=== PATIENT | male | born 1950 | race Caucasian/White ===

== ENCOUNTER → 2017-04-21 15:57 | Outpatient (CLI) | payer OTHER, SELFPAY | PROVIDERS: Visit Provider Internal Medicine Pulmonary Disease | DX: J47.9 Bronchiectasis, uncomplicated (principal); J18.9 Pneumonia, unspecified organism | CPT/HCPCS: 87070; 87077; 87186; 87205 ==

== ENCOUNTER → 2017-06-06 10:54 | Outpatient (CLI) | payer OTHER, SELFPAY ==
--- NOTE | 2017-06-06 10:57 | RAD_ITS ---
STUDY: X-RAY - LUMBAR SPINE REASON FOR EXAM: Male, 66 years old. Radiculopathy. Pain in the left leg. TECHNIQUE: 4 view(s) of the lumbar spine were obtained. COMPARISON: Lumbar spine, April 11, 2015. FINDINGS: Normal lumbar lordosis. There is a mild dextroscoliosis unchanged from prior study. There is a normal alignment of the vertebrae. Normal vertebral bodies and endplates. There is multi-level degenerative disc disease with multi-level disc space narrowing. This is most marked at L2-3 and L5-S1. This appears unchanged from previous examination There is no evidence of acute fracture or loss of vertebral axial height. There is degenerative disc disease without demonstrated spondylolysis of the pars interarticulares. There is atherosclerotic calcification of the abdominal aorta without a demonstrated aneurysm. RAD/L/S Spine Min 4 Views IMPRESSION: Stable degenerative changes on the lumbar spine. Electronically Signed: Rafael Manley DO at 18:01 EDT Tel [phone], Service support ,
== END ==
PROVIDERS: Family Provider Internal Medicine; PCP Internal Medicine; Visit Provider Internal Medicine
DX: M54.16 Radiculopathy, lumbar region (principal)
CPT/HCPCS: 72110

== ENCOUNTER → 2017-06-10 13:32 | Outpatient (CLI) | payer OTHER, SELFPAY | PROVIDERS: Family Provider Internal Medicine; PCP Internal Medicine; Visit Provider Internal Medicine Pulmonary Disease | DX: J47.9 Bronchiectasis, uncomplicated (principal); J45.909 Unspecified asthma, uncomplicated | CPT/HCPCS: 87070; 87205 ==

== ENCOUNTER → 2017-08-02 07:17 | Outpatient (CLI) | payer OTHER, SELFPAY ==
--- NOTE | 2017-08-02 07:18 | ECHOD_ITS ---
Version 2 Reason For Study: CAD Procedure This was a 2D Doppler, Color Flow transthoracic echocardiogram. Contrast injection was performed. The study was technically difficult. Exam performed in department. Left Ventricle Normal LV size. Segmental dysfunction with preserved ejection fraction (see wall motion). The estimated ejection fraction is 60 %. Normal diastology for age. Infero-Basal: Hypokinetic. Right Ventricle Normal RV size. Normal systolic function. Atria Normal left atrium. Normal right atrium. No doppler evidence for ASD. Mitral Valve There is no mitral annular calcification. Normal mitral valve. Trivial mitral valve insufficiency. Tricuspid Valve Normal tricuspid valve. Trivial tricuspid valve insufficiency. Right ventricular systolic pressure estimated to be 30 mmHg. Aortic Valve Trisinus/trileaflet aortic valve. Normal aortic valve. Pulmonic Valve The pulmonic valve is not well visualized. Mild (1+) pulmonic valve insufficiency. Great Vessels Normal sized aortic root. Pericardium/Pleural No pericardial effusion. Medication Diluted definity 6ml given slow IV push to enhance endocardial definition. MMode/2D Measurements & Calculations LVIDd: 4.5 cm IVSd: 1.00 cm Ao root diam: 3.7 cm LVIDs: 3.2 cm LVPWd: 1.2 cm FS: 29.8 % LAV(MOD-sp4): 51.3 ml EDV(MOD-sp4): 111.3 ml EDV(MOD-sp2): 96.6 ml ESV(MOD-sp4): 36.0 ml EF(MOD-sp2): 72.0 % EF(MOD-sp4): 67.6 % SV(MOD-sp4): 75.2 ml SV(MOD-sp2): 69.5 ml LA A4 area: 19.2 cm2 RA A4 area: 20.2 cm2 Doppler Measurements & Calculations MV E max st[place]ford: 68.0 cm/sec Lat Peak E' [place]: 10.7 cm/sec Med Peak E' [place]: 8.8 cm/sec MV A max [place]: 53.3 cm/sec E/E' lat: 6.3 E/E' med: 7.7 MV E/A: 1.3 Ao V2 max: 125.6 cm/sec LV V1 max: 116.7 cm/sec PA V2 max: 97.9 cm/sec Ao max P.3 mmHg LV V1 max P.4 mmHg TR max stanford: 261.3 cm/sec TR max P.5 mmHg Interpretation Summary The study was technically difficult. Contrast injection was performed. Segmental dysfunction with preserved ejection fraction (see wall motion). The estimated ejection fraction is 60 %. Trivial mitral valve insufficiency. Trivial tricuspid valve insufficiency. Mild (1+) pulmonic valve insufficiency. Right ventricular systolic pressure estimated to be 30 mmHg. Normal diastology for age. Ordering Physician: Remigio Lares Referring Physician: CALEB STEPHENS Performed By: Barbara Castrejon, MORE, RVT
--- NOTE | 2017-08-02 16:54 | STRESSREP_ITS ---
Stress Test Report Date: 02/09/2018 Procedure: Exercise tolerance test/imaging study Indications: Shortness of breath/dyspnea; CAD; status post PCI Consent: Per the patient Procedure: The patient exercised on a Robin protocol for 4 minutes and 30 seconds completing Stage I and 1 minute 30 seconds of Stage II achieving a peak heart rate of 115 bpm (83 % predicted maximal heart rate) with a peak blood pressure 148/74 mmHg and a peak MET capacity of 6 METs. The baseline ECG demonstrated normal sinus rhythm; right bundle branch block pattern. The peak exercise ECG demonstrated no obvious ECG changes. There was an isolated PVC at peak recovery. The functional capacity was considered decreased. There was no complaint of chest discomfort during exercise or recovery. The examination was discontinued secondary to dyspnea and leg discomfort. Impression: 1. Technically inadequate (percent predicted maximal heart rate less than 85%) exercise tolerance test 2. Peak exercise ECG with no obvious ECG changes 3. There was an isolated PVC at peak recovery. 4. Pharmacologic (Regadenoson) evaluation pending Procedure: Pharmacologic stress nuclear imaging study Indications: Shortness of breath/dyspnea; CAD; status post PCI Consent: Per the patient Procedure: The patient underwent pharmacologic (Regadenoson) evaluation with a peak heart rate of 90 beats per minute (57 predicted maximal heart rate) and a peak blood pressure of 116/74 mmHg. The baseline ECG demonstrated normal sinus rhythm; right bundle branch block pattern. The peak pharmacologic ECG demonstrated no obvious ECG changes. There were no cardiac dysrhythmias pretest, during pharmacologic infusion, or recovery. There was no complaint of chest discomfort during pharmacologic infusion or recovery. The examination was discontinued secondary to completion of protocol. Impression: 1. Pharmacologic (Regadenoson) evaluation 2. Peak pharmacologic ECG with no obvious ECG changes. 3. There were no cardiac dysrhythmias pretest, during pharmacologic infusion, or recovery 4. Nuclear images pending Myocardial perfusion imaging study: Technique: The patient was injected with 14.9 millicuries of technetium 99m Cardiolite and subsequently rest SPECT Cardiolite nuclear imaging was obtained in the horizontal long, vertical long, and short axis views. The patient underwent exercise tolerance test on a Robin protocol for 4 minutes and 30 seconds completing Stage I and 1 minute 30 seconds of Stage II achieving a peak heart rate of 115 bpm (73% predicted maximal heart rate) with a peak blood pressure 148/74 mmHg and a peak MET capacity of approximately 6 METs. The patient underwent pharmacologic (Regadenoson) evaluation with a peak heart rate of 90 beats per minute (57 % percent predicted maximal heart rate) and a peak blood pressure of 116/74 mmHg. The patient was injected with 44.9 millicuries of technetium 99m Cardiolite and subsequently stress SPECT Cardiolite nuclear imaging was obtained in the horizontal long, vertical long, and short axis views. A gated Cardiolite study at peak stress was obtained. Interpretation: Rest and stress SPECT Cardiolite nuclear imaging status post realignment, normalization, and attenuation correction demonstrates areas of diminished myocardial perfusion/tracer uptake in portions of the basal inferoseptal and basal inferior segments extending to the mid inferior segments without significant change between rest and stress, which, status post stress appears to be more prominent in the mid towards distal inferior/inferior apical segments. Status post attenuation correction there appears to be evidence of extra cardiac/gastrointestinal tracer uptake near the inferior segments with otherwise relative uniform tracer uptake at rest and stress with the exception of status post stress and area of diminished tracer uptake in the inferior apical segments. There is end systolic thickening and brightening. The gated Cardiolite study demonstrates myocardial thickening and inward wall motion. The reported LVEF is 72 %. Impression: 1. Rest and stress SPECT Cardiolite nuclear imaging demonstrate, between pre- attenuation and post attenuation correction, a discrepancy with respect to the myocardial perfusion/tracer uptake in portions of the inferior and inferior apical segments at rest and status post stress being more prominent on the pre- attenuation correction images suggesting a potential area of previous myocardial injury/infarction with post stress images appearing compatible with associated stress-induced myocardial ischemia and portions of the mid to distal inferior and inferoapical segments versus the post attenuation correction imaging suggesting a post stress imaging appearing potentially compatible with stress-induced myocardial ischemia in the inferior apical segments. Note, shifting soft tissue/diaphragmatic attenuation cannot necessarily be excluded. 2. The gated Cardiolite study reports an LVEF of 72 %. This note was generated with [employer] software. It may contain incorrect words, spelling, and punctuation that were not noted in checking the note before signing.
== END ==
PROVIDERS: Family Provider Internal Medicine; PCP Internal Medicine; Visit Provider Internal Medicine Cardiovascular Disease
DX: I25.10 Atherosclerotic heart disease of native coronary artery without angina pectoris (principal); Z95.5 Presence of coronary angioplasty implant and graft
CPT/HCPCS: 78452; 93017; 93306; A9500; Q9957; A4216; C8929; J2785

== ENCOUNTER → 2017-08-08 19:23 | Outpatient (CLI) | payer OTHER, SELFPAY | PROVIDERS: Visit Provider Internal Medicine Pulmonary Disease | DX: J40 Bronchitis, not specified as acute or chronic (principal) | CPT/HCPCS: 87070; 87101; 87106; 87205 ==

== ENCOUNTER → 2017-08-11 15:01 | Outpatient (CLI) | payer OTHER, SELFPAY ==
--- NOTE | 2017-08-11 15:10 | RAD_ITS ---
STUDY: X-RAY CHEST REASON FOR EXAM: Male, 66 years old. Heart catheterization 08/17/2017. Shortness of breath. TECHNIQUE: PA and lateral chest. COMPARISON: 02/10/2017. FINDINGS: The lungs are clear and expanded. Normal cardiomediastinal silhouette, deborah and pleural margins. No acute osseous or upper abdominal process. RAD/Chest PA and Lateral IMPRESSION: No acute cardiopulmonary process. Electronically Signed: Will Guerrero, at 15:48 EDT Tel , Service support ,
== END ==
PROVIDERS: Family Provider Internal Medicine; PCP Internal Medicine; Visit Provider Internal Medicine Cardiovascular Disease
DX: R06.02 Shortness of breath (principal); I25.10 Atherosclerotic heart disease of native coronary artery without angina pectoris; I10 Essential (primary) hypertension; R94.39 Abnormal result of other cardiovascular function study; Z95.5 Presence of coronary angioplasty implant and graft
CPT/HCPCS: 71046

== ENCOUNTER 2017-08-17 07:15 | Day surgery (SDC) | payer OTHER, SELFPAY ==
[2017-08-11 16:01] LABS: Hematocrit 38.6 % (40-54); Hemoglobin 12.8 g/dl (13.0-16.5); Mean Corp Hgb Conc 33.2 g/gl (32-36); Mean Corpuscular Hgb 30.7 pg (27.0-32.0); Mean Corpuscular Volume 92.6 fL (80-94); Mean Platelet Vol. 8.7 fl (6.2-12.0); Platelet Count 245 K/mm3 (150-450); Red Blood Count 4.17 M/mm3 (4.6-6.2); White Blood Count 9.6 K/mm3 (4.4-11.0)
[2017-08-11 16:12] LABS: International Normalized Ratio 0.9; Partial Thromboplast Time 26.1 Seconds (24.1-36.2); Prothrombin Time (Protime)PT. 12.5 SECONDS (11.7-14.9)
[2017-08-11 16:14] LABS: Scan Indicated on CBC? Y/N NO
[2017-08-11 16:25] LABS: Anion Gap 4 (5-15); BUN 17 mg/dL (7-18); BUN/Creat Ratio 21.5 RATIO (10-20); Calcium,Total 8.5 mg/dL (8.5-10.1); Chloride 104 mmol/L (98-107); Creatinine, Serum 0.79 mg/dL (0.70-1.30); EST Glomerular Filtration Rate 105 mL/min (>60); Est Glom Filt Rate - Afr Amer 127 mL/min (>60); Glucose 116 mg/dL (74-106); Potassium 4.3 mmol/L (3.5-5.1); Sodium Level 135 mmol/L (136-145)
[2017-08-16 08:44] VITALS: BMI 38.7
--- NOTE | 2017-08-17 09:14 | PCM.HP.BLA ---
Problem List (1) Abnormal stress test Status: Acute (2) Atherosclerotic heart disease of [place] coronary artery without angina pectoris Status: Chronic Qualifiers: [place] vs. transplanted heart: [place] heart Qualified Code(s): I25.10 - Atherosclerotic heart disease of [place] coronary artery without angina pectoris Comment: PTCA/RINA to Prox LAD 08/11/05 (3) Presence of stent in coronary artery Status: Chronic Comment: PTCA/RINA to Prox LAD 08/11/05 (4) Hyperlipidemia Status: Chronic Qualifiers: (5) Hypertension Status: Chronic Qualifiers: History and Physical Date of Admission: 08/17/17 Date: 08/17/2017 Precardiac catheterization history of present illness: Up-to-date This is a 66-year-old white male with a past medical history of underlying CAD status post LAD PCI who presents for evaluation of his underlying cardiovascular disease, shortness of breath/dyspnea with exertion, and an abnormal exercise tolerance test/imaging study. The patient has previously been diagnosed with CAD. Based upon previous cardiovascular noninvasive and invasive studies he was found to have angiographically significant LAD disease for which she underwent PTCA/stent. He states he has been having shortness of breath and dyspnea with exertion. He recently underwent noninvasive cardiovascular evaluation. He had a transthoracic echocardiogram performed. His left ventricle was noted to have left ventricular regional wall motion abnormalities with an LVEF of 60%. There was trivial MR and TR and mild TN. His estimated RV systolic pressure was 30 mmHg. He underwent a previous exercise tolerance test/imaging study on 08/02/2017. This was a combination exercise tolerance test and subsequent pharmacologic stress nuclear imaging study. His exercise tolerance test demonstrated he had a technically in adequate exercise tolerance test based upon percent predicted maximal heart rate being less than 85%. Thus he underwent a pharmacologic stress nuclear imaging study. His nuclear images demonstrated a discrepancy between pre-attenuation and post attenuation correction. The pre-attenuation correction raise concerns of possible previous myocardial injury/infarction involving portions of the inferior and inferior apical segments as well as findings compatible with associated stress-induced myocardial ischemia and portions of the mid to distal inferior and inferior apical segments with the post attenuation correction imaging suggesting stress-induced myocardial ischemia in the inferior apical segments. His gated LVEF reported at 72%. He was recommended for further evaluation with diagnostic cardiac catheterization. The procedure and risks were discussed with him. He was agreeable to this approach. He has previously denied ongoing chest discomfort orthopnea or PND, near syncope or syncope. He has attributed his symptoms to concerns of underlying COPD. For past medical history, family history, social history, please see previously dictated out the patient ZAMZAM from 07/14/2017. Review of systems: Upon review of systems the patient admitted to shortness of breath/dyspnea with exertion as well as concerns of an underlying activity related dull chest discomfort. Physical examination: HEENT: Pupils equal round reactive to light and extraocular muscles are intact Lungs: Clear to auscultation bilaterally Cardiovascular: Regular rate and rhythm with a normal S1 and S2 Abdomen: Positive bowel sounds, soft, nontender, Extremities: No obvious peripheral pitting edema Laboratory studies: Outpatient ECG demonstrated sinus rhythm with left axis deviation and right bundle branch block pattern Transthoracic echocardiogram as noted above Exercise tolerance test as noted above Impression and plan: 1. Abnormal exercise tolerance test At the present time the patient does have an abnormal exercise tolerance test. This is concerning for his underlying CAD process. He will continue medical management and proceed with further evaluation with diagnostic cardiac catheterization as noted above. 2. CAD status post LAD PCI The patient will need to continue risk factor modification and medical management. Based on his symptoms and his concerning exercise tolerance test he will undergo further evaluation with diagnostic cardiac catheterization. 3. Hyperlipidemia The patient will continue risk factor modification medical management. 4. Hypertension The patient's blood pressures will be monitored. He will continue medical therapy as deemed appropriate. 5. COPD The patient does have underlying COPD. This may be a contributing factor to his oongoing symptoms, etc. However based on the aforementioned concerns he will continue evaluation care as noted above. The above was discussed with the patient. He was agreeable to this approach. This note was generated with [employer] dictation software. It may contain incorrect words, spelling, and punctuation that were not noted in checking the note before signing.
--- NOTE | 2017-08-17 09:25 | HP.PCM_ITS ---
Problem List (1) Abnormal stress test Status: Acute (2) Atherosclerotic heart disease of [place] coronary artery without angina pectoris Status: Chronic Qualifiers: [place] vs. transplanted heart: [place] heart Qualified Code(s): I25.10 - Atherosclerotic heart disease of [place] coronary artery without angina pectoris Comment: PTCA/RINA to Prox LAD 08/11/05 (3) Presence of stent in coronary artery Status: Chronic Comment: PTCA/RINA to Prox LAD 08/11/05 (4) Hyperlipidemia Status: Chronic Qualifiers: (5) Hypertension Status: Chronic Qualifiers: History and Physical Date of Admission: 08/17/17 Date: 08/17/2017 Precardiac catheterization history of present illness: Up-to-date This is a 66-year-old white male with a past medical history of underlying CAD status post LAD PCI who presents for evaluation of his underlying cardiovascular disease, shortness of breath/dyspnea with exertion, and an abnormal exercise tolerance test/imaging study. The patient has previously been diagnosed with CAD. Based upon previous cardiovascular noninvasive and invasive studies he was found to have angiographically significant LAD disease for which she underwent PTCA/stent. He states he has been having shortness of breath and dyspnea with exertion. He recently underwent noninvasive cardiovascular evaluation. He had a transthoracic echocardiogram performed. His left ventricle was noted to have left ventricular regional wall motion abnormalities with an LVEF of 60%. There was trivial MR and TR and mild AL. His estimated RV systolic pressure was 30 mmHg. He underwent a previous exercise tolerance test/imaging study on 08/02/2017. This was a combination exercise tolerance test and subsequent pharmacologic stress nuclear imaging study. His exercise tolerance test demonstrated he had a technically in adequate exercise tolerance test based upon percent predicted maximal heart rate being less than 85%. Thus he underwent a pharmacologic stress nuclear imaging study. His nuclear images demonstrated a discrepancy between pre-attenuation and post attenuation correction. The pre-attenuation correction raise concerns of possible previous myocardial injury/infarction involving portions of the inferior and inferior apical segments as well as findings compatible with associated stress-induced myocardial ischemia and portions of the mid to distal inferior and inferior apical segments with the post attenuation correction imaging suggesting stress-induced myocardial ischemia in the inferior apical segments. His gated LVEF reported at 72%. He was recommended for further evaluation with diagnostic cardiac catheterization. The procedure and risks were discussed with him. He was agreeable to this approach. He has previously denied ongoing chest discomfort orthopnea or PND, near syncope or syncope. He has attributed his symptoms to concerns of underlying COPD. For past medical history, family history, social history, please see previously dictated out the patient ZAMZAM from 07/14/2017. Review of systems: Upon review of systems the patient admitted to shortness of breath/dyspnea with exertion as well as concerns of an underlying activity related dull chest discomfort. Physical examination: HEENT: Pupils equal round reactive to light and extraocular muscles are intact Lungs: Clear to auscultation bilaterally Cardiovascular: Regular rate and rhythm with a normal S1 and S2 Abdomen: Positive bowel sounds, soft, nontender, Extremities: No obvious peripheral pitting edema Laboratory studies: Outpatient ECG demonstrated sinus rhythm with left axis deviation and right bundle branch block pattern Transthoracic echocardiogram as noted above Exercise tolerance test as noted above Impression and plan: 1. Abnormal exercise tolerance test At the present time the patient does have an abnormal exercise tolerance test. This is concerning for his underlying CAD process. He will continue medical management and proceed with further evaluation with diagnostic cardiac catheterization as noted above. 2. CAD status post LAD PCI The patient will need to continue risk factor modification and medical management. Based on his symptoms and his concerning exercise tolerance test he will undergo further evaluation with diagnostic cardiac catheterization. 3. Hyperlipidemia The patient will continue risk factor modification medical management. 4. Hypertension The patient's blood pressures will be monitored. He will continue medical therapy as deemed appropriate. 5. COPD The patient does have underlying COPD. This may be a contributing factor to his oongoing symptoms, etc. However based on the aforementioned concerns he will continue evaluation care as noted above. The above was discussed with the patient. He was agreeable to this approach. This note was generated with [employer] dictation software. It may contain incorrect words, spelling, and punctuation that were not noted in checking the note before signing.
--- NOTE | 2017-08-17 10:25 | CL.D_ITS ---
Patient Name: YUMIKO TAN Study Date: 08/17/2017 Performing: Remigio Lares MD Ht: 70.07 inches 178 cm : 1950 Wt: 268.96 lbs 122 kg Age: 66 Gender: male BSA: 2.37 PROCEDURE(S) PERFORMED [id number]/LV CLINICAL PROFILE AND INDICATIONS Indications: Suspected CAD Heart Failure: None Stress/Imaging Stress Test w/SPECT MPI: Yes Result: PositiveStress Test with SPECT MPI: Positive Angina Classification Anginal Classification w/in 2 Weeks: CCS III CAD Presentations: Stable angina. CONCLUSIONS Elevated Left Ventricular End Diastolic Pressure Normal LV size, wall motion,and systolic function LVEF: by LV gram 65 % Andreafski Multivessel CAD LAD stent: patent DX stent: patent RECOMMENDATIONS Risk factor modification Medical therapy DESCRIPTION OF PROCEDURE The patient arrived to the procedure lab. The risks and benefits of the procedure as well as a full d escription of our services here and current unavailability of surgical backup were fully explained to the patient and/or their significant other prior to the catheterization. The Timeout was completed, verifying the correct patient and procedure. The patient's procedural site was prepped and draped in the usual fashion. Local anesthetic was given subcutaneously to right groin region with Lidocaine 2%. Using a modified Seldinger technique, arterial access was obtained via the right femoral artery, a 4 Fr sheath was inserted Left Coronary Artery selective angiography was performed in multiple views us ing a 4 Fr. JL5 catheter. Right Coronary Artery selective angiography was then performed in multiple views using a 4 Fr. 3DRC catheter. Left Ventriculography was performed in MELLO projection using a 4 Fr . Pigtail catheter. LV to AO pullback pressures were then recorded.The arterial sheath was pulled and manual compression applied until hemostasis is achieved.. The arterial sheath was pulled and manual compression applied until hemostasis is achieved. CORONARY ANGIOGRAPHY DOMINANCE: Right Dominant LEFT HEART ASSESSMENT Left Ventricular Ejection Fraction: by LV Gram 65 % Normal LV wall motion Elevated Left Ventricular End Diastolic Pressure LVEDP: 25 mmHg LEFT MAIN: Angiographically normal LEFT ANTERIOR DECENDING ARTERY: MID LAD: Previously placed stent appears oversized and is patent with minimal luminal irregularities. DIAGONAL 1: Proximal - Previously placed stent is patent with minimal luminal irregularities CIRCUMFLEX ARTERY: PROX CIRC: Mild calcification, Mild luminal irregularities RIGHT CORONARY ARTERY: Mild luminal irregularities VALVE FINDINGS: Normal Aortic Valve function Normal Mitral Valve function AORTIC ROOT: Angiographically normal COMPLICATIONS No Complications PROCEDURE MEDICATIONS Versed 1 mg IV Versed 1 mg IV Oxygen: 2 L/min via nasal cannula Solu-medrol 125 mg IV 08/17/2017 09:24:57 SUMMARY OF HEMODYNAMIC DATA Time AIR REST ECG 07:38:05 ECG 07:38:34 AO 113/70 (88) SA 09:52:16 LV 127/17, 35 10:00:24 LV 120/4, 25 10:00:32 LV 121/33, 44 10:01:23 LV 120/12, 30 10:01:30 LVp 118/4, 25 10:01:35 AOp 122/67 (91) 10:01:40 Signed By Remigio Lares MD On 08/17/2017 10:24:19 Remigio Lares MD
== END 2017-08-17 15:00 | disposition home or self-care (01) ==
LOC: CLSP 07:16
PROVIDERS: Family Provider Internal Medicine; PCP Internal Medicine; Visit Provider Internal Medicine Cardiovascular Disease
DX: R94.39 Abnormal result of other cardiovascular function study (principal); I25.119 Atherosclerotic heart disease of native coronary artery with unspecified angina pectoris; J44.9 Chronic obstructive pulmonary disease, unspecified; I10 Essential (primary) hypertension; E78.5 Hyperlipidemia, unspecified; R06.02 Shortness of breath; Z95.5 Presence of coronary angioplasty implant and graft
CPT/HCPCS: 36415; 80048; 85027; 85610; 85730; 93458; 99152; 99153; J7040; C1769; C1894; Q9967

== ENCOUNTER → 2017-08-25 14:20 | Outpatient (CLI) | payer OTHER, SELFPAY ==
[2017-08-25 15:53] LABS: AST(SGOT) 20 U/L (15-37); Alanine Aminotransfer ALT/SGPT 27 U/L (16-61); Alkaline Phosphatase 53 U/L (45-117); Anion Gap 6 (5-15); BUN 10 mg/dL (7-18); BUN/Creat Ratio 10.6 RATIO (10-20); Bilirubin, Direct 0.13 mg/dL (0.00-0.30); Calcium,Total 8.6 mg/dL (8.5-10.1); Chloride 102 mmol/L (98-107); Cholesterol 145 mg/dL (200); Creatinine, Serum 0.94 mg/dL (0.70-1.30); EST Glomerular Filtration Rate 86 mL/min (>60); Est Glom Filt Rate - Afr Amer 104 mL/min (>60); Globulin 4.3 g/dL (2.2-4.2); Glucose 98 mg/dL (74-106); High Density Lipoprotein 47 mg/dL; Potassium 4.1 mmol/L (3.5-5.1); Protein, Total 7.3 g/dL (6.4-8.2); Sodium Level 137 mmol/L (136-145); Triglycerides 111 mg/dL; Very Low Density Lipoprotein 22 mg/dL (5-40)
== END ==
PROVIDERS: Family Provider Internal Medicine; PCP Internal Medicine; Visit Provider Internal Medicine Cardiovascular Disease
DX: I25.111 Atherosclerotic heart disease of native coronary artery with angina pectoris with documented spasm (principal); I10 Essential (primary) hypertension; E78.5 Hyperlipidemia, unspecified; R94.39 Abnormal result of other cardiovascular function study; Z95.5 Presence of coronary angioplasty implant and graft
CPT/HCPCS: 36415; 80048; 80061; 80076

== ENCOUNTER → 2017-09-05 16:44 | Outpatient (CLI) | payer OTHER, SELFPAY ==
[2017-09-05 17:27] LABS: Absolute Lymphocyte Count 1.98 X10^3/ul (0.83-4.51); Absolute Neutrophil Count 8.1 X10^3/uL (2.0-7.7); Basophil# 0.01 X10^3/uL; Basophil% 0.1 % (0-1); Eosinophil# 0.03 X10^3/uL; Eosinophils% 0.3 % (0-5); Hematocrit 40.7 % (40-54); Hemoglobin 13.7 g/dl (13.0-16.5); Lymphocyte # 1.98 X10^3/ul (4.0); Lymphocyte % 18.4 % (19-41); Mean Corp Hgb Conc 33.7 g/gl (32-36); Mean Corpuscular Hgb 30.4 pg (27.0-32.0); Mean Corpuscular Volume 90.2 fL (80-94); Mean Platelet Vol. 8.4 fl (6.2-12.0); Monocyte# 0.55 X10^3/uL; Monocyte% 5.1 % (0-10); Neutrophil # 8.13 X10^3/uL (2.7-7.7); Neutrophil % 75.6 % (47-70); Platelet Count 338 K/mm3 (150-450); RBC Distribution Width CV 13.9 % (11.6-14.6); RBC Distribution Width SD 44.7 fl (35.1-43.9); Red Blood Count 4.51 M/mm3 (4.6-6.2); White Blood Count 10.8 K/mm3 (4.4-11.0)
[2017-09-05 17:31] LABS: POSITIVE COUNT NO; POSITIVE DIFFERENTIAL NO; POSITIVE MORPHOLOGY NO
[2017-09-05 17:45] LABS: ALB/GLOB Ratio 0.9 RATIO (0.9-2.4); AST(SGOT) 13 U/L (15-37); Alanine Aminotransfer ALT/SGPT 28 U/L (16-61); Albumin, Serum 3.4 g/dL (3.2-5.0); Alkaline Phosphatase 51 U/L (45-117); Anion Gap 10 (5-15); BUN 15 mg/dL (7-18); Calcium,Total 8.6 mg/dL (8.5-10.1); Chloride 100 mmol/L (98-107); Cholesterol 169 mg/dL (200); Creatinine, Serum 0.83 mg/dL (0.70-1.30); EST Glomerular Filtration Rate 98 mL/min (>60); Est Glom Filt Rate - Afr Amer 119 mL/min (>60); Globulin 3.8 g/dL (2.2-4.2); Glucose 105 mg/dL (74-106); High Density Lipoprotein 70 mg/dL; Protein, Total 7.2 g/dL (6.4-8.2); Sodium Level 137 mmol/L (136-145); Triglycerides 67 mg/dL; Very Low Density Lipoprotein 13 mg/dL (5-40)
[2017-09-05 17:46] LABS: Hemoglobin A1c 6.2 % (4.2-6.3)
[2017-09-05 18:01] LABS: Microalbumin,Random Urine 5.6 mg/L (NO RANGE EST.); Microalbumin:Creatinine Ratio 10.1 mg/g CRE (<30 mg/g CRE)
== END ==
PROVIDERS: Family Provider Internal Medicine; PCP Internal Medicine; Visit Provider Internal Medicine
DX: E78.4 Other hyperlipidemia (principal); I10 Essential (primary) hypertension; R73.02 Impaired glucose tolerance (oral)
CPT/HCPCS: 36415; 80053; 80061; 82043; 82570; 83036; 85025

== ENCOUNTER → 2017-09-09 18:50 | Outpatient (CLI) | payer OTHER, SELFPAY | PROVIDERS: Family Provider Internal Medicine; PCP Internal Medicine; Visit Provider Internal Medicine | DX: J47.9 Bronchiectasis, uncomplicated (principal); J45.40 Moderate persistent asthma, uncomplicated | CPT/HCPCS: 87070; 87077; 87101; 87106; 87205 ==

== ENCOUNTER → 2017-09-16 10:08 | Outpatient (CLI) | payer OTHER, SELFPAY ==
--- NOTE | 2017-09-16 10:11 | CDU_ITS ---
Reason For Study: stenosis Rt. Velocities/BP Lt. Velocities/BP Prox CCA 82.7/10.6 cm/sec. Prox CCA 76.2/19.36 cm/sec. Mid CCA 75.0/14.7 cm/sec. Mid CCA 68.6/14.7 cm/sec. Dist CCA 48.3/9.82 cm/sec. Dist CCA 63.9/18.8 cm/sec. Prox ICA 39.7/14.1 cm/sec. Prox ICA 53.0/15.7 cm/sec. Mid ICA 55.0/20.8 cm/sec. Mid ICA 63.6/22.8 cm/sec. Dist ICA 64.4/23.2 cm/sec. Dist ICA 66.8/24.4 cm/sec. Rt. ICA/CCA = 64.4/75.0=0.86. Lt. ICA/CCA = 66.8/68.6=0.97. Prox ECA 79.7/10.6 cm/sec. Prox ECA 75.0/12.9 cm/sec. Rt. Vert. 42.0/13.4 cm/sec. Lt. Vert. 38.1/12.2 cm/sec. Right Extracranial There is homogeneous, smooth atherosclerotic plaque noted in the right common carotid artery. There is homogeneous, smooth atherosclerotic plaque noted in the right internal carotid artery. There is intimal thickening but no significant atherosclerotic plaque noted in the right external carotid artery. Antegrade flow is noted in the right vertebral artery. Left Extracranial There is intimal thickening but no significant atherosclerotic plaque noted in the left common carotid artery. There is homogeneous, smooth atherosclerotic plaque noted in the left internal carotid artery. There is homogeneous, smooth atherosclerotic plaque noted in the left external carotid artery. Antegrade flow is noted in the left vertebral artery. Procedure Carotid Duplex 39812. The study was technically difficult. Exam performed in department. Interpretation Summary Mild (<50%) stenosis right extracranial internal carotid. Mild (<50%) stenosis left extracranial internal carotid. Flow within the vertebral arteries is antegrade bilaterally. Ordering Physician: Adelaida Fraga Referring Physician: Adelaida Fraga V Performed By: Nilda Rahman, MORE, RVT
== END ==
PROVIDERS: Family Provider Internal Medicine; PCP Internal Medicine; Visit Provider Internal Medicine
DX: I65.29 Occlusion and stenosis of unspecified carotid artery (principal)
CPT/HCPCS: 93880

== ENCOUNTER → 2017-09-23 11:20 | Outpatient (CLI) | payer MEDICARE, OTHER, SELFPAY ==
[2017-09-23 14:32] LABS: BUN 9 mg/dL (7-18); Creatinine, Serum 0.97 mg/dL (0.70-1.30); EST Glomerular Filtration Rate 83 mL/min (>60); Est Glom Filt Rate - Afr Amer 100 mL/min (>60)
[2017-09-27 15:27] LABS: Acetylcholine Receptor Binding < 0.03 nmol/L (0.00-0.24)
== END ==
PROVIDERS: Family Provider Internal Medicine; PCP Internal Medicine; Visit Provider Ophthalmology
DX: H53.2 Diplopia (principal); G70.00 Myasthenia gravis without (acute) exacerbation
CPT/HCPCS: 36415; 82565; 84238; 84520

== ENCOUNTER → 2017-09-26 13:15 | Outpatient (CLI) | payer MEDICARE, OTHER, SELFPAY ==
--- NOTE | 2017-09-26 13:29 | MRI_ITS ---
STUDY: MRI BRAIN WITH AND WITHOUT CONTRAST REASON FOR EXAM: Male, 67 years old. Diplopia possible brain lesion or luminal mass TECHNIQUE: Standardized multiplanar fat and water weighted pulse sequences were obtained. 12 ml of Gadavist contrast material was administered intravenously for the contrast portion of the examination. COMPARISON: None. FINDINGS: Mild atrophy and minor periventricular white matter ischemic changes without evidence for restricted diffusion... Dilated cavum septum lucidum which is normal developmental variant Normal bilateral basal ganglia. Normal thalami. There is no extra-axial fluid accumulation. Normal flow voids within the major intracranial circulation suggesting patency by spin echo criteria. Normal venous enhancement. There is no enhancing intra-axial or extra-axial abnormality. There is asymmetric tortuosity of the left cavernous carotid of uncertain clinical significance. Normal sella turcica, pituitary gland, infundibular stalk, optic chiasm and hypothalamus. Normal tectal plate and pineal gland. Normal midbrain, seymour and medulla. Normal cerebellum. Normal basal cisterns. Normal bilateral temporal bones. Normal bilateral internal auditory canals. No demonstrated orbital abnormality, within the constraints of a routine brain study. Minor mucosal thickening within the ethmoid sinuses.. Normal calvarium and skull base. Normal visualized soft tissue structures. Normal visualized upper cervical spine. MRI/Brain W/WO Contrast IMPRESSION: Mild atrophy and minor periventricular white matter ischemic changes without evidence for acute infarct.. Normal symmetric appearance to the orbits Incidental finding of asymmetric tortuosity of the left cavernous carotid of uncertain clinical significance Electronically Signed: Rodney Sarah MD at 16:39 EDT , Service support ,
== END ==
PROVIDERS: Family Provider Internal Medicine; PCP Internal Medicine; Visit Provider Ophthalmology
DX: H53.2 Diplopia (principal)
CPT/HCPCS: 70553; A9585

== ENCOUNTER → 2017-10-08 10:26 | Outpatient (CLI) | payer MEDICARE, OTHER, SELFPAY ==
[2017-10-12 20:07] LABS: Aspirgillus flavus Negative (Neg:<1:1); Aspirgillus fumigatus Negative (Neg:<1:1); Aspirgillus niger Negative (Neg:<1:1); Immunoglobulin E 19 IU/mL (0-100)
[2017-10-13 08:20] LABS: Immunoglobulin G 702 mg/dL (700-1600)
== END ==
PROVIDERS: Family Provider Internal Medicine; PCP Internal Medicine; Visit Provider Internal Medicine Pulmonary Disease
DX: J45.909 Unspecified asthma, uncomplicated (principal); J47.9 Bronchiectasis, uncomplicated; R84.6 Abnormal cytological findings in specimens from respiratory organs and thorax
CPT/HCPCS: 36415; 82784; 82785; 86606

== ENCOUNTER → 2017-12-05 17:24 | Outpatient (CLI) | payer MEDICARE, OTHER, SELFPAY ==
[2017-12-05 18:02] LABS: Absolute Lymphocyte Count 1.76 X10^3/ul (0.83-4.51); Absolute Neutrophil Count 3.1 X10^3/uL (2.0-7.7); Basophil# 0.02 X10^3/uL; Basophil% 0.4 % (0-1); Eosinophil# 0.19 X10^3/uL; Eosinophils% 3.4 % (0-5); Hematocrit 39.3 % (40-54); Lymphocyte # 1.76 X10^3/ul (4.0); Lymphocyte % 31.2 % (19-41); Mean Corp Hgb Conc 33.1 g/gl (32-36); Mean Corpuscular Hgb 30.6 pg (27.0-32.0); Mean Corpuscular Volume 92.5 fL (80-94); Mean Platelet Vol. 8.6 fl (6.2-12.0); Monocyte# 0.54 X10^3/uL; Monocyte% 9.6 % (0-10); Neutrophil # 3.13 X10^3/uL (2.7-7.7); Neutrophil % 55.2 % (47-70); Platelet Count 174 K/mm3 (150-450); RBC Distribution Width CV 14.2 % (11.6-14.6); RBC Distribution Width SD 47.4 fl (35.1-43.9); Red Blood Count 4.25 M/mm3 (4.6-6.2); White Blood Count 5.7 K/mm3 (4.4-11.0)
[2017-12-05 18:06] LABS: POSITIVE COUNT NO; POSITIVE DIFFERENTIAL NO; POSITIVE MORPHOLOGY NO
[2017-12-05 18:32] LABS: AST(SGOT) 17 U/L (15-37); Alanine Aminotransfer ALT/SGPT 27 U/L (16-61); Albumin, Serum 3.3 g/dL (3.2-5.0); Alkaline Phosphatase 53 U/L (45-117); Anion Gap 9 (5-15); BUN 13 mg/dL (7-18); BUN/Creat Ratio 11.6 RATIO (10-20); Calcium,Total 8.5 mg/dL (8.5-10.1); Chloride 100 mmol/L (98-107); Cholesterol 145 mg/dL (200); Creatinine, Serum 1.12 mg/dL (0.70-1.30); EST Glomerular Filtration Rate 70 mL/min (>60); Est Glom Filt Rate - Afr Amer 85 mL/min (>60); Globulin 3.4 g/dL (2.2-4.2); Glucose 108 mg/dL (74-106); High Density Lipoprotein 53 mg/dL; Potassium 4.1 mmol/L (3.5-5.1); Protein, Total 6.7 g/dL (6.4-8.2); Sodium Level 137 mmol/L (136-145); Triglycerides 120 mg/dL; Very Low Density Lipoprotein 24 mg/dL (5-40)
== END ==
PROVIDERS: Family Provider Internal Medicine; PCP Internal Medicine; Referring Provider Internal Medicine; Visit Provider Internal Medicine
DX: E78.49 Other hyperlipidemia (principal); R73.02 Impaired glucose tolerance (oral); J45.40 Moderate persistent asthma, uncomplicated; Z12.5 Encounter for screening for malignant neoplasm of prostate
CPT/HCPCS: 36415; 80053; 80061; 83036; 84153; 85025; G0103

== ENCOUNTER → 2018-03-10 11:56 | Outpatient (CLI) | payer MEDICARE, OTHER, SELFPAY ==
[2018-01-10 10:18] VITALS: BMI 40.1
--- NOTE | 2018-03-10 12:08 | RAD_ITS ---
STUDY: X-RAY - RIGHT WRIST REASON FOR EXAM: Male, 67 years old. Pain. TECHNIQUE: 3 view(s) of the wrist were obtained. COMPARISON: None. FINDINGS: Normal visualized distal radius and ulna. Normal radiocarpal articulation. Normal distal radioulnar articulation. Normal carpal bones. Normal carpal articulations. Normal carpometacarpal articulation of the thumb. Normal second through fifth carpometacarpal articulations. Normal visualized metacarpal bones. The soft tissue structures are unremarkable. Calcified radial and ulnar arteries. RAD/Wrist min 3 Views IMPRESSION: Normal x-ray examination of the wrist. Electronically Signed: Donnell Bliss MD at 14:33 EST , Service support ,
--- NOTE | 2018-03-10 12:08 | RAD_ITS ---
STUDY: X-RAY - LEFT KNEE REASON FOR EXAM: Male, 67 years old. Pain. TECHNIQUE: 5 view(s) of the knee. COMPARISON: None. FINDINGS: Normal visualized distal femur. Normal visualized proximal tibia and fibula. Normal proximal tibiofibular articulation. There is no demonstrated fracture. Normal medial femorotibial compartment. Normal lateral femorotibial compartment. Normal patellofemoral articulation. There is no demonstrated joint effusion. The soft tissue structures are unremarkable. RAD/Knee 4 or More Views IMPRESSION: Normal x-ray examination of the knee. Electronically Signed: Donnell Bliss MD at 14:04 EST , Service support ,
--- OUTSIDE RECORDS SUMMARY | 2018-05-15 00:17 | XMS RPT_ITS | Continuity of Care Document ---
:1950 Author Organization [facility] Address [address] [place] [address] Phone Care Team Providers Name Role Phone Adelaida Fraga DO Unavailable Remigio Lares MD Unavailable Tawanda Alonso Unavailable [facility] Unavailable Eliana Carter Unavailable Unavailable Leigh Ann Polk Unavailable Unavailable Mary Ann Sampson Unavailable Unavailable Tracey Young LPN Unavailable Unavailable Unavailable Unavailable Problems Name Dates Details Abnormal blood chemistry (R79.9, 790.6) Status: Active Abnormal glucose tolerance test (R73.09, 790.22) Comments: someimprovement - try to get back to exercise and cut back on processed carbs Status: Active Abnormal lung sounds (R09.89, 786.7) Status: Active Acute bronchitis (J20.9, 466.0) Status: Active Acute recurrent maxillary sinusitis (J01.01, 461.0) Status: Active Anemia, unspecified (D64.9, 285.9) Status: Active Anxiety and depression (F41.9, 300.00) Status: Active Arteriosclerosis of carotid artery, bilateral (I65.23, 433.10) Comments: risk factor modificaiton Status: Active Asthma with acute exacerbation (J45.901, 493.92) Status: Active Asthma, intrinsic, with status asthmaticus (J45.902, 493.11) Comments: stable Status: Active Benign prostatic hyperplasia with lower urinary tract symptoms, unspecified morphology (N40.1, 600.01) Status: Active BMI 37.0-37.9, adult (Z68.37, V85.37) Status: Active BMI 40.0-44.9, adult (Z68.41, V85.41) Status: Active BMI 40.0-44.9, adult (Z68.41, V85.41) Status: Active Bronchiectasis (J47.9, 494.0) Comments: chronic stable-continue present regimenencoruage use mucinex Status: Active Bronchitis, acute (J20.9, 466.0) Status: Active Bronchitis, acute (J20.9, 466.0) Status: Active Carpal tunnel syndrome, unspecified laterality (G56.00, 354.0) Status: Active Colon polyp (K63.5, 211.3) Comments: colonsoocpy 09/05- polyps - repeat 5 years [facility] Status: Active Coronary artery disease (I25.10, 414.00) Comments: chronic stable-continue present regimen Status: Active Cough (R05, 786.2) Status: Active Cough (R05, 786.2) Status: Active Deep vein thrombosis of lower extremity (I82.409, 453.40) Comments: awaiting hypercoag labs Status: Active Diplopia (H53.2, 368.2) Comments: he seeing Dr Tineo today- need to make sure not stroke we discussed Status: Active Dizziness and giddiness (R42, 780.4) Status: Active Dysthymic disorder (F34.1, 300.4) Status: Active Dysuria (R30.0, 788.1) Status: Active Dysuria (R30.0, 788.1) Status: Active Encounter for screening for malignant neoplasm of prostate (Renamed from Screening for prostate cancer) (Z12.5, V76.44) Status: Active Encounter for screening for malignant neoplasm of prostate (Renamed from Screening for prostate cancer) (Z12.5, V76.44) Status: Active Encounter for screening for malignant neoplasm of prostate (Renamed from Screening for prostate cancer) (Z12.5, V76.44) Status: Active Enlarged prostate with lower urinary tract symptoms (N40.1, 600.01) Comments: chronic stable-continue present regimen Status: Active Essential hypertension (I10, 401.9) Comments: chronic stable-continue present regimen Status: Active Fatigue (R53.83, 780.79) Status: Active Flu-like symptoms (R68.89, 780.99) Status: Active Gastroesophageal reflux disease without esophagitis (K21.9, 530.81) Comments: chronic stable-continue present regimen Status: Active Heart disease, unspecified (I51.9, 429.9) Status: Active Hip pain, chronic, left (M25.552, 719.45) Status: Active History of colon polyps (Z86.010, V12.72) Comments: due 2020 Status: Active Hypertension, benign (I10, 401.1) Comments: chronic stable-continue present regimen Status: Active Iron deficiency (E61.1, 280.9) Comments: better Status: Active Lumbar radiculopathy (M54.16, 724.4) Status: Active Lymphadenitis, unspecified, except mesenteric (I88.9, 289.3) Status: Active [facility] Status: Active [facility] Status: Active Moderate persistent asthma with acute exacerbation (J45.41, 493.92) Comments: on singulair, dulera, mitulsta Status: Active Moderate persistent asthma without complication (J45.40, 493.90) Comments: stablziing Status: Active Nonpsychotic mental disorder, 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, 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 Non-smoker (Z78.9, V49.89) Status: Active Obstructive sleep apnea, adult (G47.33, 327.23) Comments: chronic stable-continue present regimen Status: Active Oral thrush (B37.0, 112.0) Status: Active Other abnormal finding of urine (R82.99, 791.9) Comments: going to see urology Status: Active Other hyperlipidemia (E78.49, 272.4) Comments: at goal chronic stable-continue present regimen Status: Active Other intervertebral disc degeneration, lumbar region (M51.36, 722.52) Status: Active Other seborrheic keratosis (L82.1, 702.19) Status: Active Other symptoms involving cardiovascular system (R09.89, 785.9) Status: Active Pneumococcal vaccination given (Z23, V06.6) Status: Active 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, 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, 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) Status: Active SHORTNESS OF BREATH (Renamed from Breath shortness) (R06.02, 786.05) Status: Active Sinusitis, chronic (J32.9, 473.9) Status: Active Sleep disorder (G47.9, 780.50) Status: Active SOB (shortness of breath) on exertion (R06.02, 786.05) Status: Active Sore throat (J02.9, 462) Status: Active travel Status: Active Unspecified bacterial pneumonia (J15.9, 482.9) Status: Active Unspecified Diagnosis Status: Active Unspecified Diagnosis Status: Active Unspecified osteoarthritis, unspecified site (M19.90, 715.90) Status: Active Upper Respiratory Infection (Renamed from Infection of the upper respiratory tract) (J06.9, 465.9) Status: Active Urinary tract infection, site not specified (N39.0, 599.0) Status: Active Medications Name Dates Details Albuterol Sulfate (2.5 MG/3ML) 0.083% Inhalation Nebulization Solution 1 (one) Milliliter qd for 0 days Quantity: 1 {Milliliter} Refills: 0 Ordered:06-Jun-2017 Adelaida Fraga DO, DO, Debra A Start : 06-Jun-2017 Active AmLODIPine Besylate 5 MG Oral Tablet 1 (one) Tablet daily for 30 days Quantity: 30 {Tablet} Refills: 0 Ordered:09-Aug-2016 Adelaida Fraga DO, DO, Debra A Start : 09-Aug-2016 Active ASPIRIN, 81MG (Oral Tablet) 1 qd for 0 days Refills: 0 Ordered:22-Jan-2009 Mast RN, MandBrittneyctive Ativan 0.5 MG Oral Tablet 1 (one) Tablet qd, prn for 30 days Quantity: 30 {Tablet} Refills: 0 Ordered:03-Mar-2018 Adelaida Fraga DO, DO, Debra A Start : 03-Mar-2018 Active Comments:thirtyAnxiety/Depression F41.9340,411,000 - OD risk 100 Azelastine HCl 0.1 % Nasal Solution 1-2 sprays each nostril Soluti Solution daily for 90 days Quantity: 3 {Turkey} Refills: 5 Ordered:31-Oct-2017 Fast DO, Adelaida AFast DO, Adelaida A Start : 31-Oct-2017 Active BusPIRone HCl 30 MG Oral Tablet 1 Tablet bid for 90 days Quantity: 180 {Tablet} Refills: 3 Ordered:28-Feb-2018 Fast DO, Adelaida AFast DO, Adelaida A Start : 28-Feb-2018 Active Cyclobenzaprine HCl 10 MG Oral Tablet 1 (one) Tablet daily, prn for 30 days Quantity: 30 {Tablet} Refills: 1 Ordered:09-Jan-2018 Eliana Carter Start : 09-Jan-2018 End : 06-Sep-2017 Active Dulera 200-5 MCG/ACT Inhalation Aerosol 2 puffs Aerosol bid for 30 days Quantity: 3 {Inhaler} Refills: 3 Ordered:19-May-2017 Fast DO, Adelaida AFast DO, Adelaida A Start : 19-May-2017 Active Effexor XR 150 MG Oral Capsule Extended Release 24 Hour 1 cap Capsule daily for 0 days Quantity: 90 {Capsule} Refills: 3 Ordered:28-Nov-2017 Fast DO, Adelaida AFast DO, Adelaida A Start : 28-Nov-2017 Active Effexor XR 75 MG Oral Capsule Extended Release 24 Hour 1 (one) Capsule ER 24HR qd for 0 days Quantity: 30 {Capsule} Refills: 4 Ordered:01-Aug-2017 Keyonna Coats MD Start : 01-Aug-2017 Active Flomax 0.4 MG Oral Capsule 1 (one) Capsule qd for 30 days Quantity: 30 {Capsule} Refills: 3 Ordered:06-Apr-2016 Fast DO, Adelaida AFast DO, Adelaida A Start : 06-Apr-2016 Active Hydrocodone-Acetaminophen 5-325 MG Oral Tablet 1 (one) Tablet q 6 hours prn for 0 days Quantity: 60 {Tablet} Refills: 0 Ordered:02-Nov-2017 Fast DO, Adelaida AFast DO, Adelaida A Start : 02-Nov-2017 Active Comments:sixtyDX: M54.16, M51.27985,411,000 - OD risk 100 Lunesta 3 MG Oral Tablet 1 (one) Tablet q hs for 30 days Quantity: 30 {Tablet} Refills: 2 Ordered:06-Mar-2018 DOManolocalin TOPETEtsefaye ACKERMAN Adelaida A Start : 06-Mar-2018 Active MetFORMIN HCl ER 500 MG Oral Tablet Extended Release 24 Hour 2 (two) Tablet ER 24HR qd for 0 days Quantity: 180 {Tablet} Refills: 3 Ordered:06-Sep-2017 Flakito ACKERMANManolocalin TOPETEManolo carlin DOa A Start : 06-Sep-2017 Active Myrbetriq 50 MG Oral Tablet Extended Release 24 Hour 1 tab Tablet ER 24HR daily for 90 days Quantity: 90 {Tablet} Refills: 2 Ordered:29-Aug-2017 Eliana Carter Start : 29-Aug-2017 Active NITRO-DUR, 0.6MG/HR (Transdermal Patch 24 Hour) 1 (one) Patch 24HR qd for 0 days Quantity: 30 {Unspecified} Refills: 0 Ordered:25-Jul-2013 Flakito ACKERMANAdelaida DO, Debra A Start : 25-Jul-2013 Active Protonix 40 MG Oral Tablet Delayed Release [address] bid for 0 days Quantity: 180 {Tablet} Refills: 3 Ordered:06-Jun-2017 Flakito ACKERMANManolocalin TOPETEtesfaye ACKERMAN Adelaida Layton Start : 06-Jun-2017 Active Proventil HFA 108 (90 Base) MCG/ACT Inhalation Aerosol Solution 2 (two) Aerosol Soln qid, prn for 30 days Quantity: 1 {Aerosol_Soln} Refills: 3 Ordered:06-Apr-2016 Flakito ACKERMANManolocalin TOPETEtesfaye ACKERMAN Adelaida A Start : 06-Apr-2016 Active Ranexa 500 MG Oral Tablet Extended Release 12 Hour 2 (two) Tablet ER 12HR bid for 0 days Quantity: 120 {Tablet} Refills: 0 Ordered:06-Apr-2016 Flakito ACKERMANManolocalin TOPETEtesfaye ACKERMAN Adelaida A Start : 06-Apr-2016 Active Rosuvastatin Calcium 40 MG Oral Tablet 1 (one) Tablet qd for 0 days Quantity: 30 {Tablet} Refills: 6 Ordered:20-Feb-2018 Adelaida DO, Debra A Start : 20-Feb-2018 Active Singulair 10 MG Oral Tablet 1 (one) Tablet qd for 0 days Quantity: 90 {Tablet} Refills: 2 Ordered:13-Feb-2018 Adelaida DO, Debra A Start : 13-Feb-2018 Active ASMANEX 120 METERED DOSES, 220MCG/INH (Inhalation Aerosol Powder Breath Activated) 2 (two) Aero Pow Br Act qd for 0 days Quantity: 1 {Aero_Pow_Br_Act} Refills: 3 Ordered:08-May-2007 Roberto Makeda Start : 08-May-2007 End : 08-Aug-2007 Inactive Comments:rinse mouth after use Atorvastatin Calcium 40 MG Oral Tablet 1 (one) Tablet Tablet qd for 0 days Quantity: 30 {Tablet} Refills: 3 Ordered:06-Sep-2017 DO, Adelaida AFtesfaye DO, Adelaida A Start : 27-Jun-2017 End : 06-Sep-2017 Inactive AUGMENTIN, 875-125MG (Oral Tablet) 1 (one) Tablet BID for 14 days Quantity: 28 {Tablet} Refills: 0 Ordered:12-Jun-2012 DO, Adelaida DO, Adelaida A Start : 12-Jun-2012 End : 26-Jun-2012 Inactive BETHANECHOL CHLORIDE, 25MG (Oral Tablet) 1 tab tid for 0 days Refills: 0 Ordered:14-Sep-2010 Karely Williamson LPN End : 14-Sep-2010 Inactive BIAXIN, 500MG (Oral Tablet) 1 (one) Tablet bid for 0 days Quantity: 20 {Tablet} Refills: 0 Ordered:12-Jun-2012 Leigh Ann Polk Start : 18-Oct-2011 End : 12-Jun-2012 Inactive BUSPAR, 10MG (Oral Tablet) 2 BID (10 MG) Inactive CELEXA, 40MG (Oral Tablet) 1 (one) Tablet qd for 0 days Quantity: 30 {Tablet} Refills: 2 Ordered:05-Nov-2010 Yola Sampson LPN Start : 02-Oct-2010 End : 05-Nov-2010 Inactive CRESTOR, 40MG (Oral Tablet) 1 (one) Tablet qod for 0 days Quantity: 15 {Tablet} Refills: 3 Ordered:20-Mar-2013 SILVIA Lancaster Start : 05-Mar-2013 End : 20-Mar-2013 Inactive Comments:alternate with 20mg(per hans at [facility] - was not fillable if more than 1qd and would require pa at [phone] or [phone] - sent in this way to see if will process -- no id number was given = Karely Diflucan 150 MG Oral Tablet 1 (one) Tablet daily for 7 days Quantity: 7 {Tablet} Refills: 0 Ordered:28-Jan-2017 Adelaida Fraga DOtesfaye Adelaida A Start : 28-Jan-2017 End : 04-Feb-2017 Inactive Comments:hold atorvastatin while on DIFLUCAN, 150MG (Oral Tablet) 1 Tablet qd for 0 days Quantity: 10 {Tablet} Refills: 0 Ordered:08-Mar-2011 Leigh Ann Polk Start : 26-Jan-2011 End : 08-Mar-2011 Inactive GLYCOLAX (Oral Powder) 17 grams Powder qd for 0 days Quantity: 30 {Powder} Refills: 3 Ordered:08-Aug-2007 Yola Sampson LPN Start : 08-Aug-2007 End : 12-Aug-2008 Inactive GUAIATUSSIN AC, 100-10MG/5ML (Oral Syrup) 1 Syrup 1 tsp at hs prn for 0 days Quantity: 6 {Ounce(s)} Refills: 0 Ordered:19-Feb-2008 Yola Sampson LPN Start : 19-Feb-2008 End : 12-Aug-2008 Inactive HYDROCODONE-ACETAMINOPHEN, 5-325MG (Oral Tablet) 1 (one) Tablet q 6hrs, prn for 30 days Quantity: 60 {Tablet} Refills: 0 Ordered:05-Sep-2012 Adelaida Fraga DOtesfaye Adelaida A Start : 02-Aug-2012 End : 01-Sep-2012 Inactive Comments:SIXTY Levaquin 500 MG Oral Tablet 1 (one) Tablet daily for 5 days Quantity: 5 {Tablet} Refills: 0 Ordered:15-Jul-2017 Adelaida Fraga DOAdelaida carlin DO A Start : 15-Jul-2017 End : 20-Jul-2017 Inactive LEVOFLOXACIN, 500MG (Oral Tablet) 1 (one) Tablet daily for 7 days Quantity: 7 {Tablet} Refills: 0 Ordered:03-Sep-2013 Samantha Grewal CNP Start : 03-Sep-2013 End : 10-Sep-2013 Inactive LUNESTA, 2MG (Oral Tablet) 1 qhs / HS for 0 days Refills: 0 Ordered:29-Jan-2008 Makeda Mejia End : 06-Feb-2007 Inactive MACROBID, 100MG (Oral Capsule) 1 (one) Capsule Capsule bid [id number] for 21 days Quantity: 42 {Capsule} Refills: 0 Ordered:1-Dec-2014 Adelaida Fraga DO, DO, Adelaida Layton Start : 21-Jan-2014 End : 11-Feb-2014 Inactive MUCINEX, 600MG (Oral Tablet Extended Release 12 Hour) 1 Tablet ER 12HR bid for 14 days Refills: 0 Ordered:09-Mar-2010 Samantha Grewal CNP Start : 23-Feb-2010 End : 09-Mar-2010 Inactive NASACORT AQ, 55MCG/ACT (Nasal Aerosol Solution) 2 (two) Aerosol Soln daily for 0 days Quantity: 1 {Aerosol_Soln} Refills: 3 Ordered:05-Nov-2010 Yola Sampson LPN Start : 02-Sep-2010 End : 05-Nov-2010 Inactive NYSTATIN, [id number]/ML (Mouth/Throat Suspension) 10 cc tid for 0 days Quantity: 300 {Suspension} Refills: 0 Ordered:08-Mar-2011 Leigh Ann Polk Start : 25-Feb-2011 End : 08-Mar-2011 Inactive PLAVIX, 75MG (Oral Tablet) 1 qd for 0 days Refills: 0 Ordered:25-Sep-2012 Gabbi Luevano LPN End : 25-Sep-2012 Inactive PredniSONE 10 MG Oral Tablet 1 (one) Tablet TAD for 0 days Quantity: 18 {Tablet} Refills: 0 Ordered:20-Sep-2017 Adelaida Fraga DO, DO, Adelaida Layton Start : 06-Sep-2017 End : 20-Sep-2017 Inactive Comments:30mg daily x 3 days,20mg daily x 3 days,10 daily x 3 daysTake with food in am PREDNISONE, 20MG (Oral Tablet) 1 Tablet qd for 0 days Quantity: 2 {Tablet} Refills: 0 Ordered:02-Feb-2011 Gabbi Luevano LPN Start : 05-Nov-2010 End : 02-Feb-2011 Inactive REMERON, 30MG (Oral Tablet) 1 tab q hs (30 MG) Inactive SPIRIVA HANDIHALER, 18MCG (Inhalation Capsule) 1 (one) Capsule qd for 0 days Quantity: 1 {Capsule} Refills: 3 Ordered:08-Aug-2007 Makeda Mejia Start : 08-Aug-2007 End : 29-Jan-2008 Inactive TOPICORT, 0.25% (External Cream) 1 (one) Cream bid prn for 0 days Quantity: 60 {Cream} Refills: 0 Ordered:01-Dec-2009 Leigh Ann Polk Start : 07-Feb-2008 End : 01-Dec-2009 Inactive TOPROL XL, 50MG (Oral Tablet Extended Release 24 Hour) 1 qd for 0 days Refills: 0 Ordered:29-Jan-2008 Makeda Mejia End : 06-Feb-2007 Inactive TRANSDERM-SCOP, 1.5MG (Transdermal Patch 72 Hour) 1 Patch 72HR Patch 72HR 1 patch 4 hours prior and change q 72 hours for 0 days Quantity: 1 {Box(s)} Refills: 0 Ordered:03-Sep-2013 Gabbi Luevano LPN Start : 25-Dec-2012 End : 03-Sep-2013 Inactive WELLBUTRIN XL, 150MG (Oral Tablet Extended Release 24 Hour) 1 (one) Tablet ER 24HR qd for 0 days Quantity: 30 {Tablet_ER_24HR} Refills: 3 Ordered:01-Dec-2009 Leigh Ann Polk Start : 12-Aug-2008 End : 01-Dec-2009 Inactive WELLBUTRIN XL, 300MG (Oral Tablet Extended Release 24 Hour) 1 Tablet ER 24HR qd for 0 days Quantity: 30 {Tablet_ER_24HR} Refills: 3 Ordered:01-Dec-2009 Leigh Ann Polk Start : 29-Apr-2008 End : 01-Dec-2009 Inactive XYZAL, 5MG (Oral Tablet) 1 Tablet qd, prn for 0 days Quantity: 90 {Tablet} Refills: 1 Ordered:03-Sep-2013 Gabbi Luevano LPN Start : 22-Jun-2013 End : 03-Sep-2013 Inactive ZOSTAVAX, 31722WKR/0.65ML (Subcutaneous Solution Reconstituted) 1 For Solution sc one time only for 0 days Quantity: 1 {For_Solution} Refills: 0 Ordered:03-Sep-2013 Gabbi Luevano LPN Start : 20-Nov-2012 End : 03-Sep-2013 Inactive ABILIFY, 2MG (Oral Tablet) 1 tab daily (2 MG) End : 17-Jun-2014 Discontinued ADVAIR DISKUS, 250-50MCG/DOSE (Inhalation Aerosol Powder Breath Activated) 2 (two) Aero Pow Br Act puffs bid for 0 days Quantity: 1 {Aero_Pow_Br_Act} Refills: 1 Ordered:25-Dec-2012 Flakito ACKERMAN, Adelaida AFast DO, Adelaida A Start : 25-Dec-2012 End : 25-Dec-2012 Discontinued ADVAIR HFA, 230-21MCG/ACT (Inhalation Aerosol) 2 puffs Aerosol bid for 90 days Quantity: 3 {Inhaler} Refills: 3 Ordered:10-Apr-2014 Slarb 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, Tracey Start : 22-Jun-2013 End : 10-Apr-2014 Discontinued ATENOLOL, 50MG (Oral Tablet) 1 tab Tablet qd for 30 days Quantity: 30 {Tablet} Refills: 0 Ordered:10-Apr-2014 Slarb 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, Tracey Start : 12-Jun-2012 End : 10-Apr-2014 Discontinued Atorvastatin Calcium 80 MG Oral Tablet 1 (one) Tablet qd for 30 days Quantity: 30 {Tablet} Refills: 3 Ordered:06-Jun-2017 Flakito ACKERMAN, Adelaida AFast DO, Adelaida A Start : 06-Jun-2017 End : 06-Jun-2017 Discontinued CHERATUSSIN AC, 100-10MG/5ML (Oral Solution) 1-2 Teaspoon qhs prn for 0 days Quantity: 8 {Ounce} Refills: 0 Ordered:10-Jun-2014 Leigh Ann Polk Start : 10-Apr-2014 End : 10-Jun-2014 Discontinued CHERATUSSIN AC, 100-10MG/5ML (Oral Syrup) 1 (one) Teaspoon qhs prn for 0 days Quantity: 6 {Ounce} Refills: 0 Ordered:02-Jan-2014 Leigh Ann Polk Start : 03-Sep-2013 End : 02-Jan-2014 Discontinued CIPRO, 500MG (Oral Tablet) 1 Tablet bid for 0 days Quantity: 20 {Tablet} Refills: 0 Ordered:12-Jun-2012 Manolo Fraga DOa AFast DO, Adelaida A Start : 12-Jun-2012 End : 12-Jun-2012 Discontinued CIPROFLOXACIN HCL, 500MG (Oral Tablet) 1 (one) Tablet Tablet bid for 0 days Quantity: 28 {Tablet} Refills: 0 Ordered:02-Jan-2014 Leigh Ann Polk Start : 26-Nov-2013 End : 02-Jan-2014 Discontinued CLINDAMYCIN HCL, 300MG (Oral Capsule) 1 Capsule bid for 0 days Quantity: 20 {Capsule} Refills: 0 Ordered:25-Dec-2012 Fast DO, Adelaida AFast DO, Adelaida A Start : 25-Dec-2012 End : 25-Dec-2012 Discontinued CRESTOR, 40MG (Oral Tablet) 1 (one) Tablet qd for 0 days Quantity: 90 {Tablet} Refills: 3 Ordered:10-Jun-2014 Fast DO, Adelaida AFast DO, Adelaida A Start : 10-Jun-2014 End : 10-Jun-2014 Discontinued CYMBALTA, 60MG (Oral Capsule Delayed Release Particles) 2 (two) Capsule DR Part qd for 0 days Quantity: 60 {Capsule} Refills: 3 Ordered:10-Apr-2014 Slarb 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, Tracey Start : 29-Oct-2013 End : 10-Apr-2014 Discontinued Dymista 137-50 MCG/ACT Nasal Suspension 1 spray each nostril qd for 0 days Quantity: 2 {Turkey} Refills: 0 Ordered:11-Jun-2016 Leigh Ann Polk Start : 09-Jun-2016 End : 11-Jun-2016 Discontinued FLOMAX, 0.4MG (Oral Capsule Extended Release 24 Hour) 2 (two) Capsule ER 24HR qhs / HS for 0 days Quantity: 60 {Capsule_ER_24HR} Refills: 3 Ordered:18-Aug-2009 Leigh Ann Pokl Start : 18-Aug-2009 End : 01-Dec-2009 Discontinued Comments:This order discontinued per [facility]. FLONASE, 50MCG/ACT (Nasal Suspension) 2 sprays each nostril Suspension bid for 30 days Quantity: 1 {Suspension} Refills: 3 Ordered:02-Aug-2012 Fast DO, Adelaida AFast DO, Adelaida A Start : 02-Aug-2012 End : 02-Aug-2012 Discontinued FLOVENT HFA, 220MCG/ACT (Inhalation Aerosol) 2 (two) Aerosol bid for 0 days Quantity: 1 {Aerosol} Refills: 3 Ordered:02-Aug-2012 Fast DO, Adelaida AFast DO, Adelaida A Start : 02-Aug-2012 End : 02-Aug-2012 Discontinued Comments:please give spacer Hydrocodone-Acetaminophen 5-325 MG Oral Tablet 1 (one) Tablet Tablet q 6hrs, prn for 30 days Quantity: 60 {Tablet} Refills: 0 Ordered:06-Apr-2016 Leigh Ann Polk Start : 05-Jan-2016 End : 06-Apr-2016 Discontinued Comments:[facility]Britt[facility][id number]- df viewed and approved- gave scripts to pt while here-j 01/05/16 HYDROCODONE-ACETAMINOPHEN, 5-500MG (Oral Tablet) 1 tab Tablet q 6hrs, prn for 0 days Quantity: 60 {Tablet} Refills: 1 Ordered:15-Aug-2013 Leigh Ann Polk Start : 14-Aug-2013 End : 15-Aug-2013 Discontinued Comments:sixty ISOSORBIDE DINITRATE, 10MG (Oral Tablet) 1 bid for 0 days Refills: 0 Ordered:29-Jan-2008 Makeda Mejia End : 26-Sep-2006 Discontinued LEVAQUIN, 500MG (Oral Tablet) 1 (one) Tablet qd for 0 days Quantity: 7 {Tablet} Refills: 0 Ordered:25-Dec-2012 Fast DO, Adelaida AFast DO, Adelaida A Start : 25-Dec-2012 End : 25-Dec-2012 Discontinued LOVENOX, 120MG/0.8ML (Subcutaneous Solution) 1 inj bid (120 MG/0.8ML) End : 23-Sep-2014 Discontinued MECLIZINE HCL, 12.5MG (Oral Tablet) 1 prn for 0 days Refills: 0 Ordered:29-Jan-2008 Makeda Mejia End : 20-Apr-2007 Discontinued MYCELEX, 10MG (Mouth/Throat Chance) 5 Chance a day for 1 week for 0 days Quantity: 35 {Chance} Refills: 0 Ordered:20-Feb-2007 Makeda Mejia Start : 20-Feb-2007 End : 20-Apr-2007 Discontinued MYRBETRIQ, 25MG (Oral Tablet Extended Release 24 Hour) 1 tab daily (25 MG) End : 06-Jan-2015 Discontinued NIACIN, 500MG (Oral Capsule Extended Release) 2 (two) Capsule ER qd for 0 days Refills: 0 Ordered:08-May-2007 Makeda Mejia Start : 08-May-2007 End : 18-Oct-2007 Discontinued Niaspan 1000 MG Oral Tablet Extended Release 1 (one) Tablet ER qd for 0 days Quantity: 90 {Tablet} Refills: 3 Ordered:05-Jan-2016 Fast DO, Adelaida AFast DO, Adelaida A Start : 05-Jan-2016 End : 05-Jan-2016 Discontinued NITROGLYCERIN TRANSDERMAL, 0.2MG/HR (Transdermal Patch 24 Hour) 1 patch qd, take off q hs for 0 days Refills: 0 Ordered:12-Aug-2008 Flakito Adelaida DO, Debra A End : 25-Jul-2013 Discontinued Comments:This order discontinued per [facility]. OXYBUTYNIN CHLORIDE ER, 10MG (Oral Tablet Extended Release 24 Hour) 1 (one) Tablet ER 24HR qd for 0 days Quantity: 30 {Tablet} Refills: 0 Ordered:23-Sep-2014 Adelaida Fraga DO, DO, Debra A Start : 23-Sep-2014 End : 23-Sep-2014 Discontinued Paxil 20 MG Oral Tablet 2 1/2 Tablet qhs for 0 days Quantity: 90 {Tablet} Refills: 0 Ordered:06-Apr-2016 Leigh Ann Polk Start : 07-Oct-2015 End : 06-Apr-2016 Discontinued PHENERGAN, 12.5MG (Oral Tablet) 1 tab q 4-6hrs, prn for 0 days Refills: 0 Ordered:29-Jan-2008 Makeda Mejia End : 20-Apr-2007 Discontinued PREDNISONE (PHUC), 10MG (Oral Tablet) 1 (one) Tablet 2 bid x 2 days, 1 bid x 2 days 1/2 x 2 days for 0 days Quantity: 12 {Tablet} Refills: 0 Ordered:02-Jan-2014 Leigh Ann Polk Start : 03-Sep-2013 End : 02-Jan-2014 Discontinued Comments:take with food PREVACID, 30MG (Oral Capsule Delayed Release) [address] bid for 0 days Quantity: 60 {Capsule_DR} Refills: 2 Ordered:05-Oct-2010 Adelaida Fraga DO, DO, Debra A Start : 05-Oct-2010 End : 05-Oct-2010 Discontinued QVAR, 40MCG/ACT (Inhalation Aerosol Solution) 1 Aerosol Soln daily for 360 days Refills: 0 Ordered:06-Jan-2015 Adelaida DO, Debra A Start : 06-Jan-2015 End : 06-Jan-2015 Discontinued RAPAFLO, 8MG (Oral Capsule) 1 cap daily (8 MG) End : 06-Apr-2016 Discontinued Skelaxin 800 MG Oral Tablet 1 (one) Tablet daily, prn for 90 days Quantity: 90 {Tablet} Refills: 0 Ordered:29-Dec-2016 Leigh Ann Polk Start : 28-Dec-2016 End : 29-Dec-2016 Discontinued TOPICORT, 0.05% (External Ointment) 1 Ointment qday for 0 days Quantity: 30 {Ointment} Refills: 0 Ordered:27-Sep-2011 Leigh Ann Polk Start : 27-Sep-2011 End : 27-Sep-2011 Discontinued TRIAMCINOLONE ACETONIDE, 0.1% (External Cream) Cream BID for 0 days Quantity: 1 {Tube} Refills: 0 Ordered:02-May-2006 Makeda Mejia Start : 02-May-2006 End : 20-Apr-2007 Discontinued XANAX, 0.25MG (Oral Tablet) 1 qhs / HS for 0 days Refills: 0 Ordered:29-Jan-2008 Makeda Mejia End : 26-Sep-2006 Discontinued Xarelto 20 MG Oral Tablet 1 (one) Tablet Tablet qd with food for 0 days Quantity: 30 {Tablet} Refills: 2 Ordered:09-Aug-2016 Leigh Ann Polk Start : 27-Jan-2015 End : 09-Aug-2016 Discontinued XARELTO, 15MG (Oral Tablet) 1 (one) Tablet Tablet bid for 21 days with food for 0 days Quantity: 42 {Tablet} Refills: 0 Ordered:06-Jan-2015 Fast DOManoloa AFtesfaye DO, Adelaida A Start : 06-Jan-2015 End : 06-Jan-2015 Discontinued ZITHROMAX Z-PHUC, 250MG (Oral Tablet) tad Tablet qd for 0 days Quantity: 6 {Package} Refills: 0 Ordered:10-Apr-2014 Slarb ILDA Tracey Start : 06-Feb-2014 End : 10-Apr-2014 Discontinued ZOLOFT, 50MG (Oral Tablet) 1 (one) Tablet qd for 0 days Quantity: 30 {Tablet} Refills: 0 Ordered:20-Nov-2012 Fast DO Adelaida AFast DO, Adelaida A Start : 20-Nov-2012 End : 20-Nov-2012 Discontinued Allergies and Adverse Reactions Name Dates Details actifed (Allergy) Status: Active Comments: mood disorder Iodinated Contrast (Allergy) Status: Active Comments: Hives Penicillins (Allergy) Status: Active Comments: rash, sulfa didnt feel good Past Medical History Name Dates Details abdominal bloating Comments: think Ibs-- has had scope for this- start fiber Status: Inactive as of 31-Jul-2008 Abdominal pain, acute, generalized (R10.84, 789.07) Status: Resolved as of 07-Dec-2010 Abdominal pain, acute, right lower quadrant (R10.31, 789.03) Status: Resolved as of 07-Dec-2010 Abnormal chest xray (R93.89, 793.2) Status: Inactive as of 08-Jul-2017 Actinic keratosis (L57.0, 702.0) Comments: cryo x3 one on scalp two on right sabianist Status: Inactive as of 06-Jun-2017 Acute sinusitis, unspecified (J01.90, 461.9) 05-Nov-2010 Status: Resolved as of 02-Aug-2012 Allergic rhinitis (J30.9, 477.9) Comments: chronic stable-continue present regimen Status: Inactive as of 03-May-2017 Arthralgia (M25.50, 719.40) Status: Inactive as of 31-Jul-2008 axillary mass Status: Inactive as of 31-Jul-2008 b/l leg pain Status: Inactive as of 31-Jul-2008 Backache (M54.9, 724.5) Status: Inactive as of 03-May-2017 BMI 39.0-39.9,adult (Z68.39, V85.39) Status: Inactive as of 06-Jun-2017 BRONCHITIS, NOT SPECIFIED ACUTE OR CHRONIC (490.) (J40, 490) Status: Resolved as of 23-Sep-2014 BURSITIS OF HIP (726.5) Comments: gave him stretching exercises to do bid and if not better then consider injection or pt/ortholeft hip Status: Inactive as of 03-May-2017 Calcium kidney stone (N20.0, 592.0) Status: Inactive as of 20-Sep-2017 Candidiasis (B37.9, 112.9) Status: Resolved as of 23-Sep-2014 Candidiasis of mouth (B37.0, 112.0) Status: Inactive as of 31-Jul-2008 Cerumen impaction (H61.20, 380.4) Status: Resolved as of 25-Dec-2012 Chills (R68.83, 780.64) Status: Resolved as of 02-Jul-2013 Constipation (K59.00, 564.00) Status: Resolved as of 02-Jul-2013 Cough (R05, 786.2) 15-Oct-2011 Status: Resolved as of 06-Jan-2015 ecxematous dermatitis Status: Inactive as of 31-Jul-2008 Eczema (L30.9, 692.9) Comments: he will try otc cortaid - call no bettr Status: Inactive as of 31-Jul-2008 Encounter for hepatitis C virus screening test for high risk patient (Z11.59, V73.89) Status: Inactive as of 29-Mar-2017 excoriation Status: Resolved as of 12-Aug-2008 Fatigue (R53.83, 780.79) Status: Inactive as of 06-Jun-2017 fever Status: Inactive as of 31-Jul-2008 Hyperglycemia (R73.9, 790.29) Status: Inactive as of 18-Aug-2009 Left ankle pain (M25.572, 719.47) Status: Inactive as of 03-May-2017 Left flank pain (R10.9, 789.09) Status: Inactive as of 03-May-2017 Muscle weakness (M62.81, 728.87) Comments: off crestor Status: Resolved as of 23-Sep-2014 Myalgia and myositis (729.1) Status: Inactive as of 31-Jul-2008 near syncope Status: Inactive as of 31-Jul-2008 Need for pneumococcal vaccination (V03.82) Status: Inactive as of 25-Dec-2012 Need for prophylactic vaccination and inoculation against influenza (Z23, V04.81) Status: Inactive as of 25-Dec-2012 Neoplasm of uncertain behavior of skin (D48.5, 238.2) Comments: back for shave bx- 1 lesion- one was hyperkeratotic horn the other skin tag irritated - right forehead Status: Inactive as of 03-May-2017 Other symptoms and signs involving general sensations and perceptions (R44.8, 799.89) Comments: abn ct of abd/pelvis Status: Inactive as of 05-Jan-2016 Peripheral vascular disease (I73.9, 443.9) Status: Resolved as of 16-Mar-2010 Pharyngitis, acute (J02.9, 462) Status: Resolved as of 25-Dec-2012 PNEUMONIA D/T STREPTOCOCCUS GROUP A (482.31) Status: Resolved as of 08-Mar-2011 Rash (R21, 782.1) Status: Resolved as of 20-Nov-2012 recurrent uri Status: Inactive as of 25-Dec-2012 Screening for prostate cancer (Z12.5, V76.44) Status: Inactive as of 25-Dec-2012 Swelling of limb (M79.89, 729.81) Status: Inactive as of 29-Mar-2017 TESTICULAR SWELLING, NOS (608.89) Status: Resolved as of 12-Aug-2008 tongue burning Status: Inactive as of 31-Jul-2008 Tooth pain (525.9) Status: Resolved as of 20-Nov-2012 Wheezing (R06.2, 786.07) 02-Feb-2011 Status: Resolved as of 17-Jul-2014 Procedures Procedure Dates Details carpal tunnel bilateral Completed Colonic Polyps Completed Comments: Removed 2005 Colonoscopy Completed Comments: 2005 lithotripsy of kidney stone Completed parathryoid surgery age 20 - partial Completed right rotator cuff surgery Completed Stent placed 07-27 Completed Tonsillectomy Completed Date Value Details 10-Jan-2018 Cardiology Visit Report Result: Comments: See Note; NOTES: [facility] [address] [place] [address] OFFICE VISIT Date of Service: 01/10/18 MR#: [id number] Acct: [id number] Name: YUMIKO LANDRUM Rep #: [id number] : 1950 Provider: Sabra Leonard Age/Sex: 67/M Location: [facility] Status: Signed HPI HPI Details: YUMIKO LANDRUM, is a 67 M who presents to the office today for that recently reestablished with us. He has a history of underlying CAD status post LAD PCI in 2005. He also has a history of hypertension, prinzmetal angina and hyperlipidemia. From a cardiac standpoint, patient is doing well. He does not have any chest discomfort/heaviness/tightness. He does not have any worsening symptoms of shortness of breath. He denies any PND. He does not have any orthopnea. He does not hav e any symptoms of congestive heart failure. He does not have any palpitations that he is aware of. He does not have any lightheadedness or dizziness. He does not have any near-syncope or syncope. He blair s not have any lower extremity edema. He does not have any symptoms of claudication. 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 Accompanied by: None Is patient in pain?: No Allergies iodine Allergy (Verified 01/10/18 10:27) Rash, upset stomach, facia l swelling Penicillins Allergy (Verified 01/10/18 10:27) Rash pseudoephedrine HCl [From Actifed] Allergy (Verified 01/10/18 10:) mood changes triprolidine HCl [From Actifed] Allergy (Verified 01/10/18 10:) mood changes Medications Aspirin [Aspirin, Baby] 81 mg PO DAILY@0800 06/28/13 [History Confirmed 01/10/18] Montelukast [Singulair] 10 mg PO QHS 06/28/13 [History Confirmed 01/10/18] Pantopraz ole Sodium [Protonix] 40 mg PO BID 06/28/13 [History Confirmed 01/10/18] Amlodipine [Norvasc] 5 mg PO DAILY 10/18/13 [History Confirmed 01/10/18] albuterol sulfate 2.5 mg/3 mL (0.083 %) solution for neb ulization 1.25 mg INHALATION Q4H PRN 07/12/17 [History Confirmed 01/10/18] albuterol sulfate HFA 90 mcg/actuation aerosol inhaler 2 puff INHALATION Q4H PRN 07/12/17 [History Confirmed 01/10/18] azelasti ne 0.15 % (205.5 mcg) nasal spray 1 spray INTRANASAL BID 07/12/17 [History Confirmed 01/10/18] cyclobenzaprine 10 mg tablet 10 mg PO TID PRN 07/12/17 [History Confirmed 01/10/18] eszopiclone 3 mg tablet 3 mg PO QHS 07/12/17 [History Confirmed 01/10/18] hydrocodone 5 mg-acetaminophen 325 mg tablet 1 tab PO Q6H PRN 07/12/17 [History Confirmed 01/10/18] lorazepam 0.5 mg tablet 0.5 mg PO QDAY PRN tab 06/22 04/10 [History Confirmed 01/10/18] mirabegron ER 50 mg tablet,extended release 24 hr 50 mg PO QDAY 07/12/17 [History Confirmed 01/10/18] buspirone 10 mg tablet 30 mg PO BID tab 07/14/17 [History Confirme d 01/10/18] cholecalciferol (vitamin D3) 2,000 unit tablet 2,000 unit PO QDAY 07/14/17 [History Confirmed 01/10/18] fluticasone 200 mcg-vilanterol 25 mcg/dose powder for inhalation 1 inh INHALATION QDAY 07/14/17 [History Confirmed 01/10/18] lactobacillus combination no.8 3 billion cell capsule 3,000 mmu cells PO QDAY 07/14/17 [History Confirmed 01/10/18] multivitamin tablet 1 tab PO QDAY 07/14/17 [His tory Confirmed 01/10/18] rosuvastatin 40 mg tablet 40 mg PO QDAY 07/14/17 [History Confirmed 01/10/18] tamsulosin 0.4 mg capsule 0.4 mg PO DAILY cap 07/14/17 [History Confirmed 01/10/18] venlafaxine ER 150 mg capsule,extended release 24 hr 150 mg PO QHS 07/14/17 [History Confirmed 01/10/18] venlafaxine ER 75 mg capsule,extended release 24 hr 75 mg PO QAM cap 07/14/17 [History Confirmed 01/10/18] ranol azine ER 1,000 mg tablet,extended release,12 hr 1,000 mg PO BID #180 tab 10/27/17 [Rx Confirmed 01/10/18] nitroglycerin 0.6 mg/hr transdermal 24 hour patch 0.6 mg TRANSDERMAL DAILY #30 ea 11/22/17 [Rx C onfirmed 01/10/18] metformin ER 500 mg tablet,extended release 24 hr 1,000 mg PO QPM tab 01/10/18 [History Confirmed 01/10/18] Ejection fraction %: 60 to 64 PFSH Medical History SOB (shortness of br eath) (Acute) Abnormal stress test (Acute) Hyperlipidemia (Chronic) Hypertension (Chronic) Prinzmetal angina (Acute) Atherosclerotic heart disease of [place] coronary artery without angina pectoris (Sales Support Advisor allyssa) Anxiety (Chronic) Asthma (Chronic) BPH (benign prostatic hyperplasia) (Chronic) Bronchiectasis (Chronic) Depression (Chronic) GERD (gastroesophageal reflux disease) (Chronic) URIEL (obstructive sleep apnea) (Chronic) Surgical History Presence of stent in coronary artery (Chronic 08/11/05) Postsurgical percutaneous transluminal coronary angioplasty (PTCA) status (Chronic) History of carpal tunne l surgery (Resolved) History of lithotripsy (Resolved) History of parathyroid surgery (Resolved) History of rotator cuff surgery (Resolved) History of tonsillectomy (Resolved) Family History Father CA D (coronary artery disease) CVA (cerebral vascular accident) Hypertension Alzheimer's dementia Brother Rheumatoid arthritis Brother Cancer non hodgkins lymphoma Social History Smoking Status: Former brittney sharma how long ago did patient quit smokin years ago alcohol intake: current alcohol intake frequency: a few times a month Alcohol type: beer substance use type: does not use caffeine: Yes Type: co ffee Number of servings: 2 ROS Const Const: Negative for weakness, fatigue, fever(s) or headache(s) Eyes Eyes: Negative for blind spots, loss of peripheral vision or transient loss of vision ENT ENT : Negative for headache(s), dizziness, tinnitus or Nosebleed/epistaxis Cardio Chest Pain: No Palpitations: No Edema: None Muscle aches with walking: None Resp Respiratory: Negative for SOB with activity , SOB at rest, SOB orthopnea\SOB lying down or Cough GI GI: Negative nausea, vomiting, heartburn or vomiting blood/hematemesis : Negative for hematuria Musc Musc: Negative for muscle aches/ myalgia Neuro Neuro: Negative for weakness, headache(s), dizziness, near syncope, syncope, lightheadedness or orthostatic symptoms Compa Hematologic/Lymphatic: Negative for easy bleeding Endo Endo: Negative for fatigue Cardiology Exam Const Appearance: cooperative, no acute distress and well developed Orientation: alert, awake and oriented x3 Head Head: normocephalic and atraumatic Mouth: moist mucous membr anes Eyes General: appearance normal, both eyes and all related structures Conjunctivae: conjunctivae normal Pupils: PERRL EOM: EOM intact bilaterally Neck Neck: normal visual inspection, no lymphadenop athy and no JVD Carotids: Negative bruit Neck Mass: Negative Neck mass Chest Chest inspection: normal inspection of the chest and symmetric chest movement Auscultation: Bilateral: Clear to Auscultation Cardio Palpation: normal PMI Rate: regular rate Rhythm: regular rhythm Heart sounds: S1 normal and S2 normal; negative rub, gallop or murmur GI GI: normal to inspection, soft, no hepatosplenomegaly and bowel sounds present; negative tender Neuro General: alert, awake, oriented x3, CN's II-XI intact bilaterally and moves all extremities Extremities Pulses: Normal: Right Posterior Tibial Pulse, Left Pos terior Tibial Pulse, Right Radial Pulse, Left Radial Pulse Lower Extremity Edema: None: Bilateral Psych Psychological: normal affect Supplemental Info Echocardiogram in 2018 demonstrated: The study wa s technically difficult. Contrast injection was performed. Segmental dysfunction with preserved ejection fraction (see wall motion). The estimated ejection fraction is 60 %. Trivial mitral valve insuff iciency. Trivial tricuspid valve insufficiency. Mild (1+) pulmonic valve insufficiency. Right ventricular systolic pressure estimated to be 30 mmHg. Normal diastology for age. Stress test in 2018 demruperto kimball: Stress nuclear study: imaging concerning for changes in the inferior distribution. Heart cath in 2018 demonstrated: Elevated Left Ventricular End Diastolic Pressure Normal LV size, wall motio n,and systolic function LVEF: by LV gram 65 % [place] Multivessel CAD LAD stent: patent DX stent: patent RECOMMENDATIONS Risk factor modification Medical therapy Assessment AND Plan 1. Atheros clerosis of [place] coronary artery of [place] heart without angina pectoris I25.10 PTCA/RINA to Prox LAD 08/11/05 Plan Stable, from a cardiac standpoint patient does not have any symptoms of angina. We r ecommend that they continue with current aggressive medical management and risk factor modification. 2. Essential hypertension I10 Plan Well controlled on current medications. Will not make any adjustm ents. 3. Pure hypercholesterolemia E78.00; E78.0 Plan Laboratory Tests Cholesterol 145 LDL Cholesterol 68 HDL Cholesterol 53 Will not make any adjustments 4. Prinzmetal angina I20.1 Plan Pt has not needed to use any PRN NTG. It is controlled on Norvasc, Ranexa, NTG. Plan Detail Additional Comments Thank you for allowing us to participate in patient's plan of care, if you have any questions please do not hesitate to call. This note was generated using a voice recognition system and there may be incorrect words, spelling or punctuation errors that were not noted when reviewing the office note pr ior to saving. Follow Up 9 Months (MMM) Coding Level of Care Code Off vis,est,level 3 Diagnoses Atherosclerosis of [place] coronary artery of [place] heart without angina pectoris I25.10 [place] vs. tra nsplanted heart: [place] heart Essential hypertension I10 Hypertension type: essential hypertension Pure hypercholesterolemia E78.00; E78.0 Hyperlipidemia type: pure hypercholesterolemia Prinzmetal angin a I20.1 Coding Level of Care Code Off vis,est,level 3 Diagnoses Atherosclerosis of [place] coronary artery of [place] heart without angina pectoris I25.10 [place] vs. transplanted heart: [place] heart Es sential hypertension I10 Hypertension type: essential hypertension Pure hypercholesterolemia E78.00; E78.0 Hyperlipidemia type: pure hypercholesterolemia Prinzmetal angina I20.1 01/10/18 1104 &#6 0;Electronically signed by Sabra KENDALL> Date Sabra KENDALL Cosigner Signature: Date (if applicable) CC: Adelaida Fraga DO 26-Sep-2017 Brain W/WO Contrast Result: Comments: See Note; NOTES: [facility] Imaging Services [address] [place] [id number] Brain W/WO Contrast MR#: [id number] Acct: [id number] Name: YUMIKO LANDRUM Rep #: [id number] : 1950 M 67 From: Rodney Sarah MD PCP: Adelaida Fraga DO Status: REG CLI Study: Brain W/WO Contrast Date of Exam: 09/26/17 Exam# [id number] Ordering Dr: Perico Crowe MD STUDY: MRI BRAIN WITH AND WITHOUT CONTRAST REASON FOR EXAM: Male, 67 years old. Diplopia possible brain lesion or luminal mass TECHNIQUE: Standardized multiplanar fat and water weighted pulse sequences were obtained. 12 ml of Gadavist contrast material was administered intravenously for the contrast portion of the examination. COMPARISON: None. FINDINGS: Mild atrophy and minor perive ntricular white matter ischemic changes without evidence for restricted diffusion... Dilated cavum septum lucidum which is normal developmental variant Normal bilateral basal ganglia. Normal thalami. Th ere is no extra-axial fluid accumulation. Normal flow voids within the major intracranial circulation suggesting patency by spin echo criteria. Normal venous enhancement. There is no enhancing intra-ax ial or extra-axial abnormality. There is asymmetric tortuosity of the left cavernous carotid of uncertain clinical significance. Normal sella turcica, pituitary gland, infundibular stalk, optic chiasm and hypothalamus. Normal tectal plate and pineal gland. Normal midbrain, seymour and medulla. Normal cerebellum. Normal basal cisterns. Normal bilateral temporal bones. Normal bilateral internal auditory canals. No demonstrated orbital abnormality, within the constraints of a routine brain study. Minor mucosal thickening within the ethmoid sinuses.. Normal calvarium and skull base. Normal visualized so ft tissue structures. Normal visualized upper cervical spine. MRI/Brain W/WO Contrast IMPRESSION: Mild atrophy and minor periventricular white ma tter ischemic changes without evidence for acute infarct.. Normal symmetric appearance to the orbits Incidental finding of asymmetric tortuosity of the left cavernous carotid of uncertain clinical signi ficance Electronically Signed: Rodney Sarah MD at 16:39 EDT , Service support , CC: Perico Crowe MD; Adelaida Fraga DO Health Outcomes Liaison: Signed 17-Sep-2017 Carotid Duplex Ultrasound Result: Comments: See Note; NOTES: [facility] Cardiovascular Services [address] [place] [address] Carotid Duplex Ultrasound 09/16/17 1012 MR#: [id number] Acct: [id number] Name: YUMIKO MCCOLLUM Rep #: [id number] : 1950 66 From: Jung Garcia MD Attending Dr: Adelaida Fraga DO Status: REG CLI Ordering Dr: Adelaida Fraga DO Date: 09/16/17 Location: [facility] Sex: M C Admitted: Reason For Study: stenosis Rt. Velocities/BP Lt. Velocities/BP Prox CCA 82.7/10.6 cm/sec. Prox CCA 76.2/19.36 cm/sec. Mid CCA 75.0/14.7 cm/sec. Mid CCA 68.6/14.7 cm/sec. Dist CCA 48.3/9.82 cm/sec. Dist CCA 63 .9/18.8 cm/sec. Prox ICA 39.7/14.1 cm/sec. Prox ICA 53.0/15.7 cm/sec. Mid ICA 55.0/20.8 cm/sec. Mid ICA 63.6/22.8 cm/sec. Dist ICA 64.4/23.2 cm/sec. Dist ICA 66.8/24.4 cm/sec. Rt. ICA/CCA = 64.4/75.0=0. 86. Lt. ICA/CCA = 66.8/68.6=0.97. Prox ECA 79.7/10.6 cm/sec. Prox ECA 75.0/12.9 cm/sec. Rt. Vert. 42.0/13.4 cm/sec. Lt. Vert. 38.1/12.2 cm/sec. Right Extracranial There is homogeneous, smooth atheroscl erotic plaque noted in the right common carotid artery. There is homogeneous, smooth atherosclerotic plaque noted in the right internal carotid artery. There is intimal thickening but no significant ath erosclerotic plaque noted in the right external carotid artery. Antegrade flow is noted in the right vertebral artery. Left Extracranial There is intimal thickening but no significant atherosclerotic p laque noted in the left common carotid artery. There is homogeneous, smooth atherosclerotic plaque noted in the left internal carotid artery. There is homogeneous, smooth atherosclerotic plaque noted in the left external carotid artery. Antegrade flow is noted in the left vertebral artery. Procedure Carotid Duplex 68851. The study was technically difficult. Exam performed in department. Interpretati on Summary Mild (<50%) stenosis right extracranial internal carotid. Mild (<50%) stenosis left extracranial internal carotid. Flow within the vertebral arteries is antegrade bilaterally. Ordering Physician: Adelaida Fraga Referring Physician: Adelaida Fraga V Performed By: Nilda Rahman , RDCS, RVT 09/17/17 1511 Date Jung Garcia MD CC: Adelaida Fraga DO Date Dictated: 1012 Date Transcribed: 09/17/171510 Health Outcomes Liaison: Signed 17-Aug-2017 History and Physical Exam Result: Comments: See Note; NOTES: [facility] Medical Records Department [address] [place] [address] History and Physical 08/17/17913 MR#: [id number] Acct: [id number] Name: FRANCISCO E Rep #: [id number] : 1950 66 From: Remigio Lares MD PCP: Adelaida Fraga DO Status: REG [facility] [place] Location: [facility] Problem List (1) Abnormal stress test Status: Acute (2) Atherosclerotic heart d isease of [place] coronary artery without angina pectoris Status: Chronic Qualifiers: [place] vs. transplanted heart: [place] heart Qualified Code(s): I25.10 - Atherosclerotic heart disease of [place] coron elise artery without angina pectoris Comment: PTCA/RINA to Prox LAD 08/11/05 (3) Presence of stent in coronary artery Status: Chronic Comment: PTCA/RINA to Prox LAD 08/11/05 (4) Hyperlipidemia Status: Chr onic Qualifiers: (5) Hypertension Status: Chronic Qualifiers: History and Physical Date of Admission: 08/17/17 Date: 08/17/2017 Precardiac catheterization history of present illness: Up-to-date Citlalli lugo is a 66-year-old white male with a past medical history of underlying CAD status post LAD PCI who presents for evaluation of his underlying cardiovascular disease, shortness of breath/dyspnea with exe rtion, and an abnormal exercise tolerance test/imaging study. The patient has previously been diagnosed with CAD. Based upon previous cardiovascular noninvasive and invasive studies he was found to hav e angiographically significant LAD disease for which she underwent PTCA/stent. He states he has been having shortness of breath and dyspnea with exertion. He recently underwent noninvasive cardiovascul ar evaluation. He had a transthoracic echocardiogram performed. His left ventricle was noted to have left ventricular regional wall motion abnormalities with an LVEF of 60%. There was trivial MR and TR and mild OR. His estimated RV systolic pressure was 30 mmHg. He underwent a previous exercise tolerance test/imaging study on 08/02/2017. This was a combination exercise tolerance test and subsequent ph armacologic stress nuclear imaging study. His exercise tolerance test demonstrated he had a technically in adequate exercise tolerance test based upon percent predicted maximal heart rate being less varun n 85%. Thus he underwent a pharmacologic stress nuclear imaging study. His nuclear images demonstrated a discrepancy between pre-attenuation and post attenuation correction. The pre-attenuation correcti on raise concerns of possible previous myocardial injury/infarction involving portions of the inferior and inferior apical segments as well as findings compatible with associated stress-induced myocardi al ischemia and portions of the mid to distal inferior and inferior apical segments with the post attenuation correction imaging suggesting stress-induced myocardial ischemia in the inferior apical segm ents. His gated LVEF reported at 72%. He was recommended for further evaluation with diagnostic cardiac catheterization. The procedure and risks were discussed with him. He was agreeable to this approa ch. He has previously denied ongoing chest discomfort orthopnea or PND, near syncope or syncope. He has attributed his symptoms to concerns of underlying COPD. For past medical history, family history , social history, please see previously dictated out the patient [place] from 07/14/2017. Review of systems: Upon review of systems the patient admitted to shortness of breath/dyspnea with exertion as wel l as concerns of an underlying activity related dull chest discomfort. Physical examination: HEENT: Pupils equal round reactive to light and extraocular muscles are intact Lungs: Clear to auscultation bilaterally Cardiovascular: Regular rate and rhythm with a normal S1 and S2 Abdomen: Positive bowel sounds, soft, nontender, Extremities: No obvious peripheral pitting edema Laboratory studies: Outpa tient ECG demonstrated sinus rhythm with left axis deviation and right bundle branch block pattern Transthoracic echocardiogram as noted above Exercise tolerance test as noted above Impression and pl an: 1. Abnormal exercise tolerance test At the present time the patient does have an abnormal exercise tolerance test. This is concerning for his underlying CAD process. He will continue medical manag ement and proceed with further evaluation with diagnostic cardiac catheterization as noted above. 2. CAD status post LAD PCI The patient will need to continue risk factor modification and medical venkatesh gement. Based on his symptoms and his concerning exercise tolerance test he will undergo further evaluation with diagnostic cardiac catheterization. 3. Hyperlipidemia The patient will continue risk fa ctor modification medical management. 4. Hypertension The patient's blood pressures will be monitored. He will continue medical therapy as deemed appropriate. 5. COPD The patient does have underlyin g COPD. This may be a contributing factor to his oongoing symptoms, etc. However based on the aforementioned concerns he will continue evaluation care as noted above. The above was discussed with the lizbeth riggins. He was agreeable to this approach. This note was generated with [employer] dictation software. It may contain incorrect words, spelling, and punctuation that were not noted in checking the note bef ore signing. 08/17/17 0925 <Electronically signed by Remigio Lares MD> Date Remigio Lares MD Cosigner Signature: Date (if applicable) CC: Adelaida Fraga DO; Remigio Lares MD Signed 11-Aug-2017 Chest PA and Lateral Result: Comments: See Note; NOTES: [facility] Imaging Services [address] [place], [place] [address] [address] Chest PA and Lateral MR#: [id number] Acct: [id number] Name: YUMIKO LANDRUM Rep #: [id number] : 1950 M 66 From: Will Guerrero MD PCP: Adelaida Fraga DO Status: REG CLI Study: Chest PA and Lateral Date of Exam: 08/11/17 Exam# [id number] Ordering Dr: Remigio Lares MD STUDY: X-RAY RASHMI ST REASON FOR EXAM: Male, 66 years old. Heart catheterization 08/17/2017. Shortness of breath. TECHNIQUE: PA and lateral chest. COMPARISON: 02/10/2017. FINDINGS: The lungs are clear and expanded. Normal cardiomediastinal silhouette, deborah and pleural margins. No acute osseous or upper abdominal process. R AD/Chest PA and Lateral IMPRESSION: No acute cardiopulmonary process. Electronically Signed: Will Guerrero, at 15:48 EDT Tel , Service support , Fax CC: Adelaida Fraga DO; Remigio Lares MD Health Outcomes Liaison: Signed 02-Aug-2017 Stress Report Result: Comments: See Note; NOTES: [facility] Cardiovascular Services [address] [place] [address] MR#: [id number] Acct: [id number] Name: YUMIKO LANDRUM Rep #: [id number] : [birth year] 66 From: Remigio Lares MD Primary Care: Adelaida Fraga DO Status: REG CLI Ordering Dr: Marcellus Fernando Stress Test Report Date: 02/09/2018 Procedure: Exercise tolerance test/imaging study Indications : Shortness of breath/dyspnea; CAD; status post PCI Consent: Per the patient Procedure: The patient exercised on a Robin protocol for 4 minutes and 30 seconds completing Stage I and 1 minute 30 secon ds of Stage II achieving a peak heart rate of 115 bpm (83 % predicted maximal heart rate) with a peak blood pressure 148/74 mmHg and a peak MET capacity of 6 METs. The baseline ECG demonstrated normal sinus rhythm; right bundle branch block pattern. The peak exercise ECG demonstrated no obvious ECG changes. There was an isolated PVC at peak recovery. The functional capacity was considered decreased . There was no complaint of chest discomfort during exercise or recovery. The examination was discontinued secondary to dyspnea and leg discomfort. Impression: 1. Technically inadequate (percent pre dicted maximal heart rate less than 85%) exercise tolerance test 2. Peak exercise ECG with no obvious ECG changes 3. There was an isolated PVC at peak recovery. 4. Pharmacologic (Regadenoson) evaluation pending Procedure: Pharmacologic stress nuclear imaging study Indications: Shortness of breath/dyspnea; CAD; status post PCI Consent: Per the patient Procedure: The patient underwent pharmacologic (Regadenoson) evaluation with a peak heart rate of 90 beats per minute (57 predicted maximal heart rate) and a peak blood pressure of 116/74 mmHg. The baseline ECG demonstrated normal sinus rhythm; ri ght bundle branch block pattern. The peak pharmacologic ECG demonstrated no obvious ECG changes. There were no cardiac dysrhythmias pretest, during pharmacologic infusion, or recovery. There was no co mplaint of chest discomfort during pharmacologic infusion or recovery. The examination was discontinued secondary to completion of protocol. Impression: 1. Pharmacologic (Regadenoson) evaluation 2. P eak pharmacologic ECG with no obvious ECG changes. 3. There were no cardiac dysrhythmias pretest, during pharmacologic infusion, or recovery 4. Nuclear images pending Myocardial perfusion imaging study : Technique: The patient was injected with 14.9 millicuries of technetium 99m Cardiolite and subsequently rest SPECT Cardiolite nuclear imaging was obtained in the horizontal long, vertical long, and short axis views. The patient underwent exercise tolerance test on a Robin protocol for 4 minutes and 30 seconds completing Stage I and 1 minute 30 seconds of Stage II achieving a peak heart rate of 115 bpm (73% predicted maximal heart rate) with a peak blood pressure 148/74 mmHg and a peak MET capacity of approximately 6 METs. The patient underwent pharmacologic (Regadenoson) evaluation with a peak h eart rate of 90 beats per minute (57 % percent predicted maximal heart rate) and a peak blood pressure of 116/74 mmHg. The patient was injected with 44.9 millicuries of technetium 99m Cardiolite and sub sequently stress SPECT Cardiolite nuclear imaging was obtained in the horizontal long, vertical long, and short axis views. A gated Cardiolite study at peak stress was obtained. Interpretation: Rest a nd stress SPECT Cardiolite nuclear imaging status post realignment, normalization, and attenuation correction demonstrates areas of diminished myocardial perfusion/tracer uptake in portions of the basal inferoseptal and basal inferior segments extending to the mid inferior segments without significant change between rest and stress, which, status post stress appears to be more prominent in the mid tow ards distal inferior/inferior apical segments. Status post attenuation correction there appears to be evidence of extra cardiac/gastrointestinal tracer uptake near the inferior segments with otherwise r elative uniform tracer uptake at rest and stress with the exception of status post stress and area of diminished tracer uptake in the inferior apical segments. There is end systolic thickening and brigh tening. The gated Cardiolite study demonstrates myocardial thickening and inward wall motion. The reported LVEF is 72 %. Impression: 1. Rest and stress SPECT Cardiolite nuclear imaging demonstrate, be tween pre-attenuation and post attenuation correction, a discrepancy with respect to the myocardial perfusion/tracer uptake in portions of the inferior and inferior apical segments at rest and status po st stress being more prominent on the pre-attenuation correction images suggesting a potential area of previous myocardial injury/infarction with post stress images appearing compatible with associated stress-induced myocardial ischemia and portions of the mid to distal inferior and inferoapical segments versus the post attenuation correction imaging suggesting a post stress imaging appearing potentia lly compatible with stress-induced myocardial ischemia in the inferior apical segments. Note, shifting soft tissue/diaphragmatic attenuation cannot necessarily be excluded. 2. The gated Cardiolite study reports an LVEF of 72 %. This note was generated with [employer] software. It may contain incorrect words, spelling, and punctuation that were not noted in checking the note before signing. 08/02/17 2019 <Electronically signed by Remigio Lares MD> Date Remigio Lares MD CC: Adelaida Fraga DO; Remigio Lares MD Date Dictate d: 08/02/171638 Date Transcribed: 08/02/171638 Health Outcomes Liaison: PM Signed 24-May-2018 Cardiology Visit Report Result: Comments: See Note; NOTES: [facility] [address] [place] [address] OFFICE VISIT Date of Service: 07/14/17 MR#: [id number] Acct: [id number] Name: YUMIKO LANDRUM Rep #: [id number] : 1950 Provider: Remigio Lares MD Age/Sex: 66/M Location: [facility] [place] Status: Signed HPI HPI Details: YUMIKO LANDRUM, is a 66 M who presents to the office today for outpatient card iovascular consultation for history of underlying CAD status post LAD PCI. He has been cared for in the past both by the [facility] members (Drs. Griggs and Edwin), at [facility] by Dr. Rosales, and at [facility] by Dr. Maury Veliz. He states he lost saw Dr. Veliz approximately 1 year ago. He is now relocating his care locally. He has a history of underlying CAD. He underwent a previous diagnostic car diac catheterization on 08/11/2005 at [facility]. At that point in time he was evaluated and found to have the left ventricle to be normal with an LVEF of 55%, the left main coronary artery was patent, the LAD had a proximal 90% stenosis, the LCx was considered free of disease, the RCA was considered to have mild luminal irregularities. He subsequently underwent PTCA/stenting of the LAD distri bution. It appears that in September 2005 he underwent reevaluation at [facility]. At that time he had an intravascular ultrasound procedure of the LAD that showed no significant stenosis. In April 2008, at [facility], he had a repeat diagnostic cardiac catheterization. At that time the left ventricle was thought to be normal with an LVEF of 60%. The left main coronary artery was patent. The L AD appeared to be patent. The stented area had no high-grade stenosis. Status post a stented area there was a 60-70% stenosis. The LCx and the RCA had minimal luminal irregularities. He apparently was transferred to [facility] for further evaluation and care. The results are unknown at this time. He believes he may have received a second PCI/stenting procedure. The procedure report is unavailable for review . He states he has not been having any ongoing chest discomfort. His main concern is been shortness of breath and dyspnea with exertion. He has been attributing this to his underlying COPD and recurren t pneumonia. He has not had any other additional cardiovascular evaluation. He denies any ongoing palpitations or rapid rates. There has been no near syncope or syncope. He had an ECG today. He was no christina to be in sinus rhythm with a left axis deviation and a right bundle branch block pattern. It appears this is not necessarily a new pattern for him based on previous ECGs available for review. He be lieves he was on other medications in the past. Based on other notes at one point time he was on a beta-alex and an LYNDSEY inhibitor. He believes his former physician scientist remove these medications from co s medication list. He does not recall why at this time. Intake Vital Signs07/14/17 Height 5 ft 10 in 07/14/17 Weight: 270 lb 07/14/17 Body Mass Index (BMI) 38.7 07/14/17 Blood Pressure 132/70 Intak e Visit Reasons: CAD/Ref. Dr. Fraga Allergies iodine Allergy (Verified 07/14/17 14:37) Rash, upset stomach, facial swelling Penicillins Allergy (Verified 07/14/17 14:37) Rash pseudoephedrine HCl [From Actifed] Allergy (Verified 07/14/17 14:37) mood changes triprolidine HCl [From Actifed] Allergy (Verified 07/14/17 14:37) mood changes Medications Aspirin [Aspirin, Baby] 81 mg PO DAILY@0800 06/28/13 [History Confirmed 07/14/17] Metformin HCl [Glucophage] 500 mg PO DINNER 06/28/13 [History Confirmed 07/14/17] Montelukast [Singulair] 10 mg PO QHS 06/28/13 [History Confirmed 07/14/17] Pantoprazole So dium [Protonix] 40 mg PO BID 06/28/13 [History Confirmed 07/14/17] Ranolazine [Ranexa] 1,000 mg PO BID 06/28/13 [History Confirmed 07/14/17] Amlodipine [Norvasc] 5 mg PO DAILY 10/18/13 [History Confirme d 07/14/17] Nitroglycerin [Nitro-Dur] 0.6 mg TRANSDERM. DAILY 10/18/13 [History Confirmed 07/14/17] albuterol sulfate 2.5 mg/3 mL (0.083 %) solution for nebulization 1.25 mg INHALATION Q4H PRN 07/12/17 [History Confirmed 07/14/17] albuterol sulfate HFA 90 mcg/actuation aerosol inhaler 2 puff INHALATION Q4H PRN 07/12/17 [History Confirmed 07/14/17] azelastine 0.15 % (205.5 mcg) nasal spray 1 spray INTR ANASAL BID 07/12/17 [History Confirmed 07/14/17] cyclobenzaprine 10 mg tablet 10 mg PO TID PRN 07/12/17 [History Confirmed 07/14/17] eszopiclone 3 mg tablet 3 mg PO QHS 07/12/17 [History Confirmed 07/14] hydrocodone 5 mg-acetaminophen 325 mg tablet 1 tab PO Q6H PRN 07/12/17 [History Confirmed 07/14/17] lorazepam 0.5 mg tablet 0.5 mg PO QDAY PRN tab 07/12/17 [History Confirmed 07/14/17] mirabegron E R 50 mg tablet,extended release 24 hr 50 mg PO QDAY 07/12/17 [History Confirmed 07/14/17] buspirone 10 mg tablet 30 mg PO BID tab 07/14/17 [History Confirmed 07/14/17] cholecalciferol (vitamin D3) 2,000 unit tablet 2,000 unit PO QDAY 07/14/17 [History Confirmed 07/14/17] fluticasone 200 mcg-vilanterol 25 mcg/dose powder for inhalation 1 inh INHALATION QDAY 07/14/17 [History Confirmed 07/14/17] lactoba cillus combination no.8 3 billion cell capsule 3,000 mmu cells PO QDAY 07/14/17 [History Confirmed 07/14/17] levofloxacin 500 mg tablet 500 mg PO QDAY tab 07/14/17 [History Confirmed 07/14/17] multivita min tablet 1 tab PO QDAY 07/14/17 [History Confirmed 07/14/17] prednisone 10 mg tablet 10 mg PO .COMPLEX 07/14/17 [History Confirmed 07/14/17] rosuvastatin 40 mg tablet 40 mg PO QDAY 07/14/17 [History C onfirmed 07/14/17] tamsulosin 0.4 mg capsule 0.4 mg PO DAILY cap 07/14/17 [History Confirmed 07/14/17] venlafaxine ER 150 mg capsule,extended release 24 hr 150 mg PO QHS 07/14/17 [History Confirmed 06/22 06/08] venlafaxine ER 75 mg capsule,extended release 24 hr 75 mg PO QAM cap 07/14/17 [History Confirmed 07/14/17] PFSH Medical History Presence of sten t in coronary artery (Chronic 08/11/05) Hyperlipidemia (Chronic) Hypertension (Chronic) Prinzmetal angina (Acute) Atherosclerotic heart disease of [place] coronary artery without angina pectoris (Chroni c) Anxiety (Chronic) Asthma (Chronic) BPH (benign prostatic hyperplasia) (Chronic) Bronchiectasis (Chronic) Depression (Chronic) GERD (gastroesophageal reflux disease) (Chronic) URIEL (obstructive sleep a pnea) (Chronic) Surgical History Postsurgical percutaneous transluminal coronary angioplasty (PTCA) status (Chronic) History of carpal tunnel surgery ( Resolved) History of lithotripsy (Resolved) History of parathyroid surgery (Resolved) History of rotator cuff surgery (Resolved) History of tonsillectomy (Resolved) Family History Father CAD (coronary artery disease) CVA (cerebral vascular accident) Hypertension Social History Smoking Status: Former smoker alcohol intake: current substance use type : does not use ROS Const Const: Negative for fatigue, weakness, weight gain, weight loss, frequent falls or excessive sweating Eyes Eyes: Negative for change in vision, blurry vision or transient l oss of vision ENT ENT: Positive for balance problems (alot of problem with balance); negative for dizziness Cardio Chest Pain: Yes Character: dull Onset: other (stress), at rest Locati on: left chest, mid sternal Duration: minutes Exacerbation: activity Palpitations: No Edema: None Muscle aches with walking: None Additional Details: Experiences CP all of the time wi th radiation to neck and left shoulder. Resp Respiratory: Positive for SOB with activity (increased) and wheezing; negative for SOB at rest Additional Details: New DX brochiecstasis, currently on ATB's for pneumonia. Patient follows with Dr. Alonso GI GI: Negative vomiting or vomiting blood/hematemesis : Negative for hematuria Musc Musc: Positive for balance problems (alot of problem wi th balance), muscle aches/ myalgia (lower back pain) and muscle weakness (bilat LE); negative for joint pain Skin Skin: Negative non-healing lesions or rash Neuro Neuro: Negative for weakness, blurry vision, dizziness, lightheadedness, frequent falls or orthostatic symptoms Compa Hematologic/Lymphatic: Negative for easy bleeding Endo Endo: Negative for fatigue or excessive sweating Psych Psych : Negative for anxiety or depression Allergy Allergy/Immunology: Negative for hives, Negative for rash Cardiology Exam Const Appearance: cooperative, comfortable, well developed and well groomed Nutri tional Appearance: obese Orientation: alert, awake and oriented x3 Head Head: normal to inspection, normocephalic and atraumatic Ears: hearing grossly normal bilaterally Nose: external nose normal Face and Sinus: face symmetric Mouth: oral mucosae normal Teeth and gingiva: fair dentition Eyes Eyelids: eyelids normal Conjunctivae: conjunctivae normal Pupils: PERRL EOM: EOM intact bilaterally Neck Neck: normal visual inspection and full ROM Chest Chest inspection: normal inspection of the chest and symmetric chest movement Auscultation: Bilateral: Clear to Auscultation Cardio Palpation: normal PMI Rat e: regular rate Rhythm: regular rhythm Heart sounds: S1 normal and S2 normal Distent heart tones GI GI: obese, normal to inspection, soft and bowel sounds present Neuro General: alert, awake, oriented x 3, moves all extremities, no focal sensory deficit and no focal motor deficits Skin Skin: ecchymosis (Scattered) Extremities Pulses: Normal: Right Radial Pulse, Left Radial Pulse Lower Extremity Edema: None: Bilateral Psych Psychological: normal affect Assessment AND Plan 1. Atherosclerosis of [place] coronary artery of [place] heart without angina pectoris I25.10 PTCA/RINA to Prox LAD 08/11/05 Plan T he patient presents for establishment of outpatient cardiovascular care. At the present time he is without symptoms of acute coronary syndrome, etc. He will continue risk factor modification and medic al management. However based on his concerns of shortness of breath and dyspnea, which may be related to his underlying COPD process and recurrent pneumonia, he will be further evaluated from a cardiac standpoint. This will include a follow-up echocardiogram to reassess his left ventricular wall motion and systolic function as well as an exercise tolerance test to evaluate his coronary physiology. De pending upon the findings he may need repeat diagnostic cardiac catheterization. Orders Orders: 2. Presence of stent in coronary artery Z95.5 PTCA/RINA to Prox LAD 08/11/05 Plan He does have a history of previous PCI. The results available are as noted above. There may be more diagnostic studies/intervention reports that are unavailable for review at this time. Orders Orders: 3. Hyperlipidemia, unsp ecified hyperlipidemia type E78.5 Plan A copy of his lipid profile would be appreciated for continuity of care. 4. Essential hypertension I10 Plan His blood pressure appears to be reasonably well-contr olled. He will continue medical management. Orders Orders: 5. COPD (chronic obstructive pulmonary disease) J44.9 Plan He continues to follow with Dr. Alonso for his COPD and pneumonia. Plan Detail Ad ditional Comments The above was discussed with the patient. He was agreeable to this approach. Thank you for allowing me to participate in the care of your patient. Please don't hesitate to call if any issues arise. This note was generated using a voice recognition system and there may be incorrect words, spelling or punctuation that were not noted when reviewing the office note prior to saving. Fol low Up 6 Months (PFM) Coding Level of Care Code Off vis,new,level 4 Diagnoses Atherosclerosis of [place] coronary artery of [place] heart without angina pectoris I25.10 [place] vs. transplanted heart: n ative heart Presence of stent in coronary artery Z95.5 Hyperlipidemia, unspecified hyperlipidemia type E78.5 Hyperlipidemia type: unspecified Essential hypertension I10 Hypertension type: essential hype rtension COPD (chronic obstructive pulmonary disease) J44.9 Coding Level of Care Code Off vis,new,level 4 Diagnoses Atherosclerosis of [place] coronary artery of [place] heart without angina pectoris I 25.10 [place] vs. transplanted heart: [place] heart Presence of stent in coronary artery Z95.5 Hyperlipidemia, unspecified hyperlipidemia type E78.5 Hyperlipidemia type: unspecified Essential hypertension I10 Hypertension type: essential hypertension COPD (chronic obstructive pulmonary disease) J44.9 07/14/17 1558 <Electronically signed by Remigio Lares MD> Date Remigio Lares MD Cosign Signature: Date (if applicable) CC: Adelaida Fraga DO 14-Jul-2017 12 Lead EKG performed by [facility] Result: Comments: See Note; NOTES: [facility] [address] [place] [address] 12 Lead EKG performed by [facility] 07/14/171435 MR#: [id number] Acct: [id number] Name: YUMIKO LANDRUM Rep #: [id number] : 1950 66 From: Remigio Lares MD Attending Dr: Remigio Lares MD Status: DEP [facility] Ordering Dr: Remigio Lares MD Date: 07/14/17 [place] [facility] [place]: M C Admitted: BMS/12 Lead EKG performed by [facility] [place] ECG Report Interpretation Sinus Rhythm Right bundle branch block. ABNORMAL Electronically signed on 07/14/2017 at 17:15 by Remigio Lares 07/14/17 1717 Date Remigio Lares MD CC: Adelaida Fraga DO Date Dictated: 07/14/171435 Date Transcribed: 07/14/171435 Health Outcomes Liaison: PM Signed 04-Jul-2017 TXT - Blood Flow Screening Result: Comments: See Note; NOTES: [facility] Cardiovascular Services [address] [place] [address] 07/04/17 0840 MR#: [id number] Acct: [id number] Name: YUMIKO LANDRUM Rep #: [id number] : 1950 66 From: Jung Garcia MD Attending Dr: Adelaida Fraga DO Status: REG REF Ordering Dr: Date: 07/04/17 Location: [facility] Sex: M C Admitted: Reason For Study: Blood Flow Screening Carotid Duplex Ultrasound Abdominal Aorta The right maximum ICA velocity is 57/21 cm/s. The maximal outside diameter of the proximal The right ECA velocity is less than 125 cm/s. aorta measures 1.82cm x 1.96 c m in the cross- There is no plaque formation noted on the right sectional axis. side. The maximal outside diameter of the proximal The left maximum ICA velocity is 54/20 cm/s. aorta measures 1.95 cm in the longitudinal axis. The left ECA velocity is less than 125 cm/s. There is significant plaque formation noted on the left side. Ankle Brachial Index The right ankle/ brachial index is 1.04. The left ankle/ brachial index is 1.0. Medical History and Assessment Medical History: Borderline Diabetic, HTN, Heart Disease. The heart rate is 68 beats per minute. The heart rhythm is regular. The right bloo d pressure is 132/80. The left blood pressure is 120/76. 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 RECOMMEND FOLLOW-UP WITH YOUR DOCTOR. Normal aortic ultrasound exam. The ankle/brachial index is normal (1.0 or greater). Ordering Physician: Adelaida Fraga [facility] Physician: Adelaida Fraga Performed By: Kayla Kelley, RDLEANNE, RVT 07/04/17 2222 Date Tyrese Garcia MD CC: Adelaida Fraga DO Date Dictated: 07/04/17 0840 Date Transcribed: 07/04/172221 Health Outcomes Liaison: Signed 06-Jun-2017 L/S Spine Min 4 Views Result: Comments: See Note; NOTES: [facility] Imaging Services [address] [place] [address] L/S Spine Min 4 Views MR#: [id number] Acct: [id number] Name: YUMIKO LANDRUM Rep #: [id number] : 1950 M 66 From: Rafael Manley DO PCP: Adelaida Fraga DO Status: REG CLI Study: L/S Spine Min 4 Views Date of Exam: 06/06/17 Exam# [id number] Ordering Dr: Adelaida Fraga DO STUDY: X-RAY - LUMBAR S PINE REASON FOR EXAM: Male, 66 years old. Radiculopathy. Pain in the left leg. TECHNIQUE: 4 view(s) of the lumbar spine were obtained. COMPARISON: Lumbar spine, April 11, 2015. FINDINGS: Normal lumbar lordosis. There is a mild dextroscoliosis unchanged from prior study. There is a normal alignment of the vertebrae. Normal vertebral bodies and endplates. Ther e is multi-level degenerative disc disease with multi-level disc space narrowing. This is most marked at L2-3 and L5-S1. This appears unchanged from previous examination There is no evidence of acute fr acture or loss of vertebral axial height. There is degenerative disc disease without demonstrated spondylolysis of the pars interarticulares. There is atherosclerotic calcification of the abdominal aor ta without a demonstrated aneurysm. RAD/L/S Spine Min 4 Views IMPRESSION: Stable degenerative changes on the lumbar spine. Electronically Signed : Rafael Manley DO at 18:01 EDT Tel [phone], Service support , CC: Adelaida Fraga DO Health Outcomes Liaison: Signed 18-Feb-2017 Ankle min 3 Views Result: Comments: See Note; NOTES: [facility] Imaging Services [address] [place] [address] Ankle min 3 Views MR#: [id number] Acct: [id number] Name: YUMIKO LANDRUM Rep #: [id number] D OB: 1950 M 66 From: Trevon Carrillo MD PCP: Adelaida Fraga DO Status: REG CLI Study: Ankle min 3 Views Date of Exam: 02/18/17 Exam# [id number] Ordering Dr: Adelaida Fraga DO STUDY: X-RAY - LEFT ANKLE REAS ON FOR EXAM: Male, 66 years old. Pain. TECHNIQUE: 3 view(s) of the ankle. COMPARISON: None. FINDINGS: Normal visualized distal tibia and fibula. Normal medial and lateral malleoli. Normal tibiotalar articulation and ankle mortise. Normal visualized talus and calcaneus. The visualized subtalar, talonavicular, calcaneocuboid and tarsal articulations are normal. There is ossification of the distal Achilles tendon. RAD/Ankle min 3 Views IMPRESSION: Ossification of the distal Achilles tendon. No acute path ology. Electronically Signed: Trevon Carrillo MD at 13:20 EST , Service support , CC: Adelaida Fraga DO Health Outcomes Liaison: Signed 18-Feb-2017 Chest without Contrast Result: Comments: See Note; NOTES: [facility] Imaging Services [address] [place] [address] Chest without Contrast MR#: [id number] Acct: [id number] Name: YUMIKO LANDRUM Rep #: [id number] : 1950 M 66 From: Kaitlin Campoverde PCP: Adelaida Fraga DO Status: REG CLI Study: Chest without Contrast Date of Exam: 02/18/17 Exam# [id number] Ordering Dr: Adelaida Fraga DO STUDY: CT CHEST WITHOUT CONTRAST REASON FOR EXAM: Male, 66 years old. Abnormal chest x-ray. Chronic bronchitis. Former smoker. RADIATION DOSAGE (If Supplied By Facility): CTDIvol = ( 19.72 ) mGy, DLP = ( 781.13 ) mGycm TECH NIQUE: Transaxial imaging was performed without the administration of intravenous contrast material. Multiplanar coronal and sagittal images were reformatted. Individualized dose optimization technique s were used for this CT. COMPARISON: Chest x-ray: 02/10/2017 FINDINGS: There is hyperinflation of the lungs consistent with chronic obstructive lung disease (COPD) . Small patchy areas with intralobular interstitial thickening/opacification is seen peripherally in the left upper lobe anteriorly and in left lower lobe with accompanied linear areas of atelectasis an d with mild bronchiectasis. Small patchy/ focal areas of fibrotic atelectasis is also seen in right middle lobe and lingula. The diaphragm is elevated bilaterally. There is diffuse mild pleural thickeni ng. There is mild cardiac enlargement. There are calcifications of the coronary arteries. There is increased pericardial fat pad. There are reactive lymph nodes within the mediastinum and subcarinal r egion. Normal hilar regions. Normal unenhanced pulmonary arteries. There is atherosclerotic calcification of the aortic arch with tortuosity and elongation of the aortic arch and descending thoracic aor ta. There are multi-level degenerative changes of the thoracic spine. Limited images through the upper abdomen shows evidence of intraperitoneal lipomatosis. Fatty hepatic infiltration. Increased colo allyssa stool volume. CT/Chest without Contrast IMPRESSION: 1. 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 2. Mi ld cardiomegaly. Atherosclerotic calcification of the coronary arteries. 3. Pericardial increased fat pad, mediastinal and intraperitoneal lipomatosis. Electronically Signed: Brandy Campoverde MD at 8:02 EST Tel , Service support , CC: Adelaida Fraga DO Health Outcomes Liaison: Signed 10-Feb-2017 Chest PA and Lateral Result: Comments: See Note; NOTES: [facility] Imaging Services [address] [place] [address] Chest PA and Lateral MR#: [id number] Acct: [id number] Name: YUMIKO LANDRUM Rep #: [id number] : 1950 M 66 From: Chava Fu MD PCP: Adelaida Fraga DO Status: REG CLI Study: Chest PA and Lateral Date of Exam: 02/10/17 Exam# [id number] Ordering Dr: Yola Witt STUDY: X-RAY CHEST REASON FOR EXAM: Male, 66 years old. Abnormal lung SOUNDS TECHNIQUE: Frontal and lateral views of the chest. COMPARISON: January 18, 2017 FINDINGS: Chronic appe aring increased interstitial lung markings. There is no demonstrated pleural abnormality. Normal heart size. Normal mediastinum and deborah. Normal visualized pulmonary arteries. There is atherosclerotic calcification of the aortic arch with tortuosity. There are diffuse degenerative changes of the visualized thoracic spine. There is degenerative osteoarthritis of the bilateral shoulders. There is no demonstrated abnormality of the visualized soft tissue structures of the upper abdomen. RAD/Chest PA and Lateral IMPRESSION: There are no acute f indings. Electronically Signed: Chava Fu MD at 21:32 EST , Service support , CC: COCO Witt; Adelaida Fraga DO Health Outcomes Liaison: Signed 18-Jan-2017 Chest PA and Lateral Result: Comments: See Note; NOTES: [facility] Imaging Services [address] [place] [address] Chest PA and Lateral MR#: [id number] Acct: [id number] Name: YUMIKO LANDRUM Rep #: [id number] : 1950 M 66 From: Eriwn Jiménez MD PCP: Adelaida Fraga DO Status: REG CLI Study: Chest PA and Lateral Date of Exam: 01/18/17 Exam# [id number] Ordering Dr: Yola Witt NP-C STUDY: X-RAY CHES T REASON FOR EXAM: Male, 66 years old. Abnormal lung sounds TECHNIQUE: Frontal and lateral views of the chest COMPARISON: 04/11/2015 FINDINGS: There is a small foc us of airspace opacity laterally in the left lower lobe, consistent with an infiltrate. The lungs are otherwise clear. There are no pleural effusions. There is no pneumothorax. The heart is normal in size. The visualized osseous structures are within normal limits. RAD/Chest PA and Lateral IMPRESSION: Left lower lobe infiltrate. Electronica lly Signed: Erwin Jiménez, at 16:25 EST Tel , Service support , CC: GEOLOGICAL TECHNICAL OFFICER-C Yola Witt; Adelaida Fraga DO Health Outcomes Liaison: Signed 11-Apr-2015 Chest PA and Lateral Result: Comments: See Note; NOTES: [facility] Imaging Services [address] [place] [address] Verdana 4d Chest PA and Lateral MR#: [id number] Acct: [id number] Name: YUMIKO LANDRUM Rep #: [id number] : 1950 M 64 From: Stephen Barba MD PCP: Adelaida Fraga DO Status: REG CLI Study: Chest PA and Lateral Date of Exam: 04/11/15 Exam# [id number] Ordering Dr: Adelaida Fraga DO STUDY: X-RAY CHEST REASON FOR EXAM: Male, 64 years old. Chronic cough. Shortness breath TECHNIQUE: PA and lateral views of the chest. COMPARISON: Prior chest x-rays from 08-27-14. FINDINGS: The lungs are clear and expanded. There is no demonstrated pleural abnormality. Normal size heart. Normal mediastinum and deborah. Normal visualized pulmonary arteries. Normal visualized aortic arch and descending thoracic aorta. Normal visualized thoracic spine. Normal visualized ribs and clavicles. The patient is status post right shoulder rotator cuff repair. There is no demonstrated abnormality of the visualized soft tissue structures of the upper abdomen. IMPRESSION: Normal x-ray examination of the chest. No lingular infiltrate is noted on today's examination Electronically Signed: Stephen Barba MD, FACR at 20:20 EST , Service support [phone], RAD/Chest PA and Lateral IMPRESSION: Normal x-ray examination of the chest. No lingular infiltrate is noted on today's examination Electronically Signed: Stephen Barba MD, FACR at 20:20 EST , Service support [phone], CC: Adelaida Fraga DO Health Outcomes Liaison: Signed 11-Apr-2015 Hip min 2 Views Result: Comments: See Note; NOTES: [facility] Imaging Services [address] [place] [address] Verdana 4d Hip min 2 Views MR#: [id number] Acct: [id number] Name: DOMINICKNATHAN QUIÑONEZNI Brittney Brandon Rep #: [id number] : 1950 64 From: Stephen Barba MD PCP: Adelaida Fraga DO Status: REG CLI Study: Hip min 2 Views Date of Exam: 04/11/15 Exam# [id number] Ordering Dr: Adelaida Fraga DO ST UDY: X-RAY - PELVIS AND LEFT HIP REASON FOR EXAM: Male, 64 years old. Chronic left hip pain TECHNIQUE: Radiological exam, hip, unilateral, with pelvis when performed; 2 or 3 views. COMPARISON: No ne. FINDINGS: There is a non-specific bowel gas pattern. Normal visualized soft tissue structures. Normal bilateral iliac wings, sacroiliac joints and visualiz ed sacrum. Normal bilateral superior and inferior pubic rami. Normal pubic symphysis. Normal bilateral ischial tuberosities. Normal visualized femoral head. Normal acetabulum. Normal hip joint. ___ IMPRESSION: Normal x-ray examination of the pelvis and hip. Electronically Signed: Stephen Barba MD, FACR at 20:19 EST , Service support [phone], RAD/Hip min 2 Views IMPRESSION: Normal x-ray examination of the pelvis and hip. Electronically Signed: Stephen Barba MD, FACR 201 07/23/18 at 20:19 EST , Service support [phone], CC: Adelaida Fraga DO Health Outcomes Liaison: Signed 11-Apr-2015 L/S Spine Min 4 Views Result: Comments: See Note; NOTES: [facility] Imaging Services [address] [place] [address] Verda 4d L/S Spine Min 4 Views MR#: [id number] Acct: [id number] Name: YUMIKO LANDRUM Rep #: [id number] : 1950 M 64 From: Stephen Barba MD PCP: Adelaida Fraga DO Status: REG CLI Study: L/S Spine Min 4 Views Date of Exam: 04/11/15 Exam# [id number] Ordering Dr: Susannah Fraga ra, DO STUDY: X-RAY - LUMBAR SPINE REASON FOR EXAM: Male, 64 years old. Current left hip pain. Low back pain TECHNIQUE: 5 view(s) of the lumbar spine were obtained. COMPARISON: None FINDINGS: Normal lumbar lordosis. There is mild dextroscoliosis. There is a normal alignment of the vertebrae. Normal vertebral bodies and endplates. There is disc space narrowing at L2-3 with small anterior osteophytes . There is facet arthrosis at L4-5 and L5-S1. There is disc space narrowing at L5-S1. There is atherosclerotic calcification of the abdominal aorta without a demonstrated aneurysm. IMPRESSION: Mild degenerative disc disease at L2-3 and L5-S1. Facet arthrosis at L4-5 and L5-S1. Mild dextroscoliosis. Elect ronically Signed: Stephen Barba MD, FACR at 20:20 EST , Service support [phone], RAD/L/S Spine Min 4 Views IMPRESSION: M ild degenerative disc disease at L2-3 and L5-S1. Facet arthrosis at L4-5 and L5-S1. Mild dextroscoliosis. Electronically Signed: Stephen Barba MD, FACR at 20:20 EST Tel , Service support [phone], CC: Adelaida Fraga DO Health Outcomes Liaison: Signed 27-Aug-2014 Chest PA and Lateral Result: Comments: See Note; NOTES: [facility] Imaging Services [address] [place] [address] Radiology Report MR#: [id number] Acct: [id number] Name: YUMIKO LANDRUM Rep #: [id number] : 1950 M 63 From: Wilfredo Alvarado MD PCP: Adelaida Fraga DO Status: REG CLI Study: Chest PA and Lateral Date of Exam: 08/27/14 Exam# [id number] Ordering Dr: Adelaida Fraga DO STUDY: X- RAY CHEST REASON FOR EXAM: Male, 63 years old. Cough. TECHNIQUE: PA and lateral views of the chest. COMPARISON: Comparison is made with prior study dated June 28, 2013. FINDINGS: There is mild elevation of the right hemidiaphragm. Mild increased markings are seen in the right middle lobe suggestive of early infiltrate. Followup is recommended. There is no demonstrated pleural abnormality. Normal size heart. Normal mediastinum and deborah. Normal visualized pulmonary arteries. There is atherosclerotic calcification of the aortic arch with tortuosity. There are diffuse degenerative changes of the visualized thoracic spine. Normal visualized ribs, clavicles, and shoulders. There is no demonstrated abnormality of the visualized soft tissue structur es of the upper abdomen. IMPRESSION: Increased markings in the lingular segment of the left upper lobe suggestive of early infiltrate. Followup is recommended. Electronically Signed: Wilfredo Alvarado MD at 15:46 EDT Tel [phone], Service support [phone], 0079 RAD/Chest PA and Lateral IMPRESSION: Inc reased markings in the lingular segment of the left upper lobe suggestive of early infiltrate. Followup is recommended. Electronically Signed: Wilfredo Alvarado MD at 15:46 EDT Tel [phone], Service support [phone], CC: Adelaida Fraga DO Health Outcomes Liaison: Signed 02-Jul-2013 12 Lead Electrocardiogram Result: Comments: See Note; NOTES: [facility] Cardiovascular Services [address] [place] [address] 12 Lead EKG 06/17/13 1938 MR#: [id number] Acct: [id number] Name: CITLALLI LANDRUM Rep #: [id number] : 1950 62 From: Remigio Lares MD Attending Dr: Status: DEP ER Ordering Dr: Jose Fernando MD Date: 06/28/13 Location: ED Sex: M C Admitted: Test Reason : CP Blood Pressure : / mmHG Vent. Rate : 077 BPM Atrial Rate : 077 BPM P-R Int : 168 ms QRS Dur : 156 ms QT Int : 440 ms P-R-T Axes : 019 001 025 degrees QTc Int : 497 ms Normal sinus rhythm Right b undle branch block Abnormal ECG Confirmed by GERDA CALVO, REMIGIO ([id number]), editor map MADELYN RUBALCAVA ([id number]) on 2013 10:04:35 AM Referred By: Jose Fernando Confirmed By:REMIGIO LARES MD CC: Adelaida byrd DO Date Dictated: 06/17/131937 Date Transcribed: 06/17/131937 Health Outcomes Liaison: Signed 30-Jun-2013 Emergency Department Summary Result: Comments: See Note; NOTES: [facility] Medical Records Department [address] [place] [address] Emergency Department Summary MR#: [id number] Acct: [id number] Name: YUMIKO LANDRUM Rep #: [id number] : 1950 62 From: Jose Fernando MD PCP: Adelaida Fraga DO Status: DEP ER DATE OF SERVICE: 06/28/2013 CHIEF COMPLAINT: Chest pain. HISTORY OF PRESENT ILLNESS: The patient states over the past 8 hours, he has had intermittent discomfort in the chest of burning to ache similar to angina. He had an NE, he thinks, back in 2011 when he had a stent placed by Dr. Mariah carr in [facility]. He has been off his blood thinners since. He was on Levaquin this last week for bronchitis. He states that this is different. This is an elephant on my chest&amp ;#34; feeling, although he did not come in right away. He is taking a total of 6 sublingual nitros over the afternoon ____ and he states each one help, but then the pain would just come back. He has risk factors, hypertension, diabetes and hypercholesteremia also. He states he has a little bit of cough and occasional brown sputum production, but he thinks it is getting better. No dizziness, r acing heart, diaphoresis, nausea or vomiting. PHYSICAL EXAMINATION: VITAL SIGNS: Stable. HEENT: Normal. Mucous membranes slightly dry. NECK: Supple. Carotids full. No JVD. Thyroid nonpalpable. HEA RT: Regular S1 and S2 in the 70s. LUNGS: Clear. No wheeze, rhonchi or accessory muscle use. No chest wall discomfort. ABDOMEN: Soft. No pain to palpation or guarding. No flank pain. EXTREMITIES: No cyanosis or edema. No calf pain or Homans sign. NEUROLOGIC: Alert and oriented x3, no lethargy or listlessness, good affect. Normal strength and sensation, cranial nerve function and treatment. [facility] DEPARTMENT COURSE: Portable one-view chest x-ray shows no acute process by my review. These are reviewed by radiologist and EKG showed a new right bundle-branch block from 2011, rate in the 7 0, sinus mechanism, monitor the same. His CBC and chemistries were essentially normal including cardiac enzymes. He had 81 mg of aspirin x4, 1-inch topical nitrate and oxygen. He has felt better th roughout his stay and worst pain at home was an 8, it was a 3 on arrival. He states it was down to a trace or gone on serial checks until just before transfer. We added more of morphine and Zofran 4 because of some returning of pain up to a 3. He agreed to go to [facility] where his physician scientist is in case he needs another cath and stent. He was stable for [facility]. [facility] Trujillo as blow down operator accepted the patient after being advised of all the above through the transfer steam cleaner. He did not want to talk to me. The patient is stable for transfer, with him. DIAGNOSES: 1. Chest pain. 2. Unstable angina. MD Abdullahi Vasquez C: Adelaida Fraga DO T: NTS JOB: [id number] 06/30/13 0021 <Electronically signed by Jose Fernando MD> Date Jose Fernando MD CC: Adelaida Fraga DO Date Dictated: 06/28/13 2255 Date Transcribed: 06/28/132254 Health Outcomes Liaison: Signed 28-Jun-2013 Chest 1 View (Portable) Result: Comments: See Note; NOTES: [facility] Imaging Services [address] [place] [address] Radiology Report MR#: [id number] Acct: [id number] Name: YUMIKO LANDRUM Rep #: [id number] : 1950 M 62 From: Wilfredo Alvarado MD PCP: Adelaida Fraga DO Status: DEP ER Study: Chest 1 View (Portable) Date of Exam: 06/28/13 Exam# [id number] Ordering Dr: Jose Fernando MD STUDY: X-RAY CHEST REASON FOR EXAM: Male, 62 years old. Chest heaviness. TECHNIQUE: Single AP portable view of the chest. COMPARISON: Comparison is made with prior study dated June 17, 2011. FINDINGS: EKG electrodes are seen. The lungs are clear and expanded. There is no demonstrated pleural abnormality. There is moderate cardiac enlargement. Normal mediast inum and deborah. Normal visualized pulmonary arteries. There is atherosclerotic tortuosity of the aortic arch and descending thoracic aorta. Normal visualized thoracic spine. Normal visualized ribs, c lavicles, and shoulders. There is no demonstrated abnormality of the visualized soft tissue structures of the upper abdomen. IMPRESSION: Cardiomegaly. Elect ronically Signed: Wilfredo Alvarado MD at 9:06 EDT Tel [phone], Service support [phone], CC: Adelaida Fraga DO; Jose Fernando MD Health Outcomes Liaison: Signed Immunization Name Dates Details Influenza vaccine, split, 3yrs &>, IM (AFLURIA) on: Nov-2017 Influenza, inj, MDCK, preservative free, q.valent on: 07-Dec-2016 Comments: Site: Lot #: [id number] Family History Unknown Family Member Name Dates Details Brother 1 Comments: skin cancer Status: Active Brother 1 Comments: Rheumatoid arthritis Status: Active Brother 2 Comments: Non-hodgkins lymphoma, ADD Status: Active everyone on dads side with cad Status: Active Family Members In General Comments: ETOH, Prostate CA, Emotional, HBP- issues with loss of red blood cells- dad and uncle on dads side Status: Active Father Comments: living at 86- alzheimers- in his 80s- bph and issues with red blood cells- cad s/p stents , high chol , htn, strokes Status: Active moms 2 brothers with prostate cancer Status: Active Mother Comments: Sjogren's, nervous breakdown, degenrative arthritis Status: Active Social History Name Dates Details Alcohol Use Comments: Moderate alcohol use, weekly beer or wine Status: Active Exercise History Comments: Light Status: Active Living Situation Comments: Lives with spouse Status: Active 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 Status: Active Tobacco use: Former smoker. Status: Active Smoking Status Name Dates Details Former smoker Vital Signs Date Test Result Details :40 Temperature 97.1 f Comments: Method: Temporal Pulse 83 /min Comments: Pattern: Regular Respiration Rate 16 /min Comments: Pattern: Unlabored BP Systolic 120 mm[Hg] Comments: Patient Position: Sitting; Cuff Location: Left Arm; Cuff Size: Standard BP Diastolic 70 mm[Hg] Comments: Patient Position: Sitting; Cuff Location: Left Arm; Cuff Size: Standard Weight 276.125 lb Height 68 in Body Mass Index Calculated 41.98 kg/m2 Body Surface Area Calculated 2.34 m2 :34 Temperature 96.2 f Comments: Method: Temporal Pulse 70 /min Comments: Pattern: Regular Respiration Rate 16 /min Comments: Pattern: Unlabored BP Systolic 106 mm[Hg] Comments: Patient Position: Sitting; Cuff Location: Left Arm; Cuff Size: Standard BP Diastolic 70 mm[Hg] Comments: Patient Position: Sitting; Cuff Location: Left Arm; Cuff Size: Standard Weight 269.125 lb Height 68 in Body Mass Index Calculated 40.92 kg/m2 Body Surface Area Calculated 2.32 m2 :45 Temperature 96.8 f Comments: Method: Temporal Pulse 78 /min Comments: Pattern: Regular Respiration Rate 16 /min Comments: Pattern: Unlabored O2 SAT 97 % Comments: Room air BP Systolic 120 mm[Hg] Comments: Patient Position: Sitting; Cuff Location: Left Arm; Cuff Size: Standard BP Diastolic 70 mm[Hg] Comments: Patient Position: Sitting; Cuff Location: Left Arm; Cuff Size: Standard Weight 269.125 lb Height 68 in Body Mass Index Calculated 40.92 kg/m2 Body Surface Area Calculated 2.32 m2 :04 Temperature 99 f Comments: Method: Temporal Pulse 74 /min Comments: Pattern: Regular Respiration Rate 18 /min Comments: Pattern: Unlabored O2 SAT 97 % Comments: Room air BP Systolic 100 mm[Hg] Comments: Patient Position: Sitting; Cuff Location: Left Arm; Cuff Size: Standard BP Diastolic 60 mm[Hg] Comments: Patient Position: Sitting; Cuff Location: Left Arm; Cuff Size: Standard Weight 264.125 lb Height 68 in Body Mass Index Calculated 40.16 kg/m2 Body Surface Area Calculated 2.3 m2 :28 Temperature 96.5 f Comments: Method: Temporal Pulse 75 /min Comments: Pattern: Regular Respiration Rate 16 /min Comments: Pattern: Unlabored O2 SAT 98 % Comments: Room air BP Systolic 115 mm[Hg] Comments: Patient Position: Sitting; Cuff Location: Left Arm; Cuff Size: Standard BP Diastolic 70 mm[Hg] Comments: Patient Position: Sitting; Cuff Location: Left Arm; Cuff Size: Standard Weight 264.125 lb Height 68 in Body Mass Index Calculated 40.16 kg/m2 Body Surface Area Calculated 2.3 m2 :15 Temperature 97.2 f Comments: Method: Temporal Pulse 78 /min Comments: Pattern: Regular Respiration Rate 16 /min Comments: Pattern: Unlabored O2 SAT 95 % Comments: Room air BP Systolic 100 mm[Hg] Comments: Patient Position: Sitting; Cuff Location: Left Arm; Cuff Size: Standard BP Diastolic 64 mm[Hg] Comments: Patient Position: Sitting; Cuff Location: Left Arm; Cuff Size: Standard Weight 260 lb Height 68 in Body Mass Index Calculated 39.53 kg/m2 Body Surface Area Calculated 2.29 m2 :23 Temperature 96.8 f Comments: Method: Temporal Pulse 78 /min Comments: Pattern: Regular Respiration Rate 16 /min Comments: Pattern: Unlabored O2 SAT 96 % Comments: Room air BP Systolic 122 mm[Hg] Comments: Patient Position: Sitting; Cuff Location: Left Arm; Cuff Size: Standard BP Diastolic 68 mm[Hg] Comments: Patient Position: Sitting; Cuff Location: Left Arm; Cuff Size: Standard Weight 263 lb Height 68 in Body Mass Index Calculated 39.99 kg/m2 Body Surface Area Calculated 2.3 m2 :46 Temperature 97.6 f Comments: Method: Temporal Pulse 70 /min Comments: Pattern: Regular Respiration Rate 16 /min Comments: Pattern: Unlabored BP Systolic 115 mm[Hg] Comments: Patient Position: Sitting; Cuff Location: Left Arm; Cuff Size: Standard BP Diastolic 62 mm[Hg] Comments: Patient Position: Sitting; Cuff Location: Left Arm; Cuff Size: Standard Weight 263 lb Height 68 in Body Mass Index Calculated 39.99 kg/m2 Body Surface Area Calculated 2.3 m2 :40 Temperature 97.8 f Comments: Method: Temporal Pulse 84 /min Comments: Pattern: Regular Respiration Rate 16 /min Comments: Pattern: Unlabored O2 SAT 94 % Comments: Room air BP Systolic 98 mm[Hg] Comments: Patient Position: Sitting; Cuff Location: Left Arm; Cuff Size: Standard BP Diastolic 62 mm[Hg] Comments: Patient Position: Sitting; Cuff Location: Left Arm; Cuff Size: Standard Weight 259 lb Height 68 in Body Mass Index Calculated 39.38 kg/m2 Body Surface Area Calculated 2.28 m2 :07 Temperature 97 f Comments: Method: Temporal Pulse 88 /min Comments: Pattern: Regular Respiration Rate 16 /min Comments: Pattern: Unlabored O2 SAT 96 % Comments: Room air BP Systolic 116 mm[Hg] Comments: Patient Position: Sitting; Cuff Location: Left Arm; Cuff Size: Standard BP Diastolic 78 mm[Hg] Comments: Patient Position: Sitting; Cuff Location: Left Arm; Cuff Size: Standard Weight 254 lb Height 68 in Body Mass Index Calculated 38.62 kg/m2 Body Surface Area Calculated 2.26 m2 :23 Temperature 97.4 f Comments: Method: Temporal Pulse 80 /min Comments: Pattern: Regular Respiration Rate 16 /min Comments: Pattern: Unlabored O2 SAT 94 % Comments: Room air BP Systolic 108 mm[Hg] Comments: Patient Position: Sitting; Cuff Location: Left Arm; Cuff Size: Standard BP Diastolic 70 mm[Hg] Comments: Patient Position: Sitting; Cuff Location: Left Arm; Cuff Size: Standard Weight 254 lb Height 68 in Body Mass Index Calculated 38.62 kg/m2 Body Surface Area Calculated 2.26 m2 :18 Temperature 96.7 f Comments: Method: Temporal Pulse 78 /min Comments: Pattern: Regular Respiration Rate 16 /min Comments: Pattern: Unlabored O2 SAT 97 % Comments: Room air BP Systolic 120 mm[Hg] Comments: Patient Position: Sitting; Cuff Location: Left Arm; Cuff Size: Standard BP Diastolic 70 mm[Hg] Comments: Patient Position: Sitting; Cuff Location: Left Arm; Cuff Size: Standard Weight 249 lb Height 68 in Body Mass Index Calculated 37.86 kg/m2 Body Surface Area Calculated 2.24 m2 :42 Temperature 98 f Pulse 77 /min Comments: Pattern: Regular Respiration Rate 18 /min Comments: Pattern: Unlabored O2 SAT 97 % Comments: Room air BP Systolic 118 mm[Hg] Comments: Patient Position: Sitting; Cuff Location: Left Arm; Cuff Size: Standard BP Diastolic 64 mm[Hg] Comments: Patient Position: Sitting; Cuff Location: Left Arm; Cuff Size: Standard Weight 249 lb Height 68 in Body Mass Index Calculated 37.86 kg/m2 Body Surface Area Calculated 2.24 m2 :30 Temperature 97 f Comments: Method: Temporal Pulse 68 /min Comments: Pattern: Regular Respiration Rate 16 /min Comments: Pattern: Unlabored O2 SAT 95 % Comments: Room air BP Systolic 104 mm[Hg] Comments: Patient Position: Sitting; Cuff Location: Left Arm; Cuff Size: Standard BP Diastolic 76 mm[Hg] Comments: Patient Position: Sitting; Cuff Location: Left Arm; Cuff Size: Standard Weight 249 lb Height 68 in Body Mass Index Calculated 37.86 kg/m2 Body Surface Area Calculated 2.24 m2 :50 Temperature 96.8 f Comments: Method: Temporal Pulse 64 /min Comments: Pattern: Regular Respiration Rate 18 /min Comments: Pattern: Unlabored O2 SAT 95 % Comments: Room air BP Systolic 92 mm[Hg] Comments: Patient Position: Sitting; Cuff Location: Left Arm; Cuff Size: Standard BP Diastolic 64 mm[Hg] Comments: Patient Position: Sitting; Cuff Location: Left Arm; Cuff Size: Standard Weight 249 lb Height 68 in Body Mass Index Calculated 37.86 kg/m2 Body Surface Area Calculated 2.24 m2 :30 Temperature 97 f Comments: Method: Temporal Pulse 74 /min Comments: Pattern: Regular Respiration Rate 15 /min Comments: Pattern: Unlabored O2 SAT 95 % Comments: Room air BP Systolic 100 mm[Hg] Comments: Patient Position: Sitting; Cuff Location: Left Arm; Cuff Size: Standard BP Diastolic 62 mm[Hg] Comments: Patient Position: Sitting; Cuff Location: Left Arm; Cuff Size: Standard Weight 249 lb Height 68 in Body Mass Index Calculated 37.86 kg/m2 Body Surface Area Calculated 2.24 m2 :22 Temperature 97.4 f Pulse 67 /min Comments: Pattern: Regular Respiration Rate 18 /min Comments: Pattern: Unlabored O2 SAT 95 % Comments: Room air BP Systolic 116 mm[Hg] Comments: Patient Position: Sitting; Cuff Location: Left Arm; Cuff Size: Standard BP Diastolic 68 mm[Hg] Comments: Patient Position: Sitting; Cuff Location: Left Arm; Cuff Size: Standard Weight 247 lb Height 68 in Body Mass Index Calculated 37.56 kg/m2 Body Surface Area Calculated 2.24 m2 :17 Temperature 97.4 f Comments: Method: Temporal Pulse 80 /min Comments: Pattern: Regular Respiration Rate 16 /min Comments: Pattern: Unlabored O2 SAT 94 % Comments: Room air BP Systolic 102 mm[Hg] Comments: Patient Position: Sitting; Cuff Location: Left Arm; Cuff Size: Standard BP Diastolic 54 mm[Hg] Comments: Patient Position: Sitting; Cuff Location: Left Arm; Cuff Size: Standard Weight 245 lb Height 68 in Body Mass Index Calculated 37.25 kg/m2 Body Surface Area Calculated 2.23 m2 :09 Temperature 98 f Comments: Method: Temporal Pulse 78 /min Comments: Pattern: Regular Respiration Rate 16 /min Comments: Pattern: Unlabored O2 SAT 96 % Comments: Room air BP Systolic 94 mm[Hg] Comments: Patient Position: Sitting; Cuff Location: Left Arm; Cuff Size: Standard BP Diastolic 60 mm[Hg] Comments: Patient Position: Sitting; Cuff Location: Left Arm; Cuff Size: Standard Weight 248 lb Height 68 in Body Mass Index Calculated 37.71 kg/m2 Body Surface Area Calculated 2.24 m2 :58 Temperature 97 f Comments: Method: Temporal Pulse 71 /min Comments: Pattern: Regular Respiration Rate 17 /min Comments: Pattern: Unlabored O2 SAT 98 % Comments: Room air BP Systolic 90 mm[Hg] Comments: Patient Position: Sitting; Cuff Location: Left Arm; Cuff Size: Large BP Diastolic 70 mm[Hg] Comments: Patient Position: Sitting; Cuff Location: Left Arm; Cuff Size: Large Weight 247 lb Height 68 in Body Mass Index Calculated 37.56 kg/m2 Body Surface Area Calculated 2.24 m2 :11 Temperature 100 f Comments: Method: Oral Pulse 78 /min Comments: Pattern: Regular Respiration Rate 18 /min Comments: Pattern: Unlabored O2 SAT 94 % Comments: Room air BP Systolic 110 mm[Hg] Comments: Patient Position: Sitting; Cuff Location: Left Arm; Cuff Size: Standard BP Diastolic 60 mm[Hg] Comments: Patient Position: Sitting; Cuff Location: Left Arm; Cuff Size: Standard Weight 244 lb Height 68 in Body Mass Index Calculated 37.1 kg/m2 Body Surface Area Calculated 2.22 m2 :56 Temperature 99.1 f Comments: Method: Oral Pulse 68 /min Comments: Pattern: Regular Respiration Rate 18 /min Comments: Pattern: Unlabored BP Systolic 100 mm[Hg] Comments: Patient Position: Sitting; Cuff Location: Left Arm; Cuff Size: Standard BP Diastolic 74 mm[Hg] Comments: Patient Position: Sitting; Cuff Location: Left Arm; Cuff Size: Standard Weight 244 lb Height 68 in Body Mass Index Calculated 37.1 kg/m2 Body Surface Area Calculated 2.22 m2 :04 Temperature 97 f Pulse 79 /min Comments: Pattern: Regular Respiration Rate 18 /min Comments: Pattern: Unlabored O2 SAT 95 % Comments: Room air BP Systolic 112 mm[Hg] Comments: Patient Position: Sitting; Cuff Location: Left Arm; Cuff Size: Standard BP Diastolic 72 mm[Hg] Comments: Patient Position: Sitting; Cuff Location: Left Arm; Cuff Size: Standard Weight 251.125 lb Height 68 in Body Mass Index Calculated 38.18 kg/m2 Body Surface Area Calculated 2.25 m2 :13 Temperature 99 f Comments: Method: Oral Pulse 68 /min Comments: Pattern: Regular Respiration Rate 18 /min Comments: Pattern: Unlabored BP Systolic 112 mm[Hg] Comments: Patient Position: Sitting; Cuff Location: Left Arm; Cuff Size: Large BP Diastolic 76 mm[Hg] Comments: Patient Position: Sitting; Cuff Location: Left Arm; Cuff Size: Large Weight 249 lb Height 68 in Body Mass Index Calculated 37.86 kg/m2 Body Surface Area Calculated 2.24 m2 :55 Temperature 98.2 f Pulse 90 /min Comments: Pattern: Regular Respiration Rate 16 /min Comments: Pattern: Unlabored O2 SAT 96 % Comments: Room air BP Systolic 124 mm[Hg] Comments: Patient Position: Sitting; Cuff Location: Left Arm; Cuff Size: Standard BP Diastolic 78 mm[Hg] Comments: Patient Position: Sitting; Cuff Location: Left Arm; Cuff Size: Standard Weight 261.5 lb Height 68 in Body Mass Index Calculated 39.76 kg/m2 Body Surface Area Calculated 2.29 m2 :38 Temperature 97.3 f Pulse 62 /min Comments: Pattern: Regular Respiration Rate 18 /min Comments: Pattern: Unlabored O2 SAT 96 % Comments: Room air BP Systolic 108 mm[Hg] Comments: Patient Position: Sitting; Cuff Location: Left Arm; Cuff Size: Large BP Diastolic 76 mm[Hg] Comments: Patient Position: Sitting; Cuff Location: Left Arm; Cuff Size: Large Weight 261 lb Height 68 in Body Mass Index Calculated 39.68 kg/m2 Body Surface Area Calculated 2.29 m2 :06 Temperature 97.5 f Comments: Method: Oral Pulse 81 /min Comments: Pattern: Regular Respiration Rate 18 /min Comments: Pattern: Unlabored O2 SAT 96 % Comments: Room air BP Systolic 112 mm[Hg] Comments: Patient Position: Sitting; Cuff Location: Left Arm; Cuff Size: Standard BP Diastolic 70 mm[Hg] Comments: Patient Position: Sitting; Cuff Location: Left Arm; Cuff Size: Standard Weight 261 lb Height 68 in Body Mass Index Calculated 39.68 kg/m2 Body Surface Area Calculated 2.29 m2 :13 Temperature 97.2 f Pulse 72 /min Comments: Pattern: Regular Respiration Rate 16 /min Comments: Pattern: Unlabored BP Systolic 118 mm[Hg] Comments: Patient Position: Sitting; Cuff Location: Left Arm; Cuff Size: Standard BP Diastolic 72 mm[Hg] Comments: Patient Position: Sitting; Cuff Location: Left Arm; Cuff Size: Standard Weight 261 lb Height 68 in Body Mass Index Calculated 39.68 kg/m2 Body Surface Area Calculated 2.29 m2 :13 Temperature 98.2 f Pulse 84 /min Comments: Pattern: Regular Respiration Rate 16 /min Comments: Pattern: Unlabored BP Systolic 100 mm[Hg] Comments: Patient Position: Sitting; Cuff Location: Left Arm; Cuff Size: Large BP Diastolic 72 mm[Hg] Comments: Patient Position: Sitting; Cuff Location: Left Arm; Cuff Size: Large Weight 262 lb Height 68 in Body Mass Index Calculated 39.84 kg/m2 Body Surface Area Calculated 2.29 m2 :19 Temperature 97.2 f Pulse 75 /min Comments: Pattern: Regular Respiration Rate 17 /min Comments: Pattern: Unlabored BP Systolic 114 mm[Hg] Comments: Patient Position: Sitting; Cuff Location: Left Arm; Cuff Size: Large BP Diastolic 74 mm[Hg] Comments: Patient Position: Sitting; Cuff Location: Left Arm; Cuff Size: Large Weight 266 lb Height 68 in Body Mass Index Calculated 40.44 kg/m2 Body Surface Area Calculated 2.31 m2 :28 Temperature 96.9 f Pulse 78 /min Comments: Pattern: Regular Respiration Rate 16 /min Comments: Pattern: Unlabored BP Systolic 106 mm[Hg] Comments: Patient Position: Sitting; Cuff Location: Left Arm; Cuff Size: Large BP Diastolic 68 mm[Hg] Comments: Patient Position: Sitting; Cuff Location: Left Arm; Cuff Size: Large Weight 266 lb Height 68 in Body Mass Index Calculated 40.44 kg/m2 Body Surface Area Calculated 2.31 m2 :46 Temperature 97.8 f Pulse 82 /min Comments: Pattern: Regular Respiration Rate 16 /min Comments: Pattern: Unlabored BP Systolic 114 mm[Hg] Comments: Patient Position: Sitting; Cuff Location: Right Arm; Cuff Size: Large BP Diastolic 70 mm[Hg] Comments: Patient Position: Sitting; Cuff Location: Right Arm; Cuff Size: Large Weight 260 lb Height 68 in Body Mass Index Calculated 39.53 kg/m2 Body Surface Area Calculated 2.29 m2 :39 Temperature 98.9 f Comments: Method: Oral Pulse 70 /min Comments: Pattern: Regular Respiration Rate 20 /min O2 SAT 97 % Comments: Room air BP Systolic 126 mm[Hg] Comments: Patient Position: Sitting; Cuff Location: Left Arm; Cuff Size: Standard BP Diastolic 70 mm[Hg] Comments: Patient Position: Sitting; Cuff Location: Left Arm; Cuff Size: Standard Weight 259 lb Height 68 in Body Mass Index Calculated 39.38 kg/m2 Body Surface Area Calculated 2.28 m2 :19 Temperature 97 f Comments: Method: Temporal Pulse 76 /min Comments: Pattern: Regular Respiration Rate 16 /min Comments: Pattern: Unlabored O2 SAT 97 % Comments: Room air BP Systolic 110 mm[Hg] Comments: Patient Position: Sitting; Cuff Location: Left Arm; Cuff Size: Standard BP Diastolic 68 mm[Hg] Comments: Patient Position: Sitting; Cuff Location: Left Arm; Cuff Size: Standard Weight 259 lb Height 68 in Body Mass Index Calculated 39.38 kg/m2 Body Surface Area Calculated 2.28 m2 :12 Temperature 98.1 f Pulse 68 /min Comments: Pattern: Regular Respiration Rate 18 /min Comments: Pattern: Unlabored O2 SAT 97 % Comments: Room air BP Systolic 80 mm[Hg] Comments: Patient Position: Sitting; Cuff Location: Left Arm; Cuff Size: Large BP Diastolic 54 mm[Hg] Comments: Patient Position: Sitting; Cuff Location: Left Arm; Cuff Size: Large Weight 254 lb Height 68 in Body Mass Index Calculated 38.62 kg/m2 Body Surface Area Calculated 2.26 m2 :51 Temperature 97.4 f Comments: Method: Temporal Pulse 66 /min Comments: Pattern: Regular Respiration Rate 16 /min Comments: Pattern: Unlabored O2 SAT 96 % Comments: Room air BP Systolic 124 mm[Hg] Comments: Patient Position: Sitting; Cuff Location: Left Arm; Cuff Size: Standard BP Diastolic 78 mm[Hg] Comments: Patient Position: Sitting; Cuff Location: Left Arm; Cuff Size: Standard Weight 264 lb Height 68 in Body Mass Index Calculated 40.14 kg/m2 Body Surface Area Calculated 2.3 m2 :51 Temperature 97.8 f Pulse 72 /min Comments: Pattern: Regular Respiration Rate 18 /min Comments: Pattern: Unlabored BP Systolic 110 mm[Hg] Comments: Patient Position: Sitting; Cuff Location: Left Arm; Cuff Size: Standard BP Diastolic 72 mm[Hg] Comments: Patient Position: Sitting; Cuff Location: Left Arm; Cuff Size: Standard Weight 264 lb Height 68 in Body Mass Index Calculated 40.14 kg/m2 Body Surface Area Calculated 2.3 m2 :54 Temperature 98.2 f Comments: Method: Oral Pulse 71 /min Comments: Pattern: Regular Respiration Rate 18 /min Comments: Pattern: Unlabored O2 SAT 96 % Comments: Room air BP Systolic 98 mm[Hg] Comments: Patient Position: Sitting; Cuff Location: Left Arm; Cuff Size: Standard BP Diastolic 60 mm[Hg] Comments: Patient Position: Sitting; Cuff Location: Left Arm; Cuff Size: Standard Weight 260 lb Height 68 in Body Mass Index Calculated 39.53 kg/m2 Body Surface Area Calculated 2.29 m2 :50 Temperature 97.6 f Pulse 62 /min Comments: Pattern: Regular Respiration Rate 18 /min Comments: Pattern: Unlabored BP Systolic 100 mm[Hg] Comments: Patient Position: Sitting; Cuff Location: Left Arm; Cuff Size: Large BP Diastolic 62 mm[Hg] Comments: Patient Position: Sitting; Cuff Location: Left Arm; Cuff Size: Large Weight 260 lb Height 68 in Body Mass Index Calculated 39.53 kg/m2 Body Surface Area Calculated 2.29 m2 :31 Temperature 97.4 f Comments: Method: Temporal Pulse 55 /min Comments: Pattern: Regular Respiration Rate 16 /min Comments: Pattern: Unlabored O2 SAT 93 % Comments: Room air BP Systolic 126 mm[Hg] Comments: Patient Position: Sitting; Cuff Location: Left Arm; Cuff Size: Standard BP Diastolic 74 mm[Hg] Comments: Patient Position: Sitting; Cuff Location: Left Arm; Cuff Size: Standard Weight 255.1875 lb Height 68 in Body Mass Index Calculated 38.8 kg/m2 Body Surface Area Calculated 2.27 m2 :08 Temperature 98.6 f Comments: Method: Oral Pulse 67 /min Comments: Pattern: Regular Respiration Rate 18 /min Comments: Pattern: Unlabored O2 SAT 97 % Comments: Room air BP Systolic 108 mm[Hg] Comments: Patient Position: Sitting; Cuff Location: Left Arm; Cuff Size: Standard BP Diastolic 64 mm[Hg] Comments: Patient Position: Sitting; Cuff Location: Left Arm; Cuff Size: Standard Weight 255.1875 lb Height 68 in Body Mass Index Calculated 38.8 kg/m2 Body Surface Area Calculated 2.27 m2 :53 Temperature 98.4 f Comments: Method: Oral Pulse 60 /min Comments: Pattern: Regular Respiration Rate 16 /min O2 SAT 96 % Comments: Room air BP Systolic 112 mm[Hg] Comments: Patient Position: Sitting; Cuff Location: Left Arm; Cuff Size: Standard BP Diastolic 62 mm[Hg] Comments: Patient Position: Sitting; Cuff Location: Left Arm; Cuff Size: Standard Weight 254.1875 lb Height 68 in Body Mass Index Calculated 38.65 kg/m2 Body Surface Area Calculated 2.26 m2 :58 Temperature 97.6 f Comments: Method: Oral Pulse 64 /min Comments: Pattern: Regular Respiration Rate 20 /min Comments: Pattern: Unlabored BP Systolic 118 mm[Hg] Comments: Patient Position: Sitting; Cuff Location: Left Arm; Cuff Size: Large BP Diastolic 62 mm[Hg] Comments: Patient Position: Sitting; Cuff Location: Left Arm; Cuff Size: Large Weight 253 lb Height 68 in Body Mass Index Calculated 38.47 kg/m2 Body Surface Area Calculated 2.26 m2 :00 Temperature 97.5 f Pulse 58 /min Comments: Pattern: Regular Respiration Rate 18 /min Comments: Pattern: Unlabored BP Systolic 106 mm[Hg] Comments: Patient Position: Sitting; Cuff Location: Left Arm; Cuff Size: Large BP Diastolic 76 mm[Hg] Comments: Patient Position: Sitting; Cuff Location: Left Arm; Cuff Size: Large Weight 253 lb Height 68 in Body Mass Index Calculated 38.47 kg/m2 Body Surface Area Calculated 2.26 m2 :03 Temperature 97.2 f Pulse 56 /min Comments: Pattern: Regular Respiration Rate 18 /min Comments: Pattern: Unlabored BP Systolic 110 mm[Hg] Comments: Patient Position: Sitting; Cuff Location: Left Arm; Cuff Size: Large BP Diastolic 74 mm[Hg] Comments: Patient Position: Sitting; Cuff Location: Left Arm; Cuff Size: Large Weight 258 lb Height 68 in Body Mass Index Calculated 39.23 kg/m2 Body Surface Area Calculated 2.28 m2 :24 Comments: bp with standard cuff in right arm, sleeve up was 80/58 Temperature 97.7 f Pulse 60 /min Comments: Pattern: Regular Respiration Rate 18 /min Comments: Pattern: Unlabored BP Systolic 84 mm[Hg] Comments: Patient Position: Sitting; Cuff Location: Left Arm; Cuff Size: Large BP Diastolic 50 mm[Hg] Comments: Patient Position: Sitting; Cuff Location: Left Arm; Cuff Size: Large Weight 257 lb Height 68 in Body Mass Index Calculated 39.08 kg/m2 Body Surface Area Calculated 2.27 m2 [id number] Temperature 97.9 f Pulse 80 /min Comments: Pattern: Regular Respiration Rate 18 /min Comments: Pattern: Unlabored BP Systolic 104 mm[Hg] Comments: Patient Position: Sitting; Cuff Location: Left Arm; Cuff Size: Large BP Diastolic 72 mm[Hg] Comments: Patient Position: Sitting; Cuff Location: Left Arm; Cuff Size: Large Weight 245 lb Height 68 in Body Mass Index Calculated 37.25 kg/m2 Body Surface Area Calculated 2.23 m2 :09 Temperature 97.3 f Pulse 64 /min Comments: Pattern: Regular Respiration Rate 16 /min Comments: Pattern: Unlabored BP Systolic 100 mm[Hg] Comments: Patient Position: Sitting; Cuff Location: Left Arm; Cuff Size: Large BP Diastolic 70 mm[Hg] Comments: Patient Position: Sitting; Cuff Location: Left Arm; Cuff Size: Large Weight 248 lb Height 68 in Body Mass Index Calculated 37.71 kg/m2 Body Surface Area Calculated 2.24 m2 :48 Temperature 97.9 f Pulse 80 /min Comments: Pattern: Regular Respiration Rate 18 /min Comments: Pattern: Unlabored BP Systolic 94 mm[Hg] Comments: Patient Position: Sitting; Cuff Location: Left Arm; Cuff Size: Large BP Diastolic 72 mm[Hg] Comments: Patient Position: Sitting; Cuff Location: Left Arm; Cuff Size: Large Weight 250 lb Height 68 in Body Mass Index Calculated 38.01 kg/m2 Body Surface Area Calculated 2.25 m2 :22 Temperature 98 f Pulse 72 /min Comments: Pattern: Regular Respiration Rate 18 /min Comments: Pattern: Unlabored BP Systolic 94 mm[Hg] Comments: Patient Position: Sitting; Cuff Location: Left Arm; Cuff Size: Large BP Diastolic 66 mm[Hg] Comments: Patient Position: Sitting; Cuff Location: Left Arm; Cuff Size: Large Weight 253 lb Height 68 in Body Mass Index Calculated 38.47 kg/m2 Body Surface Area Calculated 2.26 m2 :26 Temperature 97.2 f Pulse 80 /min Comments: Pattern: Regular Respiration Rate 18 /min Comments: Pattern: Unlabored BP Systolic 116 mm[Hg] Comments: Patient Position: Sitting; Cuff Location: Left Arm; Cuff Size: Standard BP Diastolic 76 mm[Hg] Comments: Patient Position: Sitting; Cuff Location: Left Arm; Cuff Size: Standard Weight 253 lb Height 68 in Body Mass Index Calculated 38.47 kg/m2 Body Surface Area Calculated 2.26 m2 :03 Temperature 98.4 f Pulse 76 /min Comments: Pattern: Regular Respiration Rate 16 /min Comments: Pattern: Unlabored BP Systolic 100 mm[Hg] Comments: Patient Position: Sitting; Cuff Location: Left Arm; Cuff Size: Large BP Diastolic 62 mm[Hg] Comments: Patient Position: Sitting; Cuff Location: Left Arm; Cuff Size: Large Weight 256 lb Height 68 in Body Mass Index Calculated 38.92 kg/m2 Body Surface Area Calculated 2.27 m2 :11 Temperature 97.3 f Comments: Method: Oral Pulse 60 /min Comments: Pattern: Regular Respiration Rate 20 /min Comments: Pattern: Unlabored BP Systolic 122 mm[Hg] Comments: Patient Position: Sitting; Cuff Location: Left Arm; Cuff Size: Large BP Diastolic 70 mm[Hg] Comments: Patient Position: Sitting; Cuff Location: Left Arm; Cuff Size: Large Weight 255 lb Height 68 in Body Mass Index Calculated 38.77 kg/m2 Body Surface Area Calculated 2.27 m2 :57 Temperature 97.5 f Comments: Method: Oral Pulse 76 /min Comments: Pattern: Regular Respiration Rate 18 /min O2 SAT 97 % Comments: Room air BP Systolic 110 mm[Hg] Comments: Patient Position: Sitting; Cuff Location: Left Arm; Cuff Size: Standard BP Diastolic 70 mm[Hg] Comments: Patient Position: Sitting; Cuff Location: Left Arm; Cuff Size: Standard Weight 255 lb Height 68 in Body Mass Index Calculated 38.77 kg/m2 Body Surface Area Calculated 2.27 m2 :19 Temperature 97.8 f Pulse 74 /min Comments: Pattern: Regular Respiration Rate 18 /min Comments: Pattern: Unlabored O2 SAT 93 % Comments: Room air BP Systolic 102 mm[Hg] Comments: Patient Position: Sitting; Cuff Location: Left Arm; Cuff Size: Standard BP Diastolic 70 mm[Hg] Comments: Patient Position: Sitting; Cuff Location: Left Arm; Cuff Size: Standard Weight 255 lb Height 68 in Body Mass Index Calculated 38.77 kg/m2 Body Surface Area Calculated 2.27 m2 :43 Temperature 97.3 f Pulse 76 /min Comments: Pattern: Regular Respiration Rate 18 /min Comments: Pattern: Unlabored BP Systolic 104 mm[Hg] Comments: Patient Position: Sitting; Cuff Location: Left Arm; Cuff Size: Large BP Diastolic 72 mm[Hg] Comments: Patient Position: Sitting; Cuff Location: Left Arm; Cuff Size: Large Weight 257 lb Height 68 in Body Mass Index Calculated 39.08 kg/m2 Body Surface Area Calculated 2.27 m2 :34 Temperature 98.3 f Comments: Method: Oral Pulse 68 /min Comments: Pattern: Regular Respiration Rate 18 /min Comments: Pattern: Unlabored BP Systolic 122 mm[Hg] Comments: Patient Position: Sitting; Cuff Location: Left Arm; Cuff Size: Large BP Diastolic 72 mm[Hg] Comments: Patient Position: Sitting; Cuff Location: Left Arm; Cuff Size: Large Weight 256.375 lb Height 68 in Body Mass Index Calculated 38.98 kg/m2 Body Surface Area Calculated 2.27 m2 :20 Temperature 97.6 f Pulse 72 /min Comments: Pattern: Regular Respiration Rate 18 /min Comments: Pattern: Unlabored BP Systolic 102 mm[Hg] Comments: Patient Position: Sitting; Cuff Location: Left Arm; Cuff Size: Standard BP Diastolic 70 mm[Hg] Comments: Patient Position: Sitting; Cuff Location: Left Arm; Cuff Size: Standard Weight 257.5 lb Height 68 in Body Mass Index Calculated 39.15 kg/m2 Body Surface Area Calculated 2.28 m2 :36 Temperature 98 f Comments: Method: Oral Pulse 60 /min Comments: Pattern: Regular Respiration Rate 16 /min Comments: Pattern: Unlabored BP Systolic 102 mm[Hg] Comments: Patient Position: Sitting; Cuff Location: Left Arm; Cuff Size: Standard BP Diastolic 60 mm[Hg] Comments: Patient Position: Sitting; Cuff Location: Left Arm; Cuff Size: Standard Weight 258.5 lb Height 68 in Body Mass Index Calculated 39.3 kg/m2 Body Surface Area Calculated 2.28 m2 :04 Temperature 98.8 f Pulse 80 /min Comments: Pattern: Regular Respiration Rate 16 /min Comments: Pattern: Unlabored BP Systolic 122 mm[Hg] Comments: Patient Position: Sitting; Cuff Location: Left Arm; Cuff Size: Large BP Diastolic 70 mm[Hg] Comments: Patient Position: Sitting; Cuff Location: Left Arm; Cuff Size: Large Weight 247 lb Height 68 in Body Mass Index Calculated 37.56 kg/m2 Body Surface Area Calculated 2.24 m2 :04 Temperature 97.7 f Pulse 72 /min Comments: Pattern: Regular Respiration Rate 16 /min Comments: Pattern: Unlabored BP Systolic 90 mm[Hg] Comments: Patient Position: Sitting; Cuff Location: Left Arm; Cuff Size: Large BP Diastolic 62 mm[Hg] Comments: Patient Position: Sitting; Cuff Location: Left Arm; Cuff Size: Large Weight 250 lb Height 68.25 in Body Mass Index Calculated 37.73 kg/m2 Body Surface Area Calculated 2.25 m2 :48 Temperature 98 f Pulse 64 /min Comments: Pattern: Regular Respiration Rate 16 /min Comments: Pattern: Unlabored BP Systolic 102 mm[Hg] Comments: Patient Position: Sitting; Cuff Location: Left Arm; Cuff Size: Standard BP Diastolic 74 mm[Hg] Comments: Patient Position: Sitting; Cuff Location: Left Arm; Cuff Size: Standard Weight 252 lb :51 Temperature 99.9 f Comments: Method: Oral Pulse 80 /min Comments: Pattern: Regular Respiration Rate 18 /min Comments: Pattern: Unlabored O2 SAT 97 % Comments: Room air BP Systolic 108 mm[Hg] Comments: Patient Position: Sitting; Cuff Location: Left Arm; Cuff Size: Standard BP Diastolic 76 mm[Hg] Comments: Patient Position: Sitting; Cuff Location: Left Arm; Cuff Size: Standard :19 Temperature 98.1 f Comments: Method: Oral Pulse 68 /min Comments: Pattern: Regular Respiration Rate 18 /min Comments: Pattern: Unlabored BP Systolic 92 mm[Hg] Comments: Patient Position: Sitting; Cuff Location: Left Arm; Cuff Size: Standard BP Diastolic 64 mm[Hg] Comments: Patient Position: Sitting; Cuff Location: Left Arm; Cuff Size: Standard Weight 237 lb Height 68.25 in Body Mass Index Calculated 35.77 kg/m2 Body Surface Area Calculated 2.2 m2 :32 Temperature 97.9 f Pulse 76 /min Comments: Pattern: Regular Respiration Rate 18 /min Comments: Pattern: Unlabored BP Systolic 90 mm[Hg] Comments: Patient Position: Sitting; Cuff Location: Left Arm; Cuff Size: Large BP Diastolic 64 mm[Hg] Comments: Patient Position: Sitting; Cuff Location: Left Arm; Cuff Size: Large Weight 237 lb :58 Temperature 98.3 f Pulse 72 /min Comments: Pattern: Regular Respiration Rate 18 /min Comments: Pattern: Unlabored BP Systolic 90 mm[Hg] Comments: Patient Position: Sitting; Cuff Location: Left Arm; Cuff Size: Standard BP Diastolic 62 mm[Hg] Comments: Patient Position: Sitting; Cuff Location: Left Arm; Cuff Size: Standard Weight 224 lb :12 Temperature 97.4 f Pulse 56 /min Comments: Pattern: Regular Respiration Rate 18 /min Comments: Pattern: Unlabored BP Systolic 96 mm[Hg] Comments: Patient Position: Sitting; Cuff Location: Left Arm; Cuff Size: Standard BP Diastolic 66 mm[Hg] Comments: Patient Position: Sitting; Cuff Location: Left Arm; Cuff Size: Standard Weight 233 lb :54 Temperature 98.9 f Comments: Method: Oral Pulse 60 /min Comments: Pattern: Regular Respiration Rate 20 /min Comments: Pattern: Unlabored BP Systolic 120 mm[Hg] Comments: Patient Position: Sitting; Cuff Location: Left Arm; Cuff Size: Large BP Diastolic 82 mm[Hg] Comments: Patient Position: Sitting; Cuff Location: Left Arm; Cuff Size: Large Weight 221 lb :41 Temperature 98.3 f Comments: Method: Oral Pulse 68 /min Comments: Pattern: Regular Respiration Rate 20 /min Comments: Pattern: Unlabored BP Systolic 80 mm[Hg] Comments: Patient Position: Sitting; Cuff Location: Left Arm; Cuff Size: Standard BP Diastolic 58 mm[Hg] Comments: Patient Position: Sitting; Cuff Location: Left Arm; Cuff Size: Standard Weight 221 lb Height 0 in Head Circumference 0.00 cm :04 Temperature 98.3 f Comments: Method: Undefined Pulse 70 /min Comments: Pattern: Regular Respiration Rate 18 /min Comments: Pattern: Undefined BP Systolic 94 mm[Hg] Comments: Patient Position: Sitting; Cuff Location: Right Arm; Cuff Size: Standard BP Diastolic 64 mm[Hg] Comments: Patient Position: Sitting; Cuff Location: Right Arm; Cuff Size: Standard Weight 228 lb Height 0 in Head Circumference 0.00 cm :12 Pulse 64 /min Comments: Pattern: Regular Respiration Rate 18 /min Comments: Pattern: Unlabored BP Systolic 118 mm[Hg] Comments: Patient Position: Sitting; Cuff Location: Left Arm; Cuff Size: Large BP Diastolic 78 mm[Hg] Comments: Patient Position: Sitting; Cuff Location: Left Arm; Cuff Size: Large Weight 223 lb Height 68.25 in Body Mass Index Calculated 33.66 kg/m2 Body Surface Area Calculated 2.15 m2 Head Circumference 0.00 cm :09 Temperature 97.9 f Comments: Method: Undefined Pulse 72 /min Comments: Pattern: Regular Respiration Rate 16 /min Comments: Pattern: Undefined BP Systolic 118 mm[Hg] Comments: Patient Position: Sitting; Cuff Location: Right Arm; Cuff Size: Large BP Diastolic 82 mm[Hg] Comments: Patient Position: Sitting; Cuff Location: Right Arm; Cuff Size: Large Weight 226 lb Height 68.25 in Body Mass Index Calculated 34.11 kg/m2 Body Surface Area Calculated 2.16 m2 Head Circumference 0.00 cm :46 Temperature 98.2 f Comments: Method: Oral Pulse 79 /min Comments: Pattern: Regular Respiration Rate 18 /min Comments: Pattern: Unlabored O2 SAT 95 % Comments: Room air BP Systolic 102 mm[Hg] Comments: Patient Position: Sitting; Cuff Location: Left Arm; Cuff Size: Standard BP Diastolic 78 mm[Hg] Comments: Patient Position: Sitting; Cuff Location: Left Arm; Cuff Size: Standard Weight 230.1875 lb Height 0 in Head Circumference 0.00 cm :42 Temperature 96.7 f Comments: Method: Undefined Pulse 68 /min Comments: Pattern: Regular Respiration Rate 16 /min Comments: Pattern: Undefined BP Systolic 104 mm[Hg] Comments: Patient Position: Sitting; Cuff Location: Right Arm; Cuff Size: Large BP Diastolic 76 mm[Hg] Comments: Patient Position: Sitting; Cuff Location: Right Arm; Cuff Size: Large Weight 0 lb Height 0 in Head Circumference 0.00 cm :17 Temperature 97.1 f Comments: Method: Oral Pulse 64 /min Comments: Pattern: Regular Respiration Rate 18 /min Comments: Pattern: Unlabored BP Systolic 110 mm[Hg] Comments: Patient Position: Sitting; Cuff Location: Right Arm; Cuff Size: Large BP Diastolic 68 mm[Hg] Comments: Patient Position: Sitting; Cuff Location: Right Arm; Cuff Size: Large Weight 224.125 lb Height 70 in Body Mass Index Calculated 32.16 kg/m2 Body Surface Area Calculated 2.19 m2 Head Circumference 0.00 cm :19 Temperature 97.3 f Comments: Method: Undefined Pulse 60 /min Comments: Pattern: Regular Respiration Rate 18 /min Comments: Pattern: Undefined BP Systolic 104 mm[Hg] Comments: Patient Position: Sitting; Cuff Location: Left Arm; Cuff Size: Standard BP Diastolic 74 mm[Hg] Comments: Patient Position: Sitting; Cuff Location: Left Arm; Cuff Size: Standard Weight 222 lb Height 0 in Head Circumference 0.00 cm :02 Temperature 98.2 f Comments: Method: Undefined Pulse 72 /min Comments: Pattern: Regular Respiration Rate 16 /min Comments: Pattern: Undefined BP Systolic 102 mm[Hg] Comments: Patient Position: Sitting; Cuff Location: Left Arm; Cuff Size: Large BP Diastolic 74 mm[Hg] Comments: Patient Position: Sitting; Cuff Location: Left Arm; Cuff Size: Large Weight 222 lb Height 0 in Head Circumference 0.00 cm :53 Temperature 98.2 f Comments: Method: Oral Pulse 64 /min Comments: Pattern: Regular Respiration Rate 16 /min Comments: Pattern: Unlabored BP Systolic 100 mm[Hg] Comments: Patient Position: Sitting; Cuff Location: Right Arm; Cuff Size: Large BP Diastolic 70 mm[Hg] Comments: Patient Position: Sitting; Cuff Location: Right Arm; Cuff Size: Large Weight 220 lb Height 0 in Head Circumference 0.00 cm :33 Pulse 70 /min Comments: Pattern: Regular Respiration Rate 16 /min Comments: Pattern: Unlabored BP Systolic 120 mm[Hg] Comments: Patient Position: Sitting; Cuff Location: Left Arm; Cuff Size: Standard BP Diastolic 74 mm[Hg] Comments: Patient Position: Sitting; Cuff Location: Left Arm; Cuff Size: Standard Weight 0 lb Height 0 in Head Circumference 0.00 cm :49 Pulse 60 /min Comments: Pattern: Regular BP Systolic 118 mm[Hg] Comments: Patient Position: Supine; Cuff Location: Right Arm; Cuff Size: Standard BP Diastolic 72 mm[Hg] Comments: Patient Position: Supine; Cuff Location: Right Arm; Cuff Size: Standard Weight 0 lb Height 0 in Head Circumference 0.00 cm :49 Pulse 60 /min Comments: Pattern: Regular BP Systolic 110 mm[Hg] Comments: Patient Position: Sitting; Cuff Location: Right Arm; Cuff Size: Standard BP Diastolic 64 mm[Hg] Comments: Patient Position: Sitting; Cuff Location: Right Arm; Cuff Size: Standard Weight 0 lb Height 0 in Head Circumference 0.00 cm :49 Pulse 64 /min Comments: Pattern: Regular BP Systolic 110 mm[Hg] Comments: Patient Position: Standing; Cuff Location: Right Arm; Cuff Size: Standard BP Diastolic 68 mm[Hg] Comments: Patient Position: Standing; Cuff Location: Right Arm; Cuff Size: Standard Weight 0 lb Height 0 in Head Circumference 0.00 cm :31 Temperature 99 f Comments: Method: Oral Pulse 68 /min Comments: Pattern: Regular Respiration Rate 18 /min Comments: Pattern: Unlabored BP Systolic 142 mm[Hg] Comments: Patient Position: Sitting; Cuff Location: Left Arm; Cuff Size: Standard BP Diastolic 90 mm[Hg] Comments: Patient Position: Sitting; Cuff Location: Left Arm; Cuff Size: Standard Weight 0 lb Height 0 in Head Circumference 0.00 cm :04 Temperature 98.1 f Comments: Method: Oral Pulse 64 /min Comments: Pattern: Regular Respiration Rate 18 /min Comments: Pattern: Unlabored BP Systolic 110 mm[Hg] Comments: Patient Position: Sitting; Cuff Location: Right Arm; Cuff Size: Standard BP Diastolic 64 mm[Hg] Comments: Patient Position: Sitting; Cuff Location: Right Arm; Cuff Size: Standard Weight 220 lb Height 0 in Head Circumference 0.00 cm :37 Pulse 60 /min Comments: Pattern: Regular Respiration Rate 16 /min Comments: Pattern: Unlabored BP Systolic 124 mm[Hg] Comments: Patient Position: Sitting; Cuff Location: Left Arm; Cuff Size: Standard BP Diastolic 70 mm[Hg] Comments: Patient Position: Sitting; Cuff Location: Left Arm; Cuff Size: Standard Weight 218.125 lb Height 68.5 in Body Mass Index Calculated 32.68 kg/m2 Body Surface Area Calculated 2.13 m2 Head Circumference 0.00 cm :53 Temperature 98.1 f Comments: Method: Oral Pulse 68 /min Comments: Pattern: Regular Respiration Rate 16 /min Comments: Pattern: Unlabored BP Systolic 96 mm[Hg] Comments: Patient Position: Sitting; Cuff Location: Right Arm; Cuff Size: Standard BP Diastolic 72 mm[Hg] Comments: Patient Position: Sitting; Cuff Location: Right Arm; Cuff Size: Standard Weight 211 lb Height 0 in Head Circumference 0.00 cm :18 Temperature 98.6 f Comments: Method: Oral Pulse 62 /min Comments: Pattern: Regular Respiration Rate 16 /min Comments: Pattern: Unlabored BP Systolic 118 mm[Hg] Comments: Patient Position: Sitting; Cuff Location: Left Arm; Cuff Size: Standard BP Diastolic 76 mm[Hg] Comments: Patient Position: Sitting; Cuff Location: Left Arm; Cuff Size: Standard Weight 218 lb Height 0 in Head Circumference 0.00 cm :09 Temperature 97.1 f Comments: Method: Oral Pulse 60 /min Comments: Pattern: Regular Respiration Rate 16 /min Comments: Pattern: Unlabored BP Systolic 112 mm[Hg] Comments: Patient Position: Sitting; Cuff Location: Right Arm; Cuff Size: Standard BP Diastolic 74 mm[Hg] Comments: Patient Position: Sitting; Cuff Location: Right Arm; Cuff Size: Standard Weight 218 lb Height 0 in Head Circumference 0.00 cm :19 Temperature 98.6 f Comments: Method: Oral Pulse 76 /min Comments: Pattern: Regular Respiration Rate 16 /min Comments: Pattern: Unlabored O2 SAT 97 % Comments: Room air BP Systolic 110 mm[Hg] Comments: Patient Position: Sitting; Cuff Location: Left Arm; Cuff Size: Standard BP Diastolic 70 mm[Hg] Comments: Patient Position: Sitting; Cuff Location: Left Arm; Cuff Size: Standard Weight 0 lb Height 0 in Head Circumference 0.00 cm :05 Temperature 98.7 f Comments: Method: Oral Pulse 60 /min Comments: Pattern: Regular Respiration Rate 16 /min Comments: Pattern: Unlabored BP Systolic 108 mm[Hg] Comments: Patient Position: Sitting; Cuff Location: Left Arm; Cuff Size: Large BP Diastolic 74 mm[Hg] Comments: Patient Position: Sitting; Cuff Location: Left Arm; Cuff Size: Large Weight 216 lb Height 68.5 in Body Mass Index Calculated 32.36 kg/m2 Body Surface Area Calculated 2.12 m2 Head Circumference 0.00 cm :59 Temperature 98.5 f Comments: Method: Oral Pulse 68 /min Comments: Pattern: Regular Respiration Rate 16 /min Comments: Pattern: Unlabored BP Systolic 110 mm[Hg] Comments: Patient Position: Supine; Cuff Location: Left Arm; Cuff Size: Standard BP Diastolic 62 mm[Hg] Comments: Patient Position: Supine; Cuff Location: Left Arm; Cuff Size: Standard Weight 216 lb Height 68.5 in Body Mass Index Calculated 32.36 kg/m2 Body Surface Area Calculated 2.12 m2 Head Circumference 0.00 cm :50 Temperature 98.1 f Comments: Method: Oral Pulse 64 /min Comments: Pattern: Regular Respiration Rate 16 /min Comments: Pattern: Unlabored BP Systolic 102 mm[Hg] Comments: Patient Position: Sitting; Cuff Location: Left Arm; Cuff Size: Standard BP Diastolic 64 mm[Hg] Comments: Patient Position: Sitting; Cuff Location: Left Arm; Cuff Size: Standard Weight 218 lb Height 68.5 in Body Mass Index Calculated 32.66 kg/m2 Body Surface Area Calculated 2.13 m2 Head Circumference 0.00 cm :45 Temperature 97.7 f Comments: Method: Oral Pulse 74 /min Comments: Pattern: Regular Respiration Rate 20 /min Comments: Pattern: Unlabored BP Systolic 114 mm[Hg] Comments: Patient Position: Sitting; Cuff Location: Left Arm; Cuff Size: Standard BP Diastolic 80 mm[Hg] Comments: Patient Position: Sitting; Cuff Location: Left Arm; Cuff Size: Standard Weight 0 lb Height 0 in Head Circumference 0.00 cm Results Date Description Value Details [id number] CBC W/Diff, Automated Comments: [facility] [id number] [place], [place], [id number] Absolute Lymph 1.76 {X10_3/ul} (Normal) Range: 0.83-4.51 Absolute Neut 3.1 {X10_3/uL} (Normal) Range: 2.0-7.7 IM GRAN % 0.200 % (Normal) Range: 0.0-0.9 Comments: IG% - Immature Granulocytes (promyelocytes, myelocytes andmetamyelocytes) > 1% indicates that a LEFT SHIFT is Present. BASO% 0.4 % (Normal) Range: 0-1 EO% 3.4 % (Normal) Range: 0-5 MONO% 9.6 % (Normal) Range: 0-10 LY% 31.2 % (Normal) Range: 19-41 NEUT% 55.2 % (Normal) Range: 47-70 MPV 8.6 fL (Normal) Range: 6.2-12.0 PLT 174 K/mm3 (Normal) Range: 150-450 RDW SD 47.4 fL (Abnormal) Range: 35.1-43.9 RDW CV 14.2 % (Normal) Range: 11.6-14.6 MCHC 33.1 {g/gl} (Normal) Range: 32-36 MCH 30.6 pg (Normal) Range: 27.0-32.0 MCV 92.5 fL (Normal) Range: 80-94 HCT 39.3 % (Abnormal) Range: 40-54 HGB 13.0 g/dL (Normal) Range: 13.0-16.5 RBC 4.25 {M/mm3} (Abnormal) Range: 4.6-6.2 WBC 5.7 K/mm3 (Normal) Range: 4.4-11.0 [id number] Comprehensive Metabolic Profil Comments: [facility] [address] [place], [place], [id number] ; fu 10-16 DF GAP 9 (Normal) Range: 5-15 CO2 28.0 mmol/L (Normal) Range: 21.0-32.0 CL 100 mmol/L (Normal) Range: 98-107 K 4.1 mmol/L (Normal) Range: 3.5-5.1 NA 137 mmol/L (Normal) Range: 136-145 T BILI 0.50 mg/dL (Normal) Range: 0.20-1.00 ALT 27 U/L (Normal) Range: 16-61 ALK P 53 U/L (Normal) Range: 45-117 AST 17 U/L (Normal) Range: 15-37 CA 8.5 mg/dL (Normal) Range: 8.5-10.1 A/G 1.0 {RATIO} (Normal) Range: 0.9-2.4 GLOB 3.4 g/dL (Normal) Range: 2.2-4.2 ALB 3.3 g/dL (Normal) Range: 3.2-5.0 T PROT 6.7 g/dL (Normal) Range: 6.4-8.2 BUN/CRE 11.6 {RATIO} (Normal) Range: 10-20 EST GFR - AA 85 mL/min (Normal) Comments: GFR Calc EST GFR 70 mL/min (Normal) Comments: Non- GFR Calc CREAT,SERUM 1.12 mg/dL (Normal) Range: 0.70-1.30 Comments: The validity of the calculated GFR AND GFRAA in patients over70 years has not been determined. Clinical correlation isessential. BUN 13 mg/dL (Normal) Range: 7-18 GLU 108 mg/dL (Abnormal) Range: 74-106 Comments: Fasting Glucose result from 100 to 125 mg/dLsuggests IMPAIRED HOMEOSTASIS per A.D.A. criteria.Please note revised GLUCOSE reference range ipnwakeuz06/02/2018. [id number] Hemoglobin A1c Comments: [facility] [id number] [place], [address] HGB A1C 6.0 % (Normal) Range: 4.2-6.3 [id number] Lipid Profile Comments: [facility] [address] [place], [address] VLDL 24 mg/dL (Normal) Range: 5-40 LDL 68 mg/dL (Normal) Range: 0-130 HDL 53 mg/dL (Normal) Comments: The drugs N-Acetylcysteine and Metamizole may falselydepress this assay. Reference Range HDL <40 mg/dL Low HDL Cholesterol HDL >or= 60 mg/dL High HDL Cholesterol TRIG 120 mg/dL (Normal) Comments: The drugs N-Acetylcysteine and Metamizole may falselydepress this assay.Serum Triglycerides Reference Interval Normal <150 mg/dL Borderline high 150 - 199 mg/dL High 200 - 499 mg/dL Very High > or = 500 mg/dL CHOL 145 mg/dL (Normal) Comments: <200 mg/dL Desirable 200-240 mg/dL Borderline >240 mg/dL High Risk [id number] PSA,Total - Annual Screen Comments: [facility] [address] [place], [place], [address] PSA,TOT SCREEN 0.50 ng/mL (Normal) Range: 0.00-4.00 Comments: This test was performed using the TPSA assay method for theBrowsarity chemistry system. Values obtained with differentassay methods cannot be used interchangably.When changing PSA assays in the course of monitoring apatient, additional sequential testing should be carriedout to confirm baseline values. [id number] Aspergillus Antibodies Comments: [facility] (refer to report for specific site)refer to report for address and phone number Asp. niger Negative (Normal) Asp. flavus Negative (Normal) Asp. fumigatus Negative (Normal) [id number] Immunoglobulin E Comments: [facility] (refer to report for specific site)refer to report for address and phone number IMMUNO E 19 {IU/mL} (Normal) Range: 0-100 [id number] Immunoglobulin G Comments: [facility] (refer to report for specific site)refer to report for address and phone number IMMUNO G 702 mg/dL (Normal) Range: 700-1600 Comments: Performed at: [address] [id number] Director: Joseph Velez MD, Phone: [phone] at: [address] [id number] Director: Hugo Britt PhD, Phone: [phone] [id number] Miscellaneous Lab Comments: Comments: [id number] CASTRO,RTTest(s) [facility]: [facility] [address] [place], [address] Procedure MISC Comments: TEST RESULT UNITS REFERENCE INTERVALA. fumigatus #1 Abs NEGATIVE NEGATIVE TESTING PERFORMED AT [facility]. O LAB (Normal) RIGINAL REPORT ON FILE IN LAB CONTAINS ADDITIONAL TEST SITE INFORMATION. TEST [id number] Acetylcholine Receptor Comments: Has Patient had [facility] In[facility]ray?: [facility])refer to report for address and phone number ACTYL [id number] < 0.03 nmol/L (Normal) Range: 0.00-0.24 Comments: Negative: 0.00 - 0.24 Borderline: 0.25 - 0.40 Positive: > 0.40Performed at: [place] [id number] [id number] Director: Joseph Velez MD, Phone: [phone] [id number] BUN 9 mg/dL (Normal) Comments: [facility] [address] [place], [address] Range: 7-18 [id number] Serum Creatinine AND GFR Comments: [address] [place], [address] EST GFR - AA 100 mL/min (Normal) Comments: GFR Calc EST GFR 83 mL/min (Normal) Comments: Non- GFR Calc CREAT,SERUM 0.97 mg/dL (Normal) Range: 0.70-1.30 Comments: The validity of the calculated GFR AND GFRAA in patients over70 years has not been determined. Clinical correlation isessential. [id number] Culture, Fungus 8482 Comments: [place] [address] [place], [address] CUF See Note Comments: Cu,Ofmnht4742 TESTING PERFORMED AT [facility]. ORIGINAL REPORT ON FILE IN LAB CONTAINS ADDITIONAL TEST SITE INFORMATION. (Normal) ORGANISM 1: Barron albicansAmount Growth Growth ORGANISM 2: Penicillium speciesAmount Growth Growth [id number] Culture, Sputum Comments: [place] [id number] [place], [address] CUSP See Note (Normal) Comments: Gram StainAcceptable Specimen? Yes (<25 Epithelial cells per/lpf) Gram Stain 2+ White Blood Cells 2+ Epithelial cells 4+ Gram positive cocci 4+ Gram positive rods Resp. CultureNo Haemoph ilus, Streptococcus pneumoniae, beta-hemolytic Streptococcus or Staphylococcus aureus isolated. ORGANISM 1: Yeast Like OrganismAmount Growth Rare ORGANISM 2: Mixed FloraAmount Growth 3+ :59 CBC W/Diff, Automated Comments: [facility] [address] [place], [address] Absolute Lymph 1.98 {X10_3/ul} (Normal) Range: 0.83-4.51 Absolute Neut 8.1 {X10_3/uL} (Abnormal) Range: 2.0-7.7 IM GRAN % 0.500 % (Normal) Range: 0.0-0.9 Comments: IG% - Immature Granulocytes (promyelocytes, myelocytes andmetamyelocytes) > 1% indicates that a LEFT SHIFT is Present. BASO% 0.1 % (Normal) Range: 0-1 EO% 0.3 % (Normal) Range: 0-5 MONO% 5.1 % (Normal) Range: 0-10 LY% 18.4 % (Abnormal) Range: 19-41 NEUT% 75.6 % (Abnormal) Range: 47-70 MPV 8.4 fL (Normal) Range: 6.2-12.0 PLT 338 K/mm3 (Normal) Range: 150-450 RDW SD 44.7 fL (Abnormal) Range: 35.1-43.9 RDW CV 13.9 % (Normal) Range: 11.6-14.6 MCHC 33.7 {g/gl} (Normal) Range: 32-36 MCH 30.4 pg (Normal) Range: 27.0-32.0 MCV 90.2 fL (Normal) Range: 80-94 HCT 40.7 % (Normal) Range: 40-54 HGB 13.7 g/dL (Normal) Range: 13.0-16.5 RBC 4.51 {M/mm3} (Abnormal) Range: 4.6-6.2 WBC 10.8 K/mm3 (Normal) Range: 4.4-11.0 [id number] Comprehensive Metabolic Profil Comments: [facility] [address] [place], [place], [id number] GAP 10 (Normal) Range: 5-15 CO2 27.0 mmol/L (Normal) Range: 21.0-32.0 CL 100 mmol/L (Normal) Range: 98-107 K 4.0 mmol/L (Normal) Range: 3.5-5.1 NA 137 mmol/L (Normal) Range: 136-145 T BILI 0.40 mg/dL (Normal) Range: 0.20-1.00 ALT 28 U/L (Normal) Range: 16-61 ALK P 51 U/L (Normal) Range: 45-117 AST 13 U/L (Abnormal) Range: 15-37 CA 8.6 mg/dL (Normal) Range: 8.5-10.1 A/G 0.9 {RATIO} (Normal) Range: 0.9-2.4 GLOB 3.8 g/dL (Normal) Range: 2.2-4.2 ALB 3.4 g/dL (Normal) Range: 3.2-5.0 T PROT 7.2 g/dL (Normal) Range: 6.4-8.2 BUN/CRE 18.0 {RATIO} (Normal) Range: 10-20 EST GFR - AA 119 mL/min (Normal) Comments: GFR Calc EST GFR 98 mL/min (Normal) Comments: Non- GFR Calc CREAT,SERUM 0.83 mg/dL (Normal) Range: 0.70-1.30 Comments: The validity of the calculated GFR AND GFRAA in patients over70 years has not been determined. Clinical correlation isessential. BUN 15 mg/dL (Normal) Range: 7-18 GLU 105 mg/dL (Normal) Range: 74-106 Comments: Fasting Glucose result from 100 to 125 mg/dLsuggests IMPAIRED HOMEOSTASIS per A.D.A. criteria.Please note revised GLUCOSE reference range [id number]/02/2018. [id number] Hemoglobin A1c Comments: [facility] [address] [place], [place], [id number] HGB A1C 6.2 % (Normal) Range: 4.2-6.3 [id number] Lipid Profile Comments: [facility] [id number] [place], [place], [id number] VLDL 13 mg/dL (Normal) Range: 5-40 LDL 86 mg/dL (Normal) Range: 0-130 HDL 70 mg/dL (Normal) Comments: The drugs N-Acetylcysteine and Metamizole may falselydepress this assay. Reference Range HDL <40 mg/dL Low HDL Cholesterol HDL >or= 60 mg/dL High HDL Cholesterol TRIG 67 mg/dL (Normal) Comments: The drugs N-Acetylcysteine and Metamizole may falselydepress this assay.Serum Triglycerides Reference Interval Normal <150 mg/dL Borderline high 150 - 199 mg/dL High 200 - 499 mg/dL Very High > or = 500 mg/dL CHOL 169 mg/dL (Normal) Comments: <200 mg/dL Desirable 200-240 mg/dL Borderline >240 mg/dL High Risk [id number] Microalb:Creat Ratio,Random UR Comments: [facility] [address] [place], [place], [id number] MALB:CREAT 10.1 {mg/g_CRE} (Normal) MICROALBUMIN,UR 5.6 mg/L (Normal) UR CREAT 55.70 mg/dL (Normal) [id number] Basic Metabolic Profile (BMP) Comments: [facility] [address] [place], [place], [id number] GAP 6 (Normal) Range: 5-15 CO2 29.0 mmol/L (Normal) Range: 21.0-32.0 CL 102 mmol/L (Normal) Range: 98-107 K 4.1 mmol/L (Normal) Range: 3.5-5.1 NA 137 mmol/L (Normal) Range: 136-145 CA 8.6 mg/dL (Normal) Range: 8.5-10.1 BUN/CRE 10.6 {RATIO} (Normal) Range: 10-20 EST GFR - AA 104 mL/min (Normal) Comments: GFR Calc EST GFR 86 mL/min (Normal) Comments: Non- GFR Calc CREAT,SERUM 0.94 mg/dL (Normal) Range: 0.70-1.30 Comments: The validity of the calculated GFR AND GFRAA in patients over70 years has not been determined. Clinical correlation isessential. BUN 10 mg/dL (Normal) Range: 7-18 GLU 98 mg/dL (Normal) Range: 74-106 Comments: Please note revised GLUCOSE reference range [id number]/02/2018. [id number] Lipid Profile Comments: [facility] [address] [place], [place], [address] VLDL 22 mg/dL (Normal) Range: 5-40 LDL 76 mg/dL (Normal) Range: 0-130 HDL 47 mg/dL (Normal) Comments: The drugs N-Acetylcysteine and Metamizole may falselydepress this assay. Reference Range HDL <40 mg/dL Low HDL Cholesterol HDL >or= 60 mg/dL High HDL Cholesterol TRIG 111 mg/dL (Normal) Comments: The drugs N-Acetylcysteine and Metamizole may falselydepress this assay.Serum Triglycerides Reference Interval Normal <150 mg/dL Borderline high 150 - 199 mg/dL High 200 - 499 mg/dL Very High > or = 500 mg/dL CHOL 145 mg/dL (Normal) Comments: <200 mg/dL Desirable 200-240 mg/dL Borderline >240 mg/dL High Risk [id number]-Gsh-464033:45 Liver Profile Comments: [facility] [address]cl[address] [place], [place], [id number] D BILI 0.13 mg/dL (Normal) Range: 0.00-0.30 T BILI 0.50 mg/dL (Normal) Range: 0.20-1.00 ALT 27 U/L (Normal) Range: 16-61 ALK P 53 U/L (Normal) Range: 45-117 AST 20 U/L (Normal) Range: 15-37 GLOB 4.3 g/dL (Abnormal) Range: 2.2-4.2 ALB 3.0 g/dL (Abnormal) Range: 3.2-5.0 T PROT 7.3 g/dL (Normal) Range: 6.4-8.2 55-Hzr-112765:31 Basic Metabolic Profile (BMP) Comments: [facility] [address]mlot[address] [place], [place], [id number] GAP 4 (Abnormal) Range: 5-15 CO2 27.0 mmol/L (Normal) Range: 21.0-32.0 CL 104 mmol/L (Normal) Range: 98-107 K 4.3 mmol/L (Normal) Range: 3.5-5.1 NA 135 mmol/L (Abnormal) Range: 136-145 CA 8.5 mg/dL (Normal) Range: 8.5-10.1 BUN/CRE 21.5 {RATIO} (Abnormal) Range: 10-20 EST GFR - AA 127 mL/min (Normal) Comments: GFR Calc EST GFR 105 mL/min (Normal) Comments: Non- GFR Calc CREAT,SERUM 0.79 mg/dL (Normal) Range: 0.70-1.30 Comments: The validity of the calculated GFR AND GFRAA in patients over70 years has not been determined. Clinical correlation isessential. BUN 17 mg/dL (Normal) Range: 7-18 GLU 116 mg/dL (Abnormal) Range: 74-106 Comments: Fasting Glucose result from 100 to 125 mg/dLsuggests IMPAIRED HOMEOSTASIS per A.D.A. criteria.Please note revised GLUCOSE reference range gcawnfmqr77/02/2018. 32-Tzr-075896:31 CBC-Complete Blood Cnt No Diff Comments: [facility] [address] [place], [place], [id number] MPV 8.7 fL (Normal) Range: 6.2-12.0 PLT 245 K/mm3 (Normal) Range: 150-450 RDW SD 46.0 fL (Abnormal) Range: 35.1-43.9 RDW CV 14.0 % (Normal) Range: 11.6-14.6 MCHC 33.2 {g/gl} (Normal) Range: 32-36 MCH 30.7 pg (Normal) Range: 27.0-32.0 MCV 92.6 fL (Normal) Range: 80-94 HCT 38.6 % (Abnormal) Range: 40-54 HGB 12.8 g/dL (Abnormal) Range: 13.0-16.5 RBC 4.17 {M/mm3} (Abnormal) Range: 4.6-6.2 WBC 9.6 K/mm3 (Normal) Range: 4.4-11.0 28-Iuf-450731:31 Partial Thromboplast Time Comments: [place] [address] [place], [address] PTT 26.1 s (Normal) Range: 24.1-36.2 78-Oiz-543090:31 Prothrombin Time w/INR Comments: [address] [place], [address] INR 0.9 (Normal) PROTIME 12.5 s (Normal) Range: 11.7-14.9 :00 Culture, Fungus 8482 Comments: [address] [place], [address] CUF See Note Comments: Cu,Jljerh9010 TESTING PERFORMED AT [facility]. ORIGINAL REPORT ON FILE IN LAB CONTAINS ADDITIONAL TEST SITE INFORMATION. (Normal) ORGANISM 1: Barron albicansAmount Growth Growth ORGANISM 2: Penicillium speciesAmount Growth Growth ORGANISM 3: Aspergillus speciesAmount Growth Growth 94-Elu-87782:00 Culture, Sputum Comments: [address] [place], [id number] CUSP See Note (Normal) Comments: Gram StainAcceptable Specimen? Yes (<25 Epithelial cells per/lpf) Gram Stain 1+ White Blood Cells Rare Epithelial cells 4+ Gram positive rods 1+ Gram negative rods Resp. Culture Mixed nor mal respiratory ashkan. No Haemophilus, Streptococcus pneumoniae, beta-hemolytic Streptococcus or Staphylococcus aureus isolated. 24-Toz-367936:00 Culture, Sputum Comments: [address] [place], [id number] CUSP See Note (Normal) Comments: Gram StainAcceptable Specimen? Yes (<25 Epithelial cells per/lpf) Gram Stain 1+ White Blood Cells Rare Epithelial cells 3+ Gram positive cocci Resp. CultureMixed normal respiratory ashkan. No Haemophilus, Streptococcus pneumoniae, beta-hemolytic Streptococcus or Staphylococcus aureus isolated. 70-Gfw-895259:44 TESTOSTERONE FREE (74057) Comments: PATIENT NOT FASTINGPERFORMED BY: [address] [id number] BY: [address] [id number] Free Testosterone(Direct) 2.6 pg/mL (Abnormal) Range: 6.6-18.1 22-Tcv-313661:44 HEPATITIS C ANTIBODY Comments: PATIENT NOT FASTINGPERFORMED BY: [address] [id number] BY: [address] [id number] ([id number]) Hep C Virus Ab 0.1 {s/co_ratio} (Normal) Range: 0.0-0.9 Comments: Negative: < 0.8 Indeterminate: 0.8 - 0.9 Positive: > 0.9 . The CDC recommends that a positive HCV antibody result be followed up with a HCV Nucleic Acid Amplification test (148456). 28-Ack-585473:44 CBC W/AUTO DIFF WBC Comments: PATIENT NOT FASTINGPERFORMED BY: [address] [id number] BY: [address] [id number] ([id number]) Immature Grans (Abs) 0.0 {x10E3/uL} (Normal) Range: 0.0-0.1 Immature Granulocytes 0 % (Normal) Baso (Absolute) 0.0 {x10E3/uL} (Normal) Range: 0.0-0.2 Eos (Absolute) 0.2 {x10E3/uL} (Normal) Range: 0.0-0.4 Monocytes(Absolute) 0.4 {x10E3/uL} (Normal) Range: 0.1-0.9 Lymphs (Absolute) 2.0 {x10E3/uL} (Normal) Range: 0.7-3.1 Neutrophils (Absolute) 3.4 {x10E3/uL} (Normal) Range: 1.4-7.0 Basos 0 % (Normal) Eos 3 % (Normal) Monocytes 7 % (Normal) Lymphs 33 % (Normal) Neutrophils 57 % (Normal) Platelets 279 {x10E3/uL} (Normal) Range: 150-379 RDW 14.0 % (Normal) Range: 12.3-15.4 MCHC 33.7 g/dL (Normal) Range: 31.5-35.7 MCH 31.2 pg (Normal) Range: 26.6-33.0 MCV 93 fL (Normal) Range: 79-97 Hematocrit 40.6 % (Normal) Range: 37.5-51.0 Hemoglobin 13.7 g/dL (Normal) Range: 13.0-17.7 RBC 4.39 {x10E6/uL} (Normal) Range: 4.14-5.80 WBC 6.1 {x10E3/uL} (Normal) Range: 3.4-10.8 27-Ihu-626490:44 METABOLIC PANEL, Comments: PATIENT NOT FASTINGPERFORMED BY: CB [facility] Dgnjmp[address] [facility] [id number] BY: BN [facility] [address] [id number] COMPREHENSIVE ([id number]) ALT (SGPT) 17 [iU]/L (Normal) Range: 0-44 AST (SGOT) 18 [iU]/L (Normal) Range: 0-40 Alkaline Phosphatase 51 [iU]/L (Normal) Range: 39-117 Bilirubin, Total 0.5 mg/dL (Normal) Range: 0.0-1.2 A/G Ratio 1.4 (Normal) Range: 1.2-2.2 Globulin, Total 2.6 g/dL (Normal) Range: 1.5-4.5 Albumin 3.7 g/dL (Normal) Range: 3.6-4.8 Protein, Total 6.3 g/dL (Normal) Range: 6.0-8.5 Calcium 8.9 mg/dL (Normal) Range: 8.6-10.2 Carbon Dioxide, Total 23 mmol/L (Normal) Range: 18-29 Chloride 101 mmol/L (Normal) Range: 96-106 Potassium 4.3 mmol/L (Normal) Range: 3.5-5.2 Sodium 141 mmol/L (Normal) Range: 134-144 BUN/Creatinine Ratio 17 (Normal) Range: 10-24 eGFR If Africn Am 107 mL/min/1.73 (Normal) eGFR If NonAfricn Am 93 mL/min/1.73 (Normal) Creatinine 0.84 mg/dL (Normal) Range: 0.76-1.27 BUN 14 mg/dL (Normal) Range: 8-27 Glucose 102 mg/dL (Abnormal) Range: 65-99 76-Pmk-903000:15 HgA1C , Office (83338) HgA1C , Office 5.7 % (Normal) Range: 4.6 - 7.1 76-Sfs-902383:30 CBC W/Diff, Automated Comments: [facility] [address] [place], [place], [address] Absolute Lymph 1.76 {X10_3/ul} (Normal) Range: 0.83-4.51 Absolute Neut 4.3 {X10_3/uL} (Normal) Range: 2.0-7.7 IM GRAN % 0.300 % (Normal) Range: 0.0-0.9 Comments: IG% - Immature Granulocytes (promyelocytes, myelocytes andmetamyelocytes) > 1% indicates that a LEFT SHIFT is Present. BASO% 0.1 % (Normal) Range: 0-1 EO% 2.5 % (Normal) Range: 0-5 MONO% 7.0 % (Normal) Range: 0-10 LY% 26.2 % (Normal) Range: 19-41 NEUT% 63.9 % (Normal) Range: 47-70 MPV 8.9 fL (Normal) Range: 6.2-12.0 PLT 177 K/mm3 (Normal) Range: 150-450 RDW SD 48.7 fL (Abnormal) Range: 35.1-43.9 RDW CV 14.3 % (Normal) Range: 11.6-14.6 MCHC 33.0 {g/gl} (Normal) Range: 32-36 MCH 30.6 pg (Normal) Range: 27.0-32.0 MCV 92.8 fL (Normal) Range: 80-94 HCT 40.0 % (Normal) Range: 40-54 HGB 13.2 g/dL (Normal) Range: 13.0-16.5 RBC 4.31 {M/mm3} (Abnormal) Range: 4.6-6.2 WBC 6.7 K/mm3 (Normal) Range: 4.4-11.0 95-Cit-736731:30 Comprehensive Metabolic Profil Comments: [facility] [address] [place], [place], [address] GAP 9 (Normal) Range: 5-15 CO2 25.0 mmol/L (Normal) Range: 21.0-32.0 CL 100 mmol/L (Normal) Range: 98-107 K 3.7 mmol/L (Normal) Range: 3.5-5.1 NA 134 mmol/L (Abnormal) Range: 136-145 T BILI 0.80 mg/dL (Normal) Range: 0.20-1.00 ALT 21 U/L (Normal) Range: 12-78 ALK P 57 U/L (Normal) Range: 45-117 AST 13 U/L (Abnormal) Range: 15-37 CA 8.3 mg/dL (Abnormal) Range: 8.5-10.1 A/G 0.9 {RATIO} (Normal) Range: 0.9-2.4 GLOB 3.7 g/dL (Normal) Range: 2.2-4.2 ALB 3.3 g/dL (Abnormal) Range: 3.4-5.0 Comments: Please note revised Albumin AND Globulin reference rangeeffective 2016. T PROT 7.0 g/dL (Normal) Range: 6.4-8.2 BUN/CRE 13.6 {RATIO} (Normal) Range: 10-20 EST GFR - AA 124 mL/min (Normal) Comments: GFR Calc EST GFR 102 mL/min (Normal) Comments: Non- GFR Calc CREAT,SERUM 0.81 mg/dL (Normal) Range: 0.70-1.30 Comments: The validity of the calculated GFR AND GFRAA in patients over70 years has not been determined. Clinical correlation isessential. BUN 11 mg/dL (Normal) Range: 7-18 GLU 78 mg/dL (Normal) Range: 70-110 17-Dsr-734639:30 Culture, Urine Comments: [facility] [address] [place], [address] CUUR See Note (Normal) Comments: Urine CultureCulture exhibits no growth. 14-Yct-645015:30 Lipid Profile Comments: [facility] [address]. [place], [address] VLDL 19 mg/dL (Normal) Range: 5-40 LDL 124 mg/dL (Normal) Range: 0-130 HDL 60 mg/dL (Normal) Comments: The drugs N-Acetylcysteine and Metamizole may falselydepress this assay. Reference Range HDL <40 mg/dL Low HDL Cholesterol HDL >or= 60 mg/dL High HDL Cholesterol TRIG 95 mg/dL (Normal) Comments: The drugs N-Acetylcysteine and Metamizole may falselydepress this assay.Serum Triglycerides Reference Interval Normal <150 mg/dL Borderline high 150 - 199 mg/dL High 200 - 499 mg/dL Very High > or = 500 mg/dL CHOL 203 mg/dL (Abnormal) Comments: <200 mg/dL Desirable 200-240 mg/dL Borderline >240 mg/dL High Risk 50-Mzh-350724:10 Rapid Strep Test, Office (95349) Comments: Negative Rapid Strep Test, Office Negative (Normal) 17-Pgk-78751:51 THROAT CULTURE (23527) Comments: PATIENT NOT FASTINGPERFORMED BY: [employer] [facility] [id number] Information: SRC: Result 1 RRF (Normal) Comments: Routine respiratory ashkan Upper Respiratory Culture Final report (Normal) 43-Svl-928359:02 Rapid Flu (43101 x 2) Comments: Negative Influenza A Ag Negative (Normal) 44-Joe-879556:45 URINE WARREN CULTURE-IDENTIFICATN Comments: PERFORMED BY: [email or web address] [facility] [facility] [id number] Information: SRC: ([id number]) Result 1 NG36 (Normal) Comments: No growth in 36 - 48 hours. Urine Culture,Comprehensive Final report (Normal) 05-Tpz-271989:02 Urinalysis, Office (94492) UA - LEUKOCYTE ESTERASE Negative (Normal) UA - NITRITE Negative (Normal) URINE UROBILINGN MASSIEL TIMED Normal mg/dL (Normal) UA - PROTEIN Negative mg/dL (Normal) UA - PH 7 (Normal) UA - BLOOD Negative (Normal) UA - SPECIFIC GRAVITY 1.020 (Normal) UA - KETONES Negative mg/dL (Normal) UA - BILIRUBIN Negative (Normal) UA - GLUCOSE Negative (Normal) 87-Ylj-735065:22 CBC W/Diff, Automated Comments: [facility] [address]. [place], [place], [id number] Absolute Lymph 1.50 {X10_3/ul} (Normal) Range: 0.83-4.51 Absolute Neut 4.0 {X10_3/uL} (Normal) Range: 2.0-7.7 IM GRAN % 0.300 % (Normal) Range: 0.0-0.9 Comments: IG% - Immature Granulocytes (promyelocytes, myelocytes andmetamyelocytes) > 1% indicates that a LEFT SHIFT is Present. BASO% 0.3 % (Normal) Range: 0-1 EO% 3.2 % (Normal) Range: 0-5 MONO% 7.6 % (Normal) Range: 0-10 LY% 24.2 % (Normal) Range: 19-41 NEUT% 64.4 % (Normal) Range: 47-70 MPV 8.6 fL (Normal) Range: 6.2-12.0 PLT 222 K/mm3 (Normal) Range: 150-450 RDW SD 44.8 fL (Abnormal) Range: 35.1-43.9 RDW CV 13.5 % (Normal) Range: 11.6-14.6 MCHC 33.4 {g/gl} (Normal) Range: 32-36 MCH 30.9 pg (Normal) Range: 27.0-32.0 MCV 92.4 fL (Normal) Range: 80-94 HCT 40.1 % (Normal) Range: 40-54 HGB 13.4 g/dL (Normal) Range: 13.0-16.5 RBC 4.34 {M/mm3} (Abnormal) Range: 4.6-6.2 WBC 6.2 K/mm3 (Normal) Range: 4.4-11.0 99-Apl-017112:22 Comprehensive Metabolic Profil Comments: [facility] T[address]68 [facility] [address]. [place], [place], [address] ; will review opn 11/10 GAP 7 (Normal) Range: 5-15 CO2 26.0 mmol/L (Normal) Range: 21.0-32.0 CL 106 mmol/L (Normal) Range: 98-107 K 4.1 mmol/L (Normal) Range: 3.5-5.1 NA 139 mmol/L (Normal) Range: 136-145 T BILI 0.50 mg/dL (Normal) Range: 0.20-1.00 ALT 21 U/L (Normal) Range: 12-78 ALK P 56 U/L (Normal) Range: 45-117 AST 12 U/L (Abnormal) Range: 15-37 CA 8.2 mg/dL (Abnormal) Range: 8.5-10.1 A/G 0.9 {RATIO} (Normal) Range: 0.9-2.4 GLOB 3.5 g/dL (Normal) Range: 2.3-3.5 ALB 3.2 g/dL (Abnormal) Range: 3.4-5.0 T PROT 6.7 g/dL (Normal) Range: 6.4-8.2 BUN/CRE 18.8 {RATIO} (Normal) Range: 10-20 EST GFR - AA 136 mL/min (Normal) Comments: GFR Calc EST GFR 112 mL/min (Normal) Comments: Non- GFR Calc CREAT,SERUM 0.75 mg/dL (Normal) Range: 0.70-1.30 Comments: The validity of the calculated GFR AND GFRAA in patients over70 years has not been determined. Clinical correlation isessential. BUN 14 mg/dL (Normal) Range: 7-18 GLU 104 mg/dL (Normal) Range: 70-110 34-Qhk-619704:22 Hemoglobin A1c Comments: [facility] [address] [facility] [place], [address] HGB A1C 5.6 % (Normal) Range: 4.2-6.3 94-Nds-598530:22 Immunofixation, Serum Comments: [facility] (refer to report for specific site)refer to report for address and phone number PAULA RESULT,S Comment (Normal) Comments: No monoclonality detected. IMMUNOGL M 53 mg/dL (Normal) Range: 20-172 IMMUNO A 169 mg/dL (Normal) Range: 61-437 IMMUNO G 692 mg/dL (Abnormal) Range: 700-1600 91-Jho-830180:22 [employer] Comments: [facility] (refer to report for specific site)refer to report for address and phone number KAPPA/LAMBDA % 1.17 (Normal) Range: 0.26-1.65 Comments: Performed at: [address] [id number] Director: Hugo Britt PhD, Phone: [phone] FR LAMBDA LT CH 12.3 mg/L (Normal) Range: 5.7-26.3 FR KAPPA LT CHN 14.4 mg/L (Normal) Range: 3.3-19.4 72-Zed-579059:22 Lipid Profile Comments: [facility] [address] [place], [address] VLDL 20 mg/dL (Normal) Range: 5-40 LDL 85 mg/dL (Normal) Range: 0-130 HDL 52 mg/dL (Normal) Comments: The drugs N-Acetylcysteine and Metamizole may falselydepress this assay. Reference Range HDL <40 mg/dL Low HDL Cholesterol HDL >or= 60 mg/dL High HDL Cholesterol TRIG 102 mg/dL (Normal) Comments: The drugs N-Acetylcysteine and Metamizole may falselydepress this assay.Serum Triglycerides Reference Interval Normal <150 mg/dL Borderline high 150 - 199 mg/dL High 200 - 499 mg/dL Very High > or = 500 mg/dL CHOL 157 mg/dL (Normal) Comments: <200 mg/dL Desirable 200-240 mg/dL Borderline >240 mg/dL High Risk 81-Orx-951316:22 Microalb:Creat Ratio,Random UR Comments: [facility] [address] [place], [place], [id number] ; will review on 11/10 MALB:CREAT 5.6 {mg/g_CRE} (Normal) MICROALBUMIN,UR 7.2 mg/L (Normal) UR CREAT 128.00 mg/dL (Normal) 47-Dyr-774968:22 PSA,Total - Annual Screen Comments: [facility] [address] [place], [address] PSA,TOT SCREEN 0.63 ng/mL (Normal) Range: 0.00-4.00 Comments: This test was performed using the TPSA assay method for [employer] chemistry system. Values obtained with differentassay methods cannot be used interchangably.When changing PSA assays in the course of monitoring apatient, additional sequential testing should be carriedout to confirm baseline values. 74-Bjy-237524:07 CBC W/Diff, Automated Comments: [facility] [address] [place], [address] Absolute Lymph 1.42 {X10_3/ul} (Normal) Range: 0.83-4.51 Absolute Neut 4.0 {X10_3/uL} (Normal) Range: 2.0-7.7 IM GRAN % 0.300 % (Normal) Range: 0.0-0.9 Comments: IG% - Immature Granulocytes (promyelocytes, myelocytes andmetamyelocytes) > 1% indicates that a LEFT SHIFT is Present. BASO% 0.3 % (Normal) Range: 0-1 EO% 3.2 % (Normal) Range: 0-5 MONO% 8.6 % (Normal) Range: 0-10 LY% 23.0 % (Normal) Range: 19-41 NEUT% 64.6 % (Normal) Range: 47-70 MPV 8.9 fL (Normal) Range: 6.2-12.0 PLT 236 K/mm3 (Normal) Range: 150-450 RDW SD 44.8 fL (Abnormal) Range: 35.1-43.9 RDW CV 13.6 % (Normal) Range: 11.6-14.6 MCHC 33.7 {g/gl} (Normal) Range: 32-36 MCH 31.0 pg (Normal) Range: 27.0-32.0 MCV 91.8 fL (Normal) Range: 80-94 HCT 40.3 % (Normal) Range: 40-54 HGB 13.6 g/dL (Normal) Range: 13.0-16.5 RBC 4.39 {M/mm3} (Abnormal) Range: 4.6-6.2 WBC 6.2 K/mm3 (Normal) Range: 4.4-11.0 :07 Comprehensive Metabolic Profil Comments: [facility] [address] [place], [place], [id number] GAP 8 (Normal) Range: 5-15 CO2 27.0 mmol/L (Normal) Range: 21.0-32.0 CL 103 mmol/L (Normal) Range: 98-107 K 4.2 mmol/L (Normal) Range: 3.5-5.1 NA 138 mmol/L (Normal) Range: 136-145 T BILI 0.60 mg/dL (Normal) Range: 0.20-1.00 ALT 22 U/L (Normal) Range: 12-78 ALK P 68 U/L (Normal) Range: 45-117 AST 16 U/L (Normal) Range: 15-37 CA 8.4 mg/dL (Abnormal) Range: 8.5-10.1 A/G 0.9 {RATIO} (Normal) Range: 0.9-2.4 GLOB 3.7 g/dL (Abnormal) Range: 2.3-3.5 ALB 3.4 g/dL (Normal) Range: 3.4-5.0 T PROT 7.1 g/dL (Normal) Range: 6.4-8.2 BUN/CRE 11.5 {RATIO} (Normal) Range: 10-20 EST GFR - AA 102 mL/min (Normal) Comments: GFR Calc EST GFR 85 mL/min (Normal) Comments: Non- GFR Calc CREAT,SERUM 0.95 mg/dL (Normal) Range: 0.70-1.30 Comments: The validity of the calculated GFR AND GFRAA in patients over70 years has not been determined. Clinical correlation isessential. BUN 11 mg/dL (Normal) Range: 7-18 GLU 104 mg/dL (Normal) Range: 70-110 76-Gza-686503:07 Hemoglobin A1c Comments: [facility] [address]. [place], [place], [id number] HGB A1C 5.6 % (Normal) Range: 4.2-6.3 54-Cet-613718:07 PAULA + Protein Elect, Serum Comments: Is Patient Fasting? [facility] (refer to report for specific site)refer to report for address and phone number NOTE: Comment (Normal) Comments: Protein electrophoresis scan will follow via computer,mail, or field artillery basic delivery.Performed at: [address] [id number] Director: Hugo Britt PhD, Phone: [phone] PAULA RESULT,S Comment (Normal) Comments: No monoclonality detected. A/G RATIO 1.2 (Normal) Range: 0.7-1.7 GLOBULIN, TOTAL 3.0 g/dL (Normal) Range: 2.2-3.9 M-SPIKE g/dL (Normal) Comments: Not Observed GAMMA GLOBULIN 0.7 g/dL (Normal) Range: 0.4-1.8 BETA GLOBULIN 1.1 g/dL (Normal) Range: 0.7-1.3 ACPLH-8-IRIQ 0.8 g/dL (Normal) Range: 0.4-1.0 ZRJKQ-5-MUDB 0.3 g/dL (Normal) Range: 0.0-0.4 ALBUMIN 3.3 g/dL (Normal) Range: 2.9-4.4 IMMUNOGL M 53 mg/dL (Normal) Range: 20-172 IMMUNO A 177 mg/dL (Normal) Range: 61-437 IMMUNO G 761 mg/dL (Normal) Range: 700-1600 PROTEIN,TOTAL 6.3 g/dL (Normal) Range: 6.0-8.5 48-Uah-634102:07 Lipid Profile Comments: [facility] [address] [facility] [place], [place], [id number] VLDL 21 mg/dL (Normal) Range: 5-40 LDL 96 mg/dL (Normal) Range: 0-130 HDL 51 mg/dL (Normal) Comments: The drugs N-Acetylcysteine and Metamizole may falsely deressthis assay. Reference Range HDL <40 mg/dL Low HDL Cholesterol HDL >or= 60 mg/dL High HDL Cholesterol TRIG 105 mg/dL (Normal) Comments: The drugs N-Acetylcysteine and Metamizole may falsely deressthis assay.Serum Triglycerides Reference Interval Normal <150 mg/dL Borderline high 150 - 199 mg/dL High 200 - 499 mg/dL Very High > or = 500 mg/dL CHOL 168 mg/dL (Normal) Comments: <200 mg/dL Desirable 200-240 mg/dL Borderline >240 mg/dL High Risk 30-Aac-392163:01 CBC W/Diff, Automated Comments: [facility] [address] [place], [address] Absolute Lymph 1.62 {X10_3/ul} (Normal) Range: 0.83-4.51 Absolute Neut 5.2 {X10_3/uL} (Normal) Range: 2.0-7.7 IM GRAN % 0.900 % (Normal) Range: 0.0-0.9 Comments: IG% - Immature Granulocytes (promyelocytes, myelocytes andmetamyelocytes) > 1% indicates that a LEFT SHIFT is Present. BASO% 0.3 % (Normal) Range: 0-1 EO% 1.6 % (Normal) Range: 0-5 MONO% 6.8 % (Normal) Range: 0-10 LY% 21.5 % (Normal) Range: 19-41 NEUT% 68.9 % (Normal) Range: 47-70 MPV 8.7 fL (Normal) Range: 6.2-12.0 PLT 249 K/mm3 (Normal) Range: 150-450 RDW SD 44.3 fL (Abnormal) Range: 35.1-43.9 RDW CV 12.8 % (Normal) Range: 11.6-14.6 MCHC 33.2 {g/gl} (Normal) Range: 32-36 MCH 31.5 pg (Normal) Range: 27.0-32.0 MCV 95.0 fL (Abnormal) Range: 80-94 HCT 39.8 % (Abnormal) Range: 40-54 HGB 13.2 g/dL (Normal) Range: 13.0-16.5 RBC 4.19 {M/mm3} (Abnormal) Range: 4.6-6.2 WBC 7.6 K/mm3 (Normal) Range: 4.4-11.0 13-Oks-544588:01 Comprehensive Metabolic Profil Comments: [facility] [address] [place], [place], [id number] ; has apt today GAP 7 (Normal) Range: 5-15 CO2 26.0 mmol/L (Normal) Range: 21.0-32.0 CL 102 mmol/L (Normal) Range: 98-107 K 4.0 mmol/L (Normal) Range: 3.5-5.1 NA 135 mmol/L (Abnormal) Range: 136-145 T BILI 0.50 mg/dL (Normal) Range: 0.20-1.00 ALT 18 U/L (Normal) Range: 12-78 ALK P 64 U/L (Normal) Range: 45-117 AST 11 U/L (Abnormal) Range: 15-37 CA 8.3 mg/dL (Abnormal) Range: 8.5-10.1 A/G 0.8 {RATIO} (Abnormal) Range: 0.9-2.4 GLOB 3.9 g/dL (Abnormal) Range: 2.3-3.5 ALB 3.3 g/dL (Abnormal) Range: 3.4-5.0 T PROT 7.2 g/dL (Normal) Range: 6.4-8.2 BUN/CRE 21.6 {RATIO} (Abnormal) Range: 10-20 EST GFR - AA 128 mL/min (Normal) Comments: GFR Calc EST GFR 105 mL/min (Normal) Comments: Non- GFR Calc CREAT,SERUM 0.79 mg/dL (Normal) Range: 0.70-1.30 Comments: The validity of the calculated GFR AND GFRAA in patients over70 years has not been determined. Clinical correlation isessential. BUN 17 mg/dL (Normal) Range: 7-18 GLU 96 mg/dL (Normal) Range: 70-110 03-Gva-880563:01 Lipid Profile Comments: [facility] [address] [place], [place], [address] VLDL 11 mg/dL (Normal) Range: 5-40 LDL 107 mg/dL (Normal) Range: 0-130 HDL 63 mg/dL (Normal) Comments: The drugs N-Acetylcysteine and Metamizole may falsely deressthis assay. Reference Range HDL <40 mg/dL Low HDL Cholesterol HDL >or= 60 mg/dL High HDL Cholesterol TRIG 56 mg/dL (Normal) Comments: The drugs N-Acetylcysteine and Metamizole may falsely deressthis assay.Serum Triglycerides Reference Interval Normal <150 mg/dL Borderline high 150 - 199 mg/dL High 200 - 499 mg/dL Very High > or = 500 mg/dL CHOL 181 mg/dL (Normal) Comments: <200 mg/dL Desirable 200-240 mg/dL Borderline >240 mg/dL High Risk [id number] Lipoprotein A 369 nmol/L (Abnormal) Comments: [facility] (refer to report for specific site)refer to report for address and phone number Comments: Results confirmed ondilution.Note: Values greater than or equal to 75 nmol/L may indicate an independent risk factor for CHD, but must be evaluated with caution when applied to non-Ca ucasian populations due to the influence of genetic factors on Lp(a) across ethnicities.Performed at: [facility] [address] [id number] Director: Hugo Britt PhD, Phone: [phone] [id number] HgA1C , Office (83862) HgA1C , Office 5.6 % (Normal) Range: 4.6 - 7.1 [id number] ANCA Panel Comments: PATIENT NOT FASTINGPERFORMED BY: LabCoKevin [place] [id number] [facility] [id number] BY: [address] [id number] Atypical pANCA <1:20 {titer} Comments: The atypical pANCA pattern has been observed in a significantpercentage of patients with ulcerative colitis, primary sclerosingcholangitis and autoimmune hepatitis. (Normal) Perinuclear (P-ANCA) <1:20 {titer} Comments: The presence of positive fluorescence exhibiting P-ANCA or C-ANCApatterns alone is not specific for the diagnosis of Juli'sGranulomatosis (WG) or microscopic polyangiitis. Decisions about treatment sh (Normal) ould not be based solely on ANCA IFA results. TheInternational ANCA Group Consensus recommends follow up testing ofpositive sera with both OR-3 and MPO-ANCA enzyme immunoassays. Asmany as 5% serum samp les are positive only by EIA.Ref. AM J Clin Pathol 1999;111:507-513. Cytoplasmic (C-ANCA) <1:20 {titer} (Normal) Antiproteinase 3 (OR-3) Abs <3.5 U/mL (Normal) Range: 0.0-3.5 Antimyeloperoxidase (MPO) Abs <9.0 U/mL (Normal) Range: 0.0-9.0 :19 Antinuclear Antibodies Comments: PATIENT NOT FASTINGPERFORMED BY: [address] [id number] BY: [facility] [facility] [address] [id number] Direct JOHN Direct Negative (Normal) [id number] C-Reactive Protein, 2.1 mg/L (Normal) Comments: PATIENT NOT FASTINGPERFORMED BY: [address] [id number] BY: [place] [id number] [facility] [address] [place] [id number] Quant Range: 0.0-4.9 :19 Rheumatoid Arthritis Comments: PATIENT NOT FASTINGPERFORMED BY: [address] [id number] BY: [facility] [facility] [place] [id number] Factor RA Latex Turbid. 7.8 {IU/mL} Range: 0.0-13.9 (Normal) Sedimentation 8 mm/h (Normal) Comments: PATIENT NOT FASTINGPERFORMED BY: [address] [id number] BY: [place] [address] [facility] [place] [id number] :19 Rate-Westergren Range: 0-30 Thyroid Peroxidase (TPO) 8 {IU/mL} (Normal) Comments: PATIENT NOT FASTINGPERFORMED BY: [address] [id number] BY: [place] [address] [facility] [place] [id number] :19 Ab Range: 0-34 :19 Thyroxine (T4) Free, Comments: PATIENT NOT FASTINGPERFORMED BY: [facility] [id number] BY: [facility] [place] [id number] Direct, S T4,Free(Direct) 1.11 ng/dL Range: 0.82-1.77 (Normal) Triiodothyronine,Free,Seru 2.5 pg/mL (Normal) Comments: PATIENT NOT FASTINGPERFORMED BY: [address] [id number] BY: [facility] [place] [id number] 2:19 m Range: 2.0-4.4 TSH 3.450 {uIU/mL} Comments: PATIENT NOT FASTINGPERFORMED BY: [address] [id number] BY: [facility] [place] [id number] 2:19 (Normal) Range: 0.450-4.500 4-Lzh-499890:30 Pathology Report Comments: PERFORMED BY: [facility] Cyto Bykij78255 [facility] [id number] Information: [id number] See MATER Comments: Material submitted: .FOREHEAD SHAVE BIOPSYClinician provided ICD-10:D48.5Clinical history: .HYPERKERATOTICCUTANEOUS HORN Note (Normal) Diagnosis:SUPERFICIAL SAMPLE OF A HYPERKERATOTIC LESION; SEE COMMENT..COMMENT::CLINICAL CORRELATION AND PATIENT FOLLOWUP ARE RECOMMEND ED. THE HISTOLOGICFEATURES ARE CONSISTENT WITH CUTANEOUS HORN. THE TISSUE SUBMITTED APPEARSTO REPRESENT A SUPERFICIAL SAMPLE OF EPIDERMIS WITH HYPERKERATOSIS OFSURFACE EPITHELIUM. THE SAMPLE INCLUDES VE RY LITTLE OF THE UNDERLYINGDERMAL-EPIDERMAL JUNCTION, DERMIS, OR SUBCUTANEOUS TISSUE. THESUPERFICIALLY SAMPLED TISSUE HAS NO OVERTLY MALIGNANT FEATURES. BECAUSETHE SAMPLE IS SUPERFICIAL A NEOPLASTIC PRO CESS CANNOT BE COMPLETELY ANDCONFIDENTLY EXCLUDED. DEPENDING ON THE CLINICAL IMPRESSION, IT MIGHT BEPRUDENT TO CONSIDER THE POSSIBLE BENEFITS OF RESAMPLING THIS LESION.EVALUATION OF THE REMAINING LESION COULD LEAD TO A CHANGE IN DIAGNOSIS.CONSIDER RE-EXCISION IF THIS LESION PERSISTS, ENLARGES, OR RECURS...01/27/2016Electronica ll y signed: .Yonis Leahy MD, PathologistGross description: .1 CONTAINER, FORMALIN- FILLED, LABELED WITH PATIENT IDENTIFICA TION.FOREHEAD SHAVE BIOPSY :1 SHAVE OF SKIN MEASURING .4 X .3 X .2 CM. THE SURGICAL MARGIN ISINKED BLUE AND THE SPECIMEN IS SUBMITTED RECEIVED. THE SPECIMEN ISSUBMITTED IN CASSETTE(S) A./CORCOR/CORPa thologist provided ICD-10:D48.5, L90.9CPT .133515 :22 TESTOSTERONE FREE ([id number]) Comments: PATIENT WAS FASTINGPERFORMED BY: [facility]70 [facility] [id number] BY: Rew[employer] [id number] Free Testosterone(Direct) 2.5 pg/mL (Abnormal) Range: 6.6-18.1 22-Skk-17482:22 VITAMIN B-12 (CYANOCOBALAMIN) Comments: PATIENT WAS FASTINGPERFORMED BY: [employer]70 [facility]kliFirst[facility] [id number] BY: [employer]PO[employer] [id number] ([id number]) Vitamin B12 638 pg/mL (Normal) Range: 211-946 89-Lzd-00473:22 CBC W/AUTO DIFF WBC Comments: PATIENT WAS FASTINGPERFORMED BY: [employer] [facility]ysMon[facility]3]Vcsdof[address] [place] [id number] BY: LabNovalys[address] [id number] Inf ormation: NURSE DRAW (55030) Immature Grans (Abs) 0.0 {x10E3/uL} (Normal) Range: 0.0-0.1 Immature Granulocytes 0 % (Normal) Baso (Absolute) 0.0 {x10E3/uL} (Normal) Range: 0.0-0.2 Eos (Absolute) 0.2 {x10E3/uL} (Normal) Range: 0.0-0.4 Monocytes(Absolute) 0.5 {x10E3/uL} (Normal) Range: 0.1-0.9 Lymphs (Absolute) 1.8 {x10E3/uL} (Normal) Range: 0.7-3.1 Neutrophils (Absolute) 4.8 {x10E3/uL} (Normal) Range: 1.4-7.0 Basos 0 % (Normal) Eos 2 % (Normal) Monocytes 7 % (Normal) Lymphs 24 % (Normal) Neutrophils 67 % (Normal) Platelets 188 {x10E3/uL} (Normal) Range: 150-379 RDW 13.8 % (Normal) Range: 12.3-15.4 MCHC 34.1 g/dL (Normal) Range: 31.5-35.7 MCH 31.2 pg (Normal) Range: 26.6-33.0 MCV 92 fL (Normal) Range: 79-97 Hematocrit 40.8 % (Normal) Range: 37.5-51.0 Hemoglobin 13.9 g/dL (Normal) Range: 12.6-17.7 RBC 4.45 {x10E6/uL} (Normal) Range: 4.14-5.80 WBC 7.3 {x10E3/uL} (Normal) Range: 3.4-10.8 47-Qgj-75171:22 METABOLIC PANEL, Comments: PATIENT WAS FASTINGPERFORMED BY: LabNovalysMon[facility]3]Wkqgat[address] [facility] [address] [place] [id number] BY: LabNovalys[address] [id number] COMPREHENSIVE (20197) ALT (SGPT) 12 [iU]/L (Normal) Range: 0-44 AST (SGOT) 14 [iU]/L (Normal) Range: 0-40 Alkaline Phosphatase, S 55 [iU]/L (Normal) Range: 39-117 Bilirubin, Total 0.5 mg/dL (Normal) Range: 0.0-1.2 A/G Ratio 1.9 (Normal) Range: 1.1-2.5 Globulin, Total 2.2 g/dL (Normal) Range: 1.5-4.5 Albumin, Serum 4.2 g/dL (Normal) Range: 3.6-4.8 Protein, Total, Serum 6.4 g/dL (Normal) Range: 6.0-8.5 Calcium, Serum 8.9 mg/dL (Normal) Range: 8.6-10.2 Carbon Dioxide, Total 23 mmol/L (Normal) Range: 18-29 Chloride, Serum 98 mmol/L (Normal) Range: 97-106 Comments: Please note reference interval change Potassium, Serum 4.1 mmol/L (Normal) Range: 3.5-5.2 Comments: Please note reference interval change Sodium, Serum 139 mmol/L (Normal) Range: 136-144 Comments: Please note reference interval change BUN/Creatinine Ratio 15 (Normal) Range: 10-22 eGFR If Africn Am 107 mL/min/1.73 (Normal) eGFR If NonAfricn Am 93 mL/min/1.73 (Normal) Creatinine, Serum 0.85 mg/dL (Normal) Range: 0.76-1.27 BUN 13 mg/dL (Normal) Range: 8-27 Glucose, Serum 100 mg/dL (Abnormal) Range: 65-99 83-Xmx-44715:52 CBC W/Diff, Automated Comments: [facility] [address] [place], [place], [id number] Absolute Lymph 1.73 {X10_3/ul} (Normal) Range: 0.83-4.51 Absolute Neut 3.6 {X10_3/uL} (Normal) Range: 2.0-7.7 IM GRAN % 0.300 % (Normal) Range: 0.0-0.9 Comments: IG% - Immature Granulocytes (promyelocytes, myelocytes andmetamyelocytes) > 1% indicates that a LEFT SHIFT is Present. BASO% 0.3 % (Normal) Range: 0-1 EO% 2.2 % (Normal) Range: 0-5 MONO% 8.2 % (Normal) Range: 0-10 LY% 28.8 % (Normal) Range: 19-41 NEUT% 60.2 % (Normal) Range: 47-70 MPV 8.7 fL (Normal) Range: 6.2-12.0 PLT 220 K/mm3 (Normal) Range: 150-450 RDW SD 43.3 fL (Normal) Range: 35.1-43.9 RDW CV 13.1 % (Normal) Range: 11.6-14.6 MCHC 33.8 {g/gl} (Normal) Range: 32-36 MCH 31.2 pg (Normal) Range: 27.0-32.0 MCV 92.2 fL (Normal) Range: 80-94 HCT 40.2 % (Normal) Range: 40-54 HGB 13.6 g/dL (Normal) Range: 13.0-16.5 RBC 4.36 {M/mm3} (Abnormal) Range: 4.6-6.2 WBC 6.0 K/mm3 (Normal) Range: 4.4-11.0 40-Hsl-75301:52 Comprehensive Metabolic Profil Comments: [facility] On[address]csorce[address] [place], [address] GAP 6 (Normal) Range: 5-15 CO2 26.0 mmol/L (Normal) Range: 21.0-32.0 CL 102 mmol/L (Normal) Range: 98-107 K 4.0 mmol/L (Normal) Range: 3.5-5.1 NA 134 mmol/L (Abnormal) Range: 136-145 T BILI 0.50 mg/dL (Normal) Range: 0.20-1.00 ALT 17 U/L (Normal) Range: 12-78 ALK P 52 U/L (Normal) Range: 50-136 AST 11 U/L (Abnormal) Range: 15-37 CA 8.1 mg/dL (Abnormal) Range: 8.5-10.1 A/G 1.0 {RATIO} (Normal) Range: 0.9-2.4 GLOB 3.4 g/dL (Normal) Range: 2.3-3.5 ALB 3.4 g/dL (Normal) Range: 3.4-5.0 T PROT 6.8 g/dL (Normal) Range: 6.4-8.2 BUN/CRE 17.9 {RATIO} (Normal) Range: 10-20 EST GFR - AA 119 mL/min (Normal) Comments: GFR Calc EST GFR 98 mL/min (Normal) Comments: Non- GFR Calc CREAT,SERUM 0.84 mg/dL (Normal) Range: 0.70-1.30 Comments: The validity of the calculated GFR AND GFRAA in patients over70 years has not been determined. Clinical correlation isessential. BUN 15 mg/dL (Normal) Range: 7-18 GLU 106 mg/dL (Normal) Range: 70-110 :52 Hemoglobin A1c Comments: [facility] [address] [place], [place], [id number] HGB A1C 5.6 % (Normal) Range: 4.2-6.3 :52 Lipid Profile Comments: [facility] [address] [place], [address] VLDL 21 mg/dL (Normal) Range: 5-40 LDL 104 mg/dL (Normal) Range: 0-130 HDL 52 mg/dL (Normal) Comments: The drugs N-Acetylcysteine and Metamizole may falsely deressthis assay. Reference Range HDL <40 mg/dL Low HDL Cholesterol HDL >or= 60 mg/dL High HDL Cholesterol TRIG 105 mg/dL (Normal) Comments: The drugs N-Acetylcysteine and Metamizole may falsely deressthis assay.Serum Triglycerides Reference Interval Normal <150 mg/dL Borderline high 150 - 199 mg/dL High 200 - 499 mg/dL Very High > or = 500 mg/dL CHOL 177 mg/dL (Normal) Comments: <200 mg/dL Desirable 200-240 mg/dL Borderline >240 mg/dL High Risk :52 Microalb:Creat Ratio,Random UR Comments: [facility] [address] [place], [place], [id number] MALB:CREAT 9.1 {mg/g_CRE} (Normal) MICROALBUMIN,UR 9.0 mg/L (Normal) UR CREAT 99.50 mg/dL (Normal) :52 PSA,Total - Annual Screen Comments: [facility] [address] [place], [place], [address] PSA,TOT SCREEN 0.51 ng/mL (Normal) Range: 0.00-4.00 Comments: This test was performed using the TPSA assay method for [employer] chemistry system. Values obtained with differentassay methods cannot be used interchangably.When changing PSA assays in the course of monitoring apatient, additional sequential testing should be carriedout to confirm baseline values. COLON BIOPSY (CHOOSE See Note (Normal) Comments: [facility] [address] [place], [place], [address] :45 SITE) Comments: Patient: YUMIKO LANDRUM : 1950 (64/M) Acct Num: [id number] Phys: Hugo Bullock Unit Num: [id number] Loc: LABSPEC Specimen: [id number] Received: 09/11/151646 Spec Type: C OLON BX TISSUES TISSUES: GROSS DESCRIPTION A - Received is one container labeled with the patient name and designated polyp cecum. The specimen consists of three irregular fragment s of light jorge soft tissue that in aggregate measure 0.6 x 0.2 x 0.1 cm. The specimen is totally submitted in one cassette. B - Received is one container labeled with the patient name and designated polyp sigmoid. The specimen consists of two irregular fragments of light jorge soft tissue that in aggregate measure 0.4 x 0.2 x 0.1 cm. The specimen is totally submitted in one cassette. / Heraclio 09/11 TC:1 CPT:85675 x2 HEADER OPERATION: Colonoscopy with biopsy PRE-OP DIAGNOSIS: Screening/polyp TISSUE SUBMITTED: A - Polyp cecum, R/O adenoma, B - Polyp sigmoid, R/O adenoma MICROSCOP IC DESCRIPTION Slides are reviewed. MICROSCOPIC DIAGNOSIS A. Polyp cecum, biopsy: Fragments of tubular adenoma. B. Polyp sigmoid, biopsy: Fragments of tubular adenoma. IRON:momo 09/15/15 Signed Pamella Son 09/15/15 <signature on file> :37 CBC W/Diff, Automated Comments: [facility] [address] [place], [address] ; noon-emergent till apt Absolute Lymph 1.39 {X10_3/ul} (Normal) Range: 0.83-4.51 Absolute Neut 4.4 {X10_3/uL} (Normal) Range: 2.0-7.7 IM GRAN % 0.200 % (Normal) Range: 0.0-0.9 Comments: IG% - Immature Granulocytes (promyelocytes, myelocytes andmetamyelocytes) > 1% indicates that a LEFT SHIFT is Present. BASO% 0.3 % (Normal) Range: 0-1 EO% 3.4 % (Normal) Range: 0-5 MONO% 7.5 % (Normal) Range: 0-10 LY% 21.4 % (Normal) Range: 19-41 NEUT% 67.2 % (Normal) Range: 47-70 MPV 8.6 fL (Normal) Range: 6.2-12.0 PLT 207 K/mm3 (Normal) Range: 150-450 RDW SD 45.0 fL (Abnormal) Range: 35.1-43.9 RDW CV 13.2 % (Normal) Range: 11.6-14.6 MCHC 33.3 {g/gl} (Normal) Range: 32-36 MCH 31.2 pg (Normal) Range: 27.0-32.0 MCV 93.5 fL (Normal) Range: 80-94 HCT 40.5 % (Normal) Range: 40-54 HGB 13.5 g/dL (Normal) Range: 13.0-16.5 RBC 4.33 {M/mm3} (Abnormal) Range: 4.6-6.2 WBC 6.5 K/mm3 (Normal) Range: 4.4-11.0 34-Kis-864183:37 Comprehensive Metabolic Profil Comments: [facility] [address] [place], [place], [id number] GAP 6 (Normal) Range: 5-15 CO2 27.0 mmol/L (Normal) Range: 21.0-32.0 CL 106 mmol/L (Normal) Range: 98-107 K 4.0 mmol/L (Normal) Range: 3.5-5.1 NA 139 mmol/L (Normal) Range: 136-145 T BILI 0.50 mg/dL (Normal) Range: 0.20-1.00 ALT 20 U/L (Normal) Range: 12-78 ALK P 57 U/L (Normal) Range: 50-136 AST 13 U/L (Abnormal) Range: 15-37 CA 8.4 mg/dL (Abnormal) Range: 8.5-10.1 A/G 1.0 {RATIO} (Normal) Range: 0.9-2.4 GLOB 3.5 g/dL (Normal) Range: 2.3-3.5 ALB 3.4 g/dL (Normal) Range: 3.4-5.0 T PROT 6.9 g/dL (Normal) Range: 6.4-8.2 BUN/CRE 15.1 {RATIO} (Normal) Range: 10-20 EST GFR - AA 116 mL/min (Normal) Comments: GFR Calc EST GFR 96 mL/min (Normal) Comments: Non- GFR Calc CREAT,SERUM 0.86 mg/dL (Normal) Range: 0.70-1.30 Comments: The validity of the calculated GFR AND GFRAA in patients over70 years has not been determined. Clinical correlation isessential. BUN 13 mg/dL (Normal) Range: 7-18 GLU 112 mg/dL (Abnormal) Range: 70-110 Comments: Fasting Glucose result from 110 to <126 mg/dLsuggests IMPAIRED HOMEOSTASIS per A.D.A. criteria. 96-Dqs-804659:37 Hemoglobin A1c Comments: [facility] [address] [place], [address] HGB A1C 5.6 % (Normal) Range: 4.2-6.3 63-Rzf-231872:37 Lipid Profile Comments: [facility] [address] [place], [address] VLDL 17 mg/dL (Normal) Range: 5-40 LDL 104 mg/dL (Normal) Range: 0-130 HDL 53 mg/dL (Normal) Comments: Reference Range HDL <40 mg/dL Low HDL Cholesterol HDL >or= 60 mg/dL High HDL Cholesterol TRIG 83 mg/dL (Normal) Comments: Serum Triglycerides Reference Interval Normal <150 mg/dL Borderline high 150 - 199 mg/dL High 200 - 499 mg/dL Very High > or = 500 mg/dL CHOL 174 mg/dL (Normal) Comments: <200 mg/dL Desirable 200-240 mg/dL Borderline >240 mg/dL High Risk 6-Ezh-108136:12 Factor II, DNA Analysis Comments: [facility] (refer to report for specific site)refer to report for address and phone number COMMENT Comment (Normal) Comments: Genetic Counselors are available for health care providersto discuss results at [phone] ([phone]).Methodology:DNA analysis of the Factor II gene was performed by PCRamplification followed by restric tion analysis. Thediagnostic sensitivity is >99% for both. All the tests mustbe combined with clinical information for the most accurateinterpretation. Molecular-based testing is highly accurate,but as in any laboratory test, diagnostic errors may occur.Poort SR, et al. Blood. 1996; 88:5985-6010.Diallo EA. Circulation. 2004; 110:e15-e18.Bobby I, et al. Arterioscler Thromb Vasc Biol. 1999;19:700 -703.Lance Shea, Chente Cooper, Shakeel Delgado, Xiomara Maharaj, Matilde Benjamin, PhDPerformed at: TG - [facility] [address] [place], [place] [id number] villa: Vilma Butterfield MD, Phone: [phone] FACTOR II,DNA Comment (Normal) Comments: NEGATIVENo mutation identified.Comment:A point mutation ([id number]) in the factor II (prothrombin)gene is the second most common cause of inheritedthrombophilia. The incidence of this mutation in the [place] population is about 2% and in the AfricanAmerican population it is approximately 0.5%. This mutationis rare in the and population. Beingheterozygous for a prothrombin mut ation increases the riskfor developing venous thrombosis about 2 to 3 times abovethe general population risk. Being homozygous for theprothrombin gene mutation increases the relative risk forvenous thro mbosis further, although it is not yet known howmuch further the risk is increased. In women heterozygousfor the prothrombin gene mutation, the use of estrogencontaining oral contraceptives increases th e relative riskof venous thrombosis about 16 times and the risk ofdeveloping cerebral thrombosis is also significantlyincreased. In the prothrombin gene mutationincreases risk for venous throm bosis and may increaserisk for stillbirth, placental abruption, pre-eclampsia andfetal growth restriction. If the patient possesses two ormore congenital or acquired thrombophilic risk factors, therisk for thrombosis may rise to more than the sum of therisk ratios for the individual mutations. This assaydetects only the prothrombin G30470Y mutation and doesnot measure genetic abnormalities elsewhere i n thegenome. Other thrombotic risk factors may be pursuedthrough systematic clinical laboratory analysis. Thesefactors include the R506Q (Leiden) mutation in the Factor Vgene, plasma homocysteine levels , as well as testing fordeficiencies of antithrombin III, protein C and protein S. 26-Hda-67602:42 Miscellaneous Comments: Comments: [id number],PLASMA,BLUETest(s) Ordered: [id number],PLASMA,[facility] [address] [place], [address] Lab Procedure MISC Comments: TEST RESULT UNITS REFERENCE INTERVALAntithrombin III, Func/ImmunolAntithrombin Activity 97 % 75 - 135Antithrombin Antigen 97 % 75 - 130 LAB (Normal) TESTING PERFORMED AT [facility]. ORIGINAL REPORT ON FILE IN LAB CONTAINS ADDITIONAL TEST SITE INFORMATION. TEST 1 Throm 15.9 Comments: [facility] (refer to report for specific site)refer to report for address and phone number 9 bin {sec} Range: 0.0-20.0 - Time (Normal) Comments: Performed at: [facility] LabCo[address] [id number] Director: Joseph Velez MD, Phone: [phone] F e b - 2 0 1 6 9 : 4 2 :34 CBC W/Diff, Automated Comments: [facility] [address] [place], [place], [address] Absolute Lymph 1.34 {X10_3/ul} (Normal) Range: 0.83-4.51 Absolute Neut 3.4 {X10_3/uL} (Normal) Range: 2.0-7.7 IM GRAN % 0.200 % (Normal) Range: 0.0-0.9 Comments: IG% - Immature Granulocytes (promyelocytes, myelocytes andmetamyelocytes) > 1% indicates that a LEFT SHIFT is Present. BASO% 0.4 % (Normal) Range: 0-1 EO% 2.6 % (Normal) Range: 0-5 MONO% 8.3 % (Normal) Range: 0-10 LY% 25.3 % (Normal) Range: 19-41 NEUT% 63.2 % (Normal) Range: 47-70 MPV 8.7 fL (Normal) Range: 6.2-12.0 PLT 215 K/mm3 (Normal) Range: 150-450 RDW SD 43.7 fL (Normal) Range: 35.1-43.9 RDW CV 13.3 % (Normal) Range: 11.6-14.6 MCHC 33.1 {g/gl} (Normal) Range: 32-36 MCH 30.9 pg (Normal) Range: 27.0-32.0 MCV 93.5 fL (Normal) Range: 80-94 HCT 40.5 % (Normal) Range: 40-54 HGB 13.4 g/dL (Normal) Range: 13.0-16.5 RBC 4.33 {M/mm3} (Abnormal) Range: 4.6-6.2 WBC 5.3 K/mm3 (Normal) Range: 4.4-11.0 :34 Comprehensive Comments: Comments: [id number],NIIDERICK,[facility] [address] [place], [address] ; apt today Metabolic Profil GAP 8 (Normal) Range: 5-15 CO2 28.0 mmol/L (Normal) Range: 21.0-32.0 CL 105 mmol/L (Normal) Range: 98-107 K 3.9 mmol/L (Normal) Range: 3.5-5.1 NA 141 mmol/L (Normal) Range: 136-145 T BILI 0.60 mg/dL (Normal) Range: 0.20-1.00 ALT 15 U/L (Normal) Range: 12-78 ALK P 55 U/L (Normal) Range: 50-136 AST 11 U/L (Abnormal) Range: 15-37 CA 8.5 mg/dL (Normal) Range: 8.5-10.1 A/G 1.1 {RATIO} (Normal) Range: 0.9-2.4 GLOB 3.3 g/dL (Normal) Range: 2.3-3.5 ALB 3.5 g/dL (Normal) Range: 3.4-5.0 T PROT 6.8 g/dL (Normal) Range: 6.4-8.2 BUN/CRE 12.1 {RATIO} (Normal) Range: 10-20 EST GFR - AA 99 mL/min (Normal) Comments: GFR Calc EST GFR 81 mL/min (Normal) Comments: Non- GFR Calc CREAT,SERUM 0.99 mg/dL (Normal) Range: 0.70-1.30 Comments: The validity of the calculated GFR AND GFRAA in patients over70 years has not been determined. Clinical correlation isessential. BUN 12 mg/dL (Normal) Range: 7-18 GLU 109 mg/dL (Normal) Range: 70-110 :34 Fact V Leiden Mutation Comments: [facility] (refer to report for specific site)refer to report for address and phone number COMMENT Comment (Normal) Comments: Genetic counselors are available for health careproviders to discuss results at [phone] ([phone]).Methodology:DNA analysis of the Factor V gene was performed by allele-specific PCR. The diagno stic sensitivity and specificity is>99% for both. Molecular-based testing is highly accurate,but as in any laboratory test, diagnostic errors may occur.All test results must be combined with clinical informationfor the most accurate interpretation.References:Rodrick Disla (1995). Clin Lab Med 16:169-186.Lance Shea, PhDRuthie Cooper, PhDAnahy Delgado, PhDMadelyn Beal, PhDBette lugo, PhDKelly Benjamin, PhDPerformed at: [address] [id number] Director: Joseph Velez MD, Phone: [phone] at: [facility] GBG[address] [place], [place] [id number] Director: Vilma Butterfield MD, Phone: [phone] FACTOR V LEIDEN Comment (Normal) Comments: Result: Negative (no mutation found)Factor V Leiden is a specific mutation (R506Q) in the factorV gene that is associated with an increased risk of venousthrombosis. Factor V Leiden is more resistant t oinactivation by activated protein C. As a result, factor Vpersists in the circulation leading to a mild hyper-coagulable state. The Leiden mutation accounts for 90% -95% of APC resistance. Factor V Leiden has been reported inpatients with deep vein thrombosis, pulmonary embolus,central retinal vein occlusion, cerebral sinus thrombosisand hepatic vein thrombosis. Other risk factors to beconsidered in the workup for venous thrombosis include [id number] mutation in the factor II (prothrombin) gene,protein S and C deficiency, and antithrombin deficiencies.Anticardiolipin antibody and lupus anticoagu lant analysismay be appropriate for certain patients, as well ashomocysteine levels.Contact your local [facility] for information on how to orderadditional testing if desired. 11-Lgg-53051:34 Hemoglobin A1c Comments: [facility] [address] [place], [place], [address] HGB A1C 5.6 % (Normal) Range: 4.2-6.3 :34 Lipid Profile Comments: Comments: [id number],[facility] [address] [place], [address] VLDL 17 mg/dL (Normal) Range: 5-40 LDL 114 mg/dL (Normal) Range: 0-130 HDL 56 mg/dL (Normal) Comments: Reference Range HDL <40 mg/dL Low HDL Cholesterol HDL >or= 60 mg/dL High HDL Cholesterol TRIG 86 mg/dL (Normal) Comments: Serum Triglycerides Reference Interval Normal <150 mg/dL Borderline high 150 - 199 mg/dL High 200 - 499 mg/dL Very High > or = 500 mg/dL CHOL 187 mg/dL (Normal) Comments: <200 mg/dL Desirable 200-240 mg/dL Borderline >240 mg/dL High Risk :34 Miscellaneous Lab Comments: Comments: [id number],[facility]ITALTest(s) Ordered: [id number] Hospital [facility] [address]defcz[address] [place], [place], [id number] Procedure MISC Comments: TEST RESULT UNITS REFERENCE INTERVALAntiphospholipid SyndromeaPTT 30.3 sec 23.4 - 36.4PT 12.9 sec 11.9 - 14.1INR LAB (Normal) 1.0 0.8 - 1.2 01Reference interval is for non-anticoagulated patients.Suggested INR therapeutic range for Vitamin Kantagonist therapy:Standard Dose (moderate intensity the TEST rapeutic range): 2.0 - 3.0Higher intensity therapeutic range 2.5 - 3.5Thrombin Time 15.8 sec 0.0 - 20.0dRVVT 37.0 sec 0.0 - 55.1Hexagonal Phase Phospholipid 2.3 sec 0.0 - 8.0Anticardiolipin Ab,IgG,Qn <9 GPL U/mL 0 - 14 Negative: <15 Indeterminate: 15 - 20 Low-Med Positive: >20 - 80 High Positive: >80Anticardiolipin Ab,IgM,Qn <9 MPL U/mL 0 - 12 Negative: <13 Indeterminate: 13 - 20 Low-Med Positive: >20 - 80 High Positive: >80Beta-2 Glycoprotein I Ab, IgG <9 GPI IgG units 0 - 20Please Note:The reference interval reflects a 3SD or 99th percentileinterval, which is thought to represent a potentiallycl inically significant result in accordance with theInternational Consensus Statement on the classificationcriteria for definitive antiphospholipid syndrome(APS). JThromb Haem 2006;4:295-306.Beta-2 Glycop rotein I Ab, IgM <9 GPI IgM units 0 - 32Please Note:The reference interval reflects a 3SD or 99th percentileinterval, which is thought to represent a potentiallyclinically significant result in accordance with theInternational Consensus Statement on the classificationcriteria for definitive antiphospholipid syndrome(APS). J Thromb Haem 2006;4:295-306.APS Panel Interpretation:Please refer to the Coag Studies Interp Report.Antithrombin III, Func/ImmunolAntithrombin Activity 97 % 75 - 135Antithrombin Antige n 97 % 75 - 130Coag Studies Interp ReportInterpretation Note: COAGULATION:ANTIPHOSPHOLIPID SYNDROME ASSESSMENT ASSESSMENTA lupus anticoagulant is not de tected. aCL and G2LJ3voqsyrftzv are normal.ANTIPHOSPHOLIPID SYNDROME ASSESSMENT SUMMARY-No evidence of a lupus anticoagulant, B2GP1 or aCLantibodies. As antibody titers may fluctuate with time,repeat te sting may be indicated if antiphospholipid syndromeis suspected.ANTIPHOSPHOLIPID SYNDROME ASSESSMENT DEFINITIONS-aCL- anticardiolipin (antibodies to cardiolipin); Z4XB4-qpszhoshgq to Beta-2 Glycoprotein 1; LA- lupus anticoagulant(which is identified with the dRVVT and/or hexagonalphospholipid neutralization assays); aPL- antibodies toprotein/phospholipid complexes such as LA, aCL, and [id number]; APS- antiphospholipid syndrome; DTI-directthrombin inhibitors.-CHARTER REPRESENTATIVE:For questions regarding panel interpretation, please contactHalle Arrington M.D. ([place]) or Yogi Olvera M.D. at[facility] Co[facility] at . DISCLAIMERThese assessments and interpretations are provided as aconvenience in support of the physician-patient relationshipand are not intended to replace the physician's clinicaljudgment. They are derived from national guidelines inaddition to other evidence and expert opinion. The clinicianshould consider this information within the context ofclinical opinion and the individual patient.SEE GUIDANCE FOR ANTIPHOSPHOLIPID SYNDROME ASSESSMENT:(1) Shaniqua Mathews et al. J Thromb Haemost. 2009; 7(10):5737-7737.(2) Tyrone S et al. J Thromb H aemost. 2006;4(2):295-306.(3) Keith DA et al. Blood. 2007;110(9): 2762-8875. [facility] AT [facility]. ORIGINAL REPORT ON FILE IN LAB CONTA INS ADDITIONAL TEST SITE INFORMATION. :34 Protein C Defic. Profile Comments: [facility] (refer to report for specific site)refer to report for address and phone number PROT C,FUNC 193 % (Abnormal) Range: 74-151 PROTEIN C 114 % (Normal) Range: 70-140 :34 Protein S Defic. Profile Comments: [facility] (refer to report for specific site)refer to report for address and phone number PROTEIN S, FUNC 90 % (Normal) Range: 60-145 PROTEIN S, FREE 99 % (Normal) Range: 56-124 PROTEIN S,TOTAL 136 % (Normal) Range: 58-150 :54 CBC W/Diff, Automated Comments: [facility] [address] [place], [address] Absolute Lymph 1.61 {X10_3/ul} (Normal) Range: 0.83-4.51 Absolute Neut 4.6 {X10_3/uL} (Normal) Range: 2.0-7.7 IM GRAN % 0.300 % (Normal) Range: 0.0-0.9 Comments: IG% - Immature Granulocytes (promyelocytes, myelocytes andmetamyelocytes) > 1% indicates that a LEFT SHIFT is Present. BASO% 0.4 % (Normal) Range: 0-1 EO% 3.8 % (Normal) Range: 0-5 MONO% 7.9 % (Normal) Range: 0-10 LY% 22.6 % (Normal) Range: 19-41 NEUT% 65.0 % (Normal) Range: 47-70 MPV 8.8 fL (Normal) Range: 6.2-12.0 PLT 215 K/mm3 (Normal) Range: 150-450 RDW SD 43.9 fL (Normal) Range: 35.1-43.9 RDW CV 13.2 % (Normal) Range: 11.6-14.6 MCHC 33.6 {g/gl} (Normal) Range: 32-36 MCH 30.9 pg (Normal) Range: 27.0-32.0 MCV 91.8 fL (Normal) Range: 80-94 HCT 42.5 % (Normal) Range: 40-54 HGB 14.3 g/dL (Normal) Range: 13.0-16.5 RBC 4.63 {M/mm3} (Normal) Range: 4.6-6.2 WBC 7.1 K/mm3 (Normal) Range: 4.4-11.0 89-Igc-264762:54 Comprehensive Metabolic Profil Comments: [facility] [address] [place], [address] GAP 7 (Normal) Range: 5-15 CO2 26.0 mmol/L (Normal) Range: 21.0-32.0 CL 107 mmol/L (Normal) Range: 98-107 K 3.9 mmol/L (Normal) Range: 3.5-5.1 NA 140 mmol/L (Normal) Range: 136-145 T BILI 0.60 mg/dL (Normal) Range: 0.20-1.00 ALT 23 U/L (Normal) Range: 12-78 ALK P 67 U/L (Normal) Range: 50-136 AST 14 U/L (Abnormal) Range: 15-37 CA 8.7 mg/dL (Normal) Range: 8.5-10.1 A/G 1.0 {RATIO} (Normal) Range: 0.9-2.4 GLOB 3.7 g/dL (Abnormal) Range: 2.3-3.5 ALB 3.7 g/dL (Normal) Range: 3.4-5.0 T PROT 7.4 g/dL (Normal) Range: 6.4-8.2 BUN/CRE 12.7 {RATIO} (Normal) Range: 10-20 EST GFR - AA 95 mL/min (Normal) Comments: GFR Calc EST GFR 79 mL/min (Normal) Comments: Non- GFR Calc CREAT,SERUM 1.02 mg/dL (Normal) Range: 0.70-1.30 Comments: The validity of the calculated GFR AND GFRAA in patients over70 years has not been determined. Clinical correlation isessential. BUN 13 mg/dL (Normal) Range: 7-18 GLU 98 mg/dL (Normal) Range: 70-110 :54 Lipid Profile Comments: [facility] [address] [facility] [place], [address] ; apt today VLDL 19 mg/dL (Normal) Range: 5-40 LDL 134 mg/dL (Abnormal) Range: 0-130 HDL 51 mg/dL (Normal) Comments: Reference Range HDL <40 mg/dL Low HDL Cholesterol HDL >or= 60 mg/dL High HDL Cholesterol TRIG 95 mg/dL (Normal) Comments: Serum Triglycerides Reference Interval Normal <150 mg/dL Borderline high 150 - 199 mg/dL High 200 - 499 mg/dL Very High > or = 500 mg/dL CHOL 204 mg/dL (Abnormal) Comments: <200 mg/dL Desirable 200-240 mg/dL Borderline >240 mg/dL High Risk :55 Comprehensive Metabolic Profil Comments: Test performed at:[facility] [address] [place] [address] GAP 7 (Normal) Range: 5-15 CO2 24.0 mmol/L (Normal) Range: 21.0-32.0 CL 106 mmol/L (Normal) Range: 98-107 K 3.6 mmol/L (Normal) Range: 3.5-5.1 NA 137 mmol/L (Normal) Range: 136-145 T BILI 0.50 mg/dL (Normal) Range: 0.20-1.00 ALT 16 U/L (Normal) Range: 12-78 ALK P 49 U/L (Abnormal) Range: 50-136 AST 17 U/L (Normal) Range: 15-37 CA 8.6 mg/dL (Normal) Range: 8.5-10.1 A/G 0.9 {RATIO} (Normal) Range: 0.9-2.4 GLOB 3.5 g/dL (Normal) Range: 2.3-3.5 ALB 3.1 g/dL (Abnormal) Range: 3.4-5.0 T PROT 6.6 g/dL (Normal) Range: 6.4-8.2 BUN/CRE 16.9 {RATIO} (Normal) Range: 10-20 EST GFR - AA 112 mL/min (Normal) EST GFR 92 mL/min (Normal) CREAT,SERUM 0.89 mg/dL (Normal) Range: 0.70-1.30 Comments: Please note revised CREATININE reference range eddbahgpn75/22/2015. BUN 15 mg/dL (Normal) Range: 7-18 GLU 103 mg/dL (Normal) Range: 70-110 21-Sep-20148:55 Hemoglobin A1c Comments: Test performed at:[facility] [address] [place], [place] [address] HGB A1C 6.0 % (Normal) Range: 4.2-6.3 21-Sep-20148:55 Lipid Profile Comments: Test performed at:[facility] [address] [place] [address] VLDL 17 mg/dL (Normal) Range: 5-40 LDL 198 mg/dL (Abnormal) Range: 0-130 HDL 51 mg/dL (Normal) Comments: Reference Range HDL <40 mg/dL Low HDL Cholesterol HDL >or= 60 mg/dL High HDL Cholesterol TRIG 87 mg/dL (Normal) Comments: Serum Triglycerides Reference Interval Normal <150 mg/dL Borderline high 150 - 199 mg/dL High 200 - 499 mg/dL Very High > or = 500 mg/dL CHOL 266 mg/dL (Abnormal) Comments: <200 mg/dL Desirable 200-240 mg/dL Borderline >240 mg/dL High Risk [id number]-Voi-[id number]:49 Anti-dsDNA Ab Comments: ADDED PER VERBAL ORDER - FAXED ORDER TO FOLLOWSpecimen Comment: A duplicate report has been generated due to demographicSpecimen Comment: updates.Test performed at:[facility] [place] [address] dsDNA AB 12 {IU/mL} (Abnormal) Range: 0-9 Comments: Negative <5 Equivocal 5 - 9 Positive >9; ADDENDA: non-emergent because has apt today to discuss. [id number]-Hzl-[id number]:49 ANTINUCLEAR ANTIBODIES DIRECT Comments: Test performed at:[facility] [address] [place] [address] JOHN-DIRECT Positive (Abnormal) Comments: Performed at: [facility] Lab[address] [id number] Director: Reno Yanes PhD, Phone: [phone] 29-Fuq-434575:49 CBC W/Diff, Automated Comments: Test performed at:[facility] [address] [place] [address] Absolute Lymph 1.22 {X10_3/ul} (Normal) Range: 0.83-4.51 Absolute Neut 3.2 {X10_3/uL} (Normal) Range: 2.0-7.7 IM GRAN % 0.200 % (Normal) Range: 0.0-0.9 Comments: IG% - Immature Granulocytes (promyelocytes, myelocytes andmetamyelocytes) > 1% indicates that a LEFT SHIFT is Present. BASO% 0.2 % (Normal) Range: 0-1 EO% 2.6 % (Normal) Range: 0-5 MONO% 7.5 % (Normal) Range: 0-10 LY% 24.7 % (Normal) Range: 19-41 NEUT% 64.8 % (Normal) Range: 47-70 MPV 8.9 fL (Normal) Range: 6.2-12.0 PLT 184 K/mm3 (Normal) Range: 150-450 RDW SD 46.1 fL (Abnormal) Range: 35.1-43.9 RDW CV 13.6 % (Normal) Range: 11.6-14.6 MCHC 33.0 {g/gl} (Normal) Range: 32-36 MCH 30.8 pg (Normal) Range: 27.0-32.0 MCV 93.2 fL (Normal) Range: 80-94 HCT 39.7 % (Abnormal) Range: 40-54 HGB 13.1 g/dL (Normal) Range: 13.0-16.5 RBC 4.26 {M/mm3} (Abnormal) Range: 4.6-6.2 WBC 4.9 K/mm3 (Normal) Range: 4.4-11.0 87-Ghz-601039:[id number] Comprehensive Metabolic Profil Comments: Test performed at:[facility] [address] [place] [address] GAP 6 (Normal) Range: 5-15 CO2 27.0 mmol/L (Normal) Range: 21.0-32.0 CL 106 mmol/L (Normal) Range: 98-107 K 3.7 mmol/L (Normal) Range: 3.5-5.1 NA 139 mmol/L (Normal) Range: 136-145 T BILI 0.50 mg/dL (Normal) Range: 0.00-4.00 ALT 19 U/L (Normal) Range: 12-78 ALK P 50 U/L (Normal) Range: 50-136 AST 11 U/L (Abnormal) Range: 15-37 CA 8.3 mg/dL (Abnormal) Range: 8.5-10.1 A/G 1.1 {RATIO} (Normal) Range: 0.9-2.4 GLOB 3.1 g/dL (Normal) Range: 2.7-4.2 ALB 3.5 g/dL (Normal) Range: 3.4-5.0 T PROT 6.6 g/dL (Normal) Range: 6.4-8.2 BUN/CRE 11.3 {RATIO} (Normal) Range: 10-20 EST GFR - AA 126 mL/min (Normal) EST GFR 104 mL/min (Normal) CREAT,SERUM 0.8 mg/dL (Normal) Range: 0.8-1.3 BUN 9 mg/dL (Normal) Range: 7-18 GLU 104 mg/dL (Normal) Range: 70-110 06-Kpe-[id number]:49 CRP Comments: Test performed at:[place] [address] C-REACTIVE PROT < 2.90 mg/L (Normal) Range: 0.0-3.0 Comments: C-Reactive Protein (CRP) provides useful information for thediagnosis, therapy and monitoring of inflammatory processesand associated diseases. For the evaluation of Relative Riskfor Cardiovascular Dise ase, a High Sensitivity CRP (HSCRP)should be ordered. :49 Culture, Urine Comments: Test performed at:[place] [address] CUUR See Note (Normal) Comments: Urine CultureCulture exhibits no growth.; ADDENDA: Pt has apt today, will discuss then :49 Erythrocyte Sed Rate Comments: Test performed at:[facility] [address] [place] [address] SED RATE 21 mm/h (Abnormal) Range: 0-20 :49 Hemoglobin A1c Comments: Test performed at:[address] [address] HGB A1C 5.8 % (Normal) Range: 4.2-6.3 :49 Lipid Profile Comments: Test performed at:[address] [address] VLDL 8 mg/dL (Normal) Range: 5-40 LDL 92 mg/dL (Normal) Range: 0-130 HDL 62 mg/dL (Normal) Comments: Reference Range HDL <40 mg/dL Low HDL Cholesterol HDL >or= 60 mg/dL High HDL Cholesterol TRIG 42 mg/dL (Normal) Range: 0-199 Comments: Serum Triglycerides Reference Interval Normal <150 mg/dL Borderline high 150 - 199 mg/dL High 200 - 499 mg/dL Very High > or = 500 mg/dL CHOL 162 mg/dL (Normal) Comments: <200 mg/dL Desirable 200-240 mg/dL Borderline >240 mg/dL High Risk :49 Microalb:Creat Ratio,Random UR Comments: Test performed at:[facility] [address] [facility] [place] [address] MALB:CREAT 12.2 {mg/g_CRE} (Normal) MICROALBUMIN,UR 17.2 mg/L (Normal) UR CREAT 140.0 mg/dL (Normal) :49 PSA,Total - Annual Screen Comments: Test performed at:[facility] [address] [place] [address] PSA,TOT SCREEN 0.47 ng/mL (Normal) Range: 0.00-4.00 Comments: This test was performed using the TPSA assay method for [employer] chemistry system. Values obtained with differentassay methods cannot be used interchangably.When changing PSA assays in the course of monitoring apatient, additional sequential testing should be carriedout to confirm baseline values. :49 Thyroid Stim Hormone (TSH) Comments: Test performed at:[facility] [address] [place] [address] TSH 1.60 {uIU/mL} (Normal) Range: 0.358-3.74 :49 Urinalysis, Complete Comments: How was Urine Obtained? Urine, RandomTest performed at:[facility] [address] [place] [address] MUCUS, URINE 0 SEEN {/hpf} (Normal) BACTERIA 0 SEEN {/hpf} (Normal) SQUAM EPI 0 SEEN {/hpf} (Normal) Range: 0-5 RBC-UA 0 SEEN {/hpf} (Normal) Range: 0-5 WBC 0 SEEN {/hpf} (Normal) Range: 0-5 LEUK ESTERASE 25 /ul (Abnormal) OCCULT BLOOD-UR Negative /ul (Normal) NITRITE UR Negative (Normal) UROBILI Normal mg/dL (Normal) PROT DIPSTX 15 mg/dL (Abnormal) pH UR 5.0 (Normal) Range: 5.0 - 8.0 SP.GR. DIPSTX 1.025 (Normal) Range: 1.002-1.030 KETONE UR Negative mg/dL (Normal) BILIRUBIN URINE Negative mg/dL (Normal) GLUCOSE, UR Normal mg/dL (Normal) CLARITY Clear (Normal) COLOR Yellow (Normal) [id number]-Ysu-[id number] Urinalysis, Complete Comments: How was Urine Obtained? Urine, RandomTest performed at:[facility] [address] [facility] [place] [address] MUCUS, URINE 2+ {/hpf} (Normal) BACTERIA 1+ {/hpf} (Normal) SQUAM EPI 0 SEEN {/hpf} (Normal) Range: 0-5 RBC-UA 0 SEEN {/hpf} (Normal) Range: 0-5 WBC 0-5 SEEN {/hpf} (Normal) Range: 0-5 LEUK ESTERASE 25 /ul (Abnormal) OCCULT BLOOD-UR Negative /ul (Normal) NITRITE UR Negative (Normal) UROBILI Normal mg/dL (Normal) PROT DIPSTX 15 mg/dL (Abnormal) pH UR 5.0 (Normal) Range: 5.0 - 8.0 SP.GR. DIPSTX 1.025 (Normal) Range: 1.002-1.030 KETONE UR Negative mg/dL (Normal) BILIRUBIN URINE Negative mg/dL (Normal) GLUCOSE, UR Normal mg/dL (Normal) CLARITY Clear (Normal) COLOR Yellow (Normal) 12-Qvm-071440:07 Comprehensive Metabolic Profil Comments: Test performed at:[facility] [address] [place], [place] [id number] GAP 6 (Normal) Range: 5-15 CO2 28.0 mmol/L (Normal) Range: 21.0-32.0 CL 106 mmol/L (Normal) Range: 98-107 K 3.6 mmol/L (Normal) Range: 3.5-5.1 NA 140 mmol/L (Normal) Range: 136-145 T BILI 0.50 mg/dL (Normal) Range: 0.00-4.00 ALT 17 U/L (Normal) Range: 12-78 ALK P 52 U/L (Normal) Range: 50-136 AST 14 U/L (Abnormal) Range: 15-37 CA 8.6 mg/dL (Normal) Range: 8.5-10.1 A/G 1.0 {RATIO} (Normal) Range: 0.9-2.4 GLOB 3.3 g/dL (Normal) Range: 2.7-4.2 ALB 3.4 g/dL (Normal) Range: 3.4-5.0 T PROT 6.7 g/dL (Normal) Range: 6.4-8.2 BUN/CRE 12.5 {RATIO} (Normal) Range: 10-20 EST GFR - AA 126 mL/min (Normal) EST GFR 104 mL/min (Normal) CREAT,SERUM 0.8 mg/dL (Normal) Range: 0.8-1.3 BUN 10 mg/dL (Normal) Range: 7-18 GLU 108 mg/dL (Normal) Range: 70-110 04-Csv-983073:07 CPK Total, Creatine Kinase Comments: Test performed at:[facility] [address] [place] [address] CPK TOTAL 91 U/L (Normal) Range: 39-308 27-Ypa-549547:56 Rapid Flu (63100 x 2) Influenza A Ag negative (Normal) 7-Gig-791185:28 URINE WARREN CULTURE-MASSIEL COL Comments: PATIENT NOT FASTINGPERFORMED BY: [facility]][address] [facility] [id number] Information: SRC:UR [id number] COUNT ([id number]) Result 1 ECV (Abnormal) Comments: Escherichia coli, identified by an automated biochemical system.Greater than 100,000 colony forming units per mL S = Susceptible; I = Intermediate; R = Resistant P = Posi tive; N = Negative MICS are expressed in micrograms per mL Antibiotic RSLT#1 RSLT#2 RSLT#3 RSLT#4Amoxicillin/Clavulanic Acid IAmpicillin RCef azolin RCefepime ICeftriaxone RCefuroxime RCephalothin RCiprofloxacin RErtapenem SGentamicin SImipenem SLevofloxacin RNitrofurantoin SPiperacillin RTetracycline RTobramycin STrimethoprim/Sulfa R Urine Final report Culture,Comprehensi (Abnormal) ve [id number]-Jcn-[id number] Urinalysis, Office ([id number]) UA - LEUKOCYTE ESTERASE Small (Normal) UA - NITRITE Negative (Normal) URINE UROBILINGN MASSIEL TIMED 2 mg/dL (Normal) UA - PROTEIN 30 mg/dL (Normal) UA - PH 6.0 (Normal) Comments: 5.5 UA - BLOOD Hemolyzed Small (Normal) UA - SPECIFIC GRAVITY 1.030 (Abnormal) UA - KETONES Negative mg/dL (Normal) UA - BILIRUBIN Small (Normal) UA - GLUCOSE Negative (Normal) 9-Jmu-[id number]:41 URINE WARREN CULTURE-MASSIEL COL Comments: PATIENT NOT FASTINGPERFORMED BY: [facility] [id number] Information: SRC: URINE COUNT ([id number]) Result 1 ECV (Abnormal) Comments: Escherichia coli, identified by an automated biochemical system.Greater than 100,000 colony forming units per mL S = Susceptible; I = Intermediate; R = Resistant P = Posi tive; N = Negative MICS are expressed in micrograms per mL Antibiotic RSLT#1 RSLT#2 RSLT#3 RSLT#4Amoxicillin/Clavulanic Acid IAmpicillin RCef azolin RCefepime SCeftriaxone RCefuroxime RCephalothin RCiprofloxacin RErtapenem SGentamicin SImipenem SLevofloxacin RNitrofurantoin SPiperacillin RTetracycline RTobramycin STrimethoprim/Sulfa R Urine Final report Culture,Comprehensi (Abnormal) ve [id number]-Wqx-[id number]:27 Urinalysis, Office (46091) UA - LEUKOCYTE ESTERASE Trace (Normal) UA - NITRITE Negative (Normal) URINE UROBILINGN MASSIEL TIMED 2 mg/dL (Normal) UA - PROTEIN Negative mg/dL (Normal) UA - PH 6.0 (Normal) UA - BLOOD Negative (Normal) UA - SPECIFIC GRAVITY 1.010 (Normal) UA - KETONES Negative mg/dL (Normal) UA - BILIRUBIN Negative (Normal) UA - GLUCOSE Negative (Normal) 4-Dly-[id number]:30 HgA1C , Office ([id number]) HgA1C , Office 5.7 % (Normal) Range: 4.6 - 7.1 7-Cgv-183305:10 URINE WARREN CULTURE-MASSIEL COL Comments: PATIENT NOT FASTINGPERFORMED BY: [employer] [facility] [id number] Information: SRC:UR [id number] COUNT (11260) Result 1 NG36 (Normal) Comments: No growth in 36 - 48 hours. Urine Culture,Comprehensive Final report (Normal) :58 CBCD PATHR Reviewed (Normal) RBCM NORM C+C {NORMAL} (Normal) PE ADEQUATE (Normal) EOS 1 % (Normal) Range: 0-5 LYMPH 22 % (Normal) Range: 19-41 MON 3 % (Normal) Range: 0-10 MYELO 3 (Abnormal) Range: 0-0 META 1 % (Normal) Range: 0-1 BAND 2 % (Normal) Range: 0-5 PMN 68 % (Normal) Range: 47-70 GREGORY 100 (Normal) ALC 1.18 {X10_3/ul} (Normal) Range: 0.83-4.51 ANC 3.2 {X10_3/uL} (Normal) Range: 2.0-7.7 MPV 8.3 fL (Normal) Range: 6.2-12.0 PLT 273 K/mm3 (Normal) Range: 150-450 RDWSD 41.4 fL (Normal) Range: 35.1-43.9 RDWCV 12.3 % (Normal) Range: 11.6-14.6 MCHC 33.8 {g/gl} (Normal) Range: 32-36 MCH 32.1 pg (Abnormal) Range: 27.0-32.0 MCV 94.7 fL (Abnormal) Range: 80-94 HCT 39.6 % (Abnormal) Range: 40-54 HGB 13.4 g/dL (Normal) Range: 13.0-16.5 RBC 4.18 {M/mm3} (Abnormal) Range: 4.6-6.2 WBC 5.2 K/mm3 (Normal) Range: 4.4-11.0 :58 CMP GAP 7 (Normal) Range: 5-15 CO2 27.0 mmol/L (Normal) Range: 21.0-32.0 CL 103 mmol/L (Normal) Range: 98-107 K 3.8 mmol/L (Normal) Range: 3.5-5.1 NA 137 mmol/L (Normal) Range: 136-145 ALT 52 U/L (Normal) Range: 12-78 BIT 0.40 mg/dL (Normal) Range: 0.00-1.00 ALK 45 U/L (Normal) Range: 45-117 AST 32 U/L (Normal) Range: 15-37 AG 0.8 {RATIO} (Abnormal) Range: 0.9-2.4 CA 8.7 mg/dL (Normal) Range: 8.5-10.1 GLOB 3.8 g/dL (Normal) Range: 2.7-4.2 ALB 3.1 g/dL (Abnormal) Range: 3.4-5.0 TPROT 6.9 g/dL (Normal) Range: 6.4-8.2 BC 12.5 {RATIO} (Normal) Range: 10-20 GFRAA 126 mL/min (Normal) CREAT 0.8 mg/dL (Normal) Range: 0.8-1.3 GFR 104 mL/min (Normal) BUN 10 mg/dL (Normal) Range: 7-18 GLU 103 mg/dL (Normal) Range: 70-110 :58 CUUR URC Culture exhibits no growth. (Normal) :58 LIPID HDL 40 mg/dL (Normal) Comments: Reference RangeHDL <40 mg/dL Low HDL CholesterolHDL >or= 60 mg/dL High HDL Cholesterol LDL 91 mg/dL (Normal) Range: 0-130 VLDL 24 mg/dL (Normal) Range: 5-40 CHOL 155 mg/dL (Normal) Comments: <200 mg/dL Vecrghgdq551-492 mg/dL Borderline>240 mg/dL High Risk TRIG 121 mg/dL (Normal) Range: 0-199 Comments: Serum Triglycerides Reference IntervalNormal <150 mg/dLBorderline high 150 - 199 mg/dLHigh 200 - 499 mg/ dLVery High > or = 500 mg/dL :58 MIACRE MIALB 12.5 mg/L (Normal) tMICROCREAT 11.5 {mg/g_CRE} (Normal) CREU 108.6 mg/dL (Normal) :58 UAC Comments: How was Urine Obtained? CLEAN CATCH UMUC 1+ {/hpf} (Normal) UBAC RARE {/hpf} (Normal) UEPIS 0-5 SEEN {/hpf} (Normal) Range: 0-5 URBC 0 SEEN {/hpf} (Normal) Range: 0-5 UWBC 0-5 SEEN {/hpf} (Normal) Range: 0-5 ANGE 25 /ul (Abnormal) MICA Negative (Normal) UOB Negative /ul (Normal) uPROTU Negative mg/dL (Normal) UROBU Normal mg/dL (Normal) LEESA 6.5 (Normal) Range: 5.0 - 8.0 KETU Negative mg/dL (Normal) SGU 1.010 (Normal) Range: 1.002-1.030 BILIU Negative mg/dL (Normal) GLUR Normal mg/dL (Normal) UCLAR Clear (Normal) UCOL Yellow (Normal) [id number]:20 CUUR URC See Note (Normal) Comments: ESBL+ ORGANISM 1: Presumptive E. coliColony Count >100,000Is Organism CRE? NO Presumptive E. coli: REACTIONAmoxacillin/Clavulanic Acid $ 16 IAmpicillin $ >=32 RAmpicillin/Sulbactam $ >=32 RCefazolin $ >=64 RCefepime $ 8 RCeftriaxone $ >=64 RCiprofloxacin $ >=4 RESBL +Ertapenim $$$ <=0.5 SGentamicin $ <=1 SImipenem *NF <=0.25 SLevofloxacin $ >=8 RNitrofuran toin $ <=16 SPiperacillin/Tazobactam $$ <=4 STobramycin $ <=1 STrimethoprim/Sulfametho $ >=320 R (NF) indicates non-formulary drug at [facility]. Approval by Infectious DiseaseSpecialist required before non-formulary drugs may beordered and/or dispensed. [id number]:20 UA Comments: How was Urine Obtained? CLEAN CATCH ANGE 500 /ul (Abnormal) MICA Negative (Normal) UOB 25 /ul (Abnormal) LEESA 6.0 (Normal) Range: 5.0 - 8.0 uPROTU 30 mg/dL (Abnormal) UROBU 1 mg/dL (Abnormal) KETU Negative mg/dL (Normal) SGU 1.015 (Normal) Range: 1.002-1.030 BILIU Negative mg/dL (Normal) GLUR Normal mg/dL (Normal) UCLAR Cloudy (Normal) UCOL Yellow (Normal) : A1C 5.6 % (Normal) Range: 4.2-6.3 : B12 574 pg/mL (Normal) Range: 211-911 :27 CBC MPV 8.8 fL (Normal) Range: 6.2-12.0 PLT 143 K/mm3 (Abnormal) Range: 150-450 RDWSD 43.0 fL (Normal) Range: 35.1-43.9 RDWCV 12.5 % (Normal) Range: 11.6-14.6 MCHC 35.1 {g/gl} (Normal) Range: 32-36 MCH 33.4 pg (Abnormal) Range: 27.0-32.0 MCV 95.2 fL (Abnormal) Range: 80-94 HCT 41.3 % (Normal) Range: 40-54 HGB 14.5 g/dL (Normal) Range: 13.0-16.5 RBC 4.34 {M/mm3} (Abnormal) Range: 4.6-6.2 WBC 6.4 K/mm3 (Normal) Range: 4.4-11.0 : CUUR URC Culture exhibits no growth. (Normal) : EBGM EBNA 81.6 U/mL (Abnormal) Range: 0.0-17.9 Comments: Negative <18.0Equivocal 18.0 - 21.9Positive >21.9 tEBINT Comment (Normal) Comments: EBV Interpretation ChartInterpretation EBV-IgM VCA-IgG EBNA-IgG EA(D)-IgGEBV Seronegative - - - -Early Phase + - - -Acute Primary + + - +or-InfectionConvalescence/Past - + + +or-InfectionReactivated +or- + + +Infection+ Antibody Present - Antibody Absen tPerformed at: [facility] [id number] Director: Melquiades Hector MD, Phone: [phone] EBEAG <9.0 U/mL (Normal) Range: 0.0-8.9 Comments: Negative < 9.0Equivocal 9.0 - 10.9Positive >10.9 EBVG 315.0 U/mL (Abnormal) Range: 0.0-17.9 Comments: Negative <18.0Equivocal 18.0 - 21.9Positive >21.9 EBVM < 36.0 U/mL (Normal) Range: 0.0-35.9 Comments: Negative <36.0Equivocal 36.0 - 43.9Positive >43.9 : FE 78 ug/dL (Normal) Range: 65-175 : IZA 41 ng/mL (Normal) Range: 26-388 : MIACRE tMICROCREAT 9.2 {mg/g_CRE} (Normal) MIALB 15.8 mg/L (Normal) CREU 170.5 mg/dL (Normal) : TIBC 373 ug/dL (Normal) Range: 250-450 : TSH 3.05 {uIU/mL} (Normal) Range: 0.358-3.74 : VITD 37.6 mg/mL (Normal) Comments: Vitamin D 25(OH) Status RangeDeficiency <20 ng/mL (50nmol/L)Insuffciency 20 - 30 ng/mL (50 - 75 nmol/L)Sufficiency 30 - 100 ng/mL (75 - 250 nmol/L)Toxicity >100 ng/mL (>250 nmol/L) [id number] BMP Comments: Serial Specimen #1, #2 or #3? 1'TROP' Serial specimen #1, #2, #3, or #4: 1 CO2 29.0 mmol/L (Normal) Range: 21.0-32.0 GAP 4 (Abnormal) Range: 5-15 CL 101 mmol/L (Normal) Range: 98-107 K 3.6 mmol/L (Normal) Range: 3.5-5.1 NA 134 mmol/L (Abnormal) Range: 136-145 BC 21.4 {RATIO} (Abnormal) Range: 10-20 CA 8.8 mg/dL (Normal) Range: 8.5-10.1 GFR 122 mL/min (Normal) GFRAA 148 mL/min (Normal) CREAT 0.7 mg/dL (Abnormal) Range: 0.8-1.3 BUN 15 mg/dL (Normal) Range: 7-18 GLU 118 mg/dL (Abnormal) Range: 70-110 Comments: Fasting Glucose result from 110 to <126 mg/dLsuggests IMPAIRED HOMEOSTASIS per A.D.A. criteria. :36 CBCD ANC 3.4 {X10_3/uL} (Normal) Range: 2.0-7.7 IG% 0.500 % (Normal) Range: 0.0-0.9 Comments: IG% - Immature Granulocytes (promyelocytes, myelocytes andmetamyelocytes) > 1% indicates that a LEFT SHIFT is Present. B% 0.2 % (Normal) Range: 0-1 E% 1.3 % (Normal) Range: 0-5 M% 8.6 % (Normal) Range: 0-10 L% 32.3 % (Normal) Range: 19-41 N% 57.1 % (Normal) Range: 47-70 MPV 8.4 fL (Normal) Range: 6.2-12.0 PLT 131 K/mm3 (Abnormal) Range: 150-450 RDWSD 42.7 fL (Normal) Range: 35.1-43.9 RDWCV 12.5 % (Normal) Range: 11.6-14.6 MCHC 35.8 {g/gl} (Normal) Range: 32-36 MCH 33.6 pg (Abnormal) Range: 27.0-32.0 MCV 93.8 fL (Normal) Range: 80-94 HCT 38.0 % (Abnormal) Range: 40-54 HGB 13.6 g/dL (Normal) Range: 13.0-16.5 RBC 4.05 {M/mm3} (Abnormal) Range: 4.6-6.2 WBC 6.0 K/mm3 (Normal) Range: 4.4-11.0 :36 CKMB Comments: Serial Specimen #1, #2 or #3? 1'TROP' Serial specimen #1, #2, #3, or #4: 1 CPKMB 1.6 ng/mL (Normal) Range: 0.0-5.0 Comments: CK-MB and RI Interpretation MB Relative IndexNon-AMI <or= 5 NAIndeterminate > 5 <or= 4AMI > 5 > 4 CPK 167 U/L (Normal) Range: 39-308 :36 TROP < 0.02 ng/mL (Normal) Comments: Serial Specimen #1, #2 or #3? 1'TROP' Serial specimen #1, #2, #3, or #4: 1 Comments: TROPONIN-I EXPECTED VALUES <0.05 NEGATIVE0.06 - 0.59 AT RISK OF NE> OR = 0.60 SUGGEST NE :47 HgA1C , Office (39538) HgA1C , Office 6.3 % (Normal) Range: 4.6 - 7.1 :13 CBCD ANC 4.0 {X10_3/uL} (Normal) Range: 2.0-7.7 IG% 0.500 % (Normal) Range: 0.0-0.9 Comments: IG% - Immature Granulocytes (promyelocytes, myelocytes andmetamyelocytes) > 1% indicates that a LEFT SHIFT is Present. B% 0.2 % (Normal) Range: 0-1 E% 0.5 % (Normal) Range: 0-5 M% 7.9 % (Normal) Range: 0-10 L% 21.5 % (Normal) Range: 19-41 N% 69.4 % (Normal) Range: 47-70 MPV 8.8 fL (Normal) Range: 6.2-12.0 PLT 160 K/mm3 (Normal) Range: 150-450 RDWSD 45.8 fL (Abnormal) Range: 35.1-43.9 RDWCV 13.2 % (Normal) Range: 11.6-14.6 MCHC 34.5 {g/gl} (Normal) Range: 32-36 MCH 32.8 pg (Abnormal) Range: 27.0-32.0 MCV 95.2 fL (Abnormal) Range: 80-94 HCT 38.0 % (Abnormal) Range: 40-54 HGB 13.1 g/dL (Normal) Range: 13.0-16.5 RBC 3.99 {M/mm3} (Abnormal) Range: 4.6-6.2 WBC 5.7 K/mm3 (Normal) Range: 4.4-11.0 :13 CMP GAP 3 (Abnormal) Range: 5-15 CO2 31.0 mmol/L (Normal) Range: 21.0-32.0 CL 103 mmol/L (Normal) Range: 98-107 K 4.2 mmol/L (Normal) Range: 3.5-5.1 NA 137 mmol/L (Normal) Range: 136-145 BIT 0.40 mg/dL (Normal) Range: 0.00-1.00 ALT 20 U/L (Normal) Range: 12-78 ALK 48 U/L (Abnormal) Range: 50-136 AST 12 U/L (Abnormal) Range: 15-37 CA 8.6 mg/dL (Normal) Range: 8.5-10.1 AG 1.1 {RATIO} (Normal) Range: 0.9-2.4 GLOB 3.1 g/dL (Normal) Range: 2.7-4.2 ALB 3.3 g/dL (Abnormal) Range: 3.4-5.0 TPROT 6.4 g/dL (Normal) Range: 6.4-8.2 BC 13.3 {RATIO} (Normal) Range: 10-20 GFRAA 110 mL/min (Normal) GFR 91 mL/min (Normal) CREAT 0.9 mg/dL (Normal) Range: 0.8-1.3 BUN 12 mg/dL (Normal) Range: 7-18 GLU 114 mg/dL (Abnormal) Range: 70-110 Comments: Fasting Glucose result from 110 to <126 mg/dLsuggests IMPAIRED HOMEOSTASIS per A.D.A. criteria. :13 FE 70 ug/dL (Normal) Range: 65-175 :13 IZA 24 ng/mL (Abnormal) Range: 26-388 :13 LIPID VLDL 8 mg/dL (Normal) Range: 5-40 LDL 72 mg/dL (Normal) Range: 0-130 HDL 67 mg/dL (Normal) Comments: Reference RangeHDL <40 mg/dL Low HDL CholesterolHDL >or= 60 mg/dL High HDL Cholesterol TRIG 41 mg/dL (Normal) Range: 0-199 Comments: Serum Triglycerides Reference IntervalNormal <150 mg/dLBorderline high 150 - 199 mg/dLHigh 200 - 499 mg/ dLVery High > or = 500 mg/dL CHOL 147 mg/dL (Normal) Comments: <200 mg/dL Exfbpliit843-305 mg/dL Borderline>240 mg/dL High Risk 4-Dch-149064:55 Rapid Flu (92388 x 2) Comments: neg Influenza A Ag negative (Normal) 9-Inr-162923:02 FECAL OCCULT- Tubes sent home (03213) FECAL OCCULT HGB ASSAY, QUAL, 1-3 negative (Normal) [facility] :39 B12 510 pg/mL (Normal) Range: 211-911 :39 CBCD ANC 4.5 {X10_3/uL} (Normal) Range: 2.0-7.7 B% 0.2 % (Normal) Range: 0-1 IG% 0.300 % (Normal) Range: 0.0-0.9 Comments: IG% - Immature Granulocytes (promyelocytes, myelocytes andmetamyelocytes) > 1% indicates that a LEFT SHIFT is Present. E% 1.5 % (Normal) Range: 0-5 M% 7.4 % (Normal) Range: 0-10 L% 22.2 % (Normal) Range: 19-41 N% 68.4 % (Normal) Range: 47-70 MPV 8.7 fL (Normal) Range: 6.2-12.0 PLT 186 K/mm3 (Normal) Range: 150-450 RDWSD 45.0 fL (Abnormal) Range: 35.1-43.9 RDWCV 13.1 % (Normal) Range: 11.6-14.6 MCHC 33.4 {g/gl} (Normal) Range: 32-36 MCH 32.0 pg (Normal) Range: 27.0-32.0 MCV 95.7 fL (Abnormal) Range: 80-94 HCT 40.4 % (Normal) Range: 40-54 HGB 13.5 g/dL (Normal) Range: 13.0-16.5 RBC 4.22 {M/mm3} (Abnormal) Range: 4.6-6.2 WBC 6.6 K/mm3 (Normal) Range: 4.4-11.0 :39 CUSP RESPC See Note (Normal) Comments: Mixed normal respiratory ashkan. No Haemophilus, Streptococcus pneumoniae, beta-hemolytic Streptococcus or Staphylococcus aureus isolated. ORGANISM 1: Alpha strep not Strep pneumoAmount Growth 3+Acceptable Specimen? <25 Epithelial cells per/lpf GS See Note (Normal) Comments: Gram Stain3+ White Blood Cells2+ Gram positive cocci in chains1+ Epithelial cells1+ Gram positive rods :39 FE 56 ug/dL (Abnormal) Comments: Serial Specimen #1, #2 or #3? 1Is Patient Taking Vitamins or Folic Acid Supplements? N Range: 65-175 :39 IZA 14 ng/mL (Abnormal) Comments: Serial Specimen #1, #2 or #3? 1Is Patient Taking Vitamins or Folic Acid Supplements? N Range: 26-388 :39 FOL 17.40 ng/mL (Normal) Comments: Serial Specimen #1, #2 or #3? 1Is Patient Taking Vitamins or Folic Acid Supplements? N Range: 3.1-17.5 :39 GAME Comments: Is Patient Fasting? Y tIME 27 {IU/mL} (Normal) Range: 0-100 Comments: Performed at: [facility] Lab[address] Director: Melquiades Hector MD, Phone: [phone] IMM 55 mg/dL (Normal) Range: 40-230 DEBBY 182 mg/dL (Normal) Range: 91-414 IMG 788 mg/dL (Normal) Range: 700-1600 :39 LDH 190 U/L (Normal) Comments: Serial Specimen #1, #2 or #3? 1Is Patient Taking Vitamins or Folic Acid Supplements? N Range: 84-246 :39 PROEL Comments: Is Patient Fasting? Y [id number] Comment (Normal) Comments: Protein electrophoresis scan will follow via computer,mail, or field artillery basic delivery. tPROELAG 1.6 (Normal) Range: 0.7-2.0 tPROELIN Comment: (Normal) Comments: SPE shows decreased total protein. tPROELGL 2.1 g/dL (Normal) Range: 2.0-4.5 tPROELMS (Normal) Comments: Not Observed tPROELGA 0.6 g/dL (Normal) Range: 0.5-1.6 tPROELBE 0.8 g/dL (Normal) Range: 0.6-1.3 tPROELAL1 0.1 g/dL (Normal) Range: 0.1-0.4 tPROELAL2 0.6 g/dL (Normal) Range: 0.4-1.2 tPROELALB 3.3 g/dL (Normal) Range: 3.2-5.6 $tPROELTP 5.4 g/dL (Abnormal) Range: 6.0-8.5 :39 RETIC retIPF 0.7 % (Abnormal) Range: 1.0-7.9 Comments: Low PLT + Low IPF suggest a bone marrow production disorderLow PLT + high IPF suggests peripheral destruction(e.g.ITP, TTP, HIT, DIC, autoimmune) or bone marrow recoveryTrending of serial IPF measuremen ts is recommended whenevaluating for bone marrow responesValue above normal range indicates an increase in RBCcellular response from bone marrow. IRF 12.20 % (Normal) Range: 3.00-15.90 RETCT 1.86 % (Abnormal) Range: 0.5-1.5 tRET-HE 36.8 pg (Abnormal) Range: 30-35 :39 TIBC 394 ug/dL (Normal) Comments: Serial Specimen #1, #2 or #3? 1Is Patient Taking Vitamins or Folic Acid Supplements? N Range: 250-450 :56 CULTURE, SPUTUM (13020) Comments: PATIENT NOT FASTINGPERFORMED BY: [facility]][id number] [place] [id number] Information: SRC:[facility] [id number] Result 1 RRF (Normal) Comments: Routine respiratory ashkan Lower Respiratory Culture Final report (Normal) :32 HgA1C , Office (08559) HgA1C , Office 5.9 % (Normal) Range: 4.6 - 7.1 :32 Blood Glucose , Office (04317) Blood Glucose , Office 90 (Normal) :51 CBCMD ANC 5.3 3/uL (Normal) Range: 2.0-7.7 IG% 0.60 % (Normal) Range: 0.0-0.9 Comments: IG% - Immature Granulocytes (promyelocytes, myelocytes,metamyelocytes) >1.0% indicates that a LEFT SHIFT ispresent. B% 0.1 % (Normal) Range: 0-1 E% 2.4 % (Normal) Range: 0-5 M% 10.3 % (Abnormal) Range: 0-10 L% 13.6 % (Abnormal) Range: 19-41 N% 73.0 % (Abnormal) Range: 47-70 MPV 8.5 fL (Normal) Range: 6.2-12.0 PLT 162 K/mm3 (Normal) Range: 150-450 RDWCV 12.6 % (Normal) Range: 11.6-14.6 RDWSD 44.0 fL (Abnormal) Range: 35.1-43.9 MCHC 33.8 g/dL (Normal) Range: 32-36 MCH 32.6 pg (Abnormal) Range: 27.0-32.0 MCV 96.5 fL (Abnormal) Range: 80-94 HCT 35.8 % (Abnormal) Range: 40-54 HGB 12.1 g/dL (Abnormal) Range: 13.0-16.5 RBC 3.71 {M/mm3} (Abnormal) Range: 4.6-6.2 WBC 7.2 {k/mm3} (Normal) Range: 4.4-11.0 12-Uyl-450949:51 CMP GAP 9 (Normal) Range: 5-15 CO2 28.0 mmol/L (Normal) Range: 21.0-32.0 CL 100 mmol/L (Normal) Range: 98-107 K 4.0 mmol/L (Normal) Range: 3.5-5.1 NA 137 mmol/L (Normal) Range: 136-145 BIT 0.60 mg/dL (Normal) Range: 0.00-1.00 ALT 21 U/L (Normal) Range: 12-78 ALK 46 U/L (Abnormal) Range: 50-136 AST 16 U/L (Normal) Range: 15-37 CA 8.5 mg/dL (Normal) Range: 8.5-10.1 AG 0.7 {RATIO} (Abnormal) Range: 0.9-2.4 GLOB 4.0 g/dL (Normal) Range: 2.7-4.2 ALB 2.9 g/dL (Abnormal) Range: 3.4-5.0 TPROT 6.9 g/dL (Normal) Range: 6.4-8.2 BC 13.8 {RATIO} (Normal) Range: 10-20 GFRAA 127 mL/min (Normal) GFR 105 mL/min (Normal) CREAT 0.8 mg/dL (Normal) Range: 0.8-1.3 BUN 11 mg/dL (Normal) Range: 7-18 GLU 100 mg/dL (Normal) Range: 70-110 :51 LIPID LDL 80 mg/dL (Normal) Range: 0-130 VLDL 10 mg/dL (Normal) Range: 5-40 HDL 59 mg/dL (Normal) Comments: Reference RangeHDL <40 mg/dL Low HDL CholesterolHDL >or= 60 mg/dL High HDL Cholesterol TRIG 50 mg/dL (Normal) Comments: Serum Triglycerides Reference IntervalNormal <150 mg/dLBorderline high 150 - 199 mg/dLHigh 200 - 499 mg/ dLVery High > or = 500 mg/dL CHOL 149 mg/dL (Normal) Comments: <200 mg/dL Evxamjdna024-065 mg/dL Borderline>240 mg/dL High Risk :51 PSA 0.51 ng/mL (Normal) Range: 0.00-4.00 Comments: This test was performed using the TPSA assay method for the[employer] chemistry system. Values obtained with differentassay methods cannot be used interchangably.When changing PSA assays in the course of monitoring apatient, additional sequential testing should be carriedout to confirm baseline values. :59 MISC (Normal) Comments: TEST RESULT LIMITSAntinuclear Antibodies, IFA NegativeNegative <1:80Borderline 1:80Positive >1:80 TESTING PERFORMED AT [facility]. ORIGINAL REPORT ONFILE IN LAB CONTAINS ADDITIONAL TEST SITE INFORMATION. :00 CUSP GS See Note (Normal) Comments: GRAM STAIN2+ WHITE BLOOD CELLSRARE EPITHELIAL CELLSRARE YEAST LIKE ORGANISMS2+ GRAM POSITIVE COCCI :32 CBCMD ANC 5.2 3/uL (Normal) Range: 2.0-7.7 IG% 0.30 % (Abnormal) Range: 0.0-0.0 B% 0.4 % (Normal) Range: 0-1 E% 2.2 % (Normal) Range: 0-5 M% 8.2 % (Normal) Range: 0-10 L% 22.2 % (Normal) Range: 19-41 N% 66.7 % (Normal) Range: 47-70 MPV 8.4 fL (Normal) Range: 6.2-12.0 PLT 150 K/mm3 (Normal) Range: 150-450 RDWSD 43.2 fL (Normal) Range: 35.1-43.9 RDWCV 12.7 % (Normal) Range: 11.6-14.6 MCHC 34.5 g/dL (Normal) Range: 32-36 MCH 32.2 pg (Abnormal) Range: 27.0-32.0 MCV 93.3 fL (Normal) Range: 80-94 HCT 40.6 % (Normal) Range: 40-54 HGB 14.0 g/dL (Normal) Range: 13.0-16.5 RBC 4.35 {M/mm3} (Abnormal) Range: 4.6-6.2 WBC 7.8 {k/mm3} (Normal) Range: 4.4-11.0 :32 CMP GAP 10 (Normal) Range: 5-15 CO2 23.0 mmol/L (Normal) Range: 21.0-32.0 CL 99 mmol/L (Normal) Range: 98-107 K 3.8 mmol/L (Normal) Range: 3.5-5.1 NA 132 mmol/L (Abnormal) Range: 136-145 ALT 33 U/L (Normal) Range: 12-78 BIT 0.40 mg/dL (Normal) Range: 0.00-1.00 ALK 42 U/L (Abnormal) Range: 50-136 AST 35 U/L (Normal) Range: 15-37 CA 9.5 mg/dL (Normal) Range: 8.5-10.1 AG 1.1 {RATIO} (Normal) Range: 0.9-2.4 GLOB 3.4 g/dL (Normal) Range: 2.7-4.2 ALB 3.7 g/dL (Normal) Range: 3.4-5.0 TPROT 7.1 g/dL (Normal) Range: 6.4-8.2 BC 14.0 {RATIO} (Normal) Range: 10-20 GFRAA 98 mL/min (Normal) GFR 81 mL/min (Normal) CREAT 1.0 mg/dL (Normal) Range: 0.8-1.3 BUN 14 mg/dL (Normal) Range: 7-18 GLU 98 mg/dL (Normal) Range: 70-110 :32 LIPID LDL 79 mg/dL (Normal) Range: 0-130 VLDL 11 mg/dL (Normal) Range: 5-40 CHOL 154 mg/dL (Normal) Comments: <200 mg/dL Rfqltgqhb913-949 mg/dL Borderline>240 mg/dL High Risk HDL 64 mg/dL (Normal) Comments: Reference RangeHDL <40 mg/dL Low HDL CholesterolHDL >or= 60 mg/dL High HDL Cholesterol TRIG 57 mg/dL (Normal) Comments: Serum Triglycerides Reference IntervalNormal <150 mg/dLBorderline high 150 - 199 mg/dLHigh 200 - 499 mg/ dLVery High > or = 500 mg/dL :32 MIACRE tMICROCREAT 12.3 {mg/g_CRE} (Normal) MIALB 13.0 mg/L (Normal) CREU 105.2 mg/dL (Normal) :32 TSH 1.77 {uIU/mL} (Normal) Range: 0.358-3.74 :32 UAC UMUC 0 SEEN {/hpf} (Normal) UBAC 0 SEEN {/hpf} (Normal) UEPIS 0 SEEN {/hpf} (Normal) Range: 0-5 URBC 0-5 SEEN {/hpf} (Normal) Range: 0-5 UWBC 0-5 SEEN {/hpf} (Normal) Range: 0-5 ANGE Negative /ul (Normal) UOB Negative /ul (Normal) MICA Negative (Normal) UROBU Normal mg/dL (Normal) uPROTU 15 mg/dL (Abnormal) LEESA 5 (Normal) Range: 5.0 - 8.0 SGU 1.020 (Normal) Range: 1.002-1.030 KETU 5 mg/dL (Abnormal) BILIU Negative mg/dL (Normal) GLUR Normal mg/dL (Normal) UCLAR Clear (Normal) UCOL Yellow (Normal) :11 AFBCS tAFBC See Note Comments: TESTING PERFORMED AT [facility]. ORIGINAL REPORT ONFILE IN LAB CONTAINS ADDITIONAL TEST SITE INFORMATION. (Normal) CULTURE, ACID FAST FINAL CULTURE REPORT TO FOLLOW IN 6 WEEKS. tAFBSF See Note Comments: TESTING PERFORMED AT [facility]. ORIGINAL REPORT ONFILE IN LAB CONTAINS ADDITIONAL TEST SITE INFORMATION. (Normal) ACID FAST BACILLUS SMEARAcid Fast Smear from Concentrated Specimen :Negative :11 CUFST FUNST See Note Comments: TESTING PERFORMED AT [facility]. ORIGINAL REPORT ONFILE IN LAB CONTAINS ADDITIONAL TEST SITE INFORMATION. (Normal) FUNGUS STAIN No yeast or mold observed. CUF See Note Comments: TESTING PERFORMED AT [facility]. ORIGINAL REPORT ONFILE IN LAB CONTAINS ADDITIONAL TEST SITE INFORMATION. (Normal) CULTURE, FUNGUSNO YEAST OR MOLD ISOLATED AFTER 4 WEEKS. [id number] CUSP RESPC See Note (Normal) Comments: No Haemophilus, Streptococcus pneumoniae, beta-hemolytic Streptococcus isolated. AMOUNT GROWTH 2+ AMOUNT GROWTH 2+ AMOUNT GROWTH 3+ ORGANISM 1: PSEUDOMONA S AERUGINOSAORGANISM 2: STAPHYLOCOCCUS AUREUSORGANISM 3: ALPHA STREP NOT STREP PNEUMO PSEUDOMONAS AERUGINOSA: REACTIONCEFEPIME $$ 2 SCEFTAZI DIME (NF) $ 4 SCIPROFLOXACIN GN (IV/NF) $$ <=0.25 SGENTAMICIN GN $ 2 SLEVOFLOXACIN $ <=0.12 SPIP ERACILLIN/TAZOBACTAM $$$ 8 STOBRAMYCIN $$ <=1 S STAPHYLOCOCCUS AUREUS: REACTIONBENZYLPENICILLIN - 0.06 RCEFAZOLIN *See Comment $ S* SCIPROFLOXACIN GP (IV/NF) $$ >=8 RCLINDAMYCIN $$ <=0.25 SINDUCIBLE CC RESISTANCE (NF)$ Neg -ERYTHROMYCIN $$ <=0.25 SGENTAMICIN GP $ <=0.5 SLEVOFLOXACIN $ >=8 RLINEZOLID $$$ 2 SMOXIFLOXICIN (NF) $$ 4 IOXACILLIN $$ <=0.25 STIGECYCLINE (NF) $$$ <=0.12 SQUINUPRISTIN/DALFOPRI (NF) $$$ <=0.25 SRIFAMPIN $ <=0.5 STETRACYCLINE $ <=1 STRIMETHOPRIM/SULFAMETHOXAZ $ <=10 SVANCOMYCIN $ <=0.5 S GS See Note (Normal) Comments: GRAM STAIN2+ WHITE BLOOD CELLS1+ EPITHELIAL CELLS2+ GRAM POSITIVE COCCI IN CHAINS AND CLUSTERS1+ GRAM POSITIVE RODS :23 AFBCS tAFBC See Note Comments: TESTING PERFORMED AT [facility]. ORIGINAL REPORT ONFILE IN LAB CONTAINS ADDITIONAL TEST SITE INFORMATION. (Normal) CULTURE, ACID FAST FINAL CULTURE REPORT TO FOLLOW IN 6 WEEKS. tAFBSF See Note Comments: TESTING PERFORMED AT [facility]. ORIGINAL REPORT ONFILE IN LAB CONTAINS ADDITIONAL TEST SITE INFORMATION. (Normal) ACID FAST BACILLUS SMEARNO ACID-FAST BACILLI OBSERVED ON SMEAR. :23 CUFST FUNST See Note Comments: TESTING PERFORMED AT [facility]. ORIGINAL REPORT ONFILE IN LAB CONTAINS ADDITIONAL TEST SITE INFORMATION. (Normal) FUNGUS STAIN No yeast or mold observed. CUF See Note Comments: TESTING PERFORMED AT [facility]. ORIGINAL REPORT ONFILE IN LAB CONTAINS ADDITIONAL TEST SITE INFORMATION. (Normal) CULTURE, FUNGUSNO YEAST OR MOLD ISOLATED AFTER 4 WEEKS. [id number] AFBCS tAFBC See Note Comments: TESTING PERFORMED AT [facility]. ORIGINAL REPORT ONFILE IN LAB CONTAINS ADDITIONAL TEST SITE INFORMATION. (Normal) CULTURE, ACID FAST FINAL CULTURE REPORT TO FOLLOW IN 6 WEEKS. EverF See Note Comments: TESTING PERFORMED AT [facility]. ORIGINAL REPORT ONFILE IN LAB CONTAINS ADDITIONAL TEST SITE INFORMATION. (Normal) ACID FAST BACILLUS SMEARAcid Fast Smear from Concentrated Specimen :Negative [id number] CUFST FUNST See Note Comments: TESTING PERFORMED AT [facility]. ORIGINAL REPORT ONFILE IN LAB CONTAINS ADDITIONAL TEST SITE INFORMATION. (Normal) FUNGUS STAIN YEAST OBSERVED CUF See Note Comments: TESTING PERFORMED AT [facility]. ORIGINAL REPORT ONFILE IN LAB CONTAINS ADDITIONAL TEST SITE INFORMATION. (Normal) CULTURE, FUNGUSNO YEAST OR MOLD ISOLATED AFTER 4 WEEKS. 16 AFBSTN SEE Comments: Specimen submitted to Anatomical Pathology Department [facility]. - PATHOLOGY ay REPORT -2 (Normal) 32 2: 00 16 AFBSTN SEE Comments: PATIENT BROUGHT SPECIMEN IN ON 07/11/12. - PATHOLOGY Comments: Specimen submitted to Anatomical Pathology Department [facility]. ay REPORT -2 (Normal) 30 :0 0 12 AFBSTN SEE Comments: PATIENT BROUGHT SPECIMEN IN ON 07/11/12 - PATHOLOGY Comments: Specimen submitted to Anatomical Pathology Department [facility]. ay REPORT -2 (Normal) 39 :0 0 [id number] WARREN CULTURE-OTHER (00122) Comments: PATIENT NOT FASTINGPERFORMED BY: [facility] [id number] [place] [id number] Information: SRC: THROAT Result 1 RRF (Normal) Comments: Routine respiratory ashkan Upper Respiratory Culture Final report (Normal) [id number] Rapid Strep Test, Office (07273) Rapid Strep Test, Office Negative (Normal) 8-Ytg-154505:15 CBCMD RBCM NORM C+C {NORMAL} (Normal) PE ADEQUATE (Normal) EOS 1 % (Normal) Range: 0-5 MON 6 % (Normal) Range: 0-10 LYMPH 29 % (Normal) Range: 19-41 PMN 64 % (Normal) Range: 47-70 GREGORY 100 (Normal) ANC 5.9 3/uL (Normal) Range: 2.0-7.7 PLT 192 K/mm3 (Normal) Range: 150-450 RDW 13.6 % (Normal) Range: 11.6-14.6 MCHC 32.8 g/dL (Normal) Range: 32-36 MCH 32.2 pg (Abnormal) Range: 27.0-32.0 MCV 98.2 fL (Abnormal) Range: 80-94 HCT 41.4 % (Normal) Range: 40-54 HGB 13.6 g.dL (Normal) Range: 13.0-16.5 RBC 4.22 {M/mm3} (Abnormal) Range: 4.6-6.2 WBC 8.3 K/mm3 (Normal) Range: 4.4-11.0 7-Juw-643823:15 CMP GAP 10 (Normal) Range: 5-15 CO2 27.0 mmol/L (Normal) Range: 21.0-32.0 CL 101 mmol/L (Normal) Range: 98-107 K 3.6 mmol/L (Normal) Range: 3.5-5.1 NA 138 mmol/L (Normal) Range: 136-145 BIT 0.40 mg/dL (Normal) Range: 0.00-1.00 ALT 19 U/L (Normal) Range: 12-78 ALK 40 U/L (Abnormal) Range: 50-136 AST 15 U/L (Normal) Range: 15-37 CA 8.8 mg/dL (Normal) Range: 8.5-10.1 AG 0.9 {RATIO} (Normal) Range: 0.9-2.4 ALB 3.3 g/dL (Abnormal) Range: 3.4-5.0 GLOB 3.6 g/dL (Normal) Range: 2.7-4.2 TPROT 6.9 g/dL (Normal) Range: 6.4-8.2 BC 18.8 {RATIO} (Normal) Range: 10-20 GFRAA 127 mL/min (Normal) GFR 105 mL/min (Normal) CREAT 0.8 mg/dL (Normal) Range: 0.8-1.3 BUN 15 mg/dL (Normal) Range: 7-18 GLU 81 mg/dL (Normal) Range: 70-110 1-Dkm-061564:15 LIPID VLDL 12 mg/dL (Normal) Range: 5-40 CHOL 184 mg/dL (Normal) Comments: <200 mg/dL Desirable 200-240 mg/dL Borderline >240 mg/dL High Risk HDL 61 mg/dL (Normal) Comments: Reference Range HDL <40 mg/dL Low HDL Cholesterol HDL >or= 60 mg/dL High HDL Cholesterol LDL 111 mg/dL (Normal) Range: 0-130 TRIG 59 mg/dL (Normal) Comments: Serum Triglycerides Reference Interval Normal <150 mg/dL Borderline high 150 - 199 mg/dL High 200 - 499 mg/dL Very High > or = 500 mg/dL 26-Jan-20120:00 CHEST WITH CONTRAST Radiology Report See Note (Normal) Comments: PROCEDURE: CT CHEST WITH CONTRAST REASON FOR EXAM: Male, 61 years old. Chronic cough. RADIATION DOSAGE (If Supplied By Facility): CTDIvol = ( 11.26 ) mGy, DLP=( 504.69 ) mGycm TECHNIQUE: High res olution transaxial imaging was performed followingintravenous administration of 100mL ml of Isovue 300 contrast material.Multiplanar coronal and sagittal images were reformatted. COMPARISON: Compariso n is made with prior study dated October 10, 2010. FINDINGS: The lungs are normal. There is no demonstrated pleural abnormality. There is mild cardiac enlargement. There are calcifications of thecorona ry arteries. Normal mediastinum. Normal hilar regions. Normal enhancement of thepulmonary arteries. There is atherosclerotic calcification of the aorticarch with tortuosity and elongation of the aort ic arch and descendingthoracic aorta. There are multi-level degenerative changes of the thoracic spine. There is limited visualization of the liver, spleen, pancreas, adrenalglands, and abdominal aorta without a demonstrated abnormality. IMPRESSION:No acute abnormality is seen . Signed:Wilfredo Alvarado M.D.January 27, 2012 at 2:39:03 PM [id number] Signed GP/GP If you are the refe rring physician and would like to consult with theradiologist who provided this interpretation, please contact Itzel Linares at [phone]. If this radiologist is unavailable, youwill be dir ected to another radiologist to assist. If you are a patient with a question regarding this report, pleasecontactyour referring physician directly. Professional Interpretation Provided By: [employer], Phone , These documents contain legally protected and confidential healthinformation intended only for the use of the individual or entity namedabove. If you are not the in tended recipient, you are hereby notifiedthatany disclosure, copying, distribution, or other use of these documents isstrictly prohibited. If you have received this information in error,pleasenotify the sender immediately and arrange for the return or destructionofthese documents. Dictated on 01/26/12 1713 by Emperatriz CALVO,Ricascribed on 01/27/12 1443 by ITS IMPORTSign by Emperatriz CALVO,Ellie reno on 01/27/12 1444 Sign by: Wilfredo Alvarado MD 26-Jan-20120:00 SINUS/FACIAL BONE Radiology Report See Note (Normal) Comments: PROCEDURES: CT FACIAL BONES WITHOUT CONTRAST REASON FOR EXAM: Male, 61 years old. Chronic sinusitis RADIATION DOSAGE (If Supplied By Facility): CTDIvol = ( 38.01 ) mGy, DLP=( 653.75 ) mGycm TECHNIQ UE: The patient was scanned in a multi detector CT scanner.Transaxial imaging was performed without the administration ofintravenouscontrast material. Sagittal and coronal images were reconstructed. COMPARISON: None. FINDINGS:Normal bilateral orbital contents. Normal bilateral medial and inferiororbital joe. Normal bilateral maxillary bones. Normal bilateralmaxillary sinuses. Normal bilatera l frontozygomatic arches. Normal bilateral zygomatictemporal arches. Normal nasal bones. Normal anterior nasal spine. Normal soft tissue structures. There is no demonstrated fracture. Normal visualiz ed frontal, ethmoidal and sphenoid sinuses. IMPRESSION:Normal CT of the facial bones.No signs of sinusitis. Signed:Yogi Schwarz D.O.January 26, 2012 at 8:55:02 PM [id number] Signed BE/B E If you are the referring physician and would like to consult with theradiologist who provided this interpretation, please contact Yogi Schwarz D.O. at [phone]. If this radiologist is unavailable, yo u will bedirected to another radiologist to assist. If you are a patient with a question regarding this report, pleasecontactyour referring physician directly. Professional Interpretation Provided By: [employer], Phone , These documents contain legally protected and confidential healthinformation intended only for the use of the individual or entity namedabove. If you ar e not the intended recipient, you are hereby notifiedthatany disclosure, copying, distribution, or other use of these documents isstrictly prohibited. If you have received this information in error,plea senotify the sender immediately and arrange for the return or destructionofthese documents. Dictated on 01/26/12 1710 by Annia Schwarz MDranscribed on 01/26/122058 by ITS IMPORTSign by Yogi Schwarz MD on 01/26/12 2100 Sign by: Yogi Schwarz MD [id number] CUSP RESPC See Note (Normal) Comments: No Haemophilus, Streptococcus pneumoniae,beta- hemolytic Streptococcus or Staphylococcus aureus isolated. [place] 2+ ORGANISM 1: PSEUDOMONAS AERUGINOSA PSEUDOMONAS AERUGINOSA: REACTION CEFEPIME $$ <=1 S CEFTAZIDIME (NF) $ 4 S CIPROFLOXACIN GN (IV/NF) $$ <=0.25 S GENTAMIC IN GN $ <=1 S LEVOFLOXACIN $ 0.5 S MEROPENEM $ <=0.25 S TRIMETHOPRIM/SULFAMETHOXAZO $ 80 R GS See Note (Normal) Comments: GRAM STAIN 1+ WHITE BLOOD CELLS RARE EPITHELIAL CELLS 2+ GRAM NEGATIVE RODS 2+ GRAM POSITIVE COCCI IN [employer] AND [employer]ERS :56 HgA1C , Office (26516) HgA1C , Office 6.1 % (Normal) Range: 4.6 - 7.1 :56 Blood Glucose , Office (70751) Blood Glucose , Office 116 (Normal) : BTNP 45.4 pg/mL (Normal) : CBCMD RBCM NORM C+C {NORMAL} (Normal) PE ADEQUATE (Normal) EOS 2 % (Normal) Range: 0-5 MON 1 % (Normal) Range: 0-10 LYMPH 28 % (Normal) Range: 19-41 PMN 69 % (Normal) Range: 47-70 GREGORY 100 (Normal) ANC 3.6 3/uL (Normal) Range: 2.0-7.7 PLT 182 K/mm3 (Normal) Range: 150-450 RDW 13.2 % (Normal) Range: 11.6-14.6 MCHC 33.7 g/dL (Normal) Range: 32-36 MCH 32.3 pg (Abnormal) Range: 27.0-32.0 MCV 95.9 fL (Abnormal) Range: 80-94 HCT 37.0 % (Abnormal) Range: 40-54 HGB 12.5 g.dL (Abnormal) Range: 13.0-16.5 Comments: Please note: Revised HEMOGLOBIN REFERENCE RANGES Reference Range effective 11. RBC 3.86 {M/mm3} (Abnormal) Range: 4.6-6.2 WBC 5.5 K/mm3 (Normal) Range: 4.4-11.0 : CMP GAP 4 (Abnormal) Range: 5-15 CO2 32.0 mmol/L (Normal) Range: 21.0-32.0 CL 103 mmol/L (Normal) Range: 98-107 K 4.1 mmol/L (Normal) Range: 3.5-5.1 NA 139 mmol/L (Normal) Range: 136-145 BIT 0.40 mg/dL (Normal) Range: 0.00-1.00 ALT 21 U/L (Normal) Range: 12-78 ALK 40 U/L (Abnormal) Range: 50-136 AST 18 U/L (Normal) Range: 15-37 CA 8.6 mg/dL (Normal) Range: 8.5-10.1 AG 1.2 {RATIO} (Normal) Range: 0.9-2.4 GLOB 2.9 g/dL (Normal) Range: 2.7-4.2 ALB 3.5 g/dL (Normal) Range: 3.4-5.0 TPROT 6.4 g/dL (Normal) Range: 6.4-8.2 BC 17.1 {RATIO} (Normal) Range: 10-20 GFRAA 149 mL/min (Normal) GFR 123 mL/min (Normal) CREAT 0.7 mg/dL (Abnormal) Range: 0.8-1.3 BUN 12 mg/dL (Normal) Range: 7-18 GLU 114 mg/dL (Abnormal) Range: 70-110 Comments: Fasting Glucose result from 110 to <126 mg/dL suggests IMPAIRED HOMEOSTASIS per A.D.A. criteria. 87-Euy-[id number]:01 TSH 1.98 {uIU/mL} (Normal) Range: 0.358-3.74 63-Pkg-918299:25 CMP GAP 7 (Normal) Range: 5-15 CO2 28.0 mmol/L (Normal) Range: 21.0-32.0 CL 102 mmol/L (Normal) Range: 98-107 K 3.8 mmol/L (Normal) Range: 3.5-5.1 NA 137 mmol/L (Normal) Range: 136-145 BIT 0.40 mg/dL (Normal) Range: 0.00-1.00 ALT 24 U/L (Normal) Range: 12-78 ALK 38 U/L (Abnormal) Range: 50-136 AST 18 U/L (Normal) Range: 15-37 CA 8.1 mg/dL (Abnormal) Range: 8.5-10.1 AG 1.0 {RATIO} (Normal) Range: 0.9-2.4 GLOB 3.3 g/dL (Normal) Range: 2.7-4.2 ALB 3.3 g/dL (Abnormal) Range: 3.4-5.0 TPROT 6.6 g/dL (Normal) Range: 6.4-8.2 BC 17.1 {RATIO} (Normal) Range: 10-20 GFRAA 149 mL/min (Normal) GFR 123 mL/min (Normal) CREAT 0.7 mg/dL (Abnormal) Range: 0.8-1.3 BUN 12 mg/dL (Normal) Range: 7-18 GLU 107 mg/dL (Normal) Range: 70-110 32-Iqb-106995:25 LIPID VLDL 12 mg/dL (Normal) Range: 5-40 LDL 78 mg/dL (Normal) Range: 0-130 HDL 58 mg/dL (Normal) Comments: Reference Range HDL <40 mg/dL Low HDL Cholesterol HDL >or= 60 mg/dL High HDL Cholesterol TRIG 58 mg/dL (Normal) Comments: Serum Triglycerides Reference Interval Normal <150 mg/dL Borderline high 150 - 199 mg/dL High 200 - 499 mg/dL Very High > or = 500 mg/dL CHOL 148 mg/dL (Normal) Comments: <200 mg/dL Desirable 200-240 mg/dL Borderline >240 mg/dL High Risk [id number]-Mye-[id number]:25 MIACRE tMICROCREAT 6.7 {mg/g_CRE} (Normal) MIALB 5.5 mg/L (Normal) CREU 81.1 mg/dL (Normal) 09-Wen-854957:25 PSA 0.50 ng/mL (Normal) Range: 0.00-4.00 Comments: NEW TEST ASSAY METHOD JULY 12, 2011This test was performed using the TPSA assay method for the[employer] chemistry system. Values obtained with differentassay methods cannot be used interchangably.When ch anging PSA assays in the course of monitoring apatient, additional sequential testing should be carriedout to confirm baseline values. :25 UAC UMUC 0 SEEN {/hpf} (Normal) UBAC 0 SEEN {/hpf} (Normal) UEPIS 0 SEEN {/hpf} (Normal) Range: 0-5 URBC 0 SEEN {/hpf} (Normal) Range: 0-5 UWBC 0-5 SEEN {/hpf} (Normal) Range: 0-5 ANGE NEGATIVE (Normal) UOB NEGATIVE (Normal) MICA NEGATIVE (Normal) UROBU 0.2 EU/dl (Normal) Range: 0.2 - 1.0 uPROTU NEGATIVE (Normal) LEESA 7.0 (Normal) Range: 5.0-8.0 SGU 1.015 (Normal) Range: 1.002-1.030 KETU NEGATIVE mg/dL (Normal) BILIU NEGATIVE (Normal) GLUR NEGATIVE (Normal) UCLAR CLEAR (Normal) UCOL YELLOW (Normal) :44 HgA1C , Office (25911) HgA1C , Office 6.3 % (Normal) Range: 4.6 - 7.1 :44 Blood Glucose , Office (89986) Blood Glucose , Office 114 (Normal) :13 HgA1C , Office (60194) HgA1C , Office 6.2 % (Normal) Range: 4.6 - 7.1 :13 Blood Glucose , Office (26679) Blood Glucose , Office 100 (Normal) :55 HgA1C , Office (70424) HgA1C , Office 5.8 % (Normal) Range: 4.6 - 7.1 :55 Blood Glucose , Office (19121) Blood Glucose , Office 85 (Normal) :51 WARREN CULTURE-OTHER (03773) Comments: PATIENT NOT FASTINGPERFORMED BY: [facility] [id number] [facility] [address] [id number] Information: SRC:THRT [id number] Result 1 Yeast isolated. (Normal) Comments: Heavy growthRequest for further identification must be madewithin 1 week. Upper Respiratory Culture Final report (Normal) :14 Rapid Strep Test, Office (85230) Rapid Strep Test, Office Negative (Normal) :24 CULTURE, SPUTUM RESP CULTURE See Note (Normal) Comments: No Streptococcus pneumoniae, beta- hemolytic Streptococcus or Staphylococcus aureus isolated. AMOUNT GROWTH 3+ AMOUNT GROWTH 1+ ORGANISM 1: ALPHA STREP NOT STREP PNEUMOORGANISM 2: BARRON ALBICANS GRAM STAIN See Note (Normal) Comments: GRAM STAIN 1+ WHITE BLOOD CELLS 2+ EPITHELIAL CELLS 3+ GRAM POSITIVE COCCI RARE GRAM POSITIVE RODS :00 C-REACTIVE PROT 3.06 mg/L (Abnormal) Range: 0.0-3.0 Comments: C-Reactive Protein (CRP) provides useful information for thediagnosis, therapy and monitoring of inflammatory processesand associated diseases. For the evaluation of Relative Riskfor Cardiovascular Dise ase, a High Sensitivity CRP (HSCRP)should be ordered. CBCD,SMEAR DIFF RED CELL MORPH SeeNote {NORMAL} (Normal) Comments: Result: NORM C+C PLT EST SeeNote (Normal) Comments: Result: ADEQUATE MONOCYTE 3 % (Normal) Range: 0-10 LYMPH 16 % (Abnormal) Range: 19-41 SEGS 81 % (Abnormal) Range: 47-70 CELLS COUNTED 100 (Normal) ABSOLUTE NEUT 4.8 3/uL (Normal) Range: 2.0-7.7 PLT 225 K/mm3 (Normal) Range: 150-450 RDW 12.7 % (Normal) Range: 11.6-14.6 MCHC 34.7 g/dL (Normal) Range: 32-36 MCH 33.0 pg (Abnormal) Range: 27.0-32.0 MCV 95.0 fL (Abnormal) Range: 80-94 HCT 39.7 % (Abnormal) Range: 40-54 HGB 13.8 g/dL (Abnormal) Range: 14.0-18.0 RBC 4.18 {M/mm3} (Abnormal) Range: 4.6-6.2 WBC 6.6 K/mm3 (Normal) Range: 4.4-11.0 ESR SED RATE 36 mm/h (Abnormal) Range: 0-20 MISC LAB TEST . (Normal) Comments: TEST RESULT LIMITSAspergillus galactomannan Ag Aspergillus galactomannan Ag 0.11 Index 0.00 - 0.49A Negative result does not rule out the diagnosis ofinvasive Asper gillosis. Repeat testing is recommended ifthe result is negative, but the disease is suspected. Avariety of agents (antibiotic, other genera of fungi, food)may cause a false positive reaction. It is recommended thata new aliquot of the same sample be repeated as well as anew sample be collected from the patient for follow-uptesting. If invasive Aspergillosis is suspected, serialsampling is recomme nded. TESTING PERFORMED AT [facility]. ORIGINAL REPORT ON FILE IN LAB CONTAINS ADDITIONAL TEST SITE INFORMATION. 23-Jan-20119:00 QNTIFERON TB QFT TB INTER Comment (Normal) Comments: The QuantiFERON TB Gold (in Tube) assay is intended for useas an aid in the diagnosis of TB infection. Negativeresults suggest that there is no TB infection. In patientswith high suspicion of exposure, a negative test should berepeated. A positive test indicates infection withMycobacterium tuberculosis. Among individuals withouttuberculosis infection, a positive test may be due toexposure to M. [place] ii, M. szulgai or M. marinum. On theInternet, go to cdc.gov/tb for further details. .The specimen received for QuantiFERON testing was incubated by the ordering institution. Specific procedures outlinedin our Directory of Services and in the package insert forthe QuantiFERON Gold (In Tube) test must be followed toenable for proper stimulation o f cells for the productionof interferon gamma.Performed at: [address] [id number] Director: Joseph Velez MD, Phone: [phone] QFT AG - NIL 0 {IU/mL} (Normal) QFT MITOGEN KRISTIN > 10.00 {IU/mL} (Normal) QFT NIL VALUE 0.03 {IU/mL} (Normal) QFT TB AB VALUE 0.03 {IU/mL} (Normal) QFT TB GOLD SeeNote (Normal) Comments: Result: Negative 23-Jan-20110:00 CHEST, PA AND LATERAL Radiology Report See Note (Normal) Comments: PROCEDURE: X-RAY CHEST REASON FOR EXAM: Male, 60 years old. Cough. History of bronchitis. TECHNIQUE: PA and lateral views of the chest. COMPARISON: September 16, 2010 FINDINGS: The lungs are expand ed. There is no demonstrated parenchymalabnormality.There is no demonstrated pleural abnormality. Normal heart and pericardium. Normal mediastinum and deborah. Normal visualized pulmonary arteries.Normal visualized aortic arch and descending thoracic aorta. Normal visualized thoracic spine. Normal visualized ribs, clavicles, andshoulders. There is no demonstrated abnormality of the visualized soft tiss uestructures of the upper abdomen. IMPRESSION:No interval change. No active or acute cardiopulmonary disease. Dictated on 01/23/11924 by Trevon Carrillo MDTranscribed on 01/24/111550 by ITS IMPORTSign by Trevon Carrillo MD on 01/24/111550 Sign by: Trevon Carrillo MD :03 CBCD,SMEAR DIFF RED CELL MORPH SeeNote {NORMAL} (Normal) Comments: Result: NORM C+C PLT EST SeeNote (Normal) Comments: Result: ADEQUATE EOS 4 % (Normal) Range: 0-5 MONOCYTE 6 % (Normal) Range: 0-10 LYMPH 32 % (Normal) Range: 19-41 BAND 2 % (Normal) Range: 0-5 SEGS 56 % (Normal) Range: 47-70 CELLS COUNTED 100 (Normal) ABSOLUTE NEUT 4.7 3/uL (Normal) Range: 2.0-7.7 PLT 205 K/mm3 (Normal) Range: 150-450 RDW 13.4 % (Normal) Range: 11.6-14.6 MCHC 34.6 g/dL (Normal) Range: 32-36 MCH 33.0 pg (Abnormal) Range: 27.0-32.0 MCV 95.3 fL (Abnormal) Range: 80-94 HCT 40.3 % (Normal) Range: 40-54 HGB 14.0 g/dL (Normal) Range: 14.0-18.0 RBC 4.23 {M/mm3} (Abnormal) Range: 4.6-6.2 WBC 7.3 K/mm3 (Normal) Range: 4.4-11.0 :03 COMP METABOLIC GAP 9 (Normal) Range: 5-15 CO2 28.0 mmol/L (Normal) Range: 21.0-32.0 CL 104 mmol/L (Normal) Range: 98-107 K 4.2 mmol/L (Normal) Range: 3.5-5.1 NA 141 mmol/L (Normal) Range: 136-145 T BILI 0.50 mg/dL (Normal) Range: 0.00-1.00 ALT 23 U/L (Normal) Range: 12-78 ALK P 48 U/L (Abnormal) Range: 50-136 AST 21 U/L (Normal) Range: 15-37 CA 8.8 mg/dL (Normal) Range: 8.5-10.1 A/G 0.9 {RATIO} (Normal) Range: 0.9-2.4 GLOB 3.7 g/dL (Normal) Range: 2.7-4.2 ALB 3.5 g/dL (Normal) Range: 3.4-5.0 T PROT 7.2 g/dL (Normal) Range: 6.4-8.2 BUN/CRE 22.9 {RATIO} (Abnormal) Range: 10-20 EST GFR - AA 149 mL/min (Normal) EST GFR 123 mL/min (Normal) CREAT,SERUM 0.7 mg/dL (Abnormal) Range: 0.8-1.3 BUN 16 mg/dL (Normal) Range: 7-18 GLU 100 mg/dL (Normal) Range: 70-110 33-Fcw-27063:03 COMPLETE UA MUCUS, URINE 2+ {/hpf} (Normal) BACTERIA RARE {/hpf} (Normal) SQUAM EPI 0 SEEN {/hpf} (Normal) Range: 0-5 RBC-UA 0 SEEN {/hpf} (Normal) Range: 0-5 WBC SeeNote {/hpf} (Normal) Range: 0-5 Comments: Result: 0-5 SEEN LEUK ESTERASE SeeNote (Normal) Comments: Result: NEGATIVE OCCULT BLOOD-UR SeeNote (Normal) Comments: Result: NEGATIVE NITRITE UR SeeNote (Normal) Comments: Result: NEGATIVE UROBILI 0.2 EU/dl (Normal) Range: 0.2 - 1.0 PROT DIPSTX SeeNote (Normal) Comments: Result: NEGATIVE pH UR 6.0 (Normal) Range: 5.0-8.0 SP.GR. DIPSTX 1.025 (Normal) Range: 1.002-1.030 KETONE UR SeeNote mg/dL (Normal) Comments: Result: NEGATIVE BILIRUBIN URINE SeeNote (Normal) Comments: Result: NEGATIVE GLUCOSE, UR SeeNote (Normal) Comments: Result: NEGATIVE CLARITY CLEAR (Normal) COLOR YELLOW (Normal) :03 HGB A1C 5.9 % (Normal) Range: 4.0-6.3 Comments: The methodology of Hgb A1C has changed to [place] significant changes in patient results are expected. The reference range remains the same. :03 LIPID VLDL 10 mg/dL (Normal) Range: 5-40 LDL 79 mg/dL (Normal) Range: 0-130 HDL 57 mg/dL (Normal) Comments: Reference Range HDL <40 mg/dL Low HDL Cholesterol HDL >or= 60 mg/dL High HDL Cholesterol TRIG 48 mg/dL (Normal) Comments: Serum Triglycerides Reference Interval Normal <150 mg/dL Borderline high 150 - 199 mg/dL High 200 - 499 mg/dL Very High > or = 500 mg/dL CHOL 146 mg/dL (Normal) Comments: <200 mg/dL Desirable 200-240 mg/dL Borderline >240 mg/dL High Risk :03 VIT D,25 43284 38.0 ng/mL (Normal) Comments: appt 03-08-10 Range: 32.0-100.0 Comments: Effective January 11, 2011 Vitamin D, 25-Hydroxy reference intervals will be changing to 30-100. .Recent studies consider the lower li chilo of 32.0 ng/mL to be athreshold for optimal health.Mark LUDWIG. J Nutr. 2004;135(2):317-22.Performed at: [address] [id number] Director: Lakshmi Pino MD, Phone: [phone] VITAMIN B12 696 pg/mL (Normal) Range: 254-1320 Comments: There is a low frequency possibility that high titers ofintrinsic blocking antibodies may not be completely inactivated during the reaction pretreatment stepof this testing method. If test results are i n conflictwith the clinical diagnosis, patient should be testedfor the presence of intrinsic factor blocking antibodies. 09-Xpd-244261:05 Rapid Strep Test, Office (45531) Rapid Strep Test, Office Negative (Normal) :00 CULTURE, THROAT See Note (Normal) Comments: Normal throat ashkan isolated. No beta-hemolyticstreptococcus isolated. 68-Bby-28924:00 CHEST WITHOUT CONTRAST Radiology Report See Note (Normal) Comments: PROCEDURE: CT CHEST WITHOUT CONTRAST REASON FOR EXAM: Male, 60 years old. Question of scarring in lungbases.History of asthma, short all of breath TECHNIQUE: High resolution transaxial imaging wa s performed without theadministration of intravenous contrast material. COMPARISON: CT of the abdomen dated October 05, 2010 FINDINGS: There is faint atelectasis in the dependent lingula, right middle lobeandanterior portion of the left upper lobe. Lungs are otherwise clear. Nobronchiectasis or septal thickening. No gross pulmonary infiltrates.Thereis no demonstrated pleural abnormality. There is mil d cardiac enlargement. There are scattered coronarycalcifications. Endovascular stent is seen in the left anteriordescendingartery. Normal mediastinum. Normal hilar regions. Normal unenhanced pulmonar yarteries. There are sparse calcifications in the thoracic aorta. There are degenerative changes in the thoracic spine Visualized upper abdomen is unremarkable IMPRESSION:Mild atelectasis in the depend ent lungs Vascular calcifications Dictated on 10/10/10 0921 by Clarke Butt MDTranscribed on 10/11/10 0243 by ITS IMPORTSign by Clarke Butt MD on 10/11/10 0244 Sign by: Clarke Butt MD [id number]-[id number]:58 GALLBLADDER Radiology Report See Note (Normal) Comments: PROCEDURE: ABDOMINAL ULTRASOUND - RIGHT UPPER QUADRANT REASON FOR VISIT: Male, 60 years old. Abdominal pain. TECHNIQUE: Ultrasound evaluation of the right upper quadrant [facility]per[facility] e ultrasonography and static grayscale imaging. TECHNICAL QUALITY: Adequate. COMPARISON: None. FINDINGS: Liver: Normal size of the liver. The liver measures 14.8 cm. There isnormal echogenicity of the liver. There is no demonstrated mass lesion.There is no intrahepatic biliary ductal dilatation. Gallbladder: Normal distended gallbladder. The gallbladder wallmeasures2 mm. There are no demo nstrated gallstones. There is a negativesonographic Resendez's sign. There is no pericholecystic fluid. Common Bile Duct (C.B.D.): Normal size C.B.D. The common bile ductmeasures 3 mm. Pancreas: Not seen. There is no ascites. Right kidney is within normal limits. IMPRESSION:No evidence of acute cholecystitis. Dictated on 10/07/10 1038 by Subha Alvarado MDranscribed on 10/08/10 1401 by ITS IMPOR TSign by Jake Alvarado MD on 10/08/10 1402 Sign by: Jake Alvarado MD 46-Mtf-14979:00 CULTURE, URINE URINE CULTURE See Note {CFU/mL} (Normal) Comments: COLONY COUNT <1000 ORGANISM 1: MIXED GRAM POSITIVE ORGANISMS 90-Ebx-947797:19 Urinalysis, Office (40061) UA - BILIRUBIN Negative (Normal) UA - BLOOD Non Hemolyzed Trace (Normal) UA - GLUCOSE Negative (Normal) UA - KETONES Negative mg/dL (Normal) UA - LEUKOCYTE ESTERASE Negative (Normal) UA - NITRITE Negative (Normal) UA - PH 7.0 (Normal) UA - PROTEIN Negative mg/dL (Normal) UA - SPECIFIC GRAVITY 1.010 (Normal) URINE UROBILINGN MASSIEL TIMED Normal mg/dL (Normal) 91-Mph-93209:00 ABDOMEN/PELVIS WITHOUT CONT Radiology Report See Note (Normal) Comments: PROCEDURE: CT ABDOMEN AND PELVIS WITHOUT CONTRAST REASON FOR EXAM: Male, 60 years old. Right-sided pain. TECHNIQUE: Transaxial images were obtained from the dome of thediaphragmto the symphysis pu bis without oral contrast, and without intravenouscontrast. Multiplanar coronal and sagittal images were reformatted. COMPARISON: None. FINDINGS:Mild peripheral focal interstitial fibrosis in the pos terior right lowerlobe. Normal unenhanced liver. Normal gallbladder and extrahepatic biliarysystem. Normal unenhanced spleen. Normal pancreas. Normal bilateral adrenal glands. Normal size of the righ t kidney. There is no right renal mass. Thereareno right renal calculi. There is no right hydronephrosis. Normalvisualized right ureter. Normal size of the left kidney. There is no left renal mass. There arenoleft renal calculi. There is no left hydronephrosis. Normal visualizedleft ureter. Normal visualized stomach. Normal small intestine. Normal colon. Theappendix is visualized and appear s normal. There is no demonstrated peritoneal fluid. There is mild diffuse atherosclerotic calcification of the abdominalaorta,without a demonstrated aneurysm. Normal inferior vena cava. Normalretrope ritoneum. Normal urinary bladder. There is no pelvic mass lesion orlymphadenopathy.There is no pelvic fluid. There are prostatic calcifications. Normal abdominal wall. There are diffuse degenerative changes of thevisualized lumbar spine. IMPRESSION:No CT evidence of an acute intra-abdominal or pelvic process. Mild peripheral interstitial fibrotic changes at the right posterior lungbase and evidence of atherosclerotic vascular disease. Dictated on 10/05/101828 by Deshawn Mraie MDTranscribed on 10/05/101954 by ITS IMPORTSign by Deshawn Marie MD on 10/05/101955 Sign by: Deshawn Marie MD :22 CHEST, PA AND LATERAL Radiology Report See Note (Normal) Comments: PROCEDURE: X-RAY CHEST REASON FOR EXAM: Male, 59 years old. Asthma, intrinsic. TECHNIQUE: Frontal and lateral views of the chest. COMPARISON: 05/09/2008. FINDINGS: The lungs are expanded. There is no demonstrated parenchymalabnormality.There is no demonstrated pleural abnormality. Normal heart and pericardium. Normal mediastinum and deborah. Normal visualized pulmonary arteries.Normalvisualized aortic arch and descending thoracic aorta. There are degenerative changes of the visualized thoracic spine. Therearesuture anchors in the right shoulder. There is no demonstrated abnormality of the vis ualized soft tissuestructures of the upper abdomen. IMPRESSION:No active pulmonary disease. Dictated on 09/16/10 0631 by Cosmo Mahmood MDTranscribed on 09/16/101714 by ITS IMPORTSign by Cosmo Mahmood MD on 09/16/101715 Sign by: Cosmo Mahmood MD :11 HgA1C , Office (45441) HgA1C , Office 6.2 % (Normal) Range: 4.6 - 7.1 :11 Blood Glucose , Office (22502) Blood Glucose , Office 90 (Normal) :28 CBCD,SMEAR DIFF RED CELL MORPH SeeNote {NORMAL} (Normal) Comments: Result: NORM C+C PLT EST SeeNote (Normal) Comments: Result: ADEQUATE EOS 8 % (Abnormal) Range: 0-5 MONOCYTE 2 % (Normal) Range: 0-10 LYMPH 19 % (Normal) Range: 19-41 SEGS 71 % (Abnormal) Range: 47-70 CELLS COUNTED 100 (Normal) ABSOLUTE NEUT 4.6 3/uL (Normal) Range: 2.0-7.7 PLT 178 K/mm3 (Normal) Range: 150-450 RDW 12.8 % (Normal) Range: 11.6-14.6 MCHC 33.4 g/dL (Normal) Range: 32-36 MCH 33.3 pg (Abnormal) Range: 27.0-32.0 MCV 99.5 fL (Abnormal) Range: 80-94 HCT 39.6 % (Abnormal) Range: 40-54 HGB 13.2 g/dL (Abnormal) Range: 14.0-18.0 RBC 3.98 {M/mm3} (Abnormal) Range: 4.6-6.2 WBC 6.8 K/mm3 (Normal) Range: 4.4-11.0 :28 COMP METABOLIC GAP 5 (Normal) Range: 5-15 CO2 31.0 mmol/L (Normal) Range: 21.0-32.0 CL 104 mmol/L (Normal) Range: 98-107 K 4.7 mmol/L (Normal) Range: 3.5-5.1 NA 140 mmol/L (Normal) Range: 136-145 T BILI 0.40 mg/dL (Normal) Range: 0.00-1.00 ALT 25 U/L (Normal) Range: 12-78 ALK P 41 U/L (Abnormal) Range: 50-136 AST 15 U/L (Normal) Range: 15-37 CA 8.9 mg/dL (Normal) Range: 8.5-10.1 A/G 1.1 {RATIO} (Normal) Range: 0.9-2.4 GLOB 3.2 g/dL (Normal) Range: 2.7-4.2 ALB 3.6 g/dL (Normal) Range: 3.4-5.0 T PROT 6.8 g/dL (Normal) Range: 6.4-8.2 BUN/CRE 17.1 {RATIO} (Normal) Range: 10-20 EST GFR - AA 150 mL/min (Normal) EST GFR 124 mL/min (Normal) CREAT,SERUM 0.7 mg/dL (Abnormal) Range: 0.8-1.3 BUN 12 mg/dL (Normal) Range: 7-18 GLU 111 mg/dL (Abnormal) Range: 70-110 Comments: Fasting Glucose result from 110 to <126 mg/dL suggests IMPAIRED HOMEOSTASIS per A.D.A. criteria. :28 LIPID VLDL 10 mg/dL (Normal) Range: 5-40 LDL 64 mg/dL (Normal) Range: 0-130 HDL 51 mg/dL (Normal) Comments: Reference Range HDL <40 mg/dL Low HDL Cholesterol HDL >or= 60 mg/dL High HDL Cholesterol TRIG 51 mg/dL (Normal) Comments: Serum Triglycerides Reference Interval Normal <150 mg/dL Borderline high 150 - 199 mg/dL High 200 - 499 mg/dL Very High > or = 500 mg/dL CHOL 125 mg/dL (Normal) Comments: <200 mg/dL Desirable 200-240 mg/dL Borderline >240 mg/dL High Risk :53 HgA1C , Office (75853) HgA1C , Office 6.4 % (Normal) Range: 4.6 - 7.1 :53 Blood Glucose , Office (45691) Blood Glucose , Office 108 (Normal) :39 CULTURE, URINE URINE CULTURE Culture exhibits no growth. (Normal) :54 Urinalysis, Office (12226) UA - BILIRUBIN Negative (Normal) UA - BLOOD Negative (Normal) UA - GLUCOSE Negative (Normal) UA - KETONES Negative mg/dL (Normal) UA - LEUKOCYTE ESTERASE Negative (Normal) UA - NITRITE Negative (Normal) UA - PH 7.0 (Normal) UA - PROTEIN Negative mg/dL (Normal) UA - SPECIFIC GRAVITY 1.010 (Normal) URINE UROBILINGN MASSIEL TIMED Normal mg/dL (Normal) :37 HgA1C , Office (03310) HgA1C , Office 6.1 % (Normal) Range: 4.6 - 7.1 :37 Blood Glucose , Office (04587) Blood Glucose , Office 96 (Normal) 40-Cwy-225691:46 CBCD,SMEAR DIFF PLT EST SeeNote (Normal) Comments: Result: ADEQUATE RED CELL MORPH SeeNote {NORMAL} (Normal) Comments: Result: NORM C+C EOS 1 % (Normal) Range: 0-5 LYMPH 29 % (Normal) Range: 19-41 MONOCYTE 3 % (Normal) Range: 0-10 SEGS 67 % (Normal) Range: 47-70 ABSOLUTE NEUT 5.1 3/uL (Normal) Range: 2.0-7.7 CELLS COUNTED 100 (Normal) PLT 300 K/mm3 (Normal) Range: 150-450 MCHC 34.6 g/dL (Normal) Range: 32-36 RDW 12.6 % (Normal) Range: 11.6-14.6 HCT 42.5 % (Normal) Range: 40-54 MCH 33.5 pg (Abnormal) Range: 27.0-32.0 MCV 96.9 fL (Abnormal) Range: 80-94 HGB 14.7 g/dL (Normal) Range: 14.0-18.0 RBC 4.38 {M/mm3} (Abnormal) Range: 4.6-6.2 WBC 7.5 K/mm3 (Normal) Range: 4.4-11.0 60-Hdo-469594:46 COMP METABOLIC GAP 7 (Normal) Range: 5-15 CL 103 mmol/L (Normal) Range: 98-107 CO2 30.0 mmol/L (Normal) Range: 21.0-32.0 K 4.5 mmol/L (Normal) Range: 3.5-5.1 NA 140 mmol/L (Normal) Range: 136-145 T BILI 0.40 mg/dL (Normal) Range: 0.00-1.00 ALT 30 U/L (Normal) Range: 12-78 ALK P 43 U/L (Abnormal) Range: 50-136 AST 17 U/L (Normal) Range: 15-37 A/G 1.0 {RATIO} (Normal) Range: 0.9-2.4 ALB 3.7 g/dL (Normal) Range: 3.4-5.0 CA 9.0 mg/dL (Normal) Range: 8.5-10.1 GLOB 3.6 g/dL (Normal) Range: 2.7-4.2 BUN/CRE 17.1 {RATIO} (Normal) Range: 10-20 T PROT 7.3 g/dL (Normal) Range: 6.4-8.2 CREAT,SERUM 0.7 mg/dL (Abnormal) Range: 0.8-1.3 EST GFR 124 mL/min (Normal) EST GFR - AA 150 mL/min (Normal) BUN 12 mg/dL (Normal) Range: 7-18 GLU 105 mg/dL (Normal) Range: 70-110 64-Xld-148307:46 LIPID VLDL 10 mg/dL (Normal) Range: 5-40 HDL 60 mg/dL (Normal) Comments: Reference Range HDL <40 mg/dL Low HDL Cholesterol HDL >or= 60 mg/dL High HDL Cholesterol LDL 75 mg/dL (Normal) Range: 0-130 TRIG 50 mg/dL (Normal) Comments: Serum Triglycerides Reference Interval Normal <150 mg/dL Borderline high 150 - 199 mg/dL High 200 - 499 mg/dL Very High > or = 500 mg/dL CHOL 145 mg/dL (Normal) Comments: <200 mg/dL Desirable 200-240 mg/dL Borderline >240 mg/dL High Risk :46 MICROALB:CRE UR MALB:CREAT 4.8 {mg/g_CRE} (Normal) MICROALBUMIN,UR 8.1 mg/L (Normal) UR CREAT 166.2 mg/dL (Normal) 48-[id number] PSA, SCREEN 0.5 ng/mL (Normal) Range: 0.0-4.0 :22 HgA1C , Office (11940) HgA1C , Office 6.1 % (Normal) Range: 4.6 - 7.1 :22 Blood Glucose , Office (46673) Blood Glucose , Office 123 (Normal) :47 HgA1C , Office (39713) HgA1C , Office 6.3 % (Normal) Range: 4.6 - 7.1 :47 Blood Glucose , Office (74049) Blood Glucose , Office 103 (Normal) :05 COMP METABOLIC ALK P 56 U/L (Normal) Range: 50-136 ALT 24 U/L (Normal) Range: 12-78 AST 15 U/L (Normal) Range: 15-37 CL 100 mmol/L (Normal) Range: 98-107 CO2 28.0 mmol/L (Normal) Range: 21.0-32.0 GAP 10 (Normal) Range: 5-15 K 4.4 mmol/L (Normal) Range: 3.5-5.1 NA 138 mmol/L (Normal) Range: 136-145 T BILI 0.40 mg/dL (Normal) Range: 0.00-1.00 A/G 1.2 {RATIO} (Normal) Range: 0.9-2.4 ALB 3.8 g/dL (Normal) Range: 3.4-5.0 CA 8.9 mg/dL (Normal) Range: 8.5-10.1 GLOB 3.3 g/dL (Normal) Range: 2.7-4.2 T PROT 7.1 g/dL (Normal) Range: 6.4-8.2 BUN 11 mg/dL (Normal) Range: 7-18 BUN/CRE 13.8 {RATIO} (Normal) Range: 10-20 CREAT,SERUM 0.8 mg/dL (Normal) Range: 0.8-1.3 EST GFR 106 mL/min (Normal) EST GFR - AA 128 mL/min (Normal) GLU 107 mg/dL (Normal) Range: 70-110 :05 LIPID HDL 58 mg/dL (Normal) Comments: Reference RangeHDL <40 mg/dL Low HDL CholesterolHDL >or= 60 mg/dL High HDL Cholesterol LDL 77 mg/dL (Normal) Range: 0-130 VLDL 7 mg/dL (Normal) Range: 5-40 CHOL 142 mg/dL (Normal) Comments: <200 mg/dL [id number] mg/dL Borderline>240 mg/dL High Risk TRIG 35 mg/dL (Normal) Comments: Serum Triglycerides Reference IntervalNormal <150 mg/dLBorderline high 150 - 199 mg/dLHigh 200 - 499 mg/ dLVery High > or = 500 mg/dL :24 HgA1C , Office (03602) HgA1C , Office 6.2 % (Normal) Range: 4.6 - 7.1 :23 Blood Glucose , Office (51993) Blood Glucose , Office 96 (Normal) [id number]-Bnr-[id number] GASTRIC EMPTYING STUDY Radiology Report See Note (Normal) Comments: Exam Number: [id number] GASTRIC EMPTYING STUDY A gastric emptying study was performed. The patient ingested 1 mCi [id number] Sulfur colloid with oatmeal. HISTORYThis is a 58-year-old male patie nt with hist ory of bloating andgastroesophageal reflux. FINDINGSAt 1 hour, there is complete emptying of the stomach of theradiopharmaceutical. This is a normal study. IMPRESSIONNormal examination. There is no e vidence of gastric retention. Reported By: WILFREDO ALVARADO :33 HgA1C , Office (26596) HgA1C , Office 5.9 % (Normal) Range: 4.6 - 7.1 :33 Blood Glucose , Office (62250) Blood Glucose , Office 111 (Normal) :08 COMP METABOLIC A/G 1.1 {RATIO} (Normal) Range: 0.9-2.4 ALB 3.5 g/dL (Normal) Range: 3.4-5.0 ALK P 47 U/L (Abnormal) Range: 50-136 ALT 27 U/L (Abnormal) Range: 30-65 AST 16 U/L (Normal) Range: 15-37 BUN 12 mg/dL (Normal) Range: 7-18 BUN/CRE 17.1 {RATIO} (Normal) Range: 10-20 CA 8.3 mg/dL (Abnormal) Range: 8.5-10.1 CL 100 mmol/L (Normal) Range: 98-107 CO2 28.0 mmol/L (Normal) Range: 21.0-32.0 CREAT,SERUM 0.7 mg/dL (Abnormal) Range: 0.8-1.3 EST GFR 124 mL/min (Normal) EST GFR - AA 150 mL/min (Normal) GAP 8 (Normal) Range: 5-15 GLOB 3.3 g/dL (Normal) Range: 2.7-4.2 GLU 100 mg/dL (Normal) Range: 70-110 K 4.0 mmol/L (Normal) Range: 3.5-5.1 NA 136 mmol/L (Normal) Range: 136-145 T BILI 0.50 mg/dL (Normal) Range: 0.00-1.00 T PROT 6.8 g/dL (Normal) Range: 6.4-8.2 :08 LIPID CHOL 121 mg/dL (Normal) Comments: <200 mg/dL Desirable 200-240 mg/dL Borderline >240 mg/dL High Risk HDL 45 mg/dL (Normal) Comments: Reference Range HDL <40 mg/dL Low HDL Cholesterol HDL >or= 60 mg/dL High HDL Cholesterol LDL 65 mg/dL (Normal) Range: 0-130 TRIG 56 mg/dL (Normal) Comments: Serum Triglycerides Reference Interval Normal <150 mg/dL Borderline high 150 - 199 mg/dL High 200 - 499 mg/dL Very High > or = 500 mg/dL VLDL 11 mg/dL (Normal) Range: 5-40 :08 PSA, SCREEN 0.7 ng/mL (Normal) Range: 0.0-4.0 :46 Blood Glucose , Office (70964) Blood Glucose , Office 156 (Normal) :46 HgA1C , Office (12072) HgA1C , Office 5.8 % (Normal) Range: 4.6 - 7.1 :12 HgA1C , Office (39613) Comments: done HgA1C , Office 5.8 % (Normal) Range: 4.6 - 7.1 :12 Blood Glucose , Office (17350) Comments: done Blood Glucose , Office 99 (Normal) :06 CBCD,SMEAR DIFF CELLS COUNTED 100 (Normal) EOS 6 % (Abnormal) Range: 0-5 HCT 40.8 % (Normal) Range: 40-54 HGB 14.0 g/dL (Normal) Range: 14.0-18.0 LYMPH 15 % (Abnormal) Range: 19-41 MCH 32.4 pg (Abnormal) Range: 27.0-32.0 MCHC 34.3 g/dL (Normal) Range: 32-36 MCV 94.6 fL (Abnormal) Range: 80-94 MONOCYTE 4 % (Normal) Range: 0-10 PLT 190 K/mm3 (Normal) Range: 150-450 PLT EST SeeNote (Normal) Comments: Result: ADEQUATE RBC 4.31 {M/mm3} (Abnormal) Range: 4.6-6.2 RDW 12.5 % (Normal) Range: 11.6-14.6 RED CELL MORPH SeeNote {NORMAL} (Normal) Comments: Result: NORM C+C SEGS 75 % (Abnormal) Range: 47-70 WBC 7.0 K/mm3 (Normal) Range: 4.4-11.0 COMP METABOLIC A/G 1.1 {RATIO} (Normal) Range: 0.9-2.4 ALB 3.7 g/dL (Normal) Range: 3.4-5.0 ALK P 52 U/L (Normal) Range: 50-136 ALT 29 U/L (Abnormal) Range: 30-65 AST 16 U/L (Normal) Range: 15-37 BUN 14 mg/dL (Normal) Range: 7-18 BUN/CRE 14.0 {RATIO} (Normal) Range: 10-20 CA 8.8 mg/dL (Normal) Range: 8.5-10.1 CL 105 mmol/L (Normal) Range: 98-107 CO2 29.0 mmol/L (Normal) Range: 21.0-32.0 CREAT,SERUM 1.0 mg/dL (Normal) Range: 0.8-1.3 EST GFR 82 mL/min (Normal) EST GFR - AA 99 mL/min (Normal) GAP 3 (Abnormal) Range: 5-15 GLOB 3.4 g/dL (Normal) Range: 2.7-4.2 GLU 104 mg/dL (Normal) Range: 70-110 K 3.9 mmol/L (Normal) Range: 3.5-5.1 NA 137 mmol/L (Normal) Range: 136-145 T BILI 0.50 mg/dL (Normal) Range: 0.00-1.00 T PROT 7.1 g/dL (Normal) Range: 6.4-8.2 :06 D BILI 0.11 mg/dL (Normal) Range: 0.00-0.30 :06 LIPID CHOL 143 mg/dL (Normal) Comments: <200 mg/dL Desirable 200-240 mg/dL Borderline >240 mg/dL High Risk HDL 32 mg/dL (Abnormal) Comments: Reference Range HDL <40 mg/dL Low HDL Cholesterol HDL >or= 60 mg/dL High HDL Cholesterol LDL 100 mg/dL (Normal) Range: 0-130 TRIG 55 mg/dL (Normal) Comments: Serum Triglycerides Reference Interval Normal <150 mg/dL Borderline high 150 - 199 mg/dL High 200 - 499 mg/dL Very High > or = 500 mg/dL VLDL 11 mg/dL (Normal) Range: 5-40 :06 MICROALB:CRE UR MALB:CREAT 4.0 {mg/g_CRE} (Normal) MICROALBUMIN,UR 6.2 mg/L (Normal) UR CREAT 152.1 mg/dL (Normal) : FERRITIN 92 ng/mL (Normal) Range: 26-388 :22 TRANSFERRN 4937 260 mg/dL (Normal) Range: 200-370 Comments: Performed At: [address] [id number] :44 Blood Glucose , Office (19145) Blood Glucose , Office 92 (Normal) :44 HgA1C , Office (20521) HgA1C , Office 5.7 % (Normal) Range: 4.6 - 7.1 :40 GLU GTT-2 HOUR 191 mg/dL (Abnormal) Comments: 2HR GTT GLU 2 HR GLU GTT-2 HOUR from [id number]. Range: 70-120 :20 GLU GTT-1 HOUR 178 mg/dL (Abnormal) Comments: 2HR GTT GLU 1 HR GLU GTT-1 HOUR from [id number]. Range: 120-170 :40 GLU GTT-30 min. 183 mg/dL (Abnormal) Comments: 2HR GTT GLU 1/2 HR GLU GTT-30 min. from [id number]. Range: 110-170 :01 GLU GTT-FASTING 106 mg/dL (Normal) Comments: 2HR GTT FASTING GLU GTT-FASTING from [id number]. Range: 70-110 Comments: GLUCOSE TOLERANCE TEST Reference Interval Non- Adults Fasting 70 - 110 30 minutes 110 - 170 1 hour 120 - 170 2 hour 70 - 120 3 hour 70 - 110 4 hour 70 - 110 5 hour 70 - 110 :12 CBCD,SMEAR DIFF CELLS COUNTED 100 (Normal) EOS 1 % (Normal) Range: 0-5 HCT 41.0 % (Normal) Range: 40-54 HGB 14.1 g/dL (Normal) Range: 14.0-18.0 LYMPH 37 % (Normal) Range: 19-41 MCH 32.5 pg (Abnormal) Range: 27.0-32.0 MCHC 34.4 g/dL (Normal) Range: 32-36 MCV 94.5 fL (Abnormal) Range: 80-94 MONOCYTE 5 % (Normal) Range: 0-10 PLT 204 K/mm3 (Normal) Range: 150-450 PLT EST SeeNote (Normal) Comments: Result: ADEQUATE RBC 4.34 {M/mm3} (Abnormal) Range: 4.6-6.2 RDW 12.6 % (Normal) Range: 11.6-14.6 RED CELL MORPH SeeNote {NORMAL} (Normal) Comments: Result: NORM C+C SEGS 57 % (Normal) Range: 47-70 WBC 8.2 K/mm3 (Normal) Range: 4.4-11.0 35-Npf-32553:12 COMP METABOLIC A/G 1.3 {RATIO} (Normal) Range: 0.9-2.4 ALB 3.9 g/dL (Normal) Range: 3.4-5.0 ALK P 49 U/L (Abnormal) Range: 50-136 ALT 36 U/L (Normal) Range: 30-65 AST 17 U/L (Normal) Range: 15-37 BUN 11 mg/dL (Normal) Range: 7-18 BUN/CRE 13.8 {RATIO} (Normal) Range: 10-20 CA 8.8 mg/dL (Normal) Range: 8.5-10.1 CL 103 mmol/L (Normal) Range: 98-107 CO2 29.3 mmol/L (Normal) Range: 21.0-32.0 CREAT,SERUM 0.8 mg/dL (Normal) Range: 0.8-1.3 GAP 8 (Normal) Range: 5-15 GLOB 3.0 g/dL (Normal) Range: 2.7-4.2 GLU 110 mg/dL (Normal) Range: 70-110 Comments: Fasting Glucose result from 110 to <126 mg/dL suggests IMPAIRED HOMEOSTASIS per A.D.A. criteria. K 3.9 mmol/L (Normal) Range: 3.5-5.1 NA 140 mmol/L (Normal) Range: 136-145 T BILI 0.44 mg/dL (Normal) Range: 0.00-1.00 T PROT 6.9 g/dL (Normal) Range: 6.4-8.2 :12 LIPID CHOL 137 mg/dL (Normal) Comments: <200 mg/dL Desirable 200-240 mg/dL Borderline >240 mg/dL High Risk HDL 41 mg/dL (Normal) Comments: Reference Range HDL <40 mg/dL Low HDL Cholesterol HDL >or= 60 mg/dL High HDL Cholesterol LDL 78 mg/dL (Normal) Range: 0-130 TRIG 88 mg/dL (Normal) Comments: Serum Triglycerides Reference Interval Normal <150 mg/dL Borderline high 150 - 199 mg/dL High 200 - 499 mg/dL Very High > or = 500 mg/dL VLDL 18 mg/dL (Normal) Range: 5-40 :12 TSH 2.48 {uIU/mL} (Normal) Range: 0.34-4.82 :12 CBCD,SMEAR DIFF CELLS COUNTED 100 (Normal) EOS 1 % (Normal) Range: 0-5 HCT 43.9 % (Normal) Range: 40-54 HGB 15.1 g/dL (Normal) Range: 14.0-18.0 LYMPH 39 % (Normal) Range: 19-41 MCH 32.6 pg (Abnormal) Range: 27.0-32.0 MCHC 34.3 g/dL (Normal) Range: 32-36 MCV 95.1 fL (Abnormal) Range: 80-94 MONOCYTE 8 % (Normal) Range: 0-10 PLT 280 K/mm3 (Normal) Range: 150-450 PLT EST SeeNote (Normal) Comments: Result: ADEQUATE RBC 4.62 {M/mm3} (Normal) Range: 4.6-6.2 RDW 13.7 % (Normal) Range: 11.6-14.6 RED CELL MORPH SeeNote {NORMAL} (Normal) Comments: Result: NORM C+C SEGS 52 % (Normal) Range: 47-70 WBC 9.1 K/mm3 (Normal) Range: 4.4-11.0 :12 COMP METABOLIC A/G 1.6 {RATIO} (Normal) Range: 0.9-2.4 ALB 4.3 g/dL (Normal) Range: 3.4-5.0 ALK P 47 U/L (Abnormal) Range: 50-136 ALT 36 [iU]/L (Normal) Range: 30-65 AST 20 U/L (Normal) Range: 15-37 BUN 21 mg/dL (Abnormal) Range: 7-18 BUN/CRE 21.0 {RATIO} (Abnormal) Range: 10-20 CA 8.7 mg/dL (Normal) Range: 8.5-10.1 CL 103 mmol/L (Normal) Range: 98-107 CO2 31.4 mmol/L (Normal) Range: 21.0-32.0 Comments: Please Note Reference Interval Change CREAT,SERUM 1.0 mg/dL (Normal) Range: 0.8-1.3 GAP 5 (Normal) Range: 5-15 GLOB 2.7 g/dL (Normal) Range: 2.7-4.2 Comments: Please Note Reference Interval Change GLU 100 mg/dL (Normal) Range: 70-110 K 4.1 mmol/L (Normal) Range: 3.5-5.1 NA 139 mmol/L (Normal) Range: 136-145 T BILI 0.64 mg/dL (Normal) Range: 0.00-1.00 T PROT 7.0 g/dL (Normal) Range: 6.4-8.2 69-Nny-772636:12 LIPID CHOL 154 mg/dL (Normal) Comments: <200 mg/dL Desirable 200-240 mg/dL Borderline >240 mg/dL High Risk HDL 53 mg/dL (Normal) Comments: Reference Range HDL <40 mg/dL Low HDL Cholesterol HDL >or= 60 mg/dL High HDL Cholesterol LDL 86 mg/dL (Normal) Range: 0-130 TRIG 74 mg/dL (Normal) Comments: Serum Triglycerides Reference Interval Normal <150 mg/dL Borderline high 150 - 199 mg/dL High 200 - 499 mg/dL Very High > or = 500 mg/dL VLDL 15 mg/dL (Normal) Range: 5-40 47-Rmz-286210:12 PSA,TOT SCREEN 0.96 ng/mL (Normal) Range: 0.00-4.00 Comments: This test was performed using the TPSA method for theDimension chemistry system.Values obtained with different assay methods cannot be usedinterchangably.When changing PSA assays in the course of monito ring apatient, additional sequential testing should be carriedout to confirm baseline values. 89-Vor-[id number]:12 ROUTINE UA BILIRUBIN URINE SeeNote (Normal) Comments: Result: NEGATIVE CLARITY CLEAR (Normal) COLOR YELLOW (Normal) GLUCOSE, UR SeeNote (Normal) Comments: Result: NEGATIVE KETONE UR SeeNote mg/dL (Normal) Comments: Result: NEGATIVE LEUK ESTERASE SeeNote (Normal) Comments: Result: NEGATIVE NITRITE UR SeeNote (Normal) Comments: Result: NEGATIVE OCCULT BLOOD-UR SeeNote (Normal) Comments: Result: NEGATIVE pH UR 5.5 (Normal) Range: 5.0-8.0 PROT CONF. 20 mg/dL (Abnormal) Range: 0-5 PROT DIPSTX 2+ (Abnormal) SP.GR. DIPSTX >=1.030 (Normal) Range: 1.002-1.030 UROBILI 0.2 EU/dl (Normal) Range: 0.2 - 1.0 07-Sxu-046946:12 TSH 1.38 {uIU/mL} (Normal) Range: 0.34-4.82 11-Oox-25341:03 CHEST WITH CONTRAST Radiology Report See Note (Normal) Comments: Exam Number: [id number] CHEST CT WITH INTRAVENOUS CONTRAST. REASON FOR EXAMINATIONLymphadenopathy. Contrast enhanced MDCT was performed. Axial reconstructions wereobtained from thoracic inlet to lung bases. COMPARISON STUDYJune 2005. FINDINGSThere is adequate contrast opacification of mediastinal and hilarvascular structures. Thoracic aorta is normal in course, caliber, andcontour. There are a few scattered atherosclerotic wallcalcifications without associated aneurysm or dissection. There is noabnormal periaortic fluid collection. There is moderateatherosclerotic calcification associate d with the coronary arteries. There is no mediastinal or hilar adenopathy. There is no CTsignificant axillary adenopathy. Lungs are clear. Scans through theupper abdomen are noncontributory. IMPRES SION1. Mild atherosclerotic vascular calcification associated with the thoracic aorta. 2. Moderate atherosclerotic calcification associated with the coronaries, particularly the LAD. 3. Negati ve for mediastinal, hilar, or axillary adenopathy. Reported By: EHSAN COKER M.D. BC No growth in 5 6:14 days. (Normal) 8-Hbt-723260:14 CBCD,SMEAR DIFF BAND 1 % (Normal) Range: 0-5 CELLS COUNTED 100 (Normal) EOS 5 % (Normal) Range: 0-5 HCT 38.3 % (Abnormal) Range: 40-54 HGB 13.1 g/dL (Abnormal) Range: 14.0-18.0 LYMPH 29 % (Normal) Range: 19-41 MCH 32.3 pg (Abnormal) Range: 27.0-32.0 MCHC 34.3 g/dL (Normal) Range: 32-36 MCV 94.2 fL (Abnormal) Range: 80-94 MONOCYTE 6 % (Normal) Range: 0-10 PLT 229 K/mm3 (Normal) Range: 150-450 PLT EST SeeNote (Normal) Comments: Result: ADEQUATE RBC 4.07 {M/mm3} (Abnormal) Range: 4.6-6.2 RDW 12.4 % (Normal) Range: 11.6-14.6 RED CELL MORPH SeeNote {NORMAL} (Normal) Comments: Result: NORM C+C SEGS 59 % (Normal) Range: 47-70 WBC 5.6 K/mm3 (Normal) Range: 4.4-11.0 :14 COMP METABOLIC A/G 1.2 {RATIO} (Normal) Range: 0.9-2.4 ALB 3.4 g/dL (Normal) Range: 3.4-5.0 ALK P 48 U/L (Abnormal) Range: 50-136 ALT 41 [iU]/L (Normal) Range: 30-65 AST 23 U/L (Normal) Range: 15-37 BUN 11 mg/dL (Normal) Range: 7-18 BUN/CRE 15.7 {RATIO} (Normal) Range: 10-20 CA 8.2 mg/dL (Abnormal) Range: 8.5-10.1 CL 103 mmol/L (Normal) Range: 98-107 CO2 31.5 mmol/L (Normal) Range: 21.0-32.0 Comments: Please Note Reference Interval Change CREAT,SERUM 0.7 mg/dL (Abnormal) Range: 0.8-1.3 GAP 6 (Normal) Range: 5-15 GLOB 2.9 g/dL (Normal) Range: 2.7-4.2 Comments: Please Note Reference Interval Change GLU 98 mg/dL (Normal) Range: 70-110 K 3.9 mmol/L (Normal) Range: 3.5-5.1 NA 140 mmol/L (Normal) Range: 136-145 T BILI 0.26 mg/dL (Normal) Range: 0.00-1.00 T PROT 6.3 g/dL (Abnormal) Range: 6.4-8.2 69-Wdz-045501:19 EBVIgG/M [id number] EB-EA IgG 63018 79 AU/mL (Normal) Range: 0-99 Comments: Negative <100 Equivocal 100 - 120 Positive >120 EB-NAg [id number] 656 AU/mL (Abnormal) Range: 0-99 Comments: Negative <100 Equivocal 100 - 120 Positive >120 EB-VCA [id number] 2296 AU/mL (Abnormal) Range: 0-99 Comments: Negative <100 Equivocal 100 - 120 Positive >120 EB-VCA [id number] 9 AU/mL (Normal) Range: 0-99 Comments: Negative <100 Equivocal 100 - 120 Positive >120 INTERPRETATION Comment (Normal) Comments: EBV Interpretation Chart: VCA-IgM EA-IgG VCA-IgG NA-ABS Susceptible - - - - Acute Infection + + or- + - Convalescent Phase +or- +or- + + Chronic or Reactivated - + + +or- Old Infe ction - - +or- + + Antibody Present - Antibody AbsentPerformed At: [facility] [id number] [place], [place] [id number] 37-Fla-396488:00 CULTURE, THROAT See Note (Normal) Comments: Normal throat ashkan isolated. No beta-hemolyticstreptococcus isolated. 43-Ijr-475282:35 Rapid Strep Test, Office (10399) Rapid Strep Test, Office Negative (Normal) 41-Dfk-05517:40 TISS/FLUID P-BX/CY (Normal) Comments: OPERATION Biopsy, testicle, aspiration of left testicle PRE-OPERATIVE DIAGNOSIS Testicular lesion POST-OPERATIVE DIAGNOSIS Same TISSUE SUBMITTED A- Biopsy of right testicle, B- Aspiration fluid left testicle. MICROSCOPIC DIAGNOSIS A. Right testicle, biopsy: Fragments of fibroconnective and fibroadipose tissue, negative for malignancy in the available specimen. COMMENT Clinical correlation and appropriate follow up is necessary. CYTOLOGY STUDY B - The specimen consists of numerous mature sperm, a few spermatids and spermatogonia. Malignant cells are not identified. GROSS DESCRIPTION A - Received in formalin labeled with patient name and number and designated biopsy right testicle are multiple irregular fragments of light jorge soft tissue that in aggregate measure 0.7 x 0.3 x less t ramirez 0.1 cm. The specimen is totally submitted in one cassette. CYTOLOGY GROSS B - Received is 15 ml of light pink cloudy fluid designated aspiration fluid left testicle. Submitted for cytology stud y. / SJ:rin 11/09/06 TC:5 REPORT SIGNED: PAMELLA SON 11/10/0607-Nov-200656-Xdq-274298:55 ALDOLASE 2030 2.3 U/L (Normal) Range: 1.2-7.6 Comments: Performed At: [address] [id number] At: [address] [id number] 92-Pps-978141:55 JOHN-D [id number] JOHN-DIRECT 9 U/mL (Normal) Range: 0-99 Comments: Negative <100 Equivocal 100 - 120 Positive >120 23-Fcj-017320:55 C-REACTIVE PROT 0.52 mg/L (Normal) Range: 0.0-6.0 Comments: Test performed using the Dimension C-Reactive ProteinExtended Range assay method. This assay meets the AHA/CDC 2003 recommendations fordetermining patients at high risk for cardiovasculardisease. Reference: High risk CRP >3.0 mg/L 53-Rkk-762369:55 CBC HCT 42.8 % (Normal) Range: 40-54 HGB 15.0 g/dL (Normal) Range: 14.0-18.0 MCH 32.7 pg (Abnormal) Range: 27.0-32.0 MCHC 35.0 g/dL (Normal) Range: 32-36 MCV 93.5 fL (Normal) Range: 80-94 MPV 6.0 fL (Abnormal) Range: 6.5-12.0 PLT 254 K/mm3 (Normal) Range: 150-450 RBC 4.58 {M/mm3} (Abnormal) Range: 4.6-6.2 RDW 12.8 % (Normal) Range: 11.6-14.6 WBC 7.9 K/mm3 (Normal) Range: 4.4-11.0 :55 COMP METABOLIC A/G 1.3 {RATIO} (Normal) Range: 0.9-2.4 ALB 4.1 g/dL (Normal) Range: 3.4-5.0 ALK P 50 U/L (Normal) Range: 50-136 ALT 39 [iU]/L (Normal) Range: 30-65 AST 15 U/L (Normal) Range: 15-37 CA 8.8 mg/dL (Normal) Range: 8.5-10.1 CL 101 mmol/L (Normal) Range: 98-107 CO2 32.3 mmol/L (Abnormal) Range: 21.0-32.0 Comments: Please Note Reference Interval Change GAP 7 (Normal) Range: 5-15 GLOB 3.2 g/dL (Normal) Range: 2.7-4.2 Comments: Please Note Reference Interval Change K 4.2 mmol/L (Normal) Range: 3.5-5.1 NA 140 mmol/L (Normal) Range: 136-145 T BILI 0.35 mg/dL (Normal) Range: 0.00-1.00 T PROT 7.3 g/dL (Normal) Range: 6.4-8.2 BUN 13 mg/dL (Normal) Range: 7-18 BUN/CRE 18.6 {RATIO} (Normal) Range: 10-20 CREAT,SERUM 0.7 mg/dL (Abnormal) Range: 0.8-1.3 GLU 95 mg/dL (Normal) Range: 70-110 :55 CPK TOTAL 68 U/L (Normal) Range: 35-232 :55 ESR SED RATE 9 mm/h (Normal) Range: 0-20 :55 FSH 4309 5.6 m[iU]/mL (Normal) Range: 1.4-18.1 Comments: Male Female 5th day <0.2 - 4.6 <0.2 - 4.6 2 mo- 3 yrs. 0.2 - 2.7 1.4 - 9.2 4- 6 yrs. 0 .2 - 2.7 0.4 - 6.6 7- 9 yrs. 0.2 - 2.7 0.4 - 5.0 10-11 yrs. 0.4 - 5.0 Not Estab 12-13 yrs. 0.4 - 6.6 Not Estab 14-15 yrs. 0.7 - 13.2 Not Estab >15 yrs. 1.4 - 18.1 See Below Female Follicular 2.5 - 10.2 Midcycle 3.4 - 33.4 Luteal 1.5 - 9.1 <0.2 Postmenopausal 23.0 - 116.3 :55 LUTEIN HOR 4283 2.9 m[iU]/mL (Normal) Range: 1.5-9.3 Comments: Male Female 0- 1 yr. 0.5 - 1.9 0.0 - 0.5 2- 5 yrs. 0.0 - 0.5 0.0 - 0.5 6- 10 yrs. 0.0 - 0.5 0.0 - 0.5 11- 19 yrs. 0.5 - 5.3 0.5 - 9.0 20- 69 yrs. 1.5 - 9.3 0.0 - 76.3 70-100 y rs. 3.1 - 34.6 5.0 - 52.3 Female Follicular 1.9 - 12.5 Midcycle 8.7 - 7 6.3 Luteal 0.5 - 16.9 0.0 - 1.5 Postmenopausal 15. 9 - 54.0 Contraceptives 0.7 - 5.6 :55 RA LATEX 6502 4.9 {IU/mL} (Normal) Range: 0.0-13.9 :55 TESTOST [id number] TESTOSTER %FREE 2.87 % (Normal) Range: 1.50-4.20 TESTOSTER,FREE 9.16 ng/dL (Normal) Range: 5.00-21.00 TESTOSTER,TOTAL 319 ng/dL (Normal) Range: 241-827 :55 TSH 2.15 {uIU/mL} (Normal) Range: 0.34-4.82 :45 BMP Comments: COMMENTS: PAT FOR OR 11/09/06 BUN 11 mg/dL (Normal) Range: 7-18 BUN/CRE 15.7 {RATIO} (Normal) Range: 10-20 CA 8.5 mg/dL (Normal) Range: 8.5-10.1 CL 100 mmol/L (Normal) Range: 98-107 CO2 27.8 mmol/L (Normal) Range: 21.0-32.0 Comments: Please Note Reference Interval Change CREAT,SERUM 0.7 mg/dL (Abnormal) Range: 0.8-1.3 GAP 9 (Normal) Range: 5-15 GLU 101 mg/dL (Normal) Range: 70-110 K 4.4 mmol/L (Normal) Range: 3.5-5.1 NA 137 mmol/L (Normal) Range: 136-145 :45 CBCD Comments: COMMENTS: PAT FOR OR 11/09/06 BASO% 1.0 % (Normal) Range: 0-1 EO% 3.4 % (Normal) Range: 0-5 HCT 41.8 % (Normal) Range: 40-54 HGB 14.4 g/dL (Normal) Range: 14.0-18.0 LY% 19.6 % (Normal) Range: 19-41 MCH 32.2 pg (Abnormal) Range: 27.0-32.0 MCHC 34.5 g/dL (Normal) Range: 32-36 MCV 93.4 fL (Normal) Range: 80-94 MONO% 5.6 % (Normal) Range: 0-10 MPV 6.3 fL (Abnormal) Range: 6.5-12.0 NEUT% 70.4 % (Abnormal) Range: 47-70 PLT 223 K/mm3 (Normal) Range: 150-450 RBC 4.47 {M/mm3} (Abnormal) Range: 4.6-6.2 RDW 12.7 % (Normal) Range: 11.6-14.6 WBC 7.3 K/mm3 (Normal) Range: 4.4-11.0 :45 TESTICULAR Radiology Report See Note (Normal) Comments: Exam Number: [id number] TESTICULAR ULTRASOUND HISTORYTesticular swelling. High resolution real time linear images were obtained. There aremultiple cystic structures identified within the scr otum in this patient. Testicular cysts can be either benign or malignant. Findings which are worrisome include irregular wall, internal echoes,or septation. A palpable cyst is also of concern. Surgicalevaluation is frequently recommended when these characteristics arepresent. In this patient, the right testicle measures 4.2 X 2.5 X 3.9 cm. There are intratesticular cystic areas. The largest measures 8 X 8 X7 mm and has an irregular wall along 1 side. Malignancy is notexcluded. At the superior pole of the right testes, the head of theepididymis cannot be identified in its usual position. Instead therei s a cyst measuring 2 X 1.8 X 2.1 cm. If this cyst arises from theepididymis it is likely benign. However, if the cyst arises from thetesticle then the distinction between benign and malignant isuncert ain. The left testicle measures 6.5 X 3.5 X 4.5 cm which is increased insize. There is a large intratesticular cyst measuring 4.8 X 3.4 X 4.2cm. A cyst of this size is likely palpable and therefore malignancywould not be excluded. As on the right, the head of the epididymiscannot be identified. Instead, at the superior extent of the lefttestes there is a multiloculated cystic mass or group of cy stsmeasuring 1.7 X 2.7 X 2.9 cm. Again it is unknown whether these arisefrom the epididymis or the testicle and the distinction between benignand malignant is also uncertain. On both sides there is clarence dence of dilated lily testes. This is abenign finding. IMPRESSIONThere are intratesticular cysts and there are cysts seen at thesuperior aspect of both testicles. It is uncertain whether thesuperio rly located cyst arise from the epididymis or the testicle. Malignancy has not been excluded. Reported By: MAYELIN DE LA FUENTE M.D. [id number] HIP, MIN 2 VIEWS Radiology Report See Note (Normal) Comments: Exam Number: [id number] FIVE VIEW LUMBAR SPINE AP, LATERAL, BOTH OBLIQUES AND CONED DOWN L5-S1 HISTORYBack pain radiating down both legs. Pedicles are intact. What is seen of the SI joints is unremark able. No fractures are seen. There is mild disc space narrowing between L1and L2 and between L2 and L3. There is mild spur formation at theselevels. This was seen on previous study of January 12 and isprobably unchanged. If patient persists in being symptomatic, MR scanis suggested to evaluate possible nerve root irritation. IMPRESSIONMild disc disease, see above. TWO VIEWS LEFT HIP AP AND LATERAL HISTORYPain. Hip space is well maintained. There is mild eburnation on thesuperior articulating aspect of the hip. No fracture is noted. Softtissues are unremarkable. IMPRESSIONMild degener ative changes. TWO VIEWS RIGHT HIP AP AND LATERAL HISTORYPain. There is mild eburnation on the superior articulating aspect of thehip. Hip space is well maintained. No fracture is noted. Softtissues appear normal. IMPRESSIONMild degenerative changes. Reported By: REMIGIO PURCELL M.D. [id number] L/S SPINE,MIN 4 VIEWS Radiology Report See Note (Normal) Comments: Exam Number: [id number] FIVE VIEW LUMBAR SPINE AP, LATERAL, BOTH OBLIQUES AND CONED DOWN L5-S1 HISTORYBack pain radiating down both legs. Pedicles are intact. What is seen of the SI joints is unremark able. No fractures are seen. There is mild disc space narrowing between L1and L2 and between L2 and L3. There is mild spur formation at theselevels. This was seen on previous study of January 12 and isprobably unchanged. If patient persists in being symptomatic, MR scanis suggested to evaluate possible nerve root irritation. IMPRESSIONMild disc disease, see above. TWO VIEWS LEFT HIP AP AND LATERAL HISTORYPain. Hip space is well maintained. There is mild eburnation on thesuperior articulating aspect of the hip. No fracture is noted. Softtissues are unremarkable. IMPRESSIONMild degener ative changes. TWO VIEWS RIGHT HIP AP AND LATERAL HISTORYPain. There is mild eburnation on the superior articulating aspect of thehip. Hip space is well maintained. No fracture is noted. Softtissues appear normal. IMPRESSIONMild degenerative changes. Reported By: REMIGIO PURCELL M.D. 7-Aut-[id number] HIP, MIN 2 VIEWS Radiology Report See Note (Normal) Comments: Exam Number: [id number] FIVE VIEW LUMBAR SPINE AP, LATERAL, BOTH OBLIQUES AND CONED DOWN L5-S1 HISTORYBack pain radiating down both legs. Pedicles are intact. What is seen of the SI joints is unremark able. No fractures are seen. There is mild disc space narrowing between L1and L2 and between L2 and L3. There is mild spur formation at theselevels. This was seen on previous study of January 12 and isprobably unchanged. If patient persists in being symptomatic, MR scanis suggested to evaluate possible nerve root irritation. IMPRESSIONMild disc disease, see above. TWO VIEWS LEFT HIP AP AND LATERAL HISTORYPain. Hip space is well maintained. There is mild eburnation on thesuperior articulating aspect of the hip. No fracture is noted. Softtissues are unremarkable. IMPRESSIONMild degener ative changes. TWO VIEWS RIGHT HIP AP AND LATERAL HISTORYPain. There is mild eburnation on the superior articulating aspect of thehip. Hip space is well maintained. No fracture is noted. Softtissues appear normal. IMPRESSIONMild degenerative changes. Reported By: REMIGIO PURCELL M.D. :43 CHEST, PA AND LATERAL Radiology Report See Note (Normal) Comments: Exam Number: [id number] PA AND LATERAL CHEST HISTORYShortness of breath. COMPARISONJun2005. The heart, aorta and mediastinum are unchanged from the previous studyand are within normal limits. No p neumothorax, congestion oreffusions. No nodules, masses or consolidations are identified. There is minimal spurring in the mid thoracic spine and evidence ofbone anchors in the right femoral head. IM PRESSIONNo active disease. No change from the previous study of August 15, 2005. Reported By: EDVIN MARIE M.D. 89-Uow-[id number]:25 ALDOLASE 2030 3.0 U/L (Normal) Range: 1.2-7.6 Comments: Performed At: [facility] [place], [place] [id number] 52-Lod-087400:25 JOHN-D [id number] JOHN-DIRECT 46 U/mL (Normal) Range: 0-99 Comments: Negative <100 Equivocal 100 - 120 Positive >120 08-Lsp-241485:25 C-REACTIVE PROT 1.07 mg/L (Normal) Range: 0.0-6.0 Comments: Test performed using the Dimension C-Reactive ProteinExtended Range assay method. This assay meets the AHA/CDC 2003 recommendations fordetermining patients at high risk for cardiovasculardisease. Reference: High risk CRP >3.0 mg/L [id number]-Qnc-815189:25 CBCD BASO% 0.4 % (Normal) Range: 0-1 EO% 3.0 % (Normal) Range: 0-5 HCT 39.5 % (Abnormal) Range: 40-54 HGB 13.6 g/dL (Abnormal) Range: 14.0-18.0 LY% 23.9 % (Normal) Range: 19-41 MCH 32.3 pg (Abnormal) Range: 27.0-32.0 MCHC 34.6 g/dL (Normal) Range: 32-36 MCV 93.3 fL (Normal) Range: 80-94 MONO% 5.5 % (Normal) Range: 0-10 MPV 6.5 fL (Normal) Range: 6.5-12.0 NEUT% 67.2 % (Normal) Range: 47-70 PLT 244 K/mm3 (Normal) Range: 150-450 RBC 4.23 {M/mm3} (Abnormal) Range: 4.6-6.2 RDW 12.5 % (Normal) Range: 11.6-14.6 WBC 6.9 K/mm3 (Normal) Range: 4.4-11.0 :25 COMP METABOLIC A/G 1.2 {RATIO} (Normal) Range: 0.9-2.4 ALB 3.9 g/dL (Normal) Range: 3.4-5.0 ALK P 47 U/L (Abnormal) Range: 50-136 ALT 38 [iU]/L (Normal) Range: 30-65 AST 19 U/L (Normal) Range: 15-37 BUN 12 mg/dL (Normal) Range: 7-18 BUN/CRE 13.3 {RATIO} (Normal) Range: 10-20 CA 8.7 mg/dL (Normal) Range: 8.5-10.1 CL 100 mmol/L (Normal) Range: 98-107 CO2 30.3 mmol/L (Abnormal) Range: 22.0-29.0 CREAT,SERUM 0.9 mg/dL (Normal) Range: 0.8-1.3 GAP 6 (Normal) Range: 5-15 GLOB 3.2 g/dL (Normal) Range: 2.3-3.5 GLU 84 mg/dL (Normal) Range: 70-110 K 4.1 mmol/L (Normal) Range: 3.5-5.1 NA 136 mmol/L (Normal) Range: 136-145 T BILI 0.63 mg/dL (Normal) Range: 0.00-1.00 T PROT 7.1 g/dL (Normal) Range: 6.4-8.2 :25 CPK TOTAL 172 U/L (Normal) Range: 35-232 :25 ESR SED RATE 13 mm/h (Normal) Range: 0-20 :25 RA LATEX 6502 5.2 {IU/mL} (Normal) Range: 0.0-13.9 :25 TSH 1.24 {uIU/mL} (Normal) Range: 0.34-4.82 Plan of Care Name Dates Details Instructions Hypertension, benign : Eprescribed prescriptions (G8553) Indication: Hypertension, benign Diplopia : Eprescribed prescriptions (G8553) Indication: Diplopia BMI 40.0-44.9, adult : Eprescribed prescriptions (G8553) Indication: BMI 40.0-44.9, adult Acute bronchitis : Eprescribed prescriptions (G8553) Indication: Acute bronchitis Non-smoker : Eprescribed prescriptions (G8553) Indication: Non-smoker Non-smoker : Eprescribed prescriptions (G8553) Indication: Non-smoker Abnormal lung sounds : Follow up in 2 days Indication: Abnormal lung sounds Non-smoker : Eprescribed prescriptions (G8553) Indication: Non-smoker Anxiety and depression : Eprescribed prescriptions (G8553) Indication: Anxiety and depression Moderate persistent asthma without complication : Eprescribed prescriptions (G8553) Indication: Moderate persistent asthma without complication Other hyperlipidemia : Diet, Exercise, and Wt loss Indication: Other hyperlipidemia Anxiety and depression : Eprescribed prescriptions (G8553) Indication: Anxiety and depression Moderate persistent asthma without complication : Eprescribed prescriptions (G8553) Indication: Moderate persistent asthma without complication [facility] Physical : Eprescribed prescriptions (G8553) Indication: [facility] Physical Other hyperlipidemia : Eprescribed prescriptions (G8553) Indication: Other hyperlipidemia Other hyperlipidemia : Diet, Exercise, and Wt loss Indication: Other hyperlipidemia Abnormal glucose tolerance test : Diet, Exercise, and Wt loss Indication: Abnormal glucose tolerance test Allergic rhinitis : Eprescribed prescriptions (G8553) Indication: Allergic rhinitis Moderate persistent asthma with acute exacerbation : Follow up if no improvement or if symptoms worsen Indication: Moderate persistent asthma with acute exacerbation Cough : Eprescribed prescriptions (G8553) Indication: Cough Other hyperlipidemia : Eprescribed prescriptions (G8553) Indication: Other hyperlipidemia Unspecified osteoarthritis, unspecified site : Eprescribed prescriptions (G8553) Indication: Unspecified osteoarthritis, unspecified site Abnormal glucose tolerance test : Eprescribed prescriptions (G8553) Indication: Abnormal glucose tolerance test Cough : Eprescribed prescriptions (G8553) Indication: Cough Dysthymic disorder : Eprescribed prescriptions (G8553) Indication: Dysthymic disorder Essential hypertension : Eprescribed prescriptions (G8553) Indication: Essential hypertension Muscle weakness : Eprescribed prescriptions (G8553) Indication: Muscle weakness Wheezing : Follow up if no improvement or if symptoms worsen Indication: Wheezing BRONCHITIS, NOT SPECIFIED ACUTE OR CHRONIC (490.) : *URI Treatment Indication: BRONCHITIS, NOT SPECIFIED ACUTE OR CHRONIC (490.) BRONCHITIS, NOT SPECIFIED ACUTE OR CHRONIC (490.) : *URI Symptoms Indication: BRONCHITIS, NOT SPECIFIED ACUTE OR CHRONIC (490.) Cough : Eprescribed prescriptions (G8553) Indication: Cough Dysuria : Eprescribed prescriptions (G8553) Indication: Dysuria Dysthymic disorder : Eprescribed prescriptions (G8553) Indication: Dysthymic disorder Dysuria : Eprescribed prescriptions (G8553) Indication: Dysuria Abnormal glucose tolerance test : Diet, Exercise, and Wt loss Indication: Abnormal glucose tolerance test Moderate persistent asthma without complication : Follow up if no improvement or if symptoms worsen Indication: Moderate persistent asthma without complication Wheezing : Follow up if no improvement or if symptoms worsen Indication: Wheezing BRONCHITIS, NOT SPECIFIED ACUTE OR CHRONIC (490.) : *URI Treatment Indication: BRONCHITIS, NOT SPECIFIED ACUTE OR CHRONIC (490.) BRONCHITIS, NOT SPECIFIED ACUTE OR CHRONIC (490.) : *URI Symptoms Indication: BRONCHITIS, NOT SPECIFIED ACUTE OR CHRONIC (490.) BRONCHITIS, NOT SPECIFIED ACUTE OR CHRONIC (490.) : *Antibiotic Usage Education - Female Indication: BRONCHITIS, NOT SPECIFIED ACUTE OR CHRONIC (490.) Abnormal glucose tolerance test : Diet, Exercise, and Wt loss Indication: Abnormal glucose tolerance test Bronchitis, acute : Follow up if no improvement or if symptoms worsen Indication: Bronchitis, acute Cough : Follow up if no improvement or if symptoms worsen Indication: Cough Cerumen impaction : Follow up if no improvement or if symptoms worsen Indication: Cerumen impaction Gastroesophageal reflux disease without esophagitis : Heartburn *: gerd Indication: Gastroesophageal reflux disease without esophagitis Acute sinusitis, unspecified : *Antibiotic Usage Education - Male Indication: Acute sinusitis, unspecified Dysthymic disorder : Depression: Brief Version *: depression Indication: Dysthymic disorder Cough : Cough: cough Indication: Cough Abnormal glucose tolerance test : Diabetes and Illness: diabetes Indication: Abnormal glucose tolerance test Enlarged prostate with lower urinary tract symptoms : Prostate Specific Antigen Screening *: prostate gland Indication: Enlarged prostate with lower urinary tract symptoms PNEUMONIA D/T STREPTOCOCCUS GROUP A : Reviewed Diagnostic Tests Indication: PNEUMONIA D/T STREPTOCOCCUS GROUP A PNEUMONIA D/T STREPTOCOCCUS GROUP A : Reviewed Lab Indication: PNEUMONIA D/T STREPTOCOCCUS GROUP A Acute sinusitis, unspecified : *Antibiotic Usage Education - Male Indication: Acute sinusitis, unspecified Pharyngitis, acute : Sore throat: diagnosis and treatment Indication: Pharyngitis, acute Bronchitis, acute : *Antibiotic Usage Education - Male Indication: Bronchitis, acute BRONCHITIS, NOT SPECIFIED ACUTE OR CHRONIC (490.) : *URI Treatment Indication: BRONCHITIS, NOT SPECIFIED ACUTE OR CHRONIC (490.) BRONCHITIS, NOT SPECIFIED ACUTE OR CHRONIC (490.) : *URI Symptoms Indication: BRONCHITIS, NOT SPECIFIED ACUTE OR CHRONIC (490.) BRONCHITIS, NOT SPECIFIED ACUTE OR CHRONIC (490.) : *Antibiotic Usage Education - Female Indication: BRONCHITIS, NOT SPECIFIED ACUTE OR CHRONIC (490.) Other hyperlipidemia : Diet, Exercise, and Wt loss Indication: Other hyperlipidemia Abnormal glucose tolerance test : Diet, Exercise, and Wt loss Indication: Abnormal glucose tolerance test Abnormal glucose tolerance test : *Diabetes Education Indication: Abnormal glucose tolerance test Abnormal glucose tolerance test : Diet, Exercise, and Wt loss Indication: Abnormal glucose tolerance test Acute sinusitis, unspecified : *URI Treatment Indication: Acute sinusitis, unspecified Acute sinusitis, unspecified : Antibiotic Usage Education - Male Indication: Acute sinusitis, unspecified Acute sinusitis, unspecified : URI Symptoms Indication: Acute sinusitis, unspecified Diet, Exercise, and Wt loss tongue burning : Antibiotic Usage Education - Male Indication: tongue burning Bronchitis, acute : Antibiotic Usage Education - Male Indication: Bronchitis, acute Pharyngitis, acute : *URI Treatment Indication: Pharyngitis, acute Benign prostatic hyperplasia with lower urinary tract symptoms, unspecified morphology : FOLLOW UP - MAKE APPT AFTER DIAGNOSTIC TESTS Indication: Benign prostatic hyperplasia with lower urinary tract symptoms, unspecified morphology Planned Observations CBC W/AUTO DIFF WBC (75367)Indication: Hypertension, benign On: :51 Request METABOLIC PANEL, COMPREHENSIVE (33197)Indication: Hypertension, benign On: :51 Request LIPID PANEL (03245)Indication: Other hyperlipidemia On: :50 Request CULTURE,FUNGUS W/STAIN [id number] (49570)Indication: Bronchiectasis On: :59 Request CULTURE, SPUTUM (06614)Indication: Moderate persistent asthma without complication On: :21 Request HGB A1C (07497)Indication: Abnormal glucose tolerance test On: :10 Request CBC with auto diff (96650)Indication: Abnormal glucose tolerance test On: :10 Request METABOLIC PANEL, COMPREHENSIVE (89383)Indication: Abnormal glucose tolerance test On: :10 Request LIPID PANEL (77892)Indication: Other hyperlipidemia On: :10 Request PSA (PROSTATE SPECIFIC ANTIGEN) (V76.44)Indication: Encounter for screening for malignant neoplasm of prostate (Renamed from Screening for prostate cancer) On: :09 Request METABOLIC PANEL, COMPREHENSIVE (28402)Indication: Essential hypertension On: 9-Jhd-451502:58 Request CBC with auto diff (74171)Indication: Hypertension, benign On: :53 Request METABOLIC PANEL, COMPREHENSIVE (78513)Indication: Abnormal glucose tolerance test On: :52 Request MICROALBUMIN: CREATININE RATIO (54037) AND (56685)Indication: Abnormal glucose tolerance test On: :52 Request HGB A1C (41099)Indication: Abnormal glucose tolerance test On: :52 Request LIPID PANEL (18972)Indication: Other hyperlipidemia On: :52 Request LIPID PANEL (27998)Indication: Other hyperlipidemia On: 5-Hkq-460753:30 Request CBC W/AUTO DIFF WBC (31246)Indication: Hypertension, benign On: :29 Request METABOLIC PANEL, COMPREHENSIVE (72577)Indication: Hypertension, benign On: :29 Request IMMUNOGLOBULIN G (IgG) (62461)Indication: Abnormal blood chemistry On: :02 Request Comments: PLEASE DRAW WITH OTHER LABS IN 2016 serum free light chains (20550)Indication: Abnormal blood chemistry On: :40 Request serum immunofixation (08297)Indication: Abnormal blood chemistry On: :40 Request PSA (PROSTATE SPECIFIC ANTIGEN) (V76.44)Indication: Encounter for screening for malignant neoplasm of prostate (Renamed from Screening for prostate cancer) On: :40 Request LIPID PANEL (33104)Indication: Other hyperlipidemia On: Request CBC with auto diff (09366)Indication: Abnormal glucose tolerance test On: :39 Request METABOLIC PANEL, COMPREHENSIVE (14056)Indication: Abnormal glucose tolerance test On: :39 Request MICROALBUMIN: CREATININE RATIO (98755) AND (80604)Indication: Abnormal glucose tolerance test On: :39 Request HGB A1C (91725)Indication: Abnormal glucose tolerance test On: :39 Request LIPID PANEL (68242)Indication: Other hyperlipidemia On: 9-Lrh-474732:58 Request urine immunofixation (66207)Indication: Abnormal blood chemistry On: :34 Request serum immunofixation (22780)Indication: Abnormal blood chemistry On: :34 Request MICROALBUMIN: CREATININE RATIO (19966) AND (89073)Indication: Abnormal glucose tolerance test On: :32 Request HGB A1C (48230)Indication: Abnormal glucose tolerance test On: :32 Request CBC W/AUTO DIFF WBC (18523)Indication: Hypertension, benign On: :30 Request METABOLIC PANEL, COMPREHENSIVE (97028)Indication: Hypertension, benign On: :30 Request LIPID PANEL (75579)Indication: Other hyperlipidemia On: :30 Request LIPOPROTEIN, BLD, BY NMR (11628)Indication: Other hyperlipidemia On: :14 Request CBC WITH MANUAL DIFF (18093)Indication: Essential hypertension On: 41-Fmf-893217:14 Request Metabolic Panel, Comprehensive (51381)Indication: Essential hypertension On: :14 Request CBC W/AUTO DIFF WBC (67581)Indication: Abnormal glucose tolerance test On: : Request LIPOPROTEIN, BLD, BY NMR (77121)Indication: Other hyperlipidemia On: : Request METABOLIC PANEL, COMPREHENSIVE (34247)Indication: Abnormal glucose tolerance test On: : Request Anti-TPO Antibody (14653)Indication: Abnormal blood chemistry On: :57 Request T4, FREE (THYROXINE) (89662)Indication: Abnormal blood chemistry On: : Request T3, FREE (TRIDOTHYRONINE) (87429)Indication: Abnormal blood chemistry On: :57 Request TSH (19142)Indication: Abnormal blood chemistry On: :56 Request P-ANCA & C-ANCA (ANCA PROFILE) 87628 x2 and 92744 [id number]: Acute recurrent maxillary sinusitis On: :26 Request JOHN (ANTINUCLEAR ANTIBODY) (77163)Indication: Abnormal blood chemistry On: :56 Request RHEUMATOID FACTOR-QUANT (28186)Indication: Abnormal blood chemistry On: :56 Request SED RATE ERYTHROCYTE (25317)Indication: Abnormal blood chemistry On: :56 Request C-REACTIVE PROTEIN (59034)Indication: Abnormal blood chemistry On: :56 Request CBC with auto diff (63851)Indication: Hypertension, benign On: :10 Request MICROALBUMIN: CREATININE RATIO (90212) AND (06792)Indication: Abnormal glucose tolerance test On: : Request METABOLIC PANEL, COMPREHENSIVE (43716)Indication: Abnormal glucose tolerance test On: : Request HGB A1C (73673)Indication: Abnormal glucose tolerance test On: : Request METABOLIC PANEL, COMPREHENSIVE (44719)Indication: Hypertension, benign On: : Request LIPID PANEL (64123)Indication: Other hyperlipidemia On: : Request PSA (PROSTATE SPECIFIC ANTIGEN) (V76.44)Indication: Encounter for screening for malignant neoplasm of prostate (Renamed from Screening for prostate cancer) On: 94-Wgz-432086:59 Request Factor 2 (Prothrombin) Gene Mutation (44532)Indication: Other symptoms involving cardiovascular system On: 1-Vxf-131498:13 Request MICROALBUMIN: CREATININE RATIO (21999) AND (57380)Indication: Abnormal glucose tolerance test On: :53 Request HGB A1C (91186)Indication: Abnormal glucose tolerance test On: :53 Request LIPID PANEL (99185)Indication: Other hyperlipidemia On: :53 Request CBC W/AUTO DIFF WBC (96072)Indication: Hypertension, benign On: :53 Request METABOLIC PANEL, COMPREHENSIVE (80138)Indication: Hypertension, benign On: :53 Request CBC with auto diff (29329)Indication: Hypertension, benign On: 9-Nwq-989799:25 Request METABOLIC PANEL, COMPREHENSIVE (11267)Indication: Hypertension, benign On: :25 Request LIPID PANEL (69784)Indication: Other hyperlipidemia On: 1-Gey-852756:25 Request Factor V Leiden (54573)Indication: Deep vein thrombosis of lower extremity On: :24 Request CLOTTING FACTOR II (46131)Indication: Deep vein thrombosis of lower extremity On: :24 Request ANTITHROMBIN III ACTIVTY (47687)Indication: Deep vein thrombosis of lower extremity On: :24 Request Antiphospholipid atb (54128)Indication: Deep vein thrombosis of lower extremity On: :24 Request Protein C Profile (34714)Indication: Deep vein thrombosis of lower extremity On: :24 Request Protein S Profile (27180)Indication: Deep vein thrombosis of lower extremity On: :24 Request Hemoglobin Glyclated (HGB A1C) (49557)Indication: Abnormal glucose tolerance test On: :23 Request CBC W/AUTO DIFF WBC (99299)Indication: Abnormal glucose tolerance test On: :43 Request MICROALBUMIN: CREATININE RATIO (40246) AND (56979)Indication: Abnormal glucose tolerance test On: :43 Request METABOLIC PANEL, COMPREHENSIVE (94018)Indication: Abnormal glucose tolerance test On: Request LIPID PANEL (12494)Indication: Other hyperlipidemia On: Request DNA ANTIBODY-NATV/DBL ST (31788)Indication: Heart disease, unspecified On: : Request METABOLIC PANEL, COMPREHENSIVE (33195)Indication: Essential hypertension On: : Request LIPID PANEL (84695)Indication: Other hyperlipidemia On: :31 Request Hemoglobin Glyclated (HGB A1C) (85754)Indication: Abnormal glucose tolerance test On: : Request PSA (PROSTATE SPECIFIC ANTIGEN) (V76.44)Indication: Benign prostatic hyperplasia with lower urinary tract symptoms, unspecified morphology On: :52 Request MICROALBUMIN: CREATININE RATIO (43067) AND (75274)Indication: Abnormal glucose tolerance test On: :50 Request Hemoglobin Glyclated (HGB A1C) (69239)Indication: Abnormal glucose tolerance test On: :50 Request URINE WARREN CULTURE (MASSIEL COL COUNT) (93903)Indication: Muscle weakness On: 48 Request URINALYSIS, W/ MICRO (41713)Indication: Muscle weakness On: :48 Request CBC with auto diff (36623)Indication: Muscle weakness On: :48 Request JOHN (ANTINUCLEAR ANTIBODY) (83233)Indication: Muscle weakness On: :48 Request SED RATE ERYTHROCYTE (63699)Indication: Muscle weakness On: :48 Request C-REACTIVE PROTEIN (38088)Indication: Muscle weakness On: 48 Request TSH (39990)Indication: Muscle weakness On: 10-Rda-901919:48 Request LIPID PANEL (67602)Indication: Other hyperlipidemia On: 65-Sfk-822978:47 Request METABOLIC PANEL, COMPREHENSIVE (16826)Indication: Other hyperlipidemia On: :46 Request URINE WARREN CULTURE-MASSIEL COL COUNT (99601)Indication: Other abnormal finding of urine On: 0-Uut-332779:42 Request LIPID PANEL (17505)Indication: Other hyperlipidemia On: :44 Request CBC W/AUTO DIFF WBC (17294)Indication: Essential hypertension On: :44 Request METABOLIC PANEL, COMPREHENSIVE (95938)Indication: Essential hypertension On: :44 Request URINE WARREN CULTURE-MASSIEL COL COUNT (84445)Indication: Other abnormal finding of urine On: 1-Ojj-773242:00 Request Comments: ADD ON MICROALBUMIN: CREATININE RATIO (74831) AND (88056)Indication: Essential hypertension On: :02 Request URINALYSIS, W/ MICRO (47265)Indication: Essential hypertension On: 5-Bql-312473:02 Request METABOLIC PANEL, COMPREHENSIVE (83200)Indication: Essential hypertension On: 9-Wgv-754168:02 Request LIPID PANEL (12808)Indication: Other hyperlipidemia On: 7-Gmp-126299:02 Request CBC WITH MANUAL DIFF (59164)Indication: Iron deficiency On: 4-Dub-683512:02 Request URINE WARREN CULTURE (MASSIEL COL COUNT) (69694)Indication: Fatigue On: 25-Atk-226738:46 Request MICROALBUMIN: CREATININE RATIO (19554) AND (39598)Indication: Abnormal glucose tolerance test On: 69-Nxo-125526:46 Request Hemoglobin Glyclated (HGB A1C) (18042)Indication: Abnormal glucose tolerance test On: 07-Mzq-169929:46 Request IRON BINDING CAPACITY (TIBC) (39987)Indication: Anemia, unspecified On: :42 Request FERRITIN (44574)Indication: Anemia, unspecified On: 93-Lmd-214660:42 Request IRON (23088)Indication: Anemia, unspecified On: 05-Ndo-424216:42 Request VITAMIN B-12 (CYANOCOBALAMIN) (60367)Indication: Fatigue On: 33-Hgl-711186:42 Request CBC (AUTO) (19541)Indication: Fatigue On: Request TSH (78938)Indication: Fatigue On: Request Vitamin D Hydroxy (14772)Indication: Fatigue On: Request EBV Panel (52419)Indication: Fatigue On: Request FERRITIN (00176)Indication: Anemia, unspecified On: Request IRON (00206)Indication: Anemia, unspecified On: Request MICROALBUMIN: CREATININE RATIO (38013) AND (07437)Indication: Abnormal glucose tolerance test On: Request METABOLIC PANEL, COMPREHENSIVE (20299)Indication: Abnormal glucose tolerance test On: Request LIPID PANEL (77257)Indication: Other hyperlipidemia On: Request CBC WITH MANUAL DIFF (56940)Indication: Anemia, unspecified On: Request FERRITIN (28776)Indication: Anemia, unspecified On: :15 Request IRON (72734)Indication: Anemia, unspecified On: Request LIPID PANEL (57942)Indication: Essential hypertension On: Request METABOLIC PANEL, COMPREHENSIVE (64556)Indication: Essential hypertension On: : Request CBC WITH MANUAL DIFF (19576)Indication: Essential hypertension On: Request UPEP (05415)Indication: BRONCHITIS, NOT SPECIFIED ACUTE OR CHRONIC (490.) On: Request Protein Electrophoresis, Serum (SPEP) (68934)Indication: BRONCHITIS, NOT SPECIFIED ACUTE OR CHRONIC (490.) On: Request IGA/IGD/IGG/IGM-EACH (31234)Indication: BRONCHITIS, NOT SPECIFIED ACUTE OR CHRONIC (490.) On: Request URINALYSIS, W/ MICRO (52896)Indication: Anemia, unspecified On: Request CBC WITH MANUAL DIFF (19434)Indication: Anemia, unspecified On: : Request FOLIC ACID SERUM (19870)Indication: Anemia, unspecified On: Request VITAMIN B-12 (CYANOCOBALAMIN) (90751)Indication: Anemia, unspecified On: : Request RETICULOCYTE COUNT MANUL (51703)Indication: Anemia, unspecified On: Request LDH (LD) (LACTATE DEHYDROGENASE) (42491)Indication: Anemia, unspecified On: Request IRON BINDING CAPACITY (TIBC) (38853)Indication: Anemia, unspecified On: Request IRON (41307)Indication: Anemia, unspecified On: Request FERRITIN (22039)Indication: Anemia, unspecified On: Request PSA (PROSTATE SPECIFIC ANTIGEN) (V76.44)Indication: Screening for prostate cancer On: :36 Request LIPID PANEL (39599)Indication: Abnormal glucose tolerance test On: :35 Request CBC WITH MANUAL DIFF (60456)Indication: Hypertension, benign On: 35 Request METABOLIC PANEL, COMPREHENSIVE (28938)Indication: Hypertension, benign On: 35 Request SED RATE ERYTHROCYTE (41083)Indication: Rash On: :22 Request C-REACTIVE PROTEIN ([id number])Indication: Rash On: :22 Request RHEUMATOID FACTOR-QUANT ([id number])Indication: Rash On: :22 Request JOHN (ANTINUCLEAR ANTIBODY) ([id number])Indication: Rash On: 44-Vzr-041675:22 Request CULTURE, SPUTUM ([id number])Indication: Cough On: 00-Cbj-627521:20 Request HgA1C , Office ([id number])Indication: Abnormal glucose tolerance test On: 92-Rpo-296629:57 Request CULTURE, SPUTUM ([id number])Indication: Cough On: 64-Wcw-608272:39 Request ACID FAST STAIN (AFB) ([id number])Indication: Cough On: 38-Gqw-067056:38 Request TSH ([id number])Indication: Other hyperlipidemia On: : Request URINALYSIS, W/ MICRO ([id number])Indication: Essential hypertension On: :21 Request CBC WITH MANUAL DIFF ([id number])Indication: Abnormal glucose tolerance test On: :21 Request METABOLIC PANEL, COMPREHENSIVE ([id number])Indication: Abnormal glucose tolerance test On: :21 Request MICROALBUMIN: CREATININE RATIO ([id number]) AND ([id number])Indication: Abnormal glucose tolerance test On: :21 Request LIPID PANEL ([id number])Indication: Other hyperlipidemia On: :20 Request CBC WITH MANUAL DIFF ([id number])Indication: Abnormal glucose tolerance test On: : Request METABOLIC PANEL, COMPREHENSIVE ([id number])Indication: Abnormal glucose tolerance test On: 15-Mdt-041932:26 Request CULTURE, SPUTUM ([id number])Indication: Cough On: 09-Hxp-568891:18 Request LIPID PANEL ([id number])Indication: Other hyperlipidemia On: 72-Qzu-939108:14 Request TSH ([id number])Indication: Swelling of limb On: 23-Zhk-95415:58 Request METABOLIC PANEL, COMPREHENSIVE ([id number])Indication: Swelling of limb On: :58 Request CBC WITH MANUAL DIFF ([id number])Indication: Swelling of limb On: :58 Request BNTP ([id number])Indication: Swelling of limb On: :58 Request CULTURE, SPUTUM ([id number])Indication: Cough On: :56 Request PSA (PROSTATE SPECIFIC ANTIGEN) (V76.44)Indication: Screening for prostate cancer On: 27-Iin-807952:19 Request URINALYSIS, W/ MICRO ([id number])Indication: Abnormal glucose tolerance test On: 72-Jkq-392058:18 Request MICROALBUMIN: CREATININE RATIO ([id number]) AND ([id number])Indication: Abnormal glucose tolerance test On: 39-Mbm-034023:18 Request METABOLIC PANEL, COMPREHENSIVE ([id number])Indication: Essential hypertension On: 40-Xqz-577894:18 Request LIPID PANEL ([id number])Indication: Other hyperlipidemia On: 16-Rpa-339383:18 Request PSA (PROSTATE SPECIFIC ANTIGEN) (V76.44)Indication: Screening for prostate cancer On: :40 Request MICROALBUMIN: CREATININE RATIO ([id number]) AND ([id number])Indication: Abnormal glucose tolerance test On: :40 Request METABOLIC PANEL, COMPREHENSIVE ([id number])Indication: Abnormal glucose tolerance test On: :40 Request Urine Protein Electrophoresis (UPEP) ([id number])Indication: recurrent uri On: :39 Request Serum Protein Electrophoresis (SPEP) ([id number])Indication: recurrent uri On: :39 Request IMMUNOGLOBULIN E (IgE) ([id number])Indication: Asthma, intrinsic, with status asthmaticus On: :39 Request IGA/IGD/IGG/IGM-EACH ([id number])Indication: Asthma, intrinsic, with status asthmaticus On: :39 Request LIPID PANEL ([id number])Indication: Other hyperlipidemia On: :38 Request ASPERGILLUS AG, EIA ([id number])Indication: Cough On: :58 Request SED RATE ERYTHROCYTE ([id number])Indication: Cough On: 02-Aqb-100878:48 Request C-REACTIVE PROTEIN ([id number])Indication: Cough On: :48 Request CBC WITH MANUAL DIFF ([id number])Indication: Cough On: 45-Lxz-933004:47 Request Quantiferron gold test ([id number])Indication: Cough On: :45 Request CULTURE, SPUTUM (03554)Indication: Cough On: :45 Request VITAMIN B-12 (CYANOCOBALAMIN) ([id number])Indication: Fatigue On: :20 Request Vitamin D Hydroxy (23131)Indication: Fatigue On: 92-Qfx-106553:20 Request CBC WITH MANUAL DIFF ([id number])Indication: Abnormal glucose tolerance test On: :19 Request METABOLIC PANEL, COMPREHENSIVE ([id number])Indication: Abnormal glucose tolerance test On: :19 Request LIPID PANEL ([id number])Indication: Other hyperlipidemia On: :19 Request URINALYSIS, W/ MICRO ([id number])Indication: Abnormal glucose tolerance test On: :19 Request HEMOGLOBIN GLYCLATED (HGB A1C) ([id number])Indication: Abnormal glucose tolerance test On: :19 Request WARREN CULTURE-OTHER ([id number])Indication: Pharyngitis, acute On: 68-Ikq-217892:05 Request URINE WARREN CULTURE-MASSIEL COL COUNT ([id number])Indication: Abdominal pain, acute, right lower quadrant On: :19 Request CBC WITH MANUAL DIFF ([id number])Indication: Abnormal glucose tolerance test On: :08 Request METABOLIC PANEL, COMPREHENSIVE ([id number])Indication: Abnormal glucose tolerance test On: :08 Request TSH ([id number])Indication: Fatigue On: :02 Request CBC WITH MANUAL DIFF ([id number])Indication: Abnormal glucose tolerance test On: :45 Request METABOLIC PANEL, COMPREHENSIVE ([id number])Indication: Hypertension, benign On: :45 Request LIPID PANEL ([id number])Indication: Other hyperlipidemia On: :45 Request METABOLIC PANEL, COMPREHENSIVE ([id number])Indication: Essential hypertension On: 08-Orr-760730:16 Request LIPID PANEL ([id number])Indication: Other hyperlipidemia On: 79-Fiy-780671:15 Request URINE WARREN CULTURE-MASSIEL COL COUNT ([id number])Indication: Calcium kidney stone On: 56-Dxk-060917:54 Request PSA (PROSTATE SPECIFIC ANTIGEN) (V76.44)Indication: Enlarged prostate with lower urinary tract symptoms On: 55-Qcc-411953:09 Request METABOLIC PANEL, COMPREHENSIVE ([id number])Indication: Abnormal glucose tolerance test On: 03-Iov-055730:09 Request CBC WITH MANUAL DIFF ([id number])Indication: Abnormal glucose tolerance test On: 84-Xtv-357366:09 Request LIPID PANEL ([id number])Indication: Other hyperlipidemia On: 06-Jpa-493225:09 Request MICROALBUMIN: CREATININE RATIO ([id number]) AND ([id number])Indication: Abnormal glucose tolerance test On: 30-Hur-125978:09 Request LIPID PANEL ([id number])Indication: Other hyperlipidemia On: :31 Request CBC WITH MANUAL DIFF ([id number])Indication: Abnormal glucose tolerance test On: :31 Request METABOLIC PANEL, COMPREHENSIVE ([id number])Indication: Abnormal glucose tolerance test On: :30 Request MICROALBUMIN: CREATININE RATIO ([id number]) AND ([id number])Indication: Abnormal glucose tolerance test On: 43-Wiz-565537:28 Request METABOLIC PANEL, COMPREHENSIVE ([id number])Indication: Abnormal glucose tolerance test On: 7-Mll-766680:07 Request LIPID PANEL ([id number])Indication: Other hyperlipidemia On: 1-Nve-966344:07 Request PSA (PROSTATE SPECIFIC ANTIGEN) (V76.44)Indication: Enlarged prostate with lower urinary tract symptoms On: 0-Sjk-380817:49 Request METABOLIC PANEL, COMPREHENSIVE ([id number])Indication: Essential hypertension On: 1-Ezi-824328:48 Request LIPID PANEL ([id number])Indication: Other hyperlipidemia On: :48 Request HEPATIC FUNCTION PANEL ([id number])Indication: Other hyperlipidemia On: :21 Request LIPID PANEL ([id number])Indication: Other hyperlipidemia On: :21 Request CBC WITH MANUAL DIFF ([id number])Indication: Abnormal glucose tolerance test On: :53 Request METABOLIC PANEL, COMPREHENSIVE ([id number])Indication: Abnormal glucose tolerance test On: 8-Bvm-823594:53 Request MICROALBUMIN: CREATININE RATIO ([id number]) AND ([id number])Indication: Abnormal glucose tolerance test On: 4-Pld-871941:53 Request HEPATIC FUNCTION PANEL ([id number])Indication: Other hyperlipidemia On: 3-Twr-896102:53 Request LIPID PANEL ([id number])Indication: Other hyperlipidemia On: 6-Xrh-900463:53 Request GLUCOSE TOLERANCE TEST (GTT) 2 hour On: 0-Dtu-991197:36 Request ([id number]) TSH ([id number])Indication: Dizziness and giddiness On: 02-Bqi-315473:15 Request LIPID PANEL ([id number])Indication: Other hyperlipidemia On: 10-Cps-562897:15 Request CBC WITH MANUAL DIFF ([id number])Indication: Dizziness and giddiness On: 95-Ltv-958737:15 Request METABOLIC PANEL, COMPREHENSIVE ([id number])Indication: Dizziness and giddiness On: 55-Pbn-241771:15 Request HEPATIC FUNCTION PANEL ([id number])Indication: Other hyperlipidemia On: :39 Request LIPID PANEL ([id number])Indication: Other hyperlipidemia On: 00-Cza-922312:39 Request HEPATIC FUNCTION PANEL ([id number])Indication: Other hyperlipidemia On: 13-Lms-549370:31 Request LIPID PANEL ([id number])Indication: Other hyperlipidemia On: 86-Lkk-245019:31 Request WARREN CULTURE-BLOOD ([id number])Indication: fever On: 9-Nef-269535:58 Request METABOLIC PANEL, COMPREHENSIVE ([id number])Indication: fever On: 6-Fss-089207:58 Request CBC WITH MANUAL DIFF ([id number])Indication: fever On: :58 Request WARREN CULTURE-OTHER ([id number])Indication: Pharyngitis, acute On: 15-Aln-007009:35 Request PSA (Prostate Specific Antigen), Screening (14657)Indication: Other hyperlipidemia On: :32 Request LIPID PANEL ([id number])Indication: Other hyperlipidemia On: :31 Request URINALYSIS W/O MICRO (31073)Indication: Hypertension, benign On: :31 Request TSH ([id number])Indication: Hypertension, benign On: :31 Request CBC WITH MANUAL DIFF ([id number])Indication: Hypertension, benign On: :31 Request METABOLIC PANEL, COMPREHENSIVE ([id number])Indication: Hypertension, benign On: :31 Request Creatine Kinase Total ([id number])Indication: Myalgia and myositis On: 7-Ryu-489461:24 Request SED RATE ERYTHROCYTE ([id number])Indication: Arthralgia On: :23 Request C-REACTIVE PROTEIN ([id number])Indication: Arthralgia On: :23 Request RHEUMATOID FACTOR-QUANT ([id number])Indication: Arthralgia On: :23 Request JOHN (ANTINUCLEAR ANTIBODY) ([id number])Indication: Arthralgia On: :23 Request Planned Encounters Medical; [facility] 3 Month FU - On: 21-Mar-2018 8:30 [facility] Fast DO, Adelaida A Fast DO, Adelaida A Planned Procedures PNEUM VAC ADLT/IMUMNOSPR, On: 06-Dec-2017 Intent SBC/INTRM ([id number])By: Flakito ACKREMAN, Comments: lot: [id number]: ite/route: L del/IMamt: 0.5mLVIS signed when applicableEVER Monroy Adelaida A Fast DO, Adelaida A Cartoid DopplerBy: Fast DO, Adelaida On: 06-Sep-2017 Intent A Fast DO, Adelaida A Radiology - Lumbar SpineBy: Fast On: 06-Jun-2017 Intent DO, Adelaida A Fast DO, Adelaida A ELECTROCARDIOGRAM, COMPLETE (ECG) On: 06-Jun-2017 Intent ([id number])By: Fast DO, Adelaida A Fast Comments: ekg showed normal sinus rhythym, normal axis, no acute st/t wave changes rbbb no change DO, Adelaida A CT - Chest (Without Contrast)By: On: 11-Feb-2017 Intent Fast DO, Adelaida A Fast DO, Adelaida A Comments: high resolution ct of chest rule out interstitial lung disease Radiology - Ankle - LeftBy: Fast On: 11-Feb-2017 Intent DO, Adelaida A Fast DO, Adelaida A Comments: proabable spur Radiology - ChestBy: Fast DO, On: 19-Jan-2017 Intent Adelaida A Fast DO, Adelaida A Comments: PA & LAT CHEST XRAY, PA & LATERAL On: 18-Jan-2017 Intent ([id number])By: Yola Witt Aerosol Treatment ([id number])By: On: 18-Jan-2017 Intent Yola Witt Solu -Medrol Injection, 125 mg On: 18-Jan-2017 Intent ([id number])By: Yola Witt Comments: solumedrol 125mg injectionlot: [id number]: 12/2018L GMpt tolerated wellAD 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 ELECTROCARDIOGRAM, COMPLETE (ECG) On: 05-Jan-2016 Intent ([id number])By: Flakito ACKERMAN Adelaida A Flakito Comments: ekg showed normal sinus rhythym, normal axis, no acute st/t wave changes irbb DO, Adelaida A Solu -Medrol Injection, 125 mg On: 09-May-2015 Intent ([id number])By: Samantha Grewal CNP Comments: lot: [id number]: ite/route:RGM/IMamt: 2mLVIS signed when applicableEVER Dumont Aerosol Treatment ([id number])By: On: 09-May-2015 Intent Slarb TRAVEL 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, Tracey Radiology - Chest- PA and LatBy: On: 11-Apr-2015 Intent Fast DO, Adelaida A Fast DO, Adelaida A Comments: stat Radiology - Lumbar SpineBy: Fast On: 11-Apr-2015 Intent DO, Adelaida A Fast DO, Adelaida A Radiology - Hip - LeftBy: Fast On: 11-Apr-2015 Intent DO, Adelaida A Fast DO, Adelaida A Comments: weight bearing Doppler Ultrasound OtherBy: Fast On: 23-Sep-2014 Intent DO, Adelaida A Fast DO, Adelaida A Comments: end september right leg Radiology - Chest- PA and LatBy: On: 26-Aug-2014 Intent Fast DO, Adelaida A Fast DO, Adelaida A Pulse Oximetry ([id number])By: Fast On: 26-Aug-2014 Intent DO, Adelaida A Fast DO, Adelaida A Comments: 94%- recheck 95 Aerosol Treatment ([id number])By: On: 10-Apr-2014 Intent Tracey Young LPN Eprescribed prescriptions On: 25-Jul-2013 Intent ([id number])By: Fast DO, Adelaida A Fast DO, Adleaida A Pulse Oximetry ([id number])By: Fast On: 02-Jul-2013 Intent DO, Adelaida A Fast DO, Adelaida A Comments: 97% Aerosol Treatment ([id number])By: On: 25-Jun-2013 Intent Samantha Grewal CNP Eprescribed prescriptions On: 25-Jun-2013 Intent ([id number])By: Samantha Grewal CNP Eprescribed prescriptions On: 02-Apr-2013 Intent (G8553)By: Leigh Ann Polk Aerosol Treatment ([id number])By: On: 26-Mar-2013 Intent Samantha Grewal CNP Eprescribed prescriptions On: 26-Mar-2013 Intent ([id number])By: Eliana Carter Eprescribed prescriptions On: 25-Dec-2012 Intent (G8553)By: Leigh Ann Polk Aerosol Treatment ([id number])By: On: 06-Nov-2012 Intent Samantha Grewal CNP Eprescribed prescriptions On: 06-Nov-2012 Intent (G8553)By: Eliana Carter Ear Irrigation ([id number])By: Carmina On: 25-Sep-2012 Intent Samantha IRVIN Comments: Ear Irrigation performed on:bilateralAmount/color removed cerumen:large amount of dark brown wax removedOUtcome:clear, pt toleratedUsed wax curettes Wax CurettesBy: Carmina IRVINSamantha On: 25-Sep-2012 Intent Eprescribed prescriptions On: 22-Sep-2012 Intent ([id number])By: Elizabet Green DO Eprescribed prescriptions On: 02-Aug-2012 Intent (G8553)By: Leigh Ann Polk Pulse Oximetry ([id number])By: Flakito On: 30-Jun-2012 Intent DO, Adelaida A Fast DO, Adelaida A Comments: 97% Eprescribed prescriptions On: 12-Jun-2012 Intent (G8553)By: Fast DO, Adelaida A Fast DO, Adelaida A Spirometry ([id number])By: Felicitas, On: 17-Jan-2012 Intent Leigh Ann Comments: good effort and curve mild restriction CT - Sinuses CompleteBy: Fast DO, On: 17-Jan-2012 Intent Adelaida A Fast DO, Adelaida A PNEUM VAC ADLT/IMUMNOSPR, On: 17-Jan-2012 Intent SBC/INTRM ([id number])By: Boris, Comments: Lot:[id number]:3-5-13Dose:0.5mLRoute:IMSite:L sreeGiven By:CHELA signed Julia IMMUNIZ ADMNIN, 1 VAC, SNGL/COMBO On: 17-Jan-2012 Intent ([id number])By: Julia Escalante CT - ChestBy: Fast DO, Adeladia A On: 17-Jan-2012 Intent Fast DO, Adelaida A Eprescribed prescriptions On: 17-Jan-2012 Intent (G8553)By: Leigh Ann Polk Eprescribed prescriptions On: 18-Oct-2011 Intent (G8553)By: Fast DO, Adelaida A Fast DO, Adelaida A EKG ([id number])By: Fast DO, Adelaida A On: 15-Oct-2011 Intent Fast DO, Adelaida A Comments: ekg- sinus with normal axis and nsivcd and no acute changes Eprescribed prescriptions On: 09-Aug-2011 Intent (G8553)By: Fast DO, Adelaida A Fast DO, Adelaida A PFT - CompleteBy: Fast DO, Adelaida On: 08-Mar-2011 Intent A Fast DO, Adelaida A Pulse Oximetry ([id number])By: Ciesa On: 02-Feb-2011 Intent ALBARO Samantha Taylor Aerosol Treatment ([id number])By: On: 02-Feb-2011 Intent Cialyse IRVIN Samantha Taylor Radiology - Chest- PA and LatBy: On: 18-Jan-2011 Intent Fast DO, Adelaida A Fast DO, Adelaida A Pulse Oximetry (55525)By: On: 18-Jan-2011 Intent Leigh Ann Polk Comments: 93% TDAP VACCINE >7 IM ([id number])By: On: 07-Dec-2010 Intent Leigh Ann Polk Comments: Lot #:[id number] date:mount given:0.5mlRoute: IMSite given:left deltGiven by: DANIEL Zavaleta Eprescribed prescriptions On: 07-Dec-2010 Intent (G8553)By: Fast DO, Adelaida A Fast DO, Adelaida A FLU VAC, SPLIT, >3 YEARS, On: 07-Dec-2010 Intent INTRAMUSC ([id number])By: Felicitas, Comments: received at work Leigh Ann Toradol Injection, 30 mg On: 05-Nov-2010 Intent (J1885)By: Elizabet Green DO Comments: Lot:[id number]:apr 05Amt:30mg/mlRoute:IMSite:left hip Given By: ILDA rTan Ear Irrigation (30613)By: Peter On: 05-Nov-2010 Elizabet Thomson DO Comments: Left ear irrigated, large amt of wax removed. pt tolerated well. Eprescribed prescriptions On: 05-Nov-2010 Intent (G8553)By: Elizabet Green DO Wax CurettesBy: Peter ACKERMAN, On: 05-Nov-2010 Intent Elizabet SPECIMEN HNDLNG/TRNSPRT, OFFC > On: 05-Nov-2010 Intent LAB ([id number])By: Elizabet Green DO Nuclear Medicine - HIDA w/CPKBy: On: 09-Oct-2010 Intent Fast DO, Adelaida A Fast DO, Adelaida A CT - ChestBy: Fast DO, Adelaida A On: 06-Oct-2010 Intent Fast DO, Adelaida A Comments: high resolution Ultrasound - GallbladderBy: Fast On: 06-Oct-2010 Intent DO, Adelaida A Fast DO, Adelaida A CT - Abdomen & Pelvis Stone On: 05-Oct-2010 Intent ProtocolBy: Fast DO, Adelaida A Flakito Comments: stat call wet read DO, Adelaida A Spirometry ([id number])By: Fast DO, On: 14-Sep-2010 Intent Adelaida A Fast DO, Adelaida A Comments: good effort and curve- mild restriction Eprescribed prescriptions On: 14-Sep-2010 Intent (G8553)By: Fast DO, Adelaida A Fast DO, Adelaida A Pulse Oximetry ([id number])By: Fast On: 14-Sep-2010 Intent DO, Adelaida A Fast DO, Adelaida A Comments: 94-95 Radiology - Chest- PA and LatBy: On: 14-Sep-2010 Intent Fast DO, Adelaida A Fast DO, Adelaida A Pulse Oximetry ([id number])By: Carmina On: 23-Feb-2010 Intent ALBARO Anamaria Aerosol Treatment ([id number])By: On: 23-Feb-2010 Intent Ciescalin IRVIN Anamaria Pulse Oximetry (79029)By: Carmina On: 26-Jan-2010 Intent ALBARO Anamaria Aerosol Treatment ([id number])By: On: 26-Jan-2010 Intent Carmina IRVIN Anamaria Spirometry (32614)By: Felicitas On: 29-Apr-2008 Intent Leigh Ann Comments: good effort and curve normal EKG (20204)By: Fast DO, Adelaida A On: 20-Apr-2007 Intent Fast DO, Adelaida A Comments: ekg showed normal sinus rhythym, normal axis, no acute st/t wave changes Echo CompleteBy: Fast DO, Adelaida A On: 20-Apr-2007 Intent Fast DO, Adelaida A CT - ChestBy: Fast DO, Adelaida A On: 20-Apr-2007 Intent Fast DO, Adelaida A Comments: please include right axilla Rocephin Injection, 2 Gram On: 27-Mar-2007 Intent ([id number])By: Fast DO, Adelaida A Flakito Comments: Lot #: [id number] date: 10/30Amount given: 2 gramsRoute: IMSite given: Right hip and left hipGiven by: Calin Townsend LPN DO, Adelaida A Spirometry ([id number])By: Fast DO, On: 27-Mar-2007 Intent Adelaida A Fast DO, Adelaida A Comments: good effort and curve normal EBV SEROLOGIC TESTBy: Mary Ann Salcido On: 17-Feb-2007 Intent RUDY-GUZMAN VCA ANTIBODY On: 16-Feb-2007 Intent MEASUREMENTBy: Mast RN, Negrita SPECIMEN HNDLNG/TRNSPRT, OFFC > On: 06-Feb-2007 Intent LAB ([id number])By: Fast DO, Adelaida A Fast DO, Adelaida A Ultrasound - TesticularBy: Fast On: 13-Oct-2006 Intent DO, Adelaida A Fast DO, Adelaida A Inhaler Demo ([id number])By: Flakito DO, On: 26-Sep-2006 Intent Adelaida A Fast DO, Adelaida A Radiology - Hip - LeftBy: Fast On: 26-Sep-2006 Intent DO, Adelaida A Fast DO, Adelaida A Radiology - Hip - RightBy: Fast On: 26-Sep-2006 Intent DO, Adelaida A Fast DO, Adelaida A Bio Z ([id number])By: Fast DO, Adelaida A On: 25-Jul-2006 Intent Fast DO, Adelaida A Comments: normal paremters Six Minute Walk Assessment On: 25-Jul-2006 Intent ([id number])By: Fast DO, Adelaida A Fast DO, Adelaida A Radiology - Chest- PA and LatBy: On: 25-Jul-2006 Intent Fast DO, Adelaida A Fast DO, Adelaida A Spirometry ([id number])By: Flakito ACKERMAN, On: 25-Jul-2006 Intent Adelaida A Fast DO, Adelaida A Comments: good effort and curve- normal EDISON (Ankle Brachial Index) On: 20-Jul-2006 Intent ([id number])By: Leigh Ann Polk Comments: done EDISON (Ankle Brachial Index) On: 17-May-2006 Intent ([id number])By: Fast DO, Adelaida A Fast DO, Adelaida A Cartoid DopplerBy: Flakito DO, Adelaida On: 17-May-2006 Intent A Fast DO, Adelaida A Planned Medications INJECTION, KETOROLAC TROMETHAMINE, PER 15 MG Ordered: 05-Nov-2010 Pending Elizabet Green DO INJECTION, METHYLPREDNISOLONE SODIUM SUCCINATE, UP TO 125 MG Ordered: 09-May-2015 Pending Samantha Grewal CNP INJECTION, METHYLPREDNISOLONE SODIUM SUCCINATE, UP TO 125 MG Ordered: 18-Jan-2017 Pending Yola Witt Instructions Name Dates Details Hypertension, benign : How to access health information online Indication: Hypertension, benign Hypertension, benign : How to access health information online - Detail Indication: Hypertension, benign Hypertension, benign : Patient Instructions Indication: Hypertension, benign Diplopia : How to access health information online Indication: Diplopia Diplopia : How to access health information online - Detail Indication: Diplopia Diplopia : Patient Instructions Indication: Diplopia BMI 40.0-44.9, adult : How to access health information online Indication: BMI 40.0-44.9, adult BMI 40.0-44.9, adult : How to access health information online - Detail Indication: BMI 40.0-44.9, adult BMI 40.0-44.9, adult : Patient Instructions Indication: BMI 40.0-44.9, adult Acute bronchitis : How to access health information online Indication: Acute bronchitis Acute bronchitis : How to access health information online - Detail Indication: Acute bronchitis Acute bronchitis : Patient Instructions Indication: Acute bronchitis Non-smoker : How to access health information online Indication: Non-smoker Non-smoker : How to access health information online - Detail Indication: Non-smoker Non-smoker : Patient Instructions Indication: Non-smoker Non-smoker : How to access health information online Indication: Non-smoker Non-smoker : How to access health information online - Detail Indication: Non-smoker Non-smoker : Patient Instructions Indication: Non-smoker Non-smoker : How to access health information online Indication: Non-smoker Non-smoker : How to access health information online - Detail Indication: Non-smoker Abnormal lung sounds : Patient Instructions Indication: Abnormal lung sounds Anxiety and depression : How to access health information online Indication: Anxiety and depression Anxiety and depression : How to access health information online - Detail Indication: Anxiety and depression Anxiety and depression : Patient Instructions Indication: Anxiety and depression Moderate persistent asthma without complication : How to access health information online Indication: Moderate persistent asthma without complication Moderate persistent asthma without complication : How to access health information online - Detail Indication: Moderate persistent asthma without complication Moderate persistent asthma without complication : Patient Instructions Indication: Moderate persistent asthma without complication Anxiety and depression : How to access health information online Indication: Anxiety and depression Anxiety and depression : How to access health information online - Detail Indication: Anxiety and depression Anxiety and depression : Patient Instructions Indication: Anxiety and depression Moderate persistent asthma without complication : How to access health information online Indication: Moderate persistent asthma without complication Moderate persistent asthma without complication : How to access health information online - Detail Indication: Moderate persistent asthma without complication Moderate persistent asthma without complication : Patient Instructions Indication: Moderate persistent asthma without complication Neoplasm of uncertain behavior of skin : How to access health information online Indication: Neoplasm of uncertain behavior of skin Neoplasm of uncertain behavior of skin : How to access health information online - Detail Indication: Neoplasm of uncertain behavior of skin Neoplasm of uncertain behavior of skin : Patient Instructions Indication: Neoplasm of uncertain behavior of skin [facility] Physical : Patient Instructions Indication: [facility] Physical [facility] Physical : How to access health information online Indication: [facility] Physical [facility] Physical : How to access health information online - Detail Indication: [facility] Physical Other hyperlipidemia : How to access health information online Indication: Other hyperlipidemia Other hyperlipidemia : How to access health information online - Detail Indication: Other hyperlipidemia Other hyperlipidemia : Patient Instructions Indication: Other hyperlipidemia Allergic rhinitis : How to access health information online Indication: Allergic rhinitis Allergic rhinitis : How to access health information online - Detail Indication: Allergic rhinitis Allergic rhinitis : Patient Instructions Indication: Allergic rhinitis Cough : How to access health information online - Detail Indication: Cough Cough : How to access health information online Indication: Cough Cough : Patient Instructions Indication: Cough Other hyperlipidemia : How to access health information online Indication: Other hyperlipidemia Other hyperlipidemia : How to access health information online - Detail Indication: Other hyperlipidemia Other hyperlipidemia : Patient Instructions Indication: Other hyperlipidemia Unspecified osteoarthritis, unspecified site : How to access health information online Indication: Unspecified osteoarthritis, unspecified site Unspecified osteoarthritis, unspecified site : How to access health information online - Detail Indication: Unspecified osteoarthritis, unspecified site Unspecified osteoarthritis, unspecified site : Patient Instructions Indication: Unspecified osteoarthritis, unspecified site Abnormal glucose tolerance test : How to access health information online Indication: Abnormal glucose tolerance test Abnormal glucose tolerance test : How to access health information online - Detail Indication: Abnormal glucose tolerance test Abnormal glucose tolerance test : Patient Instructions Indication: Abnormal glucose tolerance test Cough : Patient Instructions Indication: Cough Dysthymic disorder : Patient Instructions Indication: Dysthymic disorder Essential hypertension : Patient Instructions Indication: Essential hypertension Muscle weakness : Patient Instructions Indication: Muscle weakness Cough : Patient Instructions Indication: Cough Dysuria : Patient Instructions Indication: Dysuria Dysthymic disorder : Patient Instructions Indication: Dysthymic disorder Dysthymic disorder : Patient Instructions Indication: Dysthymic disorder Coronary artery disease : Patient Instructions Indication: Coronary artery disease Dysuria : Patient Instructions Indication: Dysuria Urinary tract infection, site not specified : Patient Instructions Indication: Urinary tract infection, site not specified Coronary artery disease : Patient Instructions Indication: Coronary artery disease Asthma, intrinsic, with status asthmaticus : Patient Instructions Indication: Asthma, intrinsic, with status asthmaticus Cough : Patient Instructions Indication: Cough Abnormal glucose tolerance test : Patient Instructions Indication: Abnormal glucose tolerance test Cough : Patient Instructions Indication: Cough Dysthymic disorder : Patient Instructions Indication: Dysthymic disorder Abnormal glucose tolerance test : Patient Instructions Indication: Abnormal glucose tolerance test Cough : Patient Instructions Indication: Cough Rash : Patient Instructions Indication: Rash Abnormal glucose tolerance test : Patient Instructions Indication: Abnormal glucose tolerance test SOB (shortness of breath) on exertion : Patient Instructions Indication: SOB (shortness of breath) on exertion Acute sinusitis, unspecified : Patient Instructions Indication: Acute sinusitis, unspecified Dysthymic disorder : Patient Instructions Indication: Dysthymic disorder Advance Directives Name Dates Details Immunization Registry [facility] - Effective on Effective: 31-Jan-201701/31/2017. Expiration date unspecified Encounters Office Visit On: 06-Dec-2017 8:15 Encounter Reason: Follow up tests - Date: (12/05 blood work)., [ADDITIONAL REASON] Follow up for chronic medical issues - The patient feels well with minor complai End: 07-Dec-2017 10:16 nts, has decreased energy level and is sleeping well (good nights and bad nights. gets up to use bathroom). Patient has been compliant with instructions. Current medication use: no side effects and comp liant with dosing regimen. Patient sleeps 5 hours per night. Nutrition: inappropriate diet, supplemental vitamins and low salt diet. The medical issues the patient is following up for include All identi fied problems below, asthma, blood sugar issues, cardiac issues, gastric reflux, high blood pressure, high cholesterol, osteoarthritis, other (DDD, CTS, BPH) and peripheral vascular disease. Note for Gregorio champion up for chronic medical issues: bp is good - alot of stress at home - medical issues- no more diplopia - saw Juany - had mri of brain and carotids and acetylcholine receptor ab neg- he was g oing to [facility] 2-3 times a week for a while hasnt been again recently- so will need to try to get back on track- no gerd- also using miralax for bowels - and that helping- no issues with crestor - and lab s look great- got flu shot this year- now on medicare - breathing has been ok Encounter Diagnosis: Non-smoker, BMI 40.0-44.9, adult, Bronchiectasis, Arteriosclerosis of carotid artery, bilateral, Hypertension, benign, Other hyperlipidemia, Sleep disorder, Gastroesophageal reflux disease without esophagitis, Coronary artery disease, Abnormal glucose tolerance test, Pneumococcal vaccination given [facility] Office Visit On: 20-Sep-2017 8:27 Encounter Reason: Follow up acute care visit - The patient feeling better since last seen and improving. Patient has been compliant with instructions. Current medication use: no side effects. Note for Follow up acute ca End: 20-Sep-2017 22:12 re visit: he is using mucinex and breathing treatments and thinks the cough is better- he has had double vision again firs ttime in a while last time had to get prism in glasses but then noticed it got harder to read so took them out - no other stroke symptoms no weakness or numbness slurred speech dizzy vertigo - suggested he go see eye docagain and if any cerrebellum sx we discussed go to er- mood is acceptable - not grossly motivated, [ADDITIONAL REASON] Follow up tests - Diagnostic tests include other (heart cath and pulmonary report). Note for Discuss procedure results: reviewed heart cath report and ruddy report discussed him talking withSibilia about vibration vest- he not sleeping great- because still getting up frequently to urinate and taking flomax and myrbetriq- he has seen two urologist Fabiola =- had sev eral tests- he was told he wasnt emptying bladder well - creatinine normal- - he was getting dilated periodically- which helped Encounter Diagnosis: Non-smoker, BMI 40.0-44.9, adult, Diplopia, Bronchiectasis, Moderate persistent asthma without complication, Carotid stenosis [facility] Office Visit On: 06-Sep-2017 8:22 Encounter Reason: Follow up for chronic medical issues - The patient feels well with minor complaints (dealing with lung with siblia), has good energy level (about what it was) and is sleeping well (good nights and bad End: 08-Sep-2017 21:26 nights). Patient has been compliant with instructions. Current medication use: no side effects and compliant with dosing regimen. Patient sleeps 5 hours per night. Nutrition: inappropriate diet, supple mental vitamins and low salt diet. The medical issues the patient is following up for include All identified problems below, asthma, blood sugar issues, cardiac issues, gastric reflux, high blood pressu re, high cholesterol, osteoarthritis, other (DDD, CTS, BPH) and peripheral vascular disease. Note for Follow up for chronic medical issues: had heart cath after abnormal stress test which was apparent ly ok- then saw ruddy who put him on prednisone and erythromycin which he is still takeing - he feels like still having cough and mucous and wheeze- and mucinex bid and wants him doing albuterol aeros ol tid- bp is good chol is good - weight up- we discussed his weight - [facility]- and try to start exercising-, [ADDITIONAL REASON] Follow up tests - Date: (09/05 blood work). Encounter Diagnosis: Non-smoker, BMI 40.0-44.9, adult , Moderate persistent asthma without complication, Gastroesophageal reflux disease without esophagitis, Hypertension, benign, Abnormal glucose tolerance test, Other hyperlipidemia, Coronary artery disease, Encounter for screening for malignant neoplasm of prostate (Renamed from Screening for prostate cancer), Carotid stenosis, Bronchiectasis [facility] Office Visit On: 08-Jul-2017 14:01 Encounter Reason: Cough - Symptoms include cough, chills and sore throat. The cough is described as loose and productive (brown). Cough onset was 1 day(s) ago. Symptoms are described as unchanged. Associated symptoms inc End: 10-Jul-2017 23:08 lude postnasal drainage and headache. Current treatment includes nonsteroidal anti- inflammatory drugs. Note for Cough: last night freezing and shaking chills- aches gone this am but the cough really nasty- not badly sob but is wheezing Encounter Diagnosis: BMI 40.0-44.9, adult, Non-smoker, Acute bronchitis [facility] Phone Encounter On: 28-Jun-2017 15:19 Encounter Diagnosis: Other hyperlipidemia End: 28-Jun-2017 15:21 [facility] Office Visit On: 06-Jun-2017 8:26 Encounter Reason: Physical male exam - General health: feels well with no complaints, has good energy level (about the same) and is sleeping well. The patient's appetite is normal. Nutrition: normal/adequate. Exercises End: 04-Jul-2017 12:19 0 days per week. Sleeps on average 8 hours per night. Elimination problems include constipation (takes stool softeners). Safety measures include appropriate use of safety belts, appropriate use of helm ets and home smoke detectors , but do not include counseling regarding safe sex/HIV or counseling regarding substance abuse. Current emotional problems include anxiety, apprehension, depression, nervous ness and sleep disturbances. The patient's libido is decreased (low to next to none). Preventative measures done by patient are screening, colonoscopy (2016), screening, visual acuity and PSA. Note for Physical exam: [facility]- HAD A BUNCH of pulmonary tests with Dr Alonso and has followup tomorrow with him- bp is good - now on oxygen at night with cpap- no change in prostate symptoms - is sleeping deeper- still taking flomax and myrbetriqEncounter Diagnosis: Non- smoker, BMI 40.0-44.9, adult, Gastroesophageal reflux disease without esophagitis, [facility], Abnormal chest xray, Coronary artery disease, Hypertension, benign, Abnormal glucose tolerance test, Other hyperlipidemia, Anxiety and depression, Lumbar radiculopathy [facility] Office Visit On: 24-Feb-2017 14:39 Encounter Diagnosis: Abnormal chest xray, Left ankle pain End: 24-Feb-2017 19:45 [facility] Office Visit On: 11-Feb-2017 11:04 Encounter Reason: Follow up for chronic medical issues - The patient feels well with minor complaints, has good energy level and is sleeping well (good nights and bad nights). Patient has been compliant with instructions End: 15-Feb-2017 22:18 . Current medication use: no side effects and compliant with dosing regimen. Patient sleeps 5 hours per night. Nutrition: inappropriate diet, supplemental vitamins and low salt diet. The medical issues the patient is following up for include All identified problems below, asthma, blood sugar issues, cardiac issues, gastric reflux, high blood pressure, high cholesterol, osteoarthritis, other (DDD, CTS, BPH) and peripheral vascular disease. Note for Follow up for chronic medical issues: Left heel pain- when walking - his breathing in genral pretty good- and using dulera- his cough better- and no andi d - mood not singificantly changed- his chol up a bit because had to hold atorvastatin brecause on his thrush med, [ADDITIONAL REASON] Follow up, Laboratory Test Results - Date: (02/06/17). , [ADDITIONAL REASON] Foot Problem - Symptoms include foot pain, while symptoms do not include foot swelling or foot numbness. Symptoms are located in the left foot (heel). Onset was sudden 3 week(s) ago . The symptoms occur constantly. The patient describes symptoms as unchanged. Symptoms are exacerbated by weight bearing and walking, while symptoms are not exacerbated by standing. Associated symptoms do not include ankle swelling, limited weight bearing, leg pain or back pain. Note for Foot problem: walking barefoot and liked pulled something Encounter Diagnosis: BMI 39.0-39.9,adult, Non-smoker, Abnormal glucose tolerance test, Left ankle pain , Abnormal chest xray, Encounter for hepatitis C virus screening test for high risk patient, Fatigue, Hypertension, benign, Other hyperlipidemia [facility] Office Visit On: 28-Jan-2017 12:26 Encounter Diagnosis: Oral thrush End: 28-Jan-2017 12:31 [facility] Phone Encounter On: 19-Jan-2017 17:24 Encounter Diagnosis: Unspecified bacterial pneumonia End: 19-Jan-2017 17:26 [facility] Office Visit On: 18-Jan-2017 13:17 Encounter Reason: Flu Like Symptoms - Symptoms include chills, body aches, nasal congestion and productive cough (sometimes). Onset was day(s) ago. The patient describes this as unchanged. Associated symptoms include julia End: 18-Jan-2017 14:47 rtness of breath, fatigue and chills. Current treatment includes oral decongestants and a beta agonist inhaler. Note for Flu like symptoms: Symptoms 5-6 days ago-congestion in lungs, body aches,cough- clear at first, now dry cough, fever and chills, SOB. ?No headaches, nasal drainage, sore throat, back pain and cp. Was seen in urgent care 3 days ago- Dr. Fraga called pt in [place]. Has been using mucinex, and tylenol, nasal spray, and dulera inhaler.Encounter Diagnosis: Non-smoker, Abnormal lung sounds, BMI 39.0-39.9,adult, Flu-like symptoms, Sore throat, Asthma with acute exacerbation [facility] Phone Encounter On: 29-Dec-2016 15:24 Encounter Diagnosis: Left flank pain End: 29-Dec-2016 15:28 [facility] Office Visit On: 24-Dec-2016 16:00 Encounter Diagnosis: Unspecified Diagnosis End: 24-Dec-2016 16:13 [facility] Phone Encounter On: 12-Nov-2016 13:53 Encounter Diagnosis: Abnormal blood chemistry End: 12-Nov-2016 14:02 [facility] Office Visit On: 10-Nov-2016 15:37 Encounter Reason: Follow up for chronic medical issues - The patient feels well with minor complaints (under a lot of stress with health issues with parents. Having a lot of recent pain/issues in the L kidney area. feels End: 11-Nov-2016 17:13 like it is knotted up sometimes.), has good energy level and is sleeping well (good nights and bad nights). Patient has been compliant with instructions. Current medication use: no side effects and com pliant with dosing regimen. Patient sleeps 5 hours per night. Nutrition: inappropriate diet, supplemental vitamins and low salt diet. The medical issues the patient is following up for include All ident ified problems below, asthma, blood sugar issues, cardiac issues, gastric reflux, high blood pressure, high cholesterol, osteoarthritis, other (DDD, CTS, BPH) and peripheral vascular disease. Note for Follow up for chronic medical issues: has had some stress with parents health and trying to help out bp is good but weight up some - sugar is good- leftkidney pain comes and goes- had for 11/[address] [facility]ight then on and off now for 2 weeks not daily- no fever and has urgency again and taking flomax and myrbetrique, [ADDITIONAL REASON] Follow up tests - Date: (11/09 blood work). Encounter Diagnosis: Non-smoker, Anxiety and depression, BMI 39.0-39.9,adult, Left flank pain, Abnormal glucose tolerance test, Hypertension, benign, Other hyperlipidemia, Moderate persistent asthma without complication, Gastroesophageal reflux disease without esophagitis [facility] Office Visit On: 09-Aug-2016 15:34 Encounter Reason: Follow up for chronic medical issues - The patient feels well with no complaints, has good energy level and is sleeping well (good nights and bad nights). Patient has been compliant with instructions. C End: 09-Aug-2016 20:08 urrent medication use: no side effects and compliant with dosing regimen. Patient sleeps 5 (cause he hasnt been on Myrbetrique lately and been getting up more) hours per night. Nutrition: inappropriate diet, supplemental vitamins and low salt diet. The medical issues the patient is following up for include All identified problems below, asthma, blood sugar issues, cardiac issues, gastric reflux, high blood pressure, high cholesterol, osteoarthritis, other (DDD, CTS, BPH) and peripheral vascular disease. Note for Follow up for chronic medical issues: has had some more issues with breathing this yea r outside- had run out of inhaler so feels it will get better backon inhaler -- he doesnt feel like he needs steroids- also chest sympotms doing ok andno routine gerd and feels mood acceptable despite h is stress - bp and sugar and chol good - tolerating the meds, [ADDITIONAL REASON] Follow up, Laboratory Test Results - Date: (07/2016). Encounter Diagnosis: Non- smoker, Moderate persistent asthma without complication, BMI 39.0-39.9,adult, Abnormal blood chemistry, Abnormal glucose tolerance test, Anxiety and depression, Other hyperlipidemia, Hypertension, benign, Coronary artery disease, Gastroesophageal reflux disease without esophagitis, Encounter for screening for malignant neoplasm of prostate (Renamed from Screening for prostate cancer) [facility] Phone Encounter On: 11-Jun-2016 7:37 Encounter Diagnosis: Allergic rhinitis End: 11-Jun-2016 15:12 [facility] Phone Encounter On: 09-Jun-2016 10:16 Encounter Diagnosis: Allergic rhinitis End: 09-Jun-2016 10:22 [facility] Office Visit On: 17-May-2016 11:01 Encounter Reason: Follow up Meds - The patient feels well with minor complaints (follow-up on starting effexor- states he's able to get up in the mornings better now- doesnt feel drugged like he used too. He feels its no End: 17-May-2016 21:40 t really helped with the anxiety or depression as his life is just a roller coaster.), has good energy level and is sleeping well. Patient has been compliant with instructions. Current medication use: n o side effects and compliant with dosing regimen. Patient sleeps 6 hours per night. Note for Follow up Meds: he still anxiety- he is using buspar only bid so talked about using tid - taking 60 mg of a torvastatin and toleratingnot exrcsing no heart sx- no gerd, [ADDITIONAL REASON] Follow up, Laboratory Test Results - Date: (05/14/16). Encounter Diagnosis: Anxiety and depression, Non-smoker, BMI 37.0-37.9, adult, Other hyperlipidemia, Hypertension, benign, Abnormal glucose tolerance test, Abnormal blood chemistry [facility] Phone Encounter On: 06-Apr-2016 15:13 Encounter Diagnosis: Essential hypertension, Other hyperlipidemia End: 06-Apr-2016 15:15 [facility] Office Visit On: 06-Apr-2016 13:14 Encounter Reason: Follow up for chronic medical issues - The patient feels well with no complaints, has good energy level and is sleeping well (good nights and bad nights). Patient has been compliant with instructions. C End: 06-Apr-2016 22:06 urrent medication use: no side effects and compliant with dosing regimen. Patient sleeps 10 hours per night. Nutrition: inappropriate diet, supplemental vitamins and low salt diet. The medical issues th e patient is following up for include All identified problems below, asthma, blood sugar issues, cardiac issues, gastric reflux, high blood pressure, high cholesterol, osteoarthritis, other (DDD, CTS, B PH) and peripheral vascular disease. Note for Follow up for chronic medical issues: Passed a kidney stone last week- wasnt too bad- doing ok now. 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 [employer]- it i n itself not overtly stressful- bp is good - using dulera not needing proventil rotuinely- donna thinks singulair helps as went off and having congestion and now back on and helping- chest symptoms- heart has been good -- sugar good Encounter Diagnosis: Moderate persistent asthma without complication, Abnormal glucose tolerance test, Essential hypertension, Other hyperlipidemia, Anxiety and depression, Coronary artery disease [facility] Office Visit On: 23-Jan-2016 11:14 Encounter Reason: Skin Lesion Removal - Several subcutanious horns on right side of head to be removed. Pt states there's one on top of his scalp also.Encounter Diagnosis: Neoplasm of uncertain behavior of skin, BMI 37.0-37.9, adult, Non-smoker, End: 25-Jan-2016 21:25 Actinic keratosis [facility] Office Visit On: 05-Jan-2016 13:03 Encounter Reason: Physical male exam - General health: feels well with minor complaints (moles on her face, on top of his head and something on his forheadcurious about his thyroid). The patient's appetite is normal. Nut End: 18-Jan-2016 19:04 rition: normal/adequate. Exercises 0 days per week. Sleeps on average 10 hours per night. Elimination problems include urinary frequency (at night up 3x a night) and constipation (at times). Safety oscar ures include appropriate use of safety belts, appropriate use of helmets and home smoke detectors , but do not include counseling regarding safe sex/HIV or counseling regarding substance abuse. Current emotional problems include anxiety, apprehension, depression, nervousness and sleep disturbances. The patient's libido is decreased (low to next to none). Preventative measures done by patient are sukh holt, colonoscopy (2015), screening, visual acuity (2014, glacoma test was done) and PSA. Note for Physical exam: [facility]- he not taking singulair not convinced helping does have more sinus sx with yekllow drainage now- not taking pain meds rotuinely but does occ need with back- takes ativan prn he still has anxiety seeing psych feels he maxed out on meds- talked about exercise, [ADDITIONAL REASON] Follow up, Laboratory Test Results - Date: (12/17/15). Encounter Diagnosis: [facility], Non-smoker, BMI 37.0-37.9, adult, Abnormal blood chemistry, Encounter for screening for malignant neoplasm of prostate (Renamed from Screening for prostate cancer), Acute recurrent maxillary sinusitis, Neoplasm of uncertain behavior of skin, Other hyperlipidemia, Abnormal glucose tolerance test, Asthma, Other intervertebral disc degeneration, lumbar region, Dysthymic disorder (300.4) [facility] Office Visit On: 07-Oct-2015 13:22 Encounter Reason: Follow up for chronic medical issues - The patient feels well with minor complaints (no ambition or energy....depression or low testosterone??), has decreased energy level and is sleeping well. Patient End: 07-Oct-2015 15:25 has been compliant with instructions. Current medication use: no side effects and compliant with dosing regimen. Patient sleeps 12 hours per night. Nutrition: inappropriate diet, supplemental vitamins a nd low salt diet. The medical issues the patient is following up for include All identified problems below, asthma, blood sugar issues, cardiac issues, gastric reflux, high blood pressure, high choleste rol, osteoarthritis, other (DDD, CTS, BPH) and peripheral vascular disease. Note for Follow up for chronic medical issues: having fatigue lack of motivation and talked with him about mood they now hav e himon 60 mg ao f paxil -wonder about dosing too high but needs to get back to psychiattrist about as we have tried multiple meds- also long discussion about diet and processed carbs and how they cause feel fatigue- and he eating bagel with creme cheese and rigatoni- we discussed physiology of that and dm and insulin resistance . hypoglycemia- he has been following with cardio and actually having les s chest pains significantly less since not working- and bp is good and chol reviewed could be bit better - need to keep plaque down , [ADDITIONAL REASON] Follow up, Laboratory Test Results - Date: (10/07/15). Encounter Diagnosis: Other hyperlipidemia , History of colon polyps, Abnormal glucose tolerance test, Hypertension, benign, Dysthymic disorder (300.4), Fatigue (780.79) [facility] Office Visit On: 01-Oct-2015 16:05 Encounter Diagnosis: Colon polyp End: 01-Oct-2015 16:06 [facility] Office Visit On: 19-Aug-2015 14:38 Encounter Reason: Cough - The onset of the cough has been sudden. The cough is characterized as productive of mucopurulent sputum. The amount of sputum produced is less than a half a cup per day. The cough occurs all th End: 20-Aug-2015 9:24 e time. the color of the sputum is greenish. Note for Cough : Taste bad. little sob no feverEncounter Diagnosis: Bronchitis, acute [facility] Office Visit On: 16-Jul-2015 13:24 Encounter Reason: Follow up for chronic medical issues - The patient feels well with no complaints, has good energy level and is sleeping well. Patient has been compliant with instructions. Current medication use: no josé luis End: 21-Jul-2015 18:53 e effects and compliant with dosing regimen. Patient sleeps 8 hours per night. Nutrition: inappropriate diet, supplemental vitamins and low salt diet. The medical issues the patient is following up for include All identified problems below, asthma, blood sugar issues, cardiac issues, gastric reflux, high blood pressure, high cholesterol, osteoarthritis, other (DDD, CTS, BPH) and peripheral vascular di sease. Note for Follow up for chronic medical issues: bp is good - saw cardio last month and they gave him a year as nothing changed - no gerd- myrebtrique helps and tried other alternatives didnt help, [ADDITIONAL REASON] Follow up, Laboratory Test Results - Date: (06/2015). Encounter Diagnosis: Allergic rhinitis, Benign prostatic hyperplasia with lower urinary tract symptoms, unspecified morphology, Dysthymic disorder (300.4), Encounter for screening for malignant neoplasm of prostate (Renamed from Screening for prostate cancer), Hypertension, benign, Other hyperlipidemia, Abnormal glucose tolerance test, Gastroesophageal reflux disease without esophagitis, Unspecified osteoarthritis, unspecified site [facility] Office Visit On: 09-May-2015 11:19 Encounter Reason: Cough - Symptoms include cough, dyspnea, wheezing and runny nose (clear. Green this morning). The cough is described as productive. Cough onset was 3 week(s) ago. There is no known event that preceded s End: 09-May-2015 12:18 ymptom onset. The cough occurs constantly. Symptoms are described as moderate in severity and worsening. Symptoms are exacerbated by lying down. Symptoms are not relieved by air conditioning, humidified air, warm drinks, warm weather, avoiding irritants, resting, lying down, sitting up, cough drops, cough medicine, acetaminophen, nonsteroidal anti-inflammatory drugs or inhaled bronchodilator use. Asso ciated symptoms include postnasal drainage. Previous presentation included a cough, a runny nose and dyspnea. Note for Cough: History of blood clot was on xaralto Encounter Diagnosis: Cough, Moderate persistent asthma with acute exacerbation [facility] Phone Encounter On: 22-Apr-2015 15:01 Encounter Diagnosis: Other symptoms involving cardiovascular system End: 22-Apr-2015 15:16 [facility] Office Visit On: 11-Apr-2015 13:10 Encounter Reason: Follow up for chronic medical issues - The patient feels well with minor complaints (left hip bothering him again- hx of bursitis in hip), has good energy level and is sleeping well. Patient has been co End: 13-Apr-2015 16:02 mpliant with instructions. Current medication use: no side effects and compliant with dosing regimen. Patient sleeps 8 hours per night. Nutrition: inappropriate diet, supplemental vitamins and low salt diet. The medical issues the patient is following up for include All identified problems below, asthma, blood sugar issues, cardiac issues, gastric reflux, high blood pressure, high cholesterol, osteoar thritis, other (DDD, CTS, BPH) and peripheral vascular disease. Note for Follow up for chronic medical issues: his bp is good and weight down 3 pounds - not too bad feeling smith- lefthip bothering mor e with sitting - hurts to gfirst get up but walking ok after first 4-5 steps- does hurt to sometimes lay on it - sometimes pain down to leg to ankle- had clotting tests done this am so will call with th ose- no gerd - his - his chest sx stable- he is able to rest and make go away- - he goes back to cardio- next month- and he is tolerating this dose of atorvastatin, [ADDITIONAL REASON] Follow up, Laboratory Test Results - Date: (04/11/15). Encounter Diagnosis: Other hyperlipidemia, Dysthymic disorder (300.4), Hip pain, chronic, left, Gastroesophageal reflux disease without esophagitis, Moderate persistent asthma with acute exacerbation, Deep vein thrombosis of lower extremity, Hypertension, benign, History of colon polyps, Abnormal glucose tolerance test, Cough [facility] Office Visit On: 06-Jan-2015 16:59 Encounter Reason: Follow up for chronic medical issues - The patient feels well with minor complaints (cough with light green sputum), has good energy level and is sleeping well. Patient has been compliant with instructi End: 08-Jan-2015 21:43 ons. Current medication use: no side effects and compliant with dosing regimen. Patient sleeps 8 hours per night. Nutrition: inappropriate diet, supplemental vitamins and low salt diet. The medical issu es the patient is following up for include All identified problems below, asthma, blood sugar issues, cardiac issues, gastric reflux, high blood pressure, high cholesterol, osteoarthritis, other (DDD, C TS, BPH) and peripheral vascular disease. Note for Follow up for chronic medical issues: he officially retired- dec 23- feels calmer- bp good - no gerd- takes vicoden 2-3 times a week for hip pain - tolerating atorvasttin and no gerd, [ADDITIONAL REASON] Follow up, Laboratory Test Results - Date: (12/2014). , [ADDITIONAL REASON] Cough - The onset of the cough has been sudden and has been occurring in a persi stent pattern for months. The course has been constant. The cough is characterized as productive of mucopurulent sputum. The amount of sputum produced is scanty. The cough occurs all the time. The sympt oms are aggravated by supine posture and exercise (when rolls on side at hs or leans over), but not by meals. The symptoms have been associated with wheezing (sometimes), while the symptoms have not bee n associated with chest pain, dyspnea, fever, headache, hoarseness, runny nose or sore throat. Encounter Diagnosis: Osteoarthritis, Unspecified Whether Generalized or Localized, Involving other Specified Sites (715.98), Allergic rhinitis, Gastroesophageal reflux disease without esophagitis, Deep vein thrombosis of lower extremity, Hypertension, benign, Hyperlipemia, Abnormal glucose tolerance test, Bronchitis, acute, Asthma [facility] Office Visit On: 23-Sep-2014 16:52 Encounter Reason: Follow up for chronic medical issues - The patient feels well with no complaints, has good energy level and is sleeping poorly (has trouble falling asleep). Patient has been compliant with instructions. End: 23-Sep-2014 21:56 Current medication use: no side effects and compliant with dosing regimen. Patient sleeps 5 hours per night. Nutrition: inappropriate diet, supplemental vitamins and low salt diet. The medical issues t he patient is following up for include All identified problems below, asthma, blood sugar issues, cardiac issues, gastric reflux, high blood pressure, high cholesterol, osteoarthritis, other (DDD, CTS, BPH) and peripheral vascular disease. Note for Follow up for chronic medical issues: thinking about retiring this year - feels like got rid of pneumonia- feels better - no gerd -now on rapaflo in plac e of flomax and has helped- feels like mood is good- bp ok suar good- chol high off meds, [ADDITIONAL REASON] Follow up, Laboratory Test Results - Date: (09/21/14). Encounter Diagnosis: Backache, unspecified (724.5), PROSTATIC HYPERTROPHY (600.), Abnormal Glucose Tolerance Test (790.22), Hyperlipidemia, Mixed (272.2), Muscle weakness, Asthma, Deep vein thrombosis of lower extremity, Hypertension (401.0) [facility] Phone Encounter On: 04-Sep-2014 13:01 Encounter Diagnosis: Candidiasis, Backache, unspecified (724.5) End: 04-Sep-2014 13:08 [facility] Office Visit On: 26-Aug-2014 17:05 Encounter Reason: Cold Symptoms - Symptoms include sneezing, nasal congestion, runny nose, sore throat, hoarseness and productive cough, while symptoms do not include postnasal drainage, scratchy throat, facial pressure, End: 26-Aug-2014 23:03 facial pain or headache. Onset was sudden 5 day(s) ago. The symptoms occur constantly. The patient describes this as worsening. Associated symptoms include ear pain, swollen lymph nodes, wheezing, shor tness of breath and chills, while associated symptoms do not include nausea, vomiting, diarrhea or fever. The patient is not currently being treated for this problem. Note for Cold symptoms: chilling at nigth feels alot of congestion and ears hurt- was coughing up Boris Diagnosis: Cough (786.2), SHORTNESS OF BREATH (Renamed from Breath shortness), BACTERIAL PNEUMONIA, UNSPECIFIED (482.9) [facility] Office Visit On: 17-Jul-2014 13:53 Encounter Reason: Follow up ER - Reason for hospitalization DVT (right calf). Patient has been compliant with instructions. Current medication use: no side effects and compliant with dosing regimen. The patient feels wel End: 18-Jul-2014 21:49 l with minor complaints (leg painful some yet but otherwise doing well), has good energy level and is sleeping well. Patient sleeps 7 hours per night. Note for Follow up ER: Pt went to [facility] and then went to [facility] to have the doppler done.- got back a week ago from trip - flew only two hours thinks from socks tight and falling down right leg got red and swollen- happened 5-6 d ays after back from trip - - red and swelling better- has superficial and depp clot- hasx 3 more days of lovenox- has no chest pain or sob and leg less tender and swollenEncounter Diagnosis: Dysthymic disorder (300.4), Deep vein thrombosis of lower extremity [facility] Phone Encounter On: 19-Jun-2014 15:01 Encounter Diagnosis: Heart disease, unspecified (429.9) End: 19-Jun-2014 15:03 [facility] Office Visit On: 17-Jun-2014 15:56 Encounter Reason: Follow up for chronic medical issues - The patient feels well with no complaints, has good energy level and is sleeping well. Patient has been compliant with instructions. Current medication use: no josé luis End: 17-Jun-2014 22:14 e effects and compliant with dosing regimen. Patient sleeps 6 hours per night. Nutrition: inappropriate diet, supplemental vitamins and low salt diet. The medical issues the patient is following up for include All identified problems below, asthma, blood sugar issues, cardiac issues, gastric reflux, high blood pressure, high cholesterol, osteoarthritis, other (DDD, CTS, BPH) and peripheral vascular di sease. Note for Follow up for chronic medical issues: he just stopeed crestor in last week- and hasnt noticed much difference in leg weakness yet and his psych stopped the abilify- no gerd and has fol lowup again with psych about meds and mood and his breathing been good- sometimes produces sputum but in general feels doing good- bp and sugar and chol good- no gerd - he has to followup witll with [facility] and will do that and see pschiatirst when he gets back - in general feeling some better with mood, [ADDITIONAL REASON] Follow up, Laboratory Test Results - Date: (06/15/14). Current symptoms/reason fo r visit include/s Follow up visit with no current symptoms. Encounter Diagnosis: Hypertension (401.0), Hyperlipidemia, Mixed (272.2), Muscle weakness, Gerd (530.81), Asthma, Abnormal Glucose Tolerance Test (790.22), Coronary Artery Disease (414.00) [facility] Office Visit On: 10-Jun-2014 12:10 Encounter Reason: Muscle weakness - The onset of the muscle weakness has been gradual and has been occurring in a persistent pattern for 6 months. The course has been increasing. The muscle weakness is characterized as d End: 10-Jun-2014 22:02 ifficulty in arising from a chair, difficulty in climbing stairs, increased weakness after exertion and increased weakness at the end of the day. The muscle weakness is located in the legs. The muscle w eakness is on both sides symmetrically. There has been no associated muscle cramps, muscle tenderness, muscle pain, numbness or tingling. Note for Muscle weakness: he started eating regular meals and smaller portions- snacking less and losing weight - no shoulder sx- he is having trouble with stairs and getting out of chair- left leg pain to knee hurts to lay on thinks bursitis left hip - Encounter Diagnosis: Dysthymic disorder (300.4), Hyperlipidemia, Mixed (272.2), Muscle weakness, Abnormal Glucose Tolerance Test (790.22), PROSTATIC HYPERTROPHY (600.) [facility] Office Visit On: 10-Apr-2014 15:48 Encounter Reason: Cough - The last clinic visit was 1 week(s) ago. Symptoms include cough, dyspnea, runny nose, stuffy nose and sore throat. The cough is described as productive (yellow). Cough onset was sudden 1 week(s) End: 10-Apr-2014 16:12 ago. The cough occurs constantly. The episodes last for 7 days. Symptoms are described as moderate in severity and worsening. Symptoms are exacerbated by lying down and cold temperature. Symptoms are r elieved by cough drops. Associated symptoms include postnasal drainage and painful swallowing. Previous presentation included a cough, a runny nose, dyspnea, a sore throat and painful swallowing. This problem has not been previously evaluated. Encounter Diagnosis: Cough (786.2), BRONCHITIS, NOT SPECIFIED ACUTE OR CHRONIC (490.), Wheezing (786.07) [facility] Office Visit On: 06-Feb-2014 16:31 Encounter Reason: Cold Symptoms - Symptoms include nasal congestion, postnasal drainage, scratchy throat, hoarseness and productive cough, while symptoms do not include runny nose, facial pressure, facial pain or headach End: 07-Feb-2014 23:59 e. Onset was gradual 3 week(s) ago. The symptoms occur constantly. The patient describes this as unchanged. Associated symptoms include shortness of breath, while associated symptoms do not include ear pain, wheezing, nausea, vomiting, diarrhea, fever or chills. The patient is not currently being treated for this problem. 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 The symptoms have been occurring for 1 week and have been constant. The urine is described as malodorous, brown and dark. The End: 21-Jan-2014 21:21 re has been no associated fever, abdominal pain, chills, nausea, vomiting or low back pain. Note for Infection: no fever or flank abd pain- feels like last time hasnt made appt with urology yet encoruage- and watchign caffeine and taking flomax Encounter Diagnosis: Dysuria (788.1), PROSTATIC HYPERTROPHY (600.) [facility] Office Visit On: 02-Jan-2014 14:05 Encounter Reason: Follow up acute care visit - The patient feels the same. Patient has been compliant with instructions. Current medication use: no side effects and compliant with dosing regimen. Patient sleeps 7 hours p End: 03-Jan-2014 20:16 er night. The medical issues the patient is following up for include All identified problems below and depression. Note for Follow up acute care visit: Pt is to wean off cymbalta per pschych and will take last dose tonight.- and will be starting on paxil for better anxiety control- he is supposed to go back next tuesday for work- getting less chest symptoms and in general feeling better- and sleeping better- wtih paxil- he thinks he is ready to try going back to work- still doing counseling sessions weekly and he feels they are helping- he is trying to work on managing stress better and will try me ditation to see if helps- he is readign self help books and exercising 3 times a week Encounter Diagnosis: Dysthymic disorder (300.4), Coronary Artery Disease (414.00), Hypertension (401.0), Asthma,Intrinsic (493.11), Abnormal Urine (791.9) [facility] Office Visit On: 17-Dec-2013 16:44 Encounter Reason: Follow up acute care visit - The patient feeling better since last seen and improving. Patient has been compliant with instructions. Current medication use: no side effects and compliant with dosing reg End: 17-Dec-2013 22:40 imen. Patient sleeps 7 hours per night. The medical issues the patient is following up for include All identified problems below and depression. Note for Follow up acute care visit: Depression has imp roved some since seen last. Pschych adjusted his meds. Has f/u with him end of nov. Work wanted him to come prosper today so had to come in and be seen to take off another week yet.- he feels some improveme nt in depression and anxiety but not gone- fatigue better - butn ot gone- psych added abilify - still issues with focusing and conscentrating - takes couple days to get thru paperwork that would normal ly not take but less than a day-he has switched abilify to nights which is helping him stay asleep but still trouble falling asleep- he not feeling suicidal now and he is doing counseling- - he is doing counseling once a week- he is trying to help himself - he is trying to get more exercise- no chest pain for a while until today he had with walkign but havingless than usual he was getting alot more at work - sitting down goes away Encounter Diagnosis: Dysthymic disorder (300.4), Osteoarthritis, Unspecified Whether Generalized or Localized, Involving other Specified Sites (715.98), Coronary Artery Disease (414.00), Asthma,Intrinsic (493.11) [facility] Office Visit On: 05-Dec-2013 10:16 Encounter Reason: Forms - The patient presents to the office to be evaluate for work form (short term disability forms) (see scanned in form filled out).Encounter Diagnosis: Coronary Artery Disease (414.00), Asthma,Intrinsic (493.11), End: 06-Dec-2013 23:29 Dysthymic disorder (300.4) [facility] Phone Encounter On: 28-Nov-2013 17:40 Encounter Diagnosis: Abnormal Urine (791.9) End: 28-Nov-2013 17:42 [facility] Office Visit On: 26-Nov-2013 15:23 Encounter Reason: Dysuria - The onset of the dysuria has been gradual and has been occurring in an intermittent pattern for weeks. The course has been increasing. The dysuria is described as moderate. The quality of the End: 04-Dec-2013 21:31 pain is described as a burning sensation and sharp The dysuria is described as being located in the glans penis. The dysuria does not radiate. The symptoms have been associated with urgency, while the s ymptoms have not been associated with chills, fever, frequency, hematuria or incontinence. Note for Dysuria: wants another urology opinion with recurrent issues, [ADDITIONAL REASON] Depression - Note for Depression: he saw psychiatrist and he increaseed his abilify- and doing counseling- he does stuggle with concentration at work and feels like work and stres s at work contributing too his health issues makes breathing worse and mood worse - the strain on heart with stress Encounter Diagnosis: Dysuria (788.1), PROSTATIC HYPERTROPHY (600.), Asthma, Dysthymic disorder (300.4) [facility] Office Visit On: 29-Oct-2013 16:41 Encounter Reason: Transition into care - The patient is transitioning into care from a hospital and a summary of care was reviewed . Note for Transition into care: Pt went from Dr. Reeves office straight to admission End: 01-Nov-2013 21:43 for 2 days with bad UTI.- was at [facility] and getting cystoscopy done and was found to be retaining urine- - by the next night he was sick with no appetitie and just felt bad went to bed - woke up next day- and felt bad- and went to [facility]- and had uti- was there 2 1/2 days - getting treated - now on macrbid- and feeling alot better - still little burning while sitting not with urination- went and saw psychiatrist today and they are oconsidering adding abilify for him- just have to watch sugar /trigs- reviewed labs with patient from 10/26, [ADDITIONAL REASON] Follow up, Diagnostic Procedure Results - Note for Discuss procedure results: labs from 10/26 Encounter Diagnosis: URINARY TRACT INFECTION, SITE NOT SPECIFIED (599.0), BRONCHITIS, NOT SPECIFIED ACUTE OR CHRONIC (490.), PROSTATIC HYPERTROPHY (600.), Abnormal Glucose Tolerance Test (790.22), Hypertension (401.0), Hyperlipidemia, Mixed (272.2) [facility] Phone Encounter On: 26-Oct-2013 15:59 Encounter Diagnosis: Abnormal Urine (791.9) End: 26-Oct-2013 16:01 [facility] Office Visit On: 03-Sep-2013 16:34 Encounter Reason: Cough - The onset of the cough has been sudden. The cough is characterized as dry. The amount of sputum produced is scanty. The cough occurs all the time. The symptoms are aggravated by supine posture. End: 03-Sep-2013 17:10 There has been no associated fever, hoarseness, runny nose, sore throat or wheezing.Encounter Diagnosis: Cough (786.2), BRONCHITIS, NOT SPECIFIED ACUTE OR CHRONIC (490.), Asthma [facility] Phone Encounter On: 15-Aug-2013 8:26 Encounter Diagnosis: Backache, unspecified (724.5) End: 15-Aug-2013 8:32 [facility] Office Visit On: 25-Jul-2013 15:17 Encounter Reason: Follow up acute care visit - The patient feeling better since last seen (did discuss cardiac sx with cardio -- see patient message). Note for Follow up acute care visit: he notes that bp running ashwini End: 25-Jul-2013 23:04 r since changes in meds- similar to what we have here- his chest sx are better too with nitro 0.6 mg patch- he has medical managment disease - his mood not great no si but he feels easily anxious then m akes him down- he is going o start counseling - he thinks his breathing has improved, [ADDITIONAL REASON] Follow up tests - Date: (June 2013 labs). Encounter Diagnosis: Hypertension (401.0), Coronary Artery Disease (414.00), Hyperlipidemia, Mixed (272.2), Gerd (530.81), Asthma,Intrinsic (493.11), Dysthymic disorder (300.4), Iron deficiency (280.9) [facility] Office Visit On: 02-Jul-2013 17:01 Encounter Reason: Follow up hospital - Reason for ER visit: note: (symptoms of chest pain/sob ). The patient feels well with minor complaints (chest pain/sob still there, not quite as bad), has decreased energy level and End: 05-Jul-2013 22:38 is sleeping well. Patient has been compliant with instructions. Current medication use: no side effects and compliant with dosing regimen. Patient sleeps 6 hours per night. Note for Follow up hospital : Pt was transfered to [facility] for heart cath and discharged sat 06/30/13.- he had heart cath again at [facility] and one vessel which shows 20percent more blockage than- they took him off lisinopril and niaspan- and put him on amlodpiine- and pressure was running low in hospital 90s- - drinking 40-60 oz water a day ??Encounter Diagnosis: Asthma,Intrinsic (493.11), Fatigue (780.79), Hypertension,benign(401.1), Coronary Artery Disease (414.00), Anemia(285.9), Abnormal Glucose Tolerance Test (790.22) [facility] Office Visit On: 25-Jun-2013 16:43 Encounter Reason: Cough - Cough onset was 2 week(s) ago.Encounter Diagnosis: Cough (786.2), Wheezing (786.07), BRONCHITIS, NOT SPECIFIED ACUTE OR CHRONIC (490.) End: 25-Jun-2013 17:17 [facility] Office Visit On: 02-Apr-2013 16:38 Encounter Reason: Follow up for chronic medical issues - The patient feels well with minor complaints (skin changes), has good energy level and is sleeping well. Patient has been compliant with instructions. Current medi End: 02-Apr-2013 21:30 cation use: no side effects and compliant with dosing regimen. Patient sleeps 6 hours per night. Nutrition: inappropriate diet, supplemental vitamins and low salt diet. The medical issues the patient is following up for include All identified problems below, asthma, blood sugar issues, cardiac issues, gastric reflux, high blood pressure, high cholesterol, osteoarthritis, other (DDD, CTS, BPH) and ashlee pheral vascular disease. Note for Follow up for chronic medical issues: he was supposed to see ruddy for cough - ie chronic cough- -his bronchitis better- he is going to call ruddy and make appt f or chronic- bp is good and mood is better - and concentration seems better with dropping one buspar in am- no gerd , [ADDITIONAL REASON] Follow up, Laboratory Test Results - Date: (03/31/13). , [ADDITIONAL REASON] Skin Problems - The onset of the skin problems has been gradual and they have been occurring in a persistent pattern for years. The course has been increasing. The problem is charac terized as other (thin and easily tears). The spots were first seen on the upper extremity (both arms). There has been no progression. Note for Skin problems: worse recent with onpred Encounter Diagnosis: Abnormal Glucose Tolerance Test (790.22) , Allergic Rhinitis(477.9), Hypertension,benign(401.1), Anemia(285.9), Gerd (530.81), Hyperlipidemia, Mixed (272.2), Asthma,Intrinsic (493.11) [facility] Office Visit On: 26-Mar-2013 16:49 Encounter Reason: Flu Like Symptoms - Symptoms include chills, nasal congestion, postnasal drainage and productive cough, while symptoms do not include fever, body aches, facial pressure or headache. Onset was day(s) ago End: 26-Mar-2013 17:15 . The patient describes this as unchanged. Associated symptoms include fatigue and weakness, while associated symptoms do not include nausea or vomiting. The patient is not currently being treated for this problem.Encounter Diagnosis: Cough (786.2), Chills, Wheezing (786.07), Bronchitis,Acute (466.0) [facility] Phone Encounter On: 05-Mar-2013 13:45 Encounter Diagnosis: Unspecified Diagnosis End: 05-Mar-2013 13:48 [facility] Office Visit On: 25-Dec-2012 15:38 Encounter Reason: Follow up, Laboratory Test Results - Date: (11/2012). Note for Follow up to discuss laboratory test results: no blood in stool -had colonsocopy 2 years ago ok- not giving blood bowels good- , End: 28-Dec-2012 21:53 [ADDITIONAL REASON] Follow up Meds - The patient feels well with minor complaints (still anxiety but improved with the cymbalta and trouble concentrating), has good energy level and is sleeping well. P atient has been compliant with instructions. Current medication use: no side effects and compliant with dosing regimen. Patient sleeps 7 hours per night. Note for Follow up Meds: mod better more up -s leeping better- - concentration still issuue- thinks has add- saw Dr zuniga for his cough and had allergy testing and has some allergy- - now on qvar and advair and has followup with him this month Encounter Diagnosis: Dysthymic disorder (300.4) , Iron deficiency (280.9), Anemia(285.9), Cough (786.2), travel, Hyperlipidemia, Mixed (272.2), Hypertension (401.0) [facility] Office Visit On: 20-Nov-2012 17:30 Encounter Reason: Follow up for chronic medical issues - The patient feels well with minor complaints (cough continues, sometimes brings sputum up- same color), has good energy level and is sleeping well. Patient has bee End: 20-Nov-2012 21:08 n compliant with instructions. Current medication use: no side effects. Patient sleeps 6 hours per night. Nutrition: inappropriate diet, supplemental vitamins and low salt diet. The medical issues the p atient is following up for include All identified problems below, asthma, blood sugar issues, cardiac issues, gastric reflux, high blood pressure, high cholesterol, osteoarthritis, other (DDD, CTS, BPH) and peripheral vascular disease. Note for Follow up for chronic medical issues: rash on legs went away after off pcn- - he saw cardio and had cath and was ok - still intermittent sob- bp is good- saw Mac zuniga allergies tested positive to cats and grass- White says ??has asthma- and put him on adviar and qvar for antihistamine purpose- and he thinks probably some improve in lung sx but still some cough and sob- zoloft giving him lack of desire to have intercourse and not controlling depression- willing to retry cymblataEncounter Diagnosis: Abnormal Glucose Tolerance Test (790.22), Gerd (530.81), Rash (782.1), BRONCHITIS, NOT SPECIFIED ACUTE OR CHRONIC (490.), Tooth pain (525.9), Allergic Rhinitis(477.9), Asthma,Intrinsic (493.11), Hyperlipidemia, Mixed (272.2), Anemia(285.9), Dysthymic disorder (300.4) [facility] Phone Encounter On: 06-Nov-2012 17:25 Encounter Diagnosis: BRONCHITIS, NOT SPECIFIED ACUTE OR CHRONIC (490.) End: 06-Nov-2012 17:30 [facility] Office Visit On: 06-Nov-2012 17:04 Encounter Reason: Cough - Symptoms include cough, wheezing and chills. The cough is described as barky and productive (sometimes, unsure of color). Cough onset was 7 day(s) ago. The cough occurs constantly. Symptoms are described as worsening. End: 06-Nov-2012 17:16 Encounter Diagnosis: Cough (786.2), BRONCHITIS, NOT SPECIFIED ACUTE OR CHRONIC (490.) [facility] Phone Encounter On: 06-Oct-2012 15:10 Encounter Diagnosis: Degenerative Disc Disease - Lumbar (722.52) End: 06-Oct-2012 15:13 [facility] Office Visit On: 25-Sep-2012 15:36 Encounter Reason: Lymphadenopathy - Symptoms include rash and sore throat, while symptoms do not include chest pain, abdominal bloating, fever or malaise. The lymphadenopathy is located in the left submandibular region a End: 25-Sep-2012 17:12 nd in the right submandibular region. Onset followed a sore throat.Encounter Diagnosis: Rash (782.1), Tooth pain (525.9), Allergic Rhinitis(477.9), Cerumen impaction (380.4) [facility] Office Visit On: 22-Sep-2012 14:56 Encounter Reason: Rash - The last clinic visit was 4 day(s) ago. No changes in management were made at the last visit. Symptoms include skin redness, while symptoms do not include pruritus. The symptoms occur constantly. End: 22-Sep-2012 15:22 The patient describes this as moderate in severity. Note for Rash: b/l lower legsEncounter Diagnosis: Rash (782.1) [facility] Office Visit On: 02-Aug-2012 15:50 Encounter Reason: Follow up for chronic medical issues - The patient feels well with minor complaints (cough continues, sometimes brings sputum up- same color), has good energy level and is sleeping well. Patient has bee End: 03-Aug-2012 23:07 n compliant with instructions. Current medication use: no side effects and compliant with dosing regimen. Patient sleeps 6 hours per night. Nutrition: inappropriate diet, supplemental vitamins and low s alt diet. The medical issues the patient is following up for include All identified problems below, asthma, blood sugar issues, cardiac issues, gastric reflux, high blood pressure, high cholesterol, ost eoarthritis, other (DDD, CTS, BPH) and peripheral vascular disease. Note for Follow up for chronic medical issues: still a cough still hasnt made cardio appt now has rash on legs looks like vasulitis, [ADDITIONAL REASON] Follow up, Laboratory Test Results - Date: (07/31/12). Encounter Diagnosis: Abnormal Glucose Tolerance Test (790.22), Backache, unspecified (724.5), Gerd (530.81), Cough (786.2), Rash (782.1), Coronary Artery Disease (414.00), Hypertension,benign(401.1), SCREENING FOR CANCER OF THE PROSTATE (V76.44) [facility] Office Visit On: 30-Jun-2012 14:02 Encounter Reason: Follow up acute care visit - The patient feels the same and has decreased energy level. Patient has been compliant with instructions. Current medication use: no side effects, compliant with dosing regim End: 02-Jul-2012 21:10 en and not considered effective by patient. Patient sleeps 6 hours per night. The medical issues the patient is following up for include All identified problems below and URI. Note for Follow up acute care visit: cough been persistent for months- antiobitoic made no difference- hasnt seen sibilia for a while-ct of chest neg and pfts neg - taking -xyzal singulair- takign flovent - hasnt tried rescue inhaler- - coughing more at night but in day too not as much- doesnt feel sick at this point thinks another issue- taking protonix bid- doesnt feel gerd or brash - when coughs sometimes coughs stuff up- sometimes green- tried off lisinopril no change Encounter Diagnosis: SOB (786.05), Hypertension (401.0), Abnormal Glucose Tolerance Test (790.22), Hyperlipidemia, Mixed (272.2), Cough (786.2) [facility] Visit On: 12-Jun-2012 16:17 Encounter Reason: Sore Throat - Symptoms include sore throat, nasal congestion, postnasal drainage and swollen glands, while symptoms do not include fever or chills. The symptoms are symmetrical. The pain radiates to the End: 12-Jun-2012 22:25 left ear. The patient describes the pain as burning. Onset was sudden 3 day(s) ago. The symptoms occur constantly. The patient describes this as unchanged. Associated symptoms include ear pain, cough a nd fatigue, while associated symptoms do not include headache, facial pain, nausea or vomiting. The patient is not currently being treated for this problem. Note for Sore throat: signfiicant sinus dra holguin - he has been using flonase and singulair-not feeling dizzy with low bp he has had this beofre -no new meds not drinking enough fluids today though he admits Encounter Diagnosis: Acute sinusitis, unspecified (461.9) [facility] Office Visit On: 18-Jan-2012 13:18 Encounter Diagnosis: Cough (786.2) End: 18-Jan-2012 22:52 [facility] Office Visit On: 17-Jan-2012 15:49 Encounter Reason: Follow up for chronic medical issues - The patient feels well with minor complaints (cough continues, sometimes brings stuff up not sure on color), has good energy level and is sleeping well. Patient ramirez End: 17-Jan-2012 21:30 s been compliant with instructions. Current medication use: no side effects and compliant with dosing regimen. Patient sleeps 6 hours per night. Nutrition: inappropriate diet, supplemental vitamins and low salt diet. The medical issues the patient is following up for include All identified problems below, asthma, blood sugar issues, cardiac issues, gastric reflux, high blood pressure, high cholesterol , osteoarthritis, other (DDD, CTS, BPH) and peripheral vascular disease. Note for Follow up for chronic medical issues: weight down 12 pounds- and bp is good- sleeping ok - mood ok but overwhelmed a bit at work, [ADDITIONAL REASON] Cough - The onset of the cough has been gradual and has been occurring in a persistent pattern for 3 months. The course has been constant. The cough is characterized as productive o f mucoid sputum. The amount of sputum produced is scanty. The cough occurs all the time. The symptoms are aggravated by supine posture and exercise (when rolls on side at hs or leans over), but not by m eals. The symptoms have been associated with wheezing (sometimes), while the symptoms have not been associated with chest pain, dyspnea, fever, headache, hoarseness, runny nose or sore throat. Note for Cough: Pt thinks this may somehow be related to his c-pap.- cough comes and goes not there all the time- thinks may drain from sinuses and taking his antihistamine- didnt do last cx- he wonders about cpap- he does have humidifier and cleans routinely- Encounter Diagnosis: Abnormal Glucose Tolerance Test (790.22), Backache, unspecified (724.5), Dysthymic disorder (300.4), Cough (786.2), Hyperlipidemia, Mixed (272.2), Gerd (530.81), Hypertension (401.0), Obstructive sleep apnea (327.23), Asthma,Intrinsic (493.11), Colon Polyps, History of (V12.72), Need for pneumococcal vaccination (V03.82) [facility] Office Visit On: 15-Oct-2011 9:03 Encounter Reason: Cough - The onset of the cough has been gradual and has been occurring in a persistent pattern for 1 month. The course has been constant. The cough is characterized as productive of mucopurulent sputum End: 17-Oct-2011 21:36 (green). The amount of sputum produced is less than a half a cup per day. The cough occurs all the time. The symptoms are aggravated by supine posture, but not by meals or exercise. The symptoms have be en associated with dyspnea (on exertion), runny nose and sore throat, while the symptoms have not been associated with chest pain, fever, headache, hoarseness or wheezing. Note for Cough: taking xyzal daily and flonase - worse at night- on protonix no gerd - occ wheezy and sob- sometimes green in am- but better since on xyzal daily- legs swelling since on higher dose of ranexa, [ADDITIONAL REASON] Edema - Note for Edema: has noticed increasing edema since increase ranezxa - no chest pain but with cough sob- leg swelling worse as day goes on better in am- no orthopnea Encounter Diagnosis: Cough (786.2), Allergic Rhinitis(477.9), Swelling of limb (729.81) [facility] Office Visit On: 27-Sep-2011 16:36 Encounter Reason: Follow up for chronic medical issues - The patient feels well with no complaints, has good energy level and is sleeping well. Patient has been compliant with instructions. Current medication use: no josé luis End: 18-Oct-2011 9:04 e effects and compliant with dosing regimen. Patient sleeps 6 hours per night. Nutrition: inappropriate diet, supplemental vitamins and low salt diet. The medical issues the patient is following up for include All identified problems below, asthma, blood sugar issues, cardiac issues, gastric reflux, high blood pressure, high cholesterol, osteoarthritis, other (DDD, CTS, BPH) and peripheral vascular di sease. Note for Follow up for chronic medical issues: No routine labs done for today.- heart doing better gerd better and mood better in general- -he is stillhaving issues with allergyand cough again prod sputum yellow - no fever maybe mild ssob- no chest pain- sx for last week orso- urinating okEncounter Diagnosis: Abnormal Glucose Tolerance Test (790.22), BPH with Urin. Obst (600.01), Hypertension (401.0), Gerd (530.81), Dysthymic disorder (300.4), Coronary Artery Disease (414.00), Allergic Rhinitis(477.9), Bronchitis,Acute (466.0) [facility] Office Visit On: 09-Aug-2011 16:07 Encounter Reason: Nicole - The nicole have been present for 3 days. The nicole are located on the back. The nicole were caused by electrical contact (radiation machine). The skin at the site of the nicole is red and dry. Ther End: 10-Aug-2011 8:14 e has been no associated dyspnea, pain or syncope. Note for Nicole: had stent to lad- was prolonged procedure has nonpainful minimally itchy area on back- 2-3 weeks ago- just wanted to check itEncounter Diagnosis: BPH with Urin. Obst (600.01), Coronary Artery Disease (414.00), Rash (782.1) [facility] Visit On: 14-Jun-2011 17:09 Encounter Reason: Follow up for chronic medical issues - The patient feels well with minor complaints (nasal congestion, allergies flared- hx of allergic rhinitis), has good energy level and is sleeping well. Patient has End: 20-Jun-2011 21:52 been compliant with instructions. Current medication use: no side effects and compliant with dosing regimen. Patient sleeps 6 hours per night. Nutrition: inappropriate diet, supplemental vitamins and l ow salt diet. The medical issues the patient is following up for include All identified problems below, asthma, blood sugar issues, cardiac issues, gastric reflux, high blood pressure, high cholesterol, osteoarthritis, other (DDD, CTS, BPH) and peripheral vascular disease. Note for Follow up for chronic medical issues: had stresss test 1 year ago- sees Dr Veliz sees him in [place]- for cardio - last cath couple while ago Encounter Diagnosis: Abnormal Glucose Tolerance Test (790.22), Hyperlipidemia, Mixed (272.2), Gerd (530.81), Hypertension (401.0), Asthma,Intrinsic (493.11), Osteoarthritis, Unspecified Whether Generalized or Localized, Involving other Specified Sites (715.98), SCREENING FOR CANCER OF THE PROSTATE (V76.44) [facility] Office Visit On: 08-Mar-2011 16:48 Encounter Reason: Follow up for chronic medical issues - The patient feels well with no complaints, has good energy level and is sleeping well. Patient has been compliant with instructions. Current medication use: no josé luis End: 08-Mar-2011 17:53 e effects and compliant with dosing regimen. Patient sleeps 6 hours per night. Nutrition: inappropriate diet, supplemental vitamins and low salt diet. The medical issues the patient is following up for include All identified problems below, asthma, blood sugar issues, cardiac issues, gastric reflux, high blood pressure, high cholesterol, osteoarthritis, other (DDD, CTS, BPH) and peripheral vascular di sease. Note for Follow up for chronic medical issues: Currently on Z-phuc for URI-- he was taking nystatin for his yeast but didnt feel it helped but got diflucan - he also taking zithromax and throat feels better- told him to take align daily to try to prevent cdiff and yeast- Dr Signs is getting some lab and lung function study- no gerd rotuinely- bp is good- feeling overwhelmed with job- Encounter Diagnosis: Abnormal Glucose Tolerance Test (790.22), Allergic Rhinitis(477.9), Backache, unspecified (724.5), Dysthymic disorder (300.4), Gerd (530.81), Hyperlipidemia, Mixed (272.2), Hypertension (401.0), Asthma,Intrinsic (493.11), recurrent uri, SCREENING FOR CANCER OF THE PROSTATE (V76.44) [facility] Office Visit On: 25-Feb-2011 7:05 Encounter Reason: Sore Throat - The last clinic visit was 2 day(s) ago. No changes in management were made at the last visit. Symptoms include sore throat, dysphagia, swollen glands (AND YEAST), fever and chills. The sym End: 25-Feb-2011 7:40 ptoms are on the left side more than the right. The pain radiates to the left ear. The patient describes the pain as sharp.Encounter Diagnosis: Acute Pharyngitis (462.) [facility] Office Visit On: 02-Feb-2011 15:49 Encounter Reason: Cough - The onset of the cough has been gradual. The cough is characterized as productive of mucoid sputum. The amount of sputum produced is less than a half a cup per day. The cough occurs all the morena End: 02-Feb-2011 16:32 e. The symptoms have been associated with runny nose, while the symptoms have not been associated with fever, headache or hoarseness.Encounter Diagnosis: PNEUMONIA D/T STREPTOCOCCUS GROUP A (482.31), Cough (786.2), Wheezing (786.07) [facility] Office Visit On: 25-Jan-2011 12:52 Encounter Diagnosis: Cough (786.2) End: 25-Jan-2011 12:53 [facility] Office Visit On: 18-Jan-2011 17:12 Encounter Reason: Follow up acute care visit - The patient feels the same, has decreased energy level and worsening. Patient has been compliant with instructions. Current medication use: no side effects and compliant wit End: 19-Jan-2011 22:47 h dosing regimen. Patient sleeps 6 hours per night. Nutrition: inappropriate diet and supplemental vitamins. The medical issues the patient is following up for include All identified problems below and URI (cough, fatigue). Note for Follow up acute care visit: Pt was in on 12/07/10 for the same thing. Has been taking Mucinex DM otc which hasnt helped with his symtoms.- dry unless takes mucinex- no i mprove at all- thinks worse- breathing is worse- no fever but has sweats- doesnt know what color sputum is- lots of mold at home found in basementcough doenst get worse when has gerd Encounter Diagnosis: Cough (786.2) [facility] Office Visit On: 07-Dec-2010 16:30 Encounter Reason: Follow up for chronic medical issues - The patient feels well with minor complaints (cough), has decreased energy level and is sleeping well. Patient has been compliant with instructions. Current medica End: 08-Dec-2010 8:56 tion use: no side effects and compliant with dosing regimen. Patient sleeps 6 hours per night. Nutrition: inappropriate diet, supplemental vitamins and low salt diet. The medical issues the patient is f ollowing up for include All identified problems below, asthma, blood sugar issues, cardiac issues, gastric reflux, high blood pressure, high cholesterol, osteoarthritis, other (DDD, CTS, BPH) and periph eral vascular disease. Note for Follow up for chronic medical issues: bp is good weight is stable- feling anxious with wifes medical issues- he was tring to get off remeron but couldnt becuase of the anxiety- abd pain is gone he thinks was ibs- once bev regulated was gone- but if gets constipated then occurs- no gerd- -, [ADDITIONAL REASON] Cough - The onset of the cough has been 3 weeks ago. The cough is characterized as productive of mucoid sputum. The amount of sputum produced is scanty. The cough occurs mainly at night. The symptoms are aggravated by supine posture and meals, but not by exercise. The symptoms hav e been associated with dyspnea, hoarseness and sore throat, while the symptoms have not been associated with fever, headache, runny nose or wheezing. Note for Cough : pt not sure on color cause he swa llows it.- had coughbefore but it had went away - this is new thing- - he feels like breathing ok but no stamina- Encounter Diagnosis: Need for prophylactic vaccination and inoculation against influenza (V04.81), Abnormal Glucose Tolerance Test (790.22), Gerd (530.81), Hyperlipidemia, Mixed (272.2), Abdominal Pain,RLQ (789.03), Fatigue (780.79), Abdominal Pain,General (789.07), Hypertension,benign(401.1), Acute sinusitis, unspecified (461.9) [facility] Office Visit On: 05-Nov-2010 10:31 Encounter Reason: Upper Respiratory Infection (URI) - The last clinic visit was 1 day(s) ago. Symptoms include nasal congestion, sore throat, productive cough and general malaise, while symptoms do not include runny nose End: 05-Nov-2010 14:51 , hoarseness, dry cough, wheezing, fever or chills. Onset was sudden 1 day(s) ago. The symptoms occur constantly. The patient describes this as moderate in severity and unchanged. Symptoms are not exace rbated by activity or smoking. Symptoms are not relieved by cool environment or cough suppressants. Associated symptoms include ear pain, headache, swollen lymph nodes and colored sputum, while associat ed symptoms do not include ear plugging, facial pain, facial pressure, shortness of breath, clear sputum, nausea, vomiting or diarrhea. The patient is not currently being treated for this problem.Encounter Diagnosis: Acute Pharyngitis (462.), Cerumen impaction (380.4), Acute sinusitis, unspecified (461.9) [facility] Phone Encounter On: 09-Oct-2010 14:17 Encounter Diagnosis: Abdominal Pain,RLQ (789.03) End: 09-Oct-2010 14:23 [facility] Phone Encounter On: 06-Oct-2010 11:11 Encounter Diagnosis: ABNORMAL FINDINGS NEC (796.9), Abdominal Pain,RLQ (789.03) End: 06-Oct-2010 11:18 [facility] Office Visit On: 05-Oct-2010 17:10 Encounter Reason: Flank Pain - Symptoms include flank pain, back pain and abdominal pain, while symptoms do not include dysuria, hematuria, fever, vomiting or nausea. The pain is located in the right flank. The pain radi End: 06-Oct-2010 8:12 ates to the abdomen (right lower). The patient describes the pain as sharp and aching. Onset was sudden day(s) ago (3 dsys ago). The symptoms occur constantly. The patient describes symptoms as moderate in severity and unchanged. Symptoms are relieved by reduced activity (and aleve). Associated symptoms do not include groin pain, leg pain, constipation, diarrhea, chills or fatigue. Current treatment i ncludes muscle relaxants (skelaxin and aleve). Note for Flank Pain: hx of stone - had before no urinary sx but gerd with this- and taking aleve but gerd prior- Encounter Diagnosis: Gerd (530.81), Abdominal Pain,RLQ (789.03) [facility] Office Visit On: 14-Sep-2010 16:09 Encounter Reason: Follow up for chronic medical issues - The patient feels well with no complaints, has decreased energy level (in the last few months) and is sleeping well. Patient has been compliant with instructions. End: 16-Sep-2010 16:55 Current medication use: no side effects and compliant with dosing regimen. Patient sleeps 5 (broken up) hours per night. Nutrition: inappropriate diet, supplemental vitamins and low salt diet. The medic al issues the patient is following up for include All identified problems below, asthma, blood sugar issues, cardiac issues, gastric reflux, high blood pressure, high cholesterol, osteoarthritis, other (DDD, CTS, BPH) and peripheral vascular disease. Note for Follow up for chronic medical issues: he was dx with sleep apnea and now on cpap- he tried off remeron- and his concentration and memory got w orse- and didnt help fatigue to be off it- just had stress test and ok- he has lost weight was up to 266- having to use proventil more freq- 1-2 times a week and taking flovent routinely, [ADDITIONAL REASON] Follow up, Laboratory Test Results - Date: (09/12/10). Encounter Diagnosis: Abnormal Glucose Tolerance Test (790.22), Asthma,Intrinsic (493.11), Hyperlipidemia, Mixed (272.2), Hypertension,benign(401.1), Obstructive sleep apnea (327.23), Fatigue (780.79), Coronary Artery Disease (414.00) [facility] Office Visit On: 16-Jun-2010 15:42 Encounter Reason: Follow up for chronic medical issues - The patient feels well with no complaints, has good energy level and is sleeping well. Patient has been compliant with instructions. Current medication use: no josé luis End: 16-Jun-2010 23:11 e effects and compliant with dosing regimen. Patient sleeps 5 (broken up) hours per night. Nutrition: inappropriate diet, supplemental vitamins and low salt diet. The medical issues the patient is follo wing up for include All identified problems below, asthma, blood sugar issues, cardiac issues, gastric reflux, high blood pressure, high cholesterol, osteoarthritis, other (DDD, CTS, BPH) and peripheral vascular disease. Note for Follow up for chronic medical issues: had colonsocopy- by ara layton couple polyps- and repeat 5 years- saw gonzales- said enlarged prostate but not enough to justify surgery- he did open up urine flow and helps temporailry- he offered him a self dilator but he is holding off now- bp is good- and sugar up a bit- bronchial infection better- breathing has been goodEncounter Diagnosis: Abnormal Glucose Tolerance Test (790.22), Colon Polyps, History of (V12.72), Hypertension,benign(401.1), BPH with Urin. Obst (600.01), Asthma,Intrinsic (493.11), Dysthymic disorder (300.4), Hyperlipidemia, Mixed (272.2), Abdominal Pain,General (789.07), Coronary Artery Disease (414.00), Fatigue (780.79) [facility] Office Visit On: 05-Jun-2010 15:01 Encounter Reason: Cough - The onset of the cough has been gradual and has been occurring in a persistent pattern for weeks. The course has been increasing. The cough is characterized as productive of mucopurulent sputum End: 05-Jun-2010 15:37 (green). The amount of sputum produced is less than a half a cup per day. The cough occurs all the time. The symptoms are aggravated by supine posture and meals, but not by exercise. There has been no a ssociated chest pain, dyspnea, fever, headache, hoarseness, runny nose, sore throat or wheezing. Note for Cough: always ssinus issues but this is not going away- some draiange- started clear but last few weeks now discoloredEncounter Diagnosis: Bronchitis,Acute (466.0) [facility] Office Visit On: 16-Mar-2010 16:33 Encounter Reason: Follow up for chronic medical issues - The patient feels well with minor complaints (believes he has a kidney stone- has hx of these and feels the same as before- left side- not a constant pain, off and End: 16-Mar-2010 22:14 on, no bladder symptoms or hematuria.), has good energy level and is sleeping well. Patient has been compliant with instructions. Current medication use: no side effects and compliant with dosing regim en. Patient sleeps 5 (broken up) hours per night. Nutrition: inappropriate diet, supplemental vitamins and low salt diet. The medical issues the patient is following up for include All identified proble ms below, asthma, blood sugar issues, cardiac issues, gastric reflux, high blood pressure, high cholesterol, osteoarthritis, other (DDD, CTS, BPH) and peripheral vascular disease. Note for Follow up fo r chronic medical issues: heis gaining weight he thinks is the remeron- he doesnt want to quit becuase it works so going to work on diet and exercise- bpp is good - no gerd lately- sugar stable- has ap pt with cardio in mar- appt tomorrow with [facility]- which is a followup -pain in abd comes and goes- not present today-- more irritating- - feels like a catch in side- left upper kidney then goes down- [facility] to [facility]- -his breathing has been comign and going - depends on weight and how he is feeling that day- not bad enough to do more with though- nomore cough or gerd- , [ADDITIONAL REASON] Follow up, Laboratory Test Results - Date: (03/07/10). Encounter Diagnosis: Abnormal Glucose Tolerance Test (790.22), Kidney stone (592.0), Acute sinusitis, unspecified (461.9), Cough (786.2), Dizziness(780.4), Wheezing (786.07) , BRONCHITIS, NOT SPECIFIED ACUTE OR CHRONIC (490.), Peripheral vascular disease (443.9), Asthma,Intrinsic (493.11), Hyperlipidemia, Mixed (272.2), Hypertension (401.0), Abdominal Pain,General (789.07) [facility] Office Visit On: 23-Feb-2010 16:51 Encounter Reason: Cold Symptoms - The last clinic visit was 1 month(s) ago. Management changes made at the last visit include adding medication (antibiotic). Symptoms include runny nose and dry cough. Onset was 9 day(s) End: 23-Feb-2010 17:24 ago. The symptoms occur constantly.Encounter Diagnosis: Sinusitis,chronic (473.9), Allergic Rhinitis(477.9), BRONCHITIS, NOT SPECIFIED ACUTE OR CHRONIC (490.), Cough (786.2) [facility] Office Visit On: 26-Jan-2010 16:17 Encounter Reason: Sinusitis/ - The duration of the symptoms are 1 1/2 months The course has been constant. The sinusitis/ has no relieving factors. Associated features include The symptoms have been associated with cough End: 26-Jan-2010 17:00 , ear pain, nasal discharge/stuffy nose and sinus pain. allergies.Encounter Diagnosis: Acute sinusitis, unspecified (461.9), Wheezing (786.07) [facility] Office Visit On: 01-Dec-2009 16:20 Encounter Reason: Follow up for chronic medical issues - The patient feels well with no complaints, has good energy level and is sleeping well. Patient has been compliant with instructions. Current medication use: no josé luis End: 02-Dec-2009 8:13 e effects and compliant with dosing regimen. Patient sleeps 5 (broken up) hours per night. Nutrition: inappropriate diet, supplemental vitamins and low salt diet. The medical issues the patient is follo wing up for include All identified problems below, asthma, blood sugar issues, cardiac issues, gastric reflux, high blood pressure, high cholesterol, osteoarthritis, other (DDD, CTS, BPH) and peripheral vascular disease. Note for Follow up for chronic medical issues: he saw a Dr Barker a psychiatrist in [place]- he thought mostly anxiety so left him on celexa and added remeron- didnt think he has ad d- - weight went up- alot of stress with his wifes illness- his bp is good- other than the stress he is doing pretty well- he didnt get labs so encourage him to do so- no gerd- allergies better with xy zal- saw urologist did a scope and helpeds some but doesnt feel ready for sx yet- on his prostateEncounter Diagnosis: Abnormal Glucose Tolerance Test (790.22), Hyperlipidemia, Mixed (272.2), Dysthymic disorder (300.4), BPH with Urin. Obst (600.01) , Hypertension,benign(401.1), Coronary Artery Disease (414.00), Allergic Rhinitis(477.9) [facility] Annotation/Addendum On: 07-Nov-2009 15:28 [facility] End: 07-Nov-2009 15:29 Office Visit On: 18-Aug-2009 15:43 Encounter Reason: Follow up for chronic medical issues - The patient feels well with no complaints ,has good energy level and is sleeping well. Patient has been compliant with instructions. Current medication use: no josé luis End: 18-Aug-2009 16:31 e effects and compliant with dosing regimen. Patient sleeps 5 (broken up) hours per night. Nutrition: inappropriate diet ,supplemental vitamins and low salt diet. The medical issues the patient is follo wing up for include All identified problems below ,asthma ,blood sugar issues ,cardiac issues ,gastric reflux ,high blood pressure ,high cholesterol ,osteoarthritis ,other (DDD, CTS, BPH) and peripheral vascular disease. blood pressure range : (100's/60's). Note for Follow up for chronic medical issues: he is losing weigth and trying- but stillnot exercising so disucssed needing daily exercise- his prostate is enlarged so gave him meds- if doesnt work then surgery- -was told bladder looked good on scope- he was retaining urine- - asthma fine as long as not in heat/humidity- - not using the albuter ol- still gerd- so he is going back to [facility]- mood good with celexa-less tense, [ADDITIONAL REASON] Follow up, Laboratory Test Results - Date: (08/16/09). Encounter Diagnosis: Abnormal Glucose Tolerance Test (790.22), Allergic Rhinitis(477.9), PROSTATIC HYPERTROPHY (600.), Backache, unspecified (724.5), Dysthymic disorder (300.4), Gerd (530.81), Asthma,Intrinsic (493.11), Hyperlipidemia, Mixed (272.2), HYPERGLYCEMIA, NOS (790.6) [facility] Office Visit On: 21-Apr-2009 17:09 Encounter Reason: Follow up for chronic medical issues - The patient feels well with no complaints ,has good energy level and is sleeping well. Patient has been compliant with instructions. Current medication use: no josé luis End: 21-Apr-2009 22:10 e effects and compliant with dosing regimen. Patient sleeps 5 hours per night. Nutrition: inappropriate diet ,supplemental vitamins and low salt diet. The medical issues the patient is following up for include All identified problems below ,asthma ,blood sugar issues ,cardiac issues ,gastric reflux ,high blood pressure ,high cholesterol ,osteoarthritis ,other (DDD, CTS, BPH) and peripheral vascular di sease. Note for Follow up for chronic medical issues: he decided not to see psychiatrist just said he is going to deal with the issues- - -- he isnt having dizzy- gastric emptying normal- is seeingmur johnie next week -stil having reflux- had egd last nov- flovent working well- using proventil- not even weekly, [ADDITIONAL REASON] Follow up, Diagnostic Procedure Results - Diagnostic tests include other (gastric emptying study). Date: (03/11/09). Encounter Diagnosis: Asthma,Intrinsic (493.11), PROSTATIC HYPERTROPHY (600.), Dysthymic disorder (300.4), Gerd (530.81), Allergic Rhinitis(477.9), Abnormal Glucose Tolerance Test (790.22), Hyperlipidemia, Mixed (272.2) [facility] Office Visit On: 08-Apr-2009 9:53 Encounter Reason: Cough - The onset of the cough has been 2 weeks ago. The cough is characterized as dry. The amount of sputum produced is scanty. The cough occurs all the time. The symptoms are aggravated by supine post End: 08-Apr-2009 10:19 ure and particular position, but not by meals. The symptoms have been associated with fever and hoarseness, while the symptoms have not been associated with runny nose ,sore throat or wheezing. Encounter Diagnosis: Acute sinusitis, unspecified (461.9), Cough (786.2) [facility] Office Visit On: 21-Jan-2009 16:24 Encounter Reason: Follow up for chronic medical issues - The medical issues the patient is following up for include All identified problems below ,asthma ,blood sugar issues ,cardiac issues ,gastric reflux ,high blood pr End: 22-Jan-2009 22:56 essure ,high cholesterol ,osteoarthritis ,other (DDD, CTS, BPH) and peripheral vascular disease. Note for Follow up for chronic medical issues: last vomit yesterday- feeling better not perfect- bp low - dizzy coming and going for a while- this is different- from previous dizzy- - happens when moves head- or change position- - no spinning just lightheaded-- weaned off the welbutrin- less grinding of t eeth- had carpal tunnel surgry done on left- - still issues with focusing- and racing thoughts - [facility] has been able to contorl mood -- has bipolar in family-- he saw Ara irwin- was neg- but still maggie t of reflux and cough if lays down- and burning in throat-, [ADDITIONAL REASON] Dizziness/ - The onset of the dizziness/ has been acute and has been occurring i n an intermittent pattern for 3 months. The course has been recurrent. The dizziness/ is characterized as lightheadedness. The dizziness/ is precipitated by position change. There has been no associated diplopia ,ear infection ,fever ,headache ,syncope or tinnitus. Past medical history : diabetes (abn gtt) and heart disease. Encounter Diagnosis: Abnormal Glucose Tolerance Test (790.22), Asthma,Intrinsic (493.11), Gerd (530.81), Dysthymic disorder (300.4), Dizziness(780.4), BPH with Urin. Obst (600.01), Hyperlipidemia, Mixed (272.2) [facility] Phone Encounter On: 30-Dec-2008 16:47 [facility] End: 30-Dec-2008 16:49 Office Visit On: 22-Oct-2008 16:04 Encounter Reason: Follow up Meds - The patient feels well with minor complaints (still anxiety) ,has good energy level and is sleeping poorly. Patient has been compliant with instructions. Current medication use: no side End: 22-Oct-2008 23:01 effects and compliant with dosing regimen. Patient sleeps 5 hours per night. Note for Follow up Meds: f/u on starting celexa and increasing the crestor to 30mg.-- he doesnt feel any worse getting mari n on welbutrin - but still some anxiety on xcelexa- not alot of sexual dysfucntion-- bp ok- tolerated higher dose of crestor without problem- does have appt with ara for bowelsEncounter Diagnosis: Backache, unspecified (724.5), Dysthymic disorder (300.4), Allergic Rhinitis(477.9), Abnormal Glucose Tolerance Test (790.22), Hypertension (401.0), Hyperlipidemia, Mixed (272.2), BPH with Urin. Obst (600.01) [facility] Historical Summary On: 02-Sep-2008 10:48 [facility] End: 02-Sep-2008 10:52 Office Visit On: 12-Aug-2008 16:10 Encounter Reason: Follow up for chronic medical issues - The patient feels well with minor complaints ,has good energy level and is sleeping well. Patient has been compliant with instructions. Current medication use: no End: 12-Aug-2008 20:51 side effects and compliant with dosing regimen. Patient sleeps 6 hours per night. Nutrition: inappropriate diet and supplemental vitamins. The medical issues the patient is following up for include All identified problems below ,blood sugar issues ,high blood pressure and high cholesterol. Note for Follow up for chronic medical issues: weight down and he is trying- his sugar and bp are good- - the a sthma and breathing ok and so are allergies- we increased his flomax and this worked good for 2 weeks - not quite as good now, [ADDITIONAL REASON] Anxiety - The onset of the anxiety has been gradual and has been occurring in an intermittent pattern for 2 months. The course has been recurrent. There are no specific phobias. There were no precipitating factors. Note for Anxiety: said it is from the jaw tension and has woke up in am with pieces of his teeth in his mouth from grinding them- he went to er two mos ago with what he thought was angina- - and had heart cath and was vasospams--so they increased his nitroglycerin- a nd atenolol and decreased lisinopril- - chest feeling back to his baseline now- Encounter Diagnosis: Abnormal Glucose Tolerance Test (790.22), Colon Polyps, History of (V12.72), HYPERGLYCEMIA, NOS (790.6), Dysthymic disorder (300.4), BPH with Urin. Obst (600.01), Hypertension (401.0), Hyperlipidemia, Mixed (272.2), coronary vasospasm, Allergic Rhinitis(477.9), Gerd (530.81), excoriation, TESTICULAR SWELLING, NOS (608.89) [facility] Historical Summary On: 31-Jul-2008 16:55 [facility] End: 31-Jul-2008 17:00 Office Visit On: 29-Apr-2008 17:09 Encounter Reason: Follow up for chronic medical issues - The patient feels well with minor complaints (heating at work bothering him- thinks needs new inhaler) ,has good energy level and is sleeping well. Patient has bee End: 29-Apr-2008 20:58 n compliant with instructions. Current medication use: no side effects and compliant with dosing regimen. Patient sleeps 6 hours per night. Nutrition: inappropriate diet and supplemental vitamins. The m edical issues the patient is following up for include All identified problems below ,asthma ,cardiac issues (heart dz) ,depression ,high blood pressure ,high cholesterol ,osteoarthritis ,other (arhtralg ia, myalgia, cad, allergic rhinitis, bph, ddd) and peripheral vascular disease. Note for Follow up for chronic medical issues: every time gets warm outside he notes the asthma flares-- and humid- when cools down he feels better and when air is dryer- when taking asmanexnot sure usign right-- he thinks singulair helps his allergies/sinus and wants to stay on- rash on legs better- mood is good , [ADDITIONAL REASON] Follow up, Laboratory Test Results - Date: (04/09/08). Encounter Diagnosis: Abnormal Glucose Tolerance Test (790.22), Asthma,Intrinsic (493.11), Allergic Rhinitis(477.9), BPH with Urin. Obst (600.01), Backache, unspecified (724.5), Dysthymic disorder (300.4), Hypertension,benign(401.1), Hyperlipidemia, Mixed (272.2) [facility] Office Visit On: 19-Feb-2008 15:42 Encounter Reason: Sinus pain - The onset of the pain has been acute and has been occurring in a persistent pattern for 1 weeks. The course has been constant. The pain is characterized as a pressure sensation. The pain is End: 19-Feb-2008 16:31 experienced at night after falling asleep and any time of the day (no diurnal variation). The pain is described as being located in the frontal area. The symptoms have been associated with eye pain ,na gwyn discharge/stuffy nose ,sinusitis in the past and tenderness over sinuses, while the symptoms have not been associated with ear pain ,fever or neck stiffness. Encounter Diagnosis: Acute sinusitis, unspecified (461.9), Cough (786.2), Wheezing (786.07) [facility] Office Visit On: 07-Feb-2008 9:42 Encounter Reason: Rash - The onset of the rash has been sudden and has been occurring in a persistent pattern for 2 weeks. The course has been decreasing. The rash is characterized as red and flat. The rash was first see End: 08-Feb-2008 23:08 n on the lower extremity (right leg). There has been no progression. There has been associated itching, while there has been no chills ,fever ,loss of sensation or pain. Note for Rash: initially itche d-- initially he scratched the area then thought got infected so was using topical neosporin- getting some better there now- different spot right anterior martinez that has slight scale and maculeEncounter Diagnosis: ecxematous dermatitis, excoriation [facility] Office Visit On: 29-Jan-2008 16:02 Encounter Reason: Follow up for chronic medical issues - The patient feels well with minor complaints ,has good energy level and is sleeping well. Patient has been compliant with instructions. Current medication use: no End: 29-Jan-2008 22:09 side effects and compliant with dosing regimen. Patient sleeps 5 hours per night. Impact of disease: no overall impact. Nutrition: inappropriate diet and supplemental vitamins. The medical issues the monica angelo is following up for include All identified problems below ,asthma ,cardiac issues ,high blood pressure ,high cholesterol ,kidney problems and peripheral vascular disease. blood pressure range : (70). Note for Follow up for chronic medical issues: didnt take benefiber-- he thinks oats are helping some -- encourage--try fiber- -- the bp is good- dizzy comes and goes- -- quit taking the spiri va--- he stopped it and his throat issues went away- his breathing is the same-- his mood is ok- he is taking welbutrin 450 qod- because he is having tenismus- this got better with this regimen - 450 alt 300, [ADDITIONAL REASON] Follow up, Laboratory Test Results - Date: (see copies,then need scanned.). Encounter Diagnosis: Asthma,Intrinsic (493.11), Hyperlipidemia, Mixed (272.2), Hypertension,benign(401.1), hyperglycemia, Dysthymic disorder (300.4) [facility] Office Visit On: 18-Oct-2007 16:19 Encounter Reason: Follow up Meds - The patient feels well with no complaints ,has good energy level and is sleeping well. Patient has been compliant with instructions. Current medication use: no side effects and complian End: 19-Oct-2007 21:46 t with dosing regimen. Patient sleeps 6 hours per night. Note for Follow up Meds: thinks spiriva has helped breathing but froggy sometimes and still some burning in the tongue-- levaquin no help-- he thinks the yeast medicine helped the burning of the tongue-- Encounter Diagnosis: Hyperlipidemia, Mixed (272.2), Dysthymic disorder (300.4), Colon Polyps, History of (V12.72), abdominal bloating, Hypertension,benign(401.1), Dizziness(780.4) [facility] Office Visit On: 08-Aug-2007 16:02 Encounter Reason: Follow up for chronic medical issues - The patient feels well with minor complaints (bloating and mouth nicole from inhaler) ,has good energy level and is sleeping well. Patient has been compliant with i End: 08-Aug-2007 22:39 nstructions. Current medication use: experiencing side effects (mouth/throat nicole from asmanex) and compliant with dosing regimen. The medical issues the patient is following up for include All identif ied problems below ,asthma ,depression ,high blood pressure ,high cholesterol ,osteoarthritis ,other (allergic rhinitis, cad, ddd, bph) and peripheral vascular disease. Note for Follow up for chronic m edical issues: had to stop asmanex-- made mouth burn- -- -- saw Zita-- for this-- ended up antiobitoic made him better -- retried the asmanex- and his mouth and throat burned again-- acid irritates - it better now-- comes and goes- he is having trouble concentrating wiht all the stress at home and would like to increase his welbutrin-- breathing a little worse off the asmanex-- realized that the f timo is helping especially when he tried withoutEncounter Diagnosis: Allergic Rhinitis(477.9), Dysthymic disorder (300.4), Hyperlipidemia, Mixed (272.2), BPH with Urin. Obst (600.01), Hypertension (401.0), tongue burning, Asthma,Intrinsic (493.11) , abdominal bloating [facility] Office Visit On: 08-May-2007 15:42 Encounter Reason: Follow up for chronic medical issues - The patient feels well with no complaints. Patient has been compliant with instructions. Current medication use: no side effects. Patient sleeps 6 hours per night. End: 08-May-2007 16:39 Nutrition: balanced diet. The medical issues the patient is following up for include All identified problems below ,asthma ,high blood pressure ,high cholesterol ,osteoarthritis ,other (DDD) and periph eral vascular disease. Note for Follow up for chronic medical issues: n change in area under axilla-- no night sweats-- weight increasing-- no more passout spells or lightheadedness-- he feels he is h aving some issues with prostate- he has more urgency-- not increased nocturia-- cant tell if emptying bladderEncounter Diagnosis: BPH with Urin. Obst (600.01), Hypertension,benign(401.1), Hyperlipidemia, Mixed (272.2), Dysthymic disorder (300.4), Asthma,Intrinsic (493.11), axillary mass [facility] Office Visit On: 20-Apr-2007 12:23 Encounter Reason: Dizziness/ - The onset of the dizziness/ has been gradual and has been occurring for 10 minutes. The course has been decreasing. The dizziness/ is characterized as lightheadedness and feeling in the hea End: 20-Apr-2007 22:18 d. The dizziness/ is relieved by sitting. Note for Dizziness/: Pt states he was at work when this episode happened, he was working and all the sudden got real dizzy, lightheaded, hot. Maybe some SOB, no chest pain. Pt does have 1 stent placement-- this was after the had the flu-- he went back to work-- was standing there talking and felt warm all over and got sweatyy-- he was breaking out in sweat-- was dizzy with no vertigo-- he sat down on the floor and felt better-- lasted about 5 min-- he was told he looked ferrell-- he wasnt sob and no discomfort in chest or anywhere-- he didnt feel he was still dehydrated he was back to eating and drinking well- he hasnt had any more spells since-- last stress more than a year ago-- carotid dopplers less than a year ago and were neg on review of old records --- Encounter Diagnosis: lymphadenopathy, near syncope, Eczema (692.9) [facility] Office Visit On: 27-Mar-2007 15:32 Encounter Reason: Cough - The onset of the cough has been gradual (5 days). The cough is characterized as productive of mucopurulent sputum. The amount of sputum produced is less than a half a cup per day. The cough occu End: 27-Mar-2007 22:37 rs all the time. The symptoms are aggravated by meals, but not by supine posture. The symptoms have been associated with fever ,runny nose ,sore throat and wheezing, while the symptoms have not been ass ociated with headache or hoarseness. the color of the sputum is yellowish (and white) and bloody (beige). Note for Cough: went into er thurs- had vomiting and diarrhea - gave him fluids and did chest xray and did blood and was told ok-- vomiting and diarrhea better- still some gas- little nausea-- he is not eating -- drinking some fluids- no appetite-- was running temp thurs-- 101.2- some muscle aching a week agoEncounter Diagnosis: SOB (786.05) , Bronchitis,Acute (466.0), fever [facility] Historical Summary On: 22-Mar-2007 14:43 [facility] End: 22-Mar-2007 14:46 Office Visit On: 20-Feb-2007 13:03 Encounter Reason: Follow up acute care visit - The patient does not feel well (no better). Patient has been compliant with instructions. Current medication use: no side effects. Patient sleeps 7 hours per night. Nutritio End: 20-Feb-2007 13:45 n: balanced diet. The medical issues the patient is following up for include All identified problems below and other (sore throat). Encounter Diagnosis: Asthma,Intrinsic (493.11), Candidiasis of Mouth (Thrush) (112.0) [facility] Phone Encounter On: 17-Feb-2007 10:12 Encounter Diagnosis: Acute Pharyngitis (462.), Rash (782.1) End: 17-Feb-2007 10:18 [facility] Phone Encounter On: 16-Feb-2007 16:21 Encounter Diagnosis: Acute Pharyngitis (462.) End: 16-Feb-2007 16:24 [facility] Phone Encounter On: 10-Feb-2007 11:34 Encounter Diagnosis: Unspecified Diagnosis End: 10-Feb-2007 11:35 [facility] Office Visit On: 06-Feb-2007 15:36 Encounter Reason: Follow up for chronic medical issues - The patient does not feel well (sore throat and swollen glands and a h/a) ,has good energy level and is sleeping well. Patient has been compliant with instructions End: 06-Feb-2007 22:27 . Current medication use: no side effects and compliant with dosing regimen. Patient sleeps 7 hours per night. Nutrition: inappropriate diet and no supplemental vitamins & iron. The medical issues t he patient is following up for include All identified problems below ,high blood pressure ,osteoarthritis and other (cad). Note for Follow up for chronic medical issues: recent exposrue to [facility] for his back -- though DDD and thought more muscular-- did mri and said nothing surgical to fix- sent him for pt- and just started this-- he forgot to do his labs-- testicle issue-- bx were n eg and removed alot of fluid from left and really not bothering him now-- -- mood has been pretty good and Encounter Diagnosis: Hypertension,benign(401.1), Allergic Rhinitis(477.9), Hyperlipidemia, Mixed (272.2), Acute Pharyngitis (462.), Osteoarthritis, Unspecified Whether Generalized or Localized, Involving other Specified Sites (715.98), TESTICULAR SWELLING, NOS (608.89), Dysthymic disorder (300.4) [facility] Office Visit On: 07-Nov-2006 15:51 Encounter Reason: Follow up, Diagnostic Procedure Results - Diagnostic tests include ultrasound (testicular). Date: (10/13/06). Note for Follow up, Diagnostic Procedure Results: saw Dr Ferris - and he is doing testicul End: 07-Nov-2006 16:35 ar biopsy tomorrow-- he also saw Dr Castillo who thinks its more muscular- wanted him on nsaid and heart doctor richar warnerrosdirk-- doing well with the welbutrin- and saw cardio and gave him a clean bill of health, [ADDITIONAL REASON] Skin lesion - The skin lesion appeared gradually and has been occurring for years. It has been unchanging in size. The skin lesion is characterized as raised above the skin. The ski n lesion is located on the back. There has been associated itching, while there has been no chills ,fever or pain. Note for Skin lesion: Pt really unsure of how long he's had this b/c it's on his back and is unsure of the color. Encounter Diagnosis: Osteoarthritis, Unspecified Whether Generalized or Localized, Involving other Specified Sites (715.98), Dysthymic disorder (300.4), TESTICULAR SWELLING, NOS (608.89), Hypertension,benign(401.1), Hyperlipidemia, Mixed (272.2), Other seborrheic keratosis (702.19) [facility] Office Visit On: 13-Oct-2006 11:13 Encounter Reason: Testicular lump - The onset of the lump has been gradual and has been occurring in a persistent pattern for 2 months. The course has been constant. The lump is described as mild (3/10). Note for Testic End: 13-Oct-2006 11:57 ular lump: L - edema- starting to be painful - hurts more when sitting - radiates to the groin- he states actually swollen not a lump- no trauma-- he did strain 2 days ago lifting-- also discussed that his fatigue is better with the -- inhaler-- and he doesnt want to ontervene into the back and hips- yet-- we offered pt referral and ortho and he doesnt wantEncounter Diagnosis: TESTICULAR SWELLING, NOS (608.89), Degenerative Disc Disease - Lumbar (722.52), Osteoarthritis, Unspecified Whether Generalized or Localized, Involving other Specified Sites (715.98), SOB (786.05) [facility] Office Visit On: 26-Sep-2006 17:09 Encounter Reason: Follow up, Diagnostic Procedure Results - Diagnostic tests include chest X-ray and walk test. Date: (08/31/06 and 09/05/06- walk assessment in scanned documents and cxr on face sheet.). 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 Encounter Diagnosis: SOB (786.05), b/l leg pain [facility] Office Visit On: 31-Aug-2006 12:19 Encounter Diagnosis: SOB (786.05), walk assessment End: 01-Sep-2006 8:25 [facility] Office Visit On: 25-Jul-2006 16:04 Encounter Reason: Follow up, Diagnostic Procedure Results - Diagnostic tests include other (carotid dopplar- in scanned documents (05/25/06)) and EDISON. Date: (07/20/06- should be in your inbox-). Note for Follow up, Diagnos End: 25-Jul-2006 17:20 tic Procedure Results: bursitis - gone- he however feels 89 years old and aches and stiff- try off crestor and niacinEncounter Diagnosis: Dysthymic disorder (300.4), Myalgia(729.1), Arthralgia (719.49), SOB (786.05) [facility] Office Visit On: 20-Jul-2006 15:55 Encounter Diagnosis: Peripheral vascular disease (443.9) End: 21-Jul-2006 22:22 [facility] Historical Summary On: 28-Jun-2006 11:43 [facility] End: 28-Jun-2006 11:44 Historical Summary On: 28-Jun-2006 11:43 [facility] End: 28-Jun-2006 11:43 Office Visit On: 17-May-2006 15:50 Encounter Reason: new patient mino cardona - Last seen between 1-3 months ago. General health: feels well with minor complaints (achy joints ) ,has good energy level and is sleeping poorly. The patient's appetite is no End: 17-May-2006 22:24 rmal. Nutrition: supplemental vitamins & iron. Exercises 3 days per week. Sleeps on average 5 hours per night. Normal bowel and bladder habits. Safety measures include appropriate use of safety belt s and home smoke detectors. Current emotional problems include anxiety ,depression and sleep disturbances. The patient's libido is decreased. Note for new patient mino cardona: mood is well controlled and he is presently doing cardiac rehab, [ADDITIONAL REASON] Joint pain - The onset of the pain has been gradual and has been occurring in a persistent pattern for 6 months. The course has been increasing. The pain is described as severe. Not e for Joint pain: has been on crestor for a year- it got doubled several mos ago with that seemed to get worse- tried off for 2 weeks not better- not stiff in am- tends to be tender in the bursae sacs b/l and in the knees Encounter Diagnosis: Coronary Artery Disease (414.00), Carotid Bruits (785.9), Allergic Rhinitis(477.9), BURSITIS OF HIP (726.5), Peripheral vascular disease (443.9), Dysthymic disorder (300.4), Constipation(564.00), Hypertension,benign(401.1), Hyperlipidemia, Mixed (272.2), PROSTATIC HYPERTROPHY (600.) [facility] Historical Summary On: 02-May-2006 9:57 [facility] End: 02-May-2006 10:02 Office Visit On: 02-May-2006 9:37 [facility] End: 02-May-2006 9:37 Office Visit On: 02-May-2006 8:45 Encounter Reason: Rash - The onset of the rash has been gradual and has been occurring in a persistent pattern for 5 days. The course has been increasing. The rash is characterized as red and grouped in crops. The rash w End: 02-May-2006 9:35 as first seen on the lower extremity (started on the ankles woke pt. up Tuesday jonatan. itching ). It spread to the lower extremity (the thighs felipe left leg ). There has been associated itching and pain. N ote for Rash: Was itchy but it is better now. 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
--- OUTSIDE RECORDS SUMMARY | 2018-05-15 00:21 | XMS RPT_ITS | Continuity of Care Document ---
:1950 Author Organization [facility] Address [address] [place] [address] Phone Care Team Providers Name Role Phone Adelaida Fraga DO Unavailable Remigio Lares MD Unavailable Tawanda Alonso Unavailable [facility] Unavailable Eliana Carter Unavailable Unavailable Leigh Ann Polk Unavailable Unavailable Mary Ann Sampson Unavailable Unavailable Tracey Young LPN Unavailable Unavailable Unavailable Unavailable Problems Name Dates Details Abnormal blood chemistry (R79.9, 790.6) Status: Active Abnormal glucose tolerance test (R73.02, 790.22) Comments: someimprovement - try to get [...] colonsoocpy 09/05- polyps - repeat 5 years [facility] Status: Active Coronary artery disease (I25.10, [...] Quantity: 1 {Milliliter} Refills: 0 Ordered:06-Jun-2017 Adelaida ACKERMAN DO, Debra A Start : 06-Jun-2017 Active AmLODIPine Besylate 5 MG Oral Tablet 1 (one) Tablet daily for 30 days Quantity: 30 {Tablet} Refills: 0 Ordered:09-Aug-2016 Adelaida ACKERMAN DO, Debra A Start : 09-Aug-2016 Active ASPIRIN, 81MG (Oral Tablet) 1 qd for 0 days Refills: 0 Ordered:22-Jan-2009 Mast RN, Yandel Azelastine HCl 0.1 % Nasal Solution 1-2 sprays each nostril Soluti Solution daily for 90 days Quantity: 3 {[place]} Refills: 5 Ordered:31-Oct-2017 Adelaida ACKERMAN DO Adelaida A Start : 31-Oct-2017 Active BusPIRone HCl 10 MG Oral Tablet 2 (two) Tablet tid for 90 days Quantity: 540 {Tablet} Refills: 3 Ordered:09-May-2017 Flakito ACKERMAN, Adelaida YOSELYNast DO, Adelaida A Start : 09-May-2017 Active Dulera 200-5 MCG/ACT Inhalation Aerosol 2 puffs Aerosol bid for 30 days Quantity: 3 {Inhaler} Refills: 3 Ordered:19-May-2017 Flakito ACKERMAN, Adelaida AFast DO, Adelaida A Start : 19-May-2017 Active Effexor XR 150 MG Oral Capsule Extended Release 24 Hour 1 cap Capsule daily for 0 days Quantity: 90 {Capsule} Refills: 3 Ordered:28-Nov-2017 Flakito ACKERMAN, Adelaida YOSELYNast DO, Adelaida A Start : 28-Nov-2017 Active Effexor XR 75 MG Oral Capsule Extended Release 24 Hour 1 (one) Capsule ER 24HR qd for 0 days Quantity: 30 {Capsule} Refills: 4 Ordered:01-Aug-2017 Keyonna Coats MD Start : 01-Aug-2017 Active Flomax 0.4 MG Oral Capsule 1 (one) Capsule qd for 30 days Quantity: 30 {Capsule} Refills: 3 Ordered:06-Apr-2016 Flakito ACKERMAN, Adelaida TOPETEast , Adelaida A Start : 06-Apr-2016 Active Hydrocodone-Acetaminophen 5-325 MG Oral Tablet 1 (one) Tablet q 6 hours prn for 0 days Quantity: 60 {Tablet} Refills: 0 Ordered:02-Nov-2017 Flakito ACKERMAN, Adelaida Larios DO, Adelaida A Start : 02-Nov-2017 Active Comments:sixtyDX: M54.16, M51.49154,411,000 - OD risk 100 Lunesta 3 MG Oral Tablet 1 (one) Tablet q hs for 30 days Quantity: 30 {Tablet} Refills: 2 Ordered:06-Dec-2017 Flakito ACKERMAN, Adelaida TOPETEast DO, Adelaida A Start : 06-Dec-2017 Active MetFORMIN HCl ER 500 MG Oral Tablet Extended Release 24 Hour 2 (two) Tablet ER 24HR qd for 0 days Quantity: 180 {Tablet} Refills: 3 Ordered:06-Sep-2017 Flakito ACKERMAN, Adelaida YOSELYNast DO, Adelaida A Start : 06-Sep-2017 Active Myrbetriq 50 MG Oral Tablet Extended Release 24 Hour 1 tab Tablet ER 24HR daily for 90 days Quantity: 90 {Tablet} Refills: 2 Ordered:29-Aug-2017 Eliana Carter Start : 29-Aug-2017 Active NITRO-DUR, 0.6MG/HR (Transdermal Patch 24 Hour) 1 (one) Patch 24HR qd for 0 days Quantity: 30 {Unspecified} Refills: 0 Ordered:25-Jul-2013 Adelaida Fraga DO, DO Adelaida A Start : 25-Jul-2013 Active Protonix 40 MG Oral Tablet Delayed Release [address] bid for 0 days Quantity: 180 {Tablet} Refills: 3 Ordered:06-Jun-2017 Adelaida Fraga DO, DO Adelaida A Start : 06-Jun-2017 Active Proventil HFA 108 (90 Base) MCG/ACT Inhalation Aerosol Solution 2 (two) Aerosol Soln qid, prn for 30 days Quantity: 1 {Aerosol_Soln} Refills: 3 Ordered:06-Apr-2016 Adelaida Fraga DO, DO Adelaida Layton Start : 06-Apr-2016 Active Ranexa 500 MG Oral Tablet Extended Release 12 Hour 2 (two) Tablet ER 12HR bid for 0 days Quantity: 120 {Tablet} Refills: 0 Ordered:06-Apr-2016 Flakito ACKERMAN Adelaida Larios DO Adelaida Layton Start : 06-Apr-2016 Active Rosuvastatin Calcium 40 MG Oral Tablet 1 (one) Tablet Tablet qd for 0 days Quantity: 30 {Tablet} Refills: 6 Ordered:28-Jun-2017 Eliana Carter Start : 28-Jun-2017 Active Singulair 10 MG Oral Tablet 1 (one) Tablet qd for 0 days Quantity: 90 {Tablet} Refills: 2 Ordered:14-Nov-2017 Eliana Carter Start : 14-Nov-2017 Active ASMANEX 120 METERED DOSES, 220MCG/INH (Inhalation Aerosol Powder Breath Activated) 2 (two) Aero Pow Br Act qd for 0 days Quantity: 1 {Aero_Pow_Br_Act} Refills: 3 Ordered:08-May-2007 Makeda Mejia Start : 08-May-2007 End : 08-Aug-2007 Inactive Comments:rinse mouth after use Ativan 0.5 MG Oral Tablet 1 (one) Tablet qd, prn for 30 days Quantity: 30 {Tablet} Refills: 0 Ordered:02-Nov-2017 Adelaida Fraga DOtesfaye Adelaida A Start : 02-Nov-2017 End : 02-Dec-2017 Inactive Comments:thirtyAnxiety/Depression F41.9340,411,000 - OD risk 100 Atorvastatin Calcium 40 MG Oral Tablet 1 (one) Tablet Tablet qd for 0 days Quantity: 30 {Tablet} Refills: 3 Ordered:06-Sep-2017 Flakito ACKERMAN, Adelaida Larios DO, Adelaida A Start : 27-Jun-2017 End : 06-Sep-2017 Inactive AUGMENTIN, 875-125MG (Oral Tablet) 1 (one) Tablet BID for 14 days Quantity: 28 {Tablet} Refills: 0 Ordered:12-Jun-2012 Flakito ACKERMAN, Adelaida Larios DO, Adelaida A Start : 12-Jun-2012 End [...] 20-Mar-2013 Inactive Comments:alternate with 20mg(per hans at [facility] - was not fillable if more than 1qd and would require pa at [phone] or [phone] - sent in this way to see if will process -- no id number was given = Karely Cyclobenzaprine HCl 10 MG Oral Tablet 1 (one) Tablet daily, prn for 30 days Quantity: 30 {Tablet} Refills: 1 Ordered:06-Sep-2017 Eliana Carter Start : 16-Mar-2017 End : 06-Sep-2017 Inactive Diflucan 150 MG Oral Tablet 1 (one) [...] {Tablet} Refills: 0 Ordered:05-Sep-2012 Adelaida Fraga DOtesfaye Manolocalin Layton Start : 02-Aug-2012 End : 01-Sep-2012 Inactive Comments:SIXTY Levaquin 500 MG Oral Tablet 1 (one) Tablet daily for 5 days Quantity: 5 {Tablet} Refills: 0 Ordered:15-Jul-2017 Adelaida Fraga DOtesfaye Manoloa A Start : 15-Jul-2017 End : 20-Jul-2017 [...] (Oral Capsule) 1 (one) Capsule Capsule bid i3sqpsv for 21 days Quantity: 42 {Capsule} Refills: 0 Ordered:21-Jan-2014 Adelaida Fraga DO, DO, Adelaida Layton Start [...] : 02-Sep-2010 End : 05-Nov-2010 Inactive NYSTATIN, 784519CRLM/ML (Mouth/Throat Suspension) 10 cc tid for 0 [...] : 22-Jun-2013 End : 03-Sep-2013 Inactive ZOSTAVAX, 28246QDQ/0.65ML (Subcutaneous Solution Reconstituted) 1 For Solution sc [...] Quantity: 1 {Aero_Pow_Br_Act} Refills: 1 Ordered:25-Dec-2012 Flakito ACKERMAN Adelaida AFast DO, Adelaida A Start : 25-Dec-2012 End : 25-Dec-2012 Discontinued ADVAIR HFA, 230-21MCG/ACT (Inhalation Aerosol) 2 puffs Aerosol bid for 90 days Quantity: 3 {Inhaler} Refills: 3 Ordered:10-Apr-2014 Slarb LENS GRINDER, Tracey Start : 22-Jun-2013 End : 10-Apr-2014 Discontinued ATENOLOL, 50MG (Oral Tablet) 1 tab Tablet qd for 30 days Quantity: 30 {Tablet} Refills: 0 Ordered:10-Apr-2014 Slarb LENS GRINDER, Tracey Start : 12-Jun-2012 End : 10-Apr-2014 Discontinued Atorvastatin Calcium 80 MG Oral Tablet 1 (one) Tablet qd for 30 days Quantity: 30 {Tablet} Refills: 3 Ordered:06-Jun-2017 Flakito ACKERMANManoloa AFast DO, Adelaida A Start : 06-Jun-2017 [...] days Quantity: 20 {Tablet} Refills: 0 Ordered:12-Jun-2012 Flakito ACKERMAN Adelaida AFast DO, Adelaida A Start : 12-Jun-2012 [...] Quantity: 60 {Capsule} Refills: 3 Ordered:10-Apr-2014 Slarb LENS GRINDER, Tracey Start : 29-Oct-2013 End : 10-Apr-2014 Discontinued Dymista 137-50 MCG/ACT Nasal Suspension 1 spray each nostril qd for 0 days Quantity: 2 {[place]} Refills: 0 Ordered:11-Jun-2016 Leigh Ann Polk Start : 09-Jun-2016 End : 11-Jun-2016 Discontinued FLOMAX, 0.4MG (Oral Capsule Extended Release 24 Hour) 2 (two) Capsule ER 24HR qhs / HS for 0 days Quantity: 60 {Capsule_ER_24HR} Refills: 3 Ordered:18-Aug-2009 Leigh Ann Polk Start : 18-Aug-2009 End : 01-Dec-2009 Discontinued [...] Start : 05-Jan-2016 End : 06-Apr-2016 [id number] viewed and approved- gave scripts to [...] days Quantity: 42 {Tablet} Refills: 0 Ordered:06-Jan-2015 Adelaida Fraga DO, DO, Adelaida A Start : 06-Jan-2015 End : 06-Jan-2015 Discontinued ZITHROMAX Z-PHUC, 250MG (Oral Tablet) tad Tablet qd for 0 days Quantity: 6 {Package} Refills: 0 Ordered:10-Apr-2014 Slarb LENS GRINDER, Tracey Start : 06-Feb-2014 End : 10-Apr-2014 Discontinued ZOLOFT, 50MG (Oral Tablet) 1 (one) Tablet qd for 0 days Quantity: 30 {Tablet} Refills: 0 Ordered:20-Nov-2012 Flakito DOAdelaida AFtesfaye DO, Adelaida A Start : 20-Nov-2012 End [...] x3 one on scalp two on right baptism Status: Inactive as of 06-Jun-2017 Acute sinusitis, [...] 07-27 Completed Tonsillectomy Completed Date Value Details 26-Sep-2017 Brain W/WO Contrast Result: Comments: See Note; NOTES: [facility] [address] [place] [address] Brain W/WO Contrast MR#: [id number] Acct: [id number] Name: YUMIKO LANDRUM Rep #: [id number] : 1950 M 67 From: Rodney Sarah MD PCP: Adelaida Fraga DO Status: REG CLI Study: Brain W/WO Contrast Date of Exam: 09/26/17 Exam# [id number] Ordering Dr: Perico Crowe MD STUDY: MRI [...] CC: Perico Crowe MD; Adelaida Fraga DO Cdl Service Technician: Signed 17-Sep-2017 Carotid Duplex Ultrasound Result: Comments: See Note; NOTES: [facility] Services [address] [place] [address] Carotid Duplex Ultrasound 09/16/17 1012 MR#: [id number] Acct: [id number] Name: YUMIKO MCCOLLUM Rep #: [id number] : 1950 66 From: Jung Garcia MD Attending Dr: Adelaida Fraga DO Status: REG CLI Ordering Dr: Adelaida Fraga DO Date: 09/16/17 Location: [facility] Sex: M C Admitted: Reason [...] the left vertebral artery. Procedure Carotid Duplex 71131. The study was technically difficult. Exam performed in department. Interpretati on Summary Mild (<50%) stenosis right extracranial internal carotid. Mild (<50%) stenosis left extracranial internal carotid. Flow within the vertebral arteries is antegrade bilaterally. Ordering Physician: Adelaida Fraga Referring Physician: Adelaida Fraga V Performed By: Nilda Rahman , RDLEANNE, RVT 09/17/17 1511 Date Jung Garcia MD CC: Adelaida Fraga DO Date Dictated: 1012 Date Transcribed: 09/17/17 151 Cdl Service Technician: Signed 17-Aug-2017 History and Physical Exam Result: Comments: See Note; NOTES: [facility] Medical Records Department [address] [place] [address] History and Physical 08/17/17913 MR#: [id number] Acct: [id number] Name: LYON ZAINDUSTY E Rep #: [id number] : 1950 66 From: Remigio Lares MD PCP: Adelaida Fraga DO Status: REG [facility] Location: [facility] Problem List (1) Abnormal stress test Status: Acute (2) 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 transplanted heart: [place] heart Qualified Code(s): I25.10 - Atherosclerotic heart disease of [place] coron elise artery without angina pectoris Comment: PTCA/RINA to Prox LAD 08/11/05 (3) Presence of stent in coronary artery Status: Chronic Comment: PTCA/RINA to Prox LAD 08/11/05 (4) Hyperlipidemia Status: Chr onic Qualifiers: (5) Hypertension Status: Chronic Qualifiers: History and Physical Date of Admission: 08/17/17 Date: 08/17/2017 Precardia catheterization history of present illness: Up-to-date Citlalli [...] was trivial MR and TR and mild CA. His estimated RV systolic pressure was 30 [...] please see previously dictated out the patient [facility] from 07/14/2017. Review of systems: Upon review [...] above. The above was discussed with the p vaishnavi. He was agreeable to this approach. This note was generated with [employer] dictation software. It may contain incorrect words, spelling, and punctuation that were not noted in checking the note bef ore signing. 08/17/17 0925 <Electronically signed by Remigio Lares MD> Date Remigio Lares MD Cosigner Signature: Date (if applicable) CC: Adelaida Fraga DO; Remigio Lares MD Signed 11-Aug-2017 Chest PA and Lateral Result: Comments: See Note; NOTES: [facility] Services [address] [place] [address] Chest PA and Lateral MR#: [id number] Acct: [id number] Name: YUMIKO LANDRUM Rep #: [id number] : 1950 M 66 From: Will Guerrero MD PCP: Adelaida Fraga DO Status: REG CLI Study: Chest PA and Lateral Date of Exam: 08/11/17 Exam# [id number] Ordering Dr: Remigio Lares MD STUDY: X-RAY RASHMI ST REASON FOR EXAM: Male, 66 years old. Heart catheterization 08/17/2017. Shortness of breath. TECHNIQUE: PA and lateral chest. COMPARISON: 02/10/2017. FINDINGS: The lungs are clear and expanded. Normal cardiomediastinal silhouette, deborah and pleural margins. No acute osseous or upper abdominal process. R AD/Chest PA and Lateral IMPRESSION: No acute cardiopulmonary process. Electronically Signed: Will Yolanda, at 15:48 EDT Tel , Service support , Fax CC: Adelaida Fraga DO; Remigio Lares MD Cdl Service Technician: Signed 02-Aug-2017 Stress Report Result: Comments: See Note; NOTES: [facility] Cardiovascular Services [address] [place] [address] MR#: [id number] Acct: [id number] Name: YUMIKO LANDRUM Rep #: [id number] : [birth year] 66 From: Remigio Lares MD Primary Care: Adelaida Fraga DO Status: REG CLI Ordering Dr: Sex: M C Stress Test Report Date: 02/09/2018 Procedure: Exercise [...] 72 %. This note was generated with [employer] software. It may contain incorrect words, spelling, and punctuation that were not noted in checking the note before signing. 08/02/17 3975 <Electronically signed by Remigio Lares MD> Date Remigio Lares MD CC: Adelaida Fraga DO; Remigio Lares MD Date Dictate d: 08/02/171638 Date Transcribed: 08/02/171638 Cdl Service Technician: PM Signed 14-Jul-2017 Cardiology Visit Report Result: Comments: See Note; NOTES: [facility] [address] [place] [address] OFFICE VISIT Date of Service: 07/14/17 MR#: [id number] Acct: [id number] Name: YUMIKO LANDRUM Rep #: [id number] : 1950 Provider: Remigio Lares MD Age/Sex: 66/M Location: [facility] [place] Status: Signed HPI HPI Details: YUMIKO LANDRUM, is a 66 M who presents to the office today for outpatient card iovascular consultation for history of underlying CAD status post LAD PCI. He has been cared for in the past both by the [facility] members (Drs. Griggs and Edwin), at [facility] by Dr. Rosales, and at [facility] by Dr. Maury Veliz. He states he lost saw Dr. Veliz approximately 1 year ago. He is now relocating his care locally. He has a history of underlying CAD. He underwent a previous diagnostic car diac catheterization on 08/11/2005 at [facility]. At that point in time he was [...] no significant stenosis. In April 2008, at [facility], he had a repeat diagnostic cardiac [...] luminal irregularities. He apparently was transferred to [facility] for further evaluation and care. The results [...] an LYNDSEY inhibitor. 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 Atherosclerosis of [place] coronary artery of [place] heart without angina pectoris I25.10 PTCA/RINA to [...] Code Off vis,new,level 4 Diagnoses Atherosclerosis of [place] coronary artery of [place] heart without angina pectoris I25.10 [place] vs. transplanted heart: n ative heart Presence of stent in coronary artery Z95.5 Hyperlipidemia, unspecified hyperlipidemia type E78.5 Hyperlipidemia type: unspecified Essential hypertension I10 Hypertension type: essential hype rtension COPD (chronic obstructive pulmonary disease) J44.9 Coding Level of Care Code Off vis,new,level 4 Diagnoses Atherosclerosis of [place] coronary artery of [place] heart without angina pectoris I 25.10 [place] vs. transplanted heart: [place] heart Presence of stent in coronary artery Z95.5 Hyperlipidemia, unspecified hyperlipidemia type E78.5 Hyperlipidemia type: unspecified Essential hypertension I10 Hypertension type: essential hypertension COPD (chronic obstructive pulmonary disease) J44.9 07/14/17 1558 <Electronically signed by Remigio Lares MD> Date Remigio Lares MD Cosigner Signature: Date (if applicable) CC: Adelaida Fraga DO 14-Jul-2017 12 Lead EKG performed by [facility] [place] Result: Comments: See Note; NOTES: [facility] [address] [place] [address] 12 Lead EKG performed by [facility] 07/14/176 MR#: [id number] Acct: [id number] Name: YUMIKO LANDRUM Rep #: [id number] : 1950 66 From: Remigio Lares MD Attending Dr: Remigio Lares MD Status: DEP AMB Ordering Dr: Remigio Lares MD Date: 07/14/17 Location: [facility] Sex: M C Admitted: [facility] [place]/12 Lead EKG performed by [facility] [place] [facility] ECG Report Interpretation Sinus Rhythm Right bundle branch block. ABNORMAL Electronically signed on 07/14/2017 at 17:15 by Remigio Lares 07/14/17 1717 Date Remigio Lares MD CC: Adelaida Fraga DO Date Dictated: 07/14/171435 Date Transcribed: 07/14/171435 Cdl Service Technician: PM Signed 04-Jul-2017 TXT - Blood Flow Screening Result: Comments: See Note; NOTES: [facility] Cardiovascular Services [address] [place] [address] 07/04/17 0840 MR#: [id number] Acct: [id number] Name: YUMIKO LANDRUM Rep #: [id number] : 1950 66 From: Jung Garcia MD Attending Dr: Adelaida Fraga DO Status: REG REF Ordering Dr: Date: 07/04/17 Location: [facility] Sex: M C Admitted: Reason For Study: [...] (1.0 or greater). Ordering Physician: Adelaida Fraga Refeross health Physician: Adelaida Fraga Performed By: Kayla Kelley, RDCS, RVT 07/04/172221 Date Tyrese Garcia MD CC: Adelaida Fraga DO Date Dictated: 07/04/17 0840 Date Transcribed: 07/04/172221 Cdl Service Technician: Signed 06-Jun-2017 L/S Spine Min 4 Views Result: Comments: See Note; NOTES: [facility] [address] [place] [address] L/S Spine Min 4 Views MR#: [id number] Acct: [id number] Name: YUMIKO LANDRUM Rep #: [id number] : 1950 M 66 From: Rafael Manley DO PCP: Adleaida Fraga DO Status: REG CLI Study: L/S Spine Min 4 Views Date of Exam: 06/06/17 Exam# [id number] Ordering Dr: Adelaida Fraga DO STUDY: X-RAY [...] Rafael Manley DO at 18:01 EDT Tel [phone], Service support , CC: Adelaida Fraga DO Cdl Service Technician: Signed 18-Feb-2017 Ankle min 3 Views Result: Comments: See Note; NOTES: [facility] Imaging Services [address] [place] [address] Ankle min 3 Views MR#: [id number] Acct: [id number] Name: YUMIKO LANDRUM Rep #: [id number] OB: 1950 M 66 From: Trevon Carrillo MD PCP: Adelaida Fraga DO Status: REG CLI Study: Ankle min 3 Views Date of Exam: 02/18/17 Exam# [id number] Ordering Dr: Adelaida Fraga DO STUDY: X-RAY [...] Service support , CC: Adelaida Fraga DO Cdl Service Technician: Signed 18-Feb-2017 Chest without Contrast Result: Comments: See Note; NOTES: [facility] Imaging Services [address] [place] [address] Chest without Contrast MR#: [id number] Acct: [id number] Name: YUMIKO LANDRUM Rep #: [id number] : 1950 M 66 From: Kaitlin Campoverde PCP: Adelaida Fraga DO Status: REG CLI Study: Chest without Contrast Date of Exam: 02/18/17 Exam# [id number] Ordering Dr: Adelaida Fraga DO STUDY: CT [...] Service support , CC: Adelaida Fraga DO Cdl Service Technician: Signed 10-Feb-2017 Chest PA and Lateral Result: Comments: See Note; NOTES: [facility] Imaging Services [address] [place] [address] Chest PA and Lateral MR#: [id number] Acct: [id number] Name: YUMIKO LANDRUM Rep #: [id number] : 1950 M 66 From: Chava Fu MD PCP: Adelaida Fraga DO Status: REG CLI Study: Chest PA and Lateral Date of Exam: 02/10/17 Exam# [id number] Ordering Dr: Yola Witt STUDY: X-RAY CHEST [...] , CC: COCO Witt; Adelaida Fraga DO Cdl Service Technician: Signed 18-Jan-2017 Chest PA and Lateral Result: Comments: See Note; NOTES: [facility] Imaging Services [address] [place] [address] Chest PA and Lateral MR#: [id number] Acct: [id number] Name: YUMIKO LANDRUM Rep #: [id number] : 1950 M 66 From: Erwin Jiménez MD PCP: Adelaida Fraga DO Status: REG CLI Study: Chest PA and Lateral Date of Exam: 01/18/17 Exam# [id number] Ordering Dr: Yola Witt STUDY: X-RAY CHES T REASON FOR EXAM: [...] EST Tel , Service support , CC: RECONCILIATION ACCOUNTANTMayra Witt; Adelaida Fraga DO Cdl Service Technician: Signed 11-Apr-2015 Chest PA and Lateral Result: Comments: See Note; NOTES: [facility] Imaging Services [address] [place] [address] Verdana 4d Chest PA and Lateral MR#: [id number] Acct: [id number] Name: YUMIKO LANDRUM Rep #: [id number] : 1950 64 From: Setphen Barba MD PCP: Adelaida Fraga DO Status: REG CLI Study: Chest PA and Lateral Date of Exam: 04/11/15 Exam# [id number] Ordering Dr: Adelaida Fraga DO STUDY: X-RAY [...] FACR at 20:20 EST , Service support [phone], RAD/Chest PA and Lateral IMPRESSION: Normal x-ray examination of the chest. No lingular infiltrate is noted on today's examination Electronically Signed: Stephen Barba MD, FACR at 20:20 EST , Service support [phone], CC: Adelaida Fraga DO Cdl Service Technician: Signed 11-Apr-2015 Hip min 2 Views Result: Comments: See Note; NOTES: [facility] Imaging Services [address] [place] [address] Verdana 4d Hip min 2 Views MR#: [id number] Acct: [id number] Name: DOMINICKNATHAN QUIÑONEZHERNANDO Taylor Rep #: [id number] : 1950 64 From: Stephen Barba MD PCP: Adeladia Fraga DO Status: REG CLI Study: Hip min 2 Views Date of Exam: 04/11/15 Exam# [id number] Ordering Dr: Adelaida Fraga DO UDY: X-RAY - PELVIS AND LEFT HIP [...] FACR at 20:19 EST , Service support [phone], RAD/Hip min 2 Views IMPRESSION: Normal x-ray examination of the pelvis and hip. Electronically Signed: Stephen Barba MD, FACR 201 07/23/18 at 20:19 EST , Service support [phone], CC: Adelaida Fraga DO Cdl Service Technician: Signed 11-Apr-2015 L/S Spine Min 4 Views Result: Comments: See Note; NOTES: [facility] Imaging Services [address] [place] [address] Verdana 4d L/S Spine Min 4 Views MR#: [id number] Acct: [id number] Name: YUMIKO LANDRUM Rep #: [id number] : 1950 64 From: Stephen Barba MD PCP: Adelaida Fraga DO Status: REG CLI Study: L/S Spine Min 4 Views Date of Exam: 04/11/15 Exam# [id number] Ordering Dr: Susannah Fraga ra, DO STUDY: [...] FACR at 20:20 EST , Service support [phone], RAD/L/S Spine Min 4 Views IMPRESSION: M ild degenerative disc disease at L2-3 and L5-S1. Facet arthrosis at L4-5 and L5-S1. Mild dextroscoliosis. Electronically Signed: Stephen Barba MD, FACR at 20:20 EST Tel , Service support [phone], CC: Adelaida Fraga DO Cdl Service Technician: Signed 27-Aug-2014 Chest PA and Lateral Result: Comments: See Note; NOTES: [facility] Imaging Services [address] [place] [address] Radiology Report MR#: [id number] Acct: [id number] Name: YUMIKO LANDRUM [place] Rep #: [id number] : 1950 M 63 From: Wilfredo Alvarado MD PCP: Adelaida Fraga DO Status: REG CLI Study: Chest PA and Lateral Date of Exam: 08/27/14 Exam# [id number] Ordering Dr: Adelaida Fraga DO STUDY: X- [...] Wilfredo Alvarado MD at 15:46 EDT Tel [phone], Service support [phone], 0079 RAD/Chest PA and Lateral IMPRESSION: Inc reased markings in the lingular segment of the left upper lobe suggestive of early infiltrate. Followup is recommended. Electronically Signed: Wilfredo Alvarado MD at 15:46 EDT Tel [phone], Service support [phone], CC: Adelaida Fraga DO Cdl Service Technician: Signed 02-Jul-2013 12 Lead Electrocardiogram Result: Comments: See Note; NOTES: [facility] Cardiovascular Services [address] [place] [address] 12 Lead EKG 06/17/13 1938 MR#: [id number] Acct: [id number] Name: CITLALLI LANDRUM Brandon Rep #: [id number] : 1950 62 From: Remigio Lares MD [...] Abnormal ECG Confirmed by GERDA CALVO, REMIGIO ([id number]), senior editor KARYNA RUBALCAVA ([id number]) on 2013 10:04:35 AM Referred By: Jose Fernando Confirmed By:REMIGIO LARES MD CC: Adelaida byrd DO Date Dictated: 06/17/131937 Date Transcribed: 06/17/131937 Cdl Service Technician: Signed 30-Jun-2013 Emergency Department Summary Result: Comments: See Note; NOTES: [facility] Medical Records Department [address] [place] [address] Emergency Department Summary MR#: [id number] Acct: [id number] Name: YUMIKO LANDRUM Rep #: [id number] : 1950 62 From: Jose Fernando MD PCP: Adelaida Fraga DO Status: DEP ER DATE OF SERVICE: 06/28/2013 CHIEF COMPLAINT: Chest pain. HISTORY OF PRESENT ILLNESS: The patient states over the past 8 hours, he has had intermittent discomfort in the chest of burning to ache similar to angina. He had an OH, he thinks, back in 2011 when he had a stent placed by Dr. Mariah carr in [facility]. He has been off his blood thinners [...] and sensation, cranial nerve function and treatment. [facility] DEPARTMENT COURSE: Portable one-view chest x-ray shows [...] a 3. 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 He was stable for transfer. I spoke with [facility], Jorge and Dr. Trujillo as medicare coordinator accepted the patient after being advised of all the above through the transfer logistics team leader. He did not want to talk to me. The patient is stable for transfer, with him. DIAGNOSES: 1. Chest pain. 2. Unstable angina. Jose Fernando MD C C: Adelaida Fraga DO T: NTS JOB: [id number] 06/30/13 0021 <Electronically signed by Jose Fernando MD> Date Jose Fernando MD CC: Adelaida Fraga DO Date Dictated: 06/28/132254 Date Transcribed: 06/28/132254 Cdl Service Technician: Signed 28-Jun-2013 Chest 1 View (Portable) Result: Comments: See Note; NOTES: [facility] Imaging Services [address] [place] [address] Radiology Report MR#: [id number] Acct: [id number] Name: YUMIKO LANDRUM Brandon Rep #: [id number] : 1950 M 62 From: Wilfredo Alvarado MD PCP: Adelaida Fraga DO Status: DEP ER Study: Chest 1 View (Portable) Date of Exam: 06/28/13 Exam# [id number] Ordering Dr: Jose Fernando MD STUDY: X-RAY [...] Wilfredo Alvarado MD at 9:06 EDT Tel [phone], Service support [phone], CC: Adelaida Fraga DO; Jose Fernando MD Cdl Service Technician: Signed Immunization Name Dates Details Influenza vaccine, split, 3yrs &>, IM (AFLURIA) on: Nov-2017 Influenza, inj, MDCK, preservative free, q.valent on: 07-Dec-2016 Comments: Site: Lot #: [id number] Family History Unknown Family Member Name Dates [...] Status: Active 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 [address]ufjplrd[address] [place], [address] Absolute Lymph 1.76 {X10_3/ul} (Normal) Range: 0.83-4.51 [...] 4.6-6.2 WBC 5.7 K/mm3 (Normal) Range: 4.4-11.0 53-Pen-572491:31 Comprehensive Metabolic Profil Comments: [facility] Aswiwookit[address] [place], [place], [address] ; fu 10-16 DF GAP 9 (Normal) [...] A.D.A. criteria.Please note revised GLUCOSE reference range /02/2018. 64-Flj-917431:31 Hemoglobin A1c Comments: [facility] Gaquhoazed[address] [place], [place], [address] HGB A1C 6.0 % (Normal) Range: 4.2-6.3 09-Blv-314784:31 Lipid Profile Comments: [facility] Zmzgprtswy[address] [place], [place], [address] VLDL 24 mg/dL (Normal) Range: 5-40 LDL [...] 200-240 mg/dL Borderline >240 mg/dL High Risk :31 PSA,Total - Annual Screen Comments: [facility] Ktmfhdgprj7[address] [place], [place], [address] PSA,TOT SCREEN 0.50 ng/mL (Normal) Range: 0.00-4.00 Comments: This test was performed using the TPSA assay method for the[facility] chemistry system. Values obtained with differentassay methods cannot be used interchangably.When changing PSA assays in the course of monitoring apatient, additional sequential testing should be carriedout to confirm baseline values. 92-Faj-065304:42 Aspergillus Antibodies Comments: [facility] (refer to report for specific site)refer to report for address and phone number Asp. niger Negative (Normal) Asp. flavus Negative (Normal) Asp. fumigatus Negative (Normal) :42 Immunoglobulin E Comments: [facility] (refer to report for specific site)refer to report for address and phone number IMMUNO E 19 {IU/mL} (Normal) Range: 0-100 00-Exp-751006:42 Immunoglobulin G Comments: [facility] (refer to report for specific site)refer to report for address and phone number IMMUNO G 702 mg/dL (Normal) Range: 700-1600 Comments: Performed at: [address] [id number] Director: Joseph Velez MD, Phone: [phone] at: [place] [address]Rge Director: Hugo Britt PhD, Phone: [phone] 61-Qwn-197995:42 Miscellaneous Lab Comments: Comments: [id number] CASTRO,RTTest(s) Ordered: [facility] Gleoldaxaj[address] [place], [place], [address] Procedure MIS Comments: TEST RESULT UNITS REFERENCE INTERVALA. fumigatus #1 Abs NEGATIVE NEGATIVE TESTING PERFORMED AT [facility]. O LAB (Normal) RIGINAL REPORT ON FILE IN LAB CONTAINS ADDITIONAL TEST SITE INFORMATION. TEST 3-Oqo-550735:28 Acetylcholine Receptor Comments: Has Patient had Radioactive Injection for X-ray?: [facility] (refer to report for specific site)refer to report for address and phone number ACTYL [id number] < 0.03 nmol/L (Normal) Range: 0.00-0.24 Comments: Negative: 0.00 - 0.24 Borderline: 0.25 - 0.40 Positive: > 0.40Performed at: [address] [id number] Director: Joseph Velez MD, Phone: [phone] 2-Hfa-766184:28 BUN 9 mg/dL (Normal) Comments: [facility] Cmlspaipyb37[address] [place], [address] Range: 7-18 6-Lzi-024724:28 Serum Creatinine AND GFR Comments: [facility] Ovbzovxpsx2[address] [place], [id number] EST GFR - AA 100 mL/min (Normal) Comments: GFR Calc EST GFR 83 mL/min (Normal) Comments: Non- GFR Calc CREAT,SERUM 0.97 mg/dL (Normal) Range: 0.70-1.30 Comments: The validity of the calculated GFR AND GFRAA in patients over70 years has not been determined. Clinical correlation isessential. 14-Kmf-087631:13 Culture, Fungus 8482 Comments: [facility] Mxomlloscm50[address] [place], [address] CUF See Note Comments: Cu,Ybeatc8656 TESTING PERFORMED AT [facility]. ORIGINAL REPORT ON FILE IN LAB CONTAINS ADDITIONAL TEST SITE INFORMATION. (Normal) ORGANISM 1: Barron albicansAmount Growth Growth ORGANISM 2: Penicillium speciesAmount Growth Growth 89-Iee-545496:13 Culture, Sputum Comments: [facility] Ehjedfhxiu47[address] [place], [address] CUSP See Note (Normal) Comments: Gram StainAcceptable Specimen? Yes (<25 Epithelial cells per/lpf) Gram Stain 2+ White Blood Cells 2+ Epithelial cells 4+ Gram positive cocci 4+ Gram positive rods Resp. CultureNo Haemoph ilus, Streptococcus pneumoniae, beta-hemolytic Streptococcus or Staphylococcus aureus isolated. ORGANISM 1: Yeast Like OrganismAmount Growth Rare ORGANISM 2: Mixed FloraAmount Growth 3+ 71-Cht-479656:59 CBC W/Diff, Automated Comments: [facility] Dboajgvoeb35[address] [place], [place], [address] Absolute Lymph 1.98 {X10_3/ul} (Normal) Range: 0.83-4.51 [...] 4.6-6.2 WBC 10.8 K/mm3 (Normal) Range: 4.4-11.0 48-Fti-961598:59 Comprehensive Metabolic Profil Comments: [facility] Thzxjkvdnh25[address] [place], [place], [address] GAP 10 (Normal) Range: 5-15 CO2 27.0 [...] A.D.A. criteria.Please note revised GLUCOSE reference range ocpnddqzd78/02/2018. 44-Kkx-901777:59 Hemoglobin A1c Comments: [facility] [address]sjarzmlwg[address] [facility] [address] [place], [place], [address] HGB A1C 6.2 % (Normal) Range: 4.2-6.3 22-Kpc-393975:59 Lipid Profile Comments: [facility] Xt[address]frcjgm[address] [facility] [address] [place], [place], [address] VLDL 13 mg/dL (Normal) Range: 5-40 LDL [...] 200-240 mg/dL Borderline >240 mg/dL High Risk 06-Gcu-490617:59 Microalb:Creat Ratio,Random UR Comments: [facility] Onkelmpkpi[address] [place], [place], [address] MALB:CREAT 10.1 {mg/g_CRE} (Normal) MICROALBUMIN,UR 5.6 mg/L (Normal) UR CREAT 55.70 mg/dL (Normal) :45 Basic Metabolic Profile (BMP) Comments: [facility] Kbtcqmmbxz[address] [place], [place], [address] GAP 6 (Normal) Range: 5-15 CO2 29.0 [...] Comments: Please note revised GLUCOSE reference range jfuitzyhs31/02/2018. 1-Btl-211528:45 Lipid Profile Comments: [facility] Ncuhwizxdl47[address] [place], [place], [address] VLDL 22 mg/dL (Normal) Range: 5-40 LDL [...] 200-240 mg/dL Borderline >240 mg/dL High Risk 0-Trj-960839:45 Liver Profile Comments: [facility] Lhefihnbdq69[address] [place], [address] D BILI 0.13 mg/dL (Normal) Range: 0.00-0.30 T BILI 0.50 mg/dL (Normal) Range: 0.20-1.00 ALT 27 U/L (Normal) Range: 16-61 ALK P 53 U/L (Normal) Range: 45-117 AST 20 U/L (Normal) Range: 15-37 GLOB 4.3 g/dL (Abnormal) Range: 2.2-4.2 ALB 3.0 g/dL (Abnormal) Range: 3.2-5.0 T PROT 7.3 g/dL (Normal) Range: 6.4-8.2 12-Nkr-926213:31 Basic Metabolic Profile (BMP) Comments: [facility] Q[address]brrbvnh66[address] [place], [place], [address] GAP 4 (Abnormal) Range: 5-15 CO2 27.0 [...] A.D.A. criteria.Please note revised GLUCOSE reference range /02/2018. 45-Fcd-532494:31 CBC-Complete Blood Cnt No Diff Comments: [facility] Alwfyyzjdg8564 [address] [place], [place], [address] MPV 8.7 fL (Normal) Range: 6.2-12.0 PLT [...] 4.6-6.2 WBC 9.6 K/mm3 (Normal) Range: 4.4-11.0 94-Uvp-326964:31 Partial Thromboplast Time Comments: [facility] [address] [place], [place], [address] PTT 26.1 s (Normal) Range: 24.1-36.2 79-Zjb-082230:31 Prothrombin Time w/INR Comments: [facility] Rwkaxblhbb54[address] [place], [place], [address] INR 0.9 (Normal) PROTIME 12.5 s (Normal) Range: 11.7-14.9 :00 Culture, Fungus 8482 Comments: [facility] [address] [place], [address] CUF See Note Comments: Cu,Lmmejg2688 TESTING PERFORMED AT [facility]. ORIGINAL REPORT ON FILE IN LAB CONTAINS ADDITIONAL TEST SITE INFORMATION. (Normal) ORGANISM 1: Barron albicansAmount Growth Growth ORGANISM 2: Penicillium speciesAmount Growth Growth ORGANISM 3: Aspergillus speciesAmount Growth Growth :00 Culture, Sputum Comments: [facility] [address] [place], [place], [address] CUSP See Note (Normal) Comments: Gram StainAcceptable Specimen? Yes (<25 Epithelial cells per/lpf) Gram Stain 1+ White Blood Cells Rare Epithelial cells 4+ Gram positive rods 1+ Gram negative rods Resp. Culture Mixed nor mal respiratory ashkan. No Haemophilus, Streptococcus pneumoniae, beta-hemolytic Streptococcus or Staphylococcus aureus isolated. 34-Obz-484771:00 Culture, Sputum Comments: [facility] [address] [place], [address] CUSP See Note (Normal) Comments: Gram StainAcceptable Specimen? Yes (<25 Epithelial cells per/lpf) Gram Stain 1+ White Blood Cells Rare Epithelial cells 3+ Gram positive cocci Resp. CultureMixed normal respiratory ashkan. No Haemophilus, Streptococcus pneumoniae, beta-hemolytic Streptococcus or Staphylococcus aureus isolated. 49-Hop-821753:44 TESTOSTERONE FREE (42906) Comments: PATIENT NOT FASTINGPERFORMED BY: [facility]Co[facility] HospitalKfgkgv6926 [facility] [id number] BY: [address] [id number] Free Testosterone(Direct) 2.6 pg/mL (Abnormal) Range: 6.6-18.1 51-Iqm-809357:44 HEPATITIS C ANTIBODY Comments: PATIENT NOT FASTINGPERFORMED BY: [place] [address] [facility] [id number] BY: [address] [id number] ([address]) Hep C Virus Ab 0.1 {s/co_ratio} (Normal) Range: 0.0-0.9 Comments: Negative: < 0.8 Indeterminate: 0.8 - 0.9 Positive: > 0.9 . The CDC recommends that a positive HCV antibody result be followed up with a HCV Nucleic Acid Amplification test (704970). 24-Tso-908999:44 CBC W/AUTO DIFF WBC Comments: PATIENT NOT FASTINGPERFORMED BY: [place] [address] [facility] [id number] BY: [address] [id number] ([address]) Immature Grans (Abs) 0.0 {x10E3/uL} (Normal) Range: [...] 4.14-5.80 WBC 6.1 {x10E3/uL} (Normal) Range: 3.4-10.8 00-Opy-548245:44 METABOLIC PANEL, Comments: PATIENT NOT FASTINGPERFORMED BY: CB [facility] Nuzbli5824 [facility] [id number] BY: BN [facility] Vizgxkiyxn6885 [facility] [id number] [facility] (76358) ALT (SGPT) 17 [iU]/L (Normal) Range: 0-44 [...] 8-27 Glucose 102 mg/dL (Abnormal) Range: 65-99 89-Rqe-498876:15 HgA1C , Office (32816) HgA1C , Office 5.7 % (Normal) Range: 4.6 - 7.1 :30 CBC W/Diff, Automated Comments: [facility] Mwkojwgrfb17[address] [place], [address] Absolute Lymph 1.76 {X10_3/ul} (Normal) Range: 0.83-4.51 [...] 4.6-6.2 WBC 6.7 K/mm3 (Normal) Range: 4.4-11.0 56-Wub-577375:30 Comprehensive Metabolic Profil Comments: [facility] Rtgpincnzy00[address] [place], [address] GAP 9 (Normal) Range: 5-15 CO2 25.0 [...] 7-18 GLU 78 mg/dL (Normal) Range: 70-110 84-Ekl-338096:30 Culture, Urine Comments: [facility] Grcqlsxzdb2864 [place], [address] CUUR See Note (Normal) Comments: Urine CultureCulture exhibits no growth. 06-Bdo-538850:30 Lipid Profile Comments: [facility] Fvvzoiuxak60[address] [place], [address] VLDL 19 mg/dL (Normal) Range: 5-40 LDL [...] 200-240 mg/dL Borderline >240 mg/dL High Risk 03-Jgd-033770:10 Rapid Strep Test, Office (55126) Comments: Negative Rapid Strep Test, Office Negative (Normal) 29-Fyk-11088:51 THROAT CULTURE (67706) Comments: PATIENT NOT FASTINGPERFORMED BY: [employer] LabTachyus [facility] [id number] Information: SRC: Result 1 RRF (Normal) Comments: Routine respiratory ashkan Upper Respiratory Culture Final report (Normal) 42-Ssp-023295:02 Rapid Flu (07551 x 2) Comments: Negative Influenza A Ag Negative (Normal) :45 URINE WARREN CULTURE-IDENTIFICATN Comments: PERFORMED BY: [employer] [facility] Rfaldw3242 [facility] [id number] Information: SRC:UC (03318) Result 1 NG36 (Normal) Comments: No growth in 36 - 48 hours. Urine Culture,Comprehensive Final report (Normal) 12-Qxp-860750:02 Urinalysis, Office (27108) UA - LEUKOCYTE ESTERASE Negative (Normal) UA - NITRITE Negative (Normal) URINE UROBILINGN MASSIEL TIMED Normal mg/dL (Normal) UA - PROTEIN Negative mg/dL (Normal) UA - PH 7 (Normal) UA - BLOOD Negative (Normal) UA - SPECIFIC GRAVITY 1.020 (Normal) UA - KETONES Negative mg/dL (Normal) UA - BILIRUBIN Negative (Normal) UA - GLUCOSE Negative (Normal) 81-Epc-085964:22 CBC W/Diff, Automated Comments: [facility] Vfreoesmun0171 [place], [address] Absolute Lymph 1.50 {X10_3/ul} (Normal) Range: 0.83-4.51 [...] 4.6-6.2 WBC 6.2 K/mm3 (Normal) Range: 4.4-11.0 13-Nxa-896861:22 Comprehensive Metabolic Profil Comments: [facility] Jsuolyadku8365 [place], [address] ; will review opn 11/10 GAP 7 [...] 7-18 GLU 104 mg/dL (Normal) Range: 70-110 01-Mbc-159430:22 Hemoglobin A1c Comments: [facility] Hzgtmkwpmi7685 [address] [place], [place], [address] HGB A1C 5.6 % (Normal) Range: 4.2-6.3 82-Yjb-349330:22 Immunofixation, Serum Comments: [facility] (refer to report for specific site)refer to report for address and phone number PAULA RESULT,S Comment (Normal) Comments: No monoclonality detected. IMMUNOGL M 53 mg/dL (Normal) Range: 20-172 IMMUNO A 169 mg/dL (Normal) Range: 61-437 IMMUNO G 692 mg/dL (Abnormal) Range: 700-1600 05-Fcz-316712:22 [place] L[employer] Chains Comments: [facility] (refer to report for specific site)refer to report for address and phone number KAPPA/LAMBDA % 1.17 (Normal) Range: 0.26-1.65 Comments: Performed at: - [facility] [id number] Director: Hugo Britt PhD, Phone: [phone] FR LAMBDA LT CH 12.3 mg/L (Normal) Range: 5.7-26.3 FR KAPPA LT CHN 14.4 mg/L (Normal) Range: 3.3-19.4 86-Ajt-292761:22 Lipid Profile Comments: [facility] Igibhjhjuo9[address] [place], [place], [address] VLDL 20 mg/dL (Normal) Range: 5-40 LDL [...] 200-240 mg/dL Borderline >240 mg/dL High Risk 93-Xvq-518547:22 Microalb:Creat Ratio,Random UR Comments: [facility] Exaedvonge27[address] [place], [address] ; will review on 11/10 MALB:CREAT 5.6 {mg/g_CRE} (Normal) MICROALBUMIN,UR 7.2 mg/L (Normal) UR CREAT 128.00 mg/dL (Normal) 55-Qtv-927966:22 PSA,Total - Annual Screen Comments: [facility] Sjzbbsywkf8310 [address] [place], [place], [address] PSA,TOT SCREEN 0.63 ng/mL (Normal) Range: 0.00-4.00 Comments: This test was performed using the TPSA assay method for the[facility] chemistry system. Values obtained with differentassay methods cannot be used interchangably.When changing PSA assays in the course of monitoring apatient, additional sequential testing should be carriedout to confirm baseline values. :07 CBC W/Diff, Automated Comments: [facility] [address] [place], [place], [phone] Absolute Lymph 1.42 {X10_3/ul} (Normal) Range: 0.83-4.51 [...] Range: 4.4-11.0 :07 Comprehensive Metabolic Profil Comments: [facility] [address] [place], [place], [address] GAP 8 (Normal) Range: 5-15 CO2 27.0 [...] 7-18 GLU 104 mg/dL (Normal) Range: 70-110 26-Als-023878:07 Hemoglobin A1c Comments: [facility] Zkpzoqymcs8569 [address] [place], [place], [address] HGB A1C 5.6 % (Normal) Range: 4.2-6.3 30-Jta-035916:07 PAULA + Protein Elect, Serum Comments: Is Patient Fasting? [facility] (refer to report for specific site)refer to report for address and phone number NOTE: Comment (Normal) Comments: Protein electrophoresis scan will follow via computer,mail, or childcare aide delivery.Performed at: [address] [id number] Director: Hugo Britt PhD, Phone: [phone] PAULA RESULT,S Comment (Normal) Comments: No monoclonality detected. A/G RATIO 1.2 (Normal) Range: 0.7-1.7 GLOBULIN, TOTAL 3.0 g/dL (Normal) Range: 2.2-3.9 M-SPIKE g/dL (Normal) Comments: Not Observed GAMMA GLOBULIN 0.7 g/dL (Normal) Range: 0.4-1.8 BETA GLOBULIN 1.1 g/dL (Normal) Range: 0.7-1.3 LSZKI-9-MOGE 0.8 g/dL (Normal) Range: 0.4-1.0 TEUMW-6-GEAD 0.3 g/dL (Normal) Range: 0.0-0.4 ALBUMIN 3.3 g/dL (Normal) Range: 2.9-4.4 IMMUNOGL M 53 mg/dL (Normal) Range: 20-172 IMMUNO A 177 mg/dL (Normal) Range: 61-437 IMMUNO G 761 mg/dL (Normal) Range: 700-1600 PROTEIN,TOTAL 6.3 g/dL (Normal) Range: 6.0-8.5 17-Wob-122371:07 Lipid Profile Comments: [facility] [address] [place], [place], [address] VLDL 21 mg/dL (Normal) Range: 5-40 LDL [...] 200-240 mg/dL Borderline >240 mg/dL High Risk :01 CBC W/Diff, Automated Comments: [facility] [address]we[address] [place], [address] Absolute Lymph 1.62 {X10_3/ul} (Normal) [...] 4.6-6.2 WBC 7.6 K/mm3 (Normal) Range: 4.4-11.0 16-Vpr-975125:01 Comprehensive Metabolic Profil Comments: [facility] Zyzpoywojl7833 [place], [place], [address] ; has apt today GAP 7 (Normal) [...] 7-18 GLU 96 mg/dL (Normal) Range: 70-110 64-Oat-042233:01 Lipid Profile Comments: [facility] Xmtqxidons15[address] [place], [place], [address] VLDL 11 mg/dL (Normal) Range: 5-40 LDL [...] 200-240 mg/dL Borderline >240 mg/dL High Risk 77-Rbg-377855:01 Lipoprotein A 369 nmol/L (Abnormal) Comments: [facility] (refer to report for specific site)refer to report for address and phone number Comments: Results confirmed ondilution.Note: Values greater than or equal to 75 nmol/L may indicate an independent risk factor for CHD, but must be evaluated with caution when applied to non-Ca ucasian populations due to the influence of genetic factors on Lp(a) across ethnicities.Performed at: [employer] [facility] [id number] Director: Hugo Britt PhD, Phone: [phone] 36-Qzl-379963:56 HgA1C , Office (25595) HgA1C , Office 5.6 % (Normal) Range: 4.6 - 7.1 8-Sis-227964:19 ANCA Panel Comments: PATIENT NOT FASTINGPERFORMED BY: [address] [id number] BY: [employer] ([employer]) [address] [id number] Atypical pANCA <1:20 {titer} Comments: The atypical [...] follow up testing ofpositive sera with both CA-3 and MPO-ANCA enzyme immunoassays. Asmany as 5% serum samp les are positive only by EIA.Ref. AM J Clin Pathol 1999;111:507-513. Cytoplasmic (C-ANCA) <1:20 {titer} (Normal) Antiproteinase 3 (CA-3) Abs <3.5 U/mL (Normal) Range: 0.0-3.5 Antimyeloperoxidase (MPO) Abs <9.0 U/mL (Normal) Range: 0.0-9.0 :19 Antinuclear Antibodies Comments: PATIENT NOT FASTINGPERFORMED BY: [address] [id number] BY: [facility] [place] [id number] Direct JOHN Direct Negative (Normal) :1 C-Reactive Protein, 2.1 mg/L (Normal) Comments: PATIENT NOT FASTINGPERFORMED BY: [address] [id number] BY: [facility] [facility] [place] [id number] Quant Range: 0.0-4.9 :19 Rheumatoid Arthritis Comments: PATIENT NOT FASTINGPERFORMED BY: [address] [id number] BY: [place] [id number] [facility] [id number] Factor RA Latex Turbid. 7.8 {IU/mL} Range: 0.0-13.9 (Normal) Sedimentation 8 mm/h (Normal) Comments: PATIENT NOT FASTINGPERFORMED BY: [address] [id number] BY: [facility] [facility] [id number] :19 Rate-Westergren Range: 0-30 Thyroid Peroxidase (TPO) 8 {IU/mL} (Normal) Comments: PATIENT NOT FASTINGPERFORMED BY: [address] [id number] BY: [facility] [facility] [place] [id number] :19 Ab Range: 0-34 :19 Thyroxine (T4) Free, Comments: PATIENT NOT FASTINGPERFORMED BY: [address] [id number] BY: [facility] [facility] [place] [id number] Direct, S T4,Free(Direct) 1.11 ng/dL Range: 0.82-1.77 (Normal) Triiodothyronine,Free,Seru 2.5 pg/mL (Normal) Comments: PATIENT NOT FASTINGPERFORMED BY: [facility]1447 [facility] [id number] BY: [facility]6370 [facility] [id number] 2:19 m Range: 2.0-4.4 TSH 3.450 {uIU/mL} Comments: PATIENT NOT FASTINGPERFORMED BY: [facility] [id number] BY: [facility]6370 [facility] [id number] 2:19 (Normal) Range: 0.450-4.500 6-Pdi-158471:30 Pathology Report Comments: PERFORMED BY: [facility] LabRoberts Chapel Zmhii15758 [facility] [id number] Information: [id number] See MATER Comments: Material submitted: .FOREHEAD SHAVE [...] IN CASSETTE(S) A./CORCOR/CORPa thologist provided ICD-10:D48.5, L90.9CPT .523821 53-Gbd-01315:22 TESTOSTERONE FREE (48803) Comments: PATIENT WAS FASTINGPERFORMED BY: [employer] [facility] [id number] BY: [employer] [id number] Free Testosterone(Direct) 2.5 pg/mL (Abnormal) Range: 6.6-18.1 55-Ngt-17277:22 VITAMIN B-12 (CYANOCOBALAMIN) Comments: PATIENT WAS FASTINGPERFORMED BY: [employer] [facility] [id number] BY: Lin[employer] [id number] ([address]) Vitamin B12 638 pg/mL (Normal) Range: 211-946 13-Spr-37424:22 CBC W/AUTO DIFF WBC Comments: PATIENT WAS FASTINGPERFORMED BY: [employer]70 [facility] [id number] BY: Live [employer] [id number] Inf ormation: NURSE DRAW (38759) Immature Grans (Abs) 0.0 {x10E3/uL} (Normal) Range: [...] 4.14-5.80 WBC 7.3 {x10E3/uL} (Normal) Range: 3.4-10.8 50-Swu-37724:22 METABOLIC PANEL, Comments: PATIENT WAS FASTINGPERFORMED BY: CB [facility] Onxuuf5407 [facility] [id number] BY: [facility] [address] [id number] [facility] (58871) ALT (SGPT) 12 [iU]/L (Normal) Range: 0-44 [...] Glucose, Serum 100 mg/dL (Abnormal) Range: 65-99 72-Rhs-54698:52 CBC W/Diff, Automated Comments: [facility] [address]pmj[address] Andrea [place], [place], [address] Absolute Lymph 1.73 {X10_3/ul} (Normal) Range: 0.83-4.51 [...] 4.6-6.2 WBC 6.0 K/mm3 (Normal) Range: 4.4-11.0 88-Kms-19278:52 Comprehensive Metabolic Profil Comments: [facility] [address]ju[address] [place], [address] GAP 6 (Normal) Range: 5-15 CO2 26.0 [...] (Normal) Range: 70-110 :52 Hemoglobin A1c Comments: [facility] [address] [place], [place], [address] HGB A1C 5.6 % (Normal) Range: 4.2-6.3 :52 Lipid Profile Comments: [facility] [address] [place], [address] VLDL 21 mg/dL (Normal) Range: [...] High Risk :52 Microalb:Creat Ratio,Random UR Comments: [facility] [address] [place], [place], [address] MALB:CREAT 9.1 {mg/g_CRE} (Normal) MICROALBUMIN,UR 9.0 mg/L (Normal) UR CREAT 99.50 mg/dL (Normal) :52 PSA,Total - Annual Screen Comments: [facility] [address] [place], [address] PSA,TOT SCREEN 0.51 ng/mL (Normal) Range: 0.00-4.00 Comments: This test was performed using the TPSA assay method for Mobile[employer]Me chemistry system. Values obtained with differentassay methods cannot be used interchangably.When changing PSA assays in the course of monitoring apatient, additional sequential testing should be carriedout to confirm baseline values. COLON BIOPSY (CHOOSE See Note (Normal) Comments: [facility] [address] [place], [address] :45 SITE) Comments: Patient: YUMIKO LANDRUM : 1950 (64/M) Acct Num: [id number] Phys: ViktorErnestine belletracy Unit Num: [id number] Loc: LABSPEC Specimen: [id number] Received: 09/11/151646 Spec Type: C ZONIA BX TISSUES TISSUES: GROSS DESCRIPTION A - [...] is totally submitted in one cassette. / IRON:momo 09/11 TC:1 CPT:72789 x2 HEADER OPERATION: Colonoscopy with biopsy PRE-OP DIAGNOSIS: Screening/polyp TISSUE SUBMITTED: A - Polyp cecum, R/O adenoma, B - Polyp sigmoid, R/O adenoma MICROSCOP IC DESCRIPTION Slides are reviewed. MICROSCOPIC DIAGNOSIS A. Polyp cecum, biopsy: Fragments of tubular adenoma. B. Polyp sigmoid, biopsy: Fragments of tubular adenoma. IRON:momo 09/15/15 Signed Pamella Son 09/15/15 <signature on file> 04-Wny-504958:37 CBC W/Diff, Automated Comments: [facility] [address] [place], [place], [address] ; noon-emergent till apt Absolute Lymph 1.39 [...] 4.6-6.2 WBC 6.5 K/mm3 (Normal) Range: 4.4-11.0 76-Aqn-454459:37 Comprehensive Metabolic Profil Comments: [facility] [address]. [place], [place], [address] GAP 6 (Normal) Range: 5-15 CO2 27.0 [...] <126 mg/dLsuggests IMPAIRED HOMEOSTASIS per A.D.A. criteria. 70-Aph-579819:37 Hemoglobin A1c Comments: [facility] [address] [facility] [place], [address] HGB A1C 5.6 % (Normal) Range: 4.2-6.3 90-Tcz-708822:37 Lipid Profile Comments: [facility] [address] [place], [address] VLDL 17 mg/dL (Normal) Range: [...] 200-240 mg/dL Borderline >240 mg/dL High Risk 6-Une-236554:12 Factor II, DNA Analysis Comments: [facility] (refer to report for specific site)refer to report for address and phone number COMMENT Comment (Normal) Comments: Genetic Counselors are available for health care providersto discuss results at [phone] [place] (2161).Methodology:DNA analysis of the Factor II gene was performed by PCRamplification followed by restric tion analysis. Thediagnostic sensitivity is >99% for both. All the tests mustbe combined with clinical information for the most accurateinterpretation. Molecular-based testing is highly accurate,but as in any laboratory test, diagnostic errors may occur.Matthewt SR, et al. Blood. 1996; 88:1285-4894.Diallo EA. Circulation. 2004; 110:e15-e18.Bobby I, et al. Arterioscler Thromb Vasc Biol. 1999;19:700 -703.Lance Shea, PhDRuthie Cooper, PhDAnahy Delgado, Lorena Beal, Xiomara Easley, PhDKelly Benjamin, PhDPerformed at: TG - [facility] HFL[address] [place], [place] [id number] villa: Vilma Butterfield MD, Phone: [phone] FACTOR II,DNA Comment (Normal) Comments: NEGATIVENo mutation identified.Comment:A point mutation ([id number]) in the factor II (prothrombin)gene is the [...] individual mutations. This assaydetects only the prothrombin X24470L mutation and doesnot measure genetic abnormalities elsewhere i n thegenome. Other thrombotic risk factors may be pursuedthrough systematic clinical laboratory analysis. Thesefactors include the R506Q ([place]) mutation in the Factor Vgene, plasma homocysteine levels , as well as testing fordeficiencies of antithrombin III, protein C and protein S. 46-Urn-93184:42 Miscellaneous Comments: Comments: [id number],PLASMA,[facility](s) Ordered: [id number],PLASMA,[facility] [address] [place], [address] Lab Procedure MISC Comments: TEST RESULT UNITS REFERENCE INTERVALAntithrombin III, Func/ImmunolAntithrombin Activity 97 % 75 - 135Antithrombin Antigen 97 % 75 - 130 LAB (Normal) TESTING PERFORMED AT [facility]. ORIGINAL REPORT ON FILE IN LAB CONTAINS ADDITIONAL TEST SITE INFORMATION. TEST 1 Throm 15.9 Comments: [facility] (refer to report for specific site)refer to report for address and phone number 9 bin {sec} Range: 0.0-20.0 - Time (Normal) Comments: Performed at: BN - [address] [id number] Director: Joseph Velez MD, Phone: [phone] F e b - 2 0 1 6 9 : 4 2 :34 CBC W/Diff, Automated Comments: [facility] [address] [place], [place], [address] Absolute Lymph 1.34 {X10_3/ul} (Normal) Range: 0.83-4.51 [...] 4.6-6.2 WBC 5.3 K/mm3 (Normal) Range: 4.4-11.0 85-Smq-79925:34 Comprehensive Comments: Comments: [id number],Gabriela PALMERBelle[facility] [address] [place], [address] ; apt today Metabolic Profil GAP 8 [...] for health careproviders to discuss results at [phone] (4214).Methodology:DNA analysis of the Factor V gene was performed by allele-specific PCR. The diagno stic sensitivity and specificity is>99% for both. Molecular-based testing is highly accurate,but as in any laboratory test, diagnostic errors may occur.All test results must be combined with clinical informationfor the most accurate interpretation.References:Rodrick Disla (1996). Clin Lab Med 16:169-186.Lance Shea, PhDRuthie Cooper, PhDAnahy Delgado, Lorena Beal, PhDBette lugo, PhDKelly Benjamin, PhDPerformed at: - [facility]Co[facility] [place] [address] [place], [place] [id number] Director: Joseph Velez MD, Phone: [phone] at: [facility] LabCo DBB3190 [place], [place] [id number] Director: Vilma Butterfield MD, Phone: [phone] FACTOR V LEIDEN Comment (Normal) Comments: Result: [...] in the workup for venous thrombosis include [id number] mutation in the factor II (prothrombin) gene,protein S and C deficiency, and antithrombin deficiencies.Anticardiolipin antibody and lupus anticoagu lant analysismay be appropriate for certain patients, as well ashomocysteine levels.Contact your local [facility] for information on how to orderadditional testing if desired. :34 Hemoglobin A1c Comments: [facility] [address] [place], [place], [address] HGB A1C 5.6 % (Normal) Range: 4.2-6.3 :34 Lipid Profile Comments: Comments: [id number],SPENCERMet[facility] [address]xkiq[address] [place], [address] VLDL 17 mg/dL (Normal) Range: [...] 200-240 mg/dL Borderline >240 mg/dL High Risk 32-Qgi-19027:34 Miscellaneous Lab Comments: Comments: [id number],BLUEANDRED,FZTest(s) Ordered: [id number] BLAKE FZWLancaster Municipal Hospital [address]vxm[address] [place], [address] Procedure MISC Comments: TEST RESULT UNITS REFERENCE [...] anticoagulant is not de tected. aCL and Z2VW2gsjwkemhne are normal.ANTIPHOSPHOLIPID SYNDROME ASSESSMENT SUMMARY-No evidence of a lupus anticoagulant, B2GP1 or aCLantibodies. As antibody titers may fluctuate with time,repeat te sting may be indicated if antiphospholipid syndromeis suspected.ANTIPHOSPHOLIPID SYNDROME ASSESSMENT DEFINITIONS-aCL- anticardiolipin (antibodies to cardiolipin); T7BE8-kgdwzsgyoi to Beta-2 Glycoprotein 1; LA- lupus anticoagulant(which is identified with the dRVVT and/or hexagonalphospholipid neutralization assays); aPL- antibodies toprotein/phospholipid complexes such as LA, aCL, and W5BG3agcusrsisb; APS- antiphospholipid syndrome; DTI-directthrombin inhibitors.-EMAIL MARKETING ASSISTANT:For questions regarding panel interpretation, please contactHalle Arrington M.D. ([place]) or Itzel Jay/Abdullahi hoyt Coagulation at . DISCLAIMERThese assessments and [...] Mathews et al. J Thromb Haemost. 2009; 7(10):7226-1798.(2) Tyrone Lugo et al. J Thromb H aemost. 2006;4(2):295-306.(3) Keith DA et al. Blood. 2007;110(9): 8394-2928. TESTING PERFORMED AT [facility]. ORIGINAL REPORT ON FILE IN LAB CONTA INS ADDITIONAL TEST SITE INFORMATION. :34 Protein C Defic. Profile Comments: [facility] (refer to report for specific site)refer to report for address and phone number PROT C,FUNC 193 % (Abnormal) Range: 74-151 PROTEIN C 114 % (Normal) Range: 70-140 :34 Protein S Defic. Profile Comments: [facility] (refer to report for specific site)refer to report for address and phone number PROTEIN S, FUNC 90 % (Normal) Range: 60-145 PROTEIN S, FREE 99 % (Normal) Range: 56-124 PROTEIN S,TOTAL 136 % (Normal) Range: 58-150 :54 CBC W/Diff, Automated Comments: [facility] [address] [place], [place], [address] Absolute Lymph 1.61 {X10_3/ul} (Normal) Range: 0.83-4.51 [...] 4.6-6.2 WBC 7.1 K/mm3 (Normal) Range: 4.4-11.0 71-Rmz-460977:54 Comprehensive Metabolic Profil Comments: [facility] [address] [place], [address] GAP 7 (Normal) Range: 5-15 CO2 26.0 [...] 7-18 GLU 98 mg/dL (Normal) Range: 70-110 88-Ibq-789885:54 Lipid Profile Comments: [facility] [address] [place], [address] ; apt today VLDL 19 [...] 200-240 mg/dL Borderline >240 mg/dL High Risk 21-Sep-20148:55 Comprehensive Metabolic Profil Comments: Test performed at:[facility] Zjjmvhbuby1605 [facility] [place] [address] GAP 7 (Normal) Range: 5-15 [...] Comments: Please note revised CREATININE reference range /22/2015. BUN 15 mg/dL (Normal) Range: 7-18 GLU 103 mg/dL (Normal) Range: 70-110 :55 Hemoglobin A1c Comments: Test performed at:[facility] [address] [place] [address] HGB A1C 6.0 % (Normal) Range: 4.2-6.3 :55 Lipid Profile Comments: Test performed at:[facility] [address] [place] [address] VLDL 17 mg/dL (Normal) Range: 5-40 LDL [...] mg/dL Borderline >240 mg/dL High Risk :49 Anti-dsDNA Ab Comments: ADDED PER VERBAL ORDER - FAXED ORDER TO FOLLOWSpecimen Comment: A duplicate report has been generated due to demographicSpecimen Comment: updates.Test performed at:[facility] Laboratory1 [address] [place] [address] dsDNA AB 12 {IU/mL} (Abnormal) Range: 0-9 Comments: Negative <5 Equivocal 5 - 9 Positive >9; ADDENDA: non-emergent because has apt today to discuss. 48-Tom-423492:49 ANTINUCLEAR ANTIBODIES DIRECT Comments: Test performed at:[facility] [address]jdjf[address] [place] [address] JOHN-DIRECT Positive (Abnormal) Comments: Performed at: [facility] Lab[address] [id number] Director: Reno Yanes PhD, Phone: [phone] 38-Kvi-978500:49 CBC W/Diff, Automated Comments: Test performed at:[facility] Iyvcmkgdee6380 [facility]. [place] [address] Absolute Lymph 1.22 {X10_3/ul} (Normal) Range: 0.83-4.51 [...] 4.6-6.2 WBC 4.9 K/mm3 (Normal) Range: 4.4-11.0 :49 Comprehensive Metabolic Profil Comments: Test performed at:[facility] Xxuetygxwm0426 [facility] [place] [address] GAP 6 (Normal) Range: 5-15 CO2 27.0 [...] 7-18 GLU 104 mg/dL (Normal) Range: 70-110 :49 CRP Comments: Test performed at:[facility] [address]wvtss[address]6347 [facility] [place] [address] C-REACTIVE PROT < 2.90 mg/L (Normal) Range: 0.0-3.0 Comments: C-Reactive Protein (CRP) provides useful information for thediagnosis, therapy and monitoring of inflammatory processesand associated diseases. For the evaluation of Relative Riskfor Cardiovascular Dise ase, a High Sensitivity CRP (HSCRP)should be ordered. 15-Lzp-307060:49 Culture, Urine Comments: Test performed at:[facility] [address] [place] [address] CUUR See Note (Normal) Comments: Urine CultureCulture exhibits no growth.; ADDENDA: Pt has apt today, will discuss then 00-Ibv-560260:49 Erythrocyte Sed Rate Comments: Test performed at:[facility] [address] [place] [address] SED RATE 21 mm/h (Abnormal) Range: 0-20 89-Prg-037376:49 Hemoglobin A1c Comments: Test performed at:[facility] [address] [place] [address] HGB A1C 5.8 % (Normal) Range: 4.2-6.3 24-Nii-913538:49 Lipid Profile Comments: Test performed at:[facility] [address]ys[address]ckngd17[address] [place] [address] VLDL 8 mg/dL (Normal) Range: 5-40 LDL [...] 200-240 mg/dL Borderline >240 mg/dL High Risk 11-Lsw-822950:49 Microalb:Creat Ratio,Random UR Comments: Test performed at:[facility] [address] [place] [address] MALB:CREAT 12.2 {mg/g_CRE} (Normal) MICROALBUMIN,UR 17.2 mg/L (Normal) UR CREAT 140.0 mg/dL (Normal) :49 PSA,Total - Annual Screen Comments: Test performed at:[facility] [address] [place] [address] PSA,TOT SCREEN 0.47 ng/mL (Normal) Range: 0.00-4.00 Comments: This test was performed using the TPSA assay method for [employer] chemistry system. Values obtained with differentassay methods cannot be used interchangably.When changing PSA assays in the course of monitoring apatient, additional sequential testing should be carriedout to confirm baseline values. :49 Thyroid Stim Hormone (TSH) Comments: Test performed at:[facility] [address] [place], [place] [address] TSH 1.60 {uIU/mL} (Normal) Range: 0.358-3.74 :49 Urinalysis, Complete Comments: How was Urine Obtained? Urine, RandomTest performed at:[facility] [address] [place], [place] [address] MUCUS, URINE 0 SEEN {/hpf} (Normal) BACTERIA [...] (Normal) CLARITY Clear (Normal) COLOR Yellow (Normal) :49 Urinalysis, Complete Comments: How was Urine Obtained? Urine, RandomTest performed at:[facility] [address]xlutjidfv1528 [facility] [place] [address] MUCUS, URINE 2+ {/hpf} (Normal) [...] (Normal) CLARITY Clear (Normal) COLOR Yellow (Normal) 60-Abr-611275:07 Comprehensive Metabolic Profil Comments: Test performed at:[facility] Vtnxqymbnm7791 [facility]. [place], [place] [address] GAP 6 (Normal) Range: 5-15 CO2 28.0 [...] 7-18 GLU 108 mg/dL (Normal) Range: 70-110 63-Oxl-130468:07 CPK Total, Creatine Kinase Comments: Test performed at:[facility] [address]mk[address] [place] [address] CPK TOTAL 91 U/L (Normal) Range: 39-308 03-Vhu-925600:56 Rapid Flu (55872 x 2) Influenza A Ag negative (Normal) 7-Cyi-948735:28 URINE WARREN CULTURE-MASSIEL COL Comments: PATIENT NOT FASTINGPERFORMED BY: [facility] Tqpphi6631 [facility] [id number] Information: SRC:UR [id number] COUNT (79013) Result 1 ECV (Abnormal) Comments: Escherichia coli, [...] R Urine Final report Culture,Comprehensi (Abnormal) ve 7-Pys-869721:58 Urinalysis, Office (39842) UA - LEUKOCYTE ESTERASE Small (Normal) UA - NITRITE Negative (Normal) URINE UROBILINGN MASSIEL TIMED 2 mg/dL (Normal) UA - PROTEIN 30 mg/dL (Normal) UA - PH 6.0 (Normal) Comments: 5.5 UA - BLOOD Hemolyzed Small (Normal) UA - SPECIFIC GRAVITY 1.030 (Abnormal) UA - KETONES Negative mg/dL (Normal) UA - BILIRUBIN Small (Normal) UA - GLUCOSE Negative (Normal) 2-Ktm-528679:41 URINE WARREN CULTURE-MASSIEL COL Comments: PATIENT NOT FASTINGPERFORMED BY: Live MatrixCoLourdes Specialty HospitalRtyead5261 [facility] [id number] Information: SRC: URINE COUNT (09113) Result 1 ECV (Abnormal) Comments: Escherichia coli, [...] R Urine Final report Culture,Comprehensi (Abnormal) ve 3-Wna-728689:27 Urinalysis, Office (29749) UA - LEUKOCYTE ESTERASE Trace (Normal) UA - NITRITE Negative (Normal) URINE UROBILINGN MASSIEL TIMED 2 mg/dL (Normal) UA - PROTEIN Negative mg/dL (Normal) UA - PH 6.0 (Normal) UA - BLOOD Negative (Normal) UA - SPECIFIC GRAVITY 1.010 (Normal) UA - KETONES Negative mg/dL (Normal) UA - BILIRUBIN Negative (Normal) UA - GLUCOSE Negative (Normal) 6-Vjx-303554:30 HgA1C , Office (16339) HgA1C , Office 5.7 % (Normal) Range: 4.6 - 7.1 4-Vew-393666:10 URINE WARREN CULTURE-MASSIEL COL Comments: PATIENT NOT FASTINGPERFORMED BY: [facility]CoLour[facility] Special[facility] HospitalEmchpp7656 [facility] [id number] Information: SRC:UR [id number] COUNT (98654) Result 1 NG36 (Normal) Comments: No growth in 36 - 48 hours. Urine Culture,Comprehensive Final report (Normal) 5-Ztc-543772:58 CBCD PATHR Reviewed (Normal) RBCM NORM C+C [...] 4.6-6.2 WBC 5.2 K/mm3 (Normal) Range: 4.4-11.0 5-Qhy-355794:58 CMP GAP 7 (Normal) Range: 5-15 CO2 [...] CHOL 155 mg/dL (Normal) Comments: <200 mg/dL Voafiyjax959-209 mg/dL Borderline>240 mg/dL High Risk TRIG 121 [...] (Normal) UCLAR Clear (Normal) UCOL Yellow (Normal) 03-Dmc-114251:20 CUUR URC See Note (Normal) Comments: ESBL+ [...] >=320 R (NF) indicates non-formulary drug at [facility]. Approval by Infectious DiseaseSpecialist required before non-formulary drugs may beordered and/or dispensed. 56-Xsx-873886:20 UA Comments: How was Urine Obtained? CLEAN CATCH ANGE 500 /ul (Abnormal) MICA Negative (Normal) UOB 25 /ul (Abnormal) LEESA 6.0 (Normal) Range: 5.0 - 8.0 uPROTU 30 mg/dL (Abnormal) UROBU 1 mg/dL (Abnormal) KETU Negative mg/dL (Normal) SGU 1.015 (Normal) Range: 1.002-1.030 BILIU Negative mg/dL (Normal) GLUR Normal mg/dL (Normal) UCLAR Cloudy (Normal) UCOL Yellow (Normal) 12-Bib-531615:27 A1C 5.6 % (Normal) Range: 4.2-6.3 21-Uip-559538:27 B12 574 pg/mL (Normal) Range: 211-911 06-Rco-710469:27 CBC MPV 8.8 fL (Normal) Range: 6.2-12.0 [...] 4.6-6.2 WBC 6.4 K/mm3 (Normal) Range: 4.4-11.0 07-Ofl-966592:27 CUUR URC Culture exhibits no growth. (Normal) 03-Jps-969036:27 EBGM EBNA 81.6 U/mL (Abnormal) Range: 0.0-17.9 Comments: Negative <18.0Equivocal 18.0 - 21.9Positive >21.9 tEBINT Comment (Normal) Comments: EBV Interpretation ChartInterpretation EBV-IgM VCA-IgG EBNA-IgG EA(D)-IgGEBV Seronegative - - - -Early Phase + - - -Acute Primary + + - +or-InfectionConvalescence/Past - + + +or-InfectionReactivated +or- + + +Infection+ Antibody Present - Antibody Absen tPerformed at: [facility] Lab[address] [id number] Director: Melquiades Hector MD, Phone: [phone] EBEAG <9.0 U/mL (Normal) Range: 0.0-8.9 Comments: [...] - 250 nmol/L)Toxicity >100 ng/mL (>250 nmol/L) :36 BMP Comments: Serial Specimen #1, #2 or [...] 4.6-6.2 WBC 6.0 K/mm3 (Normal) Range: 4.4-11.0 7-Bpl-964069:36 CKMB Comments: Serial Specimen #1, #2 or #3? 1'TROP' Serial specimen #1, #2, #3, or #4: 1 CPKMB 1.6 ng/mL (Normal) Range: 0.0-5.0 Comments: CK-MB and RI Interpretation MB Relative IndexNon-AMI <or= 5 NAIndeterminate > 5 <or= 4AMI > 5 > 4 CPK 167 U/L (Normal) Range: 39-308 8-Ahc-466556:36 TROP < 0.02 ng/mL (Normal) Comments: Serial Specimen #1, #2 or #3? 1'TROP' Serial specimen #1, #2, #3, or #4: 1 Comments: TROPONIN-I EXPECTED VALUES <0.05 NEGATIVE0.06 - 0.59 AT RISK OF [place]> OR = 0.60 SUGGEST [place] :47 HgA1C , Office (00475) HgA1C , Office 6.3 % (Normal) Range: [...] CHOL 147 mg/dL (Normal) Comments: <200 mg/dL Vpamhkicf534-117 mg/dL Borderline>240 mg/dL High Risk :55 Rapid Flu (54395 x 2) Comments: neg Influenza A Ag negative (Normal) 7-Kib-254765:02 FECAL OCCULT- Tubes sent home (17753) FECAL OCCULT HGB ASSAY, QUAL, 1-3 negative [...] {IU/mL} (Normal) Range: 0-100 Comments: Performed at: [facility] Lab[address] Director: Melquiades Hector MD, Phone: [phone] IMM 55 mg/dL (Normal) Range: 40-230 DEBBY 182 mg/dL (Normal) Range: 91-414 IMG 788 mg/dL (Normal) Range: 700-1600 :39 LDH 190 U/L (Normal) Comments: Serial Specimen #1, #2 or #3? 1Is Patient Taking Vitamins or Folic Acid Supplements? N Range: 84-246 :39 PROEL Comments: Is Patient Fasting? Y [id number] Comment (Normal) Comments: Protein electrophoresis scan will follow via computer,mail, or childcare aide delivery. tPROELAG 1.6 (Normal) Range: 0.7-2.0 tPROELIN [...] Supplements? N Range: 250-450 :56 CULTURE, SPUTUM (38704) Comments: PATIENT NOT FASTINGPERFORMED BY: [facility] Ctkjcp2343 [facility] [id number] Information: SRC:[facility] [id number] Result 1 RRF (Normal) Comments: Routine respiratory ashkan Lower Respiratory Culture Final report (Normal) :32 HgA1C , Office (89834) HgA1C , Office 5.9 % (Normal) Range: 4.6 - 7.1 :32 Blood Glucose , Office (34709) Blood Glucose , Office 90 (Normal) :51 [...] 4.6-6.2 WBC 7.2 {k/mm3} (Normal) Range: 4.4-11.0 28-Mki-084836:51 CMP GAP 9 (Normal) Range: 5-15 CO2 [...] CHOL 149 mg/dL (Normal) Comments: <200 mg/dL Gketxfceo209-493 mg/dL Borderline>240 mg/dL High Risk :51 PSA 0.51 ng/mL (Normal) Range: 0.00-4.00 Comments: This test was performed using the TPSA assay method for the[employer] chemistry system. Values obtained with differentassay methods cannot be used interchangably.When changing PSA assays in the course of monitoring apatient, additional sequential testing should be carriedout to confirm baseline values. 44-Dau-109617:59 MISC (Normal) Comments: TEST RESULT LIMITSAntinuclear Antibodies, IFA NegativeNegative <1:80Borderline 1:80Positive >1:80 TESTING PERFORMED AT [facility]. ORIGINAL REPORT ONFILE IN LAB CONTAINS ADDITIONAL [...] 4.6-6.2 WBC 7.8 {k/mm3} (Normal) Range: 4.4-11.0 93-Ffs-705317:32 CMP GAP 10 (Normal) Range: 5-15 CO2 [...] CHOL 154 mg/dL (Normal) Comments: <200 mg/dL Fwnzrkhlg742-269 mg/dL Borderline>240 mg/dL High Risk HDL 64 [...] TSH 1.77 {uIU/mL} (Normal) Range: 0.358-3.74 :32 [facility] 0 SEEN {/hpf} (Normal) UBAC 0 [...] (Normal) UCLAR Clear (Normal) UCOL Yellow (Normal) 76-Ozc-079380:11 AFBCS tAFBC See Note Comments: TESTING PERFORMED AT [facility]. ORIGINAL REPORT ONFILE IN LAB CONTAINS ADDITIONAL TEST SITE INFORMATION. (Normal) CULTURE, ACID FAST FINAL CULTURE REPORT TO FOLLOW IN 6 WEEKS. tAFBSF See Note Comments: TESTING PERFORMED AT [facility]. ORIGINAL REPORT ONFILE IN LAB CONTAINS ADDITIONAL TEST SITE INFORMATION. (Normal) ACID FAST BACILLUS SMEARAcid Fast Smear from Concentrated Specimen :Negative 90-Ska-254822:11 CUFST FUNST See Note Comments: TESTING PERFORMED AT [facility]. ORIGINAL REPORT ONFILE IN LAB CONTAINS ADDITIONAL TEST SITE INFORMATION. (Normal) FUNGUS STAIN No yeast or mold observed. CUF See Note Comments: TESTING PERFORMED AT [facility]. ORIGINAL REPORT ONFILE IN LAB CONTAINS ADDITIONAL TEST SITE INFORMATION. (Normal) CULTURE, FUNGUSNO YEAST OR MOLD ISOLATED AFTER 4 WEEKS. 60-Pqj-610953:11 CUSP RESPC See Note (Normal) Comments: No [...] BACILLUS SMEARNO ACID-FAST BACILLI OBSERVED ON SMEAR. 28-Xvm-958095:23 CUFST FUNST See Note Comments: TESTING PERFORMED AT [facility]. ORIGINAL REPORT ONFILE IN LAB CONTAINS ADDITIONAL TEST SITE INFORMATION. (Normal) FUNGUS STAIN No yeast or mold observed. CUF See Note Comments: TESTING PERFORMED AT [facility]. ORIGINAL REPORT ONFILE IN LAB CONTAINS ADDITIONAL TEST SITE INFORMATION. (Normal) CULTURE, FUNGUSNO YEAST OR MOLD ISOLATED AFTER 4 WEEKS. 48-Gfz-964145:21 AFBCS tAFBC See Note Comments: TESTING PERFORMED AT [facility]. ORIGINAL REPORT ONFILE IN LAB CONTAINS ADDITIONAL TEST SITE INFORMATION. (Normal) CULTURE, ACID FAST FINAL CULTURE REPORT TO FOLLOW IN 6 WEEKS. Tirso See Note Comments: TESTING PERFORMED AT [facility]. ORIGINAL REPORT ONFILE IN LAB CONTAINS ADDITIONAL TEST SITE INFORMATION. (Normal) ACID FAST BACILLUS SMEARAcid Fast Smear from Concentrated Specimen :Negative 66-Sxl-162727:21 CUFST FUNST See Note Comments: TESTING PERFORMED AT [facility]. ORIGINAL REPORT ONFILE IN LAB CONTAINS ADDITIONAL TEST SITE INFORMATION. (Normal) FUNGUS STAIN YEAST OBSERVED CUF See Note Comments: [facility] AT [facility]. ORIGINAL REPORT ONFILE IN LAB CONTAINS ADDITIONAL TEST SITE INFORMATION. (Normal) CULTURE, FUNGUSNO YEAST OR MOLD ISOLATED AFTER 4 WEEKS. 16 AFBSTN SEE Comments: Specimen submitted to Anatomical Pathology Department [facility]. - PATHOLOGY ay REPORT -2 (Normal) 32 2: 00 16 AFBSTN SEE Comments: PATIENT BROUGHT SPECIMEN IN ON 07/11/12. - PATHOLOGY Comments: Specimen submitted to Anatomical Pathology Department fortesting. ay REPORT -2 (Normal) 30 :0 0 12 AFBSTN SEE Comments: PATIENT BROUGHT SPECIMEN IN ON 07/11/12 - PATHOLOGY Comments: Specimen submitted to Anatomical Pathology Department [facility]. ay REPORT -2 (Normal) 39 :0 0 60-Urx-166263:05 WARREN CULTURE-OTHER (77186) Comments: PATIENT NOT FASTINGPERFORMED BY: [facility] [id number] [facility] [id number] Information: SRC: THROAT Result 1 RRF (Normal) Comments: Routine respiratory ashkan Upper Respiratory Culture Final report (Normal) 20-Kbf-037549:23 Rapid Strep Test, Office (32101) Rapid Strep Test, Office Negative (Normal) 1-Nzz-996685:15 CBCMD RBCM NORM C+C {NORMAL} (Normal) PE [...] 4.6-6.2 WBC 8.3 K/mm3 (Normal) Range: 4.4-11.0 5-Jsm-127606:15 CMP GAP 10 (Normal) Range: 5-15 CO2 [...] 7-18 GLU 81 mg/dL (Normal) Range: 70-110 8-Imo-993758:15 LIPID VLDL 12 mg/dL (Normal) Range: 5-40 [...] Alvarado M.D.January 27, 2012 at 2:39:03 PM [id number] Signed GP/GP If you are the refe rring physician and would like to consult with theradiologist who provided this interpretation, please contact Itzel Linares at [phone]. If this radiologist is unavailable, youwill be dir ected to another radiologist to assist. If you are a patient with a question regarding this report, pleasecontactyour referring physician directly. Professional Interpretation Provided By: [employer], Phone , These documents contain legally protected [...] destructionofthese documents. Dictated on 01/26/12 1713 by Rica Alvarado MDscribed on 01/27/12 1443 by ITS IMPORTSign by Ellie Alvarado MD on 01/27/12 1444 Sign by: Wilfredo Alvarado [...] Schwarz D.O.January 26, 2012 at 8:55:02 PM [id number] Signed BE/B E If you are the referring physician and would like to consult with theradiologist who provided this interpretation, please contact Yogi Schwarz D.O. at [phone]. If this radiologist is unavailable, yo u will bedirected to another radiologist to assist. If you are a patient with a question regarding this report, pleasecontactyour referring physician directly. Professional Interpretation Provided By: [employer], Phone , These documents contain legally protected [...] destructionofthese documents. Dictated on 01/26/12 1710 by Popeye Schwarz MDianTranscribed on 01/26/12 2059 by ITS IMPORTSign by Yogi Schwarz MD on 01/26/12 2100 Sign by: Yogi Schwarz MD 83-Oxw-829059:13 CUSP RESPC See Note (Normal) Comments: No [...] GRAM POSITIVE COCCI IN CHAINS AND CLUSTERS 53-Guh-908441:56 HgA1C , Office (81643) HgA1C , Office 6.1 % (Normal) Range: 4.6 - 7.1 23-Hcr-725214:56 Blood Glucose , Office (03007) Blood Glucose , Office 116 (Normal) : BTNP 45.4 pg/mL (Normal) :01 CBCMD RBCM NORM C+C {NORMAL} (Normal) PE [...] mg/dL suggests IMPAIRED HOMEOSTASIS per A.D.A. criteria. :01 TSH 1.98 {uIU/mL} (Normal) Range: 0.358-3.74 90-Rzr-342743:25 CMP GAP 7 (Normal) Range: 5-15 CO2 [...] 7-18 GLU 107 mg/dL (Normal) Range: 70-110 :25 LIPID VLDL 12 mg/dL (Normal) Range: 5-40 [...] 200-240 mg/dL Borderline >240 mg/dL High Risk :25 MIACRE tMICROCREAT 6.7 {mg/g_CRE} (Normal) MIALB 5.5 mg/L (Normal) CREU 81.1 mg/dL (Normal) :25 PSA 0.50 ng/mL (Normal) Range: 0.00-4.00 Comments: NEW TEST ASSAY METHOD JULY 12, 2011This test was performed using the TPSA assay method for the[employer] chemistry system. Values obtained with differentassay methods cannot be used interchangably.When ch anging PSA assays in the course of monitoring apatient, additional sequential testing should be carriedout to confirm baseline values. :25 [facility] 0 SEEN {/hpf} (Normal) UBAC 0 [...] UCOL YELLOW (Normal) :44 HgA1C , Office (42036) HgA1C , Office 6.3 % (Normal) Range: 4.6 - 7.1 :44 Blood Glucose , Office (82770) Blood Glucose , Office 114 (Normal) :13 HgA1C , Office (14173) HgA1C , Office 6.2 % (Normal) Range: 4.6 - 7.1 :13 Blood Glucose , Office (96351) Blood Glucose , Office 100 (Normal) :55 HgA1C , Office (13931) HgA1C , Office 5.8 % (Normal) Range: 4.6 - 7.1 :55 Blood Glucose , Office (30679) Blood Glucose , Office 85 (Normal) :51 WARREN CULTURE-OTHER (57655) Comments: PATIENT NOT FASTINGPERFORMED BY: [facility]nf[facility] [id number] Information: SRC:THRT [id number] Result 1 Yeast isolated. (Normal) Comments: Heavy growthRequest for further identification must be madewithin 1 week. Upper Respiratory Culture Final report (Normal) :14 Rapid Strep Test, Office (48811) Rapid Strep Test, Office Negative (Normal) :24 [...] a High Sensitivity CRP (HSCRP)should be ordered. :00 CBCD,SMEAR DIFF RED CELL MORPH SeeNote {NORMAL} [...] 4.6-6.2 WBC 6.6 K/mm3 (Normal) Range: 4.4-11.0 : ESR SED RATE 36 mm/h (Abnormal) Range: 0-20 :00 MISC LAB TEST . (Normal) Comments: TEST [...] serialsampling is recomme nded. TESTING PERFORMED AT [facility]. ORIGINAL REPORT ON FILE IN LAB CONTAINS [...] cells for the productionof interferon gamma.Performed at: [facility] Lab[address] [id number] Director: Joseph Velez MD, Phone: [phone] QFT AG - NIL 0 {IU/mL} (Normal) [...] 7-18 GLU 100 mg/dL (Normal) Range: 70-110 :03 COMPLETE UA MUCUS, URINE 2+ {/hpf} (Normal) [...] >240 mg/dL High Risk :03 VIT D,25 45043 38.0 ng/mL (Normal) Comments: appt 03-08-10 Range: 32.0-100.0 Comments: Effective January 11, 2011 Vitamin D, 25-Hydroxy reference intervals will be changing to 30-100. .Recent studies consider the lower li chilo of 32.0 ng/mL to be athreshold for optimal health.Mark LUDWIG. J Nutr. 2004;135(2):317-22.Performed at: [facility] Lab[address] Director: Lakshmi Pino MD, Phone: [phone] VITAMIN B12 696 pg/mL (Normal) Range: 254-1320 Comments: There is a low frequency possibility that high titers ofintrinsic blocking antibodies may not be completely inactivated during the reaction pretreatment stepof this testing method. If test results are i n conflictwith the clinical diagnosis, patient should be testedfor the presence of intrinsic factor blocking antibodies. 31-Eyy-407240:05 Rapid Strep Test, Office (91853) Rapid Strep Test, Office Negative (Normal) :00 CULTURE, THROAT See Note (Normal) Comments: Normal throat ashkan isolated. No beta-hemolyticstreptococcus isolated. 71-Hgx-85431:00 CHEST WITHOUT CONTRAST Radiology Report See Note [...] 10/11/10 0244 Sign by: Clarke Butt MD 38-Kul-731921:58 GALLBLADDER Radiology Report See Note (Normal) Comments: PROCEDURE: ABDOMINAL ULTRASOUND - RIGHT UPPER QUADRANT REASON FOR VISIT: Male, 60 years old. Abdominal pain. TECHNIQUE: Ultrasound evaluation of the right upper quadrant wasperformed w ith real-morena e ultrasonography and static grayscale imaging. [...] acute cholecystitis. Dictated on 10/07/10 1038 by Fred Alvarado MDscribed on 10/08/10 1401 by ITS IMPOR TSign by Jake Alvarado MD on 10/08/10 1402 Sign by: Jake Alvarado MD 61-Exr-16087:00 CULTURE, URINE URINE CULTURE See Note {CFU/mL} (Normal) Comments: COLONY COUNT <1000 ORGANISM 1: MIXED GRAM POSITIVE ORGANISMS 06-Zoh-139549:19 Urinalysis, Office (76816) UA - BILIRUBIN Negative (Normal) UA - BLOOD Non Hemolyzed Trace (Normal) UA - GLUCOSE Negative (Normal) UA - KETONES Negative mg/dL (Normal) UA - LEUKOCYTE ESTERASE Negative (Normal) UA - NITRITE Negative (Normal) UA - PH 7.0 (Normal) UA - PROTEIN Negative mg/dL (Normal) UA - SPECIFIC GRAVITY 1.010 (Normal) URINE UROBILINGN MASSIEL TIMED Normal mg/dL (Normal) 25-Fnt-49966:00 ABDOMEN/PELVIS WITHOUT CONT Radiology Report See Note [...] vascular disease. Dictated on 10/05/101828 by Deshawn Marie MDTranscribed on 10/05/101954 by ITS IMPORTSign by [...] on 09/16/101715 Sign by: Cosmo Mahmood MD 02-Uhj-499013:11 HgA1C , Office (45388) HgA1C , Office 6.2 % (Normal) Range: 4.6 - 7.1 :11 Blood Glucose , Office (46311) Blood Glucose , Office 90 (Normal) :28 [...] mg/dL High Risk :53 HgA1C , Office (17502) HgA1C , Office 6.4 % (Normal) Range: 4.6 - 7.1 :53 Blood Glucose , Office (66377) Blood Glucose , Office 108 (Normal) :39 CULTURE, URINE URINE CULTURE Culture exhibits no growth. (Normal) :54 Urinalysis, Office (25461) UA - BILIRUBIN Negative (Normal) UA - BLOOD Negative (Normal) UA - GLUCOSE Negative (Normal) UA - KETONES Negative mg/dL (Normal) UA - LEUKOCYTE ESTERASE Negative (Normal) UA - NITRITE Negative (Normal) UA - PH 7.0 (Normal) UA - PROTEIN Negative mg/dL (Normal) UA - SPECIFIC GRAVITY 1.010 (Normal) URINE UROBILINGN MASSIEL TIMED Normal mg/dL (Normal) :37 HgA1C , Office (49482) HgA1C , Office 6.1 % (Normal) Range: 4.6 - 7.1 :37 Blood Glucose , Office (05788) Blood Glucose , Office 96 (Normal) :46 CBCD,SMEAR DIFF PLT EST SeeNote (Normal) Comments: [...] 4.6-6.2 WBC 7.5 K/mm3 (Normal) Range: 4.4-11.0 71-Gwr-183843:46 COMP METABOLIC GAP 7 (Normal) Range: 5-15 [...] 7-18 GLU 105 mg/dL (Normal) Range: 70-110 :46 LIPID VLDL 10 mg/dL (Normal) Range: 5-40 [...] mg/L (Normal) UR CREAT 166.2 mg/dL (Normal) :46 PSA, SCREEN 0.5 ng/mL (Normal) Range: 0.0-4.0 :22 HgA1C , Office (26761) HgA1C , Office 6.1 % (Normal) Range: 4.6 - 7.1 :22 Blood Glucose , Office (14496) Blood Glucose , Office 123 (Normal) :47 HgA1C , Office (17316) HgA1C , Office 6.3 % (Normal) Range: 4.6 - 7.1 :47 Blood Glucose , Office (62490) Blood Glucose , Office 103 (Normal) :05 [...] (Normal) GLU 107 mg/dL (Normal) Range: 70-110 36-Hxj-27560:05 LIPID HDL 58 mg/dL (Normal) Comments: Reference RangeHDL <40 mg/dL Low HDL CholesterolHDL >or= 60 mg/dL High HDL Cholesterol LDL 77 mg/dL (Normal) Range: 0-130 VLDL 7 mg/dL (Normal) Range: 5-40 CHOL 142 mg/dL (Normal) Comments: <200 mg/dL Wzhldbzpk341-734 mg/dL Borderline>240 mg/dL High Risk TRIG 35 mg/dL (Normal) Comments: Serum Triglycerides Reference IntervalNormal <150 mg/dLBorderline high 150 - 199 mg/dLHigh 200 - 499 mg/ dLVery High > or = 500 mg/dL 5-Zhc-591139:24 HgA1C , Office (71145) HgA1C , Office 6.2 % (Normal) Range: 4.6 - 7.1 0-Mzx-288679:23 Blood Glucose , Office (53826) Blood Glucose , Office 96 (Normal) 67-Mvp-968806:07 GASTRIC EMPTYING STUDY Radiology Report See Note (Normal) Comments: Exam Number: [id number] GASTRIC EMPTYING STUDY A gastric emptying study was performed. The patient ingested 1 mCi [id number] Sulfur colloid with oatmeal. HISTORYThis is a 58-year-old male patie nt with hist ory of bloating andgastroesophageal reflux. FINDINGSAt 1 hour, there is complete emptying of the stomach of theradiopharmaceutical. This is a normal study. IMPRESSIONNormal examination. There is no e vidence of gastric retention. Reported By: WILFREDO ALVARADO 2-Oog-798592:33 HgA1C , Office (47705) HgA1C , Office 5.9 % (Normal) Range: 4.6 - 7.1 :33 Blood Glucose , Office (08818) Blood Glucose , Office 111 (Normal) :08 [...] Range: 0.0-4.0 :46 Blood Glucose , Office (60490) Blood Glucose , Office 156 (Normal) :46 HgA1C , Office (87141) HgA1C , Office 5.8 % (Normal) Range: 4.6 - 7.1 :12 HgA1C , Office (87268) Comments: done HgA1C , Office 5.8 % (Normal) Range: 4.6 - 7.1 :12 Blood Glucose , Office (98007) Comments: done Blood Glucose , Office 99 [...] 47-70 WBC 7.0 K/mm3 (Normal) Range: 4.4-11.0 :06 COMP METABOLIC A/G 1.1 {RATIO} (Normal) Range: [...] mg/L (Normal) UR CREAT 152.1 mg/dL (Normal) :22 FERRITIN 92 ng/mL (Normal) Range: 26-388 :22 TRANSFERRN 4937 260 mg/dL (Normal) Range: 200-370 Comments: Performed At: [address] [id number] Blood Glucose , Office (66154) Blood Glucose , Office 92 (Normal) :44 HgA1C , Office (15881) HgA1C , Office 5.7 % (Normal) Range: 4.6 - 7.1 :40 GLU GTT-2 HOUR 191 mg/dL (Abnormal) Comments: 2HR GTT GLU 2 HR GLU GTT-2 HOUR from 216:[id number]. Range: 70-120 :20 GLU GTT-1 HOUR 178 mg/dL (Abnormal) Comments: 2HR GTT GLU 1 HR GLU GTT-1 HOUR from 216:[id number]. Range: 120-170 :40 GLU GTT-30 min. 183 mg/dL (Abnormal) Comments: 2HR GTT GLU 1/2 HR GLU GTT-30 min. from 216:[id number]. Range: 110-170 :01 GLU GTT-FASTING 106 mg/dL (Normal) Comments: 2HR GTT FASTING GLU GTT-FASTING from 216:[id number]. Range: 70-110 Comments: GLUCOSE TOLERANCE TEST Reference [...] 47-70 WBC 8.2 K/mm3 (Normal) Range: 4.4-11.0 :12 COMP METABOLIC A/G 1.3 {RATIO} (Normal) Range: [...] T PROT 7.0 g/dL (Normal) Range: 6.4-8.2 :12 LIPID CHOL 154 mg/dL (Normal) Comments: <200 [...] mg/dL VLDL 15 mg/dL (Normal) Range: 5-40 :12 PSA,TOT SCREEN 0.96 ng/mL (Normal) Range: 0.00-4.00 Comments: This test was performed using the TPSA method for the[employer] chemistry system.Values obtained with different assay methods cannot be usedinterchangably.When changing PSA assays in the course of monito ring apatient, additional sequential testing should be carriedout to confirm baseline values. :12 ROUTINE UA BILIRUBIN URINE SeeNote (Normal) Comments: [...] 0.2 EU/dl (Normal) Range: 0.2 - 1.0 :12 TSH 1.38 {uIU/mL} (Normal) Range: 0.34-4.82 94-Pdt-48276:03 CHEST WITH CONTRAST Radiology Report See Note (Normal) Comments: Exam Number: [id number] CHEST CT WITH INTRAVENOUS CONTRAST. REASON FOR [...] No growth in 5 6:14 days. (Normal) 7-Lfz-479846:14 CBCD,SMEAR DIFF BAND 1 % (Normal) Range: [...] 47-70 WBC 5.6 K/mm3 (Normal) Range: 4.4-11.0 9-Qjt-518910:14 COMP METABOLIC A/G 1.2 {RATIO} (Normal) Range: [...] T PROT 6.3 g/dL (Abnormal) Range: 6.4-8.2 08-Noc-674055:19 EBVIgG/M 986839 EB-EA IgG 64703 79 AU/mL (Normal) Range: 0-99 Comments: Negative <100 Equivocal 100 - 120 Positive >120 EB-NAg KyM74801 656 AU/mL (Abnormal) Range: 0-99 Comments: Negative <100 Equivocal 100 - 120 Positive >120 EB-VCA [id number] 2296 AU/mL (Abnormal) Range: 0-99 Comments: Negative <100 Equivocal 100 - 120 Positive >120 EB-VCA RqE14281 9 AU/mL (Normal) Range: 0-99 Comments: Negative [...] + Antibody Present - Antibody AbsentPerformed At: [facility] [address] [place], [place] [id number] 35-Bid-092596:00 CULTURE, THROAT See Note (Normal) Comments: Normal throat ashkan isolated. No beta-hemolyticstreptococcus isolated. 35-Bfc-756397:35 Rapid Strep Test, Office (64934) Rapid Strep Test, Office Negative (Normal) :40 TISS/FLUID P-BX/CY (Normal) Comments: OPERATION Biopsy, testicle, [...] y. / SJ:rin 11/09/06 TC:5 REPORT SIGNED: JOSE MIGUEL SONSHI 11/10/0607-Nov-200622-Zgt-891653:55 ALDOLASE 2030 2.3 U/L (Normal) Range: 1.2-7.6 Comments: Performed At: [facility] [place], [place] [id number] At: [facility] [id number] 89-Zjp-836600:55 JOHN-D [id number] JOHN-DIRECT 9 U/mL (Normal) Range: 0-99 Comments: Negative <100 Equivocal 100 - 120 Positive >120 :55 C-REACTIVE PROT 0.52 mg/L (Normal) Range: 0.0-6.0 Comments: Test performed using the Dimension C-Reactive ProteinExtended Range assay method. This assay meets the AHA/CDC 2003 recommendations fordetermining patients at high risk for cardiovasculardisease. Reference: High risk CRP >3.0 mg/L :55 CBC HCT 42.8 % (Normal) Range: 40-54 [...] 4.9 {IU/mL} (Normal) Range: 0.0-13.9 :55 TESTOST [id number] TESTOSTER %FREE 2.87 % (Normal) Range: 1.50-4.20 [...] Report See Note (Normal) Comments: Exam Number: [id number] TESTICULAR ULTRASOUND HISTORYTesticular swelling. High resolution real [...] Reported By: MAYELIN DE LA FUENTE M.D. 3-Ncl-768552:45 HIP, MIN 2 VIEWS Radiology Report See Note (Normal) Comments: Exam Number: [id number] FIVE VIEW LUMBAR SPINE AP, LATERAL, BOTH [...] degenerative changes. Reported By: REMIGIO PURCELL M.D. :45 L/S SPINE,MIN 4 VIEWS Radiology Report See Note (Normal) Comments: Exam Number: [id number] FIVE VIEW LUMBAR SPINE AP, LATERAL, BOTH [...] degenerative changes. Reported By: REMIGIO PURCELL M.D. 6-Aqe-664985:44 HIP, MIN 2 VIEWS Radiology Report See Note (Normal) Comments: Exam Number: [id number] FIVE VIEW LUMBAR SPINE AP, LATERAL, BOTH [...] degenerative changes. Reported By: REMIGIO PURCELL M.D. 61-Pxq-590173:43 CHEST, PA AND LATERAL Radiology Report See Note (Normal) Comments: Exam Number: [id number] PA AND LATERAL CHEST HISTORYShortness of breath. [...] 15, 2005. Reported By: EDVIN MARIE M.D. 58-Itr-900320:25 ALDOLASE 2030 3.0 U/L (Normal) Range: 1.2-7.6 Comments: Performed At: [address] [id number] 86-Snf-061427:25 JOHN-D 813827 JOHN-DIRECT 46 U/mL (Normal) Range: 0-99 Comments: Negative <100 Equivocal 100 - 120 Positive >120 39-Udm-713994:25 C-REACTIVE PROT 1.07 mg/L (Normal) Range: 0.0-6.0 Comments: Test performed using the Dimension C-Reactive ProteinExtended Range assay method. This assay meets the AHA/CDC 2003 recommendations fordetermining patients at high risk for cardiovasculardisease. Reference: High risk CRP >3.0 mg/L 17-Rnf-971347:25 CBCD BASO% 0.4 % (Normal) Range: 0-1 [...] CPK TOTAL 172 U/L (Normal) Range: 35-232 51-Csf-700270:25 ESR SED RATE 13 mm/h (Normal) Range: 0-20 90-Zeo-450446:25 RA LATEX 6502 5.2 {IU/mL} (Normal) Range: [...] morphology Planned Observations CBC W/AUTO DIFF WBC (83656)Indication: Hypertension, benign On: 87-Qyu-22217:51 Request METABOLIC PANEL, COMPREHENSIVE (81742)Indication: Hypertension, benign On: 60-Lxs-63711:51 Request LIPID PANEL (61792)Indication: Other hyperlipidemia On: :50 Request CULTURE,FUNGUS W/STAIN 577898 (69803)Indication: Bronchiectasis On: :59 Request CULTURE, SPUTUM (69883)Indication: Moderate persistent asthma without complication On: :21 Request HGB A1C (70924)Indication: Abnormal glucose tolerance test On: :10 Request CBC with auto diff (51370)Indication: Abnormal glucose tolerance test On: :10 Request METABOLIC PANEL, COMPREHENSIVE (14085)Indication: Abnormal glucose tolerance test On: : Request LIPID PANEL (42996)Indication: Other hyperlipidemia On: :10 Request PSA (PROSTATE SPECIFIC ANTIGEN) (V76.44)Indication: Encounter for screening for malignant neoplasm of prostate (Renamed from Screening for prostate cancer) On: :09 Request METABOLIC PANEL, COMPREHENSIVE (54649)Indication: Essential hypertension On: 7-Got-658577:58 Request CBC with auto diff (57334)Indication: Hypertension, benign On: :53 Request METABOLIC PANEL, COMPREHENSIVE (96536)Indication: Abnormal glucose tolerance test On: :52 Request MICROALBUMIN: CREATININE RATIO (44446) AND (16628)Indication: Abnormal glucose tolerance test On: :52 Request HGB A1C (64725)Indication: Abnormal glucose tolerance test On: :52 Request LIPID PANEL (42820)Indication: Other hyperlipidemia On: :52 Request LIPID PANEL (02512)Indication: Other hyperlipidemia On: 8-Csw-706044:30 Request CBC W/AUTO DIFF WBC (15057)Indication: Hypertension, benign On: :29 Request METABOLIC PANEL, COMPREHENSIVE (20761)Indication: Hypertension, benign On: 9-Bgg-814550:29 Request IMMUNOGLOBULIN G (IgG) (35719)Indication: Abnormal blood chemistry On: 11-Osu-194109:02 Request Comments: PLEASE DRAW WITH OTHER LABS IN 2016 serum free light chains (04641)Indication: Abnormal blood chemistry On: 40 Request serum immunofixation (13681)Indication: Abnormal blood chemistry On: 40 Request PSA (PROSTATE SPECIFIC ANTIGEN) (V76.44)Indication: Encounter for screening for malignant neoplasm of prostate (Renamed from Screening for prostate cancer) On: 40 Request LIPID PANEL (79435)Indication: Other hyperlipidemia On: Request CBC with auto diff (77789)Indication: Abnormal glucose tolerance test On: :39 Request METABOLIC PANEL, COMPREHENSIVE (85712)Indication: Abnormal glucose tolerance test On: 39 Request MICROALBUMIN: CREATININE RATIO (20820) AND (08092)Indication: Abnormal glucose tolerance test On: 39 Request HGB A1C (37874)Indication: Abnormal glucose tolerance test On: 39 Request LIPID PANEL (75832)Indication: Other hyperlipidemia On: :58 Request urine immunofixation (83839)Indication: Abnormal blood chemistry On: :34 Request serum immunofixation (85860)Indication: Abnormal blood chemistry On: :34 Request MICROALBUMIN: CREATININE RATIO (45993) AND (07044)Indication: Abnormal glucose tolerance test On: :32 Request HGB A1C (53682)Indication: Abnormal glucose tolerance test On: :32 Request CBC W/AUTO DIFF WBC (53929)Indication: Hypertension, benign On: :30 Request METABOLIC PANEL, COMPREHENSIVE (42659)Indication: Hypertension, benign On: :30 Request LIPID PANEL (89307)Indication: Other hyperlipidemia On: :30 Request LIPOPROTEIN, BLD, BY NMR (14681)Indication: Other hyperlipidemia On: 40-Uhn-196905:14 Request CBC WITH MANUAL DIFF (82509)Indication: Essential hypertension On: 62-Ran-202614:14 Request Metabolic Panel, Comprehensive (18977)Indication: Essential hypertension On: 00-Uhx-279795:14 Request CBC W/AUTO DIFF WBC (92841)Indication: Abnormal glucose tolerance test On: : Request LIPOPROTEIN, BLD, BY NMR (15217)Indication: Other hyperlipidemia On: : Request METABOLIC PANEL, COMPREHENSIVE (88114)Indication: Abnormal glucose tolerance test On: : Request Anti-TPO Antibody (57957)Indication: Abnormal blood chemistry On: Request T4, FREE (THYROXINE) (19851)Indication: Abnormal blood chemistry On: Request T3, FREE (TRIDOTHYRONINE) (02251)Indication: Abnormal blood chemistry On: Request TSH (67169)Indication: Abnormal blood chemistry On: : Request P-ANCA & C-ANCA (ANCA PROFILE) 94781 x2 and 17447 m1Zqtebuuxec: Acute recurrent maxillary sinusitis On: Request JOHN (ANTINUCLEAR ANTIBODY) (49217)Indication: Abnormal blood chemistry On: : Request RHEUMATOID FACTOR-QUANT (90791)Indication: Abnormal blood chemistry On: : Request SED RATE ERYTHROCYTE (69702)Indication: Abnormal blood chemistry On: Request C-REACTIVE PROTEIN (34379)Indication: Abnormal blood chemistry On: :56 Request CBC with auto diff (44643)Indication: Hypertension, benign On: : Request MICROALBUMIN: CREATININE RATIO (99732) AND (91139)Indication: Abnormal glucose tolerance test On: : Request METABOLIC PANEL, COMPREHENSIVE (01669)Indication: Abnormal glucose tolerance test On: : Request HGB A1C (02061)Indication: Abnormal glucose tolerance test On: : Request METABOLIC PANEL, COMPREHENSIVE (22511)Indication: Hypertension, benign On: : Request LIPID PANEL (27387)Indication: Other hyperlipidemia On: : Request PSA (PROSTATE SPECIFIC ANTIGEN) (V76.44)Indication: Encounter for screening for malignant neoplasm of prostate (Renamed from Screening for prostate cancer) On: 94-Fvg-321516:59 Request Factor 2 (Prothrombin) Gene Mutation (74190)Indication: Other symptoms involving cardiovascular system On: 4-Oef-168663:13 Request MICROALBUMIN: CREATININE RATIO (60051) AND (30283)Indication: Abnormal glucose tolerance test On: :53 Request HGB A1C (66965)Indication: Abnormal glucose tolerance test On: :53 Request LIPID PANEL (54830)Indication: Other hyperlipidemia On: :53 Request CBC W/AUTO DIFF WBC (55000)Indication: Hypertension, benign On: :53 Request METABOLIC PANEL, COMPREHENSIVE (32833)Indication: Hypertension, benign On: :53 Request CBC with auto diff ([id number])Indication: Hypertension, benign On: 9-Uok-820231: Request METABOLIC PANEL, COMPREHENSIVE (40291)Indication: Hypertension, benign On: :25 Request LIPID PANEL (06935)Indication: Other hyperlipidemia On: 7-Qhn-933990:25 Request Factor V Leiden (72679)Indication: Deep vein thrombosis of lower extremity On: 45-Qdm-483210:24 Request CLOTTING FACTOR II ([id number])Indication: Deep vein thrombosis of lower extremity On: 12-Txl-663654:24 Request ANTITHROMBIN III ACTIVTY ([id number])Indication: Deep vein thrombosis of lower extremity On: 44-Ryk-854616:24 Request Antiphospholipid atb (92911)Indication: Deep vein thrombosis of lower extremity On: 32-Xsk-825472:24 Request Protein C Profile (50639)Indication: Deep vein thrombosis of lower extremity On: 26-Rqw-743743:24 Request Protein S Profile (63657)Indication: Deep vein thrombosis of lower extremity On: 86-Yww-781645:24 Request Hemoglobin Glyclated (HGB A1C) (69884)Indication: Abnormal glucose tolerance test On: 38-Moe-317678:23 Request CBC W/AUTO DIFF WBC (69113)Indication: Abnormal glucose tolerance test On: 6-Snu-768470:43 Request MICROALBUMIN: CREATININE RATIO (47523) AND ([id number])Indication: Abnormal glucose tolerance test On: :43 Request METABOLIC PANEL, COMPREHENSIVE ([id number])Indication: Abnormal glucose tolerance test On: :43 Request LIPID PANEL (26027)Indication: Other hyperlipidemia On: 43 Request DNA ANTIBODY-NATV/DBL ST (38063)Indication: Heart disease, unspecified On: 79-Oih-698867:02 Request METABOLIC PANEL, COMPREHENSIVE (88995)Indication: Essential hypertension On: : Request LIPID PANEL (57954)Indication: Other hyperlipidemia On: :31 Request Hemoglobin Glyclated (HGB A1C) (60605)Indication: Abnormal glucose tolerance test On: :31 Request PSA (PROSTATE SPECIFIC ANTIGEN) (V76.44)Indication: Benign prostatic hyperplasia with lower urinary tract symptoms, unspecified morphology On: 54-Mta-272112:52 Request MICROALBUMIN: CREATININE RATIO (47202) AND (55845)Indication: Abnormal glucose tolerance test On: :50 Request Hemoglobin Glyclated (HGB A1C) (65809)Indication: Abnormal glucose tolerance test On: :50 Request URINE WARREN CULTURE (MASSIEL COL COUNT) (19732)Indication: Muscle weakness On: :48 Request URINALYSIS, W/ MICRO (49268)Indication: Muscle weakness On: :48 Request CBC with auto diff (58812)Indication: Muscle weakness On: :48 Request JOHN (ANTINUCLEAR ANTIBODY) (60012)Indication: Muscle weakness On: :48 Request SED RATE ERYTHROCYTE (52216)Indication: Muscle weakness On: :48 Request C-REACTIVE PROTEIN ([id number])Indication: Muscle weakness On: :48 Request TSH ([id number])Indication: Muscle weakness On: :48 Request LIPID PANEL (86497)Indication: Other hyperlipidemia On: :47 Request METABOLIC PANEL, COMPREHENSIVE (65585)Indication: Other hyperlipidemia On: 01-Ahv-980990:46 Request URINE WARREN CULTURE-MASSIEL COL COUNT (50506)Indication: Other abnormal finding of urine On: 0-Fwx-829299:42 Request LIPID PANEL (98763)Indication: Other hyperlipidemia On: :44 Request CBC W/AUTO DIFF WBC ([id number])Indication: Essential hypertension On: :44 Request METABOLIC PANEL, COMPREHENSIVE (22457)Indication: Essential hypertension On: :44 Request URINE WARREN CULTURE-MASSIEL COL COUNT ([id number])Indication: Other abnormal finding of urine On: :00 Request Comments: ADD ON MICROALBUMIN: CREATININE RATIO (89757) AND (42703)Indication: Essential hypertension On: : Request URINALYSIS, W/ MICRO (52595)Indication: Essential hypertension On: : Request METABOLIC PANEL, COMPREHENSIVE (77063)Indication: Essential hypertension On: : Request LIPID PANEL ([id number])Indication: Other hyperlipidemia On: : Request CBC WITH MANUAL DIFF ([id number])Indication: Iron deficiency On: : Request URINE WARREN CULTURE (MASSIEL COL COUNT) (23665)Indication: Fatigue On: :46 Request MICROALBUMIN: CREATININE RATIO (72620) AND ([id number])Indication: Abnormal glucose tolerance test On: :46 Request Hemoglobin Glyclated (HGB A1C) (76798)Indication: Abnormal glucose tolerance test On: :46 Request IRON BINDING CAPACITY (TIBC) (74429)Indication: Anemia, unspecified On: :42 Request FERRITIN ([id number])Indication: Anemia, unspecified On: :42 Request IRON ([id number])Indication: Anemia, unspecified On: :42 Request VITAMIN B-12 (CYANOCOBALAMIN) (71717)Indication: Fatigue On: :42 Request CBC (AUTO) (42541)Indication: Fatigue On: :42 Request TSH ([id number])Indication: Fatigue On: :42 Request Vitamin D Hydroxy (89694)Indication: Fatigue On: :42 Request EBV Panel ([id number])Indication: Fatigue On: :42 Request FERRITIN (99538)Indication: Anemia, unspecified On: Request IRON ([id number])Indication: Anemia, unspecified On: Request MICROALBUMIN: CREATININE RATIO ([id number]) AND ([id number])Indication: Abnormal glucose tolerance test On: Request METABOLIC PANEL, COMPREHENSIVE (23686)Indication: Abnormal glucose tolerance test On: Request LIPID PANEL (34780)Indication: Other hyperlipidemia On: Request CBC WITH MANUAL DIFF (11921)Indication: Anemia, unspecified On: Request FERRITIN (37066)Indication: Anemia, unspecified On: :15 Request IRON ([id number])Indication: Anemia, unspecified On: : Request LIPID PANEL (29473)Indication: Essential hypertension On: Request METABOLIC PANEL, COMPREHENSIVE (81908)Indication: Essential hypertension On: : Request CBC WITH MANUAL DIFF ([id number])Indication: Essential hypertension On: :14 Request UPEP (81489)Indication: BRONCHITIS, NOT SPECIFIED ACUTE OR CHRONIC (490.) On: Request Protein Electrophoresis, Serum (SPEP) (47217)Indication: BRONCHITIS, NOT SPECIFIED ACUTE OR CHRONIC (490.) On: Request IGA/IGD/IGG/IGM-EACH (04311)Indication: BRONCHITIS, NOT SPECIFIED ACUTE OR CHRONIC (490.) On: Request URINALYSIS, W/ MICRO ([id number])Indication: Anemia, unspecified On: Request CBC WITH MANUAL DIFF ([id number])Indication: Anemia, unspecified On: Request FOLIC ACID SERUM (37648)Indication: Anemia, unspecified On: Request VITAMIN B-12 (CYANOCOBALAMIN) (41680)Indication: Anemia, unspecified On: Request RETICULOCYTE COUNT MANUL ([id number])Indication: Anemia, unspecified On: : Request LDH (LD) (LACTATE DEHYDROGENASE) (72366)Indication: Anemia, unspecified On: Request IRON BINDING CAPACITY (TIBC) (87079)Indication: Anemia, unspecified On: : Request IRON ([id number])Indication: Anemia, unspecified On: Request FERRITIN (59717)Indication: Anemia, unspecified On: Request PSA (PROSTATE SPECIFIC ANTIGEN) (V76.44)Indication: Screening for prostate cancer On: :36 Request LIPID PANEL (79014)Indication: Abnormal glucose tolerance test On: :35 Request CBC WITH MANUAL DIFF (00148)Indication: Hypertension, benign On: Request METABOLIC PANEL, COMPREHENSIVE (70615)Indication: Hypertension, benign On: 35 Request SED RATE ERYTHROCYTE (53492)Indication: Rash On: :22 Request C-REACTIVE PROTEIN (06630)Indication: Rash On: :22 Request RHEUMATOID FACTOR-QUANT (04694)Indication: Rash On: : Request JOHN (ANTINUCLEAR ANTIBODY) ([id number])Indication: Rash On: :22 Request CULTURE, SPUTUM (23346)Indication: Cough On: 22-Mre-644016:20 Request HgA1C , Office (17389)Indication: Abnormal glucose tolerance test On: 14-Ycu-352909:57 Request CULTURE, SPUTUM (22693)Indication: Cough On: 19-Nvx-922361:39 Request ACID FAST STAIN (AFB) (81748)Indication: Cough On: 09-Slk-494172:38 Request TSH ([id number])Indication: Other hyperlipidemia On: :21 Request URINALYSIS, W/ MICRO (41774)Indication: Essential hypertension On: :21 Request CBC WITH MANUAL DIFF ([id number])Indication: Abnormal glucose tolerance test On: : Request METABOLIC PANEL, COMPREHENSIVE (84271)Indication: Abnormal glucose tolerance test On: :21 Request MICROALBUMIN: CREATININE RATIO (35006) AND ([id number])Indication: Abnormal glucose tolerance test On: 44-Ewg-350729:21 Request LIPID PANEL (74520)Indication: Other hyperlipidemia On: 70-Cxa-186412:20 Request CBC WITH MANUAL DIFF ([id number])Indication: Abnormal glucose tolerance test On: :26 Request METABOLIC PANEL, COMPREHENSIVE ([id number])Indication: Abnormal glucose tolerance test On: 46-Gxh-885545:26 Request CULTURE, SPUTUM ([id number])Indication: Cough On: 59-Ajv-256954:18 Request LIPID PANEL ([id number])Indication: Other hyperlipidemia On: 97-Nwz-083677:14 Request TSH ([id number])Indication: Swelling of limb On: 89-Oop-21004:58 Request METABOLIC PANEL, COMPREHENSIVE (55145)Indication: Swelling of limb On: 83-Yri-14983:58 Request CBC WITH MANUAL DIFF (48542)Indication: Swelling of limb On: :58 Request BNTP (53772)Indication: Swelling of limb On: 75-Jkf-41314:58 Request CULTURE, SPUTUM ([id number])Indication: Cough On: 41-Qbf-56181:56 Request PSA (PROSTATE SPECIFIC ANTIGEN) (V76.44)Indication: Screening for prostate cancer On: 18-Pxu-761634:19 Request URINALYSIS, W/ MICRO (96617)Indication: Abnormal glucose tolerance test On: 66-Ssh-366628:18 Request MICROALBUMIN: CREATININE RATIO ([id number]) AND (55631)Indication: Abnormal glucose tolerance test On: 82-Pqc-732257:18 Request METABOLIC PANEL, COMPREHENSIVE (42352)Indication: Essential hypertension On: 25-Eiz-684651:18 Request LIPID PANEL (58143)Indication: Other hyperlipidemia On: 16-Dfh-874900:18 Request PSA (PROSTATE SPECIFIC ANTIGEN) (V76.44)Indication: Screening for prostate cancer On: 36-Sil-650587:40 Request MICROALBUMIN: CREATININE RATIO ([id number]) AND (49692)Indication: Abnormal glucose tolerance test On: 66-Rav-095336:40 Request METABOLIC PANEL, COMPREHENSIVE (54464)Indication: Abnormal glucose tolerance test On: 01-Qub-504799:40 Request Urine Protein Electrophoresis (UPEP) ([id number])Indication: recurrent uri On: :39 Request Serum Protein Electrophoresis (SPEP) ([id number])Indication: recurrent uri On: 07-Qki-954399:39 Request IMMUNOGLOBULIN E (IgE) (10204)Indication: Asthma, intrinsic, with status asthmaticus On: 62-Bda-175695:39 Request IGA/IGD/IGG/IGM-EACH ([id number])Indication: Asthma, intrinsic, with status asthmaticus On: 24-Kcq-264957:39 Request LIPID PANEL (12135)Indication: Other hyperlipidemia On: 63-Oqa-840423:38 Request ASPERGILLUS AG, EIA (70043)Indication: Cough On: :58 Request SED RATE ERYTHROCYTE (74033)Indication: Cough On: 50-Mqm-028931:48 Request C-REACTIVE PROTEIN (58401)Indication: Cough On: :48 Request CBC WITH MANUAL DIFF ([id number])Indication: Cough On: 91-Bqu-658529:47 Request Quantiferron gold test (89743)Indication: Cough On: 35-Aem-732377:45 Request CULTURE, SPUTUM ([id number])Indication: Cough On: 05-Fxj-268937:45 Request VITAMIN B-12 (CYANOCOBALAMIN) (09880)Indication: Fatigue On: :20 Request Vitamin D Hydroxy (30144)Indication: Fatigue On: 92-Iuu-926216:20 Request CBC WITH MANUAL DIFF ([id number])Indication: Abnormal glucose tolerance test On: :19 Request METABOLIC PANEL, COMPREHENSIVE (06058)Indication: Abnormal glucose tolerance test On: :19 Request LIPID PANEL ([id number])Indication: Other hyperlipidemia On: 76-Xpi-800336:19 Request URINALYSIS, W/ MICRO (34365)Indication: Abnormal glucose tolerance test On: :19 Request HEMOGLOBIN GLYCLATED (HGB A1C) ([id number])Indication: Abnormal glucose tolerance test On: 03-Qda-450009:19 Request WARREN CULTURE-OTHER ([id number])Indication: Pharyngitis, acute On: 66-Pwo-292086:05 Request URINE WARREN CULTURE-MASSIEL COL COUNT ([id number])Indication: Abdominal pain, acute, right lower quadrant On: :19 Request CBC WITH MANUAL DIFF ([id number])Indication: Abnormal glucose tolerance test On: :08 Request METABOLIC PANEL, COMPREHENSIVE (34182)Indication: Abnormal glucose tolerance test On: 78-Bjg-621212:08 Request TSH ([id number])Indication: Fatigue On: 43-Gcg-829315:02 Request CBC WITH MANUAL DIFF (65092)Indication: Abnormal glucose tolerance test On: :45 Request METABOLIC PANEL, COMPREHENSIVE ([id number])Indication: Hypertension, benign On: 33-Sax-447949:45 Request LIPID PANEL ([id number])Indication: Other hyperlipidemia On: :45 Request METABOLIC PANEL, COMPREHENSIVE (98398)Indication: Essential hypertension On: :16 Request LIPID PANEL (65188)Indication: Other hyperlipidemia On: 03-Xld-094592:15 Request URINE WARREN CULTURE-MASSIEL COL COUNT (76034)Indication: Calcium kidney stone On: 55-Ppw-431001:54 Request PSA (PROSTATE SPECIFIC ANTIGEN) (V76.44)Indication: Enlarged prostate with lower urinary tract symptoms On: 88-Ngn-346687:09 Request METABOLIC PANEL, COMPREHENSIVE (78135)Indication: Abnormal glucose tolerance test On: 12-Rml-399963:09 Request CBC WITH MANUAL DIFF ([id number])Indication: Abnormal glucose tolerance test On: 79-Qxu-757662:09 Request LIPID PANEL (21082)Indication: Other hyperlipidemia On: 72-Hol-681439:09 Request MICROALBUMIN: CREATININE RATIO (30027) AND (12787)Indication: Abnormal glucose tolerance test On: 62-Due-959232:09 Request LIPID PANEL ([id number])Indication: Other hyperlipidemia On: :31 Request CBC WITH MANUAL DIFF ([id number])Indication: Abnormal glucose tolerance test On: :31 Request METABOLIC PANEL, COMPREHENSIVE (30876)Indication: Abnormal glucose tolerance test On: :30 Request MICROALBUMIN: CREATININE RATIO (91777) AND (32144)Indication: Abnormal glucose tolerance test On: 88-Hiz-387150:28 Request METABOLIC PANEL, COMPREHENSIVE (16549)Indication: Abnormal glucose tolerance test On: :07 Request LIPID PANEL ([id number])Indication: Other hyperlipidemia On: 6-Cit-407806:07 Request PSA (PROSTATE SPECIFIC ANTIGEN) (V76.44)Indication: Enlarged prostate with lower urinary tract symptoms On: :49 Request METABOLIC PANEL, COMPREHENSIVE (38605)Indication: Essential hypertension On: 4-Otm-127897:48 Request LIPID PANEL (61881)Indication: Other hyperlipidemia On: :48 Request HEPATIC FUNCTION PANEL (58026)Indication: Other hyperlipidemia On: :21 Request LIPID PANEL ([id number])Indication: Other hyperlipidemia On: :21 Request CBC WITH MANUAL DIFF ([id number])Indication: Abnormal glucose tolerance test On: :53 Request METABOLIC PANEL, COMPREHENSIVE (65323)Indication: Abnormal glucose tolerance test On: :53 Request MICROALBUMIN: CREATININE RATIO (71934) AND (02463)Indication: Abnormal glucose tolerance test On: 6-Rfb-412056:53 Request HEPATIC FUNCTION PANEL (59103)Indication: Other hyperlipidemia On: :53 Request LIPID PANEL ([id number])Indication: Other hyperlipidemia On: 3-Wfy-611974:53 Request GLUCOSE TOLERANCE TEST (GTT) 2 hour On: 7-Tgv-834034:36 Request (03185) TSH ([id number])Indication: Dizziness and giddiness On: 47-Dwf-066568:15 Request LIPID PANEL ([id number])Indication: Other hyperlipidemia On: 20-Hyo-118137:15 Request CBC WITH MANUAL DIFF ([id number])Indication: Dizziness and giddiness On: 73-Ddn-186494:15 Request METABOLIC PANEL, COMPREHENSIVE (62816)Indication: Dizziness and giddiness On: 04-Gbu-708748:15 Request HEPATIC FUNCTION PANEL ([id number])Indication: Other hyperlipidemia On: 04-Gzn-860667:39 Request LIPID PANEL (80397)Indication: Other hyperlipidemia On: 32-Zpa-784310:39 Request HEPATIC FUNCTION PANEL (21478)Indication: Other hyperlipidemia On: 94-Dpf-411411:31 Request LIPID PANEL (65337)Indication: Other hyperlipidemia On: 45-Pvh-497697:31 Request WARREN CULTURE-BLOOD (70444)Indication: fever On: 1-Sve-850133:58 Request METABOLIC PANEL, COMPREHENSIVE (41790)Indication: fever On: 0-Usq-367394:58 Request CBC WITH MANUAL DIFF ([id number])Indication: fever On: 2-Udx-048168:58 Request WARREN CULTURE-OTHER ([id number])Indication: Pharyngitis, acute On: 02-Vnc-578457:35 Request PSA (Prostate Specific Antigen), Screening (80604)Indication: Other hyperlipidemia On: :32 Request LIPID PANEL (15613)Indication: Other hyperlipidemia On: : Request URINALYSIS W/O MICRO (02824)Indication: Hypertension, benign On: :31 Request TSH (11209)Indication: Hypertension, benign On: : Request CBC WITH MANUAL DIFF ([id number])Indication: Hypertension, benign On: :31 Request METABOLIC PANEL, COMPREHENSIVE (01398)Indication: Hypertension, benign On: :31 Request Creatine Kinase Total (97849)Indication: Myalgia and myositis On: :24 Request SED RATE ERYTHROCYTE (46670)Indication: Arthralgia On: :23 Request C-REACTIVE PROTEIN (06721)Indication: Arthralgia On: :23 Request RHEUMATOID FACTOR-QUANT (79662)Indication: Arthralgia On: :23 Request JOHN (ANTINUCLEAR ANTIBODY) ([id number])Indication: Arthralgia On: :23 Request Planned Encounters Medical; [facility] 3 Month FU - On: 21-Mar-2018 8:30 [facility] Fast DO, Adelaida A Fast DO, Adelaida A Planned Procedures PNEUM VAC ADLT/IMUMNOSPR, On: 06-Dec-2017 Intent SBC/INTRM ([id number])By: Flakito ACKERMAN, Comments: lot: [id number]: ite/route: Татьяна del/IMamt: 0.5mLVIS signed when applicableEVER Monroy Adelaida A Fast DO, Adelaida A Cartoid DopplerBy: Fast DO, Adelaida On: 06-Sep-2017 Intent A Fast DO, Adelaida A Radiology - Lumbar SpineBy: Fast On: 06-Jun-2017 Intent DO, Adelaida A Fast DO, Adelaida A ELECTROCARDIOGRAM, COMPLETE (ECG) On: 06-Jun-2017 Intent (17710)By: Flakito ACKERMAN Adelaida A Flakito Comments: ekg [...] XRAY, PA & LATERAL On: 18-Jan-2017 Intent (74458)By: Yola Witt Aerosol Treatment (29401)By: On: 18-Jan-2017 Intent Yola Witt Solu -Medrol Injection, 125 mg On: 18-Jan-2017 Intent (J2930)By: Yola Witt Comments: solumedrol 125mg injectionlot: [id number]: 12/2018L GMpt tolerated wellAD LENS GRINDER ELECTROCARDIOGRAM, COMPLETE (ECG) On: 05-Jan-2016 Intent (58673)By: Adelaida Fraga DO Comments: ekg showed normal sinus rhythym, normal axis, no acute st/t wave changes irbb DO, Adelaida A Solu -Medrol Injection, 125 mg On: 09-May-2015 Intent (J2930)By: Samantha Grewal CNP Comments: lot: [id number]: ite/route:RGM/IMamt: 2mLVIS signed when applicableEVER Dumont Aerosol Treatment ([id number])By: On: 09-May-2015 Intent Slarb LENS GRINDER, Tracey Radiology - Chest- PA and LatBy: On: 11-Apr-2015 Intent Fast DO, Adelaida A Fast DO, Adelaida A Comments: stat Radiology - Lumbar SpineBy: Fast On: 11-Apr-2015 Intent DO, Adelaida A Fast DO, Adelaida A Radiology - Hip - LeftBy: Fast On: 11-Apr-2015 Intent DO, Adelaida A Fast DO, Adelaida A Comments: weight bearing Doppler Ultrasound OtherBy: Fast On: 3-Aug-2015 Intent DO, Adelaida A Fast DO, Adelaida A Comments: end september right leg Radiology - Chest- PA and LatBy: On: 26-Aug-2014 Intent Fast DO, Adelaida A Fast DO, Adelaida A Pulse Oximetry ([id number])By: Flakito On: 26-Aug-2014 Intent DO, Adelaida A Fast DO, Adelaida A Comments: 94%- recheck 95 Aerosol Treatment (57123)By: On: 10-Apr-2014 Intent Tracey Young LPN Eprescribed prescriptions On: 25-Jul-2013 Intent (G8553)By: Fast DO, Adelaida A Fast DO, Adelaida A Pulse Oximetry ([id number])By: Flakito On: 02-Jul-2013 Intent DO, Adelaida A Fast DO, Adelaida A Comments: 97% Aerosol Treatment (59926)By: On: 25-Jun-2013 Intent Samantha Grewal CNP Eprescribed prescriptions On: 25-Jun-2013 Intent (G8553)By: Samantha Grewal CNP Eprescribed prescriptions On: 02-Apr-2013 Intent (G8553)By: Leigh Ann Polk Aerosol Treatment ([id number])By: On: 26-Mar-2013 Intent Samantha Grewal CNP Eprescribed prescriptions On: 26-Mar-2013 Intent (G8553)By: Eliana Carter Eprescribed prescriptions On: 25-Dec-2012 Intent (G8553)By: Leigh Ann Polk Aerosol Treatment ([id number])By: On: 06-Nov-2012 Intent Samantha Grewal CNP Eprescribed prescriptions On: 06-Nov-2012 Intent (G8553)By: Eliana Carter Ear Irrigation ([id number])By: Carmina On: 25-Sep-2012 Intent Samantha IRVIN Comments: Ear Irrigation performed on:bilateralAmount/color removed cerumen:large amount of dark brown wax removedOUtcome:clear, pt toleratedUsed wax curettes Wax CurettesBy: Samantha Grewal CNP On: 25-Sep-2012 Intent Eprescribed prescriptions On: 22-Sep-2012 Intent (G8553)By: Peter DO, Elizabet Eprescribed prescriptions On: 02-Aug-2012 Intent (G8553)By: Leigh Ann Polk Pulse Oximetry ([id number])By: Flakito On: 30-Jun-2012 Intent DO, Adelaida A Fast DO, Adelaida A Comments: 97% Eprescribed prescriptions On: 12-Jun-2012 Intent (G8553)By: Fast DO, Adelaida A Fast DO, Adelaida A Spirometry (32395)By: Felicitas, On: 17-Jan-2012 Intent Leigh Ann Comments: good effort and curve mild restriction CT - Sinuses CompleteBy: Fast DO, On: 17-Jan-2012 Intent Adelaida A Fast DO, Adelaida A PNEUM VAC ADLT/IMUMNOSPR, On: 17-Jan-2012 Intent SBC/INTRM ([id number])By: Boris, Comments: Lot:[id number]:04-25-Dose:0.5mLRoute:IMSite:L armGiven By:CHELA signed Julia IMMUNIZ ADMNIN, 1 VAC, SNGL/COMBO On: 17-Jan-2012 Intent (12733)By: Julia Escalante CT - ChestBy: Fast DO, Adelaida A On: 17-Jan-2012 Intent Fast DO, Adelaida A Eprescribed prescriptions On: 17-Jan-2012 Intent (G8553)By: Leigh Ann Polk Eprescribed prescriptions On: 18-Oct-2011 Intent (G8553)By: Fast DO, Adelaida A Fast DO, Adelaida A EKG (17734)By: Fast DO, Adelaida A On: 15-Oct-2011 Intent Fast DO, Adelaida A Comments: ekg- sinus with normal axis and nsivcd and no acute changes Eprescribed prescriptions On: 09-Aug-2011 Intent (G8553)By: Fast DO, Adelaida A Fast DO, Adelaida A PFT - CompleteBy: Fast DO, Adelaida On: 08-Mar-2011 Intent A Fast DO, Adelaida A Pulse Oximetry ([id number])By: Carmina On: 02-Feb-2011 Intent Samantha IRVIN Aerosol Treatment ([id number])By: On: 02-Feb-2011 Intent Samantha Grewal CNP Radiology - Chest- PA and LatBy: On: 18-Jan-2011 Intent Fast DO, Adelaida A Fast DO, Adelaida A Pulse Oximetry (60504)By: On: 18-Jan-2011 Intent Leigh Ann Polk Comments: 93% TDAP VACCINE >7 IM ([id number])By: On: 07-Dec-2010 Intent Leigh Ann Polk Comments: Lot #:[id number] date:mount given:0.5mlRoute: IMSite given:left deltGiven by: DANIEL Zavaleta Eprescribed prescriptions On: 07-Dec-2010 Intent (G8553)By: Fast DO, Adelaida A Fast DO, Adelaida A FLU VAC, SPLIT, >3 YEARS, On: 07-Dec-2010 Intent INTRAMUSC (72561)By: Felicitas, Comments: received at work Leigh Ann Toradol Injection, 30 mg On: 05-Nov-2010 Intent (J1885)By: Elizabet Green DO Comments: Lot:[id number]:apr 05Amt:30mg/mlRoute:IMSite:left hip Given By: ILDA Tran Ear Irrigation (47614)By: Peter On: 05-Nov-2010 Intent Elizabet ACKERMAN Comments: Left ear irrigated, large amt of wax removed. pt tolerated well. Eprescribed prescriptions On: 05-Nov-2010 Intent (G8553)By: Elizabet Green DO Wax CurettesBy: Peter ACKERMAN, On: 05-Nov-2010 Intent Elizabet SPECIMEN HNDLNG/TRNSPRT, OFFC > On: 05-Nov-2010 Intent LAB ([id number])By: Elizabet Green DO Nuclear Medicine - HIDA [...] 05-Oct-2010 Intent ProtocolBy: Fast DO, Adelaida A Fast Comments: stat call wet read DO, Adelaida A Spirometry ([id number])By: Flakito ACKERMAN On: 14-Sep-2010 Intent Adelaida A Fast DO, Adelaida A Comments: good effort and curve- mild restriction Eprescribed prescriptions On: 14-Sep-2010 Intent (G8553)By: Flakito DO, Adelaida A Fast DO, Adelaida A Pulse Oximetry (33203)By: Flakito On: 14-Sep-2010 Intent DO, Adelaida A Fast DO, Adelaida A Comments: 94-95 Radiology - Chest- PA and LatBy: On: 14-Sep-2010 Intent Fast DO, Adelaida A Fast DO, Adelaida A Pulse Oximetry (78060)By: Ciesa On: 23-Feb-2010 Intent PARTY SUPPLY SPECIALIST, Anamaria Aerosol Treatment ([id number])By: On: 23-Feb-2010 Intent Ciesa PARTY SUPPLY SPECIALIST, Anamaria Pulse Oximetry (10578)By: Ciesa On: 26-Jan-2010 Intent PARTY SUPPLY SPECIALIST, Anamaria Aerosol Treatment (22854)By: On: 26-Jan-2010 Intent Ciesa PARTY SUPPLY SPECIALIST, Anamaria Spirometry (89680)By: Felicitas, On: 29-Apr-2008 Intent Leigh Ann Comments: good effort and curve normal EKG (45765)By: Fast DO, Adelaida A On: 20-Apr-2007 Intent [...] Injection, 2 Gram On: 27-Mar-2007 Intent (J0696)By: Flakito ACKERMAN Adelaida A Flakito Comments: Lot #: [id number] date: 10/30Amount given: 2 gramsRoute: IMSite given: Right hip and left hipGiven by: Calin Townsend LPN DO, Adelaida A Spirometry (64504)By: Flakito ACKERMAN, On: 27-Mar-2007 Intent Adelaida A Fast DO, Adelaida A Comments: good effort and curve normal EBV SEROLOGIC TESTBy: Mary Ann Salcido On: 17-Feb-2007 Intent RUDY-GUZMAN VCA ANTIBODY On: 16-Feb-2007 Intent MEASUREMENTBy: Mast RN, Negrita SPECIMEN HNDLNG/TRNSPRT, OFFC > On: 06-Feb-2007 Intent LAB ([id number])By: Fast DO, Adelaida A Fast DO, Adelaida A Ultrasound - TesticularBy: Fast On: 13-Oct-2006 Intent DO, Adelaida A Fast DO, Adelaida A Inhaler Demo ([id number])By: Fast DO, On: 26-Sep-2006 Intent Adelaida A Fast DO, Adelaida A Radiology - Hip - LeftBy: Fast On: 26-Sep-2006 Intent DO, Adelaida A Fast DO, Adelaida A Radiology - Hip - RightBy: Fast On: 26-Sep-2006 Intent DO, Adelaida A Fast DO, Adelaida A Bio Z ([id number])By: Fast DO, Adelaida A On: 25-Jul-2006 Intent Fast DO, Adelaida A Comments: normal paremters Six Minute Walk Assessment On: 25-Jul-2006 Intent ([id number])By: Fast DO, Adelaida A Fast DO, Adelaida A Radiology - Chest- PA and LatBy: On: 25-Jul-2006 Intent Fast DO, Adelaida A Fast DO, Adelaida A Spirometry ([id number])By: Fast DO, On: 25-Jul-2006 Intent Adelaida A Fast DO, Adelaida A Comments: good effort and curve- normal EDISON (Ankle Brachial Index) On: 20-Jul-2006 Intent ([id number])By: Leigh Ann Polk Comments: done EDISON (Ankle Brachial Index) On: 17-May-2006 Intent ([id number])By: Fast DO, Adelaida A Fast DO, Adelaida A Cartoid DopplerBy: Fast DO, Adelaida On: 17-May-2006 Intent A Fast [...] Indication: Neoplasm of uncertain behavior of skin [facility] Wellness Physical : Patient Instructions Indication: [facility] Well[facility] : How to access health information online Indication: [facility] Wellness Physical [facility] Wellness Physical : How to access health information online - Detail Indication: [facility] Physical Other hyperlipidemia : How to [...] Advance Directives Name Dates Details Immunization Registry [place] - Effective on Effective: 31-Jan-201701/31/2017. Expiration date [...] and peripheral vascular disease. 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 Fraga called pt in [facility]. 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 Note for Physical exam: [facility] Wellness Physical- he not taking singulair not convinced helping does have more sinus sx with yekllow drainage now- not taking pain meds rotuinely but does occ need with back- takes ativan prn he still has anxiety seeing psych feels he maxed out on meds- talked about exercise, [ADDITIONAL REASON] Follow up, Laboratory Test Results - Date: (12/17/15). Encounter Diagnosis: [facility] Wellness Physical, Non-smoker, BMI 37.0-37.9, adult, Abnormal [...] congestion and ears hurt- [facility]: Cough (786.2), SHORTNESS OF BREATH (Renamed [...] for Follow up ER: Pt went to [facility] and then went to [facility] to have the doppler done.- got back [...] 2 days with bad UTI.- was at [facility] and getting cystoscopy done and was found to be retaining urine- - by the next night he was sick with no appetitie and just felt bad went to bed - woke up next day- and felt bad- and went to [facility]- and had uti- was there [...] up hospital : Pt was transfered to [facility] for heart cath and discharged sat 06/30/13.- he had heart cath again at [facility] and one vessel which shows 20percent more [...] medical issues: he was supposed to see sibilia for cough - ie chronic cough- -his bronchitis better- he is going to call sibilia and make appt f or chronic- bp [...] allergies tested positive to cats and grass- Vick says ??has asthma- and put him on [...] side- left upper kidney then goes down- b oralia regular- seeingyoshi next tuesday- to try colonsocopy- -his breathing [...] saw a Dr Barker a psychiatrist in [place]- he thought mostly anxiety so left him on celexa and added remeron- didnt think he has ad d- - weight went up- alot of stress with his wifes illness- his bp is good- other than the stress he is doing pretty well- he didnt get labs so encourage him to do so- no gerd- allergies better with lauren molina- saw urologist did a scope and helpeds [...] gerd- so he is going back to [facility]- mood good with celexa-less tense, [ADDITIONAL [...] having dizzy- gastric emptying normal- is seeingmur phy next week -stil having reflux- had egd [...] issues with focusing- and racing thoughts - nev er has been able to contorl mood -- has bipolar in family-- he saw Ara adamsd- was neg- but still maggie t of [...] peripheral vascular disease. blood pressure range : (). Note for Follow up for chronic medical [...] Follow up, Diagnostic Procedure Results: saw Dr Ferirs - and he is doing testicul End: 07-Nov-2006 16:35 ar biopsy tomorrow-- he also saw Dr Castillo who thinks its more muscular- wanted him on nsaid and heart doctor richar escobedo-- doing well with the welbutrin- and saw [...] Diagnosis: Rash (782.1) [facility] [employer] Quentin layton guarantor
--- OUTSIDE RECORDS SUMMARY | 2018-05-15 00:24 | XMS RPT_ITS | Continuity of Care Document ---
:1950 Author Organization [facility] Address [address] [facility] [address] [place] [address] Phone Care Team Providers Name Role Phone Adelaida Fraga DO Unavailable Remigio Lares MD Unavailable Tawanda Alonso Unavailable [facility] Unavailable Eliana Carter Unavailable [...] colonsoocpy 09/05- polyps - repeat 5 years [facility] Status: Active Coronary artery disease (I25.10, [...] Solution daily for 90 days Quantity: 3 {Hamilton} Refills: 5 Ordered:31-Oct-2017 Adelaida ACKERMAN DO Adelaida [...] A Start : 02-Nov-2017 Active Comments:sixtyDX: M54.16, M51.87839,411,000 - OD risk 100 Lunesta 3 MG [...] 20-Mar-2013 Inactive Comments:alternate with 20mg(per hans at [facility] - was not fillable if more than 1qd and would require pa at [phone] or [phone] - sent in this way to see [...] (Oral Capsule) 1 (one) Capsule Capsule bid q1ykfhq for 21 days Quantity: 42 {Capsule} Refills: [...] : 02-Sep-2010 End : 05-Nov-2010 Inactive NYSTATIN, 059717OXMI/ML (Mouth/Throat Suspension) 10 cc tid for 0 [...] : 22-Jun-2013 End : 03-Sep-2013 Inactive ZOSTAVAX, 11358FKG/0.65ML (Subcutaneous Solution Reconstituted) 1 For Solution sc [...] Quantity: 3 {Inhaler} Refills: 3 Ordered:10-Apr-2014 Slarb BULL CHAIN OPERATOR, Tracey Start : 22-Jun-2013 End : 10-Apr-2014 Discontinued ATENOLOL, 50MG (Oral Tablet) 1 tab Tablet qd for 30 days Quantity: 30 {Tablet} Refills: 0 Ordered:10-Apr-2014 Slarb BULL CHAIN OPERATOR, Tracey Start : 12-Jun-2012 End : 10-Apr-2014 Discontinued Atorvastatin Calcium 80 MG Oral Tablet 1 (one) Tablet qd for 30 days Quantity: 30 {Tablet} Refills: 3 Ordered:06-Jun-2017 Flakito ACKERMANManoloa AFast DO, Adelaida A Start : 06-Jun-2017 End : 06-Jun-2017 Discontinued CHERATUSSIN AC, 100-10MG/5ML (Oral Solution) 1-2 Teaspoon qhs prn for 0 days Quantity: 8 {Ounce} Refills: 0 Ordered:10-Jun-2014 Leigh Ann oPlk Start : 10-Apr-2014 End : 10-Jun-2014 Discontinued [...] Quantity: 60 {Capsule} Refills: 3 Ordered:10-Apr-2014 Slarb BULL CHAIN OPERATOR, Tracey Start : 29-Oct-2013 End : 10-Apr-2014 Discontinued Dymista 137-50 MCG/ACT Nasal Suspension 1 spray each nostril qd for 0 days Quantity: 2 {Hamilton} Refills: 0 Ordered:11-Jun-2016 Leigh Ann Polk Start [...] Start : 05-Jan-2016 End : 06-Apr-2016 [id number] viewed and approved- gave scripts to [...] Quantity: 6 {Package} Refills: 0 Ordered:10-Apr-2014 Slarb BULL CHAIN OPERATOR, Tracey Start : 06-Feb-2014 End : 10-Apr-2014 [...] x3 one on scalp two on right episcopalian Status: Inactive as of 06-Jun-2017 Acute sinusitis, [...] W/WO Contrast Result: Comments: See Note; NOTES: [facility] Imaging Services [address] [place] [address] Brain W/WO Contrast MR#: [id number] Acct: [id number] Name: YUMIKO LANDRUM Rep #: [id number] : 1950 M 67 From: Rodney Sarah MD PCP: Adelaida Fraga DO Status: REG CLI Study: Brain W/WO Contrast Date of Exam: 09/26/17 Exam# [id number] Ordering Dr: Perico Crowe MD STUDY: MRI [...] CC: Perico Crowe MD; Adelaida Fraga DO Land Management Forester: Signed 17-Sep-2017 Carotid Duplex Ultrasound Result: Comments: See Note; NOTES: [facility] Cardiovascular Services [address] [place] [address] Carotid Duplex Ultrasound 09/16/17 1012 MR#: [id number] Acct: [id number] Name: YUMIKO MCCOLLUM Rep #: [id number] : 1950 66 From: Jung Garcia MD [...] the left vertebral artery. Procedure Carotid Duplex 39790. The study was technically difficult. Exam performed [...] Date Dictated: 1012 Date Transcribed: 09/17/17 151 Land Management Forester: Signed 17-Aug-2017 History and Physical Exam Result: Comments: See Note; NOTES: [facility] Medical Records Department [address] [place] [address] History and Physical 08/17/17913 MR#: [id number] Acct: [id number] Name: LYON ZAINDUSTY E Rep #: [id number] : 1950 66 From: Remigio Lares MD PCP: Adelaida Fraga DO Status: [place] [facility] [place] Location: [facility] Problem List (1) Abnormal stress test Status: Acute (2) Atherosclerotic heart d isease of [place] coronary artery without angina pectoris Status: Chronic Qualifiers: [place] vs. transplanted heart: [place] heart Qualified Code(s): I25.10 - Atherosclerotic heart disease of [place] coron elise artery without angina pectoris Comment: [...] was trivial MR and TR and mild NE. His estimated RV systolic pressure was 30 [...] please see previously dictated out the patient AKIACHAK from 07/14/2017. Review of systems: Upon review [...] this approach. This note was generated with Chiasma dictation software. It may contain incorrect words, spelling, and punctuation that were not noted in checking the note bef ore signing. 08/17/17 0925 <Electronically signed by Remigio Lares MD> Date Remigio Lares MD Cosigner Signature: Date (if applicable) CC: Adelaida Fraga DO; Remigio Lares MD Signed 11-Aug-2017 Chest PA and Lateral Result: Comments: See Note; NOTES: [facility] Imaging Services [address] [place] [address] Chest PA and Lateral MR#: [id number] Acct: [id number] Name: YUMIKO LANDRUM Rep #: [id number] : 1950 M 66 From: Will Guerrero MD PCP: Adelaida Fraga DO Status: REG CLI Study: Chest PA and Lateral Date of Exam: 08/11/17 Exam# [id number] Ordering Dr: Remigio Lares MD STUDY: X-RAY [...] CC: Adelaida Fraga DO; Remigio Lares MD Land Management Forester: Signed 02-Aug-2017 Stress Report Result: Comments: See Note; NOTES: [facility] Cardiovascular Services [address] [place] [address] MR#: [id number] Acct: [id number] Name: YUMIKO LANDRUM Rep #: [id number] : [birth year] 66 From: Remigio Lares MD [...] 72 %. This note was generated with Sookbox software. It may contain incorrect words, spelling, and punctuation that were not noted in checking the note before signing. 08/02/17 4715 <Electronically signed by Remigio Lares MD> Date Remigio Lares MD CC: Adelaida Fraga DO; Remigio Lares MD Date Dictate d: 08/02/171638 Date Transcribed: 08/02/171638 Land Management Forester: PM Signed 14-Jul-2017 Cardiology Visit Report Result: Comments: See Note; NOTES: [facility] [address] [place] [address] OFFICE VISIT Date of Service: 07/14/17 MR#: [id number] Acct: [id number] Name: YUMIKO LANDRUM Rep #: [id number] : 1950 Provider: Remigio Lares MD Age/Sex: 66/M Location: [facility] Status: Signed HPI HPI Details: YUMIKO LANDRUM, is a 66 M who presents to the office today for outpatient card iovascular consultation for history of underlying CAD status post LAD PCI. He has been cared for in the past both by the [facility] members (Drs. Griggs and Edwin), at [facility] by Dr. Rosales, and at [facility] by Dr. Maury Veliz. He states he lost saw Dr. Veliz approximately 1 year ago. He is now relocating his care locally. He has a history of underlying CAD. He underwent a previous diagnostic car diac catheterization on 08/11/2005 at [facility]. At that point in time he [...] no significant stenosis. In April 2008, at [facility], he had a repeat diagnostic cardiac [...] irregularities. He apparently was transferred to [facility] for further evaluation and care. [...] an LYNDSEY inhibitor. He believes his former network diagnostic support specialist remove these medications from pr s medication [...] PO QAM cap 07/14/17 [History Confirmed 07/14/17] [facility] Medical History Presence of sten t in coronary artery (Chronic 08/11/05) Hyperlipidemia (Chronic) Hypertension (Chronic) Prinzmetal angina (Acute) Atherosclerotic heart disease of [place] coronary artery without angina pectoris (Chroni c) [...] affect Assessment AND Plan 1. Atherosclerosis of [place] coronary artery of [place] heart without angina pectoris I25.10 PTCA/RINA to [...] Code Off vis,new,level 4 Diagnoses Atherosclerosis of [place] coronary artery of [place] heart without angina pectoris I25.10 [place] vs. transplanted heart: n ative heart Presence of stent in coronary artery Z95.5 Hyperlipidemia, unspecified hyperlipidemia type E78.5 Hyperlipidemia type: unspecified Essential hypertension I10 Hypertension type: essential hype rtension COPD (chronic obstructive pulmonary disease) J44.9 Coding Level of Care Code Off vis,new,level 4 Diagnoses Atherosclerosis of [place] coronary artery of [place] heart without angina pectoris I 25.10 [place] vs. transplanted heart: [place] heart Presence of stent in coronary artery Z95.5 Hyperlipidemia, unspecified hyperlipidemia type E78.5 Hyperlipidemia type: unspecified Essential hypertension I10 Hypertension type: essential hypertension COPD (chronic obstructive pulmonary disease) J44.9 07/14/17 1558 <Electronically signed by Remigio Lares MD> Date Remigio Lares MD Cosigner Signature: Date (if applicable) CC: Adelaida Fraga DO 14-Jul-2017 12 Lead EKG performed by [facility] Result: Comments: See Note; NOTES: [facility] [address] [place] [address] 12 Lead EKG performed by [facility] 07/14/176 MR#: [id number] Acct: [id number] Name: YUMIKO LANDRUM Rep #: [id number] : 1950 66 From: Remigio Lares MD Attending Dr: Remigio Lares MD Status: DEP AMB Ordering Dr: Remigio Lares MD Date: 07/14/17 [place] [facility] [place] Sex: M C Admitted: [facility]/12 Lead EKG performed by [facility] ECG Report Interpretation Sinus Rhythm Right bundle branch block. ABNORMAL Electronically signed on 07/14/2017 at 17:15 by Remigio Lares 07/14/17 1717 Date Remigio Lares MD CC: Adelaida Fraga DO Date Dictated: 07/14/171435 Date Transcribed: 07/14/171435 Land Management Forester: PM Signed 04-Jul-2017 TXT - Blood Flow Screening Result: Comments: See Note; NOTES: [facility] Cardi[facility] Services [address] [place] [address] 07/04/17 0840 MR#: [id number] Acct: [id number] Name: YUMIKO LANDRUM Rep #: [id number] : 1950 66 From: Jung Garcia MD Attending Dr: Adelaida Fraga DO Status: REG REF Ordering Dr: Date: 07/04/17 Location: [facility] Sex: M C Admitted: Reason For Study: [...] (1.0 or greater). Ordering Physician: Adelaida Fraga [facility] Physician: Adelaida Fraga Performed By: Kayla Kelley, RDCS, RVT 07/04/172221 Date Tyrese Garcia MD CC: Adelaida Fraga DO Date Dictated: 07/04/17 0840 Date Transcribed: 07/04/172221 Land Management Forester: Signed 06-Jun-2017 L/S Spine Min 4 Views Result: Comments: See Note; NOTES: [facility] Imaging Services [address] [place] [address] L/S Spine Min 4 Views MR#: [id number] Acct: [id number] Name: YUMIKO LANDRUM Rep #: [id number] : 1950 M 66 From: Rafael Manley DO PCP: Adelaida Fraga DO Status: REG CLI Study: L/S Spine Min 4 Views Date of Exam: 06/06/17 Exam# [id number] Ordering Dr: Adelaida Fraga DO STUDY: X-RAY [...] Rafael Manley DO at 18:01 EDT Tel [phone], Service support , CC: Adelaida Fraga DO Land Management Forester: Signed 18-Feb-2017 Ankle min 3 Views Result: Comments: See Note; NOTES: [facility] Imaging Services [address] [place] [address] Ankle min 3 Views MR#: [id number] Acct: [id number] Name: YUMIKO LANDRUM Rep #: [id number] D OB: 1950 M 66 From: Trevon Carrillo MD PCP: Adelaida Fraga DO Status: REG CLI Study: Ankle min 3 Views Date of Exam: 02/18/17 Exam# [id number] Ordering Dr: Adelaida Fraga DO STUDY: X-RAY [...] Service support , CC: Adelaida Fraga DO Land Management Forester: Signed 18-Feb-2017 Chest without Contrast Result: Comments: See Note; NOTES: [facility] Imaging Services [address] [place] [address] Chest without Contrast MR#: [id number] Acct: [id number] Name: YUMIKO LANDRUM Rep #: [id number] : 1950 M 66 From: Kaitlin Campoverde PCP: Adelaida Fraga DO Status: REG CLI Study: Chest without Contrast Date of Exam: 02/18/17 Exam# [id number] Ordering Dr: Adelaida Fraga DO STUDY: CT [...] Service support , CC: Adelaida Fraga DO Land Management Forester: Signed 10-Feb-2017 Chest PA and Lateral Result: Comments: See Note; NOTES: [facility] Imaging Services [address] [place] [address] Chest PA and Lateral MR#: [id number] Acct: [id number] Name: YUMIKO LANDRUM Rep #: [id number] : 1950 M 66 From: Chava Fu MD PCP: Adelaida Fraga DO Status: REG CLI Study: Chest PA and Lateral Date of Exam: 02/10/17 Exam# [id number] Ordering Dr: Yola Witt STUDY: X-RAY CHEST [...] , CC: COCO Witt; Adelaida Fraga DO Land Management Forester: Signed 18-Jan-2017 Chest PA and Lateral Result: Comments: See Note; NOTES: [facility] Imaging Services [address] [place] [address] Chest PA and Lateral MR#: [id number] Acct: [id number] Name: YUMIKO LANDRUM Rep #: [id number] : 1950 M 66 From: Erwin Jiménez MD PCP: Adelaida Fraga DO Status: REG CLI Study: Chest PA and Lateral Date of Exam: 01/18/17 Exam# [id number] Ordering Dr: Yola Witt STUDY: X-RAY CHES [...] EST Tel , Service support , CC: UNIT REACTOR OPERATORMayra Witt; Adelaida Fraga DO Land Management Forester: Signed 11-Apr-2015 Chest PA and Lateral Result: Comments: See Note; NOTES: [facility] Imaging Services [address] [place] [address] Verdana 4d Chest PA and Lateral MR#: [id number] Acct: [id number] Name: YUMIKO LANDRUM Rep #: [id number] : 1950 64 From: Stephen Barba MD PCP: Adelaida Fraga DO Status: REG CLI Study: Chest PA and Lateral Date of Exam: 04/11/15 Exam# [id number] Ordering Dr: Adelaida Frgaa DO STUDY: X-RAY CHEST REASON FOR EXAM: [...] FACR at 20:20 EST , Service support [phone], RAD/Chest PA and Lateral IMPRESSION: Normal x-ray examination of the chest. No lingular infiltrate is noted on today's examination Electronically Signed: Stephen Barba MD, FACR at 20:20 EST , Service support [phone], CC: Adelaida Fraga DO Land Management Forester: Signed 11-Apr-2015 Hip min 2 Views Result: Comments: See Note; NOTES: [facility] Imaging Services [address] [place] [address] [place] 4d Hip min 2 Views MR#: [id number] Acct: [id number] Name: DOMINICKNATHAN QUIÑONEZHERNANDO Taylor Rep #: [id number] : 1950 64 From: Stephen Barba MD PCP: Adelaida Fraga DO Status: REG CLI Study: Hip min 2 Views Date of Exam: 04/11/15 Exam# [id number] Ordering Dr: Adelaida Fraga DO UDY: X-RAY [...] FACR at 20:19 EST , Service support [phone], RAD/Hip min 2 Views IMPRESSION: Normal x-ray examination of the pelvis and hip. Electronically Signed: Stephen Barba MD, FACR 201 07/23/18 at 20:19 EST , Service support [phone], CC: Adelaida Fraga DO Land Management Forester: Signed 11-Apr-2015 L/S Spine Min 4 Views Result: Comments: See Note; NOTES: [facility] Imaging Services [address] [place] [address] Ver[place]ana 4d L/S Spine Min 4 Views MR#: [id number] Acct: [id number] Name: YUMIKO LANDRUM Rep #: [id number] : 1950 64 From: Stephen Barba MD PCP: Adelaida Fraga DO Status: REG CLI Study: L/S Spine Min 4 Views Date of Exam: 04/11/15 Exam# [id number] Ordering Dr: Susannah Fraga ra, DO STUDY: [...] FACR at 20:20 EST , Service support [phone], RAD/L/S Spine Min 4 Views IMPRESSION: M ild degenerative disc disease at L2-3 and L5-S1. Facet arthrosis at L4-5 and L5-S1. Mild dextroscoliosis. Electronically Signed: Stephen Barba MD, FACR at 20:20 EST Tel , Service support [phone], CC: Adelaida Fraga DO Land Management Forester: Signed 27-Aug-2014 Chest PA and Lateral Result: Comments: See Note; NOTES: [facility] Imaging Services [address] [place] [address] Radiology Report MR#: [id number] Acct: [id number] Name: YUMIKO LANDRUM [place] Rep #: [id number] : 1950 M 63 From: Wilfredo Alvarado MD PCP: Adelaida Fraga DO Status: REG CLI Study: Chest PA and Lateral Date of Exam: 08/27/14 Exam# [id number] Ordering Dr: Adelaida Fraga DO STUDY: X- [...] Wilfredo Alvarado MD at 15:46 EDT Tel [phone], Service support [phone], 0079 RAD/Chest PA and Lateral IMPRESSION: Inc reased markings in the lingular segment of the left upper lobe suggestive of early infiltrate. Followup is recommended. Electronically Signed: Wilfredo Alvarado MD at 15:46 EDT Tel [phone], Service support [phone], CC: Adelaida Fraga DO Land Management Forester: Signed 02-Jul-2013 12 Lead Electrocardiogram Result: Comments: See Note; NOTES: [facility] Cardi[facility] Services [address] [place] [address] 12 Lead EKG 06/17/13 1938 MR#: [id number] Acct: [id number] Name: CITLALLI LANDRUM [place] Rep #: [id number] : 1950 62 From: Remigio Lares MD [...] Abnormal ECG Confirmed by GERDA CALVO, REMIGIO ([id number]), scientific publications editor KARYNA RUBALCAVA ([id number]) on 2013 10:04:35 AM Referred By: Jose Fernando Confirmed By:REMIGIO LARES MD CC: Adelaida byrd DO Date Dictated: 06/17/131937 Date Transcribed: 06/17/131937 Land Management Forester: Signed 30-Jun-2013 Emergency Department Summary Result: Comments: See Note; NOTES: [facility] Medical Records Department [address] [place] [address] Emergency Department Summary MR#: [id number] Acct: [id number] Name: YUMIKO LANDRUM Rep #: [id number] : 1950 62 From: Jose Fernando MD PCP: Adelaida Fraga DO Status: DEP ER DATE OF SERVICE: 06/28/2013 CHIEF COMPLAINT: Chest pain. HISTORY OF PRESENT ILLNESS: The patient states over the past 8 hours, he has had intermittent discomfort in the chest of burning to ache similar to angina. He had an HI, he thinks, back in 2011 when he had a stent placed by Dr. Mariah carr in [facility]. He has been off his blood [...] and sensation, cranial nerve function and treatment. [facility] DEPARTMENT COURSE: Portable one-view chest x-ray [...] a 3. He agreed to go to [facility] where his network diagnostic support specialist is in case he needs another cath and stent. He was stable for transfer. I spoke with [facility], Jorge and Dr. Trujillo as international first officer accepted the patient after being advised of all the above through the transfer steam table associate. He did not want to talk to me. The patient is stable for transfer, with him. DIAGNOSES: 1. Chest pain. 2. Unstable angina. Jose Fernando MD C C: Adelaida Fraga DO T: NTS JOB: [id number] 06/30/13 0021 <Electronically signed by Jose Fernando MD> Date Jose Fernando MD CC: Adelaida Fraga DO Date Dictated: 06/28/132254 Date Transcribed: 06/28/132254 Land Management Forester: Signed 28-Jun-2013 Chest 1 View (Portable) Result: Comments: See Note; NOTES: [facility] Imaging Services [address] [place] [address] Radiology Report MR#: [id number] Acct: [id number] Name: YUMIKO LANDRUM [place] Rep #: [id number] : 1950 M 62 From: Wilfredo Alvarado MD PCP: Adelaida Fraga DO Status: DEP ER Study: Chest 1 View (Portable) Date of Exam: 06/28/13 Exam# [id number] Ordering Dr: Jose Fernando MD STUDY: X-RAY [...] Wilfredo Alvarado MD at 9:06 EDT Tel [phone], Service support [phone], CC: Adelaida Fraga DO; Jose Fernando MD Land Management Forester: Signed Immunization Name Dates Details Influenza vaccine, split, 3yrs &>, IM (AFLURIA) on: Nov-2017 Influenza, inj, MDCK, preservative free, q.valent on: 07-Dec-2016 Comments: Site: Lot #: [id number] Family History Unknown Family Member Name Dates [...] Status: Active 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 criteria.Please note revised GLUCOSE reference range waxlsvgoq31/02/2018. 85-Lki-822381:31 Hemoglobin A1c Comments: [facility] [address] [place], [place], [address] HGB A1C 6.0 % (Normal) Range: 4.2-6.3 79-Ksa-100882:31 Lipid Profile Comments: [facility] [address] [place], [place], [address] VLDL 24 mg/dL (Normal) Range: 5-40 LDL [...] Risk :31 PSA,Total - Annual Screen Comments: [facility] [address] [place], [place], [address] PSA,TOT SCREEN 0.50 ng/mL (Normal) Range: 0.00-4.00 Comments: This test was performed using the TPSA assay method for the[facility] chemistry system. Values obtained with differentassay methods cannot be used interchangably.When changing PSA assays in the course of monitoring apatient, additional sequential testing should be carriedout to confirm baseline values. 57-Qgc-961843:42 Aspergillus Antibodies Comments: [facility] (refer to report for specific site)refer to report for address and phone number Asp. niger Negative (Normal) Asp. flavus Negative (Normal) Asp. fumigatus Negative (Normal) :42 Immunoglobulin E Comments: [facility] (refer to report for specific site)refer to report for address and phone number IMMUNO E 19 {IU/mL} (Normal) Range: 0-100 51-Nwb-629221:42 Immunoglobulin G Comments: [facility] (refer to report for specific site)refer to report for address and phone number IMMUNO G 702 mg/dL (Normal) Range: 700-1600 Comments: Performed at: [address] [id number] Director: Joseph Velez MD, Phone: [phone] at: [place] [address]Ojn Director: Hugo Britt PhD, Phone: [phone] 22-Sph-719736:42 Miscellaneous Lab Comments: Comments: [id number] CASTRO,RTTest(s) Ordered: [facility] [address] [place], [place], [address] Procedure MIS Comments: TEST RESULT UNITS REFERENCE INTERVALA. fumigatus #1 Abs NEGATIVE NEGATIVE TESTING PERFORMED AT [facility]. O LAB (Normal) RIGINAL REPORT ON FILE IN LAB CONTAINS ADDITIONAL TEST SITE INFORMATION. TEST 5-Klm-528303:28 Acetylcholine Receptor Comments: Has Patient had Radioactive Injection for X-ray?: [facility] (refer to report for specific site)refer to report for address and phone number ACTYL [id number] < 0.03 nmol/L (Normal) Range: 0.00-0.24 Comments: Negative: 0.00 - 0.24 Borderline: 0.25 - 0.40 Positive: > 0.40Performed at: [address] [id number] Director: Joseph Velez MD, Phone: [phone] 4-Cxq-995377:28 BUN 9 mg/dL (Normal) Comments: [facility] [address] [place], [id number] Range: 7-18 5-Tcy-767054:28 Serum Creatinine AND GFR Comments: [facility] [address] [place], [id number] EST GFR - AA 100 mL/min (Normal) Comments: GFR Calc EST GFR 83 mL/min (Normal) Comments: Non- GFR Calc CREAT,SERUM 0.97 mg/dL (Normal) Range: 0.70-1.30 Comments: The validity of the calculated GFR AND GFRAA in patients over70 years has not been determined. Clinical correlation isessential. 72-Cda-747331:13 Culture, Fungus 8482 Comments: [facility] [address] [place], [address] CUF See Note Comments: Cu,Squjnb6364 TESTING PERFORMED AT [facility]. ORIGINAL REPORT ON FILE IN LAB CONTAINS ADDITIONAL TEST SITE INFORMATION. (Normal) ORGANISM 1: Barron albicansAmount Growth Growth ORGANISM 2: Penicillium speciesAmount Growth Growth 63-Dsv-183985:13 Culture, Sputum Comments: [facility] [address], [address] CUSP See Note (Normal) Comments: Gram StainAcceptable Specimen? Yes (<25 Epithelial cells per/lpf) Gram Stain 2+ White Blood Cells 2+ Epithelial cells 4+ Gram positive cocci 4+ Gram positive rods Resp. CultureNo Haemoph ilus, Streptococcus pneumoniae, beta-hemolytic Streptococcus or Staphylococcus aureus isolated. ORGANISM 1: Yeast Like OrganismAmount Growth Rare ORGANISM 2: Mixed FloraAmount Growth 3+ 36-Hoa-527540:59 CBC W/Diff, Automated Comments: [facility] Yamzwjfkin[address] [place], [place], [address] Absolute Lymph 1.98 {X10_3/ul} (Normal) Range: 0.83-4.51 [...] 4.6-6.2 WBC 10.8 K/mm3 (Normal) Range: 4.4-11.0 51-Hcy-779834:59 Comprehensive Metabolic Profil Comments: [facility] Jiiusxrmqp3648 [address] [place], [place], [address] GAP 10 (Normal) Range: 5-15 CO2 27.0 [...] A.D.A. criteria.Please note revised GLUCOSE reference range zamlpqbsi64/02/2018. 19-Qok-810068:59 Hemoglobin A1c Comments: [facility] [address] [place], [place], [address] HGB A1C 6.2 % (Normal) Range: 4.2-6.3 48-Llo-772133:59 Lipid Profile Comments: [facility] Ptpc[address]ftzem[address] [facility] [address] [place], [place], [address] VLDL 13 mg/dL (Normal) Range: 5-40 LDL [...] 200-240 mg/dL Borderline >240 mg/dL High Risk 02-Tbx-940588:59 Microalb:Creat Ratio,Random UR Comments: [facility] Ydtbukqibs[address] [place], [place], [phone] MALB:CREAT 10.1 {mg/g_CRE} (Normal) MICROALBUMIN,UR 5.6 mg/L (Normal) UR CREAT 55.70 mg/dL (Normal) :45 Basic Metabolic Profile (BMP) Comments: [facility] Lyacuietzn[address] [place], [place], [address] GAP 6 (Normal) Range: 5-15 CO2 29.0 [...] Comments: Please note revised GLUCOSE reference range ehijexmvc42/02/2018. 7-Gzb-537926:45 Lipid Profile Comments: [facility] Yjrhyzhfhh[address] [place], [place], [address] VLDL 22 mg/dL (Normal) Range: 5-40 LDL [...] 200-240 mg/dL Borderline >240 mg/dL High Risk 9-Tbp-444954:45 Liver Profile Comments: [facility] Qxhqbuwgub9470 [place], [address] D BILI 0.13 mg/dL (Normal) Range: 0.00-0.30 T BILI 0.50 mg/dL (Normal) Range: 0.20-1.00 ALT 27 U/L (Normal) Range: 16-61 ALK P 53 U/L (Normal) Range: 45-117 AST 20 U/L (Normal) Range: 15-37 GLOB 4.3 g/dL (Abnormal) Range: 2.2-4.2 ALB 3.0 g/dL (Abnormal) Range: 3.2-5.0 T PROT 7.3 g/dL (Normal) Range: 6.4-8.2 01-Ugt-490354:31 Basic Metabolic Profile (BMP) Comments: [facility] Ctcmtlfywk[address] [place], [place], [address] GAP 4 (Abnormal) Range: 5-15 CO2 27.0 [...] A.D.A. criteria.Please note revised GLUCOSE reference range aznrdkrrn35/02/2018. 90-Wgp-257023:31 CBC-Complete Blood Cnt No Diff Comments: [facility] Liarrabgtv5[address] [place], [place], [address] MPV 8.7 fL (Normal) Range: 6.2-12.0 PLT [...] 4.6-6.2 WBC 9.6 K/mm3 (Normal) Range: 4.4-11.0 94-Tpd-886008:31 Partial Thromboplast Time Comments: [facility] [address] [place], [place], [address] PTT 26.1 s (Normal) Range: 24.1-36.2 97-Lrx-734717:31 Prothrombin Time w/INR Comments: [facility] Yoekjiyieh[address] [place], [place], [address] INR 0.9 (Normal) PROTIME 12.5 s (Normal) Range: 11.7-14.9 :00 Culture, Fungus 8482 Comments: [facility] [address] [place], [address] CUF See Note Comments: Cu,Trmwzi1584 TESTING PERFORMED AT [facility]. ORIGINAL REPORT ON FILE IN LAB CONTAINS ADDITIONAL TEST SITE INFORMATION. (Normal) ORGANISM 1: Barron albicansAmount Growth Growth ORGANISM 2: Penicillium speciesAmount Growth Growth ORGANISM 3: Aspergillus speciesAmount Growth Growth :00 Culture, Sputum Comments: [facility] [address] [place], [place], [address] CUSP See Note (Normal) Comments: Gram StainAcceptable Specimen? Yes (<25 Epithelial cells per/lpf) Gram Stain 1+ White Blood Cells Rare Epithelial cells 4+ Gram positive rods 1+ Gram negative rods Resp. Culture Mixed nor mal respiratory ashkan. No Haemophilus, Streptococcus pneumoniae, beta-hemolytic Streptococcus or Staphylococcus aureus isolated. 57-Tgg-770764:00 Culture, Sputum Comments: [facility] [address] [place], [address] CUSP See Note (Normal) Comments: Gram StainAcceptable Specimen? Yes (<25 Epithelial cells per/lpf) Gram Stain 1+ White Blood Cells Rare Epithelial cells 3+ Gram positive cocci Resp. CultureMixed normal respiratory ashkan. No Haemophilus, Streptococcus pneumoniae, beta-hemolytic Streptococcus or Staphylococcus aureus isolated. 87-Iqx-656349:44 TESTOSTERONE FREE (21756) Comments: PATIENT NOT FASTINGPERFORMED BY: [facility] SystemOiahvi8923 [facility] [id number] BY: [address] [id number] Free Testosterone(Direct) 2.6 pg/mL (Abnormal) Range: 6.6-18.1 06-Opj-438997:44 HEPATITIS C ANTIBODY Comments: PATIENT NOT FASTINGPERFORMED BY: [place] [address] [facility] [id number] BY: [address] [id number] ([address]) Hep C Virus Ab 0.1 {s/co_ratio} (Normal) Range: 0.0-0.9 Comments: Negative: < 0.8 Indeterminate: 0.8 - 0.9 Positive: > 0.9 . The CDC recommends that a positive HCV antibody result be followed up with a HCV Nucleic Acid Amplification test (777377). 52-Dwl-302110:44 CBC W/AUTO DIFF WBC Comments: PATIENT NOT FASTINGPERFORMED BY: [place] 9901870 [facility] [id number] BY: [address] [id number] ([address]) Immature Grans (Abs) 0.0 {x10E3/uL} (Normal) Range: [...] 4.14-5.80 WBC 6.1 {x10E3/uL} (Normal) Range: 3.4-10.8 82-Agw-033266:44 METABOLIC PANEL, Comments: PATIENT NOT FASTINGPERFORMED BY: CB [facility] Lafjeb5398 [facility] [id number] BY: BN [facility] Kbjoqkrssy5511 [facility] [id number] [facility] ([address]) ALT (SGPT) 17 [iU]/L (Normal) Range: 0-44 [...] 8-27 Glucose 102 mg/dL (Abnormal) Range: 65-99 09-Wbe-255298:15 HgA1C , Office (83442) HgA1C , Office 5.7 % (Normal) Range: 4.6 - 7.1 :30 CBC W/Diff, Automated Comments: [facility] [address]ds[address]fgcs[address] [place], [address] Absolute Lymph 1.76 {X10_3/ul} (Normal) Range: 0.83-4.51 [...] 4.6-6.2 WBC 6.7 K/mm3 (Normal) Range: 4.4-11.0 74-Qyz-444930:30 Comprehensive Metabolic Profil Comments: [facility] Fqznapjphe[address] [place], [address] GAP 9 (Normal) Range: 5-15 CO2 25.0 [...] 7-18 GLU 78 mg/dL (Normal) Range: 70-110 68-Rpc-323401:30 Culture, Urine Comments: [facility] Qzdaqqenwj7430 [place], [address] CUUR See Note (Normal) Comments: Urine CultureCulture exhibits no growth. 56-Ajh-299027:30 Lipid Profile Comments: [facility] Wholglfqwn74[address] [place], [address] VLDL 19 mg/dL (Normal) Range: 5-40 LDL [...] 200-240 mg/dL Borderline >240 mg/dL High Risk 18-Eoi-832918:10 Rapid Strep Test, Office (17132) Comments: Negative Rapid Strep Test, Office Negative (Normal) 86-Fjd-32014:51 THROAT CULTURE (92384) Comments: PATIENT NOT FASTINGPERFORMED BY: Let [employer] [facility] [id number] Information: SRC: Result 1 RRF (Normal) Comments: Routine respiratory ashkan Upper Respiratory Culture Final report (Normal) 37-Grs-539879:02 Rapid Flu (31187 x 2) Comments: Negative Influenza A Ag Negative (Normal) :45 URINE WARREN CULTURE-IDENTIFICATN Comments: PERFORMED BY: Let [facility] Qwkurj2417 [facility] [id number] Information: SRC:UC (68586) Result 1 NG36 (Normal) Comments: No growth in 36 - 48 hours. Urine Culture,Comprehensive Final report (Normal) 51-Qxv-642925:02 Urinalysis, Office (42818) UA - LEUKOCYTE ESTERASE Negative (Normal) UA - NITRITE Negative (Normal) URINE UROBILINGN MASSIEL TIMED Normal mg/dL (Normal) UA - PROTEIN Negative mg/dL (Normal) UA - PH 7 (Normal) UA - BLOOD Negative (Normal) UA - SPECIFIC GRAVITY 1.020 (Normal) UA - KETONES Negative mg/dL (Normal) UA - BILIRUBIN Negative (Normal) UA - GLUCOSE Negative (Normal) 94-Qbf-846574:22 CBC W/Diff, Automated Comments: [facility] Tihlmcfhjs04[address] [place], [address] Absolute Lymph 1.50 {X10_3/ul} (Normal) [...] 4.6-6.2 WBC 6.2 K/mm3 (Normal) Range: 4.4-11.0 88-Yti-438687:22 Comprehensive Metabolic Profil Comments: [facility] Rzoizgrcem2768 [place], [address] ; will review opn 11/10 [...] 7-18 GLU 104 mg/dL (Normal) Range: 70-110 88-Lha-558476:22 Hemoglobin A1c Comments: [facility] Dqgerkyzbm6110 [address] [place], [place], [address] HGB A1C 5.6 % (Normal) Range: 4.2-6.3 39-Iym-928476:22 Immunofixation, Serum Comments: [facility] (refer to report for specific site)refer to report for address and phone number PAULA RESULT,S Comment (Normal) Comments: No monoclonality detected. IMMUNOGL M 53 mg/dL (Normal) Range: 20-172 IMMUNO A 169 mg/dL (Normal) Range: 61-437 IMMUNO G 692 mg/dL (Abnormal) Range: 700-1600 92-Iec-654095:22 [place] [employer] Chains Comments: [facility] (refer to report for specific site)refer to report for address and phone number KAPPA/LAMBDA % 1.17 (Normal) Range: 0.26-1.65 Comments: Performed at: - [facility] [id number] Director: Hugo Birtt PhD, Phone: [phone] FR LAMBDA LT CH 12.3 mg/L (Normal) Range: 5.7-26.3 FR KAPPA LT CHN 14.4 mg/L (Normal) Range: 3.3-19.4 27-Llo-866764:22 Lipid Profile Comments: [facility] Ruvdtnvxdd0[address] [place], [place], [address] VLDL 20 mg/dL (Normal) Range: 5-40 LDL [...] 200-240 mg/dL Borderline >240 mg/dL High Risk 11-Mdm-092666:22 Microalb:Creat Ratio,Random UR Comments: [facility] Dkolveskdm3260 [place], [address] ; will review on 11/10 MALB:CREAT 5.6 {mg/g_CRE} (Normal) MICROALBUMIN,UR 7.2 mg/L (Normal) UR CREAT 128.00 mg/dL (Normal) 66-Ukj-833725:22 PSA,Total - Annual Screen Comments: [facility] Yclshlsuqs5[address] [place], [place], [address] PSA,TOT SCREEN 0.63 ng/mL (Normal) Range: 0.00-4.00 Comments: This test was performed using the TPSA assay method for theSt. [facility] chemistry system. Values obtained with differentassay methods cannot be used interchangably.When changing PSA assays in the course of monitoring apatient, additional sequential testing should be carriedout to confirm baseline values. :07 CBC W/Diff, Automated Comments: [facility] [address] [place], [place], [phone] Absolute Lymph 1.42 {X10_3/ul} (Normal) Range: 0.83-4.51 [...] Range: 4.4-11.0 :07 Comprehensive Metabolic Profil Comments: [facility] Sm[address] [place], [place], [address] GAP 8 (Normal) Range: 5-15 CO2 27.0 [...] 7-18 GLU 104 mg/dL (Normal) Range: 70-110 02-Hvh-519668:07 Hemoglobin A1c Comments: [facility] Ruewecurdx4[address] [place], [place], [address] HGB A1C 5.6 % (Normal) Range: 4.2-6.3 38-Oki-942502:07 PAULA + Protein Elect, Serum Comments: Is Patient Fasting? [facility] (refer to report for specific site)refer to report for address and phone number NOTE: Comment (Normal) Comments: Protein electrophoresis scan will follow via computer,mail, or temple meat cutter delivery.Performed at: [address] [id number] Director: Hugo Britt PhD, Phone: [phone] PAULA RESULT,S Comment (Normal) Comments: No monoclonality detected. A/G RATIO 1.2 (Normal) Range: 0.7-1.7 GLOBULIN, TOTAL 3.0 g/dL (Normal) Range: 2.2-3.9 M-SPIKE g/dL (Normal) Comments: Not Observed GAMMA GLOBULIN 0.7 g/dL (Normal) Range: 0.4-1.8 BETA GLOBULIN 1.1 g/dL (Normal) Range: 0.7-1.3 NXTQJ-8-JDMD 0.8 g/dL (Normal) Range: 0.4-1.0 XSGIU-7-LOFI 0.3 g/dL (Normal) Range: 0.0-0.4 ALBUMIN 3.3 g/dL (Normal) Range: 2.9-4.4 IMMUNOGL M 53 mg/dL (Normal) Range: 20-172 IMMUNO A 177 mg/dL (Normal) Range: 61-437 IMMUNO G 761 mg/dL (Normal) Range: 700-1600 PROTEIN,TOTAL 6.3 g/dL (Normal) Range: 6.0-8.5 10-Flr-388381:07 Lipid Profile Comments: [facility] [address] [place], [place], [address] VLDL 21 mg/dL (Normal) Range: 5-40 LDL [...] High Risk :01 CBC W/Diff, Automated Comments: [facility] S[address] [place], [address] Absolute Lymph 1.62 {X10_3/ul} (Normal) [...] 4.6-6.2 WBC 7.6 K/mm3 (Normal) Range: 4.4-11.0 65-Vhl-318253:01 Comprehensive Metabolic Profil Comments: [facility] Sexwxsqsjx0417 [place], [place], [address] ; has apt today GAP 7 (Normal) [...] 7-18 GLU 96 mg/dL (Normal) Range: 70-110 35-Fpw-498108:01 Lipid Profile Comments: [facility] Aosidiboqq0924 [address] [place], [place], [address] VLDL 11 mg/dL (Normal) Range: 5-40 LDL [...] 200-240 mg/dL Borderline >240 mg/dL High Risk 58-Kml-994345:01 Lipoprotein A 369 nmol/L (Abnormal) Comments: [facility] [...] genetic factors on Lp(a) across ethnicities.Performed at: Let [employer] [id number] Director: Hugo Britt PhD, Phone: [phone] 43-Wmo-515775:56 HgA1C , Office (67564) HgA1C , Office 5.6 % (Normal) Range: 4.6 - 7.1 7-Dcz-797450:19 ANCA Panel Comments: PATIENT NOT FASTINGPERFORMED BY: [employer] [id number] BY: [employer] [address] [id number] Atypical pANCA <1:20 {titer} Comments: The atypical [...] follow up testing ofpositive sera with both NE-3 and MPO-ANCA enzyme immunoassays. Asmany as 5% serum samp les are positive only by EIA.Ref. AM J Clin Pathol 1999;111:507-513. Cytoplasmic (C-ANCA) <1:20 {titer} (Normal) Antiproteinase 3 (NE-3) Abs <3.5 U/mL (Normal) Range: 0.0-3.5 Antimyeloperoxidase (MPO) Abs <9.0 U/mL (Normal) Range: 0.0-9.0 :19 Antinuclear Antibodies Comments: PATIENT NOT FASTINGPERFORMED BY: [employer] [id number] BY: [facility] [place] [id number] Direct JOHN Direct Negative (Normal) :1 C-Reactive Protein, 2.1 mg/L (Normal) Comments: PATIENT NOT FASTINGPERFORMED BY: [address] [id number] BY: [facility] [facility] [place] [id number] Quant Range: 0.0-4.9 :19 Rheumatoid Arthritis Comments: PATIENT NOT FASTINGPERFORMED BY: [address] [id number] BY: [place] [id number] [address] [facility] [id number] Factor RA Latex Turbid. 7.8 {IU/mL} Range: 0.0-13.9 (Normal) Sedimentation 8 mm/h (Normal) Comments: PATIENT NOT FASTINGPERFORMED BY: [address] [id number] BY: [facility] [facility] [id number] :19 Rate-Westergren Range: 0-30 Thyroid Peroxidase (TPO) 8 {IU/mL} (Normal) Comments: PATIENT NOT FASTINGPERFORMED BY: [address] [id number] BY: [facility] [facility] [place] [id number] :19 Ab Range: 0-34 :19 Thyroxine (T4) Free, Comments: PATIENT NOT FASTINGPERFORMED BY: [address] [id number] BY: [facility] [facility] [place] [id number] Direct, S T4,Free(Direct) 1.11 ng/dL Range: 0.82-1.77 (Normal) Triiodothyronine,Free,Seru 2.5 pg/mL (Normal) Comments: PATIENT NOT FASTINGPERFORMED BY: [facility] [place] [facility] [id number] BY: [facility]6370 [facility] [id number] 2:19 m Range: 2.0-4.4 TSH 3.450 {uIU/mL} Comments: PATIENT NOT FASTINGPERFORMED BY: [facility] [id number] BY: [facility]6370 [facility] [id number] 2:19 (Normal) Range: 0.450-4.500 6-Lyq-861119:30 Pathology Report Comments: PERFORMED BY: [facility] Ylgng85602 [facility] [id number] Information: [id number] See MATER Comments: Material submitted: .FOREHEAD SHAVE [...] IN CASSETTE(S) A./CORCOR/CORPa thologist provided ICD-10:D48.5, L90.9CPT .036161 24-Eyx-92182:22 TESTOSTERONE FREE (25337) Comments: PATIENT WAS FASTINGPERFORMED BY: [employer] [facility] [id number] BY: [employer] [id number] Free Testosterone(Direct) 2.5 pg/mL (Abnormal) Range: 6.6-18.1 76-Qqy-29879:22 VITAMIN B-12 (CYANOCOBALAMIN) Comments: PATIENT WAS FASTINGPERFORMED BY: [employer] [facility] [id number] BY: [employer] [id number] ([address]) Vitamin B12 638 pg/mL (Normal) Range: 211-946 05-Xcy-01782:22 CBC W/AUTO DIFF WBC Comments: PATIENT WAS FASTINGPERFORMED BY: [employer]70 [facility] [id number] BY: [employer] [id number] Inf ormation: NURSE DRAW (97139) Immature Grans (Abs) 0.0 {x10E3/uL} (Normal) Range: [...] 4.14-5.80 WBC 7.3 {x10E3/uL} (Normal) Range: 3.4-10.8 11-Xzu-57840:22 METABOLIC PANEL, Comments: PATIENT WAS FASTINGPERFORMED BY: CB [facility] Gcpubh7905 [facility] [id number] BY: [facility] [address] [id number] [facility] ([address]) ALT (SGPT) 12 [iU]/L (Normal) Range: 0-44 [...] Glucose, Serum 100 mg/dL (Abnormal) Range: 65-99 04-Wvg-97847:52 CBC W/Diff, Automated Comments: [facility] Ehtbrdckef7036 [place], [place], [address] Absolute Lymph 1.73 {X10_3/ul} (Normal) Range: 0.83-4.51 [...] 4.6-6.2 WBC 6.0 K/mm3 (Normal) Range: 4.4-11.0 07-Trf-72372:52 Comprehensive Metabolic Profil Comments: [facility] Zubyljjmnn0107 [place], [address] GAP 6 (Normal) Range: 5-15 CO2 26.0 [...] (Normal) Range: 70-110 :52 Hemoglobin A1c Comments: [facility] [address] [place], [place], [address] HGB A1C 5.6 % (Normal) Range: 4.2-6.3 :52 Lipid Profile Comments: [facility] [address] [place], [address] VLDL 21 mg/dL (Normal) Range: [...] High Risk :52 Microalb:Creat Ratio,Random UR Comments: [facility] [address] [place], [place], [address] MALB:CREAT 9.1 {mg/g_CRE} (Normal) MICROALBUMIN,UR 9.0 mg/L (Normal) UR CREAT 99.50 mg/dL (Normal) :52 PSA,Total - Annual Screen Comments: [facility] [address] [place], [address] PSA,TOT SCREEN 0.51 ng/mL (Normal) Range: 0.00-4.00 Comments: This test was performed using the TPSA assay method for [employer] chemistry system. Values obtained with differentassay methods cannot be used interchangably.When changing PSA assays in the course of monitoring apatient, additional sequential testing should be carriedout to confirm baseline values. COLON BIOPSY (CHOOSE See Note (Normal) Comments: [facility] Gspqpshrob6[address] [place], [address] :45 SITE) Comments: Patient: YUMIKO LANDRUM : 1950 (64/M) Acct Num: [id number] Phys: ViktorErnestine belletracy Unit Num: [id number] Loc: LABSPEC Specimen: [id number] Received: 09/11/151646 Spec Type: C ZONIA BX [...] in one cassette. / IRON:momo 09/11 TC:1 CPT:11301 x2 HEADER OPERATION: Colonoscopy with biopsy PRE-OP DIAGNOSIS: Screening/polyp TISSUE SUBMITTED: A - Polyp cecum, R/O adenoma, B - Polyp sigmoid, R/O adenoma MICROSCOP IC DESCRIPTION Slides are reviewed. MICROSCOPIC DIAGNOSIS A. Polyp cecum, biopsy: Fragments of tubular adenoma. B. Polyp sigmoid, biopsy: Fragments of tubular adenoma. IRON:momo 09/15/15 Signed Pamella Son 09/15/15 <signature on file> 86-Nvm-851311:37 CBC W/Diff, Automated Comments: [facility] Yesnxnxydh[address] [place], [place], [address] ; noon-emergent till apt Absolute Lymph 1.39 [...] 4.6-6.2 WBC 6.5 K/mm3 (Normal) Range: 4.4-11.0 01-Hfo-095855:37 Comprehensive Metabolic Profil Comments: [facility] Ksloyjmnem5[address] [place], [place], [address] GAP 6 (Normal) Range: 5-15 CO2 27.0 [...] <126 mg/dLsuggests IMPAIRED HOMEOSTASIS per A.D.A. criteria. 88-Gsj-710156:37 Hemoglobin A1c Comments: [facility] Ecjdjufmde0205 [facility] [place], [address] HGB A1C 5.6 % (Normal) Range: 4.2-6.3 61-Zyo-891814:37 Lipid Profile Comments: [facility] [address] [facility] [place] [place], [address] VLDL 17 mg/dL (Normal) Range: [...] 200-240 mg/dL Borderline >240 mg/dL High Risk 8-Vdv-570159:12 Factor II, DNA Analysis Comments: [facility] (refer to report for specific site)refer to report for address and phone number COMMENT Comment (Normal) Comments: Genetic Counselors are available for health care providersto discuss results at [phone] ([phone]).Methodology:DNA analysis of the Factor II gene was performed by PCRamplification followed by restric tion analysis. Thediagnostic sensitivity is >99% for both. All the tests mustbe combined with clinical information for the most accurateinterpretation. Molecular-based testing is highly accurate,but as in any laboratory test, diagnostic errors may occur.Matthewt SR, et al. Blood. 1996; 88:7285-0718.Diallo EA. Circulation. 2004; 110:e15-e18.Bobby I, et al. Arterioscler Thromb Vasc Biol. 1999;19:700 -703.Lance Shea, PhDRuthie Cooper, PhDAnahy Delgado, Lorena Beal, Xiomara Easley, PhDKelly Benjamin, PhDPerformed at: TG - [facility] DSF5711 [place], [place] [id number] villa: Vilma Butterfield MD, Phone: [phone] FACTOR II,DNA Comment (Normal) Comments: NEGATIVENo mutation identified.Comment:A point mutation ([id number]) in the factor II (prothrombin)gene is the [...] individual mutations. This assaydetects only the prothrombin X91937Q mutation and doesnot measure genetic abnormalities elsewhere i n thegenome. Other thrombotic risk factors may be pursuedthrough systematic clinical laboratory analysis. Thesefactors include the R506Q ([place]) mutation in the Factor Vgene, plasma homocysteine levels , as well as testing fordeficiencies of antithrombin III, protein C and protein S. 54-Omv-69610:42 Miscellaneous Comments: Comments: [id number],PLASMA,[facility](s) Ordered: [id number],PLASMA,[facility] [address]or[address] [place], [address] Lab Procedure MISC Comments: TEST RESULT UNITS REFERENCE INTERVALAntithrombin III, Func/ImmunolAntithrombin Activity 97 % 75 - 135Antithrombin Antigen 97 % 75 - 130 LAB (Normal) TESTING PERFORMED AT [facility]. ORIGINAL REPORT ON FILE IN LAB CONTAINS ADDITIONAL TEST SITE INFORMATION. TEST 1 Throm 15.9 Comments: [facility] (refer to report for specific site)refer to report for address and phone number 9 bin {sec} Range: 0.0-20.0 - Time (Normal) Comments: Performed at: BN - [address] [id number] Director: Joseph Velez MD, Phone: [phone] F e b - 2 0 1 6 9 : 4 2 :34 CBC W/Diff, Automated Comments: [facility] [address]hw[address] [place], [place], [address] Absolute Lymph 1.34 {X10_3/ul} (Normal) Range: 0.83-4.51 [...] 4.6-6.2 WBC 5.3 K/mm3 (Normal) Range: 4.4-11.0 42-Sff-84282:34 Comprehensive Comments: Comments: [id number],Gabriela [facility] Ahkpmthibo[address] [place], [address] ; apt today Metabolic Profil GAP 8 [...] for health careproviders to discuss results at [phone] ([phone]).Methodology:DNA analysis of the Factor V gene was [...] PhDBette lugo, PhDKelly Benjamin, PhDPerformed at: - LabCoMicheal Ville 139[address] [place], [place] [address]Use Director: Joseph Velez MD, Phone: [phone] at: [facility] BZD9366 [place], [place] [id number] Director: Vilma Butterfield MD, Phone: [phone] FACTOR V LEIDEN Comment (Normal) Comments: Result: [...] in the workup for venous thrombosis include [id number] mutation in the factor II (prothrombin) gene,protein S and C deficiency, and antithrombin deficiencies.Anticardiolipin antibody and lupus anticoagu lant analysismay be appropriate for certain patients, as well ashomocysteine levels.Contact your local [facility] for information on how to orderadditional testing if desired. :34 Hemoglobin A1c Comments: [facility] [address]mlf[address] [place], [place], [address] HGB A1C 5.6 % (Normal) Range: 4.2-6.3 :34 Lipid Profile Comments: Comments: [id number],SPENCERKettering [facility] [id number] [place], [address] VLDL 17 mg/dL (Normal) Range: [...] 200-240 mg/dL Borderline >240 mg/dL High Risk [id number] Miscellaneous Lab Comments: Comments: [id number],BLUEANDRED,FZTest(s) Ordered: [id number] BLAKE F[facility]WPro[facility] [address] [place], [address] Procedure MISC Comments: TEST RESULT UNITS REFERENCE [...] anticoagulant is not de tected. aCL and I9HJ2qkvprezelz are normal.ANTIPHOSPHOLIPID SYNDROME ASSESSMENT SUMMARY-No evidence of a lupus anticoagulant, B2GP1 or aCLantibodies. As antibody titers may fluctuate with time,repeat te sting may be indicated if antiphospholipid syndromeis suspected.ANTIPHOSPHOLIPID SYNDROME ASSESSMENT DEFINITIONS-aCL- anticardiolipin (antibodies to cardiolipin); J7WG0-ygqwzyhrau to Beta-2 Glycoprotein 1; LA- lupus anticoagulant(which is identified with the dRVVT and/or hexagonalphospholipid neutralization assays); aPL- antibodies toprotein/phospholipid complexes such as LA, aCL, and W5LG8vwlhyowqsp; APS- antiphospholipid syndrome; DTI-directthrombin inhibitors.-COMMUNITY THEATER ACTOR:For questions regarding panel interpretation, please contactHalle Arrington [...] Mathews et al. J Thromb Haemost. 2009; 7(10):0206-9409.(2) Tyrone Lugo et al. J Thromb H aemost. 2006;4(2):295-306.(3) Keith DA et al. Blood. 2007;110(9): 1339-0709. TESTING PERFORMED AT [facility]. ORIGINAL REPORT ON FILE IN LAB CONTA [...] Range: 58-150 :54 CBC W/Diff, Automated Comments: [facility] [address] [place], [place], [id number] Absolute Lymph 1.61 {X10_3/ul} (Normal) Range: 0.83-4.51 [...] 4.6-6.2 WBC 7.1 K/mm3 (Normal) Range: 4.4-11.0 42-Jqv-393732:54 Comprehensive Metabolic Profil Comments: [facility] [address] [place], [address] GAP 7 (Normal) Range: 5-15 CO2 26.0 [...] 7-18 GLU 98 mg/dL (Normal) Range: 70-110 87-Fhy-237032:54 Lipid Profile Comments: [facility] [address] [place], [address] ; apt today VLDL 19 [...] 21-Sep-20148:55 Comprehensive Metabolic Profil Comments: Test performed at:[facility] Jlbzbtxjoj0643 [facility] [place] [address] GAP 7 (Normal) Range: 5-15 [...] Comments: Please note revised CREATININE reference range zamcqrkvz59/22/2015. BUN 15 mg/dL (Normal) Range: 7-18 GLU 103 mg/dL (Normal) Range: 70-110 :55 Hemoglobin A1c Comments: Test performed at:[facility] [address] [place] [address] HGB A1C 6.0 % (Normal) Range: 4.2-6.3 :55 Lipid Profile Comments: Test performed at:[facility] [address] [place] [address] VLDL 17 mg/dL (Normal) Range: 5-40 LDL [...] generated due to demographicSpecimen Comment: updates.Test performed at:[facility] [place] [address] dsDNA AB 12 {IU/mL} (Abnormal) Range: 0-9 Comments: Negative <5 Equivocal 5 - 9 Positive >9; ADDENDA: non-emergent because has apt today to discuss. 14-Dsp-850347:49 ANTINUCLEAR ANTIBODIES DIRECT Comments: Test performed at:[facility] [address] [place] [address] JOHN-DIRECT Positive (Abnormal) Comments: Performed at: [facility] Lab[address] [id number] Director: Reno Yanes PhD, Phone: [phone] 22-Eyz-276886:49 CBC W/Diff, Automated Comments: Test performed at:[facility] [address]uk[address]20 [facility]. [place] [address] Absolute Lymph 1.22 {X10_3/ul} (Normal) Range: 0.83-4.51 [...] :49 Comprehensive Metabolic Profil Comments: Test performed at:[facility] Wfnhiscgcj1277 [facility] [place] [address] GAP 6 (Normal) Range: 5-15 [...] Range: 70-110 :49 CRP Comments: Test performed at:[facility] Zwsssoixvy6638 [facility] [place] [address] C-REACTIVE PROT < 2.90 mg/L (Normal) Range: 0.0-3.0 Comments: C-Reactive Protein (CRP) provides useful information for thediagnosis, therapy and monitoring of inflammatory processesand associated diseases. For the evaluation of Relative Riskfor Cardiovascular Dise ase, a High Sensitivity CRP (HSCRP)should be ordered. 34-Osk-883028:49 Culture, Urine Comments: Test performed at:[facility] [address] [place] [address] CUUR See Note (Normal) Comments: Urine CultureCulture exhibits no growth.; ADDENDA: Pt has apt today, will discuss then 39-Jbn-392957:49 Erythrocyte Sed Rate Comments: Test performed at:[facility] [address] [place] [address] SED RATE 21 mm/h (Abnormal) Range: 0-20 64-Xrb-586505:49 Hemoglobin A1c Comments: Test performed at:[facility] [address] [place] [address] HGB A1C 5.8 % (Normal) Range: 4.2-6.3 93-Mzo-450401:49 Lipid Profile Comments: Test performed at:[facility] [address] [place] [address] VLDL 8 mg/dL (Normal) Range: [...] 200-240 mg/dL Borderline >240 mg/dL High Risk 51-Gam-459990:49 Microalb:Creat Ratio,Random UR Comments: Test performed at:[facility] [address] [place] [address] MALB:CREAT 12.2 {mg/g_CRE} (Normal) MICROALBUMIN,UR 17.2 mg/L (Normal) UR CREAT 140.0 mg/dL (Normal) :49 PSA,Total - Annual Screen Comments: Test performed at:[facility] [address] [place] [address] PSA,TOT SCREEN 0.47 ng/mL (Normal) Range: 0.00-4.00 Comments: This test was performed using the TPSA assay method for [employer] chemistry system. Values obtained with differentassay methods cannot be used interchangably.When changing PSA assays in the course of monitoring apatient, additional sequential testing should be carriedout to confirm baseline values. :49 Thyroid Stim Hormone (TSH) Comments: Test performed at:[facility] [address] [place], [place] [address] TSH 1.60 {uIU/mL} (Normal) Range: 0.358-3.74 :49 Urinalysis, Complete Comments: How was Urine Obtained? Urine, RandomTest performed at:[facility] [address] [place], [place] [address] MUCUS, URINE 0 SEEN {/hpf} (Normal) BACTERIA [...] How was Urine Obtained? Urine, RandomTest performed at:[facility] Kk[address]iwnuf4068 [facility] [place] [address] MUCUS, URINE 2+ {/hpf} (Normal) [...] (Normal) CLARITY Clear (Normal) COLOR Yellow (Normal) 77-Sea-236368:07 Comprehensive Metabolic Profil Comments: Test performed at:[facility] [address] [facility]. [place], [place] [address] GAP 6 (Normal) Range: 5-15 CO2 28.0 [...] 7-18 GLU 108 mg/dL (Normal) Range: 70-110 14-Gtw-221785:07 CPK Total, Creatine Kinase Comments: Test performed at:[facility] [address] [place] [address] CPK TOTAL 91 U/L (Normal) Range: 39-308 34-Jex-942962:56 Rapid Flu (26792 x 2) Influenza A Ag negative (Normal) 0-Egp-695667:28 URINE WARREN CULTURE-MASSIEL COL Comments: PATIENT NOT FASTINGPERFORMED BY: [facility] Wyztdq1067 [facility] [id number] Information: SRC:UR T84415 COUNT (40674) Result 1 ECV (Abnormal) Comments: Escherichia coli, [...] R Urine Final report Culture,Comprehensi (Abnormal) ve 1-Eby-882105:58 Urinalysis, Office (72149) UA - LEUKOCYTE ESTERASE Small (Normal) UA - NITRITE Negative (Normal) URINE UROBILINGN MASSIEL TIMED 2 mg/dL (Normal) UA - PROTEIN 30 mg/dL (Normal) UA - PH 6.0 (Normal) Comments: 5.5 UA - BLOOD Hemolyzed Small (Normal) UA - SPECIFIC GRAVITY 1.030 (Abnormal) UA - KETONES Negative mg/dL (Normal) UA - BILIRUBIN Small (Normal) UA - GLUCOSE Negative (Normal) 4-Vls-172116:41 URINE WARREN CULTURE-MASSIEL COL Comments: PATIENT NOT FASTINGPERFORMED BY: [facility] SystemGoxily7827 [facility] [id number] Information: SRC: URINE COUNT (50995) Result 1 ECV (Abnormal) Comments: Escherichia coli, [...] R Urine Final report Culture,Comprehensi (Abnormal) ve 9-Lhi-661763:27 Urinalysis, Office (13712) UA - LEUKOCYTE ESTERASE Trace (Normal) UA - NITRITE Negative (Normal) URINE UROBILINGN MASSIEL TIMED 2 mg/dL (Normal) UA - PROTEIN Negative mg/dL (Normal) UA - PH 6.0 (Normal) UA - BLOOD Negative (Normal) UA - SPECIFIC GRAVITY 1.010 (Normal) UA - KETONES Negative mg/dL (Normal) UA - BILIRUBIN Negative (Normal) UA - GLUCOSE Negative (Normal) 9-Phx-391599:30 HgA1C , Office (07327) HgA1C , Office 5.7 % (Normal) Range: 4.6 - 7.1 5-Zlo-610754:10 URINE WARREN CULTURE-MASSIEL COL Comments: PATIENT NOT FASTINGPERFORMED BY: [facility] SystemBxyfpu7477 [facility] [id number] Information: SRC:UR [id number] COUNT (51430) Result 1 NG36 (Normal) Comments: No growth in 36 - 48 hours. Urine Culture,Comprehensive Final report (Normal) 6-Pby-835671:58 CBCD PATHR Reviewed (Normal) RBCM NORM C+C [...] 4.6-6.2 WBC 5.2 K/mm3 (Normal) Range: 4.4-11.0 7-Zsf-319953:58 CMP GAP 7 (Normal) Range: 5-15 CO2 [...] CHOL 155 mg/dL (Normal) Comments: <200 mg/dL Oxtfrgvrb346-059 mg/dL Borderline>240 mg/dL High Risk TRIG 121 [...] (Normal) UCLAR Clear (Normal) UCOL Yellow (Normal) 66-Iwt-553767:20 CUUR URC See Note (Normal) Comments: ESBL+ [...] >=320 R (NF) indicates non-formulary drug at [facility]. Approval by Infectious DiseaseSpecialist required before non-formulary drugs may beordered and/or dispensed. 52-Idu-510995:20 UA Comments: How was Urine Obtained? CLEAN CATCH ANGE 500 /ul (Abnormal) MICA Negative (Normal) UOB 25 /ul (Abnormal) LEESA 6.0 (Normal) Range: 5.0 - 8.0 uPROTU 30 mg/dL (Abnormal) UROBU 1 mg/dL (Abnormal) KETU Negative mg/dL (Normal) SGU 1.015 (Normal) Range: 1.002-1.030 BILIU Negative mg/dL (Normal) GLUR Normal mg/dL (Normal) UCLAR Cloudy (Normal) UCOL Yellow (Normal) 69-Tup-198457:27 A1C 5.6 % (Normal) Range: 4.2-6.3 52-Wni-554994:27 B12 574 pg/mL (Normal) Range: 211-911 33-Bii-171890:27 CBC MPV 8.8 fL (Normal) Range: 6.2-12.0 [...] 4.6-6.2 WBC 6.4 K/mm3 (Normal) Range: 4.4-11.0 26-Mqj-395776:27 CUUR URC Culture exhibits no growth. (Normal) 23-Ipe-454956:27 EBGM EBNA 81.6 U/mL (Abnormal) Range: 0.0-17.9 Comments: Negative <18.0Equivocal 18.0 - 21.9Positive >21.9 tEBINT Comment (Normal) Comments: EBV Interpretation ChartInterpretation EBV-IgM VCA-IgG EBNA-IgG EA(D)-IgGEBV Seronegative - - - -Early Phase + - - -Acute Primary + + - +or-InfectionConvalescence/Past - + + +or-InfectionReactivated +or- + + +Infection+ Antibody Present - Antibody Absen tPerformed at: [facility] Lab[address] [id number] Director: Melquiades Hector MD, Phone: [phone] EBEAG <9.0 U/mL (Normal) Range: 0.0-8.9 Comments: [...] 4.6-6.2 WBC 6.0 K/mm3 (Normal) Range: 4.4-11.0 7-Bxg-186204:36 CKMB Comments: Serial Specimen #1, #2 or #3? 1'TROP' Serial specimen #1, #2, #3, or #4: 1 CPKMB 1.6 ng/mL (Normal) Range: 0.0-5.0 Comments: CK-MB and RI Interpretation MB Relative IndexNon-AMI <or= 5 NAIndeterminate > 5 <or= 4AMI > 5 > 4 CPK 167 U/L (Normal) Range: 39-308 8-Otr-944943:36 TROP < 0.02 ng/mL (Normal) Comments: Serial Specimen #1, #2 or #3? 1'TROP' Serial specimen #1, #2, #3, or #4: 1 Comments: TROPONIN-I EXPECTED VALUES <0.05 NEGATIVE0.06 - 0.59 AT RISK OF HI> OR = 0.60 SUGGEST HI :47 HgA1C , Office (40132) HgA1C , Office 6.3 % (Normal) Range: [...] CHOL 147 mg/dL (Normal) Comments: <200 mg/dL Oqajrcwai168-489 mg/dL Borderline>240 mg/dL High Risk :55 Rapid Flu (35794 x 2) Comments: neg Influenza A Ag negative (Normal) 7-Nvb-151333:02 FECAL OCCULT- Tubes sent home (84193) FECAL OCCULT HGB ASSAY, QUAL, 1-3 negative (Normal) [facility] :39 B12 510 pg/mL (Normal) Range: 211-911 [...] Range: 0-100 Comments: Performed at: [facility] Lab[address] Director: Melquiades Hector MD, Phone: [phone] IMM 55 mg/dL (Normal) Range: 40-230 DEBBY 182 mg/dL (Normal) Range: 91-414 IMG 788 mg/dL (Normal) Range: 700-1600 :39 LDH 190 U/L (Normal) Comments: Serial Specimen #1, #2 or #3? 1Is Patient Taking Vitamins or Folic Acid Supplements? N Range: 84-246 :39 PROEL Comments: Is Patient Fasting? Y [id number] Comment (Normal) Comments: Protein electrophoresis scan will follow via computer,mail, or temple meat cutter delivery. tPROELAG 1.6 (Normal) Range: 0.7-2.0 tPROELIN [...] Supplements? N Range: 250-450 :56 CULTURE, SPUTUM (95540) Comments: PATIENT NOT FASTINGPERFORMED BY: [facility] Lncutx0689 [facility] [id number] Information: SRC:[facility] [id number] Result 1 RRF (Normal) Comments: Routine respiratory ashkan Lower Respiratory Culture Final report (Normal) :32 HgA1C , Office (42928) HgA1C , Office 5.9 % (Normal) Range: 4.6 - 7.1 :32 Blood Glucose , Office (54494) Blood Glucose , Office 90 (Normal) :51 [...] 4.6-6.2 WBC 7.2 {k/mm3} (Normal) Range: 4.4-11.0 97-Vft-657946:51 CMP GAP 9 (Normal) Range: 5-15 CO2 [...] CHOL 149 mg/dL (Normal) Comments: <200 mg/dL Fpwsppdrw815-141 mg/dL Borderline>240 mg/dL High Risk :51 PSA 0.51 ng/mL (Normal) Range: 0.00-4.00 Comments: This test was performed using the TPSA assay method for the[employer] chemistry system. Values obtained with differentassay methods cannot be used interchangably.When changing PSA assays in the course of monitoring apatient, additional sequential testing should be carriedout to confirm baseline values. 34-Uto-056476:59 MISC (Normal) Comments: TEST RESULT LIMITSAntinuclear Antibodies, [...] 4.6-6.2 WBC 7.8 {k/mm3} (Normal) Range: 4.4-11.0 47-Ymu-386676:32 CMP GAP 10 (Normal) Range: 5-15 CO2 [...] CHOL 154 mg/dL (Normal) Comments: <200 mg/dL Yfwdflkcw982-327 mg/dL Borderline>240 mg/dL High Risk HDL 64 [...] TSH 1.77 {uIU/mL} (Normal) Range: 0.358-3.74 :32 [facility] UMUC 0 SEEN {/hpf} (Normal) UBAC [...] (Normal) UCLAR Clear (Normal) UCOL Yellow (Normal) 33-Qey-152872:11 AFBCS tAFBC See Note Comments: TESTING PERFORMED AT [facility]. ORIGINAL REPORT ONFILE IN LAB CONTAINS ADDITIONAL TEST SITE INFORMATION. (Normal) CULTURE, ACID FAST FINAL CULTURE REPORT TO FOLLOW IN 6 WEEKS. tAFBSF See Note Comments: TESTING PERFORMED AT [facility]. ORIGINAL REPORT ONFILE IN LAB CONTAINS ADDITIONAL TEST SITE INFORMATION. (Normal) ACID FAST BACILLUS SMEARAcid Fast Smear from Concentrated Specimen :Negative 73-Klg-117778:11 CUFST FUNST See Note Comments: TESTING PERFORMED AT [facility]. ORIGINAL REPORT ONFILE IN LAB CONTAINS ADDITIONAL TEST SITE INFORMATION. (Normal) FUNGUS STAIN No yeast or mold observed. CUF See Note Comments: TESTING PERFORMED AT [facility]. ORIGINAL REPORT ONFILE IN LAB CONTAINS ADDITIONAL TEST SITE INFORMATION. (Normal) CULTURE, FUNGUSNO YEAST OR MOLD ISOLATED AFTER 4 WEEKS. 30-Lws-939699:11 CUSP RESPC See Note (Normal) Comments: No [...] BACILLUS SMEARNO ACID-FAST BACILLI OBSERVED ON SMEAR. 55-Ocw-143471:23 CUFST FUNST See Note Comments: TESTING PERFORMED AT [facility]. ORIGINAL REPORT ONFILE IN LAB CONTAINS ADDITIONAL TEST SITE INFORMATION. (Normal) FUNGUS STAIN No yeast or mold observed. CUF See Note Comments: TESTING PERFORMED AT [facility]. ORIGINAL REPORT ONFILE IN LAB CONTAINS ADDITIONAL TEST SITE INFORMATION. (Normal) CULTURE, FUNGUSNO YEAST OR MOLD ISOLATED AFTER 4 WEEKS. 44-Yox-617445:21 AFBCS tAFBC See Note Comments: TESTING PERFORMED AT [facility]. ORIGINAL REPORT ONFILE IN LAB CONTAINS ADDITIONAL TEST SITE INFORMATION. (Normal) CULTURE, ACID FAST FINAL CULTURE REPORT TO FOLLOW IN 6 WEEKS. Tirso See Note Comments: TESTING PERFORMED AT [facility]. ORIGINAL REPORT ONFILE IN LAB CONTAINS ADDITIONAL TEST SITE INFORMATION. (Normal) ACID FAST BACILLUS SMEARAcid Fast Smear from Concentrated Specimen :Negative 21-Xsf-634673:21 CUFST FUNST See Note Comments: TESTING PERFORMED AT [facility]. ORIGINAL REPORT ONFILE IN LAB CONTAINS ADDITIONAL TEST SITE INFORMATION. (Normal) FUNGUS STAIN YEAST OBSERVED CUF See Note Comments: [facility] ORIGINAL REPORT ONFILE IN LAB CONTAINS ADDITIONAL TEST SITE INFORMATION. (Normal) CULTURE, FUNGUSNO YEAST OR MOLD ISOLATED AFTER 4 WEEKS. 16 AFBSTN SEE Comments: Specimen submitted to Anatomical Pathology Department [facility]. - PATHOLOGY ay REPORT -2 (Normal) 32 2: 00 16 AFBSTN SEE Comments: PATIENT BROUGHT SPECIMEN IN ON 07/11/12. - PATHOLOGY Comments: Specimen submitted to Anatomical Pathology Department fortesting. ay REPORT -2 (Normal) 30 :0 0 12 AFBSTN SEE Comments: PATIENT BROUGHT SPECIMEN IN ON 07/11/12 - PATHOLOGY Comments: Specimen submitted to Anatomical Pathology Department [facility]. ay REPORT -2 (Normal) 39 :0 0 53-Fok-433554:05 WARREN CULTURE-OTHER (99322) Comments: PATIENT NOT FASTINGPERFORMED BY: [facility] Btqdjt3914 [facility] [id number] Information: SRC: THROAT Result 1 RRF (Normal) Comments: Routine respiratory ashkan Upper Respiratory Culture Final report (Normal) 14-Xqo-183046:23 Rapid Strep Test, Office (81249) Rapid Strep Test, Office Negative (Normal) 6-Hzl-328218:15 CBCMD RBCM NORM C+C {NORMAL} (Normal) PE [...] 4.6-6.2 WBC 8.3 K/mm3 (Normal) Range: 4.4-11.0 9-Byt-476952:15 CMP GAP 10 (Normal) Range: 5-15 CO2 [...] 7-18 GLU 81 mg/dL (Normal) Range: 70-110 3-Gqu-905761:15 LIPID VLDL 12 mg/dL (Normal) Range: 5-40 [...] Alvarado M.D.January 27, 2012 at 2:39:03 PM [id number] Signed GP/GP If you are the refe rring physician and would like to consult with theradiologist who provided this interpretation, please contact Itzel Linares at [phone]. If this radiologist is unavailable, youwill be dir ected to another radiologist to assist. If you are a patient with a question regarding this report, pleasecontactyour referring physician directly. Professional Interpretation Provided By: [employer], Phone , These documents contain legally protected [...] Schwarz D.O.January 26, 2012 at 8:55:02 PM [id number] Signed BE/B E If you are the referring physician and would like to consult with theradiologist who provided this interpretation, please contact Yogi Schwarz D.O. at [phone]. If this radiologist is unavailable, yo u will bedirected to another radiologist to assist. If you are a patient with a question regarding this report, pleasecontactyour referring physician directly. Professional Interpretation Provided By: [employer], Phone , These documents contain legally protected [...] 01/26/12 2100 Sign by: Yogi Schwarz MD 65-Dek-976321:13 CUSP RESPC See Note (Normal) Comments: No [...] GRAM POSITIVE COCCI IN CHAINS AND CLUSTERS 31-Ior-258616:56 HgA1C , Office (44530) HgA1C , Office 6.1 % (Normal) Range: 4.6 - 7.1 52-Fls-318217:56 Blood Glucose , Office (37380) Blood Glucose , Office 116 (Normal) : [...] :01 TSH 1.98 {uIU/mL} (Normal) Range: 0.358-3.74 40-Fdy-791506:25 CMP GAP 7 (Normal) Range: 5-15 CO2 [...] performed using the TPSA assay method for the[employer] chemistry system. Values obtained with differentassay methods cannot be used interchangably.When ch anging PSA assays in the course of monitoring apatient, additional sequential testing should be carriedout to confirm baseline values. :25 [facility] UMUC 0 SEEN {/hpf} (Normal) UBAC [...] UCOL YELLOW (Normal) :44 HgA1C , Office (19986) HgA1C , Office 6.3 % (Normal) Range: 4.6 - 7.1 :44 Blood Glucose , Office (87052) Blood Glucose , Office 114 (Normal) :13 HgA1C , Office (73843) HgA1C , Office 6.2 % (Normal) Range: 4.6 - 7.1 :13 Blood Glucose , Office (88815) Blood Glucose , Office 100 (Normal) :55 HgA1C , Office (37639) HgA1C , Office 5.8 % (Normal) Range: 4.6 - 7.1 :55 Blood Glucose , Office (62683) Blood Glucose , Office 85 (Normal) :51 WARREN CULTURE-OTHER (65090) Comments: PATIENT NOT FASTINGPERFORMED BY: [facility] SystemVagbpe8011 [facility] [id number] Information: SRC:THRT [id number] Result 1 Yeast isolated. (Normal) Comments: Heavy growthRequest for further identification must be madewithin 1 week. Upper Respiratory Culture Final report (Normal) :14 Rapid Strep Test, Office (24438) Rapid Strep Test, Office Negative (Normal) :24 [...] serialsampling is recomme nded. TESTING PERFORMED AT [place]. ORIGINAL REPORT ON FILE IN LAB CONTAINS [...] cells for the productionof interferon gamma.Performed at: [facility] Lab[address] [id number] Director: Joseph Velez MD, Phone: [phone] QFT AG - NIL 0 {IU/mL} (Normal) [...] >240 mg/dL High Risk :03 VIT D,25 13584 38.0 ng/mL (Normal) Comments: appt 03-08-10 Range: 32.0-100.0 Comments: Effective January 11, 2011 Vitamin D, 25-Hydroxy reference intervals will be changing to 30-100. .Recent studies consider the lower li chilo of 32.0 ng/mL to be athreshold for optimal health.Mark LUDWIG. J Nutr. 2004;135(2):317-22.Performed at: [facility] Lab[address] Director: Lakshmi Pino MD, Phone: [phone] VITAMIN B12 696 pg/mL (Normal) Range: 254-1320 Comments: There is a low frequency possibility that high titers ofintrinsic blocking antibodies may not be completely inactivated during the reaction pretreatment stepof this testing method. If test results are i n conflictwith the clinical diagnosis, patient should be testedfor the presence of intrinsic factor blocking antibodies. 77-Jfa-896863:05 Rapid Strep Test, Office (99271) Rapid Strep Test, Office Negative (Normal) :00 CULTURE, THROAT See Note (Normal) Comments: Normal throat ashkan isolated. No beta-hemolyticstreptococcus isolated. 44-Qyk-70114:00 CHEST WITHOUT CONTRAST Radiology Report See Note [...] 10/11/10 0244 Sign by: Clarke Butt MD 69-Pdz-504237:58 GALLBLADDER Radiology Report See Note (Normal) Comments: [...] 10/08/10 1402 Sign by: Jake Alvarado MD 99-Kme-28309:00 CULTURE, URINE URINE CULTURE See Note {CFU/mL} (Normal) Comments: COLONY COUNT <1000 ORGANISM 1: MIXED GRAM POSITIVE ORGANISMS 81-Plj-389821:19 Urinalysis, Office (80355) UA - BILIRUBIN Negative (Normal) UA - BLOOD Non Hemolyzed Trace (Normal) UA - GLUCOSE Negative (Normal) UA - KETONES Negative mg/dL (Normal) UA - LEUKOCYTE ESTERASE Negative (Normal) UA - NITRITE Negative (Normal) UA - PH 7.0 (Normal) UA - PROTEIN Negative mg/dL (Normal) UA - SPECIFIC GRAVITY 1.010 (Normal) URINE UROBILINGN MASSIEL TIMED Normal mg/dL (Normal) 51-Xqt-92192:00 ABDOMEN/PELVIS WITHOUT CONT Radiology Report See Note [...] on 09/16/101715 Sign by: Cosmo Mahmood MD 30-Hbo-621532:11 HgA1C , Office (40109) HgA1C , Office 6.2 % (Normal) Range: 4.6 - 7.1 :11 Blood Glucose , Office (24958) Blood Glucose , Office 90 (Normal) :28 [...] mg/dL High Risk :53 HgA1C , Office (79712) HgA1C , Office 6.4 % (Normal) Range: 4.6 - 7.1 :53 Blood Glucose , Office (10448) Blood Glucose , Office 108 (Normal) :39 CULTURE, URINE URINE CULTURE Culture exhibits no growth. (Normal) :54 Urinalysis, Office (67873) UA - BILIRUBIN Negative (Normal) UA - BLOOD Negative (Normal) UA - GLUCOSE Negative (Normal) UA - KETONES Negative mg/dL (Normal) UA - LEUKOCYTE ESTERASE Negative (Normal) UA - NITRITE Negative (Normal) UA - PH 7.0 (Normal) UA - PROTEIN Negative mg/dL (Normal) UA - SPECIFIC GRAVITY 1.010 (Normal) URINE UROBILINGN MASSIEL TIMED Normal mg/dL (Normal) :37 HgA1C , Office (95901) HgA1C , Office 6.1 % (Normal) Range: 4.6 - 7.1 :37 Blood Glucose , Office (07264) Blood Glucose , Office 96 (Normal) :46 [...] 4.6-6.2 WBC 7.5 K/mm3 (Normal) Range: 4.4-11.0 59-Ttq-368754:46 COMP METABOLIC GAP 7 (Normal) Range: 5-15 [...] (Normal) Range: 0.0-4.0 :22 HgA1C , Office (72167) HgA1C , Office 6.1 % (Normal) Range: 4.6 - 7.1 :22 Blood Glucose , Office (00025) Blood Glucose , Office 123 (Normal) :47 HgA1C , Office (08450) HgA1C , Office 6.3 % (Normal) Range: 4.6 - 7.1 :47 Blood Glucose , Office (91442) Blood Glucose , Office 103 (Normal) :05 [...] (Normal) GLU 107 mg/dL (Normal) Range: 70-110 93-Dui-68083:05 LIPID HDL 58 mg/dL (Normal) Comments: Reference RangeHDL <40 mg/dL Low HDL CholesterolHDL >or= 60 mg/dL High HDL Cholesterol LDL 77 mg/dL (Normal) Range: 0-130 VLDL 7 mg/dL (Normal) Range: 5-40 CHOL 142 mg/dL (Normal) Comments: <200 mg/dL Ackuemxif826-952 mg/dL Borderline>240 mg/dL High Risk TRIG 35 mg/dL (Normal) Comments: Serum Triglycerides Reference IntervalNormal <150 mg/dLBorderline high 150 - 199 mg/dLHigh 200 - 499 mg/ dLVery High > or = 500 mg/dL 3-Eiq-175273:24 HgA1C , Office (80803) HgA1C , Office 6.2 % (Normal) Range: 4.6 - 7.1 0-Cxs-650646:23 Blood Glucose , Office (19249) Blood Glucose , Office 96 (Normal) 66-Gff-015030:07 GASTRIC EMPTYING STUDY Radiology Report See Note (Normal) Comments: Exam Number: [id number] GASTRIC EMPTYING STUDY A gastric emptying study was performed. The patient ingested 1 mCi kbHp17i Sulfur colloid with oatmeal. HISTORYThis is a 58-year-old male patie nt with hist ory of bloating andgastroesophageal reflux. FINDINGSAt 1 hour, there is complete emptying of the stomach of theradiopharmaceutical. This is a normal study. IMPRESSIONNormal examination. There is no e vidence of gastric retention. Reported By: WILFREDO ALVARADO 9-Vdt-003036:33 HgA1C , Office (24821) HgA1C , Office 5.9 % (Normal) Range: 4.6 - 7.1 :33 Blood Glucose , Office (44267) Blood Glucose , Office 111 (Normal) :08 [...] Range: 0.0-4.0 :46 Blood Glucose , Office (09494) Blood Glucose , Office 156 (Normal) :46 HgA1C , Office (70718) HgA1C , Office 5.8 % (Normal) Range: 4.6 - 7.1 :12 HgA1C , Office (05842) Comments: done HgA1C , Office 5.8 % (Normal) Range: 4.6 - 7.1 :12 Blood Glucose , Office (57126) Comments: done Blood Glucose , Office 99 [...] mg/dL (Normal) Range: 200-370 Comments: Performed At: [address] [id number] Blood Glucose , Office (26284) Blood Glucose , Office 92 (Normal) :44 HgA1C , Office (44838) HgA1C , Office 5.7 % (Normal) Range: 4.6 - 7.1 :40 GLU GTT-2 HOUR 191 mg/dL (Abnormal) Comments: 2HR GTT GLU 2 HR GLU GTT-2 HOUR from 216:[id number]. Range: 70-120 :20 GLU GTT-1 HOUR 178 mg/dL (Abnormal) Comments: 2HR GTT GLU 1 HR GLU GTT-1 HOUR from 216:V40834X. Range: 120-170 :40 GLU GTT-30 min. 183 mg/dL (Abnormal) Comments: 2HR GTT GLU 1/2 HR GLU GTT-30 min. from 216:U12584K. Range: 110-170 :01 GLU GTT-FASTING 106 mg/dL (Normal) Comments: 2HR GTT FASTING GLU GTT-FASTING from 216:E55153U. Range: 70-110 Comments: GLUCOSE TOLERANCE TEST Reference [...] was performed using the TPSA method for theMindCare SolutionsThetaRay chemistry system.Values obtained with different assay methods [...] :12 TSH 1.38 {uIU/mL} (Normal) Range: 0.34-4.82 16-Lsa-35882:03 CHEST WITH CONTRAST Radiology Report See Note (Normal) Comments: Exam Number: [id number] CHEST CT WITH INTRAVENOUS CONTRAST. REASON FOR [...] No growth in 5 6:14 days. (Normal) 7-Fye-326329:14 CBCD,SMEAR DIFF BAND 1 % (Normal) Range: [...] 47-70 WBC 5.6 K/mm3 (Normal) Range: 4.4-11.0 0-Nsv-305739:14 COMP METABOLIC A/G 1.2 {RATIO} (Normal) Range: [...] T PROT 6.3 g/dL (Abnormal) Range: 6.4-8.2 74-Gxg-970323:19 EBVIgG/M 473935 EB-EA IgG 16649 79 AU/mL (Normal) Range: 0-99 Comments: Negative <100 Equivocal 100 - 120 Positive >120 EB-NAg [id number] 656 AU/mL (Abnormal) Range: 0-99 Comments: Negative <100 Equivocal 100 - 120 Positive >120 EB-VCA [id number] 2296 AU/mL (Abnormal) Range: 0-99 Comments: Negative <100 Equivocal 100 - 120 Positive >120 EB-VCA [id number] 9 AU/mL (Normal) Range: 0-99 Comments: Negative [...] Antibody Present - Antibody AbsentPerformed At: [facility] [place], [place] [id number] 85-Csf-249620:00 CULTURE, THROAT See Note (Normal) Comments: Normal throat ashkan isolated. No beta-hemolyticstreptococcus isolated. 78-Pbj-994899:35 Rapid Strep Test, Office (69955) Rapid Strep Test, Office Negative (Normal) :40 [...] 11/09/06 TC:5 REPORT SIGNED: JOSE MIGUEL SONSHI 11/10/0607-Nov-200676-Jsq-149334:55 ALDOLASE 2030 2.3 U/L (Normal) Range: 1.2-7.6 Comments: Performed At: [facility] [place], [place] [id number] At: [facility] [id number] 38-Yaj-530073:55 JOHN-D 102340 JOHN-DIRECT 9 U/mL (Normal) Range: 0-99 Comments: [...] 4.9 {IU/mL} (Normal) Range: 0.0-13.9 :55 TESTOST [id number] TESTOSTER %FREE 2.87 % (Normal) Range: 1.50-4.20 [...] Report See Note (Normal) Comments: Exam Number: [id number] TESTICULAR ULTRASOUND HISTORYTesticular swelling. High resolution real [...] Reported By: MAYELIN DE LA FUENTE M.D. 6-Vta-951198:45 HIP, MIN 2 VIEWS Radiology Report See Note (Normal) Comments: Exam Number: [id number] FIVE VIEW LUMBAR SPINE AP, LATERAL, BOTH [...] Report See Note (Normal) Comments: Exam Number: [id number] FIVE VIEW LUMBAR SPINE AP, LATERAL, BOTH [...] degenerative changes. Reported By: REMIGIO PURCELL M.D. 2-Rtf-578483:44 HIP, MIN 2 VIEWS Radiology Report See Note (Normal) Comments: Exam Number: [id number] FIVE VIEW LUMBAR SPINE AP, LATERAL, BOTH [...] degenerative changes. Reported By: REMIGIO PURCELL M.D. 87-Nnq-728304:43 CHEST, PA AND LATERAL Radiology Report See Note (Normal) Comments: Exam Number: [id number] PA AND LATERAL CHEST HISTORYShortness of breath. [...] 15, 2005. Reported By: EDVIN MARIE M.D. 00-Wqj-999439:25 ALDOLASE 2030 3.0 U/L (Normal) Range: 1.2-7.6 Comments: Performed At: [address] [id number] 02-Hxq-913819:25 JOHN-D 759320 JOHN-DIRECT 46 U/mL (Normal) Range: 0-99 Comments: Negative <100 Equivocal 100 - 120 Positive >120 24-Ape-319745:25 C-REACTIVE PROT 1.07 mg/L (Normal) Range: 0.0-6.0 Comments: Test performed using the Dimension C-Reactive ProteinExtended Range assay method. This assay meets the AHA/CDC 2003 recommendations fordetermining patients at high risk for cardiovasculardisease. Reference: High risk CRP >3.0 mg/L 97-Epm-216066:25 CBCD BASO% 0.4 % (Normal) Range: 0-1 [...] CPK TOTAL 172 U/L (Normal) Range: 35-232 85-Rpv-081470:25 ESR SED RATE 13 mm/h (Normal) Range: 0-20 69-Bxr-064049:25 RA LATEX 6502 5.2 {IU/mL} (Normal) Range: [...] morphology Planned Observations CBC W/AUTO DIFF WBC (03782)Indication: Hypertension, benign On: 95-Fmr-93234:51 Request METABOLIC PANEL, COMPREHENSIVE (53488)Indication: Hypertension, benign On: 68-Kip-04514:51 Request LIPID PANEL (71500)Indication: Other hyperlipidemia On: :50 Request CULTURE,FUNGUS W/STAIN 511026 (18320)Indication: Bronchiectasis On: :59 Request CULTURE, SPUTUM (30758)Indication: Moderate persistent asthma without complication On: :21 Request HGB A1C (75579)Indication: Abnormal glucose tolerance test On: :10 Request CBC with auto diff (90007)Indication: Abnormal glucose tolerance test On: :10 Request METABOLIC PANEL, COMPREHENSIVE (90511)Indication: Abnormal glucose tolerance test On: : Request LIPID PANEL (10396)Indication: Other hyperlipidemia On: :10 Request PSA (PROSTATE SPECIFIC ANTIGEN) (V76.44)Indication: Encounter for screening for malignant neoplasm of prostate (Renamed from Screening for prostate cancer) On: :09 Request METABOLIC PANEL, COMPREHENSIVE (13332)Indication: Essential hypertension On: 2-Bzp-977434:58 Request CBC with auto diff (07213)Indication: Hypertension, benign On: :53 Request METABOLIC PANEL, COMPREHENSIVE (09610)Indication: Abnormal glucose tolerance test On: :52 Request MICROALBUMIN: CREATININE RATIO (00749) AND (46671)Indication: Abnormal glucose tolerance test On: :52 Request HGB A1C (53314)Indication: Abnormal glucose tolerance test On: :52 Request LIPID PANEL (65633)Indication: Other hyperlipidemia On: :52 Request LIPID PANEL (52675)Indication: Other hyperlipidemia On: 4-Dro-773313:30 Request CBC W/AUTO DIFF WBC (99491)Indication: Hypertension, benign On: :29 Request METABOLIC PANEL, COMPREHENSIVE (79260)Indication: Hypertension, benign On: 8-Dlk-414907:29 Request IMMUNOGLOBULIN G (IgG) (06920)Indication: Abnormal blood chemistry On: 03-Zea-695731:02 Request Comments: PLEASE DRAW WITH OTHER LABS IN 2016 serum free light chains (30982)Indication: Abnormal blood chemistry On: 40 Request serum immunofixation (69623)Indication: Abnormal blood chemistry On: 40 Request PSA (PROSTATE SPECIFIC ANTIGEN) (V76.44)Indication: Encounter for screening for malignant neoplasm of prostate (Renamed from Screening for prostate cancer) On: 40 Request LIPID PANEL (59563)Indication: Other hyperlipidemia On: Request CBC with auto diff (35404)Indication: Abnormal glucose tolerance test On: :39 Request METABOLIC PANEL, COMPREHENSIVE (29027)Indication: Abnormal glucose tolerance test On: 39 Request MICROALBUMIN: CREATININE RATIO (40420) AND (06450)Indication: Abnormal glucose tolerance test On: 39 Request HGB A1C (08574)Indication: Abnormal glucose tolerance test On: 39 Request LIPID PANEL (51285)Indication: Other hyperlipidemia On: :58 Request urine immunofixation (58979)Indication: Abnormal blood chemistry On: :34 Request serum immunofixation (36262)Indication: Abnormal blood chemistry On: :34 Request MICROALBUMIN: CREATININE RATIO (78666) AND (41001)Indication: Abnormal glucose tolerance test On: :32 Request HGB A1C (46255)Indication: Abnormal glucose tolerance test On: :32 Request CBC W/AUTO DIFF WBC (04678)Indication: Hypertension, benign On: :30 Request METABOLIC PANEL, COMPREHENSIVE (94380)Indication: Hypertension, benign On: :30 Request LIPID PANEL (69630)Indication: Other hyperlipidemia On: :30 Request LIPOPROTEIN, BLD, BY NMR (95829)Indication: Other hyperlipidemia On: 70-Nsy-901393:14 Request CBC WITH MANUAL DIFF (13743)Indication: Essential hypertension On: 65-Elo-559741:14 Request Metabolic Panel, Comprehensive (11212)Indication: Essential hypertension On: 51-Kjl-999132:14 Request CBC W/AUTO DIFF WBC (59215)Indication: Abnormal glucose tolerance test On: : Request LIPOPROTEIN, BLD, BY NMR (97806)Indication: Other hyperlipidemia On: : Request METABOLIC PANEL, COMPREHENSIVE (63000)Indication: Abnormal glucose tolerance test On: : Request Anti-TPO Antibody (69009)Indication: Abnormal blood chemistry On: Request T4, FREE (THYROXINE) (49548)Indication: Abnormal blood chemistry On: Request T3, FREE (TRIDOTHYRONINE) (46096)Indication: Abnormal blood chemistry On: Request TSH (33063)Indication: Abnormal blood chemistry On: : Request P-ANCA & C-ANCA (ANCA PROFILE) 20190 x2 and 98963 l1Cdsvtrxdvz: Acute recurrent maxillary sinusitis On: Request JOHN (ANTINUCLEAR ANTIBODY) (59308)Indication: Abnormal blood chemistry On: : Request RHEUMATOID FACTOR-QUANT (52140)Indication: Abnormal blood chemistry On: : Request SED RATE ERYTHROCYTE (95783)Indication: Abnormal blood chemistry On: Request C-REACTIVE PROTEIN (25047)Indication: Abnormal blood chemistry On: :56 Request CBC with auto diff (99633)Indication: Hypertension, benign On: : Request MICROALBUMIN: CREATININE RATIO (70686) AND (19914)Indication: Abnormal glucose tolerance test On: : Request METABOLIC PANEL, COMPREHENSIVE (37909)Indication: Abnormal glucose tolerance test On: : Request HGB A1C (27451)Indication: Abnormal glucose tolerance test On: : Request METABOLIC PANEL, COMPREHENSIVE (43084)Indication: Hypertension, benign On: : Request LIPID PANEL (10964)Indication: Other hyperlipidemia On: : Request PSA (PROSTATE SPECIFIC ANTIGEN) (V76.44)Indication: Encounter for screening for malignant neoplasm of prostate (Renamed from Screening for prostate cancer) On: 81-Ffc-824216:59 Request Factor 2 (Prothrombin) Gene Mutation (77238)Indication: Other symptoms involving cardiovascular system On: 3-Nqy-737693:13 Request MICROALBUMIN: CREATININE RATIO (50142) AND (78294)Indication: Abnormal glucose tolerance test On: :53 Request HGB A1C (15557)Indication: Abnormal glucose tolerance test On: :53 Request LIPID PANEL (11145)Indication: Other hyperlipidemia On: :53 Request CBC W/AUTO DIFF WBC (20144)Indication: Hypertension, benign On: :53 Request METABOLIC PANEL, COMPREHENSIVE (36707)Indication: Hypertension, benign On: :53 Request CBC with auto diff (90374)Indication: Hypertension, benign On: 3-Rov-549892: Request METABOLIC PANEL, COMPREHENSIVE (64820)Indication: Hypertension, benign On: :25 Request LIPID PANEL (65175)Indication: Other hyperlipidemia On: 9-Mya-179923:25 Request Factor V Leiden (51842)Indication: Deep vein thrombosis of lower extremity On: 01-Emk-325647:24 Request CLOTTING FACTOR II (96563)Indication: Deep vein thrombosis of lower extremity On: 34-Vey-250890:24 Request ANTITHROMBIN III ACTIVTY (17905)Indication: Deep vein thrombosis of lower extremity On: 15-Wyl-541493:24 Request Antiphospholipid atb (96326)Indication: Deep vein thrombosis of lower extremity On: 87-Tfe-892386:24 Request Protein C Profile (76182)Indication: Deep vein thrombosis of lower extremity On: 53-Vcx-995148:24 Request Protein S Profile (53412)Indication: Deep vein thrombosis of lower extremity On: 35-Iym-604159:24 Request Hemoglobin Glyclated (HGB A1C) (59020)Indication: Abnormal glucose tolerance test On: 61-Cdm-858420:23 Request CBC W/AUTO DIFF WBC (91836)Indication: Abnormal glucose tolerance test On: 5-Tjs-699069:43 Request MICROALBUMIN: CREATININE RATIO (68759) AND (77566)Indication: Abnormal glucose tolerance test On: :43 Request METABOLIC PANEL, COMPREHENSIVE (30077)Indication: Abnormal glucose tolerance test On: :43 Request LIPID PANEL (23269)Indication: Other hyperlipidemia On: 43 Request DNA ANTIBODY-NATV/DBL ST (39450)Indication: Heart disease, unspecified On: 95-Qfn-672461:02 Request METABOLIC PANEL, COMPREHENSIVE (82009)Indication: Essential hypertension On: : Request LIPID PANEL (94128)Indication: Other hyperlipidemia On: :31 Request Hemoglobin Glyclated (HGB A1C) (15413)Indication: Abnormal glucose tolerance test On: :31 Request PSA (PROSTATE SPECIFIC ANTIGEN) (V76.44)Indication: Benign prostatic hyperplasia with lower urinary tract symptoms, unspecified morphology On: 98-Klm-867784:52 Request MICROALBUMIN: CREATININE RATIO (45593) AND (16100)Indication: Abnormal glucose tolerance test On: :50 Request Hemoglobin Glyclated (HGB A1C) (53844)Indication: Abnormal glucose tolerance test On: :50 Request URINE WARREN CULTURE (MASSIEL COL COUNT) (18312)Indication: Muscle weakness On: :48 Request URINALYSIS, W/ MICRO (53439)Indication: Muscle weakness On: :48 Request CBC with auto diff (79807)Indication: Muscle weakness On: :48 Request JOHN (ANTINUCLEAR ANTIBODY) (42412)Indication: Muscle weakness On: :48 Request SED RATE ERYTHROCYTE (59327)Indication: Muscle weakness On: :48 Request C-REACTIVE PROTEIN (97641)Indication: Muscle weakness On: :48 Request TSH (77502)Indication: Muscle weakness On: :48 Request LIPID PANEL (33454)Indication: Other hyperlipidemia On: :47 Request METABOLIC PANEL, COMPREHENSIVE (84181)Indication: Other hyperlipidemia On: 06-Nsm-170413:46 Request URINE WARREN CULTURE-MASSIEL COL COUNT (60977)Indication: Other abnormal finding of urine On: 1-Oob-037545:42 Request LIPID PANEL (72746)Indication: Other hyperlipidemia On: :44 Request CBC W/AUTO DIFF WBC (95710)Indication: Essential hypertension On: :44 Request METABOLIC PANEL, COMPREHENSIVE (14390)Indication: Essential hypertension On: :44 Request URINE WARREN CULTURE-MASSIEL COL COUNT (88150)Indication: Other abnormal finding of urine On: :00 Request Comments: ADD ON MICROALBUMIN: CREATININE RATIO (25992) AND (42285)Indication: Essential hypertension On: : Request URINALYSIS, W/ MICRO (55580)Indication: Essential hypertension On: : Request METABOLIC PANEL, COMPREHENSIVE (42918)Indication: Essential hypertension On: : Request LIPID PANEL (02269)Indication: Other hyperlipidemia On: : Request CBC WITH MANUAL DIFF (68084)Indication: Iron deficiency On: : Request URINE WARREN CULTURE (MASSIEL COL COUNT) (61619)Indication: Fatigue On: :46 Request MICROALBUMIN: CREATININE RATIO (44828) AND (93169)Indication: Abnormal glucose tolerance test On: :46 Request Hemoglobin Glyclated (HGB A1C) (29317)Indication: Abnormal glucose tolerance test On: :46 Request IRON BINDING CAPACITY (TIBC) (83373)Indication: Anemia, unspecified On: :42 Request FERRITIN (11516)Indication: Anemia, unspecified On: :42 Request IRON (40467)Indication: Anemia, unspecified On: :42 Request VITAMIN B-12 (CYANOCOBALAMIN) (96008)Indication: Fatigue On: :42 Request CBC (AUTO) (59956)Indication: Fatigue On: :42 Request TSH (18840)Indication: Fatigue On: :42 Request Vitamin D Hydroxy (93065)Indication: Fatigue On: :42 Request EBV Panel (85329)Indication: Fatigue On: :42 Request FERRITIN (35611)Indication: Anemia, unspecified On: Request IRON (75742)Indication: Anemia, unspecified On: Request MICROALBUMIN: CREATININE RATIO (29196) AND (89846)Indication: Abnormal glucose tolerance test On: Request METABOLIC PANEL, COMPREHENSIVE (82579)Indication: Abnormal glucose tolerance test On: Request LIPID PANEL (28901)Indication: Other hyperlipidemia On: Request CBC WITH MANUAL DIFF (13865)Indication: Anemia, unspecified On: Request FERRITIN (74101)Indication: Anemia, unspecified On: :15 Request IRON (34247)Indication: Anemia, unspecified On: : Request LIPID PANEL (82042)Indication: Essential hypertension On: Request METABOLIC PANEL, COMPREHENSIVE (04735)Indication: Essential hypertension On: : Request CBC WITH MANUAL DIFF (30932)Indication: Essential hypertension On: :14 Request UPEP (31009)Indication: BRONCHITIS, NOT SPECIFIED ACUTE OR CHRONIC (490.) On: Request Protein Electrophoresis, Serum (SPEP) (63223)Indication: BRONCHITIS, NOT SPECIFIED ACUTE OR CHRONIC (490.) On: Request IGA/IGD/IGG/IGM-EACH (41071)Indication: BRONCHITIS, NOT SPECIFIED ACUTE OR CHRONIC (490.) On: Request URINALYSIS, W/ MICRO (13505)Indication: Anemia, unspecified On: Request CBC WITH MANUAL DIFF (64722)Indication: Anemia, unspecified On: Request FOLIC ACID SERUM (61776)Indication: Anemia, unspecified On: Request VITAMIN B-12 (CYANOCOBALAMIN) (10515)Indication: Anemia, unspecified On: Request RETICULOCYTE COUNT MANUL (47033)Indication: Anemia, unspecified On: : Request LDH (LD) (LACTATE DEHYDROGENASE) (07461)Indication: Anemia, unspecified On: Request IRON BINDING CAPACITY (TIBC) (13980)Indication: Anemia, unspecified On: : Request IRON (31350)Indication: Anemia, unspecified On: Request FERRITIN (66573)Indication: Anemia, unspecified On: Request PSA (PROSTATE SPECIFIC ANTIGEN) (V76.44)Indication: Screening for prostate cancer On: :36 Request LIPID PANEL (67859)Indication: Abnormal glucose tolerance test On: :35 Request CBC WITH MANUAL DIFF (49706)Indication: Hypertension, benign On: Request METABOLIC PANEL, COMPREHENSIVE (24620)Indication: Hypertension, benign On: 35 Request SED RATE ERYTHROCYTE (26163)Indication: Rash On: :22 Request C-REACTIVE PROTEIN (05346)Indication: Rash On: :22 Request RHEUMATOID FACTOR-QUANT (50420)Indication: Rash On: : Request JOHN (ANTINUCLEAR ANTIBODY) (05364)Indication: Rash On: :22 Request CULTURE, SPUTUM (12400)Indication: Cough On: 54-Bcx-244037:20 Request HgA1C , Office (64059)Indication: Abnormal glucose tolerance test On: 59-Tzy-451845:57 Request CULTURE, SPUTUM (09488)Indication: Cough On: 42-Wfx-048300:39 Request ACID FAST STAIN (AFB) (58358)Indication: Cough On: 83-Awi-273186:38 Request TSH (74304)Indication: Other hyperlipidemia On: :21 Request URINALYSIS, W/ MICRO (83953)Indication: Essential hypertension On: :21 Request CBC WITH MANUAL DIFF (48381)Indication: Abnormal glucose tolerance test On: : Request METABOLIC PANEL, COMPREHENSIVE (17907)Indication: Abnormal glucose tolerance test On: :21 Request MICROALBUMIN: CREATININE RATIO (86716) AND (92339)Indication: Abnormal glucose tolerance test On: 73-Bgq-522327:21 Request LIPID PANEL (13857)Indication: Other hyperlipidemia On: 70-Das-960562:20 Request CBC WITH MANUAL DIFF (86560)Indication: Abnormal glucose tolerance test On: :26 Request METABOLIC PANEL, COMPREHENSIVE (56718)Indication: Abnormal glucose tolerance test On: 11-Otg-657085:26 Request CULTURE, SPUTUM (13503)Indication: Cough On: 54-Dgl-518381:18 Request LIPID PANEL (47401)Indication: Other hyperlipidemia On: 66-Dbh-788207:14 Request TSH (02179)Indication: Swelling of limb On: 24-Xoy-58555:58 Request METABOLIC PANEL, COMPREHENSIVE (63123)Indication: Swelling of limb On: 85-Wtl-36695:58 Request CBC WITH MANUAL DIFF (14902)Indication: Swelling of limb On: :58 Request BNTP (63472)Indication: Swelling of limb On: 27-Llj-39876:58 Request CULTURE, SPUTUM (66642)Indication: Cough On: 19-Eco-73235:56 Request PSA (PROSTATE SPECIFIC ANTIGEN) (V76.44)Indication: Screening for prostate cancer On: 96-Iyk-136933:19 Request URINALYSIS, W/ MICRO (57122)Indication: Abnormal glucose tolerance test On: 69-Xgj-680972:18 Request MICROALBUMIN: CREATININE RATIO (67906) AND (15475)Indication: Abnormal glucose tolerance test On: 41-Jrg-366207:18 Request METABOLIC PANEL, COMPREHENSIVE (98662)Indication: Essential hypertension On: 00-Guz-046564:18 Request LIPID PANEL (11626)Indication: Other hyperlipidemia On: 61-Whn-506106:18 Request PSA (PROSTATE SPECIFIC ANTIGEN) (V76.44)Indication: Screening for prostate cancer On: 56-Pjn-216872:40 Request MICROALBUMIN: CREATININE RATIO (85711) AND (24214)Indication: Abnormal glucose tolerance test On: 69-Klb-582678:40 Request METABOLIC PANEL, COMPREHENSIVE (53440)Indication: Abnormal glucose tolerance test On: 89-Gps-949130:40 Request Urine Protein Electrophoresis (UPEP) (37688)Indication: recurrent uri On: :39 Request Serum Protein Electrophoresis (SPEP) (84505)Indication: recurrent uri On: 31-Dat-664447:39 Request IMMUNOGLOBULIN E (IgE) (39112)Indication: Asthma, intrinsic, with status asthmaticus On: 13-Zqc-087771:39 Request IGA/IGD/IGG/IGM-EACH (34141)Indication: Asthma, intrinsic, with status asthmaticus On: 71-Vbe-887505:39 Request LIPID PANEL (40271)Indication: Other hyperlipidemia On: 34-Mki-701782:38 Request ASPERGILLUS AG, EIA (02135)Indication: Cough On: :58 Request SED RATE ERYTHROCYTE (61448)Indication: Cough On: 32-Hng-863724:48 Request C-REACTIVE PROTEIN (64269)Indication: Cough On: :48 Request CBC WITH MANUAL DIFF (87904)Indication: Cough On: 33-Ubb-344136:47 Request Quantiferron gold test (19198)Indication: Cough On: 73-Xtn-403116:45 Request CULTURE, SPUTUM (11178)Indication: Cough On: 55-Mas-725435:45 Request VITAMIN B-12 (CYANOCOBALAMIN) (68018)Indication: Fatigue On: :20 Request Vitamin D Hydroxy (05883)Indication: Fatigue On: 17-Rsb-568965:20 Request CBC WITH MANUAL DIFF (10630)Indication: Abnormal glucose tolerance test On: :19 Request METABOLIC PANEL, COMPREHENSIVE (42544)Indication: Abnormal glucose tolerance test On: :19 Request LIPID PANEL (36721)Indication: Other hyperlipidemia On: 36-Jdt-737346:19 Request URINALYSIS, W/ MICRO (82688)Indication: Abnormal glucose tolerance test On: :19 Request HEMOGLOBIN GLYCLATED (HGB A1C) (28560)Indication: Abnormal glucose tolerance test On: 22-Kzp-665362:19 Request WARREN CULTURE-OTHER (72319)Indication: Pharyngitis, acute On: 71-Cpy-404571:05 Request URINE WARREN CULTURE-MASSIEL COL COUNT (16907)Indication: Abdominal pain, acute, right lower quadrant On: :19 Request CBC WITH MANUAL DIFF (93841)Indication: Abnormal glucose tolerance test On: :08 Request METABOLIC PANEL, COMPREHENSIVE (92359)Indication: Abnormal glucose tolerance test On: 98-Rns-834123:08 Request TSH (59048)Indication: Fatigue On: 62-Ago-296434:02 Request CBC WITH MANUAL DIFF (42213)Indication: Abnormal glucose tolerance test On: :45 Request METABOLIC PANEL, COMPREHENSIVE (21915)Indication: Hypertension, benign On: 99-Vwf-262644:45 Request LIPID PANEL (35585)Indication: Other hyperlipidemia On: :45 Request METABOLIC PANEL, COMPREHENSIVE (19199)Indication: Essential hypertension On: :16 Request LIPID PANEL (92358)Indication: Other hyperlipidemia On: 15-Zac-069583:15 Request URINE WARREN CULTURE-MASSIEL COL COUNT (54823)Indication: Calcium kidney stone On: 24-Lat-834281:54 Request PSA (PROSTATE SPECIFIC ANTIGEN) (V76.44)Indication: Enlarged prostate with lower urinary tract symptoms On: 98-Yov-434594:09 Request METABOLIC PANEL, COMPREHENSIVE (29484)Indication: Abnormal glucose tolerance test On: 65-Axd-786008:09 Request CBC WITH MANUAL DIFF (87961)Indication: Abnormal glucose tolerance test On: 55-Uqp-636254:09 Request LIPID PANEL (60882)Indication: Other hyperlipidemia On: 10-Bnn-404843:09 Request MICROALBUMIN: CREATININE RATIO (08882) AND (86690)Indication: Abnormal glucose tolerance test On: 07-Dtp-116661:09 Request LIPID PANEL (13317)Indication: Other hyperlipidemia On: :31 Request CBC WITH MANUAL DIFF (65621)Indication: Abnormal glucose tolerance test On: :31 Request METABOLIC PANEL, COMPREHENSIVE (19568)Indication: Abnormal glucose tolerance test On: :30 Request MICROALBUMIN: CREATININE RATIO (99921) AND (12028)Indication: Abnormal glucose tolerance test On: 68-Rqh-491247:28 Request METABOLIC PANEL, COMPREHENSIVE (56532)Indication: Abnormal glucose tolerance test On: :07 Request LIPID PANEL (05539)Indication: Other hyperlipidemia On: 9-Jce-330197:07 Request PSA (PROSTATE SPECIFIC ANTIGEN) (V76.44)Indication: Enlarged prostate with lower urinary tract symptoms On: :49 Request METABOLIC PANEL, COMPREHENSIVE ([id number])Indication: Essential hypertension On: 7-Lux-775840:48 Request LIPID PANEL ([id number])Indication: Other hyperlipidemia On: :48 Request HEPATIC FUNCTION PANEL ([id number])Indication: Other hyperlipidemia On: :21 Request LIPID PANEL ([id number])Indication: Other hyperlipidemia On: :21 Request CBC WITH MANUAL DIFF ([id number])Indication: Abnormal glucose tolerance test On: :53 Request METABOLIC PANEL, COMPREHENSIVE ([id number])Indication: Abnormal glucose tolerance test On: :53 Request MICROALBUMIN: CREATININE RATIO ([id number]) AND ([id number])Indication: Abnormal glucose tolerance test On: 5-Rab-057442:53 Request HEPATIC FUNCTION PANEL ([id number])Indication: Other hyperlipidemia On: :53 Request LIPID PANEL ([id number])Indication: Other hyperlipidemia On: 3-Ymm-091168:53 Request GLUCOSE TOLERANCE TEST (GTT) 2 hour On: 1-Gfd-776296:36 Request ([id number]) TSH ([id number])Indication: Dizziness and giddiness On: 42-Mrd-849975:15 Request LIPID PANEL ([id number])Indication: Other hyperlipidemia On: 23-Tcn-080739:15 Request CBC WITH MANUAL DIFF ([id number])Indication: Dizziness and giddiness On: 61-Yqu-269437:15 Request METABOLIC PANEL, COMPREHENSIVE ([id number])Indication: Dizziness and giddiness On: 75-Tsg-698343:15 Request HEPATIC FUNCTION PANEL ([id number])Indication: Other hyperlipidemia On: 73-Zsr-095935:39 Request LIPID PANEL ([id number])Indication: Other hyperlipidemia On: 89-Zqc-720690:39 Request HEPATIC FUNCTION PANEL ([id number])Indication: Other hyperlipidemia On: 84-Mjv-502246:31 Request LIPID PANEL ([id number])Indication: Other hyperlipidemia On: 95-Zpq-909405:31 Request WARREN CULTURE-BLOOD ([id number])Indication: fever On: 0-Vro-431642:58 Request METABOLIC PANEL, COMPREHENSIVE ([id number])Indication: fever On: 8-Aje-517363:58 Request CBC WITH MANUAL DIFF ([id number])Indication: fever On: 0-Uju-047917:58 Request WARREN CULTURE-OTHER ([id number])Indication: Pharyngitis, acute On: 40-Qrc-244469:35 Request PSA (Prostate Specific Antigen), Screening ([id number])Indication: Other hyperlipidemia On: :32 Request LIPID PANEL ([id number])Indication: Other hyperlipidemia On: : Request URINALYSIS W/O MICRO ([id number])Indication: Hypertension, benign On: :31 Request TSH ([id number])Indication: Hypertension, benign On: : Request CBC WITH MANUAL DIFF ([id number])Indication: Hypertension, benign On: :31 Request METABOLIC PANEL, COMPREHENSIVE ([id number])Indication: Hypertension, benign On: :31 Request Creatine Kinase Total ([id number])Indication: Myalgia and myositis On: :24 Request SED RATE ERYTHROCYTE ([id number])Indication: Arthralgia On: :23 Request C-REACTIVE PROTEIN ([id number])Indication: Arthralgia On: :23 Request RHEUMATOID FACTOR-QUANT ([id number])Indication: Arthralgia On: :23 Request JOHN (ANTINUCLEAR ANTIBODY) ([id number])Indication: Arthralgia On: :23 Request Planned Encounters Medical; [facility] 3 Month FU - On: 21-Mar-2018 8:30 [facility] Fast DO, Adelaida A Fast DO, Adelaida A Planned Procedures PNEUM VAC ADLT/IMUMNOSPR, On: 06-Dec-2017 Intent SBC/INTRM ([id number])By: Flakito ACKERMAN, Comments: lot: [id number]: ite/route: Татьяна del/IMamt: 0.5mLVIS signed when applicableEVER Monroy Adelaida A Fast DO, Adelaida A Cartoid DopplerBy: Fast DO, Adelaida On: 06-Sep-2017 Intent A Fast DO, Adelaida A Radiology - Lumbar SpineBy: Fast On: 06-Jun-2017 Intent DO, Adelaida A Fast DO, Adelaida A ELECTROCARDIOGRAM, COMPLETE (ECG) On: 06-Jun-2017 Intent ([id number])By: Flakito ACKERMAN Adelaida A Flakito Comments: ekg [...] XRAY, PA & LATERAL On: 18-Jan-2017 Intent ([id number])By: Yola Witt Aerosol Treatment ([id number])By: On: 18-Jan-2017 Intent Yola Witt Solu -Medrol Injection, 125 mg On: 18-Jan-2017 Intent ([id number])By: Yola Witt Comments: solumedrol 125mg injectionlot: [id number]: 12/2018L GMpt tolerated wellAD BULL CHAIN OPERATOR ELECTROCARDIOGRAM, COMPLETE (ECG) On: 05-Jan-2016 Intent ([id number])By: Adelaida Fraga DO Comments: ekg showed normal sinus rhythym, normal axis, no acute st/t wave changes irbb DO, Adelaida A Solu -Medrol Injection, 125 mg On: 09-May-2015 Intent ([id number])By: Samantha Grewal CNP Comments: lot: [id number]: ite/route:RGM/IMamt: 2mLVIS signed when applicableEVER Dumont Aerosol Treatment ([id number])By: On: 09-May-2015 Intent Slarb BULL CHAIN OPERATOR, Tracey Radiology - Chest- PA and LatBy: [...] A Fast DO, Adelaida A Pulse Oximetry ([id number])By: Flakito On: 26-Aug-2014 Intent DO, Adelaida A Fast DO, Adelaida A Comments: 94%- recheck 95 Aerosol Treatment ([id number])By: On: 10-Apr-2014 Intent Tracey Young LPN Eprescribed prescriptions On: 25-Jul-2013 Intent ([id number])By: Fast DO, Adelaida A Fast DO, Adelaida A Pulse Oximetry ([id number])By: Flakito On: 02-Jul-2013 Intent DO, Adelaida A Fast DO, Adelaida A Comments: 97% Aerosol Treatment ([id number])By: On: 25-Jun-2013 Intent Samantha Grewal CNP Eprescribed prescriptions On: 25-Jun-2013 Intent ([id number])By: Samantha Grewal CNP Eprescribed prescriptions On: 02-Apr-2013 Intent ([id number])By: Leigh Ann Polk Aerosol Treatment ([id number])By: On: 26-Mar-2013 Intent Samantha Grewal CNP Eprescribed prescriptions On: 26-Mar-2013 Intent ([id number])By: Eliana Carter Eprescribed prescriptions On: 25-Dec-2012 Intent ([id number])By: Leigh Ann Polk Aerosol Treatment ([id number])By: On: 06-Nov-2012 Intent Samantha Grewal CNP Eprescribed prescriptions On: 06-Nov-2012 Intent (G8553)By: Eliana Carter Ear Irrigation ([id number])By: Carmina On: 25-Sep-2012 Intent Samantha IRVIN Comments: Ear Irrigation performed on:bilateralAmount/color removed cerumen:large amount of dark brown wax removedOUtcome:clear, pt toleratedUsed wax curettes Wax CurettesBy: Samantha Grewal CNP On: 25-Sep-2012 Intent Eprescribed prescriptions On: 22-Sep-2012 Intent ([id number])By: Peter DO, Elizabet Eprescribed prescriptions On: 02-Aug-2012 Intent (G8553)By: Leigh Ann Polk Pulse Oximetry ([id number])By: Flakito On: 30-Jun-2012 Intent DO, Adealida A Fast DO, Adelaida A Comments: 97% Eprescribed prescriptions On: 12-Jun-2012 Intent ([id number])By: Fast DO, Adelaida A Fast DO, Adelaida A Spirometry ([id number])By: Felicitas, On: 17-Jan-2012 Intent Leigh Ann Comments: good effort and curve mild restriction CT - Sinuses CompleteBy: Fast DO, On: 17-Jan-2012 Intent Adelaida A Fast DO, Adelaida A PNEUM VAC ADLT/IMUMNOSPR, On: 17-Jan-2012 Intent SBC/INTRM ([id number])By: Boris, Comments: Lot:[id number]:04-25-Dose:0.5mLRoute:IMSite:L armGiven By:CHELA signed Julia IMMUNIZ ADMNIN, 1 VAC, SNGL/COMBO On: 17-Jan-2012 Intent ([id number])By: Julia Escalante CT - ChestBy: Fast DO, Adelaida A On: 17-Jan-2012 Intent Fast DO, Adelaida A Eprescribed prescriptions On: 17-Jan-2012 Intent (G8553)By: Leigh Ann Polk Eprescribed prescriptions On: 18-Oct-2011 Intent (G8553)By: Fast DO, Adelaida A Fast DO, Adelaida A EKG ([id number])By: Fast DO, Adelaida A On: 15-Oct-2011 Intent Fast DO, Adelaida A Comments: ekg- sinus with normal axis and nsivcd and no acute changes Eprescribed prescriptions On: 09-Aug-2011 Intent (G8553)By: Fast DO, Adelaida A Fast DO, Adelaida A PFT - CompleteBy: Fast DO, Adelaida On: 08-Mar-2011 Intent A Fast DO, Adelaida A Pulse Oximetry ([id number])By: Carmina On: 02-Feb-2011 Intent Samantha IRVIN Aerosol Treatment ([id number])By: On: 02-Feb-2011 Intent Samantha Grewal CNP Radiology - Chest- PA and LatBy: On: 18-Jan-2011 Intent Fast DO, Adelaida A Fast DO, Adelaida A Pulse Oximetry ([id number])By: On: 18-Jan-2011 Intent Leigh Ann Polk Comments: 93% TDAP VACCINE >7 IM ([id number])By: On: 07-Dec-2010 Intent Leigh Ann Polk Comments: Lot #:[id number] date:mount given:0.5mlRoute: IMSite given:left deltGiven by: DANIEL Zavaleta Eprescribed prescriptions On: 07-Dec-2010 Intent (G8553)By: Fast DO, Adelaida A Fast DO, Adelaida A FLU VAC, SPLIT, >3 YEARS, On: 07-Dec-2010 Intent INTRAMUSC ([id number])By: Felicitas, Comments: received at work Leigh Ann Toradol Injection, 30 mg On: 05-Nov-2010 Intent ([id number])By: Elizabet Green DO Comments: Lot:[id number]:apr 05Amt:30mg/mlRoute:IMSite:left hip Given By: ILDA Tran Ear Irrigation ([id number])By: Peter On: 05-Nov-2010 Intent Elizabet ACKERMAN Comments: Left ear irrigated, large amt of wax removed. pt tolerated well. Eprescribed prescriptions On: 05-Nov-2010 Intent (G8553)By: Elizabet Green DO Wax CurettesBy: Peter ACKERMAN, On: 05-Nov-2010 Intent Elizabet SPECIMEN HNDLNG/TRNSPRT, OFFC > On: 05-Nov-2010 Intent LAB ([id number])By: Elizabet Green DO Nuclear Medicine - HIDA [...] call wet read DO, Adelaida A Spirometry ([id number])By: Flakito ACKERMAN On: 14-Sep-2010 Intent Adelaida A Fast DO, Adelaida A Comments: good effort and curve- mild restriction Eprescribed prescriptions On: 14-Sep-2010 Intent (G8553)By: Flakito DO, Adelaida A Fast DO, Adelaida A Pulse Oximetry ([id number])By: Flakito On: 14-Sep-2010 Intent DO, Adelaida A Fast DO, Adelaida A Comments: 94-95 Radiology - Chest- PA and LatBy: On: 14-Sep-2010 Intent Fast DO, Adelaida A Fast DO, Adelaida A Pulse Oximetry ([id number])By: Ciesa On: 23-Feb-2010 Intent 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, 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 Aerosol Treatment ([id number])By: On: 23-Feb-2010 Intent Ciesa 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, Anamaria Pulse Oximetry ([id number])By: Ciesa On: 26-Jan-2010 Intent 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, 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 Aerosol Treatment ([id number])By: On: 26-Jan-2010 Intent Ciesa 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, Anamaria Spirometry ([id number])By: Felicitas, On: 29-Apr-2008 Intent Leigh Ann Comments: good effort and curve normal EKG ([id number])By: Fast DO, Adelaida A On: 20-Apr-2007 Intent [...] ACKERMAN Adelaida A Flakito Comments: Lot #: [id number] date: 10/30Amount given: 2 gramsRoute: IMSite given: Right hip and left hipGiven by: Calin Townsend LPN DO, Adelaida A Spirometry ([id number])By: Flakito ACKERMAN, On: 27-Mar-2007 Intent Adelaida A Fast DO, Adelaida A Comments: good effort and curve normal EBV SEROLOGIC TESTBy: Mary Ann Salcido On: 17-Feb-2007 Intent RUDY-GUZMAN VCA ANTIBODY On: 16-Feb-2007 Intent MEASUREMENTBy: Mast RN, Negrita SPECIMEN HNDLNG/TRNSPRT, OFFC > On: 06-Feb-2007 Intent LAB ([id number])By: Fast DO, Adelaida A Fast DO, Adelaida A Ultrasound - TesticularBy: Fast On: 13-Oct-2006 Intent DO, Adelaida A Fast DO, Adelaida A Inhaler Demo ([id number])By: Fast DO, On: 26-Sep-2006 Intent Adelaida A Fast DO, Adelaida A Radiology - Hip - LeftBy: Fast On: 26-Sep-2006 Intent DO, Adelaida A Fast DO, Adelaida A Radiology - Hip - RightBy: Fast On: 26-Sep-2006 Intent DO, Adelaida A Fast DO, Adelaida A Bio Z ([id number])By: Fast DO, Adelaida A On: 25-Jul-2006 Intent Fast DO, Adelaida A Comments: normal paremters Six Minute Walk Assessment On: 25-Jul-2006 Intent ([id number])By: Fast DO, Adelaida A Fast DO, Adelaida A Radiology - Chest- PA and LatBy: On: 25-Jul-2006 Intent Fast DO, Adelaida A Fast DO, Adelaida A Spirometry ([id number])By: Fast DO, On: 25-Jul-2006 Intent Adelaida A Fast DO, Adelaida A Comments: good effort and curve- normal EDISON (Ankle Brachial Index) On: 20-Jul-2006 Intent ([id number])By: Leigh Ann Polk Comments: done EDISON (Ankle Brachial Index) On: 17-May-2006 Intent ([id number])By: Fast DO, Adelaida A Fast DO, Adelaida [...] Indication: Neoplasm of uncertain behavior of skin [facility] Wellness Physical : Patient Instructions Indication: [facility] Well[facility] Physical [facility] Wellness Physical : How to access health information online Indication: [facility] Wellness Physical [facility] Wellness Physical : How to access health information online - Detail Indication: [facility] Well[facility] Physical Other hyperlipidemia : How to [...] Advance Directives Name Dates Details Immunization Registry [place] - Effective on Effective: 31-Jan-201701/31/2017. Expiration date [...] he is going to go to the [facility]- and try to start exercising-, [ADDITIONAL [...] days ago- Dr. Fraga called pt in [facility]. 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 [employer]- [...] congestion and ears hurt- [facility]: Cough (786.2), SHORTNESS OF BREATH (Renamed [...] for Follow up ER: Pt went to [facility] and then went to [facility] to have the doppler done.- got back [...] 2 days with bad UTI.- was at [facility] and getting cystoscopy done and was found to be retaining urine- - by the next night he was sick with no appetitie and just felt bad went to bed - woke up next day- and felt bad- and went to [facility]- and had uti- was there [...] up hospital : Pt was transfered to [facility] for heart cath and discharged sat 06/30/13.- he had heart cath again at [facility] and one vessel which shows 20percent [...] intermittent sob- bp is good- saw Mac znuiga allergies tested positive to cats and grass- [...] saw a Dr Barker a psychiatrist in [place]- he thought mostly anxiety so left him [...] gerd- so he is going back to [facility]- mood good with celexa-less tense, [...]
--- OUTSIDE RECORDS SUMMARY | 2018-05-15 00:32 | XMS RPT_ITS | Continuity of Care Document ---
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) Comments: better Status: Active Left knee pain (M25.562, 719.46) Status: Active Lumbar radiculopathy (M54.16, 724.4) Status: Active Lymphadenitis, unspecified, except mesenteric (I88.9, 289.3) Status: Active [facility] Status: Active [facility] Status: Active Moderate persistent asthma with acute exacerbation (J45.41, 493.92) Comments: on singceceliair, faisal, mitulsta Status: Active Moderate persistent asthma without complication (J45.40, 493.90) Comments: trying to get breo samples Status: Active Nonpsychotic mental disorder, 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, [...] Angina pectoris, 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, 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) Status: Active Right wrist pain (M25.531, 719.43) Status: Active SHORTNESS OF BREATH (Renamed from [...] days Quantity: 30 {Tablet} Refills: 0 Ordered:09-Aug-2016 Fast Adelaida ACKERMAN DO, Debra A Start : 09-Aug-2016 Active ASPIRIN, 81MG (Oral Tablet) 1 qd for 0 days Refills: 0 Ordered:22-Jan-2009 Mast Yandel FERGUSON Ativan 0.5 MG Oral Tablet 1 (one) Tablet qd, prn for 30 days Quantity: 30 {Tablet} Refills: 0 Ordered:03-Mar-2018 Adelaida Fraga DO, DO, Debra A Start : 03-Mar-2018 Active Comments:thirtyAnxiety/Depression F41.9340,411,000 - OD risk 100 Azelastine HCl 0.1 % Nasal Solution 1-2 sprays each nostril Soluti Solution daily for 90 days Quantity: 3 {[place]} Refills: 5 Ordered:31-Oct-2017 Fast DO, Adelaida AFast DO, Adelaida A Start : 31-Oct-2017 Active Breo Ellipta 200-25 MCG/INH Inhalation Aerosol Powder Breath Activated 1 (one) Puff puff bid for 0 days Quantity: 60 {Inhalation} Refills: 0 Ordered:10-Mar-2018 Fast DO, Adelaida AFast DO, Adelaida A Start : 10-Mar-2018 Active BusPIRone HCl 30 MG Oral Tablet 1 Tablet bid for 90 days Quantity: 180 {Tablet} Refills: 3 Ordered:28-Feb-2018 Fast DO, Adelaida AFast DO, Adelaida A Start : 28-Feb-2018 Active Cyclobenzaprine HCl 10 MG Oral Tablet 1 (one) Tablet daily, prn for 30 days Quantity: 30 {Tablet} Refills: 1 Ordered:09-Jan-2018 Eliana Carter Start : 09-Jan-2018 End : 06-Sep-2017 Active Effexor XR 150 MG Oral Capsule [...] A Start : 02-Nov-2017 Active Comments:sixtyDX: M54.16, M51.86143,411,000 - OD risk 100 Lunesta 3 MG Oral Tablet 1 (one) Tablet q hs for 30 days Quantity: 30 {Tablet} Refills: 2 Ordered:06-Mar-2018 Flakito ACKERMANAdelaida DO, Debra A Start : 06-Mar-2018 Active MetFORMIN HCl ER 500 MG Oral Tablet Extended Release 24 Hour 2 (two) Tablet ER 24HR qd for 0 days Quantity: 180 {Tablet} Refills: 3 Ordered:06-Sep-2017 Flakito ACKERMANAdelaida DO, Debra A Start : 06-Sep-2017 Active Myrbetriq 50 [...] Quantity: 180 {Tablet} Refills: 3 Ordered:06-Jun-2017 Flakito ACKERMANAdelaida DO, Debra A Start : 06-Jun-2017 Active Proventil HFA 108 (90 Base) MCG/ACT Inhalation Aerosol Solution 2 (two) Aerosol Soln qid, prn for 30 days Quantity: 1 {Aerosol_Soln} Refills: 3 Ordered:06-Apr-2016 Flakito ACKERMANAdelaida DO, Debra A Start : 06-Apr-2016 Active Ranexa 500 MG Oral Tablet Extended Release 12 Hour 2 (two) Tablet ER 12HR bid for 0 days Quantity: 120 {Tablet} Refills: 0 Ordered:06-Apr-2016 Flakito ACKERMANAdelaida DO, Debra A Start : 06-Apr-2016 Active Rosuvastatin Calcium 40 MG Oral Tablet 1 (one) Tablet qd for 0 days Quantity: 30 {Tablet} Refills: 6 Ordered:20-Feb-2018 Flakito ACKERMANAdelaida DO, Debra A Start : 20-Feb-2018 Active Singulair 10 MG Oral Tablet 1 (one) Tablet qd for 0 days Quantity: 90 {Tablet} Refills: 2 Ordered:13-Feb-2018 Manolo Fraga DOa AFtesfaye DO, Adelaida A Start : 13-Feb-2018 Active ASMANEX 120 [...] days Quantity: 28 {Tablet} Refills: 0 Ordered:12-Jun-2012 Adelaida Fraga DO DO, Adelaida A Start : 12-Jun-2012 End [...] 20-Mar-2013 Inactive Comments:alternate with 20mg(per [facility] at [facility] - was not fillable if more than 1qd and would require pa at [phone] or [phone] - sent in this way to see if will process -- no id number was given = Karely Diflucan 150 MG Oral Tablet 1 (one) Tablet daily for 7 days Quantity: 7 {Tablet} Refills: 0 Ordered:28-Jan-2017 Flakito DO, Adelaida AFast DO, Adelaida A Start : 28-Jan-2017 End : 04-Feb-2017 Inactive Comments:hold atorvastatin while on DIFLUCAN, 150MG (Oral Tablet) 1 Tablet qd for 0 days Quantity: 10 {Tablet} Refills: 0 Ordered:08-Mar-2011 Leigh Ann Polk Start : 26-Jan-2011 End : 08-Mar-2011 Inactive Dulera 200-5 MCG/ACT Inhalation Aerosol 2 puffs Aerosol bid for 30 days Quantity: 3 {Inhaler} Refills: 3 Ordered:10-Mar-2018 Flakito ACKERMAN, Adelaida AFast DO, Adelaida A Start : 19-May-2017 End : 10-Mar-2018 Inactive GLYCOLAX (Oral Powder) 17 grams Powder [...] days Quantity: 60 {Tablet} Refills: 0 Ordered:05-Sep-2012 Flakito DO, Adelaida AFast DO, Adelaida A Start : 02-Aug-2012 End : 01-Sep-2012 Inactive Comments:SIXTY Levaquin 500 MG Oral Tablet 1 (one) Tablet daily for 5 days Quantity: 5 {Tablet} Refills: 0 Ordered:15-Jul-2017 Fast DO, Adelaida AFast DO, Adelaida A Start : 15-Jul-2017 End : 20-Jul-2017 [...] (Oral Capsule) 1 (one) Capsule Capsule bid q0oqdof for 21 days Quantity: 42 {Capsule} Refills: 0 Ordered:21-Jan-2014 Manolo Fraga DOa AFast DO, Adelaida A Start : 21-Jan-2014 End : 11-Feb-2014 Inactive [...] : 02-Sep-2010 End : 05-Nov-2010 Inactive NYSTATIN, 885814PPYY/ML (Mouth/Throat Suspension) 10 cc tid for 0 days Quantity: 300 {Suspension} Refills: 0 Ordered:08-Mar-2011 Leigh Ann Polk Start : 25-Feb-2011 End : 08-Mar-2011 Inactive PLAVIX, 75MG (Oral Tablet) 1 qd for 0 days Refills: 0 Ordered:25-Sep-2012 Gabbi Luevano LPN End : 25-Sep-2012 Inactive PredniSONE 10 MG Oral Tablet 1 (one) Tablet TAD for 0 days Quantity: 18 {Tablet} Refills: 0 Ordered:20-Sep-2017 Manolo Fraga DOa AFast DO, Adelaida A Start : 06-Sep-2017 End : 20-Sep-2017 Inactive [...] : 22-Jun-2013 End : 03-Sep-2013 Inactive ZOSTAVAX, 87438XVM/0.65ML (Subcutaneous Solution Reconstituted) 1 For Solution sc [...] days Quantity: 1 {Aero_Pow_Br_Act} Refills: 1 Ordered:25-Dec-2012 DO, Adelaida AFast DO, Adelaida A Start : 25-Dec-2012 End : 25-Dec-2012 Discontinued ADVAIR HFA, 230-21MCG/ACT (Inhalation Aerosol) 2 puffs Aerosol bid for 90 days Quantity: 3 {Inhaler} Refills: 3 Ordered:10-Apr-2014 Tracey Young LPN Start : 22-Jun-2013 End : 10-Apr-2014 Discontinued ATENOLOL, 50MG (Oral Tablet) 1 tab Tablet qd for 30 days Quantity: 30 {Tablet} Refills: 0 Ordered:10-Apr-2014 Tracey Young LPN Start : 12-Jun-2012 End : 10-Apr-2014 Discontinued Atorvastatin Calcium 80 MG Oral Tablet 1 (one) Tablet qd for 30 days Quantity: 30 {Tablet} Refills: 3 Ordered:06-Jun-2017 DO, Adelaida AFast DO, Adelaida A Start [...] 0 days Quantity: 20 {Tablet} Refills: 0 Ordered:22-Apr-2013 Fast DO, Adelaida AFast DO, Adelaida A [...] Quantity: 60 {Capsule} Refills: 3 Ordered:10-Apr-2014 Slarb MARINE WELDER, Tracey Start : 29-Oct-2013 End : 10-Apr-2014 Discontinued Dymista 137-50 MCG/ACT Nasal Suspension 1 spray each nostril qd for 0 days Quantity: 2 {[place]} Refills: 0 Ordered:11-Jun-2016 Leigh Ann Polk Start [...] days Quantity: 1 {Aerosol} Refills: 3 Ordered:02-Aug-2012 Flakito DO, Adelaida AFast DO, Adelaida A Start : 02-Aug-2012 End : 02-Aug-2012 Discontinued Comments:please give spacer Hydrocodone-Acetaminophen 5-325 MG Oral Tablet 1 (one) Tablet Tablet q 6hrs, prn for 30 days Quantity: 60 {Tablet} Refills: 0 Ordered:06-Apr-2016 Leigh Ann Polk Start : 05-Jan-2016 End : 06-Apr-2016 [id number] df viewed and approved- gave scripts to [...] days Quantity: 7 {Tablet} Refills: 0 Ordered:25-Dec-2012 Flakito ACKERMAN, Adelaida AFast DO, Adelaida A Start : 25-Dec-2012 End : 25-Dec-2012 Discontinued LOVENOX, 120MG/0.8ML (Subcutaneous Solution) 1 inj bid (120 MG/0.8ML) End : 23-Sep-2014 Discontinued MECLIZINE HCL, 12.5MG (Oral Tablet) 1 prn for 0 days Refills: 0 Ordered:29-Jan-2008 aMkeda Mejia End : 20-Apr-2007 Discontinued MYCELEX, 10MG [...] Quantity: 90 {Tablet} Refills: 3 Ordered:05-Jan-2016 Fast DOManoloa Harriet ACKERMAN Adelaida A Start : 05-Jan-2016 End : 05-Jan-2016 Discontinued NITROGLYCERIN TRANSDERMAL, 0.2MG/HR (Transdermal Patch 24 Hour) 1 patch qd, take off q hs for 0 days Refills: 0 Ordered:12-Aug-2008 Adelaida ACKERMAN DO, Debra A End : 25-Jul-2013 Discontinued Comments:This order discontinued per [facility]. OXYBUTYNIN CHLORIDE ER, 10MG (Oral Tablet Extended Release 24 Hour) 1 (one) Tablet ER 24HR qd for 0 days Quantity: 30 {Tablet} Refills: 0 Ordered:23-Sep-2014 Adelaida ACKERMAN DO Adelaida A Start : 23-Sep-2014 End : 23-Sep-2014 [...] days Quantity: 60 {Capsule_DR} Refills: 2 Ordered:05-Oct-2010 Fast DOManoloa Harriet ACKERMAN Adelaida A Start : 05-Oct-2010 End : 05-Oct-2010 Discontinued QVAR, 40MCG/ACT (Inhalation Aerosol Solution) 1 Aerosol Soln daily for 360 days Refills: 0 Ordered:06-Jan-2015 Fast DO, Adelaida AFast DO, Adelaida A Start : 06-Jan-2015 End [...] Quantity: 42 {Tablet} Refills: 0 Ordered:06-Jan-2015 Fast DO, Adelaida AFast DO, Adelaida A Start : 06-Jan-2015 End : 06-Jan-2015 Discontinued ZITHROMAX Z-PHUC, 250MG (Oral Tablet) tad Tablet qd for 0 days Quantity: 6 {Package} Refills: 0 Ordered:10-Apr-2014 Slarb MARINE WELDER, Tracey Start : 06-Feb-2014 End : 10-Apr-2014 Discontinued ZOLOFT, 50MG (Oral Tablet) 1 (one) Tablet qd for 0 days Quantity: 30 {Tablet} Refills: 0 Ordered:20-Nov-2012 Fast DO, Adelaida AFast DO, Adelaida A [...] x3 one on scalp two on right restorationism Status: Inactive as of 06-Jun-2017 Acute sinusitis, [...] 07-27 Completed Tonsillectomy Completed Date Value Details 10-Mar-2018 Wrist min 3 Views Result: Comments: See Note; NOTES: [facility] [address] [place] [address] Wrist min 3 Views MR#: [id number] Acct: [id number] Name: YUMIKO LANDRUM Brandon Rep #: [id number] OB: 1950 M 67 From: Donnell Bliss MD PCP: Adelaida Fraga DO Status: REG CLI Study: Wrist min 3 Views Date of Exam: 03/10/18 Exam# [id number] Ordering Dr: Adelaida Fraga DO STUDY: X-RAY - RIGHT WRIST REASON FOR EXAM: Male, 67 years old. Pain. TECHNIQUE: 3 view(s) of the wrist were obtained. COMPARISON: None. FINDINGS: Normal visualized distal radius and ulna. Normal radiocarpal articulation. Normal distal radioulnar articulation. Normal carpal bones. Normal carpal articulations. Normal carpometacarpal articulation of the thumb. Normal second through fifth c arpometacarpal articulations. Normal visualized metacarpal bones. The soft tissue structures are unremarkable. Calcified radial and ulnar arteries. 0082 RAD/Wrist min 3 Views IMPRESSION: Normal x-ray examination of the wrist. Electronically Signed: Donnell Bliss MD at 14:33 EST , Service support , Fax CC: Adelaida Fraga DO Machine Repairer: Signed 10-Mar-2018 Knee 4 or More Views Result: Comments: See Note; NOTES: [facility] [address] [place] [id number] Knee 4 or More Views MR#: [id number] Acct: [id number] Name: YUMIKO LANDRUM Rep #: [id number] : 1950 M 67 From: Donnell Bliss MD PCP: Adelaida Fraga DO Status: REG CLI Study: Knee 4 or More Views Date of Exam: 03/10/18 Exam# [id number] Ordering Dr: Adelaida Fraga DO STUDY: X-RAY - LEFT K NEE REASON FOR EXAM: Male, 67 years old. Pain. TECHNIQUE: 5 view(s) of the knee. COMPARISON: None. FINDINGS: Normal visualized distal femur. Normal visualized pro ximal tibia and fibula. Normal proximal tibiofibular articulation. There is no demonstrated fracture. Normal medial femorotibial compartment. Normal lateral femorotibial compartment. Normal patellofemo ral articulation. There is no demonstrated joint effusion. The soft tissue structures are unremarkable. RAD/Knee 4 or More Views IMPRESSION: Nor mal x-ray examination of the knee. Electronically Signed: Donnell Bliss MD at 14:04 EST , Service support , CC: Adelaida Fraga DO Machine Repairer: Signed 10-Jan-2018 Cardiology Visit Report Result: Comments: See Note; NOTES: [facility] [address] [place] [address]. [address] [place] [address] OFFICE VISIT Date of Service: 01/10/18 MR#: [id number] Acct: [id number] Name: YUMIKO LANDRUM Rep #: [id number] : 1950 Provider: Sabra Leonard Age/Sex: 67/M Location: [facility] Status: Signed HPI HPI Details: YUMIKO LANDRUM, [...] 108/56 L Intake Visit Reasons: 6 M Healthcare Management Consultant Required: No Accompanied by: None Is patient in pain?: No Allergies iodine Allergy (Verified 01/10/18 10:27) Rash, upset stomach, facia l swelling Penicillins Allergy (Verified 01/10/18 10:27) Rash pseudoephedrine HCl [From Actifed] Allergy (Verified 01/10/18 10:27) mood changes triprolidine HCl [From Actifed] Allergy (Verified 01/10/18 10:27) mood changes Medications Aspirin [Aspirin, Baby] 81 [...] Prinzmetal angina (Acute) Atherosclerotic heart disease of [place] coronary artery without angina pectoris (Behavioral Health Care Manager allyssa) Anxiety (Chronic) Asthma (Chronic) BPH (benign [...] hodgkins lymphoma Social History Smoking Status: Former s zahiraker how long ago did patient quit smokin [...] diastology for age. Stress test in 2018 demon strated: Stress nuclear study: imaging concerning for changes in the inferior distribution. Heart cath in 2018 demonstrated: Elevated Left Ventricular End Diastolic Pressure Normal LV size, wall motio n,and systolic function LVEF: by LV gram 65 % [place] Multivessel CAD LAD stent: patent DX stent: patent RECOMMENDATIONS Risk factor modification Medical therapy Assessment AND Plan 1. Atheros clerosis of [place] coronary artery of [place] heart without angina pectoris I25.10 PTCA/RINA to [...] Code Off vis,est,level 3 Diagnoses Atherosclerosis of [place] coronary artery of [place] heart without angina pectoris I25.10 [place] vs. tra nsplanted heart: [place] heart Essential hypertension I10 Hypertension type: essential hypertension Pure hypercholesterolemia E78.00; E78.0 Hyperlipidemia type: pure hypercholesterolemia Prinzmetal angin a I20.1 Coding Level of Care Code Off vis,est,level 3 Diagnoses Atherosclerosis of [place] coronary artery of [place] heart without angina pectoris I25.10 [place] vs. transplanted heart: [place] heart Es sential hypertension I10 Hypertension type: essential hypertension Pure hypercholesterolemia E78.00; E78.0 Hyperlipidemia type: pure hypercholesterolemia Prinzmetal angina I20.1 01/10/18 1104 &#6 0;Electronically signed by Sabra KENDALL> Date Sabra KENDALL Cosigner Signature: Date (if applicable) CC: Adelaida Fraga DO 26-Sep-2017 Brain W/WO Contrast Result: Comments: See Note; NOTES: [facility] [address] [place] [address] Brain W/WO Contrast MR#: [id number] Acct: [id number] Name: YUMIOK LANDRUM Rep #: [id number] : 1950 M 67 From: Rodney Sarah MD PCP: Adelaida Fraga DO Status: REG CLI Study: Brain W/WO Contrast Date of Exam: 09/26/17 Exam# [id number] Ordering Dr: Perico Crowe MD STUDY: MRI [...] CC: Perico Crowe MD; Adelaida Fraga DO Machine Repairer: Signed 17-Sep-2017 Carotid Duplex Ultrasound Result: Comments: See Note; NOTES: [facility] [address] [place] [address] Carotid Duplex Ultrasound 09/16/17 1012 MR#: [id number] Acct: [id number] Name: YUMIKO MCCOLLUM Rep #: [id number] : 1950 66 From: Jung Garcia MD [...] the left vertebral artery. Procedure Carotid Duplex 23096. The study was technically difficult. Exam performed in department. Interpretati on Summary Mild (<50%) stenosis right extracranial internal carotid. Mild (<50%) stenosis left extracranial internal carotid. Flow within the vertebral arteries is antegrade bilaterally. Ordering Physician: Adelaida Fraga Referring Physician: Adelaida Fraga V Performed By: Nilda Rahman , MORE, RVT 09/17/17 1511 Date Jung Garcia MD CC: Adeladia Fraga DO Date Dictated: 1012 Date Transcribed: 09/17/17 151 Machine Repairer: Signed 17-Aug-2017 History and Physical Exam Result: Comments: See Note; NOTES: [facility] Medical Records Department [address] [facility] [address] History and Physical 08/17/17913 MR#: [id number] Acct: [id number] Name: DOMINICK,MCNALLY Rep #: [id number] : 1950 66 From: Remigio Lares MD PCP: Adelaida Fraga DO Status: REG [facility] Location: [facility] Problem List (1) Abnormal stress test Status: Acute (2) Atherosclerotic heart d isease of [place] coronary artery without angina pectoris Status: Chronic Qualifiers: [place] vs. transplanted heart: [place] heart Qualified Code(s): I25.10 - Atherosclerotic heart disease of [place] coron elise artery without angina pectoris Comment: [...] was trivial MR and TR and mild [place]. His estimated RV systolic pressure was 30 [...] please see previously dictated out the patient ZAMZAM from 07/14/2017. Review of systems: Upon review [...] this approach. This note was generated with [employer] dictation software. It may contain incorrect words, spelling, and punctuation that were not noted in checking the note bef ore signing. 08/17/17 0925 <Electronically signed by Remigio Lares MD> Date Remigio Lares MD Cosigner Signature: Date (if applicable) CC: Adelaida Fraga DO; Remigio Lares MD Signed 11-Aug-2017 Chest PA and Lateral Result: Comments: See Note; NOTES: [facility] [address] [place] [address] Chest PA and Lateral MR#: [id number] Acct: [id number] Name: YUMIKO LANDRUM Rep #: [id number] : 1950 M 66 From: Will Guerrero MD PCP: Adelaida Fraga DO Status: REG CLI Study: Chest PA and Lateral Date of Exam: 08/11/17 Exam# [id number] Ordering Dr: Remigio Lares MD STUDY: X-RAY [...] CC: Adelaida Fraga DO; Remigio Lares MD Machine Repairer: Signed 02-Aug-2017 Stress Report Result: Comments: See Note; NOTES: [facility] Cardi[facility] Services [address] [place] [address] MR#: [id number] Acct: [id number] Name: YUMIKO LANDRUM Rep #: [id number] : [birth year] 66 From: Remigio Lares MD [...] 72 %. This note was generated with [employer] software. It may contain incorrect words, spelling, and punctuation that were not noted in checking the note before signing. 08/02/17 2033 <Electronically signed by Remigio Lares MD> Date Remigio Lares MD CC: Adelaida Fraga DO; Remigio Lares MD Date Dictate d: 08/02/171638 Date Transcribed: 08/02/171638 Machine Repairer: PM Signed 14-Jul-2017 Cardiology Visit Report Result: Comments: See Note; NOTES: [facility] [address] [place] [address] OFFICE VISIT Date of Service: 07/14/17 MR#: [id number] Acct: [id number] Name: DOMINICKYUMIKO Rep #: [id number] : 1950 Provider: Remigio Lares MD Age/Sex: 66/M Location: [facility] Status: Signed HPI HPI Details: YUMIKO LANDRUM, is a 66 M who presents to the office today for outpatient card iovascular consultation for history of underlying CAD status post LAD PCI. He has been cared for in the past both by the [facility] members (Drs. Griggs and Edwin), at [facility] by Dr. Rosales, and at [facility] by Dr. Maury Veliz. He states he lost saw Dr. Veliz approximately 1 year ago. He is now relocating his care locally. He has a history of underlying CAD. He underwent a previous diagnostic car diac catheterization on 08/11/2005 at [facility]. At that point in time he [...] no significant stenosis. In April 2008, at [facility], he had a repeat diagnostic cardiac [...] luminal irregularities. He apparently was transferred to [facility] for further evaluation and care. [...] an LYNDSEY inhibitor. He believes his former lay up operator remove these medications from ar s medication list. He does not recall [...] 150 mg PO QHS 07/14/17 [History Confirmed 05/2 4/18] venlafaxine ER 75 mg capsule,extended release 24 hr 75 mg PO QAM cap 07/14/17 [History Confirmed 07/14/17] [facility] Medical History Presence of sten t in coronary artery (Chronic 08/11/05) Hyperlipidemia (Chronic) Hypertension (Chronic) Prinzmetal angina (Acute) Atherosclerotic heart disease of [place] coronary artery without angina pectoris (Chroni c) [...] affect Assessment AND Plan 1. Atherosclerosis of [place] coronary artery of [place] heart without angina pectoris I25.10 PTCA/RINA to [...] Code Off vis,new,level 4 Diagnoses Atherosclerosis of [place] coronary artery of [place] heart without angina pectoris I25.10 [place] vs. transplanted heart: n ative heart Presence of stent in coronary artery Z95.5 Hyperlipidemia, unspecified hyperlipidemia type E78.5 Hyperlipidemia type: unspecified Essential hypertension I10 Hypertension type: essential hype rtension COPD (chronic obstructive pulmonary disease) J44.9 Coding Level of Care Code Off vis,new,level 4 Diagnoses Atherosclerosis of [place] coronary artery of [place] heart without angina pectoris I 25.10 [place] vs. transplanted heart: [place] heart Presence of stent in coronary artery Z95.5 Hyperlipidemia, unspecified hyperlipidemia type E78.5 Hyperlipidemia type: unspecified Essential hypertension I10 Hypertension type: essential hypertension COPD (chronic obstructive pulmonary disease) J44.9 07/14/17 1558 <Electronically signed by Remigio Lares MD> Date Remigio Lares MD Cosigner Signature: Date (if applicable) CC: Adelaida Fraga DO 14-Jul-2017 12 Lead EKG performed by [facility] Result: Comments: See Note; NOTES: [facility] [address] [place] [address] 12 Lead EKG performed by [facility] 07/14/171435 MR#: [id number] Acct: [id number] Name: YUMIKO LANDRUM Rep #: [id number] : 1950 66 From: Remigio Lares MD Attending Dr: Remigio Lares MD Status: DEP AMB Ordering Dr: Remigio Lares MD Date: 07/14/17 Location: [facility] Sex: M C Admitted: [facility]/12 Lead EKG performed by [facility] ECG Report Interpretation Sinus Rhythm Right bundle branch block. ABNORMAL Electronically signed on 07/14/2017 at 17:15 by Remigio Lares 07/14/17 1717 Date Remigio Lares MD CC: Adelaida Fraga DO Date Dictated: 07/14/171435 Date Transcribed: 07/14/171435 Machine Repairer: PM Signed 04-Jul-2017 TXT - Blood Flow Screening Result: Comments: See Note; NOTES: [facility] Services [address] [place] [address] 07/04/17 0840 MR#: [id number] Acct: [id number] Name: YUMIKO LANDRUM Rep #: [id number] : 1950 66 From: Jung Garcia MD Attending Dr: Adelaida Fraga DO Status: REG REF Ordering Dr: Date: 07/04/17 Location: [facility] Sex: M C Admitted: Reason For [...] (1.0 or greater). Ordering Physician: Adelaida Fraga [facility] Physician: Adelaida Fraga Performed By: Kayla Kelley, RDLEANNE, RVT 07/04/172221 Date Tyrese Garcia MD CC: Adelaida Fraga DO Date Dictated: 07/04/17 0840 Date Transcribed: 07/04/172221 Machine Repairer: Signed 06-Jun-2017 L/S Spine Min 4 Views Result: Comments: See Note; NOTES: [facility] [address] [facility] [place] [address] L/S Spine Min 4 Views MR#: [id number] Acct: [id number] Name: YUMIKO LANDRUM Rep #: [id number] : 1950 M 66 From: Rafael Manley DO PCP: Adelaida Fraga DO Status: REG CLI Study: L/S Spine Min 4 Views Date of Exam: 06/06/17 Exam# [id number] Ordering Dr: Adelaida Fraga DO STUDY: X-RAY [...] Rafael Manley DO at 18:01 EDT Tel [phone], Service support , CC: Adelaida Fraga DO Machine Repairer: Signed 18-Feb-2017 Ankle min 3 Views Result: Comments: See Note; NOTES: [facility] Services [address] [place] [address] [address] Ankle min 3 Views MR#: [id number] Acct: [id number] Name: YUMIKO LANDRUM Rep #: [id number] D OB: 1950 M 66 From: Trevon Carrillo MD PCP: Adelaida Fraga DO Status: REG CLI Study: Ankle min 3 Views Date of Exam: 02/18/17 Exam# [id number] Ordering Dr: Adelaida Fraga DO STUDY: X-RAY [...] Service support , CC: Adelaida Fraga DO Machine Repairer: Signed 18-Feb-2017 Chest without Contrast Result: Comments: See Note; NOTES: [facility] Imaging Services [address] [place] [address] Chest without Contrast MR#: [id number] Acct: [id number] Name: YUMIKO LANDRUM Rep #: [id number] : 1950 M 66 From: Kaitlin Campoverde PCP: Adelaida Fraga DO Status: REG CLI Study: Chest without Contrast Date of Exam: 02/18/17 Exam# [id number] Ordering Dr: Adelaida Fraga DO STUDY: CT [...] Service support , CC: Adelaida Fraga DO Machine Repairer: Signed 10-Feb-2017 Chest PA and Lateral Result: Comments: See Note; NOTES: [facility] Imaging Services [facility] [place] [address] Chest PA and Lateral MR#: [id number] Acct: [id number] Name: YUMIKO LANDRUM Rep #: [id number] : 1950 M 66 From: Chava Fu MD PCP: Adelaida Fraga DO Status: REG CLI Study: Chest PA and Lateral Date of Exam: 02/10/17 Exam# [id number] Ordering Dr: Yola Witt STUDY: X-RAY CHEST [...] , CC: COCO Witt; Adelaida Fraga DO Machine Repairer: Signed 18-Jan-2017 Chest PA and Lateral Result: Comments: See Note; NOTES: [facility] Imaging Services [address] [place] [address] 7[address] Chest PA and Lateral MR#: [id number] Acct: [id number] Name: YUMIKO LANDRUM Rep #: [id number] : 1950 M 66 From: Erwin Jiménez MD PCP: Adelaida Fraga DO Status: REG CLI Study: Chest PA and Lateral Date of Exam: 01/18/17 Exam# [id number] Ordering Dr: Yola Witt STUDY: X-RAY CHES [...] EST Tel , Service support , CC: COCO Witt; Adelaida Fraga DO Machine Repairer: Signed 11-Apr-2015 Chest PA and Lateral Result: Comments: See Note; NOTES: [facility] Imaging Services [address] [place] [address] Verdana 4d Chest PA and Lateral MR#: [id number] Acct: [id number] Name: YUMIKO LANDRUM Rep #: [id number] : 1950 M 64 From: Stephen Barba MD PCP: Adelaida Fraga DO Status: REG CLI Study: Chest PA and Lateral Date of Exam: 04/11/15 Exam# [id number] Ordering Dr: Adelaida Fraga DO STUDY: X-RAY [...] FACR at 20:20 EST , Service support [phone], RAD/Chest PA and Lateral IMPRESSION: Normal x-ray examination of the chest. No lingular infiltrate is noted on today's examination Electronically Signed: Stephen Barba MD, FACR at 20:20 EST , Service support [phone], CC: Adelaida Fraga DO Machine Repairer: Signed 11-Apr-2015 Hip min 2 Views Result: Comments: See Note; NOTES: [facility] Imaging Services [address] [place] [address] Verdana 4d Hip min 2 Views MR#: [id number] Acct: [id number] Name: CITLALLI LANDRUM Rep #: [id number] : 1950 64 From: Stephen Barba MD PCP: Adelaida Fraga DO Status: REG CLI Study: Hip min 2 Views Date of Exam: 04/11/15 Exam# [id number] Ordering Dr: Adelaida Fraga DO UDY: X-RAY [...] FACR at 20:19 EST , Service support [phone], RAD/Hip min 2 Views IMPRESSION: Normal x-ray examination of the pelvis and hip. Electronically Signed: Stephen Barba MD, FACR 201 07/23/18 at 20:19 EST , Service support [phone], CC: Adelaida Fraga DO Machine Repairer: Signed 11-Apr-2015 L/S Spine Min 4 Views Result: Comments: See Note; NOTES: [facility] Imaging Services [address] [place] [address]93 Verda 4d L/S Spine Min 4 Views MR#: [id number] Acct: [id number] Name: YUMIKO LANDRUM Rep #: [id number] : 1950 64 From: tSephen Barba MD PCP: Adelaida Fraga DO Status: REG CLI Study: L/S Spine Min 4 Views Date of Exam: 04/11/15 Exam# [id number] Ordering Dr: Susannah Fraga ra, DO STUDY: [...] FACR at 20:20 EST , Service support [phone], RAD/L/S Spine Min 4 Views IMPRESSION: M ild degenerative disc disease at L2-3 and L5-S1. Facet arthrosis at L4-5 and L5-S1. Mild dextroscoliosis. Electronically Signed: Stephen Barba MD, FACR at 20:20 EST Tel , Service support [phone], CC: Adelaida Fraga DO Machine Repairer: Signed 27-Aug-2014 Chest PA and Lateral Result: Comments: See Note; NOTES: [facility] Imaging Services [address] [place] [address] Radiology Report MR#: [id number] Acct: [id number] Name: DOMINICKYUMIKO Rep #: [id number] : 1950 M 63 From: Wilfredo Alvarado MD PCP: Adelaida Fraga DO Status: REG CLI Study: Chest PA and Lateral Date of Exam: 08/27/14 Exam# [id number] Ordering Dr: Adelaida Fraga DO STUDY: X- [...] Wilfredo Alvarado MD at 15:46 EDT Tel [phone], Service support [phone], 0079 RAD/Chest PA and Lateral IMPRESSION: Inc reased markings in the lingular segment of the left upper lobe suggestive of early infiltrate. Followup is recommended. Electronically Signed: Wilfredo Alvarado MD at 15:46 EDT Tel [phone], Service support [phone], CC: Adelaida Fraga DO Machine Repairer: Signed 02-Jul-2013 12 Lead Electrocardiogram Result: Comments: See Note; NOTES: [facility] Cardiovascular Services [address] [place] [address] 8[address] 12 Lead EKG 06/17/131937 MR#: [id number] Acct: [id number] Name: CITLALLI LANDRUM Rep #: [id number] : 1950 62 From: Remigio Lares MD [...] Abnormal ECG Confirmed by GERDA CALVO, REMIGIO ([id number]), editor magazine MADELYN RUBALCAVA ([id number]) on 2013 10:04:35 AM Referred By: Jose Fernando Confirmed By:REMIGIO LARES MD CC: Adelaida byrd DO Date Dictated: 06/17/131937 Date Transcribed: 06/17/131937 Machine Repairer: Signed 30-Jun-2013 Emergency Department Summary Result: Comments: See Note; NOTES: [facility] Medical Records Department [address] [place] [address] Emergency Department Summary MR#: [id number] Acct: [id number] Name: YUMIKO LANDRUM Rep #: [id number] : 1950 62 From: Jose Fernando MD PCP: Adelaida Fraga DO Status: DEP ER DATE OF SERVICE: 06/28/2013 CHIEF COMPLAINT: Chest pain. HISTORY OF PRESENT ILLNESS: The patient states over the past 8 hours, he has had intermittent discomfort in the chest of burning to ache similar to angina. He had an SD, he thinks, back in 2011 when he had a stent placed by Dr. Mariah carr in [facility]. He has been off his blood [...] sensation, cranial nerve function and treatment. [facility] DEPARTMENT COURSE: Portable one-view chest x-ray [...] a 3. He agreed to go to [facility] where his lay up operator is in case he needs another cath and stent. He was stable for transfer. [facility]. Trujillo as receiving tank operator accepted the patient after being advised of all the above through the transfer steam tank operator. He did not want to talk to me. The patient is stable for transfer, with him. DIAGNOSES: 1. Chest pain. 2. Unstable angina. Jose Fernando MD C C: Adelaida Fraga DO T: NTS JOB: [id number] 06/30/13 0021 <Electronically signed by Jose Fernando MD> Date Jose Fernando MD CC: Adelaida Fraga DO Date Dictated: 06/28/13 2255 Date Transcribed: 06/28/132254 Machine Repairer: Signed 28-Jun-2013 Chest 1 View (Portable) Result: Comments: See Note; NOTES: [facility] Imaging Services [address] [place] [address]76 Radiology Report MR#: [id number] Acct: [id number] Name: YUMIKO LANDRUM Brandon Rep #: [id number] : 1950 M 62 From: Wilfredo Alvarado MD PCP: Adelaida Fraga DO Status: DEP ER Study: Chest 1 View (Portable) Date of Exam: 06/28/13 Exam# [id number] Ordering Dr: Jose Fernando MD STUDY: X-RAY [...] Wilfredo Alvarado MD at 9:06 EDT Tel [phone], Service support [phone], CC: Adelaida Fraga DO; Jose Fernando MD Machine Repairer: Signed Immunization Name Dates Details Influenza vaccine, split, 3yrs &>, IM (AFLURIA) on: Nov-2017 Influenza, inj, MDCK, preservative free, q.valent on: 07-Dec-2016 Comments: Site: Lot #: [id number] Family History Unknown Family Member Name Dates [...] Active 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 Status: Active Tobacco use: Former smoker. Status: Active Smoking Status Name Dates Details Former smoker Vital Signs Date Test Result Details :47 Temperature 97.4 f Comments: Method: Temporal Pulse 82 /min Comments: Pattern: Regular Respiration Rate 16 /min Comments: Pattern: Unlabored BP Systolic 122 mm[Hg] Comments: Patient Position: Sitting; Cuff Location: Left Arm; Cuff Size: Standard BP Diastolic 70 mm[Hg] Comments: Patient Position: Sitting; Cuff Location: Left Arm; Cuff Size: Standard Weight 276.125 lb Height 68 in Body Mass Index Calculated 41.98 kg/m2 Body Surface Area Calculated 2.34 m2 :40 Temperature 97.1 f Comments: Method: Temporal [...] 0.00 cm Results Date Description Value Details 87-Qmu-115291:31 CBC W/Diff, Automated Comments: [facility] [address] [place], [place], [phone] Absolute Lymph 1.76 {X10_3/ul} (Normal) Range: 0.83-4.51 [...] 4.6-6.2 WBC 5.7 K/mm3 (Normal) Range: 4.4-11.0 62-Vqt-385301:31 Comprehensive Metabolic Profil Comments: [facility] [address] [place], [place], [address] ; fu 10-16 DF GAP 9 (Normal) [...] A.D.A. criteria.Please note revised GLUCOSE reference range hiqasloft39/02/2018. 34-Nsk-782147:31 Hemoglobin A1c Comments: [facility] [address] [place], [place], [address] HGB A1C 6.0 % (Normal) Range: 4.2-6.3 :31 Lipid Profile Comments: [facility] [address] [place], [place], [phone](617) VLDL 24 mg/dL (Normal) Range: 5-40 LDL [...] 200-240 mg/dL Borderline >240 mg/dL High Risk 03-Gwx-084179:31 PSA,Total - Annual Screen Comments: [facility] [address] [place], [place], [address] PSA,TOT SCREEN 0.50 ng/mL (Normal) Range: 0.00-4.00 Comments: This test was performed using the TPSA assay method for the[facility] chemistry system. Values obtained with differentassay methods cannot be used interchangably.When changing PSA assays in the course of monitoring apatient, additional sequential testing should be carriedout to confirm baseline values. :42 Aspergillus Antibodies Comments: [facility] (refer to report for specific site)refer to report for address and phone number Asp. niger Negative (Normal) Asp. flavus Negative (Normal) Asp. fumigatus Negative (Normal) :42 Immunoglobulin E Comments: [facility] (refer to report for specific site)refer to report for address and phone number IMMUNO E 19 {IU/mL} (Normal) Range: 0-100 :42 Immunoglobulin G Comments: [facility] (refer to report for specific site)refer to report for address and phone number IMMUNO G 702 mg/dL (Normal) Range: 700-1600 Comments: Performed at: - Lab[address] [id number] Director: Joseph Velez MD, Phone: [phone] at: [facility] LabMatthew Ville [address] [id number] Director: Hugo Britt PhD, Phone: [phone] 00-Thy-501142:42 Miscellaneous Lab Comments: Comments: [id number],CLIVE,RTTest(s) Ordered: [id number],TIGER,RT[facility] [address] [place], [address] Procedure MIS Comments: TEST RESULT UNITS REFERENCE INTERVALA. fumigatus #1 Abs NEGATIVE NEGATIVE TESTING PERFORMED AT [facility]. O LAB (Normal) RIGINAL REPORT ON FILE IN LAB CONTAINS ADDITIONAL TEST SITE INFORMATION. TEST 5-Hat-236270:28 Acetylcholine Receptor Comments: Has Patient had Radioactive Injection for X-ray?: [facility]er [facility] for specific site)refer to report for address and phone number MIYA [id number] < 0.03 nmol/L (Normal) Range: 0.00-0.24 Comments: Negative: 0.00 - 0.24 Borderline: 0.25 - 0.40 Positive: > 0.40Performed at: [facility] [id number] Director: Joseph Velez MD, Phone: [phone] 0-Tzf-748394:28 BUN 9 mg/dL (Normal) Comments: [address] [place], [place], [id number] Range: 7-18 5-Iof-242313:28 Serum Creatinine AND GFR Comments: [address] [place], [place], [address] EST GFR - AA 100 mL/min (Normal) Comments: GFR Calc EST GFR 83 mL/min (Normal) Comments: Non- GFR Calc CREAT,SERUM 0.97 mg/dL (Normal) Range: 0.70-1.30 Comments: The validity of the calculated GFR AND GFRAA in patients over70 years has not been determined. Clinical correlation isessential. 21-Crc-459141:13 Culture, Fungus 8482 Comments: [address] [place], [place], [phone] CUF See Note Comments: Cu,Jvjpwb8560 TESTING PERFORMED AT [facility]. ORIGINAL REPORT ON FILE IN LAB CONTAINS ADDITIONAL TEST SITE INFORMATION. (Normal) ORGANISM 1: Barron albicansAmount Growth Growth ORGANISM 2: Penicillium speciesAmount Growth Growth 41-Imx-629475:13 Culture, Sputum Comments: [place] [address] [place], [place], [address] CUSP See Note (Normal) Comments: Gram StainAcceptable Specimen? Yes (<25 Epithelial cells per/lpf) Gram Stain 2+ White Blood Cells 2+ Epithelial cells 4+ Gram positive cocci 4+ Gram positive rods Resp. CultureNo Haemoph ilus, Streptococcus pneumoniae, beta-hemolytic Streptococcus or Staphylococcus aureus isolated. ORGANISM 1: Yeast Like OrganismAmount Growth Rare ORGANISM 2: Mixed FloraAmount Growth 3+ 68-Qco-709547:59 CBC W/Diff, Automated Comments: [facility] [address] [place], [place], [address] Absolute Lymph 1.98 {X10_3/ul} (Normal) Range: 0.83-4.51 [...] 4.6-6.2 WBC 10.8 K/mm3 (Normal) Range: 4.4-11.0 31-Tyn-515558:59 Comprehensive Metabolic Profil Comments: [facility] [address] [place], [place], [address] GAP 10 (Normal) Range: 5-15 CO2 27.0 [...] A.D.A. criteria.Please note revised GLUCOSE reference range oaudjppnw48/02/2018. 85-Eiv-976617:59 Hemoglobin A1c Comments: [facility] [address] [place], [address] HGB A1C 6.2 % (Normal) Range: 4.2-6.3 92-Rwx-205000:59 Lipid Profile Comments: [facility] [address] [place], [place], [address] VLDL 13 mg/dL (Normal) Range: 5-40 LDL [...] 200-240 mg/dL Borderline >240 mg/dL High Risk 20-Pvx-181829:59 Microalb:Creat Ratio,Random UR Comments: [facility] [address] [place], [place], [phone] MALB:CREAT 10.1 {mg/g_CRE} (Normal) MICROALBUMIN,UR 5.6 mg/L (Normal) UR CREAT 55.70 mg/dL (Normal) 3-Ohf-552801:45 Basic Metabolic Profile (BMP) Comments: [facility] [address] [place], [place], [address] GAP 6 (Normal) Range: 5-15 CO2 29.0 [...] Comments: Please note revised GLUCOSE reference range gqedvnmac88/02/2018. 8-Odi-830570:45 Lipid Profile Comments: [facility] [address] [place], [place], [address] VLDL 22 mg/dL (Normal) Range: 5-40 LDL [...] 200-240 mg/dL Borderline >240 mg/dL High Risk 7-Zvj-809883:45 Liver Profile Comments: [facility] [address] [place], [place], [address] D BILI 0.13 mg/dL (Normal) Range: 0.00-0.30 T BILI 0.50 mg/dL (Normal) Range: 0.20-1.00 ALT 27 U/L (Normal) Range: 16-61 ALK P 53 U/L (Normal) Range: 45-117 AST 20 U/L (Normal) Range: 15-37 GLOB 4.3 g/dL (Abnormal) Range: 2.2-4.2 ALB 3.0 g/dL (Abnormal) Range: 3.2-5.0 T PROT 7.3 g/dL (Normal) Range: 6.4-8.2 36-Zka-302077:31 Basic Metabolic Profile (BMP) Comments: [facility] [address] [place], [place], [address] GAP 4 (Abnormal) Range: 5-15 CO2 27.0 [...] A.D.A. criteria.Please note revised GLUCOSE reference range eyhqwsnwe15/02/2018. 17-Uxx-558800:31 CBC-Complete Blood Cnt No Diff Comments: [facility] [address] [facility] [address]. [place], [place], [phone] MPV 8.7 fL (Normal) Range: 6.2-12.0 PLT [...] 4.6-6.2 WBC 9.6 K/mm3 (Normal) Range: 4.4-11.0 93-Vjv-208822:31 Partial Thromboplast Time Comments: [place] [address] [place], [address] PTT 26.1 s (Normal) Range: 24.1-36.2 07-Qgh-355185:31 Prothrombin Time w/INR Comments: [place] [address] [address] [place], [address] INR 0.9 (Normal) PROTIME 12.5 s (Normal) Range: 11.7-14.9 :00 Culture, Fungus 8482 Comments: [place] [address] [place], [address] CUF See Note Comments: Cu,Ntfurb8906 TESTING PERFORMED AT [facility]. ORIGINAL REPORT ON FILE IN LAB CONTAINS ADDITIONAL TEST SITE INFORMATION. (Normal) ORGANISM 1: Barron albicansAmount Growth Growth ORGANISM 2: Penicillium speciesAmount Growth Growth ORGANISM 3: Aspergillus speciesAmount Growth Growth :00 Culture, Sputum Comments: [place] [address] [address] [place], [address] CUSP See Note (Normal) Comments: Gram StainAcceptable Specimen? Yes (<25 Epithelial cells per/lpf) Gram Stain 1+ White Blood Cells Rare Epithelial cells 4+ Gram positive rods 1+ Gram negative rods Resp. Culture Mixed nor mal respiratory ashkan. No Haemophilus, Streptococcus pneumoniae, beta-hemolytic Streptococcus or Staphylococcus aureus isolated. 84-Hnu-862670:00 Culture, Sputum Comments: [place] [address] [address] [place], [place], [address] CUSP See Note (Normal) Comments: Gram StainAcceptable Specimen? Yes (<25 Epithelial cells per/lpf) Gram Stain 1+ White Blood Cells Rare Epithelial cells 3+ Gram positive cocci Resp. CultureMixed normal respiratory ashkan. No Haemophilus, Streptococcus pneumoniae, beta-hemolytic Streptococcus or Staphylococcus aureus isolated. 95-Srx-348434:44 TESTOSTERONE FREE (85748) Comments: PATIENT NOT FASTINGPERFORMED BY: [facility] SystemZaranga[address] [id number] BY: [address] [id number] Free Testosterone(Direct) 2.6 pg/mL (Abnormal) Range: 6.6-18.1 88-Erp-096889:44 HEPATITIS C ANTIBODY Comments: PATIENT NOT FASTINGPERFORMED BY: [address] [id number] BY: [address] [id number] ([address]) Hep C Virus Ab 0.1 {s/co_ratio} (Normal) Range: 0.0-0.9 Comments: Negative: < 0.8 Indeterminate: 0.8 - 0.9 Positive: > 0.9 . The CDC recommends that a positive HCV antibody result be followed up with a HCV Nucleic Acid Amplification test (976475). 84-Hdc-858162:44 CBC W/AUTO DIFF WBC Comments: PATIENT NOT FASTINGPERFORMED BY: [address] [id number] BY: [address] [id number] (17269) Immature Grans (Abs) 0.0 {x10E3/uL} (Normal) Range: [...] 4.14-5.80 WBC 6.1 {x10E3/uL} (Normal) Range: 3.4-10.8 44-Hxf-654046:44 METABOLIC PANEL, Comments: PATIENT NOT FASTINGPERFORMED BY: CB [facility] Xkeygb0041 [facility] [id number] BY: BN [facility] Kalfgejpzb9890 [facility] [id number] COMPREHENSIVE (31959) ALT (SGPT) 17 [iU]/L (Normal) Range: 0-44 [...] 8-27 Glucose 102 mg/dL (Abnormal) Range: 65-99 :15 HgA1C , Office (88091) HgA1C , Office 5.7 % (Normal) Range: 4.6 - 7.1 :30 CBC W/Diff, Automated Comments: [facility] [address] [place], [place], [address] Absolute Lymph 1.76 {X10_3/ul} (Normal) Range: 0.83-4.51 [...] 4.6-6.2 WBC 6.7 K/mm3 (Normal) Range: 4.4-11.0 41-Yog-820025:30 Comprehensive Metabolic Profil Comments: [facility] [address] [place], [address] GAP 9 (Normal) Range: 5-15 CO2 25.0 [...] 7-18 GLU 78 mg/dL (Normal) Range: 70-110 48-Pqo-858035:30 Culture, Urine Comments: [facility] [address] [place], [address] CUUR See Note (Normal) Comments: Urine CultureCulture exhibits no growth. 32-Lgb-127165:30 Lipid Profile Comments: [facility] [address] [place], [address] VLDL 19 mg/dL (Normal) Range: 5-40 LDL [...] 200-240 mg/dL Borderline >240 mg/dL High Risk 94-Lqm-624060:10 Rapid Strep Test, Office (13428) Comments: Negative Rapid Strep Test, Office Negative (Normal) 76-Onz-51381:51 THROAT CULTURE (00973) Comments: PATIENT NOT FASTINGPERFORMED BY: [employer] [facility] [id number] Information: SRC: Result 1 RRF (Normal) Comments: Routine respiratory ashkan Upper Respiratory Culture Final report (Normal) 79-Bcy-969554:02 Rapid Flu (06744 x 2) Comments: Negative Influenza A Ag Negative (Normal) :45 URINE WARREN CULTURE-IDENTIFICATN Comments: PERFORMED BY: [employer] [facility] [id number] Information: SRC: (13515) Result 1 NG36 (Normal) Comments: No growth in 36 - 48 hours. Urine Culture,Comprehensive Final report (Normal) 19-Nxj-043871:02 Urinalysis, Office (73811) UA - LEUKOCYTE ESTERASE Negative (Normal) UA - NITRITE Negative (Normal) URINE UROBILINGN MASSIEL TIMED Normal mg/dL (Normal) UA - PROTEIN Negative mg/dL (Normal) UA - PH 7 (Normal) UA - BLOOD Negative (Normal) UA - SPECIFIC GRAVITY 1.020 (Normal) UA - KETONES Negative mg/dL (Normal) UA - BILIRUBIN Negative (Normal) UA - GLUCOSE Negative (Normal) 75-Pto-179026:22 CBC W/Diff, Automated Comments: [facility] [address] [place], [address] Absolute Lymph 1.50 {X10_3/ul} (Normal) Range: 0.83-4.51 [...] 4.6-6.2 WBC 6.2 K/mm3 (Normal) Range: 4.4-11.0 39-Zqv-537937:22 Comprehensive Metabolic Profil Comments: [facility] [address] [place], [address] ; will review opn 11/10 [...] 7-18 GLU 104 mg/dL (Normal) Range: 70-110 73-Zrb-556086:22 Hemoglobin A1c Comments: [facility] [address]bos[address] [place], [place], [address] HGB A1C 5.6 % (Normal) Range: 4.2-6.3 90-Thd-991946:22 Immunofixation, Serum Comments: [facility] (refer to report for specific site)refer to report for address and phone number PAULA RESULT,S Comment (Normal) Comments: No monoclonality detected. IMMUNOGL M 53 mg/dL (Normal) Range: 20-172 IMMUNO A 169 mg/dL (Normal) Range: 61-437 IMMUNO G 692 mg/dL (Abnormal) Range: 700-1600 81-Att-368502:22 [place] [employer] Chains Comments: [facility] (refer to report for specific site)refer to report for address and phone number KAPPA/LAMBDA % 1.17 (Normal) Range: 0.26-1.65 Comments: Performed at: [facility] Lab[address] [id number] Director: Hugo Britt PhD, Phone: [phone] FR LAMBDA LT CH 12.3 mg/L (Normal) Range: 5.7-26.3 FR KAPPA LT CHN 14.4 mg/L (Normal) Range: 3.3-19.4 70-Xrh-108369:22 Lipid Profile Comments: [facility] [address] [place], [address] VLDL 20 mg/dL (Normal) Range: [...] 200-240 mg/dL Borderline >240 mg/dL High Risk 95-Gpa-492116:22 Microalb:Creat Ratio,Random UR Comments: [facility] [address] [place], [address] ; will review on 11/10 MALB:CREAT 5.6 {mg/g_CRE} (Normal) MICROALBUMIN,UR 7.2 mg/L (Normal) UR CREAT 128.00 mg/dL (Normal) 34-Rkl-018211:22 PSA,Total - Annual Screen Comments: [facility] [address] [place], [place], [address] PSA,TOT SCREEN 0.63 ng/mL (Normal) Range: 0.00-4.00 Comments: This test was performed using the TPSA assay method for the[employer] chemistry system. Values obtained with differentassay methods cannot be used interchangably.When changing PSA assays in the course of monitoring apatient, additional sequential testing should be carriedout to confirm baseline values. 24-Far-633873:07 CBC W/Diff, Automated Comments: [facility] [address] [place], [place], [address] Absolute Lymph 1.42 {X10_3/ul} (Normal) Range: 0.83-4.51 [...] Range: 4.4-11.0 :07 Comprehensive Metabolic Profil Comments: [facility] [address] [place], [place], [address] GAP 8 (Normal) Range: 5-15 CO2 27.0 [...] 7-18 GLU 104 mg/dL (Normal) Range: 70-110 :07 Hemoglobin A1c Comments: [facility] [facility] X[address]wh[address]fip[address] [place], [place], [id number] HGB A1C 5.6 % (Normal) Range: 4.2-6.3 :07 PAULA + Protein Elect, Serum Comments: Is Patient Fasting? [facility] (refer to report for specific site)refer to report for address and phone number NOTE: Comment (Normal) Comments: Protein electrophoresis scan will follow via computer,mail, or rest room maid delivery.Performed at: [facility] [address] [id number] Director: Hugo Britt PhD, Phone: [phone] PAULA RESULT,S Comment (Normal) Comments: No monoclonality detected. A/G RATIO 1.2 (Normal) Range: 0.7-1.7 GLOBULIN, TOTAL 3.0 g/dL (Normal) Range: 2.2-3.9 M-SPIKE g/dL (Normal) Comments: Not Observed GAMMA GLOBULIN 0.7 g/dL (Normal) Range: 0.4-1.8 BETA GLOBULIN 1.1 g/dL (Normal) Range: 0.7-1.3 VKSPL-3-YDXP 0.8 g/dL (Normal) Range: 0.4-1.0 AQGYW-8-TIVN 0.3 g/dL (Normal) Range: 0.0-0.4 ALBUMIN 3.3 g/dL (Normal) Range: 2.9-4.4 IMMUNOGL M 53 mg/dL (Normal) Range: 20-172 IMMUNO A 177 mg/dL (Normal) Range: 61-437 IMMUNO G 761 mg/dL (Normal) Range: 700-1600 PROTEIN,TOTAL 6.3 g/dL (Normal) Range: 6.0-8.5 :07 Lipid Profile Comments: [facility] [address]et[address] [place], [address] VLDL 21 mg/dL (Normal) Range: 5-40 LDL [...] 200-240 mg/dL Borderline >240 mg/dL High Risk 16-Dbh-884920:01 CBC W/Diff, Automated Comments: [facility] Xotfaaciqh[address] Thomas. [place], [place], [address] Absolute Lymph 1.62 {X10_3/ul} (Normal) Range: 0.83-4.51 [...] 4.6-6.2 WBC 7.6 K/mm3 (Normal) Range: 4.4-11.0 39-Nms-733149:01 Comprehensive Metabolic Profil Comments: [facility] Hgtbdqlogd0374 [place], [address] ; has apt today GAP 7 (Normal) [...] 7-18 GLU 96 mg/dL (Normal) Range: 70-110 99-Zow-579759:01 Lipid Profile Comments: [facility] [address] [place], [address] VLDL 11 mg/dL (Normal) Range: 5-40 LDL [...] 200-240 mg/dL Borderline >240 mg/dL High Risk 29-Iff-130389:01 Lipoprotein A 369 nmol/L (Abnormal) Comments: [facility] [...] genetic factors on Lp(a) across ethnicities.Performed at: [facility] [address] [id number] Director: Hugo Britt PhD, Phone: [phone] 79-Noj-505029:56 HgA1C , Office (35292) HgA1C , Office 5.6 % (Normal) Range: 4.6 - 7.1 8-Lxj-895166:19 ANCA Panel Comments: PATIENT NOT FASTINGPERFORMED BY: [employer] [id number] BY: [employer] [id number] Atypical pANCA <1:20 {titer} Comments: The atypical [...] follow up testing ofpositive sera with both OH-3 and MPO-ANCA enzyme immunoassays. Asmany as 5% serum samp les are positive only by EIA.Ref. AM J Clin Pathol 1999;111:507-513. Cytoplasmic (C-ANCA) <1:20 {titer} (Normal) Antiproteinase 3 (OH-3) Abs <3.5 U/mL (Normal) Range: 0.0-3.5 Antimyeloperoxidase (MPO) Abs <9.0 U/mL (Normal) Range: 0.0-9.0 :19 Antinuclear Antibodies Comments: PATIENT NOT FASTINGPERFORMED BY: [address] [id number] BY: ImagimodAlbuquerque Indian Health CenterApviax2186 Prater Roadblin [place] [id number] Direct JOHN Direct Negative (Normal) :1 C-Reactive Protein, 2.1 mg/L (Normal) Comments: PATIENT NOT FASTINGPERFORMED BY: [address] [id number] BY: [employer] Jbgldp6990 Prater RoadDublin [place] [id number] Quant Range: 0.0-4.9 :19 Rheumatoid Arthritis Comments: PATIENT NOT FASTINGPERFORMED BY: [address] [id number] BY: [employer] Ybvatd2224 [address] [facility] Hospitalbl[facility] [place] [id number] Factor RA Latex Turbid. 7.8 {IU/mL} Range: 0.0-13.9 (Normal) Sedimentation 8 mm/h (Normal) Comments: PATIENT NOT FASTINGPERFORMED BY: [address] [id number] BY: MoasisMercy Hospital SpringfieldYuatps2614 Prater RoadDublin [place] [id number] :19 Rate-Westergren Range: 0-30 Thyroid Peroxidase (TPO) 8 {IU/mL} (Normal) Comments: PATIENT NOT FASTINGPERFORMED BY: [address] [id number] BY: MoasisMercy Hospital SpringfieldJsbmuk2988 Prater RoadDublin [place] [id number] :19 Ab Range: 0-34 2-Dei-940361:19 Thyroxine (T4) Free, Comments: PATIENT NOT FASTINGPERFORMED BY: [address] [id number] BY: [facility]6370 [facility] [id number] Direct, S T4,Free(Direct) 1.11 ng/dL Range: 0.82-1.77 (Normal) Triiodothyronine,Free,Seru 2.5 pg/mL (Normal) Comments: PATIENT NOT FASTINGPERFORMED BY: [address] [id number] BY: [facility]6370 [facility] [id number] 2:19 m Range: 2.0-4.4 TSH 3.450 {uIU/mL} Comments: PATIENT NOT FASTINGPERFORMED BY: [address] [id number] BY: [facility]6370 [facility] [id number] 2:19 (Normal) Range: 0.450-4.500 6-Xvv-855439:30 Pathology Report Comments: PERFORMED BY: [facility] Cyto Qrxft30902 [facility] [id number] Information: [id number] See MATER Comments: Material submitted: .FOREHEAD SHAVE [...] IN CASSETTE(S) A./CORCOR/CORPa thologist provided ICD-10:D48.5, L90.9CPT .176132 39-Utx-69885:22 TESTOSTERONE FREE (22746) Comments: PATIENT WAS FASTINGPERFORMED BY: [employer] [facility] [id number] BY: [facility] [id number] Free Testosterone(Direct) 2.5 pg/mL (Abnormal) Range: 6.6-18.1 73-Ovl-79866:22 VITAMIN B-12 (CYANOCOBALAMIN) Comments: PATIENT WAS FASTINGPERFORMED BY: [employer] [facility] [id number] BY: Mo[address] [id number] (26867) Vitamin B12 638 pg/mL (Normal) Range: 211-946 :22 CBC W/AUTO DIFF WBC Comments: PATIENT WAS FASTINGPERFORMED BY: [facility]CoEast [facility] Medical CenterCzfbah2357 [facility] [id number] BY: LabCoDavid [place] [address] [facility] [id number] Inf ormation: NURSE DRAW (43253) Immature Grans (Abs) 0.0 {x10E3/uL} (Normal) Range: [...] 4.14-5.80 WBC 7.3 {x10E3/uL} (Normal) Range: 3.4-10.8 :22 METABOLIC PANEL, Comments: PATIENT WAS FASTINGPERFORMED BY: [facility]CoEast Orange VA Medical CenterVpfqtq6029 [facility] [id number] BY: [facility] [address] [id number] COMPREHENSIVE (37708) ALT (SGPT) 12 [iU]/L (Normal) Range: 0-44 [...] Glucose, Serum 100 mg/dL (Abnormal) Range: 65-99 :52 CBC W/Diff, Automated Comments: [facility] [address] [place], [place], [address] Absolute Lymph 1.73 {X10_3/ul} (Normal) Range: 0.83-4.51 [...] 4.6-6.2 WBC 6.0 K/mm3 (Normal) Range: 4.4-11.0 07-Fas-31063:52 Comprehensive Metabolic Profil Comments: [facility] Uehorlluj[address] Andrea [place], [place], [address] GAP 6 (Normal) Range: 5-15 CO2 26.0 [...] (Normal) Range: 70-110 :52 Hemoglobin A1c Comments: [facility] Xusyjubzgv1717 [facility]. [place], [place], [address] HGB A1C 5.6 % (Normal) Range: 4.2-6.3 :52 Lipid Profile Comments: [facility] Ifpyavrlui0233 [facility]. [place], [place], [address] VLDL 21 mg/dL (Normal) Range: 5-40 LDL [...] High Risk :52 Microalb:Creat Ratio,Random UR Comments: [facility] Y[address]zwvpuxf[address]. [place], [place], [address] MALB:CREAT 9.1 {mg/g_CRE} (Normal) MICROALBUMIN,UR 9.0 mg/L (Normal) UR CREAT 99.50 mg/dL (Normal) :52 PSA,Total - Annual Screen Comments: [facility] Lxhddhxerm[address] [place], [place], [address] PSA,TOT SCREEN 0.51 ng/mL (Normal) Range: 0.00-4.00 Comments: This test was performed using the TPSA assay method for [employer] chemistry system. Values obtained with differentassay methods cannot be used interchangably.When changing PSA assays in the course of monitoring apatient, additional sequential testing should be carriedout to confirm baseline values. COLON BIOPSY (CHOOSE See Note (Normal) Comments: [facility] Facjdctnkq27[address] [place], [address] :45 SITE) Comments: Patient: YUMIKO LANDRUM : 1950 (64/M) Acct Num: [id number] Phys: Hugo Bullock Unit Num: [id number] Loc: LABSPEC Specimen: [id number] Received: 09/11/151646 Spec Type: C OLON BX [...] in one cassette. / IRON:momo 09/11 TC:1 CPT:60862 x2 HEADER OPERATION: Colonoscopy with biopsy PRE-OP DIAGNOSIS: Screening/polyp TISSUE SUBMITTED: A - Polyp cecum, R/O adenoma, B - Polyp sigmoid, R/O adenoma MICROSCOP IC DESCRIPTION Slides are reviewed. MICROSCOPIC DIAGNOSIS A. Polyp cecum, biopsy: Fragments of tubular adenoma. B. Polyp sigmoid, biopsy: Fragments of tubular adenoma. SJ:momo 09/15/15 Signed Pamella Son 09/15/15 <signature on file> 69-Vjg-609588:37 CBC W/Diff, Automated Comments: [facility] Eecyvyhfbl[address] [place], [address] ; noon-emergent till apt Absolute Lymph 1.39 [...] 4.6-6.2 WBC 6.5 K/mm3 (Normal) Range: 4.4-11.0 43-Xtp-537603:37 Comprehensive Metabolic Profil Comments: [facility] Subqhkgqbg[address]. [place], [place], [address] GAP 6 (Normal) Range: 5-15 CO2 27.0 [...] <126 mg/dLsuggests IMPAIRED HOMEOSTASIS per A.D.A. criteria. :37 Hemoglobin A1c Comments: [facility] Dhfkmgruie55[address] [place], [place], [address] HGB A1C 5.6 % (Normal) Range: 4.2-6.3 44-Ufa-660235:37 Lipid Profile Comments: [facility] Aenlscwklh2268 [place], [address] VLDL 17 mg/dL (Normal) Range: 5-40 LDL [...] 200-240 mg/dL Borderline >240 mg/dL High Risk 0-Hxv-293360:12 Factor II, DNA Analysis Comments: [facility] (refer to report for specific site)refer to report for address and phone number COMMENT Comment (Normal) Comments: Genetic Counselors are available for health care providersto discuss results at [phone] ([phone]).Methodology:DNA analysis of the Factor II gene was performed by PCRamplification followed by restric tion analysis. Thediagnostic sensitivity is >99% for both. All the tests mustbe combined with clinical information for the most accurateinterpretation. Molecular-based testing is highly accurate,but as in any laboratory test, diagnostic errors may occur.Poort SR, et al. Blood. 1996; 88:6064-4317.Diallo EA. Circulation. 2004; 110:e15-e18.Bobby I, et al. Arterioscler Thromb Vasc Biol. 1999;19:700 -703.Lance Shea, Chente Cooper, Shakeel Delgado, Lorena Beal, Xiomara Easley, PhDKelly Benjamin, PhDPerformed at: TG - [facility] HNQ4365 [place], [place] [id number] Di villa: Vilma Butterfield MD, Phone: [phone] FACTOR II,DNA Comment (Normal) Comments: NEGATIVENo mutation identified.Comment:A point mutation ([id number]) in the factor II (prothrombin)gene is the [...] individual mutations. This assaydetects only the prothrombin C40905A mutation and doesnot measure genetic abnormalities elsewhere i n thegenome. Other thrombotic risk factors may be pursuedthrough systematic clinical laboratory analysis. Thesefactors include the R506Q (Leiden) mutation in the Factor Vgene, plasma homocysteine levels , as well as testing fordeficiencies of antithrombin III, protein C and protein S. 35-Oub-30019:42 Miscellaneous Comments: Comments: [id number],PLASMA,BLUETest(s) Ordered: [id number],PLASMA,[facility] Rlmduccxzj6119 Andrea [place], [place], [address] Lab Procedure MISC Comments: TEST RESULT UNITS REFERENCE INTERVALAntithrombin III, Func/ImmunolAntithrombin Activity 97 % 75 - 135Antithrombin Antigen 97 % 75 - 130 LAB (Normal) TESTING PERFORMED AT [facility]. ORIGINAL REPORT ON FILE IN LAB CONTAINS ADDITIONAL TEST SITE INFORMATION. TEST 1 Throm 15.9 Comments: [facility] (refer to report for specific site)refer to report for address and phone number 9 bin {sec} Range: 0.0-20.0 - Time (Normal) Comments: Performed at: [facility] Lab[address] [id number] Director: Joseph Velez MD, Phone: [phone] F e b - 2 0 1 6 9 : 4 2 65-Axf-98806:34 CBC W/Diff, Automated Comments: [facility] Twrwalbebp2961 [place], [address] Absolute Lymph 1.34 {X10_3/ul} (Normal) Range: 0.83-4.51 [...] (Normal) Range: 4.4-11.0 :34 Comprehensive Comments: Comments: [id number],SPENCER,[facility] Xahqtjahsc9[address] [place], [place], [address] ; apt today Metabolic Profil GAP 8 [...] for health careproviders to discuss results at [phone]).Methodology:DNA analysis of the Factor V gene was performed by allele-specific PCR. The diagno stic sensitivity and specificity is>99% for both. Molecular-based testing is highly accurate,but as in any laboratory test, diagnostic errors may occur.All test results must be combined with clinical informationfor the most accurate interpretation.References:Rodrick Disla (1996). Clin Lab Med 16:169-186.Lance Shea, PhDRtuhie Cooper, PhDAnahy Delgado, PhDMadelyn Beal, PhDBette lugo, PhDKelly Benjamin, PhDPerformed at: [address] [id number] Director: Joseph Velez MD, Phone: [phone] at: [facility] EXF8482 [place], [place] [id number] Director: Vilma Butterfield MD, Phone: [phone] FACTOR V LEIDEN Comment (Normal) Comments: Result: [...] in the workup for venous thrombosis include [id number] mutation in the factor II (prothrombin) gene,protein S and C deficiency, and antithrombin deficiencies.Anticardiolipin antibody and lupus anticoagu lant analysismay be appropriate for certain patients, as well ashomocysteine levels.Contact your local [facility] for information on how to orderadditional testing if desired. 54-Eld-31490:34 Hemoglobin A1c Comments: [facility] Mcynfhsnkn7875 Andrea [place], [place], [address] HGB A1C 5.6 % (Normal) Range: 4.2-6.3 :34 Lipid Profile Comments: Comments: [id number],[facility] HOSPITALDERICKTrinity Health System Xromeggzsz7552 [place], [address] VLDL 17 mg/dL (Normal) Range: [...] High Risk :34 Miscellaneous Lab Comments: Comments: [id number],ESTEBANST. MARY'S HOSPITALDERICKTest(s) Ordered: [id number]. Anthony's Hospital Mckjdvndvf5091 [address] [place], [place], [address] Procedure MISC Comments: TEST RESULT UNITS REFERENCE [...] anticoagulant is not de tected. aCL and A4KH1vgfxwyrbvu are normal.ANTIPHOSPHOLIPID SYNDROME ASSESSMENT SUMMARY-No evidence of a lupus anticoagulant, B2GP1 or aCLantibodies. As antibody titers may fluctuate with time,repeat te sting may be indicated if antiphospholipid syndromeis suspected.ANTIPHOSPHOLIPID SYNDROME ASSESSMENT DEFINITIONS-aCL- anticardiolipin (antibodies to cardiolipin); L1UW6-ufctmstows to Beta-2 Glycoprotein 1; LA- lupus anticoagulant(which is identified with the dRVVT and/or hexagonalphospholipid neutralization assays); aPL- antibodies toprotein/phospholipid complexes such as LA, aCL, and V8JV6ovbilwrcjd; APS- antiphospholipid syndrome; DTI-directthrombin inhibitors.-TERRAZZO WORKER HELPER:For questions regarding panel interpretation, please contactHalle Arrington M.D. ([place]) or Yogi Olvera M.D. at[facility] at . DISCLAIMERThese assessments and interpretations are provided as aconvenience in support of the physician-patient relationshipand are not intended to replace the physician's clinicaljudgment. They are derived from national guidelines inaddition to other evidence and expert opinion. The clinicianshould consider this information within the context ofclinical opinion and the individual patient.SEE GUIDANCE FOR ANTIPHOSPHOLIPID SYNDROME ASSESSMENT:(1) Shaniqua V et al. J Thromb Haemost. 2009; 7(10):4129-1734.(2) Tyrone S et al. J Thromb H aemost. 2006;4(2):295-306.(3) Keith DA et al. Blood. 2007;110(9): 8608-7893. TESTING PERFORMED AT [facility]. ORIGINAL REPORT ON FILE IN LAB [facility] INS ADDITIONAL TEST SITE INFORMATION. :34 Protein [...] Range: 58-150 :54 CBC W/Diff, Automated Comments: [facility] Gjfjolcbse79[address] [place], [place], [address] Absolute Lymph 1.61 {X10_3/ul} (Normal) Range: 0.83-4.51 [...] 4.6-6.2 WBC 7.1 K/mm3 (Normal) Range: 4.4-11.0 :54 Comprehensive Metabolic Profil Comments: [facility] Jjbuveucji5684 [address] [place], [place], [address] GAP 7 (Normal) Range: 5-15 CO2 26.0 [...] (Normal) Range: 70-110 :54 Lipid Profile Comments: [facility] Shytjplkpp2920 [address]. [place], [place], [address] ; apt today VLDL 19 mg/dL (Normal) [...] :55 Comprehensive Metabolic Profil Comments: Test performed at:[facility] Vtscchdifo9472 [address] [place], [place] [address] GAP 7 (Normal) Range: 5-15 CO2 24.0 [...] 70-110 :55 Hemoglobin A1c Comments: Test performed at:[facility] [address] [place] [address] HGB A1C 6.0 % (Normal) Range: 4.2-6.3 :55 Lipid Profile Comments: Test performed at:[facility] V[address] [place] [address] VLDL 17 mg/dL (Normal) Range: 5-40 [...] 200-240 mg/dL Borderline >240 mg/dL High Risk 59-Ltd-972204:49 Anti-dsDNA Ab Comments: ADDED PER VERBAL ORDER - FAXED ORDER TO FOLLOWSpecimen Comment: A duplicate report has been generated due to demographicSpecimen Comment: updates.Test performed at:[facility] Laboratory1 [address] [place] [address] dsDNA AB 12 {IU/mL} (Abnormal) Range: 0-9 Comments: Negative <5 Equivocal 5 - 9 Positive >9; ADDENDA: non-emergent because has apt today to discuss. 32-Nne-531325:49 ANTINUCLEAR ANTIBODIES DIRECT Comments: Test performed at:[facility] Xrgcfskrko9900 [facility] [place] [address] JOHN-DIRECT Positive (Abnormal) Comments: Performed at: - [facility]CoJohn[facility] [place] [id number] Director: Reno Yanes PhD, Phone: [phone] 33-Wob-261777:49 CBC W/Diff, Automated Comments: Test performed at:[facility] Wpvgozoecp2094 [facility] [address] Absolute Lymph 1.22 {X10_3/ul} (Normal) [...] 4.6-6.2 WBC 4.9 K/mm3 (Normal) Range: 4.4-11.0 76-Imh-386880:49 Comprehensive Metabolic Profil Comments: Test performed at:[facility] Lzzbmymdgg4762 [address] [place], [place] [address] GAP 6 (Normal) Range: 5-15 CO2 27.0 [...] 7-18 GLU 104 mg/dL (Normal) Range: 70-110 74-Jxp-179605:49 CRP Comments: Test performed at:[facility] [address] [place] [address] C-REACTIVE PROT < 2.90 mg/L (Normal) Range: 0.0-3.0 Comments: C-Reactive Protein (CRP) provides useful information for thediagnosis, therapy and monitoring of inflammatory processesand associated diseases. For the evaluation of Relative Riskfor Cardiovascular Dise ase, a High Sensitivity CRP (HSCRP)should be ordered. 83-Xrt-527626:49 Culture, Urine Comments: Test performed at:[facility] [address] [place] [address] CUUR See Note (Normal) Comments: Urine CultureCulture exhibits no growth.; ADDENDA: Pt has apt today, will discuss then 27-Ssv-436038:49 Erythrocyte Sed Rate Comments: Test performed at:[facility] Corkgfjzsw2339 [facility] [place] [address] SED RATE 21 mm/h (Abnormal) Range: 0-20 67-Eyo-262244:49 Hemoglobin A1c Comments: Test performed at:[facility] [address] [place] [address] HGB A1C 5.8 % (Normal) Range: 4.2-6.3 96-Ehp-159838:49 Lipid Profile Comments: Test performed at:[facility] Tw[address]uwuphl[address] [facility] [address] VLDL 8 mg/dL (Normal) Range: [...] 200-240 mg/dL Borderline >240 mg/dL High Risk 86-Jqk-072187:49 Microalb:Creat Ratio,Random UR Comments: Test performed at:[facility] [address] [place] [address] MALB:CREAT 12.2 {mg/g_CRE} (Normal) MICROALBUMIN,UR 17.2 mg/L (Normal) UR CREAT 140.0 mg/dL (Normal) 12-Ivl-667022:49 PSA,Total - Annual Screen Comments: Test performed at:[place] [address] PSA,TOT SCREEN 0.47 ng/mL (Normal) Range: 0.00-4.00 Comments: This test was performed using the TPSA assay method for [employer] chemistry system. Values obtained with differentassay methods cannot be used interchangably.When changing PSA assays in the course of monitoring apatient, additional sequential testing should be carriedout to confirm baseline values. 75-Osj-226769:49 Thyroid Stim Hormone (TSH) Comments: Test performed at:[facility] [address] [place] [address] TSH 1.60 {uIU/mL} (Normal) Range: 0.358-3.74 75-Rby-775546:49 Urinalysis, Complete Comments: How was Urine Obtained? Urine, RandomTest performed at:[facility] Skftfuh[address] [place] [address] MUCUS, URINE 0 SEEN {/hpf} (Normal) BACTERIA [...] (Normal) CLARITY Clear (Normal) COLOR Yellow (Normal) 04-Plk-254433:49 Urinalysis, Complete Comments: How was Urine Obtained? Urine, RandomTest performed at:[facility] [address] [place], [place] [address] MUCUS, URINE 2+ {/hpf} (Normal) BACTERIA 1+ [...] (Normal) CLARITY Clear (Normal) COLOR Yellow (Normal) 34-Yvh-175180:07 Comprehensive Metabolic Profil Comments: Test performed at:[facility] [address] [place] [address] GAP 6 (Normal) Range: 5-15 CO2 28.0 [...] 7-18 GLU 108 mg/dL (Normal) Range: 70-110 94-Azd-557118:07 CPK Total, Creatine Kinase Comments: Test performed at:[facility] Qtospdtpbx6722 [place] [address] CPK TOTAL 91 U/L (Normal) Range: 39-308 65-Qpo-082232:56 Rapid Flu (69699 x 2) Influenza A Ag negative (Normal) 0-Ncn-052407:28 URINE WARREN CULTURE-MASSIEL COL Comments: PATIENT NOT FASTINGPERFORMED BY: [facility] Bxgiub2052 [facility] [id number] Information: SRC:UR [id number] COUNT (33285) Result 1 ECV (Abnormal) Comments: Escherichia coli, [...] R Urine Final report Culture,Comprehensi (Abnormal) ve 2-Rbs-335750:58 Urinalysis, Office (99388) UA - LEUKOCYTE ESTERASE Small (Normal) UA - NITRITE Negative (Normal) URINE UROBILINGN MASSIEL TIMED 2 mg/dL (Normal) UA - PROTEIN 30 mg/dL (Normal) UA - PH 6.0 (Normal) Comments: 5.5 UA - BLOOD Hemolyzed Small (Normal) UA - SPECIFIC GRAVITY 1.030 (Abnormal) UA - KETONES Negative mg/dL (Normal) UA - BILIRUBIN Small (Normal) UA - GLUCOSE Negative (Normal) 2-Ojl-177016:41 URINE WARREN CULTURE-MASSIEL COL Comments: PATIENT NOT FASTINGPERFORMED BY: [facility] Tgviza3134 [facility] [id number] Information: SRC: URINE COUNT (97464) Result 1 ECV (Abnormal) Comments: Escherichia coli, [...] R Urine Final report Culture,Comprehensi (Abnormal) ve 7-Vky-883739:27 Urinalysis, Office (17023) UA - LEUKOCYTE ESTERASE Trace (Normal) UA - NITRITE Negative (Normal) URINE UROBILINGN MASSIEL TIMED 2 mg/dL (Normal) UA - PROTEIN Negative mg/dL (Normal) UA - PH 6.0 (Normal) UA - BLOOD Negative (Normal) UA - SPECIFIC GRAVITY 1.010 (Normal) UA - KETONES Negative mg/dL (Normal) UA - BILIRUBIN Negative (Normal) UA - GLUCOSE Negative (Normal) 9-Qwa-408805:30 HgA1C , Office (57981) HgA1C , Office 5.7 % (Normal) Range: 4.6 - 7.1 9-End-946068:10 URINE WARREN CULTURE-MASSIEL COL Comments: PATIENT NOT FASTINGPERFORMED BY: BOBBI [facility] Qixhvy2297 Josi JonesCritical Access Hospitalluisa [place] [id number] Information: SRC:ILIANA [id number] COUNT (23858) Result 1 NG36 (Normal) Comments: No growth [...] 103 mg/dL (Normal) Range: 70-110 :58 CUUR UR Culture exhibits no growth. (Normal) :58 LIPID HDL 40 mg/dL (Normal) Comments: Reference RangeHDL <40 mg/dL Low HDL CholesterolHDL >or= 60 mg/dL High HDL Cholesterol LDL 91 mg/dL (Normal) Range: 0-130 VLDL 24 mg/dL (Normal) Range: 5-40 CHOL 155 mg/dL (Normal) Comments: <200 mg/dL Agtqugmsq332-464 mg/dL Borderline>240 mg/dL High Risk TRIG 121 [...] (Normal) UCLAR Clear (Normal) UCOL Yellow (Normal) 95-Jah-445157:20 CUUR URC See Note (Normal) Comments: ESBL+ [...] (NF) indicates non-formulary drug at [facility]. Approval by Infectious DiseaseSpecialist required before non-formulary drugs may beordered and/or dispensed. 58-Hlv-340106:20 UA Comments: How was Urine Obtained? CLEAN CATCH ANGE 500 /ul (Abnormal) MICA Negative (Normal) UOB 25 /ul (Abnormal) LEESA 6.0 (Normal) Range: 5.0 - 8.0 uPROTU 30 mg/dL (Abnormal) UROBU 1 mg/dL (Abnormal) KETU Negative mg/dL (Normal) SGU 1.015 (Normal) Range: 1.002-1.030 BILIU Negative mg/dL (Normal) GLUR Normal mg/dL (Normal) UCLAR Cloudy (Normal) UCOL Yellow (Normal) :27 A1C 5.6 % (Normal) Range: 4.2-6.3 : [...] 4.6-6.2 WBC 6.4 K/mm3 (Normal) Range: 4.4-11.0 :27 CUUR URC Culture exhibits no growth. (Normal) :27 EBGM EBNA 81.6 U/mL (Abnormal) Range: 0.0-17.9 Comments: Negative <18.0Equivocal 18.0 - 21.9Positive >21.9 tEBINT Comment (Normal) Comments: EBV Interpretation ChartInterpretation EBV-IgM VCA-IgG EBNA-IgG EA(D)-IgGEBV Seronegative - - - -Early Phase + - - -Acute Primary + + - +or-InfectionConvalescence/Past - + + +or-InfectionReactivated +or- + + +Infection+ Antibody Present - Antibody Absen tPerformed at: [facility] [address] [id number] Director: Melquiades Hector MD, Phone: [phone] EBEAG <9.0 U/mL (Normal) Range: 0.0-8.9 Comments: Negative < 9.0Equivocal 9.0 - 10.9Positive >10.9 EBVG 315.0 U/mL (Abnormal) Range: 0.0-17.9 Comments: Negative <18.0Equivocal 18.0 - 21.9Positive >21.9 EBVM < 36.0 U/mL (Normal) Range: 0.0-35.9 Comments: Negative <36.0Equivocal 36.0 - 43.9Positive >43.9 :27 FE 78 ug/dL (Normal) Range: 65-175 :27 IZA 41 ng/mL (Normal) Range: 26-388 :27 MIACRE tMICROCREAT 9.2 {mg/g_CRE} (Normal) MIALB 15.8 [...] <0.05 NEGATIVE0.06 - 0.59 AT RISK OF SD> OR = 0.60 SUGGEST SD :47 HgA1C , Office (77460) HgA1C , Office 6.3 % (Normal) Range: [...] CHOL 147 mg/dL (Normal) Comments: <200 mg/dL Dlkvxeipo035-700 mg/dL Borderline>240 mg/dL High Risk :55 Rapid Flu (50792 x 2) Comments: neg Influenza A Ag negative (Normal) :02 FECAL OCCULT- Tubes sent home (38694) FECAL OCCULT HGB ASSAY, QUAL, 1-3 negative (Normal) [facility] :39 B12 510 pg/mL (Normal) Range: 211-911 [...] {IU/mL} (Normal) Range: 0-100 Comments: Performed at: - [facility] Director: Melquiades Hector MD, Phone: [phone] IMM 55 mg/dL (Normal) Range: 40-230 DEBBY 182 mg/dL (Normal) Range: 91-414 IMG 788 mg/dL (Normal) Range: 700-1600 :39 LDH 190 U/L (Normal) Comments: Serial Specimen #1, #2 or #3? 1Is Patient Taking Vitamins or Folic Acid Supplements? N Range: 84-246 :39 PROEL Comments: Is Patient Fasting? [id number] Comment (Normal) Comments: Protein electrophoresis scan will follow via computer,mail, or rest room maid delivery. tPROELAG 1.6 (Normal) Range: 0.7-2.0 tPROELIN [...] Supplements? N Range: 250-450 :56 CULTURE, SPUTUM (67516) Comments: PATIENT NOT FASTINGPERFORMED BY: [facility] [id number] Information: SRC:[facility] [id number] Result 1 RRF (Normal) Comments: Routine respiratory ashkan Lower Respiratory Culture Final report (Normal) :32 HgA1C , Office (92233) HgA1C , Office 5.9 % (Normal) Range: 4.6 - 7.1 :32 Blood Glucose , Office (70242) Blood Glucose , Office 90 (Normal) :51 [...] 4.6-6.2 WBC 7.2 {k/mm3} (Normal) Range: 4.4-11.0 85-Bhf-669664:51 CMP GAP 9 (Normal) Range: 5-15 CO2 [...] CHOL 149 mg/dL (Normal) Comments: <200 mg/dL Qsmoiwghf946-213 mg/dL Borderline>240 mg/dL High Risk :51 PSA 0.51 ng/mL (Normal) Range: 0.00-4.00 Comments: This test was performed using the TPSA assay method for [employer] chemistry system. Values obtained with differentassay methods cannot be used interchangably.When changing PSA assays in the course of monitoring apatient, additional sequential testing should be carriedout to confirm baseline values. 29-Rcx-823787:59 MISC (Normal) Comments: TEST RESULT LIMITSAntinuclear Antibodies, [...] CHOL 154 mg/dL (Normal) Comments: <200 mg/dL Hbkibzvfe921-464 mg/dL Borderline>240 mg/dL High Risk HDL 64 [...] TSH 1.77 {uIU/mL} (Normal) Range: 0.358-3.74 :32 UA UMUC 0 SEEN {/hpf} (Normal) UBAC 0 [...] CUF See Note Comments: TESTING PERFORMED AT [facility]. ORIGINAL REPORT ONFILE IN LAB CONTAINS ADDITIONAL TEST SITE INFORMATION. (Normal) CULTURE, FUNGUSNO YEAST OR MOLD ISOLATED AFTER 4 WEEKS. 81-Fit-333941:11 CUSP RESPC See Note (Normal) Comments: No [...] IN CHAINS AND CLUSTERS1+ GRAM POSITIVE RODS 43-Gzi-838838:23 AFBCS tAFBC See Note Comments: TESTING PERFORMED AT [facility]. ORIGINAL REPORT ONFILE IN LAB CONTAINS ADDITIONAL TEST SITE INFORMATION. (Normal) CULTURE, ACID FAST FINAL CULTURE REPORT TO FOLLOW IN 6 WEEKS. tAFBSF See Note Comments: TESTING PERFORMED AT [facility]. ORIGINAL REPORT ONFILE IN LAB CONTAINS ADDITIONAL TEST SITE INFORMATION. (Normal) ACID FAST BACILLUS SMEARNO ACID-FAST BACILLI OBSERVED ON SMEAR. 12-Utn-869943:23 CUFST FUNST See Note Comments: TESTING PERFORMED AT [facility]. ORIGINAL REPORT ONFILE IN LAB CONTAINS ADDITIONAL TEST SITE INFORMATION. (Normal) FUNGUS STAIN No yeast or mold observed. CUF See Note Comments: TESTING PERFORMED AT [facility]. ORIGINAL REPORT ONFILE IN LAB CONTAINS ADDITIONAL TEST SITE INFORMATION. (Normal) CULTURE, FUNGUSNO YEAST OR MOLD ISOLATED AFTER 4 WEEKS. 05-Vlv-626069:[address] [facility] See Note Comments: TESTING PERFORMED AT [facility]. ORIGINAL REPORT ONFILE IN LAB CONTAINS ADDITIONAL TEST SITE INFORMATION. (Normal) CULTURE, ACID FAST FINAL CULTURE REPORT TO FOLLOW IN 6 WEEKS. Tirso See Note Comments: TESTING PERFORMED AT [facility]. ORIGINAL REPORT ONFILE IN LAB CONTAINS ADDITIONAL TEST SITE INFORMATION. (Normal) ACID FAST BACILLUS SMEARAcid Fast Smear from Concentrated Specimen :Negative 67-Rdz-607143:21 CUFST FUNST See Note Comments: TESTING PERFORMED AT [facility]. ORIGINAL REPORT ONFILE IN LAB CONTAINS ADDITIONAL TEST SITE INFORMATION. (Normal) FUNGUS STAIN YEAST OBSERVED CUF See Note Comments: TESTING PERFORMED AT [facility]. ORIGINAL REPORT ONFILE IN LAB CONTAINS ADDITIONAL TEST SITE INFORMATION. (Normal) CULTURE, FUNGUSNO YEAST OR MOLD ISOLATED AFTER 4 WEEKS. 16 AFBSTN SEE Comments: Specimen submitted to Anatomical Pathology Department [facility]. - PATHOLOGY ay REPORT -2 (Normal) 32 2: 00 16 AFBSTN SEE Comments: PATIENT BROUGHT SPECIMEN IN ON 07/11/12. -M PATHOLOGY Comments: [facility] ay REPORT -2 (Normal) 30 :0 0 12 AFBSTN SEE Comments: PATIENT BROUGHT SPECIMEN IN ON 07/11/12 -M PATHOLOGY Comments: [facility] ay REPORT -2 (Normal) 01 39 :0 0 07-Pwe-388289:05 [place]ARREN CULTURE-OTHER (82247) Comments: PATIENT NOT FASTINGPERFORMED BY: [facility] Dfhrmu23[address] [facility] [id number] Information: SRC: THROAT Result 1 RRF (Normal) Comments: Routine respiratory ashkan Upper Respiratory Culture Final report (Normal) 96-Jct-051553:23 Rapid Strep Test, Office (97676) Rapid Strep Test, Office Negative (Normal) 3-Fak-841629:15 CBCMD RBCM NORM C+C {NORMAL} (Normal) PE [...] 4.6-6.2 WBC 8.3 K/mm3 (Normal) Range: 4.4-11.0 8-Jiz-405738:15 CMP GAP 10 (Normal) Range: 5-15 CO2 [...] 7-18 GLU 81 mg/dL (Normal) Range: 70-110 7-Use-995801:15 LIPID VLDL 12 mg/dL (Normal) Range: 5-40 [...] Alvarado M.D.January 27, 2012 at 2:39:03 PM [id number] Signed GP/GP If you are the refe rring physician and would like to consult with theradiologist who provided this interpretation, please contact Itzel Linares at [phone]. If this radiologist is unavailable, youwill be dir ected to another radiologist to assist. If you are a patient with a question regarding this report, pleasecontactyour referring physician directly. Professional Interpretation Provided By: [employer], Phone , These documents contain legally protected [...] destructionofthese documents. Dictated on 01/26/12 1713 by Levon Alvarado MDribed on 01/27/12 1443 by ITS IMPORTSign by [...] Schwarz D.O.January 26, 2012 at 8:55:02 PM [id number] Signed BE/B E If you are the referring physician and would like to consult with theradiologist who provided this interpretation, please contact Yogi Schwarz D.O. at [phone]. If this radiologist is unavailable, yo u will bedirected to another radiologist to assist. If you are a patient with a question regarding this report, pleasecontactyour referring physician directly. Professional Interpretation Provided By: [employer], Phone , These documents contain legally protected [...] 01/26/12 1710 by Popeye Schwarz MDianTranscribed on 01/26/122058 by ITS IMPORTSign by Yogi Schwarz MD on 01/26/122099 Sign by: Yogi Schwarz MD 37-Xbg-273816:13 CUSP RESPC See Note (Normal) Comments: No [...] GRAM POSITIVE COCCI IN CHAINS AND CLUSTERS 93-Jat-303735:56 HgA1C , Office (10669) HgA1C , Office 6.1 % (Normal) Range: 4.6 - 7.1 :56 Blood Glucose , Office (47890) Blood Glucose , Office 116 (Normal) : [...] :01 TSH 1.98 {uIU/mL} (Normal) Range: 0.358-3.74 36-Yrd-414903:25 CMP GAP 7 (Normal) Range: 5-15 CO2 [...] performed using the TPSA assay method for the[employer] chemistry system. Values obtained with differentassay methods cannot be used interchangably.When ch anging PSA assays in the course of monitoring apatient, additional sequential testing should be carriedout to confirm baseline values. 41-Zmy-241493:25 UAC UMUC 0 SEEN {/hpf} (Normal) UBAC [...] UCOL YELLOW (Normal) :44 HgA1C , Office (33342) HgA1C , Office 6.3 % (Normal) Range: 4.6 - 7.1 :44 Blood Glucose , Office (84581) Blood Glucose , Office 114 (Normal) :13 HgA1C , Office (96882) HgA1C , Office 6.2 % (Normal) Range: 4.6 - 7.1 :13 Blood Glucose , Office (99706) Blood Glucose , Office 100 (Normal) :55 HgA1C , Office (72414) HgA1C , Office 5.8 % (Normal) Range: 4.6 - 7.1 :55 Blood Glucose , Office (34059) Blood Glucose , Office 85 (Normal) :51 WARREN CULTURE-OTHER (51673) Comments: PATIENT NOT FASTINGPERFORMED BY: [facility]acqlc[facility] [id number] Information: SRC:THRT [id number] Result 1 Yeast isolated. (Normal) Comments: Heavy growthRequest for further identification must be madewithin 1 week. Upper Respiratory Culture Final report (Normal) :14 Rapid Strep Test, Office (97914) Rapid Strep Test, Office Negative (Normal) :24 [...] GRAM POSITIVE COCCI RARE GRAM POSITIVE RODS C-REACTIVE PROT 3.06 mg/L (Abnormal) Range: 0.0-3.0 [...] serialsampling is recomme nded. TESTING PERFORMED AT [facility]. ORIGINAL REPORT ON FILE IN LAB CONTAINS [...] cells for the productionof interferon gamma.Performed at: [address] [id number] Director: Joseph Velez MD, Phone: [phone] QFT AG - NIL 0 {IU/mL} (Normal) [...] 7-18 GLU 100 mg/dL (Normal) Range: 70-110 29-Lbc-89785:03 COMPLETE UA MUCUS, URINE 2+ {/hpf} (Normal) [...] >240 mg/dL High Risk :03 VIT D,25 05411 38.0 ng/mL (Normal) Comments: appt 03-08-10 Range: 32.0-100.0 Comments: Effective January 11, 2011 Vitamin D, 25-Hydroxy reference intervals will be changing to 30-100. .Recent studies consider the lower li chilo of 32.0 ng/mL to be athreshold for optimal health.Mark LUDWIG. J Nutr. 2004;135(2):317-22.Performed at: [facility] [id number] Director: Lakshmi Pino MD, Phone: [phone] VITAMIN B12 696 pg/mL (Normal) Range: 254-1320 Comments: There is a low frequency possibility that high titers ofintrinsic blocking antibodies may not be completely inactivated during the reaction pretreatment stepof this testing method. If test results are i n conflictwith the clinical diagnosis, patient should be testedfor the presence of intrinsic factor blocking antibodies. 34-Iya-554764:05 Rapid Strep Test, Office (00020) Rapid Strep Test, Office Negative (Normal) 87-Wal-83958:00 CULTURE, THROAT See Note (Normal) Comments: Normal throat ashkan isolated. No beta-hemolyticstreptococcus isolated. 62-Ira-30513:00 CHEST WITHOUT CONTRAST Radiology Report See Note [...] 10/11/10 0244 Sign by: Clarke Butt MD 12-Yir-915424:58 GALLBLADDER Radiology Report See Note (Normal) Comments: [...] 10/08/10 1402 Sign by: Jake Alvarado MD 26-Shg-05684:00 CULTURE, URINE URINE CULTURE See Note {CFU/mL} (Normal) Comments: COLONY COUNT <1000 ORGANISM 1: MIXED GRAM POSITIVE ORGANISMS 62-Gud-827518:19 Urinalysis, Office (94481) UA - BILIRUBIN Negative (Normal) UA - BLOOD Non Hemolyzed Trace (Normal) UA - GLUCOSE Negative (Normal) UA - KETONES Negative mg/dL (Normal) UA - LEUKOCYTE ESTERASE Negative (Normal) UA - NITRITE Negative (Normal) UA - PH 7.0 (Normal) UA - PROTEIN Negative mg/dL (Normal) UA - SPECIFIC GRAVITY 1.010 (Normal) URINE UROBILINGN MASSIEL TIMED Normal mg/dL (Normal) 48-Tsk-15399:00 ABDOMEN/PELVIS WITHOUT CONT Radiology Report See Note [...] on 09/16/101715 Sign by: Cosmo Mahmood MD 42-Zcl-111522:11 HgA1C , Office (62799) HgA1C , Office 6.2 % (Normal) Range: 4.6 - 7.1 92-Rix-378952:11 Blood Glucose , Office (51088) Blood Glucose , Office 90 (Normal) :28 [...] mg/dL High Risk :53 HgA1C , Office (16274) HgA1C , Office 6.4 % (Normal) Range: 4.6 - 7.1 :53 Blood Glucose , Office (05262) Blood Glucose , Office 108 (Normal) :39 CULTURE, URINE URINE CULTURE Culture exhibits no growth. (Normal) :54 Urinalysis, Office (22502) UA - BILIRUBIN Negative (Normal) UA - BLOOD Negative (Normal) UA - GLUCOSE Negative (Normal) UA - KETONES Negative mg/dL (Normal) UA - LEUKOCYTE ESTERASE Negative (Normal) UA - NITRITE Negative (Normal) UA - PH 7.0 (Normal) UA - PROTEIN Negative mg/dL (Normal) UA - SPECIFIC GRAVITY 1.010 (Normal) URINE UROBILINGN MASSIEL TIMED Normal mg/dL (Normal) :37 HgA1C , Office (70893) HgA1C , Office 6.1 % (Normal) Range: 4.6 - 7.1 65-Kjq-608723:37 Blood Glucose , Office (23610) Blood Glucose , Office 96 (Normal) 67-Ang-354902:46 CBCD,SMEAR DIFF PLT EST SeeNote (Normal) Comments: [...] 4.6-6.2 WBC 7.5 K/mm3 (Normal) Range: 4.4-11.0 73-Ill-109087:46 COMP METABOLIC GAP 7 (Normal) Range: 5-15 [...] 7-18 GLU 105 mg/dL (Normal) Range: 70-110 68-Psb-662859:46 LIPID VLDL 10 mg/dL (Normal) Range: 5-40 [...] 200-240 mg/dL Borderline >240 mg/dL High Risk 35-Wuw-526962:46 MICROALB:CRE UR MALB:CREAT 4.8 {mg/g_CRE} (Normal) MICROALBUMIN,UR 8.1 mg/L (Normal) UR CREAT 166.2 mg/dL (Normal) 36-Hst-072499:46 PSA, SCREEN 0.5 ng/mL (Normal) Range: 0.0-4.0 :22 HgA1C , Office (70352) HgA1C , Office 6.1 % (Normal) Range: 4.6 - 7.1 :22 Blood Glucose , Office (32900) Blood Glucose , Office 123 (Normal) :47 HgA1C , Office (05168) HgA1C , Office 6.3 % (Normal) Range: 4.6 - 7.1 :47 Blood Glucose , Office (66980) Blood Glucose , Office 103 (Normal) :05 [...] CHOL 142 mg/dL (Normal) Comments: <200 mg/dL Zdktcxsjx703-307 mg/dL Borderline>240 mg/dL High Risk TRIG 35 mg/dL (Normal) Comments: Serum Triglycerides Reference IntervalNormal <150 mg/dLBorderline high 150 - 199 mg/dLHigh 200 - 499 mg/ dLVery High > or = 500 mg/dL :24 HgA1C , Office (91584) HgA1C , Office 6.2 % (Normal) Range: 4.6 - 7.1 6-Ojq-777195:23 Blood Glucose , Office (35801) Blood Glucose , Office 96 (Normal) 99-Oul-123270:07 GASTRIC EMPTYING STUDY Radiology Report See Note (Normal) Comments: Exam Number: [id number] GASTRIC EMPTYING STUDY A gastric emptying study was performed. The patient ingested 1 mCi [id number] Sulfur colloid with oatmeal. HISTORYThis is a 58-year-old male patie nt with hist ory of bloating andgastroesophageal reflux. FINDINGSAt 1 hour, there is complete emptying of the stomach of theradiopharmaceutical. This is a normal study. IMPRESSIONNormal examination. There is no e vidence of gastric retention. Reported By: WILFREDO ALVARADO 9-Edg-608416:33 HgA1C , Office (87431) HgA1C , Office 5.9 % (Normal) Range: 4.6 - 7.1 7-Ioa-499490:33 Blood Glucose , Office (48880) Blood Glucose , Office 111 (Normal) :08 [...] Range: 0.0-4.0 :46 Blood Glucose , Office (76263) Blood Glucose , Office 156 (Normal) :46 HgA1C , Office (11268) HgA1C , Office 5.8 % (Normal) Range: 4.6 - 7.1 :12 HgA1C , Office (96730) Comments: done HgA1C , Office 5.8 % (Normal) Range: 4.6 - 7.1 :12 Blood Glucose , Office (39190) Comments: done Blood Glucose , Office 99 [...] mg/dL (Normal) Range: 200-370 Comments: Performed At: [address] [id number] Blood Glucose , Office (59602) Blood Glucose , Office 92 (Normal) :44 HgA1C , Office (94034) HgA1C , Office 5.7 % (Normal) Range: 4.6 - 7.1 :40 GLU GTT-2 HOUR 191 mg/dL (Abnormal) Comments: 2HR GTT GLU 2 HR GLU GTT-2 HOUR from 216:I61692K. Range: 70-120 :20 GLU GTT-1 HOUR 178 mg/dL (Abnormal) Comments: 2HR GTT GLU 1 HR GLU GTT-1 HOUR from 216:D54098T. Range: 120-170 :40 GLU GTT-30 min. 183 mg/dL (Abnormal) Comments: 2HR GTT GLU 1/2 HR GLU GTT-30 min. from 216:T42038X. Range: 110-170 :01 GLU GTT-FASTING 106 mg/dL (Normal) Comments: 2HR GTT FASTING GLU GTT-FASTING from 216:G04857H. Range: 70-110 Comments: GLUCOSE TOLERANCE TEST Reference [...] was performed using the TPSA method for the[employer] chemistry system.Values obtained with different assay methods cannot be usedinterchangably.When changing PSA assays in the course of monito ring apatient, additional sequential testing should be carriedout to confirm baseline values. 98-Wfb-216685:12 ROUTINE UA BILIRUBIN URINE SeeNote (Normal) Comments: [...] 0.2 EU/dl (Normal) Range: 0.2 - 1.0 99-Rgv-257692:12 TSH 1.38 {uIU/mL} (Normal) Range: 0.34-4.82 06-Qvq-59429:03 CHEST WITH CONTRAST Radiology Report See Note (Normal) Comments: Exam Number: [id number] CHEST CT WITH INTRAVENOUS CONTRAST. REASON FOR [...] No growth in 5 6:14 days. (Normal) :14 CBCD,SMEAR DIFF BAND 1 % (Normal) Range: [...] T PROT 6.3 g/dL (Abnormal) Range: 6.4-8.2 39-Wia-053383:19 EBVIgG/M 204618 EB-EA IgG 84671 79 AU/mL (Normal) Range: 0-99 Comments: Negative <100 Equivocal 100 - 120 Positive >120 EB-NAg EtV54578 656 AU/mL (Abnormal) Range: 0-99 Comments: Negative <100 Equivocal 100 - 120 Positive >120 EB-VCA XwH00239 2296 AU/mL (Abnormal) Range: 0-99 Comments: Negative <100 Equivocal 100 - 120 Positive >120 EB-VCA BkA61837 9 AU/mL (Normal) Range: 0-99 Comments: Negative [...] Antibody Present - Antibody AbsentPerformed At: [facility] [address]qblx[address] [place], [place] [id number] 15-Thn-624240:00 CULTURE, THROAT See Note (Normal) Comments: Normal throat ashkan isolated. No beta-hemolyticstreptococcus isolated. 06-Pxw-697555:35 Rapid Strep Test, Office (79114) Rapid Strep Test, Office Negative (Normal) 99-Hat-37515:40 TISS/FLUID P-BX/CY (Normal) Comments: OPERATION Biopsy, testicle, [...] SJ:rin 11/09/06 TC:5 REPORT SIGNED: PAMELLA SON 11/10/0607-Nov-200660-Mze-402058:55 ALDOLASE 2030 2.3 U/L (Normal) Range: 1.2-7.6 Comments: Performed At: [address] [id number] At: [facility] [id number] 78-Pmx-230977:55 JOHN-D 053246 JOHN-DIRECT 9 U/mL (Normal) Range: 0-99 Comments: Negative <100 Equivocal 100 - 120 Positive >120 02-Wdn-026528:55 C-REACTIVE PROT 0.52 mg/L (Normal) Range: 0.0-6.0 Comments: Test performed using the Dimension C-Reactive ProteinExtended Range assay method. This assay meets the AHA/CDC 2003 recommendations fordetermining patients at high risk for cardiovasculardisease. Reference: High risk CRP >3.0 mg/L 11-End-046867:55 CBC HCT 42.8 % (Normal) Range: 40-54 [...] 4.9 {IU/mL} (Normal) Range: 0.0-13.9 :55 TESTOST [id number] TESTOSTER %FREE 2.87 % (Normal) Range: 1.50-4.20 [...] Report See Note (Normal) Comments: Exam Number: [id number] TESTICULAR ULTRASOUND HISTORYTesticular swelling. High resolution real [...] Reported By: MAYELIN DE LA FUENTE M.D. 2-Ioj-982645:45 HIP, MIN 2 VIEWS Radiology Report See Note (Normal) Comments: Exam Number: [id number] FIVE VIEW LUMBAR SPINE AP, LATERAL, BOTH [...] Report See Note (Normal) Comments: Exam Number: [id number] FIVE VIEW LUMBAR SPINE AP, LATERAL, BOTH [...] degenerative changes. Reported By: REMIGIO PURCELL M.D. 1-Ian-502839:44 HIP, MIN 2 VIEWS Radiology Report See Note (Normal) Comments: Exam Number: [id number] FIVE VIEW LUMBAR SPINE AP, LATERAL, BOTH [...] degenerative changes. Reported By: REMIGIO PURCELL M.D. 09-Jep-404743:43 CHEST, PA AND LATERAL Radiology Report See Note (Normal) Comments: Exam Number: [id number] PA AND LATERAL CHEST HISTORYShortness of breath. [...] 15, 2005. Reported By: EDVIN MARIE M.D. 57-Sbf-591289:25 ALDOLASE 2030 3.0 U/L (Normal) Range: 1.2-7.6 Comments: Performed At: [facility] [place], [place] [id number] 29-Flm-515296:25 JOHN-D 565641 JOHN-DIRECT 46 U/mL (Normal) Range: 0-99 Comments: Negative <100 Equivocal 100 - 120 Positive >120 77-Ofr-775710:25 C-REACTIVE PROT 1.07 mg/L (Normal) Range: 0.0-6.0 Comments: Test performed using the Dimension C-Reactive ProteinExtended Range assay method. This assay meets the AHA/CDC 2003 recommendations fordetermining patients at high risk for cardiovasculardisease. Reference: High risk CRP >3.0 mg/L 20-Gqz-052080:25 CBCD BASO% 0.4 % (Normal) Range: 0-1 [...] Plan of Care Name Dates Details Instructions Right wrist pain : Eprescribed prescriptions (G8553) Indication: Right wrist pain Hypertension, benign : Eprescribed prescriptions (G8553) Indication: [...] morphology Planned Observations CBC W/AUTO DIFF WBC (57291)Indication: Hypertension, benign On: :51 Request METABOLIC PANEL, COMPREHENSIVE (63657)Indication: Hypertension, benign On: :51 Request LIPID PANEL (47266)Indication: Other hyperlipidemia On: :50 Request CULTURE,FUNGUS W/STAIN 152897 (75855)Indication: Bronchiectasis On: :59 Request CULTURE, SPUTUM (90405)Indication: Moderate persistent asthma without complication On: :21 Request HGB A1C (22019)Indication: Abnormal glucose tolerance test On: :10 Request CBC with auto diff (96707)Indication: Abnormal glucose tolerance test On: :10 Request METABOLIC PANEL, COMPREHENSIVE (64386)Indication: Abnormal glucose tolerance test On: :10 Request LIPID PANEL (44801)Indication: Other hyperlipidemia On: :10 Request PSA (PROSTATE SPECIFIC ANTIGEN) (V76.44)Indication: Encounter for screening for malignant neoplasm of prostate (Renamed from Screening for prostate cancer) On: :09 Request METABOLIC PANEL, COMPREHENSIVE (45265)Indication: Essential hypertension On: 0-Nft-882239:58 Request CBC with auto diff (47020)Indication: Hypertension, benign On: :53 Request METABOLIC PANEL, COMPREHENSIVE (06787)Indication: Abnormal glucose tolerance test On: :52 Request MICROALBUMIN: CREATININE RATIO (40245) AND (02706)Indication: Abnormal glucose tolerance test On: :52 Request HGB A1C (36496)Indication: Abnormal glucose tolerance test On: :52 Request LIPID PANEL (73064)Indication: Other hyperlipidemia On: 07-Zmu-29278:52 Request LIPID PANEL (55945)Indication: Other hyperlipidemia On: :30 Request CBC W/AUTO DIFF WBC (39159)Indication: Hypertension, benign On: : Request METABOLIC PANEL, COMPREHENSIVE (03876)Indication: Hypertension, benign On: :29 Request IMMUNOGLOBULIN G (IgG) (84449)Indication: Abnormal blood chemistry On: :02 Request Comments: PLEASE DRAW WITH OTHER LABS IN 2017 serum free light chains (90908)Indication: Abnormal blood chemistry On: :40 Request serum immunofixation (08828)Indication: Abnormal blood chemistry On: :40 Request PSA (PROSTATE SPECIFIC ANTIGEN) (V76.44)Indication: Encounter for screening for malignant neoplasm of prostate (Renamed from Screening for prostate cancer) On: :40 Request LIPID PANEL (04712)Indication: Other hyperlipidemia On: :40 Request CBC with auto diff (52489)Indication: Abnormal glucose tolerance test On: :39 Request METABOLIC PANEL, COMPREHENSIVE (61728)Indication: Abnormal glucose tolerance test On: 12-Emr-800525:39 Request MICROALBUMIN: CREATININE RATIO (30839) AND (68260)Indication: Abnormal glucose tolerance test On: 84-Enq-831246:39 Request HGB A1C (58707)Indication: Abnormal glucose tolerance test On: 71-Amb-048580:39 Request LIPID PANEL (00837)Indication: Other hyperlipidemia On: 7-Zpw-366833:58 Request urine immunofixation (61625)Indication: Abnormal blood chemistry On: 01-Huj-883302:34 Request serum immunofixation (02840)Indication: Abnormal blood chemistry On: 26-Mpq-433714:34 Request MICROALBUMIN: CREATININE RATIO ([id number]) AND ([id number])Indication: Abnormal glucose tolerance test On: 60-Gjt-894433:32 Request HGB A1C (01287)Indication: Abnormal glucose tolerance test On: 10-Pea-350632:32 Request CBC W/AUTO DIFF WBC ([id number])Indication: Hypertension, benign On: :30 Request METABOLIC PANEL, COMPREHENSIVE (27969)Indication: Hypertension, benign On: :30 Request LIPID PANEL (40425)Indication: Other hyperlipidemia On: :30 Request LIPOPROTEIN, BLD, BY NMR (33929)Indication: Other hyperlipidemia On: 05-Oqy-478217:14 Request CBC WITH MANUAL DIFF (65522)Indication: Essential hypertension On: :14 Request Metabolic Panel, Comprehensive ([id number])Indication: Essential hypertension On: :14 Request CBC W/AUTO DIFF WBC (60421)Indication: Abnormal glucose tolerance test On: :03 Request LIPOPROTEIN, BLD, BY NMR (52435)Indication: Other hyperlipidemia On: :03 Request METABOLIC PANEL, COMPREHENSIVE (36631)Indication: Abnormal glucose tolerance test On: :02 Request Anti-TPO Antibody (07109)Indication: Abnormal blood chemistry On: :57 Request T4, FREE (THYROXINE) (15014)Indication: Abnormal blood chemistry On: :57 Request T3, FREE (TRIDOTHYRONINE) (95573)Indication: Abnormal blood chemistry On: :57 Request TSH ([id number])Indication: Abnormal blood chemistry On: :56 Request P-ANCA & C-ANCA (ANCA PROFILE) 01587 x2 and 83027 [id number]: Acute recurrent maxillary sinusitis On: :26 Request JOHN (ANTINUCLEAR ANTIBODY) ([id number])Indication: Abnormal blood chemistry On: :56 Request RHEUMATOID FACTOR-QUANT ([id number])Indication: Abnormal blood chemistry On: :56 Request SED RATE ERYTHROCYTE (94031)Indication: Abnormal blood chemistry On: :56 Request C-REACTIVE PROTEIN (53555)Indication: Abnormal blood chemistry On: :56 Request CBC with auto diff ([id number])Indication: Hypertension, benign On: 55-Stl-050622:10 Request MICROALBUMIN: CREATININE RATIO (55334) AND ([id number])Indication: Abnormal glucose tolerance test On: 91-Qsv-717268:01 Request METABOLIC PANEL, COMPREHENSIVE (60177)Indication: Abnormal glucose tolerance test On: : Request HGB A1C (74676)Indication: Abnormal glucose tolerance test On: : Request METABOLIC PANEL, COMPREHENSIVE (44943)Indication: Hypertension, benign On: : Request LIPID PANEL (60324)Indication: Other hyperlipidemia On: : Request PSA (PROSTATE SPECIFIC ANTIGEN) (V76.44)Indication: Encounter for screening for malignant neoplasm of prostate (Renamed from Screening for prostate cancer) On: 94-Jrp-185760:59 Request Factor 2 (Prothrombin) Gene Mutation (57618)Indication: Other symptoms involving cardiovascular system On: :13 Request MICROALBUMIN: CREATININE RATIO (29325) AND ([id number])Indication: Abnormal glucose tolerance test On: :53 Request HGB A1C (62210)Indication: Abnormal glucose tolerance test On: :53 Request LIPID PANEL (66492)Indication: Other hyperlipidemia On: :53 Request CBC W/AUTO DIFF WBC ([id number])Indication: Hypertension, benign On: :53 Request METABOLIC PANEL, COMPREHENSIVE (58164)Indication: Hypertension, benign On: :53 Request CBC with auto diff (71248)Indication: Hypertension, benign On: 3-Ixv-352218:25 Request METABOLIC PANEL, COMPREHENSIVE (58492)Indication: Hypertension, benign On: 2-Umx-170141: Request LIPID PANEL (02237)Indication: Other hyperlipidemia On: :25 Request Factor V Leiden (84236)Indication: Deep vein thrombosis of lower extremity On: :24 Request CLOTTING FACTOR II (08357)Indication: Deep vein thrombosis of lower extremity On: :24 Request ANTITHROMBIN III ACTIVTY (14749)Indication: Deep vein thrombosis of lower extremity On: :24 Request Antiphospholipid atb (64890)Indication: Deep vein thrombosis of lower extremity On: :24 Request Protein C Profile ([id number])Indication: Deep vein thrombosis of lower extremity On: :24 Request Protein S Profile (86609)Indication: Deep vein thrombosis of lower extremity On: 32-Nog-741360:24 Request Hemoglobin Glyclated (HGB A1C) (21783)Indication: Abnormal glucose tolerance test On: :23 Request CBC W/AUTO DIFF WBC (75426)Indication: Abnormal glucose tolerance test On: :43 Request MICROALBUMIN: CREATININE RATIO (62563) AND ([id number])Indication: Abnormal glucose tolerance test On: :43 Request METABOLIC PANEL, COMPREHENSIVE (92197)Indication: Abnormal glucose tolerance test On: : Request LIPID PANEL (24523)Indication: Other hyperlipidemia On: Request DNA ANTIBODY-NATV/DBL ST (58471)Indication: Heart disease, unspecified On: 85-Sqj-266805:02 Request METABOLIC PANEL, COMPREHENSIVE (39778)Indication: Essential hypertension On: :31 Request LIPID PANEL (42991)Indication: Other hyperlipidemia On: 42-Emc-930177:31 Request Hemoglobin Glyclated (HGB A1C) (70115)Indication: Abnormal glucose tolerance test On: :31 Request PSA (PROSTATE SPECIFIC ANTIGEN) (V76.44)Indication: Benign prostatic hyperplasia with lower urinary tract symptoms, unspecified morphology On: 66-Iou-199624:52 Request MICROALBUMIN: CREATININE RATIO ([id number]) AND ([id number])Indication: Abnormal glucose tolerance test On: 19-Ytm-130128:50 Request Hemoglobin Glyclated (HGB A1C) (14407)Indication: Abnormal glucose tolerance test On: 21-Ziz-157158:50 Request URINE WARREN CULTURE (MASSIEL COL COUNT) (49548)Indication: Muscle weakness On: :48 Request URINALYSIS, W/ MICRO (00308)Indication: Muscle weakness On: :48 Request CBC with auto diff (09649)Indication: Muscle weakness On: :48 Request JOHN (ANTINUCLEAR ANTIBODY) (14040)Indication: Muscle weakness On: :48 Request SED RATE ERYTHROCYTE (43786)Indication: Muscle weakness On: :48 Request C-REACTIVE PROTEIN (84749)Indication: Muscle weakness On: :48 Request TSH ([id number])Indication: Muscle weakness On: :48 Request LIPID PANEL (48466)Indication: Other hyperlipidemia On: :47 Request METABOLIC PANEL, COMPREHENSIVE (73782)Indication: Other hyperlipidemia On: :46 Request URINE WARREN CULTURE-MASSIEL COL COUNT (19966)Indication: Other abnormal finding of urine On: :42 Request LIPID PANEL (59752)Indication: Other hyperlipidemia On: :44 Request CBC W/AUTO DIFF WBC (59225)Indication: Essential hypertension On: :44 Request METABOLIC PANEL, COMPREHENSIVE (96631)Indication: Essential hypertension On: :44 Request URINE WARREN CULTURE-MASSIEL COL COUNT ([id number])Indication: Other abnormal finding of urine On: 7-Aha-592466:00 Request Comments: ADD ON MICROALBUMIN: CREATININE RATIO (45025) AND ([id number])Indication: Essential hypertension On: :02 Request URINALYSIS, W/ MICRO (22362)Indication: Essential hypertension On: :02 Request METABOLIC PANEL, COMPREHENSIVE (43535)Indication: Essential hypertension On: 5-Tpb-111103:02 Request LIPID PANEL ([id number])Indication: Other hyperlipidemia On: 2-Yuh-038514:02 Request CBC WITH MANUAL DIFF ([id number])Indication: Iron deficiency On: 2-Lbv-795258:02 Request URINE WARREN CULTURE (MASSIEL COL COUNT) (45951)Indication: Fatigue On: :46 Request MICROALBUMIN: CREATININE RATIO (88253) AND ([id number])Indication: Abnormal glucose tolerance test On: :46 Request Hemoglobin Glyclated (HGB A1C) (21000)Indication: Abnormal glucose tolerance test On: :46 Request IRON BINDING CAPACITY (TIBC) (45026)Indication: Anemia, unspecified On: :42 Request FERRITIN (06546)Indication: Anemia, unspecified On: :42 Request IRON ([id number])Indication: Anemia, unspecified On: : Request VITAMIN B-12 (CYANOCOBALAMIN) (64713)Indication: Fatigue On: Request CBC (AUTO) (64034)Indication: Fatigue On: Request TSH (68189)Indication: Fatigue On: : Request Vitamin D Hydroxy (21109)Indication: Fatigue On: Request EBV Panel (18932)Indication: Fatigue On: Request FERRITIN (07732)Indication: Anemia, unspecified On: Request IRON (22605)Indication: Anemia, unspecified On: Request MICROALBUMIN: CREATININE RATIO (90422) AND ([id number])Indication: Abnormal glucose tolerance test On: Request METABOLIC PANEL, COMPREHENSIVE (01479)Indication: Abnormal glucose tolerance test On: Request LIPID PANEL (82147)Indication: Other hyperlipidemia On: Request CBC WITH MANUAL DIFF (60118)Indication: Anemia, unspecified On: Request FERRITIN (05148)Indication: Anemia, unspecified On: 3-Ykx-967855:15 Request IRON ([id number])Indication: Anemia, unspecified On: 7-Agw-877334:14 Request LIPID PANEL (10035)Indication: Essential hypertension On: :14 Request METABOLIC PANEL, COMPREHENSIVE (46736)Indication: Essential hypertension On: :14 Request CBC WITH MANUAL DIFF (83936)Indication: Essential hypertension On: 6-Gys-829697:14 Request UPEP (09471)Indication: BRONCHITIS, NOT SPECIFIED ACUTE OR CHRONIC (490.) On: :37 Request Protein Electrophoresis, Serum (SPEP) (47001)Indication: BRONCHITIS, NOT SPECIFIED ACUTE OR CHRONIC (490.) On: :37 Request IGA/IGD/IGG/IGM-EACH (93853)Indication: BRONCHITIS, NOT SPECIFIED ACUTE OR CHRONIC (490.) On: :37 Request URINALYSIS, W/ MICRO (86465)Indication: Anemia, unspecified On: Request CBC WITH MANUAL DIFF ([id number])Indication: Anemia, unspecified On: Request FOLIC ACID SERUM (54791)Indication: Anemia, unspecified On: Request VITAMIN B-12 (CYANOCOBALAMIN) (24395)Indication: Anemia, unspecified On: Request RETICULOCYTE COUNT MANUL (56959)Indication: Anemia, unspecified On: Request LDH (LD) (LACTATE DEHYDROGENASE) (55943)Indication: Anemia, unspecified On: Request IRON BINDING CAPACITY (TIBC) (55913)Indication: Anemia, unspecified On: Request IRON ([id number])Indication: Anemia, unspecified On: Request FERRITIN ([id number])Indication: Anemia, unspecified On: Request PSA (PROSTATE SPECIFIC ANTIGEN) (V76.44)Indication: Screening for prostate cancer On: 36 Request LIPID PANEL (07628)Indication: Abnormal glucose tolerance test On: 35 Request CBC WITH MANUAL DIFF (71127)Indication: Hypertension, benign On: Request METABOLIC PANEL, COMPREHENSIVE (00371)Indication: Hypertension, benign On: Request SED RATE ERYTHROCYTE (72229)Indication: Rash On: Request C-REACTIVE PROTEIN (87463)Indication: Rash On: Request RHEUMATOID FACTOR-QUANT (30779)Indication: Rash On: Request JOHN (ANTINUCLEAR ANTIBODY) (36363)Indication: Rash On: Request CULTURE, SPUTUM (64201)Indication: Cough On: :20 Request HgA1C , Office (12142)Indication: Abnormal glucose tolerance test On: 75-Fhp-964763:57 Request CULTURE, SPUTUM ([id number])Indication: Cough On: 39-Xsj-954833:39 Request ACID FAST STAIN (AFB) (10470)Indication: Cough On: :38 Request TSH (41038)Indication: Other hyperlipidemia On: :21 Request URINALYSIS, W/ MICRO (25483)Indication: Essential hypertension On: : Request CBC WITH MANUAL DIFF (92975)Indication: Abnormal glucose tolerance test On: : Request METABOLIC PANEL, COMPREHENSIVE (21238)Indication: Abnormal glucose tolerance test On: :21 Request MICROALBUMIN: CREATININE RATIO (34699) AND (59347)Indication: Abnormal glucose tolerance test On: : Request LIPID PANEL (88851)Indication: Other hyperlipidemia On: :20 Request CBC WITH MANUAL DIFF ([id number])Indication: Abnormal glucose tolerance test On: :26 Request METABOLIC PANEL, COMPREHENSIVE (21368)Indication: Abnormal glucose tolerance test On: 44-Pvd-197391:26 Request CULTURE, SPUTUM (93922)Indication: Cough On: 23-Yoe-813754:18 Request LIPID PANEL (19253)Indication: Other hyperlipidemia On: 53-Jrz-813076:14 Request TSH (49542)Indication: Swelling of limb On: 39-Ugs-82301:58 Request METABOLIC PANEL, COMPREHENSIVE (21236)Indication: Swelling of limb On: 48-Ruu-15571:58 Request CBC WITH MANUAL DIFF (82112)Indication: Swelling of limb On: :58 Request BNTP (43410)Indication: Swelling of limb On: :58 Request CULTURE, SPUTUM (61814)Indication: Cough On: 11-Buz-60933:56 Request PSA (PROSTATE SPECIFIC ANTIGEN) (V76.44)Indication: Screening for prostate cancer On: 28-Ruq-296607:19 Request URINALYSIS, W/ MICRO (48582)Indication: Abnormal glucose tolerance test On: 60-Fww-005441:18 Request MICROALBUMIN: CREATININE RATIO (27425) AND (90739)Indication: Abnormal glucose tolerance test On: 36-Cos-314729:18 Request METABOLIC PANEL, COMPREHENSIVE (63694)Indication: Essential hypertension On: 45-Shh-350433:18 Request LIPID PANEL (76654)Indication: Other hyperlipidemia On: 70-Fjc-873731:18 Request PSA (PROSTATE SPECIFIC ANTIGEN) (V76.44)Indication: Screening for prostate cancer On: 81-Jjy-638499:40 Request MICROALBUMIN: CREATININE RATIO (73263) AND ([id number])Indication: Abnormal glucose tolerance test On: :40 Request METABOLIC PANEL, COMPREHENSIVE (83279)Indication: Abnormal glucose tolerance test On: 35-Bqa-463022:40 Request Urine Protein Electrophoresis (UPEP) ([id number])Indication: recurrent uri On: :39 Request Serum Protein Electrophoresis (SPEP) (57981)Indication: recurrent uri On: :39 Request IMMUNOGLOBULIN E (IgE) (88409)Indication: Asthma, intrinsic, with status asthmaticus On: :39 Request IGA/IGD/IGG/IGM-EACH (72311)Indication: Asthma, intrinsic, with status asthmaticus On: 34-Suw-538983:39 Request LIPID PANEL (76712)Indication: Other hyperlipidemia On: 85-Nvz-409253:38 Request ASPERGILLUS AG, EIA (73416)Indication: Cough On: 92-Pbm-934107:58 Request SED RATE ERYTHROCYTE (34559)Indication: Cough On: 62-Fvo-108944:48 Request C-REACTIVE PROTEIN (03048)Indication: Cough On: 53-Mrr-349945:48 Request CBC WITH MANUAL DIFF ([id number])Indication: Cough On: 22-Qae-034390:47 Request Quantiferron gold test (83541)Indication: Cough On: 17-Shk-190867:45 Request CULTURE, SPUTUM (13500)Indication: Cough On: 30-Zas-089383:45 Request VITAMIN B-12 (CYANOCOBALAMIN) (47743)Indication: Fatigue On: :20 Request Vitamin D Hydroxy (30857)Indication: Fatigue On: 36-Tsl-482938:20 Request CBC WITH MANUAL DIFF (19039)Indication: Abnormal glucose tolerance test On: :19 Request METABOLIC PANEL, COMPREHENSIVE (40475)Indication: Abnormal glucose tolerance test On: 93-Eub-779336:19 Request LIPID PANEL (99864)Indication: Other hyperlipidemia On: :19 Request URINALYSIS, W/ MICRO (57504)Indication: Abnormal glucose tolerance test On: :19 Request HEMOGLOBIN GLYCLATED (HGB A1C) (79646)Indication: Abnormal glucose tolerance test On: :19 Request WARREN CULTURE-OTHER (13928)Indication: Pharyngitis, acute On: :05 Request URINE WARREN CULTURE-MASSIEL COL COUNT (71492)Indication: Abdominal pain, acute, right lower quadrant On: :19 Request CBC WITH MANUAL DIFF (52292)Indication: Abnormal glucose tolerance test On: :08 Request METABOLIC PANEL, COMPREHENSIVE (99448)Indication: Abnormal glucose tolerance test On: :08 Request TSH (71760)Indication: Fatigue On: :02 Request CBC WITH MANUAL DIFF ([id number])Indication: Abnormal glucose tolerance test On: :45 Request METABOLIC PANEL, COMPREHENSIVE (25157)Indication: Hypertension, benign On: 94-Swf-491332:45 Request LIPID PANEL ([id number])Indication: Other hyperlipidemia On: 37-Uxg-441140:45 Request METABOLIC PANEL, COMPREHENSIVE (58860)Indication: Essential hypertension On: :16 Request LIPID PANEL (52313)Indication: Other hyperlipidemia On: 38-Gip-562467:15 Request URINE WARREN CULTURE-MASSIEL COL COUNT (05242)Indication: Calcium kidney stone On: 27-Qtb-503252:54 Request PSA (PROSTATE SPECIFIC ANTIGEN) (V76.44)Indication: Enlarged prostate with lower urinary tract symptoms On: :09 Request METABOLIC PANEL, COMPREHENSIVE (14422)Indication: Abnormal glucose tolerance test On: :09 Request CBC WITH MANUAL DIFF (99429)Indication: Abnormal glucose tolerance test On: :09 Request LIPID PANEL (53616)Indication: Other hyperlipidemia On: 25-Zkr-415382:09 Request MICROALBUMIN: CREATININE RATIO (88699) AND (25032)Indication: Abnormal glucose tolerance test On: 23-Srm-994043:09 Request LIPID PANEL (80830)Indication: Other hyperlipidemia On: 30-Qhi-406579:31 Request CBC WITH MANUAL DIFF (07406)Indication: Abnormal glucose tolerance test On: :31 Request METABOLIC PANEL, COMPREHENSIVE (59959)Indication: Abnormal glucose tolerance test On: :30 Request MICROALBUMIN: CREATININE RATIO (73618) AND ([id number])Indication: Abnormal glucose tolerance test On: :28 Request METABOLIC PANEL, COMPREHENSIVE (61596)Indication: Abnormal glucose tolerance test On: :07 Request LIPID PANEL (59601)Indication: Other hyperlipidemia On: 9-Twr-083274:07 Request PSA (PROSTATE SPECIFIC ANTIGEN) (V76.44)Indication: Enlarged prostate with lower urinary tract symptoms On: 8-Jld-811425:49 Request METABOLIC PANEL, COMPREHENSIVE (71990)Indication: Essential hypertension On: 4-Tjc-901731:48 Request LIPID PANEL (70821)Indication: Other hyperlipidemia On: :48 Request HEPATIC FUNCTION PANEL (77552)Indication: Other hyperlipidemia On: :21 Request LIPID PANEL (91992)Indication: Other hyperlipidemia On: 86-Tpn-914235:21 Request CBC WITH MANUAL DIFF (29836)Indication: Abnormal glucose tolerance test On: :53 Request METABOLIC PANEL, COMPREHENSIVE (84169)Indication: Abnormal glucose tolerance test On: 1-Tut-067706:53 Request MICROALBUMIN: CREATININE RATIO (14168) AND (54553)Indication: Abnormal glucose tolerance test On: 8-Nht-525732:53 Request HEPATIC FUNCTION PANEL (92483)Indication: Other hyperlipidemia On: :53 Request LIPID PANEL (07198)Indication: Other hyperlipidemia On: 9-Fdl-590784:53 Request GLUCOSE TOLERANCE TEST (GTT) 2 hour On: 7-Hal-917753:36 Request (70403) TSH (97264)Indication: Dizziness and giddiness On: 60-Ltd-319737:15 Request LIPID PANEL (53532)Indication: Other hyperlipidemia On: 95-Dhu-774658:15 Request CBC WITH MANUAL DIFF (12851)Indication: Dizziness and giddiness On: 37-Qrj-409249:15 Request METABOLIC PANEL, COMPREHENSIVE (54358)Indication: Dizziness and giddiness On: 30-Kga-946501:15 Request HEPATIC FUNCTION PANEL (92187)Indication: Other hyperlipidemia On: 79-Ddf-991608:39 Request LIPID PANEL (27200)Indication: Other hyperlipidemia On: 00-Ado-604129:39 Request HEPATIC FUNCTION PANEL (26676)Indication: Other hyperlipidemia On: 30-Ssy-647007:31 Request LIPID PANEL (40471)Indication: Other hyperlipidemia On: 62-Ehw-270339:31 Request WARREN CULTURE-BLOOD (93553)Indication: fever On: :58 Request METABOLIC PANEL, COMPREHENSIVE (69860)Indication: fever On: 2-Zro-282224:58 Request CBC WITH MANUAL DIFF ([id number])Indication: fever On: 9-Lsv-624156:58 Request WARREN CULTURE-OTHER (54694)Indication: Pharyngitis, acute On: 69-Kxm-042975:35 Request PSA (Prostate Specific Antigen), Screening (70524)Indication: Other hyperlipidemia On: 83-Ssx-233991:32 Request LIPID PANEL (16470)Indication: Other hyperlipidemia On: :31 Request URINALYSIS W/O MICRO (20250)Indication: Hypertension, benign On: 77-Vqh-423204:31 Request TSH ([id number])Indication: Hypertension, benign On: :31 Request CBC WITH MANUAL DIFF (06597)Indication: Hypertension, benign On: 09-Yrk-327153:31 Request METABOLIC PANEL, COMPREHENSIVE (35011)Indication: Hypertension, benign On: 97-Lca-485645:31 Request Creatine Kinase Total (16196)Indication: Myalgia and myositis On: :24 Request SED RATE ERYTHROCYTE (24716)Indication: Arthralgia On: :23 Request C-REACTIVE PROTEIN (43592)Indication: Arthralgia On: :23 Request RHEUMATOID FACTOR-QUANT ([id number])Indication: Arthralgia On: :23 Request JOHN (ANTINUCLEAR ANTIBODY) ([id number])Indication: Arthralgia On: :23 Request Planned Encounters Medical; [facility] 3 Month FU - On: 21-Mar-2018 8:30 [facility] Fast DO, Adealida A Fast DO, Adelaida A Planned Procedures Radiology - Knee - Left - Weight On: 10-Mar-2018 Intent BearingBy: Fast DO, Adelaida A Fast Comments: also sunrise view DO, Adelaida A Radiology - Wrist - RightBy: Fast On: 10-Mar-2018 Intent DO, Adelaida A Fast DO, Adelaida A Comments: pain right lateral wrist PNEUM VAC ADLT/IMUMNOSPR, SBC/INTRM On: 06-Dec-2017 Intent (26110)By: Flakito DO Adelaida A Flakito Comments: lot: [id number]: ite/route: L del/IMamt: 0.5mLVIS signed when applicableChelsea, PRODUCTION ASSEMBLER DO, Adelaida A Cartoid DopplerBy: Fast DO, Adelaida A On: 06-Sep-2017 Intent Fast DO, Adelaida A Radiology - Lumbar SpineBy: Fast On: 06-Jun-2017 Intent DO, Adelaida A Fast DO, Adelaida A ELECTROCARDIOGRAM, COMPLETE (ECG) On: 06-Jun-2017 Intent ([id number])By: Flakito ACKERMAN Adelaida A Fast Comments: ekg showed normal [...] proabable spur Radiology - ChestBy: Fast DO, Adelaida On: 19-Jan-2017 Intent A Fast DO, Adelaida A Comments: PA & LAT CHEST XRAY, PA & LATERAL ([id number])By: On: 18-Jan-2017 Intent Yola Witt Aerosol Treatment (25270)By: On: 18-Jan-2017 Intent Yola Witt Solu -Medrol Injection, 125 mg On: 18-Jan-2017 Intent (J2930)By: Yola Witt Comments: solumedrol 125mg injectionlot: [id number]: 12/2018L GMpt tolerated wellAD MARINE WELDER ELECTROCARDIOGRAM, COMPLETE (ECG) On: 05-Jan-2016 Intent (64659)By: Flakito DO, Adelaida A Fast Comments: ekg showed normal sinus rhythym, normal axis, no acute st/t wave changes irbb DO, Adelaida A Solu -Medrol Injection, 125 mg On: 09-May-2015 Intent (J2930)By: Samantha Grewal CNP Comments: lot: [id number]: ite/route:RGM/IMamt: 2mLVIS signed when applicableEVER Dumont Aerosol Treatment (26154)By: Hannah On: 09-May-2015 Intent Tracey GONSALES Radiology - Chest- PA and LatBy: On: 11-Apr-2015 Intent Fast DO, Adelaida A Fast DO, Adelaida A Comments: stat Radiology - Lumbar SpineBy: Fast On: 11-Apr-2015 Intent DO, Adelaida A Fast DO, Adelaida A Radiology - Hip - LeftBy: Fast DO, On: 11-Apr-2015 Intent Adelaida A Fast DO, Adelaida A Comments: weight bearing Doppler Ultrasound OtherBy: Fast On: 23-Sep-2014 Intent DO, Adelaida A Fast DO, Adelaida A Comments: end september right leg Radiology - Chest- PA and LatBy: On: 26-Aug-2014 Intent Fast DO, Adelaida A Fast DO, Adelaida A Pulse Oximetry (09184)By: Fast DO, On: 26-Aug-2014 Intent Adelaida A Fast DO, Adelaida A Comments: 94%- recheck 95 Aerosol Treatment (09117)By: Hannah On: 10-Apr-2014 Intent Tracey GONSALES Eprescribed prescriptions On: 25-Jul-2013 Intent (G8553)By: Fast DO, Adelaida A Fast DO, Adelaida A Pulse Oximetry (75867)By: Fast DO, On: 02-Jul-2013 Intent Adelaida A Fast DO, Adelaida A Comments: 97% Aerosol Treatment (62464)By: Carmina On: 25-Jun-2013 Intent Samantha IRVIN Eprescribed prescriptions On: 25-Jun-2013 Intent (G8553)By: Samantha Grewal CNP Eprescribed prescriptions On: 02-Apr-2013 Intent (G8553)By: Leigh Ann Polk Aerosol Treatment (64860)By: Carmina On: 26-Mar-2013 Intent Samantha IRVIN Eprescribed prescriptions On: 26-Mar-2013 Intent (G8553)By: Eliana Carter Eprescribed prescriptions On: 25-Dec-2012 Intent (G8553)By: Leigh Ann Polk Aerosol Treatment (41574)By: Carmina On: 06-Nov-2012 Intent Samantha IRVIN Eprescribed prescriptions On: 06-Nov-2012 Intent (G8553)By: Eliana Carter Ear Irrigation (63798)By: Carmina On: 25-Sep-2012 Intent Samantha IRVIN Comments: Ear Irrigation performed on:bilateralAmount/color removed cerumen:large amount of dark brown wax removedOUtcome:clear, pt toleratedUsed wax curettes Wax CurettesBy: Carmina IRVINSamantha On: 25-Sep-2012 Intent Eprescribed prescriptions On: 22-Sep-2012 Intent (G8553)By: Elizabet Green DO Eprescribed prescriptions On: 02-Aug-2012 Intent (G8553)By: Leigh Ann Polk Pulse Oximetry (54297)By: Flakito ACKERMAN, On: 30-Jun-2012 Intent Adelaida A Fast DO, Adelaida A Comments: 97% Eprescribed prescriptions On: 12-Jun-2012 Intent (G8553)By: Fast DO, Adelaida A Fast DO, Adelaida A Spirometry (99316)By: Felicitas, On: 17-Jan-2012 Intent Leigh Ann Comments: good effort and curve mild restriction CT - Sinuses CompleteBy: Flakito DO, On: 17-Jan-2012 Intent Adelaida A Fast DO, Adelaida A PNEUM VAC ADLT/IMUMNOSPR, SBC/INTRM On: 17-Jan-2012 Intent (27237)By: Julia Escalante Comments: Lot:[id number]:3-Dose:0.5mLRoute:IMSite:L armGiven By:CHELA signed IMMUNIZ ADMNIN, 1 VAC, SNGL/COMBO On: 17-Jan-2012 Intent (32511)By: Julia Escalante CT - ChestBy: Fast DO, Adelaida A Fast On: 17-Jan-2012 Intent DO, Adelaida A Eprescribed prescriptions On: 17-Jan-2012 Intent (G8553)By: Leigh Ann Polk Eprescribed prescriptions On: 18-Oct-2011 Intent (G8553)By: Fast DO, Adelaida A Fast DO, Adelaida A EKG (43002)By: Fast DO, Adelaida A On: 15-Oct-2011 Intent Fast DO, Adelaida A Comments: ekg- sinus with normal axis and nsivcd and no acute changes Eprescribed prescriptions On: 09-Aug-2011 Intent (G8553)By: Fast DO, Adelaida A Fast DO, Adelaida A PFT - CompleteBy: Fast DO, Adelaida A On: 08-Mar-2011 Intent Fast DO, Adelaida A Pulse Oximetry (20529)By: Carmina On: 02-Feb-2011 Intent Samantha IRVIN Aerosol Treatment (59300)By: Carmina On: 02-Feb-2011 Intent Samantha IRVIN Radiology - Chest- PA and LatBy: On: 18-Jan-2011 Intent Fast DO, Adelaida A Fast DO, Adelaida A Pulse Oximetry (60388)By: Felicitas On: 18-Jan-2011 Intent Leigh Ann Comments: 93% TDAP VACCINE >7 IM ([id number])By: On: 07-Dec-2010 Intent Leigh Ann Polk Comments: Lot #:[id number] date:mount given:0.5mlRoute: IMSite given:left deltGiven by: DANIEL Zavaleta Eprescribed prescriptions On: 07-Dec-2010 Intent (G8553)By: Fast DO, Adelaida A Fast DO, Adelaida A FLU VAC, SPLIT, >3 YEARS, INTRAMUSC On: 07-Dec-2010 Intent ([id number])By: Leigh Ann Polk Comments: received at work Toradol Injection, 30 mg On: 05-Nov-2010 Intent ([id number])By: Elizabet Green DO Comments: Lot:[id number]:apr 05Amt:30mg/mlRoute:IMSite:left hip Given By: ILDA Tran Ear Irrigation ([id number])By: Peter On: 05-Nov-2010 Elizabet Thomson DO Comments: Left ear irrigated, large amt of wax removed. pt tolerated well. Eprescribed prescriptions On: 05-Nov-2010 Intent ([id number])By: Elizabet Green DO Wax CurettesBy: Elizabet Green DO On: 05-Nov-2010 Intent SPECIMEN HNDLNG/TRNSPRT, OFFC > LAB On: 05-Nov-2010 Intent ([id number])By: Elizabet Green DO Nuclear Medicine - HIDA w/CPKBy: On: 09-Oct-2010 Intent Fast DO, Adelaida A Fast DO, Adelaida A CT - ChestBy: Fast DO, Adelaida A Fast On: 06-Oct-2010 Intent DO, Adelaida A Comments: high resolution Ultrasound - GallbladderBy: Fast On: 06-Oct-2010 Intent DO, Adelaida A Fast DO, Adelaida A CT - Abdomen & Pelvis Stone On: 05-Oct-2010 Intent ProtocolBy: Fast DO, Adelaida A Fast Comments: stat call wet read DO, Adelaida A Spirometry ([id number])By: Flakito ACKERMAN, On: 14-Sep-2010 Intent Adelaida A Fast DO, Adelaida A Comments: good effort and curve- mild restriction Eprescribed prescriptions On: 14-Sep-2010 Intent ([id number])By: Fast DO, Adelaida A Fast DO, Adelaida A Pulse Oximetry ([id number])By: Fast DO, On: 14-Sep-2010 Intent Adelaida A Fast DO, Adelaida A Comments: 94-95 Radiology - Chest- PA and LatBy: On: 14-Sep-2010 Intent Fast DO, Adelaida A Fast DO, Adelaida A Pulse Oximetry ([id number])By: Carmina On: 23-Feb-2010 Intent ALBARO Anamaria Aerosol Treatment ([id number])By: Carmina On: 23-Feb-2010 Intent ALBARO Anamaria Pulse Oximetry ([id number])By: Carmina On: 26-Jan-2010 Intent ALBARO Anamaria Aerosol Treatment ([id number])By: Jossyesa On: 26-Jan-2010 Intent ALBARO Anamaria Spirometry ([id number])By: Felicitas On: 29-Apr-2008 Intent Leigh Ann Comments: good effort and curve normal EKG ([id number])By: Fast DO, Adelaida A On: 20-Apr-2007 Intent Fast DO, Adelaida A Comments: ekg showed normal sinus rhythym, normal axis, no acute st/t wave changes Echo CompleteBy: Fast DO, Adelaida A On: 20-Apr-2007 Intent Fast DO, Adelaida A CT - ChestBy: Fast DO, Adelaida A Fast On: 20-Apr-2007 Intent DO, Adelaida A Comments: please include right axilla Rocephin Injection, 2 Gram On: 27-Mar-2007 Intent ([id number])By: Fast DO, Adelaida A Fast Comments: Lot #: [id number] date: 10/30Amount given: 2 gramsRoute: IMSite given: Right hip and left hipGiven by: Calin Townsend LPN DO, Adelaida A Spirometry ([id number])By: Fast DO, On: 27-Mar-2007 Intent Adelaida A Fast DO, Adelaida A Comments: good effort and curve normal EBV SEROLOGIC TESTBy: Lab Mary Ann On: 17-Feb-2007 Intent RUDY-GUZMAN VCA ANTIBODY On: 16-Feb-2007 Intent MEASUREMENTBy: Mast RN, Negrita SPECIMEN HNDLNG/TRNSPRT, OFFC > LAB On: 06-Feb-2007 Intent ([id number])By: Fast DO, Adelaida A Fast DO, Adelaida A Ultrasound - TesticularBy: Fast DO, On: 13-Oct-2006 Intent Adelaida A Fast DO, Adelaida A Inhaler Demo ([id number])By: Fast DO, On: 26-Sep-2006 Intent Adelaida A Fast DO, Adelaida A Radiology - Hip - LeftBy: Fast DO, On: 26-Sep-2006 Intent Adelaida A Fast DO, Adelaida A Radiology - Hip - RightBy: Fast DO, On: 26-Sep-2006 Intent Adelaida A Fast DO, Adelaida A Bio Z ([id number])By: Fast DO, Adelaida A On: 25-Jul-2006 Intent Fast DO, Adelaida A Comments: normal paremters Six Minute Walk Assessment On: 25-Jul-2006 Intent ([id number])By: Fast DO, Adelaida A Fast DO, Adelaida A Radiology - Chest- PA and LatBy: On: 25-Jul-2006 Intent Fast DO, Adelaida A Fast DO, Adelaida A Spirometry ([id number])By: Fast DO, On: 25-Jul-2006 Intent Adelaida A Fast DO, Adelaida A Comments: good effort and curve- normal EDISON (Ankle Brachial Index) On: 20-Jul-2006 Intent ([id number])By: Leigh Ann Polk Comments: done EDISON (Ankle Brachial Index) On: 17-May-2006 Intent ([id number])By: Adelaida Fraga DO, DO, Debra A Cartoid DopplerBy: Adelaida Fraga DO On: 17-May-2006 Intent Adelaida Fraga DO Planned Medications INJECTION, KETOROLAC TROMETHAMINE, PER 15 MG Ordered: 05-Nov-2010 Pending Elizabet Green DO INJECTION, METHYLPREDNISOLONE SODIUM SUCCINATE, UP TO 125 MG Ordered: 09-May-2015 Pending Samantha Grewal CNP INJECTION, METHYLPREDNISOLONE SODIUM SUCCINATE, UP TO 125 MG Ordered: 18-Jan-2017 Pending Yola Witt Instructions Name Dates Details Right wrist pain : How to access health information online Indication: Right wrist pain Right wrist pain : How to access health information online - Detail Indication: Right wrist pain Right wrist pain : Patient Instructions Indication: Right wrist pain Hypertension, benign : How to access health [...] Advance Directives Name Dates Details Immunization Registry [place] - Effective on Effective: 31-Jan-201701/31/2017. Expiration date unspecified Encounters Office Visit On: 10-Mar-2018 9:19 Encounter Reason: Wrist Pain - This condition occurred without any known injury. Symptoms include wrist pain, swelling and decreased range of motion (has full range of motion but painful to move). Symptoms are located in End: 12-Mar-2018 23:17 the right wrist. The pain radiates to the right forearm. The patient describes the pain as sharp. Onset was 8 month(s) ago. The patient describes symptoms as worsening. Associated symptoms do not inclu de numbness in the hand. The patient is not currently being treated for this problem. Note for Wrist pain: no trauma- hurts if moves it - right lateral wrsit into forearm- - little swelling- no take anythign for it, [ADDITIONAL REASON] Knee Pain - This condition occurred without any known injury. Symptoms include knee pain (doesn't hurt at rest but will hurt with weight bearing) and difficulty bearing weight, whil e symptoms do not include swelling, warmth or decreased range of motion. Symptoms are located in the left knee. The patient describes the pain as sharp. Onset was week(s) ago. The patient describes symp toms as worsening. Symptoms are exacerbated by weight bearing. Episodes of knee pain first began 2 month(s) ago. Note for Knee pain: started out achy couple months ago- not that bad now causing limp a nd getting worse- - left medial knee- doesnt give - just hurts when turns certain ways - or walks on starts at top of kneecap and radiates medial joint not seen swelling- not taking anythign for this no trauma Encounter Diagnosis: Non-smoker, BMI 40.0-44.9, adult, Right wrist pain, Left knee pain, Moderate persistent asthma without complication [facility] Office Visit On: 06-Dec-2017 8:15 Encounter Reason: [...] he is going to go to the [facility]- and try to start exercising-, [ADDITIONAL REASON] [...] and goes- had for 11/[address] ight then on and off now for 2 [...] high - 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 Note for Physical exam: MDMARGYP Wellness Physical- he not taking singulair not [...] for Follow up ER: Pt went to [facility] and then went to [facility] to have the doppler done.- got [...] 2 days with bad UTI.- was at [facility] and getting cystoscopy done and was found to be retaining urine- - by the next night he was sick with no appetitie and just felt bad went to bed - woke up next day- and felt bad- and went to [facility]- and had uti- was there 2 1/2 [...] up hospital : Pt was transfered to [facility] for heart cath and discharged sat 06/30/13.- he had heart cath again at [facility] and one vessel which shows 20percent [...] problem. Note for Sore throat: signfiicant sinus marycalin holguin - he has been using flonase [...] energy level and is sleeping well. Patient ramirze End: 17-Jan-2012 21:30 s been compliant with [...] chronic medical issues: had colonsocopy- by [facility] couple polyps- and repeat 5 years- saw [...] kidney then goes down- b oralia regular- [facility] next tuesday- to try colonsocopy- -his breathing [...] saw a Dr Barker a psychiatrist in [place]- he thought mostly anxiety so left him [...] gerd- so he is going back to [facility]- mood good with celexa-less tense, [ADDITIONAL [...] crestor without problem- does have appt with [facility] for bowelsEncounter Diagnosis: Backache, unspecified (724.5), Dysthymic [...] for chronic medical issues: recent exposrue to strept - sa [facility]el[facility] Luna for his back -- though DDD [...] On: 17-May-2006 15:50 Encounter Reason: new patient male physicmarlon - Last seen between 1-3 months ago. [...] libido is decreased. Note for new patient male brendan: mood is well controlled and he is [...] [facility] Payers MedicarePrimetime Choices [place] guarantor
--- OUTSIDE RECORDS SUMMARY | 2018-05-15 00:35 | XMS RPT_ITS | Continuity of Care Document ---
:1950 Author Organization [facility] Address [address] [place] [address] Phone Care Team Providers Name Role Phone Adelaida Fraga DO Unavailable Remigio Lares MD Unavailable Tawanda Alonso Unavailable [facility] Unavailable Eliana Carter Unavailable [...] colonsoocpy 09/05- polyps - repeat 5 years [facility] Status: Active Coronary artery disease (I25.10, 414.00) [...] Solution daily for 90 days Quantity: 3 {[place]} Refills: 5 Ordered:31-Oct-2017 Fast DO, Adelaida AFast [...] A Start : 02-Nov-2017 Active Comments:sixtyDX: M54.16, M51.52844,411,000 - OD risk 100 Lunesta 3 MG Oral Tablet 1 (one) Tablet q hs for 30 days Quantity: 30 {Tablet} Refills: 2 Ordered:06-Mar-2018 DOManolocalin TOPETEtesfaye ACKERMAN Adelaida A Start : 06-Mar-2018 Active [...] than 1qd and would require pa at [phone] or [phone] - sent in this way to see [...] (Oral Capsule) 1 (one) Capsule Capsule bid r0wdjay for 21 days Quantity: 42 {Capsule} Refills: [...] : 02-Sep-2010 End : 05-Nov-2010 Inactive NYSTATIN, 038953DDOU/ML (Mouth/Throat Suspension) 10 cc tid for 0 [...] : 22-Jun-2013 End : 03-Sep-2013 Inactive ZOSTAVAX, 44340QXM/0.65ML (Subcutaneous Solution Reconstituted) 1 For Solution sc [...] Quantity: 3 {Inhaler} Refills: 3 Ordered:10-Apr-2014 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, Tracey Start : 22-Jun-2013 End : 10-Apr-2014 Discontinued ATENOLOL, 50MG (Oral Tablet) 1 tab Tablet qd for 30 days Quantity: 30 {Tablet} Refills: 0 Ordered:10-Apr-2014 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, Tracey Start : 12-Jun-2012 End : [...] Quantity: 60 {Capsule} Refills: 3 Ordered:10-Apr-2014 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, Tracey Start : 29-Oct-2013 End : 10-Apr-2014 Discontinued Dymista 137-50 MCG/ACT Nasal Suspension 1 spray each nostril qd for 0 days Quantity: 2 {[place]} Refills: 0 Ordered:11-Jun-2016 Leigh Ann Polk Start [...] Start : 05-Jan-2016 End : 06-Apr-2016 Discontinued Comments:alonABRA[facility]EN[facility]AL CAMPUSBrittney report#[id number]- [id number] viewed and approved- gave scripts to [...] Visit Report Result: Comments: See Note; NOTES: [facility] 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 Atheros clerosis of [place] coronary artery of [place] heart without angina pectoris I25.10 PTCA/RINA to [...] Code Off vis,est,level 3 Diagnoses Atherosclerosis of [place] coronary artery of [place] heart without angina pectoris I25.10 [place] vs. tra nsplanted heart: [place] heart Essential hypertension I10 Hypertension type: essential hypertension Pure hypercholesterolemia E78.00; E78.0 Hyperlipidemia type: pure hypercholesterolemia Prinzmetal angin a I20.1 Coding Level of Care Code Off vis,est,level 3 Diagnoses Atherosclerosis of [place] coronary artery of [place] heart without angina pectoris I25.10 [place] vs. transplanted heart: [place] heart Es sential hypertension I10 Hypertension type: essential hypertension Pure hypercholesterolemia E78.00; E78.0 Hyperlipidemia type: pure hypercholesterolemia Prinzmetal angina I20.1 01/10/18 1104 &#6 0;Electronically signed by Sabra KENDALL> Date Sabra KENDALL Cosigner Signature: Date (if applicable) CC: Adelaida Fraga DO 26-Sep-2017 Brain W/WO Contrast Result: Comments: See Note; NOTES: [facility] Imaging Services [address] [place] [address] Brain W/WO Contrast MR#: [id number] Acct: [id number] Name: YUMIKO LANDRUM Rep #: [id number] : 1950 M 67 From: Rodney Sarah MD PCP: Adelaida Fraga DO Status: REG CLI Study: Brain W/WO Contrast Date of Exam: 09/26/17 Exam# [id number] Ordering Dr: Perico Crowe MD STUDY: MRI [...] CC: Perico Crowe MD; Adelaida Fraga DO Media Aid: Signed 17-Sep-2017 Carotid Duplex Ultrasound Result: Comments: See Note; NOTES: [facility] Cardiovascular Services [address] [place] [address] Carotid Duplex Ultrasound 09/16/17 1012 MR#: [id number] Acct: [id number] Name: YUMIKO MCCOLLUM Rep #: [id number] : 1950 66 From: Jung Garcia MD Attending Dr: Adelaida Fraga DO Status: REG CLI Ordering Dr: Adelaida Fraga DO Date: 09/16/17 Location: [facility] Sex: M C Admitted: Reason For Study: [...] the left vertebral artery. Procedure Carotid Duplex 40229. The study was technically difficult. Exam performed [...] DO Date Dictated: 1012 Date Transcribed: 09/17/171510 Media Aid: Signed 17-Aug-2017 History and Physical Exam Result: Comments: See Note; NOTES: [facility] Medical Records Department [address] [place] [address] History and Physical 08/17/17913 MR#: [id number] Acct: [id number] Name: FRANCISCO E Rep #: [id number] : 1950 66 From: Remigio Lares MD PCP: Adelaida Fraga DO Status: REG [facility] Location: [facility] Problem List (1) Abnormal stress test Status: Acute (2) Atherosclerotic heart d isease of [place] coronary artery without angina pectoris Status: Chronic Qualifiers: [place] vs. transplanted heart: [place] heart Qualified Code(s): I25.10 - Atherosclerotic heart disease of [place] coron elise artery without angina pectoris Comment: [...] please see previously dictated out the patient TABLE MOUNTAIN from 07/14/2017. Review of systems: Upon review [...] this approach. This note was generated with TouchOfModern[employer] dictation software. It may contain incorrect words, spelling, and punctuation that were not noted in checking the note bef ore signing. 08/17/17 0925 <Electronically signed by Remigio Lares MD> Date Remigio Lares MD Cosigner Signature: Date (if applicable) CC: Adelaida Fraga DO; Remigio Lares MD Signed 11-Aug-2017 Chest PA and Lateral Result: Comments: See Note; NOTES: [facility] Imaging Services [address] [place], [place] [address] [address] Chest PA and Lateral MR#: [id number] Acct: [id number] Name: YUMIKO LANDRUM Rep #: [id number] : 1950 M 66 From: Will Guerrero MD PCP: Adelaida Fraga DO Status: REG CLI Study: Chest PA and Lateral Date of Exam: 08/11/17 Exam# [id number] Ordering Dr: Remigio Lares MD STUDY: X-RAY [...] CC: Adelaida Fraga DO; Remigio Lares MD Media Aid: Signed 02-Aug-2017 Stress Report Result: Comments: See Note; NOTES: [facility] Cardiovascular Services [address] [place] [address] MR#: [id number] Acct: [id number] Name: YUMIKO LANDRUM Rep #: [id number] : [birth year] 66 From: Remigio Lares MD [...] 72 %. This note was generated with Catchoom software. It may contain incorrect words, spelling, and punctuation that were not noted in checking the note before signing. 08/02/17 0768 <Electronically signed by Remigio Lares MD> Date Remigio Lares MD CC: Adelaida Fraga DO; Remigio Lares MD Date Dictate d: 08/02/171638 Date Transcribed: 08/02/171638 Media Aid: PM Signed 24-May-2018 Cardiology Visit Report Result: Comments: See Note; NOTES: [facility] [address] [place] [address] OFFICE VISIT Date of Service: 07/14/17 MR#: [id number] Acct: [id number] Name: YUMIKO LANDRUM Rep #: [id number] : 1950 Provider: Remigio Lares MD Age/Sex: 66/M Location: [facility] Status: Signed HPI HPI Details: YUMIKO LANDRUM, is a 66 M who presents to the office today for outpatient card iovascular consultation for history of underlying CAD status post LAD PCI. He has been cared for in the past both by the [facility] members (Drs. Griggs and Edwin), at [facility] by Dr. Rosales, and at [facility] by Dr. Maury Veliz. He states he lost saw Dr. Veliz approximately 1 year ago. He is now relocating his care locally. He has a history of underlying CAD. He underwent a previous diagnostic car diac catheterization on 08/11/2005 at [facility]. At that point in time he [...] no significant stenosis. In April 2008, at [facility], he had a repeat diagnostic cardiac [...] luminal irregularities. He apparently was transferred to [facility] for further evaluation and care. The results [...] an LYNDSEY inhibitor. He believes his former strategic communications manager remove these medications from nm s medication list. He does not recall [...] Prinzmetal angina (Acute) Atherosclerotic heart disease of [place] coronary artery without angina pectoris (Chroni c) [...] affect Assessment AND Plan 1. Atherosclerosis of [place] coronary artery of [place] heart without angina pectoris I25.10 PTCA/RINA to [...] Code Off vis,new,level 4 Diagnoses Atherosclerosis of [place] coronary artery of [place] heart without angina pectoris I25.10 [place] vs. transplanted heart: n ative heart Presence of stent in coronary artery Z95.5 Hyperlipidemia, unspecified hyperlipidemia type E78.5 Hyperlipidemia type: unspecified Essential hypertension I10 Hypertension type: essential hype rtension COPD (chronic obstructive pulmonary disease) J44.9 Coding Level of Care Code Off vis,new,level 4 Diagnoses Atherosclerosis of [place] coronary artery of [place] heart without angina pectoris I 25.10 [place] vs. transplanted heart: [place] heart Presence of stent in coronary artery Z95.5 Hyperlipidemia, unspecified hyperlipidemia type E78.5 Hyperlipidemia type: unspecified Essential hypertension I10 Hypertension type: essential hypertension COPD (chronic obstructive pulmonary disease) J44.9 07/14/17 1558 <Electronically signed by Remigio Lares MD> Date Remigio Lares MD Cosign Signature: Date (if applicable) CC: Adelaida Fraga DO 14-Jul-2017 12 Lead EKG performed by [facility] Result: Comments: See Note; NOTES: [facility] [address] [place] [address] 12 Lead EKG performed by [facility] 07/14/171435 MR#: [id number] Acct: [id number] Name: YUMIKO LANDRUM Rep #: [id number] : 1950 66 From: Remigio Lares MD Attending Dr: Remigio Lares MD Status: DEP [facility] Ordering Dr: Remigio Lares MD Date: 07/14/17 [place] [facility] Sex: M C Admitted: BMS/12 Lead EKG performed by [facility] ECG Report Interpretation Sinus Rhythm Right bundle branch block. ABNORMAL Electronically signed on 07/14/2017 at 17:15 by Remigio Lares 07/14/17 1717 Date Remigio Lares MD CC: Adelaida Fraga DO Date Dictated: 07/14/171435 Date Transcribed: 07/14/171435 Media Aid: PM Signed 04-Jul-2017 TXT - Blood Flow Screening Result: Comments: See Note; NOTES: [facility] Cardiovascular Services [address] [place] [address] 07/04/17 0840 MR#: [id number] Acct: [id number] Name: YUMIKO LANDRUM Rep #: [id number] [...] (1.0 or greater). Ordering Physician: Adelaida Fraga [facility] Physician: Adelaida Fraga Performed By: Kayla Kelley, RDLEANNE, RVT 07/04/17 2222 Date Tyrese Garcia MD CC: Adelaida Fraga DO Date Dictated: 07/04/17 0840 Date Transcribed: 07/04/172221 Media Aid: Signed 06-Jun-2017 L/S Spine Min 4 Views Result: Comments: See Note; NOTES: [facility] Imaging Services [address] [place] [address] L/S Spine Min 4 Views MR#: [id number] Acct: [id number] Name: YUMIKO LANDRUM Rep #: [id number] : 1950 M 66 From: Rafael Manley DO PCP: Adelaida Fraga DO Status: REG CLI Study: L/S Spine Min 4 Views Date of Exam: 06/06/17 Exam# [id number] Ordering Dr: Adelaida Fraga DO STUDY: X-RAY [...] Rafael Manley DO at 18:01 EDT Tel [phone], Service support , CC: Adelaida Fraga DO Media Aid: Signed 18-Feb-2017 Ankle min 3 Views Result: Comments: See Note; NOTES: [facility] Imaging Services [address] [place] [address] Ankle min 3 Views MR#: [id number] Acct: [id number] Name: YUMIKO LANDRUM Rep #: [id number] D OB: 1950 M 66 From: Trevon Carrillo MD PCP: Adelaida Fraga DO Status: REG CLI Study: Ankle min 3 Views Date of Exam: 02/18/17 Exam# [id number] Ordering Dr: Adelaida Fraga DO STUDY: X-RAY [...] Service support , CC: Adelaida Fraga DO Media Aid: Signed 18-Feb-2017 Chest without Contrast Result: Comments: See Note; NOTES: [facility] Imaging Services [address] [place] [address] Chest without Contrast MR#: [id number] Acct: [id number] Name: YUMIKO LANDRUM Rep #: [id number] : 1950 M 66 From: Kaitiln Campoverde PCP: Adelaida Fraga DO Status: REG CLI Study: Chest without Contrast Date of Exam: 02/18/17 Exam# [id number] Ordering Dr: Adelaida Fraga DO STUDY: CT [...] Service support , CC: Adelaida Fraga DO Media Aid: Signed 10-Feb-2017 Chest PA and Lateral Result: Comments: See Note; NOTES: [facility] Imaging Services [address] [place] [address] Chest PA and Lateral MR#: [id number] Acct: [id number] Name: YUMIKO LANDRUM Rep #: [id number] : 1950 M 66 From: Chava Fu MD PCP: Adelaida Fraga DO Status: REG CLI Study: Chest PA and Lateral Date of Exam: 02/10/17 Exam# [id number] Ordering Dr: Yola Witt STUDY: X-RAY CHEST [...] , CC: COCO Witt; Adelaida Fraga DO Media Aid: Signed 18-Jan-2017 Chest PA and Lateral Result: Comments: See Note; NOTES: [facility] Imaging Services [address] [place] [address] Chest PA and Lateral MR#: [id number] Acct: [id number] Name: YUMIKO LANDRUM Rep #: [id number] : 1950 M 66 From: Erwin Jiménez MD PCP: Adelaida Fraga DO Status: REG CLI Study: Chest PA and Lateral Date of Exam: 01/18/17 Exam# [id number] Ordering Dr: Yola Witt NP-C STUDY: X-RAY [...] EST Tel , Service support , CC: DIRECT SELLING COUNSELOR-C Yola Witt; Adelaida Fraga DO Media Aid: Signed 11-Apr-2015 Chest PA and Lateral Result: Comments: See Note; NOTES: [facility] Imaging Services [address] [place] [address] Verdana 4d Chest PA and Lateral MR#: [id number] Acct: [id number] Name: YUMIKO LANDRUM Rep #: [id number] : 1950 M 64 From: Stephen Barba MD PCP: Adelaida Fraga DO Status: REG CLI Study: Chest PA and Lateral Date of Exam: 04/11/15 Exam# [id number] Ordering Dr: Adelaida Fraga DO STUDY: X-RAY [...] FACR at 20:20 EST , Service support [phone], RAD/Chest PA and Lateral IMPRESSION: Normal x-ray examination of the chest. No lingular infiltrate is noted on today's examination Electronically Signed: Stephen Barba MD, FACR at 20:20 EST , Service support [phone], CC: Adelaida Fraga DO Media Aid: Signed 11-Apr-2015 Hip min 2 Views Result: Comments: See Note; NOTES: [facility] Imaging Services [address] [place] [address] Verdana 4d Hip min 2 Views MR#: [id number] Acct: [id number] Name: DOMINICKNATHAN QUIÑONEZNI Brittney Brandon Rep #: [id number] : 1950 64 From: Stephen Barba MD PCP: Adelaida Fraga DO Status: REG CLI Study: Hip min 2 Views Date of Exam: 04/11/15 Exam# [id number] Ordering Dr: Adelaida Fraga DO ST UDY: [...] FACR at 20:19 EST , Service support [phone], RAD/Hip min 2 Views IMPRESSION: Normal x-ray examination of the pelvis and hip. Electronically Signed: Stephen Barba MD, FACR 201 07/23/18 at 20:19 EST , Service support [phone], CC: Adelaida Fraga DO Media Aid: Signed 11-Apr-2015 L/S Spine Min 4 Views Result: Comments: See Note; NOTES: [facility] Imaging Services [address] [place] [address] Verda 4d L/S Spine Min 4 Views MR#: [id number] Acct: [id number] Name: YUMIKO LANDRUM Rep #: [id number] : 1950 M 64 From: Stephen Barba MD PCP: Adelaida Fraga DO Status: REG CLI Study: L/S Spine Min 4 Views Date of Exam: 04/11/15 Exam# [id number] Ordering Dr: Susannah Fraga ra, DO STUDY: [...] FACR at 20:20 EST , Service support [phone], RAD/L/S Spine Min 4 Views IMPRESSION: M ild degenerative disc disease at L2-3 and L5-S1. Facet arthrosis at L4-5 and L5-S1. Mild dextroscoliosis. Electronically Signed: Stephen Barba MD, FACR at 20:20 EST Tel , Service support [phone], CC: Adelaida Fraga DO Media Aid: Signed 27-Aug-2014 Chest PA and Lateral Result: Comments: See Note; NOTES: [facility] Imaging Services [address] [place] [address] Radiology Report MR#: [id number] Acct: [id number] Name: YUMIKO LANDRUM Rep #: [id number] : 1950 M 63 From: Wilfredo Alvarado MD PCP: Adelaida Fraga DO Status: REG CLI Study: Chest PA and Lateral Date of Exam: 08/27/14 Exam# [id number] Ordering Dr: Adelaida Fraga DO STUDY: X- [...] Wilfredo Alvarado MD at 15:46 EDT Tel [phone], Service support [phone], 0079 RAD/Chest PA and Lateral IMPRESSION: Inc reased markings in the lingular segment of the left upper lobe suggestive of early infiltrate. Followup is recommended. Electronically Signed: Wilfredo Alvarado MD at 15:46 EDT Tel [phone], Service support [phone], CC: Adelaida Fraga DO Media Aid: Signed 02-Jul-2013 12 Lead Electrocardiogram Result: Comments: See Note; NOTES: [facility] Cardiovascular Services [address] [place] [address] 12 Lead EKG 06/17/13 1938 MR#: [id number] Acct: [id number] Name: CITLALLI LANDRUM Rep #: [id number] : 1950 62 From: Remigio Lares MD [...] DO Date Dictated: 06/17/131937 Date Transcribed: 06/17/131937 Media Aid: Signed 30-Jun-2013 Emergency Department Summary Result: Comments: See Note; NOTES: [facility] Medical Records Department [address] [place] [address] Emergency Department Summary MR#: [id number] Acct: [id number] Name: YUMIKO LANDRUM Rep #: [id number] : 1950 62 From: Jose Fernando MD PCP: Adelaida Fraga DO Status: DEP ER DATE OF SERVICE: 06/28/2013 CHIEF COMPLAINT: Chest pain. HISTORY OF PRESENT ILLNESS: The patient states over the past 8 hours, he has had intermittent discomfort in the chest of burning to ache similar to angina. He had an LA, he thinks, back in 2011 when he had a stent placed by Dr. Mariah carr in [facility]. He has been off his blood [...] sensation, cranial nerve function and treatment. [facility] DEPARTMENT COURSE: Portable one-view chest x-ray [...] a 3. He agreed to go to [facility] where his strategic communications manager is in case he needs another cath and stent. He was stable for transfer. [facility] and Dr. Trujillo as salsa dance instructor accepted the patient after being advised of all the above through the transfer meat team member. He did not want to talk to me. The patient is stable for transfer, with him. DIAGNOSES: 1. Chest pain. 2. Unstable angina. MD Abdullahi Vasquez C: Adelaida Fraga DO T: NTS JOB: [id number] 06/30/13 0021 <Electronically signed by Jose Fernando MD> Date Jose Fernando MD CC: Adelaida Fraga DO Date Dictated: 06/28/13 2255 Date Transcribed: 06/28/132254 Media Aid: Signed 28-Jun-2013 Chest 1 View (Portable) Result: Comments: See Note; NOTES: [facility] Imaging Services [address] [place] [address] Radiology Report MR#: [id number] Acct: [id number] Name: YUMIKO LANDRUM Rep #: [id number] : 1950 M 62 From: Wilfredo Alvarado MD PCP: Adelaida Fraga DO Status: DEP ER Study: Chest 1 View (Portable) Date of Exam: 06/28/13 Exam# [id number] Ordering Dr: Jose Fernando MD STUDY: X-RAY [...] Wilfredo Alvarado MD at 9:06 EDT Tel [phone], Service support [phone], CC: Adelaida Fraga DO; Jose Fernando MD Media Aid: Signed Immunization Name Dates Details Influenza vaccine, split, 3yrs &>, IM (AFLURIA) on: Nov-2017 Influenza, inj, MDCK, preservative free, q.valent on: 07-Dec-2016 Comments: Site: Lot #: [id number] Family History Unknown Family Member Name Dates [...] Active 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 [place], [place], [address] Absolute Lymph 1.76 {X10_3/ul} (Normal) Range: 0.83-4.51 [...] 4.6-6.2 WBC 5.7 K/mm3 (Normal) Range: 4.4-11.0 99-Xgm-352452:31 Comprehensive Metabolic Profil Comments: [facility] [address] [place], [place], [address] ; fu 10-16 DF GAP 9 (Normal) [...] A.D.A. criteria.Please note revised GLUCOSE reference range eglekzrqw84/02/2018. 89-Xge-011254:31 Hemoglobin A1c Comments: [facility] [address] [place], [address] HGB A1C 6.0 % (Normal) Range: 4.2-6.3 72-Lcc-974269:31 Lipid Profile Comments: [facility] [address] [place], [address] VLDL 24 mg/dL (Normal) Range: 5-40 LDL [...] 200-240 mg/dL Borderline >240 mg/dL High Risk 80-Mea-314792:31 PSA,Total - Annual Screen Comments: [facility] [address] [place], [place], [address] PSA,TOT SCREEN 0.50 ng/mL (Normal) Range: 0.00-4.00 Comments: This test was performed using the TPSA assay method for the365Scores chemistry system. Values obtained with differentassay methods cannot be used interchangably.When changing PSA assays in the course of monitoring apatient, additional sequential testing should be carriedout to confirm baseline values. 03-Zsb-243419:42 Aspergillus Antibodies Comments: [facility] (refer to report for specific site)refer to report for address and phone number Asp. niger Negative (Normal) Asp. flavus Negative (Normal) Asp. fumigatus Negative (Normal) 06-Sje-612860:42 Immunoglobulin E Comments: [facility] (refer to report for specific site)refer to report for address and phone number IMMUNO E 19 {IU/mL} (Normal) Range: 0-100 43-Hml-161734:42 Immunoglobulin G Comments: [facility] (refer to report for specific site)refer to report for address and phone number IMMUNO G 702 mg/dL (Normal) Range: 700-1600 Comments: Performed at: [address] [id number] Director: Joseph Velez MD, Phone: [phone] at: [address] [id number] Director: Hugo Britt PhD, Phone: [phone] 41-Heg-268945:42 Miscellaneous Lab Comments: Comments: [id number] CASTRO,RTTest(s) Ordered: [facility] [address] [place], [address] Procedure MISC Comments: TEST RESULT UNITS REFERENCE INTERVALA. fumigatus #1 Abs NEGATIVE NEGATIVE TESTING PERFORMED AT [facility]. O LAB (Normal) RIGINAL REPORT ON FILE IN LAB CONTAINS ADDITIONAL TEST SITE INFORMATION. TEST 8-Mzm-812290:28 Acetylcholine Receptor Comments: Has Patient had Radioactive In[facility] for X-ray?: [facility]refer to [facility] for specific site)refer to report for address and phone number ACTYL [id number] < 0.03 nmol/L (Normal) Range: 0.00-0.24 Comments: Negative: 0.00 - 0.24 Borderline: 0.25 - 0.40 Positive: > 0.40Performed at: [place] [address] [address] [id number] Director: Joseph Velez MD, Phone: [id number] 1-Nxc-549935:28 BUN 9 mg/dL (Normal) Comments: [facility] [address] [place], [address] Range: 7-18 7-Jyz-227256:28 Serum Creatinine AND GFR Comments: [address] [place], [address] EST GFR - AA 100 mL/min (Normal) Comments: GFR Calc EST GFR 83 mL/min (Normal) Comments: Non- GFR Calc CREAT,SERUM 0.97 mg/dL (Normal) Range: 0.70-1.30 Comments: The validity of the calculated GFR AND GFRAA in patients over70 years has not been determined. Clinical correlation isessential. 41-Khn-845911:13 Culture, Fungus 8482 Comments: [place] [address] [place], [address] CUF See Note Comments: Cu,Fqlghx3362 TESTING PERFORMED AT [facility]. ORIGINAL REPORT ON FILE IN LAB CONTAINS ADDITIONAL TEST SITE INFORMATION. (Normal) ORGANISM 1: Barron albicansAmount Growth Growth ORGANISM 2: Penicillium speciesAmount Growth Growth 92-Eyx-371452:13 Culture, Sputum Comments: [place] [address] [place], [address] CUSP See Note (Normal) Comments: Gram StainAcceptable Specimen? Yes (<25 Epithelial cells per/lpf) Gram Stain 2+ White Blood Cells 2+ Epithelial cells 4+ Gram positive cocci 4+ Gram positive rods Resp. CultureNo Haemoph ilus, Streptococcus pneumoniae, beta-hemolytic Streptococcus or Staphylococcus aureus isolated. ORGANISM 1: Yeast Like OrganismAmount Growth Rare ORGANISM 2: Mixed FloraAmount Growth 3+ :59 CBC W/Diff, Automated Comments: [facility] Xictndghgf[address] [place], [address] Absolute Lymph 1.98 {X10_3/ul} (Normal) Range: 0.83-4.51 [...] 4.6-6.2 WBC 10.8 K/mm3 (Normal) Range: 4.4-11.0 84-Lyn-750721:59 Comprehensive Metabolic Profil Comments: [facility] [address]ubfpx[address] [place], [place], [address] GAP 10 (Normal) Range: 5-15 CO2 27.0 [...] A.D.A. criteria.Please note revised GLUCOSE reference range gniwwxoyb05/02/2018. 98-Aia-130212:59 Hemoglobin A1c Comments: [facility] [address] [place], [place], [address] HGB A1C 6.2 % (Normal) Range: 4.2-6.3 35-Ait-273377:59 Lipid Profile Comments: [facility] Ggfionbmug[address] [place], [place], [address] VLDL 13 mg/dL (Normal) Range: 5-40 LDL [...] 200-240 mg/dL Borderline >240 mg/dL High Risk 90-Bhg-586928:59 Microalb:Creat Ratio,Random UR Comments: [facility] Ocod[address] [place], [place], [address] MALB:CREAT 10.1 {mg/g_CRE} (Normal) MICROALBUMIN,UR 5.6 mg/L (Normal) UR CREAT 55.70 mg/dL (Normal) 7-Vio-496115:45 Basic Metabolic Profile (BMP) Comments: [facility] Ztzfve[address] [place], [place], [address] GAP 6 (Normal) Range: 5-15 CO2 29.0 [...] Comments: Please note revised GLUCOSE reference range mpduxtxvy54/02/2018. 3-Jyx-472894:45 Lipid Profile Comments: [facility] [address] [place], [place], [address] VLDL 22 mg/dL (Normal) Range: 5-40 LDL [...] 200-240 mg/dL Borderline >240 mg/dL High Risk 4-Eqk-681540:45 Liver Profile Comments: [facility] Lslmizkfpk[address] [place], [place], [address] D BILI 0.13 mg/dL (Normal) Range: 0.00-0.30 T BILI 0.50 mg/dL (Normal) Range: 0.20-1.00 ALT 27 U/L (Normal) Range: 16-61 ALK P 53 U/L (Normal) Range: 45-117 AST 20 U/L (Normal) Range: 15-37 GLOB 4.3 g/dL (Abnormal) Range: 2.2-4.2 ALB 3.0 g/dL (Abnormal) Range: 3.2-5.0 T PROT 7.3 g/dL (Normal) Range: 6.4-8.2 99-Xxt-375280:31 Basic Metabolic Profile (BMP) Comments: [facility] Dwtrquupjn[address] [place], [place], [address] GAP 4 (Abnormal) Range: 5-15 CO2 27.0 [...] A.D.A. criteria.Please note revised GLUCOSE reference range aaswwykzy52/02/2018. 00-Gwd-138714:31 CBC-Complete Blood Cnt No Diff Comments: [facility] F[address]our[address] [place], [place], [address] MPV 8.7 fL (Normal) Range: 6.2-12.0 PLT [...] 4.6-6.2 WBC 9.6 K/mm3 (Normal) Range: 4.4-11.0 63-Uet-313784:31 Partial Thromboplast Time Comments: [place] [address] [place], [address] PTT 26.1 s (Normal) Range: 24.1-36.2 74-Udu-748308:31 Prothrombin Time w/INR Comments: [address] [place], [address] INR 0.9 (Normal) PROTIME 12.5 s (Normal) Range: 11.7-14.9 :00 Culture, Fungus 8482 Comments: [address] [place], [address] CUF See Note Comments: Cu,Unapdg0358 TESTING PERFORMED AT [facility]. ORIGINAL REPORT ON FILE IN LAB CONTAINS ADDITIONAL TEST SITE INFORMATION. (Normal) ORGANISM 1: Barron albicansAmount Growth Growth ORGANISM 2: Penicillium speciesAmount Growth Growth ORGANISM 3: Aspergillus speciesAmount Growth Growth 02-Dol-04967:00 Culture, Sputum Comments: [address] [place], [address] CUSP See Note (Normal) Comments: Gram StainAcceptable Specimen? Yes (<25 Epithelial cells per/lpf) Gram Stain 1+ White Blood Cells Rare Epithelial cells 4+ Gram positive rods 1+ Gram negative rods Resp. Culture Mixed nor mal respiratory ashkan. No Haemophilus, Streptococcus pneumoniae, beta-hemolytic Streptococcus or Staphylococcus aureus isolated. 47-Pkg-337862:00 Culture, Sputum Comments: [address] [place], [address] CUSP See Note (Normal) Comments: Gram StainAcceptable Specimen? Yes (<25 Epithelial cells per/lpf) Gram Stain 1+ White Blood Cells Rare Epithelial cells 3+ Gram positive cocci Resp. CultureMixed normal respiratory ashkan. No Haemophilus, Streptococcus pneumoniae, beta-hemolytic Streptococcus or Staphylococcus aureus isolated. 51-Asb-118612:44 TESTOSTERONE FREE (58820) Comments: PATIENT NOT FASTINGPERFORMED BY: [address] [id number] BY: [address] [id number] Free Testosterone(Direct) 2.6 pg/mL (Abnormal) Range: 6.6-18.1 46-Wzl-529991:44 HEPATITIS C ANTIBODY Comments: PATIENT NOT FASTINGPERFORMED BY: [address] [id number] BY: [address] [id number] ([address]) Hep C Virus Ab 0.1 {s/co_ratio} (Normal) Range: 0.0-0.9 Comments: Negative: < 0.8 Indeterminate: 0.8 - 0.9 Positive: > 0.9 . The CDC recommends that a positive HCV antibody result be followed up with a HCV Nucleic Acid Amplification test (179988). 02-Rnj-004755:44 CBC W/AUTO DIFF WBC Comments: PATIENT NOT FASTINGPERFORMED BY: [address] [id number] BY: [address] [id number] (21836) Immature Grans (Abs) 0.0 {x10E3/uL} (Normal) Range: [...] 4.14-5.80 WBC 6.1 {x10E3/uL} (Normal) Range: 3.4-10.8 40-Zcl-313882:44 METABOLIC PANEL, Comments: PATIENT NOT FASTINGPERFORMED BY: CB [facility] Ybesae6535 [facility] [id number] BY: BN [facility] [address] [id number] COMPREHENSIVE (15088) ALT (SGPT) 17 [iU]/L (Normal) Range: 0-44 [...] 8-27 Glucose 102 mg/dL (Abnormal) Range: 65-99 67-Ncn-720804:15 HgA1C , Office (51684) HgA1C , Office 5.7 % (Normal) Range: 4.6 - 7.1 70-Uws-863732:30 CBC W/Diff, Automated Comments: [facility] [address] [place], [place], [address] Absolute Lymph 1.76 {X10_3/ul} (Normal) Range: 0.83-4.51 [...] 4.6-6.2 WBC 6.7 K/mm3 (Normal) Range: 4.4-11.0 55-Eyf-923349:30 Comprehensive Metabolic Profil Comments: [facility] [address] [place], [place], [address] GAP 9 (Normal) Range: 5-15 CO2 25.0 [...] 7-18 GLU 78 mg/dL (Normal) Range: 70-110 42-Rds-770786:30 Culture, Urine Comments: [facility] [address] [place], [address] CUUR See Note (Normal) Comments: Urine CultureCulture exhibits no growth. 29-Are-200948:30 Lipid Profile Comments: [facility] [address]ipv[address] [place], [address] VLDL 19 mg/dL (Normal) Range: 5-40 LDL [...] 200-240 mg/dL Borderline >240 mg/dL High Risk 99-Jny-380419:10 Rapid Strep Test, Office (13824) Comments: Negative Rapid Strep Test, Office Negative (Normal) 60-Cqx-15010:51 THROAT CULTURE (07414) Comments: PATIENT NOT FASTINGPERFORMED BY: [employer] [facility] [id number] Information: SRC: Result 1 RRF (Normal) Comments: Routine respiratory ashkan Upper Respiratory Culture Final report (Normal) 56-Pel-341150:02 Rapid Flu (73240 x 2) Comments: Negative Influenza A Ag Negative (Normal) 18-Qgn-724574:45 URINE WARREN CULTURE-IDENTIFICATN Comments: PERFORMED BY: [employer] LabRobert Applebaum MD [facility] [id number] Information: SRC: (32313) Result 1 NG36 (Normal) Comments: No growth in 36 - 48 hours. Urine Culture,Comprehensive Final report (Normal) 48-Tob-863147:02 Urinalysis, Office (23742) UA - LEUKOCYTE ESTERASE Negative (Normal) UA - NITRITE Negative (Normal) URINE UROBILINGN MASSIEL TIMED Normal mg/dL (Normal) UA - PROTEIN Negative mg/dL (Normal) UA - PH 7 (Normal) UA - BLOOD Negative (Normal) UA - SPECIFIC GRAVITY 1.020 (Normal) UA - KETONES Negative mg/dL (Normal) UA - BILIRUBIN Negative (Normal) UA - GLUCOSE Negative (Normal) 58-Dfb-711478:22 CBC W/Diff, Automated Comments: [facility] [address] [place], [place], [address] Absolute Lymph 1.50 {X10_3/ul} (Normal) Range: 0.83-4.51 [...] 4.6-6.2 WBC 6.2 K/mm3 (Normal) Range: 4.4-11.0 29-Fpl-175924:22 Comprehensive Metabolic Profil Comments: [facility] Nivsxpdost5827 [facility] [address] [place], [place], [address] ; will review opn 11/10 GAP 7 [...] 7-18 GLU 104 mg/dL (Normal) Range: 70-110 80-Iaq-211303:22 Hemoglobin A1c Comments: [facility] Iqnwyfyccr3436 [facility] [place], [address] HGB A1C 5.6 % (Normal) Range: 4.2-6.3 13-Hsq-944408:22 Immunofixation, Serum Comments: [facility] (refer to report for specific site)refer to report for address and phone number PAULA RESULT,S Comment (Normal) Comments: No monoclonality detected. IMMUNOGL M 53 mg/dL (Normal) Range: 20-172 IMMUNO A 169 mg/dL (Normal) Range: 61-437 IMMUNO G 692 mg/dL (Abnormal) Range: 700-1600 68-Cyc-896464:22 Julian [employer] Ch[employer] Comments: [facility] (refer to report for specific site)refer to report for address and phone number KAPPA/LAMBDA % 1.17 (Normal) Range: 0.26-1.65 Comments: Performed at: [address] [id number] Director: Hugo Britt PhD, Phone: [phone] FR LAMBDA LT CH 12.3 mg/L (Normal) Range: 5.7-26.3 FR KAPPA LT CHN 14.4 mg/L (Normal) Range: 3.3-19.4 18-Hlj-267831:22 Lipid Profile Comments: [facility] [address] [place], [address] VLDL 20 mg/dL (Normal) Range: [...] 200-240 mg/dL Borderline >240 mg/dL High Risk 12-Gxd-661327:22 Microalb:Creat Ratio,Random UR Comments: [facility] [address] [place], [place], [address] ; will review on 11/10 MALB:CREAT 5.6 {mg/g_CRE} (Normal) MICROALBUMIN,UR 7.2 mg/L (Normal) UR CREAT 128.00 mg/dL (Normal) 87-Plg-433898:22 PSA,Total - Annual Screen Comments: [facility] [address] [place], [address] PSA,TOT SCREEN 0.63 ng/mL (Normal) Range: 0.00-4.00 Comments: This test was performed using the TPSA assay method for [employer] chemistry system. Values obtained with differentassay methods cannot be used interchangably.When changing PSA assays in the course of monitoring apatient, additional sequential testing should be carriedout to confirm baseline values. 09-Bxn-619154:07 CBC W/Diff, Automated Comments: [facility] [address]repqcxol[address] [place], [address] Absolute Lymph 1.42 {X10_3/ul} (Normal) Range: 0.83-4.51 [...] Range: 4.4-11.0 :07 Comprehensive Metabolic Profil Comments: [facility] [address] [place], [place], [address] GAP 8 (Normal) Range: 5-15 CO2 27.0 [...] 7-18 GLU 104 mg/dL (Normal) Range: 70-110 60-Ssr-971888:07 Hemoglobin A1c Comments: [facility] [address] [place], [place], [address] HGB A1C 5.6 % (Normal) Range: 4.2-6.3 35-Bfc-507584:07 PAULA + Protein Elect, Serum Comments: Is Patient F[facility]? [facility] (refer to report for specific site)refer to report for address and phone number NOTE: Comment (Normal) Comments: Protein electrophoresis scan will follow via computer,mail, or syrup blender delivery.Performed at: [address] [id number] Director: Hugo Britt PhD, Phone: [phone] PAULA RESULT,S Comment (Normal) Comments: No monoclonality detected. A/G RATIO 1.2 (Normal) Range: 0.7-1.7 GLOBULIN, TOTAL 3.0 g/dL (Normal) Range: 2.2-3.9 M-SPIKE g/dL (Normal) Comments: Not Observed GAMMA GLOBULIN 0.7 g/dL (Normal) Range: 0.4-1.8 BETA GLOBULIN 1.1 g/dL (Normal) Range: 0.7-1.3 DXWCZ-6-LPHI 0.8 g/dL (Normal) Range: 0.4-1.0 UGZSJ-1-YFWI 0.3 g/dL (Normal) Range: 0.0-0.4 ALBUMIN 3.3 g/dL (Normal) Range: 2.9-4.4 IMMUNOGL M 53 mg/dL (Normal) Range: 20-172 IMMUNO A 177 mg/dL (Normal) Range: 61-437 IMMUNO G 761 mg/dL (Normal) Range: 700-1600 PROTEIN,TOTAL 6.3 g/dL (Normal) Range: 6.0-8.5 39-Hnu-908462:07 Lipid Profile Comments: [facility] [address] [facility] [place], [place], [address] VLDL 21 mg/dL (Normal) Range: 5-40 LDL [...] 200-240 mg/dL Borderline >240 mg/dL High Risk 47-Noa-851479:01 CBC W/Diff, Automated Comments: [facility] [address]pts[address] [place], [address] Absolute Lymph 1.62 {X10_3/ul} (Normal) [...] 4.6-6.2 WBC 7.6 K/mm3 (Normal) Range: 4.4-11.0 92-Akd-735025:01 Comprehensive Metabolic Profil Comments: [facility] Ufryseanko[address] [place], [place], [address] ; has apt today GAP 7 (Normal) [...] 7-18 GLU 96 mg/dL (Normal) Range: 70-110 54-Fzm-333806:01 Lipid Profile Comments: [facility] Q[address]rxjvx[address] [place], [place], [address] VLDL 11 mg/dL (Normal) Range: 5-40 LDL [...] 200-240 mg/dL Borderline >240 mg/dL High Risk 35-Pfd-210856:01 Lipoprotein A 369 nmol/L (Abnormal) Comments: [facility] [...] genetic factors on Lp(a) across ethnicities.Performed at: [place] [address] [id number] Director: Huog Britt PhD, Phone: [phone] 08-Zua-028808:56 HgA1C , Office (91100) HgA1C , Office 5.6 % (Normal) Range: 4.6 - 7.1 2-Qrs-756500:19 ANCA Panel Comments: PATIENT NOT FASTINGPERFORMED BY: [facility] [address] [facility] [id number] BY: [address] [id number] Atypical pANCA <1:20 {titer} Comments: The atypical [...] Antinuclear Antibodies Comments: PATIENT NOT FASTINGPERFORMED BY: [address] [id number] BY: [facility]6370 [facility] [id number] Direct JOHN Direct Negative (Normal) 7-Byh-345929:1 C-Reactive Protein, 2.1 mg/L (Normal) Comments: PATIENT NOT FASTINGPERFORMED BY: [address] [id number] BY: [place] [address]58[address] [facility] [id number] Quant Range: 0.0-4.9 :19 Rheumatoid Arthritis Comments: PATIENT NOT FASTINGPERFORMED BY: [address] [id number] BY: [facility]6370 [facility] [id number] Factor RA Latex Turbid. 7.8 {IU/mL} Range: 0.0-13.9 (Normal) Sedimentation 8 mm/h (Normal) Comments: PATIENT NOT FASTINGPERFORMED BY: [address] [id number] BY: [place] [address]58[address] [facility] [id number] :19 Rate-Westergren Range: 0-30 Thyroid Peroxidase (TPO) 8 {IU/mL} (Normal) Comments: PATIENT NOT FASTINGPERFORMED BY: [address] [id number] BY: [place] [address]58[address] [facility] [id number] :19 Ab Range: 0-34 :19 Thyroxine (T4) Free, Comments: PATIENT NOT FASTINGPERFORMED BY: BN [facility] [id number] BY: [facility]6370 [facility] [id number] Direct, S T4,Free(Direct) 1.11 ng/dL Range: 0.82-1.77 (Normal) Triiodothyronine,Free,Seru 2.5 pg/mL (Normal) Comments: PATIENT NOT FASTINGPERFORMED BY: [address] [id number] BY: [facility]6370 [facility] [id number] 2:19 m Range: 2.0-4.4 TSH 3.450 {uIU/mL} Comments: PATIENT NOT FASTINGPERFORMED BY: [address] [id number] BY: [facility]6370 [facility] [id number] 2:19 (Normal) Range: 0.450-4.500 0-Czg-591987:30 Pathology Report Comments: PERFORMED BY: [facility] Cyto Ptmhw02970 [facility] [id number] Information: [id number] See MATER Comments: Material submitted: .FOREHEAD SHAVE [...] IN CASSETTE(S) A./CORCOR/CORPa thologist provided ICD-10:D48.5, L90.9CPT .204687 :22 TESTOSTERONE FREE (29084) Comments: PATIENT WAS FASTINGPERFORMED BY: [email or web address] Get TogetherFormerly [facility] [id number] BY: B[address] [id number] Free Testosterone(Direct) 2.5 pg/mL (Abnormal) Range: 6.6-18.1 09-Kew-13604:22 VITAMIN B-12 (CYANOCOBALAMIN) Comments: PATIENT WAS FASTINGPERFORMED BY: [email or web address] Get TogetherFormer[facility] [id number] BY: [employer] [id number] (25411) Vitamin B12 638 pg/mL (Normal) Range: 211-946 15-Nca-34327:22 CBC W/AUTO DIFF WBC Comments: PATIENT WAS FASTINGPERFORMED BY: [employer] [facility] NewsP[facility] Medicine [facility] CenterTvitof1243 [facility] [id number] BY: [facility] News[address] [id number] Inf ormation: NURSE DRAW (40131) Immature Grans (Abs) 0.0 {x10E3/uL} (Normal) Range: [...] 4.14-5.80 WBC 7.3 {x10E3/uL} (Normal) Range: 3.4-10.8 45-Vsj-56637:22 METABOLIC PANEL, Comments: PATIENT WAS FASTINGPERFORMED BY: [facility] NewsP[facility] Medical CenterCfzimt9025 [facility] [id number] BY: [facility] News[address] [id number] COMPREHENSIVE (10737) ALT (SGPT) 12 [iU]/L (Normal) Range: 0-44 [...] Glucose, Serum 100 mg/dL (Abnormal) Range: 65-99 47-Enh-23852:52 CBC W/Diff, Automated Comments: [facility] Iuh[address]wibhp4[address] [place], [place], [address] Absolute Lymph 1.73 {X10_3/ul} (Normal) Range: 0.83-4.51 [...] 4.6-6.2 WBC 6.0 K/mm3 (Normal) Range: 4.4-11.0 62-Tgy-55189:52 Comprehensive Metabolic Profil Comments: [facility] Kqxyqrikaw[address]7 [place], [address] GAP 6 (Normal) Range: 5-15 CO2 26.0 [...] (Normal) Range: 70-110 :52 Hemoglobin A1c Comments: [facility] [address] [place], [place], [address] HGB A1C 5.6 % (Normal) Range: 4.2-6.3 :52 Lipid Profile Comments: [facility] [address]joy[address]alok[address] [place] [place], [address] VLDL 21 mg/dL (Normal) Range: [...] High Risk :52 Microalb:Creat Ratio,Random UR Comments: [facility] [address] [place], [place], [address] MALB:CREAT 9.1 {mg/g_CRE} (Normal) MICROALBUMIN,UR 9.0 mg/L (Normal) UR CREAT 99.50 mg/dL (Normal) :52 PSA,Total - Annual Screen Comments: [facility] Yslarivpnr[address] [place], [place], [address] PSA,TOT SCREEN 0.51 ng/mL (Normal) Range: 0.00-4.00 Comments: This test was performed using the TPSA assay method for [employer] chemistry system. Values obtained with differentassay methods cannot be used interchangably.When changing PSA assays in the course of monitoring apatient, additional sequential testing should be carriedout to confirm baseline values. COLON BIOPSY (CHOOSE See Note (Normal) Comments: [facility] Typqcsdidx[address] [place], [place], [address] :45 SITE) Comments: Patient: YUMIKO LANDRUM : 1950 (64/M) Acct Num: [id number] Phys: Hugo Bullock Unit Num: [id number] Loc: LAB[facility] Specimen: [id number] Received: 09/11/151646 Spec Type: C OLON BX [...] in one cassette. / Heraclio 09/11 TC:1 CPT:78066 x2 HEADER OPERATION: Colonoscopy with biopsy PRE-OP DIAGNOSIS: Screening/polyp TISSUE SUBMITTED: A - Polyp cecum, R/O adenoma, B - Polyp sigmoid, R/O adenoma MICROSCOP IC DESCRIPTION Slides are reviewed. MICROSCOPIC DIAGNOSIS A. Polyp cecum, biopsy: Fragments of tubular adenoma. B. Polyp sigmoid, biopsy: Fragments of tubular adenoma. IRON:momo 09/15/15 Signed Pamella Son 09/15/15 <signature on file> :37 CBC W/Diff, Automated Comments: [facility] U[address]ymmwa[address] [place], [address] ; noon-emergent till apt Absolute [...] 4.6-6.2 WBC 6.5 K/mm3 (Normal) Range: 4.4-11.0 79-Dta-246453:37 Comprehensive Metabolic Profil Comments: [facility] Y[address]ojtwypz[address] [place], [place], [address] GAP 6 (Normal) Range: 5-15 CO2 27.0 [...] <126 mg/dLsuggests IMPAIRED HOMEOSTASIS per A.D.A. criteria. 10-Rlt-585223:37 Hemoglobin A1c Comments: [facility] Uucikrcemo04[address] [place], [address] HGB A1C 5.6 % (Normal) Range: 4.2-6.3 86-Aoc-488273:37 Lipid Profile Comments: [facility] Xfmwvrolip5[address] [place], [address] VLDL 17 mg/dL (Normal) Range: [...] 200-240 mg/dL Borderline >240 mg/dL High Risk 7-Wmk-209364:12 Factor II, DNA Analysis Comments: [facility] (refer to report for specific site)refer to report for address and phone number COMMENT Comment (Normal) Comments: Genetic Counselors are available for health care providersto discuss results at [phone]).Methodology:DNA analysis of the Factor II gene was performed by PCRamplification followed by restric tion analysis. Thediagnostic sensitivity is >99% for both. All the tests mustbe combined with clinical information for the most accurateinterpretation. Molecular-based testing is highly accurate,but as in any laboratory test, diagnostic errors may occur.Poort SR, et al. Blood. 1996; 88:7687-1081.Diallo EA. Circulation. 2004; 110:e15-e18.Bobby I, et al. Arterioscler Thromb Vasc Biol. 1999;19:700 -703.Lance Shea, Chente Cooper, Shakeel Delgado, Xiomara Maharaj, Matilde Benjamin, PhDPerformed at: TG [facility] OXS7810 [place], [place] [id number] villa: Vilma Butterfield MD, Phone: [phone] FACTOR II,DNA Comment (Normal) Comments: NEGATIVENo mutation identified.Comment:A point mutation ([id number]) in the factor II (prothrombin)gene is the [...] individual mutations. This assaydetects only the prothrombin Y60635B mutation and doesnot measure genetic abnormalities elsewhere i n thegenome. Other thrombotic risk factors may be pursuedthrough systematic clinical laboratory analysis. Thesefactors include the R506Q ([place]) mutation in the Factor Vgene, plasma homocysteine levels , as well as testing fordeficiencies of antithrombin III, protein C and protein S. 19-Hnc-86764:42 Miscellaneous Comments: Comments: [id number],PLASMA,BLUETest(s) Ordered: [id number],PLASMA,[facility] Honnewmgzw[address] [place], [address] Lab Procedure MISC Comments: TEST RESULT UNITS [...] Comments: Performed at: [facility] LabCo[address] [id number] Director: Joseph Velez MD, Phone: [phone] F e b - 2 0 1 6 9 : 4 2 :34 CBC W/Diff, Automated Comments: [facility] Yfnlwxlsva7[address] [place], [place], [address] Absolute Lymph 1.34 {X10_3/ul} (Normal) Range: 0.83-4.51 [...] (Normal) Range: 4.4-11.0 :34 Comprehensive Comments: Comments: [id number],NIIDERICK,[facility] Otbtkgcxug4[address] [place], [address] ; apt today Metabolic Profil GAP 8 [...] for health careproviders to discuss results at [phone] [place]Methodology:DNA analysis of the Factor V gene was [...] Beal, PhDBette lugo, PhDKelly Benjamin, PhDPerformed at: [address] [id number] Director: Joseph Velez MD, Phone: [phone] at: [facility] [address] [place], [place] [id number] Director: Vilma Butterfield MD, Phone: [phone] FACTOR V LEIDEN Comment (Normal) Comments: Result: [...] in the workup for venous thrombosis include [id number] mutation in the factor II (prothrombin) gene,protein S and C deficiency, and antithrombin deficiencies.Anticardiolipin antibody and lupus anticoagu lant analysismay be appropriate for certain patients, as well ashomocysteine levels.Contact your local [facility] for information on how to orderadditional testing if desired. 06-Tmt-96949:34 Hemoglobin A1c Comments: [facility] [address] [place], [place], [address] HGB A1C 5.6 % (Normal) Range: 4.2-6.3 :34 Lipid Profile Comments: Comments: [id number],[facility] [address] [place], [address] VLDL 17 mg/dL (Normal) Range: [...] High Risk :34 Miscellaneous Lab Comments: Comments: [id number],HU [facility]ITALTest[facility]) Ordered: [id number]-[facility] [address]xj[address] [place], [place], [id number] Procedure MISC Comments: TEST RESULT UNITS REFERENCE [...] anticoagulant is not de tected. aCL and L3ST0iebccjzqwf are normal.ANTIPHOSPHOLIPID SYNDROME ASSESSMENT SUMMARY-No evidence of a lupus anticoagulant, B2GP1 or aCLantibodies. As antibody titers may fluctuate with time,repeat te sting may be indicated if antiphospholipid syndromeis suspected.ANTIPHOSPHOLIPID SYNDROME ASSESSMENT DEFINITIONS-aCL- anticardiolipin (antibodies to cardiolipin); H3GH5-wrspvqfymi to Beta-2 Glycoprotein 1; LA- lupus anticoagulant(which is identified with the dRVVT and/or hexagonalphospholipid neutralization assays); aPL- antibodies toprotein/phospholipid complexes such as LA, aCL, and B9QY6kochchpayz; APS- antiphospholipid syndrome; DTI-directthrombin inhibitors.-CERTIFIED SURGICAL FIRST ASSISTANT:For questions regarding panel interpretation, please contactHalle [...] Mathews et al. J Thromb Haemost. 2009; 7(10):8048-4150.(2) Tyrone S et al. J Thromb H aemost. 2006;4(2):295-306.(3) Keith DA et al. Blood. 2007;110(9): 3680-7541. [facility] ORIGINAL REPORT ON FILE IN LAB CONTA [...] Range: 58-150 :54 CBC W/Diff, Automated Comments: [facility] [address] [place], [address] Absolute Lymph 1.61 {X10_3/ul} (Normal) [...] 4.6-6.2 WBC 7.1 K/mm3 (Normal) Range: 4.4-11.0 45-Owc-993373:54 Comprehensive Metabolic Profil Comments: [facility] [address] [place], [address] GAP 7 (Normal) Range: 5-15 [...] (Normal) Range: 70-110 :54 Lipid Profile Comments: [facility] Vqpfoevwft[address] [facility] [place], [address] ; apt today VLDL 19 [...] :55 Comprehensive Metabolic Profil Comments: Test performed at:[facility] [address] [place] [address] GAP 7 (Normal) Range: 5-15 [...] Comments: Please note revised CREATININE reference range dlpfexdme73/22/2015. BUN 15 mg/dL (Normal) Range: 7-18 GLU 103 mg/dL (Normal) Range: 70-110 21-Sep-20148:55 Hemoglobin A1c Comments: Test performed at:[facility] [address] [place], [place] [address] HGB A1C 6.0 % (Normal) Range: 4.2-6.3 21-Sep-20148:55 Lipid Profile Comments: Test performed at:[facility] [address]tj[address] [place] [address] VLDL 17 mg/dL (Normal) Range: [...] 200-240 mg/dL Borderline >240 mg/dL High Risk 45-Wyd-118113:49 Anti-dsDNA Ab Comments: ADDED PER VERBAL ORDER - FAXED ORDER TO FOLLOWSpecimen Comment: A duplicate report has been generated due to demographicSpecimen Comment: updates.Test performed at:[facility] Laboratory1 [address] [place] [address] dsDNA AB 12 {IU/mL} (Abnormal) Range: 0-9 Comments: Negative <5 Equivocal 5 - 9 Positive >9; ADDENDA: non-emergent because has apt today to discuss. 29-Kba-845414:49 ANTINUCLEAR ANTIBODIES DIRECT Comments: Test performed at:[facility] [address]ny[address]rg[address] [facility] [place] [address] JOHN-DIRECT Positive (Abnormal) Comments: Performed at: [facility] [id number] Director: Reno Yanes PhD, Phone: [phone] 49-Rvf-406445:49 CBC W/Diff, Automated Comments: Test performed at:[facility] [address] [place] [address] Absolute Lymph 1.22 {X10_3/ul} (Normal) [...] 4.6-6.2 WBC 4.9 K/mm3 (Normal) Range: 4.4-11.0 78-Zda-580954:49 Comprehensive Metabolic Profil Comments: Test performed at:[facility] [address] [place] [address] GAP 6 (Normal) Range: 5-15 CO2 27.0 [...] 7-18 GLU 104 mg/dL (Normal) Range: 70-110 20-Kjh-979513:49 CRP Comments: Test performed at:[place] [address] C-REACTIVE PROT < 2.90 mg/L (Normal) Range: 0.0-3.0 Comments: C-Reactive Protein (CRP) provides useful information for thediagnosis, therapy and monitoring of inflammatory processesand associated diseases. For the evaluation of Relative Riskfor Cardiovascular Dise ase, a High Sensitivity CRP (HSCRP)should be ordered. :49 Culture, Urine Comments: Test performed at:[place] [address] CUUR See Note (Normal) Comments: Urine CultureCulture exhibits no growth.; ADDENDA: Pt has apt today, will discuss then :49 Erythrocyte Sed Rate Comments: Test performed at:[facility] [address] [place] [address] SED RATE 21 mm/h (Abnormal) Range: 0-20 :49 Hemoglobin A1c Comments: Test performed at:[address] [address] HGB A1C 5.8 % (Normal) Range: 4.2-6.3 :49 Lipid Profile Comments: Test performed at:[address] [address] VLDL 8 mg/dL (Normal) Range: 5-40 LDL [...] :49 Microalb:Creat Ratio,Random UR Comments: Test performed at:[facility] [address] [facility] [place] [address] MALB:CREAT 12.2 {mg/g_CRE} (Normal) MICROALBUMIN,UR 17.2 mg/L (Normal) UR CREAT 140.0 mg/dL (Normal) :49 PSA,Total - Annual Screen Comments: Test performed at:[facility] [address] [place] [address] PSA,TOT SCREEN 0.47 ng/mL (Normal) Range: 0.00-4.00 Comments: This test was performed using the TPSA assay method for [employer] chemistry system. Values obtained with differentassay methods cannot be used interchangably.When changing PSA assays in the course of monitoring apatient, additional sequential testing should be carriedout to confirm baseline values. :49 Thyroid Stim Hormone (TSH) Comments: Test performed at:[facility] [address] [place] [address] TSH 1.60 {uIU/mL} (Normal) Range: 0.358-3.74 :49 Urinalysis, Complete Comments: How was Urine Obtained? Urine, RandomTest performed at:[facility] [address] [place] [address] MUCUS, URINE 0 SEEN {/hpf} [...] (Normal) CLARITY Clear (Normal) COLOR Yellow (Normal) 19-Kjl-055156:49 Urinalysis, Complete Comments: How was Urine Obtained? Urine, RandomTest performed at:[facility] [address] [facility] [place] [address] MUCUS, URINE 2+ {/hpf} (Normal) [...] (Normal) CLARITY Clear (Normal) COLOR Yellow (Normal) 50-Moq-516442:07 Comprehensive Metabolic Profil Comments: Test performed at:[facility] [address] [place], [place] [address] GAP 6 (Normal) Range: 5-15 CO2 28.0 [...] 7-18 GLU 108 mg/dL (Normal) Range: 70-110 33-Bee-802864:07 CPK Total, Creatine Kinase Comments: Test performed at:[facility] [address] [place] [address] CPK TOTAL 91 U/L (Normal) Range: 39-308 59-Imt-683114:56 Rapid Flu (38618 x 2) Influenza A Ag negative (Normal) 8-Gok-279721:28 URINE WARREN CULTURE-MASSIEL COL Comments: PATIENT NOT FASTINGPERFORMED BY: [facility] CenterJpmlfm8459 [facility] [id number] Information: SRC:UR P29130 COUNT (44703) Result 1 ECV (Abnormal) Comments: Escherichia coli, [...] R Urine Final report Culture,Comprehensi (Abnormal) ve 9-Ycq-189888:58 Urinalysis, Office (54888) UA - LEUKOCYTE ESTERASE Small (Normal) UA - NITRITE Negative (Normal) URINE UROBILINGN MASSIEL TIMED 2 mg/dL (Normal) UA - PROTEIN 30 mg/dL (Normal) UA - PH 6.0 (Normal) Comments: 5.5 UA - BLOOD Hemolyzed Small (Normal) UA - SPECIFIC GRAVITY 1.030 (Abnormal) UA - KETONES Negative mg/dL (Normal) UA - BILIRUBIN Small (Normal) UA - GLUCOSE Negative (Normal) 5-Baa-283358:41 URINE WARREN CULTURE-MASSIEL COL Comments: PATIENT NOT FASTINGPERFORMED BY: [facility]yardSt. [facility] [id number] Information: SRC: URINE COUNT (53272) Result 1 ECV (Abnormal) Comments: Escherichia coli, [...] R Urine Final report Culture,Comprehensi (Abnormal) ve 9-Xdf-057048:27 Urinalysis, Office (09494) UA - LEUKOCYTE ESTERASE Trace (Normal) UA - NITRITE Negative (Normal) URINE UROBILINGN MASSIEL TIMED 2 mg/dL (Normal) UA - PROTEIN Negative mg/dL (Normal) UA - PH 6.0 (Normal) UA - BLOOD Negative (Normal) UA - SPECIFIC GRAVITY 1.010 (Normal) UA - KETONES Negative mg/dL (Normal) UA - BILIRUBIN Negative (Normal) UA - GLUCOSE Negative (Normal) 4-Dva-323441:30 HgA1C , Office (13907) HgA1C , Office 5.7 % (Normal) Range: 4.6 - 7.1 0-Tyr-547706:10 URINE WARREN CULTURE-MASSIEL COL Comments: PATIENT NOT FASTINGPERFORMED BY: [facility] [id number] Information: SRC:UR X03368 COUNT (76632) Result 1 NG36 (Normal) Comments: No growth [...] CHOL 155 mg/dL (Normal) Comments: <200 mg/dL Lbwquynji015-266 mg/dL Borderline>240 mg/dL High Risk TRIG 121 [...] (Normal) UCLAR Clear (Normal) UCOL Yellow (Normal) 04-Xcs-520549:20 CUUR URC See Note (Normal) Comments: ESBL+ [...] (NF) indicates non-formulary drug at [facility]. Approval by Infectious DiseaseSpecialist required before non-formulary drugs may beordered and/or dispensed. 06-Woo-615222:20 UA Comments: How was Urine Obtained? CLEAN [...] Antibody Present - Antibody Absen tPerformed at: [place] [facility]Co[address] [id number] Director: Melquiades Hector MD, Phone: [phone] EBEAG <9.0 U/mL (Normal) Range: 0.0-8.9 Comments: [...] - 250 nmol/L)Toxicity >100 ng/mL (>250 nmol/L) 6-Sxy-180146:36 BMP Comments: Serial Specimen #1, #2 or [...] <0.05 NEGATIVE0.06 - 0.59 AT RISK OF LA> OR = 0.60 SUGGEST LA :47 HgA1C , Office (29784) HgA1C , Office 6.3 % (Normal) Range: [...] FE 70 ug/dL (Normal) Range: 65-175 :13 ZIA 24 ng/mL (Abnormal) Range: 26-388 :13 LIPID [...] CHOL 147 mg/dL (Normal) Comments: <200 mg/dL Dyielucyt189-973 mg/dL Borderline>240 mg/dL High Risk 6-Mfs-558225:55 Rapid Flu (16736 x 2) Comments: neg Influenza A Ag negative (Normal) 8-Zcl-825303:02 FECAL OCCULT- Tubes sent home (00679) FECAL OCCULT HGB ASSAY, QUAL, 1-3 negative (Normal) [facility] :39 B12 510 pg/mL (Normal) [...] {IU/mL} (Normal) Range: 0-100 Comments: Performed at: [facility] Director: Melquiades Hector MD, Phone: [phone] IMM 55 mg/dL (Normal) Range: 40-230 DEBBY 182 mg/dL (Normal) Range: 91-414 IMG 788 mg/dL (Normal) Range: 700-1600 :39 LDH 190 U/L (Normal) Comments: Serial Specimen #1, #2 or #3? 1Is Patient Taking Vitamins or Folic Acid Supplements? N Range: 84-246 :39 PROEL Comments: Is Patient Fasting? Y [id number] Comment (Normal) Comments: Protein electrophoresis scan will follow via computer,mail, or syrup blender delivery. tPROELAG 1.6 (Normal) Range: 0.7-2.0 tPROELIN [...] Supplements? N Range: 250-450 :56 CULTURE, SPUTUM (07246) Comments: PATIENT NOT FASTINGPERFORMED BY: [facility] CenterNcsjni3162 [facility] [id number] Information: SRC:[facility] [id number] Result 1 RRF (Normal) Comments: Routine respiratory ashkan Lower Respiratory Culture Final report (Normal) :32 HgA1C , Office (01054) HgA1C , Office 5.9 % (Normal) Range: 4.6 - 7.1 :32 Blood Glucose , Office (25593) Blood Glucose , Office 90 (Normal) :51 [...] 4.6-6.2 WBC 7.2 {k/mm3} (Normal) Range: 4.4-11.0 19-Dqf-636396:51 CMP GAP 9 (Normal) Range: 5-15 CO2 [...] CHOL 149 mg/dL (Normal) Comments: <200 mg/dL Uhunumqrs020-533 mg/dL Borderline>240 mg/dL High Risk :51 PSA 0.51 ng/mL (Normal) Range: 0.00-4.00 Comments: This test was performed using the TPSA assay method for the[employer] chemistry system. Values obtained with differentassay methods cannot be used interchangably.When changing PSA assays in the course of monitoring apatient, additional sequential testing should be carriedout to confirm baseline values. :59 MISC (Normal) Comments: TEST RESULT LIMITSAntinuclear Antibodies, IFA NegativeNegative <1:80Borderline 1:80Positive >1:80 [facility] ORIGINAL REPORT ONFILE IN LAB CONTAINS [...] CHOL 154 mg/dL (Normal) Comments: <200 mg/dL Auhpirnia254-373 mg/dL Borderline>240 mg/dL High Risk HDL 64 [...] CUF See Note Comments: TESTING PERFORMED AT [facility]. ORIGINAL REPORT ONFILE IN LAB CONTAINS ADDITIONAL TEST SITE INFORMATION. (Normal) CULTURE, FUNGUSNO YEAST OR MOLD ISOLATED AFTER 4 WEEKS. 35-Xrf-606244:11 CUSP RESPC See Note (Normal) Comments: No [...] YEAST OR MOLD ISOLATED AFTER 4 WEEKS. 03-Gdu-593454:21 AFBCS tAFBC See Note Comments: TESTING PERFORMED AT [facility]. ORIGINAL REPORT ONFILE IN LAB CONTAINS ADDITIONAL TEST SITE INFORMATION. (Normal) CULTURE, ACID FAST FINAL CULTURE REPORT TO FOLLOW IN 6 WEEKS. EverF See Note Comments: TESTING PERFORMED AT [facility]. ORIGINAL REPORT ONFILE IN LAB CONTAINS ADDITIONAL TEST SITE INFORMATION. (Normal) ACID FAST BACILLUS SMEARAcid Fast Smear from Concentrated Specimen :Negative 99-Nqz-739576:21 CUFST FUNST See Note Comments: TESTING PERFORMED AT [facility]. ORIGINAL REPORT ONFILE IN LAB CONTAINS ADDITIONAL TEST SITE INFORMATION. (Normal) FUNGUS STAIN YEAST OBSERVED CUF See Note Comments: TESTING PERFORMED AT [facility]. ORIGINAL REPORT ONFILE IN LAB CONTAINS ADDITIONAL TEST SITE INFORMATION. (Normal) CULTURE, FUNGUSNO YEAST OR MOLD ISOLATED AFTER 4 WEEKS. 16 AFBSTN SEE Comments: Specimen submitted to Anatomical Pathology Department [facility]. - PATHOLOGY ay REPORT -2 (Normal) 32 2: 00 16 AFBSTN SEE Comments: PATIENT BROUGHT SPECIMEN IN ON 07/11/12. - PATHOLOGY Comments: Specimen submitted to Anatomical Pathology Department [facility]. ay REPORT -2 (Normal) 30 :0 0 12 AFBSTN SEE Comments: PATIENT BROUGHT SPECIMEN IN ON 07/11/12 - PATHOLOGY Comments: Specimen submitted to Anatomical Pathology Department [facility]. ay REPORT -2 (Normal) 39 :0 0 59-Jdt-471190:05 WARREN CULTURE-OTHER (17044) Comments: PATIENT NOT FASTINGPERFORMED BY: BOBBI [facility] [id number] [place] [id number] Information: SRC: THROAT Result 1 RRF (Normal) Comments: Routine respiratory ashkan Upper Respiratory Culture Final report (Normal) 14-Uhs-304091:23 Rapid Strep Test, Office (44733) Rapid Strep Test, Office Negative (Normal) 0-Ihi-488572:15 CBCMD RBCM NORM C+C {NORMAL} (Normal) PE [...] 4.6-6.2 WBC 8.3 K/mm3 (Normal) Range: 4.4-11.0 3-Mgg-567839:15 CMP GAP 10 (Normal) Range: 5-15 CO2 [...] 7-18 GLU 81 mg/dL (Normal) Range: 70-110 0-Gtp-554363:15 LIPID VLDL 12 mg/dL (Normal) Range: 5-40 [...] Alvarado M.D.January 27, 2012 at 2:39:03 PM [id number] Signed GP/GP If you are the refe rring physician and would like to consult with theradiologist who provided this interpretation, please contact Itzel Linares at [phone]. If this radiologist is unavailable, youwill be dir ected to another radiologist to assist. If you are a patient with a question regarding this report, pleasecontactyour referring physician directly. Professional Interpretation Provided By: [employer], Phone , These documents contain legally protected [...] Schwarz D.O.January 26, 2012 at 8:55:02 PM [id number] Signed BE/B E If you are the referring physician and would like to consult with theradiologist who provided this interpretation, please contact Yogi Schwarz D.O. at [phone]. If this radiologist is unavailable, yo u will bedirected to another radiologist to assist. If you are a patient with a question regarding this report, pleasecontactyour referring physician directly. Professional Interpretation Provided By: [employer], Phone , These documents contain legally protected [...] 01/26/12 2100 Sign by: Yogi Schwarz MD 79-Wci-874727:13 CUSP RESPC See Note (Normal) Comments: No [...] CHAINS AND CLUSTERS :56 HgA1C , Office (67864) HgA1C , Office 6.1 % (Normal) Range: 4.6 - 7.1 :56 Blood Glucose , Office (92568) Blood Glucose , Office 116 (Normal) : [...] mg/dL suggests IMPAIRED HOMEOSTASIS per A.D.A. criteria. 38-Doq-27581:01 TSH 1.98 {uIU/mL} (Normal) Range: 0.358-3.74 11-Uul-830254:25 CMP GAP 7 (Normal) Range: 5-15 CO2 [...] 7-18 GLU 107 mg/dL (Normal) Range: 70-110 42-Fxj-366421:25 LIPID VLDL 12 mg/dL (Normal) Range: 5-40 [...] 200-240 mg/dL Borderline >240 mg/dL High Risk 25-Cvk-767231:25 MIACRE tMICROCREAT 6.7 {mg/g_CRE} (Normal) MIALB 5.5 mg/L (Normal) CREU 81.1 mg/dL (Normal) 91-Pvz-180520:25 PSA 0.50 ng/mL (Normal) Range: 0.00-4.00 Comments: NEW TEST ASSAY METHOD JULY 12, 2011This test was performed using the TPSA assay method for the[employer] chemistry system. Values obtained with differentassay methods [...] UCOL YELLOW (Normal) :44 HgA1C , Office (64992) HgA1C , Office 6.3 % (Normal) Range: 4.6 - 7.1 :44 Blood Glucose , Office (97493) Blood Glucose , Office 114 (Normal) :13 HgA1C , Office (04754) HgA1C , Office 6.2 % (Normal) Range: 4.6 - 7.1 :13 Blood Glucose , Office (06267) Blood Glucose , Office 100 (Normal) :55 HgA1C , Office (82351) HgA1C , Office 5.8 % (Normal) Range: 4.6 - 7.1 :55 Blood Glucose , Office (11487) Blood Glucose , Office 85 (Normal) :51 WARREN CULTURE-OTHER (09765) Comments: PATIENT NOT FASTINGPERFORMED BY: [facility] [id number] [facility] [id number] Information: SRC:THRT [id number] Result 1 Yeast isolated. (Normal) Comments: Heavy growthRequest for further identification must be madewithin 1 week. Upper Respiratory Culture Final report (Normal) :14 Rapid Strep Test, Office (18768) Rapid Strep Test, Office Negative (Normal) :24 [...] serialsampling is recomme nded. TESTING PERFORMED AT [facility]. ORIGINAL REPORT ON FILE IN LAB CONTAINS [...] cells for the productionof interferon gamma.Performed at: [address] [id number] Director: Joseph Velez MD, Phone: [phone] QFT AG - NIL 0 {IU/mL} (Normal) [...] 7-18 GLU 100 mg/dL (Normal) Range: 70-110 19-Bmj-52396:03 COMPLETE UA MUCUS, URINE 2+ {/hpf} (Normal) [...] >240 mg/dL High Risk :03 VIT D,25 16682 38.0 ng/mL (Normal) Comments: appt 03-08-10 Range: 32.0-100.0 Comments: Effective January 11, 2011 Vitamin D, 25-Hydroxy reference intervals will be changing to 30-100. .Recent studies consider the lower li chilo of 32.0 ng/mL to be athreshold for optimal health.Mark LUDWIG. J Nutr. 2004;135(2):317-22.Performed at: [address] [id number] Director: Lakshmi Pino MD, Phone: [phone] VITAMIN B12 696 pg/mL (Normal) Range: 254-1320 Comments: There is a low frequency possibility that high titers ofintrinsic blocking antibodies may not be completely inactivated during the reaction pretreatment stepof this testing method. If test results are i n conflictwith the clinical diagnosis, patient should be testedfor the presence of intrinsic factor blocking antibodies. 28-Tik-878714:05 Rapid Strep Test, Office (30528) Rapid Strep Test, Office Negative (Normal) :00 CULTURE, THROAT See Note (Normal) Comments: Normal throat ashkan isolated. No beta-hemolyticstreptococcus isolated. 44-Mal-63038:00 CHEST WITHOUT CONTRAST Radiology Report See Note [...] 10/11/10 0244 Sign by: Clarke Butt MD 46-Csq-913179:58 GALLBLADDER Radiology Report See Note (Normal) Comments: PROCEDURE: ABDOMINAL ULTRASOUND - RIGHT UPPER QUADRANT REASON FOR VISIT: Male, 60 years old. Abdominal pain. TECHNIQUE: Ultrasound evaluation of the right upper quadrant wasperformed w [facility] real-morena e ultrasonography and static grayscale imaging. [...] 10/08/10 1402 Sign by: Jake Alvarado MD 53-Zfn-01169:00 CULTURE, URINE URINE CULTURE See Note {CFU/mL} (Normal) Comments: COLONY COUNT <1000 ORGANISM 1: MIXED GRAM POSITIVE ORGANISMS 85-Nzc-363681:19 Urinalysis, Office (53447) UA - BILIRUBIN Negative (Normal) UA - BLOOD Non Hemolyzed Trace (Normal) UA - GLUCOSE Negative (Normal) UA - KETONES Negative mg/dL (Normal) UA - LEUKOCYTE ESTERASE Negative (Normal) UA - NITRITE Negative (Normal) UA - PH 7.0 (Normal) UA - PROTEIN Negative mg/dL (Normal) UA - SPECIFIC GRAVITY 1.010 (Normal) URINE UROBILINGN MASSIEL TIMED Normal mg/dL (Normal) 73-Aia-35986:00 ABDOMEN/PELVIS WITHOUT CONT Radiology Report See Note [...] Cosmo Mahmood MD :11 HgA1C , Office (68385) HgA1C , Office 6.2 % (Normal) Range: 4.6 - 7.1 :11 Blood Glucose , Office (72658) Blood Glucose , Office 90 (Normal) :28 [...] mg/dL High Risk :53 HgA1C , Office (77371) HgA1C , Office 6.4 % (Normal) Range: 4.6 - 7.1 :53 Blood Glucose , Office (90147) Blood Glucose , Office 108 (Normal) :39 CULTURE, URINE URINE CULTURE Culture exhibits no growth. (Normal) :54 Urinalysis, Office (06633) UA - BILIRUBIN Negative (Normal) UA - BLOOD Negative (Normal) UA - GLUCOSE Negative (Normal) UA - KETONES Negative mg/dL (Normal) UA - LEUKOCYTE ESTERASE Negative (Normal) UA - NITRITE Negative (Normal) UA - PH 7.0 (Normal) UA - PROTEIN Negative mg/dL (Normal) UA - SPECIFIC GRAVITY 1.010 (Normal) URINE UROBILINGN MASSIEL TIMED Normal mg/dL (Normal) :37 HgA1C , Office (55309) HgA1C , Office 6.1 % (Normal) Range: 4.6 - 7.1 :37 Blood Glucose , Office (90543) Blood Glucose , Office 96 (Normal) 09-Hhh-624729:46 CBCD,SMEAR DIFF PLT EST SeeNote (Normal) Comments: [...] 4.6-6.2 WBC 7.5 K/mm3 (Normal) Range: 4.4-11.0 55-Thv-956265:46 COMP METABOLIC GAP 7 (Normal) Range: 5-15 [...] 7-18 GLU 105 mg/dL (Normal) Range: 70-110 19-Ttj-845358:46 LIPID VLDL 10 mg/dL (Normal) Range: 5-40 [...] mg/L (Normal) UR CREAT 166.2 mg/dL (Normal) 79-Kzx-837350:46 PSA, SCREEN 0.5 ng/mL (Normal) Range: 0.0-4.0 :22 HgA1C , Office (17894) HgA1C , Office 6.1 % (Normal) Range: 4.6 - 7.1 :22 Blood Glucose , Office (05267) Blood Glucose , Office 123 (Normal) :47 HgA1C , Office (64594) HgA1C , Office 6.3 % (Normal) Range: 4.6 - 7.1 :47 Blood Glucose , Office (19666) Blood Glucose , Office 103 (Normal) :05 [...] CHOL 142 mg/dL (Normal) Comments: <200 mg/dL Jzhaunogt888-091 mg/dL Borderline>240 mg/dL High Risk TRIG 35 mg/dL (Normal) Comments: Serum Triglycerides Reference IntervalNormal <150 mg/dLBorderline high 150 - 199 mg/dLHigh 200 - 499 mg/ dLVery High > or = 500 mg/dL :24 HgA1C , Office (01372) HgA1C , Office 6.2 % (Normal) Range: 4.6 - 7.1 :23 Blood Glucose , Office (59275) Blood Glucose , Office 96 (Normal) 03-Eea-590500:07 GASTRIC EMPTYING STUDY Radiology Report See Note (Normal) Comments: Exam Number: [id number] GASTRIC EMPTYING STUDY A gastric emptying study was performed. The patient ingested 1 mCi ocVz47e Sulfur colloid with oatmeal. HISTORYThis is a 58-year-old male patie nt with hist ory of bloating andgastroesophageal reflux. FINDINGSAt 1 hour, there is complete emptying of the stomach of theradiopharmaceutical. This is a normal study. IMPRESSIONNormal examination. There is no e vidence of gastric retention. Reported By: WILFREDO ALVARADO :33 HgA1C , Office (25226) HgA1C , Office 5.9 % (Normal) Range: 4.6 - 7.1 :33 Blood Glucose , Office (59608) Blood Glucose , Office 111 (Normal) :08 [...] Range: 0.0-4.0 :46 Blood Glucose , Office (35590) Blood Glucose , Office 156 (Normal) :46 HgA1C , Office (81572) HgA1C , Office 5.8 % (Normal) Range: 4.6 - 7.1 :12 HgA1C , Office (53070) Comments: done HgA1C , Office 5.8 % (Normal) Range: 4.6 - 7.1 :12 Blood Glucose , Office (61515) Comments: done Blood Glucose , Office 99 [...] mg/dL (Normal) Range: 200-370 Comments: Performed At: [address] [id number] Blood Glucose , Office (44368) Blood Glucose , Office 92 (Normal) :44 HgA1C , Office (63557) HgA1C , Office 5.7 % (Normal) Range: 4.6 - 7.1 :40 GLU GTT-2 HOUR 191 mg/dL (Abnormal) Comments: 2HR GTT GLU 2 HR GLU GTT-2 HOUR from 216:[id number]. Range: 70-120 :20 GLU GTT-1 HOUR 178 mg/dL (Abnormal) Comments: 2HR GTT GLU 1 HR GLU GTT-1 HOUR from 216:[id number]. Range: 120-170 :40 GLU GTT-30 min. 183 mg/dL (Abnormal) Comments: 2HR GTT GLU 1/2 HR GLU GTT-30 min. from 216:[id number]. Range: 110-170 :01 GLU GTT-FASTING 106 mg/dL (Normal) Comments: 2HR GTT FASTING GLU GTT-FASTING from 216:H46207G. Range: 70-110 Comments: GLUCOSE TOLERANCE TEST Reference [...] 47-70 WBC 8.2 K/mm3 (Normal) Range: 4.4-11.0 98-Qoq-53371:12 COMP METABOLIC A/G 1.3 {RATIO} (Normal) Range: [...] T PROT 7.0 g/dL (Normal) Range: 6.4-8.2 65-Xzc-573120:12 LIPID CHOL 154 mg/dL (Normal) Comments: <200 [...] mg/dL VLDL 15 mg/dL (Normal) Range: 5-40 22-Bcl-060103:12 PSA,TOT SCREEN 0.96 ng/mL (Normal) Range: 0.00-4.00 Comments: This test was performed using the TPSA method for theDimension chemistry system.Values obtained with different assay methods cannot be usedinterchangably.When changing PSA assays in the course of monito ring apatient, additional sequential testing should be carriedout to confirm baseline values. 23-Ldo-851111:12 ROUTINE UA BILIRUBIN URINE SeeNote (Normal) Comments: [...] 0.2 EU/dl (Normal) Range: 0.2 - 1.0 30-Gxc-474096:12 TSH 1.38 {uIU/mL} (Normal) Range: 0.34-4.82 28-Lmg-29138:03 CHEST WITH CONTRAST Radiology Report See Note (Normal) Comments: Exam Number: [id number] CHEST CT WITH INTRAVENOUS CONTRAST. REASON FOR [...] No growth in 5 6:14 days. (Normal) 6-Xjf-803626:14 CBCD,SMEAR DIFF BAND 1 % (Normal) Range: [...] T PROT 6.3 g/dL (Abnormal) Range: 6.4-8.2 43-Eck-195292:19 EBVIgG/M 418272 EB-EA IgG 05261 79 AU/mL (Normal) Range: 0-99 Comments: Negative <100 Equivocal 100 - 120 Positive >120 EB-NAg [id number] 656 AU/mL (Abnormal) Range: 0-99 Comments: Negative <100 Equivocal 100 - 120 Positive >120 EB-VCA [id number] 2296 AU/mL (Abnormal) Range: 0-99 Comments: Negative <100 Equivocal 100 - 120 Positive >120 EB-VCA NcB13143 9 AU/mL (Normal) Range: 0-99 Comments: Negative [...] + Antibody Present - Antibody AbsentPerformed At: [facility] [id number] [place], [place] [id number] 61-Inb-096611:00 CULTURE, THROAT See Note (Normal) Comments: Normal throat ashkan isolated. No beta-hemolyticstreptococcus isolated. 10-Hmb-703200:35 Rapid Strep Test, Office (30301) Rapid Strep Test, Office Negative (Normal) 33-Vrb-83926:40 TISS/FLUID P-BX/CY (Normal) Comments: OPERATION Biopsy, testicle, [...] SJ:rin 11/09/06 TC:5 REPORT SIGNED: PAMELLA SON 11/10/0607-Nov-200614-Jua-268557:55 ALDOLASE 2030 2.3 U/L (Normal) Range: 1.2-7.6 Comments: Performed At: [address] [id number] At: [address] [id number] 08-Dcv-453242:55 JOHN-D [id number] OJHN-DIRECT 9 U/mL (Normal) Range: 0-99 Comments: Negative <100 Equivocal 100 - 120 Positive >120 81-Eno-475816:55 C-REACTIVE PROT 0.52 mg/L (Normal) Range: 0.0-6.0 Comments: Test performed using the Dimension C-Reactive ProteinExtended Range assay method. This assay meets the AHA/CDC 2003 recommendations fordetermining patients at high risk for cardiovasculardisease. Reference: High risk CRP >3.0 mg/L 76-Ocm-418413:55 CBC HCT 42.8 % (Normal) Range: 40-54 [...] 4.9 {IU/mL} (Normal) Range: 0.0-13.9 :55 TESTOST [id number] TESTOSTER %FREE 2.87 % (Normal) Range: 1.50-4.20 [...] Report See Note (Normal) Comments: Exam Number: [id number] TESTICULAR ULTRASOUND HISTORYTesticular swelling. High resolution real [...] Reported By: MAYELIN DE LA FUENTE M.D. 7-Vbc-872488:45 HIP, MIN 2 VIEWS Radiology Report See Note (Normal) Comments: Exam Number: [id number] FIVE VIEW LUMBAR SPINE AP, LATERAL, BOTH [...] degenerative changes. Reported By: REMIGIO PURCELL M.D. 4-Xok-002150:45 L/S SPINE,MIN 4 VIEWS Radiology Report See Note (Normal) Comments: Exam Number: [id number] FIVE VIEW LUMBAR SPINE AP, LATERAL, BOTH [...] degenerative changes. Reported By: REMIGIO PURCELL M.D. 5-Lrm-998371:44 HIP, MIN 2 VIEWS Radiology Report See Note (Normal) Comments: Exam Number: [id number] FIVE VIEW LUMBAR SPINE AP, LATERAL, BOTH [...] Report See Note (Normal) Comments: Exam Number: [id number] PA AND LATERAL CHEST HISTORYShortness of breath. [...] 15, 2005. Reported By: EDVIN MARIE M.D. 72-Amm-070725:25 ALDOLASE 2030 3.0 U/L (Normal) Range: 1.2-7.6 Comments: Performed At: [facility] [place], [place] [id number] 66-Iwd-186179:25 JOHN-D [id number] JOHN-DIRECT 46 U/mL (Normal) Range: 0-99 Comments: Negative <100 Equivocal 100 - 120 Positive >120 27-Enm-744448:25 C-REACTIVE PROT 1.07 mg/L (Normal) Range: 0.0-6.0 Comments: Test performed using the Dimension C-Reactive ProteinExtended Range assay method. This assay meets the AHA/CDC 2003 recommendations fordetermining patients at high risk for cardiovasculardisease. Reference: High risk CRP >3.0 mg/L 96-Zus-008575:25 CBCD BASO% 0.4 % (Normal) Range: 0-1 [...] morphology Planned Observations CBC W/AUTO DIFF WBC (47772)Indication: Hypertension, benign On: :51 Request METABOLIC PANEL, COMPREHENSIVE (72073)Indication: Hypertension, benign On: :51 Request LIPID PANEL (29715)Indication: Other hyperlipidemia On: :50 Request CULTURE,FUNGUS W/STAIN 712095 (16879)Indication: Bronchiectasis On: :59 Request CULTURE, SPUTUM (52087)Indication: Moderate persistent asthma without complication On: :21 Request HGB A1C (60743)Indication: Abnormal glucose tolerance test On: :10 Request CBC with auto diff (79626)Indication: Abnormal glucose tolerance test On: :10 Request METABOLIC PANEL, COMPREHENSIVE (78826)Indication: Abnormal glucose tolerance test On: :10 Request LIPID PANEL (69580)Indication: Other hyperlipidemia On: :10 Request PSA (PROSTATE SPECIFIC ANTIGEN) (V76.44)Indication: Encounter for screening for malignant neoplasm of prostate (Renamed from Screening for prostate cancer) On: :09 Request METABOLIC PANEL, COMPREHENSIVE (46806)Indication: Essential hypertension On: 9-Zag-145396:58 Request CBC with auto diff (19720)Indication: Hypertension, benign On: :53 Request METABOLIC PANEL, COMPREHENSIVE (69533)Indication: Abnormal glucose tolerance test On: :52 Request MICROALBUMIN: CREATININE RATIO (81618) AND (27652)Indication: Abnormal glucose tolerance test On: :52 Request HGB A1C (23159)Indication: Abnormal glucose tolerance test On: :52 Request LIPID PANEL (99389)Indication: Other hyperlipidemia On: :52 Request LIPID PANEL (10566)Indication: Other hyperlipidemia On: 0-Pri-328137:30 Request CBC W/AUTO DIFF WBC (53203)Indication: Hypertension, benign On: :29 Request METABOLIC PANEL, COMPREHENSIVE (02160)Indication: Hypertension, benign On: :29 Request IMMUNOGLOBULIN G (IgG) (67297)Indication: Abnormal blood chemistry On: :02 Request Comments: PLEASE DRAW WITH OTHER LABS IN 2016 serum free light chains (90569)Indication: Abnormal blood chemistry On: :40 Request serum immunofixation (79254)Indication: Abnormal blood chemistry On: :40 Request PSA (PROSTATE SPECIFIC ANTIGEN) (V76.44)Indication: Encounter for screening for malignant neoplasm of prostate (Renamed from Screening for prostate cancer) On: :40 Request LIPID PANEL (16527)Indication: Other hyperlipidemia On: Request CBC with auto diff (86443)Indication: Abnormal glucose tolerance test On: :39 Request METABOLIC PANEL, COMPREHENSIVE (25601)Indication: Abnormal glucose tolerance test On: :39 Request MICROALBUMIN: CREATININE RATIO (50581) AND (22384)Indication: Abnormal glucose tolerance test On: :39 Request HGB A1C (69178)Indication: Abnormal glucose tolerance test On: :39 Request LIPID PANEL (37001)Indication: Other hyperlipidemia On: 6-Kmr-777865:58 Request urine immunofixation (35768)Indication: Abnormal blood chemistry On: :34 Request serum immunofixation (29287)Indication: Abnormal blood chemistry On: :34 Request MICROALBUMIN: CREATININE RATIO (32432) AND (85101)Indication: Abnormal glucose tolerance test On: :32 Request HGB A1C (88093)Indication: Abnormal glucose tolerance test On: :32 Request CBC W/AUTO DIFF WBC (20733)Indication: Hypertension, benign On: :30 Request METABOLIC PANEL, COMPREHENSIVE (87190)Indication: Hypertension, benign On: :30 Request LIPID PANEL (29291)Indication: Other hyperlipidemia On: :30 Request LIPOPROTEIN, BLD, BY NMR (03764)Indication: Other hyperlipidemia On: :14 Request CBC WITH MANUAL DIFF (16202)Indication: Essential hypertension On: 36-Cmv-339065:14 Request Metabolic Panel, Comprehensive (60113)Indication: Essential hypertension On: :14 Request CBC W/AUTO DIFF WBC (53900)Indication: Abnormal glucose tolerance test On: : Request LIPOPROTEIN, BLD, BY NMR (43407)Indication: Other hyperlipidemia On: : Request METABOLIC PANEL, COMPREHENSIVE (26950)Indication: Abnormal glucose tolerance test On: : Request Anti-TPO Antibody (76191)Indication: Abnormal blood chemistry On: :57 Request T4, FREE (THYROXINE) (15883)Indication: Abnormal blood chemistry On: : Request T3, FREE (TRIDOTHYRONINE) (99015)Indication: Abnormal blood chemistry On: :57 Request TSH (45191)Indication: Abnormal blood chemistry On: :56 Request P-ANCA & C-ANCA (ANCA PROFILE) 48950 x2 [place] 71489 [id number]: Acute recurrent maxillary sinusitis On: :26 Request JOHN (ANTINUCLEAR ANTIBODY) (86331)Indication: Abnormal blood chemistry On: :56 Request RHEUMATOID FACTOR-QUANT (21259)Indication: Abnormal blood chemistry On: :56 Request SED RATE ERYTHROCYTE (82548)Indication: Abnormal blood chemistry On: :56 Request C-REACTIVE PROTEIN (01213)Indication: Abnormal blood chemistry On: :56 Request CBC with auto diff (35375)Indication: Hypertension, benign On: :10 Request MICROALBUMIN: CREATININE RATIO (62321) AND (02809)Indication: Abnormal glucose tolerance test On: : Request METABOLIC PANEL, COMPREHENSIVE (76912)Indication: Abnormal glucose tolerance test On: : Request HGB A1C (92627)Indication: Abnormal glucose tolerance test On: : Request METABOLIC PANEL, COMPREHENSIVE (78011)Indication: Hypertension, benign On: : Request LIPID PANEL (43560)Indication: Other hyperlipidemia On: : Request PSA (PROSTATE SPECIFIC ANTIGEN) (V76.44)Indication: Encounter for screening for malignant neoplasm of prostate (Renamed from Screening for prostate cancer) On: 10-Meb-869177:59 Request Factor 2 (Prothrombin) Gene Mutation (70668)Indication: Other symptoms involving cardiovascular system On: 6-Doc-696006:13 Request MICROALBUMIN: CREATININE RATIO (44628) AND (43151)Indication: Abnormal glucose tolerance test On: :53 Request HGB A1C (24649)Indication: Abnormal glucose tolerance test On: :53 Request LIPID PANEL (65122)Indication: Other hyperlipidemia On: :53 Request CBC W/AUTO DIFF WBC (59002)Indication: Hypertension, benign On: :53 Request METABOLIC PANEL, COMPREHENSIVE (21751)Indication: Hypertension, benign On: :53 Request CBC with auto diff (88592)Indication: Hypertension, benign On: 3-Tdk-696580:25 Request METABOLIC PANEL, COMPREHENSIVE (13791)Indication: Hypertension, benign On: :25 Request LIPID PANEL (84717)Indication: Other hyperlipidemia On: 0-Vdf-408307:25 Request Factor V Leiden (72143)Indication: Deep vein thrombosis of lower extremity On: :24 Request CLOTTING FACTOR II (29268)Indication: Deep vein thrombosis of lower extremity On: :24 Request ANTITHROMBIN III ACTIVTY (56557)Indication: Deep vein thrombosis of lower extremity On: :24 Request Antiphospholipid atb (25515)Indication: Deep vein thrombosis of lower extremity On: :24 Request Protein C Profile (55366)Indication: Deep vein thrombosis of lower extremity On: :24 Request Protein S Profile (20590)Indication: Deep vein thrombosis of lower extremity On: :24 Request Hemoglobin Glyclated (HGB A1C) (99136)Indication: Abnormal glucose tolerance test On: :23 Request CBC W/AUTO DIFF WBC (25029)Indication: Abnormal glucose tolerance test On: :43 Request MICROALBUMIN: CREATININE RATIO (04802) AND (07213)Indication: Abnormal glucose tolerance test On: :43 Request METABOLIC PANEL, COMPREHENSIVE (10945)Indication: Abnormal glucose tolerance test On: Request LIPID PANEL (60213)Indication: Other hyperlipidemia On: Request DNA ANTIBODY-NATV/DBL ST (66794)Indication: Heart disease, unspecified On: : Request METABOLIC PANEL, COMPREHENSIVE (80493)Indication: Essential hypertension On: : Request LIPID PANEL (31260)Indication: Other hyperlipidemia On: :31 Request Hemoglobin Glyclated (HGB A1C) (63594)Indication: Abnormal glucose tolerance test On: : Request PSA (PROSTATE SPECIFIC ANTIGEN) (V76.44)Indication: Benign prostatic hyperplasia with lower urinary tract symptoms, unspecified morphology On: :52 Request MICROALBUMIN: CREATININE RATIO (25617) AND (52292)Indication: Abnormal glucose tolerance test On: :50 Request Hemoglobin Glyclated (HGB A1C) (11964)Indication: Abnormal glucose tolerance test On: :50 Request URINE WARREN CULTURE (MASSIEL COL COUNT) (87789)Indication: Muscle weakness On: 48 Request URINALYSIS, W/ MICRO (48922)Indication: Muscle weakness On: :48 Request CBC with auto diff (86884)Indication: Muscle weakness On: :48 Request JOHN (ANTINUCLEAR ANTIBODY) (61831)Indication: Muscle weakness On: :48 Request SED RATE ERYTHROCYTE (95159)Indication: Muscle weakness On: :48 Request C-REACTIVE PROTEIN (04735)Indication: Muscle weakness On: 48 Request TSH (09212)Indication: Muscle weakness On: 79-Vpd-334125:48 Request LIPID PANEL (94633)Indication: Other hyperlipidemia On: 31-Vjk-018282:47 Request METABOLIC PANEL, COMPREHENSIVE (50261)Indication: Other hyperlipidemia On: :46 Request URINE WARREN CULTURE-MASSIEL COL COUNT (39265)Indication: Other abnormal finding of urine On: 1-Qrt-100505:42 Request LIPID PANEL (43719)Indication: Other hyperlipidemia On: :44 Request CBC W/AUTO DIFF WBC (69249)Indication: Essential hypertension On: :44 Request METABOLIC PANEL, COMPREHENSIVE (58322)Indication: Essential hypertension On: :44 Request URINE WARREN CULTURE-MASSIEL COL COUNT (08473)Indication: Other abnormal finding of urine On: 1-Klr-410811:00 Request Comments: ADD ON MICROALBUMIN: CREATININE RATIO (33613) AND (02964)Indication: Essential hypertension On: :02 Request URINALYSIS, W/ MICRO (18646)Indication: Essential hypertension On: 2-Jhd-684247:02 Request METABOLIC PANEL, COMPREHENSIVE (33639)Indication: Essential hypertension On: 6-Rek-906406:02 Request LIPID PANEL (21253)Indication: Other hyperlipidemia On: 9-Iec-758325:02 Request CBC WITH MANUAL DIFF (91379)Indication: Iron deficiency On: 4-Rhw-372830:02 Request URINE WARREN CULTURE (MASSIEL COL COUNT) (71294)Indication: Fatigue On: 33-Izd-309132:46 Request MICROALBUMIN: CREATININE RATIO (78555) AND (64311)Indication: Abnormal glucose tolerance test On: 81-Ipx-228992:46 Request Hemoglobin Glyclated (HGB A1C) (34428)Indication: Abnormal glucose tolerance test On: 64-Vtq-614305:46 Request IRON BINDING CAPACITY (TIBC) (26103)Indication: Anemia, unspecified On: :42 Request FERRITIN (62891)Indication: Anemia, unspecified On: 77-Rmb-267595:42 Request IRON (69340)Indication: Anemia, unspecified On: 50-Iuh-236409:42 Request VITAMIN B-12 (CYANOCOBALAMIN) (77660)Indication: Fatigue On: 52-Kfd-706615:42 Request CBC (AUTO) (36182)Indication: Fatigue On: Request TSH (66878)Indication: Fatigue On: Request Vitamin D Hydroxy (62497)Indication: Fatigue On: Request EBV Panel (64555)Indication: Fatigue On: Request FERRITIN (04852)Indication: Anemia, unspecified On: Request IRON (09394)Indication: Anemia, unspecified On: Request MICROALBUMIN: CREATININE RATIO (82205) AND (02203)Indication: Abnormal glucose tolerance test On: Request METABOLIC PANEL, COMPREHENSIVE (84805)Indication: Abnormal glucose tolerance test On: Request LIPID PANEL (93061)Indication: Other hyperlipidemia On: Request CBC WITH MANUAL DIFF (15386)Indication: Anemia, unspecified On: Request FERRITIN (39791)Indication: Anemia, unspecified On: :15 Request IRON (75146)Indication: Anemia, unspecified On: Request LIPID PANEL (26640)Indication: Essential hypertension On: Request METABOLIC PANEL, COMPREHENSIVE (58696)Indication: Essential hypertension On: : Request CBC WITH MANUAL DIFF (85384)Indication: Essential hypertension On: Request UPEP (59833)Indication: BRONCHITIS, NOT SPECIFIED ACUTE OR CHRONIC (490.) On: Request Protein Electrophoresis, Serum (SPEP) (60828)Indication: BRONCHITIS, NOT SPECIFIED ACUTE OR CHRONIC (490.) On: Request IGA/IGD/IGG/IGM-EACH (97286)Indication: BRONCHITIS, NOT SPECIFIED ACUTE OR CHRONIC (490.) On: Request URINALYSIS, W/ MICRO (58486)Indication: Anemia, unspecified On: Request CBC WITH MANUAL DIFF (48761)Indication: Anemia, unspecified On: : Request FOLIC ACID SERUM (18541)Indication: Anemia, unspecified On: Request VITAMIN B-12 (CYANOCOBALAMIN) (66028)Indication: Anemia, unspecified On: : Request RETICULOCYTE COUNT MANUL (00866)Indication: Anemia, unspecified On: Request LDH (LD) (LACTATE DEHYDROGENASE) (77743)Indication: Anemia, unspecified On: Request IRON BINDING CAPACITY (TIBC) (95779)Indication: Anemia, unspecified On: Request IRON (77891)Indication: Anemia, unspecified On: Request FERRITIN (28262)Indication: Anemia, unspecified On: Request PSA (PROSTATE SPECIFIC ANTIGEN) (V76.44)Indication: Screening for prostate cancer On: :36 Request LIPID PANEL (80565)Indication: Abnormal glucose tolerance test On: :35 Request CBC WITH MANUAL DIFF (11327)Indication: Hypertension, benign On: 35 Request METABOLIC PANEL, COMPREHENSIVE (76313)Indication: Hypertension, benign On: 35 Request SED RATE ERYTHROCYTE (69588)Indication: Rash On: :22 Request C-REACTIVE PROTEIN (14481)Indication: Rash On: :22 Request RHEUMATOID FACTOR-QUANT (08650)Indication: Rash On: :22 Request JOHN (ANTINUCLEAR ANTIBODY) (34808)Indication: Rash On: 32-Djk-060467:22 Request CULTURE, SPUTUM (48566)Indication: Cough On: 25-Npa-420802:20 Request HgA1C , Office (60400)Indication: Abnormal glucose tolerance test On: 10-Nyw-693093:57 Request CULTURE, SPUTUM (46696)Indication: Cough On: 70-Bjy-991877:39 Request ACID FAST STAIN (AFB) (59085)Indication: Cough On: 96-Ekd-220078:38 Request TSH (99501)Indication: Other hyperlipidemia On: : Request URINALYSIS, W/ MICRO (28670)Indication: Essential hypertension On: :21 Request CBC WITH MANUAL DIFF (90238)Indication: Abnormal glucose tolerance test On: :21 Request METABOLIC PANEL, COMPREHENSIVE (63678)Indication: Abnormal glucose tolerance test On: :21 Request MICROALBUMIN: CREATININE RATIO (54879) AND (92727)Indication: Abnormal glucose tolerance test On: :21 Request LIPID PANEL (24153)Indication: Other hyperlipidemia On: :20 Request CBC WITH MANUAL DIFF (87364)Indication: Abnormal glucose tolerance test On: : Request METABOLIC PANEL, COMPREHENSIVE (77334)Indication: Abnormal glucose tolerance test On: 12-Xmv-046758:26 Request CULTURE, SPUTUM (52787)Indication: Cough On: 39-Ovp-422395:18 Request LIPID PANEL (56074)Indication: Other hyperlipidemia On: 58-Jmj-623914:14 Request TSH (57712)Indication: Swelling of limb On: 85-Blz-49287:58 Request METABOLIC PANEL, COMPREHENSIVE (13225)Indication: Swelling of limb On: :58 Request CBC WITH MANUAL DIFF (65634)Indication: Swelling of limb On: :58 Request BNTP (71965)Indication: Swelling of limb On: :58 Request CULTURE, SPUTUM (83393)Indication: Cough On: :56 Request PSA (PROSTATE SPECIFIC ANTIGEN) (V76.44)Indication: Screening for prostate cancer On: 83-Wuk-692796:19 Request URINALYSIS, W/ MICRO (51822)Indication: Abnormal glucose tolerance test On: 00-Oye-061221:18 Request MICROALBUMIN: CREATININE RATIO (81090) AND (98875)Indication: Abnormal glucose tolerance test On: 47-Xra-658095:18 Request METABOLIC PANEL, COMPREHENSIVE (57655)Indication: Essential hypertension On: 62-Wrp-327100:18 Request LIPID PANEL (58375)Indication: Other hyperlipidemia On: 58-Slb-083852:18 Request PSA (PROSTATE SPECIFIC ANTIGEN) (V76.44)Indication: Screening for prostate cancer On: :40 Request MICROALBUMIN: CREATININE RATIO (23672) AND (68894)Indication: Abnormal glucose tolerance test On: :40 Request METABOLIC PANEL, COMPREHENSIVE (01711)Indication: Abnormal glucose tolerance test On: :40 Request Urine Protein Electrophoresis (UPEP) (49172)Indication: recurrent uri On: :39 Request Serum Protein Electrophoresis (SPEP) (80207)Indication: recurrent uri On: :39 Request IMMUNOGLOBULIN E (IgE) (78965)Indication: Asthma, intrinsic, with status asthmaticus On: :39 Request IGA/IGD/IGG/IGM-EACH (22701)Indication: Asthma, intrinsic, with status asthmaticus On: :39 Request LIPID PANEL (70230)Indication: Other hyperlipidemia On: :38 Request ASPERGILLUS AG, EIA (64808)Indication: Cough On: :58 Request SED RATE ERYTHROCYTE (82733)Indication: Cough On: 20-Uva-585713:48 Request C-REACTIVE PROTEIN (59601)Indication: Cough On: :48 Request CBC WITH MANUAL DIFF (77556)Indication: Cough On: 33-Qxg-986668:47 Request Quantiferron gold test (51012)Indication: Cough On: :45 Request CULTURE, SPUTUM (66661)Indication: Cough On: :45 Request VITAMIN B-12 (CYANOCOBALAMIN) (04081)Indication: Fatigue On: :20 Request Vitamin D Hydroxy (91884)Indication: Fatigue On: 31-Mqj-128438:20 Request CBC WITH MANUAL DIFF (20386)Indication: Abnormal glucose tolerance test On: :19 Request METABOLIC PANEL, COMPREHENSIVE (87438)Indication: Abnormal glucose tolerance test On: :19 Request LIPID PANEL (96934)Indication: Other hyperlipidemia On: :19 Request URINALYSIS, W/ MICRO (00103)Indication: Abnormal glucose tolerance test On: :19 Request HEMOGLOBIN GLYCLATED (HGB A1C) (82919)Indication: Abnormal glucose tolerance test On: :19 Request WARREN CULTURE-OTHER (27257)Indication: Pharyngitis, acute On: 67-Qpd-312650:05 Request URINE WARREN CULTURE-MASSIEL COL COUNT (49869)Indication: Abdominal pain, acute, right lower quadrant On: :19 Request CBC WITH MANUAL DIFF (23797)Indication: Abnormal glucose tolerance test On: :08 Request METABOLIC PANEL, COMPREHENSIVE (07318)Indication: Abnormal glucose tolerance test On: :08 Request TSH (54755)Indication: Fatigue On: :02 Request CBC WITH MANUAL DIFF (26721)Indication: Abnormal glucose tolerance test On: :45 Request METABOLIC PANEL, COMPREHENSIVE (83536)Indication: Hypertension, benign On: :45 Request LIPID PANEL (56062)Indication: Other hyperlipidemia On: :45 Request METABOLIC PANEL, COMPREHENSIVE (68640)Indication: Essential hypertension On: 40-Bwp-296410:16 Request LIPID PANEL (69659)Indication: Other hyperlipidemia On: 90-Uvo-666784:15 Request URINE WARREN CULTURE-MASSIEL COL COUNT (07217)Indication: Calcium kidney stone On: 26-Gkb-176833:54 Request PSA (PROSTATE SPECIFIC ANTIGEN) (V76.44)Indication: Enlarged prostate with lower urinary tract symptoms On: 17-Mkf-347464:09 Request METABOLIC PANEL, COMPREHENSIVE (27493)Indication: Abnormal glucose tolerance test On: 56-Czq-180500:09 Request CBC WITH MANUAL DIFF (88341)Indication: Abnormal glucose tolerance test On: 86-Ycg-048739:09 Request LIPID PANEL (38429)Indication: Other hyperlipidemia On: 74-Wdk-007232:09 Request MICROALBUMIN: CREATININE RATIO (65157) AND (07423)Indication: Abnormal glucose tolerance test On: 66-Rnp-930278:09 Request LIPID PANEL (31339)Indication: Other hyperlipidemia On: :31 Request CBC WITH MANUAL DIFF (09975)Indication: Abnormal glucose tolerance test On: :31 Request METABOLIC PANEL, COMPREHENSIVE (77796)Indication: Abnormal glucose tolerance test On: :30 Request MICROALBUMIN: CREATININE RATIO (73868) AND (58146)Indication: Abnormal glucose tolerance test On: 49-Ftz-502752:28 Request METABOLIC PANEL, COMPREHENSIVE (11776)Indication: Abnormal glucose tolerance test On: 2-Jgz-047016:07 Request LIPID PANEL (90283)Indication: Other hyperlipidemia On: 3-Wvt-704241:07 Request PSA (PROSTATE SPECIFIC ANTIGEN) (V76.44)Indication: Enlarged prostate with lower urinary tract symptoms On: 1-Leo-091580:49 Request METABOLIC PANEL, COMPREHENSIVE ([id number])Indication: Essential hypertension On: 1-Ubr-541946:48 Request LIPID PANEL ([id number])Indication: Other hyperlipidemia On: :48 Request HEPATIC FUNCTION PANEL ([id number])Indication: Other hyperlipidemia On: :21 Request LIPID PANEL ([id number])Indication: Other hyperlipidemia On: :21 Request CBC WITH MANUAL DIFF ([id number])Indication: Abnormal glucose tolerance test On: :53 Request METABOLIC PANEL, COMPREHENSIVE ([id number])Indication: Abnormal glucose tolerance test On: 6-Ghi-968749:53 Request MICROALBUMIN: CREATININE RATIO ([id number]) AND ([id number])Indication: Abnormal glucose tolerance test On: 0-Cxj-968995:53 Request HEPATIC FUNCTION PANEL ([id number])Indication: Other hyperlipidemia On: 1-Gfx-897318:53 Request LIPID PANEL ([id number])Indication: Other hyperlipidemia On: 8-Ygm-006104:53 Request GLUCOSE TOLERANCE TEST (GTT) 2 hour On: 8-Qpz-030584:36 Request ([id number]) TSH ([id number])Indication: Dizziness and giddiness On: 64-Frv-104158:15 Request LIPID PANEL ([id number])Indication: Other hyperlipidemia On: 16-Iez-388169:15 Request CBC WITH MANUAL DIFF ([id number])Indication: Dizziness and giddiness On: 05-Xud-410828:15 Request METABOLIC PANEL, COMPREHENSIVE ([id number])Indication: Dizziness and giddiness On: 46-Fzj-429749:15 Request HEPATIC FUNCTION PANEL ([id number])Indication: Other hyperlipidemia On: :39 Request LIPID PANEL ([id number])Indication: Other hyperlipidemia On: 78-Qsv-761633:39 Request HEPATIC FUNCTION PANEL ([id number])Indication: Other hyperlipidemia On: 50-Nmc-163553:31 Request LIPID PANEL ([id number])Indication: Other hyperlipidemia On: 04-Dhw-167106:31 Request WARREN CULTURE-BLOOD ([id number])Indication: fever On: 5-Akt-791899:58 Request METABOLIC PANEL, COMPREHENSIVE ([id number])Indication: fever On: 9-Ujh-703788:58 Request CBC WITH MANUAL DIFF ([id number])Indication: fever On: :58 Request WARREN CULTURE-OTHER ([id number])Indication: Pharyngitis, acute On: 03-Cdf-827361:35 Request PSA (Prostate Specific Antigen), Screening ([id number])Indication: Other hyperlipidemia On: :32 Request LIPID PANEL ([id number])Indication: Other hyperlipidemia On: :31 Request URINALYSIS W/O MICRO ([id number])Indication: Hypertension, benign On: :31 Request TSH ([id number])Indication: Hypertension, benign On: :31 Request CBC WITH MANUAL DIFF ([id number])Indication: Hypertension, benign On: :31 Request METABOLIC PANEL, COMPREHENSIVE ([id number])Indication: Hypertension, benign On: :31 Request Creatine Kinase Total ([id number])Indication: Myalgia and myositis On: 2-Pdl-473812:24 Request SED RATE ERYTHROCYTE ([id number])Indication: Arthralgia On: :23 Request C-REACTIVE PROTEIN ([id number])Indication: Arthralgia On: :23 Request RHEUMATOID FACTOR-QUANT ([id number])Indication: Arthralgia On: :23 Request JOHN (ANTINUCLEAR ANTIBODY) ([id number])Indication: Arthralgia On: :23 Request Planned Encounters Medical; [facility] 3 Month FU - On: 21-Mar-2018 8:30 [facility] Fast DO, Adelaida A Fast DO, Adelaida A Planned Procedures PNEUM VAC ADLT/IMUMNOSPR, On: 06-Dec-2017 Intent SBC/INTRM ([id number])By: Flakito ACKERMAN, Comments: lot: [id number]: ite/route: L del/IMamt: 0.5mLVIS signed when applicableEVER Monroy Adelaida A Fast DO, Adelaida A Cartoid DopplerBy: Fast DO, Adelaida On: 06-Sep-2017 Intent A Fast DO, Adelaida A Radiology - Lumbar SpineBy: Fast On: 06-Jun-2017 Intent DO, Adelaida A Fast DO, Adelaida A ELECTROCARDIOGRAM, COMPLETE (ECG) On: 06-Jun-2017 Intent ([id number])By: Fast DO, Adelaida A Fast Comments: ekg [...] XRAY, PA & LATERAL On: 18-Jan-2017 Intent ([id number])By: Yola Witt Aerosol Treatment ([id number])By: On: 18-Jan-2017 Intent Yola Witt Solu -Medrol Injection, 125 mg On: 18-Jan-2017 Intent ([id number])By: Yola Witt Comments: solumedrol 125mg injectionlot: [id number]: 12/2018L 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 ELECTROCARDIOGRAM, COMPLETE (ECG) On: 05-Jan-2016 Intent ([id number])By: Flakito ACKERMAN Adelaida A Flakito Comments: ekg showed normal sinus rhythym, normal axis, no acute st/t wave changes irbb DO, Adelaida A Solu -Medrol Injection, 125 mg On: 09-May-2015 Intent ([id number])By: Samantha Grewal CNP Comments: lot: [id number]: ite/route:RGM/IMamt: 2mLVIS signed when applicableEVER Dumont Aerosol Treatment ([id number])By: On: 09-May-2015 Intent 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, [facility] - Chest- PA and [...] A Fast DO, Adelaida A Pulse Oximetry ([id number])By: Fast On: 26-Aug-2014 Intent DO, Adelaida A Fast DO, Adelaida A Comments: 94%- recheck 95 Aerosol Treatment ([id number])By: On: 10-Apr-2014 Intent Tracey Young LPN Eprescribed prescriptions On: 25-Jul-2013 Intent ([id number])By: Fast DO, Adelaida A Fast DO, Adelaida A Pulse Oximetry ([id number])By: Fast On: 02-Jul-2013 Intent DO, Adeladia A Fast DO, Adelaida A Comments: 97% Aerosol Treatment ([id number])By: On: 25-Jun-2013 Intent Samantha Grewal CNP Eprescribed prescriptions On: 25-Jun-2013 Intent ([id number])By: Samantha Grewal CNP Eprescribed prescriptions On: 02-Apr-2013 Intent ([id number])By: Leigh Ann Polk Aerosol Treatment ([id number])By: On: 26-Mar-2013 Intent Samantha Grewal CNP Eprescribed prescriptions On: 26-Mar-2013 Intent ([id number])By: Eliana Carter Eprescribed prescriptions On: 25-Dec-2012 Intent ([id number])By: Leigh Ann Polk Aerosol Treatment ([id number])By: On: 06-Nov-2012 Intent Samantha Grewal CNP Eprescribed prescriptions On: 06-Nov-2012 Intent (G8553)By: Eliana Carter Ear Irrigation ([id number])By: Carmina On: 25-Sep-2012 Intent Samantha IRVIN Comments: Ear Irrigation performed on:bilateralAmount/color removed cerumen:large amount of dark brown wax removedOUtcome:clear, pt toleratedUsed wax curettes Wax CurettesBy: Carmina IRVINSamantha On: 25-Sep-2012 Intent Eprescribed prescriptions On: 22-Sep-2012 Intent ([id number])By: Elizabet Green DO Eprescribed prescriptions On: 02-Aug-2012 Intent (G8553)By: Leigh Ann Polk Pulse Oximetry ([id number])By: Flakito On: 30-Jun-2012 Intent DO, Adelaida A Fast DO, Adelaida A Comments: 97% Eprescribed prescriptions On: 12-Jun-2012 Intent (G8553)By: Fast DO, Adelaida A Fast DO, Adelaida A Spirometry ([id number])By: Felicitas, On: 17-Jan-2012 Intent Leigh Ann Comments: good effort and curve mild restriction CT - Sinuses CompleteBy: Fast DO, On: 17-Jan-2012 Intent Adelaida A Fast DO, Adelaida A PNEUM VAC ADLT/IMUMNOSPR, On: 17-Jan-2012 Intent SBC/INTRM ([id number])By: Boris, Comments: Lot:[id number]:3-5-13Dose:0.5mLRoute:IMSite:L sreeGiven By:CHELA signed Julia IMMUNIZ ADMNIN, 1 VAC, SNGL/COMBO On: 17-Jan-2012 Intent ([id number])By: Julia Escalante CT - ChestBy: Fast DO, Adelaida A On: 17-Jan-2012 Intent Fast DO, Adelaida A Eprescribed prescriptions On: 17-Jan-2012 Intent (G8553)By: Leigh Ann Polk Eprescribed prescriptions On: 18-Oct-2011 Intent (G8553)By: Fast DO, Adelaida A Fast DO, Adelaida A EKG ([id number])By: Fast DO, Adelaida A On: 15-Oct-2011 Intent Fast DO, Adelaida A Comments: ekg- sinus with normal axis and nsivcd and no acute changes Eprescribed prescriptions On: 09-Aug-2011 Intent (G8553)By: Fast DO, Adelaida A Fast DO, Adelaida A PFT - CompleteBy: Fast DO, Adelaida On: 08-Mar-2011 Intent A Fast DO, Adelaida A Pulse Oximetry ([id number])By: Ciesa On: 02-Feb-2011 Intent ALBARO Samantha Taylor Aerosol Treatment ([id number])By: On: 02-Feb-2011 Intent Cialyse IRVIN Samantha Taylor Radiology - Chest- PA and LatBy: On: 18-Jan-2011 Intent Fast DO, Adelaida A Fast DO, Adelaida A Pulse Oximetry ([id number])By: On: 18-Jan-2011 Intent Leigh Ann Polk Comments: 93% TDAP VACCINE >7 IM ([id number])By: On: 07-Dec-2010 Intent Leigh Ann Polk Comments: Lot #:[id number] date:mount given:0.5mlRoute: IMSite given:left deltGiven by: DANIEL Zavaleta Eprescribed prescriptions On: 07-Dec-2010 Intent (G8553)By: Fast DO, Adelaida A Fast DO, Adelaida A FLU VAC, SPLIT, >3 YEARS, On: 07-Dec-2010 Intent INTRAMUSC ([id number])By: Felicitas, Comments: received at work Leigh Ann Toradol Injection, 30 mg On: 05-Nov-2010 Intent ([id number])By: Elizabet Green DO Comments: Lot:[id number]:apr 05Amt:30mg/mlRoute:IMSite:left hip Given By: ILDA Tran Ear Irrigation ([id number])By: Peter On: 05-Nov-2010 Elizabet Thomson DO Comments: Left ear irrigated, large amt of wax removed. pt tolerated well. Eprescribed prescriptions On: 05-Nov-2010 Intent (G8553)By: Elizabet Green DO Wax CurettesBy: Peter ACKERMAN, On: 05-Nov-2010 Intent Elizabet SPECIMEN HNDLNG/TRNSPRT, OFFC > On: 05-Nov-2010 Intent LAB ([id number])By: Elizabet Green DO Nuclear Medicine - HIDA [...] call wet read DO, Adelaida A Spirometry ([id number])By: Fast DO, On: 14-Sep-2010 Intent Adelaida A Fast DO, Adelaida A Comments: good effort and curve- mild restriction Eprescribed prescriptions On: 14-Sep-2010 Intent (G8553)By: Fast DO, Adelaida A Fast DO, Adelaida A Pulse Oximetry ([id number])By: Fast On: 14-Sep-2010 Intent DO, Adelaida A Fast DO, Adelaida A Comments: 94-95 Radiology - Chest- PA and LatBy: On: 14-Sep-2010 Intent Fast DO, Adelaida A Fast DO, Adelaida A Pulse Oximetry ([id number])By: Carmina On: 23-Feb-2010 Intent ALBARO Anamaria Aerosol Treatment ([id number])By: On: 23-Feb-2010 Intent Ciescalin IRVIN Anamaria Pulse Oximetry ([id number])By: Carmina On: 26-Jan-2010 Intent ALBARO Anamaria Aerosol Treatment ([id number])By: On: 26-Jan-2010 Intent Carmina IRVIN Anamaria Spirometry ([id number])By: Felicitas On: 29-Apr-2008 Intent Leigh Ann Comments: good effort and curve normal EKG ([id number])By: Fast DO, Adelaida A On: 20-Apr-2007 Intent [...] DO, Adelaida A Flakito Comments: Lot #: [id number] date: 10/30Amount given: 2 gramsRoute: IMSite given: Right hip and left hipGiven by: Calin Tonwsend LPN DO, Adelaida A Spirometry ([id number])By: Fast DO, On: 27-Mar-2007 Intent Adelaida A Fast DO, Adelaida A Comments: good effort and curve normal EBV SEROLOGIC TESTBy: Mary Ann Salcido On: 17-Feb-2007 Intent RUDY-GUZMAN VCA ANTIBODY On: 16-Feb-2007 Intent MEASUREMENTBy: Mast RN, Negrita SPECIMEN HNDLNG/TRNSPRT, OFFC > On: 06-Feb-2007 Intent LAB ([id number])By: Fast DO, Adelaida A Fast DO, Adelaida A Ultrasound - TesticularBy: Fast On: 13-Oct-2006 Intent DO, Adelaida A Fast DO, Adelaida A Inhaler Demo ([id number])By: Flakito DO, On: 26-Sep-2006 Intent Adelaida A Fast DO, Adelaida A Radiology - Hip - LeftBy: Fast On: 26-Sep-2006 Intent DO, Adelaida A Fast DO, Adelaida A Radiology - Hip - RightBy: Fast On: 26-Sep-2006 Intent DO, Adelaida A Fast DO, Adelaida A Bio Z ([id number])By: Fast DO, Adelaida A On: 25-Jul-2006 Intent Fast DO, Adelaida A Comments: normal paremters Six Minute Walk Assessment On: 25-Jul-2006 Intent ([id number])By: Fast DO, Adelaida A Fast DO, Adelaida A Radiology - Chest- PA and LatBy: On: 25-Jul-2006 Intent Fast DO, Adelaida A Fast DO, Adelaida A Spirometry ([id number])By: Flakito ACKERMAN, On: 25-Jul-2006 Intent Adelaida A Fast DO, Adelaida A Comments: good effort and curve- normal EDISON (Ankle Brachial Index) On: 20-Jul-2006 Intent ([id number])By: Leigh Ann Polk Comments: done EDISON (Ankle Brachial Index) On: 17-May-2006 Intent ([id number])By: Fast DO, Adelaida A Fast DO, Adelaida [...] Advance Directives Name Dates Details Immunization Registry [place] - Effective on Effective: 31-Jan-201701/31/2017. 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[employer]- [...] [facility] and then went to [facility] to have the doppler done.- got [...] 2 days with bad UTI.- was at [facility] and getting cystoscopy done and was found to be retaining urine- - by the next night he was sick with no appetitie and just felt bad went to bed - woke up next day- and felt bad- and went to [facility]- and had uti- was there 2 [...] up hospital : Pt was transfered to [facility] for heart cath and discharged sat 06/30/13.- he had heart cath again at [facility] and one vessel which shows 20percent [...] kidney then goes down- [facility]- to try colonsocopy- -his [...] saw a Dr Barker a psychiatrist in [place]- he thought mostly anxiety so left him [...] gerd- so he is going back to [facility]- mood good with celexa-less tense, [ADDITIONAL REASON] [...] issues with focusing- and racing thoughts - [facility] has been able to contorl [...]
--- OUTSIDE RECORDS SUMMARY | 2018-05-15 00:38 | XMS RPT_ITS | Continuity of Care Document ---
:1950 Author Organization [facility] Address [address] [facility] [address] [place] [address] Phone Care Team Providers Name Role Phone Adelaida Fraga DO Unavailable Remigio Lares MD Unavailable Tawanda Alonso Unavailable [facility] Unavailable Eliana Carter Unavailable [...] colonsoocpy 09/05- polyps - repeat [address] [facility] Status: Active Coronary artery disease (I25.10, [...] Solution daily for 90 days Quantity: 3 {[place]} Refills: 5 Ordered:31-Oct-2017 Fast DO, Adelaida AFast [...] A Start : 02-Nov-2017 Active Comments:sixtyDX: M54.16, M51.12140,411,000 - OD risk 100 Lunesta 3 MG [...] days Quantity: 120 {Tablet} Refills: 0 Ordered:06-Apr-2016 Flkaito ACKERMANManolocalin TOPETEtesfaye ACKERMAN Adelaida A Start : [...] 30 {Tablet} Refills: 3 Ordered:06-Sep-2017 DO, Adelaida AFetsfaye DO, Adelaida A Start : 27-Jun-2017 End [...] 20-Mar-2013 Inactive Comments:alternate with 20mg(per hans at [facility] - was not fillable if more than 1qd and would require pa at [phone] or [phone] - sent in this way to see [...] (Oral Capsule) 1 (one) Capsule Capsule bid d9zolro for 21 days Quantity: 42 {Capsule} Refills: [...] : 02-Sep-2010 End : 05-Nov-2010 Inactive NYSTATIN, 349580KHNC/ML (Mouth/Throat Suspension) 10 cc tid for 0 [...] : 22-Jun-2013 End : 03-Sep-2013 Inactive ZOSTAVAX, 29797ANF/0.65ML (Subcutaneous Solution Reconstituted) 1 For Solution sc [...] Quantity: 3 {Inhaler} Refills: 3 Ordered:10-Apr-2014 Slarb ORE ROASTER, Tracey Start : 22-Jun-2013 End : 10-Apr-2014 Discontinued ATENOLOL, 50MG (Oral Tablet) 1 tab Tablet qd for 30 days Quantity: 30 {Tablet} Refills: 0 Ordered:10-Apr-2014 Slarb ORE ROASTER, Tracey Start : 12-Jun-2012 End : 10-Apr-2014 [...] Quantity: 60 {Capsule} Refills: 3 Ordered:10-Apr-2014 Slarb ORE ROASTER, Tracey Start : 29-Oct-2013 End : 10-Apr-2014 Discontinued Dymista 137-50 MCG/ACT Nasal Suspension 1 spray each nostril qd for 0 days Quantity: 2 {[place]} Refills: 0 Ordered:11-Jun-2016 Leigh Ann Polk Start [...] Start : 05-Jan-2016 End : 06-Apr-2016 Discontinued Comments:[facility]Brittney report#[id number]- df viewed and approved- gave scripts to [...] days Quantity: 30 {Tablet} Refills: 2 Ordered:09-Aug-2016 Leihg Ann Polk Start : 27-Jan-2015 End : [...] x3 one on scalp two on right hindu Status: Inactive as of 06-Jun-2017 Acute sinusitis, [...] Visit Report Result: Comments: See Note; NOTES: [facility] 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 Atheros clerosis of [place] coronary artery of [place] heart without angina pectoris I25.10 PTCA/RINA to [...] Code Off vis,est,level 3 Diagnoses Atherosclerosis of [place] coronary artery of [place] heart without angina pectoris I25.10 [place] vs. tra nsplanted heart: [place] heart Essential hypertension I10 Hypertension type: essential hypertension Pure hypercholesterolemia E78.00; E78.0 Hyperlipidemia type: pure hypercholesterolemia Prinzmetal angin a I20.1 Coding Level of Care Code Off vis,est,level 3 Diagnoses Atherosclerosis of [place] coronary artery of [place] heart without angina pectoris I25.10 [place] vs. transplanted heart: [place] heart Es sential hypertension I10 Hypertension type: essential hypertension Pure hypercholesterolemia E78.00; E78.0 Hyperlipidemia type: pure hypercholesterolemia Prinzmetal angina I20.1 01/10/18 1104 &#6 0;Electronically signed by Sabra KENDALL> Date Sabra KENDALL Cosigner Signature: Date (if applicable) CC: Adelaida Fraga DO 26-Sep-2017 Brain W/WO Contrast Result: Comments: See Note; NOTES: [facility] Imaging Services [address] [place] [address] Brain W/WO Contrast MR#: [id number] Acct: [id number] Name: YUMIKO LANDRUM Rep #: [id number] : 1950 M 67 From: Rodney Sarah MD PCP: Adelaida Fraga DO Status: REG CLI Study: Brain W/WO Contrast Date of Exam: 09/26/17 Exam# [id number] Ordering Dr: Perico Crowe MD STUDY: MRI [...] CC: Perico Crowe MD; Adelaida Fraga DO Steward/Stewardess Club Car: Signed 17-Sep-2017 Carotid Duplex Ultrasound Result: Comments: See Note; NOTES: [facility] Cardiovascular Services [address] [place] [address] Carotid Duplex Ultrasound 09/16/17 1012 MR#: [id number] Acct: [id number] Name: YUMIKO MCCOLLUM Rep #: [id number] : 1950 66 From: Jung Garcia MD Attending Dr: Adelaida Fraga DO Status: REG CLI Ordering Dr: Adelaida Fraga DO Date: 09/16/17 Location: [facility] Sex: M C Admitted: Reason For Study: [...] the left vertebral artery. Procedure Carotid Duplex 09223. The study was technically difficult. Exam performed [...] DO Date Dictated: 1012 Date Transcribed: 09/17/171510 Steward/Stewardess Club Car: Signed 17-Aug-2017 History and Physical Exam Result: Comments: See Note; NOTES: [facility] Medical Records Department [address] [place] [address] History and Physical 08/17/17913 MR#: [id number] Acct: [id number] Name: FRANCISCO E Rep #: [id number] : 1950 66 From: Remigio Lares MD PCP: Adelaida Fraga DO Status: REG [facility] Location: [facility] Problem List (1) Abnormal stress test Status: Acute (2) Atherosclerotic heart d isease of [place] coronary artery without angina pectoris Status: Chronic Qualifiers: [place] vs. transplanted heart: [place] heart Qualified Code(s): I25.10 - Atherosclerotic heart disease of [place] coron elise artery without angina pectoris Comment: [...] was trivial MR and TR and mild [place]. His estimated RV systolic pressure was 30 [...] please see previously dictated out the patient CHEMEHUEVI from 07/14/2017. Review of systems: Upon review [...] this approach. This note was generated with [employer] dictation software. It may contain incorrect words, spelling, and punctuation that were not noted in checking the note bef ore signing. 08/17/17 0925 <Electronically signed by Remigio Lares MD> Date Remigio Lares MD Cosigner Signature: Date (if applicable) CC: Adelaida Fraga DO; Remigio Lares MD Signed 11-Aug-2017 Chest PA and Lateral Result: Comments: See Note; NOTES: [facility] Imaging Services [address] [place], [place] [address] [address] Chest PA and Lateral MR#: [id number] Acct: [id number] Name: YUMIKO LANDRUM Rep #: [id number] : 1950 M 66 From: Will Guerrero MD PCP: Adelaida Fraga DO Status: REG CLI Study: Chest PA and Lateral Date of Exam: 08/11/17 Exam# [id number] Ordering Dr: Remigio Lares MD STUDY: X-RAY [...] CC: Adelaida Fraga DO; Remigio Lares MD Steward/Stewardess Club Car: Signed 02-Aug-2017 Stress Report Result: Comments: See Note; NOTES: [facility] Cardiovascular Services [address] [place] [address] MR#: [id number] Acct: [id number] Name: YUMIKO LANDRUM Rep #: [id number] : [birth year] 66 From: Remigio Lares MD [...] 72 %. This note was generated with [employer] software. It may contain incorrect words, spelling, and punctuation that were not noted in checking the note before signing. 08/02/17 8625 <Electronically signed by Remigio Lares MD> Date Remigio Lares MD CC: Adelaida Fraga DO; Remigio Lares MD Date Dictate d: 08/02/171638 Date Transcribed: 08/02/171638 Steward/Stewardess Club Car: PM Signed 24-May-2018 Cardiology Visit Report Result: Comments: See Note; NOTES: [facility] [address] [place] [address] OFFICE VISIT Date of Service: 07/14/17 MR#: [id number] Acct: [id number] Name: YUMIKO LANDRUM Rep #: [id number] : 1950 Provider: Remigio Lares MD Age/Sex: 66/M [place] [facility] [place] Status: Signed HPI HPI Details: YUMIKO LANDRUM, is a 66 M who presents to the office today for outpatient card iovascular consultation for history of underlying CAD status post LAD PCI. He has been cared for in the past both by the [facility] members (Drs. Griggs and Edwin), at [facility] by Dr. Rosales, and at [facility] by Dr. Maury Veliz. He states he lost saw Dr. Veliz approximately 1 year ago. He is now relocating his care locally. He has a history of underlying CAD. He underwent a previous diagnostic car diac catheterization on 08/11/2005 at [facility]. At that point in time he [...] no significant stenosis. In April 2008, at [facility], he had a repeat diagnostic cardiac [...] luminal irregularities. He apparently was transferred to [facility] for further evaluation and care. The [...] an LYNDSEY inhibitor. He believes his former repair table operator remove these medications from nc s medication list. He does not recall [...] Prinzmetal angina (Acute) Atherosclerotic heart disease of [place] coronary artery without angina pectoris (Chroni c) [...] affect Assessment AND Plan 1. Atherosclerosis of [place] coronary artery of [place] heart without angina pectoris I25.10 PTCA/RINA to [...] Code Off vis,new,level 4 Diagnoses Atherosclerosis of [place] coronary artery of [place] heart without angina pectoris I25.10 [place] vs. transplanted heart: n ative heart Presence of stent in coronary artery Z95.5 Hyperlipidemia, unspecified hyperlipidemia type E78.5 Hyperlipidemia type: unspecified Essential hypertension I10 Hypertension type: essential hype rtension COPD (chronic obstructive pulmonary disease) J44.9 Coding Level of Care Code Off vis,new,level 4 Diagnoses Atherosclerosis of [place] coronary artery of [place] heart without angina pectoris I 25.10 [place] vs. transplanted heart: [place] heart Presence of stent in coronary artery Z95.5 Hyperlipidemia, unspecified hyperlipidemia type E78.5 Hyperlipidemia type: unspecified Essential hypertension I10 Hypertension type: essential hypertension COPD (chronic obstructive pulmonary disease) J44.9 07/14/17 1558 <Electronically signed by Remigio Lares MD> Date Remigio Lares MD Cosign Signature: Date (if applicable) CC: Adelaida Fraga DO 14-Jul-2017 12 Lead EKG performed by BMS Result: Comments: See Note; NOTES: [facility] [address] [place] [address] 12 Lead EKG performed by [facility] 07/14/171435 MR#: [id number] Acct: [id number] Name: YUMIKO LANDRUM Rep #: [id number] : 1950 66 From: Remigio Lares MD Attending Dr: Remigio Lares MD Status: DEP [facility] Ordering Dr: Remigio Lares MD Date: 07/14/17 [place] [facility] M C Admitted: BMS/12 Lead E[place] [facility] ECG Report Interpretation Sinus Rhythm Right bundle branch block. ABNORMAL Electronically signed on 07/14/2017 at 17:15 by Remigio Lares 07/14/17 1717 Date Remigio Lares MD CC: Adelaida Fraga DO Date Dictated: 07/14/171435 Date Transcribed: 07/14/171435 Steward/Stewardess Club Car: PM Signed 04-Jul-2017 TXT - Blood Flow Screening Result: Comments: See Note; NOTES: [facility] Cardiovascular Services [address] [place] [address] 07/04/17 0840 MR#: [id number] Acct: [id number] Name: YUMIKO LANDRUM Rep #: [id number] [...] (1.0 or greater). Ordering Physician: Adelaida Fraga [facility] Physician: Adelaida Fraga Performed By: Kayla Kelley, RDLEANNE, RVT 07/04/17 2222 Date Tyrese Garcia MD CC: Adelaida Fraga DO Date Dictated: 07/04/17 0840 Date Transcribed: 07/04/172221 Steward/Stewardess Club Car: Signed 06-Jun-2017 L/S Spine Min 4 Views Result: Comments: See Note; NOTES: [facility] Imaging Services [address] [place] [address] L/S Spine Min 4 Views MR#: [id number] Acct: [id number] Name: YUMIKO LANDRUM Rep #: [id number] : 1950 M 66 From: Rafael Manley DO PCP: Adelaida Fraga DO Status: REG CLI Study: L/S Spine Min 4 Views Date of Exam: 06/06/17 Exam# [id number] Ordering Dr: Adelaida Fraga DO STUDY: X-RAY [...] Rafael Manley DO at 18:01 EDT Tel [phone], Service support , CC: Adelaida Fraga DO Steward/Stewardess Club Car: Signed 18-Feb-2017 Ankle min 3 Views Result: Comments: See Note; NOTES: [facility] Imaging Services [address] [place] [address] Ankle min 3 Views MR#: [id number] Acct: [id number] Name: YUMIKO LANDRUM Rep #: [id number] OB: 1950 M 66 From: Trevon Carrillo MD PCP: Adelaida Fraga DO Status: REG CLI Study: Ankle min 3 Views Date of Exam: 02/18/17 Exam# [id number] Ordering Dr: Adelaida Fraga DO STUDY: X-RAY [...] Service support , CC: Adelaida Fraga DO Steward/Stewardess Club Car: Signed 18-Feb-2017 Chest without Contrast Result: Comments: See Note; NOTES: [facility] Imaging Services [address] [place] [address] Chest without Contrast MR#: [id number] Acct: [id number] Name: YUMIKO LANDRUM Rep #: [id number] : 1950 M 66 From: Kaitlin Campoverde PCP: Adelaida Fraga DO Status: REG CLI Study: Chest without Contrast Date of Exam: 02/18/17 Exam# [id number] Ordering Dr: Adelaida Fraga DO STUDY: CT [...] Service support , CC: Adelaida Fraga DO Steward/Stewardess Club Car: Signed 10-Feb-2017 Chest PA and Lateral Result: Comments: See Note; NOTES: [facility] Imaging Services [address] [place] [address] Chest PA and Lateral MR#: [id number] Acct: [id number] Name: YUMIKO LANDRUM Rep #: [id number] : 1950 M 66 From: Chava Fu MD PCP: Adelaida Fraga DO Status: REG CLI Study: Chest PA and Lateral Date of Exam: 02/10/17 Exam# [id number] Ordering Dr: Yola Witt STUDY: X-RAY CHEST [...] , CC: COCO Witt; Adelaida Fraga DO Steward/Stewardess Club Car: Signed 18-Jan-2017 Chest PA and Lateral Result: Comments: See Note; NOTES: [facility] Imaging Services [address] [place] [address] Chest PA and Lateral MR#: [id number] Acct: [id number] Name: YUMIKO LANDRUM Rep #: [id number] : 1950 M 66 From: Erwin Jiménez MD PCP: Adelaida Fraga DO Status: REG CLI Study: Chest PA and Lateral Date of Exam: 01/18/17 Exam# [id number] Ordering Dr: Yola Witt NP-C STUDY: X-RAY [...] EST Tel , Service support , CC: ADMISSION SPECIALIST-C Yola Witt; Adelaida Fraga DO Steward/Stewardess Club Car: Signed 11-Apr-2015 Chest PA and Lateral Result: Comments: See Note; NOTES: [facility] Imaging Services [address] [place] [address] Verdana 4d Chest PA and Lateral MR#: [id number] Acct: [id number] Name: YUMIKO LANDRUM Rep #: [id number] : 1950 M 64 From: Stephen Barba MD PCP: Adelaida Fraga DO Status: REG CLI Study: Chest PA and Lateral Date of Exam: 04/11/15 Exam# [id number] Ordering Dr: Adelaida Fraga DO STUDY: X-RAY [...] FACR at 20:20 EST , Service support [phone], RAD/Chest PA and Lateral IMPRESSION: Normal x-ray examination of the chest. No lingular infiltrate is noted on today's examination Electronically Signed: Stephen Barba MD, FACR at 20:20 EST , Service support [phone], CC: Adelaida Fraga DO Steward/Stewardess Club Car: Signed 11-Apr-2015 Hip min 2 Views Result: Comments: See Note; NOTES: [facility] Imaging Services [address] [place] [address] Verdana 4d Hip min 2 Views MR#: [id number] Acct: [id number] Name: DOMINICKNATHAN QUIÑONEZNI Brittney [place] Rep #: [id number] : 1950 64 From: Stephen Barba MD PCP: Adelaida Fraga DO Status: REG CLI Study: Hip min 2 Views Date of Exam: 04/11/15 Exam# [id number] Ordering Dr: Adelaida Fraga DO ST UDY: [...] FACR at 20:19 EST , Service support [phone], RAD/Hip min 2 Views IMPRESSION: Normal x-ray examination of the pelvis and hip. Electronically Signed: Stephen Barba MD, FACR 201 07/23/18 at 20:19 EST , Service support [phone], CC: Adelaida Fraga DO Steward/Stewardess Club Car: Signed 11-Apr-2015 L/S Spine Min 4 Views Result: Comments: See Note; NOTES: [facility] Imaging Services [address] [place] [address] Verda 4d L/S Spine Min 4 Views MR#: [id number] Acct: [id number] Name: YUMIKO LANDRUM Rep #: [id number] : 1950 M 64 From: Stephen Barba MD PCP: Adelaida Fraga DO Status: REG CLI Study: L/S Spine Min 4 Views Date of Exam: 04/11/15 Exam# [id number] Ordering Dr: Susannah Fraga ra, DO STUDY: [...] FACR at 20:20 EST , Service support [phone], RAD/L/S Spine Min 4 Views IMPRESSION: M ild degenerative disc disease at L2-3 and L5-S1. Facet arthrosis at L4-5 and L5-S1. Mild dextroscoliosis. Electronically Signed: Stephen Barba MD, FACR at 20:20 EST Tel , Service support [phone], CC: Adelaida Fraga DO Steward/Stewardess Club Car: Signed 27-Aug-2014 Chest PA and Lateral Result: Comments: See Note; NOTES: [facility] Imaging Services [address] [place] [address] Radiology Report MR#: [id number] Acct: [id number] Name: YUMIKO LANDRUM Rep #: [id number] : 1950 M 63 From: Wilfredo Alvarado MD PCP: Adelaida Fraga DO Status: REG CLI Study: Chest PA and Lateral Date of Exam: 08/27/14 Exam# [id number] Ordering Dr: Adelaida Fraga DO STUDY: X- [...] Wilfredo Alvarado MD at 15:46 EDT Tel [phone], Service support [phone], 0079 RAD/Chest PA and Lateral IMPRESSION: Inc reased markings in the lingular segment of the left upper lobe suggestive of early infiltrate. Followup is recommended. Electronically Signed: Wilfredo Alvarado MD at 15:46 EDT Tel [phone], Service support [phone], CC: Adelaida Fraga DO Steward/Stewardess Club Car: Signed 02-Jul-2013 12 Lead Electrocardiogram Result: Comments: See Note; NOTES: [facility] Cardiovascular Services [address] [place] [address] 12 Lead EKG 06/17/13 1938 MR#: [id number] Acct: [id number] Name: CITLALLI LANDRUM Rep #: [id number] : 1950 62 From: Remigio Lares MD [...] ECG Confirmed by GERDA CALVO, REMIGIO ([id number]), assignment desk editor MADELYN RUBALCAVA ([id number]) on 2013 10:04:35 AM Referred By: Jose Fernando Confirmed By:REMIGIO LARES MD CC: Adelaida byrd DO Date Dictated: 06/17/131937 Date Transcribed: 06/17/131937 Steward/Stewardess Club Car: Signed 30-Jun-2013 Emergency Department Summary Result: Comments: See Note; NOTES: [facility] Medical Records Department [address] [place] [address] Emergency Department Summary MR#: [id number] Acct: [id number] Name: YUMIKO LANDRUM Rep #: [id number] : 1950 62 From: Jose Fernando MD PCP: Adelaida Fraga DO Status: DEP ER DATE OF SERVICE: 06/28/2013 CHIEF COMPLAINT: Chest pain. HISTORY OF PRESENT ILLNESS: The patient states over the past 8 hours, he has had intermittent discomfort in the chest of burning to ache similar to angina. He had an PA, he thinks, back in 2011 when he had a stent placed by Dr. Mariah carr in [facility]. He has been off his blood [...] sensation, cranial nerve function and treatment. [facility] DEPARTMENT COURSE: Portable one-view chest [...] a 3. He agreed to go to [facility] where his repair table operator is in case he needs another cath and stent. He was stable for transfer. [facility]. Trujillo as manufacturing team member accepted the patient after being advised of all the above through the transfer steam trap man. He did not want to talk to me. The patient is stable for transfer, with him. DIAGNOSES: 1. Chest pain. 2. Unstable angina. MD Abdullahi Vasquez C: Adelaida Fraga DO T: NTS JOB: [id number] 06/30/13 0021 <Electronically signed by Jose Fernando MD> Date Jose Fernando MD CC: Adelaida Fraga DO Date Dictated: 06/28/13 2255 Date Transcribed: 06/28/132254 Steward/Stewardess Club Car: Signed 28-Jun-2013 Chest 1 View (Portable) Result: Comments: See Note; NOTES: [facility] Imaging Services [address] [place] [address] Radiology Report MR#: [id number] Acct: [id number] Name: YUMIKO LANDRUM Rep #: [id number] : 1950 M 62 From: Wilfredo Alvarado MD PCP: Adelaida Fraga DO Status: DEP ER Study: Chest 1 View (Portable) Date of Exam: 06/28/13 Exam# [id number] Ordering Dr: Jose Fernando MD STUDY: X-RAY [...] Wilfredo Alvarado MD at 9:06 EDT Tel [phone], Service support [phone], CC: Adelaida Fraga DO; Jose Fernando MD Steward/Stewardess Club Car: Signed Immunization Name Dates Details Influenza vaccine, split, 3yrs &>, IM (AFLURIA) on: Nov-2017 Influenza, inj, MDCK, preservative free, q.valent on: 07-Dec-2016 Comments: Site: Lot #: [id number] Family History Unknown Family Member Name Dates [...] Status: Active 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 [place], [place], [id number] Absolute Lymph 1.76 {X10_3/ul} (Normal) Range: 0.83-4.51 [...] 4.6-6.2 WBC 5.7 K/mm3 (Normal) Range: 4.4-11.0 38-Zfg-429556:31 Comprehensive Metabolic Profil Comments: [facility] [address] [place], [place], [id number] ; fu 10-16 DF GAP 9 (Normal) [...] A.D.A. criteria.Please note revised GLUCOSE reference range anamcbpsr87/02/2018. 67-Mbn-425130:31 Hemoglobin A1c Comments: [facility] [address] [place], [address] HGB A1C 6.0 % (Normal) Range: 4.2-6.3 91-Wtr-113961:31 Lipid Profile Comments: [facility] [address] [place], [address] VLDL 24 mg/dL (Normal) Range: 5-40 LDL [...] 200-240 mg/dL Borderline >240 mg/dL High Risk 38-Xxq-737140:31 PSA,Total - Annual Screen Comments: [facility] [address] [place], [place], [address] PSA,TOT SCREEN 0.50 ng/mL (Normal) Range: 0.00-4.00 Comments: This test was performed using the TPSA assay method for theIndiewalls chemistry system. Values obtained with differentassay methods cannot be used interchangably.When changing PSA assays in the course of monitoring apatient, additional sequential testing should be carriedout to confirm baseline values. 79-Vtc-619706:42 Aspergillus Antibodies Comments: [facility] (refer to report for specific site)refer to report for address and phone number Asp. niger Negative (Normal) Asp. flavus Negative (Normal) Asp. fumigatus Negative (Normal) 97-Lpa-829592:42 Immunoglobulin E Comments: [facility] (refer to report for specific site)refer to report for address and phone number IMMUNO E 19 {IU/mL} (Normal) Range: 0-100 17-Qgm-774273:42 Immunoglobulin G Comments: [facility] (refer to report for specific site)refer to report for address and phone number IMMUNO G 702 mg/dL (Normal) Range: 700-1600 Comments: Performed at: [address] [id number] Director: Joseph Velez MD, Phone: [phone] at: [address]Lab Director: Hugo Britt PhD, Phone: [phone] 37-Dgz-567413:42 Miscellaneous Lab Comments: Comments: [id number] CASTRO,RTTest(s) [facility]: [facility] [address] [place], [address] Procedure MISC Comments: TEST RESULT UNITS REFERENCE INTERVALA. fumigatus #1 Abs NEGATIVE NEGATIVE TESTING PERFORMED AT [facility]. O LAB (Normal) RIGINAL REPORT ON FILE IN LAB CONTAINS ADDITIONAL TEST SITE INFORMATION. TEST 5-Cnz-506274:28 Acetylcholine Receptor Comments: Has Patient had Radioactive In[facility] for X-ray?: [facility] (refer to report for specific site)refer to report for address and phone number ACTYL [id number] < 0.03 nmol/L (Normal) Range: 0.00-0.24 Comments: Negative: 0.00 - 0.24 Borderline: 0.25 - 0.40 Positive: > 0.40Performed at: [place] [id number] Alicia Granado N C [id number] Director: Joseph Velez MD, Phone: [phone] 1-Wro-029268:28 BUN 9 mg/dL (Normal) Comments: [facility] [address] [place], [address] Range: 7-18 7-Igy-069261:28 Serum Creatinine AND GFR Comments: [address] [place], [address] EST GFR - AA 100 mL/min (Normal) Comments: GFR Calc EST GFR 83 mL/min (Normal) Comments: Non- GFR Calc CREAT,SERUM 0.97 mg/dL (Normal) Range: 0.70-1.30 Comments: The validity of the calculated GFR AND GFRAA in patients over70 years has not been determined. Clinical correlation isessential. 23-Wkl-639313:13 Culture, Fungus 8482 Comments: [place] [address] [place], [address] CUF See Note Comments: Cu,Atvldc9258 TESTING PERFORMED AT [facility]. ORIGINAL REPORT ON FILE IN LAB CONTAINS ADDITIONAL TEST SITE INFORMATION. (Normal) ORGANISM 1: Barron albicansAmount Growth Growth ORGANISM 2: Penicillium speciesAmount Growth Growth 16-Alr-245008:13 Culture, Sputum Comments: [place] [id number] [place], [address] CUSP See Note (Normal) Comments: Gram StainAcceptable Specimen? Yes (<25 Epithelial cells per/lpf) Gram Stain 2+ White Blood Cells 2+ Epithelial cells 4+ Gram positive cocci 4+ Gram positive rods Resp. CultureNo Haemoph ilus, Streptococcus pneumoniae, beta-hemolytic Streptococcus or Staphylococcus aureus isolated. ORGANISM 1: Yeast Like OrganismAmount Growth Rare ORGANISM 2: Mixed FloraAmount Growth 3+ :59 CBC W/Diff, Automated Comments: [facility] Ecvzgzkqeg15[address] [place], [address] Absolute Lymph 1.98 {X10_3/ul} (Normal) Range: 0.83-4.51 [...] 4.6-6.2 WBC 10.8 K/mm3 (Normal) Range: 4.4-11.0 14-Nhb-200623:59 Comprehensive Metabolic Profil Comments: [facility] Hworkkcfwz18[address] [place], [place], [address] GAP 10 (Normal) Range: 5-15 CO2 27.0 [...] A.D.A. criteria.Please note revised GLUCOSE reference range raunrltis95/02/2018. 68-Kje-393161:59 Hemoglobin A1c Comments: [facility] Fhaagwskid[address] [place], [place], [address] HGB A1C 6.2 % (Normal) Range: 4.2-6.3 84-Xzi-825234:59 Lipid Profile Comments: [facility] Knofuctadd[address] [place], [place], [id number] VLDL 13 mg/dL (Normal) Range: 5-40 LDL [...] 200-240 mg/dL Borderline >240 mg/dL High Risk 46-Qxv-053746:59 Microalb:Creat Ratio,Random UR Comments: [facility] Mqdmypmlht40[address] [place], [place], [id number] MALB:CREAT 10.1 {mg/g_CRE} (Normal) MICROALBUMIN,UR 5.6 mg/L (Normal) UR CREAT 55.70 mg/dL (Normal) 2-Tpd-908979:45 Basic Metabolic Profile (BMP) Comments: [facility] Cvxksmuhvc4[address] [place], [place], [address] GAP 6 (Normal) Range: 5-15 CO2 29.0 [...] Comments: Please note revised GLUCOSE reference range /02/2018. 1-Cht-837506:45 Lipid Profile Comments: [facility] Rfzdsjirkh34[address] [place], [place], [address] VLDL 22 mg/dL (Normal) Range: 5-40 LDL [...] 200-240 mg/dL Borderline >240 mg/dL High Risk 4-Xje-147931:45 Liver Profile Comments: [facility] Bwutfmowxi26[address] [place], [place], [address] D BILI 0.13 mg/dL (Normal) Range: 0.00-0.30 T BILI 0.50 mg/dL (Normal) Range: 0.20-1.00 ALT 27 U/L (Normal) Range: 16-61 ALK P 53 U/L (Normal) Range: 45-117 AST 20 U/L (Normal) Range: 15-37 GLOB 4.3 g/dL (Abnormal) Range: 2.2-4.2 ALB 3.0 g/dL (Abnormal) Range: 3.2-5.0 T PROT 7.3 g/dL (Normal) Range: 6.4-8.2 68-Bxg-770184:31 Basic Metabolic Profile (BMP) Comments: [facility] Vsskdmymvm64[address] [place], [place], [address] GAP 4 (Abnormal) Range: 5-15 CO2 27.0 [...] criteria.Please note revised GLUCOSE reference range /02/2018. 16-Dfs-812400:31 CBC-Complete Blood Cnt No Diff Comments: [facility] Kunzrdkdvb[address] [place], [place], [address] MPV 8.7 fL (Normal) Range: 6.2-12.0 PLT [...] 4.6-6.2 WBC 9.6 K/mm3 (Normal) Range: 4.4-11.0 90-Yic-209546:31 Partial Thromboplast Time Comments: [place] [address] [place], [address] PTT 26.1 s (Normal) Range: 24.1-36.2 64-Pxh-371798:31 Prothrombin Time w/INR Comments: [address] [place], [address] INR 0.9 (Normal) PROTIME 12.5 s (Normal) Range: 11.7-14.9 :00 Culture, Fungus 8482 Comments: [address] [place], [address] CUF See Note Comments: Cu,Xnakyy3214 TESTING PERFORMED AT [facility]. ORIGINAL REPORT ON FILE IN LAB CONTAINS ADDITIONAL TEST SITE INFORMATION. (Normal) ORGANISM 1: Barron albicansAmount Growth Growth ORGANISM 2: Penicillium speciesAmount Growth Growth ORGANISM 3: Aspergillus speciesAmount Growth Growth 49-Gap-62056:00 Culture, Sputum Comments: [address] [place], [address] CUSP See Note (Normal) Comments: Gram StainAcceptable Specimen? Yes (<25 Epithelial cells per/lpf) Gram Stain 1+ White Blood Cells Rare Epithelial cells 4+ Gram positive rods 1+ Gram negative rods Resp. Culture Mixed nor mal respiratory ashkan. No Haemophilus, Streptococcus pneumoniae, beta-hemolytic Streptococcus or Staphylococcus aureus isolated. 78-Thk-351599:00 Culture, Sputum Comments: [address] [place], [address] CUSP See Note (Normal) Comments: Gram StainAcceptable Specimen? Yes (<25 Epithelial cells per/lpf) Gram Stain 1+ White Blood Cells Rare Epithelial cells 3+ Gram positive cocci Resp. CultureMixed normal respiratory ashkan. No Haemophilus, Streptococcus pneumoniae, beta-hemolytic Streptococcus or Staphylococcus aureus isolated. 16-Onz-031274:44 TESTOSTERONE FREE (19900) Comments: PATIENT NOT FASTINGPERFORMED BY: [address] [id number] BY: [address] [id number] Free Testosterone(Direct) 2.6 pg/mL (Abnormal) Range: 6.6-18.1 03-Ogg-100698:44 HEPATITIS C ANTIBODY Comments: PATIENT NOT FASTINGPERFORMED BY: [address] [id number] BY: [address] [id number] (315[address]) Hep C Virus Ab 0.1 {s/co_ratio} (Normal) Range: 0.0-0.9 Comments: Negative: < 0.8 Indeterminate: 0.8 - 0.9 Positive: > 0.9 . The CDC recommends that a positive HCV antibody result be followed up with a HCV Nucleic Acid Amplification test (061803). 39-Mhp-807343:44 CBC W/AUTO DIFF WBC Comments: PATIENT NOT FASTINGPERFORMED BY: [address] [id number] BY: [address] [id number] (43485) Immature Grans (Abs) 0.0 {x10E3/uL} (Normal) Range: [...] 4.14-5.80 WBC 6.1 {x10E3/uL} (Normal) Range: 3.4-10.8 00-Mzj-701087:44 METABOLIC PANEL, Comments: PATIENT NOT FASTINGPERFORMED BY: CB [facility] Bprtzq6074 [facility] [id number] BY: BN [facility] [address] [id number] COMPREHENSIVE (56721) ALT (SGPT) 17 [iU]/L (Normal) Range: 0-44 [...] 8-27 Glucose 102 mg/dL (Abnormal) Range: 65-99 19-Vqb-873461:15 HgA1C , Office (79670) HgA1C , Office 5.7 % (Normal) Range: 4.6 - 7.1 28-Voy-838855:30 CBC W/Diff, Automated Comments: [facility] [address] [place], [place], [address] Absolute Lymph 1.76 {X10_3/ul} (Normal) Range: 0.83-4.51 [...] 4.6-6.2 WBC 6.7 K/mm3 (Normal) Range: 4.4-11.0 14-Jyi-541442:30 Comprehensive Metabolic Profil Comments: [facility] [address]lb[address] [place], [place], [address] GAP 9 (Normal) Range: 5-15 CO2 25.0 [...] 7-18 GLU 78 mg/dL (Normal) Range: 70-110 53-Asm-330303:30 Culture, Urine Comments: [facility] [address] [place], [address] CUUR See Note (Normal) Comments: Urine CultureCulture exhibits no growth. 71-Udp-522478:30 Lipid Profile Comments: [facility] Xsponexpsf[address] [place], [address] VLDL 19 mg/dL (Normal) Range: 5-40 LDL [...] 200-240 mg/dL Borderline >240 mg/dL High Risk 07-Ddn-040272:10 Rapid Strep Test, Office (97524) Comments: Negative Rapid Strep Test, Office Negative (Normal) 54-Gmo-46027:51 THROAT CULTURE (86034) Comments: PATIENT NOT FASTINGPERFORMED BY: [facility] [id number] Information: SRC: Result 1 RRF (Normal) Comments: Routine respiratory ashkan Upper Respiratory Culture Final report (Normal) 00-Yuy-655254:02 Rapid Flu (75318 x 2) Comments: Negative Influenza A Ag Negative (Normal) 18-Fyb-783205:45 URINE WARREN CULTURE-IDENTIFICATN Comments: PERFORMED BY: [employer] [facility] [id number] Information: SRC: (62289) Result 1 NG36 (Normal) Comments: No growth in 36 - 48 hours. Urine Culture,Comprehensive Final report (Normal) 24-Etq-248863:02 Urinalysis, Office (35280) UA - LEUKOCYTE ESTERASE Negative (Normal) UA - NITRITE Negative (Normal) URINE UROBILINGN MASSIEL TIMED Normal mg/dL (Normal) UA - PROTEIN Negative mg/dL (Normal) UA - PH 7 (Normal) UA - BLOOD Negative (Normal) UA - SPECIFIC GRAVITY 1.020 (Normal) UA - KETONES Negative mg/dL (Normal) UA - BILIRUBIN Negative (Normal) UA - GLUCOSE Negative (Normal) 54-Lbo-098884:22 CBC W/Diff, Automated Comments: [facility] [address] [place], [place], [address] Absolute Lymph 1.50 {X10_3/ul} (Normal) Range: 0.83-4.51 [...] 4.6-6.2 WBC 6.2 K/mm3 (Normal) Range: 4.4-11.0 42-Lfq-933071:22 Comprehensive Metabolic Profil Comments: [facility] Jmhgpdampg6036 [facility] [address] [place], [place], [address] ; will review opn 11/10 GAP 7 [...] 7-18 GLU 104 mg/dL (Normal) Range: 70-110 56-Wsh-117495:22 Hemoglobin A1c Comments: [facility] Ayikdjmlfs0333 [facility] [place], [address] HGB A1C 5.6 % (Normal) Range: 4.2-6.3 73-Sya-583241:22 Immunofixation, Serum Comments: [facility] (refer to report for specific site)refer to report for address and phone number PAULA RESULT,S Comment (Normal) Comments: No monoclonality detected. IMMUNOGL M 53 mg/dL (Normal) Range: 20-172 IMMUNO A 169 mg/dL (Normal) Range: 61-437 IMMUNO G 692 mg/dL (Abnormal) Range: 700-1600 55-Eso-001618:22 [place] [employer] Chains Comments: [facility] (refer to report for specific site)refer to report for address and phone number KAPPA/LAMBDA % 1.17 (Normal) Range: 0.26-1.65 Comments: Performed at: [address] [id number] Director: Hugo Britt PhD, Phone: [phone] FR LAMBDA LT CH 12.3 mg/L (Normal) Range: 5.7-26.3 FR KAPPA LT CHN 14.4 mg/L (Normal) Range: 3.3-19.4 16-Fkk-236581:22 Lipid Profile Comments: [facility] M[address]jj[address]jh[address] [place], [address] VLDL 20 mg/dL (Normal) Range: [...] 200-240 mg/dL Borderline >240 mg/dL High Risk 73-Nwx-663259:22 Microalb:Creat Ratio,Random UR Comments: [facility] T[address]bsvghwx[address] [place], [place], [address] ; will review on 11/10 MALB:CREAT 5.6 {mg/g_CRE} (Normal) MICROALBUMIN,UR 7.2 mg/L (Normal) UR CREAT 128.00 mg/dL (Normal) 36-Sxw-893430:22 PSA,Total - Annual Screen Comments: [facility] Fpmzgvfbkr74[address] [place], [address] PSA,TOT SCREEN 0.63 ng/mL (Normal) Range: 0.00-4.00 Comments: This test was performed using the TPSA assay method for coUrbanize chemistry system. Values obtained with differentassay methods cannot be used interchangably.When changing PSA assays in the course of monitoring apatient, additional sequential testing should be carriedout to confirm baseline values. 55-Ndl-526148:07 CBC W/Diff, Automated Comments: [facility] Iqrlfscdpy18[address] [place], [address] Absolute Lymph 1.42 {X10_3/ul} (Normal) Range: 0.83-4.51 [...] Range: 4.4-11.0 :07 Comprehensive Metabolic Profil Comments: [facility] Sk[address]yssgno[address] [place], [place], [address] GAP 8 (Normal) Range: 5-15 CO2 27.0 [...] 7-18 GLU 104 mg/dL (Normal) Range: 70-110 61-Mpj-655317:07 Hemoglobin A1c Comments: [facility] Zrscahzifo[address] [place], [place], [address] HGB A1C 5.6 % (Normal) Range: 4.2-6.3 27-Rob-561230:07 PAULA + Protein Elect, Serum Comments: Is Patient F[facility]? [facility] (refer to report for specific site)refer to report for address and phone number NOTE: Comment (Normal) Comments: Protein electrophoresis scan will follow via computer,mail, or card lacer jacquard delivery.Performed at: [address] [id number] Director: Hugo Britt PhD, Phone: [phone] PAULA RESULT,S Comment (Normal) Comments: No monoclonality detected. A/G RATIO 1.2 (Normal) Range: 0.7-1.7 GLOBULIN, TOTAL 3.0 g/dL (Normal) Range: 2.2-3.9 M-SPIKE g/dL (Normal) Comments: Not Observed GAMMA GLOBULIN 0.7 g/dL (Normal) Range: 0.4-1.8 BETA GLOBULIN 1.1 g/dL (Normal) Range: 0.7-1.3 YLGLE-6-WQUY 0.8 g/dL (Normal) Range: 0.4-1.0 HYFID-0-KBAK 0.3 g/dL (Normal) Range: 0.0-0.4 ALBUMIN 3.3 g/dL (Normal) Range: 2.9-4.4 IMMUNOGL M 53 mg/dL (Normal) Range: 20-172 IMMUNO A 177 mg/dL (Normal) Range: 61-437 IMMUNO G 761 mg/dL (Normal) Range: 700-1600 PROTEIN,TOTAL 6.3 g/dL (Normal) Range: 6.0-8.5 72-Eug-622606:07 Lipid Profile Comments: [facility] Nabq[address]qkeps[address] [facility]. [place], [place], [address] VLDL 21 mg/dL (Normal) Range: 5-40 LDL [...] 200-240 mg/dL Borderline >240 mg/dL High Risk 06-Ign-640168:01 CBC W/Diff, Automated Comments: [facility] Tvnrjtksyl[address] [place], [address] Absolute Lymph 1.62 {X10_3/ul} (Normal) [...] 4.6-6.2 WBC 7.6 K/mm3 (Normal) Range: 4.4-11.0 81-Zmx-104239:01 Comprehensive Metabolic Profil Comments: [facility] Iygapsvndk1417 [address] [place], [place], [address] ; has apt today GAP 7 (Normal) [...] 7-18 GLU 96 mg/dL (Normal) Range: 70-110 85-Kzy-763090:01 Lipid Profile Comments: [facility] H[address]smnwjz13[address] [place], [place], [address] VLDL 11 mg/dL (Normal) Range: 5-40 LDL [...] 200-240 mg/dL Borderline >240 mg/dL High Risk 17-Hwm-332235:01 Lipoprotein A 369 nmol/L (Abnormal) Comments: [facility] [...] genetic factors on Lp(a) across ethnicities.Performed at: [facility] [address] [id number] Director: Hugo Britt PhD, Phone: [phone] 73-Bby-466516:56 HgA1C , Office (28662) HgA1C , Office 5.6 % (Normal) Range: 4.6 - 7.1 4-Xlg-867193:19 ANCA Panel Comments: PATIENT NOT FASTINGPERFORMED BY: [facility] [address] [facility] [id number] BY: [address] [id number] Atypical pANCA <1:20 {titer} Comments: The atypical pANCA pattern has been observed in a significantpercentage of patients with ulcerative colitis, primary sclerosingcholangitis and autoimmune hepatitis. (Normal) Perinuclear (P-ANCA) <1:20 {titer} Comments: The presence of positive fluorescence exhibiting P-ANCA or C-ANCApatterns alone is not specific for the diagnosis of Jlui'sGranulomatosis (WG) or microscopic polyangiitis. Decisions about treatment sh (Normal) ould not be based solely on ANCA IFA results. TheInternational ANCA Group Consensus recommends follow up testing ofpositive sera with both IL-3 and MPO-ANCA enzyme immunoassays. Asmany as 5% serum samp les are positive only by EIA.Ref. AM J Clin Pathol 1999;111:507-513. Cytoplasmic (C-ANCA) <1:20 {titer} (Normal) Antiproteinase 3 (IL-3) Abs <3.5 U/mL (Normal) Range: 0.0-3.5 Antimyeloperoxidase (MPO) Abs <9.0 U/mL (Normal) Range: 0.0-9.0 :19 Antinuclear Antibodies Comments: PATIENT NOT FASTINGPERFORMED BY: [address] [id number] BY: [facility]6370 [facility] [id number] Direct JOHN Direct Negative (Normal) 4-Mrv-731222:1 C-Reactive Protein, 2.1 mg/L (Normal) Comments: PATIENT NOT FASTINGPERFORMED BY: [address] [id number] BY: [place] 4647070 [facility] [id number] Quant Range: 0.0-4.9 :19 Rheumatoid Arthritis Comments: PATIENT NOT FASTINGPERFORMED BY: [address] [id number] BY: [facility]6370 [facility] [id number] Factor RA Latex Turbid. 7.8 {IU/mL} Range: 0.0-13.9 (Normal) Sedimentation 8 mm/h (Normal) Comments: PATIENT NOT FASTINGPERFORMED BY: [address] [id number] BY: [place] 4647070 [facility] [id number] :19 Rate-Westergren Range: 0-30 Thyroid Peroxidase (TPO) 8 {IU/mL} (Normal) Comments: PATIENT NOT FASTINGPERFORMED BY: [address] [id number] BY: [place] 4647070 [facility] [id number] :19 Ab Range: 0-34 :19 Thyroxine (T4) Free, Comments: PATIENT NOT FASTINGPERFORMED BY: BN [facility] [id number] BY: [facility]6370 [facility] [id number] Direct, S T4,Free(Direct) 1.11 ng/dL Range: 0.82-1.77 (Normal) Triiodothyronine,Free,Seru 2.5 pg/mL (Normal) Comments: PATIENT NOT FASTINGPERFORMED BY: [address] [id number] BY: [facility]6370 [facility] [id number] 2:19 m Range: 2.0-4.4 TSH 3.450 {uIU/mL} Comments: PATIENT NOT FASTINGPERFORMED BY: [address] [id number] BY: [facility]6370 [facility] [id number] 2:19 (Normal) Range: 0.450-4.500 7-Tzu-127856:30 Pathology Report Comments: PERFORMED BY: [facility] Cyto Saitd33777 [facility] [id number] Information: [id number] See MATER Comments: Material submitted: .FOREHEAD SHAVE [...] IN CASSETTE(S) A./CORCOR/CORPa thologist provided ICD-10:D48.5, L90.9CPT .215510 :22 TESTOSTERONE FREE (37083) Comments: PATIENT WAS FASTINGPERFORMED BY: iWelcome70 [facility] [id number] BY: [employer] [id number] Free Testosterone(Direct) 2.5 pg/mL (Abnormal) Range: 6.6-18.1 91-Mfo-91219:22 VITAMIN B-12 (CYANOCOBALAMIN) Comments: PATIENT WAS FASTINGPERFORMED BY: iWelcome70 [facility] [id number] BY: Pay[employer] [id number] (58884) Vitamin B12 638 pg/mL (Normal) Range: 211-946 47-Ysb-24531:22 CBC W/AUTO DIFF WBC Comments: PATIENT WAS FASTINGPERFORMED BY: [employer] LabDataGravityBristol-My[facility] Squ[facility] Children's HospitalTmgkbb2453 [facility] [id number] BY: [facility]DataGravity[address] [id number] Inf ormation: NURSE DRAW (51924) Immature Grans (Abs) 0.0 {x10E3/uL} (Normal) Range: [...] 4.14-5.80 WBC 7.3 {x10E3/uL} (Normal) Range: 3.4-10.8 73-Ogy-43100:22 METABOLIC PANEL, Comments: PATIENT WAS FASTINGPERFORMED BY: LabDataGravityBristol-My[facility] Squ[facility] Children's HospitalGshyzi1320 [facility] [id number] BY: [facility] [id number] COMPREHENSIVE (75314) ALT (SGPT) 12 [iU]/L (Normal) Range: 0-44 [...] Glucose, Serum 100 mg/dL (Abnormal) Range: 65-99 29-Nnr-19166:52 CBC W/Diff, Automated Comments: [facility] Rebtfbxmoq72[address] [place], [place], [address] Absolute Lymph 1.73 {X10_3/ul} (Normal) Range: 0.83-4.51 [...] 4.6-6.2 WBC 6.0 K/mm3 (Normal) Range: 4.4-11.0 60-Mnd-05278:52 Comprehensive Metabolic Profil Comments: [facility] Jvnkrjrjuh5873 [place], [address] GAP 6 (Normal) Range: 5-15 CO2 26.0 [...] (Normal) Range: 70-110 :52 Hemoglobin A1c Comments: [facility] [address] [place], [place], [address] HGB A1C 5.6 % (Normal) Range: 4.2-6.3 :52 Lipid Profile Comments: [facility] Balcqtraeu[address] [place], [address] VLDL 21 mg/dL (Normal) Range: [...] High Risk :52 Microalb:Creat Ratio,Random UR Comments: [facility] [address] [place], [place], [address] MALB:CREAT 9.1 {mg/g_CRE} (Normal) MICROALBUMIN,UR 9.0 mg/L (Normal) UR CREAT 99.50 mg/dL (Normal) :52 PSA,Total - Annual Screen Comments: [facility] Dduqdrnlpj20[address] [place], [place], [address] PSA,TOT SCREEN 0.51 ng/mL (Normal) Range: 0.00-4.00 Comments: This test was performed using the TPSA assay method for coUrbanize chemistry system. Values obtained with differentassay methods cannot be used interchangably.When changing PSA assays in the course of monitoring apatient, additional sequential testing should be carriedout to confirm baseline values. COLON BIOPSY (CHOOSE See Note (Normal) Comments: [facility] Ieacisroij[address] [place], [place], [address] :45 SITE) Comments: Patient: YUMIKO LANDRUM : 1950 (64/M) Acct Num: [id number] Phys: Hugo Bullock Unit Num: [id number] Loc: LABSPEC Specimen: [id number] Received: 09/11/151646 Spec Type: C OLON BX [...] in one cassette. / Heraclio 09/11 TC:1 CPT:00889 x2 HEADER OPERATION: Colonoscopy with biopsy PRE-OP DIAGNOSIS: Screening/polyp TISSUE SUBMITTED: A - Polyp cecum, R/O adenoma, B - Polyp sigmoid, R/O adenoma MICROSCOP IC DESCRIPTION Slides are reviewed. MICROSCOPIC DIAGNOSIS A. Polyp cecum, biopsy: Fragments of tubular adenoma. B. Polyp sigmoid, biopsy: Fragments of tubular adenoma. IRON:momo 09/15/15 Signed Pamella Son 09/15/15 <signature on file> :37 CBC W/Diff, Automated Comments: [facility] Qozlggvlie[address] [place], [address] ; noon-emergent till apt Absolute [...] 4.6-6.2 WBC 6.5 K/mm3 (Normal) Range: 4.4-11.0 16-Qek-352865:37 Comprehensive Metabolic Profil Comments: [facility] Aapgblwraa82[address] [place], [place], [address] GAP 6 (Normal) Range: 5-15 CO2 27.0 [...] <126 mg/dLsuggests IMPAIRED HOMEOSTASIS per A.D.A. criteria. 91-Oec-436540:37 Hemoglobin A1c Comments: [facility] Qmzeazjqui0707 [place], [address] HGB A1C 5.6 % (Normal) Range: 4.2-6.3 95-Gkl-274438:37 Lipid Profile Comments: [facility] Lcfdnxyehr6426 [place], [address] VLDL 17 mg/dL (Normal) Range: [...] 200-240 mg/dL Borderline >240 mg/dL High Risk 4-Iah-172956:12 Factor II, DNA Analysis Comments: [facility] (refer to report for specific site)refer to report for address and phone number COMMENT Comment (Normal) Comments: Genetic Counselors are available for health care providersto discuss results at [phone] ([phone]).Methodology:DNA analysis of the Factor II gene was performed by PCRamplification followed by restric tion analysis. Thediagnostic sensitivity is >99% for both. All the tests mustbe combined with clinical information for the most accurateinterpretation. Molecular-based testing is highly accurate,but as in any laboratory test, diagnostic errors may occur.Poort SR, et al. Blood. 1996; 88:4511-2542.Diallo EA. Circulation. 2004; 110:e15-e18.Bobby I, et al. Arterioscler Thromb Vasc Biol. 1999;19:700 -703.Lance Shea, Chente Cooper, Shakeel Delgado, Xiomara Maharaj, Matilde Benjamin, PhDPerformed at: TG - [facility] RRA[address]45 [place], [place] [id number] villa: Vilma Butterfield MD, Phone: [phone] FACTOR II,DNA Comment (Normal) Comments: NEGATIVENo mutation identified.Comment:A point mutation ([id number]) in the factor II (prothrombin)gene is the [...] individual mutations. This assaydetects only the prothrombin G77585D mutation and doesnot measure genetic abnormalities elsewhere i n thegenome. Other thrombotic risk factors may be pursuedthrough systematic clinical laboratory analysis. Thesefactors include the R506Q ([place]) mutation in the Factor Vgene, plasma homocysteine levels , as well as testing fordeficiencies of antithrombin III, protein C and protein S. 28-Spp-63862:42 Miscellaneous Comments: Comments: [id number],PLASMA,BLUETest(s) Ordered: [id number],PLASMA,[facility] Osrwmtjcio[address] [place], [address] Lab Procedure MISC Comments: TEST RESULT UNITS [...] 0.0-20.0 - Time (Normal) Comments: Performed at: [facility] LabCo[address] [id number] Director: Joseph Velez MD, Phone: [phone] F e b - 2 0 1 6 9 : 4 2 :34 CBC W/Diff, Automated Comments: [facility] [address] [place], [place], [phone] Absolute Lymph 1.34 {X10_3/ul} (Normal) Range: 0.83-4.51 [...] (Normal) Range: 4.4-11.0 :34 Comprehensive Comments: Comments: [id number],NIIDERICK,[facility] [address] [place], [address] ; apt today Metabolic Profil GAP 8 [...] for health careproviders to discuss results at [phone] (8929).Methodology:DNA analysis of the Factor V gene was [...] Beal, PhDBette lugo, PhDKelly Benjamin, PhDPerformed at: [address] [id number] Director: Joseph Velez MD, Phone: [phone] at: [facility] NNE[address] [place], [place] [id number] Director: Vilma Butterfield MD, Phone: [phone] FACTOR V LEIDEN Comment (Normal) Comments: Result: [...] in the workup for venous thrombosis include [id number] mutation in the factor II (prothrombin) gene,protein S and C deficiency, and antithrombin deficiencies.Anticardiolipin antibody and lupus anticoagu lant analysismay be appropriate for certain patients, as well ashomocysteine levels.Contact your local [facility] for information on how to orderadditional testing if desired. 51-Lez-53588:34 Hemoglobin A1c Comments: [facility] [address] [place], [place], [address] HGB A1C 5.6 % (Normal) Range: 4.2-6.3 :34 Lipid Profile Comments: Comments: [id number],[facility] [address] [place], [address] VLDL 17 mg/dL (Normal) Range: [...] High Risk :34 Miscellaneous Lab Comments: Comments: [id number],[facility] CENTERTest(s) Ordered: [id number] [facility], [facility] Dksaghhxcl[address] [place], [place], [id number] Procedure MISC Comments: TEST RESULT UNITS REFERENCE [...] anticoagulant is not de tected. aCL and D9EP1vfptkvinng are normal.ANTIPHOSPHOLIPID SYNDROME ASSESSMENT SUMMARY-No evidence of a lupus anticoagulant, B2GP1 or aCLantibodies. As antibody titers may fluctuate with time,repeat te sting may be indicated if antiphospholipid syndromeis suspected.ANTIPHOSPHOLIPID SYNDROME ASSESSMENT DEFINITIONS-aCL- anticardiolipin (antibodies to cardiolipin); U8QG6-djsiwvogha to Beta-2 Glycoprotein 1; LA- lupus anticoagulant(which is identified with the dRVVT and/or hexagonalphospholipid neutralization assays); aPL- antibodies toprotein/phospholipid complexes such as LA, aCL, and P1BH2stwgqyjpeu; APS- antiphospholipid syndrome; DTI-directthrombin inhibitors.-BACKUP ADMINISTRATOR:For questions regarding panel interpretation, please contactHalle Arrington [...] Mathews et al. J Thromb Haemost. 2009; 7(10):1638-4842.(2) Tyrone S et al. J Thromb H aemost. 2006;4(2):295-306.(3) Keith DA et al. Blood. 2007;110(9): 6588-6026. [facility] AT [facility]. ORIGINAL REPORT ON FILE IN [...] Range: 58-150 :54 CBC W/Diff, Automated Comments: [facility] [address] [place], [address] Absolute Lymph 1.61 {X10_3/ul} (Normal) [...] 4.6-6.2 WBC 7.1 K/mm3 (Normal) Range: 4.4-11.0 43-Cfw-133817:54 Comprehensive Metabolic Profil Comments: [facility] Bjeq[address]uxvx[address] [place], [address] GAP 7 (Normal) Range: 5-15 [...] (Normal) Range: 70-110 :54 Lipid Profile Comments: [facility] Ldyxrurqcl3215 [facility] [place], [address] ; apt today VLDL 19 [...] :55 Comprehensive Metabolic Profil Comments: Test performed at:[facility] [address] [place] [address] GAP 7 (Normal) Range: 5-15 [...] Comments: Please note revised CREATININE reference range lucswgjku10/22/2015. BUN 15 mg/dL (Normal) Range: 7-18 GLU 103 mg/dL (Normal) Range: 70-110 21-Sep-20148:55 Hemoglobin A1c Comments: Test performed at:[facility] [address] [place], [place] [address] HGB A1C 6.0 % (Normal) Range: 4.2-6.3 21-Sep-20148:55 Lipid Profile Comments: Test performed at:[facility] [address] [place] [address] VLDL 17 mg/dL (Normal) Range: [...] 200-240 mg/dL Borderline >240 mg/dL High Risk 14-Pgr-400919:49 Anti-dsDNA Ab Comments: ADDED PER VERBAL ORDER - FAXED ORDER TO FOLLOWSpecimen Comment: A duplicate report has been generated due to demographicSpecimen Comment: updates.Test performed at:[facility] Laboratory1 [address] [place] [address] dsDNA AB 12 {IU/mL} (Abnormal) Range: 0-9 Comments: Negative <5 Equivocal 5 - 9 Positive >9; ADDENDA: non-emergent because has apt today to discuss. 73-Hdj-369716:49 ANTINUCLEAR ANTIBODIES DIRECT Comments: Test performed at:[facility] Tbijasvpts[address] [facility] [place] [address] JOHN-DIRECT Positive (Abnormal) Comments: Performed at: [facility] [address] [id number] Director: Reno Yanes PhD, Phone: [phone] 80-Qpe-916344:49 CBC W/Diff, Automated Comments: Test performed at:[facility] [address] [place] [address] Absolute Lymph 1.22 {X10_3/ul} (Normal) [...] 4.6-6.2 WBC 4.9 K/mm3 (Normal) Range: 4.4-11.0 48-Bio-748386:49 Comprehensive Metabolic Profil Comments: Test performed at:[facility] [address] [place] [address] GAP 6 (Normal) Range: 5-15 CO2 27.0 [...] 7-18 GLU 104 mg/dL (Normal) Range: 70-110 36-Dup-599734:49 CRP Comments: Test performed at:[place] [address] C-REACTIVE PROT < 2.90 mg/L (Normal) Range: 0.0-3.0 Comments: C-Reactive Protein (CRP) provides useful information for thediagnosis, therapy and monitoring of inflammatory processesand associated diseases. For the evaluation of Relative Riskfor Cardiovascular Dise ase, a High Sensitivity CRP (HSCRP)should be ordered. :49 Culture, Urine Comments: Test performed at:[place] [address] CUUR See Note (Normal) Comments: Urine CultureCulture exhibits no growth.; ADDENDA: Pt has apt today, will discuss then :49 Erythrocyte Sed Rate Comments: Test performed at:[facility] [address] [place] [address] SED RATE 21 mm/h (Abnormal) Range: 0-20 :49 Hemoglobin A1c Comments: Test performed at:[address] [address] HGB A1C 5.8 % (Normal) Range: 4.2-6.3 :49 Lipid Profile Comments: Test performed at:[address] [address] VLDL 8 mg/dL (Normal) Range: 5-40 LDL [...] :49 Microalb:Creat Ratio,Random UR Comments: Test performed at:[facility] [address] [facility] [place] [address] MALB:CREAT 12.2 {mg/g_CRE} (Normal) MICROALBUMIN,UR 17.2 mg/L (Normal) UR CREAT 140.0 mg/dL (Normal) :49 PSA,Total - Annual Screen Comments: Test performed at:[facility] [address] [place] [address] PSA,TOT SCREEN 0.47 ng/mL (Normal) Range: 0.00-4.00 Comments: This test was performed using the TPSA assay method for co[employer]banize chemistry system. Values obtained with differentassay methods cannot be used interchangably.When changing PSA assays in the course of monitoring apatient, additional sequential testing should be carriedout to confirm baseline values. :49 Thyroid Stim Hormone (TSH) Comments: Test performed at:[facility] [address] [place] [address] TSH 1.60 {uIU/mL} (Normal) Range: 0.358-3.74 :49 Urinalysis, Complete Comments: How was Urine Obtained? Urine, RandomTest performed at:[facility] [address] [place] [address] MUCUS, URINE 2+ {/hpf} (Normal) [...] (Normal) CLARITY Clear (Normal) COLOR Yellow (Normal) 02-Ttp-261702:49 Urinalysis, Complete Comments: How was Urine Obtained? Urine, RandomTest performed at:[facility] [address] [facility] [place] [address] MUCUS, URINE 0 SEEN {/hpf} [...] (Normal) CLARITY Clear (Normal) COLOR Yellow (Normal) 25-Nud-660491:07 Comprehensive Metabolic Profil Comments: Test performed at:[facility] [address]fe[address] [facility] [place] [address] GAP 6 (Normal) Range: 5-15 CO2 28.0 [...] 7-18 GLU 108 mg/dL (Normal) Range: 70-110 19-Tmv-020189:07 CPK Total, Creatine Kinase Comments: Test performed at:[facility] [address] [place] [address] CPK TOTAL 91 U/L (Normal) Range: 39-308 79-Lvz-127093:56 Rapid Flu (62062 x 2) Influenza A Ag negative (Normal) 3-Ggw-769964:28 URINE WARREN CULTURE-MASSIEL COL Comments: PATIENT NOT FASTINGPERFORMED BY: [facility]CoB[facility] HospitalQwbyrh4589 [facility] [id number] Information: SRC:UR N68690 COUNT (38077) Result 1 ECV (Abnormal) Comments: Escherichia coli, [...] R Urine Final report Culture,Comprehensi (Abnormal) ve 9-Lhu-158082:58 Urinalysis, Office (53976) UA - LEUKOCYTE ESTERASE Small (Normal) UA - NITRITE Negative (Normal) URINE UROBILINGN MASSIEL TIMED 2 mg/dL (Normal) UA - PROTEIN 30 mg/dL (Normal) UA - PH 6.0 (Normal) Comments: 5.5 UA - BLOOD Hemolyzed Small (Normal) UA - SPECIFIC GRAVITY 1.030 (Abnormal) UA - KETONES Negative mg/dL (Normal) UA - BILIRUBIN Small (Normal) UA - GLUCOSE Negative (Normal) 8-Kib-699386:41 URINE WARREN CULTURE-MASSIEL COL Comments: PATIENT NOT FASTINGPERFORMED BY: [facility] [id number] Information: SRC: URINE COUNT (09346) Result 1 ECV (Abnormal) Comments: Escherichia coli, [...] R Urine Final report Culture,Comprehensi (Abnormal) ve 2-Qpf-602992:27 Urinalysis, Office (40011) UA - LEUKOCYTE ESTERASE Trace (Normal) UA - NITRITE Negative (Normal) URINE UROBILINGN MASSIEL TIMED 2 mg/dL (Normal) UA - PROTEIN Negative mg/dL (Normal) UA - PH 6.0 (Normal) UA - BLOOD Negative (Normal) UA - SPECIFIC GRAVITY 1.010 (Normal) UA - KETONES Negative mg/dL (Normal) UA - BILIRUBIN Negative (Normal) UA - GLUCOSE Negative (Normal) 2-Nnn-219380:30 HgA1C , Office (43143) HgA1C , Office 5.7 % (Normal) Range: 4.6 - 7.1 0-Oko-130956:10 URINE WARREN CULTURE-MASSIEL COL Comments: PATIENT NOT FASTINGPERFORMED BY: [employer] [facility] [id number] Information: SRC:UR D80418 COUNT (05659) Result 1 NG36 (Normal) Comments: No growth [...] CHOL 155 mg/dL (Normal) Comments: <200 mg/dL Lelfjuefg179-715 mg/dL Borderline>240 mg/dL High Risk TRIG 121 [...] (Normal) UCLAR Clear (Normal) UCOL Yellow (Normal) 51-Elc-199038:20 CUUR URC See Note (Normal) Comments: ESBL+ [...] >=320 R (NF) indicates non-formulary drug at [facility]. Approval by Infectious DiseaseSpecialist required before non-formulary drugs may beordered and/or dispensed. 58-Idg-409726:20 UA Comments: How was Urine Obtained? CLEAN [...] Antibody Present - Antibody Absen tPerformed at: [facility] LabCo[address] [id number] Director: Melquiades Hector MD, Phone: [phone] EBEAG <9.0 U/mL (Normal) Range: 0.0-8.9 Comments: [...] - 250 nmol/L)Toxicity >100 ng/mL (>250 nmol/L) 5-Cti-307196:36 BMP Comments: Serial Specimen #1, #2 or [...] <0.05 NEGATIVE0.06 - 0.59 AT RISK OF PA> OR = 0.60 SUGGEST PA :47 HgA1C , Office (43350) HgA1C , Office 6.3 % (Normal) Range: [...] CHOL 147 mg/dL (Normal) Comments: <200 mg/dL Gmdzeqoow363-469 mg/dL Borderline>240 mg/dL High Risk 2-Hfq-897745:55 Rapid Flu (77124 x 2) Comments: neg Influenza A Ag negative (Normal) 8-Ilv-651294:02 FECAL OCCULT- Tubes sent home (90536) FECAL OCCULT HGB ASSAY, QUAL, 1-3 negative (Normal) [facility] :39 B12 510 pg/mL (Normal) Range: 211-911 [...] {IU/mL} (Normal) Range: 0-100 Comments: Performed at: [facility] Lab[address] Director: Melquiades Hector MD, Phone: [phone] IMM 55 mg/dL (Normal) Range: 40-230 DEBBY 182 mg/dL (Normal) Range: 91-414 IMG 788 mg/dL (Normal) Range: 700-1600 :39 LDH 190 U/L (Normal) Comments: Serial Specimen #1, #2 or #3? 1Is Patient Taking Vitamins or Folic Acid Supplements? N Range: 84-246 :39 PROEL Comments: Is Patient Fasting? Y [id number] Comment (Normal) Comments: Protein electrophoresis scan will follow via computer,mail, or card lacer jacquard delivery. tPROELAG 1.6 (Normal) Range: 0.7-2.0 tPROELIN [...] Supplements? N Range: 250-450 :56 CULTURE, SPUTUM (74001) Comments: PATIENT NOT FASTINGPERFORMED BY: [facility]Co[facility]'s HospitalKwmwpd6987 [facility] [id number] Information: SRC:[facility] [id number] Result 1 RRF (Normal) Comments: Routine respiratory ashkan Lower Respiratory Culture Final report (Normal) :32 HgA1C , Office (02451) HgA1C , Office 5.9 % (Normal) Range: 4.6 - 7.1 :32 Blood Glucose , Office (21412) Blood Glucose , Office 90 (Normal) :51 [...] 4.6-6.2 WBC 7.2 {k/mm3} (Normal) Range: 4.4-11.0 63-Grc-628047:51 CMP GAP 9 (Normal) Range: 5-15 CO2 [...] CHOL 149 mg/dL (Normal) Comments: <200 mg/dL Jzqjusipj170-403 mg/dL Borderline>240 mg/dL High Risk :51 PSA 0.51 ng/mL (Normal) Range: 0.00-4.00 Comments: This test was performed using the TPSA assay method for theKidblog chemistry system. Values obtained with differentassay methods cannot be used interchangably.When changing PSA assays in the course of monitoring apatient, additional sequential testing should be carriedout to confirm baseline values. :59 MISC (Normal) Comments: TEST RESULT LIMITSAntinuclear Antibodies, IFA NegativeNegative <1:80Borderline 1:80Positive >1:80 [facility] ORIGINAL REPORT ONFILE IN LAB CONTAINS ADDITIONAL [...] CHOL 154 mg/dL (Normal) Comments: <200 mg/dL Btzepyfpw631-737 mg/dL Borderline>240 mg/dL High Risk HDL 64 [...] CUF See Note Comments: TESTING PERFORMED AT [facility]. ORIGINAL REPORT ONFILE IN LAB CONTAINS ADDITIONAL TEST SITE INFORMATION. (Normal) CULTURE, FUNGUSNO YEAST OR MOLD ISOLATED AFTER 4 WEEKS. 11-Xqn-977527:11 CUSP RESPC See Note (Normal) Comments: No [...] YEAST OR MOLD ISOLATED AFTER 4 WEEKS. 24-Gnd-309090:21 AFBCS tAFBC See Note Comments: TESTING PERFORMED AT [facility]. ORIGINAL REPORT ONFILE IN LAB CONTAINS ADDITIONAL TEST SITE INFORMATION. (Normal) CULTURE, ACID FAST FINAL CULTURE REPORT TO FOLLOW IN 6 WEEKS. EverF See Note Comments: TESTING PERFORMED AT [facility]. ORIGINAL REPORT ONFILE IN LAB CONTAINS ADDITIONAL TEST SITE INFORMATION. (Normal) ACID FAST BACILLUS SMEARAcid Fast Smear from Concentrated Specimen :Negative 25-Xou-685156:21 CUFST FUNST See Note Comments: TESTING PERFORMED AT [facility]. ORIGINAL REPORT ONFILE IN LAB CONTAINS ADDITIONAL TEST SITE INFORMATION. (Normal) FUNGUS STAIN YEAST OBSERVED CUF See Note Comments: TESTING PERFORMED AT [facility]. ORIGINAL REPORT ONFILE IN LAB CONTAINS ADDITIONAL TEST SITE INFORMATION. (Normal) CULTURE, FUNGUSNO YEAST OR MOLD ISOLATED AFTER 4 WEEKS. 16 AFBSTN SEE Comments: Specimen submitted to Anatomical Pathology Department [facility]. - PATHOLOGY ay REPORT -2 (Normal) 32 2: 00 16 AFBSTN SEE Comments: PATIENT BROUGHT SPECIMEN IN ON 07/11/12. - PATHOLOGY Comments: Specimen submitted to Anatomical Pathology Department [facility]. ay REPORT -2 (Normal) 30 :0 0 12 AFBSTN SEE Comments: PATIENT BROUGHT SPECIMEN IN ON 07/11/12 - PATHOLOGY Comments: Specimen submitted to Anatomical Pathology Department [facility]. ay REPORT -2 (Normal) 39 :0 0 38-Wjt-115039:05 WARREN CULTURE-OTHER (59606) Comments: PATIENT NOT FASTINGPERFORMED BY: [employer] [facility] [address] [place] [id number] Information: SRC: THROAT Result 1 RRF (Normal) Comments: Routine respiratory ashkan Upper Respiratory Culture Final report (Normal) 46-Gyr-657594:23 Rapid Strep Test, Office (26344) Rapid Strep Test, Office Negative (Normal) 0-Mmd-146739:15 CBCMD RBCM NORM C+C {NORMAL} (Normal) PE [...] 4.6-6.2 WBC 8.3 K/mm3 (Normal) Range: 4.4-11.0 8-Ozg-480719:15 CMP GAP 10 (Normal) Range: 5-15 CO2 [...] 7-18 GLU 81 mg/dL (Normal) Range: 70-110 0-Stw-976106:15 LIPID VLDL 12 mg/dL (Normal) Range: 5-40 [...] Alvarado M.D.January 27, 2012 at 2:39:03 PM [id number] Signed GP/GP If you are the refe rring physician and would like to consult with theradiologist who provided this interpretation, please contact Itzel Linares at [phone]. If this radiologist is unavailable, youwill be dir ected to another radiologist to assist. If you are a patient with a question regarding this report, pleasecontactyour referring physician directly. Professional Interpretation Provided By: [employer], Phone , These documents contain legally protected [...] Schwarz D.O.January 26, 2012 at 8:55:02 PM [id number] Signed BE/B E If you are the referring physician and would like to consult with theradiologist who provided this interpretation, please contact Yogi Schwarz D.O. at [phone]. If this radiologist is unavailable, yo u will bedirected to another radiologist to assist. If you are a patient with a question regarding this report, pleasecontactyour referring physician directly. Professional Interpretation Provided By: [employer], Phone , These documents contain legally protected [...] 01/26/12 2100 Sign by: Yogi Schwarz MD 35-Dwd-088126:13 CUSP RESPC See Note (Normal) Comments: No [...] CHAINS AND CLUSTERS :56 HgA1C , Office (90794) HgA1C , Office 6.1 % (Normal) Range: 4.6 - 7.1 :56 Blood Glucose , Office (08745) Blood Glucose , Office 116 (Normal) : [...] mg/dL suggests IMPAIRED HOMEOSTASIS per A.D.A. criteria. 44-Oqh-57634:01 TSH 1.98 {uIU/mL} (Normal) Range: 0.358-3.74 23-Zok-683653:25 CMP GAP 7 (Normal) Range: 5-15 CO2 [...] 7-18 GLU 107 mg/dL (Normal) Range: 70-110 02-Xqh-428511:25 LIPID VLDL 12 mg/dL (Normal) Range: 5-40 [...] 200-240 mg/dL Borderline >240 mg/dL High Risk 51-Set-743527:25 MIACRE tMICROCREAT 6.7 {mg/g_CRE} (Normal) MIALB 5.5 mg/L (Normal) CREU 81.1 mg/dL (Normal) 67-Wff-707272:25 PSA 0.50 ng/mL (Normal) Range: 0.00-4.00 Comments: NEW TEST ASSAY METHOD JULY 12, 2011This test was performed using the TPSA assay method for theSanghviSubway chemistry system. Values obtained with differentassay methods [...] UCOL YELLOW (Normal) :44 HgA1C , Office (58781) HgA1C , Office 6.3 % (Normal) Range: 4.6 - 7.1 :44 Blood Glucose , Office (61473) Blood Glucose , Office 114 (Normal) :13 HgA1C , Office (64714) HgA1C , Office 6.2 % (Normal) Range: 4.6 - 7.1 :13 Blood Glucose , Office (44787) Blood Glucose , Office 100 (Normal) :55 HgA1C , Office (65066) HgA1C , Office 5.8 % (Normal) Range: 4.6 - 7.1 :55 Blood Glucose , Office (05774) Blood Glucose , Office 85 (Normal) :51 WARREN CULTURE-OTHER (03202) Comments: PATIENT NOT FASTINGPERFORMED BY: [facility] Gicozm2872 [facility] [id number] Information: SRC:THRT [id number] Result 1 Yeast isolated. (Normal) Comments: Heavy growthRequest for further identification must be madewithin 1 week. Upper Respiratory Culture Final report (Normal) :14 Rapid Strep Test, Office (25855) Rapid Strep Test, Office Negative (Normal) :24 [...] serialsampling is recomme nded. TESTING PERFORMED AT [address]. ORIGINAL REPORT ON FILE IN LAB CONTAINS [...] cells for the productionof interferon gamma.Performed at: [address] [id number] Director: Joseph Velez MD, Phone: [phone] QFT AG - NIL 0 {IU/mL} (Normal) [...] 7-18 GLU 100 mg/dL (Normal) Range: 70-110 12-Kdm-50894:03 COMPLETE UA MUCUS, URINE 2+ {/hpf} (Normal) [...] >240 mg/dL High Risk :03 VIT D,25 81430 38.0 ng/mL (Normal) Comments: appt 03-08-10 Range: 32.0-100.0 Comments: Effective January 11, 2011 Vitamin D, 25-Hydroxy reference intervals will be changing to 30-100. .Recent studies consider the lower li chilo of 32.0 ng/mL to be athreshold for optimal health.Mark LUDWIG. J Nutr. 2004;135(2):317-22.Performed at: [address] [id number] Director: Lakshmi Pino MD, Phone: [phone] VITAMIN B12 696 pg/mL (Normal) Range: 254-1320 Comments: There is a low frequency possibility that high titers ofintrinsic blocking antibodies may not be completely inactivated during the reaction pretreatment stepof this testing method. If test results are i n conflictwith the clinical diagnosis, patient should be testedfor the presence of intrinsic factor blocking antibodies. 69-Kjf-404238:05 Rapid Strep Test, Office (98380) Rapid Strep Test, Office Negative (Normal) :00 CULTURE, THROAT See Note (Normal) Comments: Normal throat ashkan isolated. No beta-hemolyticstreptococcus isolated. 05-Rxn-63231:00 CHEST WITHOUT CONTRAST Radiology Report See Note [...] 10/11/10 0244 Sign by: Clarke Butt MD 67-Cto-617375:58 GALLBLADDER Radiology Report See Note (Normal) Comments: PROCEDURE: ABDOMINAL ULTRASOUND - RIGHT UPPER QUADRANT REASON FOR VISIT: Male, 60 years old. Abdominal pain. TECHNIQUE: Ultrasound evaluation of the right upper quadrant [facility]per[facility] and static grayscale imaging. [...] 10/08/10 1402 Sign by: Jake Alvarado MD 94-Oez-07089:00 CULTURE, URINE URINE CULTURE See Note {CFU/mL} (Normal) Comments: COLONY COUNT <1000 ORGANISM 1: MIXED GRAM POSITIVE ORGANISMS 64-Ict-833701:19 Urinalysis, Office (90629) UA - BILIRUBIN Negative (Normal) UA - BLOOD Non Hemolyzed Trace (Normal) UA - GLUCOSE Negative (Normal) UA - KETONES Negative mg/dL (Normal) UA - LEUKOCYTE ESTERASE Negative (Normal) UA - NITRITE Negative (Normal) UA - PH 7.0 (Normal) UA - PROTEIN Negative mg/dL (Normal) UA - SPECIFIC GRAVITY 1.010 (Normal) URINE UROBILINGN MASSIEL TIMED Normal mg/dL (Normal) 03-Lkp-92577:00 ABDOMEN/PELVIS WITHOUT CONT Radiology Report See Note [...] Cosmo Mahmood MD :11 HgA1C , Office (40432) HgA1C , Office 6.2 % (Normal) Range: 4.6 - 7.1 :11 Blood Glucose , Office (12418) Blood Glucose , Office 90 (Normal) :28 [...] mg/dL High Risk :53 HgA1C , Office (74079) HgA1C , Office 6.4 % (Normal) Range: 4.6 - 7.1 :53 Blood Glucose , Office (62724) Blood Glucose , Office 108 (Normal) :39 CULTURE, URINE URINE CULTURE Culture exhibits no growth. (Normal) :54 Urinalysis, Office (47793) UA - BILIRUBIN Negative (Normal) UA - BLOOD Negative (Normal) UA - GLUCOSE Negative (Normal) UA - KETONES Negative mg/dL (Normal) UA - LEUKOCYTE ESTERASE Negative (Normal) UA - NITRITE Negative (Normal) UA - PH 7.0 (Normal) UA - PROTEIN Negative mg/dL (Normal) UA - SPECIFIC GRAVITY 1.010 (Normal) URINE UROBILINGN MASSIEL TIMED Normal mg/dL (Normal) :37 HgA1C , Office (83848) HgA1C , Office 6.1 % (Normal) Range: 4.6 - 7.1 :37 Blood Glucose , Office (22985) Blood Glucose , Office 96 (Normal) 85-Arn-330604:46 CBCD,SMEAR DIFF PLT EST SeeNote (Normal) Comments: [...] 4.6-6.2 WBC 7.5 K/mm3 (Normal) Range: 4.4-11.0 59-Gne-961455:46 COMP METABOLIC GAP 7 (Normal) Range: 5-15 [...] 7-18 GLU 105 mg/dL (Normal) Range: 70-110 69-Bwj-796320:46 LIPID VLDL 10 mg/dL (Normal) Range: 5-40 [...] mg/L (Normal) UR CREAT 166.2 mg/dL (Normal) 05-Glz-851263:46 PSA, SCREEN 0.5 ng/mL (Normal) Range: 0.0-4.0 :22 HgA1C , Office (92902) HgA1C , Office 6.1 % (Normal) Range: 4.6 - 7.1 :22 Blood Glucose , Office (88738) Blood Glucose , Office 123 (Normal) :47 HgA1C , Office (19914) HgA1C , Office 6.3 % (Normal) Range: 4.6 - 7.1 :47 Blood Glucose , Office (40797) Blood Glucose , Office 103 (Normal) :05 [...] CHOL 142 mg/dL (Normal) Comments: <200 mg/dL Lylcjpbkt732-663 mg/dL Borderline>240 mg/dL High Risk TRIG 35 mg/dL (Normal) Comments: Serum Triglycerides Reference IntervalNormal <150 mg/dLBorderline high 150 - 199 mg/dLHigh 200 - 499 mg/ dLVery High > or = 500 mg/dL :24 HgA1C , Office (35567) HgA1C , Office 6.2 % (Normal) Range: 4.6 - 7.1 :23 Blood Glucose , Office (78076) Blood Glucose , Office 96 (Normal) 50-Jfn-978536:07 GASTRIC EMPTYING STUDY Radiology Report See Note (Normal) Comments: Exam Number: [id number] GASTRIC EMPTYING STUDY A gastric emptying study was performed. The patient ingested 1 mCi pfPq30o Sulfur colloid with oatmeal. HISTORYThis is a 58-year-old male patie nt with hist ory of bloating andgastroesophageal reflux. FINDINGSAt 1 hour, there is complete emptying of the stomach of theradiopharmaceutical. This is a normal study. IMPRESSIONNormal examination. There is no e vidence of gastric retention. Reported By: WILFREDO ALVARADO :33 HgA1C , Office (35012) HgA1C , Office 5.9 % (Normal) Range: 4.6 - 7.1 :33 Blood Glucose , Office (85922) Blood Glucose , Office 111 (Normal) :08 [...] Range: 0.0-4.0 :46 Blood Glucose , Office (40066) Blood Glucose , Office 156 (Normal) :46 HgA1C , Office (33566) HgA1C , Office 5.8 % (Normal) Range: 4.6 - 7.1 :12 HgA1C , Office (80248) Comments: done HgA1C , Office 5.8 % (Normal) Range: 4.6 - 7.1 :12 Blood Glucose , Office (84802) Comments: done Blood Glucose , Office 99 [...] mg/dL (Normal) Range: 200-370 Comments: Performed At: [address] [id number] :44 Blood Glucose , Office (28859) Blood Glucose , Office 92 (Normal) :44 HgA1C , Office (42948) HgA1C , Office 5.7 % (Normal) Range: 4.6 - 7.1 :40 GLU GTT-2 HOUR 191 mg/dL (Abnormal) Comments: 2HR GTT GLU 2 HR GLU GTT-2 HOUR from 216:[id number]. Range: 70-120 :20 GLU GTT-1 HOUR 178 mg/dL (Abnormal) Comments: 2HR GTT GLU 1 HR GLU GTT-1 HOUR from 216:[id number]. Range: 120-170 :40 GLU GTT-30 min. 183 mg/dL (Abnormal) Comments: 2HR GTT GLU 1/2 HR GLU GTT-30 min. from 216:[id number]. Range: 110-170 :01 GLU GTT-FASTING 106 mg/dL (Normal) Comments: 2HR GTT FASTING GLU GTT-FASTING from 216:[id number]. Range: 70-110 Comments: GLUCOSE TOLERANCE TEST Reference [...] 47-70 WBC 8.2 K/mm3 (Normal) Range: 4.4-11.0 72-Ypy-07980:12 COMP METABOLIC A/G 1.3 {RATIO} (Normal) Range: [...] T PROT 7.0 g/dL (Normal) Range: 6.4-8.2 72-Czf-230676:12 LIPID CHOL 154 mg/dL (Normal) Comments: <200 [...] mg/dL VLDL 15 mg/dL (Normal) Range: 5-40 98-Vhl-561921:12 PSA,TOT SCREEN 0.96 ng/mL (Normal) Range: 0.00-4.00 Comments: This test was performed using the TPSA method for theDimension chemistry system.Values obtained with different assay methods cannot be usedinterchangably.When changing PSA assays in the course of monito ring apatient, additional sequential testing should be carriedout to confirm baseline values. 74-Zhi-889383:12 ROUTINE UA BILIRUBIN URINE SeeNote (Normal) Comments: [...] 0.2 EU/dl (Normal) Range: 0.2 - 1.0 35-Epf-596627:12 TSH 1.38 {uIU/mL} (Normal) Range: 0.34-4.82 90-Yau-13899:03 CHEST WITH CONTRAST Radiology Report See Note (Normal) Comments: Exam Number: [id number] CHEST CT WITH INTRAVENOUS CONTRAST. REASON FOR [...] No growth in 5 6:14 days. (Normal) 8-Xtp-196504:14 CBCD,SMEAR DIFF BAND 1 % (Normal) Range: [...] T PROT 6.3 g/dL (Abnormal) Range: 6.4-8.2 89-Ure-902786:19 EBVIgG/M 677687 EB-EA IgG 62356 79 AU/mL (Normal) Range: 0-99 Comments: Negative <100 Equivocal 100 - 120 Positive >120 EB-NAg [id number] 656 AU/mL (Abnormal) Range: 0-99 Comments: Negative <100 Equivocal 100 - 120 Positive >120 EB-VCA [id number] 2296 AU/mL (Abnormal) Range: 0-99 Comments: Negative <100 Equivocal 100 - 120 Positive >120 EB-VCA [id number] 9 AU/mL (Normal) Range: 0-99 Comments: Negative [...] + Antibody Present - Antibody AbsentPerformed At: [facility] [id number] [place], [place] [id number] 63-Tlv-036594:00 CULTURE, THROAT See Note (Normal) Comments: Normal throat ashkan isolated. No beta-hemolyticstreptococcus isolated. 06-Foo-334589:35 Rapid Strep Test, Office (99091) Rapid Strep Test, Office Negative (Normal) 66-Bew-36629:40 TISS/FLUID P-BX/CY (Normal) Comments: OPERATION Biopsy, testicle, [...] SJ:rin 11/09/06 TC:5 REPORT SIGNED: PAMELLA SON 11/10/0607-Nov-200642-Jxh-982116:55 ALDOLASE 2030 2.3 U/L (Normal) Range: 1.2-7.6 Comments: Performed At: [address] [id number] At: [address] [id number] 01-Aem-209216:55 JOHN-D [id number] JOHN-DIRECT 9 U/mL (Normal) Range: 0-99 Comments: Negative <100 Equivocal 100 - 120 Positive >120 00-Los-671765:55 C-REACTIVE PROT 0.52 mg/L (Normal) Range: 0.0-6.0 Comments: Test performed using the Dimension C-Reactive ProteinExtended Range assay method. This assay meets the AHA/CDC 2003 recommendations fordetermining patients at high risk for cardiovasculardisease. Reference: High risk CRP >3.0 mg/L 75-Fka-230060:55 CBC HCT 42.8 % (Normal) Range: 40-54 [...] 4.9 {IU/mL} (Normal) Range: 0.0-13.9 :55 TESTOST [id number] TESTOSTER %FREE 2.87 % (Normal) Range: 1.50-4.20 [...] Report See Note (Normal) Comments: Exam Number: [id number] TESTICULAR ULTRASOUND HISTORYTesticular swelling. High resolution real [...] Reported By: MAYELIN DE LA FUENTE M.D. 5-Hes-832506:45 HIP, MIN 2 VIEWS Radiology Report See Note (Normal) Comments: Exam Number: [id number] FIVE VIEW LUMBAR SPINE AP, LATERAL, BOTH [...] degenerative changes. Reported By: REMIGIO PURCELL M.D. 1-Utq-712493:45 L/S SPINE,MIN 4 VIEWS Radiology Report See Note (Normal) Comments: Exam Number: [id number] FIVE VIEW LUMBAR SPINE AP, LATERAL, BOTH [...] degenerative changes. Reported By: REMIGIO PURCELL M.D. 8-Yxc-283373:44 HIP, MIN 2 VIEWS Radiology Report See Note (Normal) Comments: Exam Number: [id number] FIVE VIEW LUMBAR SPINE AP, LATERAL, BOTH [...] Report See Note (Normal) Comments: Exam Number: [id number] PA AND LATERAL CHEST HISTORYShortness of breath. [...] 15, 2005. Reported By: EDVIN MARIE M.D. 14-Eql-672862:25 ALDOLASE 2030 3.0 U/L (Normal) Range: 1.2-7.6 Comments: Performed At: [facility] [place], [place] [id number] 99-Glc-869380:25 JOHN-D [id number] JOHN-DIRECT 46 U/mL (Normal) Range: 0-99 Comments: Negative <100 Equivocal 100 - 120 Positive >120 23-Ape-153732:25 C-REACTIVE PROT 1.07 mg/L (Normal) Range: 0.0-6.0 Comments: Test performed using the Dimension C-Reactive ProteinExtended Range assay method. This assay meets the AHA/CDC 2003 recommendations fordetermining patients at high risk for cardiovasculardisease. Reference: High risk CRP >3.0 mg/L 59-Tuw-122368:25 CBCD BASO% 0.4 % (Normal) Range: 0-1 [...] morphology Planned Observations CBC W/AUTO DIFF WBC (06766)Indication: Hypertension, benign On: :51 Request METABOLIC PANEL, COMPREHENSIVE (11794)Indication: Hypertension, benign On: :51 Request LIPID PANEL (11112)Indication: Other hyperlipidemia On: :50 Request CULTURE,FUNGUS W/STAIN 475456 (82786)Indication: Bronchiectasis On: :59 Request CULTURE, SPUTUM (69046)Indication: Moderate persistent asthma without complication On: :21 Request HGB A1C (13262)Indication: Abnormal glucose tolerance test On: :10 Request CBC with auto diff (33367)Indication: Abnormal glucose tolerance test On: :10 Request METABOLIC PANEL, COMPREHENSIVE (86436)Indication: Abnormal glucose tolerance test On: :10 Request LIPID PANEL (82165)Indication: Other hyperlipidemia On: :10 Request PSA (PROSTATE SPECIFIC ANTIGEN) (V76.44)Indication: Encounter for screening for malignant neoplasm of prostate (Renamed from Screening for prostate cancer) On: :09 Request METABOLIC PANEL, COMPREHENSIVE (01296)Indication: Essential hypertension On: 6-Dgk-754614:58 Request CBC with auto diff (74482)Indication: Hypertension, benign On: :53 Request METABOLIC PANEL, COMPREHENSIVE (91780)Indication: Abnormal glucose tolerance test On: :52 Request MICROALBUMIN: CREATININE RATIO (40104) AND (87714)Indication: Abnormal glucose tolerance test On: :52 Request HGB A1C (29470)Indication: Abnormal glucose tolerance test On: :52 Request LIPID PANEL (46118)Indication: Other hyperlipidemia On: :52 Request LIPID PANEL (05150)Indication: Other hyperlipidemia On: 8-Bat-290118:30 Request CBC W/AUTO DIFF WBC (55473)Indication: Hypertension, benign On: :29 Request METABOLIC PANEL, COMPREHENSIVE (24467)Indication: Hypertension, benign On: :29 Request IMMUNOGLOBULIN G (IgG) (08190)Indication: Abnormal blood chemistry On: :02 Request Comments: PLEASE DRAW WITH OTHER LABS IN 2016 serum free light chains (78354)Indication: Abnormal blood chemistry On: :40 Request serum immunofixation (93195)Indication: Abnormal blood chemistry On: :40 Request PSA (PROSTATE SPECIFIC ANTIGEN) (V76.44)Indication: Encounter for screening for malignant neoplasm of prostate (Renamed from Screening for prostate cancer) On: :40 Request LIPID PANEL (41885)Indication: Other hyperlipidemia On: Request CBC with auto diff (98102)Indication: Abnormal glucose tolerance test On: :39 Request METABOLIC PANEL, COMPREHENSIVE (07097)Indication: Abnormal glucose tolerance test On: :39 Request MICROALBUMIN: CREATININE RATIO (97574) AND (71695)Indication: Abnormal glucose tolerance test On: :39 Request HGB A1C (20344)Indication: Abnormal glucose tolerance test On: :39 Request LIPID PANEL (45484)Indication: Other hyperlipidemia On: 7-Utq-618330:58 Request urine immunofixation (79500)Indication: Abnormal blood chemistry On: :34 Request serum immunofixation (45075)Indication: Abnormal blood chemistry On: :34 Request MICROALBUMIN: CREATININE RATIO (86610) AND (78051)Indication: Abnormal glucose tolerance test On: :32 Request HGB A1C (18112)Indication: Abnormal glucose tolerance test On: :32 Request CBC W/AUTO DIFF WBC (97503)Indication: Hypertension, benign On: :30 Request METABOLIC PANEL, COMPREHENSIVE (51667)Indication: Hypertension, benign On: :30 Request LIPID PANEL (93449)Indication: Other hyperlipidemia On: :30 Request LIPOPROTEIN, BLD, BY NMR (06633)Indication: Other hyperlipidemia On: :14 Request CBC WITH MANUAL DIFF (45935)Indication: Essential hypertension On: 14-Ppl-274383:14 Request Metabolic Panel, Comprehensive (14830)Indication: Essential hypertension On: :14 Request CBC W/AUTO DIFF WBC (09547)Indication: Abnormal glucose tolerance test On: : Request LIPOPROTEIN, BLD, BY NMR (62798)Indication: Other hyperlipidemia On: : Request METABOLIC PANEL, COMPREHENSIVE (55212)Indication: Abnormal glucose tolerance test On: : Request Anti-TPO Antibody (60833)Indication: Abnormal blood chemistry On: :57 Request T4, FREE (THYROXINE) (52960)Indication: Abnormal blood chemistry On: : Request T3, FREE (TRIDOTHYRONINE) (78798)Indication: Abnormal blood chemistry On: :57 Request TSH (02747)Indication: Abnormal blood chemistry On: :56 Request P-ANCA & C-ANCA (ANCA PROFILE) 29915 x2 and 88898 i3Ahwgaexqxq: Acute recurrent maxillary sinusitis On: :26 Request JOHN (ANTINUCLEAR ANTIBODY) (46963)Indication: Abnormal blood chemistry On: :56 Request RHEUMATOID FACTOR-QUANT (30875)Indication: Abnormal blood chemistry On: :56 Request SED RATE ERYTHROCYTE (70420)Indication: Abnormal blood chemistry On: :56 Request C-REACTIVE PROTEIN (18334)Indication: Abnormal blood chemistry On: :56 Request CBC with auto diff (84095)Indication: Hypertension, benign On: :10 Request MICROALBUMIN: CREATININE RATIO (59656) AND (20103)Indication: Abnormal glucose tolerance test On: : Request METABOLIC PANEL, COMPREHENSIVE (02544)Indication: Abnormal glucose tolerance test On: : Request HGB A1C (76733)Indication: Abnormal glucose tolerance test On: : Request METABOLIC PANEL, COMPREHENSIVE (83452)Indication: Hypertension, benign On: : Request LIPID PANEL (71257)Indication: Other hyperlipidemia On: : Request PSA (PROSTATE SPECIFIC ANTIGEN) (V76.44)Indication: Encounter for screening for malignant neoplasm of prostate (Renamed from Screening for prostate cancer) On: 33-Rcw-092647:59 Request Factor 2 (Prothrombin) Gene Mutation (53972)Indication: Other symptoms involving cardiovascular system On: 9-Sez-658189:13 Request MICROALBUMIN: CREATININE RATIO (22290) AND (46429)Indication: Abnormal glucose tolerance test On: :53 Request HGB A1C (36612)Indication: Abnormal glucose tolerance test On: :53 Request LIPID PANEL (10776)Indication: Other hyperlipidemia On: :53 Request CBC W/AUTO DIFF WBC (42195)Indication: Hypertension, benign On: :53 Request METABOLIC PANEL, COMPREHENSIVE (84785)Indication: Hypertension, benign On: :53 Request CBC with auto diff (84357)Indication: Hypertension, benign On: 6-Hpu-046486:25 Request METABOLIC PANEL, COMPREHENSIVE (70499)Indication: Hypertension, benign On: :25 Request LIPID PANEL (78506)Indication: Other hyperlipidemia On: 7-Wxo-559668:25 Request Factor V Leiden (45830)Indication: Deep vein thrombosis of lower extremity On: :24 Request CLOTTING FACTOR II (62119)Indication: Deep vein thrombosis of lower extremity On: :24 Request ANTITHROMBIN III ACTIVTY (93771)Indication: Deep vein thrombosis of lower extremity On: :24 Request Antiphospholipid atb (70225)Indication: Deep vein thrombosis of lower extremity On: :24 Request Protein C Profile (25041)Indication: Deep vein thrombosis of lower extremity On: :24 Request Protein S Profile (89876)Indication: Deep vein thrombosis of lower extremity On: :24 Request Hemoglobin Glyclated (HGB A1C) (42528)Indication: Abnormal glucose tolerance test On: :23 Request CBC W/AUTO DIFF WBC (26373)Indication: Abnormal glucose tolerance test On: :43 Request MICROALBUMIN: CREATININE RATIO (07174) AND (50480)Indication: Abnormal glucose tolerance test On: :43 Request METABOLIC PANEL, COMPREHENSIVE (25221)Indication: Abnormal glucose tolerance test On: Request LIPID PANEL (87678)Indication: Other hyperlipidemia On: Request DNA ANTIBODY-NATV/DBL ST (18410)Indication: Heart disease, unspecified On: : Request METABOLIC PANEL, COMPREHENSIVE (81985)Indication: Essential hypertension On: : Request LIPID PANEL (83393)Indication: Other hyperlipidemia On: :31 Request Hemoglobin Glyclated (HGB A1C) (14800)Indication: Abnormal glucose tolerance test On: : Request PSA (PROSTATE SPECIFIC ANTIGEN) (V76.44)Indication: Benign prostatic hyperplasia with lower urinary tract symptoms, unspecified morphology On: :52 Request MICROALBUMIN: CREATININE RATIO (51939) AND (41237)Indication: Abnormal glucose tolerance test On: :50 Request Hemoglobin Glyclated (HGB A1C) (15221)Indication: Abnormal glucose tolerance test On: :50 Request URINE WARREN CULTURE (MASSIEL COL COUNT) (48184)Indication: Muscle weakness On: 48 Request URINALYSIS, W/ MICRO (90440)Indication: Muscle weakness On: :48 Request CBC with auto diff (76243)Indication: Muscle weakness On: :48 Request JOHN (ANTINUCLEAR ANTIBODY) (85781)Indication: Muscle weakness On: :48 Request SED RATE ERYTHROCYTE (43197)Indication: Muscle weakness On: :48 Request C-REACTIVE PROTEIN (82389)Indication: Muscle weakness On: 48 Request TSH (27895)Indication: Muscle weakness On: 31-Xmd-327636:48 Request LIPID PANEL (48181)Indication: Other hyperlipidemia On: 47-Gxi-182918:47 Request METABOLIC PANEL, COMPREHENSIVE (92690)Indication: Other hyperlipidemia On: :46 Request URINE WARREN CULTURE-MASSIEL COL COUNT (22108)Indication: Other abnormal finding of urine On: 3-Nho-436066:42 Request LIPID PANEL (14407)Indication: Other hyperlipidemia On: :44 Request CBC W/AUTO DIFF WBC (57014)Indication: Essential hypertension On: :44 Request METABOLIC PANEL, COMPREHENSIVE (53213)Indication: Essential hypertension On: :44 Request URINE WARREN CULTURE-MASSIEL COL COUNT (23117)Indication: Other abnormal finding of urine On: 2-Dgf-156966:00 Request Comments: ADD ON MICROALBUMIN: CREATININE RATIO (75964) AND (46371)Indication: Essential hypertension On: :02 Request URINALYSIS, W/ MICRO (45745)Indication: Essential hypertension On: 1-Ftz-893208:02 Request METABOLIC PANEL, COMPREHENSIVE (56158)Indication: Essential hypertension On: 3-Cmy-426183:02 Request LIPID PANEL (32544)Indication: Other hyperlipidemia On: 9-Yat-695979:02 Request CBC WITH MANUAL DIFF (30984)Indication: Iron deficiency On: 1-Jng-609852:02 Request URINE WARREN CULTURE (MASSIEL COL COUNT) (06556)Indication: Fatigue On: 26-Iih-650394:46 Request MICROALBUMIN: CREATININE RATIO (45465) AND (56953)Indication: Abnormal glucose tolerance test On: 66-Wuh-194023:46 Request Hemoglobin Glyclated (HGB A1C) (05508)Indication: Abnormal glucose tolerance test On: 42-Kwu-710923:46 Request IRON BINDING CAPACITY (TIBC) (65168)Indication: Anemia, unspecified On: :42 Request FERRITIN (12794)Indication: Anemia, unspecified On: 20-Nmu-436929:42 Request IRON (37096)Indication: Anemia, unspecified On: 58-Srx-343586:42 Request VITAMIN B-12 (CYANOCOBALAMIN) (86532)Indication: Fatigue On: 36-Pwj-108713:42 Request CBC (AUTO) (83933)Indication: Fatigue On: Request TSH (53418)Indication: Fatigue On: Request Vitamin D Hydroxy (58782)Indication: Fatigue On: Request EBV Panel (69819)Indication: Fatigue On: Request FERRITIN (65197)Indication: Anemia, unspecified On: Request IRON (06308)Indication: Anemia, unspecified On: Request MICROALBUMIN: CREATININE RATIO (41272) AND (87370)Indication: Abnormal glucose tolerance test On: Request METABOLIC PANEL, COMPREHENSIVE (50389)Indication: Abnormal glucose tolerance test On: Request LIPID PANEL (67396)Indication: Other hyperlipidemia On: Request CBC WITH MANUAL DIFF (91189)Indication: Anemia, unspecified On: Request FERRITIN (52746)Indication: Anemia, unspecified On: :15 Request IRON (06563)Indication: Anemia, unspecified On: Request LIPID PANEL (89502)Indication: Essential hypertension On: Request METABOLIC PANEL, COMPREHENSIVE (81800)Indication: Essential hypertension On: : Request CBC WITH MANUAL DIFF (47705)Indication: Essential hypertension On: Request UPEP (58659)Indication: BRONCHITIS, NOT SPECIFIED ACUTE OR CHRONIC (490.) On: Request Protein Electrophoresis, Serum (SPEP) (25693)Indication: BRONCHITIS, NOT SPECIFIED ACUTE OR CHRONIC (490.) On: Request IGA/IGD/IGG/IGM-EACH (57601)Indication: BRONCHITIS, NOT SPECIFIED ACUTE OR CHRONIC (490.) On: Request URINALYSIS, W/ MICRO (77067)Indication: Anemia, unspecified On: Request CBC WITH MANUAL DIFF (81378)Indication: Anemia, unspecified On: : Request FOLIC ACID SERUM (84349)Indication: Anemia, unspecified On: Request VITAMIN B-12 (CYANOCOBALAMIN) (14659)Indication: Anemia, unspecified On: : Request RETICULOCYTE COUNT MANUL (24900)Indication: Anemia, unspecified On: Request LDH (LD) (LACTATE DEHYDROGENASE) (30203)Indication: Anemia, unspecified On: Request IRON BINDING CAPACITY (TIBC) (56299)Indication: Anemia, unspecified On: Request IRON (86124)Indication: Anemia, unspecified On: Request FERRITIN (57947)Indication: Anemia, unspecified On: Request PSA (PROSTATE SPECIFIC ANTIGEN) (V76.44)Indication: Screening for prostate cancer On: :36 Request LIPID PANEL (75415)Indication: Abnormal glucose tolerance test On: :35 Request CBC WITH MANUAL DIFF (55700)Indication: Hypertension, benign On: 35 Request METABOLIC PANEL, COMPREHENSIVE (34587)Indication: Hypertension, benign On: 35 Request SED RATE ERYTHROCYTE (12507)Indication: Rash On: :22 Request C-REACTIVE PROTEIN (91820)Indication: Rash On: :22 Request RHEUMATOID FACTOR-QUANT (35018)Indication: Rash On: :22 Request JOHN (ANTINUCLEAR ANTIBODY) (39068)Indication: Rash On: 86-Kqk-140816:22 Request CULTURE, SPUTUM (53083)Indication: Cough On: 34-Osa-651419:20 Request HgA1C , Office (84654)Indication: Abnormal glucose tolerance test On: 62-Cfd-862464:57 Request CULTURE, SPUTUM (90483)Indication: Cough On: 76-Nus-914901:39 Request ACID FAST STAIN (AFB) (97997)Indication: Cough On: 85-Sfs-760032:38 Request TSH (38035)Indication: Other hyperlipidemia On: : Request URINALYSIS, W/ MICRO (65343)Indication: Essential hypertension On: :21 Request CBC WITH MANUAL DIFF (79776)Indication: Abnormal glucose tolerance test On: :21 Request METABOLIC PANEL, COMPREHENSIVE (91341)Indication: Abnormal glucose tolerance test On: :21 Request MICROALBUMIN: CREATININE RATIO (26167) AND (19176)Indication: Abnormal glucose tolerance test On: :21 Request LIPID PANEL (33658)Indication: Other hyperlipidemia On: :20 Request CBC WITH MANUAL DIFF (21286)Indication: Abnormal glucose tolerance test On: : Request METABOLIC PANEL, COMPREHENSIVE (26110)Indication: Abnormal glucose tolerance test On: 83-Fkw-078869:26 Request CULTURE, SPUTUM (40371)Indication: Cough On: 54-Wxt-633679:18 Request LIPID PANEL (79041)Indication: Other hyperlipidemia On: 89-Nbq-273330:14 Request TSH (67035)Indication: Swelling of limb On: 44-Bwf-36223:58 Request METABOLIC PANEL, COMPREHENSIVE (08957)Indication: Swelling of limb On: :58 Request CBC WITH MANUAL DIFF (29322)Indication: Swelling of limb On: :58 Request BNTP (91525)Indication: Swelling of limb On: :58 Request CULTURE, SPUTUM (60557)Indication: Cough On: :56 Request PSA (PROSTATE SPECIFIC ANTIGEN) (V76.44)Indication: Screening for prostate cancer On: 26-Ddy-713597:19 Request URINALYSIS, W/ MICRO (96536)Indication: Abnormal glucose tolerance test On: 13-Zsm-412034:18 Request MICROALBUMIN: CREATININE RATIO (78158) AND (94934)Indication: Abnormal glucose tolerance test On: 99-Tmh-432574:18 Request METABOLIC PANEL, COMPREHENSIVE (31326)Indication: Essential hypertension On: 62-Lft-478051:18 Request LIPID PANEL (21028)Indication: Other hyperlipidemia On: 88-Dlb-684227:18 Request PSA (PROSTATE SPECIFIC ANTIGEN) (V76.44)Indication: Screening for prostate cancer On: :40 Request MICROALBUMIN: CREATININE RATIO (61499) AND (23476)Indication: Abnormal glucose tolerance test On: :40 Request METABOLIC PANEL, COMPREHENSIVE (19690)Indication: Abnormal glucose tolerance test On: :40 Request Urine Protein Electrophoresis (UPEP) (38378)Indication: recurrent uri On: :39 Request Serum Protein Electrophoresis (SPEP) (41242)Indication: recurrent uri On: :39 Request IMMUNOGLOBULIN E (IgE) (02467)Indication: Asthma, intrinsic, with status asthmaticus On: :39 Request IGA/IGD/IGG/IGM-EACH (24818)Indication: Asthma, intrinsic, with status asthmaticus On: :39 Request LIPID PANEL (82816)Indication: Other hyperlipidemia On: :38 Request ASPERGILLUS AG, EIA (33029)Indication: Cough On: :58 Request SED RATE ERYTHROCYTE (35617)Indication: Cough On: 26-Xls-875543:48 Request C-REACTIVE PROTEIN (18842)Indication: Cough On: :48 Request CBC WITH MANUAL DIFF (48034)Indication: Cough On: 79-Oqk-759404:47 Request Quantiferron gold test (68868)Indication: Cough On: :45 Request CULTURE, SPUTUM (46497)Indication: Cough On: :45 Request VITAMIN B-12 (CYANOCOBALAMIN) (08409)Indication: Fatigue On: :20 Request Vitamin D Hydroxy (60375)Indication: Fatigue On: 99-Jix-253082:20 Request CBC WITH MANUAL DIFF (84575)Indication: Abnormal glucose tolerance test On: :19 Request METABOLIC PANEL, COMPREHENSIVE (78233)Indication: Abnormal glucose tolerance test On: :19 Request LIPID PANEL (51959)Indication: Other hyperlipidemia On: :19 Request URINALYSIS, W/ MICRO (45530)Indication: Abnormal glucose tolerance test On: :19 Request HEMOGLOBIN GLYCLATED (HGB A1C) (09811)Indication: Abnormal glucose tolerance test On: :19 Request WARREN CULTURE-OTHER (85909)Indication: Pharyngitis, acute On: 16-Rla-916582:05 Request URINE WARREN CULTURE-MASSIEL COL COUNT (42060)Indication: Abdominal pain, acute, right lower quadrant On: :19 Request CBC WITH MANUAL DIFF (98598)Indication: Abnormal glucose tolerance test On: :08 Request METABOLIC PANEL, COMPREHENSIVE (99693)Indication: Abnormal glucose tolerance test On: :08 Request TSH (71762)Indication: Fatigue On: :02 Request CBC WITH MANUAL DIFF (13530)Indication: Abnormal glucose tolerance test On: :45 Request METABOLIC PANEL, COMPREHENSIVE (18103)Indication: Hypertension, benign On: :45 Request LIPID PANEL (64159)Indication: Other hyperlipidemia On: :45 Request METABOLIC PANEL, COMPREHENSIVE (15175)Indication: Essential hypertension On: 64-Gpn-152086:16 Request LIPID PANEL (23062)Indication: Other hyperlipidemia On: 51-Nii-505701:15 Request URINE WARREN CULTURE-MASSIEL COL COUNT (97244)Indication: Calcium kidney stone On: 58-Rtn-617560:54 Request PSA (PROSTATE SPECIFIC ANTIGEN) (V76.44)Indication: Enlarged prostate with lower urinary tract symptoms On: 98-Hof-199265:09 Request METABOLIC PANEL, COMPREHENSIVE (33104)Indication: Abnormal glucose tolerance test On: 72-Nye-956226:09 Request CBC WITH MANUAL DIFF (43972)Indication: Abnormal glucose tolerance test On: 26-Scw-357874:09 Request LIPID PANEL (22919)Indication: Other hyperlipidemia On: 76-Hfw-156404:09 Request MICROALBUMIN: CREATININE RATIO (28903) AND (80769)Indication: Abnormal glucose tolerance test On: 22-Hsy-487088:09 Request LIPID PANEL (86469)Indication: Other hyperlipidemia On: :31 Request CBC WITH MANUAL DIFF (62636)Indication: Abnormal glucose tolerance test On: :31 Request METABOLIC PANEL, COMPREHENSIVE (28318)Indication: Abnormal glucose tolerance test On: :30 Request MICROALBUMIN: CREATININE RATIO (14670) AND (52567)Indication: Abnormal glucose tolerance test On: 19-Bom-994612:28 Request METABOLIC PANEL, COMPREHENSIVE (88262)Indication: Abnormal glucose tolerance test On: 2-Pen-670796:07 Request LIPID PANEL (71578)Indication: Other hyperlipidemia On: 6-Jqn-515098:07 Request PSA (PROSTATE SPECIFIC ANTIGEN) (V76.44)Indication: Enlarged prostate with lower urinary tract symptoms On: 4-Ccb-097209:49 Request METABOLIC PANEL, COMPREHENSIVE ([id number])Indication: Essential hypertension On: 4-Fja-210681:48 Request LIPID PANEL ([id number])Indication: Other hyperlipidemia On: :48 Request HEPATIC FUNCTION PANEL ([id number])Indication: Other hyperlipidemia On: :21 Request LIPID PANEL ([id number])Indication: Other hyperlipidemia On: :21 Request CBC WITH MANUAL DIFF ([id number])Indication: Abnormal glucose tolerance test On: :53 Request METABOLIC PANEL, COMPREHENSIVE ([id number])Indication: Abnormal glucose tolerance test On: 1-Pgc-501156:53 Request MICROALBUMIN: CREATININE RATIO ([id number]) AND ([id number])Indication: Abnormal glucose tolerance test On: 3-Hlp-668457:53 Request HEPATIC FUNCTION PANEL ([id number])Indication: Other hyperlipidemia On: 0-Yru-696211:53 Request LIPID PANEL ([id number])Indication: Other hyperlipidemia On: 7-Cgc-208337:53 Request GLUCOSE TOLERANCE TEST (GTT) 2 hour On: 7-Tuu-809355:36 Request ([id number]) TSH ([id number])Indication: Dizziness and giddiness On: 53-Moo-884808:15 Request LIPID PANEL ([id number])Indication: Other hyperlipidemia On: 34-Sdq-815526:15 Request CBC WITH MANUAL DIFF ([id number])Indication: Dizziness and giddiness On: 11-Zqf-863011:15 Request METABOLIC PANEL, COMPREHENSIVE ([id number])Indication: Dizziness and giddiness On: 85-Zhk-740282:15 Request HEPATIC FUNCTION PANEL ([id number])Indication: Other hyperlipidemia On: :39 Request LIPID PANEL ([id number])Indication: Other hyperlipidemia On: 07-Lxg-763151:39 Request HEPATIC FUNCTION PANEL ([id number])Indication: Other hyperlipidemia On: 67-Gkc-766461:31 Request LIPID PANEL ([id number])Indication: Other hyperlipidemia On: 52-Ozq-340230:31 Request WARREN CULTURE-BLOOD ([id number])Indication: fever On: 1-Coy-969626:58 Request METABOLIC PANEL, COMPREHENSIVE ([id number])Indication: fever On: 3-Xrm-516264:58 Request CBC WITH MANUAL DIFF ([id number])Indication: fever On: :58 Request WARREN CULTURE-OTHER ([id number])Indication: Pharyngitis, acute On: 06-Wnp-556376:35 Request PSA (Prostate Specific Antigen), Screening ([id number])Indication: Other hyperlipidemia On: :32 Request LIPID PANEL ([id number])Indication: Other hyperlipidemia On: :31 Request URINALYSIS W/O MICRO ([id number])Indication: Hypertension, benign On: :31 Request TSH ([id number])Indication: Hypertension, benign On: :31 Request CBC WITH MANUAL DIFF ([id number])Indication: Hypertension, benign On: :31 Request METABOLIC PANEL, COMPREHENSIVE ([id number])Indication: Hypertension, benign On: :31 Request Creatine Kinase Total ([id number])Indication: Myalgia and myositis On: 0-Skg-740609:24 Request SED RATE ERYTHROCYTE ([id number])Indication: Arthralgia On: :23 Request C-REACTIVE PROTEIN ([id number])Indication: Arthralgia On: :23 Request RHEUMATOID FACTOR-QUANT ([id number])Indication: Arthralgia On: :23 Request JOHN (ANTINUCLEAR ANTIBODY) ([id number])Indication: Arthralgia On: :23 Request Planned Encounters Medical; [facility] 3 Month FU - On: 21-Mar-2018 8:30 [facility] Fast DO, Adelaida A Fast DO, Adelaida A Planned Procedures PNEUM VAC ADLT/IMUMNOSPR, On: 06-Dec-2017 Intent SBC/INTRM ([id number])By: Flakito ACKERMAN, Comments: lot: [id number]: ite/route: L del/IMamt: 0.5mLVIS signed when applicableEVER Monroy Adelaida A Fast DO, Adelaida A Cartoid DopplerBy: Fast DO, Adelaida On: 06-Sep-2017 Intent A Fast DO, Adelaida A Radiology - Lumbar SpineBy: Fast On: 06-Jun-2017 Intent DO, Adelaida A Fast DO, Adelaida A ELECTROCARDIOGRAM, COMPLETE (ECG) On: 06-Jun-2017 Intent ([id number])By: Fast DO, Adelaida A Fast Comments: ekg [...] XRAY, PA & LATERAL On: 18-Jan-2017 Intent ([id number])By: Yola Witt Aerosol Treatment ([id number])By: On: 18-Jan-2017 Intent Yola Witt Solu -Medrol Injection, 125 mg On: 18-Jan-2017 Intent ([id number])By: Yola Witt Comments: solumedrol 125mg injectionlot: [id number]: 12/2018L GMpt tolerated wellAD ORE ROASTER ELECTROCARDIOGRAM, COMPLETE (ECG) On: 05-Jan-2016 Intent ([id number])By: Flakito ACKERMAN Adelaida A Flakito Comments: ekg showed normal sinus rhythym, normal axis, no acute st/t wave changes irbb DO, Adelaida A Solu -Medrol Injection, 125 mg On: 09-May-2015 Intent ([id number])By: Samantha Grewal CNP Comments: lot: [id number]: ite/route:RGM/IMamt: 2mLVIS signed when applicableEVER Dumont Aerosol Treatment ([id number])By: On: 09-May-2015 Intent Slarb ORE ROASTER, Tracey Radiology - Chest- PA and LatBy: [...] A Fast DO, Adelaida A Pulse Oximetry ([id number])By: Fast On: 26-Aug-2014 Intent DO, Adelaida A Fast DO, Adelaida A Comments: 94%- recheck 95 Aerosol Treatment ([id number])By: On: 10-Apr-2014 Intent Tracey Young LPN Eprescribed prescriptions On: 25-Jul-2013 Intent (G8553)By: Fast DO, Adelaida A Fast DO, Adelaida A Pulse Oximetry ([id number])By: Fast On: 02-Jul-2013 Intent DO, Adelaida A Fast DO, Adelaida A Comments: 97% Aerosol Treatment ([id number])By: On: 25-Jun-2013 Intent Samantha Grewal CNP Eprescribed prescriptions On: 25-Jun-2013 Intent (G8553)By: Samantha Grewal CNP Eprescribed prescriptions On: 02-Apr-2013 Intent (G8553)By: Leigh Ann Polk Aerosol Treatment ([id number])By: On: 26-Mar-2013 Intent Samantha Grewal CNP Eprescribed prescriptions On: 26-Mar-2013 Intent (G8553)By: Eliana Carter Eprescribed prescriptions On: 25-Dec-2012 Intent (G8553)By: Leigh Ann Polk Aerosol Treatment ([id number])By: On: 06-Nov-2012 Intent Samantha Grewal CNP Eprescribed prescriptions On: 06-Nov-2012 Intent (G8553)By: Eliana Carter Ear Irrigation ([id number])By: Carmina On: 25-Sep-2012 Intent Samantha IRVIN Comments: Ear Irrigation performed on:bilateralAmount/color removed cerumen:large amount of dark brown wax removedOUtcome:clear, pt toleratedUsed wax curettes Wax CurettesBy: Carmina IRVINSamantha On: 25-Sep-2012 Intent Eprescribed prescriptions On: 22-Sep-2012 Intent (G8553)By: Elizabet Green DO Eprescribed prescriptions On: 02-Aug-2012 Intent (G8553)By: Leigh Ann Polk Pulse Oximetry ([id number])By: Flkaito On: 30-Jun-2012 Intent DO, Adelaida A Fast DO, Adelaida A Comments: 97% Eprescribed prescriptions On: 12-Jun-2012 Intent (G8553)By: Fast DO, Adelaida A Fast DO, Adelaida A Spirometry ([id number])By: Felicitas, On: 17-Jan-2012 Intent Leigh Ann Comments: good effort and curve mild restriction CT - Sinuses CompleteBy: Fast DO, On: 17-Jan-2012 Intent Adelaida A Fast DO, Adelaida A PNEUM VAC ADLT/IMUMNOSPR, On: 17-Jan-2012 Intent SBC/INTRM ([id number])By: Boris, Comments: Lot:[id number]:3-5-13Dose:0.5mLRoute:IMSite:L sreeGiven By:CHELA signed Julia IMMUNIZ ADMNIN, 1 VAC, SNGL/COMBO On: 17-Jan-2012 Intent ([id number])By: Julia Escalante CT - ChestBy: Fast DO, Adelaida A On: 17-Jan-2012 Intent Fast DO, Adelaida A Eprescribed prescriptions On: 17-Jan-2012 Intent (G8553)By: Leigh Ann Polk Eprescribed prescriptions On: 18-Oct-2011 Intent (G8553)By: Fast DO, Adelaida A Fast DO, Adelaida A EKG ([id number])By: Fast DO, Adelaida A On: 15-Oct-2011 Intent Fast DO, Adelaida A Comments: ekg- sinus with normal axis and nsivcd and no acute changes Eprescribed prescriptions On: 09-Aug-2011 Intent (G8553)By: Fast DO, Adelaida A Fast DO, Adelaida A PFT - CompleteBy: Fast DO, Adelaida On: 08-Mar-2011 Intent A Fast DO, Adelaida A Pulse Oximetry ([id number])By: Ciesa On: 02-Feb-2011 Intent ALBARO Samantha Taylor Aerosol Treatment ([id number])By: On: 02-Feb-2011 Intent Cialyse IRVIN Samantha Taylor Radiology - Chest- PA and LatBy: On: 18-Jan-2011 Intent Fast DO, Adelaida A Fast DO, Adelaida A Pulse Oximetry ([id number])By: On: 18-Jan-2011 Intent Leigh Ann Polk Comments: 93% TDAP VACCINE >7 IM ([id number])By: On: 07-Dec-2010 Intent Leigh Ann Polk Comments: Lot #:[id number] date:mount given:0.5mlRoute: IMSite given:left deltGiven by: DANIEL Zavaleta Eprescribed prescriptions On: 07-Dec-2010 Intent (G8553)By: Fast DO, Adelaida A Fast DO, Adelaida A FLU VAC, SPLIT, >3 YEARS, On: 07-Dec-2010 Intent INTRAMUSC ([id number])By: Felicitas, Comments: received at work Leigh Ann Toradol Injection, 30 mg On: 05-Nov-2010 Intent ([id number])By: Elizabet Green DO Comments: Lot:[id number]:apr 05Amt:30mg/mlRoute:IMSite:left hip Given By: ILDA Tran Ear Irrigation ([id number])By: Peter On: 05-Nov-2010 Elizabet Thomson DO Comments: Left ear irrigated, large amt of wax removed. pt tolerated well. Eprescribed prescriptions On: 05-Nov-2010 Intent (G8553)By: Elizabet Green DO Wax CurettesBy: Peter ACKERMAN, On: 05-Nov-2010 Intent Elizabet SPECIMEN HNDLNG/TRNSPRT, OFFC > On: 05-Nov-2010 Intent LAB ([id number])By: Elizabet Green DO Nuclear Medicine - HIDA [...] call wet read DO, Adelaida A Spirometry ([id number])By: Fast DO, On: 14-Sep-2010 Intent Adelaida A Fast DO, Adelaida A Comments: good effort and curve- mild restriction Eprescribed prescriptions On: 14-Sep-2010 Intent (G8553)By: Fast DO, Adelaida A Fast DO, Adelaida A Pulse Oximetry ([id number])By: Fast On: 14-Sep-2010 Intent DO, Adelaida A Fast DO, Adelaida A Comments: 94-95 Radiology - Chest- PA and LatBy: On: 14-Sep-2010 Intent Fast DO, Adelaida A Fast DO, Adelaida A Pulse Oximetry ([id number])By: Carmina On: 23-Feb-2010 Intent ALBARO Anamaria Aerosol Treatment ([id number])By: On: 23-Feb-2010 Intent Ciescalin IRVIN Anamaria Pulse Oximetry (10205)By: Carmina On: 26-Jan-2010 Intent ALBARO Anamaria Aerosol Treatment ([id number])By: On: 26-Jan-2010 Intent Carmina IRVIN Anamaria Spirometry ([id number])By: Felicitas On: 29-Apr-2008 Intent Leigh Ann Comments: good effort and curve normal EKG ([id number])By: Fast DO, Adelaida A On: 20-Apr-2007 Intent [...] DO, Adelaida A Flakito Comments: Lot #: [id number] date: 10/30Amount given: 2 gramsRoute: IMSite given: Right hip and left hipGiven by: Calin Townsend LPN DO, Adelaida A Spirometry (28710)By: Fast DO, On: 27-Mar-2007 Intent Adelaida A Fast DO, Adelaida A Comments: good effort and curve normal EBV SEROLOGIC TESTBy: Mary Ann Salcido On: 17-Feb-2007 Intent RUDY-GUZMAN VCA ANTIBODY On: 16-Feb-2007 Intent MEASUREMENTBy: Mast RN, Negrita SPECIMEN HNDLNG/TRNSPRT, OFFC > On: 06-Feb-2007 Intent LAB ([id number])By: Fast DO, Adelaida A Fast DO, Adelaida A Ultrasound - TesticularBy: Fast On: 13-Oct-2006 Intent DO, Adelaida A Fast DO, Adelaida A Inhaler Demo ([id number])By: Flakito DO, On: 26-Sep-2006 Intent Adelaida A Fast DO, Adelaida A Radiology - Hip - LeftBy: Fast On: 26-Sep-2006 Intent DO, Adelaida A Fast DO, Adelaida A Radiology - Hip - RightBy: Fast On: 26-Sep-2006 Intent DO, Adelaida A Fast DO, Adelaida A Bio Z ([id number])By: Fast DO, Adelaida A On: 25-Jul-2006 Intent Fast DO, Adelaida A Comments: normal paremters Six Minute Walk Assessment On: 25-Jul-2006 Intent ([id number])By: Fast DO, Adelaida A Fast DO, Adelaida A Radiology - Chest- PA and LatBy: On: 25-Jul-2006 Intent Fast DO, Adelaida A Fast DO, Adelaida A Spirometry ([id number])By: Flakito ACKERMAN, On: 25-Jul-2006 Intent Adelaida A Fast DO, Adelaida A Comments: good effort and curve- normal EDISON (Ankle Brachial Index) On: 20-Jul-2006 Intent ([id number])By: Leigh Ann Polk Comments: done EDISON (Ankle Brachial Index) On: 17-May-2006 Intent ([id number])By: Fast DO, Adelaida A Fast DO, Adelaida [...] Advance Directives Name Dates Details Immunization Registry [place] - Effective on Effective: 31-Jan-201701/31/2017. 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 [employer]- [...] for Follow up ER: Pt went to [facility] and then went to [facility] to have the doppler done.- got back [...] 2 days with bad UTI.- was at [facility] and getting cystoscopy done and was found to be retaining urine- - by the next night he was sick with no appetitie and just felt bad went to bed - woke up next day- and felt bad- and went to [facility]- and had uti- was there 2 [...] up hospital : Pt was transfered to [facility] for heart cath and discharged sat 06/30/13.- he had heart cath again at [facility] and one vessel which shows 20percent [...] kidney then goes down- jalen barton regular- [facility] next tuesday- to try colonsocopy- -his breathing [...] saw a Dr Barker a psychiatrist in [place]- he thought mostly anxiety so left him [...] gerd- so he is going back to [facility]- mood good with celexa-less tense, [ADDITIONAL [...] issues with focusing- and racing thoughts - [facility] has been able to [...]
--- OUTSIDE RECORDS SUMMARY | 2018-05-15 00:42 | XMS RPT_ITS | Continuity of Care Document ---
:1950 Author Organization [facility] Address [address] [facility] [address] [place] [address] Phone Care Team Providers Name Role Phone Adelaida Fraga DO Unavailable Remigio Lares MD Unavailable Tawanda Alonso Unavailable [facility] Unavailable Eliana Carter Unavailable [...] colonsoocpy 09/05- polyps - repeat 5 years [facility] Status: Active Coronary artery disease (I25.10, [...] Solution daily for 90 days Quantity: 3 {Gallaway} Refills: 5 Ordered:31-Oct-2017 Fast DO, Adelaida AFast [...] A Start : 02-Nov-2017 Active Comments:sixtyDX: M54.16, M51.30166,411,000 - OD risk 100 Lunesta 3 MG Oral Tablet 1 (one) Tablet q hs for 30 days Quantity: 30 {Tablet} Refills: 2 Ordered:06-Dec-2017 DOManolocalin TOPETEtesfaye ACKREMAN Adelaida A Start : 06-Dec-2017 Active MetFORMIN HCl ER 500 MG Oral Tablet Extended Release 24 Hour 2 (two) Tablet ER 24HR qd for 0 days Quantity: 180 {Tablet} Refills: 3 Ordered:06-Sep-2017 Flakito ACKERMANManolocalin TOPETEtesfaye ACKERMAN, Adelaida A Start : 06-Sep-2017 Active Myrbetriq 50 MG Oral Tablet Extended Release 24 Hour 1 tab Tablet ER 24HR daily for 90 days Quantity: 90 {Tablet} Refills: 2 Ordered:29-Aug-2017 Eliana Carter Start : 29-Aug-2017 Active NITRO-DUR, 0.6MG/HR (Transdermal Patch 24 Hour) 1 (one) Patch 24HR qd for 0 days Quantity: 30 {Unspecified} Refills: 0 Ordered:25-Jul-2013 Flakito ACKERMANAdelaida YOSELYNAdelaida carlin DO A Start : 25-Jul-2013 Active Protonix 40 MG Oral Tablet Delayed Release [address] bid for 0 days Quantity: 180 {Tablet} Refills: 3 Ordered:06-Jun-2017 Flakito ACKERMANManolocalin TOPETEtesfaye ACKERMAN Adelaida A Start : 06-Jun-2017 Active Proventil HFA 108 (90 Base) MCG/ACT Inhalation Aerosol Solution 2 (two) Aerosol Soln qid, prn for 30 days Quantity: 1 {Aerosol_Soln} Refills: 3 Ordered:06-Apr-2016 Manolocalin TOPETEtesfaye ACKERMAN Adelaida A Start : 06-Apr-2016 Active Ranexa 500 MG Oral Tablet Extended Release 12 Hour 2 (two) Tablet ER 12HR bid for 0 days Quantity: 120 {Tablet} Refills: 0 Ordered:06-Apr-2016 Manolocalin TOPETEtesfaye ACKERMAN Adelaida A Start : 06-Apr-2016 [...] 20-Mar-2013 Inactive Comments:alternate with 20mg(per hans at [facility] - was not fillable if more than 1qd and would require pa at [phone] or [phone] - sent in this way to see [...] (Oral Capsule) 1 (one) Capsule Capsule bid n9tirqh for 21 days Quantity: 42 {Capsule} Refills: [...] : 02-Sep-2010 End : 05-Nov-2010 Inactive NYSTATIN, 963146VGNM/ML (Mouth/Throat Suspension) 10 cc tid for 0 [...] : 22-Jun-2013 End : 03-Sep-2013 Inactive ZOSTAVAX, 28933KHJ/0.65ML (Subcutaneous Solution Reconstituted) 1 For Solution sc [...] Quantity: 3 {Inhaler} Refills: 3 Ordered:10-Apr-2014 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, Tracey Start : 22-Jun-2013 End : 10-Apr-2014 Discontinued ATENOLOL, 50MG (Oral Tablet) 1 tab Tablet qd for 30 days Quantity: 30 {Tablet} Refills: 0 Ordered:10-Apr-2014 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, Tracey Start : 12-Jun-2012 End : [...] Quantity: 60 {Capsule} Refills: 3 Ordered:10-Apr-2014 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, Tracey Start : 29-Oct-2013 End : 10-Apr-2014 Discontinued Dymista 137-50 MCG/ACT Nasal Suspension 1 spray each nostril qd for 0 days Quantity: 2 {Gallaway} Refills: 0 Ordered:11-Jun-2016 Leigh Ann Polk Start [...] Start : 05-Jan-2016 End : 06-Apr-2016 Discontinued Comments:[facility]ITAL[facility]ittney report#[id number] viewed and approved- gave scripts to [...] prn for 0 days Refills: 0 Ordered:29-Jan-2008 Mkaeda Mejia End : 20-Apr-2007 Discontinued PREDNISONE (PHUC), [...] x3 one on scalp two on right yazdanism Status: Inactive as of 06-Jun-2017 Acute sinusitis, [...] Visit Report Result: Comments: See Note; NOTES: [facility] 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 Atheros clerosis of [place] coronary artery of [place] heart without angina pectoris I25.10 PTCA/RINA to [...] Code Off vis,est,level 3 Diagnoses Atherosclerosis of [place] coronary artery of [place] heart without angina pectoris I25.10 [place] vs. tra nsplanted heart: [place] heart Essential hypertension I10 Hypertension type: essential hypertension Pure hypercholesterolemia E78.00; E78.0 Hyperlipidemia type: pure hypercholesterolemia Prinzmetal angin a I20.1 Coding Level of Care Code Off vis,est,level 3 Diagnoses Atherosclerosis of [place] coronary artery of [place] heart without angina pectoris I25.10 [place] vs. transplanted heart: [place] heart Es sential hypertension I10 Hypertension type: essential hypertension Pure hypercholesterolemia E78.00; E78.0 Hyperlipidemia type: pure hypercholesterolemia Prinzmetal angina I20.1 01/10/18 1104 &#6 0;Electronically signed by Sabra KENDALL> Date Sabra KENDALL Cosigner Signature: Date (if applicable) CC: Adelaida Fraga DO 26-Sep-2017 Brain W/WO Contrast Result: Comments: See Note; NOTES: [facility] Imaging Services [address] [place] [address] Brain W/WO Contrast MR#: [id number] Acct: [id number] Name: YUMIKO LANDRUM Rep #: [id number] : 1950 M 67 From: Rodney Sarah MD PCP: Adelaida Fraga DO Status: REG CLI Study: Brain W/WO Contrast Date of Exam: 09/26/17 Exam# [id number] Ordering Dr: Perico Crowe MD STUDY: MRI [...] CC: Perico Crowe MD; Adelaida Fraga DO Rotary Veneer Machine Operator: Signed 17-Sep-2017 Carotid Duplex Ultrasound Result: Comments: See Note; NOTES: [facility] Cardiovascular Services [address] [place] [address] Carotid Duplex Ultrasound 09/16/17 1012 MR#: [id number] Acct: [id number] Name: YUMIKO MCCOLLUM Rep #: [id number] : 1950 66 From: Jung Garcia MD Attending Dr: Adelaida Fraga DO Status: REG CLI Ordering Dr: Adelaida Fraga DO Date: 09/16/17 Location: [facility] Sex: M C Admitted: Reason For [...] the left vertebral artery. Procedure Carotid Duplex 10528. The study was technically difficult. Exam performed [...] DO Date Dictated: 1012 Date Transcribed: 09/17/171510 Rotary Veneer Machine Operator: Signed 17-Aug-2017 History and Physical Exam Result: Comments: See Note; NOTES: [facility] Medical Records Department [address] [place] [address] History and Physical 08/17/17913 MR#: [id number] Acct: [id number] Name: FRANCISCO E Rep #: [id number] : 1950 66 From: Remigio Lares MD PCP: Adelaida Fraga DO Status: REG [facility] Location: [facility] Problem List (1) Abnormal stress test Status: Acute (2) Atherosclerotic heart d isease of [place] coronary artery without angina pectoris Status: Chronic Qualifiers: [place] vs. transplanted heart: [place] heart Qualified Code(s): I25.10 - Atherosclerotic heart disease of [place] coron elise artery without angina pectoris Comment: [...] was trivial MR and TR and mild AR. His estimated RV systolic pressure was 30 [...] please see previously dictated out the patient TAZLINA from 07/14/2017. Review of systems: Upon review [...] this approach. This note was generated with [employer] dictation software. It may contain incorrect words, spelling, and punctuation that were not noted in checking the note bef ore signing. 08/17/17 0925 <Electronically signed by Remigio Lares MD> Date Remigio Lares MD Cosigner Signature: Date (if applicable) CC: Adelaida Fraga DO; Remigio Lares MD Signed 11-Aug-2017 Chest PA and Lateral Result: Comments: See Note; NOTES: [facility] Imaging Services [address] [place], [place] [address] [address] Chest PA and Lateral MR#: [id number] Acct: [id number] Name: YUMIKO LANDRUM Rep #: [id number] : 1950 M 66 From: Will Guerrero MD PCP: Adelaida Fraga DO Status: REG CLI Study: Chest PA and Lateral Date of Exam: 08/11/17 Exam# [id number] Ordering Dr: Remigio Lares MD STUDY: X-RAY [...] CC: Adelaida Fraga DO; Remigio Lares MD Rotary Veneer Machine Operator: Signed 02-Aug-2017 Stress Report Result: Comments: See Note; NOTES: [facility] Cardiovascular Services [address] [place] [address] MR#: [id number] Acct: [id number] Name: YUMIKO LANDRUM Rep #: [id number] : [birth year] 66 From: Remigio Lares MD [...] 72 %. This note was generated with [employer] software. It may contain incorrect words, spelling, and punctuation that were not noted in checking the note before signing. 08/02/17 2003 <Electronically signed by Remigio Lares MD> Date Remigio Lares MD CC: Adelaida Fraga DO; Remigio Lares MD Date Dictate d: 08/02/171638 Date Transcribed: 08/02/171638 Rotary Veneer Machine Operator: PM Signed 24-May-2018 Cardiology Visit Report Result: Comments: See Note; NOTES: [facility] [address] [place] [address] OFFICE VISIT Date of Service: 07/14/17 MR#: [id number] Acct: [id number] Name: YUMIKO LANDRUM Rep #: [id number] : 1950 Provider: Remigio Lares MD Age/Sex: 66/M Location: [facility] Status: Signed HPI HPI Details: YUMIKO LANDRUM, is a 66 M who presents to the office today for outpatient card iovascular consultation for history of underlying CAD status post LAD PCI. He has been cared for in the past both by the [facility] members (Drs. Griggs and Edwin), at [facility] by Dr. Rosales, and at [facility] by Dr. Maury Veliz. He states he lost saw Dr. Veliz approximately 1 year ago. He is now relocating his care locally. He has a history of underlying CAD. He underwent a previous diagnostic car diac catheterization on 08/11/2005 at [facility]. At that point in time he [...] no significant stenosis. In April 2008, at [facility], he had a repeat diagnostic cardiac catheterization. [...] luminal irregularities. He apparently was transferred to [facility] for further evaluation and care. The [...] an LYNDSEY inhibitor. He believes his former window/distribution clerk remove these medications from ar s medication [...] Prinzmetal angina (Acute) Atherosclerotic heart disease of [place] coronary artery without angina pectoris (Chroni c) [...] affect Assessment AND Plan 1. Atherosclerosis of [place] coronary artery of [place] heart without angina pectoris I25.10 PTCA/RINA to [...] Code Off vis,new,level 4 Diagnoses Atherosclerosis of [place] coronary artery of [place] heart without angina pectoris I25.10 [place] vs. transplanted heart: n ative heart Presence of stent in coronary artery Z95.5 Hyperlipidemia, unspecified hyperlipidemia type E78.5 Hyperlipidemia type: unspecified Essential hypertension I10 Hypertension type: essential hype rtension COPD (chronic obstructive pulmonary disease) J44.9 Coding Level of Care Code Off vis,new,level 4 Diagnoses Atherosclerosis of [place] coronary artery of [place] heart without angina pectoris I 25.10 [place] vs. transplanted heart: [place] heart Presence of stent in coronary artery Z95.5 Hyperlipidemia, unspecified hyperlipidemia type E78.5 Hyperlipidemia type: unspecified Essential hypertension I10 Hypertension type: essential hypertension COPD (chronic obstructive pulmonary disease) J44.9 07/14/17 1558 <Electronically signed by Remigio Lares MD> Date Remigio Lares MD Cosign Signature: Date (if applicable) CC: Adelaida Fraga DO 14-Jul-2017 12 Lead EKG performed by [facility] Result: Comments: See Note; NOTES: [facility] [address] [place] [address] 12 Lead EKG performed by [facility] 07/14/171435 MR#: [id number] Acct: [id number] Name: YUMIKO LANDRUM Rep #: [id number] : 1950 66 From: Remigio Lares MD Attending Dr: Remigio Lares MD Status: DEP [facility] Ordering Dr: Remigio Lares MD Date: 07/14/17 Location: [facility] Sex: M C Admitted: BMS/12 Lead EKG performed by [facility] ECG Report Interpretation Sinus Rhythm Right bundle branch block. ABNORMAL Electronically signed on 07/14/2017 at 17:15 by Remigio Lares 07/14/17 1717 Date Remigio Lares MD CC: Adelaida Fraga DO Date Dictated: 07/14/171435 Date Transcribed: 07/14/171435 Rotary Veneer Machine Operator: PM Signed 04-Jul-2017 TXT - Blood Flow Screening Result: Comments: See Note; NOTES: [facility] Services [address] [place] [address] 07/04/17 0840 MR#: [id number] Acct: [id number] Name: YUMIKO LANDRUM Rep #: [id number] [...] (1.0 or greater). Ordering Physician: Adelaida Fraga [facility] Physician: Adelaida Fraga Performed By: Kayla Kelley, RDLEANNE, RVT 07/04/17 2222 Date Tyrese Garcia MD CC: Adelaida Fraga DO Date Dictated: 07/04/17 0840 Date Transcribed: 07/04/172221 Rotary Veneer Machine Operator: Signed 06-Jun-2017 L/S Spine Min 4 Views Result: Comments: See Note; NOTES: [facility] Imaging Services [address] [place] [address] L/S Spine Min 4 Views MR#: [id number] Acct: [id number] Name: YUMIKO LANDRUM Rep #: [id number] : 1950 M 66 From: Rafael Manley DO PCP: Adelaida Fraga DO Status: REG CLI Study: L/S Spine Min 4 Views Date of Exam: 06/06/17 Exam# [id number] Ordering Dr: Adelaida Fraga DO STUDY: X-RAY [...] Rafael Manley DO at 18:01 EDT Tel [phone], Service support , CC: Adelaida Fraga DO Rotary Veneer Machine Operator: Signed 18-Feb-2017 Ankle min 3 Views Result: Comments: See Note; NOTES: [facility] Services [address] [place] [address] Ankle min 3 Views MR#: [id number] Acct: [id number] Name: YUMIKO LANDRUM Rep #: [id number] OB: 1950 M 66 From: Trevon Carrillo MD PCP: Adelaida Fraga DO Status: REG CLI Study: Ankle min 3 Views Date of Exam: 02/18/17 Exam# [id number] Ordering Dr: Adelaida Fraga DO STUDY: X-RAY [...] Service support , CC: Adelaida Fraga DO Rotary Veneer Machine Operator: Signed 18-Feb-2017 Chest without Contrast Result: Comments: See Note; NOTES: [facility] Services [address] [place] [address] Chest without Contrast MR#: [id number] Acct: [id number] Name: YUMIKO LANDRUM Rep #: [id number] : 1950 M 66 From: Kaitlin Campoverde PCP: Adelaida Fraga DO Status: REG CLI Study: Chest without Contrast Date of Exam: 02/18/17 Exam# [id number] Ordering Dr: Adelaida Fraga DO STUDY: CT [...] Service support , CC: Adelaida Fraga DO Rotary Veneer Machine Operator: Signed 10-Feb-2017 Chest PA and Lateral Result: Comments: See Note; NOTES: [facility] Imaging Services [address] [place] [address] Chest PA and Lateral MR#: [id number] Acct: [id number] Name: YUMIKO LANDRUM Rep #: [id number] : 1950 M 66 From: Chava Fu MD PCP: Adelaida Fraga DO Status: REG CLI Study: Chest PA and Lateral Date of Exam: 02/10/17 Exam# [id number] Ordering Dr: Yola Witt STUDY: X-RAY CHEST [...] , CC: COCO Witt; Adelaida Fraga DO Rotary Veneer Machine Operator: Signed 18-Jan-2017 Chest PA and Lateral Result: Comments: See Note; NOTES: [facility] Imaging Services [address] [place] [address] Chest PA and Lateral MR#: [id number] Acct: [id number] Name: YUMIKO LANDRUM Rep #: [id number] : 1950 M 66 From: Erwin Jiménez MD PCP: Adelaida Fraga DO Status: REG CLI Study: Chest PA and Lateral Date of Exam: 01/18/17 Exam# [id number] Ordering Dr: Yola Witt NP-C STUDY: X-RAY [...] EST Tel , Service support , CC: BAR CAPTAIN-C Yola Witt; Adelaida Fraga DO Rotary Veneer Machine Operator: Signed 11-Apr-2015 Chest PA and Lateral Result: Comments: See Note; NOTES: [facility] Imaging Services [address] [place] [address] Verdana 4d Chest PA and Lateral MR#: [id number] Acct: [id number] Name: YUMIKO LANDRUM Rep #: [id number] : 1950 M 64 From: Stephen Barba MD PCP: Adelaida Fraga DO Status: REG CLI Study: Chest PA and Lateral Date of Exam: 04/11/15 Exam# [id number] Ordering Dr: Adelaida Fraga DO STUDY: X-RAY [...] FACR at 20:20 EST , Service support [phone], RAD/Chest PA and Lateral IMPRESSION: Normal x-ray examination of the chest. No lingular infiltrate is noted on today's examination Electronically Signed: Stephen Barba MD, FACR at 20:20 EST , Service support [phone], CC: Adelaida Fraga DO Rotary Veneer Machine Operator: Signed 11-Apr-2015 Hip min 2 Views Result: Comments: See Note; NOTES: [facility] Imaging Services [address] [place] [address] Verdana 4d Hip min 2 Views MR#: [id number] Acct: [id number] Name: DOMINICKNATHAN QUIÑONEZNI Brittney Brandon Rep #: [id number] : 1950 64 From: Stephen Barba MD PCP: Adelaida Fraga DO Status: REG CLI Study: Hip min 2 Views Date of Exam: 04/11/15 Exam# [id number] Ordering Dr: Adelaida Fraga DO ST UDY: [...] FACR at 20:19 EST , Service support [phone], RAD/Hip min 2 Views IMPRESSION: Normal x-ray examination of the pelvis and hip. Electronically Signed: Stephen Barba MD, FACR 201 07/23/18 at 20:19 EST , Service support [phone], CC: Adelaida Fraga DO Rotary Veneer Machine Operator: Signed 11-Apr-2015 L/S Spine Min 4 Views Result: Comments: See Note; NOTES: [facility] Services [address] [place] [address] Verda 4d L/S Spine Min 4 Views MR#: [id number] Acct: [id number] Name: YUMIKO LANDRUM Rep #: [id number] : 1950 M 64 From: Stephen Barba MD PCP: Adelaida Fraga DO Status: REG CLI Study: L/S Spine Min 4 Views Date of Exam: 04/11/15 Exam# [id number] Ordering Dr: Susannah Fraga ra, DO STUDY: [...] FACR at 20:20 EST , Service support [phone], RAD/L/S Spine Min 4 Views IMPRESSION: M ild degenerative disc disease at L2-3 and L5-S1. Facet arthrosis at L4-5 and L5-S1. Mild dextroscoliosis. Electronically Signed: Stephen Barba MD, FACR at 20:20 EST Tel , Service support [phone], CC: Adelaida Fraga DO Rotary Veneer Machine Operator: Signed 27-Aug-2014 Chest PA and Lateral Result: Comments: See Note; NOTES: [facility] Imaging Services [address] [place] [address] Radiology Report MR#: [id number] Acct: [id number] Name: YUMIKO LANDRUM Rep #: [id number] : 1950 M 63 From: Wilfredo Alvarado MD PCP: Adelaida Fraga DO Status: REG CLI Study: Chest PA and Lateral Date of Exam: 08/27/14 Exam# [id number] Ordering Dr: Adelaida Fraga DO STUDY: X- [...] Wilfredo Alvarado MD at 15:46 EDT Tel [phone], Service support [phone], 0079 RAD/Chest PA and Lateral IMPRESSION: Inc reased markings in the lingular segment of the left upper lobe suggestive of early infiltrate. Followup is recommended. Electronically Signed: Wilfredo Alvarado MD at 15:46 EDT Tel [phone], Service support [phone], CC: Adelaida Fraga DO Rotary Veneer Machine Operator: Signed 02-Jul-2013 12 Lead Electrocardiogram Result: Comments: See Note; NOTES: [facility] Cardiovascular Services [address] [place] [address] 12 Lead EKG 06/17/13 1938 MR#: [id number] Acct: [id number] Name: CITLALLI LANDRUM Rep #: [id number] : 1950 62 From: Remigio Lares MD [...] ECG Confirmed by GERDA CALVO, REMIGIO ([id number]), news video editor MADELYN RUBALCAVA ([id number]) on 2013 10:04:35 AM Referred By: Jose Fernando Confirmed By:REMIGIO LARES MD CC: Adelaida byrd DO Date Dictated: 06/17/131937 Date Transcribed: 06/17/131937 Rotary Veneer Machine Operator: Signed 30-Jun-2013 Emergency Department Summary Result: Comments: See Note; NOTES: [facility] Medical Records Department [address] [place] [address] Emergency Department Summary MR#: [id number] Acct: [id number] Name: YUMIKO LANDRUM Rep #: [id number] : 1950 62 From: Jose Fernando MD PCP: Adelaida Fraga DO Status: DEP ER DATE OF SERVICE: 06/28/2013 CHIEF COMPLAINT: Chest pain. HISTORY OF PRESENT ILLNESS: The patient states over the past 8 hours, he has had intermittent discomfort in the chest of burning to ache similar to angina. He had an UT, he thinks, back in 2011 when he had a stent placed by Dr. Mariah carr in [facility]. He has been off his blood [...] sensation, cranial nerve function and treatment. [facility] DEPARTMENT COURSE: Portable one-view chest [...] a 3. He agreed to go to [facility] where his window/distribution clerk is in case he needs another cath and stent. He was stable for transfer. [facility]. Trujillo as lead generation representative accepted the patient after being advised of all the above through the transfer care team assistant. He did not want to talk to me. The patient is stable for transfer, with him. DIAGNOSES: 1. Chest pain. 2. Unstable angina. MD Abdullahi Vasquez C: Adelaida Fraga DO T: NTS JOB: [id number] 06/30/13 0021 <Electronically signed by Jose Fernando MD> Date Jose Fernando MD CC: Adelaida Fraga DO Date Dictated: 06/28/13 2255 Date Transcribed: 06/28/132254 Rotary Veneer Machine Operator: Signed 28-Jun-2013 Chest 1 View (Portable) Result: Comments: See Note; NOTES: [facility] Services [address] [place] [address] Radiology Report MR#: [id number] Acct: [id number] Name: YUMIKO LANDRUM Rep #: [id number] : 1950 M 62 From: Wilfredo Alvarado MD PCP: Adelaida Fraga DO Status: DEP ER Study: Chest 1 View (Portable) Date of Exam: 06/28/13 Exam# [id number] Ordering Dr: Jose Fernando MD STUDY: X-RAY [...] Wilfredo Alvarado MD at 9:06 EDT Tel [phone], Service support [phone], CC: Adelaida Fraga DO; Jose Fernando MD Rotary Veneer Machine Operator: Signed Immunization Name Dates Details Influenza vaccine, split, 3yrs &>, IM (AFLURIA) on: Nov-2017 Influenza, inj, MDCK, preservative free, q.valent on: 07-Dec-2016 Comments: Site: Lot #: [id number] Family History Unknown Family Member Name Dates [...] Active 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 [place], [place], [id number] Absolute Lymph 1.76 {X10_3/ul} (Normal) Range: 0.83-4.51 [...] 4.6-6.2 WBC 5.7 K/mm3 (Normal) Range: 4.4-11.0 40-Jsv-999478:31 Comprehensive Metabolic Profil Comments: [facility] [address] [place], [place], [id number] ; fu 10-16 DF GAP 9 (Normal) [...] A.D.A. criteria.Please note revised GLUCOSE reference range bygjkyodx20/02/2018. 77-Kby-668487:31 Hemoglobin A1c Comments: [facility] [address] [place], [address] HGB A1C 6.0 % (Normal) Range: 4.2-6.3 08-Zaf-932460:31 Lipid Profile Comments: [facility] [address] [place], [address] VLDL 24 mg/dL (Normal) Range: 5-40 LDL [...] 200-240 mg/dL Borderline >240 mg/dL High Risk 05-Cxb-776306:31 PSA,Total - Annual Screen Comments: [facility] [address] [place], [place], [address] PSA,TOT SCREEN 0.50 ng/mL (Normal) Range: 0.00-4.00 Comments: This test was performed using the TPSA assay method for the[employer] chemistry system. Values obtained with differentassay methods cannot be used interchangably.When changing PSA assays in the course of monitoring apatient, additional sequential testing should be carriedout to confirm baseline values. 43-Dsp-205709:42 Aspergillus Antibodies Comments: [facility] (refer to report for specific site)refer to report for address and phone number Asp. niger Negative (Normal) Asp. flavus Negative (Normal) Asp. fumigatus Negative (Normal) 56-Yxz-361113:42 Immunoglobulin E Comments: [facility] (refer to report for specific site)refer to report for address and phone number IMMUNO E 19 {IU/mL} (Normal) Range: 0-100 25-Ske-584801:42 Immunoglobulin G Comments: [facility] (refer to report for specific site)refer to report for address and phone number IMMUNO G 702 mg/dL (Normal) Range: 700-1600 Comments: Performed at: [address] [id number] Director: Joseph Velez MD, Phone: [phone] at: [address] [address]Lab Director: Hugo Britt PhD, Phone: [phone] 57-Zeo-758477:42 Miscellaneous Lab Comments: Comments: [id number] CASTRO,RTTest(s) [facility]: [facility] [address]osfnh[address]275 [place], [address] Procedure MISC Comments: TEST RESULT UNITS REFERENCE INTERVALA. fumigatus #1 Abs NEGATIVE NEGATIVE TESTING PERFORMED AT [facility]. O LAB (Normal) RIGINAL REPORT ON FILE IN LAB CONTAINS ADDITIONAL TEST SITE INFORMATION. TEST 2-Otx-834829:28 Acetylcholine Receptor Comments: Has Patient had Radioactive Injection for X-ray?: [facility] (refer to report for specific site)refer to report for address and phone number ACTYL [id number] < 0.03 nmol/L (Normal) Range: 0.00-0.24 Comments: Negative: 0.00 - 0.24 Borderline: 0.25 - 0.40 Positive: > 0.40Performed at: [place] [address] Gran[address] C [id number] Director: Joseph Velez MD, Phone: [phone] 3-Xfg-764767:28 BUN 9 mg/dL (Normal) Comments: [facility] [address] [place], [address] Range: 7-18 0-Qlf-243128:28 Serum Creatinine AND GFR Comments: [address] [place], [address] EST GFR - AA 100 mL/min (Normal) Comments: GFR Calc EST GFR 83 mL/min (Normal) Comments: Non- GFR Calc CREAT,SERUM 0.97 mg/dL (Normal) Range: 0.70-1.30 Comments: The validity of the calculated GFR AND GFRAA in patients over70 years has not been determined. Clinical correlation isessential. 95-Rme-331874:13 Culture, Fungus 8482 Comments: [place] [address] [place], [address] CUF See Note Comments: Cu,Dvkzsm4175 TESTING PERFORMED AT [facility]. ORIGINAL REPORT ON FILE IN LAB CONTAINS ADDITIONAL TEST SITE INFORMATION. (Normal) ORGANISM 1: Barron albicansAmount Growth Growth ORGANISM 2: Penicillium speciesAmount Growth Growth 64-Idn-788754:13 Culture, Sputum Comments: [place] [address] [place], [address] CUSP See Note (Normal) Comments: Gram StainAcceptable Specimen? Yes (<25 Epithelial cells per/lpf) Gram Stain 2+ White Blood Cells 2+ Epithelial cells 4+ Gram positive cocci 4+ Gram positive rods Resp. CultureNo Haemoph ilus, Streptococcus pneumoniae, beta-hemolytic Streptococcus or Staphylococcus aureus isolated. ORGANISM 1: Yeast Like OrganismAmount Growth Rare ORGANISM 2: Mixed FloraAmount Growth 3+ :59 CBC W/Diff, Automated Comments: [facility] Q[address]wk20[address] [place], [address] Absolute Lymph 1.98 {X10_3/ul} (Normal) Range: 0.83-4.51 [...] 4.6-6.2 WBC 10.8 K/mm3 (Normal) Range: 4.4-11.0 89-Iig-127799:59 Comprehensive Metabolic Profil Comments: [facility] Ajpwqsaamw[address] [place], [place], [address] GAP 10 (Normal) Range: 5-15 CO2 27.0 [...] A.D.A. criteria.Please note revised GLUCOSE reference range yosmkcpmg92/02/2018. 83-Ive-243919:59 Hemoglobin A1c Comments: [facility] [address]fax[address] [place], [place], [address] HGB A1C 6.2 % (Normal) Range: 4.2-6.3 58-Nmz-058144:59 Lipid Profile Comments: [facility] Exspxp[address]ohi[address] [place], [place], [address] VLDL 13 mg/dL (Normal) Range: 5-40 LDL [...] 200-240 mg/dL Borderline >240 mg/dL High Risk 15-Ipr-624324:59 Microalb:Creat Ratio,Random UR Comments: [facility] Wcouwexrpw[address] [place], [place], [address] MALB:CREAT 10.1 {mg/g_CRE} (Normal) MICROALBUMIN,UR 5.6 mg/L (Normal) UR CREAT 55.70 mg/dL (Normal) 3-Rof-769914:45 Basic Metabolic Profile (BMP) Comments: [facility] S[address]ujybxr[address] [place], [place], [address] GAP 6 (Normal) Range: 5-15 CO2 29.0 [...] Please note revised GLUCOSE reference range /02/2018. 1-Urr-704964:45 Lipid Profile Comments: [facility] [address] [place], [place], [address] VLDL 22 mg/dL (Normal) Range: 5-40 LDL [...] 200-240 mg/dL Borderline >240 mg/dL High Risk 0-Fuu-547610:45 Liver Profile Comments: [facility] O[address]emeod[address] [place], [place], [address] D BILI 0.13 mg/dL (Normal) Range: 0.00-0.30 T BILI 0.50 mg/dL (Normal) Range: 0.20-1.00 ALT 27 U/L (Normal) Range: 16-61 ALK P 53 U/L (Normal) Range: 45-117 AST 20 U/L (Normal) Range: 15-37 GLOB 4.3 g/dL (Abnormal) Range: 2.2-4.2 ALB 3.0 g/dL (Abnormal) Range: 3.2-5.0 T PROT 7.3 g/dL (Normal) Range: 6.4-8.2 64-Scu-658851:31 Basic Metabolic Profile (BMP) Comments: [facility] Ognysvszuu[address] [place], [place], [address] GAP 4 (Abnormal) Range: 5-15 CO2 27.0 [...] A.D.A. criteria.Please note revised GLUCOSE reference range nspmiombz04/02/2018. 87-Mwq-237735:31 CBC-Complete Blood Cnt No Diff Comments: [facility] Rfhabazmau[address] [place], [place], [address] MPV 8.7 fL (Normal) Range: 6.2-12.0 PLT [...] 4.6-6.2 WBC 9.6 K/mm3 (Normal) Range: 4.4-11.0 55-Hpx-158589:31 Partial Thromboplast Time Comments: [place] [address] [place], [address] PTT 26.1 s (Normal) Range: 24.1-36.2 96-Wge-996554:31 Prothrombin Time w/INR Comments: [address] [place], [address] INR 0.9 (Normal) PROTIME 12.5 s (Normal) Range: 11.7-14.9 :00 Culture, Fungus 8482 Comments: [address] [place], [address] CUF See Note Comments: Cu,Ybqzhm3746 TESTING PERFORMED AT [facility]. ORIGINAL REPORT ON FILE IN LAB CONTAINS ADDITIONAL TEST SITE INFORMATION. (Normal) ORGANISM 1: Barron albicansAmount Growth Growth ORGANISM 2: Penicillium speciesAmount Growth Growth ORGANISM 3: Aspergillus speciesAmount Growth Growth 40-Feu-06591:00 Culture, Sputum Comments: [address] [place], [id number] CUSP See Note (Normal) Comments: Gram StainAcceptable Specimen? Yes (<25 Epithelial cells per/lpf) Gram Stain 1+ White Blood Cells Rare Epithelial cells 4+ Gram positive rods 1+ Gram negative rods Resp. Culture Mixed nor mal respiratory ashkan. No Haemophilus, Streptococcus pneumoniae, beta-hemolytic Streptococcus or Staphylococcus aureus isolated. 50-Uco-871810:00 Culture, Sputum Comments: [address] [place] [place], [address] CUSP See Note (Normal) Comments: Gram StainAcceptable Specimen? Yes (<25 Epithelial cells per/lpf) Gram Stain 1+ White Blood Cells Rare Epithelial cells 3+ Gram positive cocci Resp. CultureMixed normal respiratory ashkan. No Haemophilus, Streptococcus pneumoniae, beta-hemolytic Streptococcus or Staphylococcus aureus isolated. 44-Rbo-518911:44 TESTOSTERONE FREE (71809) Comments: PATIENT NOT FASTINGPERFORMED BY: [address] [id number] BY: [address] [id number] Free Testosterone(Direct) 2.6 pg/mL (Abnormal) Range: 6.6-18.1 41-Xkr-034552:44 HEPATITIS C ANTIBODY Comments: PATIENT NOT FASTINGPERFORMED BY: [address] [id number] BY: [address] [id number] ([address]) Hep C Virus Ab 0.1 {s/co_ratio} (Normal) Range: 0.0-0.9 Comments: Negative: < 0.8 Indeterminate: 0.8 - 0.9 Positive: > 0.9 . The CDC recommends that a positive HCV antibody result be followed up with a HCV Nucleic Acid Amplification test (186029). 98-Vfn-305683:44 CBC W/AUTO DIFF WBC Comments: PATIENT NOT FASTINGPERFORMED BY: [address] [id number] BY: [address] [id number] (474[address]) Immature Grans (Abs) 0.0 {x10E3/uL} (Normal) Range: [...] 4.14-5.80 WBC 6.1 {x10E3/uL} (Normal) Range: 3.4-10.8 71-Kkz-093096:44 METABOLIC PANEL, Comments: PATIENT NOT FASTINGPERFORMED BY: CB [facility] Msfody8984 [facility] [id number] BY: BN [facility] [address] [id number] COMPREHENSIVE (40967) ALT (SGPT) 17 [iU]/L (Normal) Range: 0-44 [...] 8-27 Glucose 102 mg/dL (Abnormal) Range: 65-99 24-Kwn-529138:15 HgA1C , Office (56049) HgA1C , Office 5.7 % (Normal) Range: 4.6 - 7.1 87-Dfo-970087:30 CBC W/Diff, Automated Comments: [facility] [address] [place], [place], [address] Absolute Lymph 1.76 {X10_3/ul} (Normal) Range: 0.83-4.51 [...] 4.6-6.2 WBC 6.7 K/mm3 (Normal) Range: 4.4-11.0 18-Soo-601541:30 Comprehensive Metabolic Profil Comments: [facility] [address] [place], [place], [address] GAP 9 (Normal) Range: 5-15 CO2 25.0 [...] 7-18 GLU 78 mg/dL (Normal) Range: 70-110 15-Yit-886612:30 Culture, Urine Comments: [facility] [address] [place], [address] CUUR See Note (Normal) Comments: Urine CultureCulture exhibits no growth. 01-Uto-255383:30 Lipid Profile Comments: [facility] [address] [place], [address] VLDL 19 mg/dL (Normal) Range: 5-40 LDL [...] 200-240 mg/dL Borderline >240 mg/dL High Risk 97-Muu-799913:10 Rapid Strep Test, Office (88818) Comments: Negative Rapid Strep Test, Office Negative (Normal) 81-Jfg-32038:51 THROAT CULTURE (29529) Comments: PATIENT NOT FASTINGPERFORMED BY: [facility] [facility] [id number] Information: SRC: Result 1 RRF (Normal) Comments: Routine respiratory ashkan Upper Respiratory Culture Final report (Normal) 45-Hyx-367438:02 Rapid Flu (73335 x 2) Comments: Negative Influenza A Ag Negative (Normal) 32-Xxf-736050:45 URINE WARREN CULTURE-IDENTIFICATN Comments: PERFORMED BY: [facility] [id number] Information: SRC: (56949) Result 1 NG36 (Normal) Comments: No growth in 36 - 48 hours. Urine Culture,Comprehensive Final report (Normal) 88-Caj-785368:02 Urinalysis, Office (35392) UA - LEUKOCYTE ESTERASE Negative (Normal) UA - NITRITE Negative (Normal) URINE UROBILINGN MASSIEL TIMED Normal mg/dL (Normal) UA - PROTEIN Negative mg/dL (Normal) UA - PH 7 (Normal) UA - BLOOD Negative (Normal) UA - SPECIFIC GRAVITY 1.020 (Normal) UA - KETONES Negative mg/dL (Normal) UA - BILIRUBIN Negative (Normal) UA - GLUCOSE Negative (Normal) 71-Yfv-691628:22 CBC W/Diff, Automated Comments: [facility] [address] [place], [place], [address] Absolute Lymph 1.50 {X10_3/ul} (Normal) Range: 0.83-4.51 [...] 4.6-6.2 WBC 6.2 K/mm3 (Normal) Range: 4.4-11.0 13-Ehc-031602:22 Comprehensive Metabolic Profil Comments: [facility] Zacnjplvuk1168 [facility] [address] [place], [place], [address] ; will review opn 11/10 GAP 7 [...] 7-18 GLU 104 mg/dL (Normal) Range: 70-110 41-Tem-932840:22 Hemoglobin A1c Comments: [facility] Wzfkgtyfjl0587 [facility] [place], [address] HGB A1C 5.6 % (Normal) Range: 4.2-6.3 01-Sqh-780077:22 Immunofixation, Serum Comments: [facility] (refer to report for specific site)refer to report for address and phone number PAULA RESULT,S Comment (Normal) Comments: No monoclonality detected. IMMUNOGL M 53 mg/dL (Normal) Range: 20-172 IMMUNO A 169 mg/dL (Normal) Range: 61-437 IMMUNO G 692 mg/dL (Abnormal) Range: 700-1600 22-Mxd-696753:22 [place] [employer] Comments: [facility] (refer to report for specific site)refer to report for address and phone number KAPPA/LAMBDA % 1.17 (Normal) Range: 0.26-1.65 Comments: Performed at: [address] [id number] Director: Hugo Britt PhD, Phone: [phone] FR LAMBDA LT CH 12.3 mg/L (Normal) Range: 5.7-26.3 FR KAPPA LT CHN 14.4 mg/L (Normal) Range: 3.3-19.4 14-Jkt-363013:22 Lipid Profile Comments: [facility] X[address]ufy[address] [place], [address] VLDL 20 mg/dL (Normal) Range: [...] 200-240 mg/dL Borderline >240 mg/dL High Risk 12-Goe-020686:22 Microalb:Creat Ratio,Random UR Comments: [facility] [address]vlvafme[address] [place], [place], [address] ; will review on 11/10 MALB:CREAT 5.6 {mg/g_CRE} (Normal) MICROALBUMIN,UR 7.2 mg/L (Normal) UR CREAT 128.00 mg/dL (Normal) 77-Ras-305606:22 PSA,Total - Annual Screen Comments: [facility] [address] [place], [address] PSA,TOT SCREEN 0.63 ng/mL (Normal) Range: 0.00-4.00 Comments: This test was performed using the TPSA assay method for iQiyi chemistry system. Values obtained with differentassay methods cannot be used interchangably.When changing PSA assays in the course of monitoring apatient, additional sequential testing should be carriedout to confirm baseline values. 75-Ukq-673126:07 CBC W/Diff, Automated Comments: [facility] S[address] [place], [address] Absolute Lymph 1.42 {X10_3/ul} (Normal) Range: 0.83-4.51 [...] Range: 4.4-11.0 :07 Comprehensive Metabolic Profil Comments: [facility] Tw[address]et[address]cy[address] [place], [place], [address] GAP 8 (Normal) Range: 5-15 CO2 27.0 [...] 7-18 GLU 104 mg/dL (Normal) Range: 70-110 99-Nnw-181720:07 Hemoglobin A1c Comments: [facility] [address]se[address] [place], [place], [address] HGB A1C 5.6 % (Normal) Range: 4.2-6.3 79-Sop-986822:07 PAULA + Protein Elect, Serum Comments: Is Patient Fasting? [facility] (refer to report for specific site)refer to report for address and phone number NOTE: Comment (Normal) Comments: Protein electrophoresis scan will follow via computer,mail, or dredge pipe operator delivery.Performed at: [address] [id number] Director: Hugo Britt PhD, Phone: [phone] PAULA RESULT,S Comment (Normal) Comments: No monoclonality detected. A/G RATIO 1.2 (Normal) Range: 0.7-1.7 GLOBULIN, TOTAL 3.0 g/dL (Normal) Range: 2.2-3.9 M-SPIKE g/dL (Normal) Comments: Not Observed GAMMA GLOBULIN 0.7 g/dL (Normal) Range: 0.4-1.8 BETA GLOBULIN 1.1 g/dL (Normal) Range: 0.7-1.3 HMOMI-9-IMHA 0.8 g/dL (Normal) Range: 0.4-1.0 JFQCJ-3-BMFU 0.3 g/dL (Normal) Range: 0.0-0.4 ALBUMIN 3.3 g/dL (Normal) Range: 2.9-4.4 IMMUNOGL M 53 mg/dL (Normal) Range: 20-172 IMMUNO A 177 mg/dL (Normal) Range: 61-437 IMMUNO G 761 mg/dL (Normal) Range: 700-1600 PROTEIN,TOTAL 6.3 g/dL (Normal) Range: 6.0-8.5 40-Hin-937205:07 Lipid Profile Comments: [facility] [address]egzirb[address]64 [address] [facility] [place]. [place], [place], [address] VLDL 21 mg/dL (Normal) Range: 5-40 LDL [...] 200-240 mg/dL Borderline >240 mg/dL High Risk 14-Xkl-477020:01 CBC W/Diff, Automated Comments: [facility] [address]fcjf[address] [place], [address] Absolute Lymph 1.62 {X10_3/ul} (Normal) [...] 4.6-6.2 WBC 7.6 K/mm3 (Normal) Range: 4.4-11.0 46-Hss-074552:01 Comprehensive Metabolic Profil Comments: [facility] Aokhbpgpjl[address] [place], [place], [address] ; has apt today GAP 7 (Normal) [...] 7-18 GLU 96 mg/dL (Normal) Range: 70-110 58-Wba-234578:01 Lipid Profile Comments: [facility] [address]ff[address] [place], [place], [address] VLDL 11 mg/dL (Normal) Range: 5-40 LDL [...] 200-240 mg/dL Borderline >240 mg/dL High Risk 59-Nih-182079:01 Lipoprotein A 369 nmol/L (Abnormal) Comments: [facility] [...] genetic factors on Lp(a) across ethnicities.Performed at: [facility] [employer] [id number] Director: Hugo Britt PhD, Phone: [phone] 12-Mew-339168:56 HgA1C , Office (90193) HgA1C , Office 5.6 % (Normal) Range: 4.6 - 7.1 1-Lfk-276698:19 ANCA Panel Comments: PATIENT NOT FASTINGPERFORMED BY: [facility]Co[facility] [place] [address]87 [facility] [id number] BY: [employer] [id number] Atypical pANCA <1:20 {titer} Comments: The atypical [...] follow up testing ofpositive sera with both AR-3 and MPO-ANCA enzyme immunoassays. Asmany as 5% serum samp les are positive only by EIA.Ref. AM J Clin Pathol 1999;111:507-513. Cytoplasmic (C-ANCA) <1:20 {titer} (Normal) Antiproteinase 3 (AR-3) Abs <3.5 U/mL (Normal) Range: 0.0-3.5 Antimyeloperoxidase (MPO) Abs <9.0 U/mL (Normal) Range: 0.0-9.0 :19 Antinuclear Antibodies Comments: PATIENT NOT FASTINGPERFORMED BY: [address] [id number] BY: [facility]6370 [facility] [id number] Direct JOHN Direct Negative (Normal) 4-Hra-480702:1 C-Reactive Protein, 2.1 mg/L (Normal) Comments: PATIENT NOT FASTINGPERFORMED BY: [address] [id number] BY: [place] [address]27070 [facility] [id number] Quant Range: 0.0-4.9 :19 Rheumatoid Arthritis Comments: PATIENT NOT FASTINGPERFORMED BY: [address] [id number] BY: [facility]6370 [facility] [id number] Factor RA Latex Turbid. 7.8 {IU/mL} Range: 0.0-13.9 (Normal) Sedimentation 8 mm/h (Normal) Comments: PATIENT NOT FASTINGPERFORMED BY: [address] [id number] BY: [place] [address]27070 [facility] [id number] :19 Rate-Westergren Range: 0-30 Thyroid Peroxidase (TPO) 8 {IU/mL} (Normal) Comments: PATIENT NOT FASTINGPERFORMED BY: [address] [id number] BY: [place] [address]70 [facility] [id number] :19 Ab Range: 0-34 :19 Thyroxine (T4) Free, Comments: PATIENT NOT FASTINGPERFORMED BY: BN [facility] [id number] BY: [facility]6370 [facility] [id number] Direct, S T4,Free(Direct) 1.11 ng/dL Range: 0.82-1.77 (Normal) Triiodothyronine,Free,Seru 2.5 pg/mL (Normal) Comments: PATIENT NOT FASTINGPERFORMED BY: [address] [id number] BY: [facility]6370 [facility] [id number] 2:19 m Range: 2.0-4.4 TSH 3.450 {uIU/mL} Comments: PATIENT NOT FASTINGPERFORMED BY: [address] [id number] BY: [facility]6370 [facility] [id number] 2:19 (Normal) Range: 0.450-4.500 5-Fez-527270:30 Pathology Report Comments: PERFORMED BY: [facility]to Bzptw75738 [facility] [id number] Information: [id number] See MATER Comments: Material submitted: .FOREHEAD SHAVE [...] IN CASSETTE(S) A./CORCOR/CORPa thologist provided ICD-10:D48.5, L90.9CPT .893941 :22 TESTOSTERONE FREE (29618) Comments: PATIENT WAS FASTINGPERFORMED BY: [employer] [facility] [id number] BY: [employer] [id number] Free Testosterone(Direct) 2.5 pg/mL (Abnormal) Range: 6.6-18.1 51-Lbl-16230:22 VITAMIN B-12 (CYANOCOBALAMIN) Comments: PATIENT WAS FASTINGPERFORMED BY: [employer] [facility] [id number] BY: Teal [employer] [id number] (25529) Vitamin B12 638 pg/mL (Normal) Range: 211-946 91-Qli-67457:22 CBC W/AUTO DIFF WBC Comments: PATIENT WAS FASTINGPERFORMED BY: [place] [facility]ExamifyVirt[facility] VoorheesTvvlwb0402 [facility] [id number] BY: [facility] [id number] Inf ormation: NURSE DRAW (94229) Immature Grans (Abs) 0.0 {x10E3/uL} (Normal) Range: [...] 4.14-5.80 WBC 7.3 {x10E3/uL} (Normal) Range: 3.4-10.8 46-Pab-43512:22 METABOLIC PANEL, Comments: PATIENT WAS FASTINGPERFORMED BY: LabExamifyVirtua VoorheesEqqwxc5324 [facility] [id number] BY: [facility] [id number] COMPREHENSIVE (24717) ALT (SGPT) 12 [iU]/L (Normal) Range: 0-44 [...] Glucose, Serum 100 mg/dL (Abnormal) Range: 65-99 37-Xih-27765:52 CBC W/Diff, Automated Comments: [facility] Odwjmaegba[address] [place], [place], [address] Absolute Lymph 1.73 {X10_3/ul} (Normal) Range: 0.83-4.51 [...] 4.6-6.2 WBC 6.0 K/mm3 (Normal) Range: 4.4-11.0 38-Biv-75734:52 Comprehensive Metabolic Profil Comments: [facility] H[address]wqtcjlk8460 [place], [address] GAP 6 (Normal) Range: 5-15 CO2 26.0 [...] (Normal) Range: 70-110 :52 Hemoglobin A1c Comments: [facility] [address] [place], [place], [address] HGB A1C 5.6 % (Normal) Range: 4.2-6.3 :52 Lipid Profile Comments: [facility] [address]zh[address]jluk[address] [place], [address] VLDL 21 mg/dL (Normal) Range: [...] High Risk :52 Microalb:Creat Ratio,Random UR Comments: [facility] [address] [place], [place], [address] MALB:CREAT 9.1 {mg/g_CRE} (Normal) MICROALBUMIN,UR 9.0 mg/L (Normal) UR CREAT 99.50 mg/dL (Normal) :52 PSA,Total - Annual Screen Comments: [facility] Fqtazeftcm[address] [place], [place], [address] PSA,TOT SCREEN 0.51 ng/mL (Normal) Range: 0.00-4.00 Comments: This test was performed using the TPSA assay method for i[employer]iyi chemistry system. Values obtained with differentassay methods cannot be used interchangably.When changing PSA assays in the course of monitoring apatient, additional sequential testing should be carriedout to confirm baseline values. COLON BIOPSY (CHOOSE See Note (Normal) Comments: [facility] [address]cfdduzc[address] [place], [place], [address] :45 SITE) Comments: Patient: YUMIKO LANDRUM : 1950 (64/M) Acct Num: [id number] Phys: Hugo Bullock Unit Num: [id number] Loc: LABSPEC Specimen: [id number] Received: 09/11/151646 Spec Type: C OLON BX [...] in one cassette. / Heraclio 09/11 TC:1 CPT:19090 x2 HEADER OPERATION: Colonoscopy with biopsy PRE-OP DIAGNOSIS: Screening/polyp TISSUE SUBMITTED: A - Polyp cecum, R/O adenoma, B - Polyp sigmoid, R/O adenoma MICROSCOP IC DESCRIPTION Slides are reviewed. MICROSCOPIC DIAGNOSIS A. Polyp cecum, biopsy: Fragments of tubular adenoma. B. Polyp sigmoid, biopsy: Fragments of tubular adenoma. IRON:momo 09/15/15 Signed Pamella Son 09/15/15 <signature on file> :37 CBC W/Diff, Automated Comments: [facility] Vyuxtjmokp[address] [place], [address] ; noon-emergent till apt Absolute [...] 4.6-6.2 WBC 6.5 K/mm3 (Normal) Range: 4.4-11.0 38-Yse-200793:37 Comprehensive Metabolic Profil Comments: [facility] [address]npfpfoo[address] [place], [place], [address] GAP 6 (Normal) Range: 5-15 CO2 27.0 [...] <126 mg/dLsuggests IMPAIRED HOMEOSTASIS per A.D.A. criteria. 46-Vxr-303413:37 Hemoglobin A1c Comments: [facility] [address]jvvzkfbz5[address] [place], [address] HGB A1C 5.6 % (Normal) Range: 4.2-6.3 28-Vat-864394:37 Lipid Profile Comments: [facility] [address]wkpnqnyp6414 [place], [address] VLDL 17 mg/dL (Normal) Range: [...] 200-240 mg/dL Borderline >240 mg/dL High Risk 4-Thv-466055:12 Factor II, DNA Analysis Comments: [facility] (refer to report for specific site)refer to report for address and phone number COMMENT Comment (Normal) Comments: Genetic Counselors are available for health care providersto discuss results at [phone] ([phone]).Methodology:DNA analysis of the Factor II gene was performed by PCRamplification followed by restric tion analysis. Thediagnostic sensitivity is >99% for both. All the tests mustbe combined with clinical information for the most accurateinterpretation. Molecular-based testing is highly accurate,but as in any laboratory test, diagnostic errors may occur.Poort SR, et al. Blood. 1996; 88:1025-7218.Diallo EA. Circulation. 2004; 110:e15-e18.Bobby I, et al. Arterioscler Thromb Vasc Biol. 1999;19:700 -703.Lance Shea, Chente Cooper, Shakeel Delgado, Xiomara Maharaj, Matilde Benjamin, PhDPerformed at: TG - [facility] [address] [place], [place] [id number] [place]: Vilma Butterfield MD, Phone: [phone] FACTOR II,DNA Comment (Normal) Comments: NEGATIVENo mutation identified.Comment:A point mutation (T63360U) in the factor II (prothrombin)gene is the [...] individual mutations. This assaydetects only the prothrombin A30134J mutation and doesnot measure genetic abnormalities elsewhere i n thegenome. Other thrombotic risk factors may be pursuedthrough systematic clinical laboratory analysis. Thesefactors include the R506Q ([place]) mutation in the Factor Vgene, plasma homocysteine levels , as well as testing fordeficiencies of antithrombin III, protein C and protein S. 74-Crt-38269:42 Miscellaneous Comments: Comments: [id number],PLASMA,BLUETest(s) Ordered: [id number],PLASMA,[facility] [address] [place], [address] Lab Procedure MISC Comments: TEST RESULT UNITS [...] 0.0-20.0 - Time (Normal) Comments: Performed at: [facility] LabCo[address] [id number] Director: Joseph Velez MD, Phone: [phone] F e b - 2 0 1 6 9 : 4 2 :34 CBC W/Diff, Automated Comments: [facility] V[address]wcl[address] [place], [place], [id number] Absolute Lymph 1.34 {X10_3/ul} (Normal) Range: 0.83-4.51 [...] (Normal) Range: 4.4-11.0 :34 Comprehensive Comments: Comments: [id number],NIIDERICK,[facility] [address] [place], [address] ; apt today Metabolic Profil GAP 8 [...] for health careproviders to discuss results at [phone] (0938).Methodology:DNA analysis of the Factor V gene was [...] Beal, PhDBette lugo, PhDKelly Benjamin, PhDPerformed at: [address] [id number] Director: Joseph Velez MD, Phone: [phone] at: [facility] GIB5134 [place], [place] [id number] Director: Vilma Butterfield MD, Phone: [phone] FACTOR V LEIDEN Comment (Normal) Comments: Result: [...] in the workup for venous thrombosis include [id number] mutation in the factor II (prothrombin) gene,protein S and C deficiency, and antithrombin deficiencies.Anticardiolipin antibody and lupus anticoagu lant analysismay be appropriate for certain patients, as well ashomocysteine levels.Contact your local [facility] for information on how to orderadditional testing if desired. 20-Mmb-33228:34 Hemoglobin A1c Comments: [facility] [address]jo[address] [place], [place], [address] HGB A1C 5.6 % (Normal) Range: 4.2-6.3 :34 Lipid Profile Comments: Comments: [id number],[facility] [address]xkdivzry[address] [place], [address] VLDL 17 mg/dL (Normal) Range: [...] High Risk :34 Miscellaneous Lab Comments: Comments: [id number],ABRAZO CENTRAL CAMPUSTest(s) Ordered: [id number] Medical Center – [facility] Rntexpsaui[address] [place], [place], [id number] Procedure MISC Comments: TEST RESULT UNITS REFERENCE [...] anticoagulant is not de tected. aCL and K7TE2ilkstqquxx are normal.ANTIPHOSPHOLIPID SYNDROME ASSESSMENT SUMMARY-No evidence of a lupus anticoagulant, B2GP1 or aCLantibodies. As antibody titers may fluctuate with time,repeat te sting may be indicated if antiphospholipid syndromeis suspected.ANTIPHOSPHOLIPID SYNDROME ASSESSMENT DEFINITIONS-aCL- anticardiolipin (antibodies to cardiolipin); V2VZ7-btqstwbkke to Beta-2 Glycoprotein 1; LA- lupus anticoagulant(which is identified with the dRVVT and/or hexagonalphospholipid neutralization assays); aPL- antibodies toprotein/phospholipid complexes such as LA, aCL, and S2OW7pkkxtxcnsk; APS- antiphospholipid syndrome; DTI-directthrombin inhibitors.-MEDICAL CODER:For questions regarding panel interpretation, please contactHalle Arrington [...] Mathews et al. J Thromb Haemost. 2009; 7(10):8075-1034.(2) Tyrone S et al. J Thromb H aemost. 2006;4(2):295-306.(3) Keith DA et al. Blood. 2007;110(9): 1411-7100. [facility] ORIGINAL REPORT ON FILE IN [...] Range: 58-150 :54 CBC W/Diff, Automated Comments: [facility] Y[address]cljtk[address] [place], [address] Absolute Lymph 1.61 {X10_3/ul} (Normal) [...] 4.6-6.2 WBC 7.1 K/mm3 (Normal) Range: 4.4-11.0 30-Zxu-667753:54 Comprehensive Metabolic Profil Comments: [facility] [address]frj[address] [place], [address] GAP 7 (Normal) Range: 5-15 [...] (Normal) Range: 70-110 :54 Lipid Profile Comments: [facility] Qtaodteins7865 [facility] [place], [address] ; apt today VLDL 19 [...] :55 Comprehensive Metabolic Profil Comments: Test performed at:[facility] [address] [place] [address] GAP 7 (Normal) Range: 5-15 [...] Comments: Please note revised CREATININE reference range owsswfrev55/22/2015. BUN 15 mg/dL (Normal) Range: 7-18 GLU 103 mg/dL (Normal) Range: 70-110 21-Sep-20148:55 Hemoglobin A1c Comments: Test performed at:[facility] [address]jtrehdukf[address] [place], [place] [address] HGB A1C 6.0 % (Normal) Range: 4.2-6.3 21-Sep-20148:55 Lipid Profile Comments: Test performed at:[facility] [address]rpq[address] [place] [address] VLDL 17 mg/dL (Normal) Range: [...] 200-240 mg/dL Borderline >240 mg/dL High Risk 02-Xdv-554612:49 Anti-dsDNA Ab Comments: ADDED PER VERBAL ORDER - FAXED ORDER TO FOLLOWSpecimen Comment: A duplicate report has been generated due to demographicSpecimen Comment: updates.Test performed at:[facility] Laboratory1 [address] [place] [address] dsDNA AB 12 {IU/mL} (Abnormal) Range: 0-9 Comments: Negative <5 Equivocal 5 - 9 Positive >9; ADDENDA: non-emergent because has apt today to discuss. 06-Odm-587876:49 ANTINUCLEAR ANTIBODIES DIRECT Comments: Test performed at:[facility] Fmondimzlc[address]99 [place] [address] JOHN-DIRECT Positive (Abnormal) Comments: Performed at: [facility] Lab[address] [id number] Director: Reno Yanes PhD, Phone: [phone] 67-Lhf-808074:49 CBC W/Diff, Automated Comments: Test performed at:[facility] [address]wlcicr[address] [place] [address] Absolute Lymph 1.22 {X10_3/ul} (Normal) [...] 4.6-6.2 WBC 4.9 K/mm3 (Normal) Range: 4.4-11.0 14-Tto-218164:49 Comprehensive Metabolic Profil Comments: Test performed at:[facility] [address] [place] [address] GAP 6 (Normal) Range: 5-15 CO2 27.0 [...] 7-18 GLU 104 mg/dL (Normal) Range: 70-110 20-Fqf-135907:49 CRP Comments: Test performed at:[place] [address] C-REACTIVE PROT < 2.90 mg/L (Normal) Range: 0.0-3.0 Comments: C-Reactive Protein (CRP) provides useful information for thediagnosis, therapy and monitoring of inflammatory processesand associated diseases. For the evaluation of Relative Riskfor Cardiovascular Dise ase, a High Sensitivity CRP (HSCRP)should be ordered. :49 Culture, Urine Comments: Test performed at:[place] [address] CUUR See Note (Normal) Comments: Urine CultureCulture exhibits no growth.; ADDENDA: Pt has apt today, will discuss then :49 Erythrocyte Sed Rate Comments: Test performed at:[facility] Tigwhjnl[address] [place] [address] SED RATE 21 mm/h (Abnormal) Range: 0-20 :49 Hemoglobin A1c Comments: Test performed at:[address] [address] HGB A1C 5.8 % (Normal) Range: 4.2-6.3 :49 Lipid Profile Comments: Test performed at:[address] [address] VLDL 8 mg/dL (Normal) Range: 5-40 LDL [...] :49 Microalb:Creat Ratio,Random UR Comments: Test performed at:[facility] [address] [place] [address] MALB:CREAT 12.2 {mg/g_CRE} (Normal) MICROALBUMIN,UR 17.2 mg/L (Normal) UR CREAT 140.0 mg/dL (Normal) :49 PSA,Total - Annual Screen Comments: Test performed at:[facility] [address] [place] [address] PSA,TOT SCREEN 0.47 ng/mL (Normal) Range: 0.00-4.00 Comments: This test was performed using the TPSA assay method for [employer] chemistry system. Values obtained with differentassay methods cannot be used interchangably.When changing PSA assays in the course of monitoring apatient, additional sequential testing should be carriedout to confirm baseline values. :49 Thyroid Stim Hormone (TSH) Comments: Test performed at:[facility] [address] [place] [address] TSH 1.60 {uIU/mL} (Normal) Range: 0.358-3.74 :49 Urinalysis, Complete Comments: How was Urine Obtained? Urine, RandomTest performed at:[facility] [address] [place] [address] MUCUS, URINE 0 SEEN {/hpf} [...] (Normal) CLARITY Clear (Normal) COLOR Yellow (Normal) 97-Qom-606491:49 Urinalysis, Complete Comments: How was Urine Obtained? Urine, RandomTest performed at:[facility] [address]hen[address] [facility] [place] [address] MUCUS, URINE 2+ {/hpf} (Normal) [...] (Normal) CLARITY Clear (Normal) COLOR Yellow (Normal) 21-Nef-342826:07 Comprehensive Metabolic Profil Comments: Test performed at:[facility] [address] [place], [place] [address] GAP 6 (Normal) Range: 5-15 CO2 28.0 [...] 7-18 GLU 108 mg/dL (Normal) Range: 70-110 35-Vdi-932924:07 CPK Total, Creatine Kinase Comments: Test performed at:[facility] [address]ch[address] [place] [address] CPK TOTAL 91 U/L (Normal) Range: 39-308 79-Vin-301309:56 Rapid Flu (07204 x 2) Influenza A Ag negative (Normal) 6-Tuk-053720:28 URINE WARREN CULTURE-MASSIEL COL Comments: PATIENT NOT FASTINGPERFORMED BY: LabCoVirtua VoorheesYxrptj2296 [facility] [id number] Information: SRC:UR [id number] COUNT (14622) Result 1 ECV (Abnormal) Comments: Escherichia coli, [...] R Urine Final report Culture,Comprehensi (Abnormal) ve 0-Ulw-996871:58 Urinalysis, Office (04082) UA - LEUKOCYTE ESTERASE Small (Normal) UA - NITRITE Negative (Normal) URINE UROBILINGN MASSIEL TIMED 2 mg/dL (Normal) UA - PROTEIN 30 mg/dL (Normal) UA - PH 6.0 (Normal) Comments: 5.5 UA - BLOOD Hemolyzed Small (Normal) UA - SPECIFIC GRAVITY 1.030 (Abnormal) UA - KETONES Negative mg/dL (Normal) UA - BILIRUBIN Small (Normal) UA - GLUCOSE Negative (Normal) 0-Tia-954138:41 URINE WARREN CULTURE-MASSIEL COL Comments: PATIENT NOT FASTINGPERFORMED BY: [facility]Saint [facility] [id number] Information: SRC: URINE COUNT (66856) Result 1 ECV (Abnormal) Comments: Escherichia coli, [...] R Urine Final report Culture,Comprehensi (Abnormal) ve 0-Vhi-734995:27 Urinalysis, Office (43975) UA - LEUKOCYTE ESTERASE Trace (Normal) UA - NITRITE Negative (Normal) URINE UROBILINGN MASSIEL TIMED 2 mg/dL (Normal) UA - PROTEIN Negative mg/dL (Normal) UA - PH 6.0 (Normal) UA - BLOOD Negative (Normal) UA - SPECIFIC GRAVITY 1.010 (Normal) UA - KETONES Negative mg/dL (Normal) UA - BILIRUBIN Negative (Normal) UA - GLUCOSE Negative (Normal) 4-Cdp-751365:30 HgA1C , Office (53559) HgA1C , Office 5.7 % (Normal) Range: 4.6 - 7.1 7-Ctk-356859:10 URINE WARREN CULTURE-MASSIEL COL Comments: PATIENT NOT FASTINGPERFORMED BY: [email or web address] [facility] [id number] Information: SRC:UR [id number] COUNT (68693) Result 1 NG36 (Normal) Comments: No growth [...] CHOL 155 mg/dL (Normal) Comments: <200 mg/dL Cftbwhdnn020-760 mg/dL Borderline>240 mg/dL High Risk TRIG 121 [...] (Normal) UCLAR Clear (Normal) UCOL Yellow (Normal) 32-Voo-604139:20 CUUR URC See Note (Normal) Comments: ESBL+ [...] >=320 R (NF) indicates non-formulary drug at [facility]. Approval by Infectious DiseaseSpecialist required before non-formulary drugs may beordered and/or dispensed. 06-Xcu-525992:20 UA Comments: How was Urine Obtained? CLEAN [...] Antibody Present - Antibody Absen tPerformed at: [facility] LabCo[address] [id number] Director: Melquiades Hector MD, Phone: [phone] EBEAG <9.0 U/mL (Normal) Range: 0.0-8.9 Comments: [...] - 250 nmol/L)Toxicity >100 ng/mL (>250 nmol/L) 9-Wix-268612:36 BMP Comments: Serial Specimen #1, #2 or [...] <0.05 NEGATIVE0.06 - 0.59 AT RISK OF UT> OR = 0.60 SUGGEST UT :47 HgA1C , Office (91983) HgA1C , Office 6.3 % (Normal) Range: [...] CHOL 147 mg/dL (Normal) Comments: <200 mg/dL Oheivhckn212-659 mg/dL Borderline>240 mg/dL High Risk 0-Kdw-928521:55 Rapid Flu (23041 x 2) Comments: neg Influenza A Ag negative (Normal) 6-Yxx-482838:02 FECAL OCCULT- Tubes sent home (59223) FECAL OCCULT HGB ASSAY, QUAL, 1-3 negative (Normal) [facility] :39 B12 510 pg/mL (Normal) Range: 211-911 [...] {IU/mL} (Normal) Range: 0-100 Comments: Performed at: [facility] Lab[address] Director: Melquiades Hector MD, Phone: [phone] IMM 55 mg/dL (Normal) Range: 40-230 DEBBY 182 mg/dL (Normal) Range: 91-414 IMG 788 mg/dL (Normal) Range: 700-1600 :39 LDH 190 U/L (Normal) Comments: Serial Specimen #1, #2 or #3? 1Is Patient Taking Vitamins or Folic Acid Supplements? N Range: 84-246 :39 PROEL Comments: Is Patient Fasting? Y [id number] Comment (Normal) Comments: Protein electrophoresis scan will follow via computer,mail, or dredge pipe operator delivery. tPROELAG 1.6 (Normal) Range: 0.7-2.0 tPROELIN [...] Supplements? N Range: 250-450 :56 CULTURE, SPUTUM (42551) Comments: PATIENT NOT FASTINGPERFORMED BY: LabCoVirtua VoorheesQdxmsh4243 [facility] [id number] Information: SRC:[facility] [id number] Result 1 RRF (Normal) Comments: Routine respiratory ashkan Lower Respiratory Culture Final report (Normal) :32 HgA1C , Office (35961) HgA1C , Office 5.9 % (Normal) Range: 4.6 - 7.1 :32 Blood Glucose , Office (81741) Blood Glucose , Office 90 (Normal) :51 [...] 4.6-6.2 WBC 7.2 {k/mm3} (Normal) Range: 4.4-11.0 70-Pkg-756461:51 CMP GAP 9 (Normal) Range: 5-15 CO2 [...] CHOL 149 mg/dL (Normal) Comments: <200 mg/dL Hrdoqtkjd064-644 mg/dL Borderline>240 mg/dL High Risk :51 PSA 0.51 ng/mL (Normal) Range: 0.00-4.00 Comments: This test was performed using the TPSA assay method for the[employer] chemistry system. Values obtained with differentassay methods cannot be used interchangably.When changing PSA assays in the course of monitoring apatient, additional sequential testing should be carriedout to confirm baseline values. :59 MISC (Normal) Comments: TEST RESULT LIMITSAntinuclear Antibodies, IFA NegativeNegative <1:80Borderline 1:80Positive >1:80 [facility]. ORIGINAL REPORT ONFILE IN LAB CONTAINS [...] CHOL 154 mg/dL (Normal) Comments: <200 mg/dL Ynmkblmny745-715 mg/dL Borderline>240 mg/dL High Risk HDL 64 [...] CUF See Note Comments: TESTING PERFORMED AT [facility]. ORIGINAL REPORT ONFILE IN LAB CONTAINS ADDITIONAL TEST SITE INFORMATION. (Normal) CULTURE, FUNGUSNO YEAST OR MOLD ISOLATED AFTER 4 WEEKS. 67-Hip-888189:11 CUSP RESPC See Note (Normal) Comments: No [...] YEAST OR MOLD ISOLATED AFTER 4 WEEKS. 12-Ufd-048607:21 AFBCS tAFBC See Note Comments: TESTING PERFORMED AT [facility]. ORIGINAL REPORT ONFILE IN LAB CONTAINS ADDITIONAL TEST SITE INFORMATION. (Normal) CULTURE, ACID FAST FINAL CULTURE REPORT TO FOLLOW IN 6 WEEKS. EverF See Note Comments: TESTING PERFORMED AT [facility]. ORIGINAL REPORT ONFILE IN LAB CONTAINS ADDITIONAL TEST SITE INFORMATION. (Normal) ACID FAST BACILLUS SMEARAcid Fast Smear from Concentrated Specimen :Negative 34-Xci-461913:21 CUFST FUNST See Note Comments: TESTING PERFORMED AT [facility]. ORIGINAL REPORT ONFILE IN LAB CONTAINS ADDITIONAL TEST SITE INFORMATION. (Normal) FUNGUS STAIN YEAST OBSERVED CUF See Note Comments: TESTING PERFORMED AT [facility]. ORIGINAL REPORT ONFILE IN LAB CONTAINS ADDITIONAL TEST SITE INFORMATION. (Normal) CULTURE, FUNGUSNO YEAST OR MOLD ISOLATED AFTER 4 WEEKS. 16 AFBSTN SEE Comments: Specimen submitted to Anatomical Pathology Department [facility]. - PATHOLOGY ay REPORT -2 (Normal) 32 2: 00 16 AFBSTN SEE Comments: PATIENT BROUGHT SPECIMEN IN ON 07/11/12. - PATHOLOGY Comments: Specimen submitted to Anatomical Pathology Department [facility]. ay REPORT -2 (Normal) 30 :0 0 12 AFBSTN SEE Comments: PATIENT BROUGHT SPECIMEN IN ON 07/11/12 - PATHOLOGY Comments: Specimen submitted to Anatomical Pathology Department [facility]. ay REPORT -2 (Normal) 39 :0 0 95-Ira-838523:05 WARREN CULTURE-OTHER (12007) Comments: PATIENT NOT FASTINGPERFORMED BY: BOB[facility] Gwwttp[address] [place] [id number] Information: SRC: THROAT Result 1 RRF (Normal) Comments: Routine respiratory ashkan Upper Respiratory Culture Final report (Normal) 44-Jnl-305119:23 Rapid Strep Test, Office (11767) Rapid Strep Test, Office Negative (Normal) 8-Esg-075998:15 CBCMD RBCM NORM C+C {NORMAL} (Normal) PE [...] 4.6-6.2 WBC 8.3 K/mm3 (Normal) Range: 4.4-11.0 5-Swj-561717:15 CMP GAP 10 (Normal) Range: 5-15 CO2 [...] 7-18 GLU 81 mg/dL (Normal) Range: 70-110 7-Vrb-689353:15 LIPID VLDL 12 mg/dL (Normal) Range: 5-40 [...] Alvarado M.D.January 27, 2012 at 2:39:03 PM [id number] Signed GP/GP If you are the refe rring physician and would like to consult with theradiologist who provided this interpretation, please contact Itzel Linares at [phone]. If this radiologist is unavailable, youwill be dir ected to another radiologist to assist. If you are a patient with a question regarding this report, pleasecontactyour referring physician directly. Professional Interpretation Provided By: [employer], Phone , These documents contain legally protected [...] Schwarz D.O.January 26, 2012 at 8:55:02 PM [id number] Signed BE/B E If you are the referring physician and would like to consult with theradiologist who provided this interpretation, please contact Yogi Schwarz D.O. at [phone]. If this radiologist is unavailable, yo u will bedirected to another radiologist to assist. If you are a patient with a question regarding this report, pleasecontactyour referring physician directly. Professional Interpretation Provided By: [employer], Phone , These documents contain legally protected [...] 01/26/12 2100 Sign by: Yogi Schwarz MD 83-Yvl-010908:13 CUSP RESPC See Note (Normal) Comments: No [...] CHAINS AND CLUSTERS :56 HgA1C , Office (34050) HgA1C , Office 6.1 % (Normal) Range: 4.6 - 7.1 :56 Blood Glucose , Office (30907) Blood Glucose , Office 116 (Normal) : [...] mg/dL suggests IMPAIRED HOMEOSTASIS per A.D.A. criteria. 67-Iuj-12216:01 TSH 1.98 {uIU/mL} (Normal) Range: 0.358-3.74 70-Rhc-973177:25 CMP GAP 7 (Normal) Range: 5-15 CO2 [...] 7-18 GLU 107 mg/dL (Normal) Range: 70-110 64-Bbu-817784:25 LIPID VLDL 12 mg/dL (Normal) Range: 5-40 [...] 200-240 mg/dL Borderline >240 mg/dL High Risk 71-Kiy-729918:25 MIACRE tMICROCREAT 6.7 {mg/g_CRE} (Normal) MIALB 5.5 mg/L (Normal) CREU 81.1 mg/dL (Normal) 33-Iyo-318714:25 PSA 0.50 ng/mL (Normal) Range: 0.00-4.00 Comments: NEW TEST ASSAY METHOD JULY 12, 2011This test was performed using the TPSA assay method for the[employer] chemistry system. Values obtained with differentassay methods [...] UCOL YELLOW (Normal) :44 HgA1C , Office (27356) HgA1C , Office 6.3 % (Normal) Range: 4.6 - 7.1 :44 Blood Glucose , Office (40608) Blood Glucose , Office 114 (Normal) :13 HgA1C , Office (08740) HgA1C , Office 6.2 % (Normal) Range: 4.6 - 7.1 :13 Blood Glucose , Office (13009) Blood Glucose , Office 100 (Normal) :55 HgA1C , Office (86018) HgA1C , Office 5.8 % (Normal) Range: 4.6 - 7.1 :55 Blood Glucose , Office (67402) Blood Glucose , Office 85 (Normal) :51 WARREN CULTURE-OTHER (11009) Comments: PATIENT NOT FASTINGPERFORMED BY: [facility] Mkcrgu8726 [facility] [id number] Information: SRC:THRT [id number] Result 1 Yeast isolated. (Normal) Comments: Heavy growthRequest for further identification must be madewithin 1 week. Upper Respiratory Culture Final report (Normal) :14 Rapid Strep Test, Office (43297) Rapid Strep Test, Office Negative (Normal) :24 [...] serialsampling is recomme nded. TESTING PERFORMED AT [facility]. ORIGINAL REPORT ON FILE IN LAB CONTAINS [...] cells for the productionof interferon gamma.Performed at: [address] [id number] Director: Joseph Velez MD, Phone: [phone] QFT AG - NIL 0 {IU/mL} (Normal) [...] 7-18 GLU 100 mg/dL (Normal) Range: 70-110 13-Lat-96319:03 COMPLETE UA MUCUS, URINE 2+ {/hpf} (Normal) [...] >240 mg/dL High Risk :03 VIT D,25 11584 38.0 ng/mL (Normal) Comments: appt 03-08-10 Range: 32.0-100.0 Comments: Effective January 11, 2011 Vitamin D, 25-Hydroxy reference intervals will be changing to 30-100. .Recent studies consider the lower li chilo of 32.0 ng/mL to be athreshold for optimal health.Mark LUDWIG. J Nutr. 2004;135(2):317-22.Performed at: [address] [id number] Director: Lakshmi Pino MD, Phone: [phone] VITAMIN B12 696 pg/mL (Normal) Range: 254-1320 Comments: There is a low frequency possibility that high titers ofintrinsic blocking antibodies may not be completely inactivated during the reaction pretreatment stepof this testing method. If test results are i n conflictwith the clinical diagnosis, patient should be testedfor the presence of intrinsic factor blocking antibodies. 88-Lyb-080153:05 Rapid Strep Test, Office (89428) Rapid Strep Test, Office Negative (Normal) :00 CULTURE, THROAT See Note (Normal) Comments: Normal throat ashkan isolated. No beta-hemolyticstreptococcus isolated. 70-Oad-30833:00 CHEST WITHOUT CONTRAST Radiology Report See Note [...] 10/11/10 0244 Sign by: Clarke Butt MD 09-Nca-509307:58 GALLBLADDER Radiology Report See Note (Normal) Comments: PROCEDURE: ABDOMINAL ULTRASOUND - RIGHT UPPER QUADRANT REASON FOR VISIT: Male, 60 years old. Abdominal pain. TECHNIQUE: Ultrasound evaluation of the right upper quadrant [facility]performed [facility] and static grayscale imaging. [...] 10/08/10 1402 Sign by: Jake Alvarado MD 31-Orm-25691:00 CULTURE, URINE URINE CULTURE See Note {CFU/mL} (Normal) Comments: COLONY COUNT <1000 ORGANISM 1: MIXED GRAM POSITIVE ORGANISMS 04-Wxd-398956:19 Urinalysis, Office (34848) UA - BILIRUBIN Negative (Normal) UA - BLOOD Non Hemolyzed Trace (Normal) UA - GLUCOSE Negative (Normal) UA - KETONES Negative mg/dL (Normal) UA - LEUKOCYTE ESTERASE Negative (Normal) UA - NITRITE Negative (Normal) UA - PH 7.0 (Normal) UA - PROTEIN Negative mg/dL (Normal) UA - SPECIFIC GRAVITY 1.010 (Normal) URINE UROBILINGN MASSIEL TIMED Normal mg/dL (Normal) 97-Lao-51663:00 ABDOMEN/PELVIS WITHOUT CONT Radiology Report See Note [...] Cosmo Mahmood MD :11 HgA1C , Office (78380) HgA1C , Office 6.2 % (Normal) Range: 4.6 - 7.1 :11 Blood Glucose , Office (47079) Blood Glucose , Office 90 (Normal) :28 [...] mg/dL High Risk :53 HgA1C , Office (18360) HgA1C , Office 6.4 % (Normal) Range: 4.6 - 7.1 :53 Blood Glucose , Office (14777) Blood Glucose , Office 108 (Normal) :39 CULTURE, URINE URINE CULTURE Culture exhibits no growth. (Normal) :54 Urinalysis, Office (31671) UA - BILIRUBIN Negative (Normal) UA - BLOOD Negative (Normal) UA - GLUCOSE Negative (Normal) UA - KETONES Negative mg/dL (Normal) UA - LEUKOCYTE ESTERASE Negative (Normal) UA - NITRITE Negative (Normal) UA - PH 7.0 (Normal) UA - PROTEIN Negative mg/dL (Normal) UA - SPECIFIC GRAVITY 1.010 (Normal) URINE UROBILINGN MASSIEL TIMED Normal mg/dL (Normal) :37 HgA1C , Office (11873) HgA1C , Office 6.1 % (Normal) Range: 4.6 - 7.1 :37 Blood Glucose , Office (36606) Blood Glucose , Office 96 (Normal) 30-Fxe-187504:46 CBCD,SMEAR DIFF PLT EST SeeNote (Normal) Comments: [...] 4.6-6.2 WBC 7.5 K/mm3 (Normal) Range: 4.4-11.0 18-Akf-985473:46 COMP METABOLIC GAP 7 (Normal) Range: 5-15 [...] 7-18 GLU 105 mg/dL (Normal) Range: 70-110 99-Aqb-297129:46 LIPID VLDL 10 mg/dL (Normal) Range: 5-40 [...] mg/L (Normal) UR CREAT 166.2 mg/dL (Normal) 44-Ywa-818758:46 PSA, SCREEN 0.5 ng/mL (Normal) Range: 0.0-4.0 :22 HgA1C , Office (54287) HgA1C , Office 6.1 % (Normal) Range: 4.6 - 7.1 :22 Blood Glucose , Office (29775) Blood Glucose , Office 123 (Normal) :47 HgA1C , Office (64629) HgA1C , Office 6.3 % (Normal) Range: 4.6 - 7.1 :47 Blood Glucose , Office (10971) Blood Glucose , Office 103 (Normal) :05 [...] CHOL 142 mg/dL (Normal) Comments: <200 mg/dL Wkzoilmlt887-853 mg/dL Borderline>240 mg/dL High Risk TRIG 35 mg/dL (Normal) Comments: Serum Triglycerides Reference IntervalNormal <150 mg/dLBorderline high 150 - 199 mg/dLHigh 200 - 499 mg/ dLVery High > or = 500 mg/dL :24 HgA1C , Office (67227) HgA1C , Office 6.2 % (Normal) Range: 4.6 - 7.1 :23 Blood Glucose , Office (08645) Blood Glucose , Office 96 (Normal) 95-Bis-723611:07 GASTRIC EMPTYING STUDY Radiology Report See Note (Normal) Comments: Exam Number: [id number] GASTRIC EMPTYING STUDY A gastric emptying study was performed. The patient ingested 1 mCi ajCr04y Sulfur colloid with oatmeal. HISTORYThis is a 58-year-old male patie nt with hist ory of bloating andgastroesophageal reflux. FINDINGSAt 1 hour, there is complete emptying of the stomach of [employer]. This is a normal study. IMPRESSIONNormal examination. There is no e vidence of gastric retention. Reported By: WILFREDO ALVARADO :33 HgA1C , Office (79107) HgA1C , Office 5.9 % (Normal) Range: 4.6 - 7.1 :33 Blood Glucose , Office (09246) Blood Glucose , Office 111 (Normal) :08 [...] Range: 0.0-4.0 :46 Blood Glucose , Office (57488) Blood Glucose , Office 156 (Normal) :46 HgA1C , Office (10865) HgA1C , Office 5.8 % (Normal) Range: 4.6 - 7.1 :12 HgA1C , Office (99491) Comments: done HgA1C , Office 5.8 % (Normal) Range: 4.6 - 7.1 :12 Blood Glucose , Office (41160) Comments: done Blood Glucose , Office 99 [...] (Normal) Range: 200-370 Comments: Performed At: [address] [id number] :44 Blood Glucose , Office (51255) Blood Glucose , Office 92 (Normal) :44 HgA1C , Office (30806) HgA1C , Office 5.7 % (Normal) Range: 4.6 - 7.1 :40 GLU GTT-2 HOUR 191 mg/dL (Abnormal) Comments: 2HR GTT GLU 2 HR GLU GTT-2 HOUR from 216:[id number]. Range: 70-120 :20 GLU GTT-1 HOUR 178 mg/dL (Abnormal) Comments: 2HR GTT GLU 1 HR GLU GTT-1 HOUR from 216:[id number]. Range: 120-170 :40 GLU GTT-30 min. 183 mg/dL (Abnormal) Comments: 2HR GTT GLU 1/2 HR GLU GTT-30 min. from 216:U53766M. Range: 110-170 :01 GLU GTT-FASTING 106 mg/dL (Normal) Comments: 2HR GTT FASTING GLU GTT-FASTING from 216:W14744P. Range: 70-110 Comments: GLUCOSE TOLERANCE TEST Reference [...] 47-70 WBC 8.2 K/mm3 (Normal) Range: 4.4-11.0 91-Mqe-23626:12 COMP METABOLIC A/G 1.3 {RATIO} (Normal) Range: [...] T PROT 7.0 g/dL (Normal) Range: 6.4-8.2 92-Gts-291850:12 LIPID CHOL 154 mg/dL (Normal) Comments: <200 [...] mg/dL VLDL 15 mg/dL (Normal) Range: 5-40 39-Vym-321379:12 PSA,TOT SCREEN 0.96 ng/mL (Normal) Range: 0.00-4.00 Comments: This test was performed using the TPSA method for theDimension chemistry system.Values obtained with different assay methods cannot be usedinterchangably.When changing PSA assays in the course of monito ring apatient, additional sequential testing should be carriedout to confirm baseline values. 19-Coo-064512:12 ROUTINE UA BILIRUBIN URINE SeeNote (Normal) Comments: [...] 0.2 EU/dl (Normal) Range: 0.2 - 1.0 65-Xqa-019513:12 TSH 1.38 {uIU/mL} (Normal) Range: 0.34-4.82 81-Iqu-25874:03 CHEST WITH CONTRAST Radiology Report See Note (Normal) Comments: Exam Number: [id number] CHEST CT WITH INTRAVENOUS CONTRAST. REASON FOR [...] No growth in 5 6:14 days. (Normal) 5-Xzo-692370:14 CBCD,SMEAR DIFF BAND 1 % (Normal) Range: [...] T PROT 6.3 g/dL (Abnormal) Range: 6.4-8.2 96-Klk-197813:19 EBVIgG/M 271854 EB-EA IgG 61726 79 AU/mL (Normal) Range: 0-99 Comments: Negative <100 Equivocal 100 - 120 Positive >120 EB-NAg [id number] 656 AU/mL (Abnormal) Range: 0-99 Comments: Negative <100 Equivocal 100 - 120 Positive >120 EB-VCA [id number] 2296 AU/mL (Abnormal) Range: 0-99 Comments: Negative <100 Equivocal 100 - 120 Positive >120 EB-VCA [id number] 9 AU/mL (Normal) Range: 0-99 Comments: Negative [...] + Antibody Present - Antibody AbsentPerformed At: [facility] [id number] [place], [place] [id number] 31-Ssj-456667:00 CULTURE, THROAT See Note (Normal) Comments: Normal throat ashkan isolated. No beta-hemolyticstreptococcus isolated. 03-Dqf-374332:35 Rapid Strep Test, Office (04068) Rapid Strep Test, Office Negative (Normal) 37-Qyl-38558:40 TISS/FLUID P-BX/CY (Normal) Comments: OPERATION Biopsy, testicle, [...] SJ:rin 11/09/06 TC:5 REPORT SIGNED: PAMELLA SON 11/10/0607-Nov-200631-Duz-823925:55 ALDOLASE 2030 2.3 U/L (Normal) Range: 1.2-7.6 Comments: Performed At: [address] [id number] At: [address] [id number] 97-Bhd-977658:55 JOHN-D [id number] JOHN-DIRECT 9 U/mL (Normal) Range: 0-99 Comments: Negative <100 Equivocal 100 - 120 Positive >120 38-Dvh-493360:55 C-REACTIVE PROT 0.52 mg/L (Normal) Range: 0.0-6.0 Comments: Test performed using the Dimension C-Reactive ProteinExtended Range assay method. This assay meets the AHA/CDC 2003 recommendations fordetermining patients at high risk for cardiovasculardisease. Reference: High risk CRP >3.0 mg/L 57-Egz-325954:55 CBC HCT 42.8 % (Normal) Range: 40-54 [...] 4.9 {IU/mL} (Normal) Range: 0.0-13.9 :55 TESTOST [id number] TESTOSTER %FREE 2.87 % (Normal) Range: 1.50-4.20 [...] Report See Note (Normal) Comments: Exam Number: [id number] TESTICULAR ULTRASOUND HISTORYTesticular swelling. High resolution real [...] Reported By: MAYELIN DE LA FUENTE M.D. 4-Egz-671569:45 HIP, MIN 2 VIEWS Radiology Report See Note (Normal) Comments: Exam Number: [id number] FIVE VIEW LUMBAR SPINE AP, LATERAL, BOTH [...] degenerative changes. Reported By: REMIGIO PURCELL M.D. 8-Blx-720162:45 L/S SPINE,MIN 4 VIEWS Radiology Report See Note (Normal) Comments: Exam Number: [id number] FIVE VIEW LUMBAR SPINE AP, LATERAL, BOTH [...] degenerative changes. Reported By: REMIGIO PURCELL M.D. 8-Qxg-251776:44 HIP, MIN 2 VIEWS Radiology Report See Note (Normal) Comments: Exam Number: [id number] FIVE VIEW LUMBAR SPINE AP, LATERAL, BOTH [...] Report See Note (Normal) Comments: Exam Number: [id number] PA AND LATERAL CHEST HISTORYShortness of breath. [...] 15, 2005. Reported By: EDVIN MARIE M.D. 66-Dll-657299:25 ALDOLASE 2030 3.0 U/L (Normal) Range: 1.2-7.6 Comments: Performed At: [facility] [place], [place] [id number] 64-Jaf-079846:25 JOHN-D [id number] JOHN-DIRECT 46 U/mL (Normal) Range: 0-99 Comments: Negative <100 Equivocal 100 - 120 Positive >120 19-Knr-451783:25 C-REACTIVE PROT 1.07 mg/L (Normal) Range: 0.0-6.0 Comments: Test performed using the Dimension C-Reactive ProteinExtended Range assay method. This assay meets the AHA/CDC 2003 recommendations fordetermining patients at high risk for cardiovasculardisease. Reference: High risk CRP >3.0 mg/L 37-Msv-876445:25 CBCD BASO% 0.4 % (Normal) Range: 0-1 [...] morphology Planned Observations CBC W/AUTO DIFF WBC (90190)Indication: Hypertension, benign On: :51 Request METABOLIC PANEL, COMPREHENSIVE (64153)Indication: Hypertension, benign On: :51 Request LIPID PANEL (86872)Indication: Other hyperlipidemia On: :50 Request CULTURE,FUNGUS W/STAIN 033626 (11676)Indication: Bronchiectasis On: :59 Request CULTURE, SPUTUM (44559)Indication: Moderate persistent asthma without complication On: :21 Request HGB A1C (88446)Indication: Abnormal glucose tolerance test On: :10 Request CBC with auto diff (51494)Indication: Abnormal glucose tolerance test On: :10 Request METABOLIC PANEL, COMPREHENSIVE (23602)Indication: Abnormal glucose tolerance test On: :10 Request LIPID PANEL (91869)Indication: Other hyperlipidemia On: :10 Request PSA (PROSTATE SPECIFIC ANTIGEN) (V76.44)Indication: Encounter for screening for malignant neoplasm of prostate (Renamed from Screening for prostate cancer) On: :09 Request METABOLIC PANEL, COMPREHENSIVE (34171)Indication: Essential hypertension On: 8-Fwe-385603:58 Request CBC with auto diff (15765)Indication: Hypertension, benign On: :53 Request METABOLIC PANEL, COMPREHENSIVE (18652)Indication: Abnormal glucose tolerance test On: :52 Request MICROALBUMIN: CREATININE RATIO (14413) AND (80814)Indication: Abnormal glucose tolerance test On: :52 Request HGB A1C (81016)Indication: Abnormal glucose tolerance test On: :52 Request LIPID PANEL (62424)Indication: Other hyperlipidemia On: :52 Request LIPID PANEL (40555)Indication: Other hyperlipidemia On: 4-Cgi-618390:30 Request CBC W/AUTO DIFF WBC (43249)Indication: Hypertension, benign On: :29 Request METABOLIC PANEL, COMPREHENSIVE (05360)Indication: Hypertension, benign On: :29 Request IMMUNOGLOBULIN G (IgG) (81904)Indication: Abnormal blood chemistry On: :02 Request Comments: PLEASE DRAW WITH OTHER LABS IN 2016 serum free light chains (37098)Indication: Abnormal blood chemistry On: :40 Request serum immunofixation (81689)Indication: Abnormal blood chemistry On: :40 Request PSA (PROSTATE SPECIFIC ANTIGEN) (V76.44)Indication: Encounter for screening for malignant neoplasm of prostate (Renamed from Screening for prostate cancer) On: :40 Request LIPID PANEL (70817)Indication: Other hyperlipidemia On: Request CBC with auto diff (04531)Indication: Abnormal glucose tolerance test On: :39 Request METABOLIC PANEL, COMPREHENSIVE (39638)Indication: Abnormal glucose tolerance test On: :39 Request MICROALBUMIN: CREATININE RATIO (93792) AND (26497)Indication: Abnormal glucose tolerance test On: :39 Request HGB A1C (02843)Indication: Abnormal glucose tolerance test On: :39 Request LIPID PANEL (05106)Indication: Other hyperlipidemia On: 4-Gdr-690181:58 Request urine immunofixation (01540)Indication: Abnormal blood chemistry On: :34 Request serum immunofixation (97420)Indication: Abnormal blood chemistry On: :34 Request MICROALBUMIN: CREATININE RATIO (20896) AND (54212)Indication: Abnormal glucose tolerance test On: :32 Request HGB A1C (06223)Indication: Abnormal glucose tolerance test On: :32 Request CBC W/AUTO DIFF WBC (19989)Indication: Hypertension, benign On: :30 Request METABOLIC PANEL, COMPREHENSIVE (59252)Indication: Hypertension, benign On: :30 Request LIPID PANEL (17332)Indication: Other hyperlipidemia On: :30 Request LIPOPROTEIN, BLD, BY NMR (13818)Indication: Other hyperlipidemia On: :14 Request CBC WITH MANUAL DIFF (07705)Indication: Essential hypertension On: 76-Qxb-754720:14 Request Metabolic Panel, Comprehensive (54541)Indication: Essential hypertension On: :14 Request CBC W/AUTO DIFF WBC (33709)Indication: Abnormal glucose tolerance test On: : Request LIPOPROTEIN, BLD, BY NMR (12478)Indication: Other hyperlipidemia On: : Request METABOLIC PANEL, COMPREHENSIVE (03556)Indication: Abnormal glucose tolerance test On: : Request Anti-TPO Antibody (52689)Indication: Abnormal blood chemistry On: :57 Request T4, FREE (THYROXINE) (24377)Indication: Abnormal blood chemistry On: : Request T3, FREE (TRIDOTHYRONINE) (25789)Indication: Abnormal blood chemistry On: :57 Request TSH (11615)Indication: Abnormal blood chemistry On: :56 Request P-ANCA & C-ANCA (ANCA PROFILE) 36285 x2 and 07948 a8Vyagawebab: Acute recurrent maxillary sinusitis On: :26 Request JOHN (ANTINUCLEAR ANTIBODY) (58468)Indication: Abnormal blood chemistry On: :56 Request RHEUMATOID FACTOR-QUANT (49273)Indication: Abnormal blood chemistry On: :56 Request SED RATE ERYTHROCYTE (43315)Indication: Abnormal blood chemistry On: :56 Request C-REACTIVE PROTEIN (69541)Indication: Abnormal blood chemistry On: :56 Request CBC with auto diff (84507)Indication: Hypertension, benign On: :10 Request MICROALBUMIN: CREATININE RATIO (27054) AND (64616)Indication: Abnormal glucose tolerance test On: : Request METABOLIC PANEL, COMPREHENSIVE (64897)Indication: Abnormal glucose tolerance test On: : Request HGB A1C (03145)Indication: Abnormal glucose tolerance test On: : Request METABOLIC PANEL, COMPREHENSIVE (27009)Indication: Hypertension, benign On: : Request LIPID PANEL (49109)Indication: Other hyperlipidemia On: : Request PSA (PROSTATE SPECIFIC ANTIGEN) (V76.44)Indication: Encounter for screening for malignant neoplasm of prostate (Renamed from Screening for prostate cancer) On: 80-Tti-678680:59 Request Factor 2 (Prothrombin) Gene Mutation (34235)Indication: Other symptoms involving cardiovascular system On: 0-Oha-611701:13 Request MICROALBUMIN: CREATININE RATIO (92688) AND (39635)Indication: Abnormal glucose tolerance test On: :53 Request HGB A1C (24515)Indication: Abnormal glucose tolerance test On: :53 Request LIPID PANEL (98145)Indication: Other hyperlipidemia On: :53 Request CBC W/AUTO DIFF WBC (10304)Indication: Hypertension, benign On: :53 Request METABOLIC PANEL, COMPREHENSIVE (30305)Indication: Hypertension, benign On: :53 Request CBC with auto diff (66842)Indication: Hypertension, benign On: 1-Puf-993091:25 Request METABOLIC PANEL, COMPREHENSIVE (82174)Indication: Hypertension, benign On: :25 Request LIPID PANEL (26639)Indication: Other hyperlipidemia On: 2-Zwj-500289:25 Request Factor V Leiden (17433)Indication: Deep vein thrombosis of lower extremity On: :24 Request CLOTTING FACTOR II (68336)Indication: Deep vein thrombosis of lower extremity On: :24 Request ANTITHROMBIN III ACTIVTY (85926)Indication: Deep vein thrombosis of lower extremity On: :24 Request Antiphospholipid atb (54863)Indication: Deep vein thrombosis of lower extremity On: :24 Request Protein C Profile (40874)Indication: Deep vein thrombosis of lower extremity On: :24 Request Protein S Profile (44243)Indication: Deep vein thrombosis of lower extremity On: :24 Request Hemoglobin Glyclated (HGB A1C) (32158)Indication: Abnormal glucose tolerance test On: :23 Request CBC W/AUTO DIFF WBC (86658)Indication: Abnormal glucose tolerance test On: :43 Request MICROALBUMIN: CREATININE RATIO (81302) AND (68858)Indication: Abnormal glucose tolerance test On: :43 Request METABOLIC PANEL, COMPREHENSIVE (66607)Indication: Abnormal glucose tolerance test On: Request LIPID PANEL (81200)Indication: Other hyperlipidemia On: Request DNA ANTIBODY-NATV/DBL ST (23479)Indication: Heart disease, unspecified On: : Request METABOLIC PANEL, COMPREHENSIVE (81250)Indication: Essential hypertension On: : Request LIPID PANEL (34813)Indication: Other hyperlipidemia On: :31 Request Hemoglobin Glyclated (HGB A1C) (77405)Indication: Abnormal glucose tolerance test On: : Request PSA (PROSTATE SPECIFIC ANTIGEN) (V76.44)Indication: Benign prostatic hyperplasia with lower urinary tract symptoms, unspecified morphology On: :52 Request MICROALBUMIN: CREATININE RATIO (28941) AND (23173)Indication: Abnormal glucose tolerance test On: :50 Request Hemoglobin Glyclated (HGB A1C) (88743)Indication: Abnormal glucose tolerance test On: :50 Request URINE WARREN CULTURE (MASSIEL COL COUNT) (35212)Indication: Muscle weakness On: 48 Request URINALYSIS, W/ MICRO (85784)Indication: Muscle weakness On: :48 Request CBC with auto diff (19085)Indication: Muscle weakness On: :48 Request JOHN (ANTINUCLEAR ANTIBODY) (80900)Indication: Muscle weakness On: :48 Request SED RATE ERYTHROCYTE (46388)Indication: Muscle weakness On: :48 Request C-REACTIVE PROTEIN (93896)Indication: Muscle weakness On: 48 Request TSH (71775)Indication: Muscle weakness On: 65-Idz-200373:48 Request LIPID PANEL (48611)Indication: Other hyperlipidemia On: 09-Wdq-777968:47 Request METABOLIC PANEL, COMPREHENSIVE (46233)Indication: Other hyperlipidemia On: :46 Request URINE WARREN CULTURE-MASSIEL COL COUNT (48611)Indication: Other abnormal finding of urine On: 3-Mou-852363:42 Request LIPID PANEL (27056)Indication: Other hyperlipidemia On: :44 Request CBC W/AUTO DIFF WBC (83516)Indication: Essential hypertension On: :44 Request METABOLIC PANEL, COMPREHENSIVE (28348)Indication: Essential hypertension On: :44 Request URINE WARREN CULTURE-MASSIEL COL COUNT (65513)Indication: Other abnormal finding of urine On: 2-Fds-983394:00 Request Comments: ADD ON MICROALBUMIN: CREATININE RATIO (98745) AND (20934)Indication: Essential hypertension On: :02 Request URINALYSIS, W/ MICRO (22394)Indication: Essential hypertension On: 9-Jvd-997685:02 Request METABOLIC PANEL, COMPREHENSIVE (98616)Indication: Essential hypertension On: 0-Eyo-841017:02 Request LIPID PANEL (48859)Indication: Other hyperlipidemia On: 9-Itz-720190:02 Request CBC WITH MANUAL DIFF (44135)Indication: Iron deficiency On: 1-Mpt-328341:02 Request URINE WARREN CULTURE (MASSIEL COL COUNT) (63032)Indication: Fatigue On: 60-Obc-497561:46 Request MICROALBUMIN: CREATININE RATIO (80494) AND (09532)Indication: Abnormal glucose tolerance test On: 09-Njf-242028:46 Request Hemoglobin Glyclated (HGB A1C) (21143)Indication: Abnormal glucose tolerance test On: 04-Yil-330228:46 Request IRON BINDING CAPACITY (TIBC) (97098)Indication: Anemia, unspecified On: :42 Request FERRITIN (02563)Indication: Anemia, unspecified On: 77-Bsn-126676:42 Request IRON (52642)Indication: Anemia, unspecified On: 82-Hwv-806894:42 Request VITAMIN B-12 (CYANOCOBALAMIN) (23739)Indication: Fatigue On: 66-Xtw-302532:42 Request CBC (AUTO) (72440)Indication: Fatigue On: Request TSH (86449)Indication: Fatigue On: Request Vitamin D Hydroxy (34794)Indication: Fatigue On: Request EBV Panel (76501)Indication: Fatigue On: Request FERRITIN (15000)Indication: Anemia, unspecified On: Request IRON (63616)Indication: Anemia, unspecified On: Request MICROALBUMIN: CREATININE RATIO (98615) AND (39430)Indication: Abnormal glucose tolerance test On: Request METABOLIC PANEL, COMPREHENSIVE (61950)Indication: Abnormal glucose tolerance test On: Request LIPID PANEL (22284)Indication: Other hyperlipidemia On: Request CBC WITH MANUAL DIFF (74912)Indication: Anemia, unspecified On: Request FERRITIN (88408)Indication: Anemia, unspecified On: :15 Request IRON (20580)Indication: Anemia, unspecified On: Request LIPID PANEL (67262)Indication: Essential hypertension On: Request METABOLIC PANEL, COMPREHENSIVE (88649)Indication: Essential hypertension On: : Request CBC WITH MANUAL DIFF (01819)Indication: Essential hypertension On: Request UPEP (02768)Indication: BRONCHITIS, NOT SPECIFIED ACUTE OR CHRONIC (490.) On: Request Protein Electrophoresis, Serum (SPEP) (04810)Indication: BRONCHITIS, NOT SPECIFIED ACUTE OR CHRONIC (490.) On: Request IGA/IGD/IGG/IGM-EACH (72469)Indication: BRONCHITIS, NOT SPECIFIED ACUTE OR CHRONIC (490.) On: Request URINALYSIS, W/ MICRO (83732)Indication: Anemia, unspecified On: Request CBC WITH MANUAL DIFF (23407)Indication: Anemia, unspecified On: : Request FOLIC ACID SERUM (88046)Indication: Anemia, unspecified On: Request VITAMIN B-12 (CYANOCOBALAMIN) (75820)Indication: Anemia, unspecified On: : Request RETICULOCYTE COUNT MANUL (83614)Indication: Anemia, unspecified On: Request LDH (LD) (LACTATE DEHYDROGENASE) (61354)Indication: Anemia, unspecified On: Request IRON BINDING CAPACITY (TIBC) (46587)Indication: Anemia, unspecified On: Request IRON (80053)Indication: Anemia, unspecified On: Request FERRITIN (85647)Indication: Anemia, unspecified On: Request PSA (PROSTATE SPECIFIC ANTIGEN) (V76.44)Indication: Screening for prostate cancer On: :36 Request LIPID PANEL (24575)Indication: Abnormal glucose tolerance test On: :35 Request CBC WITH MANUAL DIFF (22412)Indication: Hypertension, benign On: 35 Request METABOLIC PANEL, COMPREHENSIVE (01980)Indication: Hypertension, benign On: 35 Request SED RATE ERYTHROCYTE (75700)Indication: Rash On: :22 Request C-REACTIVE PROTEIN (09737)Indication: Rash On: :22 Request RHEUMATOID FACTOR-QUANT (26146)Indication: Rash On: :22 Request JOHN (ANTINUCLEAR ANTIBODY) (23657)Indication: Rash On: 82-Qcb-652484:22 Request CULTURE, SPUTUM (56316)Indication: Cough On: 19-Pca-099842:20 Request HgA1C , Office (11806)Indication: Abnormal glucose tolerance test On: 56-Zar-845554:57 Request CULTURE, SPUTUM (03962)Indication: Cough On: 06-Rht-910814:39 Request ACID FAST STAIN (AFB) (69526)Indication: Cough On: 17-Ktt-869190:38 Request TSH (56816)Indication: Other hyperlipidemia On: : Request URINALYSIS, W/ MICRO (08288)Indication: Essential hypertension On: :21 Request CBC WITH MANUAL DIFF (82861)Indication: Abnormal glucose tolerance test On: :21 Request METABOLIC PANEL, COMPREHENSIVE (23795)Indication: Abnormal glucose tolerance test On: :21 Request MICROALBUMIN: CREATININE RATIO (33141) AND (94709)Indication: Abnormal glucose tolerance test On: :21 Request LIPID PANEL (50919)Indication: Other hyperlipidemia On: :20 Request CBC WITH MANUAL DIFF (70540)Indication: Abnormal glucose tolerance test On: : Request METABOLIC PANEL, COMPREHENSIVE (77717)Indication: Abnormal glucose tolerance test On: 64-Ngf-905658:26 Request CULTURE, SPUTUM (29630)Indication: Cough On: 75-Fia-890346:18 Request LIPID PANEL (39156)Indication: Other hyperlipidemia On: 32-Srd-411191:14 Request TSH (74052)Indication: Swelling of limb On: 52-Tlz-36854:58 Request METABOLIC PANEL, COMPREHENSIVE (86037)Indication: Swelling of limb On: :58 Request CBC WITH MANUAL DIFF (76821)Indication: Swelling of limb On: :58 Request BNTP (12581)Indication: Swelling of limb On: :58 Request CULTURE, SPUTUM (74945)Indication: Cough On: :56 Request PSA (PROSTATE SPECIFIC ANTIGEN) (V76.44)Indication: Screening for prostate cancer On: 35-Fby-795155:19 Request URINALYSIS, W/ MICRO (93659)Indication: Abnormal glucose tolerance test On: 83-Yrb-767271:18 Request MICROALBUMIN: CREATININE RATIO (24318) AND (87010)Indication: Abnormal glucose tolerance test On: 44-Kjg-826310:18 Request METABOLIC PANEL, COMPREHENSIVE (07057)Indication: Essential hypertension On: 09-Vhy-242707:18 Request LIPID PANEL (66533)Indication: Other hyperlipidemia On: 53-Yss-869233:18 Request PSA (PROSTATE SPECIFIC ANTIGEN) (V76.44)Indication: Screening for prostate cancer On: :40 Request MICROALBUMIN: CREATININE RATIO (16279) AND (80431)Indication: Abnormal glucose tolerance test On: :40 Request METABOLIC PANEL, COMPREHENSIVE (67928)Indication: Abnormal glucose tolerance test On: :40 Request Urine Protein Electrophoresis (UPEP) (91206)Indication: recurrent uri On: :39 Request Serum Protein Electrophoresis (SPEP) (88673)Indication: recurrent uri On: :39 Request IMMUNOGLOBULIN E (IgE) (28246)Indication: Asthma, intrinsic, with status asthmaticus On: :39 Request IGA/IGD/IGG/IGM-EACH (82272)Indication: Asthma, intrinsic, with status asthmaticus On: :39 Request LIPID PANEL (09016)Indication: Other hyperlipidemia On: :38 Request ASPERGILLUS AG, EIA (31006)Indication: Cough On: :58 Request SED RATE ERYTHROCYTE (57893)Indication: Cough On: 62-Rqs-564898:48 Request C-REACTIVE PROTEIN (88361)Indication: Cough On: :48 Request CBC WITH MANUAL DIFF (42414)Indication: Cough On: 93-Jaw-343040:47 Request Quantiferron gold test (00229)Indication: Cough On: :45 Request CULTURE, SPUTUM (76964)Indication: Cough On: :45 Request VITAMIN B-12 (CYANOCOBALAMIN) (55636)Indication: Fatigue On: :20 Request Vitamin D Hydroxy (13220)Indication: Fatigue On: 42-Xfi-704693:20 Request CBC WITH MANUAL DIFF (07901)Indication: Abnormal glucose tolerance test On: :19 Request METABOLIC PANEL, COMPREHENSIVE (10784)Indication: Abnormal glucose tolerance test On: :19 Request LIPID PANEL (16381)Indication: Other hyperlipidemia On: :19 Request URINALYSIS, W/ MICRO (89689)Indication: Abnormal glucose tolerance test On: :19 Request HEMOGLOBIN GLYCLATED (HGB A1C) (87330)Indication: Abnormal glucose tolerance test On: :19 Request WARREN CULTURE-OTHER (73364)Indication: Pharyngitis, acute On: 87-Lcn-807047:05 Request URINE WARREN CULTURE-MASSIEL COL COUNT (46648)Indication: Abdominal pain, acute, right lower quadrant On: :19 Request CBC WITH MANUAL DIFF (89974)Indication: Abnormal glucose tolerance test On: :08 Request METABOLIC PANEL, COMPREHENSIVE (32679)Indication: Abnormal glucose tolerance test On: :08 Request TSH (08040)Indication: Fatigue On: :02 Request CBC WITH MANUAL DIFF (29862)Indication: Abnormal glucose tolerance test On: :45 Request METABOLIC PANEL, COMPREHENSIVE (11562)Indication: Hypertension, benign On: :45 Request LIPID PANEL (96492)Indication: Other hyperlipidemia On: :45 Request METABOLIC PANEL, COMPREHENSIVE (21047)Indication: Essential hypertension On: 02-Zxv-072625:16 Request LIPID PANEL (27750)Indication: Other hyperlipidemia On: 53-Gcr-746321:15 Request URINE WARREN CULTURE-MASSIEL COL COUNT (61816)Indication: Calcium kidney stone On: 99-Bdu-826386:54 Request PSA (PROSTATE SPECIFIC ANTIGEN) (V76.44)Indication: Enlarged prostate with lower urinary tract symptoms On: 01-Jxd-618426:09 Request METABOLIC PANEL, COMPREHENSIVE (74055)Indication: Abnormal glucose tolerance test On: 37-Ogl-945765:09 Request CBC WITH MANUAL DIFF (98919)Indication: Abnormal glucose tolerance test On: 84-Vus-186933:09 Request LIPID PANEL (47826)Indication: Other hyperlipidemia On: 64-Swj-901575:09 Request MICROALBUMIN: CREATININE RATIO (64393) AND (35985)Indication: Abnormal glucose tolerance test On: 43-Jvt-579237:09 Request LIPID PANEL (82067)Indication: Other hyperlipidemia On: :31 Request CBC WITH MANUAL DIFF (13363)Indication: Abnormal glucose tolerance test On: :31 Request METABOLIC PANEL, COMPREHENSIVE (71602)Indication: Abnormal glucose tolerance test On: :30 Request MICROALBUMIN: CREATININE RATIO (45558) AND (28532)Indication: Abnormal glucose tolerance test On: 05-Otp-784386:28 Request METABOLIC PANEL, COMPREHENSIVE ([id number])Indication: Abnormal glucose tolerance test On: 5-Ivr-876301:07 Request LIPID PANEL ([id number])Indication: Other hyperlipidemia On: 6-Iez-580299:07 Request PSA (PROSTATE SPECIFIC ANTIGEN) (V76.44)Indication: Enlarged prostate with lower urinary tract symptoms On: 4-Tdq-407090:49 Request METABOLIC PANEL, COMPREHENSIVE ([id number])Indication: Essential hypertension On: 0-Bvn-621251:48 Request LIPID PANEL ([id number])Indication: Other hyperlipidemia On: :48 Request HEPATIC FUNCTION PANEL ([id number])Indication: Other hyperlipidemia On: :21 Request LIPID PANEL ([id number])Indication: Other hyperlipidemia On: :21 Request CBC WITH MANUAL DIFF ([id number])Indication: Abnormal glucose tolerance test On: :53 Request METABOLIC PANEL, COMPREHENSIVE ([id number])Indication: Abnormal glucose tolerance test On: 5-Ofn-615343:53 Request MICROALBUMIN: CREATININE RATIO ([id number]) AND ([id number])Indication: Abnormal glucose tolerance test On: 0-Jrf-321101:53 Request HEPATIC FUNCTION PANEL ([id number])Indication: Other hyperlipidemia On: 7-Mgv-471075:53 Request LIPID PANEL ([id number])Indication: Other hyperlipidemia On: 8-Qlb-724982:53 Request GLUCOSE TOLERANCE TEST (GTT) 2 hour On: 1-Bob-793968:36 Request ([id number]) TSH ([id number])Indication: Dizziness and giddiness On: 60-Gtn-629070:15 Request LIPID PANEL ([id number])Indication: Other hyperlipidemia On: 53-Bqm-643982:15 Request CBC WITH MANUAL DIFF ([id number])Indication: Dizziness and giddiness On: 75-Qoe-257574:15 Request METABOLIC PANEL, COMPREHENSIVE ([id number])Indication: Dizziness and giddiness On: 37-Tdr-714324:15 Request HEPATIC FUNCTION PANEL ([id number])Indication: Other hyperlipidemia On: :39 Request LIPID PANEL ([id number])Indication: Other hyperlipidemia On: 94-Gak-991269:39 Request HEPATIC FUNCTION PANEL ([id number])Indication: Other hyperlipidemia On: 66-Azl-631948:31 Request LIPID PANEL ([id number])Indication: Other hyperlipidemia On: 12-Kmv-475823:31 Request WARREN CULTURE-BLOOD ([id number])Indication: fever On: 4-Dig-785975:58 Request METABOLIC PANEL, COMPREHENSIVE ([id number])Indication: fever On: 5-Zly-105999:58 Request CBC WITH MANUAL DIFF ([id number])Indication: fever On: :58 Request WARREN CULTURE-OTHER ([id number])Indication: Pharyngitis, acute On: 27-Syk-438968:35 Request PSA (Prostate Specific Antigen), Screening ([id number])Indication: Other hyperlipidemia On: :32 Request LIPID PANEL ([id number])Indication: Other hyperlipidemia On: :31 Request URINALYSIS W/O MICRO ([id number])Indication: Hypertension, benign On: :31 Request TSH ([id number])Indication: Hypertension, benign On: :31 Request CBC WITH MANUAL DIFF ([id number])Indication: Hypertension, benign On: :31 Request METABOLIC PANEL, COMPREHENSIVE ([id number])Indication: Hypertension, benign On: :31 Request Creatine Kinase Total ([id number])Indication: Myalgia and myositis On: 3-Wtk-391276:24 Request SED RATE ERYTHROCYTE ([id number])Indication: Arthralgia On: :23 Request C-REACTIVE PROTEIN ([id number])Indication: Arthralgia On: :23 Request RHEUMATOID FACTOR-QUANT ([id number])Indication: Arthralgia On: :23 Request JOHN (ANTINUCLEAR ANTIBODY) ([id number])Indication: Arthralgia On: :23 Request Planned Encounters Medical; [facility] 3 Month FU - On: 21-Mar-2018 8:30 [facility] Fast DO, Adelaida A Fast DO, Adelaida A Planned Procedures PNEUM VAC ADLT/IMUMNOSPR, On: 06-Dec-2017 Intent SBC/INTRM ([id number])By: Flakito ACKERMAN, Comments: lot: [id number]: ite/route: L del/IMamt: 0.5mLVIS signed when applicableEVER Monroy Adelaida A Fast DO, Adelaida A Cartoid DopplerBy: Fast DO, Adelaida On: 06-Sep-2017 Intent A Fast DO, Adelaida A Radiology - Lumbar SpineBy: Fast On: 06-Jun-2017 Intent DO, Adelaida A Fast DO, Adelaida A ELECTROCARDIOGRAM, COMPLETE (ECG) On: 06-Jun-2017 Intent ([id number])By: Fast DO, Adelaida A Fast Comments: ekg [...] XRAY, PA & LATERAL On: 18-Jan-2017 Intent ([id number])By: Yola Witt Aerosol Treatment ([id number])By: On: 18-Jan-2017 Intent Yola Witt Solu -Medrol Injection, 125 mg On: 18-Jan-2017 Intent ([id number])By: Yola Witt Comments: solumedrol 125mg injectionlot: [id number]: 12/2018L 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, 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 (ECG) On: 05-Jan-2016 Intent ([id number])By: Flakito ACKERMAN Adelaida A Flakito Comments: ekg showed normal sinus rhythym, normal axis, no acute st/t wave changes irbb DO, Adelaida A Solu -Medrol Injection, 125 mg On: 09-May-2015 Intent ([id number])By: Samantha Grewal CNP Comments: lot: [id number]: ite/route:RGM/IMamt: 2mLVIS signed when applicableEVER Dumont Aerosol Treatment ([id number])By: On: 09-May-2015 Intent 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, [facility]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- PA and [...] A Fast DO, Adelaida A Pulse Oximetry ([id number])By: Fast On: 26-Aug-2014 Intent DO, Adelaida A Fast DO, Adelaida A Comments: 94%- recheck 95 Aerosol Treatment ([id number])By: On: 10-Apr-2014 Intent Tracey Young LPN Eprescribed prescriptions On: 25-Jul-2013 Intent (G8553)By: Fast DO, Adelaida A Fast DO, Adelaida A Pulse Oximetry ([id number])By: Fast On: 02-Jul-2013 Intent DO, Adelaida A Fast DO, Adelaida A Comments: 97% Aerosol Treatment ([id number])By: On: 25-Jun-2013 Intent Samantha Grewal CNP Eprescribed prescriptions On: 25-Jun-2013 Intent ([id number])By: Samantha Grewal CNP Eprescribed prescriptions On: 02-Apr-2013 Intent ([id number])By: Leigh Ann Polk Aerosol Treatment ([id number])By: On: 26-Mar-2013 Intent Samantha Grewal CNP Eprescribed prescriptions On: 26-Mar-2013 Intent (G8553)By: Eliana Carter Eprescribed prescriptions On: 25-Dec-2012 Intent (G8553)By: Leigh Ann Polk Aerosol Treatment ([id number])By: On: 06-Nov-2012 Intent Samantha Grewal CNP Eprescribed prescriptions On: 06-Nov-2012 Intent (G8553)By: Eliana Carter Ear Irrigation ([id number])By: Carmina On: 25-Sep-2012 Intent Samantha IRVIN Comments: Ear Irrigation performed on:bilateralAmount/color removed cerumen:large amount of dark brown wax removedOUtcome:clear, pt toleratedUsed wax curettes Wax CurettesBy: Carmina IRVINSamantha On: 25-Sep-2012 Intent Eprescribed prescriptions On: 22-Sep-2012 Intent ([id number])By: Elizabet Green DO Eprescribed prescriptions On: 02-Aug-2012 Intent (G8553)By: Leigh Ann Polk Pulse Oximetry ([id number])By: Flakito On: 30-Jun-2012 Intent DO, Adelaida A Fast DO, Adelaida A Comments: 97% Eprescribed prescriptions On: 12-Jun-2012 Intent ([id number])By: Fast DO, Adelaida A Fast DO, Adelaida A Spirometry ([id number])By: Felicitas, On: 17-Jan-2012 Intent Leigh Ann Comments: good effort and curve mild restriction CT - Sinuses CompleteBy: Fast DO, On: 17-Jan-2012 Intent Adelaida A Fast DO, Adelaida A PNEUM VAC ADLT/IMUMNOSPR, On: 17-Jan-2012 Intent SBC/INTRM ([id number])By: Boris, Comments: Lot:[id number]:3-5-13Dose:0.5mLRoute:IMSite:L sreeGiven By:CHELA signed Julia IMMUNIZ ADMNIN, 1 VAC, SNGL/COMBO On: 17-Jan-2012 Intent ([id number])By: Julia Escalante CT - ChestBy: Fast DO, Adelaida A On: 17-Jan-2012 Intent Fast DO, Adelaida A Eprescribed prescriptions On: 17-Jan-2012 Intent (G8553)By: Leigh Ann Polk Eprescribed prescriptions On: 18-Oct-2011 Intent (G8553)By: Fast DO, Adelaida A Fast DO, Adelaida A EKG ([id number])By: Fast DO, Adelaida A On: 15-Oct-2011 Intent Fast DO, Adelaida A Comments: ekg- sinus with normal axis and nsivcd and no acute changes Eprescribed prescriptions On: 09-Aug-2011 Intent (G8553)By: Fast DO, Adelaida A Fast DO, Adelaida A PFT - CompleteBy: Fast DO, Adelaida On: 08-Mar-2011 Intent A Fast DO, Adelaida A Pulse Oximetry ([id number])By: Ciesa On: 02-Feb-2011 Intent ALBARO Samantha Taylor Aerosol Treatment ([id number])By: On: 02-Feb-2011 Intent Cialyse IRVIN Samantha Taylor Radiology - Chest- PA and LatBy: On: 18-Jan-2011 Intent Fast DO, Adelaida A Fast DO, Adelaida A Pulse Oximetry ([id number])By: On: 18-Jan-2011 Intent Leigh Ann Polk Comments: 93% TDAP VACCINE >7 IM ([id number])By: On: 07-Dec-2010 Intent Leigh Ann Polk Comments: Lot #:[id number] date:mount given:0.5mlRoute: IMSite given:left deltGiven by: DANIEL Zavaleta Eprescribed prescriptions On: 07-Dec-2010 Intent (G8553)By: Fast DO, Adelaida A Fast DO, Adelaida A FLU VAC, SPLIT, >3 YEARS, On: 07-Dec-2010 Intent INTRAMUSC ([id number])By: Felicitas, Comments: received at work Leigh Ann Toradol Injection, 30 mg On: 05-Nov-2010 Intent ([id number])By: Elizabet Green DO Comments: Lot:[id number]:apr 05Amt:30mg/mlRoute:IMSite:left hip Given By: ILDA Tran Ear Irrigation ([id number])By: Peter On: 05-Nov-2010 Elizabet Thomson DO Comments: Left ear irrigated, large amt of wax removed. pt tolerated well. Eprescribed prescriptions On: 05-Nov-2010 Intent (G8553)By: Elizabet Green DO Wax CurettesBy: Peter ACKERMAN, On: 05-Nov-2010 Intent Elizabet SPECIMEN HNDLNG/TRNSPRT, OFFC > On: 05-Nov-2010 Intent LAB ([id number])By: Elizabet Green DO Nuclear Medicine - HIDA [...] call wet read DO, Adelaida A Spirometry ([id number])By: Fast DO, On: 14-Sep-2010 Intent Adelaida A Fast DO, Adelaida A Comments: good effort and curve- mild restriction Eprescribed prescriptions On: 14-Sep-2010 Intent (G8553)By: Fast DO, Adelaida A Fast DO, Adelaida A Pulse Oximetry ([id number])By: Fast On: 14-Sep-2010 Intent DO, Adelaida A Fast DO, Adelaida A Comments: 94-95 Radiology - Chest- PA and LatBy: On: 14-Sep-2010 Intent Fast DO, Adelaida A Fast DO, Adelaida A Pulse Oximetry ([id number])By: Carmina On: 23-Feb-2010 Intent ALBARO Anamaria Aerosol Treatment ([id number])By: On: 23-Feb-2010 Intent Ciescalin IRVIN Anamaria Pulse Oximetry ([id number])By: Carmina On: 26-Jan-2010 Intent ALBARO Anamaria Aerosol Treatment ([id number])By: On: 26-Jan-2010 Intent Carmina IRVIN Anamaria Spirometry ([id number])By: Felicitas On: 29-Apr-2008 Intent Leigh Ann Comments: good effort and curve normal EKG ([id number])By: Fast DO, Adelaida A On: 20-Apr-2007 Intent [...] DO, Adelaida A Flakito Comments: Lot #: [id number] date: 10/30Amount given: 2 gramsRoute: IMSite given: Right hip and left hipGiven by: Calin Townsend LPN DO, Adelaida A Spirometry (66356)By: Fast DO, On: 27-Mar-2007 Intent Adelaida A Fast DO, Adelaida A Comments: good effort and curve normal EBV SEROLOGIC TESTBy: Mary Ann Salcido On: 17-Feb-2007 Intent RUDY-GUZMAN VCA ANTIBODY On: 16-Feb-2007 Intent MEASUREMENTBy: Mast RN, Negrita SPECIMEN HNDLNG/TRNSPRT, OFFC > On: 06-Feb-2007 Intent LAB ([id number])By: Fast DO, Adelaida A Fast DO, Adelaida A Ultrasound - TesticularBy: Fast On: 13-Oct-2006 Intent DO, Adelaida A Fast DO, Adelaida A Inhaler Demo ([id number])By: Flakito DO, On: 26-Sep-2006 Intent Adelaida A Fast DO, Adelaida A Radiology - Hip - LeftBy: Fast On: 26-Sep-2006 Intent DO, Adelaida A Fast DO, Adelaida A Radiology - Hip - RightBy: Fast On: 26-Sep-2006 Intent DO, Adelaida A Fast DO, Adelaida A Bio Z ([id number])By: Fast DO, Adelaida A On: 25-Jul-2006 Intent Fast DO, Adelaida A Comments: normal paremters Six Minute Walk Assessment On: 25-Jul-2006 Intent ([id number])By: Fast DO, Adelaida A Fast DO, Adelaida A Radiology - Chest- PA and LatBy: On: 25-Jul-2006 Intent Fast DO, Adelaida A Fast DO, Adelaida A Spirometry ([id number])By: Flakito ACKERMAN, On: 25-Jul-2006 Intent Adelaida A Fast DO, Adelaida A Comments: good effort and curve- normal EDISON (Ankle Brachial Index) On: 20-Jul-2006 Intent ([id number])By: Leigh Ann Polk Comments: done EDISON (Ankle Brachial Index) On: 17-May-2006 Intent ([id number])By: Fast DO, Adelaida A Fast DO, Adelaida [...] Advance Directives Name Dates Details Immunization Registry [place] - Effective on Effective: 31-Jan-201701/31/2017. Expiration date [...] ab neg- he was g oing to [facility] 2-3 times a week for a while [...] he is going to go to the 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 and getting cystoscopy done and was found to be retaining urine- - by the next night he was sick with no appetitie and just felt bad went to bed - woke up next day- and felt bad- and went to [facility]- and had uti- was there 2 [...] up hospital : Pt was transfered to [facility] for heart cath and discharged sat 06/30/13.- he had heart cath again at [facility] and one vessel which shows 20percent [...] compliant with instructions. Current medication use: no joés luis End: 18-Oct-2011 9:04 e effects and [...] [facility] col[facility]ocopy- -his breathing [...] with instructions. Current medication use: no josé lius End: 02-Dec-2009 8:13 e effects and compliant [...] saw a Dr Barker a psychiatrist in [place]- he thought mostly anxiety so left him [...] gerd- so he is going back to [facility]- mood good with celexa-less tense, [ADDITIONAL [...] with focusing- and racing thoughts - [facility] has been able to [...]
--- OUTSIDE RECORDS SUMMARY | 2018-05-15 00:45 | XMS RPT_ITS | Continuity of Care Document ---
:1950 Author Organization [facility] Address [address] [place] [address] Phone Care Team Providers Name Role Phone Adelaida Fraga DO Unavailable Remigio Lares MD Unavailable Tawanda Alonso Unavailable [facility] Unavailable Eliana Carter Unavailable [...] colonsoocpy 09/05- polyps - repeat 5 years [facility] Status: Active Coronary artery disease (I25.10, [...] Solution daily for 90 days Quantity: 3 {[place]} Refills: 5 Ordered:31-Oct-2017 Adelaida Fraga DO, DO, Debra A Start : 31-Oct-2017 Active BusPIRone HCl 30 MG Oral Tablet 1 Tablet bid for 90 days Quantity: 180 {Tablet} Refills: 3 Ordered:28-Feb-2018 DOManoloa AFast DO, Adelaida A Start : 28-Feb-2018 [...] Quantity: 60 {Tablet} Refills: 0 Ordered:02-Nov-2017 Flakito DOManoloa AFast DO, Adelaida A Start : 02-Nov-2017 Active Comments:sixtyDX: M54.16, M51.13189,411,000 - OD risk 100 Lunesta 3 MG Oral Tablet 1 (one) Tablet q hs for 30 days Quantity: 30 {Tablet} Refills: 2 Ordered:06-Dec-2017 Fast DO, Adelaida AFast DO, Adelaida A Start : 06-Dec-2017 Active MetFORMIN HCl ER 500 MG Oral Tablet Extended Release 24 Hour 2 (two) Tablet ER 24HR qd for 0 days Quantity: 180 {Tablet} Refills: 3 Ordered:06-Sep-2017 Fast DO, Adelaida AFast DO, Adelaida A Start : 06-Sep-2017 Active Myrbetriq 50 MG Oral Tablet Extended Release 24 Hour 1 tab Tablet ER 24HR daily for 90 days Quantity: 90 {Tablet} Refills: 2 Ordered:29-Aug-2017 Eliana Carter Start : 29-Aug-2017 Active NITRO-DUR, 0.6MG/HR (Transdermal Patch 24 Hour) 1 (one) Patch 24HR qd for 0 days Quantity: 30 {Unspecified} Refills: 0 Ordered:25-Jul-2013 Flakito ACKERMAN Adelaida TOPETEtesfaye Adelaida Layton Start : 25-Jul-2013 Active Protonix 40 MG Oral Tablet Delayed Release [address] bid for 0 days Quantity: 180 {Tablet} Refills: 3 Ordered:06-Jun-2017 Flakito ACKERMAN Adelaida Larios DO Adelaida A Start : 06-Jun-2017 Active Proventil HFA 108 (90 Base) MCG/ACT Inhalation Aerosol Solution 2 (two) Aerosol Soln qid, prn for 30 days Quantity: 1 {Aerosol_Soln} Refills: 3 Ordered:06-Apr-2016 Flakito ACKERMAN Adelaida Larios DO Adelaida A Start : 06-Apr-2016 Active Ranexa 500 MG Oral Tablet Extended Release 12 Hour 2 (two) Tablet ER 12HR bid for 0 days Quantity: 120 {Tablet} Refills: 0 Ordered:06-Apr-2016 Flakito ACKERMAN Adelaida Larios DO Adelaida A Start : 06-Apr-2016 Active Rosuvastatin Calcium 40 MG Oral Tablet 1 (one) Tablet qd for 0 days Quantity: 30 {Tablet} Refills: 6 Ordered:20-Feb-2018 Flakito ACKERMAN Adelaida Larios DO Adelaida A Start : 20-Feb-2018 Active Singulair 10 MG Oral Tablet 1 (one) Tablet qd for 0 days Quantity: 90 {Tablet} Refills: 2 Ordered:13-Feb-2018 Adelaida Fraga DO, DO Adelaida A Start : 13-Feb-2018 Active ASMANEX 120 METERED DOSES, 220MCG/INH (Inhalation Aerosol Powder Breath Activated) 2 (two) Aero Pow Br Act qd for 0 days Quantity: 1 {Aero_Pow_Br_Act} Refills: 3 Ordered:08-May-2007 Makeda Mejia Start : 08-May-2007 End : 08-Aug-2007 Inactive Comments:rinse mouth after use Ativan 0.5 MG Oral Tablet 1 (one) Tablet qd, prn for 30 days Quantity: 30 {Tablet} Refills: 0 Ordered:04-Jan-2018 Adelaida Fraga DO, DO Adelaida A Start : 04-Jan-2018 End : 03-Feb-2018 Inactive Comments:thirtyAnxiety/Depression F41.9340,411,000 - OD risk 100 Atorvastatin Calcium 40 MG Oral Tablet 1 (one) Tablet Tablet qd for 0 days Quantity: 30 {Tablet} Refills: 3 Ordered:06-Sep-2017 Flakito ACKERMAN Adelaida Larios DO Adelaida A Start : 27-Jun-2017 End : 06-Sep-2017 Inactive AUGMENTIN, 875-125MG (Oral Tablet) 1 (one) Tablet BID for 14 days Quantity: 28 {Tablet} Refills: 0 Ordered:12-Jun-2012 Flakito ACKERMAN Adelaida Larios DO Adelaida Layton Start : 12-Jun-2012 End : 26-Jun-2012 Inactive [...] than 1qd and would require pa at [phone] or [phone] - sent in this way to see if will process -- no id number was given = Karely Diflucan 150 MG Oral Tablet 1 (one) Tablet daily for 7 days Quantity: 7 {Tablet} Refills: 0 Ordered:28-Jan-2017 Adelaida Fraga DOtesfaye Adelaida Layton Start : 28-Jan-2017 End : 04-Feb-2017 Inactive [...] Refills: 0 Ordered:05-Sep-2012 Adelaida Fraga DOtesfaye Adelaida Layton Start : 02-Aug-2012 End : 01-Sep-2012 Inactive Comments:SIXTY Levaquin 500 MG Oral Tablet 1 (one) Tablet daily for 5 days Quantity: 5 {Tablet} Refills: 0 Ordered:15-Jul-2017 Adelaida Fraga DOtesfaye Adelaida Layton Start : 15-Jul-2017 End : 20-Jul-2017 Inactive LEVOFLOXACIN, 500MG (Oral Tablet) 1 (one) Tablet daily for 7 days Quantity: 7 {Tablet} Refills: 0 Ordered:03-Sep-2013 Samantha Grewal CNP Start : 03-Sep-2013 End : 10-Sep-2013 Inactive LUNESTA, 2MG (Oral Tablet) 1 qhs / HS for 0 days Refills: 0 Ordered:29-Jan-2008 Makeda Mejia End : 06-Feb-2007 Inactive MACROBID, 100MG (Oral Capsule) 1 (one) Capsule Capsule bid u3owsbz for 21 days Quantity: 42 {Capsule} Refills: 0 Ordered:21-Jan-2014 Adelaida Fraga DO, DO, Adelaida Layton Start : 21-Jan-2014 End : 11-Feb-2014 Inactive MUCINEX, 600MG (Oral Tablet Extended Release 12 Hour) 1 Tablet ER 12HR bid for 14 days Refills: 0 Ordered:09-Mar-2010 Samantha Grweal CNP Start : 23-Feb-2010 End : 09-Mar-2010 Inactive NASACORT AQ, 55MCG/ACT (Nasal Aerosol Solution) 2 (two) Aerosol Soln daily for 0 days Quantity: 1 {Aerosol_Soln} Refills: 3 Ordered:05-Nov-2010 Yola Sampson LPN Start : 02-Sep-2010 End : 05-Nov-2010 Inactive NYSTATIN, 836762IUJU/ML (Mouth/Throat Suspension) 10 cc tid for 0 [...] : 22-Jun-2013 End : 03-Sep-2013 Inactive ZOSTAVAX, 22797CIV/0.65ML (Subcutaneous Solution Reconstituted) 1 For Solution sc [...] days Quantity: 1 {Aero_Pow_Br_Act} Refills: 1 Ordered:25-Dec-2012 Fast DO, Adelaida AFast DO, Adelaida A Start : 25-Dec-2012 End : 25-Dec-2012 Discontinued ADVAIR HFA, 230-21MCG/ACT (Inhalation Aerosol) 2 puffs Aerosol bid for 90 days Quantity: 3 {Inhaler} Refills: 3 Ordered:10-Apr-2014 Slarb HOME RESTORATION SERVICE CLEANER, Tracey Start : 22-Jun-2013 End : 10-Apr-2014 Discontinued ATENOLOL, 50MG (Oral Tablet) 1 tab Tablet qd for 30 days Quantity: 30 {Tablet} Refills: 0 Ordered:10-Apr-2014 Slarb [employer]OR[employer] SERVICE CLEANER, Tracey Start : 12-Jun-2012 End : 10-Apr-2014 [...] days Quantity: 20 {Tablet} Refills: 0 Ordered:12-Jun-2012 Fast DO, Adelaida AFast DO, Adelaida A [...] Quantity: 60 {Capsule} Refills: 3 Ordered:10-Apr-2014 Slarb [employer] RESTORATION SERVICE CLEANER, Tracey Start : 29-Oct-2013 End : 10-Apr-2014 Discontinued Dymista 137-50 MCG/ACT Nasal Suspension 1 spray each nostril qd for 0 days Quantity: 2 {[place]} Refills: 0 Ordered:11-Jun-2016 Leigh Ann Polk Start [...] Start : 05-Jan-2016 End : 06-Apr-2016 Discontinued Comments:[id number] viewed and approved- gave scripts to [...] for 0 days Refills: 0 Ordered:12-Aug-2008 Flakito ACKERMANAdelaida DO Adelaida A End : 25-Jul-2013 Discontinued Comments:This order discontinued per [facility]. OXYBUTYNIN CHLORIDE ER, 10MG (Oral Tablet Extended Release 24 Hour) 1 (one) Tablet ER 24HR qd for 0 days Quantity: 30 {Tablet} Refills: 0 Ordered:23-Sep-2014 Flakito ACKERMANManoloa Manolo Larios DOa A Start : 23-Sep-2014 End : 23-Sep-2014 [...] Quantity: 60 {Capsule_DR} Refills: 2 Ordered:05-Oct-2010 Adelaida DO, Debra A Start : 05-Oct-2010 End : 05-Oct-2010 Discontinued QVAR, 40MCG/ACT (Inhalation Aerosol Solution) 1 Aerosol Soln daily for 360 days Refills: 0 Ordered:06-Jan-2015 Manoloa Harriet DO, Adelaida A Start : 06-Jan-2015 End [...] days Quantity: 42 {Tablet} Refills: 0 Ordered:06-Jan-2015 Flakito DOManoloa AFast DO, Adelaida A Start : 06-Jan-2015 End : 06-Jan-2015 Discontinued ZITHROMAX Z-PHUC, 250MG (Oral Tablet) tad Tablet qd for 0 days Quantity: 6 {Package} Refills: 0 Ordered:10-Apr-2014 Slarb [employer]ICE CLE[employer]ER Tracey Start : 06-Feb-2014 End : 10-Apr-2014 [...] x3 one on scalp two on right congregational Status: Inactive as of 06-Jun-2017 Acute sinusitis, [...] Completed Comments: Removed 2005 Colonoscopy Completed Comments: 2006 lithotripsy of kidney stone Completed parathryoid surgery age 20 - partial Completed right rotator cuff surgery Completed Stent placed 07-27 Completed Tonsillectomy Completed Date Value Details 10-Jan-2018 Cardiology Visit Report Result: Comments: See Note; NOTES: [facility] 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 Stress test in 2018 narendra kimball: Stress nuclear study: imaging concerning for changes in the inferior distribution. Heart cath in 2018 demonstrated: Elevated Left Ventricular End Diastolic Pressure Normal LV size, wall motio n,and systolic function LVEF: by LV gram 65 % Solomon Multivessel CAD LAD stent: patent DX stent: patent RECOMMENDATIONS Risk factor modification Medical therapy Assessment AND Plan 1. Atheros clerosis of [place] coronary artery of [place] heart without angina pectoris I25.10 PTCA/RINA to [...] Code Off vis,est,level 3 Diagnoses Atherosclerosis of [place] coronary artery of [place] heart without angina pectoris I25.10 Solomon vs. tra nsplanted heart: [place] heart Essential hypertension I10 Hypertension type: essential hypertension Pure hypercholesterolemia E78.00; E78.0 Hyperlipidemia type: pure hypercholesterolemia Prinzmetal angin a I20.1 Coding Level of Care Code Off vis,est,level 3 Diagnoses Atherosclerosis of [place] coronary artery of [place] heart without angina pectoris I25.10 Solomon vs. transplanted heart: [place] heart Es sential hypertension I10 Hypertension type: essential hypertension Pure hypercholesterolemia E78.00; E78.0 Hyperlipidemia type: pure hypercholesterolemia Prinzmetal angina I20.1 01/10/18 1104 &#6 0;Electronically signed by Sabra KENDALL> Date Sabra KENDALL Cosigner Signature: Date (if applicable) CC: Adelaida Fraga DO 26-Sep-2017 Brain W/WO Contrast Result: Comments: See Note; NOTES: [facility] Imaging Services [address] [place] [address] Brain W/WO Contrast MR#: [id number] Acct: [id number] Name: YUMIKO LANDRUM Rep #: [id number] : 1950 M 67 From: Rodney Sarah MD PCP: Adelaida Fraga DO Status: REG CLI Study: Brain W/WO Contrast Date of Exam: 09/26/17 Exam# [id number] Ordering Dr: Perico Crowe MD STUDY: MRI [...] CC: Perico Crowe MD; Adelaida Fraga DO Component Assembler: Signed 17-Sep-2017 Carotid Duplex Ultrasound Result: Comments: See Note; NOTES: [facility] Cardiovascular Services [address] [place] [address] Carotid Duplex Ultrasound 09/16/17 1012 MR#: [id number] Acct: [id number] Name: YUMIKO MCCOLLUM Rep #: [id number] : 1950 66 From: Jung Garcia MD Attending Dr: Adelaida Fraga DO Status: REG CLI Ordering Dr: Adelaida Fraga DO Date: 09/16/17 Location: [facility] Sex: M C Admitted: Reason For Study: [...] the left vertebral artery. Procedure Carotid Duplex 85096. The study was technically difficult. Exam performed [...] Date Dictated: 1012 Date Transcribed: 09/17/17 151 Component Assembler: Signed 17-Aug-2017 History and Physical Exam Result: Comments: See Note; NOTES: [facility] Medical Records Department [address] [place] [address] History and Physical 08/17/17913 MR#: [id number] Acct: [id number] Name: FRANCISCO E Rep #: [id number] : 1950 66 From: Remigio Lares MD PCP: Adelaida Fraga DO Status: REG [facility] Location: [facility] Problem List (1) Abnormal stress test Status: Acute (2) Atherosclerotic heart d isease of [place] coronary artery without angina pectoris Status: Chronic Qualifiers: Solomon vs. transplanted heart: [place] heart Qualified Code(s): I25.10 - Atherosclerotic heart disease of [place] coron elise artery without angina pectoris Comment: [...] was trivial MR and TR and mild MI. His estimated RV systolic pressure was 30 [...] please see previously dictated out the patient ONONDAGA from 07/14/2017. Review of systems: Upon review [...] this approach. This note was generated with [employer] dictation software. It may contain incorrect words, spelling, and punctuation that were not noted in checking the note bef ore signing. 08/17/17 0925 <Electronically signed by Remigio Lares MD> Date Remigio Lares MD Cosigner Signature: Date (if applicable) CC: Adelaida Fraga DO; Remigio Lares MD Signed 11-Aug-2017 Chest PA and Lateral Result: Comments: See Note; NOTES: [facility] Imaging Services [address] [place] [address] Chest PA and Lateral MR#: [id number] Acct: [id number] Name: YUMIKO LANDRUM Rep #: [id number] : 1950 M 66 From: Will Guerrero MD PCP: Adelaida Fraga DO Status: REG CLI Study: Chest PA and Lateral Date of Exam: 08/11/17 Exam# [id number] Ordering Dr: Remigio Lares MD STUDY: X-RAY RASHMI REASON FOR EXAM: Male, 66 years old. [...] CC: Adelaida Fraga DO; Remigio Lares MD Component Assembler: Signed 02-Aug-2017 Stress Report Result: Comments: See Note; NOTES: [facility] Cardiovascular Services [address] [place] [address] MR#: [id number] Acct: [id number] Name: YUMIKO LANDRUM Rep #: [id number] : [birth year] 66 From: Remigio Lares MD [...] 72 %. This note was generated with [employer] software. It may contain incorrect words, spelling, and punctuation that were not noted in checking the note before signing. 08/02/17 3334 <Electronically signed by Remigio Lares MD> Date Remigio Lares MD CC: Adelaida Fraga DO; Remigio Lares MD Date Dictate d: 08/02/17 1632 Date Transcribed: 08/02/17 1639 Component Assembler: PM Signed 14-Jul-2017 Cardiology Visit Report Result: Comments: See Note; NOTES: [facility] [address] [place] [address] OFFICE VISIT Date of Service: 07/14/17 MR#: [id number] Acct: [id number] Name: YUMIKO LANDRUM Rep #: [id number] : 1950 Provider: Remigio Lares MD Age/Sex: 66/M Location: [facility] Status: Signed HPI HPI Details: YUMIKO LANDRUM, is a 66 M who presents to the office today for outpatient card iovascular consultation for history of underlying CAD status post LAD PCI. He has been cared for in the past both by the [facility] members (Drs. Griggs and Edwin), at [facility] by Dr. Rosales, and at [facility] by Dr. Maury Veliz. He states he lost saw Dr. Veliz approximately 1 year ago. He is now relocating his care locally. He has a history of underlying CAD. He underwent a previous diagnostic car diac catheterization on 08/11/2005 at [facility]. At that point in time he [...] no significant stenosis. In April 2008, at [facility], he had a repeat diagnostic [...] luminal irregularities. He apparently was transferred to [facility] for further evaluation and care. [...] an LYNDSEY inhibitor. He believes his former shrub planter remove these medications from ak s medication list. He does not recall [...] Prinzmetal angina (Acute) Atherosclerotic heart disease of [place] coronary artery without angina pectoris (Chroni c) [...] affect Assessment AND Plan 1. Atherosclerosis of [place] coronary artery of [place] heart without angina pectoris I25.10 PTCA/RINA to [...] Code Off vis,new,level 4 Diagnoses Atherosclerosis of [place] coronary artery of [place] heart without angina pectoris I25.10 Solomon vs. transplanted heart: n ative heart Presence of stent in coronary artery Z95.5 Hyperlipidemia, unspecified hyperlipidemia type E78.5 Hyperlipidemia type: unspecified Essential hypertension I10 Hypertension type: essential hype rtension COPD (chronic obstructive pulmonary disease) J44.9 Coding Level of Care Code Off vis,new,level 4 Diagnoses Atherosclerosis of [place] coronary artery of [place] heart without angina pectoris I 25.10 Solomon vs. transplanted heart: [place] heart Presence of stent in coronary artery Z95.5 Hyperlipidemia, unspecified hyperlipidemia type E78.5 Hyperlipidemia type: unspecified Essential hypertension I10 Hypertension type: essential hypertension COPD (chronic obstructive pulmonary disease) J44.9 07/14/17 1558 <Electronically signed by Remigio Lares MD> Date Remigio Lares MD Cosign Signature: Date (if applicable) CC: Adelaida Fraga DO 14-Jul-2017 12 Lead EKG performed by [facility] Result: Comments: See Note; NOTES: [facility] [address] [place] [address] 12 Lead EKG performed by [facility] 07/14/171435 MR#: [id number] Acct: [id number] Name: YUMIKO LANDRUM Rep #: [id number] : 1950 66 From: Remigio Lares MD Attending Dr: Remigio Lares MD Status: [facility] Ordering Dr: Remigio Lares MD Date: 07/14/17 Location: [facility] Sex: M C Admitted: [facility]/12 Lead EKG performed by [facility] ECG Report Interpretation Sinus Rhythm Right bundle branch block. ABNORMAL Electronically signed on 07/14/2017 at 17:15 by Remigio Lares 07/14/17 1717 Date Remigio Lares MD CC: Adelaida Fraga DO Date Dictated: 07/14/171435 Date Transcribed: 07/14/171435 Component Assembler: PM Signed 04-Jul-2017 TXT - Blood Flow Screening Result: Comments: See Note; NOTES: [facility] Cardiovascular Services [address] [place] [address] 07/04/17 0840 MR#: [id number] Acct: [id number] Name: YUMIKO LANDRUM Rep #: [id number] [...] (1.0 or greater). Ordering Physician: Adelaida Fraga [facility] Physician: Adelaida Fraga Performed By: Kayla Kelley, MORE, RVT 07/04/17 2222 Date Tyrese Garcia MD CC: Adelaida Fraga DO Date Dictated: 07/04/17 0840 Date Transcribed: 07/04/172221 Component Assembler: Signed 06-Jun-2017 L/S Spine Min 4 Views Result: Comments: See Note; NOTES: [facility] Imaging Services [address] [place] [address] L/S Spine Min 4 Views MR#: [id number] Acct: [id number] Name: YUMIKO LANDRUM Rep #: [id number] : 1950 M 66 From: Rafael Manley DO PCP: Adelaida Fraga DO Status: REG CLI Study: L/S Spine Min 4 Views Date of Exam: 06/06/17 Exam# [id number] Ordering Dr: Adelaida Fraga DO STUDY: X-RAY [...] Rafael Manley DO at 18:01 EDT Tel [phone], Service support , CC: Adelaida Fraga DO Component Assembler: Signed 18-Feb-2017 Ankle min 3 Views Result: Comments: See Note; NOTES: [facility] Imaging Services [address] [place] [address] Ankle min 3 Views MR#: [id number] Acct: [id number] Name: YUMIKO LANDRUM Rep #: [id number] OB: 1950 M 66 From: Trevon Carrillo MD PCP: Adelaida Fraga DO Status: REG CLI Study: Ankle min 3 Views Date of Exam: 02/18/17 Exam# [id number] Ordering Dr: Adelaida Fraga DO STUDY: X-RAY [...] 13:20 EST , Service support , CC: Adeliada Fraga DO Component Assembler: Signed 18-Feb-2017 Chest without Contrast Result: Comments: See Note; NOTES: [facility] Imaging Services [address] [place] [address] Chest without Contrast MR#: [id number] Acct: [id number] Name: YUMIKO LANDRUM Rep #: [id number] : 1950 M 66 From: Kaitlin Campoverde PCP: Adelaida Fraga DO Status: REG CLI Study: Chest without Contrast Date of Exam: 02/18/17 Exam# [id number] Ordering Dr: Adelaida Fraga DO STUDY: CT [...] Service support , CC: Adelaida Fraga DO Component Assembler: Signed 10-Feb-2017 Chest PA and Lateral Result: Comments: See Note; NOTES: [facility] Imaging Services [address] [place] [address] Chest PA and Lateral MR#: [id number] Acct: [id number] Name: YUMIKO LANDRUM Rep #: [id number] : 1950 M 66 From: Chava Fu MD PCP: Adelaida Fraga DO Status: REG CLI Study: Chest PA and Lateral Date of Exam: 02/10/17 Exam# [id number] Ordering Dr: Yola Witt STUDY: X-RAY CHEST [...] , CC: COCO Witt; Adelaida Fraga DO Component Assembler: Signed 18-Jan-2017 Chest PA and Lateral Result: Comments: See Note; NOTES: [facility] Imaging Services [address] [place] [address] Chest PA and Lateral MR#: [id number] Acct: [id number] Name: YUMIKO LANDRUM Rep #: [id number] : 1950 M 66 From: Erwin Jiménez MD PCP: Adelaida Fraga DO Status: REG CLI Study: Chest PA and Lateral Date of Exam: 01/18/17 Exam# [id number] Ordering Dr: Yola Witt STUDY: X-RAY CHES [...] EST Tel , Service support , CC: CANOE INSPECTOR FINALMayra Witt; Adelaida Fraga DO Component Assembler: Signed 11-Apr-2015 Chest PA and Lateral Result: Comments: See Note; NOTES: [facility] Imaging Services [address] [place] [address] Verdana 4d Chest PA and Lateral MR#: [id number] Acct: [id number] Name: YUMIKO LANDRUM Rep #: [id number] : 1950 M 64 From: Stephen Barba MD PCP: Adelaida Fraga DO Status: REG CLI Study: Chest PA and Lateral Date of Exam: 04/11/15 Exam# [id number] Ordering Dr: Adelaida Fraga DO STUDY: X-RAY [...] FACR at 20:20 EST , Service support [phone], RAD/Chest PA and Lateral IMPRESSION: Normal x-ray examination of the chest. No lingular infiltrate is noted on today's examination Electronically Signed: Stephen Barba MD, FACR at 20:20 EST , Service support [phone], CC: Adelaida Fraga DO Component Assembler: Signed 11-Apr-2015 Hip min 2 Views Result: Comments: See Note; NOTES: [facility] Imaging Services [address] [place] [address] Verdana 4d Hip min 2 Views MR#: [id number] Acct: [id number] Name: CITLALLI LANDRUM Brandon Rep #: [id number] : 1950 M 64 From: Stephen Barba MD PCP: Adelaida Fraga DO Status: REG CLI Study: Hip min 2 Views Date of Exam: 04/11/15 Exam# [id number] Ordering Dr: Adelaida Fraga DO ST UDY: [...] FACR at 20:19 EST , Service support [phone], RAD/Hip min 2 Views IMPRESSION: Normal x-ray examination of the pelvis and hip. Electronically Signed: Stephen Barba MD, FACR 201 07/23/18 at 20:19 EST , Service support [phone], CC: Adelaida Fraga DO Component Assembler: Signed 11-Apr-2015 L/S Spine Min 4 Views Result: Comments: See Note; NOTES: [facility] Imaging Services [address] [place] [address] Verdana 4d L/S Spine Min 4 Views MR#: [id number] Acct: [id number] Name: YUMIKO LANDRUM Rep #: [id number] : 1950 M 64 From: Stephen Barba MD PCP: Adelaida Fraga DO Status: REG CLI Study: L/S Spine Min 4 Views Date of Exam: 04/11/15 Exam# [id number] Ordering Dr: Susannah Fraga ra, DO STUDY: [...] FACR at 20:20 EST , Service support [phone], RAD/L/S Spine Min 4 Views IMPRESSION: M ild degenerative disc disease at L2-3 and L5-S1. Facet arthrosis at L4-5 and L5-S1. Mild dextroscoliosis. Electronically Signed: Stephen Barba MD, FACR at 20:20 EST Tel , Service support [phone], CC: Adelaida Fraga DO Component Assembler: Signed 27-Aug-2014 Chest PA and Lateral Result: Comments: See Note; NOTES: [facility] Imaging Services [address] [place] [address] Radiology Report MR#: [id number] Acct: [id number] Name: YUMIKO LANDRUM Rep #: [id number] : 1950 M 63 From: Wilfredo Alvarado MD PCP: Adelaida Fraga DO Status: REG CLI Study: Chest PA and Lateral Date of Exam: 08/27/14 Exam# [id number] Ordering Dr: Adelaida Fraga DO STUDY: X- [...] Wilfredo Alvarado MD at 15:46 EDT Tel [phone], Service support [phone], 0079 RAD/Chest PA and Lateral IMPRESSION: Inc reased markings in the lingular segment of the left upper lobe suggestive of early infiltrate. Followup is recommended. Electronically Signed: Wilfredo Alvarado MD at 15:46 EDT Tel [phone], Service support [phone], CC: Adelaida Fraga DO Component Assembler: Signed 02-Jul-2013 12 Lead Electrocardiogram Result: Comments: See Note; NOTES: [facility] Cardiovascular Services [address] [place] [address] 12 Lead EKG 06/17/13 1938 MR#: [id number] Acct: [id number] Name: CITLALLI LANDRUM Rep #: [id number] : 1950 62 From: Remigio Lares MD [...] ECG Confirmed by GERDA CALVO, REMIGIO ([id number]), publication editor MADELYN RUBALCAVA ([id number]) on 2013 10:04:35 AM Referred By: Jose Fernando Confirmed By:REMIGIO LARES MD CC: Adelaida byrd DO Date Dictated: 06/17/131937 Date Transcribed: 06/17/131937 Component Assembler: Signed 30-Jun-2013 Emergency Department Summary Result: Comments: See Note; NOTES: [facility] Medical Records Department [address] [place] [address] Emergency Department Summary MR#: [id number] Acct: [id number] Name: YUMIKO LANDRUM Rep #: [id number] : 1950 62 From: Jose Fernando MD PCP: Adelaida Fraga DO Status: DEP ER DATE OF SERVICE: 06/28/2013 CHIEF COMPLAINT: Chest pain. HISTORY OF PRESENT ILLNESS: The patient states over the past 8 hours, he has had intermittent discomfort in the chest of burning to ache similar to angina. He had an CO, he thinks, back in 2011 when he had a stent placed by Dr. Mariah carr in [facility]. He has been off his blood [...] a 3. He agreed to go to [facility] where his shrub planter is in case he needs another cath and stent. He was stable for transfer. I spoke with [facility], Jorge and Dr. Trujillo as needle setter accepted the patient after being advised of all the above through the transfer team physician. He did not want to talk to me. The patient is stable for transfer, with him. DIAGNOSES: 1. Chest pain. 2. Unstable angina. MD Abdullahi Vasquez C: Adelaida Fraga DO T: NTS JOB: [id number] 06/30/13 0021 <Electronically signed by Jose Fernando MD> Date Jose Fernando MD CC: Adleaida Fraga DO Date Dictated: 06/28/132254 Date Transcribed: 06/28/132254 Component Assembler: Signed 28-Jun-2013 Chest 1 View (Portable) Result: Comments: See Note; NOTES: [facility] Imaging Services [address] [place] [address] Radiology Report MR#: [id number] Acct: [id number] Name: YUMIKO LANDRUM Rep #: [id number] : 1950 M 62 From: Wilfredo Alvarado MD PCP: Adelaida Fraga DO Status: DEP ER Study: Chest 1 View (Portable) Date of Exam: 06/28/13 Exam# [id number] Ordering Dr: Jose Fernando MD STUDY: X-RAY [...] Wilfredo Alvarado MD at 9:06 EDT Tel [phone], Service support [phone], CC: Adelaida Fraga DO; Jose Fernando MD Component Assembler: Signed Immunization Name Dates Details Influenza vaccine, split, 3yrs &>, IM (AFLURIA) on: Nov-2017 Influenza, inj, MDCK, preservative free, q.valent on: 07-Dec-2016 Comments: Site: Lot #: [id number] Family History Unknown Family Member Name Dates [...] 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 [place], [place], [address] Absolute Lymph 1.76 {X10_3/ul} (Normal) Range: 0.83-4.51 [...] 4.6-6.2 WBC 5.7 K/mm3 (Normal) Range: 4.4-11.0 24-Ghu-888575:31 Comprehensive Metabolic Profil Comments: [facility] [address]ab[address] [place], [place], [address] ; fu 10-16 DF GAP 9 (Normal) [...] criteria.Please note revised GLUCOSE reference range /02/2018. 58-Nzl-285692:31 Hemoglobin A1c Comments: [facility] [address] [place], [place], [address] HGB A1C 6.0 % (Normal) Range: 4.2-6.3 04-Yce-053163:31 Lipid Profile Comments: [facility] [address] [place], [place], [address](164) VLDL 24 mg/dL (Normal) Range: 5-40 LDL [...] 200-240 mg/dL Borderline >240 mg/dL High Risk 84-Udz-463407:31 PSA,Total - Annual Screen Comments: [facility] [address] [place], [place], [address] PSA,TOT SCREEN 0.50 ng/mL (Normal) Range: 0.00-4.00 Comments: This test was performed using the TPSA assay method for theABS chemistry system. Values obtained with differentassay methods cannot be used interchangably.When changing PSA assays in the course of monitoring apatient, additional sequential testing should be carriedout to confirm baseline values. 75-Wgl-650607:42 Aspergillus Antibodies Comments: [facility] (refer to report for specific site)refer to report for address and phone number Asp. niger Negative (Normal) Asp. flavus Negative (Normal) Asp. fumigatus Negative (Normal) 97-Fuy-544076:42 Immunoglobulin E Comments: [facility] (refer to report for specific site)refer to report for address and phone number IMMUNO E 19 {IU/mL} (Normal) Range: 0-100 81-Umb-911420:42 Immunoglobulin G Comments: [facility] (refer to report for specific site)refer to report for address and phone number IMMUNO G 702 mg/dL (Normal) Range: 700-1600 Comments: Performed at: [address] [id number] Director: Joseph Velez MD, Phone: [phone] at: [place] [address] [id number] Director: Hugo Britt PhD, Phone: [phone] 67-Bgc-136209:42 Miscellaneous Lab Comments: Comments: [id number] CASTRORTTest(s) Ordered: [id number] [facility] [address] [place], [address] Procedure MIS Comments: TEST RESULT UNITS REFERENCE INTERVALA. fumigatus #1 Abs NEGATIVE NEGATIVE TESTING PERFORMED AT [facility]. O LAB (Normal) RIGINAL REPORT ON FILE IN LAB CONTAINS ADDITIONAL TEST SITE INFORMATION. TEST 1-Sey-676630:28 Acetylcholine Receptor Comments: Has Patient had Radioactive Injection for X-ray?: [facility] (refer to report for specific site)refer to report for address and phone number ACTYL ICVV02511 < 0.03 nmol/L (Normal) Range: 0.00-0.24 Comments: Negative: 0.00 - 0.24 Borderline: 0.25 - 0.40 Positive: > 0.40Performed at: [facility] [id number] Director: Joseph Velez MD, Phone: [phone] :28 BUN 9 mg/dL (Normal) Comments: [place] [address] [place], [id number] Range: 7-18 9-Vqq-237380:28 Serum Creatinine AND GFR Comments: [address] [place], [address] EST GFR - AA 100 mL/min (Normal) Comments: GFR Calc EST GFR 83 mL/min (Normal) Comments: Non- GFR Calc CREAT,SERUM 0.97 mg/dL (Normal) Range: 0.70-1.30 Comments: The validity of the calculated GFR AND GFRAA in patients over70 years has not been determined. Clinical correlation isessential. 38-Pbz-123231:13 Culture, Fungus 8482 Comments: [place] [address] [place], [address] CUF See Note Comments: Cu,Abtwnw2847 TESTING PERFORMED AT [facility]. ORIGINAL REPORT ON FILE IN LAB CONTAINS ADDITIONAL TEST SITE INFORMATION. (Normal) ORGANISM 1: Barron albicansAmount Growth Growth ORGANISM 2: Penicillium speciesAmount Growth Growth 86-Hzm-202770:13 Culture, Sputum Comments: [place] [address] [place], [address] CUSP See Note (Normal) Comments: Gram StainAcceptable Specimen? Yes (<25 Epithelial cells per/lpf) Gram Stain 2+ White Blood Cells 2+ Epithelial cells 4+ Gram positive cocci 4+ Gram positive rods Resp. CultureNo Haemoph ilus, Streptococcus pneumoniae, beta-hemolytic Streptococcus or Staphylococcus aureus isolated. ORGANISM 1: Yeast Like OrganismAmount Growth Rare ORGANISM 2: Mixed FloraAmount Growth 3+ :59 CBC W/Diff, Automated Comments: [facility] [address] [place], [address] Absolute Lymph 1.98 {X10_3/ul} (Normal) Range: 0.83-4.51 [...] 4.6-6.2 WBC 10.8 K/mm3 (Normal) Range: 4.4-11.0 09-Kij-184487:59 Comprehensive Metabolic Profil Comments: [facility] [address] [place], [place], [address] GAP 10 (Normal) Range: 5-15 CO2 27.0 [...] A.D.A. criteria.Please note revised GLUCOSE reference range uzydedrly48/02/2018. 37-Tko-885967:59 Hemoglobin A1c Comments: [facility] [address] [place], [address] HGB A1C 6.2 % (Normal) Range: 4.2-6.3 16-Isg-670825:59 Lipid Profile Comments: [facility] [address] [place], [place], [address] VLDL 13 mg/dL (Normal) Range: 5-40 LDL [...] 200-240 mg/dL Borderline >240 mg/dL High Risk 40-Vry-909225:59 Microalb:Creat Ratio,Random UR Comments: [facility] [address] [place], [place], [address] MALB:CREAT 10.1 {mg/g_CRE} (Normal) MICROALBUMIN,UR 5.6 mg/L (Normal) UR CREAT 55.70 mg/dL (Normal) 7-Wkb-620479:45 Basic Metabolic Profile (BMP) Comments: [facility] [address] [place], [place], [address] GAP 6 (Normal) Range: 5-15 CO2 29.0 [...] Comments: Please note revised GLUCOSE reference range batzwznvo92/02/2018. 4-Kbq-041794:45 Lipid Profile Comments: [facility] [address] [place], [place], [address] VLDL 22 mg/dL (Normal) Range: 5-40 LDL [...] 200-240 mg/dL Borderline >240 mg/dL High Risk 7-Yrk-132127:45 Liver Profile Comments: [facility] [address] [place], [place], [address] D BILI 0.13 mg/dL (Normal) Range: 0.00-0.30 T BILI 0.50 mg/dL (Normal) Range: 0.20-1.00 ALT 27 U/L (Normal) Range: 16-61 ALK P 53 U/L (Normal) Range: 45-117 AST 20 U/L (Normal) Range: 15-37 GLOB 4.3 g/dL (Abnormal) Range: 2.2-4.2 ALB 3.0 g/dL (Abnormal) Range: 3.2-5.0 T PROT 7.3 g/dL (Normal) Range: 6.4-8.2 25-Flw-886689:31 Basic Metabolic Profile (BMP) Comments: [facility] [address] [place], [place], [address] GAP 4 (Abnormal) Range: 5-15 CO2 27.0 [...] A.D.A. criteria.Please note revised GLUCOSE reference range xamxbyzgv26/02/2018. 26-Sli-882490:31 CBC-Complete Blood Cnt No Diff Comments: [facility] [address] [place], [place], [address] MPV 8.7 fL (Normal) Range: 6.2-12.0 PLT [...] 4.6-6.2 WBC 9.6 K/mm3 (Normal) Range: 4.4-11.0 48-Zaa-130977:31 Partial Thromboplast Time Comments: [place] [address] [place], [address] PTT 26.1 s (Normal) Range: 24.1-36.2 53-Qqc-523233:31 Prothrombin Time w/INR Comments: [place] [address] [place], [address] INR 0.9 (Normal) PROTIME 12.5 s (Normal) Range: 11.7-14.9 59-Kds-80557:00 Culture, Fungus 8482 Comments: [place] [address] [place], [address] CUF See Note Comments: Cu,Tmjcml7720 TESTING PERFORMED AT [facility]. ORIGINAL REPORT ON FILE IN LAB CONTAINS ADDITIONAL TEST SITE INFORMATION. (Normal) ORGANISM 1: Barron albicansAmount Growth Growth ORGANISM 2: Penicillium speciesAmount Growth Growth ORGANISM 3: Aspergillus speciesAmount Growth Growth 19-Rsq-90623:00 Culture, Sputum Comments: [address] [place], [place], [address] CUSP See Note (Normal) Comments: Gram StainAcceptable Specimen? Yes (<25 Epithelial cells per/lpf) Gram Stain 1+ White Blood Cells Rare Epithelial cells 4+ Gram positive rods 1+ Gram negative rods Resp. Culture Mixed nor mal respiratory ashkan. No Haemophilus, Streptococcus pneumoniae, beta-hemolytic Streptococcus or Staphylococcus aureus isolated. 96-Bol-252692:00 Culture, Sputum Comments: [place] [address] [place], [place], [address] CUSP See Note (Normal) Comments: Gram StainAcceptable Specimen? Yes (<25 Epithelial cells per/lpf) Gram Stain 1+ White Blood Cells Rare Epithelial cells 3+ Gram positive cocci Resp. CultureMixed normal respiratory ashkan. No Haemophilus, Streptococcus pneumoniae, beta-hemolytic Streptococcus or Staphylococcus aureus isolated. 15-Kgc-958094:44 TESTOSTERONE FREE (21296) Comments: PATIENT NOT FASTINGPERFORMED BY: [address] [id number] BY: [address] [id number] Free Testosterone(Direct) 2.6 pg/mL (Abnormal) Range: 6.6-18.1 22-Drl-699850:44 HEPATITIS C ANTIBODY Comments: PATIENT NOT FASTINGPERFORMED BY: [facility] [id number] BY: [address] [id number] ([address]) Hep C Virus Ab 0.1 {s/co_ratio} (Normal) Range: 0.0-0.9 Comments: Negative: < 0.8 Indeterminate: 0.8 - 0.9 Positive: > 0.9 . The CDC recommends that a positive HCV antibody result be followed up with a HCV Nucleic Acid Amplification test (439082). 22-Qrh-575437:44 CBC W/AUTO DIFF WBC Comments: PATIENT NOT FASTINGPERFORMED BY: [address] [id number] BY: [address] [id number] (21982) Immature Grans (Abs) 0.0 {x10E3/uL} (Normal) Range: [...] 4.14-5.80 WBC 6.1 {x10E3/uL} (Normal) Range: 3.4-10.8 41-Wmj-610616:44 METABOLIC PANEL, Comments: PATIENT NOT FASTINGPERFORMED BY: CB [facility] Npmdob9057 [facility] [id number] BY: BN [facility] Ouljd[address]nu[address] [facility] [id number] [facility] ([address]) ALT (SGPT) 17 [iU]/L (Normal) Range: 0-44 [...] 8-27 Glucose 102 mg/dL (Abnormal) Range: 65-99 81-Afe-226181:15 HgA1C , Office (45753) HgA1C , Office 5.7 % (Normal) Range: 4.6 - 7.1 14-Wnj-731999:30 CBC W/Diff, Automated Comments: [facility] [address] [place], [place], [address] Absolute Lymph 1.76 {X10_3/ul} (Normal) Range: 0.83-4.51 [...] 4.6-6.2 WBC 6.7 K/mm3 (Normal) Range: 4.4-11.0 54-Csv-681646:30 Comprehensive Metabolic Profil Comments: [facility] [address] [place], [place], [address] GAP 9 (Normal) Range: 5-15 CO2 25.0 [...] 7-18 GLU 78 mg/dL (Normal) Range: 70-110 60-Sec-021715:30 Culture, Urine Comments: [facility] [address] [place], [address] CUUR See Note (Normal) Comments: Urine CultureCulture exhibits no growth. 37-Sby-371554:30 Lipid Profile Comments: [facility] [address] [place], [address] VLDL 19 mg/dL (Normal) Range: 5-40 LDL [...] 200-240 mg/dL Borderline >240 mg/dL High Risk 88-Ptq-790737:10 Rapid Strep Test, Office (98665) Comments: Negative Rapid Strep Test, Office Negative (Normal) 14-Tpd-62770:51 THROAT CULTURE (65730) Comments: PATIENT NOT FASTINGPERFORMED BY: [facility] [id number] Information: SRC: Result 1 RRF (Normal) Comments: Routine respiratory ashkan Upper Respiratory Culture Final report (Normal) 29-Kjo-965661:02 Rapid Flu (16147 x 2) Comments: Negative Influenza A Ag Negative (Normal) 05-Dhw-299558:45 URINE WARREN CULTURE-IDENTIFICATN Comments: PERFORMED BY: [facility] [id number] Information: SRC: (66639) Result 1 NG36 (Normal) Comments: No growth in 36 - 48 hours. Urine Culture,Comprehensive Final report (Normal) 06-Gba-689104:02 Urinalysis, Office (51291) UA - LEUKOCYTE ESTERASE Negative (Normal) UA - NITRITE Negative (Normal) URINE UROBILINGN MASSIEL TIMED Normal mg/dL (Normal) UA - PROTEIN Negative mg/dL (Normal) UA - PH 7 (Normal) UA - BLOOD Negative (Normal) UA - SPECIFIC GRAVITY 1.020 (Normal) UA - KETONES Negative mg/dL (Normal) UA - BILIRUBIN Negative (Normal) UA - GLUCOSE Negative (Normal) 09-Gek-281417:22 CBC W/Diff, Automated Comments: [facility] [address] [place], [place], [address] Absolute Lymph 1.50 {X10_3/ul} (Normal) Range: 0.83-4.51 [...] 4.6-6.2 WBC 6.2 K/mm3 (Normal) Range: 4.4-11.0 85-Kox-904129:22 Comprehensive Metabolic Profil Comments: [facility] [address] [place], [place], [address] ; will review opn 11/10 GAP 7 [...] 7-18 GLU 104 mg/dL (Normal) Range: 70-110 54-Tmz-597720:22 Hemoglobin A1c Comments: [facility] [address]apg[address] [place], [place], [address] HGB A1C 5.6 % (Normal) Range: 4.2-6.3 65-Gzy-139421:22 Immunofixation, Serum Comments: [facility] (refer to report for specific site)refer to report for address and phone number PAULA RESULT,S Comment (Normal) Comments: No monoclonality detected. IMMUNOGL M 53 mg/dL (Normal) Range: 20-172 IMMUNO A 169 mg/dL (Normal) Range: 61-437 IMMUNO G 692 mg/dL (Abnormal) Range: 700-1600 76-Qrk-782483:22 Mescal Lambda Light Chains Comments: [facility] (refer to report for specific site)refer to report for address and phone number KAPPA/LAMBDA % 1.17 (Normal) Range: 0.26-1.65 Comments: Performed at: [address] [id number] Director: Hugo Britt PhD, Phone: [phone] FR LAMBDA LT CH 12.3 mg/L (Normal) Range: 5.7-26.3 FR KAPPA LT CHN 14.4 mg/L (Normal) Range: 3.3-19.4 41-Wzt-774047:22 Lipid Profile Comments: [facility] [address] [place], [address] VLDL 20 mg/dL (Normal) Range: [...] 200-240 mg/dL Borderline >240 mg/dL High Risk 54-Cnz-293341:22 Microalb:Creat Ratio,Random UR Comments: [facility] [address] [place], [place], [address] ; will review on 11/10 MALB:CREAT 5.6 {mg/g_CRE} (Normal) MICROALBUMIN,UR 7.2 mg/L (Normal) UR CREAT 128.00 mg/dL (Normal) 82-Kcb-589589:22 PSA,Total - Annual Screen Comments: [facility] [address] [place], [address] PSA,TOT SCREEN 0.63 ng/mL (Normal) Range: 0.00-4.00 Comments: This test was performed using the TPSA assay method for theLiquid chemistry system. Values obtained with differentassay methods cannot be used interchangably.When changing PSA assays in the course of monitoring apatient, additional sequential testing should be carriedout to confirm baseline values. 93-Flt-870521:07 CBC W/Diff, Automated Comments: [facility] [address] [place], [place], [address] Absolute Lymph 1.42 {X10_3/ul} (Normal) Range: 0.83-4.51 [...] Range: 4.4-11.0 :07 Comprehensive Metabolic Profil Comments: [facility] [address]sfheves[address] [place], [place], [address] GAP 8 (Normal) Range: 5-15 CO2 27.0 [...] 7-18 GLU 104 mg/dL (Normal) Range: 70-110 24-Kax-570048:07 Hemoglobin A1c Comments: [facility] [address]af[address] [place], [place], [address] HGB A1C 5.6 % (Normal) Range: 4.2-6.3 :07 PAULA + Protein Elect, Serum Comments: Is Patient Fasting? [facility] (refer to report for specific site)refer to report for address and phone number NOTE: Comment (Normal) Comments: Protein electrophoresis scan will follow via computer,mail, or clothes presser delivery.Performed at: [address] [id number] Director: Hugo Britt PhD, Phone: [phone] PAULA RESULT,S Comment (Normal) Comments: No monoclonality detected. A/G RATIO 1.2 (Normal) Range: 0.7-1.7 GLOBULIN, TOTAL 3.0 g/dL (Normal) Range: 2.2-3.9 M-SPIKE g/dL (Normal) Comments: Not Observed GAMMA GLOBULIN 0.7 g/dL (Normal) Range: 0.4-1.8 BETA GLOBULIN 1.1 g/dL (Normal) Range: 0.7-1.3 EZQVC-2-BUKE 0.8 g/dL (Normal) Range: 0.4-1.0 YRZPK-5-NIIY 0.3 g/dL (Normal) Range: 0.0-0.4 ALBUMIN 3.3 g/dL (Normal) Range: 2.9-4.4 IMMUNOGL M 53 mg/dL (Normal) Range: 20-172 IMMUNO A 177 mg/dL (Normal) Range: 61-437 IMMUNO G 761 mg/dL (Normal) Range: 700-1600 PROTEIN,TOTAL 6.3 g/dL (Normal) Range: 6.0-8.5 52-Dkh-086388:07 Lipid Profile Comments: [facility] [address] [place], [address] VLDL 21 mg/dL (Normal) Range: 5-40 LDL [...] 200-240 mg/dL Borderline >240 mg/dL High Risk 04-Zdb-462692:01 CBC W/Diff, Automated Comments: [facility] [address] [place], [place], [address] Absolute Lymph 1.62 {X10_3/ul} (Normal) Range: 0.83-4.51 [...] 4.6-6.2 WBC 7.6 K/mm3 (Normal) Range: 4.4-11.0 14-Ytt-331280:01 Comprehensive Metabolic Profil Comments: [facility] [address]qgzp[address] [place], [address] ; has apt today GAP 7 (Normal) [...] 7-18 GLU 96 mg/dL (Normal) Range: 70-110 89-Akd-777508:01 Lipid Profile Comments: [facility] [address]rndke[address] [place], [place], [address] VLDL 11 mg/dL (Normal) Range: 5-40 LDL [...] 200-240 mg/dL Borderline >240 mg/dL High Risk 67-Lgy-741997:01 Lipoprotein A 369 nmol/L (Abnormal) Comments: [facility] [...] factors on Lp(a) across ethnicities.Performed at: [facility] [address] [id number] Director: Hugo Britt PhD, Phone: [phone] 63-Iuq-510357:56 HgA1C , Office (59840) HgA1C , Office 5.6 % (Normal) Range: 4.6 - 7.1 0-Tcy-824496:19 ANCA Panel Comments: PATIENT NOT FASTINGPERFORMED BY: [facility]Victor[place] [facility] [address] [facility] [id number] BY: [address] [id number] Atypical pANCA <1:20 {titer} Comments: The atypical [...] follow up testing ofpositive sera with both MI-3 and MPO-ANCA enzyme immunoassays. Asmany as 5% serum samp les are positive only by EIA.Ref. AM J Clin Pathol 1999;111:507-513. Cytoplasmic (C-ANCA) <1:20 {titer} (Normal) Antiproteinase 3 (MI-3) Abs <3.5 U/mL (Normal) Range: 0.0-3.5 Antimyeloperoxidase (MPO) Abs <9.0 U/mL (Normal) Range: 0.0-9.0 :19 Antinuclear Antibodies Comments: PATIENT NOT FASTINGPERFORMED BY: [address] [id number] BY: [facility]6370 [facility] [id number] Direct JOHN Direct Negative (Normal) :1 C-Reactive Protein, 2.1 mg/L (Normal) Comments: PATIENT NOT FASTINGPERFORMED BY: [address] [id number] BY: [facility]6[address] [facility] [id number] Quant Range: 0.0-4.9 :19 Rheumatoid Arthritis Comments: PATIENT NOT FASTINGPERFORMED BY: [address] [id number] BY: [facility]6370 [facility] [id number] Factor RA Latex Turbid. 7.8 {IU/mL} Range: 0.0-13.9 (Normal) Sedimentation 8 mm/h (Normal) Comments: PATIENT NOT FASTINGPERFORMED BY: [address] [id number] BY: [place] [address] [facility] [id number] :19 Rate-Westergren Range: 0-30 Thyroid Peroxidase (TPO) 8 {IU/mL} (Normal) Comments: PATIENT NOT FASTINGPERFORMED BY: [address] [id number] BY: [facility]6[address] [facility] [id number] :19 Ab Range: 0-34 :19 Thyroxine (T4) Free, Comments: PATIENT NOT FASTINGPERFORMED BY: [address] [id number] BY: [facility]6370 [facility] [id number] Direct, S T4,Free(Direct) 1.11 ng/dL Range: 0.82-1.77 (Normal) Triiodothyronine,Free,Seru 2.5 pg/mL (Normal) Comments: PATIENT NOT FASTINGPERFORMED BY: [address] [id number] BY: [facility]6370 [facility] [id number] 2:19 m Range: 2.0-4.4 TSH 3.450 {uIU/mL} Comments: PATIENT NOT FASTINGPERFORMED BY: [address] [id number] BY: [facility]6370 [facility] [id number] 2:19 (Normal) Range: 0.450-4.500 4-Cnl-980382:30 Pathology Report Comments: PERFORMED BY: [facility] Cyto Qqyih65800 [facility] [id number] Information: [id number] See MATER Comments: Material submitted: .FOREHEAD SHAVE [...] IN CASSETTE(S) A./CORCOR/CORPa thologist provided ICD-10:D48.5, L90.9CPT .514730 :22 TESTOSTERONE FREE (54988) Comments: PATIENT WAS FASTINGPERFORMED BY: [facility]70 [facility] [id number] BY: [address] [id number] Free Testosterone(Direct) 2.5 pg/mL (Abnormal) Range: 6.6-18.1 22-Nam-88809:22 VITAMIN B-12 (CYANOCOBALAMIN) Comments: PATIENT WAS FASTINGPERFORMED BY: [employer]70 [facility] [id number] BY: [address] [id number] (74774) Vitamin B12 638 pg/mL (Normal) Range: 211-946 :22 CBC W/AUTO DIFF WBC Comments: PATIENT WAS FASTINGPERFORMED BY: TelnicVirtua MarltonXeagri1954 [facility] [id number] BY: [address] [id number] Inf ormation: NURSE DRAW (35888) Immature Grans (Abs) 0.0 {x10E3/uL} (Normal) Range: [...] 4.14-5.80 WBC 7.3 {x10E3/uL} (Normal) Range: 3.4-10.8 47-Jpi-58112:22 METABOLIC PANEL, Comments: PATIENT WAS FASTINGPERFORMED BY: [employer] Zrkeds9222 [facility] [id number] BY: [employer] [id number] [facility] (77761) ALT (SGPT) 12 [iU]/L (Normal) Range: 0-44 [...] Range: 65-99 :52 CBC W/Diff, Automated Comments: [facility] [id number] [place], [address] Absolute Lymph 1.73 {X10_3/ul} (Normal) Range: 0.83-4.51 [...] 4.6-6.2 WBC 6.0 K/mm3 (Normal) Range: 4.4-11.0 79-Qon-15982:52 Comprehensive Metabolic Profil Comments: [facility] [address]nwjkq[address] [place], [address] GAP 6 (Normal) Range: 5-15 CO2 26.0 [...] (Normal) Range: 70-110 :52 Hemoglobin A1c Comments: [facility] [address] [place], [place], [id number] HGB A1C 5.6 % (Normal) Range: 4.2-6.3 :52 Lipid Profile Comments: [facility] [address] [place], [place], [id number] VLDL 21 mg/dL (Normal) Range: 5-40 LDL [...] High Risk :52 Microalb:Creat Ratio,Random UR Comments: [facility] [address] [place], [place], [address] MALB:CREAT 9.1 {mg/g_CRE} (Normal) MICROALBUMIN,UR 9.0 mg/L (Normal) UR CREAT 99.50 mg/dL (Normal) :52 PSA,Total - Annual Screen Comments: [facility] [address] [place], [place], [address] PSA,TOT SCREEN 0.51 ng/mL (Normal) Range: 0.00-4.00 Comments: This test was performed using the TPSA assay method for PinBridge chemistry system. Values obtained with differentassay methods cannot be used interchangably.When changing PSA assays in the course of monitoring apatient, additional sequential testing should be carriedout to confirm baseline values. COLON BIOPSY (CHOOSE See Note (Normal) Comments: [facility] [address] [place], [place], [address] :45 SITE) Comments: Patient: YUMIKO LANDRUM : 1950 (64/M) Acct Num: [id number] Phys: Hugo Bullock Unit Num: [id number] Loc: LABSPEC Specimen: [id number] Received: 09/11/151646 Spec Type: C OLON BX [...] in one cassette. / Heraclio 09/11 TC:1 CPT:93665 x2 HEADER OPERATION: Colonoscopy with biopsy PRE-OP DIAGNOSIS: Screening/polyp TISSUE SUBMITTED: A - Polyp cecum, R/O adenoma, B - Polyp sigmoid, R/O adenoma MICROSCOP IC DESCRIPTION Slides are reviewed. MICROSCOPIC DIAGNOSIS A. Polyp cecum, biopsy: Fragments of tubular adenoma. B. Polyp sigmoid, biopsy: Fragments of tubular adenoma. SJ:momo 09/15/15 Signed Pamella Son 09/15/15 <signature on file> :37 CBC W/Diff, Automated Comments: [facility] [address]vsxj[address] [place], [place], [id number] ; noon-emergent till apt Absolute Lymph 1.39 [...] 4.6-6.2 WBC 6.5 K/mm3 (Normal) Range: 4.4-11.0 77-Txi-062384:37 Comprehensive Metabolic Profil Comments: [facility] [address] [place], [address] GAP 6 (Normal) Range: 5-15 CO2 [...] <126 mg/dLsuggests IMPAIRED HOMEOSTASIS per A.D.A. criteria. 26-Jzs-362809:37 Hemoglobin A1c Comments: [facility] [address]xf[address] [place], [address] HGB A1C 5.6 % (Normal) Range: 4.2-6.3 42-Fxz-023004:37 Lipid Profile Comments: [facility] [address] [place], [address] VLDL 17 mg/dL (Normal) Range: [...] 200-240 mg/dL Borderline >240 mg/dL High Risk 0-Tuk-463042:12 Factor II, DNA Analysis Comments: [facility] (refer to report for specific site)refer to report for address and phone number COMMENT Comment (Normal) Comments: Genetic Counselors are available for health care providersto discuss results at [phone] ([phone]).Methodology:DNA analysis of the Factor II gene was performed by PCRamplification followed by restric tion analysis. Thediagnostic sensitivity is >99% for both. All the tests mustbe combined with clinical information for the most accurateinterpretation. Molecular-based testing is highly accurate,but as in any laboratory test, diagnostic errors may occur.Poort SR, et al. Blood. 1996; 88:7027-6047.Diallo EA. Circulation. 2004; 110:e15-e18.Bobby I, et al. Arterioscler Thromb Vasc Biol. 1999;19:700 -703.Lance Shea, Chente Cooper, Lorena Santo PhDAlecia Willis, Matilde Benjamin, PhDPerformed at: TG - [facility] BAL[address] [place], [place] [id number] villa: Vilma Butterfield MD, Phone: [phone] FACTOR II,DNA Comment (Normal) Comments: NEGATIVENo mutation identified.Comment:A point mutation ([id number]) in the factor II (prothrombin)gene is the [...] individual mutations. This assaydetects only the prothrombin L02497T mutation and doesnot measure genetic abnormalities elsewhere i n thegenome. Other thrombotic risk factors may be pursuedthrough systematic clinical laboratory analysis. Thesefactors include the R506Q ([place]) mutation in the Factor Vgene, plasma homocysteine levels , as well as testing fordeficiencies of antithrombin III, protein C and protein S. 01-Cuq-47367:42 Miscellaneous Comments: Comments: [id number],PLASMA,BLUETest(s) Ordered: [id number],PLASMA,[facility] Wtxshoevgf5886 [facility] [place], [place], [address] Lab Procedure MISC Comments: TEST RESULT UNITS [...] 0.0-20.0 - Time (Normal) Comments: Performed at: - [facility] [id number] Director: Joseph Velez MD, Phone: [phone] F e b - 2 0 1 6 9 : 4 2 :34 CBC W/Diff, Automated Comments: [facility] [address]kkmi[address] [place], [place], [id number] Absolute Lymph 1.34 {X10_3/ul} (Normal) Range: 0.83-4.51 [...] (Normal) Range: 4.4-11.0 :34 Comprehensive Comments: Comments: [id number],NIIDERICK,[facility] [address] [place], [address] ; apt today Metabolic Profil GAP 8 [...] for health careproviders to discuss results at [phone] ([phone]).Methodology:DNA analysis of the Factor V gene was [...] Beal, PhDBette lugo, PhDKelly Benjamin, PhDPerformed at: [address] [id number] Director: Joseph Velez MD, Phone: [phone] at: [facility] VII2408 [place], [place] [id number] Director: Vilma Butterfield MD, Phone: [phone] FACTOR V LEIDEN Comment (Normal) Comments: Result: [...] in the workup for venous thrombosis include aqrV63427A mutation in the factor II (prothrombin) gene,protein S and C deficiency, and antithrombin deficiencies.Anticardiolipin antibody and lupus anticoagu lant analysismay be appropriate for certain patients, as well ashomocysteine levels.Contact your local [facility] for information on how to orderadditional testing if desired. 23-Kck-70409:34 Hemoglobin A1c Comments: [facility] [address] [place], [place], [id number] HGB A1C 5.6 % (Normal) Range: 4.2-6.3 :34 Lipid Profile Comments: Comments: [id number],[facility] [address]cwb[address] [place], [address] VLDL 17 mg/dL (Normal) Range: [...] High Risk :34 Miscellaneous Lab Comments: Comments: [id number],[facility]ENTERTest(s) Ordered: [id number] [facility] X[address]ftjxveo4[address] [place], [address] Procedure MISC Comments: TEST RESULT [...] anticoagulant is not de tected. aCL and F5RZ8segwnwfadi are normal.ANTIPHOSPHOLIPID SYNDROME ASSESSMENT SUMMARY-No evidence of a lupus anticoagulant, B2GP1 or aCLantibodies. As antibody titers may fluctuate with time,repeat te sting may be indicated if antiphospholipid syndromeis suspected.ANTIPHOSPHOLIPID SYNDROME ASSESSMENT DEFINITIONS-aCL- anticardiolipin (antibodies to cardiolipin); U0ET2-loglyjviqm to Beta-2 Glycoprotein 1; LA- lupus anticoagulant(which is identified with the dRVVT and/or hexagonalphospholipid neutralization assays); aPL- antibodies toprotein/phospholipid complexes such as LA, aCL, and Y1SD9sjgwrmqzdr; APS- antiphospholipid syndrome; DTI-directthrombin inhibitors.-NETWORK LEAD:For questions regarding panel interpretation, please contactHalle Arrington M.D. ([place]) or Yogi Olvera M.D. at[facility] at . DISCLAIMERThese assessments and interpretations [...] Mathews et al. J Thromb Haemost. 2009; 7(10):7017-3400.(2) Tyrone S et al. J Thromb H aemost. 2006;4(2):295-306.(3) Keith DA et al. Blood. 2007;110(9): 7876-3965. [facility]. ORIGINAL REPORT ON FILE IN LAB [...] Range: 58-150 :54 CBC W/Diff, Automated Comments: [facility] [address] [place], [address] Absolute Lymph 1.61 {X10_3/ul} (Normal) [...] 4.6-6.2 WBC 7.1 K/mm3 (Normal) Range: 4.4-11.0 72-Cro-868123:54 Comprehensive Metabolic Profil Comments: [facility] [address] [place], [address] GAP 7 (Normal) Range: 5-15 [...] 7-18 GLU 98 mg/dL (Normal) Range: 70-110 50-Tbm-429399:54 Lipid Profile Comments: [facility] [address]ll[address] [place], [address] ; apt today VLDL 19 [...] :55 Comprehensive Metabolic Profil Comments: Test performed at:[facility] Srpqfpcdpe2217 [facility] [place] [address] GAP 7 (Normal) Range: 5-15 [...] Comments: Please note revised CREATININE reference range ywrekxith93/22/2015. BUN 15 mg/dL (Normal) Range: 7-18 GLU 103 mg/dL (Normal) Range: 70-110 :55 Hemoglobin A1c Comments: Test performed at:[facility] [address] [place] [address] HGB A1C 6.0 % (Normal) Range: 4.2-6.3 21-Sep-20148:55 Lipid Profile Comments: Test performed at:[facility] [address]pegu6[address] [place] [address] VLDL 17 mg/dL (Normal) Range: [...] 200-240 mg/dL Borderline >240 mg/dL High Risk 93-Ihg-752281:49 Anti-dsDNA Ab Comments: ADDED PER VERBAL ORDER - FAXED ORDER TO FOLLOWSpecimen Comment: A duplicate report has been generated due to demographicSpecimen Comment: updates.Test performed at:[facility]1 [address] [place] [address] dsDNA AB 12 {IU/mL} (Abnormal) Range: 0-9 Comments: Negative <5 Equivocal 5 - 9 Positive >9; ADDENDA: non-emergent because has apt today to discuss. 95-Bea-424575:49 ANTINUCLEAR ANTIBODIES DIRECT Comments: Test performed at:[facility] Ktdzreyqzi5636 [facility] [place] [address] JOHN-DIRECT Positive (Abnormal) Comments: Performed at: - [facility] [id number] Director: Reno Yanes PhD, Phone: [phone] 71-Tzd-032430:49 CBC W/Diff, Automated Comments: Test performed at:[facility] [address]objr35[address] [place] [address] Absolute Lymph 1.22 {X10_3/ul} (Normal) [...] 4.6-6.2 WBC 4.9 K/mm3 (Normal) Range: 4.4-11.0 56-Qss-891539:49 Comprehensive Metabolic Profil Comments: Test performed at:[facility] Lbnibxmuka1824 [address] [place], [place] [address] GAP 6 (Normal) Range: 5-15 CO2 27.0 [...] 7-18 GLU 104 mg/dL (Normal) Range: 70-110 67-Ezg-130636:49 CRP Comments: Test performed at:[facility] [address] [place] [address] C-REACTIVE PROT < 2.90 mg/L (Normal) Range: 0.0-3.0 Comments: C-Reactive Protein (CRP) provides useful information for thediagnosis, therapy and monitoring of inflammatory processesand associated diseases. For the evaluation of Relative Riskfor Cardiovascular Dise ase, a High Sensitivity CRP (HSCRP)should be ordered. :49 Culture, Urine Comments: Test performed at:[place] [address] CUUR See Note (Normal) Comments: Urine CultureCulture exhibits no growth.; ADDENDA: Pt has apt today, will discuss then 21-Yic-909198:49 Erythrocyte Sed Rate Comments: Test performed at:[facility] [address] [place] [address] SED RATE 21 mm/h (Abnormal) Range: 0-20 04-Drl-070404:49 Hemoglobin A1c Comments: Test performed at:[address] [address] HGB A1C 5.8 % (Normal) Range: 4.2-6.3 18-Wga-181122:49 Lipid Profile Comments: Test performed at:[address] [address] VLDL 8 mg/dL (Normal) Range: 5-40 LDL [...] 200-240 mg/dL Borderline >240 mg/dL High Risk 73-Gkk-761383:49 Microalb:Creat Ratio,Random UR Comments: Test performed at:[facility] Hamkjdstsx7365 [facility] [place] [address] MALB:CREAT 12.2 {mg/g_CRE} (Normal) MICROALBUMIN,UR 17.2 mg/L (Normal) UR CREAT 140.0 mg/dL (Normal) 14-Dzo-234001:49 PSA,Total - Annual Screen Comments: Test performed at:[facility] [address] [place] [address] PSA,TOT SCREEN 0.47 ng/mL (Normal) Range: 0.00-4.00 Comments: This test was performed using the TPSA assay method for PinBridge chemistry system. Values obtained with differentassay methods cannot be used interchangably.When changing PSA assays in the course of monitoring apatient, additional sequential testing should be carriedout to confirm baseline values. 60-Ecj-474669:49 Thyroid Stim Hormone (TSH) Comments: Test performed at:[facility] [address] [place] [address] TSH 1.60 {uIU/mL} (Normal) Range: 0.358-3.74 94-Dmp-100381:49 Urinalysis, Complete Comments: How was Urine Obtained? Urine, RandomTest performed at:[facility] [address] [place] [address] MUCUS, URINE 2+ {/hpf} (Normal) [...] (Normal) CLARITY Clear (Normal) COLOR Yellow (Normal) 66-Hza-926822:49 Urinalysis, Complete Comments: How was Urine Obtained? Urine, RandomTest performed at:[facility] [address]zreqyj6627 [facility] [place] [address] MUCUS, URINE 0 SEEN {/hpf} [...] (Normal) CLARITY Clear (Normal) COLOR Yellow (Normal) 91-Uvq-320539:07 Comprehensive Metabolic Profil Comments: Test performed at:[facility] [address] [place] [address] GAP 6 (Normal) Range: 5-15 [...] 7-18 GLU 108 mg/dL (Normal) Range: 70-110 05-Xbr-267183:07 CPK Total, Creatine Kinase Comments: Test performed at:[facility] [address] [place] [address] CPK TOTAL 91 U/L (Normal) Range: 39-308 83-Cpd-264104:56 Rapid Flu (20674 x 2) Influenza A Ag negative (Normal) 7-Ksd-103630:28 URINE WARREN CULTURE-MASSIEL COL Comments: PATIENT NOT FASTINGPERFORMED BY: [facility] Zabyyg0285 [facility] [id number] Information: SRC:UR L40642 COUNT (86151) Result 1 ECV (Abnormal) Comments: Escherichia coli, [...] R Urine Final report Culture,Comprehensi (Abnormal) ve 1-Hgq-656781:58 Urinalysis, Office (04791) UA - LEUKOCYTE ESTERASE Small (Normal) UA - NITRITE Negative (Normal) URINE UROBILINGN MASSIEL TIMED 2 mg/dL (Normal) UA - PROTEIN 30 mg/dL (Normal) UA - PH 6.0 (Normal) Comments: 5.5 UA - BLOOD Hemolyzed Small (Normal) UA - SPECIFIC GRAVITY 1.030 (Abnormal) UA - KETONES Negative mg/dL (Normal) UA - BILIRUBIN Small (Normal) UA - GLUCOSE Negative (Normal) 3-Cqo-319816:41 URINE WARREN CULTURE-MASSIEL COL Comments: PATIENT NOT FASTINGPERFORMED BY: Highfive6370 [facility] [id number] Information: SRC: URINE COUNT (92352) Result 1 ECV (Abnormal) Comments: Escherichia coli, [...] R Urine Final report Culture,Comprehensi (Abnormal) ve 2-Yah-060427:27 Urinalysis, Office (67328) UA - LEUKOCYTE ESTERASE Trace (Normal) UA - NITRITE Negative (Normal) URINE UROBILINGN MASSIEL TIMED 2 mg/dL (Normal) UA - PROTEIN Negative mg/dL (Normal) UA - PH 6.0 (Normal) UA - BLOOD Negative (Normal) UA - SPECIFIC GRAVITY 1.010 (Normal) UA - KETONES Negative mg/dL (Normal) UA - BILIRUBIN Negative (Normal) UA - GLUCOSE Negative (Normal) 3-Sbi-397084:30 HgA1C , Office (51403) HgA1C , Office 5.7 % (Normal) Range: 4.6 - 7.1 7-Xtj-853970:10 URINE WARREN CULTURE-MASSIEL COL Comments: PATIENT NOT FASTINGPERFORMED BY: Highfive6370 [facility] [id number] Information: SRC:UR N23970 COUNT (65019) Result 1 NG36 (Normal) Comments: No growth [...] CHOL 155 mg/dL (Normal) Comments: <200 mg/dL Qwdmkuhqj228-788 mg/dL Borderline>240 mg/dL High Risk TRIG 121 [...] (Normal) UCLAR Clear (Normal) UCOL Yellow (Normal) 40-Zjw-421013:20 CUUR URC See Note (Normal) Comments: ESBL+ [...] >=320 R (NF) indicates non-formulary drug at [facility]. Approval by Infectious DiseaseSpecialist required before non-formulary drugs may beordered and/or dispensed. 68-Iox-628401:20 UA Comments: How was Urine Obtained? CLEAN CATCH ANGE 500 /ul (Abnormal) MICA Negative (Normal) UOB 25 /ul (Abnormal) LEESA 6.0 (Normal) Range: 5.0 - 8.0 uPROTU 30 mg/dL (Abnormal) UROBU 1 mg/dL (Abnormal) KETU Negative mg/dL (Normal) SGU 1.015 (Normal) Range: 1.002-1.030 BILIU Negative mg/dL (Normal) GLUR Normal mg/dL (Normal) UCLAR Cloudy (Normal) UCOL Yellow (Normal) 69-Rpg-947908:27 A1C 5.6 % (Normal) Range: 4.2-6.3 : B12 574 pg/mL (Normal) Range: 211-911 97-Qzn-969063:27 CBC MPV 8.8 fL (Normal) Range: 6.2-12.0 [...] 4.6-6.2 WBC 6.4 K/mm3 (Normal) Range: 4.4-11.0 90-Tfj-249719:27 CUUR URC Culture exhibits no growth. (Normal) 71-Mwb-956905:27 EBGM EBNA 81.6 U/mL (Abnormal) Range: 0.0-17.9 Comments: Negative <18.0Equivocal 18.0 - 21.9Positive >21.9 tEBINT Comment (Normal) Comments: EBV Interpretation ChartInterpretation EBV-IgM VCA-IgG EBNA-IgG EA(D)-IgGEBV Seronegative - - - -Early Phase + - - -Acute Primary + + - +or-InfectionConvalescence/Past - + + +or-InfectionReactivated +or- + + +Infection+ Antibody Present - Antibody Absen tPerformed at: - [facility] [address] [id number] Director: Melquiades Hector MD, Phone: [phone] EBEAG <9.0 U/mL (Normal) Range: 0.0-8.9 Comments: [...] - 250 nmol/L)Toxicity >100 ng/mL (>250 nmol/L) 4-Mbn-575648:36 BMP Comments: Serial Specimen #1, #2 or [...] <0.05 NEGATIVE0.06 - 0.59 AT RISK OF CO> OR = 0.60 SUGGEST CO :47 HgA1C , Office (59718) HgA1C , Office 6.3 % (Normal) Range: [...] CHOL 147 mg/dL (Normal) Comments: <200 mg/dL Xgdeospdq476-849 mg/dL Borderline>240 mg/dL High Risk :55 Rapid Flu (22401 x 2) Comments: neg Influenza A Ag negative (Normal) :02 FECAL OCCULT- Tubes sent home (49942) FECAL OCCULT HGB ASSAY, QUAL, 1-3 negative (Normal) SIMULTANE :39 B12 510 pg/mL (Normal) Range: 211-911 [...] (Normal) Range: 0-100 Comments: Performed at: - [address] [id number] Director: Melquiades Hector MD, Phone: [phone] IMM 55 mg/dL (Normal) Range: 40-230 DEBBY 182 mg/dL (Normal) Range: 91-414 IMG 788 mg/dL (Normal) Range: 700-1600 :39 LDH 190 U/L (Normal) Comments: Serial Specimen #1, #2 or #3? 1Is Patient Taking Vitamins or Folic Acid Supplements? N Range: 84-246 :39 PROEL Comments: Is Patient Fasting? Y e20FLAGZO Comment (Normal) Comments: Protein electrophoresis scan will follow via computer,mail, or clothes presser delivery. tPROELAG 1.6 (Normal) Range: 0.7-2.0 tPROELIN [...] Supplements? N Range: 250-450 :56 CULTURE, SPUTUM (58652) Comments: PATIENT NOT FASTINGPERFORMED BY: LabCoVirtua MarltonEnjwnx9370 [facility] [id number] Information: SRC:[facility] G98830 Result 1 RRF (Normal) Comments: Routine respiratory ashkan Lower Respiratory Culture Final report (Normal) :32 HgA1C , Office (25658) HgA1C , Office 5.9 % (Normal) Range: 4.6 - 7.1 :32 Blood Glucose , Office (03255) Blood Glucose , Office 90 (Normal) :51 [...] 4.6-6.2 WBC 7.2 {k/mm3} (Normal) Range: 4.4-11.0 08-Nmy-200397:51 CMP GAP 9 (Normal) Range: 5-15 CO2 [...] CHOL 149 mg/dL (Normal) Comments: <200 mg/dL Vzbcxyorv554-338 mg/dL Borderline>240 mg/dL High Risk :51 PSA 0.51 ng/mL (Normal) Range: 0.00-4.00 Comments: This test was performed using the TPSA assay method for theLiquid chemistry system. Values obtained with differentassay methods cannot be used interchangably.When changing PSA assays in the course of monitoring apatient, additional sequential testing should be carriedout to confirm baseline values. :59 MISC (Normal) Comments: TEST RESULT LIMITSAntinuclear Antibodies, IFA NegativeNegative <1:80Borderline 1:80Positive >1:80 TESTING PERFORMED AT [facility]. ORIGINAL REPORT ONFILE IN LAB [...] CHOL 154 mg/dL (Normal) Comments: <200 mg/dL Qufkctkpk403-551 mg/dL Borderline>240 mg/dL High Risk HDL 64 [...] YEAST OR MOLD ISOLATED AFTER 4 WEEKS. 75-Uaa-113067:11 CUSP RESPC See Note (Normal) Comments: No [...] YEAST OR MOLD ISOLATED AFTER 4 WEEKS. 32-Zzh-816372:21 AFBCS tAFMERVIN See Note Comments: TESTING PERFORMED AT [facility]. ORIGINAL REPORT ONFILE IN LAB CONTAINS ADDITIONAL TEST SITE INFORMATION. (Normal) CULTURE, ACID FAST FINAL CULTURE REPORT TO FOLLOW IN 6 WEEKS. EverF See Note Comments: TESTING PERFORMED AT [facility]. ORIGINAL REPORT ONFILE IN LAB CONTAINS ADDITIONAL TEST SITE INFORMATION. (Normal) ACID FAST BACILLUS SMEARAcid Fast Smear from Concentrated Specimen :Negative 76-Emm-422475:21 CUFST FUNST See Note Comments: TESTING PERFORMED AT [facility]. ORIGINAL REPORT ONFILE IN LAB CONTAINS ADDITIONAL TEST SITE INFORMATION. (Normal) FUNGUS STAIN YEAST OBSERVED CUF See Note Comments: TESTING PERFORMED AT [facility]. ORIGINAL REPORT ONFILE IN LAB CONTAINS ADDITIONAL TEST SITE INFORMATION. (Normal) CULTURE, FUNGUSNO YEAST OR MOLD ISOLATED AFTER 4 WEEKS. 16 AFBSTN SEE Comments: Specimen submitted to Anatomical Pathology Department [facility]. - PATHOLOGY ay REPORT -2 (Normal) 32 2: 00 16 AFBSTN SEE Comments: PATIENT BROUGHT SPECIMEN IN ON 07/11/12. - PATHOLOGY Comments: Specimen submitted to Anatomical Pathology Department [facility]. ay REPORT -2 (Normal) 30 :0 0 12 AFBSTN SEE Comments: PATIENT BROUGHT SPECIMEN IN ON 07/11/12 - PATHOLOGY Comments: Specimen submitted to Anatomical Pathology Department fortesting. ay REPORT -2 (Normal) 01 39 :0 0 38-Res-404006:05 WARREN CULTURE-OTHER (12122) Comments: PATIENT NOT FASTINGPERFORMED BY: BOBBI [facility] Igsozo5151 [facility] [id number] Information: SRC: THROAT Result 1 RRF (Normal) Comments: Routine respiratory ashkan Upper Respiratory Culture Final report (Normal) 95-Ryu-475577:23 Rapid Strep Test, Office (27249) Rapid Strep Test, Office Negative (Normal) 9-Dxj-411881:15 CBCMD RBCM NORM C+C {NORMAL} (Normal) PE [...] 4.6-6.2 WBC 8.3 K/mm3 (Normal) Range: 4.4-11.0 1-Ytx-591678:15 CMP GAP 10 (Normal) Range: 5-15 CO2 [...] 7-18 GLU 81 mg/dL (Normal) Range: 70-110 1-Hvc-634869:15 LIPID VLDL 12 mg/dL (Normal) Range: 5-40 [...] Alvarado M.D.January 27, 2012 at 2:39:03 PM [id number] Signed GP/GP If you are the refe rring physician and would like to consult with theradiologist who provided this interpretation, please contact Itzel Linares at [phone]. If this radiologist is unavailable, youwill be dir ected to another radiologist to assist. If you are a patient with a question regarding this report, pleasecontactyour referring physician directly. Professional Interpretation Provided By: uchoose, Phone , These documents contain legally protected [...] Schwarz D.O.January 26, 2012 at 8:55:02 PM [id number] Signed BE/B E If you are the referring physician and would like to consult with theradiologist who provided this interpretation, please contact Yogi Schwarz D.O. at [phone]. If this radiologist is unavailable, yo u will bedirected to another radiologist to assist. If you are a patient with a question regarding this report, pleasecontactyour referring physician directly. Professional Interpretation Provided By: uchoose, Phone , These documents contain legally protected [...] the return or destructionofthese documents. Dictated on 01/26/120 by Popeye Schwarz MDianTranscribed on 01/26/122058 by ITS IMPORTSign by Yogi Schwarz MD on 01/26/122099 Sign by: Yogi Schwarz MD 95-Pkn-744356:13 CUSP RESPC See Note (Normal) Comments: No [...] CHAINS AND CLUSTERS :56 HgA1C , Office (85590) HgA1C , Office 6.1 % (Normal) Range: 4.6 - 7.1 34-Lxw-481117:56 Blood Glucose , Office (96924) Blood Glucose , Office 116 (Normal) : [...] 4.6-6.2 WBC 5.5 K/mm3 (Normal) Range: 4.4-11.0 :01 CMP GAP 4 (Abnormal) Range: 5-15 CO2 [...] mg/dL suggests IMPAIRED HOMEOSTASIS per A.D.A. criteria. 32-Qol-29076:01 TSH 1.98 {uIU/mL} (Normal) Range: 0.358-3.74 72-Elf-914168:25 CMP GAP 7 (Normal) Range: 5-15 CO2 [...] 7-18 GLU 107 mg/dL (Normal) Range: 70-110 78-Gmu-180216:25 LIPID VLDL 12 mg/dL (Normal) Range: 5-40 [...] 200-240 mg/dL Borderline >240 mg/dL High Risk 84-Lhx-166548:25 MIACRE tMICROCREAT 6.7 {mg/g_CRE} (Normal) MIALB 5.5 mg/L (Normal) CREU 81.1 mg/dL (Normal) :25 PSA 0.50 ng/mL (Normal) Range: 0.00-4.00 Comments: NEW TEST ASSAY METHOD JULY 12, 2011This test was performed using the TPSA assay method for the[facility] chemistry system. Values obtained with differentassay methods [...] UCOL YELLOW (Normal) :44 HgA1C , Office (49775) HgA1C , Office 6.3 % (Normal) Range: 4.6 - 7.1 :44 Blood Glucose , Office (60657) Blood Glucose , Office 114 (Normal) :13 HgA1C , Office (03422) HgA1C , Office 6.2 % (Normal) Range: 4.6 - 7.1 :13 Blood Glucose , Office (30708) Blood Glucose , Office 100 (Normal) :55 HgA1C , Office (18813) HgA1C , Office 5.8 % (Normal) Range: 4.6 - 7.1 :55 Blood Glucose , Office (67853) Blood Glucose , Office 85 (Normal) :51 WARREN CULTURE-OTHER (45986) Comments: PATIENT NOT FASTINGPERFORMED BY: [id number] [id number] Information: SRC:THRT [id number] Result 1 Yeast isolated. (Normal) Comments: Heavy growthRequest for further identification must be madewithin 1 week. Upper Respiratory Culture Final report (Normal) :14 Rapid Strep Test, Office (02896) Rapid Strep Test, Office Negative (Normal) :24 [...] serialsampling is recomme nded. TESTING PERFORMED AT [facility]. ORIGINAL REPORT ON FILE IN LAB CONTAINS [...] cells for the productionof interferon gamma.Performed at: [address] [id number] Director: Joseph Velez MD, Phone: [phone] QFT AG - NIL 0 {IU/mL} (Normal) [...] 7-18 GLU 100 mg/dL (Normal) Range: 70-110 29-Won-24325:03 COMPLETE UA MUCUS, URINE 2+ {/hpf} (Normal) [...] >240 mg/dL High Risk :03 VIT D,25 03252 38.0 ng/mL (Normal) Comments: appt 03-08-10 Range: 32.0-100.0 Comments: Effective January 11, 2011 Vitamin D, 25-Hydroxy reference intervals will be changing to 30-100. .Recent studies consider the lower li chilo of 32.0 ng/mL to be athreshold for optimal health.Mark LUDWIG. J Nutr. 2004;135(2):317-22.Performed at: [address] [id number] Director: Lakshmi Pino MD, Phone: [phone] VITAMIN B12 696 pg/mL (Normal) Range: 254-1320 Comments: There is a low frequency possibility that high titers ofintrinsic blocking antibodies may not be completely inactivated during the reaction pretreatment stepof this testing method. If test results are i n conflictwith the clinical diagnosis, patient should be testedfor the presence of intrinsic factor blocking antibodies. 53-Ltg-786933:05 Rapid Strep Test, Office (31000) Rapid Strep Test, Office Negative (Normal) :00 CULTURE, THROAT See Note (Normal) Comments: Normal throat ashkan isolated. No beta-hemolyticstreptococcus isolated. 54-Ffi-89813:00 CHEST WITHOUT CONTRAST Radiology Report See Note [...] 10/11/10 0244 Sign by: Clarke Butt MD 71-Uis-880021:58 GALLBLADDER Radiology Report See Note (Normal) Comments: PROCEDURE: ABDOMINAL ULTRASOUND - RIGHT UPPER QUADRANT REASON FOR VISIT: Male, 60 years old. Abdominal pain. TECHNIQUE: Ultrasound evaluation of the right upper quadrant [facility] and static grayscale [...] 10/08/10 1402 Sign by: Jake Alvarado MD 43-Dnf-76049:00 CULTURE, URINE URINE CULTURE See Note {CFU/mL} (Normal) Comments: COLONY COUNT <1000 ORGANISM 1: MIXED GRAM POSITIVE ORGANISMS 66-Evy-230162:19 Urinalysis, Office (44017) UA - BILIRUBIN Negative (Normal) UA - BLOOD Non Hemolyzed Trace (Normal) UA - GLUCOSE Negative (Normal) UA - KETONES Negative mg/dL (Normal) UA - LEUKOCYTE ESTERASE Negative (Normal) UA - NITRITE Negative (Normal) UA - PH 7.0 (Normal) UA - PROTEIN Negative mg/dL (Normal) UA - SPECIFIC GRAVITY 1.010 (Normal) URINE UROBILINGN MASSIEL TIMED Normal mg/dL (Normal) 68-Olf-24229:00 ABDOMEN/PELVIS WITHOUT CONT Radiology Report See Note [...] evidence of atherosclerotic vascular disease. Dictated on 10/05/10 182 by Deshawn Marie MDTranscribed on 10/05/101954 by [...] Cosmo Mahmood MD :11 HgA1C , Office (37466) HgA1C , Office 6.2 % (Normal) Range: 4.6 - 7.1 07-Vqx-749925:11 Blood Glucose , Office (50208) Blood Glucose , Office 90 (Normal) :28 [...] mg/dL High Risk :53 HgA1C , Office (59327) HgA1C , Office 6.4 % (Normal) Range: 4.6 - 7.1 :53 Blood Glucose , Office (65984) Blood Glucose , Office 108 (Normal) :39 CULTURE, URINE URINE CULTURE Culture exhibits no growth. (Normal) :54 Urinalysis, Office (93211) UA - BILIRUBIN Negative (Normal) UA - BLOOD Negative (Normal) UA - GLUCOSE Negative (Normal) UA - KETONES Negative mg/dL (Normal) UA - LEUKOCYTE ESTERASE Negative (Normal) UA - NITRITE Negative (Normal) UA - PH 7.0 (Normal) UA - PROTEIN Negative mg/dL (Normal) UA - SPECIFIC GRAVITY 1.010 (Normal) URINE UROBILINGN MASSIEL TIMED Normal mg/dL (Normal) :37 HgA1C , Office (52196) HgA1C , Office 6.1 % (Normal) Range: 4.6 - 7.1 05-Hgn-100794:37 Blood Glucose , Office (78472) Blood Glucose , Office 96 (Normal) :46 [...] 4.6-6.2 WBC 7.5 K/mm3 (Normal) Range: 4.4-11.0 :46 COMP METABOLIC GAP 7 (Normal) Range: 5-15 [...] 7-18 GLU 105 mg/dL (Normal) Range: 70-110 42-Amj-532217:46 LIPID VLDL 10 mg/dL (Normal) Range: 5-40 [...] 200-240 mg/dL Borderline >240 mg/dL High Risk 58-Nlp-673190:46 MICROALB:CRE UR MALB:CREAT 4.8 {mg/g_CRE} (Normal) MICROALBUMIN,UR 8.1 mg/L (Normal) UR CREAT 166.2 mg/dL (Normal) 12-Yvc-692503:46 PSA, SCREEN 0.5 ng/mL (Normal) Range: 0.0-4.0 :22 HgA1C , Office (57217) HgA1C , Office 6.1 % (Normal) Range: 4.6 - 7.1 :22 Blood Glucose , Office (40453) Blood Glucose , Office 123 (Normal) :47 HgA1C , Office (01826) HgA1C , Office 6.3 % (Normal) Range: 4.6 - 7.1 :47 Blood Glucose , Office (31977) Blood Glucose , Office 103 (Normal) :05 [...] CHOL 142 mg/dL (Normal) Comments: <200 mg/dL Pynqlaqfi210-420 mg/dL Borderline>240 mg/dL High Risk TRIG 35 mg/dL (Normal) Comments: Serum Triglycerides Reference IntervalNormal <150 mg/dLBorderline high 150 - 199 mg/dLHigh 200 - 499 mg/ dLVery High > or = 500 mg/dL 7-Gpp-930974:24 HgA1C , Office (71351) HgA1C , Office 6.2 % (Normal) Range: 4.6 - 7.1 :23 Blood Glucose , Office (47692) Blood Glucose , Office 96 (Normal) 60-Iaw-516035:07 GASTRIC EMPTYING STUDY Radiology Report See Note (Normal) Comments: Exam Number: [id number] GASTRIC EMPTYING STUDY A gastric emptying study was performed. The patient ingested 1 mCi qbKf38g Sulfur colloid with oatmeal. HISTORYThis is a 58-year-old male patie nt with hist ory of bloating andgastroesophageal reflux. FINDINGSAt 1 hour, there is complete emptying of the stomach of theradiopharmaceutical. This is a normal study. IMPRESSIONNormal examination. There is no e vidence of gastric retention. Reported By: WILFREDO ALVARADO 1-Gta-872990:33 HgA1C , Office (57157) HgA1C , Office 5.9 % (Normal) Range: 4.6 - 7.1 6-Nsm-922992:33 Blood Glucose , Office (09629) Blood Glucose , Office 111 (Normal) 24-Dec-20086:08 COMP METABOLIC A/G 1.1 {RATIO} (Normal) Range: [...] Range: 0.0-4.0 :46 Blood Glucose , Office (35215) Blood Glucose , Office 156 (Normal) :46 HgA1C , Office (57393) HgA1C , Office 5.8 % (Normal) Range: 4.6 - 7.1 :12 HgA1C , Office (81171) Comments: done km HgA1C , Office 5.8 % (Normal) Range: 4.6 - 7.1 :12 Blood Glucose , Office (36353) Comments: done Blood Glucose , Office 99 [...] mg/dL (Normal) Range: 200-370 Comments: Performed At: [address] [id number] Blood Glucose , Office (63024) Blood Glucose , Office 92 (Normal) :44 HgA1C , Office (31131) HgA1C , Office 5.7 % (Normal) Range: 4.6 - 7.1 :40 GLU GTT-2 HOUR 191 mg/dL (Abnormal) Comments: 2HR GTT GLU 2 HR GLU GTT-2 HOUR from 216:[id number]. Range: 70-120 :20 GLU GTT-1 HOUR 178 mg/dL (Abnormal) Comments: 2HR GTT GLU 1 HR GLU GTT-1 HOUR from 216:[id number]. Range: 120-170 :40 GLU GTT-30 min. 183 mg/dL (Abnormal) Comments: 2HR GTT GLU 1/2 HR GLU GTT-30 min. from 216:[id number]. Range: 110-170 :01 GLU GTT-FASTING 106 mg/dL (Normal) Comments: 2HR GTT FASTING GLU GTT-FASTING from 216:[id number]. Range: 70-110 Comments: GLUCOSE TOLERANCE TEST Reference Interval Non- Adults Fasting 70 - 110 30 minutes 110 - 170 1 hour 120 - 170 2 hour 70 - 120 3 hour 70 - 110 4 hour 70 - 110 5 hour 70 - 110 96-Dog-67762:12 CBCD,SMEAR DIFF CELLS COUNTED 100 (Normal) EOS [...] 47-70 WBC 8.2 K/mm3 (Normal) Range: 4.4-11.0 35-Tsw-96466:12 COMP METABOLIC A/G 1.3 {RATIO} (Normal) Range: [...] T PROT 7.0 g/dL (Normal) Range: 6.4-8.2 40-Ghd-507750:12 LIPID CHOL 154 mg/dL (Normal) Comments: <200 [...] mg/dL VLDL 15 mg/dL (Normal) Range: 5-40 26-Bcc-531169:12 PSA,TOT SCREEN 0.96 ng/mL (Normal) Range: 0.00-4.00 Comments: This test was performed using the TPSA method for theDimension chemistry system.Values obtained with different assay methods cannot be usedinterchangably.When changing PSA assays in the course of monito ring apatient, additional sequential testing should be carriedout to confirm baseline values. 72-Oev-123434:12 ROUTINE UA BILIRUBIN URINE SeeNote (Normal) Comments: [...] 0.2 EU/dl (Normal) Range: 0.2 - 1.0 70-Fqp-301400:12 TSH 1.38 {uIU/mL} (Normal) Range: 0.34-4.82 04-Zal-38883:03 CHEST WITH CONTRAST Radiology Report See Note (Normal) Comments: Exam Number: [id number] CHEST CT WITH INTRAVENOUS CONTRAST. REASON FOR [...] No growth in 5 6:14 days. (Normal) 5-Jae-948503:14 CBCD,SMEAR DIFF BAND 1 % (Normal) Range: [...] T PROT 6.3 g/dL (Abnormal) Range: 6.4-8.2 34-Qct-114940:19 EBVIgG/M 175516 EB-EA IgG 74293 79 AU/mL (Normal) Range: 0-99 Comments: Negative <100 Equivocal 100 - 120 Positive >120 EB-NAg NbM35731 656 AU/mL (Abnormal) Range: 0-99 Comments: Negative <100 Equivocal 100 - 120 Positive >120 EB-VCA MnH83387 2296 AU/mL (Abnormal) Range: 0-99 Comments: Negative <100 Equivocal 100 - 120 Positive >120 EB-VCA DcN88595 9 AU/mL (Normal) Range: 0-99 Comments: Negative [...] + Antibody Present - Antibody AbsentPerformed At: [facility] [place], [place] [id number] 69-Ldc-833844:00 CULTURE, THROAT See Note (Normal) Comments: Normal throat ashkan isolated. No beta-hemolyticstreptococcus isolated. 76-Izn-097437:35 Rapid Strep Test, Office (52114) Rapid Strep Test, Office Negative (Normal) 30-Grz-95844:40 TISS/FLUID P-BX/CY (Normal) Comments: OPERATION Biopsy, testicle, [...] SJ:rin 11/09/06 TC:5 REPORT SIGNED: PAMELLA SON 11/10/0607-Nov-200657-Jdv-219136:55 ALDOLASE 2030 2.3 U/L (Normal) Range: 1.2-7.6 Comments: Performed At: [address] [id number] At: [facility] [id number] 18-Cwa-494034:55 JOHN-D [id number] JOHN-DIRECT 9 U/mL (Normal) Range: 0-99 Comments: Negative <100 Equivocal 100 - 120 Positive >120 24-Rkj-486599:55 C-REACTIVE PROT 0.52 mg/L (Normal) Range: 0.0-6.0 Comments: Test performed using the Dimension C-Reactive ProteinExtended Range assay method. This assay meets the AHA/CDC 2003 recommendations fordetermining patients at high risk for cardiovasculardisease. Reference: High risk CRP >3.0 mg/L 37-Tkv-663313:55 CBC HCT 42.8 % (Normal) Range: 40-54 [...] 4.9 {IU/mL} (Normal) Range: 0.0-13.9 :55 TESTOST CO75950 TESTOSTER %FREE 2.87 % (Normal) Range: 1.50-4.20 [...] Report See Note (Normal) Comments: Exam Number: [id number] TESTICULAR ULTRASOUND HISTORYTesticular swelling. High resolution real [...] Reported By: MAYELIN DE LA FUENTE M.D. 7-Gwj-750229:45 HIP, MIN 2 VIEWS Radiology Report See Note (Normal) Comments: Exam Number: [id number] FIVE VIEW LUMBAR SPINE AP, LATERAL, BOTH [...] degenerative changes. Reported By: REMIGIO PURCELL M.D. 8-Jiq-408767:45 L/S SPINE,MIN 4 VIEWS Radiology Report See Note (Normal) Comments: Exam Number: [id number] FIVE VIEW LUMBAR SPINE AP, LATERAL, BOTH [...] degenerative changes. Reported By: REMIGIO PURCELL M.D. 1-Zci-796766:44 HIP, MIN 2 VIEWS Radiology Report See Note (Normal) Comments: Exam Number: [id number] FIVE VIEW LUMBAR SPINE AP, LATERAL, BOTH [...] degenerative changes. Reported By: REMIGIO PURCELL M.D. 20-Npa-867319:43 CHEST, PA AND LATERAL Radiology Report See Note (Normal) Comments: Exam Number: [id number] PA AND LATERAL CHEST HISTORYShortness of breath. [...] 15, 2005. Reported By: EDVIN MARIE M.D. 76-Xrn-971667:25 ALDOLASE 2030 3.0 U/L (Normal) Range: 1.2-7.6 Comments: Performed At: [facility] [place], [place] [id number] 42-Gap-411599:25 JOHN-D [id number] JHON-DIRECT 46 U/mL (Normal) Range: 0-99 Comments: Negative <100 Equivocal 100 - 120 Positive >120 11-Lyg-320656:25 C-REACTIVE PROT 1.07 mg/L (Normal) Range: 0.0-6.0 Comments: Test performed using the Dimension C-Reactive ProteinExtended Range assay method. This assay meets the AHA/CDC 2003 recommendations fordetermining patients at high risk for cardiovasculardisease. Reference: High risk CRP >3.0 mg/L :25 CBCD BASO% 0.4 % (Normal) Range: 0-1 [...] morphology Planned Observations CBC W/AUTO DIFF WBC (87227)Indication: Hypertension, benign On: :51 Request METABOLIC PANEL, COMPREHENSIVE (79805)Indication: Hypertension, benign On: :51 Request LIPID PANEL (77646)Indication: Other hyperlipidemia On: :50 Request CULTURE,FUNGUS W/STAIN 040539 (28261)Indication: Bronchiectasis On: :59 Request CULTURE, SPUTUM (56070)Indication: Moderate persistent asthma without complication On: :21 Request HGB A1C (86288)Indication: Abnormal glucose tolerance test On: : Request CBC with auto diff (98100)Indication: Abnormal glucose tolerance test On: : Request METABOLIC PANEL, COMPREHENSIVE (89883)Indication: Abnormal glucose tolerance test On: :10 Request LIPID PANEL (33183)Indication: Other hyperlipidemia On: :10 Request PSA (PROSTATE SPECIFIC ANTIGEN) (V76.44)Indication: Encounter for screening for malignant neoplasm of prostate (Renamed from Screening for prostate cancer) On: :09 Request METABOLIC PANEL, COMPREHENSIVE (39049)Indication: Essential hypertension On: 4-Dcl-788241:58 Request CBC with auto diff (66790)Indication: Hypertension, benign On: :53 Request METABOLIC PANEL, COMPREHENSIVE (22925)Indication: Abnormal glucose tolerance test On: :52 Request MICROALBUMIN: CREATININE RATIO (90344) AND (35384)Indication: Abnormal glucose tolerance test On: :52 Request HGB A1C (56261)Indication: Abnormal glucose tolerance test On: :52 Request LIPID PANEL (98932)Indication: Other hyperlipidemia On: :52 Request LIPID PANEL (90602)Indication: Other hyperlipidemia On: 8-Air-315122:30 Request CBC W/AUTO DIFF WBC (96244)Indication: Hypertension, benign On: :29 Request METABOLIC PANEL, COMPREHENSIVE (22404)Indication: Hypertension, benign On: :29 Request IMMUNOGLOBULIN G (IgG) (33759)Indication: Abnormal blood chemistry On: :02 Request Comments: PLEASE DRAW WITH OTHER LABS IN 2016 serum free light chains (12418)Indication: Abnormal blood chemistry On: :40 Request serum immunofixation (70753)Indication: Abnormal blood chemistry On: :40 Request PSA (PROSTATE SPECIFIC ANTIGEN) (V76.44)Indication: Encounter for screening for malignant neoplasm of prostate (Renamed from Screening for prostate cancer) On: 40 Request LIPID PANEL (23360)Indication: Other hyperlipidemia On: :40 Request CBC with auto diff (23420)Indication: Abnormal glucose tolerance test On: :39 Request METABOLIC PANEL, COMPREHENSIVE (31405)Indication: Abnormal glucose tolerance test On: :39 Request MICROALBUMIN: CREATININE RATIO (98056) AND (93280)Indication: Abnormal glucose tolerance test On: :39 Request HGB A1C (75561)Indication: Abnormal glucose tolerance test On: :39 Request LIPID PANEL (52100)Indication: Other hyperlipidemia On: 9-Mmg-299125:58 Request urine immunofixation (82293)Indication: Abnormal blood chemistry On: :34 Request serum immunofixation (87953)Indication: Abnormal blood chemistry On: :34 Request MICROALBUMIN: CREATININE RATIO (66866) AND (26076)Indication: Abnormal glucose tolerance test On: 67-Azv-080961:32 Request HGB A1C (37897)Indication: Abnormal glucose tolerance test On: 85-Fbn-736184:32 Request CBC W/AUTO DIFF WBC (93320)Indication: Hypertension, benign On: :30 Request METABOLIC PANEL, COMPREHENSIVE (70044)Indication: Hypertension, benign On: :30 Request LIPID PANEL (44265)Indication: Other hyperlipidemia On: :30 Request LIPOPROTEIN, BLD, BY NMR (35919)Indication: Other hyperlipidemia On: :14 Request CBC WITH MANUAL DIFF (92059)Indication: Essential hypertension On: 19-Kwr-937734:14 Request Metabolic Panel, Comprehensive (57906)Indication: Essential hypertension On: :14 Request CBC W/AUTO DIFF WBC (02523)Indication: Abnormal glucose tolerance test On: : Request LIPOPROTEIN, BLD, BY NMR (14195)Indication: Other hyperlipidemia On: :03 Request METABOLIC PANEL, COMPREHENSIVE (98831)Indication: Abnormal glucose tolerance test On: :02 Request Anti-TPO Antibody (24204)Indication: Abnormal blood chemistry On: :57 Request T4, FREE (THYROXINE) (56011)Indication: Abnormal blood chemistry On: :57 Request T3, FREE (TRIDOTHYRONINE) (59518)Indication: Abnormal blood chemistry On: :57 Request TSH (56506)Indication: Abnormal blood chemistry On: :56 Request P-ANCA & C-ANCA (ANCA PROFILE) 50519 x2 and 95728 t0Xtggovihwj: Acute recurrent maxillary sinusitis On: :26 Request JOHN (ANTINUCLEAR ANTIBODY) (81915)Indication: Abnormal blood chemistry On: :56 Request RHEUMATOID FACTOR-QUANT (90677)Indication: Abnormal blood chemistry On: :56 Request SED RATE ERYTHROCYTE (25932)Indication: Abnormal blood chemistry On: :56 Request C-REACTIVE PROTEIN (08984)Indication: Abnormal blood chemistry On: :56 Request CBC with auto diff (23311)Indication: Hypertension, benign On: :10 Request MICROALBUMIN: CREATININE RATIO (25766) AND (82137)Indication: Abnormal glucose tolerance test On: : Request METABOLIC PANEL, COMPREHENSIVE (75211)Indication: Abnormal glucose tolerance test On: : Request HGB A1C (61501)Indication: Abnormal glucose tolerance test On: : Request METABOLIC PANEL, COMPREHENSIVE (65988)Indication: Hypertension, benign On: : Request LIPID PANEL (33142)Indication: Other hyperlipidemia On: : Request PSA (PROSTATE SPECIFIC ANTIGEN) (V76.44)Indication: Encounter for screening for malignant neoplasm of prostate (Renamed from Screening for prostate cancer) On: 58-Dbp-238716:59 Request Factor 2 (Prothrombin) Gene Mutation (13165)Indication: Other symptoms involving cardiovascular system On: 7-Lqs-020538:13 Request MICROALBUMIN: CREATININE RATIO (11376) AND (96580)Indication: Abnormal glucose tolerance test On: :53 Request HGB A1C (64115)Indication: Abnormal glucose tolerance test On: :53 Request LIPID PANEL (45767)Indication: Other hyperlipidemia On: :53 Request CBC W/AUTO DIFF WBC (44317)Indication: Hypertension, benign On: :53 Request METABOLIC PANEL, COMPREHENSIVE (89235)Indication: Hypertension, benign On: :53 Request CBC with auto diff (19555)Indication: Hypertension, benign On: : Request METABOLIC PANEL, COMPREHENSIVE (89286)Indication: Hypertension, benign On: 9-Yix-858581:25 Request LIPID PANEL (14019)Indication: Other hyperlipidemia On: 0-Kun-929576:25 Request Factor V Leiden (49713)Indication: Deep vein thrombosis of lower extremity On: :24 Request CLOTTING FACTOR II (44681)Indication: Deep vein thrombosis of lower extremity On: :24 Request ANTITHROMBIN III ACTIVTY (17258)Indication: Deep vein thrombosis of lower extremity On: :24 Request Antiphospholipid atb (07172)Indication: Deep vein thrombosis of lower extremity On: :24 Request Protein C Profile (51538)Indication: Deep vein thrombosis of lower extremity On: :24 Request Protein S Profile (25835)Indication: Deep vein thrombosis of lower extremity On: :24 Request Hemoglobin Glyclated (HGB A1C) (21797)Indication: Abnormal glucose tolerance test On: 24-Vge-841790:23 Request CBC W/AUTO DIFF WBC (18214)Indication: Abnormal glucose tolerance test On: :43 Request MICROALBUMIN: CREATININE RATIO (26669) AND (93709)Indication: Abnormal glucose tolerance test On: :43 Request METABOLIC PANEL, COMPREHENSIVE (46331)Indication: Abnormal glucose tolerance test On: : Request LIPID PANEL (30118)Indication: Other hyperlipidemia On: :43 Request DNA ANTIBODY-NATV/DBL ST (98960)Indication: Heart disease, unspecified On: 84-Syd-094756:02 Request METABOLIC PANEL, COMPREHENSIVE (99086)Indication: Essential hypertension On: 07-Dlc-291224:31 Request LIPID PANEL (88259)Indication: Other hyperlipidemia On: 11-Xei-322794:31 Request Hemoglobin Glyclated (HGB A1C) (80248)Indication: Abnormal glucose tolerance test On: 23-Nlz-238239:31 Request PSA (PROSTATE SPECIFIC ANTIGEN) (V76.44)Indication: Benign prostatic hyperplasia with lower urinary tract symptoms, unspecified morphology On: 27-Syv-500111:52 Request MICROALBUMIN: CREATININE RATIO (42023) AND (10329)Indication: Abnormal glucose tolerance test On: 90-Uvt-320241:50 Request Hemoglobin Glyclated (HGB A1C) (10827)Indication: Abnormal glucose tolerance test On: :50 Request URINE WARREN CULTURE (MASSIEL COL COUNT) (81228)Indication: Muscle weakness On: :48 Request URINALYSIS, W/ MICRO (19246)Indication: Muscle weakness On: :48 Request CBC with auto diff (14859)Indication: Muscle weakness On: :48 Request JOHN (ANTINUCLEAR ANTIBODY) (22130)Indication: Muscle weakness On: :48 Request SED RATE ERYTHROCYTE (87432)Indication: Muscle weakness On: :48 Request C-REACTIVE PROTEIN (60197)Indication: Muscle weakness On: :48 Request TSH (16757)Indication: Muscle weakness On: 50-Fcl-277816:48 Request LIPID PANEL (99396)Indication: Other hyperlipidemia On: 55-Fsy-527293:47 Request METABOLIC PANEL, COMPREHENSIVE (28921)Indication: Other hyperlipidemia On: 80-Rhi-410783:46 Request URINE WARREN CULTURE-MASSIEL COL COUNT (11957)Indication: Other abnormal finding of urine On: 7-Mdk-797798:42 Request LIPID PANEL (35664)Indication: Other hyperlipidemia On: :44 Request CBC W/AUTO DIFF WBC (60789)Indication: Essential hypertension On: :44 Request METABOLIC PANEL, COMPREHENSIVE (74224)Indication: Essential hypertension On: :44 Request URINE WARREN CULTURE-MASSIEL COL COUNT (53247)Indication: Other abnormal finding of urine On: 2-Ixj-227288:00 Request Comments: ADD ON MICROALBUMIN: CREATININE RATIO (45379) AND (26853)Indication: Essential hypertension On: : Request URINALYSIS, W/ MICRO (57146)Indication: Essential hypertension On: 9-Pgm-409380:02 Request METABOLIC PANEL, COMPREHENSIVE (75768)Indication: Essential hypertension On: 8-Jsh-802672:02 Request LIPID PANEL (20389)Indication: Other hyperlipidemia On: :02 Request CBC WITH MANUAL DIFF (43094)Indication: Iron deficiency On: 4-Kxp-991104:02 Request URINE WARREN CULTURE (MASSIEL COL COUNT) (81824)Indication: Fatigue On: 26-Hwt-897691:46 Request MICROALBUMIN: CREATININE RATIO (34284) AND (14958)Indication: Abnormal glucose tolerance test On: :46 Request Hemoglobin Glyclated (HGB A1C) (58035)Indication: Abnormal glucose tolerance test On: 06-Adr-180376:46 Request IRON BINDING CAPACITY (TIBC) (40821)Indication: Anemia, unspecified On: :42 Request FERRITIN (87081)Indication: Anemia, unspecified On: 25-Asc-908659:42 Request IRON (83919)Indication: Anemia, unspecified On: 58-Tpd-484884:42 Request VITAMIN B-12 (CYANOCOBALAMIN) (15365)Indication: Fatigue On: Request CBC (AUTO) (73872)Indication: Fatigue On: Request TSH (09025)Indication: Fatigue On: Request Vitamin D Hydroxy (45940)Indication: Fatigue On: Request EBV Panel (51729)Indication: Fatigue On: Request FERRITIN (99667)Indication: Anemia, unspecified On: Request IRON (91406)Indication: Anemia, unspecified On: Request MICROALBUMIN: CREATININE RATIO (25260) AND (37172)Indication: Abnormal glucose tolerance test On: Request METABOLIC PANEL, COMPREHENSIVE (19868)Indication: Abnormal glucose tolerance test On: Request LIPID PANEL (66154)Indication: Other hyperlipidemia On: Request CBC WITH MANUAL DIFF (26511)Indication: Anemia, unspecified On: Request FERRITIN (24731)Indication: Anemia, unspecified On: :15 Request IRON (15059)Indication: Anemia, unspecified On: Request LIPID PANEL (46927)Indication: Essential hypertension On: :14 Request METABOLIC PANEL, COMPREHENSIVE (68192)Indication: Essential hypertension On: : Request CBC WITH MANUAL DIFF (74153)Indication: Essential hypertension On: 14 Request UPEP (42946)Indication: BRONCHITIS, NOT SPECIFIED ACUTE OR CHRONIC (490.) On: :37 Request Protein Electrophoresis, Serum (SPEP) (45713)Indication: BRONCHITIS, NOT SPECIFIED ACUTE OR CHRONIC (490.) On: Request IGA/IGD/IGG/IGM-EACH (59190)Indication: BRONCHITIS, NOT SPECIFIED ACUTE OR CHRONIC (490.) On: : Request URINALYSIS, W/ MICRO (79821)Indication: Anemia, unspecified On: Request CBC WITH MANUAL DIFF (52607)Indication: Anemia, unspecified On: : Request FOLIC ACID SERUM (18879)Indication: Anemia, unspecified On: Request VITAMIN B-12 (CYANOCOBALAMIN) (24984)Indication: Anemia, unspecified On: : Request RETICULOCYTE COUNT MANUL (09645)Indication: Anemia, unspecified On: Request LDH (LD) (LACTATE DEHYDROGENASE) (04106)Indication: Anemia, unspecified On: Request IRON BINDING CAPACITY (TIBC) (31239)Indication: Anemia, unspecified On: Request IRON (39648)Indication: Anemia, unspecified On: Request FERRITIN (67734)Indication: Anemia, unspecified On: Request PSA (PROSTATE SPECIFIC ANTIGEN) (V76.44)Indication: Screening for prostate cancer On: :36 Request LIPID PANEL ([id number])Indication: Abnormal glucose tolerance test On: :35 Request CBC WITH MANUAL DIFF ([id number])Indication: Hypertension, benign On: 35 Request METABOLIC PANEL, COMPREHENSIVE ([id number])Indication: Hypertension, benign On: 35 Request SED RATE ERYTHROCYTE ([id number])Indication: Rash On: :22 Request C-REACTIVE PROTEIN ([id number])Indication: Rash On: :22 Request RHEUMATOID FACTOR-QUANT ([id number])Indication: Rash On: :22 Request JOHN (ANTINUCLEAR ANTIBODY) ([id number])Indication: Rash On: 40-Nhu-327007:22 Request CULTURE, SPUTUM ([id number])Indication: Cough On: 23-Pej-961458:20 Request HgA1C , Office ([id number])Indication: Abnormal glucose tolerance test On: 53-Rno-052299:57 Request CULTURE, SPUTUM ([id number])Indication: Cough On: 44-Qja-713106:39 Request ACID FAST STAIN (AFB) ([id number])Indication: Cough On: 38-Evl-307188:38 Request TSH ([id number])Indication: Other hyperlipidemia On: :21 Request URINALYSIS, W/ MICRO ([id number])Indication: Essential hypertension On: : Request CBC WITH MANUAL DIFF ([id number])Indication: Abnormal glucose tolerance test On: :21 Request METABOLIC PANEL, COMPREHENSIVE (27905)Indication: Abnormal glucose tolerance test On: :21 Request MICROALBUMIN: CREATININE RATIO ([id number]) AND ([id number])Indication: Abnormal glucose tolerance test On: :21 Request LIPID PANEL ([id number])Indication: Other hyperlipidemia On: :20 Request CBC WITH MANUAL DIFF ([id number])Indication: Abnormal glucose tolerance test On: : Request METABOLIC PANEL, COMPREHENSIVE ([id number])Indication: Abnormal glucose tolerance test On: :26 Request CULTURE, SPUTUM ([id number])Indication: Cough On: 13-Crr-271901:18 Request LIPID PANEL ([id number])Indication: Other hyperlipidemia On: 28-Qpi-444639:14 Request TSH ([id number])Indication: Swelling of limb On: 48-Qoe-69752:58 Request METABOLIC PANEL, COMPREHENSIVE ([id number])Indication: Swelling of limb On: :58 Request CBC WITH MANUAL DIFF ([id number])Indication: Swelling of limb On: :58 Request BNTP ([id number])Indication: Swelling of limb On: :58 Request CULTURE, SPUTUM ([id number])Indication: Cough On: 06-Vej-49472:56 Request PSA (PROSTATE SPECIFIC ANTIGEN) (V76.44)Indication: Screening for prostate cancer On: 53-Mpt-346086:19 Request URINALYSIS, W/ MICRO ([id number])Indication: Abnormal glucose tolerance test On: 10-Cpf-364424:18 Request MICROALBUMIN: CREATININE RATIO ([id number]) AND ([id number])Indication: Abnormal glucose tolerance test On: 45-Kho-123398:18 Request METABOLIC PANEL, COMPREHENSIVE ([id number])Indication: Essential hypertension On: 12-Pxu-963133:18 Request LIPID PANEL ([id number])Indication: Other hyperlipidemia On: 22-Ssa-458288:18 Request PSA (PROSTATE SPECIFIC ANTIGEN) (V76.44)Indication: Screening for prostate cancer On: :40 Request MICROALBUMIN: CREATININE RATIO (67647) AND ([id number])Indication: Abnormal glucose tolerance test On: :40 Request METABOLIC PANEL, COMPREHENSIVE (49504)Indication: Abnormal glucose tolerance test On: :40 Request Urine Protein Electrophoresis (UPEP) ([id number])Indication: recurrent uri On: :39 Request Serum Protein Electrophoresis (SPEP) ([id number])Indication: recurrent uri On: :39 Request IMMUNOGLOBULIN E (IgE) ([id number])Indication: Asthma, intrinsic, with status asthmaticus On: :39 Request IGA/IGD/IGG/IGM-EACH (04654)Indication: Asthma, intrinsic, with status asthmaticus On: :39 Request LIPID PANEL (76721)Indication: Other hyperlipidemia On: :38 Request ASPERGILLUS AG, EIA ([id number])Indication: Cough On: 74-Tgt-110249:58 Request SED RATE ERYTHROCYTE ([id number])Indication: Cough On: 75-Ipp-488439:48 Request C-REACTIVE PROTEIN ([id number])Indication: Cough On: 44-Hib-480877:48 Request CBC WITH MANUAL DIFF ([id number])Indication: Cough On: 96-Urm-225580:47 Request Quantiferron gold test ([id number])Indication: Cough On: 16-Art-287116:45 Request CULTURE, SPUTUM ([id number])Indication: Cough On: 98-Cem-707906:45 Request VITAMIN B-12 (CYANOCOBALAMIN) ([id number])Indication: Fatigue On: :20 Request Vitamin D Hydroxy (08523)Indication: Fatigue On: 73-Kwo-919590:20 Request CBC WITH MANUAL DIFF ([id number])Indication: Abnormal glucose tolerance test On: :19 Request METABOLIC PANEL, COMPREHENSIVE ([id number])Indication: Abnormal glucose tolerance test On: :19 Request LIPID PANEL ([id number])Indication: Other hyperlipidemia On: :19 Request URINALYSIS, W/ MICRO ([id number])Indication: Abnormal glucose tolerance test On: :19 Request HEMOGLOBIN GLYCLATED (HGB A1C) ([id number])Indication: Abnormal glucose tolerance test On: :19 Request WARREN CULTURE-OTHER (87393)Indication: Pharyngitis, acute On: 06-Rqn-313483:05 Request URINE WARREN CULTURE-MASSIEL COL COUNT (47789)Indication: Abdominal pain, acute, right lower quadrant On: :19 Request CBC WITH MANUAL DIFF ([id number])Indication: Abnormal glucose tolerance test On: :08 Request METABOLIC PANEL, COMPREHENSIVE (15765)Indication: Abnormal glucose tolerance test On: :08 Request TSH ([id number])Indication: Fatigue On: :02 Request CBC WITH MANUAL DIFF ([id number])Indication: Abnormal glucose tolerance test On: :45 Request METABOLIC PANEL, COMPREHENSIVE ([id number])Indication: Hypertension, benign On: :45 Request LIPID PANEL ([id number])Indication: Other hyperlipidemia On: :45 Request METABOLIC PANEL, COMPREHENSIVE ([id number])Indication: Essential hypertension On: 58-Ane-971435:16 Request LIPID PANEL ([id number])Indication: Other hyperlipidemia On: 04-Hph-113890:15 Request URINE WARREN CULTURE-MASSIEL COL COUNT ([id number])Indication: Calcium kidney stone On: 92-Wpf-082917:54 Request PSA (PROSTATE SPECIFIC ANTIGEN) (V76.44)Indication: Enlarged prostate with lower urinary tract symptoms On: 50-Uws-420351:09 Request METABOLIC PANEL, COMPREHENSIVE ([id number])Indication: Abnormal glucose tolerance test On: :09 Request CBC WITH MANUAL DIFF ([id number])Indication: Abnormal glucose tolerance test On: 52-Wdv-169354:09 Request LIPID PANEL ([id number])Indication: Other hyperlipidemia On: 08-Rcl-669048:09 Request MICROALBUMIN: CREATININE RATIO ([id number]) AND ([id number])Indication: Abnormal glucose tolerance test On: 36-Hsn-469607:09 Request LIPID PANEL ([id number])Indication: Other hyperlipidemia On: : Request CBC WITH MANUAL DIFF ([id number])Indication: Abnormal glucose tolerance test On: : Request METABOLIC PANEL, COMPREHENSIVE ([id number])Indication: Abnormal glucose tolerance test On: 46-Abc-034723:30 Request MICROALBUMIN: CREATININE RATIO ([id number]) AND ([id number])Indication: Abnormal glucose tolerance test On: 98-Qse-583983:28 Request METABOLIC PANEL, COMPREHENSIVE ([id number])Indication: Abnormal glucose tolerance test On: 0-Cun-507583:07 Request LIPID PANEL (48843)Indication: Other hyperlipidemia On: 0-Xap-071562:07 Request PSA (PROSTATE SPECIFIC ANTIGEN) (V76.44)Indication: Enlarged prostate with lower urinary tract symptoms On: 2-Vzc-176027:49 Request METABOLIC PANEL, COMPREHENSIVE (55947)Indication: Essential hypertension On: :48 Request LIPID PANEL (57141)Indication: Other hyperlipidemia On: :48 Request HEPATIC FUNCTION PANEL ([id number])Indication: Other hyperlipidemia On: :21 Request LIPID PANEL ([id number])Indication: Other hyperlipidemia On: 31-Urp-014482:21 Request CBC WITH MANUAL DIFF ([id number])Indication: Abnormal glucose tolerance test On: 7-Max-066655:53 Request METABOLIC PANEL, COMPREHENSIVE (48557)Indication: Abnormal glucose tolerance test On: 1-Qma-929185:53 Request MICROALBUMIN: CREATININE RATIO (90362) AND ([id number])Indication: Abnormal glucose tolerance test On: 5-Jwi-129414:53 Request HEPATIC FUNCTION PANEL ([id number])Indication: Other hyperlipidemia On: 3-Htz-565098:53 Request LIPID PANEL ([id number])Indication: Other hyperlipidemia On: 6-Tmq-526239:53 Request GLUCOSE TOLERANCE TEST (GTT) 2 hour On: 0-Mvr-242837:36 Request ([id number]) TSH ([id number])Indication: Dizziness and giddiness On: 93-Fpj-992347:15 Request LIPID PANEL ([id number])Indication: Other hyperlipidemia On: 33-Whu-244906:15 Request CBC WITH MANUAL DIFF ([id number])Indication: Dizziness and giddiness On: 47-Jvv-073756:15 Request METABOLIC PANEL, COMPREHENSIVE ([id number])Indication: Dizziness and giddiness On: 25-Ijy-924122:15 Request HEPATIC FUNCTION PANEL ([id number])Indication: Other hyperlipidemia On: :39 Request LIPID PANEL (42902)Indication: Other hyperlipidemia On: 45-Xib-214302:39 Request HEPATIC FUNCTION PANEL ([id number])Indication: Other hyperlipidemia On: :31 Request LIPID PANEL (05323)Indication: Other hyperlipidemia On: :31 Request WARREN CULTURE-BLOOD ([id number])Indication: fever On: 8-Rxa-620395:58 Request METABOLIC PANEL, COMPREHENSIVE ([id number])Indication: fever On: 8-Pyl-643262:58 Request CBC WITH MANUAL DIFF ([id number])Indication: fever On: :58 Request WARREN CULTURE-OTHER ([id number])Indication: Pharyngitis, acute On: 21-Iqo-644787:35 Request PSA (Prostate Specific Antigen), Screening (24198)Indication: Other hyperlipidemia On: :32 Request LIPID PANEL ([id number])Indication: Other hyperlipidemia On: :31 Request URINALYSIS W/O MICRO ([id number])Indication: Hypertension, benign On: :31 Request TSH ([id number])Indication: Hypertension, benign On: :31 Request CBC WITH MANUAL DIFF ([id number])Indication: Hypertension, benign On: 61-Vyu-159705:31 Request METABOLIC PANEL, COMPREHENSIVE (75511)Indication: Hypertension, benign On: :31 Request Creatine Kinase Total ([id number])Indication: Myalgia and myositis On: 9-Vnl-831790:24 Request SED RATE ERYTHROCYTE ([id number])Indication: Arthralgia On: :23 Request C-REACTIVE PROTEIN ([id number])Indication: Arthralgia On: :23 Request RHEUMATOID FACTOR-QUANT ([id number])Indication: Arthralgia On: :23 Request JOHN (ANTINUCLEAR ANTIBODY) ([id number])Indication: Arthralgia On: :23 Request Planned Encounters Medical; [facility] 3 Month FU - On: 21-Mar-2018 8:30 [facility] Flakito ACKERMAN, Adelaida A Flakito ACKERMAN, Adelaida A Planned Procedures PNEUM VAC ADLT/IMUMNOSPR, On: 06-Dec-2017 Intent SBC/INTRM ([id number])By: Flakito ACKERMAN, Comments: lot: [id number]: ite/route: L del/IMamt: 0.5mLVIS signed when applicableEVER Monroy Adelaida A Fast DO, Adelaida A Cartoid DopplerBy: Fast DO, Adelaida On: 06-Sep-2017 Intent A Fast DO, Adelaida A Radiology - Lumbar SpineBy: Fast On: 06-Jun-2017 Intent DO, Adelaida A Fast DO, Adelaida A ELECTROCARDIOGRAM, COMPLETE (ECG) On: 06-Jun-2017 Intent (54714)By: Flakito ACKERMAN Adelaida A Flakito Comments: ekg [...] XRAY, PA & LATERAL On: 18-Jan-2017 Intent ([id number])By: oYla Witt Aerosol Treatment ([id number])By: On: 18-Jan-2017 Intent Yola Witt Solu -Medrol Injection, 125 mg On: 18-Jan-2017 Intent (J2930)By: Yola Witt Comments: solumedrol 125mg injectionlot: [id number]: 12/2018L GMpt tolerated wellAD [employer]ER ELECTROCARDIOGRAM, COMPLETE (ECG) On: 05-Jan-2016 Intent ([id number])By: Adelaida Fraga DO A Flakito Comments: ekg showed normal sinus rhythym, normal axis, no acute st/t wave changes irbb DO, Adelaida A Solu -Medrol Injection, 125 mg On: 09-May-2015 Intent (J2930)By: Samantha Grewal CNP Comments: lot: [id number]: ite/route:RGM/IMamt: 2mLVIS signed when applicableEVER Dumont Aerosol Treatment ([id number])By: On: 09-May-2015 Intent Slarb [employer]ER, Tracey Radiology - Chest- PA and LatBy: [...] A Fast DO, Adelaida A Pulse Oximetry ([id number])By: Fast On: 26-Aug-2014 Intent DO, Adelaida A Fast DO, Adelaida A Comments: 94%- recheck 95 Aerosol Treatment ([id number])By: On: 10-Apr-2014 Intent Tracey Young LPN Eprescribed prescriptions On: 25-Jul-2013 Intent (G8553)By: Fast DO, Adelaida A Fast DO, Adelaida A Pulse Oximetry ([id number])By: Fast On: 02-Jul-2013 Intent DO, Adelaida A Fast DO, Adelaida A Comments: 97% Aerosol Treatment ([id number])By: On: 25-Jun-2013 Intent Samantha Grewal CNP Eprescribed prescriptions On: 25-Jun-2013 Intent (G8553)By: Samantha Grewal CNP Eprescribed prescriptions On: 02-Apr-2013 Intent (G8553)By: Leigh Ann Polk Aerosol Treatment ([id number])By: On: 26-Mar-2013 Intent Samantha Grewal CNP Eprescribed prescriptions On: 26-Mar-2013 Intent (G8553)By: Eliana Carter Eprescribed prescriptions On: 25-Dec-2012 Intent (G8553)By: Leigh Ann Polk Aerosol Treatment ([id number])By: On: 06-Nov-2012 Intent Samantha Grewal CNP Eprescribed prescriptions On: 06-Nov-2012 Intent (G8553)By: Eliana Carter Ear Irrigation (02476)By: Carmina On: 25-Sep-2012 Intent Samantha IRVIN Comments: Ear Irrigation performed on:bilateralAmount/color removed cerumen:large amount of dark brown wax removedOUtcome:clear, pt toleratedUsed wax curettes Wax CurettesBy: Carmina IRVINSamantha On: 25-Sep-2012 Intent Eprescribed prescriptions On: 22-Sep-2012 Intent (G8553)By: Peter ACKERMAN Elizabet Eprescribed prescriptions On: 02-Aug-2012 Intent (G8553)By: Leigh Ann Polk Pulse Oximetry ([id number])By: Flakito On: 30-Jun-2012 Intent DO, Adelaida A Fast DO, Adelaida A Comments: 97% Eprescribed prescriptions On: 12-Jun-2012 Intent (G8553)By: Fast DO, Adelaida A Fast DO, Adelaida A Spirometry (21396)By: Felicitas, On: 17-Jan-2012 Intent Leigh Ann Comments: good effort and curve mild restriction CT - Sinuses CompleteBy: Fast DO, On: 17-Jan-2012 Intent Adelaida A Fast DO, Adelaida A PNEUM VAC ADLT/IMUMNOSPR, On: 17-Jan-2012 Intent SBC/INTRM (12457)By: Boris, Comments: Lot:[id number]:3-5-13Dose:0.5mLRoute:IMSite:L Naifven By:CHELA signed Julia IMMUNIZ ADMNIN, 1 VAC, SNGL/COMBO On: 17-Jan-2012 Intent ([id number])By: Julia Escalante CT - ChestBy: Fast DO, Adelaida A On: 17-Jan-2012 Intent Fast DO, Adelaida A Eprescribed prescriptions On: 17-Jan-2012 Intent (G8553)By: Leigh Ann Polk Eprescribed prescriptions On: 18-Oct-2011 Intent (G8553)By: Fast DO, Adelaida A Fast DO, Adelaida A EKG (49512)By: Fast DO, Adelaida A On: 15-Oct-2011 Intent Fast DO, Adelaida A Comments: ekg- sinus with normal axis and nsivcd and no acute changes Eprescribed prescriptions On: 09-Aug-2011 Intent (G8553)By: Fast DO, Adelaida A Fast DO, Adelaida A PFT - CompleteBy: Fast DO, Adelaida On: 08-Mar-2011 Intent A Fast DO, Adelaida A Pulse Oximetry (93562)By: Carmina On: 02-Feb-2011 Intent Samantha IRVIN Aerosol Treatment ([id number])By: On: 02-Feb-2011 Intent Carmina IRVINSamantha Radiology - Chest- PA and LatBy: On: 18-Jan-2011 Intent Fast DO, Adelaida A Fast DO, Adelaida A Pulse Oximetry ([id number])By: On: 18-Jan-2011 Intent Leigh Ann Polk Comments: 93% TDAP VACCINE >7 IM (50590)By: On: 07-Dec-2010 Intent Leigh Ann Polk Comments: Lot #:[id number] date:mount given:0.5mlRoute: IMSite given:left deltGiven by: DANIEL Zavaleta Eprescribed prescriptions On: 07-Dec-2010 Intent (G8553)By: Fast DO, Adelaida A Fast DO, Adelaida A FLU VAC, SPLIT, >3 YEARS, On: 07-Dec-2010 Intent INTRAMUSC (85489)By: Felicitas, Comments: received at work Leigh Ann Toradol Injection, 30 mg On: 05-Nov-2010 Intent (J1885)By: Elizabet Green DO Comments: Lot:[id number]:apr 05Amt:30mg/mlRoute:IMSite:left hip Given By: ILDA Tran Ear Irrigation (45009)By: Peter On: 05-Nov-2010 Elizabet Thomson DO Comments: Left ear irrigated, large amt of wax removed. pt tolerated well. Eprescribed prescriptions On: 05-Nov-2010 Intent (G8553)By: Elizabet Green DO Wax CurettesBy: Peter ACKERMAN, On: 05-Nov-2010 Intent Elizabet SPECIMEN HNDLNG/TRNSPRT, OFFC > On: 05-Nov-2010 Intent LAB ([id number])By: Elizabet Green DO Nuclear Medicine - HIDA [...] call wet read DO, Adelaida A Spirometry ([id number])By: Fast DO, On: 14-Sep-2010 Intent Adelaida A Fast DO, Adelaida A Comments: good effort and curve- mild restriction Eprescribed prescriptions On: 14-Sep-2010 Intent (G8553)By: Fast DO, Adelaida A Fast DO, Adelaida A Pulse Oximetry (17006)By: Fast On: 14-Sep-2010 Intent DO, Adelaida A Fast DO, Adelaida A Comments: 94-95 Radiology - Chest- PA and LatBy: On: 14-Sep-2010 Intent Fast DO, Adelaida A Fast DO, Adelaida A Pulse Oximetry (37349)By: Carmina On: 23-Feb-2010 Intent ALBARO Anamaria Aerosol Treatment (43254)By: On: 23-Feb-2010 Intent Cialyse IRVIN Anamaria Pulse Oximetry (16782)By: Ciescalin On: 26-Jan-2010 Intent ALBARO Anamaria Aerosol Treatment (43598)By: On: 26-Jan-2010 Intent Cialyse IRVIN Anamaria Spirometry (26826)By: Felicitas On: 29-Apr-2008 Intent Leigh Ann Comments: good effort and curve normal EKG (29389)By: Fast DO, Adelaida A On: 20-Apr-2007 Intent [...] DO, Adelaida A Flakito Comments: Lot #: [id number] date: 10/30Amount given: 2 gramsRoute: IMSite given: Right hip and left hipGiven by: Calin Townsend LPN DO, Adelaida A Spirometry (34683)By: Fast DO, On: 27-Mar-2007 Intent Adelaida A Fast DO, Adelaida A Comments: good effort and curve normal EBV SEROLOGIC TESTBy: Mary Ann Salcido On: 17-Feb-2007 Intent RUDY-GUZMAN VCA ANTIBODY On: 16-Feb-2007 Intent MEASUREMENTBy: Mast RN, Negrita SPECIMEN HNDLNG/TRNSPRT, OFFC > On: 06-Feb-2007 Intent LAB ([id number])By: Fast DO, Adelaida A Fast DO, Adelaida A Ultrasound - TesticularBy: Fast On: 13-Oct-2006 Intent DO, Adelaida A Fast DO, Adelaida A Inhaler Demo ([id number])By: Fast DO, On: 26-Sep-2006 Intent Adelaida A Fast DO, Adelaida A Radiology - Hip - LeftBy: Fast On: 26-Sep-2006 Intent DO, Adelaida A Fast DO, Adelaida A Radiology - Hip - RightBy: Fast On: 26-Sep-2006 Intent DO, Adelaida A Fast DO, Adelaida A Bio Z (48775)By: Fast DO, Adelaida A On: 25-Jul-2006 Intent Fast DO, Adelaida A Comments: normal paremters Six Minute Walk Assessment On: 25-Jul-2006 Intent (51021)By: Fast DO, Adelaida A Fast DO, Adelaida A Radiology - Chest- PA and LatBy: On: 25-Jul-2006 Intent Fast DO, Adelaida A Fast DO, Adelaida A Spirometry ([id number])By: Flakito DO, On: 25-Jul-2006 Intent Adelaida A Fast DO, Adelaida A Comments: good effort and curve- normal EDISON (Ankle Brachial Index) On: 20-Jul-2006 Intent (93145)By: Leigh Ann Polk Comments: done EDISON (Ankle Brachial Index) On: 17-May-2006 Intent ([id number])By: Fast DO, Adelaida A Fast DO, Adelaida A Cartoid DopplerBy: Fast DO, Adelaida On: 17-May-2006 Intent A Fast DO, Adelaida A Planned Medications INJECTION, KETOROLAC TROMETHAMINE, PER 15 MG Ordered: 05-Nov-2010 Pending Peter DO, Elizabet INJECTION, METHYLPREDNISOLONE SODIUM SUCCINATE, UP TO 125 MG Ordered: 09-May-2015 Pending Carmina IRVINSamantha INJECTION, METHYLPREDNISOLONE SODIUM SUCCINATE, UP TO 125 [...] Indication: Neoplasm of uncertain behavior of skin [facility] Physical : Patient Instructions Indication: [facility] [...] Advance Directives Name Dates Details Immunization Registry [place] - Effective on Effective: 31-Jan-201701/31/2017. 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 [...] congestion and ears hurt- [facility] Diagnosis: Cough (786.2), SHORTNESS OF BREATH (Renamed [...] for Follow up ER: Pt went to [facility] and then went to [facility] to have the doppler done.- got [...] up hospital : Pt was transfered to [facility] for heart cath and discharged sat 06/30/13.- he had heart cath again at [facility] and one vessel which shows 20percent more [...] chronic medical issues: had colonsocopy- by ara layotn couple polyps- and repeat 5 years- saw [...] kidney then goes down- [facility] t[facility]- to try colonsocopy- -his breathing [...] saw a Dr Barker a psychiatrist in [place]- he thought mostly anxiety so left him [...] gerd- so he is going back to [facility]- mood good with celexa-less tense, [ADDITIONAL [...] 17-May-2006 15:50 Encounter Reason: new patient male physicial - Last seen between 1-3 months ago. [...] is decreased. Note for new patient male physicial: mood is well controlled and he is [...] [facility] Payers Medicare[employer] Choices [place] guarantor
--- OUTSIDE RECORDS SUMMARY | 2018-05-15 00:48 | XMS RPT_ITS | Continuity of Care Document ---
:1950 Author Organization [facility] Address [address] [place] [address] Phone Care Team Providers Name Role Phone Adelaida Fraga DO Unavailable Remigio Lares MD Unavailable Tawanda Alonso Unavailable [facility] Unavailable Eliana Carter Unavailable [...] colonsoocpy 09/05- polyps - repeat 5 years [facility] [place] Status: Active Coronary artery disease (I25.10, 414.00) [...] Solution daily for 90 days Quantity: 3 {[place]} Refills: 5 Ordered:31-Oct-2017 Adelaida ACKERMAN DO Adelaida A Start : 31-Oct-2017 Active BusPIRone HCl 10 MG Oral Tablet 2 (two) Tablet tid for 90 days Quantity: 540 {Tablet} Refills: 3 Ordered:09-May-2017 Flakito DO, Adelaida AFast DO, Adelaida A Start : 09-May-2017 Active Cyclobenzaprine HCl 10 MG Oral Tablet [...] Quantity: 30 {Capsule} Refills: 3 Ordered:06-Apr-2016 Flakito DO, Adelaida AFast DO, Adelaida A Start : 06-Apr-2016 Active Hydrocodone-Acetaminophen 5-325 MG Oral Tablet 1 (one) Tablet q 6 hours prn for 0 days Quantity: 60 {Tablet} Refills: 0 Ordered:02-Nov-2017 Flakito DO, Adelaida AFast DO, Adelaida A Start : 02-Nov-2017 Active Comments:sixtyDX: M54.16, M51.81651,411,000 - OD risk 100 Lunesta 3 MG [...] 0 Ordered:25-Jul-2013 Adelaida Fraga DO, DO Adelaida Layton Start : 25-Jul-2013 Active Protonix 40 MG Oral Tablet Delayed Release [address] bid for 0 days Quantity: 180 {Tablet} Refills: 3 Ordered:06-Jun-2017 Adelaida Fraga DO, DO Adelaida Layton Start : 06-Jun-2017 Active Proventil [...] days Quantity: 120 {Tablet} Refills: 0 Ordered:06-Apr-2016 Adelaida Fraga DO, DO Adelaida Layton Start : 06-Apr-2016 Active Rosuvastatin Calcium 40 MG Oral Tablet 1 (one) Tablet qd for 0 days Quantity: 30 {Tablet} Refills: 6 Ordered:20-Feb-2018 Adelaida Fraga DO, DO Adelaida Layton Start : 20-Feb-2018 Active Singulair 10 MG [...] {Tablet} Refills: 0 Ordered:04-Jan-2018 Adelaida Fraga DO, DO, Adelaida A Start : 04-Jan-2018 End : [...] Refills: 0 Ordered:12-Jun-2012 Flakito ACKERMAN Adelaida Larios DO, Adelaida A Start : [...] 20-Mar-2013 Inactive Comments:alternate with 20mg(per hans at [facility] - was not fillable if more than 1qd and would require pa at [phone] or [phone] - sent in this way to see if will process -- no id number was given = Karely Diflucan 150 MG Oral Tablet 1 (one) Tablet daily for 7 days Quantity: 7 {Tablet} Refills: 0 Ordered:28-Jan-2017 Adelaida Fraga DO, DO, Adelaida A Start : 28-Jan-2017 End [...] 60 {Tablet} Refills: 0 Ordered:05-Sep-2012 Adelaida Fraga DO, DO, Adelaida A Start : 02-Aug-2012 End : 01-Sep-2012 Inactive Comments:SIXTY Levaquin 500 MG Oral Tablet 1 (one) Tablet daily for 5 days Quantity: 5 {Tablet} Refills: 0 Ordered:15-Jul-2017 Adelaida Fraga DO, DO, Adelaida A Start : 15-Jul-2017 End [...] (Oral Capsule) 1 (one) Capsule Capsule bid f3nvttr for 21 days Quantity: 42 {Capsule} Refills: 0 Ordered:21-Jan-2014 Adelaida Fraga DO, DO, Adelaida A Start : 21-Jan-2014 End [...] : 02-Sep-2010 End : 05-Nov-2010 Inactive NYSTATIN, 281954FBTH/ML (Mouth/Throat Suspension) 10 cc tid for 0 days Quantity: 300 {Suspension} Refills: 0 Ordered:08-Mar-2011 Leigh Ann Polk Start : 25-Feb-2011 End : 08-Mar-2011 Inactive PLAVIX, 75MG (Oral Tablet) 1 qd for 0 days Refills: 0 Ordered:25-Sep-2012 Gabbi Luevano LPN End : 25-Sep-2012 Inactive PredniSONE 10 MG Oral Tablet 1 (one) Tablet TAD for 0 days Quantity: 18 {Tablet} Refills: 0 Ordered:20-Sep-2017 Adelaida Farga DO, DO, Adelaida Layton Start : 06-Sep-2017 [...] : 22-Jun-2013 End : 03-Sep-2013 Inactive ZOSTAVAX, 60424XBR/0.65ML (Subcutaneous Solution Reconstituted) 1 For Solution sc [...] Quantity: 1 {Aero_Pow_Br_Act} Refills: 1 Ordered:25-Dec-2012 Flakito DO Adelaida AFast DO, Adelaida A Start : 25-Dec-2012 End : 25-Dec-2012 Discontinued ADVAIR HFA, 230-21MCG/ACT (Inhalation Aerosol) 2 puffs Aerosol bid for 90 days Quantity: 3 {Inhaler} Refills: 3 Ordered:10-Apr-2014 Slarb THEATER PROJECTIONIST, Tracey Start : 22-Jun-2013 End : 10-Apr-2014 Discontinued ATENOLOL, 50MG (Oral Tablet) 1 tab Tablet qd for 30 days Quantity: 30 {Tablet} Refills: 0 Ordered:10-Apr-2014 Slarb THEATER PROJECTIONIST, Tracey Start : 12-Jun-2012 End : 10-Apr-2014 [...] Quantity: 60 {Capsule} Refills: 3 Ordered:10-Apr-2014 Slarb THEATER PROJECTIONIST, Tracey Start : 29-Oct-2013 End : 10-Apr-2014 Discontinued Dymista 137-50 MCG/ACT Nasal Suspension 1 spray each nostril qd for 0 days Quantity: 2 {[place]} Refills: 0 Ordered:11-Jun-2016 Leigh Ann Polk Start [...] Start : 05-Jan-2016 End : 06-Apr-2016 Discontinued Comments[id number] [id number] viewed and approved- gave scripts to [...] for 0 days Refills: 0 Ordered:12-Aug-2008 Adelaida Fraga DO, DO, Adelaida A End : 25-Jul-2013 Discontinued Comments:This order discontinued per [facility]. OXYBUTYNIN CHLORIDE ER, 10MG (Oral Tablet Extended Release 24 Hour) 1 (one) Tablet ER 24HR qd for 0 days Quantity: 30 {Tablet} Refills: 0 Ordered:23-Sep-2014 Adelaida Fraga DO, DO Adelaida A Start : 23-Sep-2014 End [...] {Capsule_DR} Refills: 2 Ordered:05-Oct-2010 Adelaida Fraga DO, DO Adelaida A Start : 05-Oct-2010 End : 05-Oct-2010 Discontinued QVAR, 40MCG/ACT (Inhalation Aerosol Solution) 1 Aerosol Soln daily for 360 days Refills: 0 Ordered:06-Jan-2015 Adelaida Fraga DO, DO, [...] 42 {Tablet} Refills: 0 Ordered:06-Jan-2015 Flakito DOManoloa AFtesfaye DO, Adelaida A Start : 06-Jan-2015 End : 06-Jan-2015 Discontinued ZITHROMAX Z-PHUC, 250MG (Oral Tablet) tad Tablet qd for 0 days Quantity: 6 {Package} Refills: 0 Ordered:10-Apr-2014 Slarb THEATER PROJECTIONIST, Tracey Start : 06-Feb-2014 End : 10-Apr-2014 [...] x3 one on scalp two on right pentecostalism Status: Inactive as of 06-Jun-2017 Acute sinusitis, [...] Visit Report Result: Comments: See Note; NOTES: [facility] [address] [place] [address] OFFICE VISIT Date of Service: 01/10/18 MR#: [id number] Acct: [id number] Name: YUMIKO LANDRUM Rep #: [id number] : 1950 Provider: Sabra Leonard Age/Sex: 67/M Location: [facility] Status: Signed HPI HPI Details: YUMIKO LANDRUM, [...] 108/56 L Intake Visit Reasons: 6 M Rate Clerk Required: No Accompanied by: None Is patient [...] Prinzmetal angina (Acute) Atherosclerotic heart disease of council coronary artery without angina pectoris (Beater Tender allyssa) Anxiety (Chronic) Asthma (Chronic) BPH (benign [...] function LVEF: by LV gram 65 % [place] Multivessel CAD LAD stent: patent DX stent: patent RECOMMENDATIONS Risk factor modification Medical therapy Assessment AND Plan 1. Atheros clerosis of council coronary artery of council heart without angina pectoris I25.10 PTCA/RINA to [...] Code Off vis,est,level 3 Diagnoses Atherosclerosis of council coronary artery of council heart without angina pectoris I25.10 [place] vs. tra nsplanted heart: council heart Essential hypertension I10 Hypertension type: essential hypertension Pure hypercholesterolemia E78.00; E78.0 Hyperlipidemia type: pure hypercholesterolemia Prinzmetal angin a I20.1 Coding Level of Care Code Off vis,est,level 3 Diagnoses Atherosclerosis of council coronary artery of council heart without angina pectoris I25.10 [place] vs. transplanted heart: council heart Es sential hypertension I10 Hypertension type: essential hypertension Pure hypercholesterolemia E78.00; E78.0 Hyperlipidemia type: pure hypercholesterolemia Prinzmetal angina I20.1 01/10/18 1104 &#6 0;Electronically signed by Sabra KENDALL> Date Sabra KENDALL Cosigner Signature: Date (if applicable) CC: Adelaida Fraga DO 26-Sep-2017 Brain W/WO Contrast Result: Comments: See Note; NOTES: [facility] Imaging Services [address] [place] [address] Brain W/WO Contrast MR#: [id number] Acct: [id number] Name: YUMIKO LANDRUM Rep #: [id number] : 1950 M 67 From: Rodney Sarah MD PCP: Adelaida Fraga DO Status: REG CLI Study: Brain W/WO Contrast Date of Exam: 09/26/17 Exam# [id number] Ordering Dr: Perico Crowe MD STUDY: MRI [...] CC: Perico Crowe MD; Adelaida Fraga DO Fusing Line Inspector: Signed 17-Sep-2017 Carotid Duplex Ultrasound Result: Comments: See Note; NOTES: [facility] Cardiovascular Services [address] [place] [address] Carotid Duplex Ultrasound 09/16/17 1012 MR#: [id number] Acct: [id number] Name: YUMIKO MCCOLLUM #: [id number] : 1950 66 From: Jung Garcia MD Attending Dr: Adelaida Fraga DO Status: REG CLI Ordering Dr: Adelaida Fraga DO Date: 09/16/17 Location: [facility] Sex: M C Admitted: Reason For [...] the left vertebral artery. Procedure Carotid Duplex 06098. The study was technically difficult. Exam performed [...] DO Date Dictated: 1012 Date Transcribed: 09/17/17 1511 Fusing Line Inspector: Signed 17-Aug-2017 History and Physical Exam Result: Comments: See Note; NOTES: [facility] Medical Records Department [address] [place] [address] History and Physical 08/17/17913 MR#: [id number] Acct: [id number] Name: LYON ZAINDUSTY E Rep #: [id number] : 1950 66 From: Remigio Lares MD PCP: Adelaida Fraga DO Status: REG [facility] [place] Location: [facility] Problem List (1) Abnormal stress test Status: Acute (2) Atherosclerotic heart d isease of council coronary artery without angina pectoris Status: Chronic Qualifiers: [place] vs. transplanted heart: council heart Qualified Code(s): I25.10 - Atherosclerotic heart disease of council coron elise artery without angina pectoris Comment: [...] was trivial MR and TR and mild TN. His estimated RV systolic pressure was 30 [...] please see previously dictated out the patient KONGIGANAK from 07/14/2017. Review of systems: Upon review [...] this approach. This note was generated with Haolianluo dictation software. It may contain incorrect words, spelling, and punctuation that were not noted in checking the note bef ore signing. 08/17/17 0925 <Electronically signed by Remigio Lraes MD> Date Remigio Lares MD Cosigner Signature: Date (if applicable) CC: Adelaida Fraga DO; Remigio Lares MD Signed 11-Aug-2017 Chest PA and Lateral Result: Comments: See Note; NOTES: [facility] Imaging Services [address] [place], [place] [address] [address] Chest PA and Lateral MR#: [id number] Acct: [id number] Name: YUMIKO LANDRUM Rep #: [id number] : 1950 M 66 From: Will Guerrero MD PCP: Adelaida Fraga DO Status: REG CLI Study: Chest PA and Lateral Date of Exam: 08/11/17 Exam# [id number] Ordering Dr: Remigio Lares MD STUDY: X-RAY [...] CC: Adelaida Fraga DO; Remigio Lares MD Fusing Line Inspector: Signed 02-Aug-2017 Stress Report Result: Comments: See Note; NOTES: [facility] Cardiovascular Services [address] [place] [address] MR#: [id number] Acct: [id number] Name: YUMIKO LANDRUM Rep #: [id number] : [birth year] 66 From: Remigio Lares MD [...] 72 %. This note was generated with Flitto software. It may contain incorrect words, spelling, and punctuation that were not noted in checking the note before signing. 08/02/17 6065 <Electronically signed by Remigio Lares MD> Date Remigio Lares MD CC: Adelaida Fraga DO; Remigio Lares MD Date Dictate d: 06/02/07 1639 Date Transcribed: 08/02/171638 Fusing Line Inspector: PM Signed 14-Jul-2017 Cardiology Visit Report Result: Comments: See Note; NOTES: [facility] [address] [place] [address] OFFICE VISIT Date of Service: 07/14/17 MR#: [id number] Acct: [id number] Name: YUMIKO LANDRUM Rep #: [id number] : 1950 Provider: Remigio Lares MD Age/Sex: 66/M Location: [facility] Status: Signed HPI HPI Details: YUMIKO LNADRUM, is a 66 M who presents to the office today for outpatient card iovascular consultation for history of underlying CAD status post LAD PCI. He has been cared for in the past both by the [facility] members (Drs. Griggs and Edwin), at [facility] by Dr. Rosales, and at [facility] by Dr. Maury Veliz. He states he lost saw Dr. Veliz approximately 1 year ago. He is now relocating his care locally. He has a history of underlying CAD. He underwent a previous diagnostic car diac catheterization on 08/11/2005 at [facility]. At that point in time he [...] luminal irregularities. He apparently was transferred to [facility] for further evaluation and care. The results [...] an LYNDSEY inhibitor. He believes his former bank appraiser remove these medications from wi s medication list. He does not recall [...] Prinzmetal angina (Acute) Atherosclerotic heart disease of council coronary artery without angina pectoris (Chroni c) [...] affect Assessment AND Plan 1. Atherosclerosis of council coronary artery of council heart without angina pectoris I25.10 PTCA/RINA to [...] Code Off vis,new,level 4 Diagnoses Atherosclerosis of council coronary artery of council heart without angina pectoris I25.10 [place] vs. transplanted heart: n ative heart Presence of stent in coronary artery Z95.5 Hyperlipidemia, unspecified hyperlipidemia type E78.5 Hyperlipidemia type: unspecified Essential hypertension I10 Hypertension type: essential hype rtension COPD (chronic obstructive pulmonary disease) J44.9 Coding Level of Care Code Off vis,new,level 4 Diagnoses Atherosclerosis of council coronary artery of council heart without angina pectoris I 25.10 [place] vs. transplanted heart: council heart Presence of stent in coronary artery Z95.5 Hyperlipidemia, unspecified hyperlipidemia type E78.5 Hyperlipidemia type: unspecified Essential hypertension I10 Hypertension type: essential hypertension COPD (chronic obstructive pulmonary disease) J44.9 07/14/17 1558 <Electronically signed by Remigio Lares MD> Date Remigio Lares MD Cosigner Signature: Date (if applicable) CC: Adelaida Fraga DO 14-Jul-2017 12 Lead EKG performed by [facility] Result: Comments: See Note; NOTES: [facility] [address] [place] [address] 12 Lead EKG performed by [facility] 07/14/171435 MR#: [id number] Acct: [id number] Name: YUMIKO LANDRUM Rep #: [id number] : 1950 66 From: Remigio Lares MD Attending Dr: Remigio Lares MD Status: DEP [facility] Ordering Dr: Remigio Lares MD Date: 07/14/17 [place] [facility] Sex: M C Admitted: BMS/12 Lead EKG performed by [facility] ECG Report Interpretation Sinus Rhythm Right bundle branch block. ABNORMAL Electronically signed on 07/14/2017 at 17:15 by Remigio Lares 07/14/17 1717 Date Remigio Lares MD CC: Adelaida Fraga DO Date Dictated: 07/14/171435 Date Transcribed: 07/14/171435 Fusing Line Inspector: PM Signed 04-Jul-2017 TXT - Blood Flow Screening Result: Comments: See Note; NOTES: [facility] Cardiovascular Services [address] [place] [address] 07/04/17 0840 MR#: [id number] Acct: [id number] Name: YUMIKO LANDRUM Rep #: [id number] [...] (1.0 or greater). Ordering Physician: Adelaida Fraga [facility] Physician: Adelaida Fraga Performed By: Kayla Kelley, MORE, RVT 07/04/17 2222 Date Tyrese Garcia MD CC: Adelaida Fraga DO Date Dictated: 07/04/17 0840 Date Transcribed: 07/04/172221 Fusing Line Inspector: Signed 06-Jun-2017 L/S Spine Min 4 Views Result: Comments: See Note; NOTES: [facility] Imaging Services [address] [place] [address] L/S Spine Min 4 Views MR#: [id number] Acct: [id number] Name: YUMIKO LANDRUM Rep #: [id number] : 1950 M 66 From: Rafael Manley DO PCP: Adelaida Fraga DO Status: REG CLI Study: L/S Spine Min 4 Views Date of Exam: 06/06/17 Exam# [id number] Ordering Dr: Adelaida Fraga DO STUDY: X-RAY [...] Rafael Manley DO at 18:01 EDT Tel [phone], Service support , CC: Adelaida Fraga DO Fusing Line Inspector: Signed 18-Feb-2017 Ankle min 3 Views Result: Comments: See Note; NOTES: [facility] Imaging Services [address] [place] [address] Ankle min 3 Views MR#: [id number] Acct: [id number] Name: YUMIKO LANDRUM Rep #: [id number] OB: 1950 M 66 From: Trevon Carrillo MD PCP: Adelaida Fraga DO Status: REG CLI Study: Ankle min 3 Views Date of Exam: 02/18/17 Exam# [id number] Ordering Dr: Adelaida Fraga DO STUDY: X-RAY [...] Service support , CC: Adelaida Fraga DO Fusing Line Inspector: Signed 18-Feb-2017 Chest without Contrast Result: Comments: See Note; NOTES: [facility] Imaging Services [address] [place] [address] Chest without Contrast MR#: [id number] Acct: [id number] Name: YUMIKO LANDRUM Rep #: [id number] : 1950 M 66 From: Kaitlin Campoverde PCP: Adelaida Fraga DO Status: REG CLI Study: Chest without Contrast Date of Exam: 02/18/17 Exam# [id number] Ordering Dr: Adelaida Fraga DO STUDY: CT [...] Service support , CC: Adelaida Fraga DO Fusing Line Inspector: Signed 10-Feb-2017 Chest PA and Lateral Result: Comments: See Note; NOTES: [facility] Imaging Services [address] [place] [address] Chest PA and Lateral MR#: [id number] Acct: [id number] Name: YUMIKO LANDRUM Rep #: [id number] : 1950 M 66 From: Chava Fu MD PCP: Adelaida Fraga DO Status: REG CLI Study: Chest PA and Lateral Date of Exam: 02/10/17 Exam# [id number] Ordering Dr: Yola Witt STUDY: X-RAY CHEST [...] Service support , CC: COCO Witt; Adelaida Fraag DO Fusing Line Inspector: Signed 18-Jan-2017 Chest PA and Lateral Result: Comments: See Note; NOTES: [facility] Imaging Services [address] [place] [address] Chest PA and Lateral MR#: [id number] Acct: [id number] Name: YUMIKO LANDRUM Rep #: [id number] : 1950 M 66 From: Erwin Jiménez MD PCP: Adelaida Fraga DO Status: REG CLI Study: Chest PA and Lateral Date of Exam: 01/18/17 Exam# [id number] Ordering Dr: Yola Witt STUDY: X-RAY CHES [...] EST Tel , Service support , CC: ALBACORE FISHING BOAT CREWMANSusanC Yola Witt; Adelaida Fraga DO Fusing Line Inspector: Signed 11-Apr-2015 Chest PA and Lateral Result: Comments: See Note; NOTES: [facility] Imaging Services [address] [place] [address] Verdana 4d Chest PA and Lateral MR#: [id number] Acct: [id number] Name: YUMIKO LANDRUM Rep #: [id number] : 1950 M 64 From: Stephen Barba MD PCP: Adelaida Fraga DO Status: REG CLI Study: Chest PA and Lateral Date of Exam: 04/11/15 Exam# [id number] Ordering Dr: Adelaida Fraga DO STUDY: X-RAY [...] FACR at 20:20 EST , Service support [phone], RAD/Chest PA and Lateral IMPRESSION: Normal x-ray examination of the chest. No lingular infiltrate is noted on today's examination Electronically Signed: tSephen Barba MD, FACR at 20:20 EST , Service support [phone], CC: Adelaida Fraga DO Fusing Line Inspector: Signed 11-Apr-2015 Hip min 2 Views Result: Comments: See Note; NOTES: [facility] Imaging Services [address] [place] [address] Verdana 4d Hip min 2 Views MR#: [id number] Acct: [id number] Name: DOMINICKCITLALLI Rep #: [id number] : 1950 M 64 From: Stephen Barba MD PCP: Adelaida Fraga DO Status: REG CLI Study: Hip min 2 Views Date of Exam: 04/11/15 Exam# [id number] Ordering Dr: Adelaida Fraga DO ST UDY: [...] FACR at 20:19 EST , Service support [phone], RAD/Hip min 2 Views IMPRESSION: Normal x-ray examination of the pelvis and hip. Electronically Signed: Stephen Barba MD, FACR 201 07/23/18 at 20:19 EST , Service support [phone], CC: Adelaida Fraga DO Fusing Line Inspector: Signed 11-Apr-2015 L/S Spine Min 4 Views Result: Comments: See Note; NOTES: [facility] Imaging Services [address] [place] [address] Verdana 4d L/S Spine Min 4 Views MR#: [id number] Acct: [id number] Name: YUMIKO LANDRUM Rep #: [id number] : 1950 M 64 From: Stephen Barba MD PCP: Adelaida Farga DO Status: REG CLI Study: L/S Spine Min 4 Views Date of Exam: 04/11/15 Exam# [id number] Ordering Dr: Susannah Fraga ra, DO STUDY: [...] FACR at 20:20 EST , Service support [phone], RAD/L/S Spine Min 4 Views IMPRESSION: M ild degenerative disc disease at L2-3 and L5-S1. Facet arthrosis at L4-5 and L5-S1. Mild dextroscoliosis. Electronically Signed: Stephen Barba MD, FACR at 20:20 EST Tel , Service support [phone], CC: Adelaida Fraga DO Fusing Line Inspector: Signed 27-Aug-2014 Chest PA and Lateral Result: Comments: See Note; NOTES: [facility] Imaging Services [address] [place] [address] Radiology Report MR#: [id number] Acct: [id number] Name: YUMIKO LANDRUM Rep #: [id number] : 1950 M 63 From: Wilfredo Alvarado MD PCP: Adelaida Fraga DO Status: REG CLI Study: Chest PA and Lateral Date of Exam: 08/27/14 Exam# [id number] Ordering Dr: Adelaida Fraga DO STUDY: X- [...] Wilfredo Alvarado MD at 15:46 EDT Tel [phone], Service support [phone], 0079 RAD/Chest PA and Lateral IMPRESSION: Inc reased markings in the lingular segment of the left upper lobe suggestive of early infiltrate. Followup is recommended. Electronically Signed: Wilfredo Alvarado MD at 15:46 EDT Tel [phone], Service support [phone], CC: Adelaida Fraga DO Fusing Line Inspector: Signed 02-Jul-2013 12 Lead Electrocardiogram Result: Comments: See Note; NOTES: [facility] Cardiovascular Services [address] [place] [address] 12 Lead EKG 06/17/13 1938 MR#: [id number] Acct: [id number] Name: CITLALLI LANDRUM Rep #: [id number] : 1950 62 From: Remigio Lares MD Attending Dr: Status: [facility] Ordering Dr: Jose Fernando MD Date: [...] undle branch block Abnormal ECG Confirmed by REMIGIO LARES MD ([id number]), editor school photograph MADELYN RUBALCAVA ([id number]) on 2013 10:04:35 AM Referred By: Jose Fernando Confirmed By:REMIGIO LARES MD CC: Adelaida byrd DO Date Dictated: 06/17/131937 Date Transcribed: 06/17/131937 Fusing Line Inspector: Signed 30-Jun-2013 Emergency Department Summary Result: Comments: See Note; NOTES: [facility] Medical Records Department [address] [place] [address] Emergency Department Summary MR#: [id number] Acct: [id number] Name: YUMIKO LANDRUM Rep #: [id number] : 1950 62 From: Jose Fernando MD PCP: Adelaida Fraga DO Status: DEP ER DATE OF SERVICE: 06/28/2013 CHIEF COMPLAINT: Chest pain. HISTORY OF PRESENT ILLNESS: The patient states over the past 8 hours, he has had intermittent discomfort in the chest of burning to ache similar to angina. He had an TN, he thinks, back in 2011 when he had a stent placed by Dr. Mariah carr in [facility]. He has been off his blood [...] sensation, cranial nerve function and treatment. [facility] DEPARTMENT COURSE: Portable one-view [...] a 3. He agreed to go to [facility] where his bank appraiser is in case he needs another cath and stent. He was stable for transfer. I spoke with [facility] larisa, Jorge and Dr. Trujillo as elevated guard accepted the patient after being advised of all the above through the transfer development team lead. He did not want to talk to me. The patient is stable for transfer, with him. DIAGNOSES: 1. Chest pain. 2. Unstable angina. MD Abdullahi Vasquez C: Adelaida Fraga DO T: NTS JOB: [id number] 06/30/13 0021 <Electronically signed by Jose Fernando MD> Date Jose Fernando MD CC: Adelaida Fraga DO Date Dictated: 06/28/132254 Date Transcribed: 06/28/132254 Fusing Line Inspector: Signed 28-Jun-2013 Chest 1 View (Portable) Result: Comments: See Note; NOTES: [facility] Imaging Services [address] [place] [place] [address] Radiology Report MR#: [id number] Acct: [id number] Name: YUMIKO LANDRUM Rep #: [id number] : 1950 M 62 From: Wilfredo Alvarado MD PCP: Adelaida Fraga DO Status: DEP ER Study: Chest 1 View (Portable) Date of Exam: 06/28/13 Exam# [id number] Ordering Dr: Jose Fernando MD STUDY: X-RAY [...] Wilfredo Alvarado MD at 9:06 EDT Tel [phone], Service support [phone], CC: Adelaida Fraga DO; Jose Fernando MD Fusing Line Inspector: Signed Immunization Name Dates Details Influenza vaccine, split, 3yrs &>, IM (AFLURIA) on: Nov-2017 Influenza, inj, MDCK, preservative free, q.valent on: 07-Dec-2016 Comments: Site: Lot #: [id number] Family History Unknown Family Member Name Dates [...] Status: Active 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 criteria.Please note revised GLUCOSE reference range tiolvfwvf38/02/2018. 38-Ybi-823991:31 Hemoglobin A1c Comments: [facility] [address] [place], [place], [address] HGB A1C 6.0 % (Normal) Range: 4.2-6.3 10-Mjz-078592:31 Lipid Profile Comments: [facility] [address] [place], [place], [address] VLDL 24 mg/dL (Normal) Range: 5-40 LDL [...] 200-240 mg/dL Borderline >240 mg/dL High Risk 79-Fqf-079677:31 PSA,Total - Annual Screen Comments: [facility] [address] [place], [place], [address] PSA,TOT SCREEN 0.50 ng/mL (Normal) Range: 0.00-4.00 Comments: This test was performed using the TPSA assay method for the[facility] chemistry system. Values obtained with differentassay methods cannot be used interchangably.When changing PSA assays in the course of monitoring apatient, additional sequential testing should be carriedout to confirm baseline values. 02-Yqz-374096:42 Aspergillus Antibodies Comments: [facility] (refer to report for specific site)refer to report for address and phone number Asp. niger Negative (Normal) Asp. flavus Negative (Normal) Asp. fumigatus Negative (Normal) 67-Rdl-023088:42 Immunoglobulin E Comments: [facility] (refer to report for specific site)refer to report for address and phone number IMMUNO E 19 {IU/mL} (Normal) Range: 0-100 13-Qlt-611542:42 Immunoglobulin G Comments: [facility] (refer to report for specific site)refer to report for address and phone number IMMUNO G 702 mg/dL (Normal) Range: 700-1600 Comments: Performed at: [address] [id number] Director: Joseph Velez MD, Phone: [phone] at: [address] [id number] Director: Hugo Britt PhD, Phone: [phone] 81-Yhj-811253:42 Miscellaneous Lab Comments: Comments: [id number],TIGER,RTTest(s) Ordered: [id number],TIGER,[facility] Vynpizsuzv3299 [place], [address] Procedure MIS Comments: TEST RESULT UNITS REFERENCE INTERVALA. fumigatus #1 Abs NEGATIVE NEGATIVE TESTING PERFORMED AT [facility]. O LAB (Normal) RIGINAL REPORT ON FILE IN LAB CONTAINS ADDITIONAL TEST SITE INFORMATION. TEST 2-Efz-247390:28 Acetylcholine Receptor Comments: Has Patient had Radioactive Injection for X-ray?: [facility] (refer to report for specific site)refer to report for address and phone number ACTYL [id number] < 0.03 nmol/L (Normal) Range: 0.00-0.24 Comments: Negative: 0.00 - 0.24 Borderline: 0.25 - 0.40 Positive: > 0.40Performed at: [place] [address] C [id number] Director: Joseph Velez MD, Phone: [phone] 3-Dnm-501315:28 BUN 9 mg/dL (Normal) Comments: [place] [address] [address] [place], [address] Range: 7-18 3-Meg-554188:28 Serum Creatinine AND GFR Comments: [address] [place], [address] EST GFR - AA 100 mL/min (Normal) Comments: GFR Calc EST GFR 83 mL/min (Normal) Comments: Non- GFR Calc CREAT,SERUM 0.97 mg/dL (Normal) Range: 0.70-1.30 Comments: The validity of the calculated GFR AND GFRAA in patients over70 years has not been determined. Clinical correlation isessential. 27-Xeo-458706:13 Culture, Fungus 8482 Comments: [place] [address] [place], [address] CUF See Note Comments: Cu,Xzviwz7924 TESTING PERFORMED AT [facility]. ORIGINAL REPORT ON FILE IN LAB CONTAINS ADDITIONAL TEST SITE INFORMATION. (Normal) ORGANISM 1: Barron albicansAmount Growth Growth ORGANISM 2: Penicillium speciesAmount Growth Growth 86-Epw-663419:13 Culture, Sputum Comments: [place] [address] [address] [place], [address] CUSP See Note (Normal) Comments: Gram StainAcceptable Specimen? Yes (<25 Epithelial cells per/lpf) Gram Stain 2+ White Blood Cells 2+ Epithelial cells 4+ Gram positive cocci 4+ Gram positive rods Resp. CultureNo Haemoph ilus, Streptococcus pneumoniae, beta-hemolytic Streptococcus or Staphylococcus aureus isolated. ORGANISM 1: Yeast Like OrganismAmount Growth Rare ORGANISM 2: Mixed FloraAmount Growth 3+ 50-Dwg-449673:59 CBC W/Diff, Automated Comments: [facility] Wbsjcsquhl95[address] [place], [place], [address] Absolute Lymph 1.98 {X10_3/ul} (Normal) Range: 0.83-4.51 [...] 4.6-6.2 WBC 10.8 K/mm3 (Normal) Range: 4.4-11.0 45-Mrx-134954:59 Comprehensive Metabolic Profil Comments: [facility] Vpaocrcxee0698 [address] [place], [place], [address] GAP 10 (Normal) Range: 5-15 CO2 27.0 [...] A.D.A. criteria.Please note revised GLUCOSE reference range erccxwgbi11/02/2018. 83-Kdy-944011:59 Hemoglobin A1c Comments: [facility] Svoxbfbcgg2[address] [place], [address] HGB A1C 6.2 % (Normal) Range: 4.2-6.3 69-Yuw-054333:59 Lipid Profile Comments: [facility] Itrmlqevlx6392 [address] [place], [place], [address] VLDL 13 mg/dL (Normal) Range: 5-40 LDL [...] 200-240 mg/dL Borderline >240 mg/dL High Risk :59 Microalb:Creat Ratio,Random UR Comments: [facility] Noqoyutyun1532 [address] [place], [place], [address] MALB:CREAT 10.1 {mg/g_CRE} (Normal) MICROALBUMIN,UR 5.6 mg/L (Normal) UR CREAT 55.70 mg/dL (Normal) 0-Brs-719610:45 Basic Metabolic Profile (BMP) Comments: [facility] Llynigyrjr19[address] [place], [place], [address] GAP 6 (Normal) Range: 5-15 CO2 29.0 [...] Comments: Please note revised GLUCOSE reference range czhfinmqt62/02/2018. 7-Tks-891520:45 Lipid Profile Comments: [facility] Wpctuhhema6450 [address]oms[address]. [place], [place], [address] VLDL 22 mg/dL (Normal) Range: 5-40 LDL [...] 200-240 mg/dL Borderline >240 mg/dL High Risk 0-Xxi-007476:45 Liver Profile Comments: [facility] Tngmflocog9208 [address]. [place], [place], [address] D BILI 0.13 mg/dL (Normal) Range: 0.00-0.30 T BILI 0.50 mg/dL (Normal) Range: 0.20-1.00 ALT 27 U/L (Normal) Range: 16-61 ALK P 53 U/L (Normal) Range: 45-117 AST 20 U/L (Normal) Range: 15-37 GLOB 4.3 g/dL (Abnormal) Range: 2.2-4.2 ALB 3.0 g/dL (Abnormal) Range: 3.2-5.0 T PROT 7.3 g/dL (Normal) Range: 6.4-8.2 56-Zkm-000495:31 Basic Metabolic Profile (BMP) Comments: [facility] Rxzdhvipwb8353 [address]. [place], [place], [address] GAP 4 (Abnormal) Range: 5-15 CO2 27.0 [...] A.D.A. criteria.Please note revised GLUCOSE reference range yfblokmrp46/02/2018. 06-Zvo-447063:31 CBC-Complete Blood Cnt No Diff Comments: [facility] Tenrdqbrdr0578 [place], [address] MPV 8.7 fL (Normal) Range: 6.2-12.0 PLT [...] 4.6-6.2 WBC 9.6 K/mm3 (Normal) Range: 4.4-11.0 17-Bbv-074929:31 Partial Thromboplast Time Comments: [place] [address] [place], [address] PTT 26.1 s (Normal) Range: 24.1-36.2 :31 Prothrombin Time w/INR Comments: [place] [address] [place], [address] INR 0.9 (Normal) PROTIME 12.5 s (Normal) Range: 11.7-14.9 :00 Culture, Fungus 8482 Comments: [place] [address] [place], [address] CUF See Note Comments: CuZgyvwq0419 TESTING PERFORMED AT [facility]. ORIGINAL REPORT ON FILE IN LAB CONTAINS ADDITIONAL TEST SITE INFORMATION. (Normal) ORGANISM 1: Barron albicansAmount Growth Growth ORGANISM 2: Penicillium speciesAmount Growth Growth ORGANISM 3: Aspergillus speciesAmount Growth Growth :00 Culture, Sputum Comments: [place] [address] [place], [address] CUSP See Note (Normal) Comments: Gram StainAcceptable Specimen? Yes (<25 Epithelial cells per/lpf) Gram Stain 1+ White Blood Cells Rare Epithelial cells 4+ Gram positive rods 1+ Gram negative rods Resp. Culture Mixed nor mal respiratory ashkan. No Haemophilus, Streptococcus pneumoniae, beta-hemolytic Streptococcus or Staphylococcus aureus isolated. 06-Ztn-910959:00 Culture, Sputum Comments: [place] [address] [place], [address] CUSP See Note (Normal) Comments: Gram StainAcceptable Specimen? Yes (<25 Epithelial cells per/lpf) Gram Stain 1+ White Blood Cells Rare Epithelial cells 3+ Gram positive cocci Resp. CultureMixed normal respiratory ashkan. No Haemophilus, Streptococcus pneumoniae, beta-hemolytic Streptococcus or Staphylococcus aureus isolated. 64-Gtz-961549:44 TESTOSTERONE FREE (71001) Comments: PATIENT NOT FASTINGPERFORMED BY: [address] [id number] BY: [address] [id number] Free Testosterone(Direct) 2.6 pg/mL (Abnormal) Range: 6.6-18.1 17-Qfs-002688:44 HEPATITIS C ANTIBODY Comments: PATIENT NOT FASTINGPERFORMED BY: [address] [id number] BY: [address] [id number] ([address]) Hep C Virus Ab 0.1 {s/co_ratio} (Normal) Range: 0.0-0.9 Comments: Negative: < 0.8 Indeterminate: 0.8 - 0.9 Positive: > 0.9 . The CDC recommends that a positive HCV antibody result be followed up with a HCV Nucleic Acid Amplification test (968019). 44-Ghj-149881:44 CBC W/AUTO DIFF WBC Comments: PATIENT NOT FASTINGPERFORMED BY: [address] [id number] BY: [address] [id number] (9[address]78) Immature Grans (Abs) 0.0 {x10E3/uL} (Normal) Range: [...] 4.14-5.80 WBC 6.1 {x10E3/uL} (Normal) Range: 3.4-10.8 07-Jlf-955025:44 METABOLIC PANEL, Comments: PATIENT NOT FASTINGPERFORMED BY: CB [facility] Pqquvu7705 [facility] [id number] BY: BN [facility] [address] [id number] RUST ([address]) ALT (SGPT) 17 [iU]/L (Normal) Range: 0-44 [...] 8-27 Glucose 102 mg/dL (Abnormal) Range: 65-99 35-Nfe-390172:15 HgA1C , Office (97627) HgA1C , Office 5.7 % (Normal) Range: 4.6 - 7.1 :30 CBC W/Diff, Automated Comments: [facility] Ikbgnkmchw9[address] [place], [place], [address] Absolute Lymph 1.76 {X10_3/ul} (Normal) Range: 0.83-4.51 [...] 4.6-6.2 WBC 6.7 K/mm3 (Normal) Range: 4.4-11.0 68-Lbr-857528:30 Comprehensive Metabolic Profil Comments: [facility] Avpyhrsima4564 [address] [place], [place], [address] GAP 9 (Normal) Range: 5-15 CO2 25.0 [...] 7-18 GLU 78 mg/dL (Normal) Range: 70-110 72-Rei-030913:30 Culture, Urine Comments: [facility] [address] [place], [address] CUUR See Note (Normal) Comments: Urine CultureCulture exhibits no growth. 29-Xfk-690099:30 Lipid Profile Comments: [facility] [address] [place], [address] VLDL 19 mg/dL (Normal) Range: 5-40 LDL [...] 200-240 mg/dL Borderline >240 mg/dL High Risk 76-Zse-892166:10 Rapid Strep Test, Office (23312) Comments: Negative Rapid Strep Test, Office Negative (Normal) 65-Oii-18467:51 THROAT CULTURE (15930) Comments: PATIENT NOT FASTINGPERFORMED BY: c6 [facility] [id number] Information: SRC: Result 1 RRF (Normal) Comments: Routine respiratory ashkan Upper Respiratory Culture Final report (Normal) 86-Giv-272790:02 Rapid Flu (64315 x 2) Comments: Negative Influenza A Ag Negative (Normal) 53-Lcf-896221:45 URINE WARREN CULTURE-IDENTIFICATN Comments: PERFORMED BY: [employer] [facility] [id number] Information: SRC: (02187) Result 1 NG36 (Normal) Comments: No growth in 36 - 48 hours. Urine Culture,Comprehensive Final report (Normal) 19-Ovq-108368:02 Urinalysis, Office (86871) UA - LEUKOCYTE ESTERASE Negative (Normal) UA - NITRITE Negative (Normal) URINE UROBILINGN MASSIEL TIMED Normal mg/dL (Normal) UA - PROTEIN Negative mg/dL (Normal) UA - PH 7 (Normal) UA - BLOOD Negative (Normal) UA - SPECIFIC GRAVITY 1.020 (Normal) UA - KETONES Negative mg/dL (Normal) UA - BILIRUBIN Negative (Normal) UA - GLUCOSE Negative (Normal) :22 CBC W/Diff, Automated Comments: [facility] Jwliraainz[address] [place], [place], [address] Absolute Lymph 1.50 {X10_3/ul} (Normal) Range: 0.83-4.51 [...] 4.6-6.2 WBC 6.2 K/mm3 (Normal) Range: 4.4-11.0 53-Ykh-541355:22 Comprehensive Metabolic Profil Comments: [facility] Supuozxfhl05[address] [place], [place], [address] ; will review opn 11/10 GAP 7 [...] 7-18 GLU 104 mg/dL (Normal) Range: 70-110 87-Zcx-143987:22 Hemoglobin A1c Comments: [facility] Qfdvttntrc7149 [address] [place], [place], [address] HGB A1C 5.6 % (Normal) Range: 4.2-6.3 21-Zzc-604167:22 Immunofixation, Serum Comments: [facility] (refer to report for specific site)refer to report for address and phone number PAULA RESULT,S Comment (Normal) Comments: No monoclonality detected. IMMUNOGL M 53 mg/dL (Normal) Range: 20-172 IMMUNO A 169 mg/dL (Normal) Range: 61-437 IMMUNO G 692 mg/dL (Abnormal) Range: 700-1600 95-Uoy-854276:22 [place] [employer] Comments: [facility] (refer to report for specific site)refer to report for address and phone number KAPPA/LAMBDA % 1.17 (Normal) Range: 0.26-1.65 Comments: Performed at: [address] [id number] Director: Hugo Britt PhD, Phone: [phone] FR LAMBDA LT CH 12.3 mg/L (Normal) Range: 5.7-26.3 FR KAPPA LT CHN 14.4 mg/L (Normal) Range: 3.3-19.4 20-Szu-405124:22 Lipid Profile Comments: [facility] Qvsnzieukh6866 [place], [address] VLDL 20 mg/dL (Normal) Range: [...] 200-240 mg/dL Borderline >240 mg/dL High Risk 16-Pnd-768744:22 Microalb:Creat Ratio,Random UR Comments: [facility] Evxowhotbu[address] [place], [address] ; will review on 11/10 MALB:CREAT 5.6 {mg/g_CRE} (Normal) MICROALBUMIN,UR 7.2 mg/L (Normal) UR CREAT 128.00 mg/dL (Normal) 96-Xty-324407:22 PSA,Total - Annual Screen Comments: [facility] Hqasvssctz58[address] [place], [place], [address] PSA,TOT SCREEN 0.63 ng/mL (Normal) Range: 0.00-4.00 Comments: This test was performed using the TPSA assay method for [employer] chemistry system. Values obtained with differentassay methods cannot be used interchangably.When changing PSA assays in the course of monitoring apatient, additional sequential testing should be carriedout to confirm baseline values. :07 CBC W/Diff, Automated Comments: [facility] Mynaxedwvn1842 [address] [place], [place], [address] Absolute Lymph 1.42 {X10_3/ul} (Normal) Range: 0.83-4.51 [...] Range: 4.4-11.0 :07 Comprehensive Metabolic Profil Comments: [facility] Obryawascw[address] [place], [place], [address] GAP 8 (Normal) Range: 5-15 CO2 27.0 [...] (Normal) Range: 70-110 :07 Hemoglobin A1c Comments: [facility] Phgceirqal4644 [address]. [place], [place], [address] HGB A1C 5.6 % (Normal) Range: 4.2-6.3 :07 PAULA + Protein Elect, Serum Comments: Is Patient Fasting? [facility] (refer to report for specific site)refer to report for address and phone number NOTE: Comment (Normal) Comments: Protein electrophoresis scan will follow via computer,mail, or iron miner delivery.Performed at: [address] [id number] Director: Hugo Britt PhD, Phone: [phone] PAULA RESULT,S Comment (Normal) Comments: No monoclonality detected. A/G RATIO 1.2 (Normal) Range: 0.7-1.7 GLOBULIN, TOTAL 3.0 g/dL (Normal) Range: 2.2-3.9 M-SPIKE g/dL (Normal) Comments: Not Observed GAMMA GLOBULIN 0.7 g/dL (Normal) Range: 0.4-1.8 BETA GLOBULIN 1.1 g/dL (Normal) Range: 0.7-1.3 BMDBA-3-JSUO 0.8 g/dL (Normal) Range: 0.4-1.0 PFJDM-7-RLDR 0.3 g/dL (Normal) Range: 0.0-0.4 ALBUMIN 3.3 g/dL (Normal) Range: 2.9-4.4 IMMUNOGL M 53 mg/dL (Normal) Range: 20-172 IMMUNO A 177 mg/dL (Normal) Range: 61-437 IMMUNO G 761 mg/dL (Normal) Range: 700-1600 PROTEIN,TOTAL 6.3 g/dL (Normal) Range: 6.0-8.5 64-Chb-122223:07 Lipid Profile Comments: [facility] Eiatqxuwps[address] [place], [place], [address] VLDL 21 mg/dL (Normal) Range: 5-40 LDL [...] High Risk :01 CBC W/Diff, Automated Comments: [facility] Useduglfew4922 [address]. [place], [place], [address] Absolute Lymph 1.62 {X10_3/ul} (Normal) Range: 0.83-4.51 [...] 4.6-6.2 WBC 7.6 K/mm3 (Normal) Range: 4.4-11.0 77-Din-950836:01 Comprehensive Metabolic Profil Comments: [facility] Pxineiemss4100 [address] [place], [place], [address] ; has apt today GAP 7 (Normal) [...] 7-18 GLU 96 mg/dL (Normal) Range: 70-110 03-Eaw-967093:01 Lipid Profile Comments: [facility] Uxbrzjbjts9813 [place], [address] VLDL 11 mg/dL (Normal) Range: 5-40 LDL [...] 200-240 mg/dL Borderline >240 mg/dL High Risk 62-Kgx-456436:01 Lipoprotein A 369 nmol/L (Abnormal) Comments: [facility] [...] genetic factors on Lp(a) across ethnicities.Performed at: [facility] [address] [id number] Director: Hugo Britt PhD, Phone: [phone] 04-Pwx-035023:56 HgA1C , Office (03865) HgA1C , Office 5.6 % (Normal) Range: 4.6 - 7.1 1-Ddk-156147:19 ANCA Panel Comments: PATIENT NOT FASTINGPERFORMED BY: LabFrontbackJust[place] [address] [facility] [id number] BY: [address] [id number] Atypical pANCA <1:20 {titer} Comments: The atypical [...] follow up testing ofpositive sera with both TN-3 and MPO-ANCA enzyme immunoassays. Asmany as 5% serum samp les are positive only by EIA.Ref. AM J Clin Pathol 1999;111:507-513. Cytoplasmic (C-ANCA) <1:20 {titer} (Normal) Antiproteinase 3 (TN-3) Abs <3.5 U/mL (Normal) Range: 0.0-3.5 Antimyeloperoxidase (MPO) Abs <9.0 U/mL (Normal) Range: 0.0-9.0 :19 Antinuclear Antibodies Comments: PATIENT NOT FASTINGPERFORMED BY: [address] [id number] BY: [facility] KineticsCox MonettQdeqti5474 [facility] [id number] Direct JOHN Direct Negative (Normal) :1 C-Reactive Protein, 2.1 mg/L (Normal) Comments: PATIENT NOT FASTINGPERFORMED BY: [address] [id number] BY: [facility]ineticsH[facility]6370 [facility] [id number] Quant Range: 0.0-4.9 :19 Rheumatoid Arthritis Comments: PATIENT NOT FASTINGPERFORMED BY: [address] [id number] BY: [facility]ineticsH[facility]6370 [facility] [id number] Factor RA Latex Turbid. 7.8 {IU/mL} Range: 0.0-13.9 (Normal) Sedimentation 8 mm/h (Normal) Comments: PATIENT NOT FASTINGPERFORMED BY: [address] [id number] BY: [facility]6370 [facility] [id number] :19 Rate-Westergren Range: 0-30 Thyroid Peroxidase (TPO) 8 {IU/mL} (Normal) Comments: PATIENT NOT FASTINGPERFORMED BY: [address] [id number] BY: [facility]6370 [facility] [id number] :19 Ab Range: 0-34 :19 Thyroxine (T4) Free, Comments: PATIENT NOT FASTINGPERFORMED BY: [address] [id number] BY: [facility]6370 [facility] [id number] Direct, S T4,Free(Direct) 1.11 ng/dL Range: 0.82-1.77 (Normal) Triiodothyronine,Free,Seru 2.5 pg/mL (Normal) Comments: PATIENT NOT FASTINGPERFORMED BY: [address] [id number] BY: [facility]6370 [facility] [id number] 2:19 m Range: 2.0-4.4 TSH 3.450 {uIU/mL} Comments: PATIENT NOT FASTINGPERFORMED BY: [address] [id number] BY: [facility]6370 [facility] [id number] 2:19 (Normal) Range: 0.450-4.500 9-Wev-752988:30 Pathology Report Comments: PERFORMED BY: [facility] Cyto Wssmy53953 [facility] [id number] Information: [id number] See MATER Comments: Material submitted: .FOREHEAD SHAVE [...] IN CASSETTE(S) A./CORCOR/CORPa thologist provided ICD-10:D48.5, L90.9CPT .829444 :22 TESTOSTERONE FREE (95995) Comments: PATIENT WAS FASTINGPERFORMED BY: [facility]Nov[facility] [id number] BY: [address] [id number] Free Testosterone(Direct) 2.5 pg/mL (Abnormal) Range: 6.6-18.1 62-Akc-89988:22 VITAMIN B-12 (CYANOCOBALAMIN) Comments: PATIENT WAS FASTINGPERFORMED BY: [employer]70 FriendsEATNovant [facility] Hospital [id number] BY: [address] [id number] ([address]) Vitamin B12 638 pg/mL (Normal) Range: 211-946 :22 CBC W/AUTO DIFF WBC Comments: PATIENT WAS FASTINGPERFORMED BY: [employer] Bio PharmaceuticalSaint Francis Medical CenterMrplac7497 [facility] [id number] BY: [address] [id number] Inf ormation: NURSE DRAW (62208) Immature Grans (Abs) 0.0 {x10E3/uL} (Normal) Range: [...] METABOLIC PANEL, Comments: PATIENT WAS FASTINGPERFORMED BY: gogamingo Ptfctq7061 [facility] [id number] BY: [address] [id number] COMPREHENSIVE (39375) ALT (SGPT) 12 [iU]/L (Normal) Range: 0-44 [...] Range: 65-99 :52 CBC W/Diff, Automated Comments: [facility] Glukrkdhbp1909 [place], [address] Absolute Lymph 1.73 {X10_3/ul} (Normal) [...] 4.6-6.2 WBC 6.0 K/mm3 (Normal) Range: 4.4-11.0 38-Oga-43740:52 Comprehensive Metabolic Profil Comments: [facility] Zzouarmvwt9571 [place], [address] GAP 6 (Normal) Range: 5-15 CO2 26.0 [...] (Normal) Range: 70-110 :52 Hemoglobin A1c Comments: [facility] Sbtafyqwvu99[address] [place], [place], [address] HGB A1C 5.6 % (Normal) Range: 4.2-6.3 :52 Lipid Profile Comments: [facility] Rrtbqpejrp8245 [address] [place], [place], [address] VLDL 21 mg/dL (Normal) Range: 5-40 LDL [...] High Risk :52 Microalb:Creat Ratio,Random UR Comments: [facility] [address] [place], [place], [address] MALB:CREAT 9.1 {mg/g_CRE} (Normal) MICROALBUMIN,UR 9.0 mg/L (Normal) UR CREAT 99.50 mg/dL (Normal) :52 PSA,Total - Annual Screen Comments: [facility] Kdynbwweoh[address] [place], [place], [address] PSA,TOT SCREEN 0.51 ng/mL (Normal) Range: 0.00-4.00 Comments: This test was performed using the TPSA assay method for [employer] chemistry system. Values obtained with differentassay methods cannot be used interchangably.When changing PSA assays in the course of monitoring apatient, additional sequential testing should be carriedout to confirm baseline values. COLON BIOPSY (CHOOSE See Note (Normal) Comments: [facility] [address] [place], [place], [address] :45 SITE) Comments: Patient: YUMIKO LANDRUM : 1950 (64/M) Acct Num: [id number] Phys: AraHugo Unit Num: [id number] Loc: LABSPEC Specimen: [id number] Received: 09/11/151646 Spec Type: C OLON BX [...] in one cassette. / IRON:momo 09/11 TC:1 CPT:10833 x2 HEADER OPERATION: Colonoscopy with biopsy PRE-OP DIAGNOSIS: Screening/polyp TISSUE SUBMITTED: A - Polyp cecum, R/O adenoma, B - Polyp sigmoid, R/O adenoma MICROSCOP IC DESCRIPTION Slides are reviewed. MICROSCOPIC DIAGNOSIS A. Polyp cecum, biopsy: Fragments of tubular adenoma. B. Polyp sigmoid, biopsy: Fragments of tubular adenoma. SJ:momo 09/15/15 Signed Pamella Son 09/15/15 <signature on file> :37 CBC W/Diff, Automated Comments: [facility] Lkftwbscrt3112 Andrea BaileybrandonShelby [place], [place], [address] ; noon-emergent till apt Absolute Lymph 1.39 [...] 4.6-6.2 WBC 6.5 K/mm3 (Normal) Range: 4.4-11.0 44-Grp-674127:37 Comprehensive Metabolic Profil Comments: [facility] Wnzmrmvbxe[address]. [place], [place], [id number] GAP 6 (Normal) Range: 5-15 CO2 27.0 [...] <126 mg/dLsuggests IMPAIRED HOMEOSTASIS per A.D.A. criteria. 76-Ace-872680:37 Hemoglobin A1c Comments: [facility] Ppbfwfezxc09[address]. [place], [place], [id number] HGB A1C 5.6 % (Normal) Range: 4.2-6.3 13-Nyt-664158:37 Lipid Profile Comments: [facility] Xwaprjqjgx8021 [place], [address] VLDL 17 mg/dL (Normal) Range: 5-40 LDL [...] 200-240 mg/dL Borderline >240 mg/dL High Risk 8-Apk-699954:12 Factor II, DNA Analysis Comments: [facility] (refer to report for specific site)refer to report for address and phone number COMMENT Comment (Normal) Comments: Genetic Counselors are available for health care providersto discuss results at [phone] ([phone]).Methodology:DNA analysis of the Factor II gene was performed by PCRamplification followed by restric tion analysis. Thediagnostic sensitivity is >99% for both. All the tests mustbe combined with clinical information for the most accurateinterpretation. Molecular-based testing is highly accurate,but as in any laboratory test, diagnostic errors may occur.Poort SR, et al. Blood. 1996; 88:4365-3750.Diallo EA. Circulation. 2004; 110:e15-e18.Bobby I, et al. Arterioscler Thromb Vasc Biol. 1999;19:700 -703.Chente Lowe PhDSuzette M Huguenin, PhDAnnette Taylor, PhDAlecia Willis, Matilde Benjamin, PhDPerformed at: [facility] [id number] [place], [place] [id number] villa: Vilma Butterfield MD, Phone: [phone] FACTOR II,DNA Comment (Normal) Comments: NEGATIVENo mutation identified.Comment:A point mutation ([id number]) in the factor II (prothrombin)gene is the [...] individual mutations. This assaydetects only the prothrombin [id number] mutation and doesnot measure genetic abnormalities elsewhere i n thegenome. Other thrombotic risk factors may be pursuedthrough systematic clinical laboratory analysis. Thesefactors include the R506Q (Leiden) mutation in the Factor Vgene, plasma homocysteine levels , as well as testing fordeficiencies of antithrombin III, protein C and protein S. 94-Yct-28348:42 Miscellaneous Comments: Comments: [id number],PLASMA,BLUETest(s) Ordered: [id number],PLASMA,[facility] Umtjxvakqr47[address] [place], [address] Lab Procedure MISC Comments: TEST RESULT UNITS [...] 0.0-20.0 - Time (Normal) Comments: Performed at: [facility] [address]Co[address] [id number] Director: Joseph Velez MD, Phone: [phone] F e b - 2 0 1 6 9 : 4 2 91-Tka-30371:34 CBC W/Diff, Automated Comments: [facility] Efeakybzjs6027 [address] [place], [place], [id number] Absolute Lymph 1.34 {X10_3/ul} (Normal) Range: 0.83-4.51 [...] (Normal) Range: 4.4-11.0 :34 Comprehensive Comments: Comments: [id number],SPENCER,[facility] Wlxbankbwh8922 [place], [address] ; apt today Metabolic Profil GAP 8 [...] for health careproviders to discuss results at [phone] ([phone]).Methodology:DNA analysis of the Factor V gene was [...] Beal, PhDBette lugo, PhDKelly Benjamin, PhDPerformed at: [address] [id number] Director: Joseph Velez MD, Phone: [phone] at: [facility] [id number] [place], [place] [id number] Director: Vilma Butterfield MD, Phone: [phone] FACTOR V LEIDEN Comment (Normal) Comments: Result: [...] in the workup for venous thrombosis include [id number] mutation in the factor II (prothrombin) gene,protein S and C deficiency, and antithrombin deficiencies.Anticardiolipin antibody and lupus anticoagu lant analysismay be appropriate for certain patients, as well ashomocysteine levels.Contact your local [facility] for information on how to orderadditional testing if desired. 27-Jth-72500:34 Hemoglobin A1c Comments: [facility] Xgwznjkfwz3354 [address]. [place], [place], [id number] HGB A1C 5.6 % (Normal) Range: 4.2-6.3 :34 Lipid Profile Comments: Comments: [id number] [facility]als [facility] Zbltdqatea1535 [place], [address] VLDL 17 mg/dL (Normal) Range: [...] High Risk :34 Miscellaneous Lab Comments: Comments: [id number],[facility](s) Ordered: [id number] Health [facility] Hospital Yiognipefg9282 [address] [place], [place], [address] Procedure MISC Comments: TEST RESULT UNITS REFERENCE [...] anticoagulant is not de tected. aCL and N5AM3xrwqwrhmhw are normal.ANTIPHOSPHOLIPID SYNDROME ASSESSMENT SUMMARY-No evidence of a lupus anticoagulant, B2GP1 or aCLantibodies. As antibody titers may fluctuate with time,repeat te sting may be indicated if antiphospholipid syndromeis suspected.ANTIPHOSPHOLIPID SYNDROME ASSESSMENT DEFINITIONS-aCL- anticardiolipin (antibodies to cardiolipin); J5WU0-myrdtmrnbd to Beta-2 Glycoprotein 1; LA- lupus anticoagulant(which is identified with the dRVVT and/or hexagonalphospholipid neutralization assays); aPL- antibodies toprotein/phospholipid complexes such as LA, aCL, and N7BM8fbadotzysf; APS- antiphospholipid syndrome; DTI-directthrombin inhibitors.-REVOLVING INVENTORY CLERK:For questions regarding panel interpretation, please contactHalle Arrington [...] V et al. J Thromb Haemost. 2009; 7(10):6043-9103.(2) Tyrone S et al. J Thromb H aemost. 2006;4(2):295-306.(3) Keith DA et al. Blood. 2007;110(9): 7096-1414. TESTING [facility]FORMED AT [facility]. ORIGINAL REPORT ON FILE IN [...] Range: 58-150 :54 CBC W/Diff, Automated Comments: [facility] Axtizoweyn1050 [place], [address] Absolute Lymph 1.61 {X10_3/ul} (Normal) [...] 4.6-6.2 WBC 7.1 K/mm3 (Normal) Range: 4.4-11.0 91-Wjd-320662:54 Comprehensive Metabolic Profil Comments: [facility] Uvmbluvbjy0494 [facility] [place], [address] GAP 7 (Normal) Range: 5-15 [...] 7-18 GLU 98 mg/dL (Normal) Range: 70-110 76-Bur-304171:54 Lipid Profile Comments: [facility] Kfymddxoyf8031 [place], [address] ; apt today VLDL 19 [...] :55 Comprehensive Metabolic Profil Comments: Test performed at:[facility] Ehcdphhelx8545 [place] [address] GAP 7 (Normal) Range: 5-15 [...] Comments: Please note revised CREATININE reference range lbsxaqdkq67/22/2015. BUN 15 mg/dL (Normal) Range: 7-18 GLU 103 mg/dL (Normal) Range: 70-110 :55 Hemoglobin A1c Comments: Test performed at:[facility] N[address] [place] [address] HGB A1C 6.0 % (Normal) Range: 4.2-6.3 :55 Lipid Profile Comments: Test performed at:[facility] Jsdpbyisc[address] [place] [id number] VLDL 17 mg/dL (Normal) Range: 5-40 LDL [...] 200-240 mg/dL Borderline >240 mg/dL High Risk 84-Mfx-288484:49 Anti-dsDNA Ab Comments: ADDED PER VERBAL ORDER - FAXED ORDER TO FOLLOWSpecimen Comment: A duplicate report has been generated due to demographicSpecimen Comment: updates.Test performed at:[facility] Laboratory1 [address] [facility] [place] [address] dsDNA AB 12 {IU/mL} (Abnormal) Range: 0-9 Comments: Negative <5 Equivocal 5 - 9 Positive >9; ADDENDA: non-emergent because has apt today to discuss. 28-Nmc-994505:49 ANTINUCLEAR ANTIBODIES DIRECT Comments: Test performed at:[facility] Xxcplzupyg4198 [facility] [place] [address] JOHN-DIRECT Positive (Abnormal) Comments: Performed at: [facility] LabCoDaniel [place] [id number] Director: Reno Yanes PhD, Phone: [phone] 74-Gxw-121311:49 CBC W/Diff, Automated Comments: Test performed at:[facility] Qtyhcpachr7144 [facility] [place] [address] Absolute Lymph 1.22 {X10_3/ul} (Normal) [...] 4.6-6.2 WBC 4.9 K/mm3 (Normal) Range: 4.4-11.0 53-Nle-074984:49 Comprehensive Metabolic Profil Comments: Test performed at:[facility] Yendybxefy5341 [place] [address] GAP 6 (Normal) Range: 5-15 [...] 7-18 GLU 104 mg/dL (Normal) Range: 70-110 11-Puv-251801:49 CRP Comments: Test performed at:[facility] Obvs[address] [place] [address] C-REACTIVE PROT < 2.90 mg/L (Normal) Range: 0.0-3.0 Comments: C-Reactive Protein (CRP) provides useful information for thediagnosis, therapy and monitoring of inflammatory processesand associated diseases. For the evaluation of Relative Riskfor Cardiovascular Dise ase, a High Sensitivity CRP (HSCRP)should be ordered. :49 Culture, Urine Comments: Test performed at:[facility] S[address] [place] [address] CUUR See Note (Normal) Comments: Urine CultureCulture exhibits no growth.; ADDENDA: Pt has apt today, will discuss then 82-Our-186401:49 Erythrocyte Sed Rate Comments: Test performed at:[facility] [address] [place] [address] SED RATE 21 mm/h (Abnormal) Range: 0-20 46-Vid-404356:49 Hemoglobin A1c Comments: Test performed at:[address] [address] HGB A1C 5.8 % (Normal) Range: 4.2-6.3 12-Nfp-604929:49 Lipid Profile Comments: Test performed at:[address] [address] VLDL 8 mg/dL (Normal) Range: 5-40 LDL [...] :49 Microalb:Creat Ratio,Random UR Comments: Test performed at:[facility] Oletvzoxsb7472 [place] [address] MALB:CREAT 12.2 {mg/g_CRE} (Normal) MICROALBUMIN,UR 17.2 mg/L (Normal) UR CREAT 140.0 mg/dL (Normal) 67-Unl-015854:49 PSA,Total - Annual Screen Comments: Test performed at:[facility] [address] [place] [address] PSA,TOT SCREEN 0.47 ng/mL (Normal) Range: 0.00-4.00 Comments: This test was performed using the TPSA assay method for [employer] chemistry system. Values obtained with differentassay methods cannot be used interchangably.When changing PSA assays in the course of monitoring apatient, additional sequential testing should be carriedout to confirm baseline values. :49 Thyroid Stim Hormone (TSH) Comments: Test performed at:[facility] [address] [place] [address] TSH 1.60 {uIU/mL} (Normal) Range: 0.358-3.74 62-Rgq-801744:49 Urinalysis, Complete Comments: How was Urine Obtained? Urine, RandomTest performed at:[facility] [address] [place] [address] MUCUS, URINE 2+ {/hpf} (Normal) [...] (Normal) CLARITY Clear (Normal) COLOR Yellow (Normal) 18-Dlp-652179:49 Urinalysis, Complete Comments: How was Urine Obtained? Urine, RandomTest performed at:[facility] [address]xxl[address] [place] [address] MUCUS, URINE 0 SEEN {/hpf} [...] (Normal) CLARITY Clear (Normal) COLOR Yellow (Normal) 19-Aay-668046:07 Comprehensive Metabolic Profil Comments: Test performed at:[facility] Zrpxivhcry8404 [facility]. [place], [place] [address] GAP 6 (Normal) Range: 5-15 CO2 28.0 [...] 7-18 GLU 108 mg/dL (Normal) Range: 70-110 74-Dnw-297261:07 CPK Total, Creatine Kinase Comments: Test performed at:[facility] T[address]rounjh[address] [place] [address] CPK TOTAL 91 U/L (Normal) Range: 39-308 71-Sno-737473:56 Rapid Flu (72784 x 2) Influenza A Ag negative (Normal) 6-Cvi-827379:28 URINE WARREN CULTURE-MASSIEL COL Comments: PATIENT NOT FASTINGPERFORMED BY: [facility] Tndode7001 [facility] [id number] Information: SRC:UR Q98412 COUNT (45273) Result 1 ECV (Abnormal) Comments: Escherichia coli, [...] R Urine Final report Culture,Comprehensi (Abnormal) ve 0-Gkl-038451:58 Urinalysis, Office (22630) UA - LEUKOCYTE ESTERASE Small (Normal) UA - NITRITE Negative (Normal) URINE UROBILINGN MASSIEL TIMED 2 mg/dL (Normal) UA - PROTEIN 30 mg/dL (Normal) UA - PH 6.0 (Normal) Comments: 5.5 UA - BLOOD Hemolyzed Small (Normal) UA - SPECIFIC GRAVITY 1.030 (Abnormal) UA - KETONES Negative mg/dL (Normal) UA - BILIRUBIN Small (Normal) UA - GLUCOSE Negative (Normal) 9-Tdb-222319:41 URINE WARREN CULTURE-MASSIEL COL Comments: PATIENT NOT FASTINGPERFORMED BY: [employer] [facility] Rqmaim2520 [facility] [id number] Information: SRC: URINE COUNT (86276) Result 1 ECV (Abnormal) Comments: Escherichia coli, [...] R Urine Final report Culture,Comprehensi (Abnormal) ve 1-Ieu-020686:27 Urinalysis, Office (56283) UA - LEUKOCYTE ESTERASE Trace (Normal) UA - NITRITE Negative (Normal) URINE UROBILINGN MASSIEL TIMED 2 mg/dL (Normal) UA - PROTEIN Negative mg/dL (Normal) UA - PH 6.0 (Normal) UA - BLOOD Negative (Normal) UA - SPECIFIC GRAVITY 1.010 (Normal) UA - KETONES Negative mg/dL (Normal) UA - BILIRUBIN Negative (Normal) UA - GLUCOSE Negative (Normal) 3-Dby-103005:30 HgA1C , Office (74155) HgA1C , Office 5.7 % (Normal) Range: 4.6 - 7.1 9-Ywk-100876:10 URINE WARREN CULTURE-MASSIEL COL Comments: PATIENT NOT FASTINGPERFORMED BY: [facility] Bnrdfc6039 [address] [place] [id number] Information: SRC:UR S40200 COUNT (28104) Result 1 NG36 (Normal) Comments: No growth [...] CHOL 155 mg/dL (Normal) Comments: <200 mg/dL Hwxiiznib396-512 mg/dL Borderline>240 mg/dL High Risk TRIG 121 [...] (Normal) UCLAR Clear (Normal) UCOL Yellow (Normal) 28-Jhc-232401:20 CUUR URC See Note (Normal) Comments: ESBL+ [...] >=320 R (NF) indicates non-formulary drug at [facility]. Approval by Infectious DiseaseSpecialist required before non-formulary drugs may beordered and/or dispensed. 74-Fds-081568:20 UA Comments: How was Urine Obtained? CLEAN CATCH ANGE 500 /ul (Abnormal) MICA Negative (Normal) UOB 25 /ul (Abnormal) LEESA 6.0 (Normal) Range: 5.0 - 8.0 uPROTU 30 mg/dL (Abnormal) UROBU 1 mg/dL (Abnormal) KETU Negative mg/dL (Normal) SGU 1.015 (Normal) Range: 1.002-1.030 BILIU Negative mg/dL (Normal) GLUR Normal mg/dL (Normal) UCLAR Cloudy (Normal) UCOL Yellow (Normal) 21-Gck-559900:27 A1C 5.6 % (Normal) Range: 4.2-6.3 18-Ygu-383916:27 B12 574 pg/mL (Normal) Range: 211-911 93-Clt-857792:27 CBC MPV 8.8 fL (Normal) Range: 6.2-12.0 [...] 4.6-6.2 WBC 6.4 K/mm3 (Normal) Range: 4.4-11.0 93-Ucy-985312:27 CUUR URC Culture exhibits no growth. (Normal) 92-Win-747126:27 EBGM EBNA 81.6 U/mL (Abnormal) Range: 0.0-17.9 Comments: Negative <18.0Equivocal 18.0 - 21.9Positive >21.9 tEBINT Comment (Normal) Comments: EBV Interpretation ChartInterpretation EBV-IgM VCA-IgG EBNA-IgG EA(D)-IgGEBV Seronegative - - - -Early Phase + - - -Acute Primary + + - +or-InfectionConvalescence/Past - + + +or-InfectionReactivated +or- + + +Infection+ Antibody Present - Antibody Absen tPerformed at: - [facility] [address] [id number] Director: Melquiades Hector MD, Phone: [phone] EBEAG <9.0 U/mL (Normal) Range: 0.0-8.9 Comments: [...] <0.05 NEGATIVE0.06 - 0.59 AT RISK OF TN> OR = 0.60 SUGGEST TN :47 HgA1C , Office (36892) HgA1C , Office 6.3 % (Normal) Range: [...] CHOL 147 mg/dL (Normal) Comments: <200 mg/dL Zykanpzcd236-168 mg/dL Borderline>240 mg/dL High Risk :55 Rapid Flu (26911 x 2) Comments: neg Influenza A Ag negative (Normal) :02 FECAL OCCULT- Tubes sent home (75804) FECAL OCCULT HGB ASSAY, QUAL, 1-3 negative [...] (Normal) Range: 0-100 Comments: Performed at: - LabTaylor [place]ille [id number] Director: Melquiades Hector MD, Phone: [phone] IMM 55 mg/dL (Normal) Range: 40-230 DEBBY 182 mg/dL (Normal) Range: 91-414 IMG 788 mg/dL (Normal) Range: 700-1600 :39 LDH 190 U/L (Normal) Comments: Serial Specimen #1, #2 or #3? 1Is Patient Taking Vitamins or Folic Acid Supplements? N Range: 84-246 :39 PROEL Comments: Is Patient Fasting? Y j00ZFQYJE Comment (Normal) Comments: Protein electrophoresis scan will follow via computer,mail, or iron miner delivery. tPROELAG 1.6 (Normal) Range: 0.7-2.0 tPROELIN [...] 0.5-1.5 tRET-HE 36.8 pg (Abnormal) Range: 30-35 55-Tgm-661073:39 TIBC 394 ug/dL (Normal) Comments: Serial Specimen #1, #2 or #3? 1Is Patient Taking Vitamins or Folic Acid Supplements? N Range: 250-450 :56 CULTURE, SPUTUM (20100) Comments: PATIENT NOT FASTINGPERFORMED BY: [facility] CenterUdnpko8026 [facility] [id number] Information: SRC:[facility] [id number] Result 1 RRF (Normal) Comments: Routine respiratory ashkan Lower Respiratory Culture Final report (Normal) :32 HgA1C , Office (39197) HgA1C , Office 5.9 % (Normal) Range: 4.6 - 7.1 :32 Blood Glucose , Office (00010) Blood Glucose , Office 90 (Normal) :51 [...] 4.6-6.2 WBC 7.2 {k/mm3} (Normal) Range: 4.4-11.0 62-Sau-125408:51 CMP GAP 9 (Normal) Range: 5-15 CO2 [...] CHOL 149 mg/dL (Normal) Comments: <200 mg/dL Gjwiqamga649-553 mg/dL Borderline>240 mg/dL High Risk :51 PSA 0.51 ng/mL (Normal) Range: 0.00-4.00 Comments: This test was performed using the TPSA assay method for the[employer] chemistry system. Values obtained with differentassay methods cannot be used interchangably.When changing PSA assays in the course of monitoring apatient, additional sequential testing should be carriedout to confirm baseline values. :59 MISC (Normal) Comments: TEST RESULT LIMITSAntinuclear Antibodies, IFA NegativeNegative <1:80Borderline 1:80Positive >1:80 [facility] ORIGINAL REPORT ONFILE IN LAB [...] CHOL 154 mg/dL (Normal) Comments: <200 mg/dL Eekysmhfi138-733 mg/dL Borderline>240 mg/dL High Risk HDL 64 [...] tAFBSF See Note Comments: TESTING PERFORMED AT [facility]. [...] YEAST OR MOLD ISOLATED AFTER 4 WEEKS. 23-Otm-809275:11 CUSP RESPC See Note (Normal) Comments: No [...] YEAST OR MOLD ISOLATED AFTER 4 WEEKS. 03-Pxk-640572:21 AFBCS tAFBC See Note Comments: [facility]ING [facility]FOR[facility]. ORIGINAL REPORT ONFILE IN LAB CONTAINS ADDITIONAL TEST SITE INFORMATION. (Normal) CULTURE, ACID FAST FINAL CULTURE REPORT TO FOLLOW IN 6 WEEKS. Tirso See Note Comments: TESTING PERFORMED AT [facility]. ORIGINAL REPORT ONFILE IN LAB CONTAINS ADDITIONAL TEST SITE INFORMATION. (Normal) ACID FAST BACILLUS SMEARAcid Fast Smear from Concentrated Specimen :Negative 15-Jgx-719757:21 CUFST FUNST See Note Comments: TESTING PERFORMED AT [facility]. ORIGINAL REPORT ONFILE IN LAB CONTAINS ADDITIONAL TEST SITE INFORMATION. (Normal) FUNGUS STAIN YEAST OBSERVED CUF See Note Comments: TESTING PERFORMED AT [facility]. ORIGINAL REPORT ONFILE IN LAB CONTAINS ADDITIONAL TEST SITE INFORMATION. (Normal) CULTURE, FUNGUSNO YEAST OR MOLD ISOLATED AFTER 4 WEEKS. 16 AFBSTN SEE Comments: Specimen submitted to Anatomical Pathology Department [facility]. - PATHOLOGY ay REPORT -2 (Normal) 32 2: 00 16 AFBSTN SEE Comments: PATIENT BROUGHT SPECIMEN IN ON 07/11/12. - PATHOLOGY Comments: Specimen submitted to Anatomical Pathology Department [facility]. ay REPORT -2 (Normal) 30 :0 0 12 AFBSTN SEE Comments: PATIENT BROUGHT SPECIMEN IN ON 07/11/12 - PATHOLOGY Comments: Specimen submitted to Anatomical Pathology Department fortesting. ay REPORT -2 (Normal) 01 39 :0 0 23-Bgp-767768:05 WARREN CULTURE-OTHER (70393) Comments: PATIENT NOT FASTINGPERFORMED BY: BOB[facility] Jjriar9532 [facility] [facility] [place] [id number] Information: SRC: THROAT Result 1 RRF (Normal) Comments: Routine respiratory ashkan Upper Respiratory Culture Final report (Normal) 34-Rxf-431189:23 Rapid Strep Test, Office (20154) Rapid Strep Test, Office Negative (Normal) 5-Wvg-231118:15 CBCMD RBCM NORM C+C {NORMAL} (Normal) PE [...] 4.6-6.2 WBC 8.3 K/mm3 (Normal) Range: 4.4-11.0 3-Pgl-225181:15 CMP GAP 10 (Normal) Range: 5-15 CO2 [...] 7-18 GLU 81 mg/dL (Normal) Range: 70-110 5-Uyn-193905:15 LIPID VLDL 12 mg/dL (Normal) Range: 5-40 [...] Alvarado M.D.January 27, 2012 at 2:39:03 PM [id number] Signed GP/GP If you are the refe rring physician and would like to consult with theradiologist who provided this interpretation, please contact Itzel Linares at [phone]. If this radiologist is unavailable, youwill be dir ected to another radiologist to assist. If you are a patient with a question regarding this report, pleasecontactyour referring physician directly. Professional Interpretation Provided By: [employer], Phone , These documents contain legally protected [...] Schwarz D.O.January 26, 2012 at 8:55:02 PM [id number] Signed BE/B E If you are the referring physician and would like to consult with theradiologist who provided this interpretation, please contact Yogi Schwarz D.O. at [phone]. If this radiologist is unavailable, yo u will bedirected to another radiologist to assist. If you are a patient with a question regarding this report, pleasecontactyour referring physician directly. Professional Interpretation Provided By: [employer], Phone , These documents contain legally protected [...] on 01/26/122099 Sign by: Yogi Schwarz MD 09-Abd-576521:13 CUSP RESPC See Note (Normal) Comments: No [...] CHAINS AND CLUSTERS :56 HgA1C , Office (40148) HgA1C , Office 6.1 % (Normal) Range: 4.6 - 7.1 :56 Blood Glucose , Office (76351) Blood Glucose , Office 116 (Normal) : [...] :01 TSH 1.98 {uIU/mL} (Normal) Range: 0.358-3.74 70-Upm-215288:25 CMP GAP 7 (Normal) Range: 5-15 CO2 [...] performed using the TPSA assay method for the[facility] chemistry system. Values obtained with differentassay methods [...] UCOL YELLOW (Normal) :44 HgA1C , Office (56056) HgA1C , Office 6.3 % (Normal) Range: 4.6 - 7.1 :44 Blood Glucose , Office (81945) Blood Glucose , Office 114 (Normal) :13 HgA1C , Office (70986) HgA1C , Office 6.2 % (Normal) Range: 4.6 - 7.1 :13 Blood Glucose , Office (05019) Blood Glucose , Office 100 (Normal) :55 HgA1C , Office (52048) HgA1C , Office 5.8 % (Normal) Range: 4.6 - 7.1 :55 Blood Glucose , Office (22514) Blood Glucose , Office 85 (Normal) :51 WARREN CULTURE-OTHER (57124) Comments: PATIENT NOT FASTINGPERFORMED BY: [facility] Hjqzix4534 [facility] [id number] Information: SRC:THRT [id number] Result 1 Yeast isolated. (Normal) Comments: Heavy growthRequest for further identification must be madewithin 1 week. Upper Respiratory Culture Final report (Normal) :14 Rapid Strep Test, Office (52796) Rapid Strep Test, Office Negative (Normal) :24 [...] GRAM POSITIVE COCCI RARE GRAM POSITIVE RODS 3-Dec-42098:00 C-REACTIVE PROT 3.06 mg/L (Abnormal) Range: 0.0-3.0 [...] serialsampling is recomme nded. TESTING PERFORMED AT [facility]. ORIGINAL REPORT ON FILE IN LAB CONTAINS [...] cells for the productionof interferon gamma.Performed at: [address] [id number] Director: Joseph Velez MD, Phone: [phone] QFT AG - NIL 0 {IU/mL} (Normal) [...] 7-18 GLU 100 mg/dL (Normal) Range: 70-110 02-Sny-21467:03 COMPLETE UA MUCUS, URINE 2+ {/hpf} (Normal) [...] >240 mg/dL High Risk :03 VIT D,25 52229 38.0 ng/mL (Normal) Comments: appt 03-08-10 Range: 32.0-100.0 Comments: Effective January 11, 2011 Vitamin D, 25-Hydroxy reference intervals will be changing to 30-100. .Recent studies consider the lower li chilo of 32.0 ng/mL to be athreshold for optimal health.Mark LUDWIG. J Nutr. 2004;135(2):317-22.Performed at: [address] [id number] Director: Lakshmi Pino MD, Phone: [phone] VITAMIN B12 696 pg/mL (Normal) Range: 254-1320 Comments: There is a low frequency possibility that high titers ofintrinsic blocking antibodies may not be completely inactivated during the reaction pretreatment stepof this testing method. If test results are i n conflictwith the clinical diagnosis, patient should be testedfor the presence of intrinsic factor blocking antibodies. 61-Lvz-054362:05 Rapid Strep Test, Office (37443) Rapid Strep Test, Office Negative (Normal) 77-Pwj-64626:00 CULTURE, THROAT See Note (Normal) Comments: Normal throat ashkan isolated. No beta-hemolyticstreptococcus isolated. 46-Lsl-14304:00 CHEST WITHOUT CONTRAST Radiology Report See Note [...] 10/11/10 0244 Sign by: Clarke Butt MD 79-Sbu-912786:58 GALLBLADDER Radiology Report See Note (Normal) Comments: [...] 10/08/10 1402 Sign by: Jake Alvarado MD 60-Xqh-41584:00 CULTURE, URINE URINE CULTURE See Note {CFU/mL} (Normal) Comments: COLONY COUNT <1000 ORGANISM 1: MIXED GRAM POSITIVE ORGANISMS 78-Cai-531577:19 Urinalysis, Office (27159) UA - BILIRUBIN Negative (Normal) UA - BLOOD Non Hemolyzed Trace (Normal) UA - GLUCOSE Negative (Normal) UA - KETONES Negative mg/dL (Normal) UA - LEUKOCYTE ESTERASE Negative (Normal) UA - NITRITE Negative (Normal) UA - PH 7.0 (Normal) UA - PROTEIN Negative mg/dL (Normal) UA - SPECIFIC GRAVITY 1.010 (Normal) URINE UROBILINGN MASSIEL TIMED Normal mg/dL (Normal) 37-Ukb-36051:00 ABDOMEN/PELVIS WITHOUT CONT Radiology Report See Note [...] on 09/16/101715 Sign by: Cosmo Mahmood MD 98-Hig-583368:11 HgA1C , Office (96866) HgA1C , Office 6.2 % (Normal) Range: 4.6 - 7.1 49-Wkg-683327:11 Blood Glucose , Office (72694) Blood Glucose , Office 90 (Normal) :28 [...] mg/dL High Risk :53 HgA1C , Office (24724) HgA1C , Office 6.4 % (Normal) Range: 4.6 - 7.1 :53 Blood Glucose , Office (35740) Blood Glucose , Office 108 (Normal) :39 CULTURE, URINE URINE CULTURE Culture exhibits no growth. (Normal) :54 Urinalysis, Office (64880) UA - BILIRUBIN Negative (Normal) UA - BLOOD Negative (Normal) UA - GLUCOSE Negative (Normal) UA - KETONES Negative mg/dL (Normal) UA - LEUKOCYTE ESTERASE Negative (Normal) UA - NITRITE Negative (Normal) UA - PH 7.0 (Normal) UA - PROTEIN Negative mg/dL (Normal) UA - SPECIFIC GRAVITY 1.010 (Normal) URINE UROBILINGN MASSIEL TIMED Normal mg/dL (Normal) :37 HgA1C , Office (77283) HgA1C , Office 6.1 % (Normal) Range: 4.6 - 7.1 62-Nzz-013410:37 Blood Glucose , Office (82340) Blood Glucose , Office 96 (Normal) :46 [...] 4.6-6.2 WBC 7.5 K/mm3 (Normal) Range: 4.4-11.0 82-Xku-823227:46 COMP METABOLIC GAP 7 (Normal) Range: 5-15 [...] 7-18 GLU 105 mg/dL (Normal) Range: 70-110 11-Wpd-955217:46 LIPID VLDL 10 mg/dL (Normal) Range: 5-40 [...] 200-240 mg/dL Borderline >240 mg/dL High Risk 66-Abo-865326:46 MICROALB:CRE UR MALB:CREAT 4.8 {mg/g_CRE} (Normal) MICROALBUMIN,UR 8.1 mg/L (Normal) UR CREAT 166.2 mg/dL (Normal) 74-Zli-907271:46 PSA, SCREEN 0.5 ng/mL (Normal) Range: 0.0-4.0 :22 HgA1C , Office (96274) HgA1C , Office 6.1 % (Normal) Range: 4.6 - 7.1 :22 Blood Glucose , Office (06343) Blood Glucose , Office 123 (Normal) :47 HgA1C , Office (38456) HgA1C , Office 6.3 % (Normal) Range: 4.6 - 7.1 :47 Blood Glucose , Office (95970) Blood Glucose , Office 103 (Normal) :05 [...] CHOL 142 mg/dL (Normal) Comments: <200 mg/dL Ntdvmfcwk410-623 mg/dL Borderline>240 mg/dL High Risk TRIG 35 mg/dL (Normal) Comments: Serum Triglycerides Reference IntervalNormal <150 mg/dLBorderline high 150 - 199 mg/dLHigh 200 - 499 mg/ dLVery High > or = 500 mg/dL :24 HgA1C , Office (58766) HgA1C , Office 6.2 % (Normal) Range: 4.6 - 7.1 :23 Blood Glucose , Office (88776) Blood Glucose , Office 96 (Normal) 30-Thv-878664:07 GASTRIC EMPTYING STUDY Radiology Report See Note (Normal) Comments: Exam Number: [id number] GASTRIC EMPTYING STUDY A gastric emptying study was performed. The patient ingested 1 mCi iiUk78o Sulfur colloid with oatmeal. HISTORYThis is a 58-year-old male patie nt with hist ory of bloating andgastroesophageal reflux. FINDINGSAt 1 hour, there is complete emptying of the stomach of theradiopharmaceutical. This is a normal study. IMPRESSIONNormal examination. There is no e vidence of gastric retention. Reported By: WILFREDO ALVARADO 8-Erj-079411:33 HgA1C , Office (59398) HgA1C , Office 5.9 % (Normal) Range: 4.6 - 7.1 7-Exf-097259:33 Blood Glucose , Office (02422) Blood Glucose , Office 111 (Normal) 24-Dec-20086:08 [...] Range: 0.0-4.0 :46 Blood Glucose , Office (55781) Blood Glucose , Office 156 (Normal) :46 HgA1C , Office (74608) HgA1C , Office 5.8 % (Normal) Range: 4.6 - 7.1 :12 HgA1C , Office (66947) Comments: done km HgA1C , Office 5.8 % (Normal) Range: 4.6 - 7.1 :12 Blood Glucose , Office (00209) Comments: done Blood Glucose , Office 99 [...] mg/dL (Normal) Range: 200-370 Comments: Performed At: [facility] [id number] [place], [place] [id number] :44 Blood Glucose , Office (93529) Blood Glucose , Office 92 (Normal) :44 HgA1C , Office (66180) HgA1C , Office 5.7 % (Normal) Range: 4.6 - 7.1 :40 GLU GTT-2 HOUR 191 mg/dL (Abnormal) Comments: 2HR GTT GLU 2 HR GLU GTT-2 HOUR from 216:[id number]. Range: 70-120 :20 GLU GTT-1 HOUR 178 mg/dL (Abnormal) Comments: 2HR GTT GLU 1 HR GLU GTT-1 HOUR from 216:[id number]. Range: 120-170 :40 GLU GTT-30 min. 183 mg/dL (Abnormal) Comments: 2HR GTT GLU 1/2 HR GLU GTT-30 min. from 216:[id number]. Range: 110-170 :01 GLU GTT-FASTING 106 mg/dL (Normal) Comments: 2HR GTT FASTING GLU GTT-FASTING from 216:[id number]. Range: 70-110 Comments: GLUCOSE TOLERANCE TEST Reference [...] T PROT 7.0 g/dL (Normal) Range: 6.4-8.2 05-Rvb-973926:12 LIPID CHOL 154 mg/dL (Normal) Comments: <200 [...] mg/dL VLDL 15 mg/dL (Normal) Range: 5-40 72-Zcp-348858:12 PSA,TOT SCREEN 0.96 ng/mL (Normal) Range: 0.00-4.00 Comments: This test was performed using the TPSA method for theDiAutotask chemistry system.Values obtained with different assay methods cannot be usedinterchangably.When changing PSA assays in the course of monito ring apatient, additional sequential testing should be carriedout to confirm baseline values. 47-Axm-641814:12 ROUTINE UA BILIRUBIN URINE SeeNote (Normal) Comments: [...] 0.2 EU/dl (Normal) Range: 0.2 - 1.0 87-Zhp-161166:12 TSH 1.38 {uIU/mL} (Normal) Range: 0.34-4.82 43-Rbu-60282:03 CHEST WITH CONTRAST Radiology Report See Note (Normal) Comments: Exam Number: [id number] CHEST CT WITH INTRAVENOUS CONTRAST. REASON FOR [...] T PROT 6.3 g/dL (Abnormal) Range: 6.4-8.2 58-Gwq-609794:19 EBVIgG/M 252722 EB-EA IgG 01767 79 AU/mL (Normal) Range: 0-99 Comments: Negative <100 Equivocal 100 - 120 Positive >120 EB-NAg MgX62091 656 AU/mL (Abnormal) Range: 0-99 Comments: Negative <100 Equivocal 100 - 120 Positive >120 EB-VCA GlE92929 2296 AU/mL (Abnormal) Range: 0-99 Comments: Negative <100 Equivocal 100 - 120 Positive >120 EB-VCA RsO74453 9 AU/mL (Normal) Range: 0-99 Comments: Negative [...] + Antibody Present - Antibody AbsentPerformed At: [facility] [id number] [place], [place] [id number] 16-Ded-494224:00 CULTURE, THROAT See Note (Normal) Comments: Normal throat ashkan isolated. No beta-hemolyticstreptococcus isolated. 44-Oqt-011884:35 Rapid Strep Test, Office (79789) Rapid Strep Test, Office Negative (Normal) :40 [...] SJ:rin 11/09/06 TC:5 REPORT SIGNED: PAMELLA SON 11/10/0607-Nov-200602-Hig-419795:55 ALDOLASE 2030 2.3 U/L (Normal) Range: 1.2-7.6 Comments: Performed At: [address] [id number] At: [facility] [id number] 72-Jtk-330812:55 JOHN-D [id number] JOHN-DIRECT 9 U/mL (Normal) Range: 0-99 Comments: Negative <100 Equivocal 100 - 120 Positive >120 :55 C-REACTIVE PROT 0.52 mg/L (Normal) Range: 0.0-6.0 Comments: Test performed using the Dimension C-Reactive ProteinExtended Range assay method. This assay meets the AHA/CDC 2003 recommendations fordetermining patients at high risk for cardiovasculardisease. Reference: High risk CRP >3.0 mg/L 38-Kzp-413650:55 CBC HCT 42.8 % (Normal) Range: 40-54 [...] 4.9 {IU/mL} (Normal) Range: 0.0-13.9 :55 TESTOST [id number] TESTOSTER %FREE 2.87 % (Normal) Range: 1.50-4.20 [...] Report See Note (Normal) Comments: Exam Number: [id number] TESTICULAR ULTRASOUND HISTORYTesticular swelling. High resolution real [...] Reported By: MAYELIN DE LA FUENTE M.D. 5-Sfu-095718:45 HIP, MIN 2 VIEWS Radiology Report See Note (Normal) Comments: Exam Number: [id number] FIVE VIEW LUMBAR SPINE AP, LATERAL, BOTH [...] degenerative changes. Reported By: REMIGIO PURCELL M.D. 2-Kyr-899928:45 L/S SPINE,MIN 4 VIEWS Radiology Report See Note (Normal) Comments: Exam Number: [id number] FIVE VIEW LUMBAR SPINE AP, LATERAL, BOTH [...] degenerative changes. Reported By: REMIGIO PURCELL M.D. 9-Dxl-606293:44 HIP, MIN 2 VIEWS Radiology Report See Note (Normal) Comments: Exam Number: [id number] FIVE VIEW LUMBAR SPINE AP, LATERAL, BOTH [...] degenerative changes. Reported By: REMIGIO PURCELL M.D. 52-Qal-451896:43 CHEST, PA AND LATERAL Radiology Report See Note (Normal) Comments: Exam Number: [id number] PA AND LATERAL CHEST HISTORYShortness of breath. [...] 15, 2005. Reported By: EDVIN MARIE M.D. 63-Egt-788231:25 ALDOLASE 2030 3.0 U/L (Normal) Range: 1.2-7.6 Comments: Performed At: [facility] [place], [place] [id number] 70-Alj-379887:25 JOHN-D [id number] JOHN-DIRECT 46 U/mL (Normal) Range: 0-99 Comments: Negative <100 Equivocal 100 - 120 Positive >120 89-Mgj-416530:25 C-REACTIVE PROT 1.07 mg/L (Normal) Range: 0.0-6.0 [...] morphology Planned Observations CBC W/AUTO DIFF WBC (80376)Indication: Hypertension, benign On: :51 Request METABOLIC PANEL, COMPREHENSIVE (06197)Indication: Hypertension, benign On: :51 Request LIPID PANEL (16248)Indication: Other hyperlipidemia On: :50 Request CULTURE,FUNGUS W/STAIN 715286 (49546)Indication: Bronchiectasis On: :59 Request CULTURE, SPUTUM (03028)Indication: Moderate persistent asthma without complication On: :21 Request HGB A1C (79756)Indication: Abnormal glucose tolerance test On: : Request CBC with auto diff (18634)Indication: Abnormal glucose tolerance test On: :10 Request METABOLIC PANEL, COMPREHENSIVE (23229)Indication: Abnormal glucose tolerance test On: :10 Request LIPID PANEL (33540)Indication: Other hyperlipidemia On: :10 Request PSA (PROSTATE SPECIFIC ANTIGEN) (V76.44)Indication: Encounter for screening for malignant neoplasm of prostate (Renamed from Screening for prostate cancer) On: :09 Request METABOLIC PANEL, COMPREHENSIVE (55848)Indication: Essential hypertension On: 2-Nbu-031516:58 Request CBC with auto diff (04865)Indication: Hypertension, benign On: :53 Request METABOLIC PANEL, COMPREHENSIVE (63487)Indication: Abnormal glucose tolerance test On: :52 Request MICROALBUMIN: CREATININE RATIO (66630) AND (10144)Indication: Abnormal glucose tolerance test On: :52 Request HGB A1C (92624)Indication: Abnormal glucose tolerance test On: :52 Request LIPID PANEL (32821)Indication: Other hyperlipidemia On: :52 Request LIPID PANEL (93174)Indication: Other hyperlipidemia On: 5-Iyl-997060:30 Request CBC W/AUTO DIFF WBC (55902)Indication: Hypertension, benign On: :29 Request METABOLIC PANEL, COMPREHENSIVE (89014)Indication: Hypertension, benign On: :29 Request IMMUNOGLOBULIN G (IgG) (34426)Indication: Abnormal blood chemistry On: :02 Request Comments: PLEASE DRAW WITH OTHER LABS IN 2016 serum free light chains (60666)Indication: Abnormal blood chemistry On: 40 Request serum immunofixation (81879)Indication: Abnormal blood chemistry On: :40 Request PSA (PROSTATE SPECIFIC ANTIGEN) (V76.44)Indication: Encounter for screening for malignant neoplasm of prostate (Renamed from Screening for prostate cancer) On: 40 Request LIPID PANEL (88599)Indication: Other hyperlipidemia On: :40 Request CBC with auto diff (53549)Indication: Abnormal glucose tolerance test On: :39 Request METABOLIC PANEL, COMPREHENSIVE (02763)Indication: Abnormal glucose tolerance test On: :39 Request MICROALBUMIN: CREATININE RATIO (24060) AND (33167)Indication: Abnormal glucose tolerance test On: :39 Request HGB A1C (70423)Indication: Abnormal glucose tolerance test On: :39 Request LIPID PANEL (62532)Indication: Other hyperlipidemia On: 3-Aoa-634572:58 Request urine immunofixation (52266)Indication: Abnormal blood chemistry On: :34 Request serum immunofixation (24750)Indication: Abnormal blood chemistry On: 13-Itz-129818:34 Request MICROALBUMIN: CREATININE RATIO (38637) AND (51912)Indication: Abnormal glucose tolerance test On: 18-Tcl-372911:32 Request HGB A1C (74014)Indication: Abnormal glucose tolerance test On: :32 Request CBC W/AUTO DIFF WBC (73329)Indication: Hypertension, benign On: :30 Request METABOLIC PANEL, COMPREHENSIVE (34217)Indication: Hypertension, benign On: :30 Request LIPID PANEL (62432)Indication: Other hyperlipidemia On: :30 Request LIPOPROTEIN, BLD, BY NMR (01791)Indication: Other hyperlipidemia On: :14 Request CBC WITH MANUAL DIFF (16458)Indication: Essential hypertension On: :14 Request Metabolic Panel, Comprehensive (53214)Indication: Essential hypertension On: :14 Request CBC W/AUTO DIFF WBC (94679)Indication: Abnormal glucose tolerance test On: : Request LIPOPROTEIN, BLD, BY NMR (27368)Indication: Other hyperlipidemia On: :03 Request METABOLIC PANEL, COMPREHENSIVE (17241)Indication: Abnormal glucose tolerance test On: : Request Anti-TPO Antibody (94474)Indication: Abnormal blood chemistry On: :57 Request T4, FREE (THYROXINE) (95410)Indication: Abnormal blood chemistry On: :57 Request T3, FREE (TRIDOTHYRONINE) (00714)Indication: Abnormal blood chemistry On: :57 Request TSH (48456)Indication: Abnormal blood chemistry On: :56 Request P-ANCA & C-ANCA (ANCA PROFILE) 69820 x2 and 58690 s7Pmmbparqyq: Acute recurrent maxillary sinusitis On: :26 Request JOHN (ANTINUCLEAR ANTIBODY) (79064)Indication: Abnormal blood chemistry On: :56 Request RHEUMATOID FACTOR-QUANT (60818)Indication: Abnormal blood chemistry On: :56 Request SED RATE ERYTHROCYTE (91325)Indication: Abnormal blood chemistry On: :56 Request C-REACTIVE PROTEIN (90455)Indication: Abnormal blood chemistry On: :56 Request CBC with auto diff (37821)Indication: Hypertension, benign On: :10 Request MICROALBUMIN: CREATININE RATIO (39323) AND (79012)Indication: Abnormal glucose tolerance test On: : Request METABOLIC PANEL, COMPREHENSIVE (49666)Indication: Abnormal glucose tolerance test On: : Request HGB A1C (50554)Indication: Abnormal glucose tolerance test On: : Request METABOLIC PANEL, COMPREHENSIVE (34560)Indication: Hypertension, benign On: : Request LIPID PANEL (30468)Indication: Other hyperlipidemia On: : Request PSA (PROSTATE SPECIFIC ANTIGEN) (V76.44)Indication: Encounter for screening for malignant neoplasm of prostate (Renamed from Screening for prostate cancer) On: 51-Tuj-888039:59 Request Factor 2 (Prothrombin) Gene Mutation (23331)Indication: Other symptoms involving cardiovascular system On: 6-Yaz-756508:13 Request MICROALBUMIN: CREATININE RATIO (80205) AND (47205)Indication: Abnormal glucose tolerance test On: :53 Request HGB A1C (73915)Indication: Abnormal glucose tolerance test On: :53 Request LIPID PANEL (59553)Indication: Other hyperlipidemia On: :53 Request CBC W/AUTO DIFF WBC (79289)Indication: Hypertension, benign On: :53 Request METABOLIC PANEL, COMPREHENSIVE (73273)Indication: Hypertension, benign On: :53 Request CBC with auto diff (62648)Indication: Hypertension, benign On: : Request METABOLIC PANEL, COMPREHENSIVE (24825)Indication: Hypertension, benign On: 4-Kke-236900:25 Request LIPID PANEL (46670)Indication: Other hyperlipidemia On: :25 Request Factor V Leiden (33286)Indication: Deep vein thrombosis of lower extremity On: :24 Request CLOTTING FACTOR II (62590)Indication: Deep vein thrombosis of lower extremity On: :24 Request ANTITHROMBIN III ACTIVTY (55867)Indication: Deep vein thrombosis of lower extremity On: :24 Request Antiphospholipid atb (75498)Indication: Deep vein thrombosis of lower extremity On: :24 Request Protein C Profile (79156)Indication: Deep vein thrombosis of lower extremity On: :24 Request Protein S Profile (27328)Indication: Deep vein thrombosis of lower extremity On: :24 Request Hemoglobin Glyclated (HGB A1C) (54310)Indication: Abnormal glucose tolerance test On: :23 Request CBC W/AUTO DIFF WBC (65371)Indication: Abnormal glucose tolerance test On: :43 Request MICROALBUMIN: CREATININE RATIO (24290) AND (19362)Indication: Abnormal glucose tolerance test On: :43 Request METABOLIC PANEL, COMPREHENSIVE (81704)Indication: Abnormal glucose tolerance test On: :43 Request LIPID PANEL (62162)Indication: Other hyperlipidemia On: :43 Request DNA ANTIBODY-NATV/DBL ST (88032)Indication: Heart disease, unspecified On: : Request METABOLIC PANEL, COMPREHENSIVE (10153)Indication: Essential hypertension On: 05-Gkh-404093:31 Request LIPID PANEL (55289)Indication: Other hyperlipidemia On: 36-Tfg-119658:31 Request Hemoglobin Glyclated (HGB A1C) (15443)Indication: Abnormal glucose tolerance test On: 59-Kbm-989102:31 Request PSA (PROSTATE SPECIFIC ANTIGEN) (V76.44)Indication: Benign prostatic hyperplasia with lower urinary tract symptoms, unspecified morphology On: 95-Acv-450084:52 Request MICROALBUMIN: CREATININE RATIO (12322) AND (51691)Indication: Abnormal glucose tolerance test On: 31-Vmf-342919:50 Request Hemoglobin Glyclated (HGB A1C) (44744)Indication: Abnormal glucose tolerance test On: :50 Request URINE WARREN CULTURE (MASSIEL COL COUNT) (50700)Indication: Muscle weakness On: :48 Request URINALYSIS, W/ MICRO (61340)Indication: Muscle weakness On: :48 Request CBC with auto diff (48442)Indication: Muscle weakness On: :48 Request JOHN (ANTINUCLEAR ANTIBODY) (44724)Indication: Muscle weakness On: :48 Request SED RATE ERYTHROCYTE (70874)Indication: Muscle weakness On: :48 Request C-REACTIVE PROTEIN (55817)Indication: Muscle weakness On: :48 Request TSH (19686)Indication: Muscle weakness On: 54-Fjy-059428:48 Request LIPID PANEL (50712)Indication: Other hyperlipidemia On: 03-Odd-305158:47 Request METABOLIC PANEL, COMPREHENSIVE (53374)Indication: Other hyperlipidemia On: 38-Lny-771151:46 Request URINE WARREN CULTURE-MASSIEL COL COUNT (10290)Indication: Other abnormal finding of urine On: :42 Request LIPID PANEL (26886)Indication: Other hyperlipidemia On: :44 Request CBC W/AUTO DIFF WBC (21370)Indication: Essential hypertension On: :44 Request METABOLIC PANEL, COMPREHENSIVE (27029)Indication: Essential hypertension On: :44 Request URINE WARREN CULTURE-MASSIEL COL COUNT (23265)Indication: Other abnormal finding of urine On: 5-Jwa-920697:00 Request Comments: ADD ON MICROALBUMIN: CREATININE RATIO (89511) AND (72410)Indication: Essential hypertension On: : Request URINALYSIS, W/ MICRO (56823)Indication: Essential hypertension On: :02 Request METABOLIC PANEL, COMPREHENSIVE (43484)Indication: Essential hypertension On: 4-Lps-674276:02 Request LIPID PANEL (00740)Indication: Other hyperlipidemia On: : Request CBC WITH MANUAL DIFF (64205)Indication: Iron deficiency On: 5-Qvl-565056:02 Request URINE WARREN CULTURE (MASSIEL COL COUNT) (53134)Indication: Fatigue On: :46 Request MICROALBUMIN: CREATININE RATIO (91785) AND (64229)Indication: Abnormal glucose tolerance test On: :46 Request Hemoglobin Glyclated (HGB A1C) (46193)Indication: Abnormal glucose tolerance test On: :46 Request IRON BINDING CAPACITY (TIBC) (04515)Indication: Anemia, unspecified On: :42 Request FERRITIN (92362)Indication: Anemia, unspecified On: 02-Dys-629678:42 Request IRON (42489)Indication: Anemia, unspecified On: :42 Request VITAMIN B-12 (CYANOCOBALAMIN) (04677)Indication: Fatigue On: Request CBC (AUTO) (85908)Indication: Fatigue On: Request TSH (70224)Indication: Fatigue On: Request Vitamin D Hydroxy (49382)Indication: Fatigue On: Request EBV Panel (86713)Indication: Fatigue On: Request FERRITIN (32134)Indication: Anemia, unspecified On: Request IRON (86017)Indication: Anemia, unspecified On: Request MICROALBUMIN: CREATININE RATIO (11402) AND (76592)Indication: Abnormal glucose tolerance test On: Request METABOLIC PANEL, COMPREHENSIVE (66820)Indication: Abnormal glucose tolerance test On: Request LIPID PANEL (92893)Indication: Other hyperlipidemia On: Request CBC WITH MANUAL DIFF (70248)Indication: Anemia, unspecified On: Request FERRITIN (24786)Indication: Anemia, unspecified On: :15 Request IRON (71665)Indication: Anemia, unspecified On: Request LIPID PANEL (22290)Indication: Essential hypertension On: Request METABOLIC PANEL, COMPREHENSIVE (26730)Indication: Essential hypertension On: Request CBC WITH MANUAL DIFF (04405)Indication: Essential hypertension On: :14 Request UPEP (56778)Indication: BRONCHITIS, NOT SPECIFIED ACUTE OR CHRONIC (490.) On: Request Protein Electrophoresis, Serum (SPEP) (40491)Indication: BRONCHITIS, NOT SPECIFIED ACUTE OR CHRONIC (490.) On: Request IGA/IGD/IGG/IGM-EACH (57627)Indication: BRONCHITIS, NOT SPECIFIED ACUTE OR CHRONIC (490.) On: : Request URINALYSIS, W/ MICRO (97172)Indication: Anemia, unspecified On: Request CBC WITH MANUAL DIFF (40949)Indication: Anemia, unspecified On: Request FOLIC ACID SERUM (13614)Indication: Anemia, unspecified On: Request VITAMIN B-12 (CYANOCOBALAMIN) (04262)Indication: Anemia, unspecified On: Request RETICULOCYTE COUNT MANUL (11501)Indication: Anemia, unspecified On: Request LDH (LD) (LACTATE DEHYDROGENASE) (36863)Indication: Anemia, unspecified On: Request IRON BINDING CAPACITY (TIBC) (74154)Indication: Anemia, unspecified On: Request IRON (49234)Indication: Anemia, unspecified On: Request FERRITIN (96856)Indication: Anemia, unspecified On: Request PSA (PROSTATE SPECIFIC ANTIGEN) (V76.44)Indication: Screening for prostate cancer On: 36 Request LIPID PANEL (00369)Indication: Abnormal glucose tolerance test On: :35 Request CBC WITH MANUAL DIFF (47336)Indication: Hypertension, benign On: 35 Request METABOLIC PANEL, COMPREHENSIVE (58991)Indication: Hypertension, benign On: 35 Request SED RATE ERYTHROCYTE (78012)Indication: Rash On: :22 Request C-REACTIVE PROTEIN (42827)Indication: Rash On: Request RHEUMATOID FACTOR-QUANT (26251)Indication: Rash On: Request JOHN (ANTINUCLEAR ANTIBODY) (40589)Indication: Rash On: 09-Czv-873824:22 Request CULTURE, SPUTUM (38944)Indication: Cough On: 98-Ach-369049:20 Request HgA1C , Office (96802)Indication: Abnormal glucose tolerance test On: 93-Crb-339258:57 Request CULTURE, SPUTUM (51977)Indication: Cough On: 70-Yhw-550282:39 Request ACID FAST STAIN (AFB) (71879)Indication: Cough On: :38 Request TSH (79201)Indication: Other hyperlipidemia On: :21 Request URINALYSIS, W/ MICRO (32247)Indication: Essential hypertension On: :21 Request CBC WITH MANUAL DIFF (60092)Indication: Abnormal glucose tolerance test On: :21 Request METABOLIC PANEL, COMPREHENSIVE (29408)Indication: Abnormal glucose tolerance test On: :21 Request MICROALBUMIN: CREATININE RATIO (17534) AND (44637)Indication: Abnormal glucose tolerance test On: :21 Request LIPID PANEL (91905)Indication: Other hyperlipidemia On: :20 Request CBC WITH MANUAL DIFF (85930)Indication: Abnormal glucose tolerance test On: :26 Request METABOLIC PANEL, COMPREHENSIVE (42188)Indication: Abnormal glucose tolerance test On: :26 Request CULTURE, SPUTUM (79511)Indication: Cough On: 02-Rmj-434314:18 Request LIPID PANEL (54907)Indication: Other hyperlipidemia On: 40-Syr-159900:14 Request TSH (25945)Indication: Swelling of limb On: :58 Request METABOLIC PANEL, COMPREHENSIVE (05373)Indication: Swelling of limb On: :58 Request CBC WITH MANUAL DIFF (22722)Indication: Swelling of limb On: :58 Request BNTP (39210)Indication: Swelling of limb On: :58 Request CULTURE, SPUTUM (75509)Indication: Cough On: 54-Zfg-47936:56 Request PSA (PROSTATE SPECIFIC ANTIGEN) (V76.44)Indication: Screening for prostate cancer On: 78-Ldr-839486:19 Request URINALYSIS, W/ MICRO (73131)Indication: Abnormal glucose tolerance test On: 00-Jfz-615943:18 Request MICROALBUMIN: CREATININE RATIO (57189) AND (25955)Indication: Abnormal glucose tolerance test On: 98-Qgl-543273:18 Request METABOLIC PANEL, COMPREHENSIVE (52774)Indication: Essential hypertension On: 22-Dew-907395:18 Request LIPID PANEL (11303)Indication: Other hyperlipidemia On: 00-Suq-885616:18 Request PSA (PROSTATE SPECIFIC ANTIGEN) (V76.44)Indication: Screening for prostate cancer On: 00-Irb-014888:40 Request MICROALBUMIN: CREATININE RATIO (17987) AND (44543)Indication: Abnormal glucose tolerance test On: 62-Dxc-585675:40 Request METABOLIC PANEL, COMPREHENSIVE (91376)Indication: Abnormal glucose tolerance test On: :40 Request Urine Protein Electrophoresis (UPEP) (60580)Indication: recurrent uri On: :39 Request Serum Protein Electrophoresis (SPEP) (62870)Indication: recurrent uri On: 33-Psi-476695:39 Request IMMUNOGLOBULIN E (IgE) (79664)Indication: Asthma, intrinsic, with status asthmaticus On: :39 Request IGA/IGD/IGG/IGM-EACH (75721)Indication: Asthma, intrinsic, with status asthmaticus On: :39 Request LIPID PANEL ([id number])Indication: Other hyperlipidemia On: :38 Request ASPERGILLUS AG, EIA ([id number])Indication: Cough On: 29-Jer-253558:58 Request SED RATE ERYTHROCYTE ([id number])Indication: Cough On: 62-Jzn-505796:48 Request C-REACTIVE PROTEIN ([id number])Indication: Cough On: :48 Request CBC WITH MANUAL DIFF ([id number])Indication: Cough On: 09-Ukx-615049:47 Request Quantiferron gold test ([id number])Indication: Cough On: :45 Request CULTURE, SPUTUM ([id number])Indication: Cough On: 04-Hqj-532026:45 Request VITAMIN B-12 (CYANOCOBALAMIN) ([id number])Indication: Fatigue On: :20 Request Vitamin D Hydroxy ([id number])Indication: Fatigue On: :20 Request CBC WITH MANUAL DIFF ([id number])Indication: Abnormal glucose tolerance test On: :19 Request METABOLIC PANEL, COMPREHENSIVE ([id number])Indication: Abnormal glucose tolerance test On: :19 Request LIPID PANEL ([id number])Indication: Other hyperlipidemia On: :19 Request URINALYSIS, W/ MICRO ([id number])Indication: Abnormal glucose tolerance test On: :19 Request HEMOGLOBIN GLYCLATED (HGB A1C) ([id number])Indication: Abnormal glucose tolerance test On: :19 Request WARREN CULTURE-OTHER ([id number])Indication: Pharyngitis, acute On: 12-Puo-720574:05 Request URINE WARREN CULTURE-MASSIEL COL COUNT ([id number])Indication: Abdominal pain, acute, right lower quadrant On: :19 Request CBC WITH MANUAL DIFF ([id number])Indication: Abnormal glucose tolerance test On: :08 Request METABOLIC PANEL, COMPREHENSIVE ([id number])Indication: Abnormal glucose tolerance test On: :08 Request TSH ([id number])Indication: Fatigue On: :02 Request CBC WITH MANUAL DIFF ([id number])Indication: Abnormal glucose tolerance test On: :45 Request METABOLIC PANEL, COMPREHENSIVE ([id number])Indication: Hypertension, benign On: 54-Xnz-307381:45 Request LIPID PANEL ([id number])Indication: Other hyperlipidemia On: 93-Enk-495414:45 Request METABOLIC PANEL, COMPREHENSIVE ([id number])Indication: Essential hypertension On: 61-Mby-086034:16 Request LIPID PANEL ([id number])Indication: Other hyperlipidemia On: 34-Ofu-037571:15 Request URINE WARREN CULTURE-MASSIEL COL COUNT ([id number])Indication: Calcium kidney stone On: 96-Cbm-231497:54 Request PSA (PROSTATE SPECIFIC ANTIGEN) (V76.44)Indication: Enlarged prostate with lower urinary tract symptoms On: 84-Nba-335648:09 Request METABOLIC PANEL, COMPREHENSIVE ([id number])Indication: Abnormal glucose tolerance test On: :09 Request CBC WITH MANUAL DIFF ([id number])Indication: Abnormal glucose tolerance test On: 02-Ula-219388:09 Request LIPID PANEL ([id number])Indication: Other hyperlipidemia On: 68-Ish-850443:09 Request MICROALBUMIN: CREATININE RATIO ([id number]) AND ([id number])Indication: Abnormal glucose tolerance test On: 72-Bhk-772969:09 Request LIPID PANEL ([id number])Indication: Other hyperlipidemia On: : Request CBC WITH MANUAL DIFF ([id number])Indication: Abnormal glucose tolerance test On: : Request METABOLIC PANEL, COMPREHENSIVE ([id number])Indication: Abnormal glucose tolerance test On: 98-Sap-993316:30 Request MICROALBUMIN: CREATININE RATIO ([id number]) AND ([id number])Indication: Abnormal glucose tolerance test On: 16-Dee-478112:28 Request METABOLIC PANEL, COMPREHENSIVE ([id number])Indication: Abnormal glucose tolerance test On: 3-Pay-863813:07 Request LIPID PANEL ([id number])Indication: Other hyperlipidemia On: 2-Oxp-629354:07 Request PSA (PROSTATE SPECIFIC ANTIGEN) (V76.44)Indication: Enlarged prostate with lower urinary tract symptoms On: 4-Gok-990927:49 Request METABOLIC PANEL, COMPREHENSIVE ([id number])Indication: Essential hypertension On: :48 Request LIPID PANEL ([id number])Indication: Other hyperlipidemia On: :48 Request HEPATIC FUNCTION PANEL ([id number])Indication: Other hyperlipidemia On: 50-Jws-629416:21 Request LIPID PANEL ([id number])Indication: Other hyperlipidemia On: 90-Utv-503095:21 Request CBC WITH MANUAL DIFF ([id number])Indication: Abnormal glucose tolerance test On: 4-Rjy-759973:53 Request METABOLIC PANEL, COMPREHENSIVE ([id number])Indication: Abnormal glucose tolerance test On: 9-Tfn-364635:53 Request MICROALBUMIN: CREATININE RATIO ([id number]) AND ([id number])Indication: Abnormal glucose tolerance test On: 3-Kon-500716:53 Request HEPATIC FUNCTION PANEL ([id number])Indication: Other hyperlipidemia On: 7-Bpv-049420:53 Request LIPID PANEL ([id number])Indication: Other hyperlipidemia On: 3-Jzt-759455:53 Request GLUCOSE TOLERANCE TEST (GTT) 2 hour On: 4-Eyc-662880:36 Request ([id number]) TSH ([id number])Indication: Dizziness and giddiness On: 30-Hev-156513:15 Request LIPID PANEL ([id number])Indication: Other hyperlipidemia On: 74-Nvu-378409:15 Request CBC WITH MANUAL DIFF ([id number])Indication: Dizziness and giddiness On: 33-Rcq-630472:15 Request METABOLIC PANEL, COMPREHENSIVE ([id number])Indication: Dizziness and giddiness On: 89-Sxz-801174:15 Request HEPATIC FUNCTION PANEL ([id number])Indication: Other hyperlipidemia On: :39 Request LIPID PANEL ([id number])Indication: Other hyperlipidemia On: 03-Pco-474606:39 Request HEPATIC FUNCTION PANEL ([id number])Indication: Other hyperlipidemia On: :31 Request LIPID PANEL ([id number])Indication: Other hyperlipidemia On: :31 Request WARREN CULTURE-BLOOD ([id number])Indication: fever On: 3-Exi-058933:58 Request METABOLIC PANEL, COMPREHENSIVE ([id number])Indication: fever On: 6-Veb-657310:58 Request CBC WITH MANUAL DIFF ([id number])Indication: fever On: :58 Request WARREN CULTURE-OTHER ([id number])Indication: Pharyngitis, acute On: 74-Lsk-930068:35 Request PSA (Prostate Specific Antigen), Screening (62613)Indication: Other hyperlipidemia On: :32 Request LIPID PANEL ([id number])Indication: Other hyperlipidemia On: :31 Request URINALYSIS W/O MICRO ([id number])Indication: Hypertension, benign On: :31 Request TSH ([id number])Indication: Hypertension, benign On: :31 Request CBC WITH MANUAL DIFF ([id number])Indication: Hypertension, benign On: :31 Request METABOLIC PANEL, COMPREHENSIVE ([id number])Indication: Hypertension, benign On: :31 Request Creatine Kinase Total ([id number])Indication: Myalgia and myositis On: :24 Request SED RATE ERYTHROCYTE ([id number])Indication: Arthralgia On: :23 Request C-REACTIVE PROTEIN ([id number])Indication: Arthralgia On: :23 Request RHEUMATOID FACTOR-QUANT ([id number])Indication: Arthralgia On: :23 Request JOHN (ANTINUCLEAR ANTIBODY) ([id number])Indication: Arthralgia On: :23 Request Planned Encounters Medical; [facility] 3 Month FU - On: 21-Mar-2018 8:30 [facility] Fast DO, Adelaida A Fast DO, Adelaida A Planned Procedures PNEUM VAC ADLT/IMUMNOSPR, On: 06-Dec-2017 Intent SBC/INTRM ([id number])By: Flakito ACKERMAN, Comments: lot: [id number]: 920site/route: L del/IMamt: 0.5mLVIS signed when applicableEVER Monroya A Fast DO, Adelaida A Cartoid DopplerBy: Fast DO, Adelaida On: 06-Sep-2017 Intent A Fast DO, Adelaida A Radiology - Lumbar SpineBy: Fast On: 06-Jun-2017 Intent DO, Adelaida A Fast DO, Adelaida A ELECTROCARDIOGRAM, COMPLETE (ECG) On: 06-Jun-2017 Intent ([id number])By: Flakito ACKERMAN Adelaida A Flakito Comments: ekg showed normal sinus rhythym, normal axis, no acute st/t wave changes rbbb no change DO, Aedlaida A CT - Chest (Without Contrast)By: On: [...] XRAY, PA & LATERAL On: 18-Jan-2017 Intent ([id number])By: Yola Witt Aerosol Treatment ([id number])By: On: 18-Jan-2017 Intent Yola Witt Solu -Medrol Injection, 125 mg On: 18-Jan-2017 Intent ([id number])By: Yola Witt Comments: solumedrol 125mg injectionlot: [id number]: 12/2018L GMpt tolerated wellAD THEATER PROJECTIONIST ELECTROCARDIOGRAM, COMPLETE (ECG) On: 05-Jan-2016 Intent ([id number])By: Adelaida Fraga DO A Flakito Comments: ekg showed normal sinus rhythym, normal axis, no acute st/t wave changes irbb DO, Adelaida A Solu -Medrol Injection, 125 mg On: 09-May-2015 Intent ([id number])By: Samantha Grewal CNP Comments: lot: [id number]: ite/route:RGM/IMamt: 2mLVIS signed when applicableEVER Dumont Aerosol Treatment ([id number])By: On: 09-May-2015 Intent Slarb THEATER PROJECTIONIST, [facility] - Chest- PA and LatBy: [...] A Fast DO, Adelaida A Pulse Oximetry ([id number])By: Fast On: 26-Aug-2014 Intent DO, Adelaida A Fast DO, Adelaida A Comments: 94%- recheck 95 Aerosol Treatment ([id number])By: On: 10-Apr-2014 Intent SlaTracey soto LPN Eprescribed prescriptions On: 25-Jul-2013 Intent (G8553)By: Fast DO, Adelaida A Fast DO, Adelaida A Pulse Oximetry ([id number])By: Flakito On: 02-Jul-2013 Intent DO, Adelaida A Fast DO, Adelaida A Comments: 97% Aerosol Treatment ([id number])By: On: 25-Jun-2013 Intent Samantha Grewal CNP Eprescribed prescriptions On: 25-Jun-2013 Intent (G8553)By: Samantha Grewal CNP Eprescribed prescriptions On: 02-Apr-2013 Intent (G8553)By: Leigh Ann Polk Aerosol Treatment ([id number])By: On: 26-Mar-2013 Intent Samantha Grewal CNP Eprescribed prescriptions On: 26-Mar-2013 Intent (G8553)By: Eliana Carter Eprescribed prescriptions On: 25-Dec-2012 Intent (G8553)By: Leigh Ann Polk Aerosol Treatment ([id number])By: On: 06-Nov-2012 Intent Samantha Grewal CNP Eprescribed prescriptions On: 06-Nov-2012 Intent (G8553)By: Eliana Carter Ear Irrigation ([id number])By: Carmina On: 25-Sep-2012 Intent Samantha IRVIN Comments: Ear Irrigation performed on:bilateralAmount/color removed cerumen:large amount of dark brown wax removedOUtcome:clear, pt toleratedUsed wax curettes Wax CurettesBy: Samantha Grewal CNP On: 25-Sep-2012 Intent Eprescribed prescriptions On: 22-Sep-2012 Intent (G8553)By: Elizabet Green DO Eprescribed prescriptions On: 02-Aug-2012 Intent (G8553)By: Leigh Ann Polk Pulse Oximetry ([id number])By: Flakito On: 30-Jun-2012 Intent DO, Adelaida A Fast DO, Adelaida A Comments: 97% Eprescribed prescriptions On: 12-Jun-2012 Intent (G8553)By: Fast DO, Adelaida A Fast DO, Adelaida A Spirometry ([id number])By: Felicitas, On: 17-Jan-2012 Intent Leigh Ann Comments: good effort and curve mild restriction CT - Sinuses CompleteBy: Fast DO, On: 17-Jan-2012 Intent Adelaida A Fast DO, Adelaida A PNEUM VAC ADLT/IMUMNOSPR, On: 17-Jan-2012 Intent SBC/INTRM ([id number])By: Boris, Comments: Lot:[id number]:04-25-Dose:0.5mLRoute:IMSite:L armGiven By:CHELA Dumont IMMUNIZ ADMNIN, 1 VAC, SNGL/COMBO On: 17-Jan-2012 Intent ([id number])By: Julia Escalante CT - ChestBy: Fast DO, Adelaida A On: 17-Jan-2012 Intent Fast DO, Adelaida A Eprescribed prescriptions On: 17-Jan-2012 Intent (G8553)By: Leigh Ann Polk Eprescribed prescriptions On: 18-Oct-2011 Intent (G8553)By: Fast DO, Adelaida A Fast DO, Adelaida A EKG ([id number])By: Fast DO, Adelaida A On: 15-Oct-2011 Intent Fast DO, Adelaida A Comments: ekg- sinus with normal axis and nsivcd and no acute changes Eprescribed prescriptions On: 09-Aug-2011 Intent (G8553)By: Fast DO, Adelaida A Fast DO, Adelaida A PFT - CompleteBy: Fast DO, Adelaida On: 08-Mar-2011 Intent A Fast DO, Adelaida A Pulse Oximetry ([id number])By: Carmina On: 02-Feb-2011 Intent Samantha IRVIN Aerosol Treatment ([id number])By: On: 02-Feb-2011 Intent Carmina Samantha IRVIN Radiology - Chest- PA and LatBy: On: 18-Jan-2011 Intent Fast DO, Adelaida A Fast DO, Adelaida A Pulse Oximetry ([id number])By: On: 18-Jan-2011 Intent Leigh Ann Polk Comments: 93% TDAP VACCINE >7 IM ([id number])By: On: 07-Dec-2010 Intent Leigh Ann Polk Comments: Lot #:[id number] date:mount given:0.5mlRoute: IMSite given:left deltGiven by: DANIEL Zavaleta Eprescribed prescriptions On: 07-Dec-2010 Intent (G8553)By: Fast DO, Adelaida A Fast DO, Adelaida A FLU VAC, SPLIT, >3 YEARS, On: 07-Dec-2010 Intent INTRAMUSC ([id number])By: Felicitas, Comments: received at work Leigh Ann Toradol Injection, 30 mg On: 05-Nov-2010 Intent (J1885)By: Elizabet Green DO Comments: Lot:[id number]:apr 05Amt:30mg/mlRoute:IMSite:left hip Given By: ILDA Tran Ear Irrigation ([id number])By: Peter On: 05-Nov-2010 Elizabet Thomson DO Comments: Left ear irrigated, large amt of wax removed. pt tolerated well. Eprescribed prescriptions On: 05-Nov-2010 Intent (G8553)By: Elizabet Green DO Wax CurettesBy: Peter ACKERMAN, On: 05-Nov-2010 Intent Elizabet SPECIMEN HNDLNG/TRNSPRT, OFFC > On: 05-Nov-2010 Intent LAB ([id number])By: Elizabet Green DO Nuclear Medicine - HIDA [...] call wet read DO, Adelaida A Spirometry (32351)By: Fast DO, On: 14-Sep-2010 Intent Adelaida A Fast DO, Adelaida A Comments: good effort and curve- mild restriction Eprescribed prescriptions On: 14-Sep-2010 Intent (G8553)By: Fast DO, Adelaida A Fast DO, Adelaida A Pulse Oximetry ([id number])By: Fast On: 14-Sep-2010 Intent DO, Adelaida A Fast DO, Adelaida A Comments: 94-95 Radiology - Chest- PA and LatBy: On: 14-Sep-2010 Intent Fast DO, Adelaida A Fast DO, Adelaida A Pulse Oximetry ([id number])By: Jossyesclain On: 23-Feb-2010 Intent ALBARO Anamaria Aerosol Treatment ([id number])By: On: 23-Feb-2010 Intent Ciesa ALBARO Anamaria Pulse Oximetry ([id number])By: Ciescalin On: 26-Jan-2010 Intent ALBARO Anamaria Aerosol Treatment ([id number])By: On: 26-Jan-2010 Intent Ciesa ALBARO Anamaria Spirometry ([id number])By: Felicitas On: 29-Apr-2008 Intent Leigh Ann Comments: good effort and curve normal EKG ([id number])By: Fast DO, Adelaida A On: 20-Apr-2007 Intent [...] DO, Adelaida A Flakito Comments: Lot #: [id number] date: 10/30Amount given: 2 gramsRoute: IMSite given: Right hip and left hipGiven by: Calin Townsend LPN DO, Adelaida A Spirometry ([id number])By: Flakito DO, On: 27-Mar-2007 Intent Adelaida A Fast DO, Adelaida A Comments: good effort and curve normal EBV SEROLOGIC TESTBy: Mary Ann Salcido On: 17-Feb-2007 Intent RUDY-GUZMAN VCA ANTIBODY On: 16-Feb-2007 Intent MEASUREMENTBy: Mast RN, Negrita SPECIMEN HNDLNG/TRNSPRT, OFFC > On: 06-Feb-2007 Intent LAB ([id number])By: Fast DO, Adelaida A Fast DO, Adelaida A Ultrasound - TesticularBy: Fast On: 13-Oct-2006 Intent DO, Adealida A Fast DO, Adelaida A Inhaler Demo ([id number])By: Flakito DO, On: 26-Sep-2006 Intent Adelaida A Fast DO, Adelaida A Radiology - Hip - LeftBy: Fast On: 26-Sep-2006 Intent DO, Adelaida A Fast DO, Adelaida A Radiology - Hip - RightBy: Fast On: 26-Sep-2006 Intent DO, Adelaida A Fast DO, Adelaida A Bio Z ([id number])By: Fast DO, Adelaida A On: 25-Jul-2006 Intent Fast DO, Adelaida A Comments: normal paremters Six Minute Walk Assessment On: 25-Jul-2006 Intent ([id number])By: Fast DO, Adelaida A Fast DO, Adelaida A Radiology - Chest- PA and LatBy: On: 25-Jul-2006 Intent Fast DO, Adelaida A Fast DO, Adelaida A Spirometry ([id number])By: Flakito DO, On: 25-Jul-2006 Intent Adelaida A Fast DO, Adelaida A Comments: good effort and curve- normal EDISON (Ankle Brachial Index) On: 20-Jul-2006 Intent ([id number])By: Leigh Ann Polk Comments: done EDISON (Ankle Brachial Index) On: 17-May-2006 Intent ([id number])By: Fast DO, Adelaida A Fast DO, Adelaida A Cartoid DopplerBy: Flakito DO, Adelaida On: 17-May-2006 Intent A Fast DO, Adelaida A Planned Medications INJECTION, KETOROLAC TROMETHAMINE, PER 15 MG Ordered: 05-Nov-2010 Pending Elizabet Green DO INJECTION, METHYLPREDNISOLONE SODIUM SUCCINATE, UP TO 125 MG Ordered: 09-May-2015 Pending Carmina IRVIN Samantha Taylor INJECTION, METHYLPREDNISOLONE SODIUM SUCCINATE, UP TO 125 [...] Advance Directives Name Dates Details Immunization Registry [place] - Effective on Effective: 31-Jan-201701/31/2017. Expiration date [...] BPH) and peripheral vascular disease. Note for F ollow up for chronic medical issues: bp is good - alot of stress at home - medical issues- no more diplopia - saw Juany - had mri of brain and carotids and acetylcholine receptor ab neg- he was g oing to [facility] 2-3 times a week for a while [...] acuity and PSA. 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 [...] congestion and ears hurt- [facility] Diagnosis: Cough (786.2), SHORTNESS OF BREATH (Renamed [...] for Follow up ER: Pt went to [facility] and then went to [facility] to have the doppler done.- got [...] 2 days with bad UTI.- was at [facility] and getting cystoscopy done and was found to be retaining urine- - by the next night he was sick with no appetitie and just felt bad went to bed - woke up next day- and felt bad- and went to [facility]- and had uti- was there 2 [...] up hospital : Pt was transfered to [facility] for heart cath and discharged sat 06/30/13.- he had heart cath again at [facility] and one vessel which shows 20percent [...] Follow up, Laboratory Test Results - Date: (6/10/13). Encounter Diagnosis: Abnormal Glucose Tolerance Test (790.22), [...] Current medication use: no joés luis End: 16-Jun-2010 23:11 e effects and [...] chronic medical issues: had colonsocopy- by ara a couple polyps- and repeat 5 years- saw gonzalse- said enlarged prostate but not enough to [...] kidney then goes down- jalen barton regular- rodyyoshi next tuesday- to try colonsocopy- -his breathing [...] saw a Dr Barker a psychiatrist in [place]- he thought mostly anxiety so left him [...] so he is going back to [facility]- mood good with celexa-less tense, [ADDITIONAL REASON] [...] him on nsaid and heart doctor richar warnerrosyn-- doing well with the welbutrin- and saw [...] 17-May-2006 15:50 Encounter Reason: new patient male brendan - Last seen between 1-3 months ago. [...]
--- OUTSIDE RECORDS SUMMARY | 2018-05-15 00:52 | XMS RPT_ITS | Continuity of Care Document ---
:1950 Author Organization [facility] Address [address] [facility] [address] [place] [address] Phone Care Team Providers Name Role Phone Adelaida Fraga DO Unavailable Remigio Lares MD Unavailable Tawanda Alonso Unavailable [facility] Unavailable Eliana Carter Unavailable [...] colonsoocpy 09/05- polyps - repeat 5 years [facility] Status: Active Coronary artery disease (I25.10, [...] Solution daily for 90 days Quantity: 3 {Massillon} Refills: 5 Ordered:31-Oct-2017 Adelaida ACKERMAN DO Adelaida [...] A Start : 02-Nov-2017 Active Comments:sixtyDX: M54.16, M51.71352,411,000 - OD risk 100 Lunesta 3 MG [...] 2 Ordered:13-Feb-2018 Adelaida Fraga DO, DO Adelaida Layton Start : 13-Feb-2018 Active ASMANEX 120 METERED [...] than 1qd and would require pa at [phone] or [phone] - sent in this way to see [...] (Oral Capsule) 1 (one) Capsule Capsule bid t1iztuk for 21 days Quantity: 42 {Capsule} Refills: [...] : 02-Sep-2010 End : 05-Nov-2010 Inactive NYSTATIN, 594747IRAG/ML (Mouth/Throat Suspension) 10 cc tid for 0 [...] : 22-Jun-2013 End : 03-Sep-2013 Inactive ZOSTAVAX, 61053SZH/0.65ML (Subcutaneous Solution Reconstituted) 1 For Solution sc [...] Quantity: 3 {Inhaler} Refills: 3 Ordered:10-Apr-2014 Slarb [employer] DEF[employer] ARTILLERY CREWMEMBER, Tracey Start : 22-Jun-2013 End : 10-Apr-2014 Discontinued ATENOLOL, 50MG (Oral Tablet) 1 tab Tablet qd for 30 days Quantity: 30 {Tablet} Refills: 0 Ordered:10-Apr-2014 Slarb [employer] DEF[employer] ARTILLERY CREWMEMBER, Tracey Start : 12-Jun-2012 End : 10-Apr-2014 [...] Quantity: 60 {Capsule} Refills: 3 Ordered:10-Apr-2014 Slarb [employer] ARTILLERY CREWMEMBER, Tracey Start : 29-Oct-2013 End : 10-Apr-2014 Discontinued Dymista 137-50 MCG/ACT Nasal Suspension 1 spray each nostril qd for 0 days Quantity: 2 {Massillon} Refills: 0 Ordered:11-Jun-2016 Leigh Ann Polk Start [...] Start : 05-Jan-2016 End : 06-Apr-2016 Discontinued Comments:[id number]- df viewed and approved- gave scripts to [...] Quantity: 6 {Package} Refills: 0 Ordered:10-Apr-2014 Slarb [employer] ARTILLERY CREWMEMBER Tracey Start : 06-Feb-2014 End : 10-Apr-2014 [...] x3 one on scalp two on right gnosticism Status: Inactive as of 06-Jun-2017 Acute sinusitis, [...] Visit Report Result: Comments: See Note; NOTES: [facility] 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 Atheros clerosis of yuhaaviatam coronary artery of yuhaaviatam heart without angina pectoris I25.10 PTCA/RINA to [...] Code Off vis,est,level 3 Diagnoses Atherosclerosis of yuhaaviatam coronary artery of yuhaaviatam heart without angina pectoris I25.10 [place] vs. tra nsplanted heart: yuhaaviatam heart Essential hypertension I10 Hypertension type: essential hypertension Pure hypercholesterolemia E78.00; E78.0 Hyperlipidemia type: pure hypercholesterolemia Prinzmetal angin a I20.1 Coding Level of Care Code Off vis,est,level 3 Diagnoses Atherosclerosis of yuhaaviatam coronary artery of yuhaaviatam heart without angina pectoris I25.10 [place] vs. transplanted heart: yuhaaviatam heart Es sential hypertension I10 Hypertension type: essential hypertension Pure hypercholesterolemia E78.00; E78.0 Hyperlipidemia type: pure hypercholesterolemia Prinzmetal angina I20.1 01/10/18 1104 &#6 0;Electronically signed by Sabra KENDALL> Date Sabra KENDALL Cosigner Signature: Date (if applicable) CC: Adelaida Fraga DO 26-Sep-2017 Brain W/WO Contrast Result: Comments: See Note; NOTES: [facility] Imaging Services [address] [place] [address] Brain W/WO Contrast MR#: [id number] Acct: [id number] Name: YUMIKO LANDRUM Rep #: [id number] : 1950 M 67 From: Rodney Sarah MD PCP: Adelaida Fraga DO Status: REG CLI Study: Brain W/WO Contrast Date of Exam: 09/26/17 Exam# [id number] Ordering Dr: Perico Crowe MD STUDY: MRI [...] CC: Perico Crowe MD; Adelaida Fraga DO Pattern Maker Programer: Signed 17-Sep-2017 Carotid Duplex Ultrasound Result: Comments: See Note; NOTES: [facility] Cardiovascular Services [address] [place] [address] Carotid Duplex Ultrasound 09/16/17 1012 MR#: [id number] Acct: [id number] Name: YUMIKO MCCOLLUM Rep #: [id number] : 1950 66 From: Jung Garcia MD Attending Dr: Adelaida Fraga DO Status: REG CLI Ordering Dr: Adelaida Fraga DO Date: 09/16/17 Location: [facility] Sex: M C Admitted: Reason For [...] the left vertebral artery. Procedure Carotid Duplex 63235. The study was technically difficult. Exam performed [...] Date Dictated: 1012 Date Transcribed: 09/17/17 151 Pattern Maker Programer: Signed 17-Aug-2017 History and Physical Exam Result: Comments: See Note; NOTES: [facility] Medical Records Department [address] [place] [address] History and Physical 08/17/17913 MR#: [id number] Acct: [id number] Name: FRANCISCO E Rep #: [id number] : 1950 66 From: Remigio Lares MD PCP: Adelaida Fraga DO Status: REG [facility] Y Location: [facility] Problem List (1) Abnormal stress test Status: Acute (2) Atherosclerotic heart d isease of yuhaaviatam coronary artery without angina pectoris Status: Chronic Qualifiers: [place] vs. transplanted heart: yuhaaviatam heart Qualified Code(s): I25.10 - Atherosclerotic heart disease of yuhaaviatam coron elise artery without angina pectoris Comment: [...] was trivial MR and TR and mild TX. His estimated RV systolic pressure was 30 [...] please see previously dictated out the patient [facility] from 07/14/2017. Review of systems: Upon review [...] this approach. This note was generated with [employer] dictation software. It may contain incorrect words, spelling, and punctuation that were not noted in checking the note bef ore signing. 08/17/17 0925 <Electronically signed by Remigio Lares MD> Date Remigio Lares MD Cosigner Signature: Date (if applicable) CC: Adelaida Fraga DO; Remigio Lares MD Signed 11-Aug-2017 Chest PA and Lateral Result: Comments: See Note; NOTES: [facility] Imaging Services [address] [place] [address] Chest PA and Lateral MR#: [id number] Acct: [id number] Name: YUMIKO LANDRUM Rep #: [id number] : 1950 M 66 From: Will Guerrero MD PCP: Adelaida Fraga DO Status: REG CLI Study: Chest PA and Lateral Date of Exam: 08/11/17 Exam# [id number] Ordering Dr: Remigio Lares MD STUDY: X-RAY [...] CC: Adelaida Fraga DO; Remigio Lares MD Pattern Maker Programer: Signed 02-Aug-2017 Stress Report Result: Comments: See Note; NOTES: [facility] Cardiovascular Services [address] [place] [address] MR#: [id number] Acct: [id number] Name: YUMIKO LANDRUM Rep #: [id number] : [birth year] 66 From: Remigio Lares MD [...] 72 %. This note was generated with [employer] software. It may contain incorrect words, spelling, and punctuation that were not noted in checking the note before signing. 08/02/17 3035 <Electronically signed by Remigio Lares MD> Date Remigio Lares MD CC: Adelaida Fraga DO; Remigio Lares MD Date Dictate d: 08/02/17 1631 Date Transcribed: 08/02/17 1639 Pattern Maker Programer: PM Signed 14-Jul-2017 Cardiology Visit Report Result: Comments: See Note; NOTES: [facility] [address] [place] [address] OFFICE VISIT Date of Service: 07/14/17 MR#: [id number] Acct: [id number] Name: YUMIKO LANDRUM Rep #: [id number] : 1950 Provider: Remigio Lares MD Age/Sex: 66/M Location: [facility] Status: Signed HPI HPI Details: YUMIKO LANDRUM, is a 66 M who presents to the office today for outpatient card iovascular consultation for history of underlying CAD status post LAD PCI. He has been cared for in the past both by the [facility] members (Drs. Griggs and Edwin), at [facility] by Dr. Rosalse, and at [facility] by Dr. Maury Veliz. He states he lost saw Dr. Veliz approximately 1 year ago. He is now relocating his care locally. He has a history of underlying CAD. He underwent a previous diagnostic car diac catheterization on 08/11/2005 at [facility]. At that point in time he [...] no significant stenosis. In April 2008, at [facility], he had a repeat diagnostic cardiac [...] luminal irregularities. He apparently was transferred to [facility] for further evaluation and care. The results [...] an LYNDSEY inhibitor. He believes his former training generalist remove these medications from nd s medication list. 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 Atherosclerosis of yuhaaviatam coronary artery of yuhaaviatam heart without angina pectoris I25.10 PTCA/RINA to [...] Code Off vis,new,level 4 Diagnoses Atherosclerosis of yuhaaviatam coronary artery of yuhaaviatam heart without angina pectoris I25.10 [place] vs. transplanted heart: n ative heart Presence of stent in coronary artery Z95.5 Hyperlipidemia, unspecified hyperlipidemia type E78.5 Hyperlipidemia type: unspecified Essential hypertension I10 Hypertension type: essential hype rtension COPD (chronic obstructive pulmonary disease) J44.9 Coding Level of Care Code Off vis,new,level 4 Diagnoses Atherosclerosis of yuhaaviatam coronary artery of yuhaaviatam heart without angina pectoris I 25.10 [place] vs. transplanted heart: yuhaaviatam heart Presence of stent in coronary artery Z95.5 Hyperlipidemia, unspecified hyperlipidemia type E78.5 Hyperlipidemia type: unspecified Essential hypertension I10 Hypertension type: essential hypertension COPD (chronic obstructive pulmonary disease) J44.9 07/14/17 1558 <Electronically signed by Remigio Lares MD> Date Remigio Lares MD Cosign Signature: Date (if applicable) CC: Adelaida Fraga DO 14-Jul-2017 12 Lead EKG performed by [facility] Result: Comments: See Note; NOTES: [facility] [address] [place] [address] 12 Lead EKG performed by [facility] 07/14/171435 MR#: [id number] Acct: [id number] Name: YUMIKO LANDRUM Rep #: [id number] : 1950 66 From: Remigio Lares MD Attending Dr: Remigio Lares MD Status: [facility] Ordering Dr: Remigio Lares MD Date: 07/14/17 Location: [facility] Sex: M C Admitted: [facility]/12 Lead EKG performed by [facility] ECG Report Interpretation Sinus Rhythm Right bundle branch block. ABNORMAL Electronically signed on 07/14/2017 at 17:15 by Remigio Lares 07/14/17 1717 Date Remigio Lares MD CC: Adelaida Fraga DO Date Dictated: 07/14/171435 Date Transcribed: 07/14/171435 Pattern Maker Programer: PM Signed 04-Jul-2017 TXT - Blood Flow Screening Result: Comments: See Note; NOTES: [facility] Cardiovascular Services [address] [place] [address] 07/04/17 0840 MR#: [id number] Acct: [id number] Name: YUMIKO LANDRUM Rep #: [id number] : 1950 66 From: Jung Garcia MD Attending Dr: Adelaida Frgaa DO Status: REG REF Ordering Dr: Date: [...] (1.0 or greater). Ordering Physician: Adelaida Fraga [facility] Physician: Adelaida Fraga Performed By: Kayla Kelley, MORE, RVT 07/04/17 2222 Date Tyrese Garcia MD CC: Adeladia Fraga DO Date Dictated: 07/04/17 0840 Date Transcribed: 07/04/172221 Pattern Maker Programer: Signed 06-Jun-2017 L/S Spine Min 4 Views Result: Comments: See Note; NOTES: [facility] Imaging Services [address] [place] [address] L/S Spine Min 4 Views MR#: [id number] Acct: [id number] Name: YUMIKO LANDRUM Rep #: [id number] : 1950 M 66 From: Rafael Manley DO PCP: Adelaida Fraga DO Status: REG CLI Study: L/S Spine Min 4 Views Date of Exam: 06/06/17 Exam# [id number] Ordering Dr: Adelaida Fraga DO STUDY: X-RAY [...] Rafael Manley DO at 18:01 EDT Tel [phone], Service support , CC: Adelaida Fraga DO Pattern Maker Programer: Signed 18-Feb-2017 Ankle min 3 Views Result: Comments: See Note; NOTES: [facility] Imaging Services [address] [place] [address] Ankle min 3 Views MR#: [id number] Acct: [id number] Name: YUMIKO LANDRUM Rep #: [id number] D OB: 1950 M 66 From: Trevon Carrillo MD PCP: Adelaida Fraga DO Status: REG CLI Study: Ankle min 3 Views Date of Exam: 02/18/17 Exam# [id number] Ordering Dr: Adelaida Fraga DO STUDY: X-RAY [...] Service support , CC: Adelaida Fraga DO Pattern Maker Programer: Signed 18-Feb-2017 Chest without Contrast Result: Comments: See Note; NOTES: [facility] Imaging Services [address] [place] [address] Chest without Contrast MR#: [id number] Acct: [id number] Name: YUMIKO LANDRUM Rep #: [id number] : 1950 M 66 From: Kaitlin Campoverde PCP: Adelaida Fraga DO Status: REG CLI Study: Chest without Contrast Date of Exam: 02/18/17 Exam# [id number] Ordering Dr: Adelaida Fraga DO STUDY: CT [...] Service support , CC: Adelaida Fraga DO Pattern Maker Programer: Signed 10-Feb-2017 Chest PA and Lateral Result: Comments: See Note; NOTES: [facility] Imaging Services [address] [place] [address] Chest PA and Lateral MR#: [id number] Acct: [id number] Name: YUMIKO LANDRUM Rep #: [id number] : 1950 M 66 From: Chava Fu MD PCP: Adelaida Fraga DO Status: REG CLI Study: Chest PA and Lateral Date of Exam: 02/10/17 Exam# [id number] Ordering Dr: Yola Witt STUDY: X-RAY CHEST [...] , CC: COCO Witt; Adelaida Fraga DO Pattern Maker Programer: Signed 18-Jan-2017 Chest PA and Lateral Result: Comments: See Note; NOTES: [facility] Imaging Services [address] [place] [address] Chest PA and Lateral MR#: [id number] Acct: [id number] Name: YUMIKO LANDRUM Rep #: [id number] : 1950 M 66 From: Erwin Jiménez MD PCP: Adelaida Fraga DO Status: REG CLI Study: Chest PA and Lateral Date of Exam: 01/18/17 Exam# [id number] Ordering Dr: Yola Witt STUDY: X-RAY CHES [...] EST Tel , Service support , CC: REAL ESTATE APPRAISER SUPERVISORMayra Witt; Adelaida Fraga DO Pattern Maker Programer: Signed 11-Apr-2015 Chest PA and Lateral Result: Comments: See Note; NOTES: [facility] Imaging Services [address] [place] [address] Verdana 4d Chest PA and Lateral MR#: [id number] Acct: [id number] Name: YUMIKO LANDRUM Rep #: [id number] : 1950 M 64 From: Stephen Barba MD PCP: Adelaida Fraga DO Status: REG CLI Study: Chest PA and Lateral Date of Exam: 04/11/15 Exam# [id number] Ordering Dr: Adelaida Fraga DO STUDY: X-RAY [...] FACR at 20:20 EST , Service support [phone], RAD/Chest PA and Lateral IMPRESSION: Normal x-ray examination of the chest. No lingular infiltrate is noted on today's examination Electronically Signed: Stephen Barba MD, FACR at 20:20 EST , Service support [phone], CC: Adelaida Fraga DO Pattern Maker Programer: Signed 11-Apr-2015 Hip min 2 Views Result: Comments: See Note; NOTES: [facility] Imaging Services [address] [place] [address] Verdana 4d Hip min 2 Views MR#: [id number] Acct: [id number] Name: CITLALLI LANDRUM Brandon Rep #: [id number] : 1950 M 64 From: Stephen Barba MD PCP: Adelaida Fraga DO Status: REG CLI Study: Hip min 2 Views Date of Exam: 04/11/15 Exam# [id number] Ordering Dr: Adelaida Fraga DO ST UDY: [...] FACR at 20:19 EST , Service support [phone], RAD/Hip min 2 Views IMPRESSION: Normal x-ray examination of the pelvis and hip. Electronically Signed: Stephen Barba MD, FACR 201 07/23/18 at 20:19 EST , Service support [phone], CC: Adelaida Fraga DO Pattern Maker Programer: Signed 11-Apr-2015 L/S Spine Min 4 Views Result: Comments: See Note; NOTES: [facility] Imaging Services [address] [place] [address] Verdana 4d L/S Spine Min 4 Views MR#: [id number] Acct: [id number] Name: YUMIKO LANDRUM Rep #: [id number] : 1950 M 64 From: Stephen Barba MD PCP: Adelaida Fraga DO Status: REG CLI Study: L/S Spine Min 4 Views Date of Exam: 04/11/15 Exam# [id number] Ordering Dr: Susannah Fraga ra, DO STUDY: [...] FACR at 20:20 EST , Service support [phone], RAD/L/S Spine Min 4 Views IMPRESSION: M ild degenerative disc disease at L2-3 and L5-S1. Facet arthrosis at L4-5 and L5-S1. Mild dextroscoliosis. Electronically Signed: Stephen Barba MD, FACR at 20:20 EST Tel , Service support [phone], CC: Adelaida Fraga DO Pattern Maker Programer: Signed 27-Aug-2014 Chest PA and Lateral Result: Comments: See Note; NOTES: [facility] Imaging Services [address] [place] [address] Radiology Report MR#: [id number] Acct: [id number] Name: YUMIKO LANDRUM Rep #: [id number] : 1950 M 63 From: Wilfredo Alvarado MD PCP: Adelaida Fraga DO Status: REG CLI Study: Chest PA and Lateral Date of Exam: 08/27/14 Exam# [id number] Ordering Dr: Adelaida Fraga DO STUDY: X- [...] Wilfredo Alvarado MD at 15:46 EDT Tel [phone], Service support [phone], 0079 RAD/Chest PA and Lateral IMPRESSION: Inc reased markings in the lingular segment of the left upper lobe suggestive of early infiltrate. Followup is recommended. Electronically Signed: Wilfredo Alvarado MD at 15:46 EDT Tel [phone], Service support [phone], CC: Adelaida Fraga DO Pattern Maker Programer: Signed 02-Jul-2013 12 Lead Electrocardiogram Result: Comments: See Note; NOTES: [facility] Cardiovascular Services [address] [place] [address] 12 Lead EKG 06/17/13 1938 MR#: [id number] Acct: [id number] Name: CITLALLI LANDRUM Rep #: [id number] : 1950 62 From: Remigio Lares MD [...] ECG Confirmed by GERDA CALVO, REMIGIO ([id number]), offline editor MADELYN RUBALCAVA ([id number]) on 2013 10:04:35 AM Referred By: Jose Fernando Confirmed By:REMIGIO LARES MD CC: Adelaida byrd DO Date Dictated: 06/17/131937 Date Transcribed: 06/17/131937 Pattern Maker Programer: Signed 30-Jun-2013 Emergency Department Summary Result: Comments: See Note; NOTES: [facility] Medical Records Department [address] [place] [address] Emergency Department Summary MR#: [id number] Acct: [id number] Name: YUMIKO LANDRUM Rep #: [id number] : 1950 62 From: Jose Fernando MD PCP: Adelaida Fraga DO Status: DEP ER DATE OF SERVICE: 06/28/2013 CHIEF COMPLAINT: Chest pain. HISTORY OF PRESENT ILLNESS: The patient states over the past 8 hours, he has had intermittent discomfort in the chest of burning to ache similar to angina. He had an AZ, he thinks, back in 2011 when he had a stent placed by Dr. Mariah carr in [facility]. He has been off his blood [...] nerve function and treatment. [facility] DEPARTMENT COURSE: Portable one-view chest x-ray shows [...] a 3. He agreed to go to [facility] where his training generalist is in case he needs another cath and stent. He was stable for transfer. I spoke with [facility], Jorge and Dr. Trujillo as psychiatric aides teacher accepted the patient after being advised of all the above through the transfer lift team technician. He did not want to talk to me. The patient is stable for transfer, with him. DIAGNOSES: 1. Chest pain. 2. Unstable angina. MD Abdullahi Vasquez C: Adelaida Fraga DO T: NTS JOB: [id number] 06/30/13 0021 <Electronically signed by Jose Fernando MD> Date Jose Fernando MD CC: Adelaida Fraga DO Date Dictated: 06/28/132254 Date Transcribed: 06/28/132254 Pattern Maker Programer: Signed 28-Jun-2013 Chest 1 View (Portable) Result: Comments: See Note; NOTES: [facility] Imaging Services [address] [place] [address] Radiology Report MR#: [id number] Acct: [id number] Name: YUMIKO LANDRUM Rep #: [id number] : 1950 M 62 From: Wilfredo Alvarado MD PCP: Adelaida Fraga DO Status: DEP ER Study: Chest 1 View (Portable) Date of Exam: 06/28/13 Exam# [id number] Ordering Dr: Jose Fernando MD STUDY: X-RAY [...] Wilfredo Alvarado MD at 9:06 EDT Tel [phone], Service support [phone], CC: Adelaida Fraga DO; Jose Fernando MD Pattern Maker Programer: Signed Immunization Name Dates Details Influenza vaccine, split, 3yrs &>, IM (AFLURIA) on: Nov-2017 Influenza, inj, MDCK, preservative free, q.valent on: 07-Dec-2016 Comments: Site: Lot #: [id number] Family History Unknown Family Member Name Dates [...] Status: Active 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 [place], [place], [address] Absolute Lymph 1.76 {X10_3/ul} (Normal) Range: 0.83-4.51 [...] 4.6-6.2 WBC 5.7 K/mm3 (Normal) Range: 4.4-11.0 82-Cts-237165:31 Comprehensive Metabolic Profil Comments: [facility] [address] [place], [place], [address] ; fu 10-16 DF GAP 9 (Normal) [...] A.D.A. criteria.Please note revised GLUCOSE reference range aovabeptl82/02/2018. 68-Rse-389802:31 Hemoglobin A1c Comments: [facility] [address] [place], [place], [address] HGB A1C 6.0 % (Normal) Range: 4.2-6.3 80-Txv-168872:31 Lipid Profile Comments: [facility] [address] [place], [place], [address](220) VLDL 24 mg/dL (Normal) Range: 5-40 LDL [...] 200-240 mg/dL Borderline >240 mg/dL High Risk 35-Zvd-250416:31 PSA,Total - Annual Screen Comments: [facility] [address] [place], [place], [address] PSA,TOT SCREEN 0.50 ng/mL (Normal) Range: 0.00-4.00 Comments: This test was performed using the TPSA assay method for the[employer] chemistry system. Values obtained with differentassay methods cannot be used interchangably.When changing PSA assays in the course of monitoring apatient, additional sequential testing should be carriedout to confirm baseline values. 76-Wxm-166641:42 Aspergillus Antibodies Comments: [facility] (refer to report for specific site)refer to report for address and phone number Asp. niger Negative (Normal) Asp. flavus Negative (Normal) Asp. fumigatus Negative (Normal) 76-Mzu-324858:42 Immunoglobulin E Comments: [facility] (refer to report for specific site)refer to report for address and phone number IMMUNO E 19 {IU/mL} (Normal) Range: 0-100 39-Ckc-700528:42 Immunoglobulin G Comments: [facility] (refer to report for specific site)refer to report for address and phone number IMMUNO G 702 mg/dL (Normal) Range: 700-1600 Comments: Performed at: [address] [id number] Director: Joseph Velez MD, Phone: [phone] at: [place] [id number] Director: Hugo Britt PhD, Phone: [phone] 70-Mgx-553718:42 Miscellaneous Lab Comments: Comments: [id number] CASTRORTTest(s) Ordered: [id number] CASTRO[facility] [address] [place], [address] Procedure MIS Comments: TEST RESULT UNITS REFERENCE INTERVALA. fumigatus #1 Abs NEGATIVE NEGATIVE TESTING PERFORMED AT [facility]. O LAB (Normal) RIGINAL REPORT ON FILE IN LAB CONTAINS ADDITIONAL TEST SITE INFORMATION. TEST 5-Hgy-208266:28 Acetylcholine Receptor Comments: Has Patient had Radioactive In[facility]ray?: [facility] ([facility] to [facility] for specific site)refer to report for address and phone number ACTYL [id number] < 0.03 nmol/L (Normal) Range: 0.00-0.24 Comments: Negative: 0.00 - 0.24 Borderline: 0.25 - 0.40 Positive: > 0.40Performed at: [facility] [id number] Director: Joseph Velez MD, Phone: [phone] :[phone] BUN 9 mg/dL (Normal) Comments: [place] [address] [place], [id number] Range: 7-18 7-Ecf-074070:28 Serum Creatinine AND GFR Comments: [address], [address] EST GFR - AA 100 mL/min (Normal) Comments: GFR Calc EST GFR 83 mL/min (Normal) Comments: Non- GFR Calc CREAT,SERUM 0.97 mg/dL (Normal) Range: 0.70-1.30 Comments: The validity of the calculated GFR AND GFRAA in patients over70 years has not been determined. Clinical correlation isessential. 69-Qmp-167133:13 Culture, Fungus 8482 Comments: [place] [address] [place], [address] CUF See Note Comments: Cu,Fldzwv8073 TESTING PERFORMED AT [facility]. ORIGINAL REPORT ON FILE IN LAB CONTAINS ADDITIONAL TEST SITE INFORMATION. (Normal) ORGANISM 1: Barron albicansAmount Growth Growth ORGANISM 2: Penicillium speciesAmount Growth Growth 95-Axk-767861:13 Culture, Sputum Comments: [place] [address] [place], [address] CUSP See Note (Normal) Comments: Gram StainAcceptable Specimen? Yes (<25 Epithelial cells per/lpf) Gram Stain 2+ White Blood Cells 2+ Epithelial cells 4+ Gram positive cocci 4+ Gram positive rods Resp. CultureNo Haemoph ilus, Streptococcus pneumoniae, beta-hemolytic Streptococcus or Staphylococcus aureus isolated. ORGANISM 1: Yeast Like OrganismAmount Growth Rare ORGANISM 2: Mixed FloraAmount Growth 3+ :59 CBC W/Diff, Automated Comments: [facility] Rrzucykzmk4356 [place], [address] Absolute Lymph 1.98 {X10_3/ul} (Normal) Range: 0.83-4.51 [...] 4.6-6.2 WBC 10.8 K/mm3 (Normal) Range: 4.4-11.0 63-Vav-630109:59 Comprehensive Metabolic Profil Comments: [facility] Pwkivqfehd3035 [address] [place], [place], [address] GAP 10 (Normal) Range: 5-15 CO2 27.0 [...] A.D.A. criteria.Please note revised GLUCOSE reference range pdscuqjtm74/02/2018. 65-Yny-941127:59 Hemoglobin A1c Comments: [facility] Vnzmsvfvri6627 [address] [place], [address] HGB A1C 6.2 % (Normal) Range: 4.2-6.3 31-Ooj-529734:59 Lipid Profile Comments: [facility] Xksbcnuxwv2560 [address] [place], [place], [address] VLDL 13 mg/dL (Normal) Range: 5-40 LDL [...] 200-240 mg/dL Borderline >240 mg/dL High Risk 45-Gjr-953631:59 Microalb:Creat Ratio,Random UR Comments: [facility] Aytbgajdvh04[address] [place], [place], [address] MALB:CREAT 10.1 {mg/g_CRE} (Normal) MICROALBUMIN,UR 5.6 mg/L (Normal) UR CREAT 55.70 mg/dL (Normal) 9-Tow-601356:45 Basic Metabolic Profile (BMP) Comments: [facility] Cfzawobtbs7048 [address] [place], [place], [address] GAP 6 (Normal) Range: 5-15 CO2 29.0 [...] Comments: Please note revised GLUCOSE reference range dhgbpanag41/02/2018. 7-Smp-076714:45 Lipid Profile Comments: [facility] Yqmsajsfwr[address] [place], [place], [address] VLDL 22 mg/dL (Normal) Range: 5-40 LDL [...] 200-240 mg/dL Borderline >240 mg/dL High Risk 8-Kaq-682413:45 Liver Profile Comments: [facility] Thplhiqrru0869 [address] [place], [place], [address] D BILI 0.13 mg/dL (Normal) Range: 0.00-0.30 T BILI 0.50 mg/dL (Normal) Range: 0.20-1.00 ALT 27 U/L (Normal) Range: 16-61 ALK P 53 U/L (Normal) Range: 45-117 AST 20 U/L (Normal) Range: 15-37 GLOB 4.3 g/dL (Abnormal) Range: 2.2-4.2 ALB 3.0 g/dL (Abnormal) Range: 3.2-5.0 T PROT 7.3 g/dL (Normal) Range: 6.4-8.2 61-Egv-362970:31 Basic Metabolic Profile (BMP) Comments: [facility] Ptsvmrbkjb4645 [address] [place], [place], [address] GAP 4 (Abnormal) Range: 5-15 CO2 27.0 [...] A.D.A. criteria.Please note revised GLUCOSE reference range ebaopdyke84/02/2018. 59-Bba-769592:31 CBC-Complete Blood Cnt No Diff Comments: [facility] Wgignpfsos5[address] [place], [place], [address] MPV 8.7 fL (Normal) Range: 6.2-12.0 PLT [...] 4.6-6.2 WBC 9.6 K/mm3 (Normal) Range: 4.4-11.0 82-Ghr-621198:31 Partial Thromboplast Time Comments: [place] [address] [place], [address] PTT 26.1 s (Normal) Range: 24.1-36.2 40-Tvm-140879:31 Prothrombin Time w/INR Comments: [place] [address] [place], [address] INR 0.9 (Normal) PROTIME 12.5 s (Normal) Range: 11.7-14.9 74-Mva-82431:00 Culture, Fungus 8482 Comments: [place] [address] [place], [address] CUF See Note Comments: Cu,Wpnsdf0376 TESTING PERFORMED AT [facility]. ORIGINAL REPORT ON FILE IN LAB CONTAINS ADDITIONAL TEST SITE INFORMATION. (Normal) ORGANISM 1: Barron albicansAmount Growth Growth ORGANISM 2: Penicillium speciesAmount Growth Growth ORGANISM 3: Aspergillus speciesAmount Growth Growth 27-Dhn-25183:00 Culture, Sputum Comments: [address] [place], [place], [address] CUSP See Note (Normal) Comments: Gram StainAcceptable Specimen? Yes (<25 Epithelial cells per/lpf) Gram Stain 1+ White Blood Cells Rare Epithelial cells 4+ Gram positive rods 1+ Gram negative rods Resp. Culture Mixed nor mal respiratory ashkan. No Haemophilus, Streptococcus pneumoniae, beta-hemolytic Streptococcus or Staphylococcus aureus isolated. 28-Suc-790860:00 Culture, Sputum Comments: [place] [address] [place], [place], [address] CUSP See Note (Normal) Comments: Gram StainAcceptable Specimen? Yes (<25 Epithelial cells per/lpf) Gram Stain 1+ White Blood Cells Rare Epithelial cells 3+ Gram positive cocci Resp. CultureMixed normal respiratory ashkan. No Haemophilus, Streptococcus pneumoniae, beta-hemolytic Streptococcus or Staphylococcus aureus isolated. 12-Sst-427012:44 TESTOSTERONE FREE (92071) Comments: PATIENT NOT FASTINGPERFORMED BY: [address] [id number] BY: [address] [id number] Free Testosterone(Direct) 2.6 pg/mL (Abnormal) Range: 6.6-18.1 29-Tqi-615505:44 HEPATITIS C ANTIBODY Comments: PATIENT NOT FASTINGPERFORMED BY: [employer] [id number] BY: [address] [id number] ([address]) Hep C Virus Ab 0.1 {s/co_ratio} (Normal) Range: 0.0-0.9 Comments: Negative: < 0.8 Indeterminate: 0.8 - 0.9 Positive: > 0.9 . The CDC recommends that a positive HCV antibody result be followed up with a HCV Nucleic Acid Amplification test (571924). 18-Sdj-954768:44 CBC W/AUTO DIFF WBC Comments: PATIENT NOT FASTINGPERFORMED BY: [address] [id number] BY: [address] [id number] ([address]) Immature Grans (Abs) 0.0 {x10E3/uL} (Normal) Range: [...] 4.14-5.80 WBC 6.1 {x10E3/uL} (Normal) Range: 3.4-10.8 18-Mkz-573742:44 METABOLIC PANEL, Comments: PATIENT NOT FASTINGPERFORMED BY: [facility] Usxajn2291 [facility] [id number] BY: BN [facility] Cfaimtluwo4428 [facility] [id number] [facility] ([address]) ALT (SGPT) 17 [iU]/L (Normal) Range: 0-44 [...] 8-27 Glucose 102 mg/dL (Abnormal) Range: 65-99 50-Hug-500960:15 HgA1C , Office (11308) HgA1C , Office 5.7 % (Normal) Range: 4.6 - 7.1 68-Tyx-364981:30 CBC W/Diff, Automated Comments: [facility] Ofjcvjxlnn6[address] [place], [place], [address] Absolute Lymph 1.76 {X10_3/ul} (Normal) Range: 0.83-4.51 [...] 4.6-6.2 WBC 6.7 K/mm3 (Normal) Range: 4.4-11.0 08-Lpn-576995:30 Comprehensive Metabolic Profil Comments: [facility] Qtzedauppb0563 [address] [place], [place], [address] GAP 9 (Normal) Range: 5-15 CO2 25.0 [...] 7-18 GLU 78 mg/dL (Normal) Range: 70-110 22-Bfl-189069:30 Culture, Urine Comments: [facility] Npmujqwdjn7034 [place], [address] CUUR See Note (Normal) Comments: Urine CultureCulture exhibits no growth. 23-Enm-053298:30 Lipid Profile Comments: [facility] Mmgxmyslzw7870 [address] [place], [address] VLDL 19 mg/dL (Normal) Range: 5-40 LDL [...] 200-240 mg/dL Borderline >240 mg/dL High Risk 26-Mnc-335783:10 Rapid Strep Test, Office (75217) Comments: Negative Rapid Strep Test, Office Negative (Normal) 55-Ana-98602:51 THROAT CULTURE (16410) Comments: PATIENT NOT FASTINGPERFORMED BY: [facility] [id number] Information: SRC: Result 1 RRF (Normal) Comments: Routine respiratory ashkan Upper Respiratory Culture Final report (Normal) 16-Qll-314423:02 Rapid Flu (79891 x 2) Comments: Negative Influenza A Ag Negative (Normal) 37-Idu-205316:45 URINE WARREN CULTURE-IDENTIFICATN Comments: PERFORMED BY: [facility] [id number] Information: SRC: (31965) Result 1 NG36 (Normal) Comments: No growth in 36 - 48 hours. Urine Culture,Comprehensive Final report (Normal) 84-Ueq-887658:02 Urinalysis, Office (92156) UA - LEUKOCYTE ESTERASE Negative (Normal) UA - NITRITE Negative (Normal) URINE UROBILINGN MASSIEL TIMED Normal mg/dL (Normal) UA - PROTEIN Negative mg/dL (Normal) UA - PH 7 (Normal) UA - BLOOD Negative (Normal) UA - SPECIFIC GRAVITY 1.020 (Normal) UA - KETONES Negative mg/dL (Normal) UA - BILIRUBIN Negative (Normal) UA - GLUCOSE Negative (Normal) 35-Rmz-120310:22 CBC W/Diff, Automated Comments: [facility] Voqelpbrsv232[address] [place], [place], [address] Absolute Lymph 1.50 {X10_3/ul} (Normal) Range: 0.83-4.51 [...] 4.6-6.2 WBC 6.2 K/mm3 (Normal) Range: 4.4-11.0 07-Chf-608032:22 Comprehensive Metabolic Profil Comments: [facility] [address] [place], [place], [address] ; will review opn 11/10 GAP 7 [...] 7-18 GLU 104 mg/dL (Normal) Range: 70-110 50-Out-750868:22 Hemoglobin A1c Comments: [facility] Fwyqyzhsgv0025 [address] [place], [place], [address] HGB A1C 5.6 % (Normal) Range: 4.2-6.3 34-Dyt-206506:22 Immunofixation, Serum Comments: [facility] (refer to report for specific site)refer to report for address and phone number PAULA RESULT,S Comment (Normal) Comments: No monoclonality detected. IMMUNOGL M 53 mg/dL (Normal) Range: 20-172 IMMUNO A 169 mg/dL (Normal) Range: 61-437 IMMUNO G 692 mg/dL (Abnormal) Range: 700-1600 04-Ugd-186222:22 [place] Lambda Light Chains Comments: [facility] (refer to report for specific site)refer to report for address and phone number KAPPA/LAMBDA % 1.17 (Normal) Range: 0.26-1.65 Comments: Performed at: [address] [id number] Director: Hugo Britt PhD, Phone: [phone] FR LAMBDA LT CH 12.3 mg/L (Normal) Range: 5.7-26.3 FR KAPPA LT CHN 14.4 mg/L (Normal) Range: 3.3-19.4 81-Jeu-671282:22 Lipid Profile Comments: [facility] Qrxeikdnxu2825 [place], [address] VLDL 20 mg/dL (Normal) Range: [...] 200-240 mg/dL Borderline >240 mg/dL High Risk 52-Wio-441877:22 Microalb:Creat Ratio,Random UR Comments: [facility] Zsqbhbuiut0171 [address] [place], [place], [address] ; will review on 11/10 MALB:CREAT 5.6 {mg/g_CRE} (Normal) MICROALBUMIN,UR 7.2 mg/L (Normal) UR CREAT 128.00 mg/dL (Normal) 18-Ucw-994738:22 PSA,Total - Annual Screen Comments: [facility] Dmauryzmyn3241 [place], [address] PSA,TOT SCREEN 0.63 ng/mL (Normal) Range: 0.00-4.00 Comments: This test was performed using the TPSA assay method for the[employer] chemistry system. Values obtained with differentassay methods cannot be used interchangably.When changing PSA assays in the course of monitoring apatient, additional sequential testing should be carriedout to confirm baseline values. 35-Qfu-152227:07 CBC W/Diff, Automated Comments: [facility] Tidtmapbys7417 [address] [place], [place], [address] Absolute Lymph 1.42 {X10_3/ul} (Normal) Range: 0.83-4.51 [...] Range: 4.4-11.0 :07 Comprehensive Metabolic Profil Comments: [facility] Sinochmfzi9242 [address] [place], [place], [address] GAP 8 (Normal) Range: 5-15 CO2 27.0 [...] 7-18 GLU 104 mg/dL (Normal) Range: 70-110 95-Gqa-155596:07 Hemoglobin A1c Comments: [facility] Oqfqxekmpu4696 [address] [place], [place], [address] HGB A1C 5.6 % (Normal) Range: 4.2-6.3 :07 PAULA + Protein Elect, Serum Comments: Is Patient Fasting? [facility] (refer to report for specific site)refer to report for address and phone number NOTE: Comment (Normal) Comments: Protein electrophoresis scan will follow via computer,mail, or master dyer delivery.Performed at: [address] [id number] Director: Hugo Britt PhD, Phone: [phone] PALUA RESULT,S Comment (Normal) Comments: No monoclonality detected. A/G RATIO 1.2 (Normal) Range: 0.7-1.7 GLOBULIN, TOTAL 3.0 g/dL (Normal) Range: 2.2-3.9 M-SPIKE g/dL (Normal) Comments: Not Observed GAMMA GLOBULIN 0.7 g/dL (Normal) Range: 0.4-1.8 BETA GLOBULIN 1.1 g/dL (Normal) Range: 0.7-1.3 CEDJP-1-DPRY 0.8 g/dL (Normal) Range: 0.4-1.0 ZRYRY-3-QENB 0.3 g/dL (Normal) Range: 0.0-0.4 ALBUMIN 3.3 g/dL (Normal) Range: 2.9-4.4 IMMUNOGL M 53 mg/dL (Normal) Range: 20-172 IMMUNO A 177 mg/dL (Normal) Range: 61-437 IMMUNO G 761 mg/dL (Normal) Range: 700-1600 PROTEIN,TOTAL 6.3 g/dL (Normal) Range: 6.0-8.5 43-Zow-699897:07 Lipid Profile Comments: [facility] Zcaodxtpql2262 [place], [address] VLDL 21 mg/dL (Normal) Range: 5-40 LDL [...] 200-240 mg/dL Borderline >240 mg/dL High Risk 09-Yyk-287225:01 CBC W/Diff, Automated Comments: [facility] Apcugxwkrl[address] [place], [place], [address] Absolute Lymph 1.62 {X10_3/ul} (Normal) Range: 0.83-4.51 [...] 4.6-6.2 WBC 7.6 K/mm3 (Normal) Range: 4.4-11.0 26-Vqb-315686:01 Comprehensive Metabolic Profil Comments: [facility] Oedwiptqxd29[address] [place], [address] ; has apt today GAP 7 (Normal) [...] 7-18 GLU 96 mg/dL (Normal) Range: 70-110 66-Ewq-698094:01 Lipid Profile Comments: [facility] Yrgpteicev0020 [address] [place], [place], [address] VLDL 11 mg/dL (Normal) Range: 5-40 LDL [...] 200-240 mg/dL Borderline >240 mg/dL High Risk 81-Obi-738065:01 Lipoprotein A 369 nmol/L (Abnormal) Comments: [facility] [...] genetic factors on Lp(a) across ethnicities.Performed at: [facility] [employer] [id number] Director: Hugo Britt PhD, Phone: [phone] 74-Idz-469276:56 HgA1C , Office (18470) HgA1C , Office 5.6 % (Normal) Range: 4.6 - 7.1 5-Ois-187212:19 ANCA Panel Comments: PATIENT NOT FASTINGPERFORMED BY: [facility] SoftwareAaron [place] [address] [facility] [id number] BY: [employer] [id number] Atypical pANCA <1:20 {titer} Comments: The atypical [...] follow up testing ofpositive sera with both TX-3 and MPO-ANCA enzyme immunoassays. Asmany as 5% serum samp les are positive only by EIA.Ref. AM J Clin Pathol 1999;111:507-513. Cytoplasmic (C-ANCA) <1:20 {titer} (Normal) Antiproteinase 3 (TX-3) Abs <3.5 U/mL (Normal) Range: 0.0-3.5 Antimyeloperoxidase (MPO) Abs <9.0 U/mL (Normal) Range: 0.0-9.0 :19 Antinuclear Antibodies Comments: PATIENT NOT FASTINGPERFORMED BY: [address] [id number] BY: [facility]6370 [facility] [id number] Direct JOHN Direct Negative (Normal) :1 C-Reactive Protein, 2.1 mg/L (Normal) Comments: PATIENT NOT FASTINGPERFORMED BY: [address] [id number] BY: [facility]6370 [facility] [id number] Quant Range: 0.0-4.9 :19 Rheumatoid Arthritis Comments: PATIENT NOT FASTINGPERFORMED BY: [address] [id number] BY: [facility]6370 [facility] [id number] Factor RA Latex Turbid. 7.8 {IU/mL} Range: 0.0-13.9 (Normal) Sedimentation 8 mm/h (Normal) Comments: PATIENT NOT FASTINGPERFORMED BY: [address] [id number] BY: [place] [address] [facility] [id number] :19 Rate-Westergren Range: 0-30 Thyroid Peroxidase (TPO) 8 {IU/mL} (Normal) Comments: PATIENT NOT FASTINGPERFORMED BY: [address] [id number] BY: [facility]6370 [facility] [id number] :19 Ab Range: 0-34 :19 Thyroxine (T4) Free, Comments: PATIENT NOT FASTINGPERFORMED BY: [address] [id number] BY: [facility]6370 [facility] [id number] Direct, S T4,Free(Direct) 1.11 ng/dL Range: 0.82-1.77 (Normal) Triiodothyronine,Free,Seru 2.5 pg/mL (Normal) Comments: PATIENT NOT FASTINGPERFORMED BY: [address] [id number] BY: [facility]6370 [facility] [id number] 2:19 m Range: 2.0-4.4 TSH 3.450 {uIU/mL} Comments: PATIENT NOT FASTINGPERFORMED BY: [address] [id number] BY: [facility]6370 [facility] [id number] 2:19 (Normal) Range: 0.450-4.500 9-Xwo-056237:30 Pathology Report Comments: PERFORMED BY: [facility] Cyto Najhg76336 [facility] [id number] Information: [id number] See MATER Comments: Material submitted: .FOREHEAD SHAVE [...] IN CASSETTE(S) A./CORCOR/CORPa thologist provided ICD-10:D48.5, L90.9CPT .286575 :22 TESTOSTERONE FREE (75512) Comments: PATIENT WAS FASTINGPERFORMED BY: [employer]70 [facility] [id number] BY: [employer] [id number] Free Testosterone(Direct) 2.5 pg/mL (Abnormal) Range: 6.6-18.1 39-Blv-84537:22 VITAMIN B-12 (CYANOCOBALAMIN) Comments: PATIENT WAS FASTINGPERFORMED BY: [employer] [facility] [id number] BY: [employer] [id number] ([address]12) Vitamin B12 638 pg/mL (Normal) Range: 211-946 :22 CBC W/AUTO DIFF WBC Comments: PATIENT WAS FASTINGPERFORMED BY: [facility]ologiesNewton Medical CenterFejwwg7103 [facility] [id number] BY: [employer] [id number] Inf ormation: NURSE DRAW (82885) Immature Grans (Abs) 0.0 {x10E3/uL} (Normal) Range: [...] 4.14-5.80 WBC 7.3 {x10E3/uL} (Normal) Range: 3.4-10.8 51-Lmy-33729:22 METABOLIC PANEL, Comments: PATIENT WAS FASTINGPERFORMED BY: [employer] Fcbeki7249 [facility] [id number] BY: [employer] [id number] [facility] ([address]) ALT (SGPT) 12 [iU]/L (Normal) Range: 0-44 [...] Range: 65-99 :52 CBC W/Diff, Automated Comments: [facility] Elqpcjxaij3060 [place], [address] Absolute Lymph 1.73 {X10_3/ul} (Normal) [...] 4.6-6.2 WBC 6.0 K/mm3 (Normal) Range: 4.4-11.0 07-Mfl-97386:52 Comprehensive Metabolic Profil Comments: [facility] Vzxpveyfsw3106 [place], [address] GAP 6 (Normal) Range: 5-15 CO2 26.0 [...] (Normal) Range: 70-110 :52 Hemoglobin A1c Comments: [facility] [address] [place], [place], [address] HGB A1C 5.6 % (Normal) Range: 4.2-6.3 :52 Lipid Profile Comments: [facility] Rbhfrnrnub[address] [place], [place], [address] VLDL 21 mg/dL (Normal) Range: 5-40 LDL [...] High Risk :52 Microalb:Creat Ratio,Random UR Comments: [facility] [address] [place], [place], [address] MALB:CREAT 9.1 {mg/g_CRE} (Normal) MICROALBUMIN,UR 9.0 mg/L (Normal) UR CREAT 99.50 mg/dL (Normal) :52 PSA,Total - Annual Screen Comments: [facility] Fglwkvycev[address] [place], [place], [address] PSA,TOT SCREEN 0.51 ng/mL (Normal) Range: 0.00-4.00 Comments: This test was performed using the TPSA assay method for [employer] chemistry system. Values obtained with differentassay methods cannot be used interchangably.When changing PSA assays in the course of monitoring apatient, additional sequential testing should be carriedout to confirm baseline values. COLON BIOPSY (CHOOSE See Note (Normal) Comments: [facility] Asvzwmbbbe[address] [place], [place], [address] :45 SITE) Comments: Patient: YUMIKO LANDRUM : 1950 (64/M) Acct Num: [id number] Phys: Hugo Bullock Unit Num: [id number] Loc: LABSPEC Specimen: [id number] Received: 09/11/151646 Spec Type: C OLON BX [...] in one cassette. / Heraclio 09/11 TC:1 CPT:23369 x2 HEADER OPERATION: Colonoscopy with biopsy PRE-OP DIAGNOSIS: Screening/polyp TISSUE SUBMITTED: A - Polyp cecum, R/O adenoma, B - Polyp sigmoid, R/O adenoma MICROSCOP IC DESCRIPTION Slides are reviewed. MICROSCOPIC DIAGNOSIS A. Polyp cecum, biopsy: Fragments of tubular adenoma. B. Polyp sigmoid, biopsy: Fragments of tubular adenoma. SJ:momo 09/15/15 Signed Pamella Son 09/15/15 <signature on file> :37 CBC W/Diff, Automated Comments: [facility] Srtxfmuewz03[address] [place], [place], [address] ; noon-emergent till apt Absolute Lymph 1.39 [...] 4.6-6.2 WBC 6.5 K/mm3 (Normal) Range: 4.4-11.0 29-Jnl-609379:37 Comprehensive Metabolic Profil Comments: [facility] Vkrkkkbdeo7166 [place], [address] GAP 6 (Normal) Range: 5-15 [...] <126 mg/dLsuggests IMPAIRED HOMEOSTASIS per A.D.A. criteria. 56-Euh-326421:37 Hemoglobin A1c Comments: [facility] Lqmvupozij66[address] [place], [address] HGB A1C 5.6 % (Normal) Range: 4.2-6.3 98-Oym-050855:37 Lipid Profile Comments: [facility] [address]lltucdk[address] [place], [address] VLDL 17 mg/dL (Normal) Range: [...] 200-240 mg/dL Borderline >240 mg/dL High Risk 1-Hiu-842507:12 Factor II, DNA Analysis Comments: [facility] (refer to report for specific site)refer to report for address and phone number COMMENT Comment (Normal) Comments: Genetic Counselors are available for health care providersto discuss results at [phone]).Methodology:DNA analysis of the Factor II gene was performed by PCRamplification followed by restric tion analysis. Thediagnostic sensitivity is >99% for both. All the tests mustbe combined with clinical information for the most accurateinterpretation. Molecular-based testing is highly accurate,but as in any laboratory test, diagnostic errors may occur.Poort SR, et al. Blood. 1996; 88:4714-6226.Diallo EA. Circulation. 2004; 110:e15-e18.Bobby I, et al. Arterioscler Thromb Vasc Biol. 1999;19:700 -703.Lance Shea, Chente Cooper, Lorena Santo PhDAlecia Willis, Matilde Benjamin, PhDPerformed at: TG - [facility] KDM6867 [place], [place] [id number] villa: Vilma Butterfield MD, Phone: [phone] FACTOR II,DNA Comment (Normal) Comments: NEGATIVENo mutation identified.Comment:A point mutation ([id number]) in the factor II (prothrombin)gene is the [...] individual mutations. This assaydetects only the prothrombin C68585T mutation and doesnot measure genetic abnormalities elsewhere i n thegenome. Other thrombotic risk factors may be pursuedthrough systematic clinical laboratory analysis. Thesefactors include the R506Q ([place]) mutation in the Factor Vgene, plasma homocysteine levels , as well as testing fordeficiencies of antithrombin III, protein C and protein S. 29-Lwt-40342:42 Miscellaneous Comments: Comments: [id number],PLASMA,BLUETest(s) Ordered: [id number],PLASMA,[facility] Jorjkgvizh8683 [facility] [place], [place], [address] Lab Procedure MISC Comments: TEST RESULT UNITS [...] - Time (Normal) Comments: Performed at: - [facility] [id number] Director: Joseph Velez MD, Phone: [phone] F e b - 2 0 1 6 9 : 4 2 :34 CBC W/Diff, Automated Comments: [facility] Wlfyauheak[address] [place], [place], [address] Absolute Lymph 1.34 {X10_3/ul} (Normal) Range: 0.83-4.51 [...] (Normal) Range: 4.4-11.0 :34 Comprehensive Comments: Comments: [id number],NIIDERICK,[facility] [address] [place], [address] ; apt today Metabolic Profil GAP 8 [...] for health careproviders to discuss results at [phone] [phone]Methodology:DNA analysis of the Factor V gene was [...] Beal, PhDBette lugo, PhDKelly Benjamin, PhDPerformed at: [address] [id number] Director: Joseph Velez MD, Phone: [phone] at: [facility] [id number] [place], [place] [id number] Director: Vilma Butterfield MD, Phone: [phone] FACTOR V LEIDEN Comment (Normal) Comments: Result: [...] in the workup for venous thrombosis include [id number] mutation in the factor II (prothrombin) gene,protein S and C deficiency, and antithrombin deficiencies.Anticardiolipin antibody and lupus anticoagu lant analysismay be appropriate for certain patients, as well ashomocysteine levels.Contact your local [facility] for information on how to orderadditional testing if desired. 00-Chz-00391:34 Hemoglobin A1c Comments: [facility] [address] [place], [place], [id number] HGB A1C 5.6 % (Normal) Range: 4.2-6.3 :34 Lipid Profile Comments: Comments: [id number],[facility] [address] [place], [address] VLDL 17 mg/dL (Normal) Range: [...] High Risk :34 Miscellaneous Lab Comments: Comments: [id number],[facility] SCOTTSDALETest(s) Ordered: [id number] Grant Medical Center [address] [place], [address] Procedure MISC Comments: TEST RESULT [...] anticoagulant is not de tected. aCL and U7NH2bwsgdjausm are normal.ANTIPHOSPHOLIPID SYNDROME ASSESSMENT SUMMARY-No evidence of a lupus anticoagulant, B2GP1 or aCLantibodies. As antibody titers may fluctuate with time,repeat te sting may be indicated if antiphospholipid syndromeis suspected.ANTIPHOSPHOLIPID SYNDROME ASSESSMENT DEFINITIONS-aCL- anticardiolipin (antibodies to cardiolipin); E6EZ6-pwpxivcqeu to Beta-2 Glycoprotein 1; LA- lupus anticoagulant(which is identified with the dRVVT and/or hexagonalphospholipid neutralization assays); aPL- antibodies toprotein/phospholipid complexes such as LA, aCL, and T2JG9uykgipozrc; APS- antiphospholipid syndrome; DTI-directthrombin inhibitors.-MONOGRAM OPERATOR:For questions regarding panel interpretation, please contactHalle Arrington [...] Mathews et al. J Thromb Haemost. 2009; 7(10):1295-5767.(2) Tyrone S et al. J Thromb H aemost. 2006;4(2):295-306.(3) Keith DA et al. Blood. 2007;110(9): 7078-3676. [facility] AT [facility]. ORIGINAL REPORT ON FILE IN LAB [...] Range: 58-150 :54 CBC W/Diff, Automated Comments: [facility] [address] [place], [address] Absolute Lymph 1.61 {X10_3/ul} (Normal) [...] 4.6-6.2 WBC 7.1 K/mm3 (Normal) Range: 4.4-11.0 81-Ciz-915033:54 Comprehensive Metabolic Profil Comments: [facility] [address] [place], [address] GAP 7 (Normal) Range: 5-15 [...] 7-18 GLU 98 mg/dL (Normal) Range: 70-110 47-Guv-740831:54 Lipid Profile Comments: [facility] [address] [place], [address] ; apt today VLDL 19 [...] :55 Comprehensive Metabolic Profil Comments: Test performed at:[facility] P[address]xfk[address] [facility] [place] [address] GAP 7 (Normal) Range: 5-15 [...] Comments: Please note revised CREATININE reference range aqhlnrcpn78/22/2015. BUN 15 mg/dL (Normal) Range: 7-18 GLU 103 mg/dL (Normal) Range: 70-110 :55 Hemoglobin A1c Comments: Test performed at:[facility] [address] [place] [address] HGB A1C 6.0 % (Normal) Range: 4.2-6.3 21-Sep-20148:55 Lipid Profile Comments: Test performed at:[facility] [address] [place] [address] VLDL 17 mg/dL (Normal) Range: [...] 200-240 mg/dL Borderline >240 mg/dL High Risk 14-Lrl-456480:49 Anti-dsDNA Ab Comments: ADDED PER VERBAL ORDER - FAXED ORDER TO FOLLOWSpecimen Comment: A duplicate report has been generated due to demographicSpecimen Comment: updates.Test performed at:[facility] Laboratory1 [address] [place] [address] dsDNA AB 12 {IU/mL} (Abnormal) Range: 0-9 Comments: Negative <5 Equivocal 5 - 9 Positive >9; ADDENDA: non-emergent because has apt today to discuss. 56-Ztd-094099:49 ANTINUCLEAR ANTIBODIES DIRECT Comments: Test performed at:[facility] [address] [place] [address] JOHN-DIRECT Positive (Abnormal) Comments: Performed at: - [facility] [id number] Director: Reno Yanes PhD, Phone: [phone] 17-Cwf-472968:49 CBC W/Diff, Automated Comments: Test performed at:[facility] [address] [place] [address] Absolute Lymph 1.22 {X10_3/ul} (Normal) [...] 4.6-6.2 WBC 4.9 K/mm3 (Normal) Range: 4.4-11.0 56-Cwt-240987:49 Comprehensive Metabolic Profil Comments: Test performed at:[facility] [address] [place], [place] [id number] GAP 6 (Normal) Range: 5-15 CO2 27.0 [...] 7-18 GLU 104 mg/dL (Normal) Range: 70-110 91-Tye-077050:49 CRP Comments: Test performed at:[facility] [address] [place] [address] C-REACTIVE PROT < 2.90 mg/L (Normal) Range: 0.0-3.0 Comments: C-Reactive Protein (CRP) provides useful information for thediagnosis, therapy and monitoring of inflammatory processesand associated diseases. For the evaluation of Relative Riskfor Cardiovascular Dise ase, a High Sensitivity CRP (HSCRP)should be ordered. :49 Culture, Urine Comments: Test performed at:[place] [address] CUUR See Note (Normal) Comments: Urine CultureCulture exhibits no growth.; ADDENDA: Pt has apt today, will discuss then 36-Awk-449491:49 Erythrocyte Sed Rate Comments: Test performed at:[facility] [address] [place] [address] SED RATE 21 mm/h (Abnormal) Range: 0-20 99-Sxj-799895:49 Hemoglobin A1c Comments: Test performed at:[address] [address] HGB A1C 5.8 % (Normal) Range: 4.2-6.3 17-Wpk-291814:49 Lipid Profile Comments: Test performed at:[address] [address] VLDL 8 mg/dL (Normal) Range: 5-40 LDL [...] 200-240 mg/dL Borderline >240 mg/dL High Risk 53-Ltu-271858:49 Microalb:Creat Ratio,Random UR Comments: Test performed at:[facility] [address] [facility] [place] [address] MALB:CREAT 12.2 {mg/g_CRE} (Normal) MICROALBUMIN,UR 17.2 mg/L (Normal) UR CREAT 140.0 mg/dL (Normal) 51-Kdz-114643:49 PSA,Total - Annual Screen Comments: Test performed at:[facility] [address] [place] [address] PSA,TOT SCREEN 0.47 ng/mL (Normal) Range: 0.00-4.00 Comments: This test was performed using the TPSA assay method for [employer] chemistry system. Values obtained with differentassay methods cannot be used interchangably.When changing PSA assays in the course of monitoring apatient, additional sequential testing should be carriedout to confirm baseline values. 96-Zvj-913628:49 Thyroid Stim Hormone (TSH) Comments: Test performed at:[facility] [address] [place] [address] TSH 1.60 {uIU/mL} (Normal) Range: 0.358-3.74 33-Gnd-584521:49 Urinalysis, Complete Comments: How was Urine Obtained? Urine, RandomTest performed at:[facility] [address] [place] [address] MUCUS, URINE 2+ {/hpf} (Normal) [...] (Normal) CLARITY Clear (Normal) COLOR Yellow (Normal) 17-Zxi-391694:49 Urinalysis, Complete Comments: How was Urine Obtained? Urine, RandomTest performed at:[facility] [address] [facility] [place] [address] MUCUS, URINE 0 SEEN {/hpf} [...] (Normal) CLARITY Clear (Normal) COLOR Yellow (Normal) 87-Apd-091484:07 Comprehensive Metabolic Profil Comments: Test performed at:[facility] [address] [place] [address] GAP 6 (Normal) Range: 5-15 [...] 7-18 GLU 108 mg/dL (Normal) Range: 70-110 39-Djm-706441:07 CPK Total, Creatine Kinase Comments: Test performed at:[facility] [address] [place] [address] CPK TOTAL 91 U/L (Normal) Range: 39-308 40-Uig-083178:56 Rapid Flu (22365 x 2) Influenza A Ag negative (Normal) 1-Jwv-464967:28 URINE WARREN CULTURE-MASSIEL COL Comments: PATIENT NOT FASTINGPERFORMED BY: [facility] Ejwsol5087 [facility] [id number] Information: SRC:UR Q28660 COUNT (53481) Result 1 ECV (Abnormal) Comments: Escherichia coli, [...] R Urine Final report Culture,Comprehensi (Abnormal) ve 8-Exm-906166:58 Urinalysis, Office (88187) UA - LEUKOCYTE ESTERASE Small (Normal) UA - NITRITE Negative (Normal) URINE UROBILINGN MASSIEL TIMED 2 mg/dL (Normal) UA - PROTEIN 30 mg/dL (Normal) UA - PH 6.0 (Normal) Comments: 5.5 UA - BLOOD Hemolyzed Small (Normal) UA - SPECIFIC GRAVITY 1.030 (Abnormal) UA - KETONES Negative mg/dL (Normal) UA - BILIRUBIN Small (Normal) UA - GLUCOSE Negative (Normal) 1-Zlx-236211:41 URINE WARREN CULTURE-MASSIEL COL Comments: PATIENT NOT FASTINGPERFORMED BY: Neocleus6370 [facility] [id number] Information: SRC: URINE COUNT (97055) Result 1 ECV (Abnormal) Comments: Escherichia coli, [...] R Urine Final report Culture,Comprehensi (Abnormal) ve 9-Tmx-554274:27 Urinalysis, Office (59150) UA - LEUKOCYTE ESTERASE Trace (Normal) UA - NITRITE Negative (Normal) URINE UROBILINGN MASSIEL TIMED 2 mg/dL (Normal) UA - PROTEIN Negative mg/dL (Normal) UA - PH 6.0 (Normal) UA - BLOOD Negative (Normal) UA - SPECIFIC GRAVITY 1.010 (Normal) UA - KETONES Negative mg/dL (Normal) UA - BILIRUBIN Negative (Normal) UA - GLUCOSE Negative (Normal) 5-Rky-745588:30 HgA1C , Office (74245) HgA1C , Office 5.7 % (Normal) Range: 4.6 - 7.1 1-Gcc-108737:10 URINE WARREN CULTURE-MASSIEL COL Comments: PATIENT NOT FASTINGPERFORMED BY: Neocleus6370 [facility]Care[facility] [id number] Information: SRC:UR Q33798 COUNT (49267) Result 1 NG36 (Normal) Comments: No growth [...] CHOL 155 mg/dL (Normal) Comments: <200 mg/dL Pdujmcsyy508-902 mg/dL Borderline>240 mg/dL High Risk TRIG 121 [...] (Normal) UCLAR Clear (Normal) UCOL Yellow (Normal) 00-Zqf-532802:20 CUUR URC See Note (Normal) Comments: ESBL+ [...] >=320 R (NF) indicates non-formulary drug at [facility]. Approval by Infectious DiseaseSpecialist required before non-formulary drugs may beordered and/or dispensed. 18-Ipr-216903:20 UA Comments: How was Urine Obtained? CLEAN CATCH ANGE 500 /ul (Abnormal) MICA Negative (Normal) UOB 25 /ul (Abnormal) LEESA 6.0 (Normal) Range: 5.0 - 8.0 uPROTU 30 mg/dL (Abnormal) UROBU 1 mg/dL (Abnormal) KETU Negative mg/dL (Normal) SGU 1.015 (Normal) Range: 1.002-1.030 BILIU Negative mg/dL (Normal) GLUR Normal mg/dL (Normal) UCLAR Cloudy (Normal) UCOL Yellow (Normal) 08-Cjb-564967:27 A1C 5.6 % (Normal) Range: 4.2-6.3 : B12 574 pg/mL (Normal) Range: 211-911 51-Jda-304425:27 CBC MPV 8.8 fL (Normal) Range: 6.2-12.0 [...] 4.6-6.2 WBC 6.4 K/mm3 (Normal) Range: 4.4-11.0 40-Wzh-667982:27 CUUR URC Culture exhibits no growth. (Normal) 72-Ebh-353333:27 EBGM EBNA 81.6 U/mL (Abnormal) Range: 0.0-17.9 Comments: Negative <18.0Equivocal 18.0 - 21.9Positive >21.9 tEBINT Comment (Normal) Comments: EBV Interpretation ChartInterpretation EBV-IgM VCA-IgG EBNA-IgG EA(D)-IgGEBV Seronegative - - - -Early Phase + - - -Acute Primary + + - +or-InfectionConvalescence/Past - + + +or-InfectionReactivated +or- + + +Infection+ Antibody Present - Antibody Absen tPerformed at: - [facility] [address] [id number] Director: Melquiades Hector MD, Phone: [phone] EBEAG <9.0 U/mL (Normal) Range: 0.0-8.9 Comments: [...] - 250 nmol/L)Toxicity >100 ng/mL (>250 nmol/L) 3-Ovr-881373:36 BMP Comments: Serial Specimen #1, #2 or [...] <0.05 NEGATIVE0.06 - 0.59 AT RISK OF [place]> OR = 0.60 SUGGEST [place] :47 HgA1C , Office (97871) HgA1C , Office 6.3 % (Normal) Range: [...] CHOL 147 mg/dL (Normal) Comments: <200 mg/dL Juelsamkn858-463 mg/dL Borderline>240 mg/dL High Risk :55 Rapid Flu (15426 x 2) Comments: neg Influenza A Ag negative (Normal) :02 FECAL OCCULT- Tubes sent home (75906) FECAL OCCULT HGB ASSAY, QUAL, 1-3 negative [...] (Normal) Range: 0-100 Comments: Performed at: - [address] [id number] Director: Melquiades Hector MD, Phone: [phone] IMM 55 mg/dL (Normal) Range: 40-230 DEBBY 182 mg/dL (Normal) Range: 91-414 IMG 788 mg/dL (Normal) Range: 700-1600 :39 LDH 190 U/L (Normal) Comments: Serial Specimen #1, #2 or #3? 1Is Patient Taking Vitamins or Folic Acid Supplements? N Range: 84-246 :39 PROEL Comments: Is Patient Fasting? Y [id number] Comment (Normal) Comments: Protein electrophoresis scan will follow via computer,mail, or master dyer delivery. tPROELAG 1.6 (Normal) Range: 0.7-2.0 tPROELIN [...] Supplements? N Range: 250-450 :56 CULTURE, SPUTUM (58861) Comments: PATIENT NOT FASTINGPERFORMED BY: [facility] CenterDasqed3612 [facility] [id number] Information: SRC:[facility] L43044 Result 1 RRF (Normal) Comments: Routine respiratory ashkan Lower Respiratory Culture Final report (Normal) :32 HgA1C , Office (23344) HgA1C , Office 5.9 % (Normal) Range: 4.6 - 7.1 :32 Blood Glucose , Office (27597) Blood Glucose , Office 90 (Normal) :51 [...] 4.6-6.2 WBC 7.2 {k/mm3} (Normal) Range: 4.4-11.0 96-Ikh-321040:51 CMP GAP 9 (Normal) Range: 5-15 CO2 [...] CHOL 149 mg/dL (Normal) Comments: <200 mg/dL Hibwxlmdg702-915 mg/dL Borderline>240 mg/dL High Risk :51 PSA 0.51 ng/mL (Normal) Range: 0.00-4.00 Comments: This test was performed using the TPSA assay method for the[employer] chemistry system. Values obtained with differentassay methods cannot be used interchangably.When changing PSA assays in the course of monitoring apatient, additional sequential testing should be carriedout to confirm baseline values. :59 MISC (Normal) Comments: TEST RESULT LIMITSAntinuclear Antibodies, IFA NegativeNegative <1:80Borderline 1:80Positive >1:80 TESTING PERFORMED AT [facility]. ORIGINAL REPORT ONFILE IN LAB [...] CHOL 154 mg/dL (Normal) Comments: <200 mg/dL Wasijfsnt437-680 mg/dL Borderline>240 mg/dL High Risk HDL 64 [...] YEAST OR MOLD ISOLATED AFTER 4 WEEKS. 77-Fxm-165910:11 CUSP RESPC See Note (Normal) Comments: No [...] YEAST OR MOLD ISOLATED AFTER 4 WEEKS. 88-Dzc-578286:21 AFBCS tAFMERVIN See Note Comments: TESTING PERFORMED AT [facility]. ORIGINAL REPORT ONFILE IN LAB CONTAINS ADDITIONAL TEST SITE INFORMATION. (Normal) CULTURE, ACID FAST FINAL CULTURE REPORT TO FOLLOW IN 6 WEEKS. EverF See Note Comments: TESTING PERFORMED AT [facility]. ORIGINAL REPORT ONFILE IN LAB CONTAINS ADDITIONAL TEST SITE INFORMATION. (Normal) ACID FAST BACILLUS SMEARAcid Fast Smear from Concentrated Specimen :Negative 05-Ibo-360132:21 CUFST FUNST See Note Comments: TESTING PERFORMED [...] [facility]. ay REPORT -2 (Normal) 30 :0 0 12 AFBSTN SEE Comments: PATIENT BROUGHT SPECIMEN IN ON 07/11/12 - PATHOLOGY Comments: Specimen submitted to Anatomical Pathology Department fortesting. ay REPORT -2 (Normal) 01 39 :0 0 47-Tmk-713262:05 WARREN CULTURE-OTHER (72385) Comments: PATIENT NOT FASTINGPERFORMED BY: BOBBI [facility] Itdobv7675 [facility] [id number] Information: SRC: THROAT Result 1 RRF (Normal) Comments: Routine respiratory ashkan Upper Respiratory Culture Final report (Normal) 09-Use-315316:23 Rapid Strep Test, Office (26898) Rapid Strep Test, Office Negative (Normal) 8-Fku-312418:15 CBCMD RBCM NORM C+C {NORMAL} (Normal) PE [...] 4.6-6.2 WBC 8.3 K/mm3 (Normal) Range: 4.4-11.0 5-Snv-556478:15 CMP GAP 10 (Normal) Range: 5-15 CO2 [...] 7-18 GLU 81 mg/dL (Normal) Range: 70-110 5-Xwf-808711:15 LIPID VLDL 12 mg/dL (Normal) Range: 5-40 [...] Alvarado M.D.January 27, 2012 at 2:39:03 PM [id number] Signed GP/GP If you are the refe rring physician and would like to consult with theradiologist who provided this interpretation, please contact Itzel Linares at [phone]. If this radiologist is unavailable, youwill be dir ected to another radiologist to assist. If you are a patient with a question regarding this report, pleasecontactyour referring physician directly. Professional Interpretation Provided By: In[employer], Phone , These documents contain legally protected [...] Schwarz D.O.January 26, 2012 at 8:55:02 PM [id number] Signed BE/B E If you are the referring physician and would like to consult with theradiologist who provided this interpretation, please contact Yogi Schwarz D.O. at [phone]. If this radiologist is unavailable, yo u will bedirected to another radiologist to assist. If you are a patient with a question regarding this report, pleasecontactyour referring physician directly. Professional Interpretation Provided By: [employer], Phone , These documents contain legally protected [...] on 01/26/122099 Sign by: Yogi Schwarz MD 21-Mln-258818:13 CUSP RESPC See Note (Normal) Comments: No [...] CHAINS AND CLUSTERS :56 HgA1C , Office (36027) HgA1C , Office 6.1 % (Normal) Range: 4.6 - 7.1 77-Pmr-296865:56 Blood Glucose , Office (72597) Blood Glucose , Office 116 (Normal) : [...] mg/dL suggests IMPAIRED HOMEOSTASIS per A.D.A. criteria. 02-Ool-56993:01 TSH 1.98 {uIU/mL} (Normal) Range: 0.358-3.74 44-Juw-988977:25 CMP GAP 7 (Normal) Range: 5-15 CO2 [...] 7-18 GLU 107 mg/dL (Normal) Range: 70-110 89-Mco-303537:25 LIPID VLDL 12 mg/dL (Normal) Range: 5-40 [...] 200-240 mg/dL Borderline >240 mg/dL High Risk 94-Ncw-477356:25 MIACRE tMICROCREAT 6.7 {mg/g_CRE} (Normal) MIALB 5.5 mg/L (Normal) CREU 81.1 mg/dL (Normal) :25 PSA 0.50 ng/mL (Normal) Range: 0.00-4.00 Comments: NEW TEST ASSAY METHOD JULY 12, 2011This test was performed using the TPSA assay method for the[facility] chemistry system. Values obtained with differentassay methods [...] UCOL YELLOW (Normal) :44 HgA1C , Office (61221) HgA1C , Office 6.3 % (Normal) Range: 4.6 - 7.1 :44 Blood Glucose , Office (64872) Blood Glucose , Office 114 (Normal) :13 HgA1C , Office (45567) HgA1C , Office 6.2 % (Normal) Range: 4.6 - 7.1 :13 Blood Glucose , Office (16139) Blood Glucose , Office 100 (Normal) :55 HgA1C , Office (83530) HgA1C , Office 5.8 % (Normal) Range: 4.6 - 7.1 :55 Blood Glucose , Office (31072) Blood Glucose , Office 85 (Normal) :51 WARREN CULTURE-OTHER (70700) Comments: PATIENT NOT FASTINGPERFORMED BY: [facility] Amjoly3824 [facility] [id number] Information: SRC:THRT [id number] Result 1 Yeast isolated. (Normal) Comments: Heavy growthRequest for further identification must be madewithin 1 week. Upper Respiratory Culture Final report (Normal) :14 Rapid Strep Test, Office (07990) Rapid Strep Test, Office Negative (Normal) :24 [...] serialsampling is recomme nded. TESTING PERFORMED AT [facility]. ORIGINAL REPORT ON FILE IN LAB CONTAINS [...] cells for the productionof interferon gamma.Performed at: [address] [id number] Director: Joseph Velez MD, Phone: [phone] QFT AG - NIL 0 {IU/mL} (Normal) [...] 7-18 GLU 100 mg/dL (Normal) Range: 70-110 21-Srh-45313:03 COMPLETE UA MUCUS, URINE 2+ {/hpf} (Normal) [...] >240 mg/dL High Risk :03 VIT D,25 98010 38.0 ng/mL (Normal) Comments: appt 03-08-10 Range: 32.0-100.0 Comments: Effective January 11, 2011 Vitamin D, 25-Hydroxy reference intervals will be changing to 30-100. .Recent studies consider the lower li chilo of 32.0 ng/mL to be athreshold for optimal health.Mark LUDWIG. J Nutr. 2004;135(2):317-22.Performed at: [address] [id number] Director: Lakshmi Pino MD, Phone: [phone] VITAMIN B12 696 pg/mL (Normal) Range: 254-1320 Comments: There is a low frequency possibility that high titers ofintrinsic blocking antibodies may not be completely inactivated during the reaction pretreatment stepof this testing method. If test results are i n conflictwith the clinical diagnosis, patient should be testedfor the presence of intrinsic factor blocking antibodies. 73-Bsm-713230:05 Rapid Strep Test, Office (33714) Rapid Strep Test, Office Negative (Normal) :00 CULTURE, THROAT See Note (Normal) Comments: Normal throat ashkan isolated. No beta-hemolyticstreptococcus isolated. 31-Epo-18501:00 CHEST WITHOUT CONTRAST Radiology Report See Note [...] 10/11/10 0244 Sign by: Clarke Butt MD 07-Uvy-142849:58 GALLBLADDER Radiology Report See Note (Normal) Comments: PROCEDURE: ABDOMINAL ULTRASOUND - RIGHT UPPER QUADRANT REASON FOR VISIT: Male, 60 years old. Abdominal pain. TECHNIQUE: Ultrasound evaluation of the right upper quadrant [facility]per[facility] real-morena e ultrasonography and static [...] 10/08/10 1402 Sign by: Jake Alvarado MD 57-Bnn-41270:00 CULTURE, URINE URINE CULTURE See Note {CFU/mL} (Normal) Comments: COLONY COUNT <1000 ORGANISM 1: MIXED GRAM POSITIVE ORGANISMS 01-Uqg-966943:19 Urinalysis, Office (14228) UA - BILIRUBIN Negative (Normal) UA - BLOOD Non Hemolyzed Trace (Normal) UA - GLUCOSE Negative (Normal) UA - KETONES Negative mg/dL (Normal) UA - LEUKOCYTE ESTERASE Negative (Normal) UA - NITRITE Negative (Normal) UA - PH 7.0 (Normal) UA - PROTEIN Negative mg/dL (Normal) UA - SPECIFIC GRAVITY 1.010 (Normal) URINE UROBILINGN MASSIEL TIMED Normal mg/dL (Normal) 13-Kng-06957:00 ABDOMEN/PELVIS WITHOUT CONT Radiology Report See Note [...] Cosmo Mahmood MD :11 HgA1C , Office (42520) HgA1C , Office 6.2 % (Normal) Range: 4.6 - 7.1 71-Sqy-387142:11 Blood Glucose , Office (33472) Blood Glucose , Office 90 (Normal) :28 [...] mg/dL High Risk :53 HgA1C , Office (63361) HgA1C , Office 6.4 % (Normal) Range: 4.6 - 7.1 :53 Blood Glucose , Office (64521) Blood Glucose , Office 108 (Normal) :39 CULTURE, URINE URINE CULTURE Culture exhibits no growth. (Normal) :54 Urinalysis, Office (72789) UA - BILIRUBIN Negative (Normal) UA - BLOOD Negative (Normal) UA - GLUCOSE Negative (Normal) UA - KETONES Negative mg/dL (Normal) UA - LEUKOCYTE ESTERASE Negative (Normal) UA - NITRITE Negative (Normal) UA - PH 7.0 (Normal) UA - PROTEIN Negative mg/dL (Normal) UA - SPECIFIC GRAVITY 1.010 (Normal) URINE UROBILINGN MASSIEL TIMED Normal mg/dL (Normal) :37 HgA1C , Office (06551) HgA1C , Office 6.1 % (Normal) Range: 4.6 - 7.1 08-Pzt-825165:37 Blood Glucose , Office (00092) Blood Glucose , Office 96 (Normal) :46 [...] 7-18 GLU 105 mg/dL (Normal) Range: 70-110 03-Whz-157496:46 LIPID VLDL 10 mg/dL (Normal) Range: 5-40 [...] 200-240 mg/dL Borderline >240 mg/dL High Risk 72-Fwe-995752:46 MICROALB:CRE UR MALB:CREAT 4.8 {mg/g_CRE} (Normal) MICROALBUMIN,UR 8.1 mg/L (Normal) UR CREAT 166.2 mg/dL (Normal) 81-Tdm-587875:46 PSA, SCREEN 0.5 ng/mL (Normal) Range: 0.0-4.0 :22 HgA1C , Office (72529) HgA1C , Office 6.1 % (Normal) Range: 4.6 - 7.1 :22 Blood Glucose , Office (60668) Blood Glucose , Office 123 (Normal) :47 HgA1C , Office (40959) HgA1C , Office 6.3 % (Normal) Range: 4.6 - 7.1 :47 Blood Glucose , Office (48683) Blood Glucose , Office 103 (Normal) :05 [...] CHOL 142 mg/dL (Normal) Comments: <200 mg/dL Etqtijrvm737-295 mg/dL Borderline>240 mg/dL High Risk TRIG 35 mg/dL (Normal) Comments: Serum Triglycerides Reference IntervalNormal <150 mg/dLBorderline high 150 - 199 mg/dLHigh 200 - 499 mg/ dLVery High > or = 500 mg/dL 0-Yzn-088588:24 HgA1C , Office (24181) HgA1C , Office 6.2 % (Normal) Range: 4.6 - 7.1 :23 Blood Glucose , Office (84204) Blood Glucose , Office 96 (Normal) 11-Gci-707450:07 GASTRIC EMPTYING STUDY Radiology Report See Note (Normal) Comments: Exam Number: [id number] GASTRIC EMPTYING STUDY A gastric emptying study was performed. The patient ingested 1 mCi abAo69k Sulfur colloid with oatmeal. HISTORYThis is a 58-year-old male patie nt with hist ory of bloating andgastroesophageal reflux. FINDINGSAt 1 hour, there is complete emptying of the stomach of [employer]. This is a normal study. IMPRESSIONNormal examination. There is no e vidence of gastric retention. Reported By: WILFREDO ALVARADO 5-Bzj-282960:33 HgA1C , Office (30223) HgA1C , Office 5.9 % (Normal) Range: 4.6 - 7.1 0-Blf-811295:33 Blood Glucose , Office (21830) Blood Glucose , Office 111 (Normal) 24-Dec-20086:08 [...] Range: 0.0-4.0 :46 Blood Glucose , Office (76630) Blood Glucose , Office 156 (Normal) :46 HgA1C , Office (61250) HgA1C , Office 5.8 % (Normal) Range: 4.6 - 7.1 :12 HgA1C , Office (63277) Comments: done km HgA1C , Office 5.8 % (Normal) Range: 4.6 - 7.1 :12 Blood Glucose , Office (73399) Comments: done Blood Glucose , Office 99 [...] mg/dL (Normal) Range: 200-370 Comments: Performed At: [address] [id number] Blood Glucose , Office (32438) Blood Glucose , Office 92 (Normal) :44 HgA1C , Office (37724) HgA1C , Office 5.7 % (Normal) Range: 4.6 - 7.1 :40 GLU GTT-2 HOUR 191 mg/dL (Abnormal) Comments: 2HR GTT GLU 2 HR GLU GTT-2 HOUR from 216:[id number]. Range: 70-120 :20 GLU GTT-1 HOUR 178 mg/dL (Abnormal) Comments: 2HR GTT GLU 1 HR GLU GTT-1 HOUR from 216:[id number]. Range: 120-170 :40 GLU GTT-30 min. 183 mg/dL (Abnormal) Comments: 2HR GTT GLU 1/2 HR GLU GTT-30 min. from 216:[id number]. Range: 110-170 :01 GLU GTT-FASTING 106 mg/dL (Normal) Comments: 2HR GTT FASTING GLU GTT-FASTING from 216:[id number]. Range: 70-110 Comments: GLUCOSE TOLERANCE TEST Reference Interval Non- Adults Fasting 70 - 110 30 minutes 110 - 170 1 hour 120 - 170 2 hour 70 - 120 3 hour 70 - 110 4 hour 70 - 110 5 hour 70 - 110 17-Bys-42418:12 CBCD,SMEAR DIFF CELLS COUNTED 100 (Normal) EOS [...] 47-70 WBC 8.2 K/mm3 (Normal) Range: 4.4-11.0 37-Ift-37045:12 COMP METABOLIC A/G 1.3 {RATIO} (Normal) Range: [...] T PROT 7.0 g/dL (Normal) Range: 6.4-8.2 42-Nxf-616442:12 LIPID CHOL 154 mg/dL (Normal) Comments: <200 [...] mg/dL VLDL 15 mg/dL (Normal) Range: 5-40 25-Iol-193635:12 PSA,TOT SCREEN 0.96 ng/mL (Normal) Range: 0.00-4.00 Comments: This test was performed using the TPSA method for theDimension chemistry system.Values obtained with different assay methods cannot be usedinterchangably.When changing PSA assays in the course of monito ring apatient, additional sequential testing should be carriedout to confirm baseline values. 75-Cil-847688:12 ROUTINE UA BILIRUBIN URINE SeeNote (Normal) Comments: [...] 0.2 EU/dl (Normal) Range: 0.2 - 1.0 81-Nmo-818761:12 TSH 1.38 {uIU/mL} (Normal) Range: 0.34-4.82 52-Wqc-00997:03 CHEST WITH CONTRAST Radiology Report See Note (Normal) Comments: Exam Number: [id number] CHEST CT WITH INTRAVENOUS CONTRAST. REASON FOR [...] No growth in 5 6:14 days. (Normal) 0-Goy-863448:14 CBCD,SMEAR DIFF BAND 1 % (Normal) Range: [...] T PROT 6.3 g/dL (Abnormal) Range: 6.4-8.2 13-Dop-539501:19 EBVIgG/M 590963 EB-EA IgG 34561 79 AU/mL (Normal) Range: 0-99 Comments: Negative <100 Equivocal 100 - 120 Positive >120 EB-NAg [id number] 656 AU/mL (Abnormal) Range: 0-99 Comments: Negative <100 Equivocal 100 - 120 Positive >120 EB-VCA [id number] 2296 AU/mL (Abnormal) Range: 0-99 Comments: Negative <100 Equivocal 100 - 120 Positive >120 EB-VCA [id number] 9 AU/mL (Normal) Range: 0-99 Comments: Negative [...] + Antibody Present - Antibody AbsentPerformed At: [facility] [place], [place] [id number] 39-Oee-295060:00 CULTURE, THROAT See Note (Normal) Comments: Normal throat ashkan isolated. No beta-hemolyticstreptococcus isolated. 16-Yhc-423010:35 Rapid Strep Test, Office (37222) Rapid Strep Test, Office Negative (Normal) 46-Mgn-97818:40 TISS/FLUID P-BX/CY (Normal) Comments: OPERATION Biopsy, testicle, [...] SJ:rin 11/09/06 TC:5 REPORT SIGNED: PAMELLA SON 11/10/0607-Nov-200675-Ekh-395644:55 ALDOLASE 2030 2.3 U/L (Normal) Range: 1.2-7.6 Comments: Performed At: [address] [id number] At: [address] [id number] 31-Bbx-088215:55 JOHN-D [id number] JOHN-DIRECT 9 U/mL (Normal) Range: 0-99 Comments: Negative <100 Equivocal 100 - 120 Positive >120 60-Bat-072920:55 C-REACTIVE PROT 0.52 mg/L (Normal) Range: 0.0-6.0 Comments: Test performed using the Dimension C-Reactive ProteinExtended Range assay method. This assay meets the AHA/CDC 2003 recommendations fordetermining patients at high risk for cardiovasculardisease. Reference: High risk CRP >3.0 mg/L 86-Kay-783156:55 CBC HCT 42.8 % (Normal) Range: 40-54 [...] 4.9 {IU/mL} (Normal) Range: 0.0-13.9 :55 TESTOST [id number] TESTOSTER %FREE 2.87 % (Normal) Range: 1.50-4.20 [...] Report See Note (Normal) Comments: Exam Number: [id number] TESTICULAR ULTRASOUND HISTORYTesticular swelling. High resolution real [...] Reported By: MAYELIN DE LA FUENTE M.D. 5-Lqy-491149:45 HIP, MIN 2 VIEWS Radiology Report See Note (Normal) Comments: Exam Number: [id number] FIVE VIEW LUMBAR SPINE AP, LATERAL, BOTH [...] degenerative changes. Reported By: REMIGIO PURCELL M.D. 7-Afs-814388:45 L/S SPINE,MIN 4 VIEWS Radiology Report See Note (Normal) Comments: Exam Number: [id number] FIVE VIEW LUMBAR SPINE AP, LATERAL, BOTH [...] degenerative changes. Reported By: REMIGIO PURCELL M.D. 0-Eyg-840601:44 HIP, MIN 2 VIEWS Radiology Report See Note (Normal) Comments: Exam Number: [id number] FIVE VIEW LUMBAR SPINE AP, LATERAL, BOTH [...] degenerative changes. Reported By: REMIGIO PURCELL M.D. 42-Egw-762131:43 CHEST, PA AND LATERAL Radiology Report See Note (Normal) Comments: Exam Number: [id number] PA AND LATERAL CHEST HISTORYShortness of breath. [...] 15, 2005. Reported By: EDVIN MARIE M.D. 63-Fdb-523513:25 ALDOLASE 2030 3.0 U/L (Normal) Range: 1.2-7.6 Comments: Performed At: [facility] [place], [place] [id number] 91-Yzv-033283:25 JOHN-D [id number] JOHN-DIRECT 46 U/mL (Normal) Range: 0-99 Comments: Negative <100 Equivocal 100 - 120 Positive >120 92-Zii-154331:25 C-REACTIVE PROT 1.07 mg/L (Normal) Range: 0.0-6.0 [...] morphology Planned Observations CBC W/AUTO DIFF WBC (25165)Indication: Hypertension, benign On: :51 Request METABOLIC PANEL, COMPREHENSIVE (33415)Indication: Hypertension, benign On: :51 Request LIPID PANEL (49172)Indication: Other hyperlipidemia On: :50 Request CULTURE,FUNGUS W/STAIN 807182 (99795)Indication: Bronchiectasis On: :59 Request CULTURE, SPUTUM (21308)Indication: Moderate persistent asthma without complication On: :21 Request HGB A1C (67782)Indication: Abnormal glucose tolerance test On: : Request CBC with auto diff (67384)Indication: Abnormal glucose tolerance test On: : Request METABOLIC PANEL, COMPREHENSIVE (66277)Indication: Abnormal glucose tolerance test On: :10 Request LIPID PANEL (09758)Indication: Other hyperlipidemia On: :10 Request PSA (PROSTATE SPECIFIC ANTIGEN) (V76.44)Indication: Encounter for screening for malignant neoplasm of prostate (Renamed from Screening for prostate cancer) On: :09 Request METABOLIC PANEL, COMPREHENSIVE (22558)Indication: Essential hypertension On: 8-Uhu-462669:58 Request CBC with auto diff (84233)Indication: Hypertension, benign On: :53 Request METABOLIC PANEL, COMPREHENSIVE (66057)Indication: Abnormal glucose tolerance test On: :52 Request MICROALBUMIN: CREATININE RATIO (47943) AND (82419)Indication: Abnormal glucose tolerance test On: :52 Request HGB A1C (82185)Indication: Abnormal glucose tolerance test On: :52 Request LIPID PANEL (34043)Indication: Other hyperlipidemia On: :52 Request LIPID PANEL (76619)Indication: Other hyperlipidemia On: 6-Uxy-789152:30 Request CBC W/AUTO DIFF WBC (44338)Indication: Hypertension, benign On: :29 Request METABOLIC PANEL, COMPREHENSIVE (15711)Indication: Hypertension, benign On: :29 Request IMMUNOGLOBULIN G (IgG) (42332)Indication: Abnormal blood chemistry On: :02 Request Comments: PLEASE DRAW WITH OTHER LABS IN 2016 serum free light chains (58701)Indication: Abnormal blood chemistry On: :40 Request serum immunofixation (04890)Indication: Abnormal blood chemistry On: :40 Request PSA (PROSTATE SPECIFIC ANTIGEN) (V76.44)Indication: Encounter for screening for malignant neoplasm of prostate (Renamed from Screening for prostate cancer) On: 40 Request LIPID PANEL (39865)Indication: Other hyperlipidemia On: :40 Request CBC with auto diff (28290)Indication: Abnormal glucose tolerance test On: :39 Request METABOLIC PANEL, COMPREHENSIVE (61989)Indication: Abnormal glucose tolerance test On: :39 Request MICROALBUMIN: CREATININE RATIO (98548) AND (75763)Indication: Abnormal glucose tolerance test On: :39 Request HGB A1C (78050)Indication: Abnormal glucose tolerance test On: :39 Request LIPID PANEL (45049)Indication: Other hyperlipidemia On: 0-Ffs-753452:58 Request urine immunofixation (32054)Indication: Abnormal blood chemistry On: :34 Request serum immunofixation (34391)Indication: Abnormal blood chemistry On: :34 Request MICROALBUMIN: CREATININE RATIO (98057) AND (51743)Indication: Abnormal glucose tolerance test On: 82-Trc-025769:32 Request HGB A1C (60751)Indication: Abnormal glucose tolerance test On: 34-Raa-099947:32 Request CBC W/AUTO DIFF WBC (09856)Indication: Hypertension, benign On: :30 Request METABOLIC PANEL, COMPREHENSIVE (43918)Indication: Hypertension, benign On: :30 Request LIPID PANEL (96303)Indication: Other hyperlipidemia On: :30 Request LIPOPROTEIN, BLD, BY NMR (43040)Indication: Other hyperlipidemia On: :14 Request CBC WITH MANUAL DIFF (89583)Indication: Essential hypertension On: 57-Bpz-989384:14 Request Metabolic Panel, Comprehensive (68230)Indication: Essential hypertension On: :14 Request CBC W/AUTO DIFF WBC (82330)Indication: Abnormal glucose tolerance test On: : Request LIPOPROTEIN, BLD, BY NMR (55877)Indication: Other hyperlipidemia On: :03 Request METABOLIC PANEL, COMPREHENSIVE (66028)Indication: Abnormal glucose tolerance test On: :02 Request Anti-TPO Antibody (71357)Indication: Abnormal blood chemistry On: :57 Request T4, FREE (THYROXINE) (33054)Indication: Abnormal blood chemistry On: :57 Request T3, FREE (TRIDOTHYRONINE) (77624)Indication: Abnormal blood chemistry On: :57 Request TSH (89965)Indication: Abnormal blood chemistry On: :56 Request P-ANCA & C-ANCA (ANCA PROFILE) 53282 x2 and 98458 q8Kdujxnbogh: Acute recurrent maxillary sinusitis On: :26 Request JOHN (ANTINUCLEAR ANTIBODY) (16611)Indication: Abnormal blood chemistry On: :56 Request RHEUMATOID FACTOR-QUANT (35160)Indication: Abnormal blood chemistry On: :56 Request SED RATE ERYTHROCYTE (79684)Indication: Abnormal blood chemistry On: :56 Request C-REACTIVE PROTEIN (96706)Indication: Abnormal blood chemistry On: :56 Request CBC with auto diff (53142)Indication: Hypertension, benign On: :10 Request MICROALBUMIN: CREATININE RATIO (76787) AND (25658)Indication: Abnormal glucose tolerance test On: : Request METABOLIC PANEL, COMPREHENSIVE (47057)Indication: Abnormal glucose tolerance test On: : Request HGB A1C (20652)Indication: Abnormal glucose tolerance test On: : Request METABOLIC PANEL, COMPREHENSIVE (56475)Indication: Hypertension, benign On: : Request LIPID PANEL (35361)Indication: Other hyperlipidemia On: : Request PSA (PROSTATE SPECIFIC ANTIGEN) (V76.44)Indication: Encounter for screening for malignant neoplasm of prostate (Renamed from Screening for prostate cancer) On: 20-Xrj-111480:59 Request Factor 2 (Prothrombin) Gene Mutation (55485)Indication: Other symptoms involving cardiovascular system On: 7-Wnf-591948:13 Request MICROALBUMIN: CREATININE RATIO (45710) AND (02982)Indication: Abnormal glucose tolerance test On: :53 Request HGB A1C (40642)Indication: Abnormal glucose tolerance test On: :53 Request LIPID PANEL (50206)Indication: Other hyperlipidemia On: :53 Request CBC W/AUTO DIFF WBC (50250)Indication: Hypertension, benign On: :53 Request METABOLIC PANEL, COMPREHENSIVE (20453)Indication: Hypertension, benign On: :53 Request CBC with auto diff (80115)Indication: Hypertension, benign On: : Request METABOLIC PANEL, COMPREHENSIVE (04653)Indication: Hypertension, benign On: 7-Qqv-047769:25 Request LIPID PANEL (91454)Indication: Other hyperlipidemia On: 4-Hzt-246253:25 Request Factor V Leiden (70780)Indication: Deep vein thrombosis of lower extremity On: :24 Request CLOTTING FACTOR II (65250)Indication: Deep vein thrombosis of lower extremity On: :24 Request ANTITHROMBIN III ACTIVTY (60294)Indication: Deep vein thrombosis of lower extremity On: :24 Request Antiphospholipid atb (14469)Indication: Deep vein thrombosis of lower extremity On: :24 Request Protein C Profile (50526)Indication: Deep vein thrombosis of lower extremity On: :24 Request Protein S Profile (73960)Indication: Deep vein thrombosis of lower extremity On: :24 Request Hemoglobin Glyclated (HGB A1C) (79898)Indication: Abnormal glucose tolerance test On: 22-Axp-790082:23 Request CBC W/AUTO DIFF WBC (98363)Indication: Abnormal glucose tolerance test On: :43 Request MICROALBUMIN: CREATININE RATIO (05265) AND (93709)Indication: Abnormal glucose tolerance test On: :43 Request METABOLIC PANEL, COMPREHENSIVE (24389)Indication: Abnormal glucose tolerance test On: : Request LIPID PANEL (74293)Indication: Other hyperlipidemia On: :43 Request DNA ANTIBODY-NATV/DBL ST (28769)Indication: Heart disease, unspecified On: 63-Wky-120200:02 Request METABOLIC PANEL, COMPREHENSIVE (01715)Indication: Essential hypertension On: 74-Vgg-318163:31 Request LIPID PANEL (25781)Indication: Other hyperlipidemia On: 69-Who-335140:31 Request Hemoglobin Glyclated (HGB A1C) (95980)Indication: Abnormal glucose tolerance test On: 83-Rds-899961:31 Request PSA (PROSTATE SPECIFIC ANTIGEN) (V76.44)Indication: Benign prostatic hyperplasia with lower urinary tract symptoms, unspecified morphology On: 67-Pvd-331846:52 Request MICROALBUMIN: CREATININE RATIO (79562) AND (03351)Indication: Abnormal glucose tolerance test On: 42-Uhg-077554:50 Request Hemoglobin Glyclated (HGB A1C) (58122)Indication: Abnormal glucose tolerance test On: :50 Request URINE WARREN CULTURE (MASSIEL COL COUNT) (26367)Indication: Muscle weakness On: :48 Request URINALYSIS, W/ MICRO (45807)Indication: Muscle weakness On: :48 Request CBC with auto diff (33781)Indication: Muscle weakness On: :48 Request JOHN (ANTINUCLEAR ANTIBODY) (62099)Indication: Muscle weakness On: :48 Request SED RATE ERYTHROCYTE (57380)Indication: Muscle weakness On: :48 Request C-REACTIVE PROTEIN (35603)Indication: Muscle weakness On: :48 Request TSH (03773)Indication: Muscle weakness On: 71-Snx-528676:48 Request LIPID PANEL (75685)Indication: Other hyperlipidemia On: 16-Imq-388063:47 Request METABOLIC PANEL, COMPREHENSIVE (54200)Indication: Other hyperlipidemia On: 62-Lrk-910856:46 Request URINE WARREN CULTURE-MASSIEL COL COUNT (40393)Indication: Other abnormal finding of urine On: 1-Frx-566529:42 Request LIPID PANEL (65058)Indication: Other hyperlipidemia On: :44 Request CBC W/AUTO DIFF WBC (98894)Indication: Essential hypertension On: :44 Request METABOLIC PANEL, COMPREHENSIVE (34704)Indication: Essential hypertension On: :44 Request URINE WARREN CULTURE-MASSIEL COL COUNT (73902)Indication: Other abnormal finding of urine On: 5-Sfk-164104:00 Request Comments: ADD ON MICROALBUMIN: CREATININE RATIO (24227) AND (55649)Indication: Essential hypertension On: : Request URINALYSIS, W/ MICRO (94621)Indication: Essential hypertension On: 3-Gwn-291166:02 Request METABOLIC PANEL, COMPREHENSIVE (07501)Indication: Essential hypertension On: 8-Zvr-780746:02 Request LIPID PANEL (70328)Indication: Other hyperlipidemia On: :02 Request CBC WITH MANUAL DIFF (83309)Indication: Iron deficiency On: 0-Zbd-187950:02 Request URINE WARREN CULTURE (MASSIEL COL COUNT) (84622)Indication: Fatigue On: 75-Nke-436743:46 Request MICROALBUMIN: CREATININE RATIO (75370) AND (08579)Indication: Abnormal glucose tolerance test On: :46 Request Hemoglobin Glyclated (HGB A1C) (71641)Indication: Abnormal glucose tolerance test On: 06-Nei-230269:46 Request IRON BINDING CAPACITY (TIBC) (80338)Indication: Anemia, unspecified On: :42 Request FERRITIN (29686)Indication: Anemia, unspecified On: 44-Nye-289182:42 Request IRON (38312)Indication: Anemia, unspecified On: 07-Ins-632851:42 Request VITAMIN B-12 (CYANOCOBALAMIN) (50127)Indication: Fatigue On: Request CBC (AUTO) (30904)Indication: Fatigue On: Request TSH (26916)Indication: Fatigue On: Request Vitamin D Hydroxy (13284)Indication: Fatigue On: Request EBV Panel (06873)Indication: Fatigue On: Request FERRITIN (69062)Indication: Anemia, unspecified On: Request IRON (46436)Indication: Anemia, unspecified On: Request MICROALBUMIN: CREATININE RATIO (69862) AND (47793)Indication: Abnormal glucose tolerance test On: Request METABOLIC PANEL, COMPREHENSIVE (14385)Indication: Abnormal glucose tolerance test On: Request LIPID PANEL (41998)Indication: Other hyperlipidemia On: Request CBC WITH MANUAL DIFF (60602)Indication: Anemia, unspecified On: Request FERRITIN (99817)Indication: Anemia, unspecified On: :15 Request IRON (50311)Indication: Anemia, unspecified On: Request LIPID PANEL (51657)Indication: Essential hypertension On: :14 Request METABOLIC PANEL, COMPREHENSIVE (23611)Indication: Essential hypertension On: : Request CBC WITH MANUAL DIFF (71897)Indication: Essential hypertension On: 14 Request UPEP (58432)Indication: BRONCHITIS, NOT SPECIFIED ACUTE OR CHRONIC (490.) On: :37 Request Protein Electrophoresis, Serum (SPEP) (57565)Indication: BRONCHITIS, NOT SPECIFIED ACUTE OR CHRONIC (490.) On: Request IGA/IGD/IGG/IGM-EACH (55997)Indication: BRONCHITIS, NOT SPECIFIED ACUTE OR CHRONIC (490.) On: : Request URINALYSIS, W/ MICRO (46075)Indication: Anemia, unspecified On: Request CBC WITH MANUAL DIFF (26952)Indication: Anemia, unspecified On: : Request FOLIC ACID SERUM (06384)Indication: Anemia, unspecified On: Request VITAMIN B-12 (CYANOCOBALAMIN) (42051)Indication: Anemia, unspecified On: : Request RETICULOCYTE COUNT MANUL (02274)Indication: Anemia, unspecified On: Request LDH (LD) (LACTATE DEHYDROGENASE) (49276)Indication: Anemia, unspecified On: Request IRON BINDING CAPACITY (TIBC) (43385)Indication: Anemia, unspecified On: Request IRON (77295)Indication: Anemia, unspecified On: Request FERRITIN (96431)Indication: Anemia, unspecified On: Request PSA (PROSTATE SPECIFIC ANTIGEN) (V76.44)Indication: Screening for prostate cancer On: :36 Request LIPID PANEL (38128)Indication: Abnormal glucose tolerance test On: :35 Request CBC WITH MANUAL DIFF (07675)Indication: Hypertension, benign On: 35 Request METABOLIC PANEL, COMPREHENSIVE (63569)Indication: Hypertension, benign On: 35 Request SED RATE ERYTHROCYTE (15278)Indication: Rash On: :22 Request C-REACTIVE PROTEIN (01111)Indication: Rash On: :22 Request RHEUMATOID FACTOR-QUANT (61574)Indication: Rash On: :22 Request JOHN (ANTINUCLEAR ANTIBODY) (30831)Indication: Rash On: 97-Itx-463044:22 Request CULTURE, SPUTUM (87885)Indication: Cough On: 80-Tqr-804979:20 Request HgA1C , Office (32821)Indication: Abnormal glucose tolerance test On: 46-Mtq-015625:57 Request CULTURE, SPUTUM (22835)Indication: Cough On: 88-Tud-769628:39 Request ACID FAST STAIN (AFB) (65796)Indication: Cough On: 38-Vgx-760121:38 Request TSH (82326)Indication: Other hyperlipidemia On: :21 Request URINALYSIS, W/ MICRO (98423)Indication: Essential hypertension On: : Request CBC WITH MANUAL DIFF (89679)Indication: Abnormal glucose tolerance test On: :21 Request METABOLIC PANEL, COMPREHENSIVE (58024)Indication: Abnormal glucose tolerance test On: :21 Request MICROALBUMIN: CREATININE RATIO (53862) AND (85268)Indication: Abnormal glucose tolerance test On: :21 Request LIPID PANEL (36185)Indication: Other hyperlipidemia On: :20 Request CBC WITH MANUAL DIFF (18624)Indication: Abnormal glucose tolerance test On: : Request METABOLIC PANEL, COMPREHENSIVE (58216)Indication: Abnormal glucose tolerance test On: :26 Request CULTURE, SPUTUM (73976)Indication: Cough On: 63-Clr-509032:18 Request LIPID PANEL (35001)Indication: Other hyperlipidemia On: 53-Lpv-529574:14 Request TSH (80262)Indication: Swelling of limb On: 86-Ctn-23616:58 Request METABOLIC PANEL, COMPREHENSIVE (47792)Indication: Swelling of limb On: :58 Request CBC WITH MANUAL DIFF (58164)Indication: Swelling of limb On: :58 Request BNTP (20604)Indication: Swelling of limb On: :58 Request CULTURE, SPUTUM (83660)Indication: Cough On: 59-Hfb-53045:56 Request PSA (PROSTATE SPECIFIC ANTIGEN) (V76.44)Indication: Screening for prostate cancer On: 30-Ass-105670:19 Request URINALYSIS, W/ MICRO (32607)Indication: Abnormal glucose tolerance test On: 56-Ycr-975269:18 Request MICROALBUMIN: CREATININE RATIO (13714) AND (65241)Indication: Abnormal glucose tolerance test On: 13-Vhv-507140:18 Request METABOLIC PANEL, COMPREHENSIVE (81301)Indication: Essential hypertension On: 92-Syc-114014:18 Request LIPID PANEL (41551)Indication: Other hyperlipidemia On: 69-Kqw-135897:18 Request PSA (PROSTATE SPECIFIC ANTIGEN) (V76.44)Indication: Screening for prostate cancer On: :40 Request MICROALBUMIN: CREATININE RATIO (89825) AND (46163)Indication: Abnormal glucose tolerance test On: :40 Request METABOLIC PANEL, COMPREHENSIVE (23790)Indication: Abnormal glucose tolerance test On: :40 Request Urine Protein Electrophoresis (UPEP) (37839)Indication: recurrent uri On: :39 Request Serum Protein Electrophoresis (SPEP) (50548)Indication: recurrent uri On: :39 Request IMMUNOGLOBULIN E (IgE) (36704)Indication: Asthma, intrinsic, with status asthmaticus On: :39 Request IGA/IGD/IGG/IGM-EACH (11589)Indication: Asthma, intrinsic, with status asthmaticus On: :39 Request LIPID PANEL (60156)Indication: Other hyperlipidemia On: :38 Request ASPERGILLUS AG, EIA (41142)Indication: Cough On: 83-Oka-953319:58 Request SED RATE ERYTHROCYTE (03862)Indication: Cough On: 69-Ame-266109:48 Request C-REACTIVE PROTEIN (95551)Indication: Cough On: 24-Gzm-619523:48 Request CBC WITH MANUAL DIFF (93609)Indication: Cough On: 14-Ynn-467078:47 Request Quantiferron gold test (56539)Indication: Cough On: 37-Ggr-115217:45 Request CULTURE, SPUTUM (43867)Indication: Cough On: 15-Sym-914937:45 Request VITAMIN B-12 (CYANOCOBALAMIN) (62241)Indication: Fatigue On: :20 Request Vitamin D Hydroxy (14716)Indication: Fatigue On: 72-Yvj-436957:20 Request CBC WITH MANUAL DIFF (75786)Indication: Abnormal glucose tolerance test On: :19 Request METABOLIC PANEL, COMPREHENSIVE (90574)Indication: Abnormal glucose tolerance test On: :19 Request LIPID PANEL (46347)Indication: Other hyperlipidemia On: :19 Request URINALYSIS, W/ MICRO (53677)Indication: Abnormal glucose tolerance test On: :19 Request HEMOGLOBIN GLYCLATED (HGB A1C) (58597)Indication: Abnormal glucose tolerance test On: :19 Request WARREN CULTURE-OTHER (25297)Indication: Pharyngitis, acute On: 23-Pmb-298160:05 Request URINE WARREN CULTURE-MASSIEL COL COUNT (37458)Indication: Abdominal pain, acute, right lower quadrant On: :19 Request CBC WITH MANUAL DIFF (02299)Indication: Abnormal glucose tolerance test On: :08 Request METABOLIC PANEL, COMPREHENSIVE (45799)Indication: Abnormal glucose tolerance test On: :08 Request TSH (90851)Indication: Fatigue On: :02 Request CBC WITH MANUAL DIFF (22247)Indication: Abnormal glucose tolerance test On: :45 Request METABOLIC PANEL, COMPREHENSIVE (69329)Indication: Hypertension, benign On: :45 Request LIPID PANEL (40357)Indication: Other hyperlipidemia On: :45 Request METABOLIC PANEL, COMPREHENSIVE (96510)Indication: Essential hypertension On: 67-Bln-738031:16 Request LIPID PANEL (59816)Indication: Other hyperlipidemia On: 58-Fnv-270815:15 Request URINE WARREN CULTURE-MASSIEL COL COUNT (75769)Indication: Calcium kidney stone On: 04-Voh-511045:54 Request PSA (PROSTATE SPECIFIC ANTIGEN) (V76.44)Indication: Enlarged prostate with lower urinary tract symptoms On: 45-Oot-825827:09 Request METABOLIC PANEL, COMPREHENSIVE (80014)Indication: Abnormal glucose tolerance test On: :09 Request CBC WITH MANUAL DIFF (67547)Indication: Abnormal glucose tolerance test On: 56-Vgj-546965:09 Request LIPID PANEL (22207)Indication: Other hyperlipidemia On: 06-Dng-829860:09 Request MICROALBUMIN: CREATININE RATIO (17566) AND (96718)Indication: Abnormal glucose tolerance test On: 87-Ibp-821087:09 Request LIPID PANEL (11467)Indication: Other hyperlipidemia On: : Request CBC WITH MANUAL DIFF (56027)Indication: Abnormal glucose tolerance test On: : Request METABOLIC PANEL, COMPREHENSIVE (41499)Indication: Abnormal glucose tolerance test On: 21-Kfh-964051:30 Request MICROALBUMIN: CREATININE RATIO ([id number]) AND ([id number])Indication: Abnormal glucose tolerance test On: 49-Ugl-943621:28 Request METABOLIC PANEL, COMPREHENSIVE ([id number])Indication: Abnormal glucose tolerance test On: 7-Rhk-974296:07 Request LIPID PANEL ([id number])Indication: Other hyperlipidemia On: 9-Gor-991850:07 Request PSA (PROSTATE SPECIFIC ANTIGEN) (V76.44)Indication: Enlarged prostate with lower urinary tract symptoms On: 5-Qtn-133725:49 Request METABOLIC PANEL, COMPREHENSIVE ([id number])Indication: Essential hypertension On: :48 Request LIPID PANEL ([id number])Indication: Other hyperlipidemia On: :48 Request HEPATIC FUNCTION PANEL ([id number])Indication: Other hyperlipidemia On: :21 Request LIPID PANEL ([id number])Indication: Other hyperlipidemia On: 32-Wru-003876:21 Request CBC WITH MANUAL DIFF ([id number])Indication: Abnormal glucose tolerance test On: 7-Sqt-301745:53 Request METABOLIC PANEL, COMPREHENSIVE ([id number])Indication: Abnormal glucose tolerance test On: 3-Cco-179132:53 Request MICROALBUMIN: CREATININE RATIO ([id number]) AND ([id number])Indication: Abnormal glucose tolerance test On: 7-Pqx-431617:53 Request HEPATIC FUNCTION PANEL ([id number])Indication: Other hyperlipidemia On: 6-Ekv-918089:53 Request LIPID PANEL ([id number])Indication: Other hyperlipidemia On: 4-Npg-466939:53 Request GLUCOSE TOLERANCE TEST (GTT) 2 hour On: 2-Cas-880185:36 Request ([id number]) TSH ([id number])Indication: Dizziness and giddiness On: 88-Dzb-078336:15 Request LIPID PANEL ([id number])Indication: Other hyperlipidemia On: 55-Eso-464878:15 Request CBC WITH MANUAL DIFF ([id number])Indication: Dizziness and giddiness On: 78-Jmz-334777:15 Request METABOLIC PANEL, COMPREHENSIVE ([id number])Indication: Dizziness and giddiness On: 55-Rsp-491160:15 Request HEPATIC FUNCTION PANEL ([id number])Indication: Other hyperlipidemia On: :39 Request LIPID PANEL ([id number])Indication: Other hyperlipidemia On: 24-Add-702441:39 Request HEPATIC FUNCTION PANEL ([id number])Indication: Other hyperlipidemia On: :31 Request LIPID PANEL ([id number])Indication: Other hyperlipidemia On: :31 Request WARREN CULTURE-BLOOD ([id number])Indication: fever On: 7-Byg-113749:58 Request METABOLIC PANEL, COMPREHENSIVE ([id number])Indication: fever On: 2-Fqh-416686:58 Request CBC WITH MANUAL DIFF ([id number])Indication: fever On: :58 Request WARREN CULTURE-OTHER ([id number])Indication: Pharyngitis, acute On: 32-Rtj-657537:35 Request PSA (Prostate Specific Antigen), Screening (40461)Indication: Other hyperlipidemia On: :32 Request LIPID PANEL ([id number])Indication: Other hyperlipidemia On: :31 Request URINALYSIS W/O MICRO ([id number])Indication: Hypertension, benign On: :31 Request TSH ([id number])Indication: Hypertension, benign On: :31 Request CBC WITH MANUAL DIFF ([id number])Indication: Hypertension, benign On: 09-Pwo-439962:31 Request METABOLIC PANEL, COMPREHENSIVE ([id number])Indication: Hypertension, benign On: :31 Request Creatine Kinase Total ([id number])Indication: Myalgia and myositis On: 9-Ycb-319617:24 Request SED RATE ERYTHROCYTE ([id number])Indication: Arthralgia On: :23 Request C-REACTIVE PROTEIN ([id number])Indication: Arthralgia On: :23 Request RHEUMATOID FACTOR-QUANT ([id number])Indication: Arthralgia On: :23 Request JOHN (ANTINUCLEAR ANTIBODY) ([id number])Indication: Arthralgia On: :23 Request Planned Encounters Medical; [facility] 3 Month FU - On: 21-Mar-2018 8:30 [facility] Flakito ACKERMAN, Adelaida A Flakito ACKERMAN, Adelaida A Planned Procedures PNEUM VAC ADLT/IMUMNOSPR, On: 06-Dec-2017 Intent SBC/INTRM ([id number])By: Flakito ACKERMAN, Comments: lot: [id number]: ite/route: L del/IMamt: 0.5mLVIS signed when applicableEVER Monroy Adelaida A Fast DO, Adelaida A Cartoid DopplerBy: Fast DO, Adelaida On: 06-Sep-2017 Intent A Fast DO, Adelaida A Radiology - Lumbar SpineBy: Fast On: 06-Jun-2017 Intent DO, Adelaida A Fast DO, Adelaida A ELECTROCARDIOGRAM, COMPLETE (ECG) On: 06-Jun-2017 Intent ([id number])By: Flakito ACKERMAN Adelaida A Flakito Comments: ekg [...] XRAY, PA & LATERAL On: 18-Jan-2017 Intent ([id number])By: Yola Witt Aerosol Treatment ([id number])By: On: 18-Jan-2017 Intent Yola Witt Solu -Medrol Injection, 125 mg On: 18-Jan-2017 Intent ([id number])By: Yola Witt Comments: solumedrol 125mg injectionlot: [id number]: 12/2018L GMpt tolerated wellAD [employer] ELECTROCARDIOGRAM, COMPLETE (ECG) On: 05-Jan-2016 Intent ([id number])By: Adelaida Fraga DO A Flakito Comments: ekg showed normal sinus rhythym, normal axis, no acute st/t wave changes irbb DO, Adelaida A Solu -Medrol Injection, 125 mg On: 09-May-2015 Intent ([id number])By: Samantha Grewal CNP Comments: lot: [id number]: ite/route:RGM/IMamt: 2mLVIS signed when applicableEVER Dumont Aerosol Treatment ([id number])By: On: 09-May-2015 Intent Slarb [employer], Tracey Radiology - Chest- PA and LatBy: [...] A Fast DO, Adelaida A Pulse Oximetry ([id number])By: Fast On: 26-Aug-2014 Intent DO, Adelaida A Fast DO, Adelaida A Comments: 94%- recheck 95 Aerosol Treatment ([id number])By: On: 10-Apr-2014 Intent Tracey Young LPN Eprescribed prescriptions On: 25-Jul-2013 Intent (G8553)By: Fast DO, Adelaida A Fast DO, Adelaida A Pulse Oximetry ([id number])By: Fast On: 02-Jul-2013 Intent DO, Adelaida A Fast DO, Adelaida A Comments: 97% Aerosol Treatment ([id number])By: On: 25-Jun-2013 Intent Samantha Grewal CNP Eprescribed prescriptions On: 25-Jun-2013 Intent ([id number])By: Samantha Grewal CNP Eprescribed prescriptions On: 02-Apr-2013 Intent (G8553)By: Leigh Ann Polk Aerosol Treatment ([id number])By: On: 26-Mar-2013 Intent Samantha Grewal CNP Eprescribed prescriptions On: 26-Mar-2013 Intent (G8553)By: Eliana Carter Eprescribed prescriptions On: 25-Dec-2012 Intent (G8553)By: Leigh Ann Polk Aerosol Treatment ([id number])By: On: 06-Nov-2012 Intent Samantha Grewal CNP Eprescribed prescriptions On: 06-Nov-2012 Intent (G8553)By: Eliana Carter Ear Irrigation ([id number])By: Carmina On: 25-Sep-2012 Intent Samantha IRVIN Comments: Ear Irrigation performed on:bilateralAmount/color removed cerumen:large amount of dark brown wax removedOUtcome:clear, pt toleratedUsed wax curettes Wax CurettesBy: Carmina IRVINSamantha On: 25-Sep-2012 Intent Eprescribed prescriptions On: 22-Sep-2012 Intent (G8553)By: Peter ACKERMAN Elizabet Eprescribed prescriptions On: 02-Aug-2012 Intent (G8553)By: Leigh Ann Polk Pulse Oximetry ([id number])By: Flakito On: 30-Jun-2012 Intent DO, Adelaida A Fast DO, Adelaida A Comments: 97% Eprescribed prescriptions On: 12-Jun-2012 Intent (G8553)By: Fast DO, Adelaida A Fast DO, Adelaida A Spirometry ([id number])By: Felicitas, On: 17-Jan-2012 Intent Leigh Ann Comments: good effort and curve mild restriction CT - Sinuses CompleteBy: Fast DO, On: 17-Jan-2012 Intent Adelaida A Fast DO, Adelaida A PNEUM VAC ADLT/IMUMNOSPR, On: 17-Jan-2012 Intent SBC/INTRM ([id number])By: Boris, Comments: Lot:[id number]:3-5-13Dose:0.5mLRoute:IMSite:L Naifven By:CHELA signed Julia IMMUNIZ ADMNIN, 1 VAC, SNGL/COMBO On: 17-Jan-2012 Intent ([id number])By: Julia Escalante CT - ChestBy: Fast DO, Adelaida A On: 17-Jan-2012 Intent Fast DO, Adelaida A Eprescribed prescriptions On: 17-Jan-2012 Intent (G8553)By: Leigh Ann Polk Eprescribed prescriptions On: 18-Oct-2011 Intent (G8553)By: Fast DO, Adelaida A Fast DO, Adelaida A EKG ([id number])By: Fast DO, Adelaida A On: 15-Oct-2011 Intent Fast DO, Adelaida A Comments: ekg- sinus with normal axis and nsivcd and no acute changes Eprescribed prescriptions On: 09-Aug-2011 Intent (G8553)By: Fast DO, Adelaida A Fast DO, Adelaida A PFT - CompleteBy: Fast DO, Adelaida On: 08-Mar-2011 Intent A Fast DO, Adelaida A Pulse Oximetry ([id number])By: Carmina On: 02-Feb-2011 Intent Samantha IRVIN Aerosol Treatment ([id number])By: On: 02-Feb-2011 Intent Carmina IRVINSamantha Radiology - Chest- PA and LatBy: On: 18-Jan-2011 Intent Fast DO, Adelaida A Fast DO, Adelaida A Pulse Oximetry ([id number])By: On: 18-Jan-2011 Intent Leigh Ann Polk Comments: 93% TDAP VACCINE >7 IM ([id number])By: On: 07-Dec-2010 Intent Leigh Ann Polk Comments: Lot #:[id number] date:mount given:0.5mlRoute: IMSite given:left deltGiven by: DANIEL Zavaleta Eprescribed prescriptions On: 07-Dec-2010 Intent (G8553)By: Fast DO, Adelaida A Fast DO, Adelaida A FLU VAC, SPLIT, >3 YEARS, On: 07-Dec-2010 Intent INTRAMUSC ([id number])By: Felicitas, Comments: received at work Leigh Ann Toradol Injection, 30 mg On: 05-Nov-2010 Intent (J1885)By: Elizabet Green DO Comments: Lot:[id number]:apr 05Amt:30mg/mlRoute:IMSite:left hip Given By: ILDA Tran Ear Irrigation ([id number])By: Peter On: 05-Nov-2010 Elizabet Thomson DO Comments: Left ear irrigated, large amt of wax removed. pt tolerated well. Eprescribed prescriptions On: 05-Nov-2010 Intent (G8553)By: Elizabet Green DO Wax CurettesBy: Peter ACKERMAN, On: 05-Nov-2010 Intent Elizabet SPECIMEN HNDLNG/TRNSPRT, OFFC > On: 05-Nov-2010 Intent LAB ([id number])By: Elizabet Green DO Nuclear Medicine - HIDA [...] call wet read DO, Adelaida A Spirometry ([id number])By: Fast DO, On: 14-Sep-2010 Intent Adelaida A Fast DO, Adelaida A Comments: good effort and curve- mild restriction Eprescribed prescriptions On: 14-Sep-2010 Intent (G8553)By: Fast DO, Adelaida A Fast DO, Adelaida A Pulse Oximetry ([id number])By: Fast On: 14-Sep-2010 Intent DO, Adelaida A Fast DO, Adelaida A Comments: 94-95 Radiology - Chest- PA and LatBy: On: 14-Sep-2010 Intent Fast DO, Adelaida A Fast DO, Adelaida A Pulse Oximetry ([id number])By: Carmina On: 23-Feb-2010 Intent ALBARO Anamaria Aerosol Treatment ([id number])By: On: 23-Feb-2010 Intent Cialyse IRVIN Anamaria Pulse Oximetry ([id number])By: Ciescalin On: 26-Jan-2010 Intent ALBARO Anamaria Aerosol Treatment ([id number])By: On: 26-Jan-2010 Intent Cialyse IRVIN Anamaria Spirometry (94307)By: Felicitas On: 29-Apr-2008 Intent Leigh Ann Comments: good effort and curve normal EKG ([id number])By: Fast DO, Adelaida A On: 20-Apr-2007 Intent [...] DO, Adelaida A Flakito Comments: Lot #: [id number] date: 10/30Amount given: 2 gramsRoute: IMSite given: Right hip and left hipGiven by: Calin Townsend LPN DO, Adelaida A Spirometry (97202)By: Fast DO, On: 27-Mar-2007 Intent Adelaida A Fast DO, Adelaida A Comments: good effort and curve normal EBV SEROLOGIC TESTBy: Mary Ann Salcido On: 17-Feb-2007 Intent RUDY-GUZMAN VCA ANTIBODY On: 16-Feb-2007 Intent MEASUREMENTBy: Mast RN, Negrita SPECIMEN HNDLNG/TRNSPRT, OFFC > On: 06-Feb-2007 Intent LAB ([id number])By: Fast DO, Adelaida A Fast DO, Adelaida A Ultrasound - TesticularBy: Fast On: 13-Oct-2006 Intent DO, Adelaida A Fast DO, Adelaida A Inhaler Demo ([id number])By: Fast DO, On: 26-Sep-2006 Intent Adelaida A Fast DO, Adelaida A Radiology - Hip - LeftBy: Fast On: 26-Sep-2006 Intent DO, Adelaida A Fast DO, Adelaida A Radiology - Hip - RightBy: Fast On: 26-Sep-2006 Intent DO, Adelaida A Fast DO, Adelaida A Bio Z ([id number])By: Fast DO, Adelaida A On: 25-Jul-2006 Intent Fast DO, Adelaida A Comments: normal paremters Six Minute Walk Assessment On: 25-Jul-2006 Intent ([id number])By: Fast DO, Adelaida A Fast DO, Adelaida A Radiology - Chest- PA and LatBy: On: 25-Jul-2006 Intent Fast DO, Adelaida A Fast DO, Adelaida A Spirometry ([id number])By: Flakito DO, On: 25-Jul-2006 Intent Adelaida A Fast DO, Adelaida A Comments: good effort and curve- normal EDISON (Ankle Brachial Index) On: 20-Jul-2006 Intent ([id number])By: Leigh Ann Polk Comments: done EDISON (Ankle Brachial Index) On: 17-May-2006 Intent ([id number])By: Fast DO, Adelaida A Fast DO, Adelaida [...] Advance Directives Name Dates Details Immunization Registry [place] - Effective on Effective: 31-Jan-201701/31/2017. 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 [...] congestion and ears hurt- [facility] Diagnosis: Cough (786.2), SHORTNESS OF BREATH [...] for Follow up ER: Pt went to [facility] and then went to [facility] [place] to have the doppler done.- got back [...] 2 days with bad UTI.- was at [facility] and getting cystoscopy done and was found to be retaining urine- - by the next night he was sick with no appetitie and just felt bad went to bed - woke up next day- and felt bad- and went to [facility]- and had uti- was there 2 [...] up hospital : Pt was transfered to [facility] for heart cath and discharged sat 06/30/13.- he had heart cath again at [facility] and one vessel which shows 20percent [...] kidney then goes down- jalen barton regular- [facility] next tuesday- to try colonsocopy- -his [...] saw a Dr Barker a psychiatrist in [place]- he thought mostly anxiety so left him [...] gerd- so he is going back to [facility]- mood good with celexa-less tense, [...]
--- OUTSIDE RECORDS SUMMARY | 2018-05-15 00:55 | XMS RPT_ITS | Continuity of Care Document ---
:1950 Author Organization [facility] Address [address] [place] [address] Phone Care Team Providers Name Role Phone Adelaida Fraga DO Unavailable Remigio Lares MD Unavailable Tawanda Alonso Unavailable [facility] Unavailable Eliana Carter Unavailable [...] colonsoocpy 09/05- polyps - repeat 5 years [facility] Status: Active Coronary artery disease (I25.10, [...] DO, DO Adelaida A Start : 04-Jan-2018 Active Comments:thirtyAnxiety/Depression F41.9340,411,000 - OD risk 100 Azelastine HCl 0.1 % Nasal Solution 1-2 sprays each nostril Soluti Solution daily for 90 days Quantity: 3 {[place]} Refills: 5 Ordered:31-Oct-2017 Fast DO, Adelaida AFast DO, Adelaida A Start : 31-Oct-2017 Active BusPIRone HCl 10 MG Oral Tablet 2 (two) Tablet tid for 90 days Quantity: 540 {Tablet} Refills: 3 Ordered:09-May-2017 Fast DO, Adelaida AFast DO, Adelaida A [...] A Start : 02-Nov-2017 Active Comments:sixtyDX: M54.16, M51.82163,411,000 - OD risk 100 Lunesta 3 MG Oral Tablet 1 (one) Tablet q hs for 30 days Quantity: 30 {Tablet} Refills: 2 Ordered:06-Dec-2017 Adelaida Fraga DO, DO, Adelaida A Start : 06-Dec-2017 Active MetFORMIN HCl ER 500 MG Oral Tablet Extended Release 24 Hour 2 (two) Tablet ER 24HR qd for 0 days Quantity: 180 {Tablet} Refills: 3 Ordered:06-Sep-2017 Adelaida Fraga DO, DO, Adelaida A Start : 06-Sep-2017 Active Myrbetriq 50 MG Oral Tablet Extended Release 24 Hour 1 tab Tablet ER 24HR daily for 90 days Quantity: 90 {Tablet} Refills: 2 Ordered:29-Aug-2017 Eliana Carter Start : 29-Aug-2017 Active NITRO-DUR, 0.6MG/HR (Transdermal Patch 24 Hour) 1 (one) Patch 24HR qd for 0 days Quantity: 30 {Unspecified} Refills: 0 Ordered:25-Jul-2013 Adelaida Fraga DO, DO, Adelaida A Start : 25-Jul-2013 Active Protonix 40 MG Oral Tablet Delayed Release [address] bid for 0 days Quantity: 180 {Tablet} Refills: 3 Ordered:06-Jun-2017 Adelaida Fraga DO, DO, Adelaida A Start : 06-Jun-2017 Active Proventil HFA 108 (90 Base) MCG/ACT Inhalation Aerosol Solution 2 (two) Aerosol Soln qid, prn for 30 days Quantity: 1 {Aerosol_Soln} Refills: 3 Ordered:06-Apr-2016 Adelaida Fraga DO, DO, Adelaida A Start : 06-Apr-2016 Active Ranexa 500 MG Oral Tablet Extended Release 12 Hour 2 (two) Tablet ER 12HR bid for 0 days Quantity: 120 {Tablet} Refills: 0 Ordered:06-Apr-2016 Adelaida Fraga DO, DO, Adelaida A Start : 06-Apr-2016 Active Rosuvastatin [...] 28 {Tablet} Refills: 0 Ordered:12-Jun-2012 DO, Adelaida tesfaye DO, Adelaida A Start : 12-Jun-2012 End [...] 20-Mar-2013 Inactive Comments:alternate with 20mg(per hans at [facility] - was not fillable if more than 1qd and would require pa at [phone] or [phone] - sent in this way to see if will process -- no id number was given = Karely Diflucan 150 MG Oral Tablet 1 (one) Tablet daily for 7 days Quantity: 7 {Tablet} Refills: 0 Ordered:28-Jan-2017 Adelaida Fraga DOtesfaye DOAdelaida A Start : 28-Jan-2017 End : 04-Feb-2017 [...] Refills: 0 Ordered:15-Jul-2017 Adelaida Fraga DOtesfaye Adelaida A Start : 15-Jul-2017 End : [...] (Oral Capsule) 1 (one) Capsule Capsule bid b5labfp for 21 days Quantity: 42 {Capsule} Refills: 0 Ordered:1-Dec-2014 Adelaida Fraga DO, DO, Debra A Start : 21-Jan-2014 End : 11-Feb-2014 [...] : 02-Sep-2010 End : 05-Nov-2010 Inactive NYSTATIN, 447630SEUC/ML (Mouth/Throat Suspension) 10 cc tid for 0 [...] Refills: 0 Ordered:20-Sep-2017 Adelaida Fraga DO, DO, Debra A Start : 06-Sep-2017 End : 20-Sep-2017 [...] : 22-Jun-2013 End : 03-Sep-2013 Inactive ZOSTAVAX, 12325BHB/0.65ML (Subcutaneous Solution Reconstituted) 1 For Solution sc [...] Quantity: 1 {Aero_Pow_Br_Act} Refills: 1 Ordered:25-Dec-2012 Fast DOAdelaida DO Adelaida A Start : 25-Dec-2012 End : 25-Dec-2012 Discontinued ADVAIR HFA, 230-21MCG/ACT (Inhalation Aerosol) 2 puffs Aerosol bid for 90 days Quantity: 3 {Inhaler} Refills: 3 Ordered:10-Apr-2014 Slarb AUDIOMETRIST, Tracey Start : 22-Jun-2013 End : 10-Apr-2014 Discontinued ATENOLOL, 50MG (Oral Tablet) 1 tab Tablet qd for 30 days Quantity: 30 {Tablet} Refills: 0 Ordered:10-Apr-2014 Slarb AUDIOMETRIST, Tracey Start : 12-Jun-2012 End : 10-Apr-2014 Discontinued Atorvastatin Calcium 80 MG Oral Tablet 1 (one) Tablet qd for 30 days Quantity: 30 {Tablet} Refills: 3 Ordered:06-Jun-2017 Flakito ACKERMANManoloa YOSELYNtesfaye DO, Adelaida A Start : 06-Jun-2017 End [...] Quantity: 20 {Tablet} Refills: 0 Ordered:12-Jun-2012 Flakito ACKERMANManoloa Harriet ACKERMAN, Adelaida A Start : 12-Jun-2012 End : [...] Quantity: 60 {Capsule} Refills: 3 Ordered:10-Apr-2014 Slarb AUDIOMETRIST, Tracey Start : 29-Oct-2013 End : 10-Apr-2014 Discontinued Dymista 137-50 MCG/ACT Nasal Suspension 1 spray each nostril qd for 0 days Quantity: 2 {[place]} Refills: 0 Ordered:11-Jun-2016 Leigh Ann Polk Start [...] Start : 05-Jan-2016 End : 06-Apr-2016 Discontinued Comments:Jelani report#[id number]- df viewed and approved- gave scripts to [...] 0 days Refills: 0 Ordered:12-Aug-2008 Flakito ACKERMANAdelaida DO, Debra A End : 25-Jul-2013 Discontinued Comments:This order discontinued per [facility]. OXYBUTYNIN CHLORIDE ER, 10MG (Oral Tablet Extended Release 24 Hour) 1 (one) Tablet ER 24HR qd for 0 days Quantity: 30 {Tablet} Refills: 0 Ordered:23-Sep-2014 Flakito ACKERMANAdelaida DO, Debra A Start : 23-Sep-2014 End [...] days Quantity: 60 {Capsule_DR} Refills: 2 Ordered:05-Oct-2010 Flakito ACKERMANAdelaida DO, Debra A Start : 05-Oct-2010 End [...] Quantity: 6 {Package} Refills: 0 Ordered:10-Apr-2014 Slarb AUDIOMETRIST, Tracey Start : 06-Feb-2014 End : 10-Apr-2014 [...] x3 one on scalp two on right rastafari Status: Inactive as of 06-Jun-2017 Acute sinusitis, [...] W/WO Contrast Result: Comments: See Note; NOTES: [facility] Imaging Services [address] [place] [address] Brain W/WO Contrast MR#: [id number] Acct: [id number] Name: YUMIKO LANDRUM Rep #: [id number] : 1950 M 67 From: Rodney Sarah MD PCP: Adelaida Fraga DO Status: REG CLI Study: Brain W/WO Contrast Date of Exam: 09/26/17 Exam# [id number] Ordering Dr: Perico Crowe MD STUDY: MRI [...] CC: Perico Crowe MD; Adelaida Fraga DO Data Modeling Specialist: Signed 17-Sep-2017 Carotid Duplex Ultrasound Result: Comments: See Note; NOTES: [facility] Cardiovascular Services [address] [place] [address] Carotid Duplex Ultrasound 09/16/17 1012 MR#: [id number] Acct: [id number] Name: YUMIKO MCCOLLUM Rep #: [id number] : 1950 66 From: Jung Garcia MD [...] the left vertebral artery. Procedure Carotid Duplex 42454. The study was technically difficult. Exam performed [...] Date Dictated: 1012 Date Transcribed: 09/17/17 151 Data Modeling Specialist: Signed 17-Aug-2017 History and Physical Exam Result: Comments: See Note; NOTES: [facility] Medical Records Department [address] [place] [address] History and Physical 08/17/17913 MR#: [id number] Acct: [id number] Name: LYON AMBER E Rep #: [id number] : 1950 66 From: Remigio Lares MD PCP: Adelaida Fraga DO Status: REG 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 transplanted heart: [place] heart Qualified Code(s): I25.10 - Atherosclerotic heart disease of [place] coron elise artery without angina pectoris Comment: [...] was trivial MR and TR and mild CO. His estimated RV systolic pressure was 30 [...] please see previously dictated out the patient [place] from 07/14/2017. Review of systems: Upon review [...] this approach. This note was generated with Plumbr dictation software. It may contain incorrect words, spelling, and punctuation that were not noted in checking the note bef ore signing. 08/17/17 0925 <Electronically signed by Remigio Lares MD> Date Remigio Lares MD Cosigner Signature: Date (if applicable) CC: Adelaida Fraga DO; Remigio Lares MD Signed 11-Aug-2017 Chest PA and Lateral Result: Comments: See Note; NOTES: [facility] Imaging Services [address] [place] [address] Chest PA and Lateral MR#: [id number] Acct: [id number] Name: YUMIKO LANDRUM Brandon Rep #: [id number] : 1950 M 66 From: Will Guerrero MD PCP: Adelaida Fraga DO Status: REG CLI Study: Chest PA and Lateral Date of Exam: 08/11/17 Exam# [id number] Ordering Dr: Remigio Lares MD STUDY: X-RAY [...] CC: Adelaida Fraga DO; Remigio Lares MD Data Modeling Specialist: Signed 02-Aug-2017 Stress Report Result: Comments: See Note; NOTES: [facility] Cardiovascular Services [address] [place] [address] MR#: [id number] Acct: [id number] Name: YUMIKO LANDRUM Rep #: [id number] : [birth year] 66 From: Remigio Lares MD [...] 72 %. This note was generated with Zizerones software. It may contain incorrect words, spelling, and punctuation that were not noted in checking the note before signing. 08/02/17 8817 <Electronically signed by Remigio Lares MD> Date Remigio Lares MD CC: Adelaida Fraga DO; Remigio Lares MD Date Dictate d: 08/02/171638 Date Transcribed: 08/02/171638 Data Modeling Specialist: PM Signed 14-Jul-2017 Cardiology Visit Report Result: Comments: See Note; NOTES: [facility] [address] [place] [address] OFFICE VISIT Date of Service: 07/14/17 MR#: [id number] Acct: [id number] Name: YUMIKO LANDRUM Rep #: [id number] : 1950 Provider: Remigio Lares MD Age/Sex: 66/M Location: [facility] Status: Signed HPI HPI Details: YUMIKO LANDRUM, is a 66 M who presents to the office today for outpatient card iovascular consultation for history of underlying CAD status post LAD PCI. He has been cared for in the past both by the [facility] members (Drs. Griggs and Edwin), at [facility] by Dr. Rosales, and at [facility] by Dr. Maury Veliz. He states he lost saw Dr. Veliz approximately 1 year ago. He is now relocating his care locally. He has a history of underlying CAD. He underwent a previous diagnostic car diac catheterization on 08/11/2005 at [facility]. At that point in time he was [...] no significant stenosis. In April 2008, at [facility], he had a repeat diagnostic cardiac catheterization. [...] luminal irregularities. He apparently was transferred to [facility] for further evaluation and care. [...] an LYNDSEY inhibitor. He believes his former script girl remove these medications from wy s medication list. He does not recall [...] PO QAM cap 07/14/17 [History Confirmed 07/14/17] [facility] Medical History Presence of sten t in coronary artery (Chronic 08/11/05) Hyperlipidemia (Chronic) Hypertension (Chronic) Prinzmetal angina (Acute) Atherosclerotic heart disease of [place] coronary artery without angina pectoris (Chroni c) [...] affect Assessment AND Plan 1. Atherosclerosis of [place] coronary artery of [place] heart without angina pectoris I25.10 PTCA/RINA to [...] Code Off vis,new,level 4 Diagnoses Atherosclerosis of [place] coronary artery of [place] heart without angina pectoris I25.10 [place] vs. transplanted heart: n ative heart Presence of stent in coronary artery Z95.5 Hyperlipidemia, unspecified hyperlipidemia type E78.5 Hyperlipidemia type: unspecified Essential hypertension I10 Hypertension type: essential hype rtension COPD (chronic obstructive pulmonary disease) J44.9 Coding Level of Care Code Off vis,new,level 4 Diagnoses Atherosclerosis of [place] coronary artery of [place] heart without angina pectoris I 25.10 [place] vs. transplanted heart: [place] heart Presence of stent in coronary artery Z95.5 Hyperlipidemia, unspecified hyperlipidemia type E78.5 Hyperlipidemia type: unspecified Essential hypertension I10 Hypertension type: essential hypertension COPD (chronic obstructive pulmonary disease) J44.9 07/14/17 1558 <Electronically signed by Remigio Lares MD> Date Remigio Lares MD Cosigner Signature: Date (if applicable) CC: Adelaida Fraga DO 14-Jul-2017 12 Lead EKG performed by [facility] Result: Comments: See Note; NOTES: [facility] [address] [place] [address] 12 Lead EKG performed by [facility] 07/14/171435 MR#: [id number] Acct: [id number] Name: YUMIKO LANDRUM Rep #: [id number] : 1950 66 From: Remigio Lares MD Attending Dr: Remigio Lares MD Status: DEP AMB Ordering Dr: Remigio Lares MD Date: 07/14/17 Location: [facility] Sex: M C Admitted: BMS/12 Lead EKG performed by [facility] ECG Report Interpretation Sinus Rhythm Right bundle branch block. ABNORMAL Electronically signed on 07/14/2017 at 17:15 by Remigio Lares 07/14/17 1717 Date Remigio Lares MD CC: Adelaida Fraga DO Date Dictated: 07/14/171435 Date Transcribed: 07/14/171435 Data Modeling Specialist: PM Signed 04-Jul-2017 TXT - Blood Flow Screening Result: Comments: See Note; NOTES: [facility] Cardiovascular Services [address] [place] [address] 07/04/17 0840 MR#: [id number] Acct: [id number] Name: YUMIKO LANDRUM Rep #: [id number] : 1950 66 From: Jung Garcia MD Attending Dr: Adelaida Fraga DO Status: REG REF Ordering Dr: Date: 07/04/17 Location: [facility] Sex: M C Admitted: Reason For [...] (1.0 or greater). Ordering Physician: Adelaida Fraga [facility] Physician: Adelaida Fraga Performed By: Kayla Kelley, RDCS, RVT 07/04/172221 Date Tyrese Garcia MD CC: Adelaida Fraga DO Date Dictated: 07/04/17 0840 Date Transcribed: 07/04/172221 Data Modeling Specialist: Signed 06-Jun-2017 L/S Spine Min 4 Views Result: Comments: See Note; NOTES: [facility] Imaging Services [address] [place] [address] L/S Spine Min 4 Views MR#: [id number] Acct: [id number] Name: YUMIKO LANDRUM Rep #: [id number] : 1950 M 66 From: Rafael Manley DO PCP: Adelaida Fraga DO Status: REG CLI Study: L/S Spine Min 4 Views Date of Exam: 06/06/17 Exam# [id number] Ordering Dr: Adelaida Fraga DO STUDY: X-RAY [...] Rafael Manley DO at 18:01 EDT Tel [phone], Service support , CC: Adelaida Fraga DO Data Modeling Specialist: Signed 18-Feb-2017 Ankle min 3 Views Result: Comments: See Note; NOTES: [facility] Imaging Services [address] [place] [address] Ankle min 3 Views MR#: [id number] Acct: [id number] Name: YUMIKO LANDRUM Rep #: [id number] OB: 1950 M 66 From: Trevon Carrillo MD PCP: Adelaida Fraga DO Status: REG CLI Study: Ankle min 3 Views Date of Exam: 02/18/17 Exam# [id number] Ordering Dr: Adelaida Fraga DO STUDY: X-RAY [...] 13:20 EST , Service support , CC: Adealida Fraga DO Data Modeling Specialist: Signed 18-Feb-2017 Chest without Contrast Result: Comments: See Note; NOTES: [facility] Imaging Services [address] [place] [address] Chest without Contrast MR#: [id number] Acct: [id number] Name: YUMIKO LANDRUM Brandon Rep #: [id number] : 1950 M 66 From: Kaitlin Campoverde PCP: Adelaida Fraga DO Status: REG CLI Study: Chest without Contrast Date of Exam: 02/18/17 Exam# [id number] Ordering Dr: Adelaida Fraga DO STUDY: CT [...] Service support , CC: Adelaida Fraga DO Data Modeling Specialist: Signed 10-Feb-2017 Chest PA and Lateral Result: Comments: See Note; NOTES: [facility] Imaging Services [address] [place] [address] Chest PA and Lateral MR#: [id number] Acct: [id number] Name: YUMIKO LANDRUM Rep #: [id number] : 1950 M 66 From: Chava Fu MD PCP: Adelaida Fraga DO Status: REG CLI Study: Chest PA and Lateral Date of Exam: 02/10/17 Exam# [id number] Ordering Dr: Yola Witt STUDY: X-RAY CHEST [...] , CC: COCO Witt; Adelaida Fraga DO Data Modeling Specialist: Signed 18-Jan-2017 Chest PA and Lateral Result: Comments: See Note; NOTES: [facility] Imaging Services [address] [place] [address] Chest PA and Lateral MR#: [id number] Acct: [id number] Name: YUMIKO LANDRUM Rep #: [id number] : 1950 M 66 From: Erwin Jiménez MD PCP: Adelaida Fraga DO Status: REG CLI Study: Chest PA and Lateral Date of Exam: 01/18/17 Exam# [id number] Ordering Dr: Yola Witt STUDY: X-RAY CHES [...] EST Tel , Service support , CC: STUDENT DRIVING INSTRUCTORMayra Witt; Adelaida Fraga DO Data Modeling Specialist: Signed 11-Apr-2015 Chest PA and Lateral Result: Comments: See Note; NOTES: [facility] Imaging Services [address] [place] [address] Verdana 4d Chest PA and Lateral MR#: [id number] Acct: [id number] Name: YUMIKO LANDRUM Rep #: [id number] : 1950 M 64 From: Stephen Barba MD PCP: Adelaida Fraga DO Status: REG CLI Study: Chest PA and Lateral Date of Exam: 04/11/15 Exam# [id number] Ordering Dr: Adelaida Fraga DO STUDY: X-RAY [...] FACR at 20:20 EST , Service support [phone], RAD/Chest PA and Lateral IMPRESSION: Normal x-ray examination of the chest. No lingular infiltrate is noted on today's examination Electronically Signed: Stephen Barba MD, FACR at 20:20 EST , Service support [phone], CC: Adelaida Fraga DO Data Modeling Specialist: Signed 11-Apr-2015 Hip min 2 Views Result: Comments: See Note; NOTES: [facility] Imaging Services [address] [place] [address] Verda 4d Hip min 2 Views MR#: [id number] Acct: [id number] Name: CITLALLI LANDRUM Rep #: [id number] : 1950 64 From: Stephen Barba MD PCP: Adelaida Fraga DO Status: REG CLI Study: Hip min 2 Views Date of Exam: 04/11/15 Exam# [id number] Ordering Dr: Adelaida Fraga DO UDY: X-RAY [...] FACR at 20:19 EST , Service support [phone], RAD/Hip min 2 Views IMPRESSION: Normal x-ray examination of the pelvis and hip. Electronically Signed: Stephen Barba MD, FACR 201 07/23/18 at 20:19 EST , Service support [phone], CC: Adelaida Fraga DO Data Modeling Specialist: Signed 11-Apr-2015 L/S Spine Min 4 Views Result: Comments: See Note; NOTES: [facility] Imaging Services [address] [place] [address] Verda 4d L/S Spine Min 4 Views MR#: [id number] Acct: [id number] Name: YUMIKO LANDRUM Rep #: [id number] : 1950 64 From: Stephen Barba MD PCP: Adelaida Fraga DO Status: REG CLI Study: L/S Spine Min 4 Views Date of Exam: 04/11/15 Exam# [id number] Ordering Dr: Susannah Fraga ra, DO STUDY: [...] FACR at 20:20 EST , Service support [phone], RAD/L/S Spine Min 4 Views IMPRESSION: M ild degenerative disc disease at L2-3 and L5-S1. Facet arthrosis at L4-5 and L5-S1. Mild dextroscoliosis. Electronically Signed: Stephen Barba MD, FACR at 20:20 EST Tel , Service support [phone], CC: Adelaida Fraga DO Data Modeling Specialist: Signed 27-Aug-2014 Chest PA and Lateral Result: Comments: See Note; NOTES: [facility] Imaging Services [address] [place] [address] Radiology Report MR#: [id number] Acct: [id number] Name: YUMIKO LANDRUM Rep #: [id number] : 1950 M 63 From: Wilfredo Alvarado MD PCP: Adelaida Fraga DO Status: REG CLI Study: Chest PA and Lateral Date of Exam: 08/27/14 Exam# [id number] Ordering Dr: Adelaida Fraga DO STUDY: X- [...] Wilfredo Alvarado MD at 15:46 EDT Tel [phone], Service support [phone], 0079 RAD/Chest PA and Lateral IMPRESSION: Inc reased markings in the lingular segment of the left upper lobe suggestive of early infiltrate. Followup is recommended. Electronically Signed: Wilfredo Alvarado MD at 15:46 EDT Tel [phone], Service support [phone], CC: Adelaida Fraga DO Data Modeling Specialist: Signed 02-Jul-2013 12 Lead Electrocardiogram Result: Comments: See Note; NOTES: [facility] Cardiovascular Services [address] [place] [address] 12 Lead EKG 06/17/13 193 MR#: [id number] Acct: [id number] Name: CITLALLI LANDRUM Rep #: [id number] : 1950 62 From: Remigio Lares MD [...] Abnormal ECG Confirmed by GERDA CALVO, REMIGIO ([id number]), slot editor KARYNA RUBALCAVA ([id number]) on 2013 10:04:35 AM Referred By: Jose Fernando Confirmed By:REMIGIO LARES MD CC: Adelaida byrd DO Date Dictated: 06/17/131937 Date Transcribed: 06/17/131937 Data Modeling Specialist: Signed 30-Jun-2013 Emergency Department Summary Result: Comments: See Note; NOTES: [facility] Medical Records Department [address] [place] [address] Emergency Department Summary MR#: [id number] Acct: [id number] Name: YUMIKO LANDRUM Rep #: [id number] : 1950 62 From: Jose Fernando MD PCP: Adelaida Fraga DO Status: DEP ER DATE OF SERVICE: 06/28/2013 CHIEF COMPLAINT: Chest pain. HISTORY OF PRESENT ILLNESS: The patient states over the past 8 hours, he has had intermittent discomfort in the chest of burning to ache similar to angina. He had an NC, he thinks, back in 2011 when he had a stent placed by Dr. Mariah carr in [facility]. He has been off his blood thinners [...] sensation, cranial nerve function and treatment. [facility] DEPARTMENT COURSE: Portable one-view chest x-ray [...] a 3. He agreed to go to [facility] where his script girl is in case he needs another cath and stent. He was stable for transfer. [facility] 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 He did not want to talk to me. The patient is stable for transfer, with him. DIAGNOSES: 1. Chest pain. 2. Unstable angina. Jose Fernando MD C C: Adelaida Fraga DO T: [facility] JOB: [id number] 06/30/13 0021 <Electronically signed by Jose Fernando MD> Date Jose Fernando MD CC: Adelaida Fraga DO Date Dictated: 06/28/13 2255 Date Transcribed: 06/28/132254 Data Modeling Specialist: Signed 28-Jun-2013 Chest 1 View (Portable) Result: Comments: See Note; NOTES: [facility] Imaging Services [address] [place] [address] Radiology Report MR#: [id number] Acct: [id number] Name: DOMINICKYUMIKO E Rep #: [id number] : 1950 M 62 From: Wilfredo Alvarado MD PCP: Adelaida Fraga DO Status: DEP ER Study: Chest 1 View (Portable) Date of Exam: 06/28/13 Exam# [id number] Ordering Dr: Jose Fernando MD STUDY: X-RAY [...] Wilfredo Alvarado MD at 9:06 EDT Tel [phone], Service support [phone], CC: Adelaida Fraga DO; Jose Fernando MD Data Modeling Specialist: Signed Immunization Name Dates Details Influenza vaccine, split, 3yrs &>, IM (AFLURIA) on: Nov-2017 Influenza, inj, MDCK, preservative free, q.valent on: 07-Dec-2016 Comments: Site: Lot #: [id number] Family History Unknown Family Member Name Dates [...] 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 53-Yiq-716182:31 Hemoglobin A1c Comments: [facility] [address] [place], [place], [address] HGB A1C 6.0 % (Normal) Range: 4.2-6.3 :31 Lipid Profile Comments: [facility] [address] [place], [place], [id number] VLDL 24 mg/dL (Normal) Range: 5-40 LDL [...] Risk :31 PSA,Total - Annual Screen Comments: [facility] [address] [place], [place], [id number] PSA,TOT SCREEN 0.50 ng/mL (Normal) Range: 0.00-4.00 Comments: This test was performed using the TPSA assay method for the[facility] chemistry system. Values obtained with differentassay methods cannot be used interchangably.When changing PSA assays in the course of monitoring apatient, additional sequential testing should be carriedout to confirm baseline values. 82-Bwp-755178:42 Aspergillus Antibodies Comments: [facility] (refer to report [...] mg/dL (Normal) Range: 700-1600 Comments: Performed at: [address] [id number] Director: Joseph Velez MD, Phone: [phone] at: [address] [id number]Lab Director: Hugo Britt PhD, Phone: [phone] 37-Uhc-075761:42 Miscellaneous Lab Comments: Comments: [id number],CLIVE,RTTest(s) Ordered: CLIVE Freedman,[facility] Mvkgzrplaf3805 [facility] [place], [place], [address] Procedure MISC Comments: TEST RESULT UNITS REFERENCE INTERVALA. fumigatus #1 Abs NEGATIVE NEGATIVE TESTING PERFORMED AT [facility]. O LAB (Normal) RIGINAL REPORT ON FILE IN LAB CONTAINS ADDITIONAL TEST SITE INFORMATION. TEST 8-Ouq-303535:28 Acetylcholine Receptor Comments: Has Patient had Radioactive Injection for X-ray?: [facility] (refer to report for specific site)refer to report for address and phone number ACTYL [id number] < 0.03 nmol/L (Normal) Range: 0.00-0.24 Comments: Negative: 0.00 - 0.24 Borderline: 0.25 - 0.40 Positive: > 0.40Performed at: [address] [id number] Director: Joseph Velez MD, Phone: [phone] 3-Eyg-639047:28 BUN 9 mg/dL (Normal) Comments: [facility] Pmbprwdvra[address] [place], [address] Range: 7-18 :28 Serum Creatinine AND GFR Comments: [facility] Xe[address]wkf[address] [place], [address] EST GFR - AA 100 mL/min (Normal) Comments: GFR Calc EST GFR 83 mL/min (Normal) Comments: Non- GFR Calc CREAT,SERUM 0.97 mg/dL (Normal) Range: 0.70-1.30 Comments: The validity of the calculated GFR AND GFRAA in patients over70 years has not been determined. Clinical correlation isessential. :13 Culture, Fungus 8482 Comments: [facility] Apdydqwgkc4047 [address] [place], [address] CUF See Note Comments: Cu,Ojftrn5401 TESTING PERFORMED AT [facility]. ORIGINAL REPORT ON FILE IN LAB CONTAINS ADDITIONAL TEST SITE INFORMATION. (Normal) ORGANISM 1: Barron albicansAmount Growth Growth ORGANISM 2: Penicillium speciesAmount Growth Growth :13 Culture, Sputum Comments: [facility] Mmcppaczse[address] [facility] [address] [place], [address] CUSP See Note (Normal) Comments: Gram StainAcceptable Specimen? Yes (<25 Epithelial cells per/lpf) Gram Stain 2+ White Blood Cells 2+ Epithelial cells 4+ Gram positive cocci 4+ Gram positive rods Resp. CultureNo Haemoph ilus, Streptococcus pneumoniae, beta-hemolytic Streptococcus or Staphylococcus aureus isolated. ORGANISM 1: Yeast Like OrganismAmount Growth Rare ORGANISM 2: Mixed FloraAmount Growth 3+ 49-Fig-888459:59 CBC W/Diff, Automated Comments: [facility] Lesadckswn5207 [place], [address] Absolute Lymph 1.98 {X10_3/ul} (Normal) Range: 0.83-4.51 [...] 4.6-6.2 WBC 10.8 K/mm3 (Normal) Range: 4.4-11.0 66-Pbg-260404:59 Comprehensive Metabolic Profil Comments: [facility] Vwqvqovzwn6710 [address] [place], [address] GAP 10 (Normal) Range: 5-15 CO2 27.0 [...] A.D.A. criteria.Please note revised GLUCOSE reference range gkehbmywo05/02/2018. 62-Hox-894049:59 Hemoglobin A1c Comments: [facility] Tysldmihyg4560 [facility]. [place], [place], [address] HGB A1C 6.2 % (Normal) Range: 4.2-6.3 32-Ahd-003074:59 Lipid Profile Comments: [facility] Vdqvsoxtge6964 [facility] [place], [place], [address] VLDL 13 mg/dL (Normal) Range: 5-40 LDL [...] 200-240 mg/dL Borderline >240 mg/dL High Risk 12-Eed-299734:59 Microalb:Creat Ratio,Random UR Comments: [facility] Jazvxratil47[address] [place], [place], [address] MALB:CREAT 10.1 {mg/g_CRE} (Normal) MICROALBUMIN,UR 5.6 mg/L (Normal) UR CREAT 55.70 mg/dL (Normal) :45 Basic Metabolic Profile (BMP) Comments: [facility] Xphdqmbufe3224 [address] [place], [place], [address] GAP 6 (Normal) Range: 5-15 CO2 29.0 [...] Comments: Please note revised GLUCOSE reference range ucbbqiivf40/02/2018. 7-Prx-557168:45 Lipid Profile Comments: [facility] Korctrozrm1829 [address] [place], [place], [address] VLDL 22 mg/dL (Normal) Range: 5-40 LDL [...] 200-240 mg/dL Borderline >240 mg/dL High Risk 3-Kae-023235:45 Liver Profile Comments: [facility] Xovleralfl4299 [place], [address] D BILI 0.13 mg/dL (Normal) Range: 0.00-0.30 T BILI 0.50 mg/dL (Normal) Range: 0.20-1.00 ALT 27 U/L (Normal) Range: 16-61 ALK P 53 U/L (Normal) Range: 45-117 AST 20 U/L (Normal) Range: 15-37 GLOB 4.3 g/dL (Abnormal) Range: 2.2-4.2 ALB 3.0 g/dL (Abnormal) Range: 3.2-5.0 T PROT 7.3 g/dL (Normal) Range: 6.4-8.2 91-Nmt-175659:31 Basic Metabolic Profile (BMP) Comments: [facility] Kvpyplnkqk7017 [address]. [place], [place], [address] GAP 4 (Abnormal) Range: 5-15 CO2 27.0 [...] A.D.A. criteria.Please note revised GLUCOSE reference range uubvggbyn94/02/2018. 22-Ktr-132685:31 CBC-Complete Blood Cnt No Diff Comments: [facility] Nyumiczena7706 [place], [address] MPV 8.7 fL (Normal) Range: 6.2-12.0 PLT [...] 4.6-6.2 WBC 9.6 K/mm3 (Normal) Range: 4.4-11.0 94-Aue-604936:31 Partial Thromboplast Time Comments: [facility] Lvllspogxh0943 [place], [address] PTT 26.1 s (Normal) Range: 24.1-36.2 48-Iyp-854420:31 Prothrombin Time w/INR Comments: [facility] Ikwatprfti8508 [place], [address] INR 0.9 (Normal) PROTIME 12.5 s (Normal) Range: 11.7-14.9 :00 Culture, Fungus 8482 Comments: [place] [address] [place], [place], [address] CUF See Note Comments: Cu,Ssdgop6904 TESTING PERFORMED AT [facility]. ORIGINAL REPORT ON FILE IN LAB CONTAINS ADDITIONAL TEST SITE INFORMATION. (Normal) ORGANISM 1: Barron albicansAmount Growth Growth ORGANISM 2: Penicillium speciesAmount Growth Growth ORGANISM 3: Aspergillus speciesAmount Growth Growth :00 Culture, Sputum Comments: [address] [place], [place], [address] CUSP See Note (Normal) Comments: Gram StainAcceptable Specimen? Yes (<25 Epithelial cells per/lpf) Gram Stain 1+ White Blood Cells Rare Epithelial cells 4+ Gram positive rods 1+ Gram negative rods Resp. Culture Mixed nor mal respiratory ashkan. No Haemophilus, Streptococcus pneumoniae, beta-hemolytic Streptococcus or Staphylococcus aureus isolated. 63-Dri-482191:00 Culture, Sputum Comments: [address] [place], [place], [address] CUSP See Note (Normal) Comments: Gram StainAcceptable Specimen? Yes (<25 Epithelial cells per/lpf) Gram Stain 1+ White Blood Cells Rare Epithelial cells 3+ Gram positive cocci Resp. CultureMixed normal respiratory ashkan. No Haemophilus, Streptococcus pneumoniae, beta-hemolytic Streptococcus or Staphylococcus aureus isolated. 22-Gek-040164:44 TESTOSTERONE FREE (90882) Comments: PATIENT NOT FASTINGPERFORMED BY: [facility] Rgwvww[address] [id number] BY: [address] [id number] Free Testosterone(Direct) 2.6 pg/mL (Abnormal) Range: 6.6-18.1 69-Okz-219177:44 HEPATITIS C ANTIBODY Comments: PATIENT NOT FASTINGPERFORMED BY: [place] 6106270 [facility] [id number] BY: [address] [id number] ([address]) Hep C Virus Ab 0.1 {s/co_ratio} (Normal) Range: 0.0-0.9 Comments: Negative: < 0.8 Indeterminate: 0.8 - 0.9 Positive: > 0.9 . The CDC recommends that a positive HCV antibody result be followed up with a HCV Nucleic Acid Amplification test (298687). 58-Nyp-500943:44 CBC W/AUTO DIFF WBC Comments: PATIENT NOT FASTINGPERFORMED BY: [facility] HospitalNeurescueDavid Ville 2195170 [facility] [id number] BY: [address] [id number] ([address]) Immature Grans (Abs) 0.0 {x10E3/uL} (Normal) Range: [...] 4.14-5.80 WBC 6.1 {x10E3/uL} (Normal) Range: 3.4-10.8 89-Umm-073228:44 METABOLIC PANEL, Comments: PATIENT NOT FASTINGPERFORMED BY: CB [facility] Fhabpx1448 [facility] [id number] BY: BN [facility] Npihcapfts7599 [facility] [id number] COMPREHENSIVE (20174) ALT (SGPT) 17 [iU]/L (Normal) Range: 0-44 [...] 8-27 Glucose 102 mg/dL (Abnormal) Range: 65-99 81-Opu-832886:15 HgA1C , Office (22204) HgA1C , Office 5.7 % (Normal) Range: 4.6 - 7.1 :30 CBC W/Diff, Automated Comments: [facility] Exoyjwvqej5206 [address] [place], [place], [address] Absolute Lymph 1.76 {X10_3/ul} (Normal) Range: 0.83-4.51 [...] 4.6-6.2 WBC 6.7 K/mm3 (Normal) Range: 4.4-11.0 82-Nam-826512:30 Comprehensive Metabolic Profil Comments: [facility] Uvsbedcure0755 [address] [place], [address] GAP 9 (Normal) Range: 5-15 CO2 25.0 [...] 7-18 GLU 78 mg/dL (Normal) Range: 70-110 60-Eah-651191:30 Culture, Urine Comments: [facility] Kvckujfljl8848 [address] [place], [address] CUUR See Note (Normal) Comments: Urine CultureCulture exhibits no growth. 47-Ele-398986:30 Lipid Profile Comments: [facility] Wsujeveoln59[address] [place], [address] VLDL 19 mg/dL (Normal) Range: 5-40 LDL [...] 200-240 mg/dL Borderline >240 mg/dL High Risk 61-Ruj-423494:10 Rapid Strep Test, Office (36261) Comments: Negative Rapid Strep Test, Office Negative (Normal) 30-Pxg-45201:51 THROAT CULTURE (14791) Comments: PATIENT NOT FASTINGPERFORMED BY: [employer] [facility] [id number] Information: SRC:TH Result 1 RRF (Normal) Comments: Routine respiratory ashkan Upper Respiratory Culture Final report (Normal) 17-Dqv-573028:02 Rapid Flu (16944 x 2) Comments: Negative Influenza A Ag Negative (Normal) 66-Rpz-081302:45 URINE WARREN CULTURE-IDENTIFICATN Comments: PERFORMED BY: [employer] [facility] [id number] Information: SRC:UC (67069) Result 1 NG36 (Normal) Comments: No growth in 36 - 48 hours. Urine Culture,Comprehensive Final report (Normal) 13-Vpm-144575:02 Urinalysis, Office (57657) UA - LEUKOCYTE ESTERASE Negative (Normal) UA - NITRITE Negative (Normal) URINE UROBILINGN MASSIEL TIMED Normal mg/dL (Normal) UA - PROTEIN Negative mg/dL (Normal) UA - PH 7 (Normal) UA - BLOOD Negative (Normal) UA - SPECIFIC GRAVITY 1.020 (Normal) UA - KETONES Negative mg/dL (Normal) UA - BILIRUBIN Negative (Normal) UA - GLUCOSE Negative (Normal) 17-Oux-781957:22 CBC W/Diff, Automated Comments: [facility] Gftbgfnlra0758 [address] [place], [address] Absolute Lymph 1.50 {X10_3/ul} (Normal) [...] 4.6-6.2 WBC 6.2 K/mm3 (Normal) Range: 4.4-11.0 :22 Comprehensive Metabolic Profil Comments: [facility] Xqixbumcqo9633 [address] [place], [address] ; will review opn 11/10 [...] 7-18 GLU 104 mg/dL (Normal) Range: 70-110 79-Adg-114362:22 Hemoglobin A1c Comments: [facility] Pzccotjbou6293 [address] [place], [address] HGB A1C 5.6 % (Normal) Range: 4.2-6.3 51-Nmu-381334:22 Immunofixation, Serum Comments: [facility] (refer to report for specific site)refer to report for address and phone number PAULA RESULT,S Comment (Normal) Comments: No monoclonality detected. IMMUNOGL M 53 mg/dL (Normal) Range: 20-172 IMMUNO A 169 mg/dL (Normal) Range: 61-437 IMMUNO G 692 mg/dL (Abnormal) Range: 700-1600 27-Pwd-178252:22 [place] [employer] Comments: [facility] (refer to report for specific site)refer to report for address and phone number KAPPA/LAMBDA % 1.17 (Normal) Range: 0.26-1.65 Comments: Performed at: - [facility] [address] [id number] Director: Hugo Britt PhD, Phone: [phone] FR LAMBDA LT CH 12.3 mg/L (Normal) Range: 5.7-26.3 FR KAPPA LT CHN 14.4 mg/L (Normal) Range: 3.3-19.4 74-Vsd-853956:22 Lipid Profile Comments: [facility] Xewjtsxoum8565 [address] [place], [address] VLDL 20 mg/dL (Normal) Range: [...] 200-240 mg/dL Borderline >240 mg/dL High Risk 43-Evw-810151:22 Microalb:Creat Ratio,Random UR Comments: [facility] Ngmajcxxdm1281 [address] [place], [address] ; will review on 11/10 MALB:CREAT 5.6 {mg/g_CRE} (Normal) MICROALBUMIN,UR 7.2 mg/L (Normal) UR CREAT 128.00 mg/dL (Normal) 09-Eex-628563:22 PSA,Total - Annual Screen Comments: [facility] Bwtetvstdm0871 [address] [place], [address] PSA,TOT SCREEN 0.63 ng/mL (Normal) Range: 0.00-4.00 Comments: This test was performed using the TPSA assay method for the[facility] chemistry system. Values obtained with differentassay methods cannot be used interchangably.When changing PSA assays in the course of monitoring apatient, additional sequential testing should be carriedout to confirm baseline values. :07 CBC W/Diff, Automated Comments: [facility] Tob[address] [place], [place], [address] Absolute Lymph 1.42 {X10_3/ul} (Normal) Range: 0.83-4.51 [...] Range: 4.4-11.0 :07 Comprehensive Metabolic Profil Comments: [facility] Aelbnlamjx[address] [place], [place], [address] GAP 8 (Normal) Range: 5-15 CO2 27.0 [...] 7-18 GLU 104 mg/dL (Normal) Range: 70-110 98-Zts-431948:07 Hemoglobin A1c Comments: [facility] Ielxxfiefz3554 [address] [place], [place], [address] HGB A1C 5.6 % (Normal) Range: 4.2-6.3 20-Zzw-356783:07 PAULA + Protein Elect, Serum Comments: Is Patient Fasting? [facility] (refer to report for specific site)refer to report for address and phone number NOTE: Comment (Normal) Comments: Protein electrophoresis scan will follow via computer,mail, or store stock help delivery.Performed at: [facility] Lab[address] [id number] Director: Hugo Britt PhD, Phone: [phone] PAULA RESULT,S Comment (Normal) Comments: No monoclonality detected. A/G RATIO 1.2 (Normal) Range: 0.7-1.7 GLOBULIN, TOTAL 3.0 g/dL (Normal) Range: 2.2-3.9 M-SPIKE g/dL (Normal) Comments: Not Observed GAMMA GLOBULIN 0.7 g/dL (Normal) Range: 0.4-1.8 BETA GLOBULIN 1.1 g/dL (Normal) Range: 0.7-1.3 NAUFG-6-UNIP 0.8 g/dL (Normal) Range: 0.4-1.0 LJOWQ-1-BQDO 0.3 g/dL (Normal) Range: 0.0-0.4 ALBUMIN 3.3 g/dL (Normal) Range: 2.9-4.4 IMMUNOGL M 53 mg/dL (Normal) Range: 20-172 IMMUNO A 177 mg/dL (Normal) Range: 61-437 IMMUNO G 761 mg/dL (Normal) Range: 700-1600 PROTEIN,TOTAL 6.3 g/dL (Normal) Range: 6.0-8.5 74-Aqk-658304:07 Lipid Profile Comments: [facility] X[address]par[address] [place], [place], [address] VLDL 21 mg/dL (Normal) Range: 5-40 LDL [...] 200-240 mg/dL Borderline >240 mg/dL High Risk 76-Eek-294071:01 CBC W/Diff, Automated Comments: [facility] G[address]sgxebrp[address] [place], [address] Absolute Lymph 1.62 {X10_3/ul} (Normal) [...] 4.6-6.2 WBC 7.6 K/mm3 (Normal) Range: 4.4-11.0 49-Sxl-121802:01 Comprehensive Metabolic Profil Comments: [facility] Cjnykaygbw2772 Andrea [place], [place], [address] ; has apt today GAP 7 (Normal) [...] 7-18 GLU 96 mg/dL (Normal) Range: 70-110 62-Rpd-331681:01 Lipid Profile Comments: [facility] Xepdnjynge6195 [facility]. [place], [place], [address] VLDL 11 mg/dL (Normal) Range: 5-40 LDL [...] 200-240 mg/dL Borderline >240 mg/dL High Risk 70-Ixb-273692:01 Lipoprotein A 369 nmol/L (Abnormal) Comments: [facility] [...] genetic factors on Lp(a) across ethnicities.Performed at: [facility] [employer] [address] [id number] Director: Hugo Britt PhD, Phone: [phone] 12-Xdv-651317:56 HgA1C , Office (08314) HgA1C , Office 5.6 % (Normal) Range: 4.6 - 7.1 7-Wrv-983062:19 ANCA Panel Comments: PATIENT NOT FASTINGPERFORMED BY: [employer] [id number] BY: [employer] [address] [id number] Atypical pANCA <1:20 {titer} Comments: The atypical [...] follow up testing ofpositive sera with both CO-3 and MPO-ANCA enzyme immunoassays. Asmany as 5% serum samp les are positive only by EIA.Ref. AM J Clin Pathol 1999;111:507-513. Cytoplasmic (C-ANCA) <1:20 {titer} (Normal) Antiproteinase 3 (CO-3) Abs <3.5 U/mL (Normal) Range: 0.0-3.5 Antimyeloperoxidase (MPO) Abs <9.0 U/mL (Normal) Range: 0.0-9.0 4-Fzd-523253:19 Antinuclear Antibodies Comments: PATIENT NOT FASTINGPERFORMED BY: [employer] [id number] BY: [facility] [facility] [id number] Direct JOHN Direct Negative (Normal) :1 C-Reactive Protein, 2.1 mg/L (Normal) Comments: PATIENT NOT FASTINGPERFORMED BY: [address] [id number] BY: [facility] [facility] [id number] Quant Range: 0.0-4.9 :19 Rheumatoid Arthritis Comments: PATIENT NOT FASTINGPERFORMED BY: [address] [id number] BY: [place] 6106270 [facility] [id number] Factor RA Latex Turbid. 7.8 {IU/mL} Range: 0.0-13.9 (Normal) Sedimentation 8 mm/h (Normal) Comments: PATIENT NOT FASTINGPERFORMED BY: [address] [id number] BY: [place] 6106270 [facility] [id number] :19 Rate-Westergren Range: 0-30 Thyroid Peroxidase (TPO) 8 {IU/mL} (Normal) Comments: PATIENT NOT FASTINGPERFORMED BY: [address] [id number] BY: [place] 6106270 [facility] [id number] :19 Ab Range: 0-34 :19 Thyroxine (T4) Free, Comments: PATIENT NOT FASTINGPERFORMED BY: [address] [id number] BY: [place] 6106270 [facility] [id number] Direct, S T4,Free(Direct) 1.11 ng/dL Range: 0.82-1.77 (Normal) Triiodothyronine,Free,Seru 2.5 pg/mL (Normal) Comments: PATIENT NOT FASTINGPERFORMED BY: [facility]1447 [facility] [id number] BY: [facility]6370 [facility] [id number] 2:19 m Range: 2.0-4.4 TSH 3.450 {uIU/mL} Comments: PATIENT NOT FASTINGPERFORMED BY: [facility] [id number] BY: [facility]6370 [facility] [id number] 2:19 (Normal) Range: 0.450-4.500 1-Mox-993097:30 Pathology Report Comments: PERFORMED BY: [employer] [facility] Jkjat04377 [facility] [id number] Information: [id number] See MATER Comments: Material submitted: .FOREHEAD SHAVE [...] IN CASSETTE(S) A./CORCOR/CORPa thologist provided ICD-10:D48.5, L90.9CPT .694316 64-Zeu-38883:22 TESTOSTERONE FREE (02250) Comments: PATIENT WAS FASTINGPERFORMED BY: [employer] [facility] [id number] BY: [employer] [id number] Free Testosterone(Direct) 2.5 pg/mL (Abnormal) Range: 6.6-18.1 37-Vip-94953:22 VITAMIN B-12 (CYANOCOBALAMIN) Comments: PATIENT WAS FASTINGPERFORMED BY: [employer] [facility] Hospital[facility] (MemberRx)Counts include 234 beds at the [facility] [id number] BY: [employer] [id number] ([address]) Vitamin B12 638 pg/mL (Normal) Range: 211-946 10-Hfe-57259:22 CBC W/AUTO DIFF WBC Comments: PATIENT WAS FASTINGPERFORMED BY: [employer] [facility] Hospital[facility] (MemberRx)Counts include 234 beds at the [facility] [id number] BY: [employer] [id number] Inf ormation: NURSE DRAW (42291) Immature Grans (Abs) 0.0 {x10E3/uL} (Normal) Range: [...] 4.14-5.80 WBC 7.3 {x10E3/uL} (Normal) Range: 3.4-10.8 26-Uos-51102:22 METABOLIC PANEL, Comments: PATIENT WAS FASTINGPERFORMED BY: CB [facility] Yjjgom1026 [facility] [id number] BY: [facility] [address] [id number] [facility] ([address]) ALT (SGPT) 12 [iU]/L (Normal) Range: 0-44 [...] Glucose, Serum 100 mg/dL (Abnormal) Range: 65-99 38-Zbc-48809:52 CBC W/Diff, Automated Comments: [facility] Ejngwqknog7846 [address] [place], [place], [address] Absolute Lymph 1.73 {X10_3/ul} (Normal) Range: 0.83-4.51 [...] 4.6-6.2 WBC 6.0 K/mm3 (Normal) Range: 4.4-11.0 76-Hji-04812:52 Comprehensive Metabolic Profil Comments: [facility] Rwsktjjpjb4918 Andrea [place], [place], [address] GAP 6 (Normal) Range: 5-15 CO2 26.0 [...] (Normal) Range: 70-110 :52 Hemoglobin A1c Comments: [facility] [address] [place], [place], [address] HGB A1C 5.6 % (Normal) Range: 4.2-6.3 :52 Lipid Profile Comments: [facility] Edwkhipyss[address] [place], [address] VLDL 21 mg/dL (Normal) Range: [...] High Risk :52 Microalb:Creat Ratio,Random UR Comments: [facility] [address] [place], [address] MALB:CREAT 9.1 {mg/g_CRE} (Normal) MICROALBUMIN,UR 9.0 mg/L (Normal) UR CREAT 99.50 mg/dL (Normal) :52 PSA,Total - Annual Screen Comments: [facility] [address] [place], [address] PSA,TOT SCREEN 0.51 ng/mL (Normal) Range: 0.00-4.00 Comments: This test was performed using the TPSA assay method for [employer] chemistry system. Values obtained with differentassay methods cannot be used interchangably.When changing PSA assays in the course of monitoring apatient, additional sequential testing should be carriedout to confirm baseline values. COLON BIOPSY (CHOOSE See Note (Normal) Comments: [facility] Cppvrrhdup7105 [place], [address] :45 SITE) Comments: Patient: YUMIKO LANDRUM : 1950 (64/M) Acct Num: [id number] Phys: Hugo Bullock Unit Num: [id number] Loc: [facility] Specimen: [id number] Received: 09/11/151646 Spec Type: C OLON BX [...] in one cassette. / IRON:momo 09/11 TC:1 CPT:50586 x2 HEADER OPERATION: Colonoscopy with biopsy PRE-OP DIAGNOSIS: Screening/polyp TISSUE SUBMITTED: A - Polyp cecum, R/O adenoma, B - Polyp sigmoid, R/O adenoma MICROSCOP IC DESCRIPTION Slides are reviewed. MICROSCOPIC DIAGNOSIS A. Polyp cecum, biopsy: Fragments of tubular adenoma. B. Polyp sigmoid, biopsy: Fragments of tubular adenoma. SJ:momo 09/15/15 Signed Pamella Son 09/15/15 <signature on file> :37 CBC W/Diff, Automated Comments: [facility] Cbyvzbjcul0241 [address] [place], [place], [address] ; noon-emergent till apt Absolute Lymph 1.39 [...] 4.6-6.2 WBC 6.5 K/mm3 (Normal) Range: 4.4-11.0 74-Jef-554102:37 Comprehensive Metabolic Profil Comments: [facility] Oviiyzkuun8948 [address] [place], [place], [address] GAP 6 (Normal) Range: 5-15 CO2 27.0 [...] <126 mg/dLsuggests IMPAIRED HOMEOSTASIS per A.D.A. criteria. 16-Eov-111869:37 Hemoglobin A1c Comments: [facility] Mgqqiaoemh8951 [facility]. [place], [place], [address] HGB A1C 5.6 % (Normal) Range: 4.2-6.3 52-Smg-577603:37 Lipid Profile Comments: [facility] [address] [place], [place], [address] VLDL 17 mg/dL (Normal) Range: 5-40 LDL [...] 200-240 mg/dL Borderline >240 mg/dL High Risk 0-Qwv-471306:12 Factor II, DNA Analysis Comments: [facility] (refer to report for specific site)refer to report for address and phone number COMMENT Comment (Normal) Comments: Genetic Counselors are available for health care providersto discuss results at [phone] (2353).Methodology:DNA analysis of the Factor II gene was performed by PCRamplification followed by restric tion analysis. Thediagnostic sensitivity is >99% for both. All the tests mustbe combined with clinical information for the most accurateinterpretation. Molecular-based testing is highly accurate,but as in any laboratory test, diagnostic errors may occur.Matthewt SR, et al. Blood. 1996; 88:4294-9952.Diallo EA. Circulation. 2004; 110:e15-e18.Bobby I, et al. Arterioscler Thromb Vasc Biol. 1999;19:700 -703.Lance Shea, PhDRuthie Cooper, PhDAnahy Delgado, Lorena Beal, Xiomara Easley, PhDKelly Benjamin, PhDPerformed at: TG - [facility] BNV[address] [place], [place] [id number] villa: Vilma Butterfield MD, Phone: [phone] FACTOR II,DNA Comment (Normal) Comments: NEGATIVENo mutation identified.Comment:A point mutation ([id number]) in the factor II (prothrombin)gene is the [...] individual mutations. This assaydetects only the prothrombin [id number] mutation and doesnot measure genetic abnormalities elsewhere i n thegenome. Other thrombotic risk factors may be pursuedthrough systematic clinical laboratory analysis. Thesefactors include the R506Q (Leiden) mutation in the Factor Vgene, plasma homocysteine levels , as well as testing fordeficiencies of antithrombin III, protein C and protein S. 76-Vgv-84942:42 Miscellaneous Comments: Comments: [id number],PLASMA,[facility](s) Ordered: [id number],PLASMA,[facility] [address] [place], [address] Lab Procedure MISC Comments: TEST RESULT UNITS REFERENCE INTERVALAntithrombin III, Func/ImmunolAntithrombin Activity 97 % 75 - 135Antithrombin Antigen 97 % 75 - 130 LAB (Normal) TESTING PERFORMED AT [facility]. ORIGINAL REPORT ON FILE IN LAB CONTAINS ADDITIONAL TEST SITE INFORMATION. TEST 1 Throm 15.9 Comments: [facility] (refer to report for specific site)refer to report for address and phone number 9 bin {sec} Range: 0.0-20.0 - Time (Normal) Comments: Performed at: [address] [place], [place] [id number] Director: Joseph Velez MD, Phone: [phone] F e b - 2 0 1 6 9 : 4 2 :34 CBC W/Diff, Automated Comments: [facility] [address] [place], [address] Absolute Lymph 1.34 {X10_3/ul} (Normal) Range: 0.83-4.51 [...] (Normal) Range: 4.4-11.0 :34 Comprehensive Comments: Comments: [id number],ELENO PALMEROhio[facility] [address] [place], [place], [id number] ; apt today Metabolic Profil GAP 8 [...] 7-18 GLU 109 mg/dL (Normal) Range: 70-110 19-Tav-04898:34 Fact V Leiden Mutation Comments: [facility] (refer to report for specific site)refer to report for address and phone number COMMENT Comment (Normal) Comments: Genetic counselors are available for health careproviders to discuss results at [phone]).Methodology:DNA analysis of the Factor V gene was performed by allele-specific PCR. The diagno stic sensitivity and specificity is>99% for both. Molecular-based testing is highly accurate,but as in any laboratory test, diagnostic errors may occur.All test results must be combined with clinical informationfor the most accurate interpretation.References:Rodrick Disla (1996). Clin Lab Med 16:169-186.Lance Shea, PhDRuthie Cooper, PhDLorena Wheatley, Xiomara lugo, PhDKelly Benjamin, PhDPerformed at: - [facility]CoBayonne Medical CenterLxuemfmvku0217 [place], [place] [address]Jsg Director: Joseph Velez MD, Phone: [phone] at: [facility] LabCo [address] [place], [place] [id number] Director: Vilma Butterfield MD, Phone: [phone] FACTOR V LEIDEN Comment (Normal) Comments: Result: [...] in the workup for venous thrombosis include [id number] mutation in the factor II (prothrombin) gene,protein S and C deficiency, and antithrombin deficiencies.Anticardiolipin antibody and lupus anticoagu lant analysismay be appropriate for certain patients, as well ashomocysteine levels.Contact your local [facility] for information on how to orderadditional testing if desired. :34 Hemoglobin A1c Comments: [facility] [address] [place], [place], [address] HGB A1C 5.6 % (Normal) Range: 4.2-6.3 :34 Lipid Profile Comments: Comments: [id number],[facility]ER[facility] [address]vn[address] [place], [address] VLDL 17 mg/dL (Normal) Range: [...] 200-240 mg/dL Borderline >240 mg/dL High Risk 22-Zee-06812:34 Miscellaneous Lab Comments: Comments: [id number],BLUEANDRED,FZTest(s) Ordered: SPENCER Gonsalves FZOhio[facility] [address] [place], [address] Procedure MIS Comments: TEST RESULT UNITS REFERENCE INTERVALAntiphospholipid SyndromeaPTT [...] anticoagulant is not de tected. aCL and X9QH1edcemerlkx are normal.ANTIPHOSPHOLIPID SYNDROME ASSESSMENT SUMMARY-No evidence of a lupus anticoagulant, B2GP1 or aCLantibodies. As antibody titers may fluctuate with time,repeat te sting may be indicated if antiphospholipid syndromeis suspected.ANTIPHOSPHOLIPID SYNDROME ASSESSMENT DEFINITIONS-aCL- anticardiolipin (antibodies to cardiolipin); B5PQ4-bzvngfrxod to Beta-2 Glycoprotein 1; LA- lupus anticoagulant(which is identified with the dRVVT and/or hexagonalphospholipid neutralization assays); aPL- antibodies toprotein/phospholipid complexes such as LA, aCL, and K7YW6okutpgrjbt; APS- antiphospholipid syndrome; DTI-directthrombin inhibitors.-THREE DIMENSIONAL ART INSTRUCTOR:For questions regarding panel interpretation, please contactHalle Arrington M.D. ([place]) or [facility]/Abdullahi hoyt Coagulation at . DISCLAIMERThese assessments and [...] V et al. J Thromb Haemost. 2009; 7(10):8011-6334.(2) Tyrone S et al. J Thromb H aemost. 2006;4(2):295-306.(3) Keith DA et al. Blood. 2007;110(9): 3902-7086. TESTING PERFORMED AT [facility]. ORIGINAL REPORT ON FILE IN LAB [...] PROTEIN S,TOTAL 136 % (Normal) Range: 58-150 17-Hye-119538:54 CBC W/Diff, Automated Comments: [facility] [address] [place], [place], [address] Absolute Lymph 1.61 {X10_3/ul} (Normal) Range: 0.83-4.51 [...] 4.6-6.2 WBC 7.1 K/mm3 (Normal) Range: 4.4-11.0 18-Gzo-908420:54 Comprehensive Metabolic Profil Comments: [facility] [address] [place], [place], [address] GAP 7 (Normal) Range: 5-15 CO2 26.0 [...] 7-18 GLU 98 mg/dL (Normal) Range: 70-110 12-Pdj-901583:54 Lipid Profile Comments: [facility] [address] [facility] [place], [address] ; apt today VLDL 19 [...] :55 Comprehensive Metabolic Profil Comments: Test performed at:[facility] [address] [facility] [place] [address] GAP 7 (Normal) Range: 5-15 [...] Comments: Please note revised CREATININE reference range dtsfwgrbi56/22/2015. BUN 15 mg/dL (Normal) Range: 7-18 GLU 103 mg/dL (Normal) Range: 70-110 :55 Hemoglobin A1c Comments: Test performed at:[facility] [address] [place] [address] HGB A1C 6.0 % (Normal) Range: 4.2-6.3 :55 Lipid Profile Comments: Test performed at:[facility] [address] [place] [address] VLDL 17 mg/dL (Normal) Range: 5-40 LDL [...] 200-240 mg/dL Borderline >240 mg/dL High Risk 23-Jzs-127772:49 Anti-dsDNA Ab Comments: ADDED PER VERBAL ORDER - FAXED ORDER TO FOLLOWSpecimen Comment: A duplicate report has been generated due to demographicSpecimen Comment: updates.Test performed at:[facility] Laboratory1 [address] [place] [address] dsDNA AB 12 {IU/mL} (Abnormal) Range: 0-9 Comments: Negative <5 Equivocal 5 - 9 Positive >9; ADDENDA: non-emergent because has apt today to discuss. 64-Ofu-510593:49 ANTINUCLEAR ANTIBODIES DIRECT Comments: Test performed at:[facility] [address] [place] [address] JOHN-DIRECT Positive (Abnormal) Comments: Performed at: [address] [id number] Director: Reno Yanes PhD, Phone: [phone] 70-Wzp-755699:49 CBC W/Diff, Automated Comments: Test performed at:[facility] [address] [place] [address] Absolute Lymph 1.22 {X10_3/ul} (Normal) [...] 4.6-6.2 WBC 4.9 K/mm3 (Normal) Range: 4.4-11.0 13-Yxb-586108:49 Comprehensive Metabolic Profil Comments: Test performed at:[facility] [address] [place] [address] GAP 6 (Normal) Range: 5-15 [...] 7-18 GLU 104 mg/dL (Normal) Range: 70-110 44-Vai-429215:49 CRP Comments: Test performed at:[facility] [address] [facility] [place], [place] [id number] C-REACTIVE PROT < 2.90 mg/L (Normal) Range: 0.0-3.0 Comments: C-Reactive Protein (CRP) provides useful information for thediagnosis, therapy and monitoring of inflammatory processesand associated diseases. For the evaluation of Relative Riskfor Cardiovascular Dise ase, a High Sensitivity CRP (HSCRP)should be ordered. :49 Culture, Urine Comments: Test performed at:[facility] [address] [place] [address] CUUR See Note (Normal) Comments: Urine CultureCulture exhibits no growth.; ADDENDA: Pt has apt today, will discuss then :49 Erythrocyte Sed Rate Comments: Test performed at:[facility] [address] [place] [address] SED RATE 21 mm/h (Abnormal) Range: 0-20 61-Ddf-013813:49 Hemoglobin A1c Comments: Test performed at:[facility] [address] [place] [address] HGB A1C 5.8 % (Normal) Range: 4.2-6.3 17-Ptu-906430:49 Lipid Profile Comments: Test performed at:[facility] [address] [place] [address] VLDL 8 mg/dL (Normal) Range: [...] 200-240 mg/dL Borderline >240 mg/dL High Risk 08-Dlm-031620:49 Microalb:Creat Ratio,Random UR Comments: Test performed at:[facility] [address] [place] [address] MALB:CREAT 12.2 {mg/g_CRE} (Normal) MICROALBUMIN,UR 17.2 mg/L (Normal) UR CREAT 140.0 mg/dL (Normal) :49 PSA,Total - Annual Screen Comments: Test performed at:[facility] [address] [place] [address] PSA,TOT SCREEN 0.47 ng/mL (Normal) Range: 0.00-4.00 Comments: This test was performed using the TPSA assay method for [employer] chemistry system. Values obtained with differentassay methods cannot be used interchangably.When changing PSA assays in the course of monitoring apatient, additional sequential testing should be carriedout to confirm baseline values. :49 Thyroid Stim Hormone (TSH) Comments: Test performed at:[facility] [address] [place] [address] TSH 1.60 {uIU/mL} (Normal) Range: 0.358-3.74 69-Caf-753521:49 Urinalysis, Complete Comments: How was Urine Obtained? Urine, RandomTest performed at:[facility] [address] [place] [address] MUCUS, URINE 2+ {/hpf} (Normal) BACTERIA 1+ [...] How was Urine Obtained? Urine, RandomTest performed at:[facility] [address] [facility] [place] [address] MUCUS, URINE 0 SEEN {/hpf} [...] (Normal) CLARITY Clear (Normal) COLOR Yellow (Normal) 25-Spg-708052:07 Comprehensive Metabolic Profil Comments: Test performed at:[facility] [address] [facility]. [place], [place] [address] GAP 6 (Normal) Range: 5-15 CO2 28.0 [...] 7-18 GLU 108 mg/dL (Normal) Range: 70-110 42-Wlb-325685:07 CPK Total, Creatine Kinase Comments: Test performed at:[facility] [address] [place], [place] [address] CPK TOTAL 91 U/L (Normal) Range: 39-308 97-Wpb-337189:56 Rapid Flu (69481 x 2) Influenza A Ag negative (Normal) 0-Aqv-483828:28 URINE WARREN CULTURE-MASSIEL COL Comments: PATIENT NOT FASTINGPERFORMED BY: [facility] Okyqfq0078 [facility] [id number] Information: SRC:UR [id number] COUNT (21436) Result 1 ECV (Abnormal) Comments: Escherichia coli, [...] R Urine Final report Culture,Comprehensi (Abnormal) ve 8-Emb-692873:58 Urinalysis, Office (70435) UA - LEUKOCYTE ESTERASE Small (Normal) UA - NITRITE Negative (Normal) URINE UROBILINGN MASSIEL TIMED 2 mg/dL (Normal) UA - PROTEIN 30 mg/dL (Normal) UA - PH 6.0 (Normal) Comments: 5.5 UA - BLOOD Hemolyzed Small (Normal) UA - SPECIFIC GRAVITY 1.030 (Abnormal) UA - KETONES Negative mg/dL (Normal) UA - BILIRUBIN Small (Normal) UA - GLUCOSE Negative (Normal) 0-Lyf-832024:41 URINE WARREN CULTURE-MASSIEL COL Comments: PATIENT NOT FASTINGPERFORMED BY: [facility]6370 [facility] [id number] Information: SRC: URINE COUNT (78998) Result 1 ECV (Abnormal) Comments: Escherichia coli, [...] R Urine Final report Culture,Comprehensi (Abnormal) ve 6-Wmy-163132:27 Urinalysis, Office (28613) UA - LEUKOCYTE ESTERASE Trace (Normal) UA - NITRITE Negative (Normal) URINE UROBILINGN MASSIEL TIMED 2 mg/dL (Normal) UA - PROTEIN Negative mg/dL (Normal) UA - PH 6.0 (Normal) UA - BLOOD Negative (Normal) UA - SPECIFIC GRAVITY 1.010 (Normal) UA - KETONES Negative mg/dL (Normal) UA - BILIRUBIN Negative (Normal) UA - GLUCOSE Negative (Normal) 8-Mrb-888211:30 HgA1C , Office (66829) HgA1C , Office 5.7 % (Normal) Range: 4.6 - 7.1 5-Vxg-188605:10 URINE WARREN CULTURE-MASSIEL COL Comments: PATIENT NOT FASTINGPERFORMED BY: [facility]6370 [facility] [id number] Information: SRC:UR [id number] COUNT (88066) Result 1 NG36 (Normal) Comments: No growth in 36 - 48 hours. Urine Culture,Comprehensive Final report (Normal) 1-Jys-837477:58 CBCD PATHR Reviewed (Normal) RBCM NORM C+C [...] 4.6-6.2 WBC 5.2 K/mm3 (Normal) Range: 4.4-11.0 5-Fej-270022:58 CMP GAP 7 (Normal) Range: 5-15 CO2 [...] CHOL 155 mg/dL (Normal) Comments: <200 mg/dL Fdpuwetww205-615 mg/dL Borderline>240 mg/dL High Risk TRIG 121 [...] (Normal) UCLAR Clear (Normal) UCOL Yellow (Normal) 83-Hck-656657:20 CUUR URC See Note (Normal) Comments: ESBL+ [...] >=320 R (NF) indicates non-formulary drug at [facility]. Approval by Infectious DiseaseSpecialist required before non-formulary drugs may beordered and/or dispensed. 93-Fep-731176:20 UA Comments: How was Urine Obtained? CLEAN CATCH ANGE 500 /ul (Abnormal) MICA Negative (Normal) UOB 25 /ul (Abnormal) LEESA 6.0 (Normal) Range: 5.0 - 8.0 uPROTU 30 mg/dL (Abnormal) UROBU 1 mg/dL (Abnormal) KETU Negative mg/dL (Normal) SGU 1.015 (Normal) Range: 1.002-1.030 BILIU Negative mg/dL (Normal) GLUR Normal mg/dL (Normal) UCLAR Cloudy (Normal) UCOL Yellow (Normal) 95-Vmc-130710:27 A1C 5.6 % (Normal) Range: 4.2-6.3 32-Hbv-871829:27 B12 574 pg/mL (Normal) Range: 211-911 34-Juq-340846:27 CBC MPV 8.8 fL (Normal) Range: 6.2-12.0 [...] 4.6-6.2 WBC 6.4 K/mm3 (Normal) Range: 4.4-11.0 06-Iuh-733014:27 CUUR URC Culture exhibits no growth. (Normal) 76-Xsu-554161:27 EBGM EBNA 81.6 U/mL (Abnormal) Range: 0.0-17.9 Comments: Negative <18.0Equivocal 18.0 - 21.9Positive >21.9 tEBINT Comment (Normal) Comments: EBV Interpretation ChartInterpretation EBV-IgM VCA-IgG EBNA-IgG EA(D)-IgGEBV Seronegative - - - -Early Phase + - - -Acute Primary + + - +or-InfectionConvalescence/Past - + + +or-InfectionReactivated +or- + + +Infection+ Antibody Present - Antibody Absen tPerformed at: [facility] Lab[address] [id number] Director: Melquiades Hector MD, Phone: [phone] EBEAG <9.0 U/mL (Normal) Range: 0.0-8.9 Comments: [...] <0.05 NEGATIVE0.06 - 0.59 AT RISK OF NC> OR = 0.60 SUGGEST NC :47 HgA1C , Office (97937) HgA1C , Office 6.3 % (Normal) Range: [...] CHOL 147 mg/dL (Normal) Comments: <200 mg/dL Cwljtmvto143-168 mg/dL Borderline>240 mg/dL High Risk 0-Cep-530939:55 Rapid Flu (03544 x 2) Comments: neg Influenza A Ag negative (Normal) 2-Ebd-794033:02 FECAL OCCULT- Tubes sent home (32396) FECAL OCCULT HGB ASSAY, QUAL, 1-3 negative (Normal) SIMULTANEOU :39 B12 510 pg/mL (Normal) Range: 211-911 [...] {IU/mL} (Normal) Range: 0-100 Comments: Performed at: [facility] Lab[address] Director: Melquiades Hector MD, Phone: [phone] IMM 55 mg/dL (Normal) Range: 40-230 DEBBY 182 mg/dL (Normal) Range: 91-414 IMG 788 mg/dL (Normal) Range: 700-1600 :39 LDH 190 U/L (Normal) Comments: Serial Specimen #1, #2 or #3? 1Is Patient Taking Vitamins or Folic Acid Supplements? N Range: 84-246 :39 PROEL Comments: Is Patient Fasting? Y x21SSEIHQ Comment (Normal) Comments: Protein electrophoresis scan will follow via computer,mail, or store stock help delivery. tPROELAG 1.6 (Normal) Range: 0.7-2.0 tPROELIN [...] Supplements? N Range: 250-450 :56 CULTURE, SPUTUM (82320) Comments: PATIENT NOT FASTINGPERFORMED BY: [facility] CenterZxhxxq0499 [facility] [id number] Information: SRC:[facility] [id number] Result 1 RRF (Normal) Comments: Routine respiratory ashkan Lower Respiratory Culture Final report (Normal) :32 HgA1C , Office (94083) HgA1C , Office 5.9 % (Normal) Range: 4.6 - 7.1 :32 Blood Glucose , Office (52624) Blood Glucose , Office 90 (Normal) :51 [...] 4.6-6.2 WBC 7.2 {k/mm3} (Normal) Range: 4.4-11.0 91-Wbp-878775:51 CMP GAP 9 (Normal) Range: 5-15 CO2 [...] CHOL 149 mg/dL (Normal) Comments: <200 mg/dL Awupihcme120-199 mg/dL Borderline>240 mg/dL High Risk :51 PSA 0.51 ng/mL (Normal) Range: 0.00-4.00 Comments: This test was performed using the TPSA assay method for theGraymark Healthcare chemistry system. Values obtained with differentassay methods cannot be used interchangably.When changing PSA assays in the course of monitoring apatient, additional sequential testing should be carriedout to confirm baseline values. 53-Cnt-352960:59 MISC (Normal) Comments: TEST RESULT LIMITSAntinuclear Antibodies, [...] 4.6-6.2 WBC 7.8 {k/mm3} (Normal) Range: 4.4-11.0 63-Kek-898794:32 CMP GAP 10 (Normal) Range: 5-15 CO2 [...] CHOL 154 mg/dL (Normal) Comments: <200 mg/dL Ysfaxdlzn044-247 mg/dL Borderline>240 mg/dL High Risk HDL 64 [...] Negative /ul (Normal) UOB Negative /ul (Normal) IMCA Negative (Normal) UROBU Normal mg/dL (Normal) uPROTU 15 mg/dL (Abnormal) LEESA 5 (Normal) Range: 5.0 - 8.0 SGU 1.020 (Normal) Range: 1.002-1.030 KETU 5 mg/dL (Abnormal) BILIU Negative mg/dL (Normal) GLUR Normal mg/dL (Normal) UCLAR Clear (Normal) UCOL Yellow (Normal) 55-Tiu-487740:11 AFBCS tAFBC See Note Comments: TESTING PERFORMED AT [facility]. ORIGINAL REPORT ONFILE IN LAB CONTAINS ADDITIONAL TEST SITE INFORMATION. (Normal) CULTURE, ACID FAST FINAL CULTURE REPORT TO FOLLOW IN 6 WEEKS. tAFBSF See Note Comments: TESTING PERFORMED AT [facility]. ORIGINAL REPORT ONFILE IN LAB CONTAINS ADDITIONAL TEST SITE INFORMATION. (Normal) ACID FAST BACILLUS SMEARAcid Fast Smear from Concentrated Specimen :Negative 67-Far-326419:11 CUFST FUNST See Note Comments: TESTING PERFORMED AT [facility]. ORIGINAL REPORT ONFILE IN LAB CONTAINS ADDITIONAL TEST SITE INFORMATION. (Normal) FUNGUS STAIN No yeast or mold observed. CUF See Note Comments: TESTING PERFORMED AT [facility]. ORIGINAL REPORT ONFILE IN LAB CONTAINS ADDITIONAL TEST SITE INFORMATION. (Normal) CULTURE, FUNGUSNO YEAST OR MOLD ISOLATED AFTER 4 WEEKS. 26-Mjw-138754:11 CUSP RESPC See Note (Normal) Comments: No [...] IN CHAINS AND CLUSTERS1+ GRAM POSITIVE RODS 37-Fam-023713:23 AFBCS tAFBC See Note Comments: TESTING PERFORMED AT [facility]. ORIGINAL REPORT ONFILE IN LAB CONTAINS ADDITIONAL TEST SITE INFORMATION. (Normal) CULTURE, ACID FAST FINAL CULTURE REPORT TO FOLLOW IN 6 WEEKS. tAFBSF See Note Comments: TESTING PERFORMED AT [facility]. ORIGINAL REPORT ONFILE IN LAB CONTAINS ADDITIONAL TEST SITE INFORMATION. (Normal) ACID FAST BACILLUS SMEARNO ACID-FAST BACILLI OBSERVED ON SMEAR. 32-Voq-269465:23 CUFST FUNST See Note Comments: TESTING PERFORMED AT [facility]. ORIGINAL REPORT ONFILE IN LAB CONTAINS ADDITIONAL TEST SITE INFORMATION. (Normal) FUNGUS STAIN No yeast or mold observed. CUF See Note Comments: TESTING PERFORMED AT [facility]. ORIGINAL REPORT ONFILE IN LAB CONTAINS ADDITIONAL TEST SITE INFORMATION. (Normal) CULTURE, FUNGUSNO YEAST OR MOLD ISOLATED AFTER 4 WEEKS. 94-Kec-500558:21 AFBCS tAFBC See Note Comments: TESTING PERFORMED AT [facility]. ORIGINAL REPORT ONFILE IN LAB CONTAINS ADDITIONAL TEST SITE INFORMATION. (Normal) CULTURE, ACID FAST FINAL CULTURE REPORT TO FOLLOW IN 6 WEEKS. tAFBSF See Note Comments: TESTING PERFORMED AT [facility]. ORIGINAL REPORT ONFILE IN LAB CONTAINS ADDITIONAL TEST SITE INFORMATION. (Normal) ACID FAST BACILLUS SMEARAcid Fast Smear from Concentrated Specimen :Negative 80-Rtc-651971:21 CUFST FUNST See Note Comments: TESTING PERFORMED AT [facility]. ORIGINAL REPORT ONFILE IN LAB CONTAINS ADDITIONAL TEST SITE INFORMATION. (Normal) FUNGUS STAIN YEAST OBSERVED CUF See Note Comments: [facility] AT [facility]. ORIGINAL REPORT ONFILE IN LAB CONTAINS ADDITIONAL TEST SITE INFORMATION. (Normal) CULTURE, FUNGUSNO YEAST OR MOLD ISOLATED AFTER 4 WEEKS. 16 AFBSTN SEE Comments: Specimen submitted to Anatomical Pathology Department fortesting. - PATHOLOGY ay REPORT -2 (Normal) 32 2: 00 16 AFBSTN SEE Comments: PATIENT BROUGHT SPECIMEN IN ON 07/11/12. - PATHOLOGY Comments: Specimen submitted to Anatomical Pathology Department fortesting. ay REPORT -2 (Normal) 30 :0 0 12 AFBSTN SEE Comments: PATIENT BROUGHT SPECIMEN IN ON 07/11/12 - PATHOLOGY Comments: Specimen submitted to Anatomical Pathology Department fortesting. ay REPORT -2 (Normal) 39 :0 0 60-Pvy-671112:05 WARREN CULTURE-OTHER (77976) Comments: PATIENT NOT FASTINGPERFORMED BY: [facility] Sqkrhf9186 [facility] [id number] Information: SRC: THROAT Result 1 RRF (Normal) Comments: Routine respiratory ashkan Upper Respiratory Culture Final report (Normal) 47-Cnl-076845:23 Rapid Strep Test, Office (04415) Rapid Strep Test, Office Negative (Normal) 0-Gwb-061786:15 CBCMD RBCM NORM C+C {NORMAL} (Normal) PE [...] 4.6-6.2 WBC 8.3 K/mm3 (Normal) Range: 4.4-11.0 4-Mff-755218:15 CMP GAP 10 (Normal) Range: 5-15 CO2 [...] 7-18 GLU 81 mg/dL (Normal) Range: 70-110 6-Rco-008566:15 LIPID VLDL 12 mg/dL (Normal) Range: 5-40 [...] Alvarado M.D.January 27, 2012 at 2:39:03 PM [id number] Signed GP/GP If you are the refe rring physician and would like to consult with theradiologist who provided this interpretation, please contact Itzel Linares at [phone]. If this radiologist is unavailable, youwill be dir ected to another radiologist to assist. If you are a patient with a question regarding this report, pleasecontactyour referring physician directly. Professional Interpretation Provided By: [employer], Phone , These documents contain legally protected [...] Schwarz D.O.January 26, 2012 at 8:55:02 PM [id number] Signed BE/B E If you are the referring physician and would like to consult with theradiologist who provided this interpretation, please contact Yogi Schwarz D.O. at [phone]. If this radiologist is unavailable, yo u will bedirected to another radiologist to assist. If you are a patient with a question regarding this report, pleasecontactyour referring physician directly. Professional Interpretation Provided By: [employer], Phone , These documents contain legally protected [...] 01/26/12 2100 Sign by: Yogi Schwarz MD 05-Gdt-673588:13 CUSP RESPC See Note (Normal) Comments: No [...] GRAM POSITIVE COCCI IN CHAINS AND CLUSTERS 29-Hvh-929509:56 HgA1C , Office (49449) HgA1C , Office 6.1 % (Normal) Range: 4.6 - 7.1 :56 Blood Glucose , Office (94600) Blood Glucose , Office 116 (Normal) : [...] :01 TSH 1.98 {uIU/mL} (Normal) Range: 0.358-3.74 :25 CMP GAP 7 (Normal) Range: 5-15 CO2 [...] 7-18 GLU 107 mg/dL (Normal) Range: 70-110 53-Wrv-544941:25 LIPID VLDL 12 mg/dL (Normal) Range: 5-40 [...] performed using the TPSA assay method for theGraymark Healthcare chemistry system. Values obtained with differentassay methods cannot be used interchangably.When ch anging PSA assays in the course of monitoring apatient, additional sequential testing should be carriedout to confirm baseline values. 06-Kyx-133690:25 UAC UMUC 0 SEEN {/hpf} (Normal) UBAC [...] UCOL YELLOW (Normal) :44 HgA1C , Office (85635) HgA1C , Office 6.3 % (Normal) Range: 4.6 - 7.1 :44 Blood Glucose , Office (36602) Blood Glucose , Office 114 (Normal) :13 HgA1C , Office (83773) HgA1C , Office 6.2 % (Normal) Range: 4.6 - 7.1 :13 Blood Glucose , Office (37682) Blood Glucose , Office 100 (Normal) :55 HgA1C , Office (13185) HgA1C , Office 5.8 % (Normal) Range: 4.6 - 7.1 :55 Blood Glucose , Office (78117) Blood Glucose , Office 85 (Normal) :51 WARREN CULTURE-OTHER (60410) Comments: PATIENT NOT FASTINGPERFORMED BY: [facility]6370 [facility] [id number] Information: SRC:THRDaljit [id number] Result 1 Yeast isolated. (Normal) Comments: Heavy growthRequest for further identification must be madewithin 1 week. Upper Respiratory Culture Final report (Normal) :14 Rapid Strep Test, Office (92073) Rapid Strep Test, Office Negative (Normal) :24 [...] serialsampling is recomme nded. TESTING PERFORMED AT [facility]. ORIGINAL REPORT ON FILE IN LAB CONTAINS [...] cells for the productionof interferon gamma.Performed at: [facility] [address] [id number] Director: Joseph Velez MD, Phone: [phone] QFT AG - NIL 0 {IU/mL} (Normal) [...] of Hgb A1C has changed to [employer] Stromed[employer]TANo significant changes in patient results are expected. [...] >240 mg/dL High Risk :03 VIT D,25 86166 38.0 ng/mL (Normal) Comments: appt 03-08-10 Range: 32.0-100.0 Comments: Effective January 11, 2011 Vitamin D, 25-Hydroxy reference intervals will be changing to 30-100. .Recent studies consider the lower li chilo of 32.0 ng/mL to be athreshold for optimal health.Mark LUDWIG. J Nutr. 2004;135(2):317-22.Performed at: - [address] Director: Lakshmi Pino MD, Phone: [phone] VITAMIN B12 696 pg/mL (Normal) Range: 254-1320 Comments: There is a low frequency possibility that high titers ofintrinsic blocking antibodies may not be completely inactivated during the reaction pretreatment stepof this testing method. If test results are i n conflictwith the clinical diagnosis, patient should be testedfor the presence of intrinsic factor blocking antibodies. 88-Edq-094894:05 Rapid Strep Test, Office (05853) Rapid Strep Test, Office Negative (Normal) :00 CULTURE, THROAT See Note (Normal) Comments: Normal throat ashkan isolated. No beta-hemolyticstreptococcus isolated. 57-Puw-28600:00 CHEST WITHOUT CONTRAST Radiology Report See Note [...] 10/11/10 0244 Sign by: Clarke Butt MD 96-Hpv-519751:58 GALLBLADDER Radiology Report See Note (Normal) Comments: [...] Alvarado MD on 10/08/10 1402 Sign by: Christiano CALVO Rakesh 56-Tml-85662:00 CULTURE, URINE URINE CULTURE See Note {CFU/mL} (Normal) Comments: COLONY COUNT <1000 ORGANISM 1: MIXED GRAM POSITIVE ORGANISMS 87-Gwl-217974:19 Urinalysis, Office (81207) UA - BILIRUBIN Negative (Normal) UA - BLOOD Non Hemolyzed Trace (Normal) UA - GLUCOSE Negative (Normal) UA - KETONES Negative mg/dL (Normal) UA - LEUKOCYTE ESTERASE Negative (Normal) UA - NITRITE Negative (Normal) UA - PH 7.0 (Normal) UA - PROTEIN Negative mg/dL (Normal) UA - SPECIFIC GRAVITY 1.010 (Normal) URINE UROBILINGN MASSIEL TIMED Normal mg/dL (Normal) 62-Beu-78838:00 ABDOMEN/PELVIS WITHOUT CONT Radiology Report See Note [...] on 09/16/101715 Sign by: Cosmo Mahmood MD 51-Wwg-102677:11 HgA1C , Office (07201) HgA1C , Office 6.2 % (Normal) Range: 4.6 - 7.1 :11 Blood Glucose , Office (79460) Blood Glucose , Office 90 (Normal) :28 [...] 4.6-6.2 WBC 6.8 K/mm3 (Normal) Range: 4.4-11.0 96-Jye-53715:28 COMP METABOLIC GAP 5 (Normal) Range: 5-15 [...] mg/dL High Risk :53 HgA1C , Office (80861) HgA1C , Office 6.4 % (Normal) Range: 4.6 - 7.1 :53 Blood Glucose , Office (28815) Blood Glucose , Office 108 (Normal) :39 CULTURE, URINE URINE CULTURE Culture exhibits no growth. (Normal) :54 Urinalysis, Office (93451) UA - BILIRUBIN Negative (Normal) UA - BLOOD Negative (Normal) UA - GLUCOSE Negative (Normal) UA - KETONES Negative mg/dL (Normal) UA - LEUKOCYTE ESTERASE Negative (Normal) UA - NITRITE Negative (Normal) UA - PH 7.0 (Normal) UA - PROTEIN Negative mg/dL (Normal) UA - SPECIFIC GRAVITY 1.010 (Normal) URINE UROBILINGN MASSIEL TIMED Normal mg/dL (Normal) :37 HgA1C , Office (30313) HgA1C , Office 6.1 % (Normal) Range: 4.6 - 7.1 :37 Blood Glucose , Office (49415) Blood Glucose , Office 96 (Normal) :46 [...] 4.6-6.2 WBC 7.5 K/mm3 (Normal) Range: 4.4-11.0 69-Zdo-768853:46 COMP METABOLIC GAP 7 (Normal) Range: 5-15 [...] (Normal) Range: 0.0-4.0 :22 HgA1C , Office (69945) HgA1C , Office 6.1 % (Normal) Range: 4.6 - 7.1 :22 Blood Glucose , Office (56402) Blood Glucose , Office 123 (Normal) :47 HgA1C , Office (10663) HgA1C , Office 6.3 % (Normal) Range: 4.6 - 7.1 :47 Blood Glucose , Office (97635) Blood Glucose , Office 103 (Normal) :05 [...] (Normal) GLU 107 mg/dL (Normal) Range: 70-110 13-Gtt-49517:05 LIPID HDL 58 mg/dL (Normal) Comments: Reference RangeHDL <40 mg/dL Low HDL CholesterolHDL >or= 60 mg/dL High HDL Cholesterol LDL 77 mg/dL (Normal) Range: 0-130 VLDL 7 mg/dL (Normal) Range: 5-40 CHOL 142 mg/dL (Normal) Comments: <200 mg/dL [id number] mg/dL Borderline>240 mg/dL High Risk TRIG 35 mg/dL (Normal) Comments: Serum Triglycerides Reference IntervalNormal <150 mg/dLBorderline high 150 - 199 mg/dLHigh 200 - 499 mg/ dLVery High > or = 500 mg/dL 9-Oid-168251:24 HgA1C , Office (10804) HgA1C , Office 6.2 % (Normal) Range: 4.6 - 7.1 0-Xvm-902815:23 Blood Glucose , Office (34194) Blood Glucose , Office 96 (Normal) 37-Isz-287783:07 GASTRIC EMPTYING STUDY Radiology Report See Note (Normal) Comments: Exam Number: [id number] GASTRIC EMPTYING STUDY A gastric emptying study was performed. The patient ingested 1 mCi [id number] Sulfur colloid with oatmeal. HISTORYThis is a 58-year-old male patie nt with hist ory of bloating andgastroesophageal reflux. FINDINGSAt 1 hour, there is complete emptying of the stomach of theradiopharmaceutical. This is a normal study. IMPRESSIONNormal examination. There is no e vidence of gastric retention. Reported By: WILFREDO ALVARADO :33 HgA1C , Office (60503) HgA1C , Office 5.9 % (Normal) Range: 4.6 - 7.1 :33 Blood Glucose , Office (08179) Blood Glucose , Office 111 (Normal) :08 [...] Range: 0.0-4.0 :46 Blood Glucose , Office (44533) Blood Glucose , Office 156 (Normal) :46 HgA1C , Office (53930) HgA1C , Office 5.8 % (Normal) Range: 4.6 - 7.1 :12 HgA1C , Office (17546) Comments: done HgA1C , Office 5.8 % (Normal) Range: 4.6 - 7.1 :12 Blood Glucose , Office (69366) Comments: done Blood Glucose , Office 99 [...] mg/dL (Normal) Range: 200-370 Comments: Performed At: [address] [id number] Blood Glucose , Office (96696) Blood Glucose , Office 92 (Normal) :44 HgA1C , Office (46553) HgA1C , Office 5.7 % (Normal) Range: 4.6 - 7.1 :40 GLU GTT-2 HOUR 191 mg/dL (Abnormal) Comments: 2HR GTT GLU 2 HR GLU GTT-2 HOUR from 216:[id number]. Range: 70-120 :20 GLU GTT-1 HOUR 178 mg/dL (Abnormal) Comments: 2HR GTT GLU 1 HR GLU GTT-1 HOUR from 216:[id number]. Range: 120-170 :40 GLU GTT-30 min. 183 mg/dL (Abnormal) Comments: 2HR GTT GLU 1/2 HR GLU GTT-30 min. from 216:[id number]. Range: 110-170 :01 GLU GTT-FASTING 106 mg/dL (Normal) Comments: 2HR GTT FASTING GLU GTT-FASTING from 216:[id number]. Range: 70-110 Comments: GLUCOSE TOLERANCE TEST Reference [...] was performed using the TPSA method for theGray[employer] chemistry system.Values obtained with different assay methods [...] :12 TSH 1.38 {uIU/mL} (Normal) Range: 0.34-4.82 90-Ljr-50247:03 CHEST WITH CONTRAST Radiology Report See Note (Normal) Comments: Exam Number: [id number] CHEST CT WITH INTRAVENOUS CONTRAST. REASON FOR [...] No growth in 5 6:14 days. (Normal) 6-Jxh-427926:14 CBCD,SMEAR DIFF BAND 1 % (Normal) Range: [...] 47-70 WBC 5.6 K/mm3 (Normal) Range: 4.4-11.0 2-Xzx-980260:14 COMP METABOLIC A/G 1.2 {RATIO} (Normal) Range: [...] T PROT 6.3 g/dL (Abnormal) Range: 6.4-8.2 93-Lox-072900:19 EBVIgG/M 528885 EB-EA IgG 62497 79 AU/mL (Normal) Range: 0-99 Comments: Negative <100 Equivocal 100 - 120 Positive >120 EB-NAg WnC93296 656 AU/mL (Abnormal) Range: 0-99 Comments: Negative <100 Equivocal 100 - 120 Positive >120 EB-VCA [id number] 2296 AU/mL (Abnormal) Range: 0-99 Comments: Negative <100 Equivocal 100 - 120 Positive >120 EB-VCA BrR91742 9 AU/mL (Normal) Range: 0-99 Comments: Negative [...] Antibody Present - Antibody AbsentPerformed At: [facility] [place], [place] [id number] 32-Pqr-672818:00 CULTURE, THROAT See Note (Normal) Comments: Normal throat ashkan isolated. No beta-hemolyticstreptococcus isolated. 06-Vzn-365883:35 Rapid Strep Test, Office (62969) Rapid Strep Test, Office Negative (Normal) :40 [...] SJ:rin 11/09/06 TC:5 REPORT SIGNED: PAMELLA SON 11/10/0607-Nov-200658-Xqk-708205:55 ALDOLASE 2030 2.3 U/L (Normal) Range: 1.2-7.6 Comments: Performed At: [facility] [place], [place] [id number] At: [facility] [id number] 48-Zuf-456170:55 JOHN-D 518378 JOHN-DIRECT 9 U/mL (Normal) Range: 0-99 Comments: [...] 4.9 {IU/mL} (Normal) Range: 0.0-13.9 :55 TESTOST [id number] TESTOSTER %FREE 2.87 % (Normal) Range: 1.50-4.20 [...] Report See Note (Normal) Comments: Exam Number: [id number] TESTICULAR ULTRASOUND HISTORYTesticular swelling. High resolution real [...] Reported By: MAYELIN DE LA FUENTE M.D. 3-Dmk-352140:45 HIP, MIN 2 VIEWS Radiology Report See Note (Normal) Comments: Exam Number: [id number] FIVE VIEW LUMBAR SPINE AP, LATERAL, BOTH [...] Report See Note (Normal) Comments: Exam Number: [id number] FIVE VIEW LUMBAR SPINE AP, LATERAL, BOTH [...] degenerative changes. Reported By: REMIGIO PURCELL M.D. :44 HIP, MIN 2 VIEWS Radiology Report See Note (Normal) Comments: Exam Number: [id number] FIVE VIEW LUMBAR SPINE AP, LATERAL, BOTH [...] degenerative changes. Reported By: REMIGIO PURCELL M.D. 81-Ywb-001541:43 CHEST, PA AND LATERAL Radiology Report See Note (Normal) Comments: Exam Number: [id number] PA AND LATERAL CHEST HISTORYShortness of breath. [...] 15, 2005. Reported By: EDVIN MARIE M.D. 25-Elf-745559:25 ALDOLASE 2030 3.0 U/L (Normal) Range: 1.2-7.6 Comments: Performed At: [address] [id number] 21-Gfh-279254:25 JOHN-D 650006 JOHN-DIRECT 46 U/mL (Normal) Range: 0-99 Comments: Negative <100 Equivocal 100 - 120 Positive >120 :25 C-REACTIVE PROT 1.07 mg/L (Normal) Range: 0.0-6.0 Comments: Test performed using the Dimension C-Reactive ProteinExtended Range assay method. This assay meets the AHA/CDC 2003 recommendations fordetermining patients at high risk for cardiovasculardisease. Reference: High risk CRP >3.0 mg/L 84-Jtq-910393:25 CBCD BASO% 0.4 % (Normal) Range: 0-1 [...] CPK TOTAL 172 U/L (Normal) Range: 35-232 10-Pfh-474453:25 ESR SED RATE 13 mm/h (Normal) Range: [...] morphology Planned Observations CBC W/AUTO DIFF WBC (55852)Indication: Hypertension, benign On: 76-Npx-27801:51 Request METABOLIC PANEL, COMPREHENSIVE (47173)Indication: Hypertension, benign On: 31-Kaj-65944:51 Request LIPID PANEL (60092)Indication: Other hyperlipidemia On: :50 Request CULTURE,FUNGUS W/STAIN 234515 (02369)Indication: Bronchiectasis On: :59 Request CULTURE, SPUTUM (58919)Indication: Moderate persistent asthma without complication On: :21 Request HGB A1C (64295)Indication: Abnormal glucose tolerance test On: :10 Request CBC with auto diff (56084)Indication: Abnormal glucose tolerance test On: :10 Request METABOLIC PANEL, COMPREHENSIVE (84485)Indication: Abnormal glucose tolerance test On: : Request LIPID PANEL (39361)Indication: Other hyperlipidemia On: : Request PSA (PROSTATE SPECIFIC ANTIGEN) (V76.44)Indication: Encounter for screening for malignant neoplasm of prostate (Renamed from Screening for prostate cancer) On: :09 Request METABOLIC PANEL, COMPREHENSIVE (46909)Indication: Essential hypertension On: 5-Waw-454725:58 Request CBC with auto diff (71989)Indication: Hypertension, benign On: :53 Request METABOLIC PANEL, COMPREHENSIVE (47756)Indication: Abnormal glucose tolerance test On: :52 Request MICROALBUMIN: CREATININE RATIO (36934) AND (04120)Indication: Abnormal glucose tolerance test On: :52 Request HGB A1C (42002)Indication: Abnormal glucose tolerance test On: :52 Request LIPID PANEL (79302)Indication: Other hyperlipidemia On: :52 Request LIPID PANEL (88244)Indication: Other hyperlipidemia On: 0-Pyr-145510:30 Request CBC W/AUTO DIFF WBC (43772)Indication: Hypertension, benign On: :29 Request METABOLIC PANEL, COMPREHENSIVE (86318)Indication: Hypertension, benign On: 2-Kaz-254099:29 Request IMMUNOGLOBULIN G (IgG) (90353)Indication: Abnormal blood chemistry On: 20-Yrp-886681:02 Request Comments: PLEASE DRAW WITH OTHER LABS IN 2016 serum free light chains (14778)Indication: Abnormal blood chemistry On: :40 Request serum immunofixation (56313)Indication: Abnormal blood chemistry On: Request PSA (PROSTATE SPECIFIC ANTIGEN) (V76.44)Indication: Encounter for screening for malignant neoplasm of prostate (Renamed from Screening for prostate cancer) On: 40 Request LIPID PANEL (77393)Indication: Other hyperlipidemia On: Request CBC with auto diff (01653)Indication: Abnormal glucose tolerance test On: 39 Request METABOLIC PANEL, COMPREHENSIVE (09340)Indication: Abnormal glucose tolerance test On: Request MICROALBUMIN: CREATININE RATIO (91884) AND (20834)Indication: Abnormal glucose tolerance test On: 39 Request HGB A1C (81307)Indication: Abnormal glucose tolerance test On: Request LIPID PANEL (49689)Indication: Other hyperlipidemia On: :58 Request urine immunofixation (05879)Indication: Abnormal blood chemistry On: :34 Request serum immunofixation (60372)Indication: Abnormal blood chemistry On: :34 Request MICROALBUMIN: CREATININE RATIO (97006) AND (83866)Indication: Abnormal glucose tolerance test On: :32 Request HGB A1C (49284)Indication: Abnormal glucose tolerance test On: :32 Request CBC W/AUTO DIFF WBC (44608)Indication: Hypertension, benign On: :30 Request METABOLIC PANEL, COMPREHENSIVE (59176)Indication: Hypertension, benign On: :30 Request LIPID PANEL (11847)Indication: Other hyperlipidemia On: :30 Request LIPOPROTEIN, BLD, BY NMR (88743)Indication: Other hyperlipidemia On: :14 Request CBC WITH MANUAL DIFF (80627)Indication: Essential hypertension On: 72-Zjr-169474:14 Request Metabolic Panel, Comprehensive (88304)Indication: Essential hypertension On: 94-Fot-179533:14 Request CBC W/AUTO DIFF WBC (39288)Indication: Abnormal glucose tolerance test On: Request LIPOPROTEIN, BLD, BY NMR (15148)Indication: Other hyperlipidemia On: Request METABOLIC PANEL, COMPREHENSIVE (98530)Indication: Abnormal glucose tolerance test On: : Request Anti-TPO Antibody (71494)Indication: Abnormal blood chemistry On: Request T4, FREE (THYROXINE) (93495)Indication: Abnormal blood chemistry On: Request T3, FREE (TRIDOTHYRONINE) (24231)Indication: Abnormal blood chemistry On: Request TSH (96708)Indication: Abnormal blood chemistry On: Request P-ANCA & C-ANCA (ANCA PROFILE) 54643 x2 and 12629 [id number]: Acute recurrent maxillary sinusitis On: Request JOHN (ANTINUCLEAR ANTIBODY) (84010)Indication: Abnormal blood chemistry On: Request RHEUMATOID FACTOR-QUANT (58631)Indication: Abnormal blood chemistry On: Request SED RATE ERYTHROCYTE (11160)Indication: Abnormal blood chemistry On: Request C-REACTIVE PROTEIN (95769)Indication: Abnormal blood chemistry On: Request CBC with auto diff (92754)Indication: Hypertension, benign On: : Request MICROALBUMIN: CREATININE RATIO (19403) AND (29349)Indication: Abnormal glucose tolerance test On: Request METABOLIC PANEL, COMPREHENSIVE (89538)Indication: Abnormal glucose tolerance test On: : Request HGB A1C (15903)Indication: Abnormal glucose tolerance test On: Request METABOLIC PANEL, COMPREHENSIVE (56803)Indication: Hypertension, benign On: Request LIPID PANEL (38989)Indication: Other hyperlipidemia On: Request PSA (PROSTATE SPECIFIC ANTIGEN) (V76.44)Indication: Encounter for screening for malignant neoplasm of prostate (Renamed from Screening for prostate cancer) On: 84-Plp-512535:59 Request Factor 2 (Prothrombin) Gene Mutation (21716)Indication: Other symptoms involving cardiovascular system On: 3-Zuw-524680:13 Request MICROALBUMIN: CREATININE RATIO (32109) AND (78802)Indication: Abnormal glucose tolerance test On: :53 Request HGB A1C (70512)Indication: Abnormal glucose tolerance test On: :53 Request LIPID PANEL (19217)Indication: Other hyperlipidemia On: :53 Request CBC W/AUTO DIFF WBC (18242)Indication: Hypertension, benign On: :53 Request METABOLIC PANEL, COMPREHENSIVE (85272)Indication: Hypertension, benign On: :53 Request CBC with auto diff (92714)Indication: Hypertension, benign On: 4-Hnu-844581:25 Request METABOLIC PANEL, COMPREHENSIVE (98042)Indication: Hypertension, benign On: :25 Request LIPID PANEL (80834)Indication: Other hyperlipidemia On: 2-Qqw-699390:25 Request Factor V Leiden (68785)Indication: Deep vein thrombosis of lower extremity On: 92-Zij-576456:24 Request CLOTTING FACTOR II (94186)Indication: Deep vein thrombosis of lower extremity On: 37-Iau-831802:24 Request ANTITHROMBIN III ACTIVTY (89930)Indication: Deep vein thrombosis of lower extremity On: 28-Yjq-790284:24 Request Antiphospholipid atb (55569)Indication: Deep vein thrombosis of lower extremity On: 13-Wod-121515:24 Request Protein C Profile (23649)Indication: Deep vein thrombosis of lower extremity On: 24-Dqo-672898:24 Request Protein S Profile (31317)Indication: Deep vein thrombosis of lower extremity On: 10-Jmk-994262:24 Request Hemoglobin Glyclated (HGB A1C) (47621)Indication: Abnormal glucose tolerance test On: 28-May-397927:23 Request CBC W/AUTO DIFF WBC (08360)Indication: Abnormal glucose tolerance test On: :43 Request MICROALBUMIN: CREATININE RATIO (87372) AND (30687)Indication: Abnormal glucose tolerance test On: :43 Request METABOLIC PANEL, COMPREHENSIVE (62495)Indication: Abnormal glucose tolerance test On: :43 Request LIPID PANEL (32768)Indication: Other hyperlipidemia On: :43 Request DNA ANTIBODY-NATV/DBL ST (15435)Indication: Heart disease, unspecified On: 37-Jeg-917823:02 Request METABOLIC PANEL, COMPREHENSIVE (29923)Indication: Essential hypertension On: 62-Fiq-130832:31 Request LIPID PANEL (37791)Indication: Other hyperlipidemia On: 00-Riv-996438:31 Request Hemoglobin Glyclated (HGB A1C) (31923)Indication: Abnormal glucose tolerance test On: 55-Bvm-758699:31 Request PSA (PROSTATE SPECIFIC ANTIGEN) (V76.44)Indication: Benign prostatic hyperplasia with lower urinary tract symptoms, unspecified morphology On: 95-Jpv-393314:52 Request MICROALBUMIN: CREATININE RATIO (09113) AND (61911)Indication: Abnormal glucose tolerance test On: :50 Request Hemoglobin Glyclated (HGB A1C) (53188)Indication: Abnormal glucose tolerance test On: 54-Ezz-951204:50 Request URINE WARREN CULTURE (MASSIEL COL COUNT) (79144)Indication: Muscle weakness On: :48 Request URINALYSIS, W/ MICRO (38212)Indication: Muscle weakness On: :48 Request CBC with auto diff (11077)Indication: Muscle weakness On: :48 Request JOHN (ANTINUCLEAR ANTIBODY) (04674)Indication: Muscle weakness On: :48 Request SED RATE ERYTHROCYTE (56706)Indication: Muscle weakness On: :48 Request C-REACTIVE PROTEIN (10160)Indication: Muscle weakness On: :48 Request TSH (80105)Indication: Muscle weakness On: :48 Request LIPID PANEL (49518)Indication: Other hyperlipidemia On: 69-Ovy-515161:47 Request METABOLIC PANEL, COMPREHENSIVE (47789)Indication: Other hyperlipidemia On: 32-Lhn-007508:46 Request URINE WARREN CULTURE-MASSIEL COL COUNT (67764)Indication: Other abnormal finding of urine On: :42 Request LIPID PANEL (26426)Indication: Other hyperlipidemia On: :44 Request CBC W/AUTO DIFF WBC (41465)Indication: Essential hypertension On: :44 Request METABOLIC PANEL, COMPREHENSIVE (02360)Indication: Essential hypertension On: :44 Request URINE WARREN CULTURE-MASSIEL COL COUNT (38357)Indication: Other abnormal finding of urine On: 0-Wux-877407:00 Request Comments: ADD ON MICROALBUMIN: CREATININE RATIO (67495) AND (43449)Indication: Essential hypertension On: : Request URINALYSIS, W/ MICRO (05037)Indication: Essential hypertension On: : Request METABOLIC PANEL, COMPREHENSIVE (92683)Indication: Essential hypertension On: :02 Request LIPID PANEL (12822)Indication: Other hyperlipidemia On: : Request CBC WITH MANUAL DIFF (14610)Indication: Iron deficiency On: : Request URINE WARREN CULTURE (MASSIEL COL COUNT) (71262)Indication: Fatigue On: 35-Hdo-895782:46 Request MICROALBUMIN: CREATININE RATIO (03196) AND (98374)Indication: Abnormal glucose tolerance test On: 22-Mlg-498416:46 Request Hemoglobin Glyclated (HGB A1C) (64819)Indication: Abnormal glucose tolerance test On: 76-Mtc-857640:46 Request IRON BINDING CAPACITY (TIBC) (50733)Indication: Anemia, unspecified On: 46-Vue-623521:42 Request FERRITIN (58146)Indication: Anemia, unspecified On: 56-Pay-176709:42 Request IRON (94377)Indication: Anemia, unspecified On: 52-Njm-472399:42 Request VITAMIN B-12 (CYANOCOBALAMIN) (16809)Indication: Fatigue On: :42 Request CBC (AUTO) (61221)Indication: Fatigue On: :42 Request TSH (87855)Indication: Fatigue On: :42 Request Vitamin D Hydroxy (35367)Indication: Fatigue On: :42 Request EBV Panel (74493)Indication: Fatigue On: 85-Kjv-656014:42 Request FERRITIN (01079)Indication: Anemia, unspecified On: : Request IRON (66073)Indication: Anemia, unspecified On: : Request MICROALBUMIN: CREATININE RATIO (53958) AND (10977)Indication: Abnormal glucose tolerance test On: : Request METABOLIC PANEL, COMPREHENSIVE (08241)Indication: Abnormal glucose tolerance test On: : Request LIPID PANEL (94033)Indication: Other hyperlipidemia On: : Request CBC WITH MANUAL DIFF (51387)Indication: Anemia, unspecified On: : Request FERRITIN (45742)Indication: Anemia, unspecified On: 3-Csl-768095:15 Request IRON (59097)Indication: Anemia, unspecified On: :14 Request LIPID PANEL (16878)Indication: Essential hypertension On: : Request METABOLIC PANEL, COMPREHENSIVE (36964)Indication: Essential hypertension On: :14 Request CBC WITH MANUAL DIFF (54734)Indication: Essential hypertension On: :14 Request UPEP (93360)Indication: BRONCHITIS, NOT SPECIFIED ACUTE OR CHRONIC (490.) On: Request Protein Electrophoresis, Serum (SPEP) (56129)Indication: BRONCHITIS, NOT SPECIFIED ACUTE OR CHRONIC (490.) On: Request IGA/IGD/IGG/IGM-EACH (94582)Indication: BRONCHITIS, NOT SPECIFIED ACUTE OR CHRONIC (490.) On: Request URINALYSIS, W/ MICRO (87168)Indication: Anemia, unspecified On: : Request CBC WITH MANUAL DIFF (85057)Indication: Anemia, unspecified On: Request FOLIC ACID SERUM (04502)Indication: Anemia, unspecified On: : Request VITAMIN B-12 (CYANOCOBALAMIN) (99664)Indication: Anemia, unspecified On: Request RETICULOCYTE COUNT MANUL (34908)Indication: Anemia, unspecified On: Request LDH (LD) (LACTATE DEHYDROGENASE) (37609)Indication: Anemia, unspecified On: Request IRON BINDING CAPACITY (TIBC) (15540)Indication: Anemia, unspecified On: : Request IRON (23084)Indication: Anemia, unspecified On: Request FERRITIN (38049)Indication: Anemia, unspecified On: Request PSA (PROSTATE SPECIFIC ANTIGEN) (V76.44)Indication: Screening for prostate cancer On: :36 Request LIPID PANEL (88293)Indication: Abnormal glucose tolerance test On: Request CBC WITH MANUAL DIFF (15942)Indication: Hypertension, benign On: Request METABOLIC PANEL, COMPREHENSIVE (55076)Indication: Hypertension, benign On: Request SED RATE ERYTHROCYTE (93998)Indication: Rash On: : Request C-REACTIVE PROTEIN (95102)Indication: Rash On: : Request RHEUMATOID FACTOR-QUANT (31847)Indication: Rash On: Request JOHN (ANTINUCLEAR ANTIBODY) (86638)Indication: Rash On: :22 Request CULTURE, SPUTUM (42043)Indication: Cough On: 98-Lqv-744999:20 Request HgA1C , Office (78378)Indication: Abnormal glucose tolerance test On: 59-Mpy-066572:57 Request CULTURE, SPUTUM (23247)Indication: Cough On: 64-Jwd-607012:39 Request ACID FAST STAIN (AFB) (60532)Indication: Cough On: 81-Vol-060449:38 Request TSH (86256)Indication: Other hyperlipidemia On: :21 Request URINALYSIS, W/ MICRO (39352)Indication: Essential hypertension On: :21 Request CBC WITH MANUAL DIFF (99264)Indication: Abnormal glucose tolerance test On: : Request METABOLIC PANEL, COMPREHENSIVE (59916)Indication: Abnormal glucose tolerance test On: :21 Request MICROALBUMIN: CREATININE RATIO (77071) AND (11452)Indication: Abnormal glucose tolerance test On: :21 Request LIPID PANEL (68513)Indication: Other hyperlipidemia On: :20 Request CBC WITH MANUAL DIFF (30142)Indication: Abnormal glucose tolerance test On: 23-Rgl-553282:26 Request METABOLIC PANEL, COMPREHENSIVE (76350)Indication: Abnormal glucose tolerance test On: 44-Egc-642478:26 Request CULTURE, SPUTUM (69100)Indication: Cough On: 12-Qta-598835:18 Request LIPID PANEL (31891)Indication: Other hyperlipidemia On: 80-Mxf-947161:14 Request TSH (51257)Indication: Swelling of limb On: :58 Request METABOLIC PANEL, COMPREHENSIVE (70094)Indication: Swelling of limb On: 69-Ssv-09969:58 Request CBC WITH MANUAL DIFF (38915)Indication: Swelling of limb On: :58 Request BNTP ([id number])Indication: Swelling of limb On: :58 Request CULTURE, SPUTUM ([id number])Indication: Cough On: 52-Ujf-21276:56 Request PSA (PROSTATE SPECIFIC ANTIGEN) (V76.44)Indication: Screening for prostate cancer On: 87-Ygn-687702:19 Request URINALYSIS, W/ MICRO ([id number])Indication: Abnormal glucose tolerance test On: 82-Gtz-101559:18 Request MICROALBUMIN: CREATININE RATIO ([id number]) AND ([id number])Indication: Abnormal glucose tolerance test On: 10-Wbq-304787:18 Request METABOLIC PANEL, COMPREHENSIVE ([id number])Indication: Essential hypertension On: 87-Rsp-667291:18 Request LIPID PANEL ([id number])Indication: Other hyperlipidemia On: 28-Cbz-833658:18 Request PSA (PROSTATE SPECIFIC ANTIGEN) (V76.44)Indication: Screening for prostate cancer On: :40 Request MICROALBUMIN: CREATININE RATIO ([id number]) AND ([id number])Indication: Abnormal glucose tolerance test On: :40 Request METABOLIC PANEL, COMPREHENSIVE ([id number])Indication: Abnormal glucose tolerance test On: :40 Request Urine Protein Electrophoresis (UPEP) ([id number])Indication: recurrent uri On: :39 Request Serum Protein Electrophoresis (SPEP) ([id number])Indication: recurrent uri On: 27-Cub-117792:39 Request IMMUNOGLOBULIN E (IgE) ([id number])Indication: Asthma, intrinsic, with status asthmaticus On: 16-Nmr-498443:39 Request IGA/IGD/IGG/IGM-EACH ([id number])Indication: Asthma, intrinsic, with status asthmaticus On: 14-Egz-196129:39 Request LIPID PANEL ([id number])Indication: Other hyperlipidemia On: 24-Qkk-753845:38 Request ASPERGILLUS AG, EIA ([id number])Indication: Cough On: :58 Request SED RATE ERYTHROCYTE ([id number])Indication: Cough On: :48 Request C-REACTIVE PROTEIN ([id number])Indication: Cough On: :48 Request CBC WITH MANUAL DIFF ([id number])Indication: Cough On: :47 Request Quantiferron gold test ([id number])Indication: Cough On: :45 Request CULTURE, SPUTUM ([id number])Indication: Cough On: 71-Hxg-096823:45 Request VITAMIN B-12 (CYANOCOBALAMIN) ([id number])Indication: Fatigue On: :20 Request Vitamin D Hydroxy ([id number])Indication: Fatigue On: 53-Mur-931608:20 Request CBC WITH MANUAL DIFF ([id number])Indication: Abnormal glucose tolerance test On: :19 Request METABOLIC PANEL, COMPREHENSIVE ([id number])Indication: Abnormal glucose tolerance test On: :19 Request LIPID PANEL ([id number])Indication: Other hyperlipidemia On: :19 Request URINALYSIS, W/ MICRO ([id number])Indication: Abnormal glucose tolerance test On: :19 Request HEMOGLOBIN GLYCLATED (HGB A1C) ([id number])Indication: Abnormal glucose tolerance test On: :19 Request WARREN CULTURE-OTHER ([id number])Indication: Pharyngitis, acute On: 05-Skk-509367:05 Request URINE WARREN CULTURE-MASSIEL COL COUNT ([id number])Indication: Abdominal pain, acute, right lower quadrant On: :19 Request CBC WITH MANUAL DIFF ([id number])Indication: Abnormal glucose tolerance test On: :08 Request METABOLIC PANEL, COMPREHENSIVE ([id number])Indication: Abnormal glucose tolerance test On: :08 Request TSH ([id number])Indication: Fatigue On: :02 Request CBC WITH MANUAL DIFF ([id number])Indication: Abnormal glucose tolerance test On: :45 Request METABOLIC PANEL, COMPREHENSIVE ([id number])Indication: Hypertension, benign On: :45 Request LIPID PANEL ([id number])Indication: Other hyperlipidemia On: :45 Request METABOLIC PANEL, COMPREHENSIVE ([id number])Indication: Essential hypertension On: :16 Request LIPID PANEL ([id number])Indication: Other hyperlipidemia On: :15 Request URINE WARREN CULTURE-MASSIEL COL COUNT ([id number])Indication: Calcium kidney stone On: :54 Request PSA (PROSTATE SPECIFIC ANTIGEN) (V76.44)Indication: Enlarged prostate with lower urinary tract symptoms On: :09 Request METABOLIC PANEL, COMPREHENSIVE ([id number])Indication: Abnormal glucose tolerance test On: :09 Request CBC WITH MANUAL DIFF ([id number])Indication: Abnormal glucose tolerance test On: :09 Request LIPID PANEL ([id number])Indication: Other hyperlipidemia On: 30-Eol-269278:09 Request MICROALBUMIN: CREATININE RATIO ([id number]) AND ([id number])Indication: Abnormal glucose tolerance test On: :09 Request LIPID PANEL ([id number])Indication: Other hyperlipidemia On: : Request CBC WITH MANUAL DIFF ([id number])Indication: Abnormal glucose tolerance test On: : Request METABOLIC PANEL, COMPREHENSIVE ([id number])Indication: Abnormal glucose tolerance test On: :30 Request MICROALBUMIN: CREATININE RATIO ([id number]) AND ([id number])Indication: Abnormal glucose tolerance test On: :28 Request METABOLIC PANEL, COMPREHENSIVE ([id number])Indication: Abnormal glucose tolerance test On: : Request LIPID PANEL ([id number])Indication: Other hyperlipidemia On: 6-Ivy-903986:07 Request PSA (PROSTATE SPECIFIC ANTIGEN) (V76.44)Indication: Enlarged prostate with lower urinary tract symptoms On: 8-Gol-481834:49 Request METABOLIC PANEL, COMPREHENSIVE ([id number])Indication: Essential hypertension On: 3-Qfw-567706:48 Request LIPID PANEL ([id number])Indication: Other hyperlipidemia On: :48 Request HEPATIC FUNCTION PANEL ([id number])Indication: Other hyperlipidemia On: :21 Request LIPID PANEL ([id number])Indication: Other hyperlipidemia On: 49-Prw-505044:21 Request CBC WITH MANUAL DIFF ([id number])Indication: Abnormal glucose tolerance test On: :53 Request METABOLIC PANEL, COMPREHENSIVE ([id number])Indication: Abnormal glucose tolerance test On: :53 Request MICROALBUMIN: CREATININE RATIO ([id number]) AND ([id number])Indication: Abnormal glucose tolerance test On: :53 Request HEPATIC FUNCTION PANEL ([id number])Indication: Other hyperlipidemia On: :53 Request LIPID PANEL ([id number])Indication: Other hyperlipidemia On: 1-Gsa-886152:53 Request GLUCOSE TOLERANCE TEST (GTT) 2 hour On: 8-Iba-089738:36 Request ([id number]) TSH ([id number])Indication: Dizziness and giddiness On: 59-Zne-022116:15 Request LIPID PANEL ([id number])Indication: Other hyperlipidemia On: 62-Iwe-095705:15 Request CBC WITH MANUAL DIFF ([id number])Indication: Dizziness and giddiness On: 51-Dzr-277203:15 Request METABOLIC PANEL, COMPREHENSIVE ([id number])Indication: Dizziness and giddiness On: 55-Mhr-181579:15 Request HEPATIC FUNCTION PANEL ([id number])Indication: Other hyperlipidemia On: 50-Nei-066004:39 Request LIPID PANEL ([id number])Indication: Other hyperlipidemia On: 25-Flo-525554:39 Request HEPATIC FUNCTION PANEL ([id number])Indication: Other hyperlipidemia On: 38-Fst-712127:31 Request LIPID PANEL ([id number])Indication: Other hyperlipidemia On: 04-Dcu-949252:31 Request WARREN CULTURE-BLOOD ([id number])Indication: fever On: 8-Fqy-992143:58 Request METABOLIC PANEL, COMPREHENSIVE ([id number])Indication: fever On: 6-Ynv-998009:58 Request CBC WITH MANUAL DIFF ([id number])Indication: fever On: :58 Request WARREN CULTURE-OTHER ([id number])Indication: Pharyngitis, acute On: :35 Request PSA (Prostate Specific Antigen), Screening (51028)Indication: Other hyperlipidemia On: :32 Request LIPID PANEL ([id number])Indication: Other hyperlipidemia On: :31 Request URINALYSIS W/O MICRO ([id number])Indication: Hypertension, benign On: :31 Request TSH ([id number])Indication: Hypertension, benign On: :31 Request CBC WITH MANUAL DIFF ([id number])Indication: Hypertension, benign On: :31 Request METABOLIC PANEL, COMPREHENSIVE ([id number])Indication: Hypertension, benign On: :31 Request Creatine Kinase Total ([id number])Indication: Myalgia and myositis On: :24 Request SED RATE ERYTHROCYTE ([id number])Indication: Arthralgia On: :23 Request C-REACTIVE PROTEIN ([id number])Indication: Arthralgia On: :23 Request RHEUMATOID FACTOR-QUANT ([id number])Indication: Arthralgia On: :23 Request JOHN (ANTINUCLEAR ANTIBODY) ([id number])Indication: Arthralgia On: :23 Request Planned Encounters Medical; [facility] 3 Month FU - On: 21-Mar-2018 8:30 [facility] Fast DO, Adelaida A Fast DO, Adelaida A Planned Procedures PNEUM VAC ADLT/IMUMNOSPR, On: 06-Dec-2017 Intent SBC/INTRM ([id number])By: Fast DO, Comments: lot: [id number]: ite/route: Татьяна del/IMamt: 0.5mLVIS signed when applicableEVER Monroy Adelaida A Fast DO, Adelaida A Cartoid DopplerBy: Fast DO Adelaida On: 06-Sep-2017 Intent A Fast DO, Adelaida A Radiology - Lumbar SpineBy: Fast On: 06-Jun-2017 Intent DO, Adelaida A Fast DO, Adelaida A ELECTROCARDIOGRAM, COMPLETE (ECG) On: 06-Jun-2017 Intent ([id number])By: Fast DO Adelaida A Flakito Comments: ekg showed normal [...] XRAY, PA & LATERAL On: 18-Jan-2017 Intent ([id number])By: Yola Witt Aerosol Treatment ([id number])By: On: 18-Jan-2017 Intent Yola Witt Solu -Medrol Injection, 125 mg On: 18-Jan-2017 Intent ([id number])By: Yola Witt Comments: solumedrol 125mg injectionlot: [id number]: GMpt tolerated wellAD AUDIOMETRIST ELECTROCARDIOGRAM, COMPLETE (ECG) On: 05-Jan-2016 Intent ([id number])By: Adelaida Fraga DO A Flakito Comments: ekg showed normal sinus rhythym, normal axis, no acute st/t wave changes irbb DO, Adelaida A Solu -Medrol Injection, 125 mg On: 09-May-2015 Intent ([id number])By: Samantha Grewal CNP Comments: lot: [id number]: ite/route:RGM/IMamt: 2mLVIS signed when applicableEVER Dumont Aerosol Treatment ([id number])By: On: 09-May-2015 Intent Slarb AUDIOMETRIST, Tracey Radiology - Chest- PA and LatBy: [...] A Fast DO, Adelaida A Pulse Oximetry ([id number])By: Flakito On: 26-Aug-2014 Intent DO, Adelaida A Fast DO, Adelaida A Comments: 94%- recheck 95 Aerosol Treatment ([id number])By: On: 10-Apr-2014 Intent Tracey Young LPN Eprescribed prescriptions On: 25-Jul-2013 Intent (G8553)By: Fast DO, Adelaida A Fast DO, Adelaida A Pulse Oximetry ([id number])By: Flakito On: 02-Jul-2013 Intent DO, Adelaida A Fast DO, Adelaida A Comments: 97% Aerosol Treatment ([id number])By: On: 25-Jun-2013 Intent Samantha Grewal CNP Eprescribed prescriptions On: 25-Jun-2013 Intent (G8553)By: Samantha Grewal CNP Eprescribed prescriptions On: 02-Apr-2013 Intent (G8553)By: Leigh Ann Polk Aerosol Treatment ([id number])By: On: 26-Mar-2013 Intent Samantha Grewal CNP Eprescribed prescriptions On: 26-Mar-2013 Intent (G8553)By: Eliana Carter Eprescribed prescriptions On: 25-Dec-2012 Intent (G8553)By: Leigh Ann Polk Aerosol Treatment ([id number])By: On: 06-Nov-2012 Intent Samantha Grewal CNP Eprescribed prescriptions On: 06-Nov-2012 Intent (G8553)By: Eliana Carter Ear Irrigation ([id number])By: Carmina On: 25-Sep-2012 Intent Samantha IRVIN Comments: Ear Irrigation performed on:bilateralAmount/color removed cerumen:large amount of dark brown wax removedOUtcome:clear, pt toleratedUsed wax curettes Wax CurettesBy: Samantha Grewal CNP On: 25-Sep-2012 Intent Eprescribed prescriptions On: 22-Sep-2012 Intent (G8553)By: Elizabet Green DO Eprescribed prescriptions On: 02-Aug-2012 Intent (G8553)By: Leigh Ann Polk Pulse Oximetry ([id number])By: Flakito On: 30-Jun-2012 Intent DO, Adelaida A Fast DO, Adelaida A Comments: 97% Eprescribed prescriptions On: 12-Jun-2012 Intent (G8553)By: Fast DO, Adelaida A Fast DO, Adelaida A Spirometry ([id number])By: Felicitas, On: 17-Jan-2012 Intent Leigh Ann Comments: good effort and curve mild restriction CT - Sinuses CompleteBy: Fast DO, On: 17-Jan-2012 Intent Adelaida A Fast DO, Adelaida A PNEUM VAC ADLT/IMUMNOSPR, On: 17-Jan-2012 Intent SBC/INTRM ([id number])By: Boris, Comments: Lot:[id number]:04-25-12Dose:0.5mLRoute:IMSite:L [facility] By:CHELA signed Julia IMMUNIZ ADMNIN, 1 VAC, SNGL/COMBO On: 17-Jan-2012 Intent ([id number])By: Julia Escalante CT - ChestBy: Fast DO, Adelaida A On: 17-Jan-2012 Intent Fast DO, Adelaida A Eprescribed prescriptions On: 17-Jan-2012 Intent (G8553)By: Leigh Ann Polk Eprescribed prescriptions On: 18-Oct-2011 Intent (G8553)By: Fast DO, Adelaida A Fast DO, Adelaida A EKG ([id number])By: Fast DO, Adelaida A On: 15-Oct-2011 Intent Fast DO, Adelaida A Comments: ekg- sinus with normal axis and nsivcd and no acute changes Eprescribed prescriptions On: 09-Aug-2011 Intent (G8553)By: Fast DO, Adelaida A Fast DO, Adelaida A PFT - CompleteBy: Fast DO, Adelaida On: 08-Mar-2011 Intent A Fast DO, Adelaida A Pulse Oximetry ([id number])By: Carmina On: 02-Feb-2011 Intent Samantha IRVIN Aerosol Treatment ([id number])By: On: 02-Feb-2011 Intent Samantha Grewal CNP Radiology - Chest- PA and LatBy: On: 18-Jan-2011 Intent Fast DO, Adelaida A Fast DO, Adelaida A Pulse Oximetry ([id number])By: On: 18-Jan-2011 Intent Leigh Ann Polk Comments: 93% TDAP VACCINE >7 IM ([id number])By: On: 07-Dec-2010 Intent Leigh Ann Polk Comments: Lot #:[id number] date:mount given:0.5mlRoute: IMSite given:left deltGiven by: DANIEL Zavaleta Eprescribed prescriptions On: 07-Dec-2010 Intent (G8553)By: Fast DO, Adelaida A Fast DO, Adelaida A FLU VAC, SPLIT, >3 YEARS, On: 07-Dec-2010 Intent INTRAMUSC ([id number])By: Felicitas, Comments: received at work Leigh Ann Toradol Injection, 30 mg On: 05-Nov-2010 Intent ([id number])By: Elizabet Green DO Comments: Lot:[id number]:apr 05Amt:30mg/mlRoute:IMSite:left hip Given By: ILDA Tran Ear Irrigation ([id number])By: Peter On: 05-Nov-2010 Intent Elizabet ACKERMAN Comments: Left ear irrigated, large amt of wax removed. pt tolerated well. Eprescribed prescriptions On: 05-Nov-2010 Intent (G8553)By: Elizabet Green DO Wax CurettesBy: Peter ACKERMAN, On: 05-Nov-2010 Intent Elizabet SPECIMEN HNDLNG/TRNSPRT, OFFC > On: 05-Nov-2010 Intent LAB ([id number])By: Elizabet Green DO Nuclear Medicine - HIDA [...] call wet read DO, Adelaida A Spirometry ([id number])By: Fast DO, On: 14-Sep-2010 Intent Adelaida A Fast DO, Adelaida A Comments: good effort and curve- mild restriction Eprescribed prescriptions On: 14-Sep-2010 Intent (G8553)By: Flakito DO, Adelaida A Fast DO, Adelaida A Pulse Oximetry ([id number])By: Flakito On: 14-Sep-2010 Intent DO, Adelaida A Fast DO, Adelaida A Comments: 94-95 Radiology - Chest- PA and LatBy: On: 14-Sep-2010 Intent Fast DO, Adelaida A Fast DO, Adelaida A Pulse Oximetry ([id number])By: Carmina On: 23-Feb-2010 Intent GED TEACHER, Anamaria Aerosol Treatment ([id number])By: On: 23-Feb-2010 Intent Ciescalin IRVIN, Anamaria Pulse Oximetry ([id number])By: Ciesa On: 26-Jan-2010 Intent GED TEACHER, Anamaria Aerosol Treatment ([id number])By: On: 26-Jan-2010 Intent Carmina GED TEACHER, Anamaria Spirometry ([id number])By: Felicitas, On: 29-Apr-2008 Intent Leigh Ann Comments: good effort and curve normal EKG ([id number])By: Flakito DO, Adelaida A On: 20-Apr-2007 Intent Fast [...] ACKERMAN Adelaida A Flakito Comments: Lot #: [id number] date: 10/30Amount given: 2 gramsRoute: IMSite given: Right hip and left hipGiven by: Calin Townsend LPN DO Adelaida A Spirometry (22346)By: Flakito ACKERMAN, On: 27-Mar-2007 Intent Adelaida A Fast DO, Adelaida A Comments: good effort and curve normal EBV SEROLOGIC TESTBy: Mary Ann Salcido On: 17-Feb-2007 Intent RUDY-GUZMAN VCA ANTIBODY On: 16-Feb-2007 Intent MEASUREMENTBy: Mast RN, Negrita SPECIMEN HNDLNG/TRNSPRT, OFFC > On: 06-Feb-2007 Intent LAB ([id number])By: Fast DO, Adelaida A Fast DO, Adelaida A Ultrasound - TesticularBy: Fast On: 13-Oct-2006 Intent DO, Adelaida A Fast DO, Adelaida A Inhaler Demo ([id number])By: Fast DO, On: 26-Sep-2006 Intent Adelaida A Fast DO, Adelaida A Radiology - Hip - LeftBy: Fast On: 26-Sep-2006 Intent DO, Adelaida A Fast DO, Adelaida A Radiology - Hip - RightBy: Fast On: 26-Sep-2006 Intent DO, Adelaida A Fast DO, Adelaida A Bio Z ([id number])By: Fast DO, Adelaida A On: 25-Jul-2006 Intent Fast DO, Adelaida A Comments: normal paremters Six Minute Walk Assessment On: 25-Jul-2006 Intent ([id number])By: Fast DO, Adelaida A Fast DO, Adelaida A Radiology - Chest- PA and LatBy: On: 25-Jul-2006 Intent Fast DO, Adelaida A Fast DO, Adelaida A Spirometry ([id number])By: Fast DO, On: 25-Jul-2006 Intent Adelaida A Fast DO, Adelaida A Comments: good effort and curve- normal EDISON (Ankle Brachial Index) On: 20-Jul-2006 Intent ([id number])By: Leigh Ann Polk Comments: done EDISON (Ankle Brachial Index) On: 17-May-2006 Intent ([id number])By: Fast DO, Adelaida A Fast DO, Adelaida A Cartoid DopplerBy: Fast DO, Adelaida On: 17-May-2006 Intent A Fast DO, Adelaida A Planned Medications INJECTION, KETOROLAC TROMETHAMINE, PER 15 MG Ordered: 05-Nov-2010 Pending Elizabet Grene DO INJECTION, METHYLPREDNISOLONE SODIUM SUCCINATE, UP TO [...] Indication: Neoplasm of uncertain behavior of skin [facility] Wellness Physical : Patient Instructions Indication: [facility] Well[facility] Physical [facility] Well[facility] Physical : How to access health information online Indication: [facility] Wellness Physical [facility] Wellness Physical : How to access health information online - Detail Indication: [facility] Wellness Physical Other hyperlipidemia : How to [...] Directives Name Dates Details Immunization Registry [place] - Effective on Effective: 31-Jan-201701/31/2017. 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 Encounter Diagnosis: MDMARG[facility] Wellness Physical, Non-smoker, BMI 37.0-37.9, adult, Abnormal [...] congestion and ears hurt- [facility] Diagnosis: Cough (786.2), SHORTNESS OF BREATH [...] Follow up ER: Pt went to [facility] and then went to [facility] in [place] to have the doppler done.- got back [...] [facility] and will [facility] last dose tonight.- and [...] has imp roved some since [facility]. Has f/u with him [...] 2 days with bad UTI.- was at [facility] and getting cystoscopy done and was found to be retaining urine- - by the next night he was sick with no appetitie and just felt bad went to bed - woke up next day- and felt bad- and went to [facility]- and had uti- was there 2 [...] up hospital : Pt was transfered to [facility] for heart cath and discharged sat 06/30/13.- he had heart cath again at [facility] and one vessel which shows 20percent [...] chronic medical issues: had colonsocopy- by ara thomas- and repeat 5 years- chad ferris- said enlarged prostate but not enough to [...] kidney then goes down- jalen barton regular- seeingyoshi next tuesday- to try colonsocopy- [...] saw a Dr Barker a psychiatrist in [place]- he thought mostly anxiety so left him on celexa and added remeron- didnt think he has ad d- - weight went up- alot of stress with his wifes illness- his bp is good- other than the stress he is doing pretty well- he didnt get labs so encourage him to do so- no gerd- allergies better with xy tracy- saw urologist did a scope and helpeds [...] gerd- so he is going back [facility]- mood good with celexa-less tense, [ADDITIONAL [...] has bipolar in family-- he saw Ara egd- was neg- but still maggie t of [...] crestor without problem- does have appt with raa for bowelsEncounter Diagnosis: Backache, unspecified (724.5), Dysthymic [...] and supplemental vitamins. The medical issues the pa petey is following up for include All identified [...] chronic medical issues: recent exposrue to strept [facility] gaona Jeremy for his back -- though DDD and [...]
--- OUTSIDE RECORDS SUMMARY | 2018-05-15 00:58 | XMS RPT_ITS | Continuity of Care Document ---
:1950 Author Organization [facility] Address [address] [facility] [address] [place] [address] Phone Care Team Providers Name Role Phone Adelaida Fraga DO Unavailable Remigio Lares MD Unavailable Tawanda Alonso Unavailable [facility] Unavailable Eliana Carter Unavailable [...] colonsoocpy 09/05- polyps - repeat 5 years [facility] Status: Active Coronary artery disease (I25.10, [...] Solution daily for 90 days Quantity: 3 {Tolley} Refills: 5 Ordered:31-Oct-2017 Fast DO, Adelaida AFast [...] days Quantity: 90 {Capsule} Refills: 3 Ordered:28-Nov-2017 DO, Adelaida AFast DO, Adelaida A Start : 28-Nov-2017 Active Effexor XR 75 MG Oral Capsule Extended Release 24 Hour 1 (one) Capsule ER 24HR qd for 0 days Quantity: 30 {Capsule} Refills: 4 Ordered:01-Aug-2017 Keyonna Coats MD Start : 01-Aug-2017 Active Flomax 0.4 MG Oral Capsule 1 (one) Capsule qd for 30 days Quantity: 30 {Capsule} Refills: 3 Ordered:06-Apr-2016 DO, Adelaida AFast DO, Adelaida A Start : 06-Apr-2016 Active Hydrocodone-Acetaminophen 5-325 MG Oral Tablet 1 (one) Tablet q 6 hours prn for 0 days Quantity: 60 {Tablet} Refills: 0 Ordered:02-Nov-2017 DO, Adelaida AFast DO, Adelaida A Start : 02-Nov-2017 Active Comments:sixtyDX: M54.16, M51.28963,411,000 - OD risk 100 Lunesta 3 MG [...] Quantity: 30 {Unspecified} Refills: 0 Ordered:25-Jul-2013 Flakito ACKERMAN, Adelaida Larios DO, Adelaida A Start : 25-Jul-2013 Active Protonix 40 MG Oral Tablet Delayed Release [address] bid for 0 days Quantity: 180 {Tablet} Refills: 3 Ordered:06-Jun-2017 Flakito ACKERMAN, Adelaida Larios DO, Adelaida A Start : 06-Jun-2017 Active [...] Quantity: 120 {Tablet} Refills: 0 Ordered:06-Apr-2016 Flakito ACKERMAN, Adelaida Larios DO, Adelaida A Start : 06-Apr-2016 Active [...] 20-Mar-2013 Inactive Comments:alternate with 20mg(per hans at [facility] - was not fillable if more than 1qd and would require pa at [phone] or [phone] - sent in this way to see [...] (Oral Capsule) 1 (one) Capsule Capsule bid e7uopeb for 21 days Quantity: 42 {Capsule} Refills: [...] Quantity: 1 {Aerosol_Soln} Refills: 3 Ordered:05-Nov-2010 Yola aSmpson LPN Start : 02-Sep-2010 End : 05-Nov-2010 Inactive NYSTATIN, 542889RICK/ML (Mouth/Throat Suspension) 10 cc tid for 0 [...] : 22-Jun-2013 End : 03-Sep-2013 Inactive ZOSTAVAX, 27532MZM/0.65ML (Subcutaneous Solution Reconstituted) 1 For Solution sc [...] Quantity: 3 {Inhaler} Refills: 3 Ordered:10-Apr-2014 Slarb VERIFICATION MANAGER, Tracey Start : 22-Jun-2013 End : 10-Apr-2014 Discontinued ATENOLOL, 50MG (Oral Tablet) 1 tab Tablet qd for 30 days Quantity: 30 {Tablet} Refills: 0 Ordered:10-Apr-2014 Slarb VERIFICATION MANAGER, Tracey Start : 12-Jun-2012 End : 10-Apr-2014 [...] Quantity: 60 {Capsule} Refills: 3 Ordered:10-Apr-2014 Slarb VERIFICATION MANAGER, Tracey Start : 29-Oct-2013 End : 10-Apr-2014 Discontinued Dymista 137-50 MCG/ACT Nasal Suspension 1 spray each nostril qd for 0 days Quantity: 2 {Tolley} Refills: 0 Ordered:11-Jun-2016 Leigh Ann Polk Start [...] : 05-Jan-2016 End : 06-Apr-2016 Discontinued Comments:Jelani report#[id number]- df viewed and approved- gave scripts to [...] Quantity: 35 {Chance} Refills: 0 Ordered:20-Feb-2007 Makeda eMjia Start : 20-Feb-2007 End : 20-Apr-2007 Discontinued [...] Quantity: 6 {Package} Refills: 0 Ordered:10-Apr-2014 Slarb VERIFICATION MANAGER, Tracey Start : 06-Feb-2014 End : 10-Apr-2014 [...] x3 one on scalp two on right anglican Status: Inactive as of 06-Jun-2017 Acute sinusitis, [...] W/WO Contrast Result: Comments: See Note; NOTES: [facility] Imaging Services [address] [place] [address] Brain W/WO Contrast MR#: [id number] Acct: [id number] Name: YUMIKO LANDRUM Rep #: [id number] : 1950 M 67 From: Rodney Sarah MD PCP: Adelaida Fraga DO Status: REG CLI Study: Brain W/WO Contrast Date of Exam: 09/26/17 Exam# [id number] Ordering Dr: Perico Crowe MD STUDY: MRI [...] CC: Perico Crowe MD; Adelaida Fraga DO Contract Administration Specialist: Signed 17-Sep-2017 Carotid Duplex Ultrasound Result: Comments: See Note; NOTES: [facility] Cardiovascular Services [address] [place] [address] Carotid Duplex Ultrasound 09/16/17 1012 MR#: [id number] Acct: [id number] Name: YUMIKO MCCOLLUM Rep #: [id number] : 1950 66 From: Jung Garcia MD [...] the left vertebral artery. Procedure Carotid Duplex 84306. The study was technically difficult. Exam performed [...] Date Dictated: 1012 Date Transcribed: 09/17/17 151 Contract Administration Specialist: Signed 17-Aug-2017 History and Physical Exam Result: Comments: See Note; NOTES: [facility] Medical Records Department [address] [place] [address] History and Physical 08/17/17913 MR#: [id number] Acct: [id number] Name: LYON AMBER E Rep #: [id number] : 1950 66 From: Remigio Lares MD PCP: Adelaida Fraga DO Status: REG [facility] Y Location: [facility] Problem List (1) Abnormal stress test Status: Acute (2) Atherosclerotic heart d isease of [place] coronary artery without angina pectoris Status: Chronic Qualifiers: [place] vs. transplanted heart: [place] heart Qualified Code(s): I25.10 - Atherosclerotic heart disease of [place] coron elise artery without angina pectoris Comment: [...] was trivial MR and TR and mild IA. His estimated RV systolic pressure was 30 [...] please see previously dictated out the patient CAMPO from 07/14/2017. Review of systems: Upon review [...] this approach. This note was generated with [employer] dictation software. It may contain incorrect words, spelling, and punctuation that were not noted in checking the note bef ore signing. 08/17/17 0925 <Electronically signed by Remigio Lares MD> Date Remigio Lares MD Cosigner Signature: Date (if applicable) CC: Adelaida Fraga DO; Remigio Lares MD Signed 11-Aug-2017 Chest PA and Lateral Result: Comments: See Note; NOTES: [facility] Imaging Services [address] [place] [address] Chest PA and Lateral MR#: [id number] Acct: [id number] Name: YUMIKO LANDRUM Brandon Rep #: [id number] : 1950 M 66 From: Will Guerrero MD PCP: Adelaida Fraga DO Status: REG CLI Study: Chest PA and Lateral Date of Exam: 08/11/17 Exam# [id number] Ordering Dr: Remigio Lares MD STUDY: X-RAY [...] CC: Adelaida Fraga DO; Remigio Lares MD Contract Administration Specialist: Signed 02-Aug-2017 Stress Report Result: Comments: See Note; NOTES: [facility] Cardiovascular Services [address] [place] [address] MR#: [id number] Acct: [id number] Name: YUMIKO LANDRUM Rep #: [id number] : [birth year] 66 From: Remigio Lares MD [...] 72 %. This note was generated with [employer] software. It may contain incorrect words, spelling, and punctuation that were not noted in checking the note before signing. 08/02/17 0422 <Electronically signed by Remigio Lares MD> Date Remigio Lares MD CC: Adelaida Fraga DO; Remigio Lares MD Date Dictate d: 08/02/171638 Date Transcribed: 08/02/171638 Contract Administration Specialist: PM Signed 14-Jul-2017 Cardiology Visit Report Result: Comments: See Note; NOTES: [facility] [address] [place] [address] OFFICE VISIT Date of Service: 07/14/17 MR#: [id number] Acct: [id number] Name: YUMIKO LANDRUM Rep #: [id number] : 1950 Provider: Remigio Lares MD Age/Sex: 66/M Location: [facility] Status: Signed HPI HPI Details: YUMIKO LANDRUM, is a 66 M who presents to the office today for outpatient card iovascular consultation for history of underlying CAD status post LAD PCI. He has been cared for in the past both by the [facility] members (Drs. Griggs and Edwin), at [facility] by Dr. Rosales, and at [facility] by Dr. Maury Veliz. He states he lost saw Dr. Veliz approximately 1 year ago. He is now relocating his care locally. He has a history of underlying CAD. He underwent a previous diagnostic car diac catheterization on 08/11/2005 at [facility]. At that point in time he [...] no significant stenosis. In April 2008, at [facility], he had a repeat diagnostic [...] luminal irregularities. He apparently was transferred to [facility] for further evaluation and care. The [...] an LYNDSEY inhibitor. He believes his former box maker wood remove these medications from ca s medication list. He does not recall [...] PO QAM cap 07/14/17 [History Confirmed 07/14/17] [facility] Medical History Presence of sten t in coronary artery (Chronic 08/11/05) Hyperlipidemia (Chronic) Hypertension (Chronic) Prinzmetal angina (Acute) Atherosclerotic heart disease of [place] coronary artery without angina pectoris (Chroni c) [...] affect Assessment AND Plan 1. Atherosclerosis of [place] coronary artery of [place] heart without angina pectoris I25.10 PTCA/RINA to [...] Code Off vis,new,level 4 Diagnoses Atherosclerosis of [place] coronary artery of [place] heart without angina pectoris I25.10 [place] vs. transplanted heart: n ative heart Presence of stent in coronary artery Z95.5 Hyperlipidemia, unspecified hyperlipidemia type E78.5 Hyperlipidemia type: unspecified Essential hypertension I10 Hypertension type: essential hype rtension COPD (chronic obstructive pulmonary disease) J44.9 Coding Level of Care Code Off vis,new,level 4 Diagnoses Atherosclerosis of [place] coronary artery of [place] heart without angina pectoris I 25.10 [place] vs. transplanted heart: [place] heart Presence of stent in coronary artery Z95.5 Hyperlipidemia, unspecified hyperlipidemia type E78.5 Hyperlipidemia type: unspecified Essential hypertension I10 Hypertension type: essential hypertension COPD (chronic obstructive pulmonary disease) J44.9 07/14/17 1558 <Electronically signed by Remigio Lares MD> Date Remigio Lares MD Cosigner Signature: Date (if applicable) CC: Adelaida Fraga DO 14-Jul-2017 12 Lead EKG performed by [facility] Result: Comments: See Note; NOTES: [facility] [address] [place] [address] 12 Lead EKG performed by [facility] 07/14/171435 MR#: [id number] Acct: [id number] Name: YUMIKO LANDRUM Rep #: [id number] : 1950 66 From: Remigio Lares MD Attending Dr: Remigio Lares MD Status: DEP AMB Ordering Dr: Remigio Lares MD Date: 07/14/17 Location: [facility] Sex: M C Admitted: BMS/12 Lead EKG performed by [facility] ECG Report Interpretation Sinus Rhythm Right bundle branch block. ABNORMAL Electronically signed on 07/14/2017 at 17:15 by Remigio Lares 07/14/17 1717 Date Remigio Lares MD CC: Adelaida Fraga DO Date Dictated: 07/14/171435 Date Transcribed: 07/14/171435 Contract Administration Specialist: PM Signed 04-Jul-2017 TXT - Blood Flow Screening Result: Comments: See Note; NOTES: [facility] Cardiovascular Services [address] [place] [address] 07/04/17 0840 MR#: [id number] Acct: [id number] Name: YUMIKO LANDRUM Rep #: [id number] [...] (1.0 or greater). Ordering Physician: Adelaida Fraga [facility] Physician: Adelaida Fraga Performed By: Kayla Kelley, RDCS, RVT 07/04/172221 Date Tyrese Garcia MD CC: Adelaida Fraga DO Date Dictated: 07/04/17 0840 Date Transcribed: 07/04/172221 Contract Administration Specialist: Signed 06-Jun-2017 L/S Spine Min 4 Views Result: Comments: See Note; NOTES: [facility] Imaging Services [address] [place] [address] L/S Spine Min 4 Views MR#: [id number] Acct: [id number] Name: YUMIKO LANDRUM Rep #: [id number] : 1950 M 66 From: Rafael Manley DO PCP: Adelaida Fraga DO Status: REG CLI Study: L/S Spine Min 4 Views Date of Exam: 06/06/17 Exam# [id number] Ordering Dr: Adelaida Fraga DO STUDY: X-RAY [...] Rafael Manley DO at 18:01 EDT Tel [phone], Service support , CC: Adelaida Fraga DO Contract Administration Specialist: Signed 18-Feb-2017 Ankle min 3 Views Result: Comments: See Note; NOTES: [facility] Imaging Services [address] [place] [address] Ankle min 3 Views MR#: [id number] Acct: [id number] Name: YUMIKO LANDRUM Rep #: [id number] D OB: 1950 M 66 From: Trevon Carrillo MD PCP: Adelaida Fraga DO Status: REG CLI Study: Ankle min 3 Views Date of Exam: 02/18/17 Exam# [id number] Ordering Dr: Adelaida Fraga DO STUDY: X-RAY [...] Service support , CC: Adelaida Fraga DO Contract Administration Specialist: Signed 18-Feb-2017 Chest without Contrast Result: Comments: See Note; NOTES: [facility] Imaging Services [address] [place] [address] Chest without Contrast MR#: [id number] Acct: [id number] Name: YUMIKO LANDRUM Brandon Rep #: [id number] : 1950 M 66 From: Kaitlin Campoverde PCP: Adelaida Fraga DO Status: REG CLI Study: Chest without Contrast Date of Exam: 02/18/17 Exam# [id number] Ordering Dr: Adelaida Fraga DO STUDY: CT [...] Service support , CC: Adelaida Fraga DO Contract Administration Specialist: Signed 10-Feb-2017 Chest PA and Lateral Result: Comments: See Note; NOTES: [facility] Imaging Services [address] [place] [address] Chest PA and Lateral MR#: [id number] Acct: [id number] Name: YUMIKO LANDRUM Rep #: [id number] : 1950 M 66 From: Chava Fu MD PCP: Adelaida Fraga DO Status: REG CLI Study: Chest PA and Lateral Date of Exam: 02/10/17 Exam# [id number] Ordering Dr: Yola Witt STUDY: X-RAY CHEST [...] are no acute f indings. Electronically Signed: Chaav Fu MD at 21:32 EST , Service support , CC: COCO Witt; Adelaida Fraga DO Contract Administration Specialist: Signed 18-Jan-2017 Chest PA and Lateral Result: Comments: See Note; NOTES: [facility] Imaging Services [address] [place] [address] Chest PA and Lateral MR#: [id number] Acct: [id number] Name: YUMIKO LANDRUM Rep #: [id number] : 1950 M 66 From: Erwin Jiménez MD PCP: Adelaida Fraga DO Status: REG CLI Study: Chest PA and Lateral Date of Exam: 01/18/17 Exam# [id number] Ordering Dr: Yola Witt STUDY: X-RAY CHES [...] EST Tel , Service support , CC: PEARL MAKERMayra Witt; Adelaida Fraga DO Contract Administration Specialist: Signed 11-Apr-2015 Chest PA and Lateral Result: Comments: See Note; NOTES: [facility] Imaging Services [address] [place] [address] Verdana 4d Chest PA and Lateral MR#: [id number] Acct: [id number] Name: YUMIKO LANDRUM Rep #: [id number] : 1950 M 64 From: Stephen Barba MD PCP: Adelaida Fraga DO Status: REG CLI Study: Chest PA and Lateral Date of Exam: 04/11/15 Exam# [id number] Ordering Dr: Adelaida Fraga DO STUDY: X-RAY [...] FACR at 20:20 EST , Service support [phone], RAD/Chest PA and Lateral IMPRESSION: Normal x-ray examination of the chest. No lingular infiltrate is noted on today's examination Electronically Signed: Stephen Barba MD, FACR at 20:20 EST , Service support [phone], CC: Adelaida Fraga DO Contract Administration Specialist: Signed 11-Apr-2015 Hip min 2 Views Result: Comments: See Note; NOTES: [facility] Imaging Services [address] [place] [address] Verda 4d Hip min 2 Views MR#: [id number] Acct: [id number] Name: CITLALLI LANDRUM Rep #: [id number] : 1950 64 From: Stephen Barba MD PCP: Adelaida Fraga DO Status: REG CLI Study: Hip min 2 Views Date of Exam: 04/11/15 Exam# [id number] Ordering Dr: Adelaida Fraga DO UDY: X-RAY [...] FACR at 20:19 EST , Service support [phone], RAD/Hip min 2 Views IMPRESSION: Normal x-ray examination of the pelvis and hip. Electronically Signed: Stephen Barba MD, FACR 201 07/23/18 at 20:19 EST , Service support [phone], CC: Adelaida Fraga DO Contract Administration Specialist: Signed 11-Apr-2015 L/S Spine Min 4 Views Result: Comments: See Note; NOTES: [facility] Imaging Services [address] [place] [address] Verda 4d L/S Spine Min 4 Views MR#: [id number] Acct: [id number] Name: YUMIKO LANDRUM Rep #: [id number] : 1950 64 From: Stephen Barba MD PCP: Adelaida Fraga DO Status: REG CLI Study: L/S Spine Min 4 Views Date of Exam: 04/11/15 Exam# [id number] Ordering Dr: Susannah Fraga ra, DO STUDY: [...] FACR at 20:20 EST , Service support [phone], RAD/L/S Spine Min 4 Views IMPRESSION: M ild degenerative disc disease at L2-3 and L5-S1. Facet arthrosis at L4-5 and L5-S1. Mild dextroscoliosis. Electronically Signed: Stephen Barba MD, FACR at 20:20 EST Tel , Service support [phone], CC: Adelaida Fraga DO Contract Administration Specialist: Signed 27-Aug-2014 Chest PA and Lateral Result: Comments: See Note; NOTES: [facility] Imaging Services [address] [place] [address] Radiology Report MR#: [id number] Acct: [id number] Name: YUMIKO LANDRUM Rep #: [id number] : 1950 M 63 From: Wilfredo Alvarado MD PCP: Adelaida Fraga DO Status: REG CLI Study: Chest PA and Lateral Date of Exam: 08/27/14 Exam# [id number] Ordering Dr: Adelaida Fraga DO STUDY: X- [...] Wilfredo Alvarado MD at 15:46 EDT Tel [phone], Service support [phone], 0079 RAD/Chest PA and Lateral IMPRESSION: Inc reased markings in the lingular segment of the left upper lobe suggestive of early infiltrate. Followup is recommended. Electronically Signed: Wilfredo Alvarado MD at 15:46 EDT Tel [phone], Service support [phone], CC: Adelaida Fraga DO Contract Administration Specialist: Signed 02-Jul-2013 12 Lead Electrocardiogram Result: Comments: See Note; NOTES: [facility] Cardiovascular Services [address] [place] [address] 12 Lead EKG 06/17/13 193 MR#: [id number] Acct: [id number] Name: CITLALLI LANDRUM Rep #: [id number] : 1950 62 From: Remigio Lares MD [...] Abnormal ECG Confirmed by GERDA CALVO, REMIGIO ([id number]), newspaper copy editor KARYNA RUBALCAVA ([id number]) on 2013 10:04:35 AM Referred By: Jose Fernando Confirmed By:REMIGIO LARES MD CC: Adelaida byrd DO Date Dictated: 06/17/131937 Date Transcribed: 06/17/131937 Contract Administration Specialist: Signed 30-Jun-2013 Emergency Department Summary Result: Comments: See Note; NOTES: [facility] Medical Records Department [address] [place] [address] Emergency Department Summary MR#: [id number] Acct: [id number] Name: YUMIKO LANDRUM Rep #: [id number] : 1950 62 From: Jose Fernando MD PCP: Adelaida Fraga DO Status: DEP ER DATE OF SERVICE: 06/28/2013 CHIEF COMPLAINT: Chest pain. HISTORY OF PRESENT ILLNESS: The patient states over the past 8 hours, he has had intermittent discomfort in the chest of burning to ache similar to angina. He had an [place], he thinks, back in 2011 when he had a stent placed by Dr. Mariah carr in [facility]. He has been off his blood [...] a 3. He agreed to go to [facility] where his box maker wood is in case he needs another cath and stent. He was stable for transfer. [facility] Trujillo as solutions development analyst accepted the patient after being advised of all the above through the transfer steam frame operator. He did not want to talk to me. The patient is stable for transfer, with him. DIAGNOSES: 1. Chest pain. 2. Unstable angina. Jose Fernando MD C C: Adelaida Fraga DO T: [facility] JOB: [id number] 06/30/13 0021 <Electronically signed by Jose Fernando MD> Date Jose Fernando MD CC: Adelaida Fraga DO Date Dictated: 06/28/13 2255 Date Transcribed: 06/28/132254 Contract Administration Specialist: Signed 28-Jun-2013 Chest 1 View (Portable) Result: Comments: See Note; NOTES: [facility] Imaging Services [address] [place] [address] Radiology Report MR#: [id number] Acct: [id number] Name: DOMINICKYUMIKO E Rep #: [id number] : 1950 M 62 From: Wilfredo Alvarado MD PCP: Adelaida Fraga DO Status: DEP ER Study: Chest 1 View (Portable) Date of Exam: 06/28/13 Exam# [id number] Ordering Dr: Jose Fernando MD STUDY: X-RAY [...] Wilfredo Alvarado MD at 9:06 EDT Tel [phone], Service support [phone], CC: Adelaida Fraga DO; Jose Fernando MD Contract Administration Specialist: Signed Immunization Name Dates Details Influenza vaccine, split, 3yrs &>, IM (AFLURIA) on: Nov-2017 Influenza, inj, MDCK, preservative free, q.valent on: 07-Dec-2016 Comments: Site: Lot #: [id number] Family History Unknown Family Member Name Dates [...] 0.00 cm Results Date Description Value Details 90-Jnq-528535:31 CBC W/Diff, Automated Comments: [facility] [address] [place], [address] Absolute Lymph 1.76 {X10_3/ul} (Normal) Range: 0.83-4.51 [...] 4.6-6.2 WBC 5.7 K/mm3 (Normal) Range: 4.4-11.0 38-Jiw-374589:31 Comprehensive Metabolic Profil Comments: [facility] [address] [place], [address] ; fu 10-16 DF GAP 9 (Normal) [...] A.D.A. criteria.Please note revised GLUCOSE reference range ovdexjjco18/02/2018. 66-Tut-525003:31 Hemoglobin A1c Comments: [facility] [address] [place], [place], [address] HGB A1C 6.0 % (Normal) Range: 4.2-6.3 :31 Lipid Profile Comments: [facility] [address] [place], [place], [id number] VLDL 24 mg/dL (Normal) Range: 5-40 LDL [...] Risk :31 PSA,Total - Annual Screen Comments: [facility] [address] [place], [place], [id number] PSA,TOT SCREEN 0.50 ng/mL (Normal) Range: 0.00-4.00 Comments: This test was performed using the TPSA assay method for the[facility] chemistry system. Values obtained with differentassay methods cannot be used interchangably.When changing PSA assays in the course of monitoring apatient, additional sequential testing should be carriedout to confirm baseline values. 80-Woi-523178:42 Aspergillus Antibodies Comments: [facility] (refer to report [...] mg/dL (Normal) Range: 700-1600 Comments: Performed at: [address] [id number] Director: Joseph Velez MD, Phone: [phone] at: [address]Lab Director: Hugo Britt PhD, Phone: [phone] 82-Pxs-127391:42 Miscellaneous Lab Comments: Comments: [id number],CLIVE,RTTest(s) Ordered: CLIVE Freedman,[facility] [address] [facility] [place], [place], [address] Procedure MISC Comments: TEST RESULT UNITS REFERENCE INTERVALA. fumigatus #1 Abs NEGATIVE NEGATIVE TESTING PERFORMED AT [facility]. O LAB (Normal) RIGINAL REPORT ON FILE IN LAB CONTAINS ADDITIONAL TEST SITE INFORMATION. TEST 8-Wgc-998414:28 Acetylcholine Receptor Comments: Has Patient had Radioactive Injection for X-ray?: [facility] (refer to report for specific site)refer to report for address and phone number ACTYL [id number] < 0.03 nmol/L (Normal) Range: 0.00-0.24 Comments: Negative: 0.00 - 0.24 Borderline: 0.25 - 0.40 Positive: > 0.40Performed at: [address] [id number] Director: Joseph Velez MD, Phone: [phone] 6-Hki-401401:28 BUN 9 mg/dL (Normal) Comments: [facility] [address] [place], [id number] Range: 7-18 :28 Serum Creatinine AND GFR Comments: [facility] [address] [place], [id number] EST GFR - AA 100 mL/min (Normal) Comments: GFR Calc EST GFR 83 mL/min (Normal) Comments: Non- GFR Calc CREAT,SERUM 0.97 mg/dL (Normal) Range: 0.70-1.30 Comments: The validity of the calculated GFR AND GFRAA in patients over70 years has not been determined. Clinical correlation isessential. :13 Culture, Fungus 8482 Comments: [facility] [address] [place], [id number] CUF See Note Comments: Cu,Uamznw9945 TESTING PERFORMED AT [facility], [place]. ORIGINAL REPORT ON FILE IN LAB CONTAINS ADDITIONAL TEST SITE INFORMATION. (Normal) ORGANISM 1: Barron albicansAmount Growth Growth ORGANISM 2: Penicillium speciesAmount Growth Growth :13 Culture, Sputum Comments: [facility] Jzigkfjkgq[address] [facility] [address] [place], [address] CUSP See Note (Normal) Comments: Gram StainAcceptable Specimen? Yes (<25 Epithelial cells per/lpf) Gram Stain 2+ White Blood Cells 2+ Epithelial cells 4+ Gram positive cocci 4+ Gram positive rods Resp. CultureNo Haemoph ilus, Streptococcus pneumoniae, beta-hemolytic Streptococcus or Staphylococcus aureus isolated. ORGANISM 1: Yeast Like OrganismAmount Growth Rare ORGANISM 2: Mixed FloraAmount Growth 3+ 85-Qmr-581493:59 CBC W/Diff, Automated Comments: [facility] Koqmrevymj9[address] [place], [address] Absolute Lymph 1.98 {X10_3/ul} (Normal) [...] 4.6-6.2 WBC 10.8 K/mm3 (Normal) Range: 4.4-11.0 89-Jgu-670110:59 Comprehensive Metabolic Profil Comments: [facility] Vlgflpbfcw7299 [address] [place], [address] GAP 10 (Normal) Range: 5-15 CO2 27.0 [...] A.D.A. criteria.Please note revised GLUCOSE reference range fxqgnynnw31/02/2018. 36-Sco-178252:59 Hemoglobin A1c Comments: [facility] Ngzxurdbtq5764 [facility] [place], [place], [address] HGB A1C 6.2 % (Normal) Range: 4.2-6.3 41-Run-104113:59 Lipid Profile Comments: [facility] Iuwfcmschj5674 [facility] [place], [place], [address] VLDL 13 mg/dL (Normal) Range: 5-40 LDL [...] 200-240 mg/dL Borderline >240 mg/dL High Risk 22-Eqn-624689:59 Microalb:Creat Ratio,Random UR Comments: [facility] Shuvmertft[address] [place], [place], [address] MALB:CREAT 10.1 {mg/g_CRE} (Normal) MICROALBUMIN,UR 5.6 mg/L (Normal) UR CREAT 55.70 mg/dL (Normal) :45 Basic Metabolic Profile (BMP) Comments: [facility] Arpobcijoc9[address] [place], [place], [address] GAP 6 (Normal) Range: 5-15 CO2 29.0 [...] Comments: Please note revised GLUCOSE reference range xqtbezxkp06/02/2018. 0-Rhq-102855:45 Lipid Profile Comments: [facility] Obtyimflvu[address] [place], [place], [address] VLDL 22 mg/dL (Normal) Range: 5-40 LDL [...] 200-240 mg/dL Borderline >240 mg/dL High Risk 6-Zpq-982559:45 Liver Profile Comments: [facility] Vzszzokwgh3369 [place], [address] D BILI 0.13 mg/dL (Normal) Range: 0.00-0.30 T BILI 0.50 mg/dL (Normal) Range: 0.20-1.00 ALT 27 U/L (Normal) Range: 16-61 ALK P 53 U/L (Normal) Range: 45-117 AST 20 U/L (Normal) Range: 15-37 GLOB 4.3 g/dL (Abnormal) Range: 2.2-4.2 ALB 3.0 g/dL (Abnormal) Range: 3.2-5.0 T PROT 7.3 g/dL (Normal) Range: 6.4-8.2 56-Ynd-092915:31 Basic Metabolic Profile (BMP) Comments: [facility] Xazslxzcbk8060 [address] [place], [place], [address] GAP 4 (Abnormal) Range: 5-15 CO2 27.0 [...] A.D.A. criteria.Please note revised GLUCOSE reference range nkpdymdvd40/02/2018. 75-Xvz-183700:31 CBC-Complete Blood Cnt No Diff Comments: [facility] Jdwaemdghy9702 [place], [address] MPV 8.7 fL (Normal) Range: [...] 4.6-6.2 WBC 9.6 K/mm3 (Normal) Range: 4.4-11.0 02-Zij-676421:31 Partial Thromboplast Time Comments: [facility] Uoubkwkfbx8906 [place], [address] PTT 26.1 s (Normal) Range: 24.1-36.2 47-Ctn-678613:31 Prothrombin Time w/INR Comments: [facility] Vtjaqzzqmg4058 [place], [address] INR 0.9 (Normal) PROTIME 12.5 s (Normal) Range: 11.7-14.9 :00 Culture, Fungus 8482 Comments: [place] [address] [place], [place], [address] CUF See Note Comments: Cu,Rjlbip9158 TESTING PERFORMED AT [facility], [place]. ORIGINAL REPORT ON FILE IN LAB CONTAINS ADDITIONAL TEST SITE INFORMATION. (Normal) ORGANISM 1: Barron albicansAmount Growth Growth ORGANISM 2: Penicillium speciesAmount Growth Growth ORGANISM 3: Aspergillus speciesAmount Growth Growth :00 Culture, Sputum Comments: [address] [place], [place], [address] CUSP See Note (Normal) Comments: Gram StainAcceptable Specimen? Yes (<25 Epithelial cells per/lpf) Gram Stain 1+ White Blood Cells Rare Epithelial cells 4+ Gram positive rods 1+ Gram negative rods Resp. Culture Mixed nor mal respiratory ashkan. No Haemophilus, Streptococcus pneumoniae, beta-hemolytic Streptococcus or Staphylococcus aureus isolated. 97-Mli-034439:00 Culture, Sputum Comments: [address] [place], [place], [address] CUSP See Note (Normal) Comments: Gram StainAcceptable Specimen? Yes (<25 Epithelial cells per/lpf) Gram Stain 1+ White Blood Cells Rare Epithelial cells 3+ Gram positive cocci Resp. CultureMixed normal respiratory ashkan. No Haemophilus, Streptococcus pneumoniae, beta-hemolytic Streptococcus or Staphylococcus aureus isolated. 07-Jwc-119146:44 TESTOSTERONE FREE (13372) Comments: PATIENT NOT FASTINGPERFORMED BY: [facility] Qctvlz3537 [facility] [id number] BY: [address] [id number] Free Testosterone(Direct) 2.6 pg/mL (Abnormal) Range: 6.6-18.1 14-Lqm-457697:44 HEPATITIS C ANTIBODY Comments: PATIENT NOT FASTINGPERFORMED BY: [place] 0773470 [facility] [id number] BY: [address] [id number] ([address]) Hep C Virus Ab 0.1 {s/co_ratio} (Normal) Range: 0.0-0.9 Comments: Negative: < 0.8 Indeterminate: 0.8 - 0.9 Positive: > 0.9 . The CDC recommends that a positive HCV antibody result be followed up with a HCV Nucleic Acid Amplification test (387540). 36-Pmt-444094:44 CBC W/AUTO DIFF WBC Comments: PATIENT NOT FASTINGPERFORMED BY: [facility] SystemMoozeyAlan Ville 6818870 [facility] [id number] BY: [address] [id number] ([address]) Immature Grans (Abs) 0.0 {x10E3/uL} (Normal) Range: [...] 4.14-5.80 WBC 6.1 {x10E3/uL} (Normal) Range: 3.4-10.8 64-Mnf-747996:44 METABOLIC PANEL, Comments: PATIENT NOT FASTINGPERFORMED BY: CB [facility] Jpgyif5002 [facility] [id number] BY: BN [facility] Cfplhepcjb3047 [facility] [id number] COMPREHENSIVE (93686) ALT (SGPT) 17 [iU]/L (Normal) Range: 0-44 [...] 8-27 Glucose 102 mg/dL (Abnormal) Range: 65-99 67-Ooo-825114:15 HgA1C , Office (99238) HgA1C , Office 5.7 % (Normal) Range: 4.6 - 7.1 :30 CBC W/Diff, Automated Comments: [facility] Agrbrqpmrn9[address] [place], [place], [address] Absolute Lymph 1.76 {X10_3/ul} (Normal) Range: 0.83-4.51 [...] 4.6-6.2 WBC 6.7 K/mm3 (Normal) Range: 4.4-11.0 67-Sqy-122163:30 Comprehensive Metabolic Profil Comments: [facility] Qmayczckxq9158 [address] [place], [address] GAP 9 (Normal) Range: 5-15 CO2 25.0 [...] 7-18 GLU 78 mg/dL (Normal) Range: 70-110 68-Vfy-558833:30 Culture, Urine Comments: [facility] Zjjzfmsonn7134 [address] [place], [address] CUUR See Note (Normal) Comments: Urine CultureCulture exhibits no growth. 06-Rwb-481330:30 Lipid Profile Comments: [facility] Chtiiwzhvj0338 [address] [place], [address] VLDL 19 mg/dL (Normal) Range: 5-40 LDL [...] 200-240 mg/dL Borderline >240 mg/dL High Risk 16-Sce-689712:10 Rapid Strep Test, Office (12370) Comments: Negative Rapid Strep Test, Office Negative (Normal) 18-Amo-02410:51 THROAT CULTURE (78567) Comments: PATIENT NOT FASTINGPERFORMED BY: [facility] [id number] Information: SRC:TH Result 1 RRF (Normal) Comments: Routine respiratory ashkan Upper Respiratory Culture Final report (Normal) 00-Squ-233282:02 Rapid Flu (95051 x 2) Comments: Negative Influenza A Ag Negative (Normal) 28-Omf-949353:45 URINE WARREN CULTURE-IDENTIFICATN Comments: PERFORMED BY: [employer] LabClear Books [facility] [id number] Information: SRC:UC (59776) Result 1 NG36 (Normal) Comments: No growth in 36 - 48 hours. Urine Culture,Comprehensive Final report (Normal) 11-Dix-973186:02 Urinalysis, Office (57045) UA - LEUKOCYTE ESTERASE Negative (Normal) UA - NITRITE Negative (Normal) URINE UROBILINGN MASSIEL TIMED Normal mg/dL (Normal) UA - PROTEIN Negative mg/dL (Normal) UA - PH 7 (Normal) UA - BLOOD Negative (Normal) UA - SPECIFIC GRAVITY 1.020 (Normal) UA - KETONES Negative mg/dL (Normal) UA - BILIRUBIN Negative (Normal) UA - GLUCOSE Negative (Normal) 50-Tor-576810:22 CBC W/Diff, Automated Comments: [facility] Lifxviadbq7801 [place], [address] Absolute Lymph 1.50 {X10_3/ul} (Normal) [...] Range: 4.4-11.0 :22 Comprehensive Metabolic Profil Comments: [facility] Ybbofviauh9496 [place], [address] ; will review opn 11/10 [...] 7-18 GLU 104 mg/dL (Normal) Range: 70-110 80-Jhc-258146:22 Hemoglobin A1c Comments: [facility] Jfvgmgyjjq4651 [place], [address] HGB A1C 5.6 % (Normal) Range: 4.2-6.3 26-Inl-561107:22 Immunofixation, Serum Comments: [facility] (refer to report for specific site)refer to report for address and phone number PAULA RESULT,S Comment (Normal) Comments: No monoclonality detected. IMMUNOGL M 53 mg/dL (Normal) Range: 20-172 IMMUNO A 169 mg/dL (Normal) Range: 61-437 IMMUNO G 692 mg/dL (Abnormal) Range: 700-1600 36-Rea-459785:22 [place] [employer] Comments: [facility] (refer to report for specific site)refer to report for address and phone number KAPPA/LAMBDA % 1.17 (Normal) Range: 0.26-1.65 Comments: Performed at: - [facility] [address] [id number] Director: Hugo Britt PhD, Phone: [phone] FR LAMBDA LT CH 12.3 mg/L (Normal) Range: 5.7-26.3 FR KAPPA LT CHN 14.4 mg/L (Normal) Range: 3.3-19.4 20-Ays-207003:22 Lipid Profile Comments: [facility] Dbkrpfgyvf4927 [place], [address] VLDL 20 mg/dL (Normal) Range: [...] 200-240 mg/dL Borderline >240 mg/dL High Risk 52-Rkq-889376:22 Microalb:Creat Ratio,Random UR Comments: [facility] Sfiiaoqwgy7335 [place], [address] ; will review on 11/10 MALB:CREAT 5.6 {mg/g_CRE} (Normal) MICROALBUMIN,UR 7.2 mg/L (Normal) UR CREAT 128.00 mg/dL (Normal) 80-Scw-329676:22 PSA,Total - Annual Screen Comments: [facility] Fecfqjdupi5033 [place], [address] PSA,TOT SCREEN 0.63 ng/mL (Normal) Range: 0.00-4.00 Comments: This test was performed using the TPSA assay method for the[facility] chemistry system. Values obtained with differentassay methods cannot be used interchangably.When changing PSA assays in the course of monitoring apatient, additional sequential testing should be carriedout to confirm baseline values. :07 CBC W/Diff, Automated Comments: [facility] Kxf[address]ryv[address] [place], [place], [address] Absolute Lymph 1.42 {X10_3/ul} (Normal) Range: 0.83-4.51 [...] :07 Comprehensive Metabolic Profil Comments: [facility] Uisbsyfjpj[address] [place], [place], [address] GAP 8 (Normal) Range: 5-15 CO2 27.0 [...] 7-18 GLU 104 mg/dL (Normal) Range: 70-110 11-Onz-750456:07 Hemoglobin A1c Comments: [facility] Bdkwogwroq0622 [address] [place], [place], [address] HGB A1C 5.6 % (Normal) Range: 4.2-6.3 00-Kca-859645:07 PAULA + Protein Elect, Serum Comments: Is Patient Fasting? [facility] (refer to report for specific site)refer to report for address and phone number NOTE: Comment (Normal) Comments: Protein electrophoresis scan will follow via computer,mail, or fundraising coordinator delivery.Performed at: [facility] [address] [id number] Director: Hugo Britt PhD, Phone: [phone] PAULA RESULT,S Comment (Normal) Comments: No monoclonality detected. A/G RATIO 1.2 (Normal) Range: 0.7-1.7 GLOBULIN, TOTAL 3.0 g/dL (Normal) Range: 2.2-3.9 M-SPIKE g/dL (Normal) Comments: Not Observed GAMMA GLOBULIN 0.7 g/dL (Normal) Range: 0.4-1.8 BETA GLOBULIN 1.1 g/dL (Normal) Range: 0.7-1.3 DKPLJ-1-NSOQ 0.8 g/dL (Normal) Range: 0.4-1.0 BLMNY-8-NMUD 0.3 g/dL (Normal) Range: 0.0-0.4 ALBUMIN 3.3 g/dL (Normal) Range: 2.9-4.4 IMMUNOGL M 53 mg/dL (Normal) Range: 20-172 IMMUNO A 177 mg/dL (Normal) Range: 61-437 IMMUNO G 761 mg/dL (Normal) Range: 700-1600 PROTEIN,TOTAL 6.3 g/dL (Normal) Range: 6.0-8.5 42-Lob-872046:07 Lipid Profile Comments: [facility] [address] [place], [place], [address] VLDL 21 mg/dL (Normal) Range: 5-40 LDL [...] 200-240 mg/dL Borderline >240 mg/dL High Risk 29-Oyw-423870:01 CBC W/Diff, Automated Comments: [facility] D[address] [place], [address] Absolute Lymph 1.62 {X10_3/ul} (Normal) [...] 4.6-6.2 WBC 7.6 K/mm3 (Normal) Range: 4.4-11.0 16-Mdc-403028:01 Comprehensive Metabolic Profil Comments: [facility] Ayumkkhubt5078 Andrea [place], [place], [address] ; has apt today GAP 7 (Normal) [...] 7-18 GLU 96 mg/dL (Normal) Range: 70-110 15-Vdn-776246:01 Lipid Profile Comments: [facility] Endguleiit4620 [facility] [place], [place], [address] VLDL 11 mg/dL (Normal) Range: 5-40 LDL [...] 200-240 mg/dL Borderline >240 mg/dL High Risk 60-Ute-695238:01 Lipoprotein A 369 nmol/L (Abnormal) Comments: [facility] [...] genetic factors on Lp(a) across ethnicities.Performed at: [employer] homedeco2u [address] [id number] Director: Hugo Britt PhD, Phone: [phone] 07-Gku-183513:56 HgA1C , Office (41725) HgA1C , Office 5.6 % (Normal) Range: 4.6 - 7.1 9-Dou-425186:19 ANCA Panel Comments: PATIENT NOT FASTINGPERFORMED BY: [employer] [id number] BY: [employer] [address] [id number] Atypical pANCA <1:20 {titer} Comments: The atypical [...] follow up testing ofpositive sera with both IA-3 and MPO-ANCA enzyme immunoassays. Asmany as 5% serum samp les are positive only by EIA.Ref. AM J Clin Pathol 1999;111:507-513. Cytoplasmic (C-ANCA) <1:20 {titer} (Normal) Antiproteinase 3 (IA-3) Abs <3.5 U/mL (Normal) Range: 0.0-3.5 Antimyeloperoxidase (MPO) Abs <9.0 U/mL (Normal) Range: 0.0-9.0 8-Nkh-023084:19 Antinuclear Antibodies Comments: PATIENT NOT FASTINGPERFORMED BY: [employer] [id number] BY: [facility]6370 [facility] [id number] Direct JOHN Direct Negative (Normal) :1 C-Reactive Protein, 2.1 mg/L (Normal) Comments: PATIENT NOT FASTINGPERFORMED BY: [address] [id number] BY: [facility]6370 [facility] [facility] [id number] 9 Quant Range: 0.0-4.9 :19 Rheumatoid Arthritis Comments: PATIENT NOT FASTINGPERFORMED BY: [address] [id number] BY: [place] 0773470 [facility] [id number] Factor RA Latex Turbid. 7.8 {IU/mL} Range: 0.0-13.9 (Normal) Sedimentation 8 mm/h (Normal) Comments: PATIENT NOT FASTINGPERFORMED BY: [address] [id number] BY: [place] 0773470 [facility] [id number] :19 Rate-Westergren Range: 0-30 Thyroid Peroxidase (TPO) 8 {IU/mL} (Normal) Comments: PATIENT NOT FASTINGPERFORMED BY: [address] [id number] BY: [place] 0773470 [facility] [id number] :19 Ab Range: 0-34 :19 Thyroxine (T4) Free, Comments: PATIENT NOT FASTINGPERFORMED BY: [address] [id number] BY: [place] 0773470 [facility] [id number] Direct, S T4,Free(Direct) 1.11 ng/dL Range: 0.82-1.77 (Normal) Triiodothyronine,Free,Seru 2.5 pg/mL (Normal) Comments: PATIENT NOT FASTINGPERFORMED BY: LabSaint [facility]1447 [facility] [id number] BY: Lab[facility]6370 [facility] [id number] 2:19 m Range: 2.0-4.4 TSH 3.450 {uIU/mL} Comments: PATIENT NOT FASTINGPERFORMED BY: [facility]Co[address] [id number] BY: LabCore[facility]6370 [facility] [id number] 2:19 (Normal) Range: 0.450-4.500 1-Kwc-079776:30 Pathology Report Comments: PERFORMED BY: [facility]De[facility] Rbfct24750 [facility] [id number] Information: [id number] See MATER Comments: Material submitted: .FOREHEAD SHAVE [...] IN CASSETTE(S) A./CORCOR/CORPa thologist provided ICD-10:D48.5, L90.9CPT .281098 12-Uvr-04842:22 TESTOSTERONE FREE (51477) Comments: PATIENT WAS FASTINGPERFORMED BY: [employer] [facility] [id number] BY: [employer] [id number] Free Testosterone(Direct) 2.5 pg/mL (Abnormal) Range: 6.6-18.1 93-Aga-22797:22 VITAMIN B-12 (CYANOCOBALAMIN) Comments: PATIENT WAS FASTINGPERFORMED BY: [employer]70 [employer] Car[facility] CenterPlay2FocusCone Health [facility] [id number] BY: [employer] [id number] ([address]) Vitamin B12 638 pg/mL (Normal) Range: 211-946 00-Fip-82810:22 CBC W/AUTO DIFF WBC Comments: PATIENT WAS FASTINGPERFORMED BY: [employer] [facility] CenterPlay2FocusCone [facility] [id number] BY: [employer] [id number] Inf ormation: NURSE DRAW (98275) Immature Grans (Abs) 0.0 {x10E3/uL} (Normal) Range: [...] 4.14-5.80 WBC 7.3 {x10E3/uL} (Normal) Range: 3.4-10.8 65-Ttp-16323:22 METABOLIC PANEL, Comments: PATIENT WAS FASTINGPERFORMED BY: CB [facility] Nwsgcw9018 [facility] [id number] BY: [facility] [address] [id number] [facility] (93096) ALT (SGPT) 12 [iU]/L (Normal) Range: 0-44 [...] Glucose, Serum 100 mg/dL (Abnormal) Range: 65-99 01-Xhb-84408:52 CBC W/Diff, Automated Comments: [facility] Yxsgpsxcxf5380 [address] [place], [place], [address] Absolute Lymph 1.73 {X10_3/ul} (Normal) Range: 0.83-4.51 [...] 4.6-6.2 WBC 6.0 K/mm3 (Normal) Range: 4.4-11.0 87-Ges-14345:52 Comprehensive Metabolic Profil Comments: [facility] Jfvuvlphtj3846 [address] [place], [place], [address] GAP 6 (Normal) Range: 5-15 CO2 26.0 [...] 70-110 :52 Hemoglobin A1c Comments: [facility] [address] [place], [place], [address] HGB A1C 5.6 % (Normal) Range: 4.2-6.3 :52 Lipid Profile Comments: [facility] K[address] [place], [address] VLDL 21 mg/dL (Normal) Range: [...] :52 Microalb:Creat Ratio,Random UR Comments: [facility] Ugmrcywjol[address] [place], [address] MALB:CREAT 9.1 {mg/g_CRE} (Normal) MICROALBUMIN,UR 9.0 mg/L (Normal) UR CREAT 99.50 mg/dL (Normal) :52 PSA,Total - Annual Screen Comments: [facility] [address] [place], [address] PSA,TOT SCREEN 0.51 ng/mL (Normal) Range: 0.00-4.00 Comments: This test was performed using the TPSA assay method for [employer] chemistry system. Values obtained with differentassay methods cannot be used interchangably.When changing PSA assays in the course of monitoring apatient, additional sequential testing should be carriedout to confirm baseline values. COLON BIOPSY (CHOOSE See Note (Normal) Comments: [facility] Zuahiexnkp05[address] [place], [address] :45 SITE) Comments: Patient: YUMIKO LANDRUM : 1950 (64/M) Acct Num: [id number] Phys: Hugo Bullock Unit Num: [id number] Loc: LABSPEC Specimen: [id number] Received: 09/11/151646 Spec Type: C OLON BX [...] in one cassette. / IRON:momo 09/11 TC:1 CPT:97010 x2 HEADER OPERATION: Colonoscopy with biopsy PRE-OP DIAGNOSIS: Screening/polyp TISSUE SUBMITTED: A - Polyp cecum, R/O adenoma, B - Polyp sigmoid, R/O adenoma MICROSCOP IC DESCRIPTION Slides are reviewed. MICROSCOPIC DIAGNOSIS A. Polyp cecum, biopsy: Fragments of tubular adenoma. B. Polyp sigmoid, biopsy: Fragments of tubular adenoma. SJ:momo 09/15/15 Signed Pamella Son 09/15/15 <signature on file> :37 CBC W/Diff, Automated Comments: [facility] Imerizzmuk6[address] [place], [place], [address] ; noon-emergent till apt Absolute Lymph 1.39 [...] 4.6-6.2 WBC 6.5 K/mm3 (Normal) Range: 4.4-11.0 72-Ljx-230062:37 Comprehensive Metabolic Profil Comments: [facility] Vqsflzvcdg7271 [address] [place], [place], [address] GAP 6 (Normal) Range: 5-15 CO2 27.0 [...] <126 mg/dLsuggests IMPAIRED HOMEOSTASIS per A.D.A. criteria. 89-Czt-426795:37 Hemoglobin A1c Comments: [facility] Ewvrophrzg3146 [facility] [place], [place], [address] HGB A1C 5.6 % (Normal) Range: 4.2-6.3 78-Jrr-180714:37 Lipid Profile Comments: [facility] [address] [place], [place], [address] VLDL 17 mg/dL (Normal) Range: 5-40 LDL [...] 200-240 mg/dL Borderline >240 mg/dL High Risk 5-Pbu-554728:12 Factor II, DNA Analysis Comments: [facility] (refer to report for specific site)refer to report for address and phone number COMMENT Comment (Normal) Comments: Genetic Counselors are available for health care providersto discuss results at [phone] [facility] (5573).Methodology:DNA analysis of the Factor II gene was performed by PCRamplification followed by restric tion analysis. Thediagnostic sensitivity is >99% for both. All the tests mustbe combined with clinical information for the most accurateinterpretation. Molecular-based testing is highly accurate,but as in any laboratory test, diagnostic errors may occur.Matthewt SR, et al. Blood. 1996; 88:7211-4273.Diallo EA. Circulation. 2004; 110:e15-e18.Bobby I, et al. Arterioscler Thromb Vasc Biol. 1999;19:700 -703.Lance Shea, PhDRuthie Cooper, PhDAnahy Delgado, Lorena Beal, Xiomara Easley, PhDKelly Benjamin, PhDPerformed at: TG - [facility] [id number] [place], [place] [id number] villa: Vilma Butterfield MD, Phone: [phone] FACTOR II,DNA Comment (Normal) Comments: NEGATIVENo mutation identified.Comment:A point mutation ([id number]) in the factor II (prothrombin)gene is the [...] individual mutations. This assaydetects only the prothrombin M36847B mutation and doesnot measure genetic abnormalities elsewhere i n thegenome. Other thrombotic risk factors may be pursuedthrough systematic clinical laboratory analysis. Thesefactors include the R506Q ([place]) mutation in the Factor Vgene, plasma homocysteine levels , as well as testing fordeficiencies of antithrombin III, protein C and protein S. 51-Mep-95578:42 Miscellaneous Comments: Comments: [id number],PLASMA,[facility](s) Ordered: [id number],PLASMA,[facility] Dxorqjoqkm[address] [place], [address] Lab Procedure MISC Comments: TEST RESULT UNITS REFERENCE INTERVALAntithrombin III, Func/ImmunolAntithrombin Activity 97 % 75 - 135Antithrombin Antigen 97 % 75 - 130 LAB (Normal) TESTING PERFORMED AT [facility] [place]. ORIGINAL REPORT ON FILE IN LAB CONTAINS ADDITIONAL TEST SITE INFORMATION. TEST 1 Throm 15.9 Comments: [facility] [place] (refer to report for specific site)refer to report for address and phone number 9 bin {sec} Range: 0.0-20.0 - Time (Normal) Comments: Performed at: [address] [place], [place] [id number] Director: Joseph Velez MD, Phone: [phone] F e b - 2 0 1 6 9 : 4 2 :34 CBC W/Diff, Automated Comments: [facility] [address] [place], [address] Absolute Lymph 1.34 {X10_3/ul} (Normal) [...] (Normal) Range: 4.4-11.0 :34 Comprehensive Comments: Comments: [id number],ELENO PALMERSelect [facility] [address] [place], [place], [phone] ; apt today Metabolic Profil GAP 8 [...] 7-18 GLU 109 mg/dL (Normal) Range: 70-110 94-Cxc-07838:34 Fact V Leiden Mutation Comments: [facility] (refer to report for specific site)refer to report for address and phone number COMMENT Comment (Normal) Comments: Genetic counselors are available for health careproviders to discuss results at [phone]).Methodology:DNA analysis of the Factor V gene was [...] Xiomara lugo, PhDKelly Benjamin, PhDPerformed at: - [facility] CenterEenfvcpnhv6730 [place], [place] [id number] Director: Joseph Velez MD, Phone: [phone] at: [facility] QMP5269 [place], [place] [id number] Director: Vilma Btuterfield MD, Phone: [phone] FACTOR V LEIDEN Comment (Normal) Comments: Result: [...] in the workup for venous thrombosis include [id number] mutation in the factor II (prothrombin) gene,protein S and C deficiency, and antithrombin deficiencies.Anticardiolipin antibody and lupus anticoagu lant analysismay be appropriate for certain patients, as well ashomocysteine levels.Contact your local [facility] for information on how to orderadditional testing if desired. :34 Hemoglobin A1c Comments: [facility] [address] [place], [place], [id number] HGB A1C 5.6 % (Normal) Range: 4.2-6.3 :34 Lipid Profile Comments: Comments: [id number],SPENCERSelect Medical [facility] [address] [place], [address] VLDL 17 mg/dL (Normal) Range: [...] 200-240 mg/dL Borderline >240 mg/dL High Risk 72-Orr-03127:34 Miscellaneous Lab Comments: Comments: [id number],BLUEANDRED,FZTest(s) Ordered: SPENCER Gonsalves FZSelect [facility] [address] [place], [address] Procedure MIS Comments: TEST RESULT UNITS REFERENCE [...] anticoagulant is not de tected. aCL and T7KF9ikphdmglmv are normal.ANTIPHOSPHOLIPID SYNDROME ASSESSMENT SUMMARY-No evidence of a lupus anticoagulant, B2GP1 or aCLantibodies. As antibody titers may fluctuate with time,repeat te sting may be indicated if antiphospholipid syndromeis suspected.ANTIPHOSPHOLIPID SYNDROME ASSESSMENT DEFINITIONS-aCL- anticardiolipin (antibodies to cardiolipin); A2TI1-jzjrmnhavz to Beta-2 Glycoprotein 1; LA- lupus anticoagulant(which is identified with the dRVVT and/or hexagonalphospholipid neutralization assays); aPL- antibodies toprotein/phospholipid complexes such as LA, aCL, and N2MD2hebxfxiwsb; APS- antiphospholipid syndrome; DTI-directthrombin inhibitors.-REVERBERATORY SKIMMER:For questions regarding panel interpretation, please contactHalle Arrington [...] V et al. J Thromb Haemost. 2009; 7(10):5679-9908.(2) Tyrone S et al. J Thromb H aemost. 2006;4(2):295-306.(3) Keith DA et al. Blood. 2007;110(9): 2999-9864. [facility]. ORIGINAL REPORT ON FILE IN [...] PROTEIN S,TOTAL 136 % (Normal) Range: 58-150 21-Jse-410758:54 CBC W/Diff, Automated Comments: [facility] [address] [place], [place], [id number] Absolute Lymph 1.61 {X10_3/ul} (Normal) Range: 0.83-4.51 [...] 4.6-6.2 WBC 7.1 K/mm3 (Normal) Range: 4.4-11.0 19-Ebh-074464:54 Comprehensive Metabolic Profil Comments: [facility] [address] [place], [place], [address] GAP 7 (Normal) Range: 5-15 CO2 26.0 [...] 7-18 GLU 98 mg/dL (Normal) Range: 70-110 85-Zjd-437636:54 Lipid Profile Comments: [facility] [address]upr[address] [facility], [address] ; apt today VLDL 19 [...] Metabolic Profil Comments: Test performed at:[facility] Oqvxoy[address]acl1575 [facility] [address] GAP 7 (Normal) Range: 5-15 [...] Comments: Please note revised CREATININE reference range ogngaqykt44/22/2015. BUN 15 mg/dL (Normal) Range: 7-18 GLU 103 mg/dL (Normal) Range: 70-110 :55 Hemoglobin A1c Comments: Test performed at:[facility] [address] [place] [address] HGB A1C 6.0 % (Normal) Range: 4.2-6.3 :55 Lipid Profile Comments: Test performed at:[facility] [address] [place] [address] VLDL 17 mg/dL (Normal) Range: 5-40 LDL [...] 200-240 mg/dL Borderline >240 mg/dL High Risk 90-Due-620533:49 Anti-dsDNA Ab Comments: ADDED PER VERBAL ORDER - FAXED ORDER TO FOLLOWSpecimen Comment: A duplicate report has been generated due to demographicSpecimen Comment: updates.Test performed at:[facility] Laboratory1 [address] [place] [address] dsDNA AB 12 {IU/mL} (Abnormal) Range: 0-9 Comments: Negative <5 Equivocal 5 - 9 Positive >9; ADDENDA: non-emergent because has apt today to discuss. 22-Jxy-743565:49 ANTINUCLEAR ANTIBODIES DIRECT Comments: Test performed at:[facility] [address] [place] [address] JOHN-DIRECT Positive (Abnormal) Comments: Performed at: [address] [id number] Director: Reno Yanes PhD, Phone: [phone] 66-Gzc-362256:49 CBC W/Diff, Automated Comments: Test performed at:[facility] [address] [place] [address] Absolute Lymph 1.22 {X10_3/ul} (Normal) [...] 4.6-6.2 WBC 4.9 K/mm3 (Normal) Range: 4.4-11.0 34-Wuh-698841:49 Comprehensive Metabolic Profil Comments: Test performed at:[facility] [address] [place] [address] GAP 6 (Normal) Range: 5-15 [...] 7-18 GLU 104 mg/dL (Normal) Range: 70-110 12-Dxz-165068:49 CRP Comments: Test performed at:[facility] Dpqsnrfnha0618 [facility] [place], [place] [id number] C-REACTIVE PROT < 2.90 mg/L (Normal) Range: 0.0-3.0 Comments: C-Reactive Protein (CRP) provides useful information for thediagnosis, therapy and monitoring of inflammatory processesand associated diseases. For the evaluation of Relative Riskfor Cardiovascular Dise ase, a High Sensitivity CRP (HSCRP)should be ordered. :49 Culture, Urine Comments: Test performed at:[facility] [address] [place] [address] CUUR See Note (Normal) Comments: Urine CultureCulture exhibits no growth.; ADDENDA: Pt has apt today, will discuss then :49 Erythrocyte Sed Rate Comments: Test performed at:[facility] [address] [place] [address] SED RATE 21 mm/h (Abnormal) Range: 0-20 14-Gsf-237404:49 Hemoglobin A1c Comments: Test performed at:[facility] [address] [place] [address] HGB A1C 5.8 % (Normal) Range: 4.2-6.3 60-Yyh-849064:49 Lipid Profile Comments: Test performed at:[facility] [address] [place] [address] VLDL 8 mg/dL (Normal) Range: [...] 200-240 mg/dL Borderline >240 mg/dL High Risk 28-Uqh-226581:49 Microalb:Creat Ratio,Random UR Comments: Test performed at:[facility] [address] [place] [address] MALB:CREAT 12.2 {mg/g_CRE} (Normal) MICROALBUMIN,UR 17.2 mg/L (Normal) UR CREAT 140.0 mg/dL (Normal) :49 PSA,Total - Annual Screen Comments: Test performed at:[facility] [address] [place] [address] PSA,TOT SCREEN 0.47 ng/mL (Normal) Range: 0.00-4.00 Comments: This test was performed using the TPSA assay method for [employer] chemistry system. Values obtained with differentassay methods cannot be used interchangably.When changing PSA assays in the course of monitoring apatient, additional sequential testing should be carriedout to confirm baseline values. :49 Thyroid Stim Hormone (TSH) Comments: Test performed at:[facility] [address] [place] [address] TSH 1.60 {uIU/mL} (Normal) Range: 0.358-3.74 21-Ccd-138507:49 Urinalysis, Complete Comments: How was Urine Obtained? Urine, RandomTest performed at:[facility] [address] [place] [address] MUCUS, URINE 0 SEEN {/hpf} (Normal) BACTERIA [...] Urine Obtained? Urine, RandomTest performed at:[facility] [address]6743 [facility] [address] MUCUS, URINE 2+ {/hpf} (Normal) [...] (Normal) CLARITY Clear (Normal) COLOR Yellow (Normal) 69-Txj-361588:07 Comprehensive Metabolic Profil Comments: Test performed at:[facility] [address] [facility] [place], [place] [address] GAP 6 (Normal) Range: 5-15 CO2 28.0 [...] 7-18 GLU 108 mg/dL (Normal) Range: 70-110 87-Hat-545062:07 CPK Total, Creatine Kinase Comments: Test performed at:[facility] [address] [place], [place] [address] CPK TOTAL 91 U/L (Normal) Range: 39-308 16-Mmz-466732:56 Rapid Flu (66125 x 2) Influenza A Ag negative (Normal) 2-Lab-197087:28 URINE WARREN CULTURE-MASSIEL COL Comments: PATIENT NOT FASTINGPERFORMED BY: [facility] Lshrjj6976 [facility] [id number] Information: SRC:UR L31466 COUNT (67826) Result 1 ECV (Abnormal) Comments: Escherichia coli, [...] R Urine Final report Culture,Comprehensi (Abnormal) ve 9-Cfr-243857:58 Urinalysis, Office (92070) UA - LEUKOCYTE ESTERASE Small (Normal) UA - NITRITE Negative (Normal) URINE UROBILINGN MASSIEL TIMED 2 mg/dL (Normal) UA - PROTEIN 30 mg/dL (Normal) UA - PH 6.0 (Normal) Comments: 5.5 UA - BLOOD Hemolyzed Small (Normal) UA - SPECIFIC GRAVITY 1.030 (Abnormal) UA - KETONES Negative mg/dL (Normal) UA - BILIRUBIN Small (Normal) UA - GLUCOSE Negative (Normal) 9-Hsq-495359:41 URINE WARREN CULTURE-MASSIEL COL Comments: PATIENT NOT FASTINGPERFORMED BY: [facility]6370 [facility] [id number] Information: SRC: URINE COUNT (45652) Result 1 ECV (Abnormal) Comments: Escherichia coli, [...] R Urine Final report Culture,Comprehensi (Abnormal) ve 8-Pgx-146983:27 Urinalysis, Office (16235) UA - LEUKOCYTE ESTERASE Trace (Normal) UA - NITRITE Negative (Normal) URINE UROBILINGN MASSIEL TIMED 2 mg/dL (Normal) UA - PROTEIN Negative mg/dL (Normal) UA - PH 6.0 (Normal) UA - BLOOD Negative (Normal) UA - SPECIFIC GRAVITY 1.010 (Normal) UA - KETONES Negative mg/dL (Normal) UA - BILIRUBIN Negative (Normal) UA - GLUCOSE Negative (Normal) 2-Fyx-738621:30 HgA1C , Office (95814) HgA1C , Office 5.7 % (Normal) Range: 4.6 - 7.1 1-Okp-318810:10 URINE WARREN CULTURE-MASSIEL COL Comments: PATIENT NOT FASTINGPERFORMED BY: [facility]6370 [facility] [id number] Information: SRC:UR M30843 COUNT (34057) Result 1 NG36 (Normal) Comments: No growth in 36 - 48 hours. Urine Culture,Comprehensive Final report (Normal) 2-Tqa-916782:58 CBCD PATHR Reviewed (Normal) RBCM NORM C+C [...] 4.6-6.2 WBC 5.2 K/mm3 (Normal) Range: 4.4-11.0 3-Dfw-363506:58 CMP GAP 7 (Normal) Range: 5-15 CO2 [...] CHOL 155 mg/dL (Normal) Comments: <200 mg/dL Cmaadnjku868-377 mg/dL Borderline>240 mg/dL High Risk TRIG 121 [...] (Normal) UCLAR Clear (Normal) UCOL Yellow (Normal) 62-Wkh-552448:20 CUUR URC See Note (Normal) Comments: ESBL+ [...] >=320 R (NF) indicates non-formulary drug at [facility]. Approval by Infectious DiseaseSpecialist required before non-formulary drugs may beordered and/or dispensed. 86-Zom-573191:20 UA Comments: How was Urine Obtained? CLEAN CATCH ANGE 500 /ul (Abnormal) MICA Negative (Normal) UOB 25 /ul (Abnormal) LEESA 6.0 (Normal) Range: 5.0 - 8.0 uPROTU 30 mg/dL (Abnormal) UROBU 1 mg/dL (Abnormal) KETU Negative mg/dL (Normal) SGU 1.015 (Normal) Range: 1.002-1.030 BILIU Negative mg/dL (Normal) GLUR Normal mg/dL (Normal) UCLAR Cloudy (Normal) UCOL Yellow (Normal) 22-Jkl-348516:27 A1C 5.6 % (Normal) Range: 4.2-6.3 29-Glk-304123:27 B12 574 pg/mL (Normal) Range: 211-911 66-Feq-143796:27 CBC MPV 8.8 fL (Normal) Range: 6.2-12.0 [...] 4.6-6.2 WBC 6.4 K/mm3 (Normal) Range: 4.4-11.0 22-Pkx-379133:27 CUUR URC Culture exhibits no growth. (Normal) 93-Ovz-031902:27 EBGM EBNA 81.6 U/mL (Abnormal) Range: 0.0-17.9 Comments: Negative <18.0Equivocal 18.0 - 21.9Positive >21.9 tEBINT Comment (Normal) Comments: EBV Interpretation ChartInterpretation EBV-IgM VCA-IgG EBNA-IgG EA(D)-IgGEBV Seronegative - - - -Early Phase + - - -Acute Primary + + - +or-InfectionConvalescence/Past - + + +or-InfectionReactivated +or- + + +Infection+ Antibody Present - Antibody Absen tPerformed at: [facility] Lab[address] [id number] Director: Melquiades Hector MD, Phone: [phone] EBEAG <9.0 U/mL (Normal) Range: 0.0-8.9 Comments: [...] <0.05 NEGATIVE0.06 - 0.59 AT RISK OF WV> OR = 0.60 SUGGEST WV :47 HgA1C , Office (73143) HgA1C , Office 6.3 % (Normal) Range: [...] CHOL 147 mg/dL (Normal) Comments: <200 mg/dL Nrckvbwam414-570 mg/dL Borderline>240 mg/dL High Risk 7-Jpi-380573:55 Rapid Flu (51393 x 2) Comments: neg Influenza A Ag negative (Normal) 9-Vib-901129:02 FECAL OCCULT- Tubes sent home (66051) FECAL OCCULT HGB ASSAY, QUAL, 1-3 negative [...] {IU/mL} (Normal) Range: 0-100 Comments: Performed at: [facility] Lab[address] Director: Melquiades Hector MD, Phone: [phone] IMM 55 mg/dL (Normal) Range: 40-230 DEBBY 182 mg/dL (Normal) Range: 91-414 IMG 788 mg/dL (Normal) Range: 700-1600 :39 LDH 190 U/L (Normal) Comments: Serial Specimen #1, #2 or #3? 1Is Patient Taking Vitamins or Folic Acid Supplements? N Range: 84-246 :39 PROEL Comments: Is Patient Fasting? Y [id number] Comment (Normal) Comments: Protein electrophoresis scan will follow via computer,mail, or fundraising coordinator delivery. tPROELAG 1.6 (Normal) Range: 0.7-2.0 tPROELIN [...] Supplements? N Range: 250-450 :56 CULTURE, SPUTUM (65366) Comments: PATIENT NOT FASTINGPERFORMED BY: [facility]Owsymp9834 [facility] [id number] Information: SRC:[facility] [id number] Result 1 RRF (Normal) Comments: Routine respiratory ashkan Lower Respiratory Culture Final report (Normal) :32 HgA1C , Office (31721) HgA1C , Office 5.9 % (Normal) Range: 4.6 - 7.1 :32 Blood Glucose , Office (97387) Blood Glucose , Office 90 (Normal) :51 [...] 4.6-6.2 WBC 7.2 {k/mm3} (Normal) Range: 4.4-11.0 22-Auo-620180:51 CMP GAP 9 (Normal) Range: 5-15 CO2 [...] CHOL 149 mg/dL (Normal) Comments: <200 mg/dL Ozgkgmbwd822-106 mg/dL Borderline>240 mg/dL High Risk :51 PSA 0.51 ng/mL (Normal) Range: 0.00-4.00 Comments: This test was performed using the TPSA assay method for the[employer] chemistry system. Values obtained with differentassay methods cannot be used interchangably.When changing PSA assays in the course of monitoring apatient, additional sequential testing should be carriedout to confirm baseline values. 47-Qbl-090000:59 MISC (Normal) Comments: TEST RESULT LIMITSAntinuclear Antibodies, [...] 4.6-6.2 WBC 7.8 {k/mm3} (Normal) Range: 4.4-11.0 71-Lwe-099452:32 CMP GAP 10 (Normal) Range: 5-15 CO2 [...] CHOL 154 mg/dL (Normal) Comments: <200 mg/dL Wszdqqmgs004-375 mg/dL Borderline>240 mg/dL High Risk HDL 64 [...] (Normal) UCLAR Clear (Normal) UCOL Yellow (Normal) 28-Jpr-886491:11 AFBCS tAFBC See Note Comments: TESTING PERFORMED AT [facility]. ORIGINAL REPORT ONFILE IN LAB CONTAINS ADDITIONAL TEST SITE INFORMATION. (Normal) CULTURE, ACID FAST FINAL CULTURE REPORT TO FOLLOW IN 6 WEEKS. tAFBSF See Note Comments: TESTING PERFORMED AT [facility]. ORIGINAL REPORT ONFILE IN LAB CONTAINS ADDITIONAL TEST SITE INFORMATION. (Normal) ACID FAST BACILLUS SMEARAcid Fast Smear from Concentrated Specimen :Negative 77-Iin-236233:11 CUFST FUNST See Note Comments: TESTING PERFORMED AT [facility]. ORIGINAL REPORT ONFILE IN LAB CONTAINS ADDITIONAL TEST SITE INFORMATION. (Normal) FUNGUS STAIN No yeast or mold observed. CUF See Note Comments: TESTING PERFORMED AT [facility]. ORIGINAL REPORT ONFILE IN LAB CONTAINS ADDITIONAL TEST SITE INFORMATION. (Normal) CULTURE, FUNGUSNO YEAST OR MOLD ISOLATED AFTER 4 WEEKS. 16-Qrr-157380:11 CUSP RESPC See Note (Normal) Comments: No [...] IN CHAINS AND CLUSTERS1+ GRAM POSITIVE RODS 60-Zyk-514814:23 AFBCS tAFBC See Note Comments: TESTING PERFORMED AT [facility]. ORIGINAL REPORT ONFILE IN LAB CONTAINS ADDITIONAL TEST SITE INFORMATION. (Normal) CULTURE, ACID FAST FINAL CULTURE REPORT TO FOLLOW IN 6 WEEKS. tAFBSF See Note Comments: TESTING PERFORMED AT [facility]. ORIGINAL REPORT ONFILE IN LAB CONTAINS ADDITIONAL TEST SITE INFORMATION. (Normal) ACID FAST BACILLUS SMEARNO ACID-FAST BACILLI OBSERVED ON SMEAR. 98-Lif-051031:23 CUFST FUNST See Note Comments: TESTING PERFORMED AT [facility]. ORIGINAL REPORT ONFILE IN LAB CONTAINS ADDITIONAL TEST SITE INFORMATION. (Normal) FUNGUS STAIN No yeast or mold observed. CUF See Note Comments: TESTING PERFORMED AT [facility]. ORIGINAL REPORT ONFILE IN LAB CONTAINS ADDITIONAL TEST SITE INFORMATION. (Normal) CULTURE, FUNGUSNO YEAST OR MOLD ISOLATED AFTER 4 WEEKS. 07-Ivh-583258:21 AFBCS tAFBC See Note Comments: TESTING PERFORMED AT [facility]. ORIGINAL REPORT ONFILE IN LAB CONTAINS ADDITIONAL TEST SITE INFORMATION. (Normal) CULTURE, ACID FAST FINAL CULTURE REPORT TO FOLLOW IN 6 WEEKS. tAFBSF See Note Comments: TESTING PERFORMED AT [facility]. ORIGINAL REPORT ONFILE IN LAB CONTAINS ADDITIONAL TEST SITE INFORMATION. (Normal) ACID FAST BACILLUS SMEARAcid Fast Smear from Concentrated Specimen :Negative 73-Aoq-928393:21 CUFST FUNST See Note Comments: TESTING PERFORMED [...] ay REPORT -2 (Normal) 39 :0 0 83-Mqk-307526:05 WARREN CULTURE-OTHER (46947) Comments: PATIENT NOT FASTINGPERFORMED BY: [facility] Itdmue2609 [facility] [id number] Information: SRC: THROAT Result 1 RRF (Normal) Comments: Routine respiratory ashkan Upper Respiratory Culture Final report (Normal) 13-Cnl-439601:23 Rapid Strep Test, Office (76323) Rapid Strep Test, Office Negative (Normal) 4-Izr-524649:15 CBCMD RBCM NORM C+C {NORMAL} (Normal) PE [...] 4.6-6.2 WBC 8.3 K/mm3 (Normal) Range: 4.4-11.0 5-Xhq-908020:15 CMP GAP 10 (Normal) Range: 5-15 CO2 [...] 7-18 GLU 81 mg/dL (Normal) Range: 70-110 8-Uxh-840309:15 LIPID VLDL 12 mg/dL (Normal) Range: 5-40 [...] Alvarado M.D.January 27, 2012 at 2:39:03 PM [id number] Signed GP/GP If you are the refe rring physician and would like to consult with theradiologist who provided this interpretation, please contact Itzel Linares at [phone]. If this radiologist is unavailable, youwill be dir ected to another radiologist to assist. If you are a patient with a question regarding this report, pleasecontactyour referring physician directly. Professional Interpretation Provided By: [employer], Phone , These documents contain legally protected [...] documents. Dictated on 01/26/12 1713 by Emperatriz CALVO,Rciascribed on 01/27/12 1443 by ITS IMPORTSign by [...] Schwarz D.O.January 26, 2012 at 8:55:02 PM [id number] Signed BE/B E If you are the referring physician and would like to consult with theradiologist who provided this interpretation, please contact Yogi Schwarz D.O. at [phone]. If this radiologist is unavailable, yo u will bedirected to another radiologist to assist. If you are a patient with a question regarding this report, pleasecontactyour referring physician directly. Professional Interpretation Provided By: [employer], Phone , These documents contain legally protected [...] 01/26/12 2100 Sign by: Yogi Schwarz MD 15-Mft-527996:13 CUSP RESPC See Note (Normal) Comments: No [...] GRAM POSITIVE COCCI IN CHAINS AND CLUSTERS 56-Che-411091:56 HgA1C , Office (69437) HgA1C , Office 6.1 % (Normal) Range: 4.6 - 7.1 :56 Blood Glucose , Office (25946) Blood Glucose , Office 116 (Normal) : [...] 7-18 GLU 107 mg/dL (Normal) Range: 70-110 91-Vld-624501:25 LIPID VLDL 12 mg/dL (Normal) Range: 5-40 [...] performed using the TPSA assay method for the[employer] chemistry system. Values obtained with differentassay methods cannot be used interchangably.When ch anging PSA assays in the course of monitoring apatient, additional sequential testing should be carriedout to confirm baseline values. 97-Eif-756692:25 UAC UMUC 0 SEEN {/hpf} (Normal) UBAC [...] UCOL YELLOW (Normal) :44 HgA1C , Office (61775) HgA1C , Office 6.3 % (Normal) Range: 4.6 - 7.1 :44 Blood Glucose , Office (32054) Blood Glucose , Office 114 (Normal) :13 HgA1C , Office (45603) HgA1C , Office 6.2 % (Normal) Range: 4.6 - 7.1 :13 Blood Glucose , Office (95581) Blood Glucose , Office 100 (Normal) :55 HgA1C , Office (39821) HgA1C , Office 5.8 % (Normal) Range: 4.6 - 7.1 :55 Blood Glucose , Office (59556) Blood Glucose , Office 85 (Normal) :51 WARREN CULTURE-OTHER (34921) Comments: PATIENT NOT FASTINGPERFORMED BY: [facility]6370 [facility] [id number] Information: SRC:THRDaljit [id number] Result 1 Yeast isolated. (Normal) Comments: Heavy growthRequest for further identification must be madewithin 1 week. Upper Respiratory Culture Final report (Normal) :14 Rapid Strep Test, Office (71819) Rapid Strep Test, Office Negative (Normal) :24 [...] serialsampling is recomme nded. TESTING PERFORMED AT [facility]. ORIGINAL REPORT ON FILE IN LAB CONTAINS [...] cells for the productionof interferon gamma.Performed at: [facility] Lab[address] [id number] Director: Joseph Velez MD, Phone: [phone] QFT AG - NIL 0 {IU/mL} (Normal) [...] of Hgb A1C has changed to SIEMENS AdwingsTANo significant changes in patient results are expected. [...] >240 mg/dL High Risk :03 VIT D,25 57763 38.0 ng/mL (Normal) Comments: appt 03-08-10 Range: 32.0-100.0 Comments: Effective January 11, 2011 Vitamin D, 25-Hydroxy reference intervals will be changing to 30-100. .Recent studies consider the lower li chilo of 32.0 ng/mL to be athreshold for optimal health.Mark LUDWIG. J Nutr. 2004;135(2):317-22.Performed at: - Lab[address] Director: Lakshmi Pino MD, Phone: [phone] VITAMIN B12 696 pg/mL (Normal) Range: 254-1320 Comments: There is a low frequency possibility that high titers ofintrinsic blocking antibodies may not be completely inactivated during the reaction pretreatment stepof this testing method. If test results are i n conflictwith the clinical diagnosis, patient should be testedfor the presence of intrinsic factor blocking antibodies. 85-Kyf-567567:05 Rapid Strep Test, Office (53175) Rapid Strep Test, Office Negative (Normal) :00 CULTURE, THROAT See Note (Normal) Comments: Normal throat ashkan isolated. No beta-hemolyticstreptococcus isolated. 51-Xjy-99262:00 CHEST WITHOUT CONTRAST Radiology Report See Note [...] 10/11/10 0244 Sign by: Clarke Butt MD 42-Bhh-244003:58 GALLBLADDER Radiology Report See Note (Normal) Comments: [...] 10/08/10 1402 Sign by: Christiano CALVO Rakesh 35-Buo-86039:00 CULTURE, URINE URINE CULTURE See Note {CFU/mL} (Normal) Comments: COLONY COUNT <1000 ORGANISM 1: MIXED GRAM POSITIVE ORGANISMS 33-Fvd-933118:19 Urinalysis, Office (16274) UA - BILIRUBIN Negative (Normal) UA - BLOOD Non Hemolyzed Trace (Normal) UA - GLUCOSE Negative (Normal) UA - KETONES Negative mg/dL (Normal) UA - LEUKOCYTE ESTERASE Negative (Normal) UA - NITRITE Negative (Normal) UA - PH 7.0 (Normal) UA - PROTEIN Negative mg/dL (Normal) UA - SPECIFIC GRAVITY 1.010 (Normal) URINE UROBILINGN MASSIEL TIMED Normal mg/dL (Normal) 74-Sor-51822:00 ABDOMEN/PELVIS WITHOUT CONT Radiology Report See Note [...] on 09/16/101715 Sign by: Cosmo Mahmood MD 82-Mmh-520689:11 HgA1C , Office (99544) HgA1C , Office 6.2 % (Normal) Range: 4.6 - 7.1 :11 Blood Glucose , Office (89736) Blood Glucose , Office 90 (Normal) :28 [...] 4.6-6.2 WBC 6.8 K/mm3 (Normal) Range: 4.4-11.0 08-Cdd-02777:28 COMP METABOLIC GAP 5 (Normal) Range: 5-15 [...] mg/dL High Risk :53 HgA1C , Office (51952) HgA1C , Office 6.4 % (Normal) Range: 4.6 - 7.1 :53 Blood Glucose , Office (09789) Blood Glucose , Office 108 (Normal) :39 CULTURE, URINE URINE CULTURE Culture exhibits no growth. (Normal) :54 Urinalysis, Office (48359) UA - BILIRUBIN Negative (Normal) UA - BLOOD Negative (Normal) UA - GLUCOSE Negative (Normal) UA - KETONES Negative mg/dL (Normal) UA - LEUKOCYTE ESTERASE Negative (Normal) UA - NITRITE Negative (Normal) UA - PH 7.0 (Normal) UA - PROTEIN Negative mg/dL (Normal) UA - SPECIFIC GRAVITY 1.010 (Normal) URINE UROBILINGN MASSIEL TIMED Normal mg/dL (Normal) :37 HgA1C , Office (92072) HgA1C , Office 6.1 % (Normal) Range: 4.6 - 7.1 :37 Blood Glucose , Office (61726) Blood Glucose , Office 96 (Normal) :46 [...] 4.6-6.2 WBC 7.5 K/mm3 (Normal) Range: 4.4-11.0 30-Jxz-685159:46 COMP METABOLIC GAP 7 (Normal) Range: 5-15 [...] (Normal) Range: 0.0-4.0 :22 HgA1C , Office (25563) HgA1C , Office 6.1 % (Normal) Range: 4.6 - 7.1 :22 Blood Glucose , Office (72587) Blood Glucose , Office 123 (Normal) :47 HgA1C , Office (18658) HgA1C , Office 6.3 % (Normal) Range: 4.6 - 7.1 :47 Blood Glucose , Office (12619) Blood Glucose , Office 103 (Normal) :05 [...] (Normal) GLU 107 mg/dL (Normal) Range: 70-110 13-Map-94907:05 LIPID HDL 58 mg/dL (Normal) Comments: Reference RangeHDL <40 mg/dL Low HDL CholesterolHDL >or= 60 mg/dL High HDL Cholesterol LDL 77 mg/dL (Normal) Range: 0-130 VLDL 7 mg/dL (Normal) Range: 5-40 CHOL 142 mg/dL (Normal) Comments: <200 mg/dL Vckeznvum339-476 mg/dL Borderline>240 mg/dL High Risk TRIG 35 mg/dL (Normal) Comments: Serum Triglycerides Reference IntervalNormal <150 mg/dLBorderline high 150 - 199 mg/dLHigh 200 - 499 mg/ dLVery High > or = 500 mg/dL 0-Oyb-919026:24 HgA1C , Office (01194) HgA1C , Office 6.2 % (Normal) Range: 4.6 - 7.1 0-Irg-792420:23 Blood Glucose , Office (53536) Blood Glucose , Office 96 (Normal) 37-Ybo-320434:07 GASTRIC EMPTYING STUDY Radiology Report See Note (Normal) Comments: Exam Number: [id number] GASTRIC EMPTYING STUDY A gastric emptying study was performed. The patient ingested 1 mCi qlHo50t Sulfur colloid with oatmeal. HISTORYThis is a 58-year-old male patie nt with hist ory of bloating andgastroesophageal reflux. FINDINGSAt 1 hour, there is complete emptying of the stomach of theradiopharmaceutical. This is a normal study. IMPRESSIONNormal examination. There is no e vidence of gastric retention. Reported By: WILFREDO ALVARADO :33 HgA1C , Office (09438) HgA1C , Office 5.9 % (Normal) Range: 4.6 - 7.1 :33 Blood Glucose , Office (79681) Blood Glucose , Office 111 (Normal) :08 [...] Range: 0.0-4.0 :46 Blood Glucose , Office (35257) Blood Glucose , Office 156 (Normal) :46 HgA1C , Office (85657) HgA1C , Office 5.8 % (Normal) Range: 4.6 - 7.1 :12 HgA1C , Office (30509) Comments: done HgA1C , Office 5.8 % (Normal) Range: 4.6 - 7.1 :12 Blood Glucose , Office (10078) Comments: done Blood Glucose , Office 99 [...] mg/dL (Normal) Range: 200-370 Comments: Performed At: [address] [id number] :[id number] Blood Glucose , Office (88383) Blood Glucose , Office 92 (Normal) :44 HgA1C , Office (48775) HgA1C , Office 5.7 % (Normal) Range: 4.6 - 7.1 :40 GLU GTT-2 HOUR 191 mg/dL (Abnormal) Comments: 2HR GTT GLU 2 HR GLU GTT-2 HOUR from 216:[id number]. Range: 70-120 :20 GLU GTT-1 HOUR 178 mg/dL (Abnormal) Comments: 2HR GTT GLU 1 HR GLU GTT-1 HOUR from 216:[id number]. Range: 120-170 :40 GLU GTT-30 min. 183 mg/dL (Abnormal) Comments: 2HR GTT GLU 1/2 HR GLU GTT-30 min. from 216:J47376G. Range: 110-170 :01 GLU GTT-FASTING 106 mg/dL (Normal) Comments: 2HR GTT FASTING GLU GTT-FASTING from 216:H07020H. Range: 70-110 Comments: GLUCOSE TOLERANCE TEST Reference [...] was performed using the TPSA method for the[place] chemistry system.Values obtained with different assay methods [...] :12 TSH 1.38 {uIU/mL} (Normal) Range: 0.34-4.82 86-Xiq-44550:03 CHEST WITH CONTRAST Radiology Report See Note (Normal) Comments: Exam Number: [id number] CHEST CT WITH INTRAVENOUS CONTRAST. REASON FOR [...] No growth in 5 6:14 days. (Normal) 6-Ptk-814341:14 CBCD,SMEAR DIFF BAND 1 % (Normal) Range: [...] 47-70 WBC 5.6 K/mm3 (Normal) Range: 4.4-11.0 2-Vdw-331934:14 COMP METABOLIC A/G 1.2 {RATIO} (Normal) Range: [...] T PROT 6.3 g/dL (Abnormal) Range: 6.4-8.2 44-Ixp-352177:19 EBVIgG/M 232167 EB-EA IgG 07482 79 AU/mL (Normal) Range: 0-99 Comments: Negative <100 Equivocal 100 - 120 Positive >120 EB-NAg [id number] 656 AU/mL (Abnormal) Range: 0-99 Comments: Negative <100 Equivocal 100 - 120 Positive >120 EB-VCA [id number] 2296 AU/mL (Abnormal) Range: 0-99 Comments: Negative <100 Equivocal 100 - 120 Positive >120 EB-VCA [id number] 9 AU/mL (Normal) Range: 0-99 Comments: Negative [...] Antibody Present - Antibody AbsentPerformed At: [facility] [address] [place], [place] [id number] 99-Iln-011547:00 CULTURE, THROAT See Note (Normal) Comments: Normal throat ashkan isolated. No beta-hemolyticstreptococcus isolated. 40-Zxe-843818:35 Rapid Strep Test, Office (50824) Rapid Strep Test, Office Negative (Normal) :40 [...] SJ:rin 11/09/06 TC:5 REPORT SIGNED: PAMELLA SON 11/10/0607-Nov-200620-Bxs-615864:55 ALDOLASE 2030 2.3 U/L (Normal) Range: 1.2-7.6 Comments: Performed At: [facility] [place], [place] [id number] At: [facility] [id number] 06-Ull-081582:55 JOHN-D [id number] JOHN-DIRECT 9 U/mL (Normal) Range: 0-99 Comments: [...] 4.9 {IU/mL} (Normal) Range: 0.0-13.9 :55 TESTOST [id number] TESTOSTER %FREE 2.87 % (Normal) Range: 1.50-4.20 [...] Report See Note (Normal) Comments: Exam Number: [id number] TESTICULAR ULTRASOUND HISTORYTesticular swelling. High resolution real [...] Reported By: MAYELIN DE LA FUENTE M.D. 3-Sbl-664659:45 HIP, MIN 2 VIEWS Radiology Report See Note (Normal) Comments: Exam Number: [id number] FIVE VIEW LUMBAR SPINE AP, LATERAL, BOTH [...] Report See Note (Normal) Comments: Exam Number: [id number] FIVE VIEW LUMBAR SPINE AP, LATERAL, BOTH [...] Report See Note (Normal) Comments: Exam Number: [id number] FIVE VIEW LUMBAR SPINE AP, LATERAL, BOTH [...] degenerative changes. Reported By: REMIGIO PURCELL M.D. 01-Fcz-047790:43 CHEST, PA AND LATERAL Radiology Report See Note (Normal) Comments: Exam Number: [id number] PA AND LATERAL CHEST HISTORYShortness of breath. [...] 15, 2005. Reported By: EDVIN MARIE M.D. 85-Oho-660252:25 ALDOLASE 2030 3.0 U/L (Normal) Range: 1.2-7.6 Comments: Performed At: [address] [id number] 12-Kvj-882424:25 JOHN-D [id number] JOHN-DIRECT 46 U/mL (Normal) Range: 0-99 Comments: Negative <100 Equivocal 100 - 120 Positive >120 :25 C-REACTIVE PROT 1.07 mg/L (Normal) Range: 0.0-6.0 Comments: Test performed using the Dimension C-Reactive ProteinExtended Range assay method. This assay meets the AHA/CDC 2003 recommendations fordetermining patients at high risk for cardiovasculardisease. Reference: High risk CRP >3.0 mg/L 85-Gbh-153921:25 CBCD BASO% 0.4 % (Normal) Range: 0-1 [...] CPK TOTAL 172 U/L (Normal) Range: 35-232 68-Mxn-595524:25 ESR SED RATE 13 mm/h (Normal) Range: [...] morphology Planned Observations CBC W/AUTO DIFF WBC (43188)Indication: Hypertension, benign On: 41-Lbf-15338:51 Request METABOLIC PANEL, COMPREHENSIVE (94345)Indication: Hypertension, benign On: 33-Smb-55554:51 Request LIPID PANEL (83522)Indication: Other hyperlipidemia On: :50 Request CULTURE,FUNGUS W/STAIN 062980 (10997)Indication: Bronchiectasis On: :59 Request CULTURE, SPUTUM (53756)Indication: Moderate persistent asthma without complication On: :21 Request HGB A1C (62753)Indication: Abnormal glucose tolerance test On: :10 Request CBC with auto diff (62122)Indication: Abnormal glucose tolerance test On: :10 Request METABOLIC PANEL, COMPREHENSIVE (74522)Indication: Abnormal glucose tolerance test On: : Request LIPID PANEL (64554)Indication: Other hyperlipidemia On: : Request PSA (PROSTATE SPECIFIC ANTIGEN) (V76.44)Indication: Encounter for screening for malignant neoplasm of prostate (Renamed from Screening for prostate cancer) On: :09 Request METABOLIC PANEL, COMPREHENSIVE (55604)Indication: Essential hypertension On: 3-Zzp-121472:58 Request CBC with auto diff (52237)Indication: Hypertension, benign On: :53 Request METABOLIC PANEL, COMPREHENSIVE (88236)Indication: Abnormal glucose tolerance test On: :52 Request MICROALBUMIN: CREATININE RATIO (98380) AND (38483)Indication: Abnormal glucose tolerance test On: :52 Request HGB A1C (33372)Indication: Abnormal glucose tolerance test On: :52 Request LIPID PANEL (16760)Indication: Other hyperlipidemia On: :52 Request LIPID PANEL (31268)Indication: Other hyperlipidemia On: 3-Rkh-915544:30 Request CBC W/AUTO DIFF WBC (29956)Indication: Hypertension, benign On: :29 Request METABOLIC PANEL, COMPREHENSIVE (15916)Indication: Hypertension, benign On: 3-Lub-834822:29 Request IMMUNOGLOBULIN G (IgG) (52092)Indication: Abnormal blood chemistry On: 78-Rzt-196030:02 Request Comments: PLEASE DRAW WITH OTHER LABS IN 2016 serum free light chains (77350)Indication: Abnormal blood chemistry On: :40 Request serum immunofixation (68401)Indication: Abnormal blood chemistry On: Request PSA (PROSTATE SPECIFIC ANTIGEN) (V76.44)Indication: Encounter for screening for malignant neoplasm of prostate (Renamed from Screening for prostate cancer) On: 40 Request LIPID PANEL (76416)Indication: Other hyperlipidemia On: Request CBC with auto diff (73266)Indication: Abnormal glucose tolerance test On: 39 Request METABOLIC PANEL, COMPREHENSIVE (64782)Indication: Abnormal glucose tolerance test On: Request MICROALBUMIN: CREATININE RATIO (43613) AND (11326)Indication: Abnormal glucose tolerance test On: 39 Request HGB A1C (46769)Indication: Abnormal glucose tolerance test On: Request LIPID PANEL (95879)Indication: Other hyperlipidemia On: :58 Request urine immunofixation (45304)Indication: Abnormal blood chemistry On: :34 Request serum immunofixation (34361)Indication: Abnormal blood chemistry On: :34 Request MICROALBUMIN: CREATININE RATIO (75936) AND (80528)Indication: Abnormal glucose tolerance test On: :32 Request HGB A1C (01104)Indication: Abnormal glucose tolerance test On: :32 Request CBC W/AUTO DIFF WBC (91155)Indication: Hypertension, benign On: :30 Request METABOLIC PANEL, COMPREHENSIVE (88545)Indication: Hypertension, benign On: :30 Request LIPID PANEL (69349)Indication: Other hyperlipidemia On: :30 Request LIPOPROTEIN, BLD, BY NMR (80460)Indication: Other hyperlipidemia On: :14 Request CBC WITH MANUAL DIFF (61811)Indication: Essential hypertension On: 56-Ghc-199505:14 Request Metabolic Panel, Comprehensive (43057)Indication: Essential hypertension On: 82-Jmf-470084:14 Request CBC W/AUTO DIFF WBC (19861)Indication: Abnormal glucose tolerance test On: Request LIPOPROTEIN, BLD, BY NMR (80047)Indication: Other hyperlipidemia On: Request METABOLIC PANEL, COMPREHENSIVE (79133)Indication: Abnormal glucose tolerance test On: : Request Anti-TPO Antibody (51445)Indication: Abnormal blood chemistry On: Request T4, FREE (THYROXINE) (19129)Indication: Abnormal blood chemistry On: Request T3, FREE (TRIDOTHYRONINE) (85631)Indication: Abnormal blood chemistry On: Request TSH (46953)Indication: Abnormal blood chemistry On: Request P-ANCA & C-ANCA (ANCA PROFILE) 12051 x2 and 63847 x4Lyckaejxvj: Acute recurrent maxillary sinusitis On: Request JOHN (ANTINUCLEAR ANTIBODY) (72006)Indication: Abnormal blood chemistry On: Request RHEUMATOID FACTOR-QUANT (39964)Indication: Abnormal blood chemistry On: Request SED RATE ERYTHROCYTE (11745)Indication: Abnormal blood chemistry On: Request C-REACTIVE PROTEIN (70606)Indication: Abnormal blood chemistry On: Request CBC with auto diff (53077)Indication: Hypertension, benign On: : Request MICROALBUMIN: CREATININE RATIO (43779) AND (58510)Indication: Abnormal glucose tolerance test On: Request METABOLIC PANEL, COMPREHENSIVE (85650)Indication: Abnormal glucose tolerance test On: : Request HGB A1C (86318)Indication: Abnormal glucose tolerance test On: Request METABOLIC PANEL, COMPREHENSIVE (90550)Indication: Hypertension, benign On: Request LIPID PANEL (80015)Indication: Other hyperlipidemia On: Request PSA (PROSTATE SPECIFIC ANTIGEN) (V76.44)Indication: Encounter for screening for malignant neoplasm of prostate (Renamed from Screening for prostate cancer) On: 35-Aea-914253:59 Request Factor 2 (Prothrombin) Gene Mutation (33212)Indication: Other symptoms involving cardiovascular system On: 6-Iaf-007769:13 Request MICROALBUMIN: CREATININE RATIO (15810) AND (65681)Indication: Abnormal glucose tolerance test On: :53 Request HGB A1C (38695)Indication: Abnormal glucose tolerance test On: :53 Request LIPID PANEL (33102)Indication: Other hyperlipidemia On: :53 Request CBC W/AUTO DIFF WBC (96936)Indication: Hypertension, benign On: :53 Request METABOLIC PANEL, COMPREHENSIVE (07142)Indication: Hypertension, benign On: :53 Request CBC with auto diff (99285)Indication: Hypertension, benign On: 9-Ytk-985054:25 Request METABOLIC PANEL, COMPREHENSIVE (29692)Indication: Hypertension, benign On: :25 Request LIPID PANEL (78898)Indication: Other hyperlipidemia On: 4-Odb-482642:25 Request Factor V Leiden (20816)Indication: Deep vein thrombosis of lower extremity On: 51-Jyq-759781:24 Request CLOTTING FACTOR II (59224)Indication: Deep vein thrombosis of lower extremity On: 72-Zqw-814734:24 Request ANTITHROMBIN III ACTIVTY (72355)Indication: Deep vein thrombosis of lower extremity On: 34-Pcf-379862:24 Request Antiphospholipid atb (73178)Indication: Deep vein thrombosis of lower extremity On: 45-Vks-127128:24 Request Protein C Profile (76794)Indication: Deep vein thrombosis of lower extremity On: 92-Jkd-299891:24 Request Protein S Profile (62429)Indication: Deep vein thrombosis of lower extremity On: 25-Utq-313897:24 Request Hemoglobin Glyclated (HGB A1C) (14354)Indication: Abnormal glucose tolerance test On: 06-Evw-082285:23 Request CBC W/AUTO DIFF WBC (30355)Indication: Abnormal glucose tolerance test On: :43 Request MICROALBUMIN: CREATININE RATIO (80304) AND (36990)Indication: Abnormal glucose tolerance test On: :43 Request METABOLIC PANEL, COMPREHENSIVE (59273)Indication: Abnormal glucose tolerance test On: :43 Request LIPID PANEL (95203)Indication: Other hyperlipidemia On: :43 Request DNA ANTIBODY-NATV/DBL ST (49854)Indication: Heart disease, unspecified On: 58-Ccm-771997:02 Request METABOLIC PANEL, COMPREHENSIVE (14950)Indication: Essential hypertension On: 11-Edw-048610:31 Request LIPID PANEL (17285)Indication: Other hyperlipidemia On: 89-Yim-001974:31 Request Hemoglobin Glyclated (HGB A1C) (08416)Indication: Abnormal glucose tolerance test On: 38-Osx-058293:31 Request PSA (PROSTATE SPECIFIC ANTIGEN) (V76.44)Indication: Benign prostatic hyperplasia with lower urinary tract symptoms, unspecified morphology On: 95-Bve-072835:52 Request MICROALBUMIN: CREATININE RATIO (66297) AND (16987)Indication: Abnormal glucose tolerance test On: :50 Request Hemoglobin Glyclated (HGB A1C) (11095)Indication: Abnormal glucose tolerance test On: 20-Qbp-456207:50 Request URINE WARREN CULTURE (MASSIEL COL COUNT) (33812)Indication: Muscle weakness On: :48 Request URINALYSIS, W/ MICRO (87287)Indication: Muscle weakness On: :48 Request CBC with auto diff (00282)Indication: Muscle weakness On: :48 Request JOHN (ANTINUCLEAR ANTIBODY) (64379)Indication: Muscle weakness On: :48 Request SED RATE ERYTHROCYTE (74175)Indication: Muscle weakness On: :48 Request C-REACTIVE PROTEIN (44920)Indication: Muscle weakness On: :48 Request TSH (76902)Indication: Muscle weakness On: :48 Request LIPID PANEL (57686)Indication: Other hyperlipidemia On: 09-Iks-279543:47 Request METABOLIC PANEL, COMPREHENSIVE (97980)Indication: Other hyperlipidemia On: 13-Rnb-380459:46 Request URINE WARREN CULTURE-MASSIEL COL COUNT (50518)Indication: Other abnormal finding of urine On: :42 Request LIPID PANEL (32888)Indication: Other hyperlipidemia On: :44 Request CBC W/AUTO DIFF WBC (44161)Indication: Essential hypertension On: :44 Request METABOLIC PANEL, COMPREHENSIVE (87687)Indication: Essential hypertension On: :44 Request URINE WARREN CULTURE-MASSIEL COL COUNT (30434)Indication: Other abnormal finding of urine On: 0-Dds-344240:00 Request Comments: ADD ON MICROALBUMIN: CREATININE RATIO (11526) AND (93133)Indication: Essential hypertension On: : Request URINALYSIS, W/ MICRO (35502)Indication: Essential hypertension On: : Request METABOLIC PANEL, COMPREHENSIVE (67279)Indication: Essential hypertension On: :02 Request LIPID PANEL (02672)Indication: Other hyperlipidemia On: : Request CBC WITH MANUAL DIFF (63750)Indication: Iron deficiency On: : Request URINE WARREN CULTURE (MASSIEL COL COUNT) (14462)Indication: Fatigue On: 15-Dfi-032790:46 Request MICROALBUMIN: CREATININE RATIO (71336) AND (67643)Indication: Abnormal glucose tolerance test On: 23-Raq-267589:46 Request Hemoglobin Glyclated (HGB A1C) (35426)Indication: Abnormal glucose tolerance test On: 00-Jzf-593830:46 Request IRON BINDING CAPACITY (TIBC) (28807)Indication: Anemia, unspecified On: 69-Cdn-231875:42 Request FERRITIN (52966)Indication: Anemia, unspecified On: 97-Wdb-045953:42 Request IRON (58982)Indication: Anemia, unspecified On: 15-Yeo-629491:42 Request VITAMIN B-12 (CYANOCOBALAMIN) (89686)Indication: Fatigue On: :42 Request CBC (AUTO) (15215)Indication: Fatigue On: :42 Request TSH (15428)Indication: Fatigue On: :42 Request Vitamin D Hydroxy (19695)Indication: Fatigue On: :42 Request EBV Panel (82093)Indication: Fatigue On: 10-Uov-871103:42 Request FERRITIN (74092)Indication: Anemia, unspecified On: : Request IRON (00294)Indication: Anemia, unspecified On: : Request MICROALBUMIN: CREATININE RATIO (12834) AND (74103)Indication: Abnormal glucose tolerance test On: : Request METABOLIC PANEL, COMPREHENSIVE (42188)Indication: Abnormal glucose tolerance test On: : Request LIPID PANEL (43717)Indication: Other hyperlipidemia On: : Request CBC WITH MANUAL DIFF (69191)Indication: Anemia, unspecified On: : Request FERRITIN (54125)Indication: Anemia, unspecified On: 1-Bam-245066:15 Request IRON (74147)Indication: Anemia, unspecified On: :14 Request LIPID PANEL (52871)Indication: Essential hypertension On: : Request METABOLIC PANEL, COMPREHENSIVE (95695)Indication: Essential hypertension On: :14 Request CBC WITH MANUAL DIFF (09856)Indication: Essential hypertension On: :14 Request UPEP (16007)Indication: BRONCHITIS, NOT SPECIFIED ACUTE OR CHRONIC (490.) On: Request Protein Electrophoresis, Serum (SPEP) (65938)Indication: BRONCHITIS, NOT SPECIFIED ACUTE OR CHRONIC (490.) On: Request IGA/IGD/IGG/IGM-EACH (27842)Indication: BRONCHITIS, NOT SPECIFIED ACUTE OR CHRONIC (490.) On: Request URINALYSIS, W/ MICRO (67839)Indication: Anemia, unspecified On: : Request CBC WITH MANUAL DIFF (96037)Indication: Anemia, unspecified On: Request FOLIC ACID SERUM (27181)Indication: Anemia, unspecified On: : Request VITAMIN B-12 (CYANOCOBALAMIN) (25820)Indication: Anemia, unspecified On: Request RETICULOCYTE COUNT MANUL (26428)Indication: Anemia, unspecified On: Request LDH (LD) (LACTATE DEHYDROGENASE) (75566)Indication: Anemia, unspecified On: Request IRON BINDING CAPACITY (TIBC) (62737)Indication: Anemia, unspecified On: : Request IRON (50704)Indication: Anemia, unspecified On: Request FERRITIN (78086)Indication: Anemia, unspecified On: Request PSA (PROSTATE SPECIFIC ANTIGEN) (V76.44)Indication: Screening for prostate cancer On: :36 Request LIPID PANEL (89869)Indication: Abnormal glucose tolerance test On: Request CBC WITH MANUAL DIFF (20632)Indication: Hypertension, benign On: Request METABOLIC PANEL, COMPREHENSIVE (31368)Indication: Hypertension, benign On: Request SED RATE ERYTHROCYTE (97636)Indication: Rash On: : Request C-REACTIVE PROTEIN (50740)Indication: Rash On: : Request RHEUMATOID FACTOR-QUANT (50651)Indication: Rash On: Request JOHN (ANTINUCLEAR ANTIBODY) (20837)Indication: Rash On: :22 Request CULTURE, SPUTUM (12954)Indication: Cough On: 68-Xjp-369505:20 Request HgA1C , Office (35916)Indication: Abnormal glucose tolerance test On: 22-Jjc-052616:57 Request CULTURE, SPUTUM (94939)Indication: Cough On: 92-Ibf-793435:39 Request ACID FAST STAIN (AFB) (25542)Indication: Cough On: 14-Hkx-870521:38 Request TSH (56620)Indication: Other hyperlipidemia On: :21 Request URINALYSIS, W/ MICRO (01107)Indication: Essential hypertension On: :21 Request CBC WITH MANUAL DIFF (09263)Indication: Abnormal glucose tolerance test On: : Request METABOLIC PANEL, COMPREHENSIVE (28930)Indication: Abnormal glucose tolerance test On: :21 Request MICROALBUMIN: CREATININE RATIO (48882) AND (53435)Indication: Abnormal glucose tolerance test On: :21 Request LIPID PANEL (78648)Indication: Other hyperlipidemia On: :20 Request CBC WITH MANUAL DIFF (71341)Indication: Abnormal glucose tolerance test On: 10-Cde-899894:26 Request METABOLIC PANEL, COMPREHENSIVE (54635)Indication: Abnormal glucose tolerance test On: 97-Dlq-160605:26 Request CULTURE, SPUTUM (62091)Indication: Cough On: 73-Cat-805495:18 Request LIPID PANEL (13324)Indication: Other hyperlipidemia On: 95-Odx-655376:14 Request TSH (44825)Indication: Swelling of limb On: :58 Request METABOLIC PANEL, COMPREHENSIVE (63572)Indication: Swelling of limb On: 47-Fpn-92344:58 Request CBC WITH MANUAL DIFF (34813)Indication: Swelling of limb On: :58 Request BNTP (77508)Indication: Swelling of limb On: :58 Request CULTURE, SPUTUM (64686)Indication: Cough On: 55-Zmk-51033:56 Request PSA (PROSTATE SPECIFIC ANTIGEN) (V76.44)Indication: Screening for prostate cancer On: 18-Rmh-080809:19 Request URINALYSIS, W/ MICRO (46427)Indication: Abnormal glucose tolerance test On: 48-Hxz-220852:18 Request MICROALBUMIN: CREATININE RATIO (28067) AND (82899)Indication: Abnormal glucose tolerance test On: 67-Pkf-501709:18 Request METABOLIC PANEL, COMPREHENSIVE (67829)Indication: Essential hypertension On: 57-Gge-751179:18 Request LIPID PANEL (65035)Indication: Other hyperlipidemia On: 45-Ndj-806234:18 Request PSA (PROSTATE SPECIFIC ANTIGEN) (V76.44)Indication: Screening for prostate cancer On: :40 Request MICROALBUMIN: CREATININE RATIO (37554) AND (36674)Indication: Abnormal glucose tolerance test On: :40 Request METABOLIC PANEL, COMPREHENSIVE (74264)Indication: Abnormal glucose tolerance test On: :40 Request Urine Protein Electrophoresis (UPEP) (81118)Indication: recurrent uri On: :39 Request Serum Protein Electrophoresis (SPEP) (55421)Indication: recurrent uri On: 36-Sbe-475132:39 Request IMMUNOGLOBULIN E (IgE) (07505)Indication: Asthma, intrinsic, with status asthmaticus On: 27-Ldy-394958:39 Request IGA/IGD/IGG/IGM-EACH (38916)Indication: Asthma, intrinsic, with status asthmaticus On: 22-Kzx-246232:39 Request LIPID PANEL (61441)Indication: Other hyperlipidemia On: 91-Gqa-915315:38 Request ASPERGILLUS AG, EIA (14933)Indication: Cough On: :58 Request SED RATE ERYTHROCYTE (67964)Indication: Cough On: :48 Request C-REACTIVE PROTEIN (37383)Indication: Cough On: :48 Request CBC WITH MANUAL DIFF (68230)Indication: Cough On: :47 Request Quantiferron gold test (81090)Indication: Cough On: :45 Request CULTURE, SPUTUM (70670)Indication: Cough On: 33-Rrl-865544:45 Request VITAMIN B-12 (CYANOCOBALAMIN) (19421)Indication: Fatigue On: :20 Request Vitamin D Hydroxy (36961)Indication: Fatigue On: 25-Hys-909227:20 Request CBC WITH MANUAL DIFF (39190)Indication: Abnormal glucose tolerance test On: :19 Request METABOLIC PANEL, COMPREHENSIVE (17426)Indication: Abnormal glucose tolerance test On: :19 Request LIPID PANEL (72902)Indication: Other hyperlipidemia On: :19 Request URINALYSIS, W/ MICRO (35568)Indication: Abnormal glucose tolerance test On: :19 Request HEMOGLOBIN GLYCLATED (HGB A1C) (24164)Indication: Abnormal glucose tolerance test On: :19 Request WARREN CULTURE-OTHER ([id number])Indication: Pharyngitis, acute On: 98-Okw-096033:05 Request URINE WARREN CULTURE-MASSIEL COL COUNT ([id number])Indication: Abdominal pain, acute, right lower quadrant On: :19 Request CBC WITH MANUAL DIFF ([id number])Indication: Abnormal glucose tolerance test On: :08 Request METABOLIC PANEL, COMPREHENSIVE ([id number])Indication: Abnormal glucose tolerance test On: :08 Request TSH ([id number])Indication: Fatigue On: :02 Request CBC WITH MANUAL DIFF ([id number])Indication: Abnormal glucose tolerance test On: :45 Request METABOLIC PANEL, COMPREHENSIVE ([id number])Indication: Hypertension, benign On: :45 Request LIPID PANEL ([id number])Indication: Other hyperlipidemia On: :45 Request METABOLIC PANEL, COMPREHENSIVE ([id number])Indication: Essential hypertension On: :16 Request LIPID PANEL ([id number])Indication: Other hyperlipidemia On: :15 Request URINE WARREN CULTURE-MASSIEL COL COUNT ([id number])Indication: Calcium kidney stone On: :54 Request PSA (PROSTATE SPECIFIC ANTIGEN) (V76.44)Indication: Enlarged prostate with lower urinary tract symptoms On: :09 Request METABOLIC PANEL, COMPREHENSIVE ([id number])Indication: Abnormal glucose tolerance test On: :09 Request CBC WITH MANUAL DIFF ([id number])Indication: Abnormal glucose tolerance test On: :09 Request LIPID PANEL ([id number])Indication: Other hyperlipidemia On: 55-Ckv-223037:09 Request MICROALBUMIN: CREATININE RATIO ([id number]) AND ([id number])Indication: Abnormal glucose tolerance test On: :09 Request LIPID PANEL ([id number])Indication: Other hyperlipidemia On: : Request CBC WITH MANUAL DIFF ([id number])Indication: Abnormal glucose tolerance test On: : Request METABOLIC PANEL, COMPREHENSIVE ([id number])Indication: Abnormal glucose tolerance test On: :30 Request MICROALBUMIN: CREATININE RATIO ([id number]) AND ([id number])Indication: Abnormal glucose tolerance test On: :28 Request METABOLIC PANEL, COMPREHENSIVE ([id number])Indication: Abnormal glucose tolerance test On: : Request LIPID PANEL ([id number])Indication: Other hyperlipidemia On: 6-Jxr-912774:07 Request PSA (PROSTATE SPECIFIC ANTIGEN) (V76.44)Indication: Enlarged prostate with lower urinary tract symptoms On: 1-Acl-912153:49 Request METABOLIC PANEL, COMPREHENSIVE ([id number])Indication: Essential hypertension On: 9-Bwm-286005:48 Request LIPID PANEL ([id number])Indication: Other hyperlipidemia On: :48 Request HEPATIC FUNCTION PANEL ([id number])Indication: Other hyperlipidemia On: :21 Request LIPID PANEL ([id number])Indication: Other hyperlipidemia On: 34-Ytl-944495:21 Request CBC WITH MANUAL DIFF ([id number])Indication: Abnormal glucose tolerance test On: :53 Request METABOLIC PANEL, COMPREHENSIVE ([id number])Indication: Abnormal glucose tolerance test On: :53 Request MICROALBUMIN: CREATININE RATIO ([id number]) AND ([id number])Indication: Abnormal glucose tolerance test On: :53 Request HEPATIC FUNCTION PANEL ([id number])Indication: Other hyperlipidemia On: :53 Request LIPID PANEL ([id number])Indication: Other hyperlipidemia On: 9-Gkn-710359:53 Request GLUCOSE TOLERANCE TEST (GTT) 2 hour On: 8-Yhd-793064:36 Request (10706) TSH ([id number])Indication: Dizziness and giddiness On: 06-Kur-233310:15 Request LIPID PANEL ([id number])Indication: Other hyperlipidemia On: 92-Dxc-564818:15 Request CBC WITH MANUAL DIFF ([id number])Indication: Dizziness and giddiness On: 01-Zei-463160:15 Request METABOLIC PANEL, COMPREHENSIVE ([id number])Indication: Dizziness and giddiness On: 98-Yfj-873240:15 Request HEPATIC FUNCTION PANEL ([id number])Indication: Other hyperlipidemia On: 87-Dgw-489160:39 Request LIPID PANEL ([id number])Indication: Other hyperlipidemia On: 48-Dzw-176329:39 Request HEPATIC FUNCTION PANEL ([id number])Indication: Other hyperlipidemia On: 82-Gpg-470459:31 Request LIPID PANEL (53354)Indication: Other hyperlipidemia On: 43-Vht-565557:31 Request WARREN CULTURE-BLOOD ([id number])Indication: fever On: 1-Nhg-924461:58 Request METABOLIC PANEL, COMPREHENSIVE (67589)Indication: fever On: 6-Ujs-401358:58 Request CBC WITH MANUAL DIFF ([id number])Indication: fever On: :58 Request WARREN CULTURE-OTHER ([id number])Indication: Pharyngitis, acute On: :35 Request PSA (Prostate Specific Antigen), Screening (19212)Indication: Other hyperlipidemia On: :32 Request LIPID PANEL ([id number])Indication: Other hyperlipidemia On: :31 Request URINALYSIS W/O MICRO ([id number])Indication: Hypertension, benign On: :31 Request TSH ([id number])Indication: Hypertension, benign On: :31 Request CBC WITH MANUAL DIFF ([id number])Indication: Hypertension, benign On: :31 Request METABOLIC PANEL, COMPREHENSIVE ([id number])Indication: Hypertension, benign On: :31 Request Creatine Kinase Total ([id number])Indication: Myalgia and myositis On: :24 Request SED RATE ERYTHROCYTE ([id number])Indication: Arthralgia On: :23 Request C-REACTIVE PROTEIN ([id number])Indication: Arthralgia On: :23 Request RHEUMATOID FACTOR-QUANT ([id number])Indication: Arthralgia On: :23 Request JOHN (ANTINUCLEAR ANTIBODY) ([id number])Indication: Arthralgia On: :23 Request Planned Encounters Medical; [facility] 3 Month FU - On: 21-Mar-2018 8:30 [facility] Fast DO, Adelaida A Fast DO, Adelaida A Planned Procedures PNEUM VAC ADLT/IMUMNOSPR, On: 06-Dec-2017 Intent SBC/INTRM ([id number])By: Fast DO, Comments: lot: [id number]: ite/route: Татьяна del/IMamt: 0.5mLVIS signed when applicableEVER [place] Adelaida A Fast DO, Adelaida A Cartoid DopplerBy: Fast DO Adelaida On: 06-Sep-2017 Intent A Fast DO, Adelaida A Radiology - Lumbar SpineBy: Fast On: 06-Jun-2017 Intent DO, Adelaida A Fast DO, Adelaida A ELECTROCARDIOGRAM, COMPLETE (ECG) On: 06-Jun-2017 Intent ([id number])By: Fast DO Adelaida A Flakito Comments: ekg [...] XRAY, PA & LATERAL On: 18-Jan-2017 Intent ([id number])By: Yola Witt Aerosol Treatment ([id number])By: On: 18-Jan-2017 Intent Yola Witt Solu -Medrol Injection, 125 mg On: 18-Jan-2017 Intent ([id number])By: Yola Witt Comments: solumedrol 125mg injectionlot: [id number]: GMpt tolerated wellAD VERIFICATION MANAGER ELECTROCARDIOGRAM, COMPLETE (ECG) On: 05-Jan-2016 Intent ([id number])By: Adelaida Fraga DO A Flakito Comments: ekg showed normal sinus rhythym, normal axis, no acute st/t wave changes irbb DO, Adelaida A Solu -Medrol Injection, 125 mg On: 09-May-2015 Intent ([id number])By: Samantha Grewal CNP Comments: lot: [id number]: ite/route:RGM/IMamt: 2mLVIS signed when applicableEVER Dumont Aerosol Treatment ([id number])By: On: 09-May-2015 Intent Slarb VERIFICATION MANAGER, Tracey Radiology - Chest- PA and LatBy: [...] A Fast DO, Adelaida A Pulse Oximetry ([id number])By: Flakito On: 26-Aug-2014 Intent DO, Adelaida A Fast DO, Adelaida A Comments: 94%- recheck 95 Aerosol Treatment ([id number])By: On: 10-Apr-2014 Intent Tracey Young LPN Eprescribed prescriptions On: 25-Jul-2013 Intent (G8553)By: Fast DO, Adelaida A Fast DO, Adelaida A Pulse Oximetry ([id number])By: Flakito On: 02-Jul-2013 Intent DO, Adelaida A Fast DO, Adelaida A Comments: 97% Aerosol Treatment ([id number])By: On: 25-Jun-2013 Intent Samatnha Grewal CNP Eprescribed prescriptions On: 25-Jun-2013 Intent (G8553)By: Samantha Grewal CNP Eprescribed prescriptions On: 02-Apr-2013 Intent (G8553)By: Leigh Ann Polk Aerosol Treatment ([id number])By: On: 26-Mar-2013 Intent Samnatha Grewal CNP Eprescribed prescriptions On: 26-Mar-2013 Intent (G8553)By: Eliana Carter Eprescribed prescriptions On: 25-Dec-2012 Intent (G8553)By: Leigh Ann Polk Aerosol Treatment ([id number])By: On: 06-Nov-2012 Intent Samantha Grewal CNP Eprescribed prescriptions On: 06-Nov-2012 Intent (G8553)By: Eliana Carter Ear Irrigation ([id number])By: Carmina On: 25-Sep-2012 Intent Samantha IRVIN Comments: Ear Irrigation performed on:bilateralAmount/color removed cerumen:large amount of dark brown wax removedOUtcome:clear, pt toleratedUsed wax curettes Wax CurettesBy: Samantha Grewal CNP On: 25-Sep-2012 Intent Eprescribed prescriptions On: 22-Sep-2012 Intent (G8553)By: Elizabet Green DO Eprescribed prescriptions On: 02-Aug-2012 Intent (G8553)By: Leigh Ann Polk Pulse Oximetry ([id number])By: Flakito On: 30-Jun-2012 Intent DO, Adelaida A Fast DO, Adelaida A Comments: 97% Eprescribed prescriptions On: 12-Jun-2012 Intent (G8553)By: Fast DO, Adelaida A Fast DO, Adelaida A Spirometry ([id number])By: Felicitas, On: 17-Jan-2012 Intent Leigh Ann Comments: good effort and curve mild restriction CT - Sinuses CompleteBy: Fast DO, On: 17-Jan-2012 Intent Adelaida A Fast DO, Adelaida A PNEUM VAC ADLT/IMUMNOSPR, On: 17-Jan-2012 Intent SBC/INTRM ([id number])By: Boris, Comments: Lot:[id number]:04-25-12Dose:0.5mLRoute:IMSite:L [facility] By:CHELA signed Julia IMMUNIZ ADMNIN, 1 VAC, SNGL/COMBO On: 17-Jan-2012 Intent ([id number])By: Julia Escalante CT - ChestBy: Fast DO, Adelaida A On: 17-Jan-2012 Intent Fast DO, Adelaida A Eprescribed prescriptions On: 17-Jan-2012 Intent (G8553)By: Leigh Ann Polk Eprescribed prescriptions On: 18-Oct-2011 Intent (G8553)By: Fast DO, Adelaida A Fast DO, Adelaida A EKG ([id number])By: Fast DO, Adelaida A On: 15-Oct-2011 Intent Fast DO, Adelaida A Comments: ekg- sinus with normal axis and nsivcd and no acute changes Eprescribed prescriptions On: 09-Aug-2011 Intent (G8553)By: Fast DO, Adelaida A Fast DO, Adelaida A PFT - CompleteBy: Fast DO, Adelaida On: 08-Mar-2011 Intent A Fast DO, Adelaida A Pulse Oximetry ([id number])By: Carmina On: 02-Feb-2011 Intent Samantha IRVIN Aerosol Treatment ([id number])By: On: 02-Feb-2011 Intent Samantha Grewal CNP Radiology - Chest- PA and LatBy: On: 18-Jan-2011 Intent Fast DO, Adelaida A Fast DO, Adelaida A Pulse Oximetry ([id number])By: On: 18-Jan-2011 Intent Leigh Ann Polk Comments: 93% TDAP VACCINE >7 IM ([id number])By: On: 07-Dec-2010 Intent Leigh Ann Polk Comments: Lot #:[id number] date:mount given:0.5mlRoute: IMSite given:left deltGiven by: DANIEL Zavaleta Eprescribed prescriptions On: 07-Dec-2010 Intent (G8553)By: Fast DO, Adelaida A Fast DO, Adelaida A FLU VAC, SPLIT, >3 YEARS, On: 07-Dec-2010 Intent INTRAMUSC ([id number])By: Felicitas, Comments: received at work Leigh Ann Toradol Injection, 30 mg On: 05-Nov-2010 Intent ([id number])By: Elizabet Green DO Comments: Lot:[id number]:apr 05Amt:30mg/mlRoute:IMSite:left hip Given By: ILDA Tran Ear Irrigation ([id number])By: Peter On: 05-Nov-2010 Intent Elizabet ACKERMAN Comments: Left ear irrigated, large amt of wax removed. pt tolerated well. Eprescribed prescriptions On: 05-Nov-2010 Intent (G8553)By: Elizabet Green DO Wax CurettesBy: Peter ACKERMAN, On: 05-Nov-2010 Intent Elizabet SPECIMEN HNDLNG/TRNSPRT, OFFC > On: 05-Nov-2010 Intent LAB ([id number])By: Elizabet Green DO Nuclear Medicine - HIDA [...] call wet read DO, Adelaida A Spirometry ([id number])By: Fast DO, On: 14-Sep-2010 Intent Adelaida A Fast DO, Adelaida A Comments: good effort and curve- mild restriction Eprescribed prescriptions On: 14-Sep-2010 Intent (G8553)By: Flakito DO, Adelaida A Fast DO, Adelaida A Pulse Oximetry ([id number])By: Flakito On: 14-Sep-2010 Intent DO, Adelaida A Fast DO, Adelaida A Comments: 94-95 Radiology - Chest- PA and LatBy: On: 14-Sep-2010 Intent Fast DO, Adelaida A Fast DO, Adelaida A Pulse Oximetry ([id number])By: Carmina On: 23-Feb-2010 Intent DO ALL OPERATOR, Anamaria Aerosol Treatment ([id number])By: On: 23-Feb-2010 Intent Ciescalin IRVIN, Anamaria Pulse Oximetry ([id number])By: Ciesa On: 26-Jan-2010 Intent DO ALL OPERATOR, Anamaria Aerosol Treatment ([id number])By: On: 26-Jan-2010 Intent Carmina DO ALL OPERATOR, Anamaria Spirometry ([id number])By: Felicitas, On: 29-Apr-2008 Intent Leigh Ann Comments: good effort and curve normal EKG ([id number])By: Flakito DO, Adelaida A On: 20-Apr-2007 Intent [...] ACKERMAN Adelaida A Flakito Comments: Lot #: [id number] date: 10/30Amount given: 2 gramsRoute: IMSite given: Right hip and left hipGiven by: Calin Townsend LPN DO Adelaida A Spirometry ([id number])By: Flakito ACKERMAN, On: 27-Mar-2007 Intent Adelaida A Fast DO, Adelaida A Comments: good effort and curve normal EBV SEROLOGIC TESTBy: Mary Ann Salcido On: 17-Feb-2007 Intent RUDY-GUZMAN VCA ANTIBODY On: 16-Feb-2007 Intent MEASUREMENTBy: Mast RN, Negrita SPECIMEN HNDLNG/TRNSPRT, OFFC > On: 06-Feb-2007 Intent LAB ([id number])By: Fast DO, Adelaida A Fast DO, Adelaida A Ultrasound - TesticularBy: Fast On: 13-Oct-2006 Intent DO, Adelaida A Fast DO, Adelaida A Inhaler Demo ([id number])By: Fast DO, On: 26-Sep-2006 Intent Adelaida A Fast DO, Adelaida A Radiology - Hip - LeftBy: Fast On: 26-Sep-2006 Intent DO, Adelaida A Fast DO, Adelaida A Radiology - Hip - RightBy: Fast On: 26-Sep-2006 Intent DO, Adelaida A Fast DO, Adelaida A Bio Z ([id number])By: Fast DO, Adelaida A On: 25-Jul-2006 Intent Fast DO, Adelaida A Comments: normal paremters Six Minute Walk Assessment On: 25-Jul-2006 Intent ([id number])By: Fast DO, Adelaida A Fast DO, Adelaida A Radiology - Chest- PA and LatBy: On: 25-Jul-2006 Intent Fast DO, Adelaida A Fast DO, Adelaida A Spirometry ([id number])By: Fast DO, On: 25-Jul-2006 Intent Adelaida A Fast DO, Adelaida A Comments: good effort and curve- normal EDISON (Ankle Brachial Index) On: 20-Jul-2006 Intent ([id number])By: Leigh Ann Polk Comments: done EDISON (Ankle Brachial Index) On: 17-May-2006 Intent ([id number])By: Fast DO, Adelaida A Fast DO, Adelaida [...] Indication: Neoplasm of uncertain behavior of skin [facility] Wellness Physical : Patient Instructions Indication: [facility] Well[facility] Physical [facility] Physical : How to access health information online Indication: [facility] Physical [facility] : How to access health information online - Detail Indication: [facility] Physical Other hyperlipidemia [...] Advance Directives Name Dates Details Immunization Registry [place] - Effective on Effective: 31-Jan-201701/31/2017. 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. Has [facility]/u with him end of nov. Work wanted him to come rposper today so had to come in and [...] 2 days with bad UTI.- was at [facility] and getting cystoscopy done and was found to be retaining urine- - by the next night he was sick with no appetitie and just felt bad went to bed - woke up next day- and felt bad- and went to [facility]- and had uti- was there [...] up hospital : Pt was transfered to [facility] for heart cath and discharged sat 06/30/13.- [facility] and one vessel which shows 20percent more [...] saw a Dr Barker a psychiatrist in [place]- he thought mostly anxiety so left him [...] gerd- so he is going back to [facility]- mood good with celexa-less tense, [ADDITIONAL [...]
--- OUTSIDE RECORDS SUMMARY | 2018-05-15 01:01 | XMS RPT_ITS | Continuity of Care Document ---
:1950 Author Organization [facility] Address [address] [facility] [facility] [address] [place] [address] Phone Care Team Providers Name Role Phone Adelaida Fraga DO Unavailable Remigio Lares MD Unavailable Tawanda Alonso Unavailable [facility] Unavailable Eliana Carter Unavailable [...] 09/05- polyps - repeat 5 years [facility] Status: Active Coronary artery disease (I25.10, [...] Solution daily for 90 days Quantity: 3 {Altoona} Refills: 5 Ordered:31-Oct-2017 Fast DO, Adelaida AFast [...] A Start : 02-Nov-2017 Active Comments:sixtyDX: M54.16, M51.62266,411,000 - OD risk 100 Lunesta 3 MG [...] Comments:alternate with 20mg(per hans at [facility] - was not fillable if more than 1qd and would require pa at [phone] or [phone] - sent in this way to see [...] (Oral Capsule) 1 (one) Capsule Capsule bid g1ihxjc for 21 days Quantity: 42 {Capsule} Refills: [...] : 02-Sep-2010 End : 05-Nov-2010 Inactive NYSTATIN, 711696EHLD/ML (Mouth/Throat Suspension) 10 cc tid for 0 [...] : 22-Jun-2013 End : 03-Sep-2013 Inactive ZOSTAVAX, 53233YVA/0.65ML (Subcutaneous Solution Reconstituted) 1 For Solution sc [...] Quantity: 3 {Inhaler} Refills: 3 Ordered:10-Apr-2014 Slarb 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, Tracey Start : 22-Jun-2013 End : 10-Apr-2014 Discontinued ATENOLOL, 50MG (Oral Tablet) 1 tab Tablet qd for 30 days Quantity: 30 {Tablet} Refills: 0 Ordered:10-Apr-2014 Slarb 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, Tracey Start : 12-Jun-2012 End : 10-Apr-2014 [...] Quantity: 60 {Capsule} Refills: 3 Ordered:10-Apr-2014 Slarb 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, Tracey Start : 29-Oct-2013 End : 10-Apr-2014 Discontinued Dymista 137-50 MCG/ACT Nasal Suspension 1 spray each nostril qd for 0 days Quantity: 2 {Altoona} Refills: 0 Ordered:11-Jun-2016 Leigh Ann Polk Start [...] : 05-Jan-2016 End : 06-Apr-2016 Discontinued Comments:Jelani report#[id number]- df viewed and approved- gave scripts to [...] Quantity: 6 {Package} Refills: 0 Ordered:10-Apr-2014 Slarb 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, Tracey Start : 06-Feb-2014 End : 10-Apr-2014 [...] x3 one on scalp two on right latter-day Status: Inactive as of 06-Jun-2017 Acute sinusitis, [...] Result: Comments: See Note; NOTES: [facility] Imaging Services [address] [place] [address] Brain W/WO Contrast MR#: [id number] Acct: [id number] Name: YUMIKO LANDRUM Rep #: [id number] : 1950 M 67 From: Rodney Sarah MD PCP: Adelaida Fraga DO Status: REG CLI Study: Brain W/WO Contrast Date of Exam: 09/26/17 Exam# [id number] Ordering Dr: Perico Crowe MD STUDY: MRI [...] CC: Perico Crowe MD; Adelaida Fraga DO Wilton Weaver: Signed 17-Sep-2017 Carotid Duplex Ultrasound Result: Comments: See Note; NOTES: [facility] Cardiovascular Services [address] [place] [address] Carotid Duplex Ultrasound 09/16/17 1012 MR#: [id number] Acct: [id number] Name: YUMIKO MCCOLLUM Rep #: [id number] : 1950 66 From: Jung Garcia MD [...] the left vertebral artery. Procedure Carotid Duplex 68942. The study was technically difficult. Exam performed [...] Date Dictated: 1012 Date Transcribed: 09/17/17 151 Wilton Weaver: Signed 17-Aug-2017 History and Physical Exam Result: Comments: See Note; NOTES: [facility] Medical Records Department [address] [place] [address] History and Physical 08/17/17913 MR#: [id number] Acct: [id number] Name: LYON AMBER E Rep #: [id number] : 1950 66 From: Remigio Lares MD PCP: Adelaida Fraga DO Status: REG 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 transplanted heart: [place] heart Qualified Code(s): I25.10 - Atherosclerotic heart disease of [place] coron elise artery without angina pectoris Comment: [...] was trivial MR and TR and mild DE. His estimated RV systolic pressure was 30 [...] please see previously dictated out the patient AMBLER from 07/14/2017. Review of systems: Upon review [...] this approach. This note was generated with Encision dictation software. It may contain incorrect words, spelling, and punctuation that were not noted in checking the note bef ore signing. 08/17/17 0925 <Electronically signed by Remigio Lares MD> Date Remigio Lares MD Cosigner Signature: Date (if applicable) CC: Adelaida Fraga DO; Remigio Lares MD Signed 11-Aug-2017 Chest PA and Lateral Result: Comments: See Note; NOTES: [facility] Imaging Services [address] [place] [address] Chest PA and Lateral MR#: [id number] Acct: [id number] Name: YUMIKO LANDRUM Brandon Rep #: [id number] : 1950 M 66 From: Will Guerrero MD PCP: Adelaida Fraga DO Status: REG CLI Study: Chest PA and Lateral Date of Exam: 08/11/17 Exam# [id number] Ordering Dr: Remigio Lares MD STUDY: X-RAY RASHMI REASON FOR EXAM: Male, 66 years old. Heart catheterization 08/17/2017. Shortness of breath. TECHNIQUE: PA and lateral chest. COMPARISON: 02/10/2017. FINDINGS: The lungs are clear and expanded. Normal cardiomediastinal silhouette, deborah and pleural margins. No acute osseous or upper abdominal process. R AD/Chest PA and Lateral IMPRESSION: No acute cardiopulmonary process. Electronically Signed: Wlil Guerrero, at 15:48 EDT Tel , Service support , Fax CC: Adelaida Fraga DO; Remigio Lares MD Wilton Weaver: Signed 02-Aug-2017 Stress Report Result: Comments: See Note; NOTES: [facility] Cardiovascular Services [address] [place] [address] MR#: [id number] Acct: [id number] Name: YUMIKO LANDRUM Rep #: [id number] : [birth year] 66 From: Remigio Lares MD [...] 72 %. This note was generated with [employer]s Platform software. It may contain incorrect words, spelling, and punctuation that were not noted in checking the note before signing. 08/02/17 5138 <Electronically signed by Remigio Lares MD> Date Remigio Lares MD CC: Adelaida Fraga DO; Remigio Lares MD Date Dictate d: 08/02/171638 Date Transcribed: 08/02/171638 Wilton Weaver: PM Signed 14-Jul-2017 Cardiology Visit Report Result: Comments: See Note; NOTES: [facility] [address] [place] [address] OFFICE VISIT Date of Service: 07/14/17 MR#: [id number] Acct: [id number] Name: YUMIKO LANDRUM Rep #: [id number] : 1950 Provider: Remigio Lares MD Age/Sex: 66/M Location: [facility] Status: Signed HPI HPI Details: YUMIKO LANDRUM, is a 66 M who presents to the office today for outpatient card iovascular consultation for history of underlying CAD status post LAD PCI. He has been cared for in the past both by the [facility] members (Drs. Griggs and Edwin), at [facility] by Dr. Rosales, and at [facility] by Dr. Maury Veliz. He states he lost saw Dr. Veliz approximately 1 year ago. He is now relocating his care locally. He has a history of underlying CAD. He underwent a previous diagnostic car diac catheterization on 08/11/2005 at [facility]. At that point in time he was [...] no significant stenosis. In April 2008, at [facility], he had a repeat diagnostic [...] luminal irregularities. He apparently was transferred to [facility] for further evaluation and care. [...] an LYNDSEY inhibitor. He believes his former facing cutting machine operator remove these medications from wi s medication [...] QAM cap 07/14/17 [History Confirmed 07/14/17] [facility] Medical History Presence of sten t in coronary artery (Chronic 08/11/05) Hyperlipidemia (Chronic) Hypertension (Chronic) Prinzmetal angina (Acute) Atherosclerotic heart disease of [place] coronary artery without angina pectoris (Chroni c) [...] affect Assessment AND Plan 1. Atherosclerosis of [place] coronary artery of [place] heart without angina pectoris I25.10 PTCA/RINA to [...] Code Off vis,new,level 4 Diagnoses Atherosclerosis of [place] coronary artery of [place] heart without angina pectoris I25.10 [place] vs. transplanted heart: n ative heart Presence of stent in coronary artery Z95.5 Hyperlipidemia, unspecified hyperlipidemia type E78.5 Hyperlipidemia type: unspecified Essential hypertension I10 Hypertension type: essential hype rtension COPD (chronic obstructive pulmonary disease) J44.9 Coding Level of Care Code Off vis,new,level 4 Diagnoses Atherosclerosis of [place] coronary artery of [place] heart without angina pectoris I 25.10 [place] vs. transplanted heart: [place] heart Presence of stent in coronary artery Z95.5 Hyperlipidemia, unspecified hyperlipidemia type E78.5 Hyperlipidemia type: unspecified Essential hypertension I10 Hypertension type: essential hypertension COPD (chronic obstructive pulmonary disease) J44.9 07/14/17 1558 <Electronically signed by Remigio Lares MD> Date Remigio Lares MD Cosigner Signature: Date (if applicable) CC: Adelaida Fraga DO 14-Jul-2017 12 Lead EKG performed by [facility]MS Result: Comments: See Note; NOTES: [facility] [address] [place] [address] 12 Lead EKG performed by [facility] 07/14/171435 MR#: [id number] Acct: [id number] Name: YUMIKO LANDRUM Rep #: [id number] : 1950 66 From: Remigio Lares MD Attending Dr: Remigio Lares MD Status: DEP AMB Ordering Dr: Remigio Lares MD Date: 07/14/17 Location: [facility] Sex: M C Admitted: BMS/12 Lead EKG performed by [facility] ECG Report Interpretation Sinus Rhythm Right bundle branch block. ABNORMAL Electronically signed on 07/14/2017 at 17:15 by Remigio Lares 07/14/17 1717 Date Remigio Lares MD CC: Adelaida Fraga DO Date Dictated: 07/14/171435 Date Transcribed: 07/14/171435 Wilton Weaver: PM Signed 04-Jul-2017 TXT - Blood Flow Screening Result: Comments: See Note; NOTES: [facility] Cardiovascular Services [address] [place] [address] 07/04/17 0840 MR#: [id number] Acct: [id number] Name: YUMIKO LANDRUM Rep #: [id number] : 1950 66 From: Jung Garcia MD Attending Dr: Adelaida Fraga DO Status: REG REF Ordering Dr: Date: 07/04/17 Location: [facility] Sex: M C Admitted: Reason For Study: [...] (1.0 or greater). Ordering Physician: Adelaida Fraga [facility] Physician: Adelaida Fraga Performed By: Kayla Kelley, RDCS, RVT 07/04/172221 Date Tyrese Garcia MD CC: Adelaida Fraga DO Date Dictated: 07/04/17 0840 Date Transcribed: 07/04/172221 Wilton Weaver: Signed 06-Jun-2017 L/S Spine Min 4 Views Result: Comments: See Note; NOTES: [facility] Imaging Services [address] [place] [address] L/S Spine Min 4 Views MR#: [id number] Acct: [id number] Name: YUMIKO LANDRUM Rep #: [id number] : 1950 M 66 From: Rafael Manley DO PCP: Adelaida Fraga DO Status: REG CLI Study: L/S Spine Min 4 Views Date of Exam: 06/06/17 Exam# [id number] Ordering Dr: Adelaida Fraga DO STUDY: X-RAY [...] Rafael Manley DO at 18:01 EDT Tel [phone], Service support , CC: Adelaida Fraga DO Wilton Weaver: Signed 18-Feb-2017 Ankle min 3 Views Result: Comments: See Note; NOTES: [facility] Imaging Services [address] [place] [address] Ankle min 3 Views MR#: [id number] Acct: [id number] Name: YUMIKO LANDRUM Rep #: [id number] OB: 1950 M 66 From: Trevon Carrillo MD PCP: Adelaida Fraga DO Status: REG CLI Study: Ankle min 3 Views Date of Exam: 02/18/17 Exam# [id number] Ordering Dr: Adelaida Fraga DO STUDY: X-RAY [...] Service support , CC: Adelaida Fraga DO Wilton Weaver: Signed 18-Feb-2017 Chest without Contrast Result: Comments: See Note; NOTES: [facility] Imaging Services [address] [place] [address] Chest without Contrast MR#: [id number] Acct: [id number] Name: YUMIKO LANDRUM Brandon Rep #: [id number] : 1950 M 66 From: Kaitlin Campoverde PCP: Adelaida Fraga DO Status: REG CLI Study: Chest without Contrast Date of Exam: 02/18/17 Exam# [id number] Ordering Dr: Adelaida Fraga DO STUDY: CT [...] Service support , CC: Adelaida Fraga DO Wilton Weaver: Signed 10-Feb-2017 Chest PA and Lateral Result: Comments: See Note; NOTES: [facility] Imaging Services [address] [place] [address] Chest PA and Lateral MR#: [id number] Acct: [id number] Name: YUMIKO LANDRUM Rep #: [id number] : 1950 M 66 From: Chava Fu MD PCP: Adelaida Fraga DO Status: REG CLI Study: Chest PA and Lateral Date of Exam: 02/10/17 Exam# [id number] Ordering Dr: Yola Witt STUDY: X-RAY CHEST [...] , CC: COCO Witt; Adelaida Fraga DO Wilton Weaver: Signed 18-Jan-2017 Chest PA and Lateral Result: Comments: See Note; NOTES: [facility] Imaging Services [address] [place] [address] Chest PA and Lateral MR#: [id number] Acct: [id number] Name: YUMIKO LANDRUM Rep #: [id number] : 1950 M 66 From: Erwin Jiménez MD PCP: Adelaida Fraga DO Status: REG CLI Study: Chest PA and Lateral Date of Exam: 01/18/17 Exam# [id number] Ordering Dr: Yola Witt STUDY: X-RAY CHES [...] EST Tel , Service support , CC: RN PATIENT CAREMayra Witt; Adelaida Fraga DO Wilton Weaver: Signed 11-Apr-2015 Chest PA and Lateral Result: Comments: See Note; NOTES: [facility] Imaging Services [address] [place] [address] Verdana 4d Chest PA and Lateral MR#: [id number] Acct: [id number] Name: YUMIKO LANDRUM Rep #: [id number] : 1950 M 64 From: Stephen Barba MD PCP: Adelaida Fraga DO Status: REG CLI Study: Chest PA and Lateral Date of Exam: 04/11/15 Exam# [id number] Ordering Dr: Adelaida Fraga DO STUDY: X-RAY [...] FACR at 20:20 EST , Service support [phone], RAD/Chest PA and Lateral IMPRESSION: Normal x-ray examination of the chest. No lingular infiltrate is noted on today's examination Electronically Signed: Stephen Barba MD, FACR at 20:20 EST , Service support [phone], CC: Adelaida Fraga DO Wilton Weaver: Signed 11-Apr-2015 Hip min 2 Views Result: Comments: See Note; NOTES: [facility] Imaging Services [address] [place] [address] Verda 4d Hip min 2 Views MR#: [id number] Acct: [id number] Name: CITLALLI LANDRUM Rep #: [id number] : 1950 64 From: Stephen Barba MD PCP: Adelaida Fraga DO Status: REG CLI Study: Hip min 2 Views Date of Exam: 04/11/15 Exam# [id number] Ordering Dr: Adelaida Fraga DO UDY: X-RAY [...] FACR at 20:19 EST , Service support [phone], RAD/Hip min 2 Views IMPRESSION: Normal x-ray examination of the pelvis and hip. Electronically Signed: Stephen Barba MD, FACR 201 07/23/18 at 20:19 EST , Service support [phone], CC: Adelaida Fraga DO Wilton Weaver: Signed 11-Apr-2015 L/S Spine Min 4 Views Result: Comments: See Note; NOTES: [facility] Imaging Services [address] [place] [address] Verda 4d L/S Spine Min 4 Views MR#: [id number] Acct: [id number] Name: YUMIKO LANDRUM Rep #: [id number] : 1950 64 From: Stephen Barba MD PCP: Adelaida Fraga DO Status: REG CLI Study: L/S Spine Min 4 Views Date of Exam: 04/11/15 Exam# [id number] Ordering Dr: Susannah Fraga ra, DO STUDY: [...] FACR at 20:20 EST , Service support [phone], RAD/L/S Spine Min 4 Views IMPRESSION: M ild degenerative disc disease at L2-3 and L5-S1. Facet arthrosis at L4-5 and L5-S1. Mild dextroscoliosis. Electronically Signed: Stephen Barba MD, FACR at 20:20 EST Tel , Service support [phone], CC: Adelaida Fraga DO Wilton Weaver: Signed 27-Aug-2014 Chest PA and Lateral Result: Comments: See Note; NOTES: [facility] Imaging Services [address] [place] [address] Radiology Report MR#: [id number] Acct: [id number] Name: YUMIKO LANDRUM Rep #: [id number] : 1950 M 63 From: Wiflredo Alvarado MD PCP: Adelaida Fraga DO Status: REG CLI Study: Chest PA and Lateral Date of Exam: 08/27/14 Exam# [id number] Ordering Dr: Adelaida Fraga DO STUDY: X- [...] Wilfredo Alvarado MD at 15:46 EDT Tel [phone], Service support [phone], 0079 RAD/Chest PA and Lateral IMPRESSION: Inc reased markings in the lingular segment of the left upper lobe suggestive of early infiltrate. Followup is recommended. Electronically Signed: Wilfredo Alvarado MD at 15:46 EDT Tel [phone], Service support [phone], CC: Adelaida Fraga DO Wilton Weaver: Signed 02-Jul-2013 12 Lead Electrocardiogram Result: Comments: See Note; NOTES: [facility] Cardiovascular Services [address] [place] [address] 12 Lead EKG 06/17/13 193 MR#: [id number] Acct: [id number] Name: CITLALLI LANDRUM Rep #: [id number] : 1950 62 From: Remigio Lares MD [...] Abnormal ECG Confirmed by GERDA CALVO, REMIGIO ([id number]), primer expeditor and drier KARYNA RUBALCAVA (58) on 2013 10:04:35 AM Referred By: Jose Fernando Confirmed By:REMIGIO LARES MD CC: Adelaida byrd DO Date Dictated: 06/17/131937 Date Transcribed: 06/17/131937 Wilton Weaver: Signed 30-Jun-2013 Emergency Department Summary Result: Comments: See Note; NOTES: [facility] Medical Records Department [address] [place] [address] Emergency Department Summary MR#: [id number] Acct: [id number] Name: YUMIKO LANDRUM Rep #: [id number] : 1950 62 From: Jose Fernando MD PCP: Adelaida Fraga DO Status: DEP ER DATE OF SERVICE: 06/28/2013 CHIEF COMPLAINT: Chest pain. HISTORY OF PRESENT ILLNESS: The patient states over the past 8 hours, he has had intermittent discomfort in the chest of burning to ache similar to angina. He had an GA, he thinks, back in 2011 when he had a stent placed by Dr. Mariah carr in [facility]. He has been off his blood thinners [...] nerve function and treatment. [facility] DEPARTMENT COURSE: Portable one-view chest x-ray [...] a 3. He agreed to go to [facility] where his facing cutting machine operator is in case he needs another cath and stent. He was stable for transfer. [facility]. Trujillo as melter helper accepted the patient after being advised of all the above through the transfer steam conditioner operator. He did not want to talk to me. The patient is stable for transfer, with him. DIAGNOSES: 1. Chest pain. 2. Unstable angina. Jose Fernando MD C C: Adelaida Fraga DO T: [facility] JOB: [id number] 06/30/13 0021 <Electronically signed by Jose Fernando MD> Date Jose Fernando MD CC: Adelaida Fraga DO Date Dictated: 06/28/13 2255 Date Transcribed: 06/28/132254 Wilton Weaver: Signed 28-Jun-2013 Chest 1 View (Portable) Result: Comments: See Note; NOTES: [facility] Imaging Services [address] [place] [address] Radiology Report MR#: [id number] Acct: [id number] Name: DOMINICKYUMIKO E Rep #: [id number] : 1950 M 62 From: Wilfredo Alvarado MD PCP: Adelaida Fraga DO Status: DEP ER Study: Chest 1 View (Portable) Date of Exam: 06/28/13 Exam# [id number] Ordering Dr: Jose Fernando MD STUDY: X-RAY [...] Wilfredo Alvarado MD at 9:06 EDT Tel [phone], Service support [phone], CC: Adelaida Fraga DO; Jose Fernando MD Wilton Weaver: Signed Immunization Name Dates Details Influenza vaccine, split, 3yrs &>, IM (AFLURIA) on: Nov-2017 Influenza, inj, MDCK, preservative free, q.valent on: 07-Dec-2016 Comments: Site: Lot #: [id number] Family History Unknown Family Member Name Dates [...] Status: Active 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 criteria.Please note revised GLUCOSE reference range onhsxeqwc69/02/2018. 79-Kww-412657:31 Hemoglobin A1c Comments: [facility] [address] [place], [place], [address] HGB A1C 6.0 % (Normal) Range: 4.2-6.3 :31 Lipid Profile Comments: [facility] [address] [place], [place], [id number] VLDL 24 mg/dL (Normal) Range: 5-40 LDL [...] Risk :31 PSA,Total - Annual Screen Comments: [facility] [address] [place], [place], [id number] PSA,TOT SCREEN 0.50 ng/mL (Normal) Range: 0.00-4.00 Comments: This test was performed using the TPSA assay method for the[facility] chemistry system. Values obtained with differentassay methods cannot be used interchangably.When changing PSA assays in the course of monitoring apatient, additional sequential testing should be carriedout to confirm baseline values. 51-Jfe-509491:42 Aspergillus Antibodies Comments: [facility] (refer to report [...] mg/dL (Normal) Range: 700-1600 Comments: Performed at: [address] [id number] Director: Joseph Velez MD, Phone: [phone] at: [address] [address] Director: Hugo Britt PhD, Phone: [phone] 74-Hft-238327:42 Miscellaneous Lab Comments: Comments: [id number],CLIVE,RTTest(s) Ordered: CLIVE Freedman,[facility] [address] [facility] [place], [place], [address] Procedure MISC Comments: TEST RESULT UNITS REFERENCE INTERVALA. fumigatus #1 Abs NEGATIVE NEGATIVE TESTING PERFORMED AT [facility]. O LAB (Normal) RIGINAL REPORT ON FILE IN LAB CONTAINS ADDITIONAL TEST SITE INFORMATION. TEST 2-Mfi-897428:28 Acetylcholine Receptor Comments: Has Patient had Radioactive Injection for X-ray?: [facility] (refer to report for specific site)refer to report for address and phone number ACTYL [id number] < 0.03 nmol/L (Normal) Range: 0.00-0.24 Comments: Negative: 0.00 - 0.24 Borderline: 0.25 - 0.40 Positive: > 0.40Performed at: [address] [id number] Director: Joseph Velez MD, Phone: [phone] 1-Oxc-681353:28 BUN 9 mg/dL (Normal) Comments: [facility] [address] [place], [id number] Range: 7-18 :28 Serum Creatinine AND GFR Comments: [facility] [address] [place], [phone] EST GFR - AA 100 mL/min (Normal) Comments: GFR Calc EST GFR 83 mL/min (Normal) Comments: Non- GFR Calc CREAT,SERUM 0.97 mg/dL (Normal) Range: 0.70-1.30 Comments: The validity of the calculated GFR AND GFRAA in patients over70 years has not been determined. Clinical correlation isessential. :13 Culture, Fungus 8482 Comments: [facility] [address] [place], [address] CUF See Note Comments: Cu,Ngqnuh6591 TESTING PERFORMED AT [facility]. ORIGINAL REPORT ON FILE IN LAB CONTAINS ADDITIONAL TEST SITE INFORMATION. (Normal) ORGANISM 1: Barron albicansAmount Growth Growth ORGANISM 2: Penicillium speciesAmount Growth Growth :13 Culture, Sputum Comments: [facility] [address] [facility] [address] [place], [id number] CUSP See Note (Normal) Comments: Gram StainAcceptable Specimen? Yes (<25 Epithelial cells per/lpf) Gram Stain 2+ White Blood Cells 2+ Epithelial cells 4+ Gram positive cocci 4+ Gram positive rods Resp. CultureNo Haemoph ilus, Streptococcus pneumoniae, beta-hemolytic Streptococcus or Staphylococcus aureus isolated. ORGANISM 1: Yeast Like OrganismAmount Growth Rare ORGANISM 2: Mixed FloraAmount Growth 3+ 48-Chd-202221:59 CBC W/Diff, Automated Comments: [facility] [address] [place], [address] Absolute Lymph 1.98 {X10_3/ul} (Normal) [...] 4.6-6.2 WBC 10.8 K/mm3 (Normal) Range: 4.4-11.0 06-Ili-135777:59 Comprehensive Metabolic Profil Comments: [facility] [address] [place], [id number] GAP 10 (Normal) Range: 5-15 CO2 27.0 [...] A.D.A. criteria.Please note revised GLUCOSE reference range mbrsgdiqr16/02/2018. 83-Dmg-569139:59 Hemoglobin A1c Comments: [facility] Ovrcpmnhrn6681 [facility]. [place], [place], [address] HGB A1C 6.2 % (Normal) Range: 4.2-6.3 44-Ukk-363201:59 Lipid Profile Comments: [facility] Wgfrwokmoo6037 [facility] [place], [place], [address] VLDL 13 mg/dL (Normal) Range: 5-40 LDL [...] 200-240 mg/dL Borderline >240 mg/dL High Risk 08-Rvu-543198:59 Microalb:Creat Ratio,Random UR Comments: [facility] Dwdgvpvcvy[address] [place], [place], [address] MALB:CREAT 10.1 {mg/g_CRE} (Normal) MICROALBUMIN,UR 5.6 mg/L (Normal) UR CREAT 55.70 mg/dL (Normal) :45 Basic Metabolic Profile (BMP) Comments: [facility] Troixjibhu7[address] [place], [place], [address] GAP 6 (Normal) Range: 5-15 CO2 29.0 [...] Please note revised GLUCOSE reference range /02/2018. 2-Juh-770914:45 Lipid Profile Comments: [facility] Ceucadqucm5151 [address] [place], [place], [address] VLDL 22 mg/dL (Normal) Range: 5-40 LDL [...] 200-240 mg/dL Borderline >240 mg/dL High Risk 6-Iah-632555:45 Liver Profile Comments: [facility] Zqffxlyqgg9048 [place], [address] D BILI 0.13 mg/dL (Normal) Range: 0.00-0.30 T BILI 0.50 mg/dL (Normal) Range: 0.20-1.00 ALT 27 U/L (Normal) Range: 16-61 ALK P 53 U/L (Normal) Range: 45-117 AST 20 U/L (Normal) Range: 15-37 GLOB 4.3 g/dL (Abnormal) Range: 2.2-4.2 ALB 3.0 g/dL (Abnormal) Range: 3.2-5.0 T PROT 7.3 g/dL (Normal) Range: 6.4-8.2 44-Hxo-158867:31 Basic Metabolic Profile (BMP) Comments: [facility] Rzpnhbhxzv3411 [address] [place], [place], [address] GAP 4 (Abnormal) Range: 5-15 CO2 27.0 [...] A.D.A. criteria.Please note revised GLUCOSE reference range wngwhjiif48/02/2018. 49-Smy-401189:31 CBC-Complete Blood Cnt No Diff Comments: [facility] Tvexzdfpuy8130 [place], [address] MPV 8.7 fL (Normal) Range: [...] 4.6-6.2 WBC 9.6 K/mm3 (Normal) Range: 4.4-11.0 25-Fkb-417722:31 Partial Thromboplast Time Comments: [facility] Bfggyslovm3237 [place], [address] PTT 26.1 s (Normal) Range: 24.1-36.2 92-Vqu-032493:31 Prothrombin Time w/INR Comments: [facility] Evtuxbasil1019 [place], [address] INR 0.9 (Normal) PROTIME 12.5 s (Normal) Range: 11.7-14.9 :00 Culture, Fungus 8482 Comments: [place] [address] [place], [place], [address] CUF See Note Comments: Cu,Zehpzj5318 TESTING PERFORMED AT [facility]. ORIGINAL REPORT ON FILE IN LAB CONTAINS ADDITIONAL TEST SITE INFORMATION. (Normal) ORGANISM 1: Barron albicansAmount Growth Growth ORGANISM 2: Penicillium speciesAmount Growth Growth ORGANISM 3: Aspergillus speciesAmount Growth Growth :00 Culture, Sputum Comments: [address] [place], [place], [address] CUSP See Note (Normal) Comments: Gram StainAcceptable Specimen? Yes (<25 Epithelial cells per/lpf) Gram Stain 1+ White Blood Cells Rare Epithelial cells 4+ Gram positive rods 1+ Gram negative rods Resp. Culture Mixed nor mal respiratory ashkan. No Haemophilus, Streptococcus pneumoniae, beta-hemolytic Streptococcus or Staphylococcus aureus isolated. 10-Wwc-448736:00 Culture, Sputum Comments: [address] [place], [place], [address] CUSP See Note (Normal) Comments: Gram StainAcceptable Specimen? Yes (<25 Epithelial cells per/lpf) Gram Stain 1+ White Blood Cells Rare Epithelial cells 3+ Gram positive cocci Resp. CultureMixed normal respiratory ashkan. No Haemophilus, Streptococcus pneumoniae, beta-hemolytic Streptococcus or Staphylococcus aureus isolated. 64-Syz-092567:44 TESTOSTERONE FREE (26064) Comments: PATIENT NOT FASTINGPERFORMED BY: [facility] Ceiktr2222 [facility] [id number] BY: [address] [id number] Free Testosterone(Direct) 2.6 pg/mL (Abnormal) Range: 6.6-18.1 22-Qvm-614915:44 HEPATITIS C ANTIBODY Comments: PATIENT NOT FASTINGPERFORMED BY: [place] 2213170 [facility] [id number] BY: [address] [id number] ([address]) Hep C Virus Ab 0.1 {s/co_ratio} (Normal) Range: 0.0-0.9 Comments: Negative: < 0.8 Indeterminate: 0.8 - 0.9 Positive: > 0.9 . The CDC recommends that a positive HCV antibody result be followed up with a HCV Nucleic Acid Amplification test (088159). 98-Spe-641334:44 CBC W/AUTO DIFF WBC Comments: PATIENT NOT FASTINGPERFORMED BY: [facility] HospitalProposifyMichael [facility] 6061870 [facility] [id number] BY: [address] [id number] ([address]) Immature Grans (Abs) 0.0 {x10E3/uL} (Normal) Range: [...] 4.14-5.80 WBC 6.1 {x10E3/uL} (Normal) Range: 3.4-10.8 39-Krz-701757:44 METABOLIC PANEL, Comments: PATIENT NOT FASTINGPERFORMED BY: CB [facility] Idtpql4568 [facility] [id number] BY: BN [facility] Xgsilrjtyk2146 [facility] [id number] COMPREHENSIVE (07822) ALT (SGPT) 17 [iU]/L (Normal) Range: 0-44 [...] 8-27 Glucose 102 mg/dL (Abnormal) Range: 65-99 44-Ntp-766737:15 HgA1C , Office (46909) HgA1C , Office 5.7 % (Normal) Range: 4.6 - 7.1 :30 CBC W/Diff, Automated Comments: [facility] Omzwzfarmp3416 [address] [place], [place], [address] Absolute Lymph 1.76 {X10_3/ul} (Normal) Range: 0.83-4.51 [...] 4.6-6.2 WBC 6.7 K/mm3 (Normal) Range: 4.4-11.0 39-Gty-358080:30 Comprehensive Metabolic Profil Comments: [facility] Sgqjrzckxu5788 [address]. [place], [address] GAP 9 (Normal) Range: 5-15 CO2 25.0 [...] 7-18 GLU 78 mg/dL (Normal) Range: 70-110 14-Phx-234452:30 Culture, Urine Comments: [facility] Gzlxgwvkoo2055 [address]. [place], [address] CUUR See Note (Normal) Comments: Urine CultureCulture exhibits no growth. 19-Iyp-569341:30 Lipid Profile Comments: [facility] Jbkfhulfrf5317 [address] [place], [address] VLDL 19 mg/dL (Normal) Range: 5-40 LDL [...] 200-240 mg/dL Borderline >240 mg/dL High Risk 77-Xdz-867655:10 Rapid Strep Test, Office (50965) Comments: Negative Rapid Strep Test, Office Negative (Normal) 94-Jqt-40181:51 THROAT CULTURE (40671) Comments: PATIENT NOT FASTINGPERFORMED BY: [facility] [id number] Information: SRC:TH Result 1 RRF (Normal) Comments: Routine respiratory ashkan Upper Respiratory Culture Final report (Normal) 28-Agi-528776:02 Rapid Flu (97905 x 2) Comments: Negative Influenza A Ag Negative (Normal) 32-Kcz-892789:45 URINE WARREN CULTURE-IDENTIFICATN Comments: PERFORMED BY: Branch2 Lab[facility]yre[facility] [id number] Information: SRC:UC (43153) Result 1 NG36 (Normal) Comments: No growth in 36 - 48 hours. Urine Culture,Comprehensive Final report (Normal) 41-Evr-377680:02 Urinalysis, Office (74272) UA - LEUKOCYTE ESTERASE Negative (Normal) UA - NITRITE Negative (Normal) URINE UROBILINGN MASSIEL TIMED Normal mg/dL (Normal) UA - PROTEIN Negative mg/dL (Normal) UA - PH 7 (Normal) UA - BLOOD Negative (Normal) UA - SPECIFIC GRAVITY 1.020 (Normal) UA - KETONES Negative mg/dL (Normal) UA - BILIRUBIN Negative (Normal) UA - GLUCOSE Negative (Normal) 91-Kza-559398:22 CBC W/Diff, Automated Comments: [facility] Vvrlxpkkbh3346 [place], [address] Absolute Lymph 1.50 {X10_3/ul} (Normal) [...] Range: 4.4-11.0 :22 Comprehensive Metabolic Profil Comments: [facility] Iqnyypgymi6577 [place], [address] ; will review opn 11/10 [...] 7-18 GLU 104 mg/dL (Normal) Range: 70-110 44-Qnf-071004:22 Hemoglobin A1c Comments: [facility] Fotlkiktmr1478 [place], [address] HGB A1C 5.6 % (Normal) Range: 4.2-6.3 07-Ovt-165716:22 Immunofixation, Serum Comments: [facility] (refer to report for specific site)refer to report for address and phone number PAULA RESULT,S Comment (Normal) Comments: No monoclonality detected. IMMUNOGL M 53 mg/dL (Normal) Range: 20-172 IMMUNO A 169 mg/dL (Normal) Range: 61-437 IMMUNO G 692 mg/dL (Abnormal) Range: 700-1600 26-Uuq-037929:22 [place] Lambda Light Chains Comments: [facility] (refer to report for specific site)refer to report for address and phone number KAPPA/LAMBDA % 1.17 (Normal) Range: 0.26-1.65 Comments: Performed at: - [facility] [address] [id number] Director: Hugo Britt PhD, Phone: [phone] FR LAMBDA LT CH 12.3 mg/L (Normal) Range: 5.7-26.3 FR KAPPA LT CHN 14.4 mg/L (Normal) Range: 3.3-19.4 57-Mss-291403:22 Lipid Profile Comments: [facility] Rplvwxcmyf2865 [place], [address] VLDL 20 mg/dL (Normal) Range: [...] 200-240 mg/dL Borderline >240 mg/dL High Risk 17-Cqd-732047:22 Microalb:Creat Ratio,Random UR Comments: [facility] Otzdirpxxd0605 [place], [address] ; will review on 11/10 MALB:CREAT 5.6 {mg/g_CRE} (Normal) MICROALBUMIN,UR 7.2 mg/L (Normal) UR CREAT 128.00 mg/dL (Normal) 87-Udp-455370:22 PSA,Total - Annual Screen Comments: [facility] Guxtpckchi9246 [place], [address] PSA,TOT SCREEN 0.63 ng/mL (Normal) Range: 0.00-4.00 Comments: This test was performed using the TPSA assay method for the[facility] chemistry system. Values obtained with differentassay methods cannot be used interchangably.When changing PSA assays in the course of monitoring apatient, additional sequential testing should be carriedout to confirm baseline values. :07 CBC W/Diff, Automated Comments: [facility] [address] [place], [place], [address] Absolute Lymph 1.42 {X10_3/ul} (Normal) Range: 0.83-4.51 [...] Metabolic Profil Comments: [facility] Tmokgswnfb[address] [place], [address] GAP 8 (Normal) Range: 5-15 CO2 27.0 [...] 7-18 GLU 104 mg/dL (Normal) Range: 70-110 77-Vrb-272872:07 Hemoglobin A1c Comments: [facility] Tabwmwnqcc1523 [address] [place], [place], [address] HGB A1C 5.6 % (Normal) Range: 4.2-6.3 04-Axg-695264:07 PAULA + Protein Elect, Serum Comments: Is Patient Fasting? [facility] (refer to report for specific site)refer to report for address and phone number NOTE: Comment (Normal) Comments: Protein electrophoresis scan will follow via computer,mail, or vegetable washing machine operator delivery.Performed at: [facility] [address] [id number] Director: Hugo Britt PhD, Phone: [phone] PAULA RESULT,S Comment (Normal) Comments: No monoclonality detected. A/G RATIO 1.2 (Normal) Range: 0.7-1.7 GLOBULIN, TOTAL 3.0 g/dL (Normal) Range: 2.2-3.9 M-SPIKE g/dL (Normal) Comments: Not Observed GAMMA GLOBULIN 0.7 g/dL (Normal) Range: 0.4-1.8 BETA GLOBULIN 1.1 g/dL (Normal) Range: 0.7-1.3 ZERSV-0-WFSW 0.8 g/dL (Normal) Range: 0.4-1.0 SDNBT-3-EWGX 0.3 g/dL (Normal) Range: 0.0-0.4 ALBUMIN 3.3 g/dL (Normal) Range: 2.9-4.4 IMMUNOGL M 53 mg/dL (Normal) Range: 20-172 IMMUNO A 177 mg/dL (Normal) Range: 61-437 IMMUNO G 761 mg/dL (Normal) Range: 700-1600 PROTEIN,TOTAL 6.3 g/dL (Normal) Range: 6.0-8.5 69-Yoq-961199:07 Lipid Profile Comments: [facility] Enieq[address] [place], [place], [address] VLDL 21 mg/dL (Normal) Range: 5-40 LDL [...] 200-240 mg/dL Borderline >240 mg/dL High Risk 68-Uee-328815:01 CBC W/Diff, Automated Comments: [facility] Duividwijx[address] [place], [address] Absolute Lymph 1.62 {X10_3/ul} (Normal) [...] 4.6-6.2 WBC 7.6 K/mm3 (Normal) Range: 4.4-11.0 25-Nwt-309060:01 Comprehensive Metabolic Profil Comments: [facility] Hoowaijopy8527 Andrea [place], [place], [address] ; has apt today GAP 7 (Normal) [...] 7-18 GLU 96 mg/dL (Normal) Range: 70-110 67-Myx-025746:01 Lipid Profile Comments: [facility] Xwosdituxt4532 [facility] [place], [place], [address] VLDL 11 mg/dL (Normal) Range: 5-40 LDL [...] 200-240 mg/dL Borderline >240 mg/dL High Risk 18-Zed-486453:01 Lipoprotein A 369 nmol/L (Abnormal) Comments: [facility] [...] genetic factors on Lp(a) across ethnicities.Performed at: Branch2 [address]urn[address] [id number] Director: Hugo Britt PhD, Phone: [phone] 77-Plp-418683:56 HgA1C , Office (22198) HgA1C , Office 5.6 % (Normal) Range: 4.6 - 7.1 0-Ozi-716385:19 ANCA Panel Comments: PATIENT NOT FASTINGPERFORMED BY: [place] [facility] [place] [id number] BY: Handseeing Information [address] [id number] Atypical pANCA <1:20 {titer} Comments: The atypical [...] follow up testing ofpositive sera with both DE-3 and MPO-ANCA enzyme immunoassays. Asmany as 5% serum samp les are positive only by EIA.Ref. AM J Clin Pathol 1999;111:507-513. Cytoplasmic (C-ANCA) <1:20 {titer} (Normal) Antiproteinase 3 (DE-3) Abs <3.5 U/mL (Normal) Range: 0.0-3.5 Antimyeloperoxidase (MPO) Abs <9.0 U/mL (Normal) Range: 0.0-9.0 1-Hfq-520635:19 Antinuclear Antibodies Comments: PATIENT NOT FASTINGPERFORMED BY: [facility] [place] [id number] BY: [facility]6370 [facility] [id number] Direct JOHN Direct Negative (Normal) :1 C-Reactive Protein, 2.1 mg/L (Normal) Comments: PATIENT NOT FASTINGPERFORMED BY: [address] [id number] BY: [facility]6370 [facility] [id number] 9 Quant Range: 0.0-4.9 :19 Rheumatoid Arthritis Comments: PATIENT NOT FASTINGPERFORMED BY: [address] [id number] BY: [place] 2213170 [facility] [id number] Factor RA Latex Turbid. 7.8 {IU/mL} Range: 0.0-13.9 (Normal) Sedimentation 8 mm/h (Normal) Comments: PATIENT NOT FASTINGPERFORMED BY: [address] [id number] BY: [place] 2213170 [facility] [id number] :19 Rate-Westergren Range: 0-30 Thyroid Peroxidase (TPO) 8 {IU/mL} (Normal) Comments: PATIENT NOT FASTINGPERFORMED BY: [address] [id number] BY: [place] 2213170 [facility] [id number] :19 Ab Range: 0-34 :19 Thyroxine (T4) Free, Comments: PATIENT NOT FASTINGPERFORMED BY: [address] [id number] BY: [place] 2213170 [facility] [id number] Direct, S T4,Free(Direct) 1.11 ng/dL Range: 0.82-1.77 (Normal) Triiodothyronine,Free,Seru 2.5 pg/mL (Normal) Comments: PATIENT NOT FASTINGPERFORMED BY: [facility]1447 [facility] [id number] BY: [facility]6370 [facility] [id number] 2:19 m Range: 2.0-4.4 TSH 3.450 {uIU/mL} Comments: PATIENT NOT FASTINGPERFORMED BY: LabCo[address] [id number] BY: [facility]6370 [facility] [id number] 2:19 (Normal) Range: 0.450-4.500 9-Twm-850835:30 Pathology Report Comments: PERFORMED BY: [employer] [facility] Mwbck65077 [facility] [id number] Information: [id number] See MATER Comments: Material submitted: .FOREHEAD SHAVE [...] IN CASSETTE(S) A./CORCOR/CORPa thologist provided ICD-10:D48.5, L90.9CPT .887738 42-Gzt-53095:22 TESTOSTERONE FREE (04773) Comments: PATIENT WAS FASTINGPERFORMED BY: [facility] [id number] BY: [employer] [id number] Free Testosterone(Direct) 2.5 pg/mL (Abnormal) Range: 6.6-18.1 14-Tcl-50177:22 VITAMIN B-12 (CYANOCOBALAMIN) Comments: PATIENT WAS FASTINGPERFORMED BY: [employer] [place] [facility] HospitalThere CorporationFormer[facility] [id number] BY: [employer] [id number] (81468) Vitamin B12 638 pg/mL (Normal) Range: 211-946 97-Yaw-13595:22 CBC W/AUTO DIFF WBC Comments: PATIENT WAS FASTINGPERFORMED BY: [facility] HospitalThere CorporationFormer[facility] [id number] BY: [employer] [id number] Inf ormation: NURSE DRAW (88569) Immature Grans (Abs) 0.0 {x10E3/uL} (Normal) Range: [...] 4.14-5.80 WBC 7.3 {x10E3/uL} (Normal) Range: 3.4-10.8 20-Qwb-35794:22 METABOLIC PANEL, Comments: PATIENT WAS FASTINGPERFORMED BY: CB [facility] Znrrjm8056 [facility] [id number] BY: [facility] [address] [id number] [facility]ENTER[facility] ([address]50) ALT (SGPT) 12 [iU]/L (Normal) Range: 0-44 [...] Glucose, Serum 100 mg/dL (Abnormal) Range: 65-99 96-Wrm-27903:52 CBC W/Diff, Automated Comments: [facility] Gouqfjxeea13[address] [place], [place], [address] Absolute Lymph 1.73 {X10_3/ul} (Normal) Range: 0.83-4.51 [...] 4.6-6.2 WBC 6.0 K/mm3 (Normal) Range: 4.4-11.0 23-Aek-48646:52 Comprehensive Metabolic Profil Comments: [facility] Qikizcmtlf6276 Andrea [place], [place], [address] GAP 6 (Normal) Range: 5-15 CO2 26.0 [...] Hemoglobin A1c Comments: [facility] T[address] [place], [place], [address] HGB A1C 5.6 % (Normal) Range: 4.2-6.3 :52 Lipid Profile Comments: [facility] [address] [place], [address] VLDL 21 mg/dL (Normal) Range: [...] Ratio,Random UR Comments: [facility] W[address]ferejljp[address] [place], [address] MALB:CREAT 9.1 {mg/g_CRE} (Normal) MICROALBUMIN,UR 9.0 mg/L (Normal) UR CREAT 99.50 mg/dL (Normal) :52 PSA,Total - Annual Screen Comments: [facility] [address] [place], [address] PSA,TOT SCREEN 0.51 ng/mL (Normal) Range: 0.00-4.00 Comments: This test was performed using the TPSA assay method for [employer] chemistry system. Values obtained with differentassay methods cannot be used interchangably.When changing PSA assays in the course of monitoring apatient, additional sequential testing should be carriedout to confirm baseline values. COLON BIOPSY (CHOOSE See Note (Normal) Comments: [facility] Gybpnwbnjs5320 [place], [address] :45 SITE) Comments: Patient: YUMIKO LANDRUM : 1950 (64/M) Acct Num: [id number] Phys: Hugo Bullock Unit Num: [id number] Loc: LABSPEC Specimen: [id number] Received: 09/11/151646 Spec Type: C OLON BX [...] in one cassette. / IRON:momo 09/11 TC:1 CPT:96494 x2 HEADER OPERATION: Colonoscopy with biopsy PRE-OP [...] W/Diff, Automated Comments: [facility] Stpssmuqrz0655 [address]. [place], [place], [address] ; noon-emergent till apt Absolute Lymph 1.39 [...] 4.6-6.2 WBC 6.5 K/mm3 (Normal) Range: 4.4-11.0 26-Wag-593153:37 Comprehensive Metabolic Profil Comments: [facility] Bcszgxesaz5747 [address]. [place], [place], [address] GAP 6 (Normal) Range: 5-15 CO2 27.0 [...] <126 mg/dLsuggests IMPAIRED HOMEOSTASIS per A.D.A. criteria. 68-Dwn-731224:37 Hemoglobin A1c Comments: [facility] Xioelpnwsh7840 [facility] [place], [place], [address] HGB A1C 5.6 % (Normal) Range: 4.2-6.3 54-Bpd-968878:37 Lipid Profile Comments: [facility] [address] [place], [place], [address] VLDL 17 mg/dL (Normal) Range: 5-40 LDL [...] 200-240 mg/dL Borderline >240 mg/dL High Risk 5-Lju-729221:12 Factor II, DNA Analysis Comments: [facility] (refer to report for specific site)refer to report for address and phone number COMMENT Comment (Normal) Comments: Genetic Counselors are available for health care providersto discuss results at [phone] ([phone]).Methodology:DNA analysis of the Factor II gene was performed by PCRamplification followed by restric tion analysis. Thediagnostic sensitivity is >99% for both. All the tests mustbe combined with clinical information for the most accurateinterpretation. Molecular-based testing is highly accurate,but as in any laboratory test, diagnostic errors may occur.Matthewt SR, et al. Blood. 1996; 88:2285-9742.Diallo EA. Circulation. 2004; 110:e15-e18.Bobby I, et al. Arterioscler Thromb Vasc Biol. 1999;19:700 -703.Lance Shea, PhDRuthie Cooper, PhDAnahy Delgado, Lorena Beal, Xiomara Easley, PhDKelly Benjamin, PhDPerformed at: TG - [facility] DBW7321 [place], [place] [id number] villa: Vilma Butterfield MD, Phone: [phone] FACTOR II,DNA Comment (Normal) Comments: NEGATIVENo mutation identified.Comment:A point mutation ([id number]) in the factor II (prothrombin)gene is the [...] individual mutations. This assaydetects only the prothrombin H86156I mutation and doesnot measure genetic abnormalities elsewhere i n thegenome. Other thrombotic risk factors may be pursuedthrough systematic clinical laboratory analysis. Thesefactors include the R506Q (Leiden) mutation in the Factor Vgene, plasma homocysteine levels , as well as testing fordeficiencies of antithrombin III, protein C and protein S. 54-Rgx-58115:42 Miscellaneous Comments: Comments: [id number],PLASMA,[facility](s) Ordered: [id number],PLASMA,[facility] Esiyufntmw1553 [place], [address] Lab Procedure MISC Comments: TEST RESULT UNITS REFERENCE INTERVALAntithrombin III, Func/ImmunolAntithrombin Activity 97 % 75 - 135Antithrombin Antigen 97 % 75 - 130 LAB (Normal) TESTING PERFORMED AT [facility]. ORIGINAL REPORT ON FILE IN LAB CONTAINS ADDITIONAL TEST SITE INFORMATION. TEST 1 Throm 15.9 Comments: [facility] (refer to report for specific site)refer to report for address and phone number 9 bin {sec} Range: 0.0-20.0 - Time (Normal) Comments: Performed at: [address] [place], [place] [id number] Director: Joseph Velez MD, Phone: [phone] F e b - 2 0 1 6 9 : 4 2 :34 CBC W/Diff, Automated Comments: [facility] [address]ghc[address] [place], [address] Absolute Lymph 1.34 {X10_3/ul} (Normal) [...] (Normal) Range: 4.4-11.0 :34 Comprehensive Comments: Comments: [id number],ELENO PALMERCleveland Clinic [facility] Hospital [address]juczljghg[address] [place], [place], [address] ; apt today Metabolic Profil GAP 8 [...] 7-18 GLU 109 mg/dL (Normal) Range: 70-110 57-Hwr-82276:34 Fact V Leiden Mutation Comments: [facility] (refer to report for specific site)refer to report for address and phone number COMMENT Comment (Normal) Comments: Genetic counselors are available for health careproviders to discuss results at [phone]).Methodology:DNA analysis of the Factor V gene was [...] Xiomara lugo, PhDKelly Benjamin, PhDPerformed at: - [facility]Zvfijwhtre9024 [place], [place] [address]Hwp Director: Joseph Velez MD, Phone: [phone] at: [facility] SYD5517 [place], [place] [id number] Director: Vilma Butterfield MD, Phone: [phone] FACTOR V LEIDEN Comment (Normal) Comments: Result: [...] in the workup for venous thrombosis include [id number] mutation in the factor II (prothrombin) gene,protein S and C deficiency, and antithrombin deficiencies.Anticardiolipin antibody and lupus anticoagu lant analysismay be appropriate for certain patients, as well ashomocysteine levels.Contact your local [facility] for information on how to orderadditional testing if desired. :34 Hemoglobin A1c Comments: [facility] [address] [place], [place], [address] HGB A1C 5.6 % (Normal) Range: 4.2-6.3 :34 Lipid Profile Comments: Comments: [id number],SPENCERAultman [facility] Hospital [address]psthxc[address] [place], [address] VLDL 17 mg/dL (Normal) Range: [...] 200-240 mg/dL Borderline >240 mg/dL High Risk 43-Giu-70560:34 Miscellaneous Lab Comments: Comments: [id number],BLUEANDRED,FZTest(s) Ordered: SPENCER Gonsalves FZCleveland Clinic [facility] Hospital Dcivyhngqk2045 [place], [address] Procedure MIS Comments: TEST RESULT UNITS REFERENCE [...] anticoagulant is not de tected. aCL and D2OQ5zpmlbnpixo are normal.ANTIPHOSPHOLIPID SYNDROME ASSESSMENT SUMMARY-No evidence of a lupus anticoagulant, B2GP1 or aCLantibodies. As antibody titers may fluctuate with time,repeat te sting may be indicated if antiphospholipid syndromeis suspected.ANTIPHOSPHOLIPID SYNDROME ASSESSMENT DEFINITIONS-aCL- anticardiolipin (antibodies to cardiolipin); D6YQ1-yieixthlqk to Beta-2 Glycoprotein 1; LA- lupus anticoagulant(which is identified with the dRVVT and/or hexagonalphospholipid neutralization assays); aPL- antibodies toprotein/phospholipid complexes such as LA, aCL, and J8HT3ubrfxckfau; APS- antiphospholipid syndrome; DTI-directthrombin inhibitors.-FREIGHT ROUTER:For questions regarding panel interpretation, please contactHalle Arrington [...] V et al. J Thromb Haemost. 2009; 7(10):7973-7519.(2) Tyrone S et al. J Thromb H aemost. 2006;4(2):295-306.(3) Keith DA et al. Blood. 2007;110(9): 4968-0881. [facility] ORIGINAL REPORT ON FILE IN [...] PROTEIN S,TOTAL 136 % (Normal) Range: 58-150 81-Bom-133275:54 CBC W/Diff, Automated Comments: [facility] [address] [place], [place], [id number] Absolute Lymph 1.61 {X10_3/ul} (Normal) Range: 0.83-4.51 [...] 4.6-6.2 WBC 7.1 K/mm3 (Normal) Range: 4.4-11.0 36-Kez-849965:54 Comprehensive Metabolic Profil Comments: [facility] [address]ogxq[address] [place], [place], [address] GAP 7 (Normal) Range: 5-15 CO2 26.0 [...] 7-18 GLU 98 mg/dL (Normal) Range: 70-110 90-Qgc-471114:54 Lipid Profile Comments: [facility] [address] [facility] [place], [address] ; apt today VLDL 19 [...] Comments: Test performed at:[facility] [address] [facility] [place] [address] GAP 7 (Normal) Range: 5-15 [...] Comments: Please note revised CREATININE reference range wqiiyhxse60/22/2015. BUN 15 mg/dL (Normal) Range: 7-18 GLU 103 mg/dL (Normal) Range: 70-110 :55 Hemoglobin A1c Comments: Test performed at:[facility] [address] [place] [address] HGB A1C 6.0 % (Normal) Range: 4.2-6.3 :55 Lipid Profile Comments: Test performed at:[facility] [address] [place] [address] VLDL 17 mg/dL (Normal) Range: 5-40 LDL [...] 200-240 mg/dL Borderline >240 mg/dL High Risk 65-Ebs-673590:49 Anti-dsDNA Ab Comments: ADDED PER VERBAL ORDER - FAXED ORDER TO FOLLOWSpecimen Comment: A duplicate report has been generated due to demographicSpecimen Comment: updates.Test performed at:[facility] Laboratory[address] [place] [address] dsDNA AB 12 {IU/mL} (Abnormal) Range: 0-9 Comments: Negative <5 Equivocal 5 - 9 Positive >9; ADDENDA: non-emergent because has apt today to discuss. 32-Pzb-578366:49 ANTINUCLEAR ANTIBODIES DIRECT Comments: Test performed at:[facility] [address] [place] [address] JOHN-DIRECT Positive (Abnormal) Comments: Performed at: [address] [id number] Director: Reno Yanes PhD, Phone: [phone] 27-Iie-348700:49 CBC W/Diff, Automated Comments: Test performed at:[facility] [address] [place] [address] Absolute Lymph 1.22 {X10_3/ul} (Normal) [...] 4.6-6.2 WBC 4.9 K/mm3 (Normal) Range: 4.4-11.0 22-Kye-681854:49 Comprehensive Metabolic Profil Comments: Test performed at:[facility] [address] [place] [address] GAP 6 (Normal) Range: 5-15 [...] 7-18 GLU 104 mg/dL (Normal) Range: 70-110 99-Bxv-321263:49 CRP Comments: Test performed at:[facility] [address] [facility]. [place], [place] [id number] C-REACTIVE PROT < 2.90 mg/L (Normal) Range: 0.0-3.0 Comments: C-Reactive Protein (CRP) provides useful information for thediagnosis, therapy and monitoring of inflammatory processesand associated diseases. For the evaluation of Relative Riskfor Cardiovascular Dise ase, a High Sensitivity CRP (HSCRP)should be ordered. :49 Culture, Urine Comments: Test performed at:[facility] [address] [place] [address] CUUR See Note (Normal) Comments: Urine CultureCulture exhibits no growth.; ADDENDA: Pt has apt today, will discuss then :49 Erythrocyte Sed Rate Comments: Test performed at:[facility] [address] [place] [address] SED RATE 21 mm/h (Abnormal) Range: 0-20 63-Zmm-056437:49 Hemoglobin A1c Comments: Test performed at:[facility] [address] [place] [address] HGB A1C 5.8 % (Normal) Range: 4.2-6.3 60-Eut-942606:49 Lipid Profile Comments: Test performed at:[facility] [address] [place] [address] VLDL 8 mg/dL (Normal) Range: [...] 200-240 mg/dL Borderline >240 mg/dL High Risk 70-Dsd-290417:49 Microalb:Creat Ratio,Random UR Comments: Test performed at:[facility] [address] [place] [address] MALB:CREAT 12.2 {mg/g_CRE} (Normal) MICROALBUMIN,UR 17.2 mg/L (Normal) UR CREAT 140.0 mg/dL (Normal) :49 PSA,Total - Annual Screen Comments: Test performed at:[facility] [address] [place] [address] PSA,TOT SCREEN 0.47 ng/mL (Normal) Range: 0.00-4.00 Comments: This test was performed using the TPSA assay method for [employer] chemistry system. Values obtained with differentassay methods cannot be used interchangably.When changing PSA assays in the course of monitoring apatient, additional sequential testing should be carriedout to confirm baseline values. :49 Thyroid Stim Hormone (TSH) Comments: Test performed at:[facility] [address] [place] [address] TSH 1.60 {uIU/mL} (Normal) Range: 0.358-3.74 94-Hsb-416066:49 Urinalysis, Complete Comments: How was Urine Obtained? Urine, RandomTest performed at:[facility] [address] [place] [address] MUCUS, URINE 0 SEEN {/hpf} (Normal) BACTERIA [...] Urine, RandomTest performed at:[facility] [address] [facility] [place] [address] MUCUS, URINE 2+ {/hpf} (Normal) [...] (Normal) CLARITY Clear (Normal) COLOR Yellow (Normal) 88-Pha-766068:07 Comprehensive Metabolic Profil Comments: Test performed at:[facility] [address] [facility]. [place], [place] [id number] GAP 6 (Normal) Range: 5-15 CO2 28.0 [...] 7-18 GLU 108 mg/dL (Normal) Range: 70-110 28-Pbc-394492:07 CPK Total, Creatine Kinase Comments: Test performed at:[facility] [address] [place], [place] [address] CPK TOTAL 91 U/L (Normal) Range: 39-308 48-Qaw-705072:56 Rapid Flu (84090 x 2) Influenza A Ag negative (Normal) 3-Jyq-146576:28 URINE WARREN CULTURE-MASSIEL COL Comments: PATIENT NOT FASTINGPERFORMED BY: [facility] [address]nnls0920 [facility] [id number] Information: SRC:UR I78565 COUNT (23249) Result 1 ECV (Abnormal) Comments: Escherichia coli, [...] R Urine Final report Culture,Comprehensi (Abnormal) ve 7-Pvy-820405:58 Urinalysis, Office (90582) UA - LEUKOCYTE ESTERASE Small (Normal) UA - NITRITE Negative (Normal) URINE UROBILINGN MASSIEL TIMED 2 mg/dL (Normal) UA - PROTEIN 30 mg/dL (Normal) UA - PH 6.0 (Normal) Comments: 5.5 UA - BLOOD Hemolyzed Small (Normal) UA - SPECIFIC GRAVITY 1.030 (Abnormal) UA - KETONES Negative mg/dL (Normal) UA - BILIRUBIN Small (Normal) UA - GLUCOSE Negative (Normal) 3-Myf-477442:41 URINE WARREN CULTURE-MASSIEL COL Comments: PATIENT NOT FASTINGPERFORMED BY: [facility]6370 [facility] [id number] Information: SRC: URINE COUNT (49159) Result 1 ECV (Abnormal) Comments: Escherichia coli, [...] R Urine Final report Culture,Comprehensi (Abnormal) ve 4-Oia-140838:27 Urinalysis, Office (09647) UA - LEUKOCYTE ESTERASE Trace (Normal) UA - NITRITE Negative (Normal) URINE UROBILINGN MASSIEL TIMED 2 mg/dL (Normal) UA - PROTEIN Negative mg/dL (Normal) UA - PH 6.0 (Normal) UA - BLOOD Negative (Normal) UA - SPECIFIC GRAVITY 1.010 (Normal) UA - KETONES Negative mg/dL (Normal) UA - BILIRUBIN Negative (Normal) UA - GLUCOSE Negative (Normal) 0-Fjt-774090:30 HgA1C , Office (58609) HgA1C , Office 5.7 % (Normal) Range: 4.6 - 7.1 9-Rxn-337450:10 URINE WARREN CULTURE-MASSIEL COL Comments: PATIENT NOT FASTINGPERFORMED BY: [facility]6370 [facility] [id number] Information: SRC:UR L22702 COUNT (02530) Result 1 NG36 (Normal) Comments: No growth in 36 - 48 hours. Urine Culture,Comprehensive Final report (Normal) 1-Xkm-456905:58 CBCD PATHR Reviewed (Normal) RBCM NORM C+C [...] 4.6-6.2 WBC 5.2 K/mm3 (Normal) Range: 4.4-11.0 5-Fxh-040289:58 CMP GAP 7 (Normal) Range: 5-15 CO2 [...] CHOL 155 mg/dL (Normal) Comments: <200 mg/dL Wnayuwxoc560-771 mg/dL Borderline>240 mg/dL High Risk TRIG 121 [...] (Normal) UCLAR Clear (Normal) UCOL Yellow (Normal) 14-Kke-419072:20 CUUR URC See Note (Normal) Comments: ESBL+ [...] >=320 R (NF) indicates non-formulary drug at [facility]. Approval by Infectious DiseaseSpecialist required before non-formulary drugs may beordered and/or dispensed. 50-Ewg-012632:20 UA Comments: How was Urine Obtained? CLEAN CATCH ANGE 500 /ul (Abnormal) MICA Negative (Normal) UOB 25 /ul (Abnormal) LEESA 6.0 (Normal) Range: 5.0 - 8.0 uPROTU 30 mg/dL (Abnormal) UROBU 1 mg/dL (Abnormal) KETU Negative mg/dL (Normal) SGU 1.015 (Normal) Range: 1.002-1.030 BILIU Negative mg/dL (Normal) GLUR Normal mg/dL (Normal) UCLAR Cloudy (Normal) UCOL Yellow (Normal) 56-Jmk-152827:27 A1C 5.6 % (Normal) Range: 4.2-6.3 67-Ifb-451568:27 B12 574 pg/mL (Normal) Range: 211-911 87-Erf-701518:27 CBC MPV 8.8 fL (Normal) Range: 6.2-12.0 [...] 4.6-6.2 WBC 6.4 K/mm3 (Normal) Range: 4.4-11.0 61-Pep-700060:27 CUUR URC Culture exhibits no growth. (Normal) 73-Pjh-217654:27 EBGM EBNA 81.6 U/mL (Abnormal) Range: 0.0-17.9 Comments: Negative <18.0Equivocal 18.0 - 21.9Positive >21.9 tEBINT Comment (Normal) Comments: EBV Interpretation ChartInterpretation EBV-IgM VCA-IgG EBNA-IgG EA(D)-IgGEBV Seronegative - - - -Early Phase + - - -Acute Primary + + - +or-InfectionConvalescence/Past - + + +or-InfectionReactivated +or- + + +Infection+ Antibody Present - Antibody Absen tPerformed at: [facility] [id number] Director: Melquiades Hector MD, Phone: [phone] EBEAG <9.0 U/mL (Normal) Range: 0.0-8.9 Comments: [...] <0.05 NEGATIVE0.06 - 0.59 AT RISK OF GA> OR = 0.60 SUGGEST GA :47 HgA1C , Office (68962) HgA1C , Office 6.3 % (Normal) Range: [...] CHOL 147 mg/dL (Normal) Comments: <200 mg/dL Eihdctmqq687-262 mg/dL Borderline>240 mg/dL High Risk 8-Tcx-522895:55 Rapid Flu (37179 x 2) Comments: neg Influenza A Ag negative (Normal) 9-Qln-891966:02 FECAL OCCULT- Tubes sent home (41133) FECAL OCCULT HGB ASSAY, QUAL, 1-3 negative [...] {IU/mL} (Normal) Range: 0-100 Comments: Performed at: [facility] Lab[address] Director: Melquiades Hector MD, Phone: [phone] IMM 55 mg/dL (Normal) Range: 40-230 DEBBY 182 mg/dL (Normal) Range: 91-414 IMG 788 mg/dL (Normal) Range: 700-1600 :39 LDH 190 U/L (Normal) Comments: Serial Specimen #1, #2 or #3? 1Is Patient Taking Vitamins or Folic Acid Supplements? N Range: 84-246 :39 PROEL Comments: Is Patient Fasting? 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 tPROELAG 1.6 (Normal) Range: 0.7-2.0 [...] Supplements? N Range: 250-450 :56 CULTURE, SPUTUM (77850) Comments: PATIENT NOT FASTINGPERFORMED BY: [facility]duemw9547 [facility] [id number] Information: SRC:[facility] [id number] Result 1 RRF (Normal) Comments: Routine respiratory ashkan Lower Respiratory Culture Final report (Normal) :32 HgA1C , Office (57125) HgA1C , Office 5.9 % (Normal) Range: 4.6 - 7.1 :32 Blood Glucose , Office (57463) Blood Glucose , Office 90 (Normal) :51 [...] 4.6-6.2 WBC 7.2 {k/mm3} (Normal) Range: 4.4-11.0 22-Amr-388466:51 CMP GAP 9 (Normal) Range: 5-15 CO2 [...] CHOL 149 mg/dL (Normal) Comments: <200 mg/dL Hnvrpxhns994-353 mg/dL Borderline>240 mg/dL High Risk :51 PSA 0.51 ng/mL (Normal) Range: 0.00-4.00 Comments: This test was performed using the TPSA assay method for theData Virtuality chemistry system. Values obtained with differentassay methods cannot be used interchangably.When changing PSA assays in the course of monitoring apatient, additional sequential testing should be carriedout to confirm baseline values. 27-Vhf-522323:59 MISC (Normal) Comments: TEST RESULT LIMITSAntinuclear Antibodies, [...] 4.6-6.2 WBC 7.8 {k/mm3} (Normal) Range: 4.4-11.0 03-Jrh-948665:32 CMP GAP 10 (Normal) Range: 5-15 CO2 [...] CHOL 154 mg/dL (Normal) Comments: <200 mg/dL Wdlkrdqmj620-858 mg/dL Borderline>240 mg/dL High Risk HDL 64 [...] (Normal) UCLAR Clear (Normal) UCOL Yellow (Normal) 94-Skd-978064:11 AFBCS tAFBC See Note Comments: TESTING PERFORMED AT [facility]. ORIGINAL REPORT ONFILE IN LAB CONTAINS ADDITIONAL TEST SITE INFORMATION. (Normal) CULTURE, ACID FAST FINAL CULTURE REPORT TO FOLLOW IN 6 WEEKS. tAFBSF See Note Comments: TESTING PERFORMED AT [facility]. ORIGINAL REPORT ONFILE IN LAB CONTAINS ADDITIONAL TEST SITE INFORMATION. (Normal) ACID FAST BACILLUS SMEARAcid Fast Smear from Concentrated Specimen :Negative 40-Txr-768061:11 CUFST FUNST See Note Comments: TESTING PERFORMED AT [facility]. ORIGINAL REPORT ONFILE IN LAB CONTAINS ADDITIONAL TEST SITE INFORMATION. (Normal) FUNGUS STAIN No yeast or mold observed. CUF See Note Comments: TESTING PERFORMED AT [facility]. ORIGINAL REPORT ONFILE IN LAB CONTAINS ADDITIONAL TEST SITE INFORMATION. (Normal) CULTURE, FUNGUSNO YEAST OR MOLD ISOLATED AFTER 4 WEEKS. 63-Tbh-494635:11 CUSP RESPC See Note (Normal) Comments: No [...] IN CHAINS AND CLUSTERS1+ GRAM POSITIVE RODS 87-Qom-151795:23 AFBCS tAFBC See Note Comments: TESTING PERFORMED AT [facility]. ORIGINAL REPORT ONFILE IN LAB CONTAINS ADDITIONAL TEST SITE INFORMATION. (Normal) CULTURE, ACID FAST FINAL CULTURE REPORT TO FOLLOW IN 6 WEEKS. tAFBSF See Note Comments: TESTING PERFORMED AT [facility]. ORIGINAL REPORT ONFILE IN LAB CONTAINS ADDITIONAL TEST SITE INFORMATION. (Normal) ACID FAST BACILLUS SMEARNO ACID-FAST BACILLI OBSERVED ON SMEAR. 73-Rbl-812489:23 CUFST FUNST See Note Comments: TESTING PERFORMED AT [facility]. ORIGINAL REPORT ONFILE IN LAB CONTAINS ADDITIONAL TEST SITE INFORMATION. (Normal) FUNGUS STAIN No yeast or mold observed. CUF See Note Comments: TESTING PERFORMED AT [facility]. ORIGINAL REPORT ONFILE IN LAB CONTAINS ADDITIONAL TEST SITE INFORMATION. (Normal) CULTURE, FUNGUSNO YEAST OR MOLD ISOLATED AFTER 4 WEEKS. 87-Onf-321681:21 AFBCS tAFBC See Note Comments: TESTING PERFORMED AT [facility]. ORIGINAL REPORT ONFILE IN LAB CONTAINS ADDITIONAL TEST SITE INFORMATION. (Normal) CULTURE, ACID FAST FINAL CULTURE REPORT TO FOLLOW IN 6 WEEKS. tAFBSF See Note Comments: TESTING PERFORMED AT [facility]. ORIGINAL REPORT ONFILE IN LAB CONTAINS ADDITIONAL TEST SITE INFORMATION. (Normal) ACID FAST BACILLUS SMEARAcid Fast Smear from Concentrated Specimen :Negative 55-Kgj-200335:21 CUFST FUNST See Note Comments: TESTING PERFORMED [...] ay REPORT -2 (Normal) 39 :0 0 22-Izi-672473:05 WARREN CULTURE-OTHER (19476) Comments: PATIENT NOT FASTINGPERFORMED BY: [facility] Rduuvp9235 [facility] [id number] Information: SRC: THROAT Result 1 RRF (Normal) Comments: Routine respiratory ashkan Upper Respiratory Culture Final report (Normal) 82-Hzc-748554:23 Rapid Strep Test, Office (00051) Rapid Strep Test, Office Negative (Normal) 6-Fnd-837751:15 CBCMD RBCM NORM C+C {NORMAL} (Normal) PE [...] 4.6-6.2 WBC 8.3 K/mm3 (Normal) Range: 4.4-11.0 0-Aus-376571:15 CMP GAP 10 (Normal) Range: 5-15 CO2 [...] 7-18 GLU 81 mg/dL (Normal) Range: 70-110 9-Bob-021738:15 LIPID VLDL 12 mg/dL (Normal) Range: 5-40 [...] Alvarado M.D.January 27, 2012 at 2:39:03 PM [id number] Signed GP/GP If you are the refe rring physician and would like to consult with theradiologist who provided this interpretation, please contact Itzel Linares at [phone]. If this radiologist is unavailable, youwill be dir ected to another radiologist to assist. If you are a patient with a question regarding this report, pleasecontactyour referring physician directly. Professional Interpretation Provided By: [employer], Phone , These documents contain legally protected [...] Schwarz D.O.January 26, 2012 at 8:55:02 PM [id number] Signed BE/B E If you are the referring physician and would like to consult with theradiologist who provided this interpretation, please contact Yogi Schwarz D.O. at [phone]. If this radiologist is unavailable, yo u will bedirected to another radiologist to assist. If you are a patient with a question regarding this report, pleasecontactyour referring physician directly. Professional Interpretation Provided By: [employer], Phone , These documents contain legally protected [...] 01/26/12 2100 Sign by: Yogi Schwarz MD 33-Pcs-596911:13 CUSP RESPC See Note (Normal) Comments: No [...] GRAM POSITIVE COCCI IN CHAINS AND CLUSTERS 54-Rsh-420277:56 HgA1C , Office (20701) HgA1C , Office 6.1 % (Normal) Range: 4.6 - 7.1 :56 Blood Glucose , Office (44667) Blood Glucose , Office 116 (Normal) : [...] 7-18 GLU 107 mg/dL (Normal) Range: 70-110 36-Naz-995981:25 LIPID VLDL 12 mg/dL (Normal) Range: 5-40 [...] performed using the TPSA assay method for theData Virtuality chemistry system. Values obtained with differentassay methods cannot be used interchangably.When ch anging PSA assays in the course of monitoring apatient, additional sequential testing should be carriedout to confirm baseline values. 70-Vvy-816502:25 UAC UMUC 0 SEEN {/hpf} (Normal) UBAC [...] UCOL YELLOW (Normal) :44 HgA1C , Office (59997) HgA1C , Office 6.3 % (Normal) Range: 4.6 - 7.1 :44 Blood Glucose , Office (33639) Blood Glucose , Office 114 (Normal) :13 HgA1C , Office (16018) HgA1C , Office 6.2 % (Normal) Range: 4.6 - 7.1 :13 Blood Glucose , Office (17201) Blood Glucose , Office 100 (Normal) :55 HgA1C , Office (62458) HgA1C , Office 5.8 % (Normal) Range: 4.6 - 7.1 :55 Blood Glucose , Office (55563) Blood Glucose , Office 85 (Normal) :51 WARREN CULTURE-OTHER (76970) Comments: PATIENT NOT FASTINGPERFORMED BY: [facility]6370 [facility] [id number] Information: SRC:THRDaljit Q02671 Result 1 Yeast isolated. (Normal) Comments: Heavy growthRequest for further identification must be madewithin 1 week. Upper Respiratory Culture Final report (Normal) :14 Rapid Strep Test, Office (54273) Rapid Strep Test, Office Negative (Normal) :24 [...] serialsampling is recomme nded. TESTING PERFORMED AT [facility]. ORIGINAL REPORT ON FILE IN LAB CONTAINS [...] cells for the productionof interferon gamma.Performed at: [facility] Lab[address] [id number] Director: Joseph Velez MD, Phone: [phone] QFT AG - NIL 0 {IU/mL} (Normal) [...] of Hgb A1C has changed to SIEMENS AppsperseTANo significant changes in patient results are expected. [...] >240 mg/dL High Risk :03 VIT D,25 96314 38.0 ng/mL (Normal) Comments: appt 03-08-10 Range: 32.0-100.0 Comments: Effective January 11, 2011 Vitamin D, 25-Hydroxy reference intervals will be changing to 30-100. .Recent studies consider the lower li chilo of 32.0 ng/mL to be athreshold for optimal health.Mark LUDWIG. J Nutr. 2004;135(2):317-22.Performed at: - Lab[address] Director: Lakshmi Pino MD, Phone: [phone] VITAMIN B12 696 pg/mL (Normal) Range: 254-1320 Comments: There is a low frequency possibility that high titers ofintrinsic blocking antibodies may not be completely inactivated during the reaction pretreatment stepof this testing method. If test results are i n conflictwith the clinical diagnosis, patient should be testedfor the presence of intrinsic factor blocking antibodies. 95-Mmq-862132:05 Rapid Strep Test, Office (80972) Rapid Strep Test, Office Negative (Normal) :00 CULTURE, THROAT See Note (Normal) Comments: Normal throat ashkan isolated. No beta-hemolyticstreptococcus isolated. 27-Sif-40854:00 CHEST WITHOUT CONTRAST Radiology Report See Note [...] 10/11/10 0244 Sign by: Clarke Butt MD 71-Emk-440289:58 GALLBLADDER Radiology Report See Note (Normal) Comments: [...] 10/08/10 1402 Sign by: Christiano CALVO Rakesh 67-Uua-63055:00 CULTURE, URINE URINE CULTURE See Note {CFU/mL} (Normal) Comments: COLONY COUNT <1000 ORGANISM 1: MIXED GRAM POSITIVE ORGANISMS 68-Xfl-240697:19 Urinalysis, Office (53883) UA - BILIRUBIN Negative (Normal) UA - BLOOD Non Hemolyzed Trace (Normal) UA - GLUCOSE Negative (Normal) UA - KETONES Negative mg/dL (Normal) UA - LEUKOCYTE ESTERASE Negative (Normal) UA - NITRITE Negative (Normal) UA - PH 7.0 (Normal) UA - PROTEIN Negative mg/dL (Normal) UA - SPECIFIC GRAVITY 1.010 (Normal) URINE UROBILINGN MASSIEL TIMED Normal mg/dL (Normal) 18-Lxw-21726:00 ABDOMEN/PELVIS WITHOUT CONT Radiology Report See Note [...] on 09/16/101715 Sign by: Cosmo Mahmood MD 04-Fon-116267:11 HgA1C , Office (78153) HgA1C , Office 6.2 % (Normal) Range: 4.6 - 7.1 :11 Blood Glucose , Office (71532) Blood Glucose , Office 90 (Normal) :28 [...] 4.6-6.2 WBC 6.8 K/mm3 (Normal) Range: 4.4-11.0 21-Sam-79304:28 COMP METABOLIC GAP 5 (Normal) Range: 5-15 [...] mg/dL High Risk :53 HgA1C , Office (43451) HgA1C , Office 6.4 % (Normal) Range: 4.6 - 7.1 :53 Blood Glucose , Office (36453) Blood Glucose , Office 108 (Normal) :39 CULTURE, URINE URINE CULTURE Culture exhibits no growth. (Normal) :54 Urinalysis, Office (07847) UA - BILIRUBIN Negative (Normal) UA - BLOOD Negative (Normal) UA - GLUCOSE Negative (Normal) UA - KETONES Negative mg/dL (Normal) UA - LEUKOCYTE ESTERASE Negative (Normal) UA - NITRITE Negative (Normal) UA - PH 7.0 (Normal) UA - PROTEIN Negative mg/dL (Normal) UA - SPECIFIC GRAVITY 1.010 (Normal) URINE UROBILINGN MASSIEL TIMED Normal mg/dL (Normal) :37 HgA1C , Office (53467) HgA1C , Office 6.1 % (Normal) Range: 4.6 - 7.1 :37 Blood Glucose , Office (69557) Blood Glucose , Office 96 (Normal) :46 [...] 4.6-6.2 WBC 7.5 K/mm3 (Normal) Range: 4.4-11.0 96-Jmk-506354:46 COMP METABOLIC GAP 7 (Normal) Range: 5-15 [...] (Normal) Range: 0.0-4.0 :22 HgA1C , Office (68806) HgA1C , Office 6.1 % (Normal) Range: 4.6 - 7.1 :22 Blood Glucose , Office (74599) Blood Glucose , Office 123 (Normal) :47 HgA1C , Office (78751) HgA1C , Office 6.3 % (Normal) Range: 4.6 - 7.1 :47 Blood Glucose , Office (99523) Blood Glucose , Office 103 (Normal) :05 [...] (Normal) GLU 107 mg/dL (Normal) Range: 70-110 68-Pvv-05639:05 LIPID HDL 58 mg/dL (Normal) Comments: Reference RangeHDL <40 mg/dL Low HDL CholesterolHDL >or= 60 mg/dL High HDL Cholesterol LDL 77 mg/dL (Normal) Range: 0-130 VLDL 7 mg/dL (Normal) Range: 5-40 CHOL 142 mg/dL (Normal) Comments: <200 mg/dL Lvnslisjf806-715 mg/dL Borderline>240 mg/dL High Risk TRIG 35 mg/dL (Normal) Comments: Serum Triglycerides Reference IntervalNormal <150 mg/dLBorderline high 150 - 199 mg/dLHigh 200 - 499 mg/ dLVery High > or = 500 mg/dL 2-Pvl-453771:24 HgA1C , Office (74207) HgA1C , Office 6.2 % (Normal) Range: 4.6 - 7.1 8-Oxr-545042:23 Blood Glucose , Office (53425) Blood Glucose , Office 96 (Normal) 50-Hzq-168564:07 GASTRIC EMPTYING STUDY Radiology Report See Note (Normal) Comments: Exam Number: [id number] GASTRIC EMPTYING STUDY A gastric emptying study was performed. The patient ingested 1 mCi obQa62h Sulfur colloid with oatmeal. HISTORYThis is a 58-year-old male patie nt with hist ory of bloating andgastroesophageal reflux. FINDINGSAt 1 hour, there is complete emptying of the stomach of theradiopharmaceutical. This is a normal study. IMPRESSIONNormal examination. There is no e vidence of gastric retention. Reported By: WILFREDO ALVARADO :33 HgA1C , Office (50893) HgA1C , Office 5.9 % (Normal) Range: 4.6 - 7.1 :33 Blood Glucose , Office (53540) Blood Glucose , Office 111 (Normal) :08 [...] Range: 0.0-4.0 :46 Blood Glucose , Office (98792) Blood Glucose , Office 156 (Normal) :46 HgA1C , Office (77676) HgA1C , Office 5.8 % (Normal) Range: 4.6 - 7.1 :12 HgA1C , Office (71725) Comments: done HgA1C , Office 5.8 % (Normal) Range: 4.6 - 7.1 :12 Blood Glucose , Office (80076) Comments: done Blood Glucose , Office 99 [...] mg/dL (Normal) Range: 200-370 Comments: Performed At: [address] [id number] Blood Glucose , Office (70126) Blood Glucose , Office 92 (Normal) :44 HgA1C , Office (86451) HgA1C , Office 5.7 % (Normal) Range: 4.6 - 7.1 :40 GLU GTT-2 HOUR 191 mg/dL (Abnormal) Comments: 2HR GTT GLU 2 HR GLU GTT-2 HOUR from 216:[id number]. Range: 70-120 :20 GLU GTT-1 HOUR 178 mg/dL (Abnormal) Comments: 2HR GTT GLU 1 HR GLU GTT-1 HOUR from 216:H27223W. Range: 120-170 :40 GLU GTT-30 min. 183 mg/dL (Abnormal) Comments: 2HR GTT GLU 1/2 HR GLU GTT-30 min. from 216:[id number]. Range: 110-170 :01 GLU GTT-FASTING 106 mg/dL (Normal) Comments: 2HR GTT FASTING GLU GTT-FASTING from 216:H80888S. Range: 70-110 Comments: GLUCOSE TOLERANCE TEST Reference [...] was performed using the TPSA method for theData Virtuality chemistry system.Values obtained with different assay methods [...] :12 TSH 1.38 {uIU/mL} (Normal) Range: 0.34-4.82 40-Smv-11464:03 CHEST WITH CONTRAST Radiology Report See Note (Normal) Comments: Exam Number: [id number] CHEST CT WITH INTRAVENOUS CONTRAST. REASON FOR [...] No growth in 5 6:14 days. (Normal) 3-Oem-827563:14 CBCD,SMEAR DIFF BAND 1 % (Normal) Range: [...] 47-70 WBC 5.6 K/mm3 (Normal) Range: 4.4-11.0 2-Xxf-328772:14 COMP METABOLIC A/G 1.2 {RATIO} (Normal) Range: [...] T PROT 6.3 g/dL (Abnormal) Range: 6.4-8.2 15-Wwg-748647:19 EBVIgG/M 939999 EB-EA IgG 51658 79 AU/mL (Normal) Range: 0-99 Comments: Negative <100 Equivocal 100 - 120 Positive >120 EB-NAg [id number] 656 AU/mL (Abnormal) Range: 0-99 Comments: Negative <100 Equivocal 100 - 120 Positive >120 EB-VCA [id number] 2296 AU/mL (Abnormal) Range: 0-99 Comments: Negative <100 Equivocal 100 - 120 Positive >120 EB-VCA [id number] 9 AU/mL (Normal) Range: 0-99 Comments: Negative [...] Antibody Present - Antibody AbsentPerformed At: [facility] [place], [place] [id number] 03-Gjx-767395:00 CULTURE, THROAT See Note (Normal) Comments: Normal throat ashkan isolated. No beta-hemolyticstreptococcus isolated. 75-Vif-170630:35 Rapid Strep Test, Office (01948) Rapid Strep Test, Office Negative (Normal) :40 [...] SJ:rin 11/09/06 TC:5 REPORT SIGNED: PAMELLA SON 11/10/0607-Nov-200620-Zyr-561532:55 ALDOLASE 2030 2.3 U/L (Normal) Range: 1.2-7.6 Comments: Performed At: [facility] [place], [place] [id number] At: [facility] [id number] 22-Uqr-924888:55 JOHN-D [id number] JOHN-DIRECT 9 U/mL (Normal) Range: 0-99 Comments: [...] 4.9 {IU/mL} (Normal) Range: 0.0-13.9 :55 TESTOST [id number] TESTOSTER %FREE 2.87 % (Normal) Range: 1.50-4.20 [...] Report See Note (Normal) Comments: Exam Number: [id number] TESTICULAR ULTRASOUND HISTORYTesticular swelling. High resolution real [...] Reported By: MAYELIN DE LA FUENTE M.D. 4-Wmj-090810:45 HIP, MIN 2 VIEWS Radiology Report See Note (Normal) Comments: Exam Number: [id number] FIVE VIEW LUMBAR SPINE AP, LATERAL, BOTH [...] Report See Note (Normal) Comments: Exam Number: [id number] FIVE VIEW LUMBAR SPINE AP, LATERAL, BOTH [...] Report See Note (Normal) Comments: Exam Number: [id number] FIVE VIEW LUMBAR SPINE AP, LATERAL, BOTH [...] degenerative changes. Reported By: REMIGIO PURCELL M.D. 44-Zwp-024537:43 CHEST, PA AND LATERAL Radiology Report See Note (Normal) Comments: Exam Number: [id number] PA AND LATERAL CHEST HISTORYShortness of breath. [...] 15, 2005. Reported By: EDVIN MARIE M.D. 22-Zkp-274306:25 ALDOLASE 2030 3.0 U/L (Normal) Range: 1.2-7.6 Comments: Performed At: [address] [id number] 10-Fop-500886:25 JOHN-D [id number] JOHN-DIRECT 46 U/mL (Normal) Range: 0-99 Comments: Negative <100 Equivocal 100 - 120 Positive >120 :25 C-REACTIVE PROT 1.07 mg/L (Normal) Range: 0.0-6.0 Comments: Test performed using the Dimension C-Reactive ProteinExtended Range assay method. This assay meets the AHA/CDC 2003 recommendations fordetermining patients at high risk for cardiovasculardisease. Reference: High risk CRP >3.0 mg/L 66-Wgk-274161:25 CBCD BASO% 0.4 % (Normal) Range: 0-1 [...] CPK TOTAL 172 U/L (Normal) Range: 35-232 66-Fkr-118346:25 ESR SED RATE 13 mm/h (Normal) Range: [...] morphology Planned Observations CBC W/AUTO DIFF WBC (02583)Indication: Hypertension, benign On: 72-Xij-12088:51 Request METABOLIC PANEL, COMPREHENSIVE (33371)Indication: Hypertension, benign On: 35-Jtl-70049:51 Request LIPID PANEL (50793)Indication: Other hyperlipidemia On: :50 Request CULTURE,FUNGUS W/STAIN [id number] (00690)Indication: Bronchiectasis On: :59 Request CULTURE, SPUTUM (29802)Indication: Moderate persistent asthma without complication On: :21 Request HGB A1C (65850)Indication: Abnormal glucose tolerance test On: :10 Request CBC with auto diff (43733)Indication: Abnormal glucose tolerance test On: :10 Request METABOLIC PANEL, COMPREHENSIVE (26147)Indication: Abnormal glucose tolerance test On: : Request LIPID PANEL (41059)Indication: Other hyperlipidemia On: : Request PSA (PROSTATE SPECIFIC ANTIGEN) (V76.44)Indication: Encounter for screening for malignant neoplasm of prostate (Renamed from Screening for prostate cancer) On: :09 Request METABOLIC PANEL, COMPREHENSIVE (94224)Indication: Essential hypertension On: 9-Und-030938:58 Request CBC with auto diff (28981)Indication: Hypertension, benign On: :53 Request METABOLIC PANEL, COMPREHENSIVE (27655)Indication: Abnormal glucose tolerance test On: :52 Request MICROALBUMIN: CREATININE RATIO (93095) AND (67259)Indication: Abnormal glucose tolerance test On: :52 Request HGB A1C (61124)Indication: Abnormal glucose tolerance test On: :52 Request LIPID PANEL (91738)Indication: Other hyperlipidemia On: :52 Request LIPID PANEL (40834)Indication: Other hyperlipidemia On: 8-Zxl-182245:30 Request CBC W/AUTO DIFF WBC (03275)Indication: Hypertension, benign On: :29 Request METABOLIC PANEL, COMPREHENSIVE (05467)Indication: Hypertension, benign On: 5-Cew-232520:29 Request IMMUNOGLOBULIN G (IgG) (35589)Indication: Abnormal blood chemistry On: 43-Uiw-895027:02 Request Comments: PLEASE DRAW WITH OTHER LABS IN 2016 serum free light chains (41748)Indication: Abnormal blood chemistry On: :40 Request serum immunofixation (24297)Indication: Abnormal blood chemistry On: Request PSA (PROSTATE SPECIFIC ANTIGEN) (V76.44)Indication: Encounter for screening for malignant neoplasm of prostate (Renamed from Screening for prostate cancer) On: 40 Request LIPID PANEL (71137)Indication: Other hyperlipidemia On: Request CBC with auto diff (08156)Indication: Abnormal glucose tolerance test On: 39 Request METABOLIC PANEL, COMPREHENSIVE (68667)Indication: Abnormal glucose tolerance test On: Request MICROALBUMIN: CREATININE RATIO (36607) AND (13014)Indication: Abnormal glucose tolerance test On: 39 Request HGB A1C (36930)Indication: Abnormal glucose tolerance test On: Request LIPID PANEL (54163)Indication: Other hyperlipidemia On: :58 Request urine immunofixation (38583)Indication: Abnormal blood chemistry On: :34 Request serum immunofixation (03533)Indication: Abnormal blood chemistry On: :34 Request MICROALBUMIN: CREATININE RATIO (89461) AND (69486)Indication: Abnormal glucose tolerance test On: :32 Request HGB A1C (42048)Indication: Abnormal glucose tolerance test On: :32 Request CBC W/AUTO DIFF WBC (34938)Indication: Hypertension, benign On: :30 Request METABOLIC PANEL, COMPREHENSIVE (75004)Indication: Hypertension, benign On: :30 Request LIPID PANEL (59520)Indication: Other hyperlipidemia On: :30 Request LIPOPROTEIN, BLD, BY NMR (98722)Indication: Other hyperlipidemia On: :14 Request CBC WITH MANUAL DIFF (97109)Indication: Essential hypertension On: 67-Dgn-030205:14 Request Metabolic Panel, Comprehensive (50234)Indication: Essential hypertension On: 65-Bel-809692:14 Request CBC W/AUTO DIFF WBC (12883)Indication: Abnormal glucose tolerance test On: Request LIPOPROTEIN, BLD, BY NMR (61896)Indication: Other hyperlipidemia On: Request METABOLIC PANEL, COMPREHENSIVE (49074)Indication: Abnormal glucose tolerance test On: : Request Anti-TPO Antibody (49382)Indication: Abnormal blood chemistry On: Request T4, FREE (THYROXINE) (52111)Indication: Abnormal blood chemistry On: Request T3, FREE (TRIDOTHYRONINE) (70166)Indication: Abnormal blood chemistry On: Request TSH (71396)Indication: Abnormal blood chemistry On: Request P-ANCA & C-ANCA (ANCA PROFILE) 74267 x2 and 90323 x9Vyxzpeeecm: Acute recurrent maxillary sinusitis On: Request JOHN (ANTINUCLEAR ANTIBODY) (41793)Indication: Abnormal blood chemistry On: Request RHEUMATOID FACTOR-QUANT (73474)Indication: Abnormal blood chemistry On: Request SED RATE ERYTHROCYTE (16289)Indication: Abnormal blood chemistry On: Request C-REACTIVE PROTEIN (51049)Indication: Abnormal blood chemistry On: Request CBC with auto diff (74768)Indication: Hypertension, benign On: : Request MICROALBUMIN: CREATININE RATIO (25787) AND (47384)Indication: Abnormal glucose tolerance test On: Request METABOLIC PANEL, COMPREHENSIVE (00395)Indication: Abnormal glucose tolerance test On: : Request HGB A1C (72588)Indication: Abnormal glucose tolerance test On: Request METABOLIC PANEL, COMPREHENSIVE (92269)Indication: Hypertension, benign On: Request LIPID PANEL (73956)Indication: Other hyperlipidemia On: Request PSA (PROSTATE SPECIFIC ANTIGEN) (V76.44)Indication: Encounter for screening for malignant neoplasm of prostate (Renamed from Screening for prostate cancer) On: 07-Gpj-357677:59 Request Factor 2 (Prothrombin) Gene Mutation (23997)Indication: Other symptoms involving cardiovascular system On: 7-Sax-944916:13 Request MICROALBUMIN: CREATININE RATIO (98710) AND (10784)Indication: Abnormal glucose tolerance test On: :53 Request HGB A1C (58637)Indication: Abnormal glucose tolerance test On: :53 Request LIPID PANEL (67835)Indication: Other hyperlipidemia On: :53 Request CBC W/AUTO DIFF WBC (47051)Indication: Hypertension, benign On: :53 Request METABOLIC PANEL, COMPREHENSIVE (20193)Indication: Hypertension, benign On: :53 Request CBC with auto diff (82053)Indication: Hypertension, benign On: 4-Eeh-931542:25 Request METABOLIC PANEL, COMPREHENSIVE (98883)Indication: Hypertension, benign On: :25 Request LIPID PANEL (56880)Indication: Other hyperlipidemia On: 7-Jlq-208000:25 Request Factor V Leiden (27729)Indication: Deep vein thrombosis of lower extremity On: 99-Eyy-539621:24 Request CLOTTING FACTOR II (06486)Indication: Deep vein thrombosis of lower extremity On: 37-Lmd-609032:24 Request ANTITHROMBIN III ACTIVTY (53054)Indication: Deep vein thrombosis of lower extremity On: 29-Neq-422675:24 Request Antiphospholipid atb (39162)Indication: Deep vein thrombosis of lower extremity On: 34-Akp-163516:24 Request Protein C Profile (75217)Indication: Deep vein thrombosis of lower extremity On: 95-Bzd-811098:24 Request Protein S Profile (85248)Indication: Deep vein thrombosis of lower extremity On: 83-Nga-626586:24 Request Hemoglobin Glyclated (HGB A1C) (08904)Indication: Abnormal glucose tolerance test On: 39-Lqf-169425:23 Request CBC W/AUTO DIFF WBC (99751)Indication: Abnormal glucose tolerance test On: :43 Request MICROALBUMIN: CREATININE RATIO (86994) AND (11745)Indication: Abnormal glucose tolerance test On: :43 Request METABOLIC PANEL, COMPREHENSIVE (41364)Indication: Abnormal glucose tolerance test On: :43 Request LIPID PANEL (96010)Indication: Other hyperlipidemia On: :43 Request DNA ANTIBODY-NATV/DBL ST (88391)Indication: Heart disease, unspecified On: 33-Pfj-768948:02 Request METABOLIC PANEL, COMPREHENSIVE (81806)Indication: Essential hypertension On: 28-Eka-702906:31 Request LIPID PANEL (23354)Indication: Other hyperlipidemia On: 93-Gds-123516:31 Request Hemoglobin Glyclated (HGB A1C) (65454)Indication: Abnormal glucose tolerance test On: 53-Kvp-680413:31 Request PSA (PROSTATE SPECIFIC ANTIGEN) (V76.44)Indication: Benign prostatic hyperplasia with lower urinary tract symptoms, unspecified morphology On: 88-Hki-209055:52 Request MICROALBUMIN: CREATININE RATIO (83579) AND (79388)Indication: Abnormal glucose tolerance test On: :50 Request Hemoglobin Glyclated (HGB A1C) (97030)Indication: Abnormal glucose tolerance test On: 81-Fmi-936002:50 Request URINE WARREN CULTURE (MASSIEL COL COUNT) (16404)Indication: Muscle weakness On: :48 Request URINALYSIS, W/ MICRO (32460)Indication: Muscle weakness On: :48 Request CBC with auto diff (62942)Indication: Muscle weakness On: :48 Request JOHN (ANTINUCLEAR ANTIBODY) (42228)Indication: Muscle weakness On: :48 Request SED RATE ERYTHROCYTE (43039)Indication: Muscle weakness On: :48 Request C-REACTIVE PROTEIN (73239)Indication: Muscle weakness On: :48 Request TSH (28159)Indication: Muscle weakness On: :48 Request LIPID PANEL (49467)Indication: Other hyperlipidemia On: 21-Hmo-025105:47 Request METABOLIC PANEL, COMPREHENSIVE (10870)Indication: Other hyperlipidemia On: 34-Oyx-549225:46 Request URINE WARREN CULTURE-MASSIEL COL COUNT (79810)Indication: Other abnormal finding of urine On: :42 Request LIPID PANEL (23164)Indication: Other hyperlipidemia On: :44 Request CBC W/AUTO DIFF WBC (53535)Indication: Essential hypertension On: :44 Request METABOLIC PANEL, COMPREHENSIVE (96581)Indication: Essential hypertension On: :44 Request URINE WARREN CULTURE-MASSIEL COL COUNT (61306)Indication: Other abnormal finding of urine On: 1-Ges-751432:00 Request Comments: ADD ON MICROALBUMIN: CREATININE RATIO (23233) AND (59201)Indication: Essential hypertension On: : Request URINALYSIS, W/ MICRO (10453)Indication: Essential hypertension On: : Request METABOLIC PANEL, COMPREHENSIVE (78945)Indication: Essential hypertension On: :02 Request LIPID PANEL (41900)Indication: Other hyperlipidemia On: : Request CBC WITH MANUAL DIFF (72607)Indication: Iron deficiency On: : Request URINE WARREN CULTURE (MASSIEL COL COUNT) (19066)Indication: Fatigue On: 74-Dyx-083481:46 Request MICROALBUMIN: CREATININE RATIO (22073) AND (30581)Indication: Abnormal glucose tolerance test On: 51-Use-964061:46 Request Hemoglobin Glyclated (HGB A1C) (12599)Indication: Abnormal glucose tolerance test On: 51-Aiz-840202:46 Request IRON BINDING CAPACITY (TIBC) (44382)Indication: Anemia, unspecified On: 10-Lku-277830:42 Request FERRITIN (52047)Indication: Anemia, unspecified On: 76-Whh-793053:42 Request IRON (85927)Indication: Anemia, unspecified On: 44-Crv-122604:42 Request VITAMIN B-12 (CYANOCOBALAMIN) (81520)Indication: Fatigue On: :42 Request CBC (AUTO) (28053)Indication: Fatigue On: :42 Request TSH (90786)Indication: Fatigue On: :42 Request Vitamin D Hydroxy (91427)Indication: Fatigue On: :42 Request EBV Panel (37393)Indication: Fatigue On: 50-Lrr-923999:42 Request FERRITIN (57895)Indication: Anemia, unspecified On: : Request IRON (93433)Indication: Anemia, unspecified On: : Request MICROALBUMIN: CREATININE RATIO (28493) AND (68197)Indication: Abnormal glucose tolerance test On: : Request METABOLIC PANEL, COMPREHENSIVE (38291)Indication: Abnormal glucose tolerance test On: : Request LIPID PANEL (18213)Indication: Other hyperlipidemia On: : Request CBC WITH MANUAL DIFF (68283)Indication: Anemia, unspecified On: : Request FERRITIN (36010)Indication: Anemia, unspecified On: 1-Cqs-085699:15 Request IRON (38976)Indication: Anemia, unspecified On: :14 Request LIPID PANEL (82707)Indication: Essential hypertension On: : Request METABOLIC PANEL, COMPREHENSIVE (56560)Indication: Essential hypertension On: :14 Request CBC WITH MANUAL DIFF (38667)Indication: Essential hypertension On: :14 Request UPEP (97634)Indication: BRONCHITIS, NOT SPECIFIED ACUTE OR CHRONIC (490.) On: Request Protein Electrophoresis, Serum (SPEP) (57389)Indication: BRONCHITIS, NOT SPECIFIED ACUTE OR CHRONIC (490.) On: Request IGA/IGD/IGG/IGM-EACH (17804)Indication: BRONCHITIS, NOT SPECIFIED ACUTE OR CHRONIC (490.) On: Request URINALYSIS, W/ MICRO (26713)Indication: Anemia, unspecified On: : Request CBC WITH MANUAL DIFF (87381)Indication: Anemia, unspecified On: Request FOLIC ACID SERUM (78380)Indication: Anemia, unspecified On: : Request VITAMIN B-12 (CYANOCOBALAMIN) (94020)Indication: Anemia, unspecified On: Request RETICULOCYTE COUNT MANUL (16956)Indication: Anemia, unspecified On: Request LDH (LD) (LACTATE DEHYDROGENASE) (64221)Indication: Anemia, unspecified On: Request IRON BINDING CAPACITY (TIBC) (24569)Indication: Anemia, unspecified On: : Request IRON (05627)Indication: Anemia, unspecified On: Request FERRITIN (16804)Indication: Anemia, unspecified On: Request PSA (PROSTATE SPECIFIC ANTIGEN) (V76.44)Indication: Screening for prostate cancer On: :36 Request LIPID PANEL (66431)Indication: Abnormal glucose tolerance test On: Request CBC WITH MANUAL DIFF (86180)Indication: Hypertension, benign On: Request METABOLIC PANEL, COMPREHENSIVE (75478)Indication: Hypertension, benign On: Request SED RATE ERYTHROCYTE (30487)Indication: Rash On: : Request C-REACTIVE PROTEIN (72845)Indication: Rash On: : Request RHEUMATOID FACTOR-QUANT (54592)Indication: Rash On: Request JOHN (ANTINUCLEAR ANTIBODY) (14611)Indication: Rash On: :22 Request CULTURE, SPUTUM (50229)Indication: Cough On: 31-Tdq-696146:20 Request HgA1C , Office (07422)Indication: Abnormal glucose tolerance test On: 25-Cpi-691169:57 Request CULTURE, SPUTUM (31795)Indication: Cough On: 52-Qht-520086:39 Request ACID FAST STAIN (AFB) (84553)Indication: Cough On: 10-Vhk-168563:38 Request TSH (27891)Indication: Other hyperlipidemia On: :21 Request URINALYSIS, W/ MICRO (75300)Indication: Essential hypertension On: :21 Request CBC WITH MANUAL DIFF (29754)Indication: Abnormal glucose tolerance test On: : Request METABOLIC PANEL, COMPREHENSIVE (56669)Indication: Abnormal glucose tolerance test On: :21 Request MICROALBUMIN: CREATININE RATIO (30030) AND (77243)Indication: Abnormal glucose tolerance test On: :21 Request LIPID PANEL (02061)Indication: Other hyperlipidemia On: :20 Request CBC WITH MANUAL DIFF (40137)Indication: Abnormal glucose tolerance test On: 64-Pmn-553803:26 Request METABOLIC PANEL, COMPREHENSIVE (93264)Indication: Abnormal glucose tolerance test On: 32-Sns-412441:26 Request CULTURE, SPUTUM (51205)Indication: Cough On: 54-Idn-350181:18 Request LIPID PANEL (38831)Indication: Other hyperlipidemia On: 64-Bbp-172142:14 Request TSH (58706)Indication: Swelling of limb On: :58 Request METABOLIC PANEL, COMPREHENSIVE (01922)Indication: Swelling of limb On: 94-Ytf-30105:58 Request CBC WITH MANUAL DIFF (33310)Indication: Swelling of limb On: :58 Request BNTP (79397)Indication: Swelling of limb On: :58 Request CULTURE, SPUTUM (63767)Indication: Cough On: 69-Zsa-27611:56 Request PSA (PROSTATE SPECIFIC ANTIGEN) (V76.44)Indication: Screening for prostate cancer On: 94-Igi-968643:19 Request URINALYSIS, W/ MICRO (20926)Indication: Abnormal glucose tolerance test On: 44-Ffm-672929:18 Request MICROALBUMIN: CREATININE RATIO (98928) AND (20278)Indication: Abnormal glucose tolerance test On: 00-Dnk-068277:18 Request METABOLIC PANEL, COMPREHENSIVE (99989)Indication: Essential hypertension On: 44-Aik-767006:18 Request LIPID PANEL (67652)Indication: Other hyperlipidemia On: 78-Ead-680192:18 Request PSA (PROSTATE SPECIFIC ANTIGEN) (V76.44)Indication: Screening for prostate cancer On: :40 Request MICROALBUMIN: CREATININE RATIO (75277) AND (82144)Indication: Abnormal glucose tolerance test On: :40 Request METABOLIC PANEL, COMPREHENSIVE (15934)Indication: Abnormal glucose tolerance test On: :40 Request Urine Protein Electrophoresis (UPEP) (33680)Indication: recurrent uri On: :39 Request Serum Protein Electrophoresis (SPEP) (87915)Indication: recurrent uri On: 38-Rrz-026516:39 Request IMMUNOGLOBULIN E (IgE) (99521)Indication: Asthma, intrinsic, with status asthmaticus On: 55-Qba-756377:39 Request IGA/IGD/IGG/IGM-EACH (43671)Indication: Asthma, intrinsic, with status asthmaticus On: 15-Xoc-610056:39 Request LIPID PANEL (10894)Indication: Other hyperlipidemia On: 02-Nxr-982232:38 Request ASPERGILLUS AG, EIA (13888)Indication: Cough On: :58 Request SED RATE ERYTHROCYTE (98972)Indication: Cough On: :48 Request C-REACTIVE PROTEIN (05170)Indication: Cough On: :48 Request CBC WITH MANUAL DIFF (51682)Indication: Cough On: :47 Request Quantiferron gold test (47708)Indication: Cough On: :45 Request CULTURE, SPUTUM (85330)Indication: Cough On: 67-Cdu-426790:45 Request VITAMIN B-12 (CYANOCOBALAMIN) (89191)Indication: Fatigue On: :20 Request Vitamin D Hydroxy (87291)Indication: Fatigue On: 63-Cxu-839649:20 Request CBC WITH MANUAL DIFF (17663)Indication: Abnormal glucose tolerance test On: :19 Request METABOLIC PANEL, COMPREHENSIVE (98953)Indication: Abnormal glucose tolerance test On: :19 Request LIPID PANEL (14195)Indication: Other hyperlipidemia On: :19 Request URINALYSIS, W/ MICRO (52788)Indication: Abnormal glucose tolerance test On: :19 Request HEMOGLOBIN GLYCLATED (HGB A1C) (66929)Indication: Abnormal glucose tolerance test On: :19 Request WARREN CULTURE-OTHER (06346)Indication: Pharyngitis, acute On: 00-Nts-945795:05 Request URINE WARREN CULTURE-MASSIEL COL COUNT (58403)Indication: Abdominal pain, acute, right lower quadrant On: :19 Request CBC WITH MANUAL DIFF (83606)Indication: Abnormal glucose tolerance test On: :08 Request METABOLIC PANEL, COMPREHENSIVE (48910)Indication: Abnormal glucose tolerance test On: :08 Request TSH (26201)Indication: Fatigue On: :02 Request CBC WITH MANUAL DIFF (64027)Indication: Abnormal glucose tolerance test On: :45 Request METABOLIC PANEL, COMPREHENSIVE (04910)Indication: Hypertension, benign On: :45 Request LIPID PANEL (98668)Indication: Other hyperlipidemia On: :45 Request METABOLIC PANEL, COMPREHENSIVE (71509)Indication: Essential hypertension On: :16 Request LIPID PANEL (72423)Indication: Other hyperlipidemia On: :15 Request URINE WARREN CULTURE-MASSIEL COL COUNT (73179)Indication: Calcium kidney stone On: :54 Request PSA (PROSTATE SPECIFIC ANTIGEN) (V76.44)Indication: Enlarged prostate with lower urinary tract symptoms On: :09 Request METABOLIC PANEL, COMPREHENSIVE (63077)Indication: Abnormal glucose tolerance test On: :09 Request CBC WITH MANUAL DIFF (98869)Indication: Abnormal glucose tolerance test On: :09 Request LIPID PANEL (86886)Indication: Other hyperlipidemia On: 50-Ive-284772:09 Request MICROALBUMIN: CREATININE RATIO (57511) AND (38776)Indication: Abnormal glucose tolerance test On: :09 Request LIPID PANEL (54923)Indication: Other hyperlipidemia On: : Request CBC WITH MANUAL DIFF (00151)Indication: Abnormal glucose tolerance test On: : Request METABOLIC PANEL, COMPREHENSIVE (92270)Indication: Abnormal glucose tolerance test On: :30 Request MICROALBUMIN: CREATININE RATIO (32630) AND (64800)Indication: Abnormal glucose tolerance test On: :28 Request METABOLIC PANEL, COMPREHENSIVE (47983)Indication: Abnormal glucose tolerance test On: : Request LIPID PANEL (52081)Indication: Other hyperlipidemia On: 8-Brm-106011:07 Request PSA (PROSTATE SPECIFIC ANTIGEN) (V76.44)Indication: Enlarged prostate with lower urinary tract symptoms On: 9-Qtu-219344:49 Request METABOLIC PANEL, COMPREHENSIVE (01783)Indication: Essential hypertension On: 2-Dcx-353156:48 Request LIPID PANEL (25809)Indication: Other hyperlipidemia On: :48 Request HEPATIC FUNCTION PANEL (05153)Indication: Other hyperlipidemia On: :21 Request LIPID PANEL (95067)Indication: Other hyperlipidemia On: 62-Lbu-006989:21 Request CBC WITH MANUAL DIFF (37513)Indication: Abnormal glucose tolerance test On: :53 Request METABOLIC PANEL, COMPREHENSIVE (73186)Indication: Abnormal glucose tolerance test On: :53 Request MICROALBUMIN: CREATININE RATIO (05268) AND (72454)Indication: Abnormal glucose tolerance test On: :53 Request HEPATIC FUNCTION PANEL (75771)Indication: Other hyperlipidemia On: :53 Request LIPID PANEL (71222)Indication: Other hyperlipidemia On: 1-Ang-598491:53 Request GLUCOSE TOLERANCE TEST (GTT) 2 hour On: 4-Ghr-066158:36 Request (03184) TSH (89662)Indication: Dizziness and giddiness On: 79-Ycc-096770:15 Request LIPID PANEL (27678)Indication: Other hyperlipidemia On: 38-Yez-379336:15 Request CBC WITH MANUAL DIFF ([id number])Indication: Dizziness and giddiness On: 33-Fmp-122363:15 Request METABOLIC PANEL, COMPREHENSIVE ([id number])Indication: Dizziness and giddiness On: 11-Lac-747165:15 Request HEPATIC FUNCTION PANEL ([id number])Indication: Other hyperlipidemia On: 70-Xpo-174358:39 Request LIPID PANEL ([id number])Indication: Other hyperlipidemia On: 18-Pmc-312829:39 Request HEPATIC FUNCTION PANEL ([id number])Indication: Other hyperlipidemia On: 36-Lbj-970903:31 Request LIPID PANEL ([id number])Indication: Other hyperlipidemia On: 00-Pig-431774:31 Request WARREN CULTURE-BLOOD ([id number])Indication: fever On: 5-Byw-288375:58 Request METABOLIC PANEL, COMPREHENSIVE ([id number])Indication: fever On: 2-Rro-421765:58 Request CBC WITH MANUAL DIFF ([id number])Indication: fever On: :58 Request WARREN CULTURE-OTHER ([id number])Indication: Pharyngitis, acute On: :35 Request PSA (Prostate Specific Antigen), Screening ([id number])Indication: Other hyperlipidemia On: :32 Request LIPID PANEL ([id number])Indication: Other hyperlipidemia On: :31 Request URINALYSIS W/O MICRO ([id number])Indication: Hypertension, benign On: :31 Request TSH ([id number])Indication: Hypertension, benign On: :31 Request CBC WITH MANUAL DIFF ([id number])Indication: Hypertension, benign On: :31 Request METABOLIC PANEL, COMPREHENSIVE ([id number])Indication: Hypertension, benign On: :31 Request Creatine Kinase Total ([id number])Indication: Myalgia and myositis On: :24 Request SED RATE ERYTHROCYTE ([id number])Indication: Arthralgia On: :23 Request C-REACTIVE PROTEIN ([id number])Indication: Arthralgia On: :23 Request RHEUMATOID FACTOR-QUANT ([id number])Indication: Arthralgia On: :23 Request JOHN (ANTINUCLEAR ANTIBODY) ([id number])Indication: Arthralgia On: :23 Request Planned Encounters Medical; [facility] 3 Month FU - On: 21-Mar-2018 8:30 [facility] Fast DO, Adelaida A Fast DO, Adelaida A Planned Procedures PNEUM VAC ADLT/IMUMNOSPR, On: 06-Dec-2017 Intent SBC/INTRM ([id number])By: Fast DO, Comments: lot: [id number]: ite/route: Татьяна del/IMamt: 0.5mLVIS signed when applicableEVER Monroy Adelaida A Fast DO, Adelaida A Cartoid DopplerBy: Fast DO Adelaida On: 06-Sep-2017 Intent A Fast DO, Adelaida A Radiology - Lumbar SpineBy: Fast On: 06-Jun-2017 Intent DO, Adelaida A Fast DO, Adelaida A ELECTROCARDIOGRAM, COMPLETE (ECG) On: 06-Jun-2017 Intent ([id number])By: Fast DO Adelaida A Flakito Comments: ekg [...] XRAY, PA & LATERAL On: 18-Jan-2017 Intent ([id number])By: Yola Witt Aerosol Treatment ([id number])By: On: 18-Jan-2017 Intent Yola Witt Solu -Medrol Injection, 125 mg On: 18-Jan-2017 Intent ([id number])By: Yola Witt Comments: solumedrol 125mg injectionlot: [id number]: 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 ELECTROCARDIOGRAM, COMPLETE (ECG) On: 05-Jan-2016 Intent ([id number])By: Adelaida Fraga DO A Flakito Comments: ekg showed normal sinus rhythym, normal axis, no acute st/t wave changes irbb DO, Adelaida A Solu -Medrol Injection, 125 mg On: 09-May-2015 Intent ([id number])By: Samantha Grewal CNP Comments: lot: [id number]: ite/route:RGM/IMamt: 2mLVIS signed when applicableEVER Dumont Aerosol Treatment ([id number])By: On: 09-May-2015 Intent 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, Tracey Radiology - Chest- PA and LatBy: [...] A Fast DO, Adelaida A Pulse Oximetry ([id number])By: Flakito On: 26-Aug-2014 Intent DO, Adelaida A Fast DO, Adelaida A Comments: 94%- recheck 95 Aerosol Treatment ([id number])By: On: 10-Apr-2014 Intent Tracey Young LPN Eprescribed prescriptions On: 25-Jul-2013 Intent ([id number])By: Fast DO, Adelaida A Fast DO, Adelaida A Pulse Oximetry ([id number])By: Flakito On: 02-Jul-2013 Intent DO, Adelaida A Fast DO, Adelaida A Comments: 97% Aerosol Treatment ([id number])By: On: 25-Jun-2013 Intent Samantha Grewal CNP Eprescribed prescriptions On: 25-Jun-2013 Intent ([id number])By: Samantha Grewal CNP Eprescribed prescriptions On: 02-Apr-2013 Intent ([id number])By: Leigh Ann Polk Aerosol Treatment ([id number])By: On: 26-Mar-2013 Intent Samantha Grewal CNP Eprescribed prescriptions On: 26-Mar-2013 Intent ([id number])By: Eliana Carter Eprescribed prescriptions On: 25-Dec-2012 Intent ([id number])By: Leigh Ann Polk Aerosol Treatment ([id number])By: On: 06-Nov-2012 Intent Samantha Grewal CNP Eprescribed prescriptions On: 06-Nov-2012 Intent ([id number])By: Eliana Carter Ear Irrigation ([id number])By: Carmina On: 25-Sep-2012 Intent Samantha IRVIN Comments: Ear Irrigation performed on:bilateralAmount/color removed cerumen:large amount of dark brown wax removedOUtcome:clear, pt toleratedUsed wax curettes Wax CurettesBy: Samantha Grewal CNP On: 25-Sep-2012 Intent Eprescribed prescriptions On: 22-Sep-2012 Intent ([id number])By: Elizabet Green DO Eprescribed prescriptions On: 02-Aug-2012 Intent ([id number])By: Leigh Ann Polk Pulse Oximetry ([id number])By: Flakito On: 30-Jun-2012 Intent DO, Adelaida A Fast DO, Adelaida A Comments: 97% Eprescribed prescriptions On: 12-Jun-2012 Intent ([id number])By: Fast DO, Adelaida A Fast DO, Adelaida A Spirometry ([id number])By: Felicitas, On: 17-Jan-2012 Intent Leigh Ann Comments: good effort and curve mild restriction CT - Sinuses CompleteBy: Fast DO, On: 17-Jan-2012 Intent Adelaida A Fast DO, Adelaida A PNEUM VAC ADLT/IMUMNOSPR, On: 17-Jan-2012 Intent SBC/INTRM ([id number])By: Boris, Comments: Lot:[id number]:04-25-12Dose:0.5mLRoute:IMSite:L [facility] By:CHELA signed Julia IMMUNIZ ADMNIN, 1 VAC, SNGL/COMBO On: 17-Jan-2012 Intent ([id number])By: Julia Escalante CT - ChestBy: Fast DO, Adelaida A On: 17-Jan-2012 Intent Fast DO, Adelaida A Eprescribed prescriptions On: 17-Jan-2012 Intent ([id number])By: Leigh Ann Polk Eprescribed prescriptions On: 18-Oct-2011 Intent (G8553)By: Fast DO, Adelaida A Fast DO, Adelaida A EKG ([id number])By: Fast DO, Adelaida A On: 15-Oct-2011 Intent Fast DO, Adelaida A Comments: ekg- sinus with normal axis and nsivcd and no acute changes Eprescribed prescriptions On: 09-Aug-2011 Intent ([id number])By: Fast DO, Adelaida A Fast DO, Adelaida A PFT - CompleteBy: Fast DO, Adelaida On: 08-Mar-2011 Intent A Fast DO, Adelaida A Pulse Oximetry ([id number])By: Carmina On: 02-Feb-2011 Intent Samantha IRVIN Aerosol Treatment ([id number])By: On: 02-Feb-2011 Intent Samantha Grewal CNP Radiology - Chest- PA and LatBy: On: 18-Jan-2011 Intent Fast DO, Adelaida A Fast DO, Adelaida A Pulse Oximetry ([id number])By: On: 18-Jan-2011 Intent Leigh Ann Polk Comments: 93% TDAP VACCINE >7 IM ([id number])By: On: 07-Dec-2010 Intent Leigh Ann Polk Comments: Lot #:[id number] date:mount given:0.5mlRoute: IMSite given:left deltGiven by: DANIEL Zavaleta Eprescribed prescriptions On: 07-Dec-2010 Intent (G8553)By: Fast DO, Adelaida A Fast DO, Adelaida A FLU VAC, SPLIT, >3 YEARS, On: 07-Dec-2010 Intent INTRAMUSC ([id number])By: Felicitas, Comments: received at work Leigh Ann Toradol Injection, 30 mg On: 05-Nov-2010 Intent ([id number])By: Elizabet Green DO Comments: Lot:[id number]:apr 05Amt:30mg/mlRoute:IMSite:left hip Given By: ILDA Tran Ear Irrigation ([id number])By: Peter On: 05-Nov-2010 Intent Elizabet ACKERMAN Comments: Left ear irrigated, large amt of wax removed. pt tolerated well. Eprescribed prescriptions On: 05-Nov-2010 Intent (G8553)By: Elizabet Green DO Wax CurettesBy: Peter ACKERMAN, On: 05-Nov-2010 Intent Elizabet SPECIMEN HNDLNG/TRNSPRT, OFFC > On: 05-Nov-2010 Intent LAB ([id number])By: Elizabet Green DO Nuclear Medicine - HIDA [...] call wet read DO, Adelaida A Spirometry ([id number])By: Fast DO, On: 14-Sep-2010 Intent Adelaida A Fast DO, Adelaida A Comments: good effort and curve- mild restriction Eprescribed prescriptions On: 14-Sep-2010 Intent (G8553)By: Flakito DO, Adelaida A Fast DO, Adelaida A Pulse Oximetry ([id number])By: Flakito On: 14-Sep-2010 Intent DO, Adelaida A Fast DO, Adelaida A Comments: 94-95 Radiology - Chest- PA and LatBy: On: 14-Sep-2010 Intent Fast DO, Adelaida A Fast DO, Adelaida A Pulse Oximetry ([id number])By: Carmina On: 23-Feb-2010 Intent RICKSHAW DRIVER, Anamaria Aerosol Treatment ([id number])By: On: 23-Feb-2010 Intent Ciescalin IRVIN, Anamaria Pulse Oximetry ([id number])By: Ciesa On: 26-Jan-2010 Intent RICKSHAW DRIVER, Anamaria Aerosol Treatment ([id number])By: On: 26-Jan-2010 Intent Carmina RICKSHAW DRIVER, Anamaria Spirometry ([id number])By: Felicitas, On: 29-Apr-2008 Intent Leigh Ann Comments: good effort and curve normal EKG ([id number])By: Flakito DO, Adelaida A On: 20-Apr-2007 Intent [...] ACKERMAN Adelaida A Flakito Comments: Lot #: [id number] date: 10/30Amount given: 2 gramsRoute: IMSite given: Right hip and left hipGiven by: Calin Townsend LPN DO Adelaida A Spirometry ([id number])By: Flakito ACKERMAN, On: 27-Mar-2007 Intent Adelaida A Fast DO, Adelaida A Comments: good effort and curve normal EBV SEROLOGIC TESTBy: Mary Ann Salcido On: 17-Feb-2007 Intent RUDY-GUZMAN VCA ANTIBODY On: 16-Feb-2007 Intent MEASUREMENTBy: Mast RN, Negrita SPECIMEN HNDLNG/TRNSPRT, OFFC > On: 06-Feb-2007 Intent LAB ([id number])By: Fast DO, Adelaida A Fast DO, Adelaida A Ultrasound - TesticularBy: Fast On: 13-Oct-2006 Intent DO, Adelaida A Fast DO, Adelaida A Inhaler Demo ([id number])By: Fast DO, On: 26-Sep-2006 Intent Adelaida A Fast DO, Adelaida A Radiology - Hip - LeftBy: Fast On: 26-Sep-2006 Intent DO, Adelaida A Fast DO, Adelaida A Radiology - Hip - RightBy: Fast On: 26-Sep-2006 Intent DO, Adelaida A Fast DO, Adelaida A Bio Z ([id number])By: Fast DO, Adelaida A On: 25-Jul-2006 Intent Fast DO, Adelaida A Comments: normal paremters Six Minute Walk Assessment On: 25-Jul-2006 Intent ([id number])By: Fast DO, Adelaida A Fast DO, Adelaida A Radiology - Chest- PA and LatBy: On: 25-Jul-2006 Intent Fast DO, Adelaida A Fast DO, Adelaida A Spirometry ([id number])By: Fast DO, On: 25-Jul-2006 Intent Adelaida A Fast DO, Adelaida A Comments: good effort and curve- normal EDISON (Ankle Brachial Index) On: 20-Jul-2006 Intent ([id number])By: Leigh Ann Pokl Comments: done EDISON (Ankle Brachial Index) On: 17-May-2006 Intent ([id number])By: Fast DO, Adelaida A Fast DO, Adelaida [...] Indication: Neoplasm of uncertain behavior of skin [facility] Wellness Physical : Patient Instructions Indication: [facility] Physical [facility] Physical : How to access health information online Indication: [facility] Physical [facility] Wellness Physical : How to access health information online - Detail Indication: [facility] Wellness Physical Other hyperlipidemia : How [...] Advance Directives Name Dates Details Immunization Registry [place] - Effective on Effective: 31-Jan-201701/31/2017. 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. Has [facility]/u with him [...] 2 days with bad UTI.- was at [facility] and getting cystoscopy done and was found to be retaining urine- - by the next night he was sick with no appetitie and just felt bad went to bed - woke up next day- and felt bad- and went to [facility]- and had uti- was there 2 [...] up hospital : Pt was transfered to [facility] for heart cath and discharged sat [...] per day. The cough occurs all the moerna End: 02-Feb-2011 16:32 e. The symptoms have [...] saw a Dr Barker a psychiatrist in [place]- he thought mostly anxiety so left him [...] he is going back to [facility]- mood good with celexa-less tense, [ADDITIONAL [...]
--- OUTSIDE RECORDS SUMMARY | 2018-05-15 01:04 | XMS RPT_ITS | Continuity of Care Document ---
:1950 Author Organization [facility] Address [address] [place] [address] Phone Care Team Providers Name Role Phone Adelaida Fraga DO Unavailable Remigio Lares MD Unavailable Tawanda Alonso Unavailable [facility] Unavailable Eliana Carter Unavailable [...] Solution daily for 90 days Quantity: 3 {Marceline} Refills: 5 Ordered:31-Oct-2017 Adelaida ACKERMAN DO Adelaida [...] A Start : 02-Nov-2017 Active Comments:sixtyDX: M54.16, M51.90561,411,000 - OD risk 100 Lunesta 3 MG [...] 20-Mar-2013 Inactive Comments:alternate with 20mg(per hans at [facility] - was not fillable if more than 1qd and would require pa at [phone] or [phone] - sent in this way to see [...] (Oral Capsule) 1 (one) Capsule Capsule bid z7fzlqc for 21 days Quantity: 42 {Capsule} Refills: 0 Ordered:21-Jan-2014 Adelaida Fraga DO, DO, Adelaida Layotn Start : 21-Jan-2014 End : 11-Feb-2014 Inactive [...] : 02-Sep-2010 End : 05-Nov-2010 Inactive NYSTATIN, 851828QGSU/ML (Mouth/Throat Suspension) 10 cc tid for 0 [...] : 22-Jun-2013 End : 03-Sep-2013 Inactive ZOSTAVAX, 23696MNG/0.65ML (Subcutaneous Solution Reconstituted) 1 For Solution sc [...] Quantity: 3 {Inhaler} Refills: 3 Ordered:10-Apr-2014 Slarb EQUITY RESEARCH ASSOCIATE, Tracey Start : 22-Jun-2013 End : 10-Apr-2014 Discontinued ATENOLOL, 50MG (Oral Tablet) 1 tab Tablet qd for 30 days Quantity: 30 {Tablet} Refills: 0 Ordered:10-Apr-2014 Slarb EQUITY RESEARCH ASSOCIATE, Tracey Start : 12-Jun-2012 End : 10-Apr-2014 [...] Quantity: 60 {Capsule} Refills: 3 Ordered:10-Apr-2014 Slarb EQUITY RESEARCH ASSOCIATE, Tracey Start : 29-Oct-2013 End : 10-Apr-2014 Discontinued Dymista 137-50 MCG/ACT Nasal Suspension 1 spray each nostril qd for 0 days Quantity: 2 {Marceline} Refills: 0 Ordered:11-Jun-2016 Leigh Ann Polk Start [...] Start : 05-Jan-2016 End : 06-Apr-2016 [id number] viewed and approved- gave scripts to [...] Quantity: 6 {Package} Refills: 0 Ordered:10-Apr-2014 Slarb EQUITY RESEARCH ASSOCIATE, Tracey Start : 06-Feb-2014 End : 10-Apr-2014 [...] x3 one on scalp two on right christian Status: Inactive as of 06-Jun-2017 Acute sinusitis, [...] W/WO Contrast Result: Comments: See Note; NOTES: [facility] Imaging Services [address] [place] [address] Brain W/WO Contrast MR#: [id number] Acct: [id number] Name: YUMIKO LANDRUM Rep #: [id number] : 1950 M 67 From: Rodney Sarah MD PCP: Adelaida Fraga DO Status: REG CLI Study: Brain W/WO Contrast Date of Exam: 09/26/17 Exam# [id number] Ordering Dr: Perico Crowe MD STUDY: MRI [...] CC: Perico Crowe MD; Adelaida Fraga DO Commercial Insulator: Signed 17-Sep-2017 Carotid Duplex Ultrasound Result: Comments: See Note; NOTES: [facility] Cardiovascular Services [address] [place] [address] Carotid Duplex Ultrasound 09/16/17 1012 MR#: [id number] Acct: [id number] Name: YUMIKO MCCOLLUM Rep #: [id number] : 1950 66 From: Jung Garcia MD [...] the left vertebral artery. Procedure Carotid Duplex 46240. The study was technically difficult. 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 transplanted heart: campo heart Qualified Code(s): I25.10 - Atherosclerotic heart disease of campo coron elise artery without angina pectoris Comment: [...] was trivial MR and TR and mild FL. His estimated RV systolic pressure was 30 [...] please see previously dictated out the patient [place] from 07/14/2017. Review of systems: Upon review [...] this approach. This note was generated with bMenu dictation software. It may contain incorrect words, spelling, and punctuation that were not noted in checking the note bef ore signing. 08/17/17 0925 <Electronically signed by Remigio Lares MD> Date Remigio Lares MD Cosigner Signature: Date (if applicable) CC: Adelaida Fraga DO; Remigio Lares MD Signed 11-Aug-2017 Chest PA and Lateral Result: Comments: See Note; NOTES: [facility] Imaging Services [address] [place] [address] Chest PA and Lateral MR#: [id number] Acct: [id number] Name: YUMIKO LANDRUM Rep #: [id number] : 1950 M 66 From: Will Guerrero MD PCP: Adelaida Fraga DO Status: REG CLI Study: Chest PA and Lateral Date of Exam: 08/11/17 Exam# [id number] Ordering Dr: Remigio Lares MD STUDY: X-RAY [...] CC: Adelaida Fraga DO; Remigio Lares MD Commercial Insulator: Signed 02-Aug-2017 Stress Report Result: Comments: See Note; NOTES: [facility] Cardiovascular Services [address] [place] [address] MR#: [id number] Acct: [id number] Name: YUMIKO LANDRUM Rep #: [id number] : [birth year] 66 From: Remigio Lares MD [...] 72 %. This note was generated with American Board of Addiction Medicine (ABAM) software. It may contain incorrect words, spelling, and punctuation that were not noted in checking the note before signing. 08/02/17 4475 <Electronically signed by Remigio Lares MD> Date Remigio Lares MD CC: Adelaida Fraga DO; Remigio Lares MD Date Dictate d: 08/02/171638 Date Transcribed: 08/02/171638 Commercial Insulator: PM Signed 14-Jul-2017 Cardiology Visit Report Result: Comments: See Note; NOTES: [facility] [address] [place] [address] OFFICE VISIT Date of Service: 07/14/17 MR#: [id number] Acct: [id number] Name: YUMIKO LANDRUM Rep #: [id number] : 1950 Provider: Remigio Lares MD Age/Sex: 66/M Location: [facility] Status: Signed HPI HPI Details: YUMIKO LANDRUM, is a 66 M who presents to the office today for outpatient card iovascular consultation for history of underlying CAD status post LAD PCI. He has been cared for in the past both by the [facility] members (Drs. Griggs and Edwin), at [facility] by Dr. Rosales, and at [facility] by Dr. Maury Veliz. He states he lost saw Dr. Veliz approximately 1 year ago. He is now relocating his care locally. He has a history of underlying CAD. He underwent a previous diagnostic car diac catheterization on 08/11/2005 at [facility]. At that point in time he was [...] stenosis. In April 2008, at [facility], he had a repeat diagnostic cardiac catheterization. [...] luminal irregularities. He apparently was transferred to [facility] for further evaluation and care. The [...] an LYNDSEY inhibitor. He believes his former waffle machine operator remove these medications from tx s medication list. 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 Atherosclerosis of campo coronary artery of campo heart without angina pectoris I25.10 PTCA/RINA to [...] Code Off vis,new,level 4 Diagnoses Atherosclerosis of campo coronary artery of campo heart without angina pectoris I25.10 [place] vs. transplanted heart: n ative heart Presence of stent in coronary artery Z95.5 Hyperlipidemia, unspecified hyperlipidemia type E78.5 Hyperlipidemia type: unspecified Essential hypertension I10 Hypertension type: essential hype rtension COPD (chronic obstructive pulmonary disease) J44.9 Coding Level of Care Code Off vis,new,level 4 Diagnoses Atherosclerosis of campo coronary artery of campo heart without angina pectoris I 25.10 [place] vs. transplanted heart: campo heart Presence of stent in coronary artery Z95.5 Hyperlipidemia, unspecified hyperlipidemia type E78.5 Hyperlipidemia type: unspecified Essential hypertension I10 Hypertension type: essential hypertension COPD (chronic obstructive pulmonary disease) J44.9 07/14/17 1558 <Electronically signed by Remigio Lares MD> Date Remigio Lares MD Cosigner Signature: Date (if applicable) CC: Adelaida Fraga DO 14-Jul-2017 12 Lead EKG performed by [facility] Result: Comments: See Note; NOTES: [facility] [address] [place] [address] 12 Lead EKG performed by [facility] 07/14/176 MR#: [id number] Acct: [id number] Name: YUMIKO LANDRUM Rep #: [id number] : 1950 66 From: Remigio Lares MD Attending Dr: Remigio Lares MD Status: DEP AMB Ordering Dr: Remigio Lares MD Date: 07/14/17 [place] [facility] Sex: M C Admitted: [facility]/12 Lead EKG performed by [facility] ECG Report Interpretation Sinus Rhythm Right bundle branch block. ABNORMAL Electronically signed on 07/14/2017 at 17:15 by Remigio Lares 07/14/17 1717 Date Remigio Lares MD CC: Adelaida Fraga DO Date Dictated: 07/14/171435 Date Transcribed: 07/14/171435 Commercial Insulator: PM Signed 04-Jul-2017 TXT - Blood Flow Screening Result: Comments: See Note; NOTES: [facility] Cardiovascular Services [address] [place] [address] 07/04/17 0840 MR#: [id number] Acct: [id number] Name: YUMIKO LANDRUM Rep #: [id number] : 1950 66 From: Jung Garcia MD Attending Dr: Adelaida Fraga DO Status: REG REF Ordering Dr: Date: 07/04/17 Location: [facility] Sex: M C Admitted: Reason For Study: [...] (1.0 or greater). Ordering Physician: Adelaida Fraga [facility] Physician: Adelaida Fraga Performed By: Kayla Kelley, RDCS, RVT 07/04/172221 Date Tyrese Garcia MD CC: Adelaida Fraga DO Date Dictated: 07/04/17 0840 Date Transcribed: 07/04/172221 Commercial Insulator: Signed 06-Jun-2017 L/S Spine Min 4 Views Result: Comments: See Note; NOTES: [facility] Imaging Services [address] [place] [address] L/S Spine Min 4 Views MR#: [id number] Acct: [id number] Name: YUMIKO LANDRUM Rep #: [id number] : 1950 M 66 From: Rafael Manley DO PCP: Adelaida Fraga DO Status: REG CLI Study: L/S Spine Min 4 Views Date of Exam: 06/06/17 Exam# [id number] Ordering Dr: Adelaida Fraga DO STUDY: X-RAY [...] Rafael Manley DO at 18:01 EDT Tel [phone], Service support , CC: Adelaida Fraga DO Commercial Insulator: Signed 18-Feb-2017 Ankle min 3 Views Result: Comments: See Note; NOTES: [facility] Imaging Services [address] [place] [address] Ankle min 3 Views MR#: [id number] Acct: [id number] Name: YUMIKO LANDRUM Rep #: [id number] OB: 1950 M 66 From: Trevon Carrillo MD PCP: Adelaida Fraga DO Status: REG CLI Study: Ankle min 3 Views Date of Exam: 02/18/17 Exam# [id number] Ordering Dr: Adelaida Fraga DO STUDY: X-RAY [...] Service support , CC: Adelaida Fraga DO Commercial Insulator: Signed 18-Feb-2017 Chest without Contrast Result: Comments: See Note; NOTES: [facility] Imaging Services [address] [place] [address] Chest without Contrast MR#: [id number] Acct: [id number] Name: YUMIKO LANDRUM Rep #: [id number] : 1950 M 66 From: Kaitlin Campoverde PCP: Adelaida Fraga DO Status: REG CLI Study: Chest without Contrast Date of Exam: 02/18/17 Exam# [id number] Ordering Dr: Adelaiad Fraga DO STUDY: CT CHEST WITHOUT CONTRAST [...] Service support , CC: Adelaida Fraga DO Commercial Insulator: Signed 10-Feb-2017 Chest PA and Lateral Result: Comments: See Note; NOTES: [facility] Imaging Services [address] [place] [address] Chest PA and Lateral MR#: [id number] Acct: [id number] Name: YUMIKO LANDRUM Rep #: [id number] : 1950 M 66 From: Chava Fu MD PCP: Adelaida Fraga DO Status: REG CLI Study: Chest PA and Lateral Date of Exam: 02/10/17 Exam# [id number] Ordering Dr: Yola Witt STUDY: X-RAY CHEST [...] , CC: COCO Witt; Adelaida Fraga DO Commercial Insulator: Signed 18-Jan-2017 Chest PA and Lateral Result: Comments: See Note; NOTES: [facility] Imaging Services [address] [place] [address] Chest PA and Lateral MR#: [id number] Acct: [id number] Name: YUMIKO LANDRUM Rep #: [id number] : 1950 M 66 From: Erwin Jiménez MD PCP: Adelaida Fraga DO Status: REG CLI Study: Chest PA and Lateral Date of Exam: 01/18/17 Exam# [id number] Ordering Dr: Yola Witt STUDY: X-RAY CHES [...] EST Tel , Service support , CC: WINDOWS APPLICATION PACKAGERMayra Witt; Adelaida Fraga DO Commercial Insulator: Signed 11-Apr-2015 Chest PA and Lateral Result: Comments: See Note; NOTES: [facility] Imaging Services [address] [place] [address] Verdana 4d Chest PA and Lateral MR#: [id number] Acct: [id number] Name: YUMIKO LANDRUM Rep #: [id number] : 1950 64 From: Stephen Barba MD PCP: Adelaida Fraga DO Status: REG CLI Study: Chest PA and Lateral Date of Exam: 04/11/15 Exam# [id number] Ordering Dr: Adelaida Fraga DO STUDY: X-RAY [...] FACR at 20:20 EST , Service support [phone], RAD/Chest PA and Lateral IMPRESSION: Normal x-ray examination of the chest. No lingular infiltrate is noted on today's examination Electronically Signed: Stephen Barba MD, FACR at 20:20 EST , Service support [phone], CC: Adelaida Fraga DO Commercial Insulator: Signed 11-Apr-2015 Hip min 2 Views Result: Comments: See Note; NOTES: [facility] Imaging Services [address] [place] [address] Verdana 4d Hip min 2 Views MR#: [id number] Acct: [id number] Name: DOMINICKNATHAN QUIÑONEZHERNANDO Taylor Rep #: [id number] : 1950 64 From: Stephen Barba MD PCP: Adelaida Fraga DO Status: REG CLI Study: Hip min 2 Views Date of Exam: 04/11/15 Exam# [id number] Ordering Dr: Adelaida Fraga DO UDY: X-RAY [...] FACR at 20:19 EST , Service support [phone], RAD/Hip min 2 Views IMPRESSION: Normal x-ray examination of the pelvis and hip. Electronically Signed: Stephen Barba MD, FACR 201 07/23/18 at 20:19 EST , Service support [phone], CC: Adelaida Fraga DO Commercial Insulator: Signed 11-Apr-2015 L/S Spine Min 4 Views Result: Comments: See Note; NOTES: [facility] Imaging Services [address] [place] [address] Verdana 4d L/S Spine Min 4 Views MR#: [id number] Acct: [id number] Name: YUMIKO LANDRUM Rep #: [id number] : 1950 64 From: Stephen Braba MD PCP: Adelaida Fraga DO Status: REG CLI Study: L/S Spine Min 4 Views Date of Exam: 04/11/15 Exam# [id number] Ordering Dr: Susannah Fraga ra, DO STUDY: [...] FACR at 20:20 EST , Service support [phone], RAD/L/S Spine Min 4 Views IMPRESSION: M ild degenerative disc disease at L2-3 and L5-S1. Facet arthrosis at L4-5 and L5-S1. Mild dextroscoliosis. Electronically Signed: Stephen Barba MD, FACR at 20:20 EST Tel , Service support [phone], CC: Adelaida Fraga DO Commercial Insulator: Signed 27-Aug-2014 Chest PA and Lateral Result: Comments: See Note; NOTES: [facility] Imaging Services [address] [place] [address] Radiology Report MR#: [id number] Acct: [id number] Name: YUMIKO LANDRUM [place] Rep #: [id number] : 1950 M 63 From: Wilfredo Alvarado MD PCP: Adelaida Fraga DO Status: REG CLI Study: Chest PA and Lateral Date of Exam: 08/27/14 Exam# [id number] Ordering Dr: Adelaida Fraga DO STUDY: X- [...] Wilfredo Alvarado MD at 15:46 EDT Tel [phone], Service support [phone], 0079 RAD/Chest PA and Lateral IMPRESSION: Inc reased markings in the lingular segment of the left upper lobe suggestive of early infiltrate. Followup is recommended. Electronically Signed: Wilfredo Alvarado MD at 15:46 EDT Tel [phone], Service support [phone], CC: Adelaida Fraga DO Commercial Insulator: Signed 02-Jul-2013 12 Lead Electrocardiogram Result: Comments: See Note; NOTES: [facility] Cardiovascular Services [address] [place] [address] 12 Lead EKG 06/17/13 1938 MR#: [id number] Acct: [id number] Name: CITLALLI LANDRUM [place] Rep #: [id number] : 1950 62 From: Remigio Lares MD [...] Abnormal ECG Confirmed by GERDA CALVO, REMIGIO ([id number]), publication editor KARYNA RUBALCAVA ([id number]) on 2013 10:04:35 AM Referred By: Jose Fernando Confirmed By:REMIGIO LARES MD CC: Adelaida byrd DO Date Dictated: 06/17/131937 Date Transcribed: 06/17/131937 Commercial Insulator: Signed 30-Jun-2013 Emergency Department Summary Result: Comments: See Note; NOTES: [facility] Medical Records Department [address] [place] [address] Emergency Department Summary MR#: [id number] Acct: [id number] Name: YUMIKO LANDRUM Rep #: [id number] : 1950 62 From: Jose Fernando MD PCP: Adelaida Fraga DO Status: DEP ER DATE OF SERVICE: 06/28/2013 CHIEF COMPLAINT: Chest pain. HISTORY OF PRESENT ILLNESS: The patient states over the past 8 hours, he has had intermittent discomfort in the chest of burning to ache similar to angina. He had an ME, he thinks, back in 2011 when he had a stent placed by Dr. Mariah carr in [facility]. He has been off his blood thinners [...] and sensation, cranial nerve function and treatment. [facility] DEPARTMENT COURSE: Portable one-view chest x-ray shows [...] a 3. He agreed to go to [facility] where his waffle machine operator is in case he needs another cath and stent. He was stable for transfer. I spoke with [facility], Jorge and Dr. Trujillo as admittance attendant accepted the patient after being advised of all the above through the transfer steam oven operator. He did not want to talk to me. The patient is stable for transfer, with him. DIAGNOSES: 1. Chest pain. 2. Unstable angina. Jose Fernando MD C C: Adelaida Fraga DO T: NTS JOB: [id number] 06/30/13 0021 <Electronically signed by Jose Fernando MD> Date Jose Fernando MD CC: Adelaida Fraga DO Date Dictated: 06/28/132254 Date Transcribed: 06/28/132254 Commercial Insulator: Signed 28-Jun-2013 Chest 1 View (Portable) Result: Comments: See Note; NOTES: [facility] Imaging Services [address] [place] [address] Radiology Report MR#: [id number] Acct: [id number] Name: YUMIKO LANDRUM [place] Rep #: [id number] : 1950 M 62 From: Wilfredo Alvarado MD PCP: Adelaida Fraga DO Status: DEP ER Study: Chest 1 View (Portable) Date of Exam: 06/28/13 Exam# [id number] Ordering Dr: Jose Fernando MD STUDY: X-RAY [...] Wilfredo Alvarado MD at 9:06 EDT Tel [phone], Service support [phone], CC: Adelaida Fraga DO; Jose Fernando MD Commercial Insulator: Signed Immunization Name Dates Details Influenza vaccine, split, 3yrs &>, IM (AFLURIA) on: Nov-2017 Influenza, inj, MDCK, preservative free, q.valent on: 07-Dec-2016 Comments: Site: Lot #: [id number] Family History Unknown Family Member Name Dates [...] Status: Active 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 criteria.Please note revised GLUCOSE reference range aqxuorckw79/02/2018. 17-Uhg-732117:31 Hemoglobin A1c Comments: [facility] [address] [place], [place], [address] HGB A1C 6.0 % (Normal) Range: 4.2-6.3 04-Maj-499916:31 Lipid Profile Comments: [facility] [address] [place], [place], [address] VLDL 24 mg/dL (Normal) Range: 5-40 LDL [...] Risk :31 PSA,Total - Annual Screen Comments: [facility] [address] [place], [place], [id number] PSA,TOT SCREEN 0.50 ng/mL (Normal) Range: 0.00-4.00 Comments: This test was performed using the TPSA assay method for the[facility] chemistry system. Values obtained with differentassay methods cannot be used interchangably.When changing PSA assays in the course of monitoring apatient, additional sequential testing should be carriedout to confirm baseline values. 08-Zfh-215258:42 Aspergillus Antibodies Comments: [facility] (refer to report for specific site)refer to report for address and phone number Asp. niger Negative (Normal) Asp. flavus Negative (Normal) Asp. fumigatus Negative (Normal) :42 Immunoglobulin E Comments: [facility] (refer to report for specific site)refer to report for address and phone number IMMUNO E 19 {IU/mL} (Normal) Range: 0-100 19-Ubf-072978:42 Immunoglobulin G Comments: [facility] (refer to report for specific site)refer to report for address and phone number IMMUNO G 702 mg/dL (Normal) Range: 700-1600 Comments: Performed at: [address] [id number] Director: Joseph Velez MD, Phone: [phone] at: [place] [address]Kkt Director: Hugo Britt PhD, Phone: [phone] 69-Rky-431104:42 Miscellaneous Lab Comments: Comments: [id number] CASTRO,RTTest(s) [facility]: [facility] [address] [place], [place], [address] Procedure MIS Comments: TEST RESULT UNITS REFERENCE INTERVALA. fumigatus #1 Abs NEGATIVE NEGATIVE TESTING PERFORMED AT [facility]. O LAB (Normal) RIGINAL REPORT ON FILE IN LAB CONTAINS ADDITIONAL TEST SITE INFORMATION. TEST 4-Iws-320650:28 Acetylcholine Receptor Comments: Has Patient had Radioactive In[facility] for X-ray?: [facility] ([facility]er to [facility] for specific site)refer to report for address and phone number ACTYL [id number] < 0.03 nmol/L (Normal) Range: 0.00-0.24 Comments: Negative: 0.00 - 0.24 Borderline: 0.25 - 0.40 Positive: > 0.40Performed at: [address] [id number] Director: Joseph Velez MD, Phone: [phone] 0-Wgh-723153:28 BUN 9 mg/dL (Normal) Comments: [facility] [address] [place], [id number] Range: 7-18 9-Vym-712572:28 Serum Creatinine AND GFR Comments: [facility] [address] [place], [id number] EST GFR - AA 100 mL/min (Normal) Comments: GFR Calc EST GFR 83 mL/min (Normal) Comments: Non- GFR Calc CREAT,SERUM 0.97 mg/dL (Normal) Range: 0.70-1.30 Comments: The validity of the calculated GFR AND GFRAA in patients over70 years has not been determined. Clinical correlation isessential. 11-Dnf-700306:13 Culture, Fungus 8482 Comments: [facility] [address] [place], [address] CUF See Note Comments: Cu,Vxyshm9398 TESTING PERFORMED AT [facility]. ORIGINAL REPORT ON FILE IN LAB CONTAINS ADDITIONAL TEST SITE INFORMATION. (Normal) ORGANISM 1: Barron albicansAmount Growth Growth ORGANISM 2: Penicillium speciesAmount Growth Growth 15-Gtf-003398:13 Culture, Sputum Comments: [facility] [address] [place], [address] CUSP See Note (Normal) Comments: Gram StainAcceptable Specimen? Yes (<25 Epithelial cells per/lpf) Gram Stain 2+ White Blood Cells 2+ Epithelial cells 4+ Gram positive cocci 4+ Gram positive rods Resp. CultureNo Haemoph ilus, Streptococcus pneumoniae, beta-hemolytic Streptococcus or Staphylococcus aureus isolated. ORGANISM 1: Yeast Like OrganismAmount Growth Rare ORGANISM 2: Mixed FloraAmount Growth 3+ 33-Spy-648286:59 CBC W/Diff, Automated Comments: [facility] [address] [place], [place], [address] Absolute Lymph 1.98 {X10_3/ul} (Normal) Range: 0.83-4.51 [...] 4.6-6.2 WBC 10.8 K/mm3 (Normal) Range: 4.4-11.0 33-Obv-046197:59 Comprehensive Metabolic Profil Comments: [facility] [address] [place], [place], [address] GAP 10 (Normal) Range: 5-15 CO2 27.0 [...] A.D.A. criteria.Please note revised GLUCOSE reference range kkntxvzyn57/02/2018. 81-Uqc-916909:59 Hemoglobin A1c Comments: [facility] [address] [place], [place], [address] HGB A1C 6.2 % (Normal) Range: 4.2-6.3 71-Jjm-347586:59 Lipid Profile Comments: [facility] L[address]opatie[address] [place], [place], [address] VLDL 13 mg/dL (Normal) Range: 5-40 LDL [...] 200-240 mg/dL Borderline >240 mg/dL High Risk 06-Opd-910400:59 Microalb:Creat Ratio,Random UR Comments: [facility] Musb[address]ok[address] [place], [place], [address] MALB:CREAT 10.1 {mg/g_CRE} (Normal) MICROALBUMIN,UR 5.6 mg/L (Normal) UR CREAT 55.70 mg/dL (Normal) :45 Basic Metabolic Profile (BMP) Comments: [facility] Ebmq[address]ulys[address] [place], [place], [address] GAP 6 (Normal) Range: 5-15 CO2 29.0 [...] Comments: Please note revised GLUCOSE reference range vzxdiroct07/02/2018. 3-Chd-772537:45 Lipid Profile Comments: [facility] [address]ai[address] [place], [place], [address] VLDL 22 mg/dL (Normal) Range: 5-40 LDL [...] 200-240 mg/dL Borderline >240 mg/dL High Risk 1-Gwy-668454:45 Liver Profile Comments: [facility] Goicidnqcw39[address] [place], [address] D BILI 0.13 mg/dL (Normal) Range: 0.00-0.30 T BILI 0.50 mg/dL (Normal) Range: 0.20-1.00 ALT 27 U/L (Normal) Range: 16-61 ALK P 53 U/L (Normal) Range: 45-117 AST 20 U/L (Normal) Range: 15-37 GLOB 4.3 g/dL (Abnormal) Range: 2.2-4.2 ALB 3.0 g/dL (Abnormal) Range: 3.2-5.0 T PROT 7.3 g/dL (Normal) Range: 6.4-8.2 77-Gae-871191:31 Basic Metabolic Profile (BMP) Comments: [facility] Vzmyaromdi[address] [place], [place], [address] GAP 4 (Abnormal) Range: 5-15 CO2 27.0 [...] A.D.A. criteria.Please note revised GLUCOSE reference range ueazhdgou74/02/2018. 93-Vgo-449814:31 CBC-Complete Blood Cnt No Diff Comments: [facility] Rhxlbopuuq[address] [place], [place], [address] MPV 8.7 fL (Normal) Range: 6.2-12.0 PLT [...] 4.6-6.2 WBC 9.6 K/mm3 (Normal) Range: 4.4-11.0 95-Ldz-772529:31 Partial Thromboplast Time Comments: [facility] [address] [place], [place], [address] PTT 26.1 s (Normal) Range: 24.1-36.2 02-Eiu-455140:31 Prothrombin Time w/INR Comments: [facility] Rtvkypxxwe[address] [place], [place], [address] INR 0.9 (Normal) PROTIME 12.5 s (Normal) Range: 11.7-14.9 :00 Culture, Fungus 8482 Comments: [facility] [address] [place], [address] CUF See Note Comments: Cu,Brpphe8955 TESTING PERFORMED AT [facility]. ORIGINAL REPORT ON FILE IN LAB CONTAINS ADDITIONAL TEST SITE INFORMATION. (Normal) ORGANISM 1: Barron albicansAmount Growth Growth ORGANISM 2: Penicillium speciesAmount Growth Growth ORGANISM 3: Aspergillus speciesAmount Growth Growth :00 Culture, Sputum Comments: [facility] [address] [place], [place], [address] CUSP See Note (Normal) Comments: Gram StainAcceptable Specimen? Yes (<25 Epithelial cells per/lpf) Gram Stain 1+ White Blood Cells Rare Epithelial cells 4+ Gram positive rods 1+ Gram negative rods Resp. Culture Mixed nor mal respiratory ashkan. No Haemophilus, Streptococcus pneumoniae, beta-hemolytic Streptococcus or Staphylococcus aureus isolated. 38-Jbo-226036:00 Culture, Sputum Comments: [facility] [address] [place], [address] CUSP See Note (Normal) Comments: Gram StainAcceptable Specimen? Yes (<25 Epithelial cells per/lpf) Gram Stain 1+ White Blood Cells Rare Epithelial cells 3+ Gram positive cocci Resp. CultureMixed normal respiratory ashkan. No Haemophilus, Streptococcus pneumoniae, beta-hemolytic Streptococcus or Staphylococcus aureus isolated. 34-Dhn-976246:44 TESTOSTERONE FREE (69426) Comments: PATIENT NOT FASTINGPERFORMED BY: [facility]CoSaint [facility] at DenvilleHrzrbn1374 [facility] [id number] BY: [address] [id number] Free Testosterone(Direct) 2.6 pg/mL (Abnormal) Range: 6.6-18.1 46-Zgv-828970:44 HEPATITIS C ANTIBODY Comments: PATIENT NOT FASTINGPERFORMED BY: [place] 2330870 [facility] [id number] BY: [address] [id number] ([address]) Hep C Virus Ab 0.1 {s/co_ratio} (Normal) Range: 0.0-0.9 Comments: Negative: < 0.8 Indeterminate: 0.8 - 0.9 Positive: > 0.9 . The CDC recommends that a positive HCV antibody result be followed up with a HCV Nucleic Acid Amplification test (058966). 47-Var-043486:44 CBC W/AUTO DIFF WBC Comments: PATIENT NOT FASTINGPERFORMED BY: [place] 2330870 [facility] [id number] BY: [address] [id number] ([address]) Immature Grans (Abs) 0.0 {x10E3/uL} (Normal) Range: [...] 4.14-5.80 WBC 6.1 {x10E3/uL} (Normal) Range: 3.4-10.8 71-Lyz-222882:44 METABOLIC PANEL, Comments: PATIENT NOT FASTINGPERFORMED BY: CB [facility] Zwygkq1528 [facility] [id number] BY: BN [facility] Qoygjvgnxt2876 [facility] [id number] [facility] ([address]) ALT (SGPT) 17 [iU]/L (Normal) Range: 0-44 [...] 8-27 Glucose 102 mg/dL (Abnormal) Range: 65-99 64-Ibj-059319:15 HgA1C , Office (01677) HgA1C , Office 5.7 % (Normal) Range: 4.6 - 7.1 :30 CBC W/Diff, Automated Comments: [facility] [address]qlr[address] [place], [address] Absolute Lymph 1.76 {X10_3/ul} (Normal) Range: 0.83-4.51 [...] 4.6-6.2 WBC 6.7 K/mm3 (Normal) Range: 4.4-11.0 21-Nvf-162239:30 Comprehensive Metabolic Profil Comments: [facility] Oxumdhgzpp[address] [place], [address] GAP 9 (Normal) Range: 5-15 CO2 25.0 [...] 7-18 GLU 78 mg/dL (Normal) Range: 70-110 61-Wzc-451244:30 Culture, Urine Comments: [facility] Ofoetxyuni9595 [place], [address] CUUR See Note (Normal) Comments: Urine CultureCulture exhibits no growth. 27-Aky-264205:30 Lipid Profile Comments: [facility] Ipnwheucae1160 [place], [address] VLDL 19 mg/dL (Normal) Range: 5-40 LDL [...] 200-240 mg/dL Borderline >240 mg/dL High Risk 02-Jnj-709059:10 Rapid Strep Test, Office (66909) Comments: Negative Rapid Strep Test, Office Negative (Normal) 04-Obb-91213:51 THROAT CULTURE (07454) Comments: PATIENT NOT FASTINGPERFORMED BY: [employer] [facility] [id number] Information: SRC: Result 1 RRF (Normal) Comments: Routine respiratory ashkan Upper Respiratory Culture Final report (Normal) 98-Zjx-077410:02 Rapid Flu (61420 x 2) Comments: Negative Influenza A Ag Negative (Normal) :45 URINE WARREN CULTURE-IDENTIFICATN Comments: PERFORMED BY: [facility] Uhnvny3301 [facility] [id number] Information: SRC:UC (83146) Result 1 NG36 (Normal) Comments: No growth in 36 - 48 hours. Urine Culture,Comprehensive Final report (Normal) 34-Cft-658325:02 Urinalysis, Office (15741) UA - LEUKOCYTE ESTERASE Negative (Normal) UA - NITRITE Negative (Normal) URINE UROBILINGN MASSIEL TIMED Normal mg/dL (Normal) UA - PROTEIN Negative mg/dL (Normal) UA - PH 7 (Normal) UA - BLOOD Negative (Normal) UA - SPECIFIC GRAVITY 1.020 (Normal) UA - KETONES Negative mg/dL (Normal) UA - BILIRUBIN Negative (Normal) UA - GLUCOSE Negative (Normal) 67-Zag-873567:22 CBC W/Diff, Automated Comments: [facility] Dvwfozevfi06[address] [place], [address] Absolute Lymph 1.50 {X10_3/ul} (Normal) [...] 4.6-6.2 WBC 6.2 K/mm3 (Normal) Range: 4.4-11.0 64-Vmd-418113:22 Comprehensive Metabolic Profil Comments: [facility] Hnkvxdoxwk8566 [place], [address] ; will review opn 11/10 [...] 7-18 GLU 104 mg/dL (Normal) Range: 70-110 13-Rpg-473075:22 Hemoglobin A1c Comments: [facility] Wzgnzfgqyd6[address] [place], [place], [address] HGB A1C 5.6 % (Normal) Range: 4.2-6.3 07-Kiz-759343:22 Immunofixation, Serum Comments: [facility] (refer to report for specific site)refer to report for address and phone number PAULA RESULT,S Comment (Normal) Comments: No monoclonality detected. IMMUNOGL M 53 mg/dL (Normal) Range: 20-172 IMMUNO A 169 mg/dL (Normal) Range: 61-437 IMMUNO G 692 mg/dL (Abnormal) Range: 700-1600 95-Pap-337274:22 [place] Lambda Light Chains Comments: [facility] (refer to report for specific site)refer to report for address and phone number KAPPA/LAMBDA % 1.17 (Normal) Range: 0.26-1.65 Comments: Performed at: - [facility] [id number] Director: Hugo Britt PhD, Phone: [phone] FR LAMBDA LT CH 12.3 mg/L (Normal) Range: 5.7-26.3 FR KAPPA LT CHN 14.4 mg/L (Normal) Range: 3.3-19.4 65-Zta-730472:22 Lipid Profile Comments: [facility] Hoxjltuktq[address] [place], [place], [address] VLDL 20 mg/dL (Normal) Range: 5-40 LDL [...] 200-240 mg/dL Borderline >240 mg/dL High Risk 50-Gmz-827798:22 Microalb:Creat Ratio,Random UR Comments: [facility] Uuikfyxuhl22[address] [place], [address] ; will review on 11/10 MALB:CREAT 5.6 {mg/g_CRE} (Normal) MICROALBUMIN,UR 7.2 mg/L (Normal) UR CREAT 128.00 mg/dL (Normal) 22-Wiy-457797:22 PSA,Total - Annual Screen Comments: [facility] Zrjetwokqw8746 [address] [place], [place], [address] PSA,TOT SCREEN 0.63 ng/mL (Normal) Range: 0.00-4.00 Comments: This test was performed using the TPSA assay method for the[facility] chemistry system. Values obtained with differentassay methods cannot be used interchangably.When changing PSA assays in the course of monitoring apatient, additional sequential testing should be carriedout to confirm baseline values. :07 CBC W/Diff, Automated Comments: [facility] Im[address] [place], [place], [phone] Absolute Lymph 1.42 {X10_3/ul} (Normal) Range: 0.83-4.51 [...] Range: 4.4-11.0 :07 Comprehensive Metabolic Profil Comments: [facility] [address] [place], [place], [address] GAP 8 (Normal) Range: 5-15 CO2 27.0 [...] 7-18 GLU 104 mg/dL (Normal) Range: 70-110 88-Stw-806844:07 Hemoglobin A1c Comments: [facility] Yfovsjpbdw4[address] [place], [place], [address] HGB A1C 5.6 % (Normal) Range: 4.2-6.3 10-Xag-939316:07 PAULA + Protein Elect, Serum Comments: Is Patient Fasting? [facility] (refer to report for specific site)refer to report for address and phone number NOTE: Comment (Normal) Comments: Protein electrophoresis scan will follow via computer,mail, or retail field supervisor delivery.Performed at: [address] [id number] Director: Hugo Britt PhD, Phone: [phone] PAULA RESULT,S Comment (Normal) Comments: No monoclonality detected. A/G RATIO 1.2 (Normal) Range: 0.7-1.7 GLOBULIN, TOTAL 3.0 g/dL (Normal) Range: 2.2-3.9 M-SPIKE g/dL (Normal) Comments: Not Observed GAMMA GLOBULIN 0.7 g/dL (Normal) Range: 0.4-1.8 BETA GLOBULIN 1.1 g/dL (Normal) Range: 0.7-1.3 NFTJY-0-RXBC 0.8 g/dL (Normal) Range: 0.4-1.0 IBMXV-9-KURU 0.3 g/dL (Normal) Range: 0.0-0.4 ALBUMIN 3.3 g/dL (Normal) Range: 2.9-4.4 IMMUNOGL M 53 mg/dL (Normal) Range: 20-172 IMMUNO A 177 mg/dL (Normal) Range: 61-437 IMMUNO G 761 mg/dL (Normal) Range: 700-1600 PROTEIN,TOTAL 6.3 g/dL (Normal) Range: 6.0-8.5 73-Har-042147:07 Lipid Profile Comments: [facility] [address] [place], [place], [address] VLDL 21 mg/dL (Normal) Range: 5-40 LDL [...] High Risk :01 CBC W/Diff, Automated Comments: [facility] A[address] [place], [address] Absolute Lymph 1.62 {X10_3/ul} (Normal) [...] 4.6-6.2 WBC 7.6 K/mm3 (Normal) Range: 4.4-11.0 49-Rrc-373340:01 Comprehensive Metabolic Profil Comments: [facility] Ffqgtsvoeb1280 Andrea [place], [place], [address] ; has apt today GAP 7 (Normal) [...] 7-18 GLU 96 mg/dL (Normal) Range: 70-110 91-Mzc-281568:01 Lipid Profile Comments: [facility] Sawictxfpg64[address] [place], [place], [address] VLDL 11 mg/dL (Normal) Range: 5-40 LDL [...] 200-240 mg/dL Borderline >240 mg/dL High Risk 28-Hdh-054939:01 Lipoprotein A 369 nmol/L (Abnormal) Comments: [facility] [...] genetic factors on Lp(a) across ethnicities.Performed at: [facility] [id number] Director: Hugo Britt PhD, Phone: [phone] 72-Gvq-342809:56 HgA1C , Office (88846) HgA1C , Office 5.6 % (Normal) Range: 4.6 - 7.1 9-Jmt-147285:19 ANCA Panel Comments: PATIENT NOT FASTINGPERFORMED BY: Me[employer] [id number] BY: L[employer] Gosto/LBR [address] [id number] Atypical pANCA <1:20 {titer} Comments: The atypical [...] follow up testing ofpositive sera with both FL-3 and MPO-ANCA enzyme immunoassays. Asmany as 5% serum samp les are positive only by EIA.Ref. AM J Clin Pathol 1999;111:507-513. Cytoplasmic (C-ANCA) <1:20 {titer} (Normal) Antiproteinase 3 (FL-3) Abs <3.5 U/mL (Normal) Range: 0.0-3.5 Antimyeloperoxidase (MPO) Abs <9.0 U/mL (Normal) Range: 0.0-9.0 :19 Antinuclear Antibodies Comments: PATIENT NOT FASTINGPERFORMED BY: [employer] [id number] BY: [facility] [place] [id number] Direct JOHN Direct Negative (Normal) :1 C-Reactive Protein, 2.1 mg/L (Normal) Comments: PATIENT NOT FASTINGPERFORMED BY: [address] [id number] BY: [facility] [facility] [place] [id number] Quant Range: 0.0-4.9 :19 Rheumatoid Arthritis Comments: PATIENT NOT FASTINGPERFORMED BY: [address] [id number] BY: [place] [address]308[address] [facility] [id number] Factor RA Latex Turbid. 7.8 {IU/mL} Range: 0.0-13.9 (Normal) Sedimentation 8 mm/h (Normal) Comments: PATIENT NOT FASTINGPERFORMED BY: [address] [id number] BY: [facility] [facility] [id number] :19 Rate-Westergren Range: 0-30 Thyroid Peroxidase (TPO) 8 {IU/mL} (Normal) Comments: PATIENT NOT FASTINGPERFORMED BY: [address] [id number] BY: [facility] [facility] [place] [id number] :19 Ab Range: 0-34 :19 Thyroxine (T4) Free, Comments: PATIENT NOT FASTINGPERFORMED BY: [address] [id number] BY: [facility] [facility] [place] [id number] Direct, S T4,Free(Direct) 1.11 ng/dL Range: 0.82-1.77 (Normal) Triiodothyronine,Free,Seru 2.5 pg/mL (Normal) Comments: PATIENT NOT FASTINGPERFORMED BY: [facility]14[address] [facility] [id number] BY: [facility]6370 [facility] [id number] 2:19 m Range: 2.0-4.4 TSH 3.450 {uIU/mL} Comments: PATIENT NOT FASTINGPERFORMED BY: [facility] [id number] BY: [facility]6370 [facility] [id number] 2:19 (Normal) Range: 0.450-4.500 0-Stb-361742:30 Pathology Report Comments: PERFORMED BY: [facility] Livwf82476 [facility] [id number] Information: [id number] See MATER Comments: Material submitted: .FOREHEAD SHAVE [...] IN CASSETTE(S) A./CORCOR/CORPa thologist provided ICD-10:D48.5, L90.9CPT .526724 13-Vue-62544:22 TESTOSTERONE FREE (83859) Comments: PATIENT WAS FASTINGPERFORMED BY: [employer] [facility] [id number] BY: [facility] [id number] Free Testosterone(Direct) 2.5 pg/mL (Abnormal) Range: 6.6-18.1 87-Daf-10800:22 VITAMIN B-12 (CYANOCOBALAMIN) Comments: PATIENT WAS FASTINGPERFORMED BY: [employer] [facility] [id number] BY: [facility] [id number] ([address]) Vitamin B12 638 pg/mL (Normal) Range: 211-946 26-Cuk-00477:22 CBC W/AUTO DIFF WBC Comments: PATIENT WAS FASTINGPERFORMED BY: [employer]70 [facility] [id number] BY: [facility] [id number] Inf ormation: NURSE DRAW (05063) Immature Grans (Abs) 0.0 {x10E3/uL} (Normal) Range: [...] 4.14-5.80 WBC 7.3 {x10E3/uL} (Normal) Range: 3.4-10.8 22-Dre-10316:22 METABOLIC PANEL, Comments: PATIENT WAS FASTINGPERFORMED BY: CB [facility] Rshatm7060 [facility] [id number] BY: [facility] [address] [id number] [facility] ([address]) ALT (SGPT) 12 [iU]/L (Normal) Range: 0-44 [...] Glucose, Serum 100 mg/dL (Abnormal) Range: 65-99 56-Ivp-88030:52 CBC W/Diff, Automated Comments: [facility] Vopmneuqmb2068 Andrea [place], [place], [address] Absolute Lymph 1.73 {X10_3/ul} (Normal) Range: 0.83-4.51 [...] 4.6-6.2 WBC 6.0 K/mm3 (Normal) Range: 4.4-11.0 65-Xdg-37013:52 Comprehensive Metabolic Profil Comments: [facility] Ydxcrqugxk3202 [place], [address] GAP 6 (Normal) Range: 5-15 CO2 26.0 [...] (Normal) Range: 70-110 :52 Hemoglobin A1c Comments: [facility] [address] [place], [place], [address] HGB A1C 5.6 % (Normal) Range: 4.2-6.3 :52 Lipid Profile Comments: [facility] Ur[address] [place], [address] VLDL 21 mg/dL (Normal) Range: [...] High Risk :52 Microalb:Creat Ratio,Random UR Comments: [facility] M[address] [place], [place], [address] MALB:CREAT 9.1 {mg/g_CRE} (Normal) MICROALBUMIN,UR 9.0 mg/L (Normal) UR CREAT 99.50 mg/dL (Normal) :52 PSA,Total - Annual Screen Comments: [facility] [address] [place], [address] PSA,TOT SCREEN 0.51 ng/mL (Normal) Range: 0.00-4.00 Comments: This test was performed using the TPSA assay method for [employer] chemistry system. Values obtained with differentassay methods cannot be used interchangably.When changing PSA assays in the course of monitoring apatient, additional sequential testing should be carriedout to confirm baseline values. COLON BIOPSY (CHOOSE See Note (Normal) Comments: [facility] Qgctsuskmy1482 [place], [address] :45 SITE) Comments: Patient: YUMIKO LANDRUM : 1950 (64/M) Acct Num: [id number] Phys: ViktorErnestine belletracy Unit Num: [id number] Loc: LABSPEC Specimen: [id number] Received: 09/11/151646 Spec Type: C ZONIA BX [...] in one cassette. / IRON:momo 09/11 TC:1 CPT:40565 x2 HEADER OPERATION: Colonoscopy with biopsy PRE-OP DIAGNOSIS: Screening/polyp TISSUE SUBMITTED: A - Polyp cecum, R/O adenoma, B - Polyp sigmoid, R/O adenoma MICROSCOP IC DESCRIPTION Slides are reviewed. MICROSCOPIC DIAGNOSIS A. Polyp cecum, biopsy: Fragments of tubular adenoma. B. Polyp sigmoid, biopsy: Fragments of tubular adenoma. IRON:momo 09/15/15 Signed Pamella Son 09/15/15 <signature on file> 81-Drw-496646:37 CBC W/Diff, Automated Comments: [facility] Pzmngxkjbs[address] [place], [place], [address] ; noon-emergent till apt Absolute Lymph 1.39 [...] 4.6-6.2 WBC 6.5 K/mm3 (Normal) Range: 4.4-11.0 96-Hgz-693970:37 Comprehensive Metabolic Profil Comments: [facility] Lrtsdknglc5992 [address] [place], [place], [address] GAP 6 (Normal) Range: 5-15 CO2 27.0 [...] <126 mg/dLsuggests IMPAIRED HOMEOSTASIS per A.D.A. criteria. 87-Wfg-029063:37 Hemoglobin A1c Comments: [facility] Ltauctzwmw5715 [facility] [place], [address] HGB A1C 5.6 % (Normal) Range: 4.2-6.3 66-Qiv-941945:37 Lipid Profile Comments: [facility] Jkkageixmc0781 [facility] [place], [address] VLDL 17 mg/dL (Normal) Range: [...] 200-240 mg/dL Borderline >240 mg/dL High Risk 2-Bmi-692304:12 Factor II, DNA Analysis Comments: [facility] (refer to report for specific site)refer to report for address and phone number COMMENT Comment (Normal) Comments: Genetic Counselors are available for health care providersto discuss results at [phone] ([facility]).Methodology:DNA analysis of the Factor II gene was performed by PCRamplification followed by restric tion analysis. Thediagnostic sensitivity is >99% for both. All the tests mustbe combined with clinical information for the most accurateinterpretation. Molecular-based testing is highly accurate,but as in any laboratory test, diagnostic errors may occur.Matthewt SR, et al. Blood. 1996; 88:0259-6159.Diallo EA. Circulation. 2004; 110:e15-e18.Bobby I, et al. Arterioscler Thromb Vasc Biol. 1999;19:700 -703.Lance Shea, PhDRuthie Cooper, PhDAnahy Delgado, Lorena Beal, Xiomara Easley, PhDKelly Benjamin, PhDPerformed at: TG - [facility] JRT5654 [place], [place] [id number] villa: Vilma Butterfield MD, Phone: [phone] FACTOR II,DNA Comment (Normal) Comments: NEGATIVENo mutation identified.Comment:A point mutation (L43026I) in the factor II (prothrombin)gene is the [...] individual mutations. This assaydetects only the prothrombin [id number] mutation and doesnot measure genetic abnormalities elsewhere i n thegenome. Other thrombotic risk factors may be pursuedthrough systematic clinical laboratory analysis. Thesefactors include the R506Q ([place]) mutation in the Factor Vgene, plasma homocysteine levels , as well as testing fordeficiencies of antithrombin III, protein C and protein S. 00-Sgr-45351:42 Miscellaneous Comments: Comments: [id number],PLASMA,[facility](s) Ordered: [id number],PLASMA,[facility] Ujmsaszcmu9[address] [place], [address] Lab Procedure MISC Comments: TEST RESULT UNITS REFERENCE INTERVALAntithrombin III, Func/ImmunolAntithrombin Activity 97 % 75 - 135Antithrombin Antigen 97 % 75 - 130 LAB (Normal) TESTING PERFORMED AT [facility]. ORIGINAL REPORT ON FILE IN LAB CONTAINS ADDITIONAL TEST SITE INFORMATION. TEST 1 Throm 15.9 Comments: [facility] (refer to report for specific site)refer to report for address and phone number 9 bin {sec} Range: 0.0-20.0 - Time (Normal) Comments: Performed at: BN - Lab[address] [id number] Director: Joseph Velez MD, Phone: [phone] F e b - 2 0 1 6 9 : 4 2 :34 CBC W/Diff, Automated Comments: [facility] Qxcdefnyrx[address] [place], [place], [address] Absolute Lymph 1.34 {X10_3/ul} (Normal) Range: 0.83-4.51 [...] 4.6-6.2 WBC 5.3 K/mm3 (Normal) Range: 4.4-11.0 80-Oap-02391:34 Comprehensive Comments: Comments: [id number],Gabriela PALMERAdams [facility] [address]yenlo[address] [place], [address] ; apt today Metabolic Profil GAP 8 [...] for health careproviders to discuss results at [phone]).Methodology:DNA analysis of the Factor V gene was [...] PhDBette lugo, PhDKelly Benjamin, PhDPerformed at: - LabCoBeverly Ville [address] [place], [place] [id number] Director: Joseph Velez MD, Phone: [phone] at: [facility] XNW1435 [place], [place] [id number] Director: Vilma Butterfield MD, Phone: [phone] FACTOR V LEIDEN Comment (Normal) Comments: Result: [...] in the workup for venous thrombosis include [id number] mutation in the factor II (prothrombin) gene,protein S and C deficiency, and antithrombin deficiencies.Anticardiolipin antibody and lupus anticoagu lant analysismay be appropriate for certain patients, as well ashomocysteine levels.Contact your local [facility] for information on how to orderadditional testing if desired. :34 Hemoglobin A1c Comments: [facility] Bloglownuf[address] [place], [place], [address] HGB A1C 5.6 % (Normal) Range: 4.2-6.3 :34 Lipid Profile Comments: Comments: [id number],SPENCERUniversity Hospitals [facility] Ohyronhyra[address] [place], [address] VLDL 17 mg/dL (Normal) Range: [...] 200-240 mg/dL Borderline >240 mg/dL High Risk 43-Oiz-69239:34 Miscellaneous Lab Comments: Comments: [id number],BLUEANDRED,FZTest(s) Ordered: [id number] BLAKE FZWMemorial Health System Kxtiqjwscz7[address] [place], [address] Procedure MISC Comments: TEST RESULT UNITS REFERENCE [...] anticoagulant is not de tected. aCL and L6ZU7wmsmibbroy are normal.ANTIPHOSPHOLIPID SYNDROME ASSESSMENT SUMMARY-No evidence of a lupus anticoagulant, B2GP1 or aCLantibodies. As antibody titers may fluctuate with time,repeat te sting may be indicated if antiphospholipid syndromeis suspected.ANTIPHOSPHOLIPID SYNDROME ASSESSMENT DEFINITIONS-aCL- anticardiolipin (antibodies to cardiolipin); V1IP7-ybgxejjtcl to Beta-2 Glycoprotein 1; LA- lupus anticoagulant(which is identified with the dRVVT and/or hexagonalphospholipid neutralization assays); aPL- antibodies toprotein/phospholipid complexes such as LA, aCL, and C5DN2kagaxdcmss; APS- antiphospholipid syndrome; DTI-directthrombin inhibitors.-ELECTRICAL REPAIRER:For questions regarding panel interpretation, please contactHalle Arrington [...] Mathews et al. J Thromb Haemost. 2009; 7(10):0159-9077.(2) Tyrone Lugo et al. J Thromb H aemost. 2006;4(2):295-306.(3) Keith DA et al. Blood. 2007;110(9): 9016-9950. TESTING PERFORMED AT [facility]. ORIGINAL REPORT ON FILE IN LAB [...] Range: 58-150 :54 CBC W/Diff, Automated Comments: [facility] [address] [place], [place], [id number] Absolute Lymph 1.61 {X10_3/ul} (Normal) Range: 0.83-4.51 [...] 4.6-6.2 WBC 7.1 K/mm3 (Normal) Range: 4.4-11.0 08-Fke-668265:54 Comprehensive Metabolic Profil Comments: [facility] [address]ft[address] [place], [address] GAP 7 (Normal) Range: 5-15 CO2 26.0 [...] 7-18 GLU 98 mg/dL (Normal) Range: 70-110 09-Gxy-542561:54 Lipid Profile Comments: [facility] [address] [place], [address] ; apt today VLDL 19 [...] 21-Sep-20148:55 Comprehensive Metabolic Profil Comments: Test performed at:[facility] Opxrnznwhs5928 [facility] [place] [address] GAP 7 (Normal) Range: 5-15 [...] Comments: Please note revised CREATININE reference range puafbvjqm92/22/2015. BUN 15 mg/dL (Normal) Range: 7-18 GLU 103 mg/dL (Normal) Range: 70-110 :55 Hemoglobin A1c Comments: Test performed at:[facility] [address] [place] [address] HGB A1C 6.0 % (Normal) Range: 4.2-6.3 :55 Lipid Profile Comments: Test performed at:[facility] [address] [place] [address] VLDL 17 mg/dL (Normal) Range: 5-40 LDL [...] generated due to demographicSpecimen Comment: updates.Test performed at:[facility] Laboratory[address] [place] [address] dsDNA AB 12 {IU/mL} (Abnormal) Range: 0-9 Comments: Negative <5 Equivocal 5 - 9 Positive >9; ADDENDA: non-emergent because has apt today to discuss. 95-Ywv-373620:49 ANTINUCLEAR ANTIBODIES DIRECT Comments: Test performed at:[facility] [address] [place] [address] JOHN-DIRECT Positive (Abnormal) Comments: Performed at: [facility] Lab[address] [id number] Director: Reno Yanes PhD, Phone: [phone] 24-Mho-073943:49 CBC W/Diff, Automated Comments: Test performed at:[facility] Dvmupijqzd8120 [facility]. [place] [address] Absolute Lymph 1.22 {X10_3/ul} (Normal) Range: 0.83-4.51 [...] :49 Comprehensive Metabolic Profil Comments: Test performed at:[facility] Xtlclsqpaj6289 [facility] [place] [address] GAP 6 (Normal) Range: 5-15 [...] Range: 70-110 :49 CRP Comments: Test performed at:[facility] Vaycnykbuo0753 [facility] [place] [address] C-REACTIVE PROT < 2.90 mg/L (Normal) Range: 0.0-3.0 Comments: C-Reactive Protein (CRP) provides useful information for thediagnosis, therapy and monitoring of inflammatory processesand associated diseases. For the evaluation of Relative Riskfor Cardiovascular Dise ase, a High Sensitivity CRP (HSCRP)should be ordered. 49-Qqy-657715:49 Culture, Urine Comments: Test performed at:[facility] [address] [place] [address] CUUR See Note (Normal) Comments: Urine CultureCulture exhibits no growth.; ADDENDA: Pt has apt today, will discuss then 96-Zvp-278486:49 Erythrocyte Sed Rate Comments: Test performed at:[facility] [address] [place] [address] SED RATE 21 mm/h (Abnormal) Range: 0-20 36-Mcc-316898:49 Hemoglobin A1c Comments: Test performed at:[facility] [address] [place] [address] HGB A1C 5.8 % (Normal) Range: 4.2-6.3 84-Ybt-020506:49 Lipid Profile Comments: Test performed at:[facility] [address] [place] [address] VLDL 8 mg/dL (Normal) Range: [...] 200-240 mg/dL Borderline >240 mg/dL High Risk 15-Mta-090675:49 Microalb:Creat Ratio,Random UR Comments: Test performed at:[facility] [address] [place] [address] MALB:CREAT 12.2 {mg/g_CRE} (Normal) MICROALBUMIN,UR 17.2 mg/L (Normal) UR CREAT 140.0 mg/dL (Normal) :49 PSA,Total - Annual Screen Comments: Test performed at:[facility] [address] [place] [address] PSA,TOT SCREEN 0.47 ng/mL (Normal) Range: 0.00-4.00 Comments: This test was performed using the TPSA assay method for [employer] chemistry system. Values obtained with differentassay methods cannot be used interchangably.When changing PSA assays in the course of monitoring apatient, additional sequential testing should be carriedout to confirm baseline values. :49 Thyroid Stim Hormone (TSH) Comments: Test performed at:[facility] [address] [place], [place] [address] TSH 1.60 {uIU/mL} (Normal) Range: 0.358-3.74 :49 Urinalysis, Complete Comments: How was Urine Obtained? Urine, RandomTest performed at:[facility] [address] [place], [place] [address] MUCUS, URINE 0 SEEN {/hpf} (Normal) BACTERIA [...] How was Urine Obtained? Urine, RandomTest performed at:[facility] Cwzaftpzmj9843 [place] [address] MUCUS, URINE 2+ {/hpf} (Normal) [...] (Normal) CLARITY Clear (Normal) COLOR Yellow (Normal) 64-Lxf-916883:07 Comprehensive Metabolic Profil Comments: Test performed at:[facility] Ynvjgeofsp8795 [facility] [place], [place] [address] GAP 6 (Normal) Range: 5-15 CO2 28.0 [...] 7-18 GLU 108 mg/dL (Normal) Range: 70-110 15-Xth-504528:07 CPK Total, Creatine Kinase Comments: Test performed at:[facility] [address] [place] [address] CPK TOTAL 91 U/L (Normal) Range: 39-308 61-Fyg-574512:56 Rapid Flu (84545 x 2) Influenza A Ag negative (Normal) 8-Brl-369832:28 URINE WARREN CULTURE-MASSIEL COL Comments: PATIENT NOT FASTINGPERFORMED BY: [facility] Mjxyrg0136 [facility] [id number] Information: SRC:UR [id number] COUNT (29692) Result 1 ECV (Abnormal) Comments: Escherichia coli, [...] R Urine Final report Culture,Comprehensi (Abnormal) ve 4-Vcb-136137:58 Urinalysis, Office (55590) UA - LEUKOCYTE ESTERASE Small (Normal) UA - NITRITE Negative (Normal) URINE UROBILINGN MASSIEL TIMED 2 mg/dL (Normal) UA - PROTEIN 30 mg/dL (Normal) UA - PH 6.0 (Normal) Comments: 5.5 UA - BLOOD Hemolyzed Small (Normal) UA - SPECIFIC GRAVITY 1.030 (Abnormal) UA - KETONES Negative mg/dL (Normal) UA - BILIRUBIN Small (Normal) UA - GLUCOSE Negative (Normal) 9-Vzj-452466:41 URINE WARREN CULTURE-MASSIEL COL Comments: PATIENT NOT FASTINGPERFORMED BY: [facility]villeXoambj4331 [facility] [id number] Information: SRC: URINE COUNT (26227) Result 1 ECV (Abnormal) Comments: Escherichia coli, [...] R Urine Final report Culture,Comprehensi (Abnormal) ve 8-Kws-515057:27 Urinalysis, Office (83891) UA - LEUKOCYTE ESTERASE Trace (Normal) UA - NITRITE Negative (Normal) URINE UROBILINGN MASSIEL TIMED 2 mg/dL (Normal) UA - PROTEIN Negative mg/dL (Normal) UA - PH 6.0 (Normal) UA - BLOOD Negative (Normal) UA - SPECIFIC GRAVITY 1.010 (Normal) UA - KETONES Negative mg/dL (Normal) UA - BILIRUBIN Negative (Normal) UA - GLUCOSE Negative (Normal) 9-Mzr-132667:30 HgA1C , Office (22528) HgA1C , Office 5.7 % (Normal) Range: 4.6 - 7.1 2-Wrw-095342:10 URINE WARREN CULTURE-MASSIEL COL Comments: PATIENT NOT FASTINGPERFORMED BY: [facility] DenvilleVtlxfq4640 [facility] [id number] Information: SRC:UR [id number] COUNT (00527) Result 1 NG36 (Normal) Comments: No growth in 36 - 48 hours. Urine Culture,Comprehensive Final report (Normal) 4-Ees-439412:58 CBCD PATHR Reviewed (Normal) RBCM NORM C+C [...] 4.6-6.2 WBC 5.2 K/mm3 (Normal) Range: 4.4-11.0 8-Cah-139013:58 CMP GAP 7 (Normal) Range: 5-15 CO2 [...] CHOL 155 mg/dL (Normal) Comments: <200 mg/dL Jbokbupsa202-125 mg/dL Borderline>240 mg/dL High Risk TRIG 121 [...] (Normal) UCLAR Clear (Normal) UCOL Yellow (Normal) 07-Tat-377222:20 CUUR URC See Note (Normal) Comments: ESBL+ [...] >=320 R (NF) indicates non-formulary drug at [facility]. Approval by Infectious DiseaseSpecialist required before non-formulary drugs may beordered and/or dispensed. 76-Qrk-262027:20 UA Comments: How was Urine Obtained? CLEAN CATCH ANGE 500 /ul (Abnormal) MICA Negative (Normal) UOB 25 /ul (Abnormal) LEESA 6.0 (Normal) Range: 5.0 - 8.0 uPROTU 30 mg/dL (Abnormal) UROBU 1 mg/dL (Abnormal) KETU Negative mg/dL (Normal) SGU 1.015 (Normal) Range: 1.002-1.030 BILIU Negative mg/dL (Normal) GLUR Normal mg/dL (Normal) UCLAR Cloudy (Normal) UCOL Yellow (Normal) 45-Ahk-053808:27 A1C 5.6 % (Normal) Range: 4.2-6.3 49-Ynn-729264:27 B12 574 pg/mL (Normal) Range: 211-911 42-Imz-508147:27 CBC MPV 8.8 fL (Normal) Range: 6.2-12.0 [...] 4.6-6.2 WBC 6.4 K/mm3 (Normal) Range: 4.4-11.0 66-Pgb-675342:27 CUUR URC Culture exhibits no growth. (Normal) 36-Jix-577602:27 EBGM EBNA 81.6 U/mL (Abnormal) Range: 0.0-17.9 Comments: Negative <18.0Equivocal 18.0 - 21.9Positive >21.9 tEBINT Comment (Normal) Comments: EBV Interpretation ChartInterpretation EBV-IgM VCA-IgG EBNA-IgG EA(D)-IgGEBV Seronegative - - - -Early Phase + - - -Acute Primary + + - +or-InfectionConvalescence/Past - + + +or-InfectionReactivated +or- + + +Infection+ Antibody Present - Antibody Absen tPerformed at: [facility] Lab[address] [id number] Director: Melquiades Hector MD, Phone: [phone] EBEAG <9.0 U/mL (Normal) Range: 0.0-8.9 Comments: [...] 4.6-6.2 WBC 6.0 K/mm3 (Normal) Range: 4.4-11.0 1-Qen-612390:36 CKMB Comments: Serial Specimen #1, #2 or #3? 1'TROP' Serial specimen #1, #2, #3, or #4: 1 CPKMB 1.6 ng/mL (Normal) Range: 0.0-5.0 Comments: CK-MB and RI Interpretation MB Relative IndexNon-AMI <or= 5 NAIndeterminate > 5 <or= 4AMI > 5 > 4 CPK 167 U/L (Normal) Range: 39-308 0-Vjb-497484:36 TROP < 0.02 ng/mL (Normal) Comments: Serial Specimen #1, #2 or #3? 1'TROP' Serial specimen #1, #2, #3, or #4: 1 Comments: TROPONIN-I EXPECTED VALUES <0.05 NEGATIVE0.06 - 0.59 AT RISK OF ME> OR = 0.60 SUGGEST ME :47 HgA1C , Office (76538) HgA1C , Office 6.3 % (Normal) Range: [...] CHOL 147 mg/dL (Normal) Comments: <200 mg/dL Fxmklqfmv056-720 mg/dL Borderline>240 mg/dL High Risk :55 Rapid Flu (59668 x 2) Comments: neg Influenza A Ag negative (Normal) 9-Biy-788101:02 FECAL OCCULT- Tubes sent home (43720) FECAL OCCULT HGB ASSAY, QUAL, 1-3 negative (Normal) [facility] :39 B12 510 pg/mL (Normal) Range: [...] {IU/mL} (Normal) Range: 0-100 Comments: Performed at: [facility] Lab[address] Director: Melquiades Hector MD, Phone: [phone] IMM 55 mg/dL (Normal) Range: 40-230 DEBBY 182 mg/dL (Normal) Range: 91-414 IMG 788 mg/dL (Normal) Range: 700-1600 :39 LDH 190 U/L (Normal) Comments: Serial Specimen #1, #2 or #3? 1Is Patient Taking Vitamins or Folic Acid Supplements? N Range: 84-246 :39 PROEL Comments: Is Patient Fasting? Y [id number] Comment (Normal) Comments: Protein electrophoresis scan will follow via computer,mail, or retail field supervisor delivery. tPROELAG 1.6 (Normal) Range: 0.7-2.0 tPROELIN [...] Supplements? N Range: 250-450 :56 CULTURE, SPUTUM (43739) Comments: PATIENT NOT FASTINGPERFORMED BY: [facility] Ebudil8349 [facility] [id number] Information: SRC:[facility] [id number] Result 1 RRF (Normal) Comments: Routine respiratory ashkan Lower Respiratory Culture Final report (Normal) :32 HgA1C , Office (32780) HgA1C , Office 5.9 % (Normal) Range: 4.6 - 7.1 :32 Blood Glucose , Office (52905) Blood Glucose , Office 90 (Normal) :51 [...] 4.6-6.2 WBC 7.2 {k/mm3} (Normal) Range: 4.4-11.0 17-Wto-579184:51 CMP GAP 9 (Normal) Range: 5-15 CO2 [...] CHOL 149 mg/dL (Normal) Comments: <200 mg/dL Npkirspye468-430 mg/dL Borderline>240 mg/dL High Risk :51 PSA 0.51 ng/mL (Normal) Range: 0.00-4.00 Comments: This test was performed using the TPSA assay method for theBucmi chemistry system. Values obtained with differentassay methods cannot be used interchangably.When changing PSA assays in the course of monitoring apatient, additional sequential testing should be carriedout to confirm baseline values. 68-Pdl-545369:59 MISC (Normal) Comments: TEST RESULT LIMITSAntinuclear Antibodies, [...] 4.6-6.2 WBC 7.8 {k/mm3} (Normal) Range: 4.4-11.0 47-Cru-350555:32 CMP GAP 10 (Normal) Range: 5-15 CO2 [...] CHOL 154 mg/dL (Normal) Comments: <200 mg/dL Ehqfdrhmy154-083 mg/dL Borderline>240 mg/dL High Risk HDL 64 [...] TSH 1.77 {uIU/mL} (Normal) Range: 0.358-3.74 :32 [facility] 0 SEEN {/hpf} (Normal) UBAC [...] (Normal) UCLAR Clear (Normal) UCOL Yellow (Normal) 81-Jlb-773232:11 AFBCS tAFBC See Note Comments: TESTING PERFORMED AT [facility]. ORIGINAL REPORT ONFILE IN LAB CONTAINS ADDITIONAL TEST SITE INFORMATION. (Normal) CULTURE, ACID FAST FINAL CULTURE REPORT TO FOLLOW IN 6 WEEKS. tAFBSF See Note Comments: TESTING PERFORMED AT [facility]. ORIGINAL REPORT ONFILE IN LAB CONTAINS ADDITIONAL TEST SITE INFORMATION. (Normal) ACID FAST BACILLUS SMEARAcid Fast Smear from Concentrated Specimen :Negative 78-Vsy-803447:11 CUFST FUNST See Note Comments: TESTING PERFORMED AT [facility]. ORIGINAL REPORT ONFILE IN LAB CONTAINS ADDITIONAL TEST SITE INFORMATION. (Normal) FUNGUS STAIN No yeast or mold observed. CUF See Note Comments: TESTING PERFORMED AT [facility]. ORIGINAL REPORT ONFILE IN LAB CONTAINS ADDITIONAL TEST SITE INFORMATION. (Normal) CULTURE, FUNGUSNO YEAST OR MOLD ISOLATED AFTER 4 WEEKS. 28-Okf-901891:11 CUSP RESPC See Note (Normal) Comments: No [...] BACILLUS SMEARNO ACID-FAST BACILLI OBSERVED ON SMEAR. 50-Lag-640747:23 CUFST FUNST See Note Comments: TESTING PERFORMED AT [facility]. ORIGINAL REPORT ONFILE IN LAB CONTAINS ADDITIONAL TEST SITE INFORMATION. (Normal) FUNGUS STAIN No yeast or mold observed. CUF See Note Comments: TESTING PERFORMED AT [facility]. ORIGINAL REPORT ONFILE IN LAB CONTAINS ADDITIONAL TEST SITE INFORMATION. (Normal) CULTURE, FUNGUSNO YEAST OR MOLD ISOLATED AFTER 4 WEEKS. 89-Aqc-021385:21 AFBCS tAFBC See Note Comments: TESTING PERFORMED AT [facility]. ORIGINAL REPORT ONFILE IN LAB CONTAINS ADDITIONAL TEST SITE INFORMATION. (Normal) CULTURE, ACID FAST FINAL CULTURE REPORT TO FOLLOW IN 6 WEEKS. Tirso See Note Comments: TESTING PERFORMED AT [facility]. ORIGINAL REPORT ONFILE IN LAB CONTAINS ADDITIONAL TEST SITE INFORMATION. (Normal) ACID FAST BACILLUS SMEARAcid Fast Smear from Concentrated Specimen :Negative 54-Juy-450179:21 CUFST FUNST See Note Comments: TESTING PERFORMED AT [facility]. ORIGINAL REPORT ONFILE IN LAB CONTAINS ADDITIONAL TEST SITE INFORMATION. (Normal) FUNGUS STAIN YEAST OBSERVED CUF See Note Comments: [facility] ORIGINAL REPORT ONFILE IN LAB CONTAINS ADDITIONAL TEST SITE INFORMATION. (Normal) CULTURE, FUNGUSNO YEAST OR MOLD ISOLATED AFTER 4 WEEKS. 16 AFBSTN SEE Comments: Specimen submitted to Anatomical Pathology Department [facility]. - PATHOLOGY ay REPORT -2 (Normal) 32 2: 00 16 AFBSTN SEE Comments: PATIENT BROUGHT SPECIMEN IN ON 07/11/12. - PATHOLOGY Comments: Specimen submitted to Anatomical Pathology Department fortesting. ay REPORT -2 (Normal) 30 :0 0 12 AFBSTN SEE Comments: PATIENT BROUGHT SPECIMEN IN ON 07/11/12 - PATHOLOGY Comments: Specimen submitted to Anatomical Pathology Department [facility]. ay REPORT -2 (Normal) 39 :0 0 45-Jfb-884610:05 WARREN CULTURE-OTHER (22835) Comments: PATIENT NOT FASTINGPERFORMED BY: [facility] Nnfzjj5813 [facility] [id number] Information: SRC: THROAT Result 1 RRF (Normal) Comments: Routine respiratory ashkan Upper Respiratory Culture Final report (Normal) 21-Xiv-173638:23 Rapid Strep Test, Office (28821) Rapid Strep Test, Office Negative (Normal) 4-Qlz-280345:15 CBCMD RBCM NORM C+C {NORMAL} (Normal) PE [...] 4.6-6.2 WBC 8.3 K/mm3 (Normal) Range: 4.4-11.0 6-Vqb-509242:15 CMP GAP 10 (Normal) Range: 5-15 CO2 [...] 7-18 GLU 81 mg/dL (Normal) Range: 70-110 8-Nzs-901077:15 LIPID VLDL 12 mg/dL (Normal) Range: 5-40 [...] Alvarado M.D.January 27, 2012 at 2:39:03 PM [id number] Signed GP/GP If you are the refe rring physician and would like to consult with theradiologist who provided this interpretation, please contact Itzel Linares at [phone]. If this radiologist is unavailable, youwill be dir ected to another radiologist to assist. If you are a patient with a question regarding this report, pleasecontactyour referring physician directly. Professional Interpretation Provided By: [facility], Phone , These documents contain legally protected [...] Schwarz D.O.January 26, 2012 at 8:55:02 PM [id number] Signed BE/B E If you are the referring physician and would like to consult with theradiologist who provided this interpretation, please contact Yogi Schwarz D.O. at [phone]. If this radiologist is unavailable, yo u will bedirected to another radiologist to assist. If you are a patient with a question regarding this report, pleasecontactyour referring physician directly. Professional Interpretation Provided By: [facility], Phone , These documents contain legally protected [...] 01/26/12 2100 Sign by: Yogi Schwarz MD 28-Fbo-327674:13 CUSP RESPC See Note (Normal) Comments: No [...] GRAM POSITIVE COCCI IN CHAINS AND CLUSTERS 59-Kqj-355966:56 HgA1C , Office (63673) HgA1C , Office 6.1 % (Normal) Range: 4.6 - 7.1 20-Acz-649030:56 Blood Glucose , Office (87939) Blood Glucose , Office 116 (Normal) : [...] :01 TSH 1.98 {uIU/mL} (Normal) Range: 0.358-3.74 53-Xhu-192921:25 CMP GAP 7 (Normal) Range: 5-15 CO2 [...] performed using the TPSA assay method for theBucmi chemistry system. Values obtained with differentassay methods cannot be used interchangably.When ch anging PSA assays in the course of monitoring apatient, additional sequential testing should be carriedout to confirm baseline values. :25 [facility] 0 SEEN {/hpf} (Normal) UBAC [...] UCOL YELLOW (Normal) :44 HgA1C , Office (70476) HgA1C , Office 6.3 % (Normal) Range: 4.6 - 7.1 :44 Blood Glucose , Office (42087) Blood Glucose , Office 114 (Normal) :13 HgA1C , Office (16969) HgA1C , Office 6.2 % (Normal) Range: 4.6 - 7.1 :13 Blood Glucose , Office (08576) Blood Glucose , Office 100 (Normal) :55 HgA1C , Office (10612) HgA1C , Office 5.8 % (Normal) Range: 4.6 - 7.1 :55 Blood Glucose , Office (55033) Blood Glucose , Office 85 (Normal) :51 WARREN CULTURE-OTHER (41700) Comments: PATIENT NOT FASTINGPERFORMED BY: [facility]villeJpfdwd3438 [facility] [id number] Information: SRC:THRT [id number] Result 1 Yeast isolated. (Normal) Comments: Heavy growthRequest for further identification must be madewithin 1 week. Upper Respiratory Culture Final report (Normal) :14 Rapid Strep Test, Office (11024) Rapid Strep Test, Office Negative (Normal) :24 [...] serialsampling is recomme nded. TESTING PERFORMED AT [facility]. ORIGINAL REPORT ON FILE IN LAB CONTAINS [...] cells for the productionof interferon gamma.Performed at: [facility] Lab[address] [id number] Director: Joseph Velez MD, Phone: [phone] QFT AG - NIL 0 {IU/mL} (Normal) [...] >240 mg/dL High Risk :03 VIT D,25 25879 38.0 ng/mL (Normal) Comments: appt 03-08-10 Range: 32.0-100.0 Comments: Effective January 11, 2011 Vitamin D, 25-Hydroxy reference intervals will be changing to 30-100. .Recent studies consider the lower li hcilo of 32.0 ng/mL to be athreshold for optimal health.Mark LUDWIG. J Nutr. 2004;135(2):317-22.Performed at: [facility] Lab[address] Director: Lakshmi Pino MD, Phone: [phone] VITAMIN B12 696 pg/mL (Normal) Range: 254-1320 Comments: There is a low frequency possibility that high titers ofintrinsic blocking antibodies may not be completely inactivated during the reaction pretreatment stepof this testing method. If test results are i n conflictwith the clinical diagnosis, patient should be testedfor the presence of intrinsic factor blocking antibodies. 28-Eaa-493250:05 Rapid Strep Test, Office (74643) Rapid Strep Test, Office Negative (Normal) :00 CULTURE, THROAT See Note (Normal) Comments: Normal throat ashkan isolated. No beta-hemolyticstreptococcus isolated. 41-Gmz-10580:00 CHEST WITHOUT CONTRAST Radiology Report See Note [...] 10/11/10 0244 Sign by: Clarke Butt MD 98-Xkz-268163:58 GALLBLADDER Radiology Report See Note (Normal) Comments: [...] 10/08/10 1402 Sign by: Jake Alvarado MD 20-Rbx-20662:00 CULTURE, URINE URINE CULTURE See Note {CFU/mL} (Normal) Comments: COLONY COUNT <1000 ORGANISM 1: MIXED GRAM POSITIVE ORGANISMS 33-Aio-145205:19 Urinalysis, Office (39181) UA - BILIRUBIN Negative (Normal) UA - BLOOD Non Hemolyzed Trace (Normal) UA - GLUCOSE Negative (Normal) UA - KETONES Negative mg/dL (Normal) UA - LEUKOCYTE ESTERASE Negative (Normal) UA - NITRITE Negative (Normal) UA - PH 7.0 (Normal) UA - PROTEIN Negative mg/dL (Normal) UA - SPECIFIC GRAVITY 1.010 (Normal) URINE UROBILINGN MASSIEL TIMED Normal mg/dL (Normal) 98-Qsx-90900:00 ABDOMEN/PELVIS WITHOUT CONT Radiology Report See Note [...] on 09/16/101715 Sign by: Cosmo Mahmood MD 61-Mnd-669505:11 HgA1C , Office (76366) HgA1C , Office 6.2 % (Normal) Range: 4.6 - 7.1 :11 Blood Glucose , Office (39862) Blood Glucose , Office 90 (Normal) :28 [...] mg/dL High Risk :53 HgA1C , Office (73351) HgA1C , Office 6.4 % (Normal) Range: 4.6 - 7.1 :53 Blood Glucose , Office (53700) Blood Glucose , Office 108 (Normal) :39 CULTURE, URINE URINE CULTURE Culture exhibits no growth. (Normal) :54 Urinalysis, Office (79911) UA - BILIRUBIN Negative (Normal) UA - BLOOD Negative (Normal) UA - GLUCOSE Negative (Normal) UA - KETONES Negative mg/dL (Normal) UA - LEUKOCYTE ESTERASE Negative (Normal) UA - NITRITE Negative (Normal) UA - PH 7.0 (Normal) UA - PROTEIN Negative mg/dL (Normal) UA - SPECIFIC GRAVITY 1.010 (Normal) URINE UROBILINGN MASSIEL TIMED Normal mg/dL (Normal) :37 HgA1C , Office (99756) HgA1C , Office 6.1 % (Normal) Range: 4.6 - 7.1 :37 Blood Glucose , Office (44358) Blood Glucose , Office 96 (Normal) :46 [...] 4.6-6.2 WBC 7.5 K/mm3 (Normal) Range: 4.4-11.0 64-Oem-956686:46 COMP METABOLIC GAP 7 (Normal) Range: 5-15 [...] (Normal) Range: 0.0-4.0 :22 HgA1C , Office (89528) HgA1C , Office 6.1 % (Normal) Range: 4.6 - 7.1 :22 Blood Glucose , Office (13065) Blood Glucose , Office 123 (Normal) :47 HgA1C , Office (26204) HgA1C , Office 6.3 % (Normal) Range: 4.6 - 7.1 :47 Blood Glucose , Office (88458) Blood Glucose , Office 103 (Normal) :05 [...] (Normal) GLU 107 mg/dL (Normal) Range: 70-110 64-Hyb-37497:05 LIPID HDL 58 mg/dL (Normal) Comments: Reference RangeHDL <40 mg/dL Low HDL CholesterolHDL >or= 60 mg/dL High HDL Cholesterol LDL 77 mg/dL (Normal) Range: 0-130 VLDL 7 mg/dL (Normal) Range: 5-40 CHOL 142 mg/dL (Normal) Comments: <200 mg/dL Khlamqlpm125-770 mg/dL Borderline>240 mg/dL High Risk TRIG 35 mg/dL (Normal) Comments: Serum Triglycerides Reference IntervalNormal <150 mg/dLBorderline high 150 - 199 mg/dLHigh 200 - 499 mg/ dLVery High > or = 500 mg/dL 6-Bcc-684682:24 HgA1C , Office (55963) HgA1C , Office 6.2 % (Normal) Range: 4.6 - 7.1 3-Ozs-469915:23 Blood Glucose , Office (79796) Blood Glucose , Office 96 (Normal) 61-Ewp-711461:07 GASTRIC EMPTYING STUDY Radiology Report See Note (Normal) Comments: Exam Number: [id number] GASTRIC EMPTYING STUDY A gastric emptying study was performed. The patient ingested 1 mCi afZo28l Sulfur colloid with oatmeal. HISTORYThis is a 58-year-old male patie nt with hist ory of bloating andgastroesophageal reflux. FINDINGSAt 1 hour, there is complete emptying of the stomach of theradiopharmaceutical. This is a normal study. IMPRESSIONNormal examination. There is no e vidence of gastric retention. Reported By: WILFREDO ALVARADO 4-Nwv-117527:33 HgA1C , Office (54094) HgA1C , Office 5.9 % (Normal) Range: 4.6 - 7.1 :33 Blood Glucose , Office (09595) Blood Glucose , Office 111 (Normal) :08 [...] Range: 0.0-4.0 :46 Blood Glucose , Office (87679) Blood Glucose , Office 156 (Normal) :46 HgA1C , Office (67175) HgA1C , Office 5.8 % (Normal) Range: 4.6 - 7.1 :12 HgA1C , Office (20069) Comments: done HgA1C , Office 5.8 % (Normal) Range: 4.6 - 7.1 :12 Blood Glucose , Office (59851) Comments: done Blood Glucose , Office 99 [...] mg/dL (Normal) Range: 200-370 Comments: Performed At: [address] [id number] Blood Glucose , Office (85627) Blood Glucose , Office 92 (Normal) :44 HgA1C , Office (44378) HgA1C , Office 5.7 % (Normal) Range: 4.6 - 7.1 :40 GLU GTT-2 HOUR 191 mg/dL (Abnormal) Comments: 2HR GTT GLU 2 HR GLU GTT-2 HOUR from 216:Q68691V. Range: 70-120 :20 GLU GTT-1 HOUR 178 mg/dL (Abnormal) Comments: 2HR GTT GLU 1 HR GLU GTT-1 HOUR from 216:M68878L. Range: 120-170 :40 GLU GTT-30 min. 183 mg/dL (Abnormal) Comments: 2HR GTT GLU 1/2 HR GLU GTT-30 min. from 216:Y57023X. Range: 110-170 :01 GLU GTT-FASTING 106 mg/dL (Normal) Comments: 2HR GTT FASTING GLU GTT-FASTING from 216:W17109Z. Range: 70-110 Comments: GLUCOSE TOLERANCE TEST Reference [...] was performed using the TPSA method for the[employer]active [employer]or chemistry system.Values obtained with different assay methods [...] :12 TSH 1.38 {uIU/mL} (Normal) Range: 0.34-4.82 29-Tgs-67268:03 CHEST WITH CONTRAST Radiology Report See Note (Normal) Comments: Exam Number: [id number] CHEST CT WITH INTRAVENOUS CONTRAST. REASON FOR [...] No growth in 5 6:14 days. (Normal) 5-Wqb-558577:14 CBCD,SMEAR DIFF BAND 1 % (Normal) Range: [...] 47-70 WBC 5.6 K/mm3 (Normal) Range: 4.4-11.0 7-Yjq-047186:14 COMP METABOLIC A/G 1.2 {RATIO} (Normal) Range: [...] T PROT 6.3 g/dL (Abnormal) Range: 6.4-8.2 66-Qdx-573249:19 EBVIgG/M [id number] EB-EA IgG 15337 79 AU/mL (Normal) Range: 0-99 Comments: Negative <100 Equivocal 100 - 120 Positive >120 EB-NAg [id number] 656 AU/mL (Abnormal) Range: 0-99 Comments: Negative <100 Equivocal 100 - 120 Positive >120 EB-VCA [id number] 2296 AU/mL (Abnormal) Range: 0-99 Comments: Negative <100 Equivocal 100 - 120 Positive >120 EB-VCA FuQ02269 9 AU/mL (Normal) Range: 0-99 Comments: Negative [...] Antibody Present - Antibody AbsentPerformed At: [facility] [place], [place] [id number] 19-Xog-071035:00 CULTURE, THROAT See Note (Normal) Comments: Normal throat ashkan isolated. No beta-hemolyticstreptococcus isolated. 53-Krm-250225:35 Rapid Strep Test, Office (43199) Rapid Strep Test, Office Negative (Normal) :40 [...] 11/09/06 TC:5 REPORT SIGNED: JOSE MIGUEL SONSHI 11/10/0607-Nov-200629-Ivn-538024:55 ALDOLASE 2030 2.3 U/L (Normal) Range: 1.2-7.6 Comments: Performed At: [facility] [place], [place] [id number] At: [facility] [id number] 52-Nix-572775:55 JOHN-D [id number] JOHN-DIRECT 9 U/mL (Normal) Range: 0-99 Comments: [...] 4.9 {IU/mL} (Normal) Range: 0.0-13.9 :55 TESTOST [id number] TESTOSTER %FREE 2.87 % (Normal) Range: 1.50-4.20 [...] Report See Note (Normal) Comments: Exam Number: [id number] TESTICULAR ULTRASOUND HISTORYTesticular swelling. High resolution real [...] Reported By: MAYELIN DE LA FUENTE M.D. 6-Hcy-387422:45 HIP, MIN 2 VIEWS Radiology Report See Note (Normal) Comments: Exam Number: [id number] FIVE VIEW LUMBAR SPINE AP, LATERAL, BOTH [...] Report See Note (Normal) Comments: Exam Number: [id number] FIVE VIEW LUMBAR SPINE AP, LATERAL, BOTH [...] degenerative changes. Reported By: REMIGIO PURCELL M.D. 8-Vgq-676204:44 HIP, MIN 2 VIEWS Radiology Report See Note (Normal) Comments: Exam Number: [id number] FIVE VIEW LUMBAR SPINE AP, LATERAL, BOTH [...] degenerative changes. Reported By: REMIGIO PURCELL M.D. 08-Rov-749993:43 CHEST, PA AND LATERAL Radiology Report See Note (Normal) Comments: Exam Number: [id number] PA AND LATERAL CHEST HISTORYShortness of breath. [...] 15, 2005. Reported By: EDVIN MARIE M.D. 65-Jof-858453:25 ALDOLASE 2030 3.0 U/L (Normal) Range: 1.2-7.6 Comments: Performed At: [address] [id number] 36-Ggl-289512:25 JOHN-D [id number] JOHN-DIRECT 46 U/mL (Normal) Range: 0-99 Comments: Negative <100 Equivocal 100 - 120 Positive >120 27-Cgq-311589:25 C-REACTIVE PROT 1.07 mg/L (Normal) Range: 0.0-6.0 Comments: Test performed using the Dimension C-Reactive ProteinExtended Range assay method. This assay meets the AHA/CDC 2003 recommendations fordetermining patients at high risk for cardiovasculardisease. Reference: High risk CRP >3.0 mg/L 22-Oqc-657077:25 CBCD BASO% 0.4 % (Normal) Range: 0-1 [...] CPK TOTAL 172 U/L (Normal) Range: 35-232 95-Nub-910345:25 ESR SED RATE 13 mm/h (Normal) Range: 0-20 99-Luf-217314:25 RA LATEX 6502 5.2 {IU/mL} (Normal) Range: [...] morphology Planned Observations CBC W/AUTO DIFF WBC (66482)Indication: Hypertension, benign On: 18-Fmj-83766:51 Request METABOLIC PANEL, COMPREHENSIVE (46740)Indication: Hypertension, benign On: 37-Zsg-53496:51 Request LIPID PANEL (84851)Indication: Other hyperlipidemia On: :50 Request CULTURE,FUNGUS W/STAIN 954420 (80632)Indication: Bronchiectasis On: :59 Request CULTURE, SPUTUM (63881)Indication: Moderate persistent asthma without complication On: :21 Request HGB A1C (13782)Indication: Abnormal glucose tolerance test On: :10 Request CBC with auto diff (73379)Indication: Abnormal glucose tolerance test On: :10 Request METABOLIC PANEL, COMPREHENSIVE (59815)Indication: Abnormal glucose tolerance test On: : Request LIPID PANEL (41775)Indication: Other hyperlipidemia On: :10 Request PSA (PROSTATE SPECIFIC ANTIGEN) (V76.44)Indication: Encounter for screening for malignant neoplasm of prostate (Renamed from Screening for prostate cancer) On: :09 Request METABOLIC PANEL, COMPREHENSIVE (32902)Indication: Essential hypertension On: 2-Iwf-680632:58 Request CBC with auto diff (86541)Indication: Hypertension, benign On: :53 Request METABOLIC PANEL, COMPREHENSIVE (45639)Indication: Abnormal glucose tolerance test On: :52 Request MICROALBUMIN: CREATININE RATIO (10635) AND (49089)Indication: Abnormal glucose tolerance test On: :52 Request HGB A1C (73838)Indication: Abnormal glucose tolerance test On: :52 Request LIPID PANEL (80716)Indication: Other hyperlipidemia On: :52 Request LIPID PANEL (21181)Indication: Other hyperlipidemia On: 3-Duq-819169:30 Request CBC W/AUTO DIFF WBC (18726)Indication: Hypertension, benign On: :29 Request METABOLIC PANEL, COMPREHENSIVE (45688)Indication: Hypertension, benign On: 8-Snl-092786:29 Request IMMUNOGLOBULIN G (IgG) (11161)Indication: Abnormal blood chemistry On: 90-Klf-652736:02 Request Comments: PLEASE DRAW WITH OTHER LABS IN 2016 serum free light chains (61730)Indication: Abnormal blood chemistry On: 40 Request serum immunofixation (34096)Indication: Abnormal blood chemistry On: 40 Request PSA (PROSTATE SPECIFIC ANTIGEN) (V76.44)Indication: Encounter for screening for malignant neoplasm of prostate (Renamed from Screening for prostate cancer) On: 40 Request LIPID PANEL (20737)Indication: Other hyperlipidemia On: Request CBC with auto diff (39800)Indication: Abnormal glucose tolerance test On: :39 Request METABOLIC PANEL, COMPREHENSIVE (90546)Indication: Abnormal glucose tolerance test On: 39 Request MICROALBUMIN: CREATININE RATIO (91383) AND (49514)Indication: Abnormal glucose tolerance test On: 39 Request HGB A1C (77225)Indication: Abnormal glucose tolerance test On: 39 Request LIPID PANEL (21246)Indication: Other hyperlipidemia On: :58 Request urine immunofixation (02157)Indication: Abnormal blood chemistry On: :34 Request serum immunofixation (45460)Indication: Abnormal blood chemistry On: :34 Request MICROALBUMIN: CREATININE RATIO (04272) AND (03640)Indication: Abnormal glucose tolerance test On: :32 Request HGB A1C (15687)Indication: Abnormal glucose tolerance test On: :32 Request CBC W/AUTO DIFF WBC (87397)Indication: Hypertension, benign On: :30 Request METABOLIC PANEL, COMPREHENSIVE (84465)Indication: Hypertension, benign On: :30 Request LIPID PANEL (79430)Indication: Other hyperlipidemia On: :30 Request LIPOPROTEIN, BLD, BY NMR (93205)Indication: Other hyperlipidemia On: 42-Sjx-878523:14 Request CBC WITH MANUAL DIFF (11355)Indication: Essential hypertension On: 22-Fdn-413217:14 Request Metabolic Panel, Comprehensive (28635)Indication: Essential hypertension On: 89-Ljr-798710:14 Request CBC W/AUTO DIFF WBC (13078)Indication: Abnormal glucose tolerance test On: : Request LIPOPROTEIN, BLD, BY NMR (25318)Indication: Other hyperlipidemia On: : Request METABOLIC PANEL, COMPREHENSIVE (70640)Indication: Abnormal glucose tolerance test On: : Request Anti-TPO Antibody (58801)Indication: Abnormal blood chemistry On: Request T4, FREE (THYROXINE) (19396)Indication: Abnormal blood chemistry On: Request T3, FREE (TRIDOTHYRONINE) (59347)Indication: Abnormal blood chemistry On: Request TSH (45271)Indication: Abnormal blood chemistry On: : Request P-ANCA & C-ANCA (ANCA PROFILE) 38938 x2 and 46447 s0Btraepreat: Acute recurrent maxillary sinusitis On: Request JOHN (ANTINUCLEAR ANTIBODY) (66901)Indication: Abnormal blood chemistry On: : Request RHEUMATOID FACTOR-QUANT (08365)Indication: Abnormal blood chemistry On: : Request SED RATE ERYTHROCYTE (88502)Indication: Abnormal blood chemistry On: Request C-REACTIVE PROTEIN (97595)Indication: Abnormal blood chemistry On: :56 Request CBC with auto diff (99301)Indication: Hypertension, benign On: : Request MICROALBUMIN: CREATININE RATIO (86179) AND (73718)Indication: Abnormal glucose tolerance test On: : Request METABOLIC PANEL, COMPREHENSIVE (55383)Indication: Abnormal glucose tolerance test On: : Request HGB A1C (73482)Indication: Abnormal glucose tolerance test On: : Request METABOLIC PANEL, COMPREHENSIVE (97320)Indication: Hypertension, benign On: : Request LIPID PANEL (10447)Indication: Other hyperlipidemia On: : Request PSA (PROSTATE SPECIFIC ANTIGEN) (V76.44)Indication: Encounter for screening for malignant neoplasm of prostate (Renamed from Screening for prostate cancer) On: 31-Xuu-754809:59 Request Factor 2 (Prothrombin) Gene Mutation (54282)Indication: Other symptoms involving cardiovascular system On: 1-Dlc-713084:13 Request MICROALBUMIN: CREATININE RATIO (39086) AND (53984)Indication: Abnormal glucose tolerance test On: :53 Request HGB A1C (05966)Indication: Abnormal glucose tolerance test On: :53 Request LIPID PANEL (71427)Indication: Other hyperlipidemia On: :53 Request CBC W/AUTO DIFF WBC (72844)Indication: Hypertension, benign On: :53 Request METABOLIC PANEL, COMPREHENSIVE (39262)Indication: Hypertension, benign On: :53 Request CBC with auto diff (19917)Indication: Hypertension, benign On: 0-Vmu-877173: Request METABOLIC PANEL, COMPREHENSIVE (42464)Indication: Hypertension, benign On: :25 Request LIPID PANEL (37481)Indication: Other hyperlipidemia On: 8-Mnt-309573:25 Request Factor V Leiden (99315)Indication: Deep vein thrombosis of lower extremity On: 30-Jkh-810425:24 Request CLOTTING FACTOR II (78092)Indication: Deep vein thrombosis of lower extremity On: 61-Rpk-721321:24 Request ANTITHROMBIN III ACTIVTY (15001)Indication: Deep vein thrombosis of lower extremity On: 31-Sal-300429:24 Request Antiphospholipid atb (70481)Indication: Deep vein thrombosis of lower extremity On: 86-Bjz-958978:24 Request Protein C Profile (91758)Indication: Deep vein thrombosis of lower extremity On: 44-Irv-839212:24 Request Protein S Profile (24765)Indication: Deep vein thrombosis of lower extremity On: 99-Set-487465:24 Request Hemoglobin Glyclated (HGB A1C) (99336)Indication: Abnormal glucose tolerance test On: 93-Ugr-500856:23 Request CBC W/AUTO DIFF WBC (69721)Indication: Abnormal glucose tolerance test On: 4-Vfb-671283:43 Request MICROALBUMIN: CREATININE RATIO (29194) AND (52605)Indication: Abnormal glucose tolerance test On: :43 Request METABOLIC PANEL, COMPREHENSIVE (06441)Indication: Abnormal glucose tolerance test On: :43 Request LIPID PANEL (12483)Indication: Other hyperlipidemia On: 43 Request DNA ANTIBODY-NATV/DBL ST (08118)Indication: Heart disease, unspecified On: 57-Mpp-830666:02 Request METABOLIC PANEL, COMPREHENSIVE (93206)Indication: Essential hypertension On: : Request LIPID PANEL (63771)Indication: Other hyperlipidemia On: :31 Request Hemoglobin Glyclated (HGB A1C) (50165)Indication: Abnormal glucose tolerance test On: :31 Request PSA (PROSTATE SPECIFIC ANTIGEN) (V76.44)Indication: Benign prostatic hyperplasia with lower urinary tract symptoms, unspecified morphology On: 45-Nza-651498:52 Request MICROALBUMIN: CREATININE RATIO (64529) AND (79954)Indication: Abnormal glucose tolerance test On: :50 Request Hemoglobin Glyclated (HGB A1C) (49673)Indication: Abnormal glucose tolerance test On: :50 Request URINE WARREN CULTURE (MASSIEL COL COUNT) (82232)Indication: Muscle weakness On: :48 Request URINALYSIS, W/ MICRO (46160)Indication: Muscle weakness On: :48 Request CBC with auto diff (05775)Indication: Muscle weakness On: :48 Request JOHN (ANTINUCLEAR ANTIBODY) (33009)Indication: Muscle weakness On: :48 Request SED RATE ERYTHROCYTE (74689)Indication: Muscle weakness On: :48 Request C-REACTIVE PROTEIN (23115)Indication: Muscle weakness On: :48 Request TSH (92809)Indication: Muscle weakness On: :48 Request LIPID PANEL (08263)Indication: Other hyperlipidemia On: :47 Request METABOLIC PANEL, COMPREHENSIVE (10466)Indication: Other hyperlipidemia On: 03-Upp-294356:46 Request URINE WARREN CULTURE-MASSIEL COL COUNT (25064)Indication: Other abnormal finding of urine On: 7-Cfy-478648:42 Request LIPID PANEL (20763)Indication: Other hyperlipidemia On: :44 Request CBC W/AUTO DIFF WBC (29555)Indication: Essential hypertension On: :44 Request METABOLIC PANEL, COMPREHENSIVE (08869)Indication: Essential hypertension On: :44 Request URINE WARREN CULTURE-MASSIEL COL COUNT (36122)Indication: Other abnormal finding of urine On: :00 Request Comments: ADD ON MICROALBUMIN: CREATININE RATIO (18282) AND (27231)Indication: Essential hypertension On: : Request URINALYSIS, W/ MICRO (96681)Indication: Essential hypertension On: : Request METABOLIC PANEL, COMPREHENSIVE (58448)Indication: Essential hypertension On: : Request LIPID PANEL (94365)Indication: Other hyperlipidemia On: : Request CBC WITH MANUAL DIFF (52207)Indication: Iron deficiency On: : Request URINE WARREN CULTURE (MASSIEL COL COUNT) (55424)Indication: Fatigue On: :46 Request MICROALBUMIN: CREATININE RATIO (25350) AND (93937)Indication: Abnormal glucose tolerance test On: :46 Request Hemoglobin Glyclated (HGB A1C) (85033)Indication: Abnormal glucose tolerance test On: :46 Request IRON BINDING CAPACITY (TIBC) (97258)Indication: Anemia, unspecified On: :42 Request FERRITIN (56978)Indication: Anemia, unspecified On: :42 Request IRON (07979)Indication: Anemia, unspecified On: :42 Request VITAMIN B-12 (CYANOCOBALAMIN) (59778)Indication: Fatigue On: :42 Request CBC (AUTO) (37283)Indication: Fatigue On: :42 Request TSH (27291)Indication: Fatigue On: :42 Request Vitamin D Hydroxy (52423)Indication: Fatigue On: :42 Request EBV Panel (88845)Indication: Fatigue On: :42 Request FERRITIN (39413)Indication: Anemia, unspecified On: Request IRON (44343)Indication: Anemia, unspecified On: Request MICROALBUMIN: CREATININE RATIO (95014) AND (65076)Indication: Abnormal glucose tolerance test On: Request METABOLIC PANEL, COMPREHENSIVE (30564)Indication: Abnormal glucose tolerance test On: Request LIPID PANEL (11873)Indication: Other hyperlipidemia On: Request CBC WITH MANUAL DIFF (52554)Indication: Anemia, unspecified On: Request FERRITIN (85706)Indication: Anemia, unspecified On: :15 Request IRON (59665)Indication: Anemia, unspecified On: : Request LIPID PANEL (06138)Indication: Essential hypertension On: Request METABOLIC PANEL, COMPREHENSIVE (70503)Indication: Essential hypertension On: : Request CBC WITH MANUAL DIFF (18384)Indication: Essential hypertension On: :14 Request UPEP (98064)Indication: BRONCHITIS, NOT SPECIFIED ACUTE OR CHRONIC (490.) On: Request Protein Electrophoresis, Serum (SPEP) (45802)Indication: BRONCHITIS, NOT SPECIFIED ACUTE OR CHRONIC (490.) On: Request IGA/IGD/IGG/IGM-EACH (35810)Indication: BRONCHITIS, NOT SPECIFIED ACUTE OR CHRONIC (490.) On: Request URINALYSIS, W/ MICRO (40635)Indication: Anemia, unspecified On: Request CBC WITH MANUAL DIFF (71714)Indication: Anemia, unspecified On: Request FOLIC ACID SERUM (89977)Indication: Anemia, unspecified On: Request VITAMIN B-12 (CYANOCOBALAMIN) (82757)Indication: Anemia, unspecified On: Request RETICULOCYTE COUNT MANUL (23987)Indication: Anemia, unspecified On: : Request LDH (LD) (LACTATE DEHYDROGENASE) (19062)Indication: Anemia, unspecified On: Request IRON BINDING CAPACITY (TIBC) (84299)Indication: Anemia, unspecified On: : Request IRON (54646)Indication: Anemia, unspecified On: Request FERRITIN (88867)Indication: Anemia, unspecified On: Request PSA (PROSTATE SPECIFIC ANTIGEN) (V76.44)Indication: Screening for prostate cancer On: :36 Request LIPID PANEL (40179)Indication: Abnormal glucose tolerance test On: :35 Request CBC WITH MANUAL DIFF (61565)Indication: Hypertension, benign On: Request METABOLIC PANEL, COMPREHENSIVE (91617)Indication: Hypertension, benign On: 35 Request SED RATE ERYTHROCYTE (25820)Indication: Rash On: :22 Request C-REACTIVE PROTEIN (30613)Indication: Rash On: :22 Request RHEUMATOID FACTOR-QUANT (89874)Indication: Rash On: : Request JOHN (ANTINUCLEAR ANTIBODY) (44124)Indication: Rash On: :22 Request CULTURE, SPUTUM (50226)Indication: Cough On: 65-Gzp-995420:20 Request HgA1C , Office (20987)Indication: Abnormal glucose tolerance test On: 15-Dcr-280055:57 Request CULTURE, SPUTUM (52072)Indication: Cough On: 27-Qna-311913:39 Request ACID FAST STAIN (AFB) (41889)Indication: Cough On: 61-Fyb-777329:38 Request TSH (17187)Indication: Other hyperlipidemia On: :21 Request URINALYSIS, W/ MICRO (03111)Indication: Essential hypertension On: :21 Request CBC WITH MANUAL DIFF (87153)Indication: Abnormal glucose tolerance test On: : Request METABOLIC PANEL, COMPREHENSIVE (45938)Indication: Abnormal glucose tolerance test On: :21 Request MICROALBUMIN: CREATININE RATIO (36926) AND (64840)Indication: Abnormal glucose tolerance test On: 36-Bmo-606493:21 Request LIPID PANEL (66629)Indication: Other hyperlipidemia On: 44-Wnm-517761:20 Request CBC WITH MANUAL DIFF (29839)Indication: Abnormal glucose tolerance test On: :26 Request METABOLIC PANEL, COMPREHENSIVE (97369)Indication: Abnormal glucose tolerance test On: 39-Hqq-321219:26 Request CULTURE, SPUTUM (12195)Indication: Cough On: 02-Qfk-187785:18 Request LIPID PANEL (79057)Indication: Other hyperlipidemia On: 47-Btc-383014:14 Request TSH (96317)Indication: Swelling of limb On: 16-Yly-85030:58 Request METABOLIC PANEL, COMPREHENSIVE (92284)Indication: Swelling of limb On: 93-Csd-20954:58 Request CBC WITH MANUAL DIFF (61066)Indication: Swelling of limb On: :58 Request BNTP (75239)Indication: Swelling of limb On: 26-Hzz-76413:58 Request CULTURE, SPUTUM (98360)Indication: Cough On: 16-Isc-15827:56 Request PSA (PROSTATE SPECIFIC ANTIGEN) (V76.44)Indication: Screening for prostate cancer On: 57-Ymq-386596:19 Request URINALYSIS, W/ MICRO (47273)Indication: Abnormal glucose tolerance test On: 05-Xbz-277619:18 Request MICROALBUMIN: CREATININE RATIO (87930) AND (53415)Indication: Abnormal glucose tolerance test On: 41-Qxa-234412:18 Request METABOLIC PANEL, COMPREHENSIVE (28416)Indication: Essential hypertension On: 39-Nwi-470413:18 Request LIPID PANEL (53448)Indication: Other hyperlipidemia On: 05-Gkw-256336:18 Request PSA (PROSTATE SPECIFIC ANTIGEN) (V76.44)Indication: Screening for prostate cancer On: 86-Wyl-472870:40 Request MICROALBUMIN: CREATININE RATIO (50276) AND (61959)Indication: Abnormal glucose tolerance test On: 37-Sqf-081959:40 Request METABOLIC PANEL, COMPREHENSIVE (10414)Indication: Abnormal glucose tolerance test On: 93-Xjy-615440:40 Request Urine Protein Electrophoresis (UPEP) (09231)Indication: recurrent uri On: :39 Request Serum Protein Electrophoresis (SPEP) (09883)Indication: recurrent uri On: 88-Njb-026856:39 Request IMMUNOGLOBULIN E (IgE) (59001)Indication: Asthma, intrinsic, with status asthmaticus On: 89-Fux-118226:39 Request IGA/IGD/IGG/IGM-EACH (39354)Indication: Asthma, intrinsic, with status asthmaticus On: 61-Omy-900167:39 Request LIPID PANEL (41508)Indication: Other hyperlipidemia On: 86-Kee-670416:38 Request ASPERGILLUS AG, EIA (42038)Indication: Cough On: :58 Request SED RATE ERYTHROCYTE (87054)Indication: Cough On: 45-Pwq-715998:48 Request C-REACTIVE PROTEIN (60133)Indication: Cough On: :48 Request CBC WITH MANUAL DIFF (02503)Indication: Cough On: 55-Tbj-573113:47 Request Quantiferron gold test (68802)Indication: Cough On: 97-Cuv-635957:45 Request CULTURE, SPUTUM (88945)Indication: Cough On: 45-Ufd-693199:45 Request VITAMIN B-12 (CYANOCOBALAMIN) (92280)Indication: Fatigue On: :20 Request Vitamin D Hydroxy (69138)Indication: Fatigue On: 02-Joc-493746:20 Request CBC WITH MANUAL DIFF (79255)Indication: Abnormal glucose tolerance test On: :19 Request METABOLIC PANEL, COMPREHENSIVE (91798)Indication: Abnormal glucose tolerance test On: :19 Request LIPID PANEL (69819)Indication: Other hyperlipidemia On: 01-Kwd-516822:19 Request URINALYSIS, W/ MICRO (67147)Indication: Abnormal glucose tolerance test On: :19 Request HEMOGLOBIN GLYCLATED (HGB A1C) (53006)Indication: Abnormal glucose tolerance test On: 08-Dbe-478755:19 Request WARREN CULTURE-OTHER (09146)Indication: Pharyngitis, acute On: 90-Wjb-983032:05 Request URINE WARREN CULTURE-MASSIEL COL COUNT (50525)Indication: Abdominal pain, acute, right lower quadrant On: :19 Request CBC WITH MANUAL DIFF (52749)Indication: Abnormal glucose tolerance test On: :08 Request METABOLIC PANEL, COMPREHENSIVE (84993)Indication: Abnormal glucose tolerance test On: 71-Eop-963802:08 Request TSH (82247)Indication: Fatigue On: 79-Suu-233160:02 Request CBC WITH MANUAL DIFF (58180)Indication: Abnormal glucose tolerance test On: :45 Request METABOLIC PANEL, COMPREHENSIVE (21873)Indication: Hypertension, benign On: 11-Qra-610195:45 Request LIPID PANEL (47019)Indication: Other hyperlipidemia On: :45 Request METABOLIC PANEL, COMPREHENSIVE (09535)Indication: Essential hypertension On: :16 Request LIPID PANEL (20401)Indication: Other hyperlipidemia On: 51-Lpn-247105:15 Request URINE WARREN CULTURE-MASSIEL COL COUNT (18448)Indication: Calcium kidney stone On: 95-Qly-194870:54 Request PSA (PROSTATE SPECIFIC ANTIGEN) (V76.44)Indication: Enlarged prostate with lower urinary tract symptoms On: 74-Gsr-670593:09 Request METABOLIC PANEL, COMPREHENSIVE (36723)Indication: Abnormal glucose tolerance test On: 13-Uqj-903906:09 Request CBC WITH MANUAL DIFF (61729)Indication: Abnormal glucose tolerance test On: 04-Joj-557770:09 Request LIPID PANEL (83546)Indication: Other hyperlipidemia On: 22-Jqb-984094:09 Request MICROALBUMIN: CREATININE RATIO (04710) AND (86282)Indication: Abnormal glucose tolerance test On: 29-Ess-486560:09 Request LIPID PANEL (81672)Indication: Other hyperlipidemia On: :31 Request CBC WITH MANUAL DIFF (28576)Indication: Abnormal glucose tolerance test On: :31 Request METABOLIC PANEL, COMPREHENSIVE (37437)Indication: Abnormal glucose tolerance test On: :30 Request MICROALBUMIN: CREATININE RATIO (77611) AND (02517)Indication: Abnormal glucose tolerance test On: 30-Ess-580179:28 Request METABOLIC PANEL, COMPREHENSIVE (01987)Indication: Abnormal glucose tolerance test On: :07 Request LIPID PANEL (93841)Indication: Other hyperlipidemia On: 2-Sgs-914367:07 Request PSA (PROSTATE SPECIFIC ANTIGEN) (V76.44)Indication: Enlarged prostate with lower urinary tract symptoms On: :49 Request METABOLIC PANEL, COMPREHENSIVE (88716)Indication: Essential hypertension On: 0-Cbt-287188:48 Request LIPID PANEL (56166)Indication: Other hyperlipidemia On: :48 Request HEPATIC FUNCTION PANEL (55420)Indication: Other hyperlipidemia On: :21 Request LIPID PANEL (22892)Indication: Other hyperlipidemia On: :21 Request CBC WITH MANUAL DIFF (58267)Indication: Abnormal glucose tolerance test On: :53 Request METABOLIC PANEL, COMPREHENSIVE ([id number])Indication: Abnormal glucose tolerance test On: :53 Request MICROALBUMIN: CREATININE RATIO ([id number]) AND ([id number])Indication: Abnormal glucose tolerance test On: 7-Xcz-624469:53 Request HEPATIC FUNCTION PANEL ([id number])Indication: Other hyperlipidemia On: :53 Request LIPID PANEL ([id number])Indication: Other hyperlipidemia On: 4-Lsh-499430:53 Request GLUCOSE TOLERANCE TEST (GTT) 2 hour On: 8-Zof-393739:36 Request ([id number]) TSH ([id number])Indication: Dizziness and giddiness On: 43-Ncq-967238:15 Request LIPID PANEL ([id number])Indication: Other hyperlipidemia On: 76-Iep-447011:15 Request CBC WITH MANUAL DIFF ([id number])Indication: Dizziness and giddiness On: 17-Mcj-231128:15 Request METABOLIC PANEL, COMPREHENSIVE ([id number])Indication: Dizziness and giddiness On: 03-Wti-802141:15 Request HEPATIC FUNCTION PANEL ([id number])Indication: Other hyperlipidemia On: 87-Yro-548561:39 Request LIPID PANEL ([id number])Indication: Other hyperlipidemia On: 10-Huj-806534:39 Request HEPATIC FUNCTION PANEL ([id number])Indication: Other hyperlipidemia On: 33-Qcb-531895:31 Request LIPID PANEL ([id number])Indication: Other hyperlipidemia On: 28-Ubg-204925:31 Request WARREN CULTURE-BLOOD ([id number])Indication: fever On: 0-Qyn-957955:58 Request METABOLIC PANEL, COMPREHENSIVE ([id number])Indication: fever On: 1-Qvr-904378:58 Request CBC WITH MANUAL DIFF ([id number])Indication: fever On: 0-Had-341664:58 Request WARREN CULTURE-OTHER ([id number])Indication: Pharyngitis, acute On: 54-Zbu-851973:35 Request PSA (Prostate Specific Antigen), Screening ([id number])Indication: Other hyperlipidemia On: :32 Request LIPID PANEL ([id number])Indication: Other hyperlipidemia On: : Request URINALYSIS W/O MICRO ([id number])Indication: Hypertension, benign On: :31 Request TSH ([id number])Indication: Hypertension, benign On: : Request CBC WITH MANUAL DIFF ([id number])Indication: Hypertension, benign On: :31 Request METABOLIC PANEL, COMPREHENSIVE ([id number])Indication: Hypertension, benign On: :31 Request Creatine Kinase Total ([id number])Indication: Myalgia and myositis On: :24 Request SED RATE ERYTHROCYTE ([id number])Indication: Arthralgia On: :23 Request C-REACTIVE PROTEIN ([id number])Indication: Arthralgia On: :23 Request RHEUMATOID FACTOR-QUANT ([id number])Indication: Arthralgia On: :23 Request JOHN (ANTINUCLEAR ANTIBODY) ([id number])Indication: Arthralgia On: :23 Request Planned Encounters Medical; [facility] 3 Month FU - On: 21-Mar-2018 8:30 [facility] Fast DO, Adelaida A Fast DO, Adelaida A Planned Procedures PNEUM VAC ADLT/IMUMNOSPR, On: 06-Dec-2017 Intent SBC/INTRM ([id number])By: Flakito ACKERMAN, Comments: lot: [id number]: ite/route: Татьяна del/IMamt: 0.5mLVIS signed when applicableEVER Monroy Adelaida A Fast DO, Adelaida A Cartoid DopplerBy: Fast DO, Adelaida On: 06-Sep-2017 Intent A Fast DO, Adelaida A Radiology - Lumbar SpineBy: Fast On: 06-Jun-2017 Intent DO, Adelaida A Fast DO, Adelaida A ELECTROCARDIOGRAM, COMPLETE (ECG) On: 06-Jun-2017 Intent ([id number])By: Flakito ACKERMAN Adelaida A Flakito Comments: ekg [...] XRAY, PA & LATERAL On: 18-Jan-2017 Intent ([id number])By: Yola Witt Aerosol Treatment ([id number])By: On: 18-Jan-2017 Intent Yola Witt Solu -Medrol Injection, 125 mg On: 18-Jan-2017 Intent ([id number])By: Yola Witt Comments: solumedrol 125mg injectionlot: [id number]: 12/2018L GMpt tolerated wellAD EQUITY RESEARCH ASSOCIATE ELECTROCARDIOGRAM, COMPLETE (ECG) On: 05-Jan-2016 Intent ([id number])By: Adelaida Fraga DO Comments: ekg showed normal sinus rhythym, normal axis, no acute st/t wave changes irbb DO, Adelaida A Solu -Medrol Injection, 125 mg On: 09-May-2015 Intent ([id number])By: Samantha Grewal CNP Comments: lot: [id number]: ite/route:RGM/IMamt: 2mLVIS signed when applicableEVER Dumont Aerosol Treatment ([id number])By: On: 09-May-2015 Intent Slarb EQUITY RESEARCH ASSOCIATE, Tracey Radiology - Chest- PA and LatBy: [...] A Fast DO, Adelaida A Pulse Oximetry ([id number])By: Flakito On: 26-Aug-2014 Intent DO, Adelaida A Fast DO, Adelaida A Comments: 94%- recheck 95 Aerosol Treatment ([id number])By: On: 10-Apr-2014 Intent Tracey Young LPN Eprescribed prescriptions On: 25-Jul-2013 Intent ([id number])By: Fast DO, Adelaida A Fast DO, Adelaida A Pulse Oximetry ([id number])By: Flakito On: 02-Jul-2013 Intent DO, Adelaida A Fast DO, Adelaida A Comments: 97% Aerosol Treatment ([id number])By: On: 25-Jun-2013 Intent Samantha Grewal CNP Eprescribed prescriptions On: 25-Jun-2013 Intent ([id number])By: Samantha Grewal CNP Eprescribed prescriptions On: 02-Apr-2013 Intent ([id number])By: Leigh Ann Polk Aerosol Treatment ([id number])By: On: 26-Mar-2013 Intent Samantha Grewal CNP Eprescribed prescriptions On: 26-Mar-2013 Intent ([id number])By: Eliana Carter Eprescribed prescriptions On: 25-Dec-2012 Intent ([id number])By: Leigh Ann Polk Aerosol Treatment ([id number])By: On: 06-Nov-2012 Intent Samantha Grewal CNP Eprescribed prescriptions On: 06-Nov-2012 Intent ([id number])By: Eliana Carter Ear Irrigation ([id number])By: Carmina On: 25-Sep-2012 Intent Samantha IRVIN Comments: Ear Irrigation performed on:bilateralAmount/color removed cerumen:large amount of dark brown wax removedOUtcome:clear, pt toleratedUsed wax curettes Wax CurettesBy: Samantha Grewal CNP On: 25-Sep-2012 Intent Eprescribed prescriptions On: 22-Sep-2012 Intent ([id number])By: Peter DO, Elizabet Eprescribed prescriptions On: 02-Aug-2012 Intent ([id number])By: Leigh Ann Polk Pulse Oximetry ([id number])By: Flakito On: 30-Jun-2012 Intent DO, Adelaida A Fast DO, Adelaida A Comments: 97% Eprescribed prescriptions On: 12-Jun-2012 Intent ([id number])By: Fast DO, Adelaida A Fast DO, Adelaida A Spirometry ([id number])By: Felicitas, On: 17-Jan-2012 Intent Leigh Ann Comments: good effort and curve mild restriction CT - Sinuses CompleteBy: Fast DO, On: 17-Jan-2012 Intent Adelaida A Fast DO, Adelaida A PNEUM VAC ADLT/IMUMNOSPR, On: 17-Jan-2012 Intent SBC/INTRM ([id number])By: Boris, Comments: Lot:[id number]:04-25-Dose:0.5mLRoute:IMSite:L armGiven By:CHELA signed Julia IMMUNIZ ADMNIN, 1 VAC, SNGL/COMBO On: 17-Jan-2012 Intent ([id number])By: Julia Escalante CT - ChestBy: Fast DO, Adelaida A On: 17-Jan-2012 Intent Fast DO, Adelaida A Eprescribed prescriptions On: 17-Jan-2012 Intent ([id number])By: Leigh Ann Polk Eprescribed prescriptions On: 18-Oct-2011 Intent ([id number])By: Fast DO, Adelaida A Fast DO, Adelaida A EKG ([id number])By: Fast DO, Adelaida A On: 15-Oct-2011 Intent Fast DO, Adelaida A Comments: ekg- sinus with normal axis and nsivcd and no acute changes Eprescribed prescriptions On: 09-Aug-2011 Intent ([id number])By: Fast DO, Adelaida A Fast DO, Adelaida A PFT - CompleteBy: Fast DO, Adelaida On: 08-Mar-2011 Intent A Fast DO, Adelaida A Pulse Oximetry ([id number])By: Carmina On: 02-Feb-2011 Intent Samantha IRVIN Aerosol Treatment ([id number])By: On: 02-Feb-2011 Intent Samantha Grewal CNP Radiology - Chest- PA and LatBy: On: 18-Jan-2011 Intent Fast DO, Adelaida A Fast DO, Adelaida A Pulse Oximetry ([id number])By: On: 18-Jan-2011 Intent Leigh Ann Polk Comments: 93% TDAP VACCINE >7 IM ([id number])By: On: 07-Dec-2010 Intent Leigh Ann Polk Comments: Lot #:[id number] date:mount given:0.5mlRoute: IMSite given:left deltGiven by: DANIEL Zavaleta Eprescribed prescriptions On: 07-Dec-2010 Intent (G8553)By: Fast DO, Adelaida A Fast DO, Adelaida A FLU VAC, SPLIT, >3 YEARS, On: 07-Dec-2010 Intent INTRAMUSC ([id number])By: Felicitas, Comments: received at work Leigh Ann Toradol Injection, 30 mg On: 05-Nov-2010 Intent ([id number])By: Elizabet Green DO Comments: Lot:[id number]:apr 05Amt:30mg/mlRoute:IMSite:left hip Given By: ILDA Tran Ear Irrigation ([id number])By: Peter On: 05-Nov-2010 Intent Elizabet ACKERMAN Comments: Left ear irrigated, large amt of wax removed. pt tolerated well. Eprescribed prescriptions On: 05-Nov-2010 Intent (G8553)By: Elizabet Green DO Wax CurettesBy: Peter ACKERMAN, On: 05-Nov-2010 Intent Elizabet SPECIMEN HNDLNG/TRNSPRT, OFFC > On: 05-Nov-2010 Intent LAB ([id number])By: Elizabet Green DO Nuclear Medicine - HIDA [...] call wet read DO, Adelaida A Spirometry ([id number])By: Flakito ACKERMAN On: 14-Sep-2010 Intent Adelaida A Fast DO, Adelaida A Comments: good effort and curve- mild restriction Eprescribed prescriptions On: 14-Sep-2010 Intent (G8553)By: Flakito DO, Adelaida A Fast DO, Adelaida A Pulse Oximetry ([id number])By: Flakito On: 14-Sep-2010 Intent DO, Adelaida A Fast DO, Adelaida A Comments: 94-95 Radiology - Chest- PA and LatBy: On: 14-Sep-2010 Intent Fast DO, Adelaida A Fast DO, Adelaida A Pulse Oximetry ([id number])By: Ciesa On: 23-Feb-2010 Intent CHEF GERMAN, Anamaria Aerosol Treatment ([id number])By: On: 23-Feb-2010 Intent Ciesa CHEF GERMAN, Anamaria Pulse Oximetry ([id number])By: Ciesa On: 26-Jan-2010 Intent CHEF GERMAN, Anamaria Aerosol Treatment ([id number])By: On: 26-Jan-2010 Intent Ciesa CHEF GERMAN, Anamaria Spirometry ([id number])By: Felicitas, On: 29-Apr-2008 Intent Leigh Ann Comments: good effort and curve normal EKG ([id number])By: Fast DO, Adelaida A On: 20-Apr-2007 Intent [...] ACKERMAN Adelaida A Flakito Comments: Lot #: [id number] date: 10/30Amount given: 2 gramsRoute: IMSite given: Right hip and left hipGiven by: Calin Townsend LPN DO, Adelaida A Spirometry ([id number])By: Flakito ACKERMAN, On: 27-Mar-2007 Intent Adelaida A Fast DO, Adelaida A Comments: good effort and curve normal EBV SEROLOGIC TESTBy: Mary Ann Salcido On: 17-Feb-2007 Intent RUDY-GUZMAN VCA ANTIBODY On: 16-Feb-2007 Intent MEASUREMENTBy: Mast RN, Negrita SPECIMEN HNDLNG/TRNSPRT, OFFC > On: 06-Feb-2007 Intent LAB ([id number])By: Fast DO, Adelaida A Fast DO, Adelaida A Ultrasound - TesticularBy: Fast On: 13-Oct-2006 Intent DO, Adelaida A Fast DO, Adelaida A Inhaler Demo ([id number])By: Fast DO, On: 26-Sep-2006 Intent Adelaida A Fast DO, Adelaida A Radiology - Hip - LeftBy: Fast On: 26-Sep-2006 Intent DO, Adelaida A Fast DO, Adelaida A Radiology - Hip - RightBy: Fast On: 26-Sep-2006 Intent DO, Adelaida A Fast DO, Adelaida A Bio Z ([id number])By: Fast DO, Adelaida A On: 25-Jul-2006 Intent Fast DO, Adelaida A Comments: normal paremters Six Minute Walk Assessment On: 25-Jul-2006 Intent ([id number])By: Fast DO, Adelaida A Fast DO, Adelaida A Radiology - Chest- PA and LatBy: On: 25-Jul-2006 Intent Fast DO, Adelaida A Fast DO, Adelaida A Spirometry ([id number])By: Fast DO, On: 25-Jul-2006 Intent Adelaida A Fast DO, Adelaida A Comments: good effort and curve- normal EDISON (Ankle Brachial Index) On: 20-Jul-2006 Intent ([id number])By: Leigh Ann Polk Comments: done EDISON (Ankle Brachial Index) On: 17-May-2006 Intent ([id number])By: Fast DO, Adelaida A Fast DO, Adelaida [...] Indication: Neoplasm of uncertain behavior of skin [facility] Wellness Physical : Patient Instructions Indication: [facility] : How to access health information online Indication: [facility] Well[facility] Well[facility] Physical : How to access health information online - Detail Ind[facility] Physical Other hyperlipidemia [...] Advance Directives Name Dates Details Immunization Registry Holiday - Effective on Effective: 31-Jan-201701/31/2017. Expiration date [...] he is going to go [facility]- and try to start exercising-, [ADDITIONAL [...] days ago- Dr. Fraga called pt in [facility]. 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 [employer]- [...] congestion and ears hurt- [facility]: Cough (786.2), SHORTNESS OF BREATH [...] for Follow up ER: Pt went to [facility] and then went to [facility] to have the doppler done.- got [...] 2 days with bad UTI.- was at [facility] and getting cystoscopy done and was found to be retaining urine- - by the next night he was sick with no appetitie and just felt bad went to bed - woke up next day- and felt bad- and went to [facility]- and had uti- was there [...] up hospital : Pt was transfered to [facility] for heart cath and discharged sat [...] saw a Dr Barker a psychiatrist in [place]- he thought mostly anxiety so left him [...] gerd- so he is going back to [employer]- mood good with celexa-less tense, [ADDITIONAL REASON] [...]
--- OUTSIDE RECORDS SUMMARY | 2018-05-15 01:08 | XMS RPT_ITS | Continuity of Care Document ---
:1950 Author Organization [facility] Address [address] [place] [address] Phone Care Team Providers Name Role Phone Adelaida Fraga DO Unavailable Remigio Lares MD Unavailable Tawanda Alonso Unavailable [facility] Unavailable Eliana Carter Unavailable [...] colonsoocpy 09/05- polyps - repeat 5 years [facility] Status: Active Coronary artery disease (I25.10, [...] Solution daily for 90 days Quantity: 3 {[place]} Refills: 5 Ordered:31-Oct-2017 Adelaida ACKERMAN DO Adelaida [...] A Start : 02-Nov-2017 Active Comments:sixtyDX: M54.16, M51.56563,411,000 - OD risk 100 Lunesta 3 MG [...] 20-Mar-2013 Inactive Comments:alternate with 20mg(per hans at [facility] - was not fillable if more than 1qd and would require pa at [phone] or [phone] - sent in this way to see [...] (Oral Capsule) 1 (one) Capsule Capsule bid v7uznir for 21 days Quantity: 42 {Capsule} Refills: [...] : 02-Sep-2010 End : 05-Nov-2010 Inactive NYSTATIN, 970950HFFV/ML (Mouth/Throat Suspension) 10 cc tid for 0 [...] : 22-Jun-2013 End : 03-Sep-2013 Inactive ZOSTAVAX, 64223UCI/0.65ML (Subcutaneous Solution Reconstituted) 1 For Solution sc [...] Quantity: 3 {Inhaler} Refills: 3 Ordered:10-Apr-2014 Slarb WINDOW DISPLAY DESIGNER, Tracey Start : 22-Jun-2013 End : 10-Apr-2014 Discontinued ATENOLOL, 50MG (Oral Tablet) 1 tab Tablet qd for 30 days Quantity: 30 {Tablet} Refills: 0 Ordered:10-Apr-2014 Slarb WINDOW DISPLAY DESIGNER, Tracey Start : 12-Jun-2012 End : 10-Apr-2014 [...] Quantity: 60 {Capsule} Refills: 3 Ordered:10-Apr-2014 Slarb WINDOW DISPLAY DESIGNER, Tracey Start : 29-Oct-2013 End : 10-Apr-2014 Discontinued Dymista 137-50 MCG/ACT Nasal Suspension 1 spray each nostril qd for 0 days Quantity: 2 {[place]} Refills: 0 Ordered:11-Jun-2016 Leigh Ann Polk Start [...] Start : 05-Jan-2016 End : 06-Apr-2016 Discontinued [id number] df viewed and approved- gave scripts to [...] Quantity: 6 {Package} Refills: 0 Ordered:10-Apr-2014 Slarb WINDOW DISPLAY DESIGNER, Tracey Start : 06-Feb-2014 End : 10-Apr-2014 [...] x3 one on scalp two on right restoration Status: Inactive as of 06-Jun-2017 Acute sinusitis, [...] W/WO Contrast Result: Comments: See Note; NOTES: [facility] Imaging Services [address] [place] [address] Brain W/WO Contrast MR#: [id number] Acct: [id number] Name: YUMIKO LANDRUM Rep #: [id number] : 1950 M 67 From: Rodney Sarah MD PCP: Adelaida Fraga DO Status: REG CLI Study: Brain W/WO Contrast Date of Exam: 09/26/17 Exam# [id number] Ordering Dr: Perico Crowe MD STUDY: MRI [...] CC: Perico Crowe MD; Adelaida Fraga DO Silvering Applicator: Signed 17-Sep-2017 Carotid Duplex Ultrasound Result: Comments: See Note; NOTES: [facility] Cardiovascular Services [address] [place] [address] Carotid Duplex Ultrasound 09/16/17 1012 MR#: [id number] Acct: [id number] Name: YUMIKO MCCOLLUM Rep #: [id number] : 1950 66 From: Jung Garcia MD [...] the left vertebral artery. Procedure Carotid Duplex 71113. The study was technically difficult. Exam performed [...] Date Dictated: 1012 Date Transcribed: 09/17/17 151 Silvering Applicator: Signed 17-Aug-2017 History and Physical Exam Result: Comments: See Note; NOTES: [facility] Medical Records Department [address] [place] [address] History and Physical 08/17/17913 MR#: [id number] Acct: [id number] Name: LYNO ZANIDUSTY E Rep #: [id number] : 1950 66 From: Remigio Lares MD PCP: Adelaida Fraga DO Status[place] [facility] [place] [facility] Problem List (1) Abnormal stress test Status: Acute (2) Atherosclerotic heart d isease of hamilton coronary artery without angina pectoris Status: Chronic Qualifiers: [place] vs. transplanted heart: hamilton heart Qualified Code(s): I25.10 - Atherosclerotic heart disease of hamilton coron elise artery without angina pectoris Comment: [...] please see previously dictated out the patient SANTO DOMINGO from 07/14/2017. Review of systems: Upon review [...] this approach. This note was generated with [employer] dictation software. It may contain incorrect words, spelling, and punctuation that were not noted in checking the note bef ore signing. 08/17/17 0925 <Electronically signed by Remigio Lares MD> Date Remigio Lares MD Cosigner Signature: Date (if applicable) CC: Adelaida Fraga DO; Remigio Lares MD Signed 11-Aug-2017 Chest PA and Lateral Result: Comments: See Note; NOTES: [facility] Imaging Services [address] [place] [address] Chest PA and Lateral MR#: [id number] Acct: [id number] Name: YUMIKO LANDRUM Rep #: [id number] : 1950 M 66 From: Will Guerrero MD PCP: Adelaida Fraga DO Status: REG CLI Study: Chest PA and Lateral Date of Exam: 08/11/17 Exam# [id number] Ordering Dr: Remigio Lares MD STUDY: X-RAY [...] CC: Adelaida Fraga DO; Remigio Lares MD Silvering Applicator: Signed 02-Aug-2017 Stress Report Result: Comments: See Note; NOTES: [facility] Cardiovascular Services [address] [place] [address] MR#: [id number] Acct: [id number] Name: YUMIKO LANDRUM Rep #: [id number] : [birth year] 66 From: Remigio Lares MD [...] 72 %. This note was generated with [employer] software. It may contain incorrect words, spelling, and punctuation that were not noted in checking the note before signing. 08/02/17 3455 <Electronically signed by Remigio Lares MD> Date Remigio Laers MD CC: Adelaida Fraga DO; Remigio Lares MD Date Dictate d: 08/02/171638 Date Transcribed: 08/02/171638 Silvering Applicator: PM Signed 14-Jul-2017 Cardiology Visit Report Result: Comments: See Note; NOTES: [facility] [address] [place] [address] OFFICE VISIT Date of Service: 07/14/17 MR#: [id number] Acct: [id number] Name: YUMIKO LANDRUM Rep #: [id number] : 1950 Provider: Remigio Lares MD Age/Sex: 66/M [place] [facility] Status: Signed HPI HPI Details: YUMIKO LANDRUM, is a 66 M who presents to the office today for outpatient card iovascular consultation for history of underlying CAD status post LAD PCI. He has been cared for in the past both by the [facility] members (Drs. Griggs and Edwin), at [facility] by Dr. Rosales, and at [facility] by Dr. Maury Veliz. He states he lost saw Dr. Veliz approximately 1 year ago. He is now relocating his care locally. He has a history of underlying CAD. He underwent a previous diagnostic car diac catheterization on 08/11/2005 at [facility]. At that point in time he [...] no significant stenosis. In April 2008, at [facility], he had a repeat diagnostic cardiac [...] luminal irregularities. He apparently was transferred to [facility] for further evaluation and care. The [...] an LYNDSEY inhibitor. He believes his former inflatable buildings laminator remove these medications from ak s medication [...] cap 07/14/17 [History Confirmed 07/14/17] [facility] Medical History Presence of sten t in coronary artery (Chronic 08/11/05) Hyperlipidemia (Chronic) Hypertension (Chronic) Prinzmetal angina (Acute) Atherosclerotic heart disease of hamilton coronary artery without angina pectoris (Chroni c) [...] affect Assessment AND Plan 1. Atherosclerosis of hamilton coronary artery of hamilton heart without angina pectoris I25.10 PTCA/RINA to [...] Code Off vis,new,level 4 Diagnoses Atherosclerosis of hamilton coronary artery of hamilton heart without angina pectoris I25.10 [place] vs. transplanted heart: n ative heart Presence of stent in coronary artery Z95.5 Hyperlipidemia, unspecified hyperlipidemia type E78.5 Hyperlipidemia type: unspecified Essential hypertension I10 Hypertension type: essential hype rtension COPD (chronic obstructive pulmonary disease) J44.9 Coding Level of Care Code Off vis,new,level 4 Diagnoses Atherosclerosis of hamilton coronary artery of hamilton heart without angina pectoris I 25.10 [place] vs. transplanted heart: hamilton heart Presence of stent in coronary artery Z95.5 Hyperlipidemia, unspecified hyperlipidemia type E78.5 Hyperlipidemia type: unspecified Essential hypertension I10 Hypertension type: essential hypertension COPD (chronic obstructive pulmonary disease) J44.9 07/14/17 1558 <Electronically signed by Remigio Lares MD> Date Remigio Lares MD Cosigner Signature: Date (if applicable) CC: Adelaida Fraga DO 14-Jul-2017 12 Lead EKG performed by [facility] Result: Comments: See Note; NOTES: [facility] [address] [place] [address] 12 Lead EKG performed by [facility] 07/14/176 MR#: [id number] Acct: [id number] Name: YUMIKO LANDRUM Rep #: [id number] : 1950 66 From: Remigio Lares MD Attending Dr: Remigio Lares MD Status: DEP AMB Ordering Dr: Remigio Lares MD Date: 07/14/17 Location: [facility] Sex: M C Admitted: [facility] Lead EKG performed by [facility] ECG Report Interpretation Sinus Rhythm Right bundle branch block. ABNORMAL Electronically signed on 07/14/2017 at 17:15 by Remigio Lares 07/14/17 1717 Date Remigio Lares MD CC: Adelaida Fraga DO Date Dictated: 07/14/171435 Date Transcribed: 07/14/171435 Silvering Applicator: PM Signed 04-Jul-2017 TXT - Blood Flow Screening Result: Comments: See Note; NOTES: [facility] Cardiovascular Services [address] [place] [address] 07/04/17 0840 MR#: [id number] Acct: [id number] Name: YUMIKO LANDRUM Rep #: [id number] : 1950 66 From: Jung Garcia MD Attending Dr: Adelaida Fraga DO Status: REG REF Ordering Dr: Date: 07/04/17 Location: [facility] Sex: M C Admitted: [...] or greater). Ordering Physician: [facility] Physician: Adelaida Fraga Performed By: Kayla Kelley, RDCS, RVT 07/04/172221 Date Tyrese Garcia MD CC: Adelaida Fraga DO Date Dictated: 07/04/17 0840 Date Transcribed: 07/04/172221 Silvering Applicator: Signed 06-Jun-2017 L/S Spine Min 4 Views Result: Comments: See Note; NOTES: [facility] Imaging Services [address] [place] [address] L/S Spine Min 4 Views MR#: [id number] Acct: [id number] Name: YUMIKO LANDRUM Rep #: [id number] : 1950 M 66 From: Rafael Manley DO PCP: Adelaida Fraga DO Status: REG CLI Study: L/S Spine Min 4 Views Date of Exam: 06/06/17 Exam# [id number] Ordering Dr: Adelaida Fraga DO STUDY: X-RAY [...] Rafael Manley DO at 18:01 EDT Tel [phone], Service support , CC: Adelaida Fraga DO Silvering Applicator: Signed 18-Feb-2017 Ankle min 3 Views Result: Comments: See Note; NOTES: [facility] Imaging Services [address] [place] [address] Ankle min 3 Views MR#: [id number] Acct: [id number] Name: YUMIKO LANDRUM Rep #: [id number] OB: 1950 M 66 From: Trevon Carrillo MD PCP: Adelaida Fraga DO Status: REG CLI Study: Ankle min 3 Views Date of Exam: 02/18/17 Exam# [id number] Ordering Dr: Adelaida Fraga DO STUDY: X-RAY [...] Service support , CC: Adelaida Fraga DO Silvering Applicator: Signed 18-Feb-2017 Chest without Contrast Result: Comments: See Note; NOTES: [facility] Imaging Services [address] [place] [address] Chest without Contrast MR#: [id number] Acct: [id number] Name: YUMIKO LANDRUM Rep #: [id number] : 1950 M 66 From: Kaitlin Campoverde PCP: Adelaida Fraga DO Status: REG CLI Study: Chest without Contrast Date of Exam: 02/18/17 Exam# [id number] Ordering Dr: Adelaida Fraga DO STUDY: CT [...] Service support , CC: Adelaida Fraga DO Silvering Applicator: Signed 10-Feb-2017 Chest PA and Lateral Result: Comments: See Note; NOTES: [facility] Imaging Services [address] [place] [address] Chest PA and Lateral MR#: [id number] Acct: [id number] Name: YUMIKO LANDRUM Rep #: [id number] : 1950 M 66 From: Chava Fu MD PCP: Adelaida Fraga DO Status: REG CLI Study: Chest PA and Lateral Date of Exam: 02/10/17 Exam# [id number] Ordering Dr: Yola Witt STUDY: X-RAY CHEST [...] , CC: COCO Witt; Adelaida Fraga DO Silvering Applicator: Signed 18-Jan-2017 Chest PA and Lateral Result: Comments: See Note; NOTES: [facility] Imaging Services [address] [place] [address] Chest PA and Lateral MR#: [id number] Acct: [id number] Name: YUMIKO LANDRUM Rep #: [id number] : 1950 M 66 From: Erwin Jiménez MD PCP: Adelaida Fraga DO Status: REG CLI Study: Chest PA and Lateral Date of Exam: 01/18/17 Exam# [id number] Ordering Dr: Yola Witt STUDY: X-RAY CHES [...] EST Tel , Service support , CC: BILLET SHEARERMayra Witt; Adelaida Fraga DO Silvering Applicator: Signed 11-Apr-2015 Chest PA and Lateral Result: Comments: See Note; NOTES: [facility] Imaging Services [address] [place] [address] Verdana 4d Chest PA and Lateral MR#: [id number] Acct: [id number] Name: YUMIKO LANDRUM Rep #: [id number] : 1950 64 From: Stephen Barba MD PCP: Adelaida Fraga DO Status: REG CLI Study: Chest PA and Lateral Date of Exam: 04/11/15 Exam# [id number] Ordering Dr: Adelaida Fraga DO STUDY: X-RAY [...] FACR at 20:20 EST , Service support [phone], RAD/Chest PA and Lateral IMPRESSION: Normal x-ray examination of the chest. No lingular infiltrate is noted on today's examination Electronically Signed: Stephen Barba MD, FACR at 20:20 EST , Service support [phone], CC: Adelaida Fraga DO Silvering Applicator: Signed 11-Apr-2015 Hip min 2 Views Result: Comments: See Note; NOTES: [facility] Imaging Services [address] [place] [address] Verdana 4d Hip min 2 Views MR#: [id number] Acct: [id number] Name: DOMINICKNATHAN QUIÑONEZHERNANDO Taylor Rep #: [id number] : 1950 64 From: Stephen Barba MD PCP: Adelaida Fraga DO Status: REG CLI Study: Hip min 2 Views Date of Exam: 04/11/15 Exam# [id number] Ordering Dr: Adelaida Fraga DO UDY: X-RAY [...] FACR at 20:19 EST , Service support [phone], RAD/Hip min 2 Views IMPRESSION: Normal x-ray examination of the pelvis and hip. Electronically Signed: Stephen Barba MD, FACR 201 07/23/18 at 20:19 EST , Service support [phone], CC: Adelaida Fraga DO Silvering Applicator: Signed 11-Apr-2015 L/S Spine Min 4 Views Result: Comments: See Note; NOTES: [facility] Imaging Services [address] [place] [address] Verdana 4d L/S Spine Min 4 Views MR#: [id number] Acct: [id number] Name: YUMIKO LANDRUM Rep #: [id number] : 1950 64 From: Stephen Barba MD PCP: Adelaida Fraga DO Status: REG CLI Study: L/S Spine Min 4 Views Date of Exam: 04/11/15 Exam# [id number] Ordering Dr: Susannah Fraga ra, DO STUDY: [...] FACR at 20:20 EST , Service support [phone], RAD/L/S Spine Min 4 Views IMPRESSION: M ild degenerative disc disease at L2-3 and L5-S1. Facet arthrosis at L4-5 and L5-S1. Mild dextroscoliosis. Electronically Signed: Stephen Barba MD, FACR at 20:20 EST Tel , Service support [phone], CC: Adelaida Fraga DO Silvering Applicator: Signed 27-Aug-2014 Chest PA and Lateral Result: Comments: See Note; NOTES: [facility] Imaging Services [address] [place] [address] Radiology Report MR#: [id number] Acct: [id number] Name: YUMIKO LANDRUM [place] Rep #: [id number] : 1950 M 63 From: Wilfredo Alvarado MD PCP: Adelaida Fraga DO Status: REG CLI Study: Chest PA and Lateral Date of Exam: 08/27/14 Exam# [id number] Ordering Dr: Adelaida Fraga DO STUDY: X- [...] Wilfredo Alvarado MD at 15:46 EDT Tel [phone], Service support [phone], 0079 RAD/Chest PA and Lateral IMPRESSION: Inc reased markings in the lingular segment of the left upper lobe suggestive of early infiltrate. Followup is recommended. Electronically Signed: Wilfredo Alvarado MD at 15:46 EDT Tel [phone], Service support [phone], CC: Adelaida Fraga DO Silvering Applicator: Signed 02-Jul-2013 12 Lead Electrocardiogram Result: Comments: See Note; NOTES: [facility] Cardiovascular Services [address] [place] [address] 12 Lead EKG 06/17/13 1938 MR#: [id number] Acct: [id number] Name: CITLALLI LANDRUM [place] Rep #: [id number] : 1950 62 From: Remigio Lares MD [...] Abnormal ECG Confirmed by GERDA CALVO, REMIGIO ([id number]), editorial clerk KARYNA RUBALCAVA ([id number]) on 2013 10:04:35 AM Referred By: Jose Fernando Confirmed By:REMIGIO LARES MD CC: Adelaida byrd DO Date Dictated: 06/17/131937 Date Transcribed: 06/17/131937 Silvering Applicator: Signed 30-Jun-2013 Emergency Department Summary Result: Comments: See Note; NOTES: [facility] Medical Records Department [address] [place] [address] Emergency Department Summary MR#: [id number] Acct: [id number] Name: YUMIKO LANDRUM Rep #: [id number] : 1950 62 From: Jose Fernando MD [...] stent placed by Dr. Mariah carr in [facility]. He has been off his blood [...] and sensation, cranial nerve function and treatment. [facility] DEPARTMENT COURSE: Portable one-view chest [...] a 3. He agreed to go to [facility] where his inflatable buildings laminator is in case he needs another cath and stent. He was stable for transfer. I spoke with [facility], Jorge and Dr. Trujillo as school inspector accepted the patient after being advised of all the above through the transfer deboning team leader. He did not want to talk to me. The patient is stable for transfer, with him. DIAGNOSES: 1. Chest pain. 2. Unstable angina. Jose Fernando MD C C: Adelaida Fraga DO T: NTS JOB: [id number] 06/30/13 0021 <Electronically signed by Jose Fernando MD> Date Jose Fernando MD CC: Adelaida Fraga DO Date Dictated: 06/28/132254 Date Transcribed: 06/28/132254 Silvering Applicator: Signed 28-Jun-2013 Chest 1 View (Portable) Result: Comments: See Note; NOTES: [facility] Imaging Services [address] [place] [address] Radiology Report MR#: [id number] Acct: [id number] Name: YUMIKO LANDRUM [place] Rep #: [id number] : 1950 M 62 From: Wilfredo Alvarado MD PCP: Adelaida Fraga DO Status: DEP ER Study: Chest 1 View (Portable) Date of Exam: 06/28/13 Exam# [id number] Ordering Dr: Jose Fernando MD STUDY: X-RAY [...] Wilfredo Alvarado MD at 9:06 EDT Tel [phone], Service support [phone], CC: Adelaida Fraga DO; Jose Fernando MD Silvering Applicator: Signed Immunization Name Dates Details Influenza vaccine, split, 3yrs &>, IM (AFLURIA) on: Nov-2017 Influenza, inj, MDCK, preservative free, q.valent on: 07-Dec-2016 Comments: Site: Lot #: [id number] Family History Unknown Family Member Name Dates [...] Active 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 81-Cfx-477704:31 Hemoglobin A1c Comments: [facility] [address] [place], [place], [address] HGB A1C 6.0 % (Normal) Range: 4.2-6.3 02-Dtv-570725:31 Lipid Profile Comments: [facility] [address] [place], [place], [address] VLDL 24 mg/dL (Normal) Range: 5-40 LDL [...] Risk :31 PSA,Total - Annual Screen Comments: [facility] [address] [place], [place], [address] PSA,TOT SCREEN 0.50 ng/mL (Normal) Range: 0.00-4.00 Comments: This test was performed using the TPSA assay method for the[facility] chemistry system. Values obtained with differentassay methods cannot be used interchangably.When changing PSA assays in the course of monitoring apatient, additional sequential testing should be carriedout to confirm baseline values. 59-Ixy-064069:42 Aspergillus Antibodies Comments: [facility] (refer to report for specific site)refer to report for address and phone number Asp. niger Negative (Normal) Asp. flavus Negative (Normal) Asp. fumigatus Negative (Normal) :42 Immunoglobulin E Comments: [facility] (refer to report for specific site)refer to report for address and phone number IMMUNO E 19 {IU/mL} (Normal) Range: 0-100 65-Vjf-458220:42 Immunoglobulin G [facility]er [facility] for specific site)refer to report for address and phone number IMMUNO G 702 mg/dL (Normal) Range: 700-1600 Comments: Performed at: [address] [id number] Director: Joseph Velez MD, Phone: [phone] at: [place] [address]Vrd Director: Hugo Britt PhD, Phone: [phone] 25-Tud-776161:42 Miscellaneous Lab Comments: Comments: [id number] CASTRO,RTTest(s) [facility]dered: [facility] [address] [place], [place], [address] Procedure MIS Comments: TEST RESULT UNITS REFERENCE INTERVALA. fumigatus #1 Abs NEGATIVE NEGATIVE TESTING PERFORMED AT [facility]. O LAB (Normal) RIGINAL REPORT ON FILE IN LAB CONTAINS ADDITIONAL TEST SITE INFORMATION. TEST 8-Jso-244516:28 Acetylcholine Receptor Comments: Has Patient had Radioactive Injection for X-ray?: [facility] (refer to report for specific site)refer to report for address and phone number ACTYL [id number] < 0.03 nmol/L (Normal) Range: 0.00-0.24 Comments: Negative: 0.00 - 0.24 Borderline: 0.25 - 0.40 Positive: > 0.40Performed at: [address] [id number] Director: Joseph Velez MD, Phone: [phone] 8-Slq-853694:28 BUN 9 mg/dL (Normal) Comments: [facility] [address] [place], [address] Range: 7-18 2-Ksj-305612:28 Serum Creatinine AND GFR Comments: [facility] [address] [place], [address] EST GFR - AA 100 mL/min (Normal) Comments: GFR Calc EST GFR 83 mL/min (Normal) Comments: Non- GFR Calc CREAT,SERUM 0.97 mg/dL (Normal) Range: 0.70-1.30 Comments: The validity of the calculated GFR AND GFRAA in patients over70 years has not been determined. Clinical correlation isessential. 03-Gcz-195448:13 Culture, Fungus 8482 Comments: [facility] [address] [place], [address] CUF See Note Comments: Cu,Ktqebr5614 TESTING PERFORMED AT [facility]. ORIGINAL REPORT ON FILE IN LAB CONTAINS ADDITIONAL TEST SITE INFORMATION. (Normal) ORGANISM 1: Barron albicansAmount Growth Growth ORGANISM 2: Penicillium speciesAmount Growth Growth 44-Zly-200526:13 Culture, Sputum Comments: [facility] [address] [place], [address] CUSP See Note (Normal) Comments: Gram StainAcceptable Specimen? Yes (<25 Epithelial cells per/lpf) Gram Stain 2+ White Blood Cells 2+ Epithelial cells 4+ Gram positive cocci 4+ Gram positive rods Resp. CultureNo Haemoph ilus, Streptococcus pneumoniae, beta-hemolytic Streptococcus or Staphylococcus aureus isolated. ORGANISM 1: Yeast Like OrganismAmount Growth Rare ORGANISM 2: Mixed FloraAmount Growth 3+ 37-Xhg-863622:59 CBC W/Diff, Automated Comments: [facility] [address] [place], [place], [address] Absolute Lymph 1.98 {X10_3/ul} (Normal) Range: 0.83-4.51 [...] 4.6-6.2 WBC 10.8 K/mm3 (Normal) Range: 4.4-11.0 73-Ify-056231:59 Comprehensive Metabolic Profil Comments: [facility] [address] [place], [place], [address] GAP 10 (Normal) Range: 5-15 CO2 27.0 [...] A.D.A. criteria.Please note revised GLUCOSE reference range hsytagwcb61/02/2018. 36-Xxr-915155:59 Hemoglobin A1c Comments: [facility] [address] [facility] [address] [place], [place], [address] HGB A1C 6.2 % (Normal) Range: 4.2-6.3 51-Ulu-697492:59 Lipid Profile Comments: [facility] [address] [facility] [address] [place], [place], [address] VLDL 13 mg/dL (Normal) Range: 5-40 LDL [...] 200-240 mg/dL Borderline >240 mg/dL High Risk 53-Xbk-444725:59 Microalb:Creat Ratio,Random UR Comments: [facility] Qkwzwgvvte[address] [place], [place], [address] MALB:CREAT 10.1 {mg/g_CRE} (Normal) MICROALBUMIN,UR 5.6 mg/L (Normal) UR CREAT 55.70 mg/dL (Normal) :45 Basic Metabolic Profile (BMP) Comments: [facility] Pkpvofwqih8[address] [place], [place], [address] GAP 6 (Normal) Range: 5-15 CO2 29.0 [...] Comments: Please note revised GLUCOSE reference range evvsyeedy75/02/2018. 2-Hzc-431358:45 Lipid Profile Comments: [facility] Sumnbuiscx24[address] [place], [place], [address] VLDL 22 mg/dL (Normal) Range: 5-40 LDL [...] 200-240 mg/dL Borderline >240 mg/dL High Risk 3-Nqz-816934:45 Liver Profile Comments: [facility] Oyhteqcgvx7844 [place], [address] D BILI 0.13 mg/dL (Normal) Range: 0.00-0.30 T BILI 0.50 mg/dL (Normal) Range: 0.20-1.00 ALT 27 U/L (Normal) Range: 16-61 ALK P 53 U/L (Normal) Range: 45-117 AST 20 U/L (Normal) Range: 15-37 GLOB 4.3 g/dL (Abnormal) Range: 2.2-4.2 ALB 3.0 g/dL (Abnormal) Range: 3.2-5.0 T PROT 7.3 g/dL (Normal) Range: 6.4-8.2 42-Wtz-289461:31 Basic Metabolic Profile (BMP) Comments: [facility] Uggocrtqgp6692 [address] [place], [place], [address] GAP 4 (Abnormal) Range: 5-15 CO2 27.0 [...] A.D.A. criteria.Please note revised GLUCOSE reference range ggelhapnu41/02/2018. 47-Jxy-611701:31 CBC-Complete Blood Cnt No Diff Comments: [facility] Qaeboceydq6146 [address] [place], [place], [address] MPV 8.7 fL (Normal) Range: 6.2-12.0 PLT [...] 4.6-6.2 WBC 9.6 K/mm3 (Normal) Range: 4.4-11.0 39-Dts-953907:31 Partial Thromboplast Time Comments: [facility] [address] [place], [place], [address] PTT 26.1 s (Normal) Range: 24.1-36.2 99-Tos-064476:31 Prothrombin Time w/INR Comments: [facility] Cadmocxnlz69[address] [place], [place], [address] INR 0.9 (Normal) PROTIME 12.5 s (Normal) Range: 11.7-14.9 :00 Culture, Fungus 8482 Comments: [facility] [address] [place], [address] CUF See Note Comments: Cu,Dyvnoi9056 TESTING PERFORMED AT [facility]. ORIGINAL REPORT ON FILE IN LAB CONTAINS ADDITIONAL TEST SITE INFORMATION. (Normal) ORGANISM 1: Barron albicansAmount Growth Growth ORGANISM 2: Penicillium speciesAmount Growth Growth ORGANISM 3: Aspergillus speciesAmount Growth Growth :00 Culture, Sputum Comments: [facility] [address] [place], [place], [address] CUSP See Note (Normal) Comments: Gram StainAcceptable Specimen? Yes (<25 Epithelial cells per/lpf) Gram Stain 1+ White Blood Cells Rare Epithelial cells 4+ Gram positive rods 1+ Gram negative rods Resp. Culture Mixed nor mal respiratory ashkan. No Haemophilus, Streptococcus pneumoniae, beta-hemolytic Streptococcus or Staphylococcus aureus isolated. 93-Sfy-250016:00 Culture, Sputum Comments: [facility] Tu[address] [place], [address] CUSP See Note (Normal) Comments: Gram StainAcceptable Specimen? Yes (<25 Epithelial cells per/lpf) Gram Stain 1+ White Blood Cells Rare Epithelial cells 3+ Gram positive cocci Resp. CultureMixed normal respiratory ashkan. No Haemophilus, Streptococcus pneumoniae, beta-hemolytic Streptococcus or Staphylococcus aureus isolated. 00-Zvy-197967:44 TESTOSTERONE FREE (54945) Comments: PATIENT NOT FASTINGPERFORMED BY: [facility]CoG[facility] Psych[facility] HospitalNyrknf9383 [facility] [id number] BY: [address] [id number] Free Testosterone(Direct) 2.6 pg/mL (Abnormal) Range: 6.6-18.1 07-Lsq-126677:44 HEPATITIS C ANTIBODY Comments: PATIENT NOT FASTINGPERFORMED BY: [place] [address]0070 [facility] [id number] BY: [address] [id number] ([address]) Hep C Virus Ab 0.1 {s/co_ratio} (Normal) Range: 0.0-0.9 Comments: Negative: < 0.8 Indeterminate: 0.8 - 0.9 Positive: > 0.9 . The CDC recommends that a positive HCV antibody result be followed up with a HCV Nucleic Acid Amplification test (539070). 16-Azs-331988:44 CBC W/AUTO DIFF WBC Comments: PATIENT NOT FASTINGPERFORMED BY: [place] [address]0070 [facility] [id number] BY: [address] [id number] (21547) Immature Grans (Abs) 0.0 {x10E3/uL} (Normal) Range: [...] 4.14-5.80 WBC 6.1 {x10E3/uL} (Normal) Range: 3.4-10.8 03-Vph-987512:44 METABOLIC PANEL, Comments: PATIENT NOT FASTINGPERFORMED BY: CB [facility] Qxzicj5532 [facility] [id number] BY: BN [facility] Ckambtfipi5278 [facility] [id number] [facility] (71907) ALT (SGPT) 17 [iU]/L (Normal) Range: 0-44 [...] 8-27 Glucose 102 mg/dL (Abnormal) Range: 65-99 25-Wua-437511:15 HgA1C , Office (13695) HgA1C , Office 5.7 % (Normal) Range: 4.6 - 7.1 :30 CBC W/Diff, Automated Comments: [facility] Ikfvpohozr5[address] [place], [address] Absolute Lymph 1.76 {X10_3/ul} (Normal) Range: 0.83-4.51 [...] 4.6-6.2 WBC 6.7 K/mm3 (Normal) Range: 4.4-11.0 55-Fmz-161505:30 Comprehensive Metabolic Profil Comments: [facility] Qevzzsjnqs0559 [address]. [place], [address] GAP 9 (Normal) Range: 5-15 CO2 25.0 [...] 7-18 GLU 78 mg/dL (Normal) Range: 70-110 61-Aeu-248372:30 Culture, Urine Comments: [facility] Uzmjssbybn5632 [place], [address] CUUR See Note (Normal) Comments: Urine CultureCulture exhibits no growth. 36-Bhn-520905:30 Lipid Profile Comments: [facility] Ynlxxuuogz3540 [place], [address] VLDL 19 mg/dL (Normal) Range: 5-40 LDL [...] 200-240 mg/dL Borderline >240 mg/dL High Risk 63-Xgt-943559:10 Rapid Strep Test, Office (49344) Comments: Negative Rapid Strep Test, Office Negative (Normal) 89-Cho-17056:51 THROAT CULTURE (49256) Comments: PATIENT NOT FASTINGPERFORMED BY: [facility] [id number] Information: SRC: Result 1 RRF (Normal) Comments: Routine respiratory ashkan Upper Respiratory Culture Final report (Normal) 88-Kqm-006373:02 Rapid Flu (78757 x 2) Comments: Negative Influenza A Ag Negative (Normal) :45 URINE WARREN CULTURE-IDENTIFICATN Comments: PERFORMED BY: [facility] Gsdrbc4045 [facility] [id number] Information: SRC:UC (68344) Result 1 NG36 (Normal) Comments: No growth in 36 - 48 hours. Urine Culture,Comprehensive Final report (Normal) 96-Xrg-612237:02 Urinalysis, Office (22787) UA - LEUKOCYTE ESTERASE Negative (Normal) UA - NITRITE Negative (Normal) URINE UROBILINGN MASSIEL TIMED Normal mg/dL (Normal) UA - PROTEIN Negative mg/dL (Normal) UA - PH 7 (Normal) UA - BLOOD Negative (Normal) UA - SPECIFIC GRAVITY 1.020 (Normal) UA - KETONES Negative mg/dL (Normal) UA - BILIRUBIN Negative (Normal) UA - GLUCOSE Negative (Normal) 75-Orv-401111:22 CBC W/Diff, Automated Comments: [facility] Kvahvnwtrs7[address] [place], [address] Absolute Lymph 1.50 {X10_3/ul} (Normal) [...] 4.6-6.2 WBC 6.2 K/mm3 (Normal) Range: 4.4-11.0 53-Kkf-954658:22 Comprehensive Metabolic Profil Comments: [facility] Qvyzavcdyc4542 [address] [place], [address] ; will review opn 11/10 [...] 7-18 GLU 104 mg/dL (Normal) Range: 70-110 15-Grp-633397:22 Hemoglobin A1c Comments: [facility] Mofxfqqndd7229 [address] [place], [place], [address] HGB A1C 5.6 % (Normal) Range: 4.2-6.3 55-Itj-163264:22 Immunofixation, Serum Comments: [facility] (refer to report for specific site)refer to report for address and phone number PAULA RESULT,S Comment (Normal) Comments: No monoclonality detected. IMMUNOGL M 53 mg/dL (Normal) Range: 20-172 IMMUNO A 169 mg/dL (Normal) Range: 61-437 IMMUNO G 692 mg/dL (Abnormal) Range: 700-1600 15-Fva-362316:22 [employer] Chains Comments: [facility] (refer to report for specific site)refer to report for address and phone number KAPPA/LAMBDA % 1.17 (Normal) Range: 0.26-1.65 Comments: Performed at: - [facility] [id number] Director: Hugo Britt PhD, Phone: [phone] FR LAMBDA LT CH 12.3 mg/L (Normal) Range: 5.7-26.3 FR KAPPA LT CHN 14.4 mg/L (Normal) Range: 3.3-19.4 56-Lxk-596262:22 Lipid Profile Comments: [facility] Bhwqazijqi77[address] [place], [place], [address] VLDL 20 mg/dL (Normal) Range: 5-40 LDL [...] 200-240 mg/dL Borderline >240 mg/dL High Risk 79-Oxe-513837:22 Microalb:Creat Ratio,Random UR Comments: [facility] Ebznqpmona1748 [place], [address] ; will review on 11/10 MALB:CREAT 5.6 {mg/g_CRE} (Normal) MICROALBUMIN,UR 7.2 mg/L (Normal) UR CREAT 128.00 mg/dL (Normal) 80-Oyz-276813:22 PSA,Total - Annual Screen Comments: [facility] Gfwnodosdk5539 [address] [place], [place], [address] PSA,TOT SCREEN 0.63 ng/mL (Normal) Range: 0.00-4.00 Comments: This test was performed using the TPSA assay method for the[facility] chemistry system. Values obtained with differentassay methods cannot be used interchangably.When changing PSA assays in the course of monitoring apatient, additional sequential testing should be carriedout to confirm baseline values. :07 CBC W/Diff, Automated Comments: [facility] [address] [place], [place], [phone] Absolute Lymph 1.42 {X10_3/ul} (Normal) Range: 0.83-4.51 [...] Range: 4.4-11.0 :07 Comprehensive Metabolic Profil Comments: [facility] U[address] [place], [place], [address] GAP 8 (Normal) Range: 5-15 CO2 27.0 [...] 7-18 GLU 104 mg/dL (Normal) Range: 70-110 49-Viw-456393:07 Hemoglobin A1c Comments: [facility] Zsphedxgah3383 [address] [place], [place], [address] HGB A1C 5.6 % (Normal) Range: 4.2-6.3 99-Mzf-794512:07 PAULA + Protein Elect, Serum Comments: Is Patient Fasting? [facility] (refer to report for specific site)refer to report for address and phone number NOTE: Comment (Normal) Comments: Protein electrophoresis scan will follow via computer,mail, or mica layer delivery.Performed at: [address] [id number] Director: Hugo Britt PhD, Phone: [phone] PAULA RESULT,S Comment (Normal) Comments: No monoclonality detected. A/G RATIO 1.2 (Normal) Range: 0.7-1.7 GLOBULIN, TOTAL 3.0 g/dL (Normal) Range: 2.2-3.9 M-SPIKE g/dL (Normal) Comments: Not Observed GAMMA GLOBULIN 0.7 g/dL (Normal) Range: 0.4-1.8 BETA GLOBULIN 1.1 g/dL (Normal) Range: 0.7-1.3 WQEHF-7-PMJV 0.8 g/dL (Normal) Range: 0.4-1.0 IRWAF-3-LTCF 0.3 g/dL (Normal) Range: 0.0-0.4 ALBUMIN 3.3 g/dL (Normal) Range: 2.9-4.4 IMMUNOGL M 53 mg/dL (Normal) Range: 20-172 IMMUNO A 177 mg/dL (Normal) Range: 61-437 IMMUNO G 761 mg/dL (Normal) Range: 700-1600 PROTEIN,TOTAL 6.3 g/dL (Normal) Range: 6.0-8.5 58-Hok-348088:07 Lipid Profile Comments: [facility] Y[address] [place], [place], [address] VLDL 21 mg/dL (Normal) Range: 5-40 LDL [...] High Risk :01 CBC W/Diff, Automated Comments: [facility] Qsrwfsc[address] [place], [address] Absolute Lymph 1.62 {X10_3/ul} (Normal) [...] 4.6-6.2 WBC 7.6 K/mm3 (Normal) Range: 4.4-11.0 92-Dby-153877:01 Comprehensive Metabolic Profil Comments: [facility] Tbmkfxqfob3218 Andrea [place], [place], [address] ; has apt today GAP 7 (Normal) [...] 7-18 GLU 96 mg/dL (Normal) Range: 70-110 54-Xcb-351697:01 Lipid Profile Comments: [facility] Scstyjbstz4420 [address] [place], [place], [address] VLDL 11 mg/dL (Normal) Range: 5-40 LDL [...] 200-240 mg/dL Borderline >240 mg/dL High Risk 17-Cus-829842:01 Lipoprotein A 369 nmol/L (Abnormal) Comments: [facility] [...] genetic factors on Lp(a) across ethnicities.Performed at: [facility] [id number] Director: Hugo Britt PhD, Phone: [phone] 15-Tnu-057066:56 HgA1C , Office (90217) HgA1C , Office 5.6 % (Normal) Range: 4.6 - 7.1 5-Oeg-813231:19 ANCA Panel Comments: PATIENT NOT FASTINGPERFORMED BY: The [facility] [id number] BY: [employer] [address] [id number] Atypical pANCA <1:20 {titer} Comments: The atypical [...] Antinuclear Antibodies Comments: PATIENT NOT FASTINGPERFORMED BY: [facility] [id number] BY: [facility] [place] [id number] Direct JOHN Direct Negative (Normal) :1 C-Reactive Protein, 2.1 mg/L (Normal) Comments: PATIENT NOT FASTINGPERFORMED BY: [address] [id number] BY: [facility] [facility] [place] [id number] 9 Quant Range: 0.0-4.9 :19 Rheumatoid Arthritis Comments: PATIENT NOT FASTINGPERFORMED BY: [address] [id number] BY: [place] [address] [address] [facility] [id number] Factor RA Latex Turbid. 7.8 {IU/mL} Range: 0.0-13.9 (Normal) Sedimentation 8 mm/h (Normal) Comments: PATIENT NOT FASTINGPERFORMED BY: [address] [id number] BY: [facility] [facility] [id number] :19 Rate-Westergren Range: 0-30 Thyroid Peroxidase (TPO) 8 {IU/mL} (Normal) Comments: PATIENT NOT FASTINGPERFORMED BY: [address] [id number] BY: [facility] [facility] [place] [id number] :19 Ab Range: 0-34 :19 Thyroxine (T4) Free, Comments: PATIENT NOT FASTINGPERFORMED BY: [address] [id number] BY: [facility] [facility] [place] [id number] Direct, S T4,Free(Direct) 1.11 ng/dL Range: 0.82-1.77 (Normal) Triiodothyronine,Free,Seru 2.5 pg/mL (Normal) Comments: PATIENT NOT FASTINGPERFORMED BY: [facility]1447 [facility] [id number] BY: [facility]6370 [facility] [id number] 2:19 m Range: 2.0-4.4 TSH 3.450 {uIU/mL} Comments: PATIENT NOT FASTINGPERFORMED BY: [facility] [id number] BY: [facility]6370 [facility] [id number] 2:19 (Normal) Range: 0.450-4.500 6-Vam-903695:30 Pathology Report Comments: PERFORMED BY: [facility] Lsqfk38076 [facility] [id number] Information: [id number] See MATER Comments: Material submitted: .FOREHEAD SHAVE [...] IN CASSETTE(S) A./CORCOR/CORPa thologist provided ICD-10:D48.5, L90.9CPT .736501 96-Fic-29376:22 TESTOSTERONE FREE (28302) Comments: PATIENT WAS FASTINGPERFORMED BY: [facility] [facility] [id number] BY: Secure[address] [id number] Free Testosterone(Direct) 2.5 pg/mL (Abnormal) Range: 6.6-18.1 26-Rbt-47923:22 VITAMIN B-12 (CYANOCOBALAMIN) Comments: PATIENT WAS FASTINGPERFORMED BY: [employer] [facility] [id number] BY: [facility] [employer] [id number] (89[address]) Vitamin B12 638 pg/mL (Normal) Range: 211-946 31-Jxx-42691:22 CBC W/AUTO DIFF WBC Comments: PATIENT WAS FASTINGPERFORMED BY: [employer]70 [facility] [id number] BY: Secure[address] [id number] Inf ormation: NURSE DRAW (98958) Immature Grans (Abs) 0.0 {x10E3/uL} (Normal) Range: [...] 4.14-5.80 WBC 7.3 {x10E3/uL} (Normal) Range: 3.4-10.8 07-Nvh-71907:22 METABOLIC PANEL, Comments: PATIENT WAS FASTINGPERFORMED BY: CB [facility] Hjtfcc6381 [facility] [id number] BY: [facility] [address] [id number] [facility] (267[address]) ALT (SGPT) 12 [iU]/L (Normal) Range: 0-44 [...] Glucose, Serum 100 mg/dL (Abnormal) Range: 65-99 20-Kqw-25565:52 CBC W/Diff, Automated Comments: [facility] Vfwpwuvltq2712 Andrea [place], [place], [address] Absolute Lymph 1.73 {X10_3/ul} (Normal) Range: 0.83-4.51 [...] 4.6-6.2 WBC 6.0 K/mm3 (Normal) Range: 4.4-11.0 07-Noo-60904:52 Comprehensive Metabolic Profil Comments: [facility] Oizxqwuitx3159 [place], [address] GAP 6 (Normal) Range: 5-15 CO2 26.0 [...] (Normal) Range: 70-110 :52 Hemoglobin A1c Comments: [facility] [address] [place], [place], [address] HGB A1C 5.6 % (Normal) Range: 4.2-6.3 :52 Lipid Profile Comments: [facility] [address] [place], [address] VLDL 21 mg/dL (Normal) Range: [...] High Risk :52 Microalb:Creat Ratio,Random UR Comments: [facility] [address] [place], [place], [address] MALB:CREAT 9.1 {mg/g_CRE} (Normal) MICROALBUMIN,UR 9.0 mg/L (Normal) UR CREAT 99.50 mg/dL (Normal) :52 PSA,Total - Annual Screen Comments: [facility] Netjd[address] [place], [address] PSA,TOT SCREEN 0.51 ng/mL (Normal) Range: 0.00-4.00 Comments: This test was performed using the TPSA assay method for [facility] chemistry system. Values obtained with differentassay methods cannot be used interchangably.When changing PSA assays in the course of monitoring apatient, additional sequential testing should be carriedout to confirm baseline values. COLON BIOPSY (CHOOSE See Note (Normal) Comments: [facility] Dulnurhnoo[address] [place], [address] :45 SITE) Comments: Patient: YUMIKO LANDRUM : 1950 (64/M) Acct Num: [id number] Phys: ViktorErnestine belletracy Unit Num: [id number] Loc: LABSPEC Specimen: [id number] Received: 09/11/151646 Spec Type: C ZONIA BX [...] in one cassette. / IRON:momo 09/11 TC:1 CPT:24214 x2 HEADER OPERATION: Colonoscopy with biopsy PRE-OP DIAGNOSIS: Screening/polyp TISSUE SUBMITTED: A - Polyp cecum, R/O adenoma, B - Polyp sigmoid, R/O adenoma MICROSCOP IC DESCRIPTION Slides are reviewed. MICROSCOPIC DIAGNOSIS A. Polyp cecum, biopsy: Fragments of tubular adenoma. B. Polyp sigmoid, biopsy: Fragments of tubular adenoma. IRON:momo 09/15/15 Signed Pamella Son 09/15/15 <signature on file> 99-Bnr-842115:37 CBC W/Diff, Automated Comments: [facility] Wdfhflwzap[address] [place], [place], [address] ; noon-emergent till apt Absolute Lymph 1.39 [...] 4.6-6.2 WBC 6.5 K/mm3 (Normal) Range: 4.4-11.0 54-Zuv-387369:37 Comprehensive Metabolic Profil Comments: [facility] Wzmbvdzhoh2308 [address]. [place], [place], [address] GAP 6 (Normal) Range: 5-15 CO2 27.0 [...] <126 mg/dLsuggests IMPAIRED HOMEOSTASIS per A.D.A. criteria. 30-Tta-422114:37 Hemoglobin A1c Comments: [facility] Ngqrabjhwp6459 [facility], [address] HGB A1C 5.6 % (Normal) Range: 4.2-6.3 38-Spl-228918:37 Lipid Profile Comments: [facility] Qicgcqojpl4823 [facility] [place], [address] VLDL 17 mg/dL (Normal) Range: [...] 200-240 mg/dL Borderline >240 mg/dL High Risk 4-Vne-322423:12 Factor II, DNA Analysis Comments: [facility] (refer to report for specific site)refer to report for address and phone number COMMENT Comment (Normal) Comments: Genetic Counselors are available for health care providersto discuss results at [phone] (4491).Methodology:DNA analysis of the Factor II gene was performed by PCRamplification followed by restric tion analysis. Thediagnostic sensitivity is >99% for both. All the tests mustbe combined with clinical information for the most accurateinterpretation. Molecular-based testing is highly accurate,but as in any laboratory test, diagnostic errors may occur.Matthewt SR, et al. Blood. 1996; 88:8733-8497.Diallo EA. Circulation. 2004; 110:e15-e18.Bobby I, et al. Arterioscler Thromb Vasc Biol. 1999;19:700 -703.Lance Shea, PhDRuthie Cooper, PhDAnahy Delgado, Lorena Beal, Xiomara Easley, PhDKelly Benjamin, PhDPerformed at: TG - [facility] ZAL1903 [place], [place] [id number] villa: Vilma Butterfield MD, Phone: [phone] FACTOR II,DNA Comment (Normal) Comments: NEGATIVENo mutation identified.Comment:A point mutation ([id number]) in the factor II (prothrombin)gene is the [...] individual mutations. This assaydetects only the prothrombin G64522R mutation and doesnot measure genetic abnormalities elsewhere i n thegenome. Other thrombotic risk factors may be pursuedthrough systematic clinical laboratory analysis. Thesefactors include the R506Q (Leiden) mutation in the Factor Vgene, plasma homocysteine levels , as well as testing fordeficiencies of antithrombin III, protein C and protein S. 42-Uow-71743:42 Miscellaneous Comments: Comments: [id number],PLASMA,[facility](s) Ordered: [id number],PLASMA,[facility] Xccffohnxz[address] [place], [address] Lab Procedure MISC Comments: TEST RESULT UNITS REFERENCE INTERVALAntithrombin III, Func/ImmunolAntithrombin Activity 97 % 75 - 135Antithrombin Antigen 97 % 75 - 130 LAB (Normal) TESTING PERFORMED AT [facility]. ORIGINAL REPORT ON FILE IN LAB CONTAINS ADDITIONAL TEST SITE INFORMATION. TEST 1 Throm 15.9 Comments: [facility] (refer to report for specific site)refer to report for address and phone number 9 bin {sec} Range: 0.0-20.0 - Time (Normal) Comments: Performed at: BN - Lab[address] [id number] Director: Joseph Velez MD, Phone: [phone] F e b - 2 0 1 6 9 : 4 2 :34 CBC W/Diff, Automated Comments: [facility] Ymblvwvido[address] [place], [place], [address] Absolute Lymph 1.34 {X10_3/ul} (Normal) Range: 0.83-4.51 [...] 4.6-6.2 WBC 5.3 K/mm3 (Normal) Range: 4.4-11.0 38-Xim-70508:34 Comprehensive Comments: Comments: [id number],Gabriela PALMERMcCullough-[facility] [address]uvrrmce[address] [place] [place], [address] ; apt today Metabolic Profil GAP 8 [...] for health careproviders to discuss results at [phone] ([phone]).Methodology:DNA analysis of the Factor V gene was [...] PhDBette lugo, PhDKelly Benjamin, PhDPerformed at: - LabCoJohn Ville 027447 [place], [place] [address]Vjd Director: Joseph Velez MD, Phone: [phone] at: [facility] BXF0395 [place], [place] [address]Awi Director: Vilma Butterfield MD, Phone: [phone] FACTOR V LEIDEN Comment (Normal) Comments: Result: [...] in the workup for venous thrombosis include eseG17060P mutation in the factor II (prothrombin) gene,protein S and C deficiency, and antithrombin deficiencies.Anticardiolipin antibody and lupus anticoagu lant analysismay be appropriate for certain patients, as well ashomocysteine levels.Contact your local [facility] for information on how to orderadditional testing if desired. :34 Hemoglobin A1c Comments: [facility] [address]liyaoybct[address] [place], [place], [address] HGB A1C 5.6 % (Normal) Range: 4.2-6.3 :34 Lipid Profile Comments: Comments: [id number],SPENCERUniversity [facility]als [facility] [address]yiakvmvah2[address] [place], [address] VLDL 17 mg/dL (Normal) Range: [...] 200-240 mg/dL Borderline >240 mg/dL High Risk 14-Xzm-53813:34 Miscellaneous Lab Comments: Comments: [id number],BLUEANDRED,FZTest(s) Ordered: [id number] BLAKE FZWPremier Health [facility] Center Jzweyslmin[address] [place], [address] Procedure MISC Comments: TEST RESULT UNITS REFERENCE [...] anticoagulant is not de tected. aCL and C9GO9lvnntheynm are normal.ANTIPHOSPHOLIPID SYNDROME ASSESSMENT SUMMARY-No evidence of a lupus anticoagulant, B2GP1 or aCLantibodies. As antibody titers may fluctuate with time,repeat te sting may be indicated if antiphospholipid syndromeis suspected.ANTIPHOSPHOLIPID SYNDROME ASSESSMENT DEFINITIONS-aCL- anticardiolipin (antibodies to cardiolipin); Q0JU6-xvfyvlrfeh to Beta-2 Glycoprotein 1; LA- lupus anticoagulant(which is identified with the dRVVT and/or hexagonalphospholipid neutralization assays); aPL- antibodies toprotein/phospholipid complexes such as LA, aCL, and X9AN3gthsrwveha; APS- antiphospholipid syndrome; DTI-directthrombin inhibitors.-ASSISTANT THERAPY AIDE:For questions regarding panel interpretation, please contactHalle Arrington [...] Mathews et al. J Thromb Haemost. 2009; 7(10):5657-6790.(2) Tyrone Lugo et al. J Thromb H aemost. 2006;4(2):295-306.(3) Keith DA et al. Blood. 2007;110(9): 9506-5011. TESTING PERFORMED AT [facility]. ORIGINAL REPORT ON FILE IN LAB [...] Range: 58-150 :54 CBC W/Diff, Automated Comments: [facility] [address] [place], [place], [id number] Absolute Lymph 1.61 {X10_3/ul} (Normal) Range: 0.83-4.51 [...] 4.6-6.2 WBC 7.1 K/mm3 (Normal) Range: 4.4-11.0 02-Law-812545:54 Comprehensive Metabolic Profil Comments: [facility] [address] [place], [address] GAP 7 (Normal) Range: 5-15 CO2 26.0 [...] 7-18 GLU 98 mg/dL (Normal) Range: 70-110 43-Xco-029999:54 Lipid Profile Comments: [facility] [address] [place], [address] ; apt today VLDL 19 [...] 21-Sep-20148:55 Comprehensive Metabolic Profil Comments: Test performed at:[facility] Uwmetkawhg1764 [facility] [place] [address] GAP 7 (Normal) Range: 5-15 [...] Comments: Please note revised CREATININE reference range mfvpcmesx43/22/2015. BUN 15 mg/dL (Normal) Range: 7-18 GLU 103 mg/dL (Normal) Range: 70-110 :55 Hemoglobin A1c Comments: Test performed at:[facility] [address] [place] [address] HGB A1C 6.0 % (Normal) Range: 4.2-6.3 :55 Lipid Profile Comments: Test performed at:[facility] [address] [place] [address] VLDL 17 mg/dL (Normal) Range: 5-40 LDL [...] generated due to demographicSpecimen Comment: updates.Test performed at:[facility] Laboratory1 [address] [place] [address] dsDNA AB 12 {IU/mL} (Abnormal) Range: 0-9 Comments: Negative <5 Equivocal 5 - 9 Positive >9; ADDENDA: non-emergent because has apt today to discuss. 89-Ssj-642363:49 ANTINUCLEAR ANTIBODIES DIRECT Comments: Test performed at:[facility] [address] [place] [address] JOHN-DIRECT Positive (Abnormal) Comments: Performed at: [facility] Lab[address] [id number] Director: Reno Yanes PhD, Phone: [phone] 72-Eyb-138920:49 CBC W/Diff, Automated Comments: Test performed at:[facility] Xrtuvjxozm8928 [facility]. [place] [address] Absolute Lymph 1.22 {X10_3/ul} (Normal) Range: 0.83-4.51 [...] :49 Comprehensive Metabolic Profil Comments: Test performed at:[facility] Awutpznypf9305 [facility] [place] [address] GAP 6 (Normal) Range: 5-15 [...] Range: 70-110 :49 CRP Comments: Test performed at:[facility] Sajbhtwcey8[address] [facility] [place] [address] C-REACTIVE PROT < 2.90 mg/L (Normal) Range: 0.0-3.0 Comments: C-Reactive Protein (CRP) provides useful information for thediagnosis, therapy and monitoring of inflammatory processesand associated diseases. For the evaluation of Relative Riskfor Cardiovascular Dise ase, a High Sensitivity CRP (HSCRP)should be ordered. 04-Arf-203909:49 Culture, Urine Comments: Test performed at:[facility] [address] [place] [address] CUUR See Note (Normal) Comments: Urine CultureCulture exhibits no growth.; ADDENDA: Pt has apt today, will discuss then 04-Htu-488329:49 Erythrocyte Sed Rate Comments: Test performed at:[facility] [address] [place] [address] SED RATE 21 mm/h (Abnormal) Range: 0-20 34-Aaj-171542:49 Hemoglobin A1c Comments: Test performed at:[facility] [address]vb[address]liq[address] [place] [address] HGB A1C 5.8 % (Normal) Range: 4.2-6.3 89-Vdn-883952:49 Lipid Profile Comments: Test performed at:[facility] Zthjoamzhf[address] [place] [address] VLDL 8 mg/dL (Normal) Range: [...] 200-240 mg/dL Borderline >240 mg/dL High Risk 92-Mhe-323914:49 Microalb:Creat Ratio,Random UR Comments: Test performed at:[facility] [address] [place] [address] MALB:CREAT 12.2 {mg/g_CRE} (Normal) MICROALBUMIN,UR 17.2 mg/L (Normal) UR CREAT 140.0 mg/dL (Normal) :49 PSA,Total - Annual Screen Comments: Test performed at:[facility] [address] [place] [address] PSA,TOT SCREEN 0.47 ng/mL (Normal) Range: 0.00-4.00 Comments: This test was performed using the TPSA assay method for [employer] chemistry system. Values obtained with differentassay methods cannot be used interchangably.When changing PSA assays in the course of monitoring apatient, additional sequential testing should be carriedout to confirm baseline values. :49 Thyroid Stim Hormone (TSH) Comments: Test performed at:[facility] [address] [place], [place] [address] TSH 1.60 {uIU/mL} (Normal) Range: 0.358-3.74 :49 Urinalysis, Complete Comments: How was Urine Obtained? Urine, RandomTest performed at:[facility] [address] [place], [place] [address] MUCUS, URINE 0 SEEN {/hpf} (Normal) BACTERIA [...] How was Urine Obtained? Urine, RandomTest performed at:[facility] Zurtturdpy8625 [facility] [place] [address] MUCUS, URINE 2+ {/hpf} (Normal) [...] (Normal) CLARITY Clear (Normal) COLOR Yellow (Normal) 25-Mcx-777422:07 Comprehensive Metabolic Profil Comments: Test performed at:[facility] Teaukovlyq7595 [facility]. [place], [place] [address] GAP 6 (Normal) Range: 5-15 CO2 28.0 [...] 7-18 GLU 108 mg/dL (Normal) Range: 70-110 21-Tps-785777:07 CPK Total, Creatine Kinase Comments: Test performed at:[facility] [address] [place] [address] CPK TOTAL 91 U/L (Normal) Range: 39-308 60-Bjp-024686:56 Rapid Flu (16902 x 2) Influenza A Ag negative (Normal) 2-Zut-352494:28 URINE WARREN CULTURE-MASSIEL COL Comments: PATIENT NOT FASTINGPERFORMED BY: [facility] Tewhtd8653 [facility] [id number] Information: SRC:UR B80185 COUNT (02401) Result 1 ECV (Abnormal) Comments: Escherichia coli, [...] R Urine Final report Culture,Comprehensi (Abnormal) ve 9-Ulk-009196:58 Urinalysis, Office (61043) UA - LEUKOCYTE ESTERASE Small (Normal) UA - NITRITE Negative (Normal) URINE UROBILINGN MASSIEL TIMED 2 mg/dL (Normal) UA - PROTEIN 30 mg/dL (Normal) UA - PH 6.0 (Normal) Comments: 5.5 UA - BLOOD Hemolyzed Small (Normal) UA - SPECIFIC GRAVITY 1.030 (Abnormal) UA - KETONES Negative mg/dL (Normal) UA - BILIRUBIN Small (Normal) UA - GLUCOSE Negative (Normal) 2-Vbv-257541:41 URINE WARREN CULTURE-MASSIEL COL Comments: PATIENT NOT FASTINGPERFORMED BY: [facility]64CoG[facility] HospitalJrwryk2312 [facility] [id number] Information: SRC: URINE COUNT (85749) Result 1 ECV (Abnormal) Comments: Escherichia coli, [...] R Urine Final report Culture,Comprehensi (Abnormal) ve 2-Mki-855303:27 Urinalysis, Office (63628) UA - LEUKOCYTE ESTERASE Trace (Normal) UA - NITRITE Negative (Normal) URINE UROBILINGN MASSIEL TIMED 2 mg/dL (Normal) UA - PROTEIN Negative mg/dL (Normal) UA - PH 6.0 (Normal) UA - BLOOD Negative (Normal) UA - SPECIFIC GRAVITY 1.010 (Normal) UA - KETONES Negative mg/dL (Normal) UA - BILIRUBIN Negative (Normal) UA - GLUCOSE Negative (Normal) 7-Iql-108377:30 HgA1C , Office (05760) HgA1C , Office 5.7 % (Normal) Range: 4.6 - 7.1 0-Ajg-832301:10 URINE WARREN CULTURE-MASSIEL COL Comments: PATIENT NOT FASTINGPERFORMED BY: [facility]Co[facility] HospitalNbfpbf8104 [facility] [id number] Information: SRC:UR F30682 COUNT (15814) Result 1 NG36 (Normal) Comments: No growth in 36 - 48 hours. Urine Culture,Comprehensive Final report (Normal) 1-Tfu-180246:58 CBCD PATHR Reviewed (Normal) RBCM NORM C+C [...] 4.6-6.2 WBC 5.2 K/mm3 (Normal) Range: 4.4-11.0 9-Ttf-426761:58 CMP GAP 7 (Normal) Range: 5-15 CO2 [...] CHOL 155 mg/dL (Normal) Comments: <200 mg/dL Tcjzrxufx725-261 mg/dL Borderline>240 mg/dL High Risk TRIG 121 [...] (Normal) UCLAR Clear (Normal) UCOL Yellow (Normal) 03-Zuh-059738:20 CUUR URC See Note (Normal) Comments: ESBL+ [...] (NF) indicates non-formulary drug at [facility]. Approval by Infectious DiseaseSpecialist required before non-formulary drugs may beordered and/or dispensed. 37-Meg-097818:20 UA Comments: How was Urine Obtained? CLEAN CATCH ANGE 500 /ul (Abnormal) MICA Negative (Normal) UOB 25 /ul (Abnormal) LEESA 6.0 (Normal) Range: 5.0 - 8.0 uPROTU 30 mg/dL (Abnormal) UROBU 1 mg/dL (Abnormal) KETU Negative mg/dL (Normal) SGU 1.015 (Normal) Range: 1.002-1.030 BILIU Negative mg/dL (Normal) GLUR Normal mg/dL (Normal) UCLAR Cloudy (Normal) UCOL Yellow (Normal) 59-Pzu-636718:27 A1C 5.6 % (Normal) Range: 4.2-6.3 71-Ari-050518:27 B12 574 pg/mL (Normal) Range: 211-911 68-Esm-552098:27 CBC MPV 8.8 fL (Normal) Range: 6.2-12.0 [...] 4.6-6.2 WBC 6.4 K/mm3 (Normal) Range: 4.4-11.0 68-Eej-382792:27 CUUR URC Culture exhibits no growth. (Normal) 96-Miy-326715:27 EBGM EBNA 81.6 U/mL (Abnormal) Range: 0.0-17.9 Comments: Negative <18.0Equivocal 18.0 - 21.9Positive >21.9 tEBINT Comment (Normal) Comments: EBV Interpretation ChartInterpretation EBV-IgM VCA-IgG EBNA-IgG EA(D)-IgGEBV Seronegative - - - -Early Phase + - - -Acute Primary + + - +or-InfectionConvalescence/Past - + + +or-InfectionReactivated +or- + + +Infection+ Antibody Present - Antibody Absen tPerformed at: [facility] Lab[address] [id number] Director: Melquiades Hector MD, Phone: [phone] EBEAG <9.0 U/mL (Normal) Range: 0.0-8.9 Comments: [...] 4.6-6.2 WBC 6.0 K/mm3 (Normal) Range: 4.4-11.0 3-Jpn-435640:36 CKMB Comments: Serial Specimen #1, #2 or #3? 1'TROP' Serial specimen #1, #2, #3, or #4: 1 CPKMB 1.6 ng/mL (Normal) Range: 0.0-5.0 Comments: CK-MB and RI Interpretation MB Relative IndexNon-AMI <or= 5 NAIndeterminate > 5 <or= 4AMI > 5 > 4 CPK 167 U/L (Normal) Range: 39-308 3-Clu-830584:36 TROP < 0.02 ng/mL (Normal) Comments: Serial Specimen #1, #2 or #3? 1'TROP' Serial specimen #1, #2, #3, or #4: 1 Comments: TROPONIN-I EXPECTED VALUES <0.05 NEGATIVE0.06 - 0.59 AT RISK OF PA> OR = 0.60 SUGGEST PA :47 HgA1C , Office (32766) HgA1C , Office 6.3 % (Normal) Range: [...] CHOL 147 mg/dL (Normal) Comments: <200 mg/dL Fkfaaphlf254-520 mg/dL Borderline>240 mg/dL High Risk :55 Rapid Flu (24594 x 2) Comments: neg Influenza A Ag negative (Normal) 7-Qwj-206268:02 FECAL OCCULT- Tubes sent home (70463) FECAL OCCULT HGB ASSAY, QUAL, 1-3 negative (Normal) [facility] :39 B12 510 pg/mL (Normal) Range: 211-911 [...] (Normal) Range: 0-100 Comments: Performed at: [facility] Lab[address] Director: Melquiades Hector MD, Phone: [phone] IMM 55 mg/dL (Normal) Range: 40-230 DEBBY 182 mg/dL (Normal) Range: 91-414 IMG 788 mg/dL (Normal) Range: 700-1600 :39 LDH 190 U/L (Normal) Comments: Serial Specimen #1, #2 or #3? 1Is Patient Taking Vitamins or Folic Acid Supplements? N Range: 84-246 :39 PROEL Comments: Is Patient Fasting? Y [id number] Comment (Normal) Comments: Protein electrophoresis scan will follow via computer,mail, or mica layer delivery. tPROELAG 1.6 (Normal) Range: 0.7-2.0 tPROELIN [...] Supplements? N Range: 250-450 :56 CULTURE, SPUTUM (18254) Comments: PATIENT NOT FASTINGPERFORMED BY: [facility] Jisjcy8897 [facility] [id number] Information: SRC:[facility] [id number] Result 1 RRF (Normal) Comments: Routine respiratory ashkan Lower Respiratory Culture Final report (Normal) :32 HgA1C , Office (18626) HgA1C , Office 5.9 % (Normal) Range: 4.6 - 7.1 :32 Blood Glucose , Office (09862) Blood Glucose , Office 90 (Normal) :51 [...] 4.6-6.2 WBC 7.2 {k/mm3} (Normal) Range: 4.4-11.0 76-Obs-154333:51 CMP GAP 9 (Normal) Range: 5-15 CO2 [...] CHOL 149 mg/dL (Normal) Comments: <200 mg/dL Mqzrpnuiu294-456 mg/dL Borderline>240 mg/dL High Risk :51 PSA 0.51 ng/mL (Normal) Range: 0.00-4.00 Comments: This test was performed using the TPSA assay method for the[employer] chemistry system. Values obtained with differentassay methods cannot be used interchangably.When changing PSA assays in the course of monitoring apatient, additional sequential testing should be carriedout to confirm baseline values. 15-Edy-205441:59 MISC (Normal) Comments: TEST RESULT LIMITSAntinuclear Antibodies, [...] 4.6-6.2 WBC 7.8 {k/mm3} (Normal) Range: 4.4-11.0 37-Cwm-465044:32 CMP GAP 10 (Normal) Range: 5-15 CO2 [...] CHOL 154 mg/dL (Normal) Comments: <200 mg/dL Nqggvyann792-025 mg/dL Borderline>240 mg/dL High Risk HDL 64 [...] TSH 1.77 {uIU/mL} (Normal) Range: 0.358-3.74 :32 [facility] 0 SEEN {/hpf} (Normal) UBAC [...] (Normal) UCLAR Clear (Normal) UCOL Yellow (Normal) 32-Guw-665265:11 AFBCS tAFBC See Note Comments: TESTING PERFORMED AT [facility]. ORIGINAL REPORT ONFILE IN LAB CONTAINS ADDITIONAL TEST SITE INFORMATION. (Normal) CULTURE, ACID FAST FINAL CULTURE REPORT TO FOLLOW IN 6 WEEKS. tAFBSF See Note Comments: TESTING PERFORMED AT [facility]. ORIGINAL REPORT ONFILE IN LAB CONTAINS ADDITIONAL TEST SITE INFORMATION. (Normal) ACID FAST BACILLUS SMEARAcid Fast Smear from Concentrated Specimen :Negative 30-Hvw-963522:11 CUFST FUNST See Note Comments: TESTING PERFORMED AT [facility]. ORIGINAL REPORT ONFILE IN LAB CONTAINS ADDITIONAL TEST SITE INFORMATION. (Normal) FUNGUS STAIN No yeast or mold observed. CUF See Note Comments: TESTING PERFORMED AT [facility]. ORIGINAL REPORT ONFILE IN LAB CONTAINS ADDITIONAL TEST SITE INFORMATION. (Normal) CULTURE, FUNGUSNO YEAST OR MOLD ISOLATED AFTER 4 WEEKS. 65-Yoh-426140:11 CUSP RESPC See Note (Normal) Comments: No [...] BACILLUS SMEARNO ACID-FAST BACILLI OBSERVED ON SMEAR. 49-Atb-924156:23 CUFST FUNST See Note Comments: TESTING PERFORMED AT [facility]. ORIGINAL REPORT ONFILE IN LAB CONTAINS ADDITIONAL TEST SITE INFORMATION. (Normal) FUNGUS STAIN No yeast or mold observed. CUF See Note Comments: TESTING PERFORMED AT [facility]. ORIGINAL REPORT ONFILE IN LAB CONTAINS ADDITIONAL TEST SITE INFORMATION. (Normal) CULTURE, FUNGUSNO YEAST OR MOLD ISOLATED AFTER 4 WEEKS. 08-Fnp-266866:21 AFBCS tAFBC See Note Comments: TESTING PERFORMED AT [facility]. ORIGINAL REPORT ONFILE IN LAB CONTAINS ADDITIONAL TEST SITE INFORMATION. (Normal) CULTURE, ACID FAST FINAL CULTURE REPORT TO FOLLOW IN 6 WEEKS. Tirso See Note Comments: TESTING PERFORMED AT [facility]. ORIGINAL REPORT ONFILE IN LAB CONTAINS ADDITIONAL TEST SITE INFORMATION. (Normal) ACID FAST BACILLUS SMEARAcid Fast Smear from Concentrated Specimen :Negative 03-Zdz-897439:21 CUFST FUNST See Note Comments: TESTING PERFORMED AT [facility]. ORIGINAL REPORT ONFILE IN LAB CONTAINS ADDITIONAL TEST SITE INFORMATION. (Normal) FUNGUS STAIN YEAST OBSERVED CUF See Note Comments: [facility] ORIGINAL REPORT ONFILE IN LAB CONTAINS ADDITIONAL TEST SITE INFORMATION. (Normal) CULTURE, FUNGUSNO YEAST OR MOLD ISOLATED AFTER 4 WEEKS. 16 AFBSTN SEE Comments: Specimen submitted to Anatomical Pathology Department [facility]. - PATHOLOGY ay REPORT -2 (Normal) 32 2: 00 16 AFBSTN SEE Comments: PATIENT BROUGHT SPECIMEN IN ON 07/11/12. - PATHOLOGY Comments: Specimen submitted to Anatomical Pathology Department fortesting. ay REPORT -2 (Normal) 30 :0 0 12 AFBSTN SEE Comments: PATIENT BROUGHT SPECIMEN IN ON 07/11/12 - PATHOLOGY Comments: Specimen submitted to Anatomical Pathology Department [facility]. ay REPORT -2 (Normal) 39 :0 0 79-Fuz-603809:05 WARREN CULTURE-OTHER (59888) Comments: PATIENT NOT FASTINGPERFORMED BY: [facility] Dadurg9706 [facility] [id number] Information: SRC: THROAT Result 1 RRF (Normal) Comments: Routine respiratory ashkan Upper Respiratory Culture Final report (Normal) 21-Kat-172902:23 Rapid Strep Test, Office (03516) Rapid Strep Test, Office Negative (Normal) 0-Qhm-454508:15 CBCMD RBCM NORM C+C {NORMAL} (Normal) PE [...] 4.6-6.2 WBC 8.3 K/mm3 (Normal) Range: 4.4-11.0 2-Lch-126898:15 CMP GAP 10 (Normal) Range: 5-15 CO2 [...] 7-18 GLU 81 mg/dL (Normal) Range: 70-110 1-Nxz-569687:15 LIPID VLDL 12 mg/dL (Normal) Range: 5-40 [...] Alvarado M.D.January 27, 2012 at 2:39:03 PM [id number] Signed GP/GP If you are the refe rring physician and would like to consult with theradiologist who provided this interpretation, please contact Itzel Linares at [phone]. If this radiologist is unavailable, youwill be dir ected to another radiologist to assist. If you are a patient with a question regarding this report, pleasecontactyour referring physician directly. Professional Interpretation Provided By: Mobile [employer], Phone , These documents contain legally protected [...] Schwarz D.O.January 26, 2012 at 8:55:02 PM [id number] Signed BE/B E If you are the referring physician and would like to consult with theradiologist who provided this interpretation, please contact Yogi Schwarz D.O. at [phone]. If this radiologist is unavailable, yo u will bedirected to another radiologist to assist. If you are a patient with a question regarding this report, pleasecontactyour referring physician directly. Professional Interpretation Provided By: [employer], Phone , These documents contain legally protected [...] 01/26/12 2100 Sign by: Yogi Schwarz MD 18-Sjl-227755:13 CUSP RESPC See Note (Normal) Comments: No [...] GRAM POSITIVE COCCI IN CHAINS AND CLUSTERS 09-Fdu-115943:56 HgA1C , Office (77926) HgA1C , Office 6.1 % (Normal) Range: 4.6 - 7.1 83-Izj-004765:56 Blood Glucose , Office (42615) Blood Glucose , Office 116 (Normal) : [...] :01 TSH 1.98 {uIU/mL} (Normal) Range: 0.358-3.74 67-Xwx-730045:25 CMP GAP 7 (Normal) Range: 5-15 CO2 [...] performed using the TPSA assay method for the[employer] chemistry system. Values obtained with differentassay methods cannot be used interchangably.When ch anging PSA assays in the course of monitoring apatient, additional sequential testing should be carriedout to confirm baseline values. :25 [facility] 0 SEEN {/hpf} (Normal) UBAC [...] UCOL YELLOW (Normal) :44 HgA1C , Office (66249) HgA1C , Office 6.3 % (Normal) Range: 4.6 - 7.1 :44 Blood Glucose , Office (24951) Blood Glucose , Office 114 (Normal) :13 HgA1C , Office (15272) HgA1C , Office 6.2 % (Normal) Range: 4.6 - 7.1 :13 Blood Glucose , Office (39832) Blood Glucose , Office 100 (Normal) :55 HgA1C , Office (68326) HgA1C , Office 5.8 % (Normal) Range: 4.6 - 7.1 :55 Blood Glucose , Office (29932) Blood Glucose , Office 85 (Normal) :51 WARREN CULTURE-OTHER (64317) Comments: PATIENT NOT FASTINGPERFORMED BY: [facility] HospitalUdrytj7049 [facility] [id number] Information: SRC:THRT [id number] Result 1 Yeast isolated. (Normal) Comments: Heavy growthRequest for further identification must be madewithin 1 week. Upper Respiratory Culture Final report (Normal) :14 Rapid Strep Test, Office (48420) Rapid Strep Test, Office Negative (Normal) :24 [...] serialsampling is recomme nded. TESTING PERFORMED AT [facility]. ORIGINAL REPORT ON FILE IN LAB CONTAINS [...] for the productionof interferon gamma.Performed at: [facility] Lab[address] [id number] Director: Joseph Velez MD, Phone: [phone] QFT AG - NIL 0 {IU/mL} (Normal) [...] >240 mg/dL High Risk :03 VIT D,25 04264 38.0 ng/mL (Normal) Comments: appt 03-08-10 Range: 32.0-100.0 Comments: Effective January 11, 2011 Vitamin D, 25-Hydroxy reference intervals will be changing to 30-100. .Recent studies consider the lower li chilo of 32.0 ng/mL to be athreshold for optimal health.Mark LUDWIG. J Nutr. 2004;135(2):317-22.Performed at: [facility] Lab[address] Director: Lakshmi Pino MD, Phone: [phone] VITAMIN B12 696 pg/mL (Normal) Range: 254-1320 Comments: There is a low frequency possibility that high titers ofintrinsic blocking antibodies may not be completely inactivated during the reaction pretreatment stepof this testing method. If test results are i n conflictwith the clinical diagnosis, patient should be testedfor the presence of intrinsic factor blocking antibodies. 88-Grt-748809:05 Rapid Strep Test, Office (23876) Rapid Strep Test, Office Negative (Normal) :00 CULTURE, THROAT See Note (Normal) Comments: Normal throat ashkan isolated. No beta-hemolyticstreptococcus isolated. 39-Avk-92556:00 CHEST WITHOUT CONTRAST Radiology Report See Note [...] 10/11/10 0244 Sign by: Clarke Butt MD 92-Trt-598488:58 GALLBLADDER Radiology Report See Note (Normal) Comments: [...] 10/08/10 1402 Sign by: Jake Alvarado MD 61-Zrt-44148:00 CULTURE, URINE URINE CULTURE See Note {CFU/mL} (Normal) Comments: COLONY COUNT <1000 ORGANISM 1: MIXED GRAM POSITIVE ORGANISMS 65-Zix-734418:19 Urinalysis, Office (29413) UA - BILIRUBIN Negative (Normal) UA - BLOOD Non Hemolyzed Trace (Normal) UA - GLUCOSE Negative (Normal) UA - KETONES Negative mg/dL (Normal) UA - LEUKOCYTE ESTERASE Negative (Normal) UA - NITRITE Negative (Normal) UA - PH 7.0 (Normal) UA - PROTEIN Negative mg/dL (Normal) UA - SPECIFIC GRAVITY 1.010 (Normal) URINE UROBILINGN MASSIEL TIMED Normal mg/dL (Normal) 26-Vqs-60885:00 ABDOMEN/PELVIS WITHOUT CONT Radiology Report See Note [...] on 09/16/101715 Sign by: Cosmo Mahmood MD 50-Fyu-467288:11 HgA1C , Office (35397) HgA1C , Office 6.2 % (Normal) Range: 4.6 - 7.1 :11 Blood Glucose , Office (62837) Blood Glucose , Office 90 (Normal) :28 [...] mg/dL High Risk :53 HgA1C , Office (02408) HgA1C , Office 6.4 % (Normal) Range: 4.6 - 7.1 :53 Blood Glucose , Office (95841) Blood Glucose , Office 108 (Normal) :39 CULTURE, URINE URINE CULTURE Culture exhibits no growth. (Normal) :54 Urinalysis, Office (08386) UA - BILIRUBIN Negative (Normal) UA - BLOOD Negative (Normal) UA - GLUCOSE Negative (Normal) UA - KETONES Negative mg/dL (Normal) UA - LEUKOCYTE ESTERASE Negative (Normal) UA - NITRITE Negative (Normal) UA - PH 7.0 (Normal) UA - PROTEIN Negative mg/dL (Normal) UA - SPECIFIC GRAVITY 1.010 (Normal) URINE UROBILINGN MASSIEL TIMED Normal mg/dL (Normal) :37 HgA1C , Office (65983) HgA1C , Office 6.1 % (Normal) Range: 4.6 - 7.1 :37 Blood Glucose , Office (71158) Blood Glucose , Office 96 (Normal) :46 [...] 4.6-6.2 WBC 7.5 K/mm3 (Normal) Range: 4.4-11.0 80-Rem-156779:46 COMP METABOLIC GAP 7 (Normal) Range: 5-15 [...] (Normal) Range: 0.0-4.0 :22 HgA1C , Office (56212) HgA1C , Office 6.1 % (Normal) Range: 4.6 - 7.1 :22 Blood Glucose , Office (34367) Blood Glucose , Office 123 (Normal) :47 HgA1C , Office (04483) HgA1C , Office 6.3 % (Normal) Range: 4.6 - 7.1 :47 Blood Glucose , Office (52082) Blood Glucose , Office 103 (Normal) :05 [...] (Normal) GLU 107 mg/dL (Normal) Range: 70-110 55-Tin-37946:05 LIPID HDL 58 mg/dL (Normal) Comments: Reference RangeHDL <40 mg/dL Low HDL CholesterolHDL >or= 60 mg/dL High HDL Cholesterol LDL 77 mg/dL (Normal) Range: 0-130 VLDL 7 mg/dL (Normal) Range: 5-40 CHOL 142 mg/dL (Normal) Comments: <200 mg/dL Chuhrwumu076-883 mg/dL Borderline>240 mg/dL High Risk TRIG 35 mg/dL (Normal) Comments: Serum Triglycerides Reference IntervalNormal <150 mg/dLBorderline high 150 - 199 mg/dLHigh 200 - 499 mg/ dLVery High > or = 500 mg/dL 4-Pff-054630:24 HgA1C , Office (76012) HgA1C , Office 6.2 % (Normal) Range: 4.6 - 7.1 8-Mdc-767326:23 Blood Glucose , Office (25587) Blood Glucose , Office 96 (Normal) 20-Cmg-926740:07 GASTRIC EMPTYING STUDY Radiology Report See Note (Normal) Comments: Exam Number: [id number] GASTRIC EMPTYING STUDY A gastric emptying study was performed. The patient ingested 1 mCi ndPz21l Sulfur colloid with oatmeal. HISTORYThis is a 58-year-old male patie nt with hist ory of bloating andgastroesophageal reflux. FINDINGSAt 1 hour, there is complete emptying of the stomach of [employer]. This is a normal study. IMPRESSIONNormal examination. There is no e vidence of gastric retention. Reported By: WILFREDO ALVARADO 3-Eyv-903159:33 HgA1C , Office (11854) HgA1C , Office 5.9 % (Normal) Range: 4.6 - 7.1 :33 Blood Glucose , Office (51992) Blood Glucose , Office 111 (Normal) :08 [...] Range: 0.0-4.0 :46 Blood Glucose , Office (41047) Blood Glucose , Office 156 (Normal) :46 HgA1C , Office (99022) HgA1C , Office 5.8 % (Normal) Range: 4.6 - 7.1 :12 HgA1C , Office (28938) Comments: done HgA1C , Office 5.8 % (Normal) Range: 4.6 - 7.1 :12 Blood Glucose , Office (75851) Comments: done Blood Glucose , Office 99 [...] mg/dL (Normal) Range: 200-370 Comments: Performed At: [address] [id number] Blood Glucose , Office (97134) Blood Glucose , Office 92 (Normal) :44 HgA1C , Office (88400) HgA1C , Office 5.7 % (Normal) Range: 4.6 - 7.1 :40 GLU GTT-2 HOUR 191 mg/dL (Abnormal) Comments: 2HR GTT GLU 2 HR GLU GTT-2 HOUR from 216:[id number]. Range: 70-120 :20 GLU GTT-1 HOUR 178 mg/dL (Abnormal) Comments: 2HR GTT GLU 1 HR GLU GTT-1 HOUR from 216:Z90229Q. Range: 120-170 :40 GLU GTT-30 min. 183 mg/dL (Abnormal) Comments: 2HR GTT GLU 1/2 HR GLU GTT-30 min. from 216:[id number]. Range: 110-170 :01 GLU GTT-FASTING 106 mg/dL (Normal) Comments: 2HR GTT FASTING GLU GTT-FASTING from 216:[id number]. Range: 70-110 Comments: GLUCOSE TOLERANCE TEST Reference [...] was performed using the TPSA method for the[employer] chemistry system.Values obtained with different assay methods [...] :12 TSH 1.38 {uIU/mL} (Normal) Range: 0.34-4.82 73-Xhe-82997:03 CHEST WITH CONTRAST Radiology Report See Note (Normal) Comments: Exam Number: [id number] CHEST CT WITH INTRAVENOUS CONTRAST. REASON FOR [...] No growth in 5 6:14 days. (Normal) 4-Fxs-300554:14 CBCD,SMEAR DIFF BAND 1 % (Normal) Range: [...] 47-70 WBC 5.6 K/mm3 (Normal) Range: 4.4-11.0 2-Gfe-995262:14 COMP METABOLIC A/G 1.2 {RATIO} (Normal) Range: [...] T PROT 6.3 g/dL (Abnormal) Range: 6.4-8.2 78-Fnh-298999:19 EBVIgG/M 329991 EB-EA IgG 65289 79 AU/mL (Normal) Range: 0-99 Comments: Negative <100 Equivocal 100 - 120 Positive >120 EB-NAg [id number] 656 AU/mL (Abnormal) Range: 0-99 Comments: Negative <100 Equivocal 100 - 120 Positive >120 EB-VCA [id number] 2296 AU/mL (Abnormal) Range: 0-99 Comments: Negative <100 Equivocal 100 - 120 Positive >120 EB-VCA AcX25635 9 AU/mL (Normal) Range: 0-99 Comments: Negative [...] Antibody Present - Antibody AbsentPerformed At: [facility] [place], [place] [id number] 32-Kwl-085664:00 CULTURE, THROAT See Note (Normal) Comments: Normal throat ashkan isolated. No beta-hemolyticstreptococcus isolated. 14-Fpn-241844:35 Rapid Strep Test, Office (21242) Rapid Strep Test, Office Negative (Normal) :40 [...] 11/09/06 TC:5 REPORT SIGNED: JOSE MIGUEL SONSHI 11/10/0607-Nov-200621-Ieh-371141:55 ALDOLASE 2030 2.3 U/L (Normal) Range: 1.2-7.6 Comments: Performed At: [facility] [place], [place] [id number] At: [facility] [id number] 38-Ekk-159264:55 JOHN-D 024625 JOHN-DIRECT 9 U/mL (Normal) Range: 0-99 Comments: [...] 4.9 {IU/mL} (Normal) Range: 0.0-13.9 :55 TESTOST [id number] TESTOSTER %FREE 2.87 % (Normal) Range: 1.50-4.20 [...] Report See Note (Normal) Comments: Exam Number: [id number] TESTICULAR ULTRASOUND HISTORYTesticular swelling. High resolution real [...] Reported By: MAYELIN DE LA FUENTE M.D. 6-Oye-778989:45 HIP, MIN 2 VIEWS Radiology Report See Note (Normal) Comments: Exam Number: [id number] FIVE VIEW LUMBAR SPINE AP, LATERAL, BOTH [...] Report See Note (Normal) Comments: Exam Number: [id number] FIVE VIEW LUMBAR SPINE AP, LATERAL, BOTH [...] degenerative changes. Reported By: REMIGIO PURCELL M.D. 1-Etp-604218:44 HIP, MIN 2 VIEWS Radiology Report See Note (Normal) Comments: Exam Number: [id number] FIVE VIEW LUMBAR SPINE AP, LATERAL, BOTH [...] degenerative changes. Reported By: REMIGIO PURCELL M.D. 88-Ccw-146368:43 CHEST, PA AND LATERAL Radiology Report See Note (Normal) Comments: Exam Number: [id number] PA AND LATERAL CHEST HISTORYShortness of breath. [...] 15, 2005. Reported By: EDVIN MARIE M.D. 62-Fsz-262516:25 ALDOLASE 2030 3.0 U/L (Normal) Range: 1.2-7.6 Comments: Performed At: [address] [id number] 14-Nhc-683048:25 JOHN-D [id number] JOHN-DIRECT 46 U/mL (Normal) Range: 0-99 Comments: Negative <100 Equivocal 100 - 120 Positive >120 14-Gtg-894748:25 C-REACTIVE PROT 1.07 mg/L (Normal) Range: 0.0-6.0 Comments: Test performed using the Dimension C-Reactive ProteinExtended Range assay method. This assay meets the AHA/CDC 2003 recommendations fordetermining patients at high risk for cardiovasculardisease. Reference: High risk CRP >3.0 mg/L 88-Loi-058499:25 CBCD BASO% 0.4 % (Normal) Range: 0-1 [...] CPK TOTAL 172 U/L (Normal) Range: 35-232 62-Koh-951854:25 ESR SED RATE 13 mm/h (Normal) Range: 0-20 45-Iod-989050:25 RA LATEX 6502 5.2 {IU/mL} (Normal) Range: [...] morphology Planned Observations CBC W/AUTO DIFF WBC (09619)Indication: Hypertension, benign On: 57-Joo-86252:51 Request METABOLIC PANEL, COMPREHENSIVE (01675)Indication: Hypertension, benign On: 06-Wvr-80589:51 Request LIPID PANEL (60386)Indication: Other hyperlipidemia On: :50 Request CULTURE,FUNGUS W/STAIN 535600 (80543)Indication: Bronchiectasis On: :59 Request CULTURE, SPUTUM (03728)Indication: Moderate persistent asthma without complication On: :21 Request HGB A1C (79188)Indication: Abnormal glucose tolerance test On: :10 Request CBC with auto diff (51364)Indication: Abnormal glucose tolerance test On: :10 Request METABOLIC PANEL, COMPREHENSIVE (42631)Indication: Abnormal glucose tolerance test On: : Request LIPID PANEL (51857)Indication: Other hyperlipidemia On: :10 Request PSA (PROSTATE SPECIFIC ANTIGEN) (V76.44)Indication: Encounter for screening for malignant neoplasm of prostate (Renamed from Screening for prostate cancer) On: :09 Request METABOLIC PANEL, COMPREHENSIVE (03473)Indication: Essential hypertension On: 7-Sud-308861:58 Request CBC with auto diff (04297)Indication: Hypertension, benign On: :53 Request METABOLIC PANEL, COMPREHENSIVE (27003)Indication: Abnormal glucose tolerance test On: :52 Request MICROALBUMIN: CREATININE RATIO (78112) AND (22296)Indication: Abnormal glucose tolerance test On: :52 Request HGB A1C (73926)Indication: Abnormal glucose tolerance test On: :52 Request LIPID PANEL (21849)Indication: Other hyperlipidemia On: :52 Request LIPID PANEL (94035)Indication: Other hyperlipidemia On: 0-Vdl-928616:30 Request CBC W/AUTO DIFF WBC (42229)Indication: Hypertension, benign On: :29 Request METABOLIC PANEL, COMPREHENSIVE (43572)Indication: Hypertension, benign On: 7-Zgi-940845:29 Request IMMUNOGLOBULIN G (IgG) (05141)Indication: Abnormal blood chemistry On: 92-Wun-855810:02 Request Comments: PLEASE DRAW WITH OTHER LABS IN 2016 serum free light chains (48395)Indication: Abnormal blood chemistry On: 40 Request serum immunofixation (27992)Indication: Abnormal blood chemistry On: 40 Request PSA (PROSTATE SPECIFIC ANTIGEN) (V76.44)Indication: Encounter for screening for malignant neoplasm of prostate (Renamed from Screening for prostate cancer) On: 40 Request LIPID PANEL (79778)Indication: Other hyperlipidemia On: Request CBC with auto diff (42683)Indication: Abnormal glucose tolerance test On: :39 Request METABOLIC PANEL, COMPREHENSIVE (10292)Indication: Abnormal glucose tolerance test On: 39 Request MICROALBUMIN: CREATININE RATIO (72822) AND (46081)Indication: Abnormal glucose tolerance test On: 39 Request HGB A1C (26799)Indication: Abnormal glucose tolerance test On: 39 Request LIPID PANEL (98486)Indication: Other hyperlipidemia On: :58 Request urine immunofixation (68722)Indication: Abnormal blood chemistry On: :34 Request serum immunofixation (03642)Indication: Abnormal blood chemistry On: :34 Request MICROALBUMIN: CREATININE RATIO (22302) AND (23588)Indication: Abnormal glucose tolerance test On: :32 Request HGB A1C (51048)Indication: Abnormal glucose tolerance test On: :32 Request CBC W/AUTO DIFF WBC (48146)Indication: Hypertension, benign On: :30 Request METABOLIC PANEL, COMPREHENSIVE (56133)Indication: Hypertension, benign On: :30 Request LIPID PANEL (52037)Indication: Other hyperlipidemia On: :30 Request LIPOPROTEIN, BLD, BY NMR (26322)Indication: Other hyperlipidemia On: 07-Plc-805886:14 Request CBC WITH MANUAL DIFF (47006)Indication: Essential hypertension On: 60-Duc-218397:14 Request Metabolic Panel, Comprehensive (68418)Indication: Essential hypertension On: 13-Mrl-959101:14 Request CBC W/AUTO DIFF WBC (39500)Indication: Abnormal glucose tolerance test On: : Request LIPOPROTEIN, BLD, BY NMR (34231)Indication: Other hyperlipidemia On: : Request METABOLIC PANEL, COMPREHENSIVE (55793)Indication: Abnormal glucose tolerance test On: : Request Anti-TPO Antibody (86991)Indication: Abnormal blood chemistry On: Request T4, FREE (THYROXINE) (06499)Indication: Abnormal blood chemistry On: Request T3, FREE (TRIDOTHYRONINE) (96109)Indication: Abnormal blood chemistry On: Request TSH (51198)Indication: Abnormal blood chemistry On: : Request P-ANCA & C-ANCA (ANCA PROFILE) 75105 x2 and 93061 w8Vccjyanjil: Acute recurrent maxillary sinusitis On: Request JOHN (ANTINUCLEAR ANTIBODY) (59851)Indication: Abnormal blood chemistry On: : Request RHEUMATOID FACTOR-QUANT (71475)Indication: Abnormal blood chemistry On: : Request SED RATE ERYTHROCYTE (38474)Indication: Abnormal blood chemistry On: Request C-REACTIVE PROTEIN (71833)Indication: Abnormal blood chemistry On: :56 Request CBC with auto diff (59993)Indication: Hypertension, benign On: : Request MICROALBUMIN: CREATININE RATIO (61102) AND (04330)Indication: Abnormal glucose tolerance test On: : Request METABOLIC PANEL, COMPREHENSIVE (12734)Indication: Abnormal glucose tolerance test On: : Request HGB A1C (39394)Indication: Abnormal glucose tolerance test On: : Request METABOLIC PANEL, COMPREHENSIVE (06395)Indication: Hypertension, benign On: : Request LIPID PANEL (19422)Indication: Other hyperlipidemia On: : Request PSA (PROSTATE SPECIFIC ANTIGEN) (V76.44)Indication: Encounter for screening for malignant neoplasm of prostate (Renamed from Screening for prostate cancer) On: 71-Ncp-530408:59 Request Factor 2 (Prothrombin) Gene Mutation (91033)Indication: Other symptoms involving cardiovascular system On: 5-Oyt-200033:13 Request MICROALBUMIN: CREATININE RATIO (53341) AND (85928)Indication: Abnormal glucose tolerance test On: :53 Request HGB A1C (34145)Indication: Abnormal glucose tolerance test On: :53 Request LIPID PANEL (78291)Indication: Other hyperlipidemia On: :53 Request CBC W/AUTO DIFF WBC (53967)Indication: Hypertension, benign On: :53 Request METABOLIC PANEL, COMPREHENSIVE (02288)Indication: Hypertension, benign On: :53 Request CBC with auto diff (08263)Indication: Hypertension, benign On: 7-Wnz-376723: Request METABOLIC PANEL, COMPREHENSIVE (08329)Indication: Hypertension, benign On: :25 Request LIPID PANEL (11503)Indication: Other hyperlipidemia On: 0-Fzc-118217:25 Request Factor V Leiden (60985)Indication: Deep vein thrombosis of lower extremity On: 38-Opl-878644:24 Request CLOTTING FACTOR II (49862)Indication: Deep vein thrombosis of lower extremity On: 14-Eia-267890:24 Request ANTITHROMBIN III ACTIVTY (97459)Indication: Deep vein thrombosis of lower extremity On: 86-Txy-654500:24 Request Antiphospholipid atb (46381)Indication: Deep vein thrombosis of lower extremity On: 25-Cef-009003:24 Request Protein C Profile (32218)Indication: Deep vein thrombosis of lower extremity On: 72-Vtn-255805:24 Request Protein S Profile (71910)Indication: Deep vein thrombosis of lower extremity On: 48-Uhy-745547:24 Request Hemoglobin Glyclated (HGB A1C) (98101)Indication: Abnormal glucose tolerance test On: 69-Nyp-588277:23 Request CBC W/AUTO DIFF WBC (09235)Indication: Abnormal glucose tolerance test On: 8-Fwy-903662:43 Request MICROALBUMIN: CREATININE RATIO (74211) AND (37277)Indication: Abnormal glucose tolerance test On: :43 Request METABOLIC PANEL, COMPREHENSIVE (51764)Indication: Abnormal glucose tolerance test On: :43 Request LIPID PANEL (37534)Indication: Other hyperlipidemia On: 43 Request DNA ANTIBODY-NATV/DBL ST (45646)Indication: Heart disease, unspecified On: 90-Ebd-574659:02 Request METABOLIC PANEL, COMPREHENSIVE (76082)Indication: Essential hypertension On: : Request LIPID PANEL (80492)Indication: Other hyperlipidemia On: :31 Request Hemoglobin Glyclated (HGB A1C) (09113)Indication: Abnormal glucose tolerance test On: :31 Request PSA (PROSTATE SPECIFIC ANTIGEN) (V76.44)Indication: Benign prostatic hyperplasia with lower urinary tract symptoms, unspecified morphology On: 64-Fzm-745234:52 Request MICROALBUMIN: CREATININE RATIO (99914) AND (10464)Indication: Abnormal glucose tolerance test On: :50 Request Hemoglobin Glyclated (HGB A1C) (10469)Indication: Abnormal glucose tolerance test On: :50 Request URINE WARREN CULTURE (MASSIEL COL COUNT) (03212)Indication: Muscle weakness On: :48 Request URINALYSIS, W/ MICRO (23637)Indication: Muscle weakness On: :48 Request CBC with auto diff (38094)Indication: Muscle weakness On: :48 Request JOHN (ANTINUCLEAR ANTIBODY) (35419)Indication: Muscle weakness On: :48 Request SED RATE ERYTHROCYTE (83934)Indication: Muscle weakness On: :48 Request C-REACTIVE PROTEIN (75726)Indication: Muscle weakness On: :48 Request TSH (20605)Indication: Muscle weakness On: :48 Request LIPID PANEL (22200)Indication: Other hyperlipidemia On: :47 Request METABOLIC PANEL, COMPREHENSIVE (39109)Indication: Other hyperlipidemia On: 35-Kun-417297:46 Request URINE WARREN CULTURE-MASSIEL COL COUNT (31615)Indication: Other abnormal finding of urine On: 7-Gmy-524577:42 Request LIPID PANEL (07522)Indication: Other hyperlipidemia On: :44 Request CBC W/AUTO DIFF WBC (50607)Indication: Essential hypertension On: :44 Request METABOLIC PANEL, COMPREHENSIVE (86454)Indication: Essential hypertension On: :44 Request URINE WARREN CULTURE-MASSIEL COL COUNT (94834)Indication: Other abnormal finding of urine On: :00 Request Comments: ADD ON MICROALBUMIN: CREATININE RATIO (74282) AND (82240)Indication: Essential hypertension On: : Request URINALYSIS, W/ MICRO (47162)Indication: Essential hypertension On: : Request METABOLIC PANEL, COMPREHENSIVE (09265)Indication: Essential hypertension On: : Request LIPID PANEL (96000)Indication: Other hyperlipidemia On: : Request CBC WITH MANUAL DIFF (21428)Indication: Iron deficiency On: : Request URINE WARREN CULTURE (MASSIEL COL COUNT) (08724)Indication: Fatigue On: :46 Request MICROALBUMIN: CREATININE RATIO (06599) AND (35908)Indication: Abnormal glucose tolerance test On: :46 Request Hemoglobin Glyclated (HGB A1C) (96862)Indication: Abnormal glucose tolerance test On: :46 Request IRON BINDING CAPACITY (TIBC) (81929)Indication: Anemia, unspecified On: :42 Request FERRITIN (76901)Indication: Anemia, unspecified On: :42 Request IRON (15427)Indication: Anemia, unspecified On: :42 Request VITAMIN B-12 (CYANOCOBALAMIN) (00619)Indication: Fatigue On: :42 Request CBC (AUTO) (58596)Indication: Fatigue On: :42 Request TSH (70077)Indication: Fatigue On: :42 Request Vitamin D Hydroxy (78976)Indication: Fatigue On: :42 Request EBV Panel (46546)Indication: Fatigue On: :42 Request FERRITIN (58755)Indication: Anemia, unspecified On: Request IRON (32897)Indication: Anemia, unspecified On: Request MICROALBUMIN: CREATININE RATIO (27450) AND (82543)Indication: Abnormal glucose tolerance test On: Request METABOLIC PANEL, COMPREHENSIVE (96061)Indication: Abnormal glucose tolerance test On: Request LIPID PANEL (90495)Indication: Other hyperlipidemia On: Request CBC WITH MANUAL DIFF (13169)Indication: Anemia, unspecified On: Request FERRITIN (06531)Indication: Anemia, unspecified On: :15 Request IRON (35564)Indication: Anemia, unspecified On: : Request LIPID PANEL (70247)Indication: Essential hypertension On: Request METABOLIC PANEL, COMPREHENSIVE (33210)Indication: Essential hypertension On: : Request CBC WITH MANUAL DIFF (29966)Indication: Essential hypertension On: :14 Request UPEP (42144)Indication: BRONCHITIS, NOT SPECIFIED ACUTE OR CHRONIC (490.) On: Request Protein Electrophoresis, Serum (SPEP) (48796)Indication: BRONCHITIS, NOT SPECIFIED ACUTE OR CHRONIC (490.) On: Request IGA/IGD/IGG/IGM-EACH (74769)Indication: BRONCHITIS, NOT SPECIFIED ACUTE OR CHRONIC (490.) On: Request URINALYSIS, W/ MICRO (52419)Indication: Anemia, unspecified On: Request CBC WITH MANUAL DIFF (86449)Indication: Anemia, unspecified On: Request FOLIC ACID SERUM (88419)Indication: Anemia, unspecified On: Request VITAMIN B-12 (CYANOCOBALAMIN) (38925)Indication: Anemia, unspecified On: Request RETICULOCYTE COUNT MANUL (10391)Indication: Anemia, unspecified On: : Request LDH (LD) (LACTATE DEHYDROGENASE) (90917)Indication: Anemia, unspecified On: Request IRON BINDING CAPACITY (TIBC) (94088)Indication: Anemia, unspecified On: : Request IRON (08516)Indication: Anemia, unspecified On: Request FERRITIN (91888)Indication: Anemia, unspecified On: Request PSA (PROSTATE SPECIFIC ANTIGEN) (V76.44)Indication: Screening for prostate cancer On: :36 Request LIPID PANEL (34835)Indication: Abnormal glucose tolerance test On: :35 Request CBC WITH MANUAL DIFF (28174)Indication: Hypertension, benign On: Request METABOLIC PANEL, COMPREHENSIVE (63564)Indication: Hypertension, benign On: 35 Request SED RATE ERYTHROCYTE (82082)Indication: Rash On: :22 Request C-REACTIVE PROTEIN (94098)Indication: Rash On: :22 Request RHEUMATOID FACTOR-QUANT (26362)Indication: Rash On: : Request JOHN (ANTINUCLEAR ANTIBODY) (93772)Indication: Rash On: :22 Request CULTURE, SPUTUM (79953)Indication: Cough On: 98-Taa-950088:20 Request HgA1C , Office (37278)Indication: Abnormal glucose tolerance test On: 20-Pzd-925678:57 Request CULTURE, SPUTUM (74236)Indication: Cough On: 78-Wry-342608:39 Request ACID FAST STAIN (AFB) (54502)Indication: Cough On: 30-Kyf-311008:38 Request TSH (40136)Indication: Other hyperlipidemia On: :21 Request URINALYSIS, W/ MICRO (27436)Indication: Essential hypertension On: :21 Request CBC WITH MANUAL DIFF (69590)Indication: Abnormal glucose tolerance test On: : Request METABOLIC PANEL, COMPREHENSIVE (47294)Indication: Abnormal glucose tolerance test On: :21 Request MICROALBUMIN: CREATININE RATIO (89279) AND (80791)Indication: Abnormal glucose tolerance test On: 38-Axc-344838:21 Request LIPID PANEL (32338)Indication: Other hyperlipidemia On: 06-Ols-237459:20 Request CBC WITH MANUAL DIFF (94070)Indication: Abnormal glucose tolerance test On: :26 Request METABOLIC PANEL, COMPREHENSIVE (80909)Indication: Abnormal glucose tolerance test On: 35-Kyv-677261:26 Request CULTURE, SPUTUM (14986)Indication: Cough On: 59-Jxz-980070:18 Request LIPID PANEL (56257)Indication: Other hyperlipidemia On: 79-Zpp-962812:14 Request TSH (67053)Indication: Swelling of limb On: 71-Koq-31512:58 Request METABOLIC PANEL, COMPREHENSIVE (39837)Indication: Swelling of limb On: 27-Sok-11689:58 Request CBC WITH MANUAL DIFF (02274)Indication: Swelling of limb On: :58 Request BNTP (98987)Indication: Swelling of limb On: 92-Gqw-19848:58 Request CULTURE, SPUTUM (61288)Indication: Cough On: 24-Ikt-71625:56 Request PSA (PROSTATE SPECIFIC ANTIGEN) (V76.44)Indication: Screening for prostate cancer On: 25-Wvc-388914:19 Request URINALYSIS, W/ MICRO (05721)Indication: Abnormal glucose tolerance test On: 01-Lns-617327:18 Request MICROALBUMIN: CREATININE RATIO (64975) AND (70557)Indication: Abnormal glucose tolerance test On: 92-Jgb-863799:18 Request METABOLIC PANEL, COMPREHENSIVE (65729)Indication: Essential hypertension On: 45-Utp-407610:18 Request LIPID PANEL (97755)Indication: Other hyperlipidemia On: 61-Bwi-436144:18 Request PSA (PROSTATE SPECIFIC ANTIGEN) (V76.44)Indication: Screening for prostate cancer On: 92-Ilo-791964:40 Request MICROALBUMIN: CREATININE RATIO (05036) AND (53121)Indication: Abnormal glucose tolerance test On: 22-Kob-436575:40 Request METABOLIC PANEL, COMPREHENSIVE (84367)Indication: Abnormal glucose tolerance test On: 59-Zfi-343937:40 Request Urine Protein Electrophoresis (UPEP) (77508)Indication: recurrent uri On: :39 Request Serum Protein Electrophoresis (SPEP) (29092)Indication: recurrent uri On: 06-Lli-792187:39 Request IMMUNOGLOBULIN E (IgE) (62826)Indication: Asthma, intrinsic, with status asthmaticus On: 04-Caa-089522:39 Request IGA/IGD/IGG/IGM-EACH (39140)Indication: Asthma, intrinsic, with status asthmaticus On: 57-Lff-644808:39 Request LIPID PANEL (51532)Indication: Other hyperlipidemia On: 99-Rdz-091713:38 Request ASPERGILLUS AG, EIA (46782)Indication: Cough On: :58 Request SED RATE ERYTHROCYTE (55193)Indication: Cough On: 58-Adb-004388:48 Request C-REACTIVE PROTEIN (75887)Indication: Cough On: :48 Request CBC WITH MANUAL DIFF (56609)Indication: Cough On: 45-Aas-505864:47 Request Quantiferron gold test (58257)Indication: Cough On: 86-Pnk-322591:45 Request CULTURE, SPUTUM (90264)Indication: Cough On: 72-Zfu-753340:45 Request VITAMIN B-12 (CYANOCOBALAMIN) (91742)Indication: Fatigue On: :20 Request Vitamin D Hydroxy (42025)Indication: Fatigue On: 57-Jyf-060368:20 Request CBC WITH MANUAL DIFF (00807)Indication: Abnormal glucose tolerance test On: :19 Request METABOLIC PANEL, COMPREHENSIVE (80812)Indication: Abnormal glucose tolerance test On: :19 Request LIPID PANEL (26950)Indication: Other hyperlipidemia On: 34-Uco-664261:19 Request URINALYSIS, W/ MICRO (22063)Indication: Abnormal glucose tolerance test On: :19 Request HEMOGLOBIN GLYCLATED (HGB A1C) (34381)Indication: Abnormal glucose tolerance test On: 79-Vqg-754658:19 Request WARREN CULTURE-OTHER (82932)Indication: Pharyngitis, acute On: 92-Kpi-574694:05 Request URINE WARREN CULTURE-MASSIEL COL COUNT (00376)Indication: Abdominal pain, acute, right lower quadrant On: :19 Request CBC WITH MANUAL DIFF (58905)Indication: Abnormal glucose tolerance test On: :08 Request METABOLIC PANEL, COMPREHENSIVE (25282)Indication: Abnormal glucose tolerance test On: 77-Qda-506453:08 Request TSH (69329)Indication: Fatigue On: 62-Kkk-194263:02 Request CBC WITH MANUAL DIFF (14420)Indication: Abnormal glucose tolerance test On: :45 Request METABOLIC PANEL, COMPREHENSIVE (44133)Indication: Hypertension, benign On: 30-Zbm-712264:45 Request LIPID PANEL (03133)Indication: Other hyperlipidemia On: :45 Request METABOLIC PANEL, COMPREHENSIVE (22261)Indication: Essential hypertension On: :16 Request LIPID PANEL (33490)Indication: Other hyperlipidemia On: 64-Jlc-920031:15 Request URINE WARREN CULTURE-MASSIEL COL COUNT (42165)Indication: Calcium kidney stone On: 66-Zus-228148:54 Request PSA (PROSTATE SPECIFIC ANTIGEN) (V76.44)Indication: Enlarged prostate with lower urinary tract symptoms On: 16-Yyd-929821:09 Request METABOLIC PANEL, COMPREHENSIVE (75863)Indication: Abnormal glucose tolerance test On: 32-Kqi-865291:09 Request CBC WITH MANUAL DIFF (21701)Indication: Abnormal glucose tolerance test On: 08-Ubh-238855:09 Request LIPID PANEL (79691)Indication: Other hyperlipidemia On: 07-Nfp-071025:09 Request MICROALBUMIN: CREATININE RATIO (39660) AND (35267)Indication: Abnormal glucose tolerance test On: 46-Mnv-386391:09 Request LIPID PANEL (78339)Indication: Other hyperlipidemia On: :31 Request CBC WITH MANUAL DIFF (18347)Indication: Abnormal glucose tolerance test On: :31 Request METABOLIC PANEL, COMPREHENSIVE (77271)Indication: Abnormal glucose tolerance test On: :30 Request MICROALBUMIN: CREATININE RATIO (93112) AND (43650)Indication: Abnormal glucose tolerance test On: 45-Zvr-988730:28 Request METABOLIC PANEL, COMPREHENSIVE (22005)Indication: Abnormal glucose tolerance test On: :07 Request LIPID PANEL (98660)Indication: Other hyperlipidemia On: 0-Igl-657755:07 Request PSA (PROSTATE SPECIFIC ANTIGEN) (V76.44)Indication: Enlarged prostate with lower urinary tract symptoms On: :49 Request METABOLIC PANEL, COMPREHENSIVE (48679)Indication: Essential hypertension On: 4-Sko-746902:48 Request LIPID PANEL (12027)Indication: Other hyperlipidemia On: :48 Request HEPATIC FUNCTION PANEL (03261)Indication: Other hyperlipidemia On: :21 Request LIPID PANEL (91711)Indication: Other hyperlipidemia On: :21 Request CBC WITH MANUAL DIFF (30170)Indication: Abnormal glucose tolerance test On: :53 Request METABOLIC PANEL, COMPREHENSIVE ([id number])Indication: Abnormal glucose tolerance test On: :53 Request MICROALBUMIN: CREATININE RATIO ([id number]) AND ([id number])Indication: Abnormal glucose tolerance test On: 9-Ktc-788605:53 Request HEPATIC FUNCTION PANEL ([id number])Indication: Other hyperlipidemia On: :53 Request LIPID PANEL ([id number])Indication: Other hyperlipidemia On: 7-Ahg-344465:53 Request GLUCOSE TOLERANCE TEST (GTT) 2 hour On: 4-Xcq-379151:36 Request ([id number]) TSH ([id number])Indication: Dizziness and giddiness On: 68-Dfw-151729:15 Request LIPID PANEL ([id number])Indication: Other hyperlipidemia On: 61-Atx-538594:15 Request CBC WITH MANUAL DIFF ([id number])Indication: Dizziness and giddiness On: 50-Crt-906932:15 Request METABOLIC PANEL, COMPREHENSIVE ([id number])Indication: Dizziness and giddiness On: 32-Utx-829224:15 Request HEPATIC FUNCTION PANEL ([id number])Indication: Other hyperlipidemia On: 39-Rfh-381218:39 Request LIPID PANEL ([id number])Indication: Other hyperlipidemia On: 47-Rhh-952702:39 Request HEPATIC FUNCTION PANEL ([id number])Indication: Other hyperlipidemia On: 77-Oqq-433796:31 Request LIPID PANEL ([id number])Indication: Other hyperlipidemia On: 30-Lke-121255:31 Request WARREN CULTURE-BLOOD ([id number])Indication: fever On: 5-Yxu-509490:58 Request METABOLIC PANEL, COMPREHENSIVE ([id number])Indication: fever On: 9-Xrt-079610:58 Request CBC WITH MANUAL DIFF ([id number])Indication: fever On: 7-Hjn-146493:58 Request WARREN CULTURE-OTHER ([id number])Indication: Pharyngitis, acute On: 07-Rke-202550:35 Request PSA (Prostate Specific Antigen), Screening ([id number])Indication: Other hyperlipidemia On: :32 Request LIPID PANEL ([id number])Indication: Other hyperlipidemia On: : Request URINALYSIS W/O MICRO ([id number])Indication: Hypertension, benign On: :31 Request TSH ([id number])Indication: Hypertension, benign On: : Request CBC WITH MANUAL DIFF ([id number])Indication: Hypertension, benign On: :31 Request METABOLIC PANEL, COMPREHENSIVE ([id number])Indication: Hypertension, benign On: :31 Request Creatine Kinase Total ([id number])Indication: Myalgia and myositis On: :24 Request SED RATE ERYTHROCYTE ([id number])Indication: Arthralgia On: :23 Request C-REACTIVE PROTEIN ([id number])Indication: Arthralgia On: :23 Request RHEUMATOID FACTOR-QUANT ([id number])Indication: Arthralgia On: :23 Request JOHN (ANTINUCLEAR ANTIBODY) ([id number])Indication: Arthralgia On: :23 Request Planned Encounters Medical; [facility] 3 Month FU - On: 21-Mar-2018 8:30 [facility] Fast DO, Adelaida A Fast DO, Adelaida A Planned Procedures PNEUM VAC ADLT/IMUMNOSPR, On: 06-Dec-2017 Intent SBC/INTRM ([id number])By: Flakito ACKERMAN, Comments: lot: [id number]: ite/route: Татьяна del/IMamt: 0.5mLVIS signed when applicableEVER Monroy Adelaida A Fast DO, Adelaida A Cartoid DopplerBy: Fast DO, Adelaida On: 06-Sep-2017 Intent A Fast DO, Adelaida A Radiology - Lumbar SpineBy: Fast On: 06-Jun-2017 Intent DO, Adelaida A Fast DO, Adelaida A ELECTROCARDIOGRAM, COMPLETE (ECG) On: 06-Jun-2017 Intent ([id number])By: Flakito ACKERMAN Adelaida A Flakito Comments: ekg [...] XRAY, PA & LATERAL On: 18-Jan-2017 Intent ([id number])By: Yola Witt Aerosol Treatment ([id number])By: On: 18-Jan-2017 Intent Yola Witt Solu -Medrol Injection, 125 mg On: 18-Jan-2017 Intent ([id number])By: Yola Witt Comments: solumedrol 125mg injectionlot: [id number]: 12/2018L GMpt tolerated wellAD WINDOW DISPLAY DESIGNER ELECTROCARDIOGRAM, COMPLETE (ECG) On: 05-Jan-2016 Intent ([id number])By: Adelaida Fraga DO Comments: ekg showed normal sinus rhythym, normal axis, no acute st/t wave changes irbb DO, Adelaida A Solu -Medrol Injection, 125 mg On: 09-May-2015 Intent ([id number])By: Samantha Grewal CNP Comments: lot: [id number]: ite/route:RGM/IMamt: 2mLVIS signed when applicableEVER Dumont Aerosol Treatment ([id number])By: On: 09-May-2015 Intent Slarb WINDOW DISPLAY DESIGNER, Tracey Radiology - Chest- PA and LatBy: [...] A Fast DO, Adelaida A Pulse Oximetry ([id number])By: Flakito On: 26-Aug-2014 Intent DO, Adelaida A Fast DO, Adelaida A Comments: 94%- recheck 95 Aerosol Treatment ([id number])By: On: 10-Apr-2014 Intent Tracey Young LPN Eprescribed prescriptions On: 25-Jul-2013 Intent ([id number])By: Fast DO, Adelaida A Fast DO, Adelaida A Pulse Oximetry ([id number])By: Flakito On: 02-Jul-2013 Intent DO, Adelaida A Fast DO, Adelaida A Comments: 97% Aerosol Treatment ([id number])By: On: 25-Jun-2013 Intent Samantha Grewal CNP Eprescribed prescriptions On: 25-Jun-2013 Intent ([id number])By: Samantha Grewal CNP Eprescribed prescriptions On: 02-Apr-2013 Intent ([id number])By: Leigh Ann Polk Aerosol Treatment ([id number])By: On: 26-Mar-2013 Intent Samantha Grewal CNP Eprescribed prescriptions On: 26-Mar-2013 Intent ([id number])By: Eliana Carter Eprescribed prescriptions On: 25-Dec-2012 Intent ([id number])By: Leigh Ann Polk Aerosol Treatment ([id number])By: On: 06-Nov-2012 Intent Samantha Grewal CNP Eprescribed prescriptions On: 06-Nov-2012 Intent ([id number])By: Eliana Carter Ear Irrigation ([id number])By: Carmina On: 25-Sep-2012 Intent Samantha IRVIN Comments: Ear Irrigation performed on:bilateralAmount/color removed cerumen:large amount of dark brown wax removedOUtcome:clear, pt toleratedUsed wax curettes Wax CurettesBy: Samantha Grewal CNP On: 25-Sep-2012 Intent Eprescribed prescriptions On: 22-Sep-2012 Intent ([id number])By: Peter DO, Elizabet Eprescribed prescriptions On: 02-Aug-2012 Intent ([id number])By: Leigh Ann Polk Pulse Oximetry ([id number])By: Flakito On: 30-Jun-2012 Intent DO, Adelaida A Fast DO, Adelaida A Comments: 97% Eprescribed prescriptions On: 12-Jun-2012 Intent ([id number])By: Fast DO, Adelaida A Fast DO, Adelaida A Spirometry ([id number])By: Felicitas, On: 17-Jan-2012 Intent Leigh Ann Comments: good effort and curve mild restriction CT - Sinuses CompleteBy: Fast DO, On: 17-Jan-2012 Intent Adelaida A Fast DO, Adelaida A PNEUM VAC ADLT/IMUMNOSPR, On: 17-Jan-2012 Intent SBC/INTRM ([id number])By: Boris, Comments: Lot:[id number]:04-25-Dose:0.5mLRoute:IMSite:L armGiven By:CHELA signed Jluia IMMUNIZ ADMNIN, 1 VAC, SNGL/COMBO On: 17-Jan-2012 Intent ([id number])By: Julia Escalante CT - ChestBy: Fast DO, Adelaida A On: 17-Jan-2012 Intent Fast DO, Adelaida A Eprescribed prescriptions On: 17-Jan-2012 Intent ([id number])By: Leigh Ann Polk Eprescribed prescriptions On: 18-Oct-2011 Intent (G8553)By: Fast DO, Adelaida A Fast DO, Adelaida A EKG ([id number])By: Fast DO, Adelaida A On: 15-Oct-2011 Intent Fast DO, Adelaida A Comments: ekg- sinus with normal axis and nsivcd and no acute changes Eprescribed prescriptions On: 09-Aug-2011 Intent (G8553)By: Fast DO, Adelaida A Fast DO, Adelaida A PFT - CompleteBy: Fast DO, Adelaida On: 08-Mar-2011 Intent A Fast DO, Adelaida A Pulse Oximetry ([id number])By: Carmina On: 02-Feb-2011 Intent Samantha IRVIN Aerosol Treatment ([id number])By: On: 02-Feb-2011 Intent Samantha Grewal CNP Radiology - Chest- PA and LatBy: On: 18-Jan-2011 Intent Fast DO, Adelaida A Fast DO, Adelaida A Pulse Oximetry ([id number])By: On: 18-Jan-2011 Intent Leigh Ann Polk Comments: 93% TDAP VACCINE >7 IM ([id number])By: On: 07-Dec-2010 Intent Leigh Ann Polk Comments: Lot #:[id number] date:mount given:0.5mlRoute: IMSite given:left deltGiven by: DANIEL Zavaleta Eprescribed prescriptions On: 07-Dec-2010 Intent (G8553)By: Fast DO, Adelaida A Fast DO, Adelaida A FLU VAC, SPLIT, >3 YEARS, On: 07-Dec-2010 Intent INTRAMUSC ([id number])By: Felicitas, Comments: received at work Leigh Ann Toradol Injection, 30 mg On: 05-Nov-2010 Intent ([id number])By: Elizabet Green DO Comments: Lot:[id number]:apr 05Amt:30mg/mlRoute:IMSite:left hip Given By: ILDA Tran Ear Irrigation ([id number])By: Peter On: 05-Nov-2010 Intent Elizabet ACKERMAN Comments: Left ear irrigated, large amt of wax removed. pt tolerated well. Eprescribed prescriptions On: 05-Nov-2010 Intent (G8553)By: Elizabet Green DO Wax CurettesBy: Peter ACKERMAN, On: 05-Nov-2010 Intent Elizabet SPECIMEN HNDLNG/TRNSPRT, OFFC > On: 05-Nov-2010 Intent LAB ([id number])By: Elizabet Green DO Nuclear Medicine - HIDA [...] call wet read DO, Adelaida A Spirometry ([id number])By: Flakito ACKERMAN On: 14-Sep-2010 Intent Adelaida A Fast DO, Adelaida A Comments: good effort and curve- mild restriction Eprescribed prescriptions On: 14-Sep-2010 Intent (G8553)By: Flakito DO, Adelaida A Fast DO, Adelaida A Pulse Oximetry ([id number])By: Flakito On: 14-Sep-2010 Intent DO, Adelaida A Fast DO, Adelaida A Comments: 94-95 Radiology - Chest- PA and LatBy: On: 14-Sep-2010 Intent Fast DO, Adelaida A Fast DO, Adelaida A Pulse Oximetry ([id number])By: Ciesa On: 23-Feb-2010 Intent MICA LAYER, Anamaria Aerosol Treatment ([id number])By: On: 23-Feb-2010 Intent Ciesa MICA LAYER, Anamaria Pulse Oximetry ([id number])By: Ciesa On: 26-Jan-2010 Intent MICA LAYER, Anamaria Aerosol Treatment ([id number])By: On: 26-Jan-2010 Intent Ciesa MICA LAYER, Anamaria Spirometry ([id number])By: Felicitas, On: 29-Apr-2008 Intent Leigh Ann Comments: good effort and curve normal EKG ([id number])By: Fast DO, Adelaida A On: 20-Apr-2007 Intent [...] ACKERMAN Adelaida A Flakito Comments: Lot #: [id number] date: 10/30Amount given: 2 gramsRoute: IMSite given: Right hip and left hipGiven by: Calin Townsend LPN DO, Adelaida A Spirometry ([id number])By: Flakito ACKERMAN, On: 27-Mar-2007 Intent Adelaida A Fast DO, Adelaida A Comments: good effort and curve normal EBV SEROLOGIC TESTBy: Mary Ann Salcido On: 17-Feb-2007 Intent RUDY-GUZMAN VCA ANTIBODY On: 16-Feb-2007 Intent MEASUREMENTBy: Mast RN, Negrita SPECIMEN HNDLNG/TRNSPRT, OFFC > On: 06-Feb-2007 Intent LAB ([id number])By: Fast DO, Adelaida A Fast DO, Adelaida A Ultrasound - TesticularBy: Fast On: 13-Oct-2006 Intent DO, Adelaida A Fast DO, Adelaida A Inhaler Demo ([id number])By: Fast DO, On: 26-Sep-2006 Intent Adelaida A Fast DO, Adelaida A Radiology - Hip - LeftBy: Fast On: 26-Sep-2006 Intent DO, Adelaida A Fast DO, Adelaida A Radiology - Hip - RightBy: Fast On: 26-Sep-2006 Intent DO, Adelaida A Fast DO, Adelaida A Bio Z ([id number])By: Fast DO, Adelaida A On: 25-Jul-2006 Intent Fast DO, Adelaida A Comments: normal paremters Six Minute Walk Assessment On: 25-Jul-2006 Intent ([id number])By: Fast DO, Adelaida A Fast DO, Adelaida A Radiology - Chest- PA and LatBy: On: 25-Jul-2006 Intent Fast DO, Adelaida A Fast DO, Adelaida A Spirometry ([id number])By: Fast DO, On: 25-Jul-2006 Intent Adelaida A Fast DO, Adelaida A Comments: good effort and curve- normal EDISON (Ankle Brachial Index) On: 20-Jul-2006 Intent ([id number])By: Leigh Ann Polk Comments: done EDISON (Ankle Brachial Index) On: 17-May-2006 Intent ([id number])By: Fast DO, Adelaida A Fast DO, Adelaida [...] Indication: Neoplasm of uncertain behavior of skin [facility] Wellness Physical : Patient Instructions Indication: [facility] Wellness Physical [facility] Wellness Physical : How to access health information online Indication: [facility] Wellness Physical [facility] Wellness Physical : [...] Advance Directives Name Dates Details Immunization Registry [place] - Effective on Effective: 31-Jan-201701/31/2017. Expiration date [...] he is going to [facility]- and try to start exercising-, [ADDITIONAL [...] days ago- [facility] Fr[facility]. 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 [...] congestion and ears hurt- [facility]: Cough (786.2), SHORTNESS OF BREATH [...] for Follow up ER: Pt went to [facility] and then went to [facility] to have the doppler done.- got [...] : Pt was transfered to [facility] for heart cath and discharged sat 06/30/13.- he had heart cath again at [facility] and one vessel which shows [...] saw a Dr Barker a psychiatrist in [place]- he thought mostly anxiety so left him [...] gerd- so he is going back to [facility]- mood good with celexa-less tense, [ADDITIONAL [...] for chronic medical issues: recent exposrue to [facility] -- though DDD [...]
--- OUTSIDE RECORDS SUMMARY | 2018-05-15 01:11 | XMS RPT_ITS | Continuity of Care Document ---
:1950 Author Organization [facility] Address [address] [facility] [address] [place] [address] Phone Care Team Providers Name Role Phone Adelaida Fraga DO Unavailable Remigio Lares MD Unavailable Tawanda Alonso Unavailable [facility] Unavailable Eliana Carter Unavailable [...] 09/05- polyps - repeat 5 years [facility] Status: Active Coronary artery disease (I25.10, 414.00) Comments: chronic stable-continue present regimen Status: Active Cough (R05, 786.2) Status: Active Cough (R05, 786.2) Status: Active Deep vein thrombosis of lower extremity (I82.409, 453.40) Comments: awaiting hypercoag labs Status: Active Diplopia (H53.2, 368.2) Comments: he seeing Dr Tnieo today- need to make sure not stroke [...] Solution daily for 90 days Quantity: 3 {Skyforest} Refills: 5 Ordered:31-Oct-2017 Adelaida ACKERMAN DO Adelaida [...] A Start : 02-Nov-2017 Active Comments:sixtyDX: M54.16, M51.61542,411,000 - OD risk 100 Lunesta 3 MG [...] 20-Mar-2013 Inactive Comments:alternate with 20mg(per hans at [facility] - was not fillable if more than 1qd and would require pa at [phone] or [phone] - sent in this way to see [...] Quantity: 6 {Ounce(s)} Refills: 0 Ordered:19-Feb-2008 Yola aSmpson LPN Start : 19-Feb-2008 End : 12-Aug-2008 [...] (Oral Capsule) 1 (one) Capsule Capsule bid f1jkvoe for 21 days Quantity: 42 {Capsule} Refills: [...] : 02-Sep-2010 End : 05-Nov-2010 Inactive NYSTATIN, 474675MXGX/ML (Mouth/Throat Suspension) 10 cc tid for 0 [...] : 22-Jun-2013 End : 03-Sep-2013 Inactive ZOSTAVAX, 47632PYS/0.65ML (Subcutaneous Solution Reconstituted) 1 For Solution sc [...] 3 {Inhaler} Refills: 3 Ordered:10-Apr-2014 Slarb WINDOW CASER, Tracey Start : 22-Jun-2013 End : 10-Apr-2014 Discontinued ATENOLOL, 50MG (Oral Tablet) 1 tab Tablet qd for 30 days Quantity: 30 {Tablet} Refills: 0 Ordered:10-Apr-2014 Slarb WINDOW CASER, Tracey Start : 12-Jun-2012 End : 10-Apr-2014 [...] 60 {Capsule} Refills: 3 Ordered:10-Apr-2014 Slarb WINDOW CASER, Tracey Start : 29-Oct-2013 End : 10-Apr-2014 Discontinued Dymista 137-50 MCG/ACT Nasal Suspension 1 spray each nostril qd for 0 days Quantity: 2 {Skyforest} Refills: 0 Ordered:11-Jun-2016 Leigh Ann Polk Start [...] Start : 05-Jan-2016 End : 06-Apr-2016 Discontinued Comments[id number]- [id number] viewed and approved- gave scripts to [...] 30 {Tablet} Refills: 2 Ordered:09-Aug-2016 Leigh Ann oPlk Start : 27-Jan-2015 End : 09-Aug-2016 Discontinued XARELTO, 15MG (Oral Tablet) 1 (one) Tablet Tablet bid for 21 days with food for 0 days Quantity: 42 {Tablet} Refills: 0 Ordered:06-Jan-2015 Adelaida Fraga DO, DO, Adelaida A Start : 06-Jan-2015 End : 06-Jan-2015 Discontinued ZITHROMAX Z-PHUC, 250MG (Oral Tablet) tad Tablet qd for 0 days Quantity: 6 {Package} Refills: 0 Ordered:10-Apr-2014 Slarb WINDOW CASER, Tracey Start : 06-Feb-2014 End : 10-Apr-2014 [...] x3 one on scalp two on right christianity Status: Inactive as of 06-Jun-2017 Acute sinusitis, [...] W/WO Contrast Result: Comments: See Note; NOTES: [facility] Imaging Services [address] [place] [address] Brain W/WO Contrast MR#: [id number] Acct: [id number] Name: YUMIKO LANDRUM Rep #: [id number] : 1950 M 67 From: Rodney Sarah MD PCP: Adelaida Fraga DO Status: REG CLI Study: Brain W/WO Contrast Date of Exam: 09/26/17 Exam# [id number] Ordering Dr: Perico Crowe MD STUDY: MRI [...] CC: Perico Crowe MD; Adelaida Fraga DO Traffic Checker: Signed 17-Sep-2017 Carotid Duplex Ultrasound Result: Comments: See Note; NOTES: [facility] Cardiovascular Services [address] [place] [address] Carotid Duplex Ultrasound 09/16/17 1012 MR#: [id number] Acct: [id number] Name: YUMIKO MCCOLLUM Rep #: [id number] : 1950 66 From: Jung Garcia MD [...] the left vertebral artery. Procedure Carotid Duplex 96195. The study was technically difficult. Exam performed [...] Date Dictated: 1012 Date Transcribed: 09/17/17 151 Traffic Checker: Signed 17-Aug-2017 History and Physical Exam Result: Comments: See Note; NOTES: [facility] Medical Records Department [address] [place] [address] History and Physical 08/17/17913 MR#: [id number] Acct: [id number] Name: LYON ZAINDUSTY E Rep #: [id number] : 1950 66 From: Remigio Lares MD PCP: Adelaida Fraga DO Status: REG [facility] Y Location: [facility] Problem List (1) Abnormal stress test Status: Acute (2) Atherosclerotic heart d isease of [place] coronary artery without angina pectoris Status: Chronic Qualifiers: [place] vs. transplanted heart: [place] heart Qualified Code(s): I25.10 - Atherosclerotic heart disease of [place] coron elise artery without angina pectoris Comment: [...] was trivial MR and TR and mild MS. His estimated RV systolic pressure was 30 [...] please see previously dictated out the patient [place] from 07/14/2017. Review of systems: Upon review [...] this approach. This note was generated with [employer] dictation software. It may contain incorrect words, spelling, and punctuation that were not noted in checking the note bef ore signing. 08/17/17 0925 <Electronically signed by Remigio Lares MD> Date Remigio Lares MD Cosigner Signature: Date (if applicable) CC: Adelaida Fraga DO; Remigio Lares MD Signed 11-Aug-2017 Chest PA and Lateral Result: Comments: See Note; NOTES: [facility] Imaging Services [address] [place] [address] Chest PA and Lateral MR#: [id number] Acct: [id number] Name: YUMIKO LANDRUM Rep #: [id number] : 1950 M 66 From: Will Guerrero MD PCP: Adelaida Fraga DO Status: REG CLI Study: Chest PA and Lateral Date of Exam: 08/11/17 Exam# [id number] Ordering Dr: Remigio Lares MD STUDY: X-RAY [...] CC: Adelaida Fraga DO; Remigio Lares MD Traffic Checker: Signed 02-Aug-2017 Stress Report Result: Comments: See Note; NOTES: [facility] Cardiovascular Services [address] [place] [address] MR#: [id number] Acct: [id number] Name: YUMIKO LANDRUM Rep #: [id number] : [birth year] 66 From: Remigio Lares MD [...] 72 %. This note was generated with [employer] software. It may contain incorrect words, spelling, and punctuation that were not noted in checking the note before signing. 08/02/17 3055 <Electronically signed by Remigio Lares MD> Date Remigio Lares MD CC: Adelaida Fraga DO; Remigio Lares MD Date Dictate d: 08/02/171638 Date Transcribed: 08/02/171638 Traffic Checker: PM Signed 14-Jul-2017 Cardiology Visit Report Result: Comments: See Note; NOTES: [facility] [address] [place] [address] OFFICE VISIT Date of Service: 07/14/17 MR#: [id number] Acct: [id number] Name: YUMIKO LANDRUM Rep #: [id number] : 1950 Provider: Remigio Lares MD Age/Sex: 66/M Location: [facility] Status: Signed HPI HPI Details: YUMIKO LANDRUM, is a 66 M who presents to the office today for outpatient card iovascular consultation for history of underlying CAD status post LAD PCI. He has been cared for in the past both by the [facility] members (Drs. Griggs and Edwin), at [facility] by Dr. Rosales, and at [facility] by Dr. Maury Veliz. He states he lost saw Dr. Veliz approximately 1 year ago. He is now relocating his care locally. He has a history of underlying CAD. He underwent a previous diagnostic car diac catheterization on 08/11/2005 at [facility]. At that point in time he was [...] no significant stenosis. In April 2008, at [facility], he had a repeat diagnostic cardiac catheterization. [...] luminal irregularities. He apparently was transferred to [facility] for further evaluation and care. The [...] an LYNDSEY inhibitor. He believes his former artistic associate remove these medications from ri s medication list. He does not recall [...] PO QAM cap 07/14/17 [History Confirmed 07/14/17] [facility] Medical History Presence of sten t in coronary artery (Chronic 08/11/05) Hyperlipidemia (Chronic) Hypertension (Chronic) Prinzmetal angina (Acute) Atherosclerotic heart disease of [place] coronary artery without angina pectoris (Chroni c) [...] affect Assessment AND Plan 1. Atherosclerosis of [place] coronary artery of [place] heart without angina pectoris I25.10 PTCA/RINA to [...] Code Off vis,new,level 4 Diagnoses Atherosclerosis of [place] coronary artery of [place] heart without angina pectoris I25.10 [place] vs. transplanted heart: n ative heart Presence of stent in coronary artery Z95.5 Hyperlipidemia, unspecified hyperlipidemia type E78.5 Hyperlipidemia type: unspecified Essential hypertension I10 Hypertension type: essential hype rtension COPD (chronic obstructive pulmonary disease) J44.9 Coding Level of Care Code Off vis,new,level 4 Diagnoses Atherosclerosis of [place] coronary artery of [place] heart without angina pectoris I 25.10 [place] vs. transplanted heart: [place] heart Presence of stent in coronary artery Z95.5 Hyperlipidemia, unspecified hyperlipidemia type E78.5 Hyperlipidemia type: unspecified Essential hypertension I10 Hypertension type: essential hypertension COPD (chronic obstructive pulmonary disease) J44.9 07/14/17 1558 <Electronically signed by Remigio Lares MD> Date Remigio Lares MD Cosigner Signature: Date (if applicable) CC: Adelaida Fraga DO 14-Jul-2017 12 Lead EKG performed by [facility] Result: Comments: See Note; NOTES: [facility] [address] [place] [address] 12 Lead EKG performed by [facility] 07/14/176 MR#: [id number] Acct: [id number] Name: YUMIKO LANDRUM Rep #: [id number] : 1950 66 From: Remigio Lares MD Attending Dr: Remigio Lares MD Status: DEP AMB Ordering Dr: Remigio Lares MD Date: 07/14/17 [facility] [facility] Sex: M C Admitted: [facility]/12 Lead EKG performed by [facility] ECG Report Interpretation Sinus Rhythm Right bundle branch block. ABNORMAL Electronically signed on 07/14/2017 at 17:15 by Remigio Lares 07/14/17 1717 Date Remigio Lares MD CC: Adelaida Fraga DO Date Dictated: 07/14/171435 Date Transcribed: 07/14/171435 Traffic Checker: PM Signed 04-Jul-2017 TXT - Blood Flow Screening Result: Comments: See Note; NOTES: [facility] Cardiovascular Services [address] [place] [address] 07/04/17 0840 MR#: [id number] Acct: [id number] Name: YUMIKO LANDRUM Rep #: [id number] : 1950 66 From: Jung Garcia MD Attending Dr: Adelaida Fraga DO Status: REG REF Ordering Dr: Date: 07/04/17 Location: [facility] Sex: M C Admitted: Reason For Study: [...] (1.0 or greater). Ordering Physician: [facility] Physician: Adelaida Fraga Performed By: Kayla Kelley, RDCS, RVT 07/04/172221 Date Tyrese Garcia MD CC: Adelaida Fraga DO Date Dictated: 07/04/17 0840 Date Transcribed: 07/04/172221 Traffic Checker: Signed 06-Jun-2017 L/S Spine Min 4 Views Result: Comments: See Note; NOTES: [facility] Imaging Services [address] [facility] [place] [address] L/S Spine Min 4 Views MR#: [id number] Acct: [id number] Name: YUMIKO LANDRUM Rep #: [id number] : 1950 M 66 From: Rafael Manley DO PCP: Adelaida Fraga DO Status: REG CLI Study: L/S Spine Min 4 Views Date of Exam: 06/06/17 Exam# [id number] Ordering Dr: Adelaida Fraga DO STUDY: X-RAY [...] Rafael Manley DO at 18:01 EDT Tel [phone], Service support , CC: Adelaida Fraga DO Traffic Checker: Signed 18-Feb-2017 Ankle min 3 Views Result: Comments: See Note; NOTES: [facility] Imaging Services [address] [place] [address] Ankle min 3 Views MR#: [id number] Acct: [id number] Name: YUMIKO LANDRUM Rep #: [id number] D OB: 1950 M 66 From: Trevon Carrillo MD PCP: Adelaida Fraga DO Status: REG CLI Study: Ankle min 3 Views Date of Exam: 02/18/17 Exam# [id number] Ordering Dr: Adelaida Fraga DO STUDY: X-RAY [...] Service support , CC: Adelaida Fraga DO Traffic Checker: Signed 18-Feb-2017 Chest without Contrast Result: Comments: See Note; NOTES: [facility] Imaging Services [address] [place] [address] Chest without Contrast MR#: [id number] Acct: [id number] Name: YUMIKO LANDRUM Rep #: [id number] : 1950 M 66 From: Kaitlin Campoverde PCP: Adelaida Fraga DO Status: REG CLI Study: Chest without Contrast Date of Exam: 02/18/17 Exam# [id number] Ordering Dr: Adelaida Fraga DO STUDY: CT [...] Service support , CC: Adelaida Fraga DO Traffic Checker: Signed 10-Feb-2017 Chest PA and Lateral Result: Comments: See Note; NOTES: [facility] Imaging Services [address] [place] [address] Chest PA and Lateral MR#: [id number] Acct: [id number] Name: YUMIKO LANDRUM Rep #: [id number] : 1950 M 66 From: Chava Fu MD PCP: Adelaida Fraga DO Status: REG CLI Study: Chest PA and Lateral Date of Exam: 02/10/17 Exam# [id number] Ordering Dr: Yola Witt STUDY: X-RAY CHEST [...] , CC: COCO Witt; Adelaida Fraga DO Traffic Checker: Signed 18-Jan-2017 Chest PA and Lateral Result: Comments: See Note; NOTES: [facility] Imaging Services [address] [place] [address] Chest PA and Lateral MR#: [id number] Acct: [id number] Name: YUMIKO LANDRUM Rep #: [id number] : 1950 M 66 From: Erwin Jiménez MD PCP: Adelaida Fraga DO Status: REG CLI Study: Chest PA and Lateral Date of Exam: 01/18/17 Exam# [id number] Ordering Dr: Yola Witt STUDY: X-RAY CHES [...] EST Tel , Service support , CC: CHIEF ENGINEER'S HELPERMayra Witt; Adelaida Fraga DO Traffic Checker: Signed 11-Apr-2015 Chest PA and Lateral Result: Comments: See Note; NOTES: [facility] Imaging Services [address] [place] [address] [place] 4d Chest PA and Lateral MR#: [id number] Acct: [id number] Name: YUMIKO LANDRUM Rep #: [id number] : 1950 64 From: Stephen Barba MD PCP: Adelaida Fraga DO Status: REG CLI Study: Chest PA and Lateral Date of Exam: 04/11/15 Exam# [id number] Ordering Dr: Adelaida Fraga DO STUDY: X-RAY [...] FACR at 20:20 EST , Service support [phone], RAD/Chest PA and Lateral IMPRESSION: Normal x-ray examination of the chest. No lingular infiltrate is noted on today's examination Electronically Signed: Stephen Barba MD, FACR at 20:20 EST , Service support [phone], CC: Adelaida Fraga DO Traffic Checker: Signed 11-Apr-2015 Hip min 2 Views Result: Comments: See Note; NOTES: [facility] Imaging Services [address] [place] [address] [place] 4d Hip min 2 Views MR#: [id number] Acct: [id number] Name: DOMINICKNATHAN QUIÑONEZHERNANDO Taylor Rep #: [id number] : 1950 64 From: Stephen Barba MD PCP: Adelaida Fraga DO Status: REG CLI Study: Hip min 2 Views Date of Exam: 04/11/15 Exam# [id number] Ordering Dr: Adelaida Fraga DO UDY: X-RAY [...] FACR at 20:19 EST , Service support [phone], RAD/Hip min 2 Views IMPRESSION: Normal x-ray examination of the pelvis and hip. Electronically Signed: Stephen Barba MD, FACR 201 07/23/18 at 20:19 EST , Service support [phone], CC: Adelaida Fraga DO Traffic Checker: Signed 11-Apr-2015 L/S Spine Min 4 Views Result: Comments: See Note; NOTES: [facility] Imaging Services [address] [place] [address] [place] 4d L/S Spine Min 4 Views MR#: [id number] Acct: [id number] Name: YUMIKO LANDRUM Rep #: [id number] : 1950 64 From: Stephen Barba MD PCP: Adelaida Fraga DO Status: REG CLI Study: L/S Spine Min 4 Views Date of Exam: 04/11/15 Exam# [id number] Ordering Dr: Susannah Fraga ra, DO STUDY: [...] FACR at 20:20 EST , Service support [phone], RAD/L/S Spine Min 4 Views IMPRESSION: M ild degenerative disc disease at L2-3 and L5-S1. Facet arthrosis at L4-5 and L5-S1. Mild dextroscoliosis. Electronically Signed: Setphen Barba MD, FACR at 20:20 EST Tel , Service support [phone], CC: Adelaida Fraga DO Traffic Checker: Signed 27-Aug-2014 Chest PA and Lateral Result: Comments: See Note; NOTES: [facility] Imaging Services [address] [place] [address] Radiology Report MR#: [id number] Acct: [id number] Name: YUMIKO LANDRUM [place] Rep #: [id number] : 1950 M 63 From: Wilfredo Alvarado MD PCP: Adelaida Fraga DO Status: REG CLI Study: Chest PA and Lateral Date of Exam: 08/27/14 Exam# [id number] Ordering Dr: Adelaida Fraga DO STUDY: X- [...] Wilfredo Alvarado MD at 15:46 EDT Tel [phone], Service support [phone], 0079 RAD/Chest PA and Lateral IMPRESSION: Inc reased markings in the lingular segment of the left upper lobe suggestive of early infiltrate. Followup is recommended. Electronically Signed: Wilfredo Alvarado MD at 15:46 EDT Tel [phone], Service support [phone], CC: Adelaida Fraga DO Traffic Checker: Signed 02-Jul-2013 12 Lead Electrocardiogram Result: Comments: See Note; NOTES: [facility] Cardiovascular Services [address] [place] [address] 12 Lead EKG 06/17/13 1938 MR#: [id number] Acct: [id number] Name: CITLALLI LANDRUM [place] Rep #: [id number] : 1950 62 From: Remigio Lares MD [...] Abnormal ECG Confirmed by GERDA CALVO, REMIGIO ([id number]), editorial manager KARYNA RUBALCAVA ([id number]) on 2013 10:04:35 AM Referred By: Jose Fernando Confirmed By:REMIGIO LARES MD CC: Adelaida byrd DO Date Dictated: 06/17/131937 Date Transcribed: 06/17/131937 Traffic Checker: Signed 30-Jun-2013 Emergency Department Summary Result: Comments: See Note; NOTES: [facility] Medical Records Department [address] [place] [address] Emergency Department Summary MR#: [id number] Acct: [id number] Name: YUMIKO LANDRUM Rep #: [id number] : 1950 62 From: Jose Fernando MD PCP: Adelaida Fraga DO Status: DEP ER DATE OF SERVICE: 06/28/2013 CHIEF COMPLAINT: Chest pain. HISTORY OF PRESENT ILLNESS: The patient states over the past 8 hours, he has had intermittent discomfort in the chest of burning to ache similar to angina. He had an MD, he thinks, back in 2011 when he had a stent placed by Dr. Mariah carr in [facility]. He has been off his blood thinners [...] and sensation, cranial nerve function and treatment. [facility] DEPARTMENT COURSE: Portable one-view chest [...] a 3. He agreed to go to [facility] where his artistic associate is in case he needs another cath and stent. He was stable for transfer. I spoke with [facility], Jorge and Dr. Trujillo as police records clerk accepted the patient after being advised of all the above through the transfer stationary steam engineer. He did not want to talk to me. The patient is stable for transfer, with him. DIAGNOSES: 1. Chest pain. 2. Unstable angina. Jose Fernando MD C C: Adelaida Fraga DO T: NTS JOB: [id number] 06/30/13 0021 <Electronically signed by Jose Fernando MD> Date Jose Fernando MD CC: Adelaida Fraga DO Date Dictated: 06/28/132254 Date Transcribed: 06/28/132254 Traffic Checker: Signed 28-Jun-2013 Chest 1 View (Portable) Result: Comments: See Note; NOTES: [facility] Imaging Services [address] [place] [address] Radiology Report MR#: [id number] Acct: [id number] Name: YUMIKO LANDRUM [place] Rep #: [id number] : 1950 M 62 From: Wilfredo Alvarado MD PCP: Adelaida Fraga DO Status: DEP ER Study: Chest 1 View (Portable) Date of Exam: 06/28/13 Exam# [id number] Ordering Dr: Jose Fernando MD STUDY: X-RAY [...] Wilfredo Alvarado MD at 9:06 EDT Tel [phone], Service support [phone], CC: Adelaida Fraga DO; Jose Fernando MD Traffic Checker: Signed Immunization Name Dates Details Influenza vaccine, split, 3yrs &>, IM (AFLURIA) on: Nov-2017 Influenza, inj, MDCK, preservative free, q.valent on: 07-Dec-2016 Comments: Site: Lot #: [id number] Family History Unknown Family Member Name Dates [...] Status: Active 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 57-Kvv-545084:31 Hemoglobin A1c Comments: [facility] [address] [place], [place], [id number] HGB A1C 6.0 % (Normal) Range: 4.2-6.3 60-Ldn-219547:31 Lipid Profile Comments: [facility] [address] [place], [place], [address] VLDL 24 mg/dL (Normal) Range: 5-40 LDL [...] Risk :31 PSA,Total - Annual Screen Comments: [facility] [address] [place], [place], [address] PSA,TOT SCREEN 0.50 ng/mL (Normal) Range: 0.00-4.00 Comments: This test was performed using the TPSA assay method for the[facility] chemistry system. Values obtained with differentassay methods cannot be used interchangably.When changing PSA assays in the course of monitoring apatient, additional sequential testing should be carriedout to confirm baseline values. 94-Jfi-142462:42 Aspergillus Antibodies Comments: [facility] (refer to report for specific site)refer to report for address and phone number Asp. niger Negative (Normal) Asp. flavus Negative (Normal) Asp. fumigatus Negative (Normal) :42 Immunoglobulin E Comments: [facility] (refer to report for specific site)refer to report for address and phone number IMMUNO E 19 {IU/mL} (Normal) Range: 0-100 16-Iys-624226:42 Immunoglobulin G [facility]er [facility] for specific site)refer to report for address and phone number IMMUNO G 702 mg/dL (Normal) Range: 700-1600 Comments: Performed at: [address] [id number] Director: Joseph Velez MD, Phone: [phone] at: [place] [id number] Director: Hugo Britt PhD, Phone: [phone] 71-Zhq-519313:42 Miscellaneous Lab Comments: Comments: [id number] CASTRO,RTTest(s) [facility]dered: [facility] [address] [place], [place], [address] Procedure MIS Comments: TEST RESULT UNITS REFERENCE INTERVALA. fumigatus #1 Abs NEGATIVE NEGATIVE TESTING PERFORMED AT [facility]. O LAB (Normal) RIGINAL REPORT ON FILE IN LAB CONTAINS ADDITIONAL TEST SITE INFORMATION. TEST 5-Arq-602340:28 Acetylcholine Receptor Comments: Has Patient had Radioactive Injection for X-ray?: [facility] (refer to report for specific site)refer to report for address and phone number ACTYL [id number] < 0.03 nmol/L (Normal) Range: 0.00-0.24 Comments: Negative: 0.00 - 0.24 Borderline: 0.25 - 0.40 Positive: > 0.40Performed at: [address] [id number] Director: Joseph Velez MD, Phone: [phone] 0-Syn-045803:28 BUN 9 mg/dL (Normal) Comments: [facility] [address] [place], [id number] Range: 7-18 8-Bif-087288:28 Serum Creatinine AND GFR Comments: [facility] [address] [place], [id number] EST GFR - AA 100 mL/min (Normal) Comments: GFR Calc EST GFR 83 mL/min (Normal) Comments: Non- GFR Calc CREAT,SERUM 0.97 mg/dL (Normal) Range: 0.70-1.30 Comments: The validity of the calculated GFR AND GFRAA in patients over70 years has not been determined. Clinical correlation isessential. 22-Otr-590546:13 Culture, Fungus 8482 Comments: [facility] [address] [place], [address] CUF See Note Comments: Cu,Imhgnd2198 TESTING PERFORMED AT [facility]. ORIGINAL REPORT ON FILE IN LAB CONTAINS ADDITIONAL TEST SITE INFORMATION. (Normal) ORGANISM 1: Barron albicansAmount Growth Growth ORGANISM 2: Penicillium speciesAmount Growth Growth 79-Vlp-157656:13 Culture, Sputum Comments: [facility] Urwalewfei[address] [place], [address] CUSP See Note (Normal) Comments: Gram StainAcceptable Specimen? Yes (<25 Epithelial cells per/lpf) Gram Stain 2+ White Blood Cells 2+ Epithelial cells 4+ Gram positive cocci 4+ Gram positive rods Resp. CultureNo Haemoph ilus, Streptococcus pneumoniae, beta-hemolytic Streptococcus or Staphylococcus aureus isolated. ORGANISM 1: Yeast Like OrganismAmount Growth Rare ORGANISM 2: Mixed FloraAmount Growth 3+ 71-Rjc-777243:59 CBC W/Diff, Automated Comments: [facility] Fcjdjdyzxb[address] [place], [place], [address] Absolute Lymph 1.98 {X10_3/ul} (Normal) Range: 0.83-4.51 [...] 4.6-6.2 WBC 10.8 K/mm3 (Normal) Range: 4.4-11.0 32-Quk-852340:59 Comprehensive Metabolic Profil Comments: [facility] Apuwasfkkt0537 [address] [place], [place], [address] GAP 10 (Normal) Range: 5-15 CO2 27.0 [...] A.D.A. criteria.Please note revised GLUCOSE reference range qpewozmqu36/02/2018. 69-Xbb-342333:59 Hemoglobin A1c Comments: [facility] [address] [place], [place], [address] HGB A1C 6.2 % (Normal) Range: 4.2-6.3 16-Wvs-056955:59 Lipid Profile Comments: [facility] [address] [place], [place], [address] VLDL 13 mg/dL (Normal) Range: 5-40 LDL [...] 200-240 mg/dL Borderline >240 mg/dL High Risk 69-Lks-527407:59 Microalb:Creat Ratio,Random UR Comments: [facility] Uumrwsvtst[address] [place], [place], [address] MALB:CREAT 10.1 {mg/g_CRE} (Normal) MICROALBUMIN,UR 5.6 mg/L (Normal) UR CREAT 55.70 mg/dL (Normal) :45 Basic Metabolic Profile (BMP) Comments: [facility] T[address]rsjymln[address] [place], [place], [address] GAP 6 (Normal) Range: 5-15 CO2 29.0 [...] Comments: Please note revised GLUCOSE reference range kyyoouhbw97/02/2018. 8-Mrg-089599:45 Lipid Profile Comments: [facility] E[address]zc[address]ux[address] [place], [place], [address] VLDL 22 mg/dL (Normal) Range: 5-40 LDL [...] 200-240 mg/dL Borderline >240 mg/dL High Risk 2-Wfw-746149:45 Liver Profile Comments: [facility] Mrofrlblki44[address] [place], [address] D BILI 0.13 mg/dL (Normal) Range: 0.00-0.30 T BILI 0.50 mg/dL (Normal) Range: 0.20-1.00 ALT 27 U/L (Normal) Range: 16-61 ALK P 53 U/L (Normal) Range: 45-117 AST 20 U/L (Normal) Range: 15-37 GLOB 4.3 g/dL (Abnormal) Range: 2.2-4.2 ALB 3.0 g/dL (Abnormal) Range: 3.2-5.0 T PROT 7.3 g/dL (Normal) Range: 6.4-8.2 42-Sks-961670:31 Basic Metabolic Profile (BMP) Comments: [facility] Jhfslaiqzp[address] [place], [place], [address] GAP 4 (Abnormal) Range: 5-15 CO2 27.0 [...] A.D.A. criteria.Please note revised GLUCOSE reference range apntvivdc68/02/2018. 66-Kdd-247029:31 CBC-Complete Blood Cnt No Diff Comments: [facility] Kzlztpsvtp2539 [address] [place], [place], [address] MPV 8.7 fL (Normal) Range: 6.2-12.0 PLT [...] 4.6-6.2 WBC 9.6 K/mm3 (Normal) Range: 4.4-11.0 27-Kwd-818963:31 Partial Thromboplast Time Comments: [facility] [address] [place], [place], [address] PTT 26.1 s (Normal) Range: 24.1-36.2 53-Wzf-197815:31 Prothrombin Time w/INR Comments: [facility] Cwydxkkqvz[address] [place], [place], [address] INR 0.9 (Normal) PROTIME 12.5 s (Normal) Range: 11.7-14.9 :00 Culture, Fungus 8482 Comments: [facility] [address] [place], [address] CUF See Note Comments: Cu,Kmibiy9892 TESTING PERFORMED AT [facility]. ORIGINAL REPORT ON FILE IN LAB CONTAINS ADDITIONAL TEST SITE INFORMATION. (Normal) ORGANISM 1: Barron albicansAmount Growth Growth ORGANISM 2: Penicillium speciesAmount Growth Growth ORGANISM 3: Aspergillus speciesAmount Growth Growth :00 Culture, Sputum Comments: [facility] [address] [place], [place], [address] CUSP See Note (Normal) Comments: Gram StainAcceptable Specimen? Yes (<25 Epithelial cells per/lpf) Gram Stain 1+ White Blood Cells Rare Epithelial cells 4+ Gram positive rods 1+ Gram negative rods Resp. Culture Mixed nor mal respiratory ashkan. No Haemophilus, Streptococcus pneumoniae, beta-hemolytic Streptococcus or Staphylococcus aureus isolated. 04-Ihr-904244:00 Culture, Sputum Comments: [facility] S[address] [place], [address] CUSP See Note (Normal) Comments: Gram StainAcceptable Specimen? Yes (<25 Epithelial cells per/lpf) Gram Stain 1+ White Blood Cells Rare Epithelial cells 3+ Gram positive cocci Resp. CultureMixed normal respiratory ashkan. No Haemophilus, Streptococcus pneumoniae, beta-hemolytic Streptococcus or Staphylococcus aureus isolated. 40-Hgf-549638:44 TESTOSTERONE FREE (33003) Comments: PATIENT NOT FASTINGPERFORMED BY: [facility]CoC[facility] CenterDyopxy9372 [facility] [id number] BY: [address] [id number] Free Testosterone(Direct) 2.6 pg/mL (Abnormal) Range: 6.6-18.1 10-Dxk-491485:44 HEPATITIS C ANTIBODY Comments: PATIENT NOT FASTINGPERFORMED BY: [place] 0156770 [facility] [id number] BY: [address] [id number] ([address]) Hep C Virus Ab 0.1 {s/co_ratio} (Normal) Range: 0.0-0.9 Comments: Negative: < 0.8 Indeterminate: 0.8 - 0.9 Positive: > 0.9 . The CDC recommends that a positive HCV antibody result be followed up with a HCV Nucleic Acid Amplification test (980499). 22-Vxt-429410:44 CBC W/AUTO DIFF WBC Comments: PATIENT NOT FASTINGPERFORMED BY: [place] 0156770 [facility] [id number] BY: [address] [id number] (14[address]) Immature Grans (Abs) 0.0 {x10E3/uL} (Normal) Range: [...] 4.14-5.80 WBC 6.1 {x10E3/uL} (Normal) Range: 3.4-10.8 93-Xdd-257086:44 METABOLIC PANEL, Comments: PATIENT NOT FASTINGPERFORMED BY: CB [facility] Qwwmem1104 [facility] [id number] BY: BN [facility] Scaegndfme0091 [facility] [id number] [facility] ([address]) ALT (SGPT) 17 [iU]/L (Normal) Range: 0-44 [...] 8-27 Glucose 102 mg/dL (Abnormal) Range: 65-99 15-Eat-694186:15 HgA1C , Office (04170) HgA1C , Office 5.7 % (Normal) Range: 4.6 - 7.1 :30 CBC W/Diff, Automated Comments: [facility] Q[address]wt[address] [place], [address] Absolute Lymph 1.76 {X10_3/ul} (Normal) Range: 0.83-4.51 [...] 4.6-6.2 WBC 6.7 K/mm3 (Normal) Range: 4.4-11.0 40-Bhv-345647:30 Comprehensive Metabolic Profil Comments: [facility] [address] [place], [address] GAP 9 (Normal) Range: 5-15 CO2 25.0 [...] 7-18 GLU 78 mg/dL (Normal) Range: 70-110 67-Hki-594811:30 Culture, Urine Comments: [facility] [address]su[address] [place], [address] CUUR See Note (Normal) Comments: Urine CultureCulture exhibits no growth. 57-Xar-344725:30 Lipid Profile Comments: [facility] Kxqbqxnvoa364[address] [place], [address] VLDL 19 mg/dL (Normal) Range: 5-40 LDL [...] 200-240 mg/dL Borderline >240 mg/dL High Risk 18-Dpw-349543:10 Rapid Strep Test, Office (39755) Comments: Negative Rapid Strep Test, Office Negative (Normal) 06-Ope-42311:51 THROAT CULTURE (77286) Comments: PATIENT NOT FASTINGPERFORMED BY: [employer] [facility] [id number] Information: SRC: Result 1 RRF (Normal) Comments: Routine respiratory ashkan Upper Respiratory Culture Final report (Normal) 69-Uat-545081:02 Rapid Flu (93842 x 2) Comments: Negative Influenza A Ag Negative (Normal) :45 URINE WARREN CULTURE-IDENTIFICATN Comments: PERFORMED BY: [employer] [facility] Ltdady4685 [facility] [id number] Information: SRC:UC (05331) Result 1 NG36 (Normal) Comments: No growth in 36 - 48 hours. Urine Culture,Comprehensive Final report (Normal) 96-Ehc-540041:02 Urinalysis, Office (48117) UA - LEUKOCYTE ESTERASE Negative (Normal) UA - NITRITE Negative (Normal) URINE UROBILINGN MASSIEL TIMED Normal mg/dL (Normal) UA - PROTEIN Negative mg/dL (Normal) UA - PH 7 (Normal) UA - BLOOD Negative (Normal) UA - SPECIFIC GRAVITY 1.020 (Normal) UA - KETONES Negative mg/dL (Normal) UA - BILIRUBIN Negative (Normal) UA - GLUCOSE Negative (Normal) 70-Cxj-812754:22 CBC W/Diff, Automated Comments: [facility] G[address]ff[address] [place], [address] Absolute Lymph 1.50 {X10_3/ul} (Normal) [...] 4.6-6.2 WBC 6.2 K/mm3 (Normal) Range: 4.4-11.0 74-Pyt-061088:22 Comprehensive Metabolic Profil Comments: [facility] S[address]zeglzwu[address] [place], [address] ; will review opn 11/10 [...] 7-18 GLU 104 mg/dL (Normal) Range: 70-110 31-Ywt-219007:22 Hemoglobin A1c Comments: [facility] Olzsk[address]ruyx[address] [place], [place], [address] HGB A1C 5.6 % (Normal) Range: 4.2-6.3 77-Iwa-843765:22 Immunofixation, Serum Comments: [facility] (refer to report for specific site)refer to report for address and phone number PAULA RESULT,S Comment (Normal) Comments: No monoclonality detected. IMMUNOGL M 53 mg/dL (Normal) Range: 20-172 IMMUNO A 169 mg/dL (Normal) Range: 61-437 IMMUNO G 692 mg/dL (Abnormal) Range: 700-1600 38-Xzw-525230:22 [place] Lambda Light Chains Comments: [facility] (refer to report for specific site)refer to report for address and phone number KAPPA/LAMBDA % 1.17 (Normal) Range: 0.26-1.65 Comments: Performed at: - [facility] [id number] Director: Hugo Britt PhD, Phone: [phone] FR LAMBDA LT CH 12.3 mg/L (Normal) Range: 5.7-26.3 FR KAPPA LT CHN 14.4 mg/L (Normal) Range: 3.3-19.4 91-Csz-066983:22 Lipid Profile Comments: [facility] Ypsrlhdydy[address] [place], [place], [address] VLDL 20 mg/dL (Normal) Range: 5-40 LDL [...] 200-240 mg/dL Borderline >240 mg/dL High Risk 80-Oaa-409909:22 Microalb:Creat Ratio,Random UR Comments: [facility] Zhbuuuinmy[address] [place], [address] ; will review on 11/10 MALB:CREAT 5.6 {mg/g_CRE} (Normal) MICROALBUMIN,UR 7.2 mg/L (Normal) UR CREAT 128.00 mg/dL (Normal) 51-Zta-508271:22 PSA,Total - Annual Screen Comments: [facility] Ugqdjptuic13[address] [place], [place], [address] PSA,TOT SCREEN 0.63 ng/mL (Normal) Range: 0.00-4.00 Comments: This test was performed using the TPSA assay method for theSt. [facility] chemistry system. Values obtained with differentassay methods cannot be used interchangably.When changing PSA assays in the course of monitoring apatient, additional sequential testing should be carriedout to confirm baseline values. :07 CBC W/Diff, Automated Comments: [facility] [address] [place], [place], [phone] Absolute Lymph 1.42 {X10_3/ul} (Normal) Range: 0.83-4.51 [...] Range: 4.4-11.0 :07 Comprehensive Metabolic Profil Comments: [facility] [address] [place], [place], [address] GAP 8 (Normal) Range: 5-15 CO2 27.0 [...] 7-18 GLU 104 mg/dL (Normal) Range: 70-110 74-Cqn-296060:07 Hemoglobin A1c Comments: [facility] Mznowikoil4[address] [place], [place], [address] HGB A1C 5.6 % (Normal) Range: 4.2-6.3 65-Cfq-440220:07 PAULA + Protein Elect, Serum Comments: Is Patient Fasting? [facility] (refer to report for specific site)refer to report for address and phone number NOTE: Comment (Normal) Comments: Protein electrophoresis scan will follow via computer,mail, or cloth carrier delivery.Performed at: [address] [id number] Director: Hugo Britt PhD, Phone: [phone] PAULA RESULT,S Comment (Normal) Comments: No monoclonality detected. A/G RATIO 1.2 (Normal) Range: 0.7-1.7 GLOBULIN, TOTAL 3.0 g/dL (Normal) Range: 2.2-3.9 M-SPIKE g/dL (Normal) Comments: Not Observed GAMMA GLOBULIN 0.7 g/dL (Normal) Range: 0.4-1.8 BETA GLOBULIN 1.1 g/dL (Normal) Range: 0.7-1.3 ZMAEI-3-ANXY 0.8 g/dL (Normal) Range: 0.4-1.0 LHMMV-1-VGIM 0.3 g/dL (Normal) Range: 0.0-0.4 ALBUMIN 3.3 g/dL (Normal) Range: 2.9-4.4 IMMUNOGL M 53 mg/dL (Normal) Range: 20-172 IMMUNO A 177 mg/dL (Normal) Range: 61-437 IMMUNO G 761 mg/dL (Normal) Range: 700-1600 PROTEIN,TOTAL 6.3 g/dL (Normal) Range: 6.0-8.5 28-Jjv-611733:07 Lipid Profile Comments: [facility] [address] [place], [place], [address] VLDL 21 mg/dL (Normal) Range: 5-40 LDL [...] High Risk :01 CBC W/Diff, Automated Comments: [facility] [address] [place], [address] Absolute Lymph 1.62 {X10_3/ul} (Normal) [...] 4.6-6.2 WBC 7.6 K/mm3 (Normal) Range: 4.4-11.0 67-Anv-135673:01 Comprehensive Metabolic Profil Comments: [facility] Fuevhyxvkk6355 Andrea [place], [place], [address] ; has apt today GAP 7 (Normal) [...] 7-18 GLU 96 mg/dL (Normal) Range: 70-110 01-Upf-825058:01 Lipid Profile Comments: [facility] Kmgcppqzlo[address] [place], [place], [address] VLDL 11 mg/dL (Normal) Range: 5-40 LDL [...] 200-240 mg/dL Borderline >240 mg/dL High Risk 47-Plr-419519:01 Lipoprotein A 369 nmol/L (Abnormal) Comments: [facility] [...] genetic factors on Lp(a) across ethnicities.Performed at: [employer] [id number] Director: Hugo Britt PhD, Phone: [phone] 95-Gla-662784:56 HgA1C , Office (36867) HgA1C , Office 5.6 % (Normal) Range: 4.6 - 7.1 2-Hol-852284:19 ANCA Panel Comments: PATIENT NOT FASTINGPERFORMED BY: [employer] [id number] BY: [employer] [address] [id number] Atypical pANCA <1:20 {titer} Comments: The atypical [...] follow up testing ofpositive sera with both MS-3 and MPO-ANCA enzyme immunoassays. Asmany as 5% serum samp les are positive only by EIA.Ref. AM J Clin Pathol 1999;111:507-513. Cytoplasmic (C-ANCA) <1:20 {titer} (Normal) Antiproteinase 3 (MS-3) Abs <3.5 U/mL (Normal) Range: 0.0-3.5 Antimyeloperoxidase (MPO) Abs <9.0 U/mL (Normal) Range: 0.0-9.0 :19 Antinuclear Antibodies Comments: PATIENT NOT FASTINGPERFORMED BY: [employer] [id number] BY: [facility] [place] [id number] Direct JOHN Direct Negative (Normal) :1 C-Reactive Protein, 2.1 mg/L (Normal) Comments: PATIENT NOT FASTINGPERFORMED BY: [address] [id number] BY: LabM[facility] [facility] [place] [id number] Quant Range: 0.0-4.9 :19 Rheumatoid Arthritis Comments: PATIENT NOT FASTINGPERFORMED BY: [address] [id number] BY: [place] 0156770 [address] [facility] [id number] Factor RA Latex Turbid. 7.8 {IU/mL} Range: 0.0-13.9 (Normal) Sedimentation 8 mm/h (Normal) Comments: PATIENT NOT FASTINGPERFORMED BY: [address] [id number] BY: [facility] [facility] [id number] :19 Rate-Westergren Range: 0-30 Thyroid Peroxidase (TPO) 8 {IU/mL} (Normal) Comments: PATIENT NOT FASTINGPERFORMED BY: [address] [id number] BY: [facility] [facility] [place] [id number] :19 Ab Range: 0-34 :19 Thyroxine (T4) Free, Comments: PATIENT NOT FASTINGPERFORMED BY: [address] [id number] BY: [facility] [facility] [place] [id number] Direct, S T4,Free(Direct) 1.11 ng/dL Range: 0.82-1.77 (Normal) Triiodothyronine,Free,Seru 2.5 pg/mL (Normal) Comments: PATIENT NOT FASTINGPERFORMED BY: [facility]University [facility]1447 [facility] [id number] BY: [facility]6370 [facility] [id number] 2:19 m Range: 2.0-4.4 TSH 3.450 {uIU/mL} Comments: PATIENT NOT FASTINGPERFORMED BY: [facility] [id number] BY: [facility]6370 [facility] [id number] 2:19 (Normal) Range: 0.450-4.500 6-Azy-393196:30 Pathology Report Comments: PERFORMED BY: [facility] Zurno06492 [facility] [id number] Information: [id number] See MATER Comments: Material submitted: .FOREHEAD SHAVE [...] IN CASSETTE(S) A./CORCOR/CORPa thologist provided ICD-10:D48.5, L90.9CPT .168044 35-Mhf-45645:22 TESTOSTERONE FREE (47814) Comments: PATIENT WAS FASTINGPERFORMED BY: [employer] [facility] [id number] BY: [employer] [id number] Free Testosterone(Direct) 2.5 pg/mL (Abnormal) Range: 6.6-18.1 54-Dis-61539:22 VITAMIN B-12 (CYANOCOBALAMIN) Comments: PATIENT WAS FASTINGPERFORMED BY: [employer] [facility] [id number] BY: [employer] [id number] ([address]) Vitamin B12 638 pg/mL (Normal) Range: 211-946 87-Oil-95142:22 CBC W/AUTO DIFF WBC Comments: PATIENT WAS FASTINGPERFORMED BY: [employer]70 [facility] [id number] BY: [employer] [id number] Inf ormation: NURSE DRAW (30347) Immature Grans (Abs) 0.0 {x10E3/uL} (Normal) Range: [...] 4.14-5.80 WBC 7.3 {x10E3/uL} (Normal) Range: 3.4-10.8 77-Yjg-86180:22 METABOLIC PANEL, Comments: PATIENT WAS FASTINGPERFORMED BY: CB [facility] Fndsdg4198 [facility] [id number] BY: [facility] [address] [id number] [facility] ([address]) ALT (SGPT) 12 [iU]/L (Normal) Range: 0-44 [...] Glucose, Serum 100 mg/dL (Abnormal) Range: 65-99 69-Uax-21176:52 CBC W/Diff, Automated Comments: [facility] Rexwsrfaju0184 [place], [place], [address] Absolute Lymph 1.73 {X10_3/ul} (Normal) Range: 0.83-4.51 [...] 4.6-6.2 WBC 6.0 K/mm3 (Normal) Range: 4.4-11.0 03-Jnc-61426:52 Comprehensive Metabolic Profil Comments: [facility] Kkscvydtfq0462 [place], [address] GAP 6 (Normal) Range: 5-15 CO2 26.0 [...] (Normal) Range: 70-110 :52 Hemoglobin A1c Comments: [facility] [address] [place], [place], [address] HGB A1C 5.6 % (Normal) Range: 4.2-6.3 :52 Lipid Profile Comments: [facility] [address] [place], [address] VLDL 21 mg/dL (Normal) Range: [...] High Risk :52 Microalb:Creat Ratio,Random UR Comments: [facility] [address] [place], [place], [address] MALB:CREAT 9.1 {mg/g_CRE} (Normal) MICROALBUMIN,UR 9.0 mg/L (Normal) UR CREAT 99.50 mg/dL (Normal) :52 PSA,Total - Annual Screen Comments: [facility] [address] [place], [address] PSA,TOT SCREEN 0.51 ng/mL (Normal) Range: 0.00-4.00 Comments: This test was performed using the TPSA assay method for [employer] chemistry system. Values obtained with differentassay methods cannot be used interchangably.When changing PSA assays in the course of monitoring apatient, additional sequential testing should be carriedout to confirm baseline values. COLON BIOPSY (CHOOSE See Note (Normal) Comments: [facility] Ft[address]vfn[address] [place], [address] :45 SITE) Comments: Patient: YUMIKO LANDRUM : 1950 (64/M) Acct Num: [id number] Phys: ViktorErnestine belletracy Unit Num: [id number] Loc: LABSPEC Specimen: [id number] Received: 09/11/151646 Spec Type: C ZONIA BX [...] in one cassette. / IRON:momo 09/11 TC:1 CPT:40241 x2 HEADER OPERATION: Colonoscopy with biopsy PRE-OP DIAGNOSIS: Screening/polyp TISSUE SUBMITTED: A - Polyp cecum, R/O adenoma, B - Polyp sigmoid, R/O adenoma MICROSCOP IC DESCRIPTION Slides are reviewed. MICROSCOPIC DIAGNOSIS A. Polyp cecum, biopsy: Fragments of tubular adenoma. B. Polyp sigmoid, biopsy: Fragments of tubular adenoma. IRON:momo 09/15/15 Signed Pamella Son 09/15/15 <signature on file> 62-Rli-670488:37 CBC W/Diff, Automated Comments: [facility] [address]yssimaf[address] [place], [place], [address] ; noon-emergent till apt Absolute Lymph 1.39 [...] 4.6-6.2 WBC 6.5 K/mm3 (Normal) Range: 4.4-11.0 86-Sft-768556:37 Comprehensive Metabolic Profil Comments: [facility] Ikvpkojyfq7[address] [place], [place], [address] GAP 6 (Normal) Range: 5-15 CO2 27.0 [...] <126 mg/dLsuggests IMPAIRED HOMEOSTASIS per A.D.A. criteria. 77-Wmy-128734:37 Hemoglobin A1c Comments: [facility] Kkzovkylgn6115 [facility] [place], [address] HGB A1C 5.6 % (Normal) Range: 4.2-6.3 45-Hwq-162763:37 Lipid Profile Comments: [facility] Bgbmnxvkla8902 [facility] [place], [address] VLDL 17 mg/dL (Normal) Range: [...] 200-240 mg/dL Borderline >240 mg/dL High Risk 2-Efg-205220:12 Factor II, DNA Analysis Comments: [facility] (refer to report for specific site)refer to report for address and phone number COMMENT Comment (Normal) Comments: Genetic Counselors are available for health care providersto discuss results at [phone] (4139).Methodology:DNA analysis of the Factor II gene was performed by PCRamplification followed by restric tion analysis. Thediagnostic sensitivity is >99% for both. All the tests mustbe combined with clinical information for the most accurateinterpretation. Molecular-based testing is highly accurate,but as in any laboratory test, diagnostic errors may occur.Matthewt SR, et al. Blood. 1996; 88:7338-3064.Diallo EA. Circulation. 2004; 110:e15-e18.Bobby I, et al. Arterioscler Thromb Vasc Biol. 1999;19:700 -703.Lance Shea, PhDRuthie Cooper, PhDAnahy Delgado, Lorena Beal, Xiomara Easley, PhDKelly Benjamin, PhDPerformed at: TG - [facility] MNY0341 [place], [place] [id number] villa: Vilma Butterfield MD, Phone: [phone] FACTOR II,DNA Comment (Normal) Comments: NEGATIVENo mutation identified.Comment:A point mutation ([id number]) in the factor II (prothrombin)gene is the [...] individual mutations. This assaydetects only the prothrombin N02709Z mutation and doesnot measure genetic abnormalities elsewhere i n thegenome. Other thrombotic risk factors may be pursuedthrough systematic clinical laboratory analysis. Thesefactors include the R506Q ([place]) mutation in the Factor Vgene, plasma homocysteine levels , as well as testing fordeficiencies of antithrombin III, protein C and protein S. 10-Xzt-33078:42 Miscellaneous Comments: Comments: [id number],PLASMA,[facility](s) Ordered: [id number],PLASMA,[facility] [address]klf[address] [place], [address] Lab Procedure MISC Comments: TEST RESULT UNITS REFERENCE INTERVALAntithrombin III, Func/ImmunolAntithrombin Activity 97 % 75 - 135Antithrombin Antigen 97 % 75 - 130 LAB (Normal) TESTING PERFORMED AT [facility]. ORIGINAL REPORT ON FILE IN LAB CONTAINS ADDITIONAL TEST SITE INFORMATION. TEST 1 Throm 15.9 Comments: [facility] (refer to report for specific site)refer to report for address and phone number 9 bin {sec} Range: 0.0-20.0 - Time (Normal) Comments: Performed at: BN - [address] [id number] Director: Joseph Velez MD, Phone: [phone] F e b - 2 0 1 6 9 : 4 2 :34 CBC W/Diff, Automated Comments: [facility] [address]ij[address] [place], [place], [address] Absolute Lymph 1.34 {X10_3/ul} (Normal) Range: 0.83-4.51 [...] 4.6-6.2 WBC 5.3 K/mm3 (Normal) Range: 4.4-11.0 74-Tfx-43335:34 Comprehensive Comments: Comments: [id number],Gabriela PALMERWVUMed[facility] [address]vexq[address] [place], [address] ; apt today Metabolic Profil GAP 8 [...] for health careproviders to discuss results at [phone] ([phone]).Methodology:DNA analysis of the Factor V gene was [...] PhDBette lugo, PhDKelly Benjamin, PhDPerformed at: - LabCoJennifer Ville [address] [place], [place] [id number] Director: Joseph Velez MD, Phone: [phone] at: [facility] GIM[address] [place], [place] [id number] Director: Vilma Butterfield MD, Phone: [phone] FACTOR V LEIDEN Comment (Normal) Comments: Result: [...] in the workup for venous thrombosis include [id number] mutation in the factor II (prothrombin) gene,protein S and C deficiency, and antithrombin deficiencies.Anticardiolipin antibody and lupus anticoagu lant analysismay be appropriate for certain patients, as well ashomocysteine levels.Contact your local [facility] for information on how to orderadditional testing if desired. :34 Hemoglobin A1c Comments: [facility] [address] [place], [place], [id number] HGB A1C 5.6 % (Normal) Range: 4.2-6.3 :34 Lipid Profile Comments: Comments: [id number],[facility] [address]ml[address] [place], [address] VLDL 17 mg/dL (Normal) Range: [...] 200-240 mg/dL Borderline >240 mg/dL High Risk 34-Prs-62837:34 Miscellaneous Lab Comments: Comments: [id number],BLUEANDRED,FZTest(s) Ordered: [id number] BLAKE [facility] [address] [place], [address] Procedure MISC Comments: TEST RESULT UNITS REFERENCE [...] anticoagulant is not de tected. aCL and D8GM2avklxmhkpa are normal.ANTIPHOSPHOLIPID SYNDROME ASSESSMENT SUMMARY-No evidence of a lupus anticoagulant, B2GP1 or aCLantibodies. As antibody titers may fluctuate with time,repeat te sting may be indicated if antiphospholipid syndromeis suspected.ANTIPHOSPHOLIPID SYNDROME ASSESSMENT DEFINITIONS-aCL- anticardiolipin (antibodies to cardiolipin); Y2CY6-rlmnmmmero to Beta-2 Glycoprotein 1; LA- lupus anticoagulant(which is identified with the dRVVT and/or hexagonalphospholipid neutralization assays); aPL- antibodies toprotein/phospholipid complexes such as LA, aCL, and J9DU2bagbokdufb; APS- antiphospholipid syndrome; DTI-directthrombin inhibitors.-CHILLER TENDER:For questions regarding panel interpretation, please contactHalle Arrington [...] Mathews et al. J Thromb Haemost. 2009; 7(10):0460-2459.(2) Tyrone Lugo et al. J Thromb H aemost. 2006;4(2):295-306.(3) Keith DA et al. Blood. 2007;110(9): 7863-3548. TESTING PERFORMED AT [facility]. ORIGINAL REPORT ON FILE IN LAB [...] Range: 58-150 :54 CBC W/Diff, Automated Comments: [facility] [address] [place], [place], [id number] Absolute Lymph 1.61 {X10_3/ul} (Normal) Range: 0.83-4.51 [...] 4.6-6.2 WBC 7.1 K/mm3 (Normal) Range: 4.4-11.0 88-Trn-447542:54 Comprehensive Metabolic Profil Comments: [facility] [address] [place], [address] GAP 7 (Normal) Range: 5-15 CO2 26.0 [...] 7-18 GLU 98 mg/dL (Normal) Range: 70-110 24-Cat-123964:54 Lipid Profile Comments: [facility] [address] [place], [address] ; apt today VLDL 19 [...] 21-Sep-20148:55 Comprehensive Metabolic Profil Comments: Test performed at:[facility] R[address]suqkkwy6244 [facility] [place] [address] GAP 7 (Normal) Range: 5-15 [...] Comments: Please note revised CREATININE reference range pezenlfaq00/22/2015. BUN 15 mg/dL (Normal) Range: 7-18 GLU 103 mg/dL (Normal) Range: 70-110 :55 Hemoglobin A1c Comments: Test performed at:[facility] [address] [place] [address] HGB A1C 6.0 % (Normal) Range: 4.2-6.3 :55 Lipid Profile Comments: Test performed at:[facility] [address] [place] [address] VLDL 17 mg/dL (Normal) Range: 5-40 LDL [...] generated due to demographicSpecimen Comment: updates.Test performed at:[facility] Laboratory[address] [place] [address] dsDNA AB 12 {IU/mL} (Abnormal) Range: 0-9 Comments: Negative <5 Equivocal 5 - 9 Positive >9; ADDENDA: non-emergent because has apt today to discuss. 50-Gwb-449766:49 ANTINUCLEAR ANTIBODIES DIRECT Comments: Test performed at:[facility] [address] [place] [address] JOHN-DIRECT Positive (Abnormal) Comments: Performed at: [facility] Lab[address] [id number] Director: Reno Yanes PhD, Phone: [phone] 40-Lai-698851:49 CBC W/Diff, Automated Comments: Test performed at:[facility] [address] [facility]. [place] [address] Absolute Lymph 1.22 {X10_3/ul} (Normal) Range: 0.83-4.51 [...] :49 Comprehensive Metabolic Profil Comments: Test performed at:[facility] [address] [place] [address] GAP 6 (Normal) Range: 5-15 [...] Range: 70-110 :49 CRP Comments: Test performed at:[facility] [address] [place] [address] C-REACTIVE PROT < 2.90 mg/L (Normal) Range: 0.0-3.0 Comments: C-Reactive Protein (CRP) provides useful information for thediagnosis, therapy and monitoring of inflammatory processesand associated diseases. For the evaluation of Relative Riskfor Cardiovascular Dise ase, a High Sensitivity CRP (HSCRP)should be ordered. 76-Sxu-715079:49 Culture, Urine Comments: Test performed at:[facility] [address] [place] [address] CUUR See Note (Normal) Comments: Urine CultureCulture exhibits no growth.; ADDENDA: Pt has apt today, will discuss then 24-Urk-487012:49 Erythrocyte Sed Rate Comments: Test performed at:[facility] [address] [place] [address] SED RATE 21 mm/h (Abnormal) Range: 0-20 35-Pei-499404:49 Hemoglobin A1c Comments: Test performed at:[facility] [address] [place] [address] HGB A1C 5.8 % (Normal) Range: 4.2-6.3 24-Cfi-610376:49 Lipid Profile Comments: Test performed at:[facility] [address] [place] [address] VLDL 8 mg/dL (Normal) Range: [...] 200-240 mg/dL Borderline >240 mg/dL High Risk 44-Xhw-509289:49 Microalb:Creat Ratio,Random UR Comments: Test performed at:[facility] [address] [place] [address] MALB:CREAT 12.2 {mg/g_CRE} (Normal) MICROALBUMIN,UR 17.2 mg/L (Normal) UR CREAT 140.0 mg/dL (Normal) :49 PSA,Total - Annual Screen Comments: Test performed at:[facility] [address] [place] [address] PSA,TOT SCREEN 0.47 ng/mL (Normal) Range: 0.00-4.00 Comments: This test was performed using the TPSA assay method for [employer] chemistry system. Values obtained with differentassay methods cannot be used interchangably.When changing PSA assays in the course of monitoring apatient, additional sequential testing should be carriedout to confirm baseline values. :49 Thyroid Stim Hormone (TSH) Comments: Test performed at:[facility] [address] [place], [place] [address] TSH 1.60 {uIU/mL} (Normal) Range: 0.358-3.74 :49 Urinalysis, Complete Comments: How was Urine Obtained? Urine, RandomTest performed at:[facility] [address] [place], [place] [address] MUCUS, URINE 0 SEEN {/hpf} (Normal) BACTERIA [...] How was Urine Obtained? Urine, RandomTest performed at:[facility] [address]27[address] [place] [address] MUCUS, URINE 2+ {/hpf} (Normal) [...] (Normal) CLARITY Clear (Normal) COLOR Yellow (Normal) 83-Dsj-333956:07 Comprehensive Metabolic Profil Comments: Test performed at:[facility] [address]17[address] [facility] [place], [place] [id number] GAP 6 (Normal) Range: 5-15 CO2 28.0 [...] 7-18 GLU 108 mg/dL (Normal) Range: 70-110 70-Azn-781559:07 CPK Total, Creatine Kinase Comments: Test performed at:[facility] [address] [place] [address] CPK TOTAL 91 U/L (Normal) Range: 39-308 63-Iud-982555:56 Rapid Flu (01943 x 2) Influenza A Ag negative (Normal) 6-Uix-574662:28 URINE WARREN CULTURE-MASSIEL COL Comments: PATIENT NOT FASTINGPERFORMED BY: [facility] Vjmqdy7960 [facility] [id number] Information: SRC:UR [id number] COUNT (73885) Result 1 ECV (Abnormal) Comments: Escherichia coli, [...] R Urine Final report Culture,Comprehensi (Abnormal) ve 2-Zvc-567755:58 Urinalysis, Office (13360) UA - LEUKOCYTE ESTERASE Small (Normal) UA - NITRITE Negative (Normal) URINE UROBILINGN MASSIEL TIMED 2 mg/dL (Normal) UA - PROTEIN 30 mg/dL (Normal) UA - PH 6.0 (Normal) Comments: 5.5 UA - BLOOD Hemolyzed Small (Normal) UA - SPECIFIC GRAVITY 1.030 (Abnormal) UA - KETONES Negative mg/dL (Normal) UA - BILIRUBIN Small (Normal) UA - GLUCOSE Negative (Normal) 9-Lje-648978:41 URINE WARREN CULTURE-MASSIEL COL Comments: PATIENT NOT FASTINGPERFORMED BY: [facility] CenterBtgmad9809 [facility] [id number] Information: SRC: URINE COUNT (44125) Result 1 ECV (Abnormal) Comments: Escherichia coli, [...] R Urine Final report Culture,Comprehensi (Abnormal) ve 4-Mho-355842:27 Urinalysis, Office (15754) UA - LEUKOCYTE ESTERASE Trace (Normal) UA - NITRITE Negative (Normal) URINE UROBILINGN MASSIEL TIMED 2 mg/dL (Normal) UA - PROTEIN Negative mg/dL (Normal) UA - PH 6.0 (Normal) UA - BLOOD Negative (Normal) UA - SPECIFIC GRAVITY 1.010 (Normal) UA - KETONES Negative mg/dL (Normal) UA - BILIRUBIN Negative (Normal) UA - GLUCOSE Negative (Normal) 2-Bme-085831:30 HgA1C , Office (58323) HgA1C , Office 5.7 % (Normal) Range: 4.6 - 7.1 6-Zoy-327272:10 URINE WARREN CULTURE-MASSIEL COL Comments: PATIENT NOT FASTINGPERFORMED BY: [facility] CenterKdaklk0552 [facility] [id number] Information: SRC:UR [id number] COUNT (77694) Result 1 NG36 (Normal) Comments: No growth in 36 - 48 hours. Urine Culture,Comprehensive Final report (Normal) 0-Uls-078776:58 CBCD PATHR Reviewed (Normal) RBCM NORM C+C [...] 4.6-6.2 WBC 5.2 K/mm3 (Normal) Range: 4.4-11.0 4-Xmc-369149:58 CMP GAP 7 (Normal) Range: 5-15 CO2 [...] CHOL 155 mg/dL (Normal) Comments: <200 mg/dL Hnvzvwxjg017-016 mg/dL Borderline>240 mg/dL High Risk TRIG 121 [...] (Normal) UCLAR Clear (Normal) UCOL Yellow (Normal) 59-Jsi-155493:20 CUUR URC See Note (Normal) Comments: ESBL+ [...] >=320 R (NF) indicates non-formulary drug at [facility]. Approval by Infectious DiseaseSpecialist required before non-formulary drugs may beordered and/or dispensed. 91-Cdw-488377:20 UA Comments: How was Urine Obtained? CLEAN CATCH ANGE 500 /ul (Abnormal) MICA Negative (Normal) UOB 25 /ul (Abnormal) LEESA 6.0 (Normal) Range: 5.0 - 8.0 uPROTU 30 mg/dL (Abnormal) UROBU 1 mg/dL (Abnormal) KETU Negative mg/dL (Normal) SGU 1.015 (Normal) Range: 1.002-1.030 BILIU Negative mg/dL (Normal) GLUR Normal mg/dL (Normal) UCLAR Cloudy (Normal) UCOL Yellow (Normal) 41-Foo-423186:27 A1C 5.6 % (Normal) Range: 4.2-6.3 60-Zfg-848074:27 B12 574 pg/mL (Normal) Range: 211-911 42-Nci-166807:27 CBC MPV 8.8 fL (Normal) Range: 6.2-12.0 [...] 4.6-6.2 WBC 6.4 K/mm3 (Normal) Range: 4.4-11.0 70-Bjy-135006:27 CUUR URC Culture exhibits no growth. (Normal) 64-Bug-114794:27 EBGM EBNA 81.6 U/mL (Abnormal) Range: 0.0-17.9 Comments: Negative <18.0Equivocal 18.0 - 21.9Positive >21.9 tEBINT Comment (Normal) Comments: EBV Interpretation ChartInterpretation EBV-IgM VCA-IgG EBNA-IgG EA(D)-IgGEBV Seronegative - - - -Early Phase + - - -Acute Primary + + - +or-InfectionConvalescence/Past - + + +or-InfectionReactivated +or- + + +Infection+ Antibody Present - Antibody Absen tPerformed at: [facility] Lab[address] [id number] Director: Melquiades Hector MD, Phone: [phone] EBEAG <9.0 U/mL (Normal) Range: 0.0-8.9 Comments: [...] 4.6-6.2 WBC 6.0 K/mm3 (Normal) Range: 4.4-11.0 4-Yni-245038:36 CKMB Comments: Serial Specimen #1, #2 or #3? 1'TROP' Serial specimen #1, #2, #3, or #4: 1 CPKMB 1.6 ng/mL (Normal) Range: 0.0-5.0 Comments: CK-MB and RI Interpretation MB Relative IndexNon-AMI <or= 5 NAIndeterminate > 5 <or= 4AMI > 5 > 4 CPK 167 U/L (Normal) Range: 39-308 1-Gng-779178:36 TROP < 0.02 ng/mL (Normal) Comments: Serial Specimen #1, #2 or #3? 1'TROP' Serial specimen #1, #2, #3, or #4: 1 Comments: TROPONIN-I EXPECTED VALUES <0.05 NEGATIVE0.06 - 0.59 AT RISK OF MD> OR = 0.60 SUGGEST MD :47 HgA1C , Office (62160) HgA1C , Office 6.3 % (Normal) Range: [...] CHOL 147 mg/dL (Normal) Comments: <200 mg/dL Otbzqvjdp195-882 mg/dL Borderline>240 mg/dL High Risk :55 Rapid Flu (05478 x 2) Comments: neg Influenza A Ag negative (Normal) 4-Inu-845496:02 FECAL OCCULT- Tubes sent home (11169) FECAL OCCULT HGB ASSAY, QUAL, 1-3 negative (Normal) [facility] :39 B12 510 pg/mL (Normal) Range: 211-911 [...] {IU/mL} (Normal) Range: 0-100 Comments: Performed at: [facility] Lab[address] Director: Melquiades Hector MD, Phone: [phone] IMM 55 mg/dL (Normal) Range: 40-230 DEBBY 182 mg/dL (Normal) Range: 91-414 IMG 788 mg/dL (Normal) Range: 700-1600 :39 LDH 190 U/L (Normal) Comments: Serial Specimen #1, #2 or #3? 1Is Patient Taking Vitamins or Folic Acid Supplements? N Range: 84-246 :39 PROEL Comments: Is Patient Fasting? Y t46MGJJUS Comment (Normal) Comments: Protein electrophoresis scan will follow via computer,mail, or cloth carrier delivery. tPROELAG 1.6 (Normal) Range: 0.7-2.0 tPROELIN [...] Supplements? N Range: 250-450 :56 CULTURE, SPUTUM (09158) Comments: PATIENT NOT FASTINGPERFORMED BY: [facility] Jjcifg3473 [facility] [id number] Information: SRC:[facility] [id number] Result 1 RRF (Normal) Comments: Routine respiratory ashkan Lower Respiratory Culture Final report (Normal) :32 HgA1C , Office (09365) HgA1C , Office 5.9 % (Normal) Range: 4.6 - 7.1 :32 Blood Glucose , Office (03834) Blood Glucose , Office 90 (Normal) :51 [...] 4.6-6.2 WBC 7.2 {k/mm3} (Normal) Range: 4.4-11.0 97-Xye-833193:51 CMP GAP 9 (Normal) Range: 5-15 CO2 [...] CHOL 149 mg/dL (Normal) Comments: <200 mg/dL Xaldfrpoy832-728 mg/dL Borderline>240 mg/dL High Risk :51 PSA 0.51 ng/mL (Normal) Range: 0.00-4.00 Comments: This test was performed using the TPSA assay method for the[employer] chemistry system. Values obtained with differentassay methods cannot be used interchangably.When changing PSA assays in the course of monitoring apatient, additional sequential testing should be carriedout to confirm baseline values. 52-Vcp-416982:59 MISC (Normal) Comments: TEST RESULT LIMITSAntinuclear Antibodies, [...] 4.6-6.2 WBC 7.8 {k/mm3} (Normal) Range: 4.4-11.0 09-Spl-854003:32 CMP GAP 10 (Normal) Range: 5-15 CO2 [...] CHOL 154 mg/dL (Normal) Comments: <200 mg/dL Qwicioyjk978-197 mg/dL Borderline>240 mg/dL High Risk HDL 64 [...] TSH 1.77 {uIU/mL} (Normal) Range: 0.358-3.74 :32 [facility] 0 SEEN {/hpf} (Normal) UBAC 0 [...] (Normal) UCLAR Clear (Normal) UCOL Yellow (Normal) 72-Jji-553120:11 AFBCS tAFBC See Note Comments: TESTING PERFORMED AT [facility]. ORIGINAL REPORT ONFILE IN LAB CONTAINS ADDITIONAL TEST SITE INFORMATION. (Normal) CULTURE, ACID FAST FINAL CULTURE REPORT TO FOLLOW IN 6 WEEKS. tAFBSF See Note Comments: TESTING PERFORMED AT [facility]. ORIGINAL REPORT ONFILE IN LAB CONTAINS ADDITIONAL TEST SITE INFORMATION. (Normal) ACID FAST BACILLUS SMEARAcid Fast Smear from Concentrated Specimen :Negative 78-Ork-034720:11 CUFST FUNST See Note Comments: TESTING PERFORMED AT [facility]. ORIGINAL REPORT ONFILE IN LAB CONTAINS ADDITIONAL TEST SITE INFORMATION. (Normal) FUNGUS STAIN No yeast or mold observed. CUF See Note Comments: TESTING PERFORMED AT [facility]. ORIGINAL REPORT ONFILE IN LAB CONTAINS ADDITIONAL TEST SITE INFORMATION. (Normal) CULTURE, FUNGUSNO YEAST OR MOLD ISOLATED AFTER 4 WEEKS. 28-Ife-691566:11 CUSP RESPC See Note (Normal) Comments: No [...] BACILLUS SMEARNO ACID-FAST BACILLI OBSERVED ON SMEAR. 70-Tsu-410023:23 CUFST FUNST See Note Comments: TESTING PERFORMED AT [facility]. ORIGINAL REPORT ONFILE IN LAB CONTAINS ADDITIONAL TEST SITE INFORMATION. (Normal) FUNGUS STAIN No yeast or mold observed. CUF See Note Comments: TESTING PERFORMED AT [facility]. ORIGINAL REPORT ONFILE IN LAB CONTAINS ADDITIONAL TEST SITE INFORMATION. (Normal) CULTURE, FUNGUSNO YEAST OR MOLD ISOLATED AFTER 4 WEEKS. 30-Vof-273182:21 AFBCS tAFBC See Note Comments: TESTING PERFORMED AT [facility]. ORIGINAL REPORT ONFILE IN LAB CONTAINS ADDITIONAL TEST SITE INFORMATION. (Normal) CULTURE, ACID FAST FINAL CULTURE REPORT TO FOLLOW IN 6 WEEKS. Tirso See Note Comments: TESTING PERFORMED AT [facility]. ORIGINAL REPORT ONFILE IN LAB CONTAINS ADDITIONAL TEST SITE INFORMATION. (Normal) ACID FAST BACILLUS SMEARAcid Fast Smear from Concentrated Specimen :Negative 43-Nvb-268779:21 CUFST FUNST See Note Comments: TESTING PERFORMED AT [facility]. ORIGINAL REPORT ONFILE IN LAB CONTAINS ADDITIONAL TEST SITE INFORMATION. (Normal) FUNGUS STAIN YEAST OBSERVED CUF See Note Comments: [facility] ORIGINAL REPORT ONFILE IN LAB CONTAINS ADDITIONAL TEST SITE INFORMATION. (Normal) CULTURE, FUNGUSNO YEAST OR MOLD ISOLATED AFTER 4 WEEKS. 16 AFBSTN SEE Comments: Specimen submitted to Anatomical Pathology Department [facility]. - PATHOLOGY ay REPORT -2 (Normal) 32 2: 00 16 AFBSTN SEE Comments: PATIENT BROUGHT SPECIMEN IN ON 07/11/12. - PATHOLOGY Comments: Specimen submitted to Anatomical Pathology Department fortesting. ay REPORT -2 (Normal) 30 :0 0 12 AFBSTN SEE Comments: PATIENT BROUGHT SPECIMEN IN ON 07/11/12 - PATHOLOGY Comments: Specimen submitted to Anatomical Pathology Department [facility]. ay REPORT -2 (Normal) 39 :0 0 14-Pcs-624178:05 WARREN CULTURE-OTHER (47142) Comments: PATIENT NOT FASTINGPERFORMED BY: [facility] Mjliyd9125 [facility] [id number] Information: SRC: THROAT Result 1 RRF (Normal) Comments: Routine respiratory ashkan Upper Respiratory Culture Final report (Normal) 57-Xgn-605301:23 Rapid Strep Test, Office (05802) Rapid Strep Test, Office Negative (Normal) 5-Ecf-787503:15 CBCMD RBCM NORM C+C {NORMAL} (Normal) PE [...] 4.6-6.2 WBC 8.3 K/mm3 (Normal) Range: 4.4-11.0 8-Fqg-551652:15 CMP GAP 10 (Normal) Range: 5-15 CO2 [...] 7-18 GLU 81 mg/dL (Normal) Range: 70-110 0-Omn-410576:15 LIPID VLDL 12 mg/dL (Normal) Range: 5-40 [...] Alvarado M.D.January 27, 2012 at 2:39:03 PM [id number] Signed GP/GP If you are the refe rring physician and would like to consult with theradiologist who provided this interpretation, please contact Itzel Linares at [phone]. If this radiologist is unavailable, youwill be dir ected to another radiologist to assist. If you are a patient with a question regarding this report, pleasecontactyour referring physician directly. Professional Interpretation Provided By: [employer], Phone , These documents contain legally protected [...] Schwarz D.O.January 26, 2012 at 8:55:02 PM [id number] Signed BE/B E If you are the referring physician and would like to consult with theradiologist who provided this interpretation, please contact Yogi Schwarz D.O. at [phone]. If this radiologist is unavailable, yo u will bedirected to another radiologist to assist. If you are a patient with a question regarding this report, pleasecontactyour referring physician directly. Professional Interpretation Provided By: [employer], Phone , These documents contain legally protected [...] 01/26/12 2100 Sign by: Yogi Schwarz MD 68-Fth-286732:13 CUSP RESPC See Note (Normal) Comments: No [...] GRAM POSITIVE COCCI IN CHAINS AND CLUSTERS 41-Ayv-710025:56 HgA1C , Office (01524) HgA1C , Office 6.1 % (Normal) Range: 4.6 - 7.1 64-Pkn-066839:56 Blood Glucose , Office (67984) Blood Glucose , Office 116 (Normal) : [...] :01 TSH 1.98 {uIU/mL} (Normal) Range: 0.358-3.74 48-Pao-649179:25 CMP GAP 7 (Normal) Range: 5-15 CO2 [...] performed using the TPSA assay method for the[employer] chemistry system. Values obtained with differentassay methods cannot be used interchangably.When ch anging PSA assays in the course of monitoring apatient, additional sequential testing should be carriedout to confirm baseline values. :25 [facility] 0 SEEN {/hpf} (Normal) UBAC 0 [...] UCOL YELLOW (Normal) :44 HgA1C , Office (81120) HgA1C , Office 6.3 % (Normal) Range: 4.6 - 7.1 :44 Blood Glucose , Office (58822) Blood Glucose , Office 114 (Normal) :13 HgA1C , Office (66652) HgA1C , Office 6.2 % (Normal) Range: 4.6 - 7.1 :13 Blood Glucose , Office (83173) Blood Glucose , Office 100 (Normal) :55 HgA1C , Office (09389) HgA1C , Office 5.8 % (Normal) Range: 4.6 - 7.1 :55 Blood Glucose , Office (64066) Blood Glucose , Office 85 (Normal) :51 WARREN CULTURE-OTHER (03719) Comments: PATIENT NOT FASTINGPERFORMED BY: [facility] CenterHajuog8344 [facility] [id number] Information: SRC:THRT [id number] Result 1 Yeast isolated. (Normal) Comments: Heavy growthRequest for further identification must be madewithin 1 week. Upper Respiratory Culture Final report (Normal) :14 Rapid Strep Test, Office (55972) Rapid Strep Test, Office Negative (Normal) :24 [...] serialsampling is recomme nded. TESTING PERFORMED AT [facility]. ORIGINAL REPORT ON FILE IN LAB CONTAINS [...] cells for the productionof interferon gamma.Performed at: [facility] Lab[address] [id number] Director: Joseph Velez MD, Phone: [phone] QFT AG - NIL 0 {IU/mL} (Normal) [...] >240 mg/dL High Risk :03 VIT D,25 43355 38.0 ng/mL (Normal) Comments: appt 03-08-10 Range: 32.0-100.0 Comments: Effective January 11, 2011 Vitamin D, 25-Hydroxy reference intervals will be changing to 30-100. .Recent studies consider the lower li chilo of 32.0 ng/mL to be athreshold for optimal health.Mark LUDWIG. J Nutr. 2004;135(2):317-22.Performed at: [facility] Lab[address] Director: Lakshmi Pino MD, Phone: [phone] VITAMIN B12 696 pg/mL (Normal) Range: 254-1320 Comments: There is a low frequency possibility that high titers ofintrinsic blocking antibodies may not be completely inactivated during the reaction pretreatment stepof this testing method. If test results are i n conflictwith the clinical diagnosis, patient should be testedfor the presence of intrinsic factor blocking antibodies. 67-Lvt-883743:05 Rapid Strep Test, Office (93283) Rapid Strep Test, Office Negative (Normal) :00 CULTURE, THROAT See Note (Normal) Comments: Normal throat ashkan isolated. No beta-hemolyticstreptococcus isolated. 41-Pib-00842:00 CHEST WITHOUT CONTRAST Radiology Report See Note [...] 10/11/10 0244 Sign by: Clarke Butt MD 16-Duj-593276:58 GALLBLADDER Radiology Report See Note (Normal) Comments: [...] 10/08/10 1402 Sign by: Jake Alvarado MD 24-Jrt-02672:00 CULTURE, URINE URINE CULTURE See Note {CFU/mL} (Normal) Comments: COLONY COUNT <1000 ORGANISM 1: MIXED GRAM POSITIVE ORGANISMS 77-Dsk-330450:19 Urinalysis, Office (36974) UA - BILIRUBIN Negative (Normal) UA - BLOOD Non Hemolyzed Trace (Normal) UA - GLUCOSE Negative (Normal) UA - KETONES Negative mg/dL (Normal) UA - LEUKOCYTE ESTERASE Negative (Normal) UA - NITRITE Negative (Normal) UA - PH 7.0 (Normal) UA - PROTEIN Negative mg/dL (Normal) UA - SPECIFIC GRAVITY 1.010 (Normal) URINE UROBILINGN MASSIEL TIMED Normal mg/dL (Normal) 33-Cje-32817:00 ABDOMEN/PELVIS WITHOUT CONT Radiology Report See Note [...] on 10/05/101954 by ITS IMPORTSign by Deshawn Maire MD on 10/05/101955 Sign by: Deshawn Marie [...] on 09/16/101715 Sign by: Cosmo Mahmood MD 92-Eiv-275173:11 HgA1C , Office (02597) HgA1C , Office 6.2 % (Normal) Range: 4.6 - 7.1 :11 Blood Glucose , Office (51460) Blood Glucose , Office 90 (Normal) :28 [...] mg/dL High Risk :53 HgA1C , Office (41714) HgA1C , Office 6.4 % (Normal) Range: 4.6 - 7.1 :53 Blood Glucose , Office (26807) Blood Glucose , Office 108 (Normal) :39 CULTURE, URINE URINE CULTURE Culture exhibits no growth. (Normal) :54 Urinalysis, Office (29313) UA - BILIRUBIN Negative (Normal) UA - BLOOD Negative (Normal) UA - GLUCOSE Negative (Normal) UA - KETONES Negative mg/dL (Normal) UA - LEUKOCYTE ESTERASE Negative (Normal) UA - NITRITE Negative (Normal) UA - PH 7.0 (Normal) UA - PROTEIN Negative mg/dL (Normal) UA - SPECIFIC GRAVITY 1.010 (Normal) URINE UROBILINGN MASSIEL TIMED Normal mg/dL (Normal) :37 HgA1C , Office (33629) HgA1C , Office 6.1 % (Normal) Range: 4.6 - 7.1 :37 Blood Glucose , Office (84058) Blood Glucose , Office 96 (Normal) :46 [...] 4.6-6.2 WBC 7.5 K/mm3 (Normal) Range: 4.4-11.0 97-Vnb-557059:46 COMP METABOLIC GAP 7 (Normal) Range: 5-15 [...] (Normal) Range: 0.0-4.0 :22 HgA1C , Office (18569) HgA1C , Office 6.1 % (Normal) Range: 4.6 - 7.1 :22 Blood Glucose , Office (11059) Blood Glucose , Office 123 (Normal) :47 HgA1C , Office (63798) HgA1C , Office 6.3 % (Normal) Range: 4.6 - 7.1 :47 Blood Glucose , Office (64777) Blood Glucose , Office 103 (Normal) :05 [...] (Normal) GLU 107 mg/dL (Normal) Range: 70-110 59-Vpv-93329:05 LIPID HDL 58 mg/dL (Normal) Comments: Reference RangeHDL <40 mg/dL Low HDL CholesterolHDL >or= 60 mg/dL High HDL Cholesterol LDL 77 mg/dL (Normal) Range: 0-130 VLDL 7 mg/dL (Normal) Range: 5-40 CHOL 142 mg/dL (Normal) Comments: <200 mg/dL Uszpnagmv242-818 mg/dL Borderline>240 mg/dL High Risk TRIG 35 mg/dL (Normal) Comments: Serum Triglycerides Reference IntervalNormal <150 mg/dLBorderline high 150 - 199 mg/dLHigh 200 - 499 mg/ dLVery High > or = 500 mg/dL 1-Ozp-333353:24 HgA1C , Office (32760) HgA1C , Office 6.2 % (Normal) Range: 4.6 - 7.1 1-Okf-406151:23 Blood Glucose , Office (00086) Blood Glucose , Office 96 (Normal) 39-Piq-317247:07 GASTRIC EMPTYING STUDY Radiology Report See Note (Normal) Comments: Exam Number: [id number] GASTRIC EMPTYING STUDY A gastric emptying study was performed. The patient ingested 1 mCi ybEz22k Sulfur colloid with oatmeal. HISTORYThis is a 58-year-old male patie nt with hist ory of bloating andgastroesophageal reflux. FINDINGSAt 1 hour, there is complete emptying of the stomach of theradiopharmaceutical. This is a normal study. IMPRESSIONNormal examination. There is no e vidence of gastric retention. Reported By: WILFREDO ALVARADO 8-Qgq-590045:33 HgA1C , Office (62092) HgA1C , Office 5.9 % (Normal) Range: 4.6 - 7.1 :33 Blood Glucose , Office (40110) Blood Glucose , Office 111 (Normal) :08 [...] Range: 0.0-4.0 :46 Blood Glucose , Office (29246) Blood Glucose , Office 156 (Normal) :46 HgA1C , Office (11594) HgA1C , Office 5.8 % (Normal) Range: 4.6 - 7.1 :12 HgA1C , Office (82060) Comments: done HgA1C , Office 5.8 % (Normal) Range: 4.6 - 7.1 :12 Blood Glucose , Office (62730) Comments: done Blood Glucose , Office 99 [...] mg/dL (Normal) Range: 200-370 Comments: Performed At: [address] [id number] Blood Glucose , Office (60754) Blood Glucose , Office 92 (Normal) :44 HgA1C , Office (76424) HgA1C , Office 5.7 % (Normal) Range: 4.6 - 7.1 :40 GLU GTT-2 HOUR 191 mg/dL (Abnormal) Comments: 2HR GTT GLU 2 HR GLU GTT-2 HOUR from 216:[id number]. Range: 70-120 :20 GLU GTT-1 HOUR 178 mg/dL (Abnormal) Comments: 2HR GTT GLU 1 HR GLU GTT-1 HOUR from 216:[id number]. Range: 120-170 :40 GLU GTT-30 min. 183 mg/dL (Abnormal) Comments: 2HR GTT GLU 1/2 HR GLU GTT-30 min. from 216:A56872U. Range: 110-170 :01 GLU GTT-FASTING 106 mg/dL (Normal) Comments: 2HR GTT FASTING GLU GTT-FASTING from 216:S35451R. Range: 70-110 Comments: GLUCOSE TOLERANCE TEST Reference [...] was performed using the TPSA method for theLandis+GyrTip or Skip chemistry system.Values obtained with different assay methods [...] :12 TSH 1.38 {uIU/mL} (Normal) Range: 0.34-4.82 93-Inh-35741:03 CHEST WITH CONTRAST Radiology Report See Note (Normal) Comments: Exam Number: [id number] CHEST CT WITH INTRAVENOUS CONTRAST. REASON FOR [...] No growth in 5 6:14 days. (Normal) 3-Gwg-307257:14 CBCD,SMEAR DIFF BAND 1 % (Normal) Range: [...] 47-70 WBC 5.6 K/mm3 (Normal) Range: 4.4-11.0 2-Joo-747822:14 COMP METABOLIC A/G 1.2 {RATIO} (Normal) Range: [...] T PROT 6.3 g/dL (Abnormal) Range: 6.4-8.2 06-Cxm-981217:19 EBVIgG/M 010974 EB-EA IgG 33111 79 AU/mL (Normal) Range: 0-99 Comments: Negative <100 Equivocal 100 - 120 Positive >120 EB-NAg [id number] 656 AU/mL (Abnormal) Range: 0-99 Comments: Negative <100 Equivocal 100 - 120 Positive >120 EB-VCA [id number] 2296 AU/mL (Abnormal) Range: 0-99 Comments: Negative <100 Equivocal 100 - 120 Positive >120 EB-VCA [id number] 9 AU/mL (Normal) Range: 0-99 Comments: Negative [...] Antibody Present - Antibody AbsentPerformed At: [facility] [place], [place] [id number] 32-Tqd-939600:00 CULTURE, THROAT See Note (Normal) Comments: Normal throat ashkan isolated. No beta-hemolyticstreptococcus isolated. 76-Zxu-781987:35 Rapid Strep Test, Office (30700) Rapid Strep Test, Office Negative (Normal) :40 [...] 11/09/06 TC:5 REPORT SIGNED: JOSE MIGUEL SONSHI 11/10/0607-Nov-200634-Vot-098979:55 ALDOLASE 2030 2.3 U/L (Normal) Range: 1.2-7.6 Comments: Performed At: [facility] [place], [place] [id number] At: [facility] [id number] 61-Pli-673968:55 JOHN-D [id number] JOHN-DIRECT 9 U/mL (Normal) Range: 0-99 Comments: [...] 4.9 {IU/mL} (Normal) Range: 0.0-13.9 :55 TESTOST [id number] TESTOSTER %FREE 2.87 % (Normal) Range: 1.50-4.20 [...] Report See Note (Normal) Comments: Exam Number: [id number] TESTICULAR ULTRASOUND HISTORYTesticular swelling. High resolution real [...] Reported By: MAYELIN DE LA FUENTE M.D. 0-Gkw-421843:45 HIP, MIN 2 VIEWS Radiology Report See Note (Normal) Comments: Exam Number: [id number] FIVE VIEW LUMBAR SPINE AP, LATERAL, BOTH [...] Report See Note (Normal) Comments: Exam Number: [id number] FIVE VIEW LUMBAR SPINE AP, LATERAL, BOTH [...] degenerative changes. Reported By: REMIGIO PURCELL M.D. 4-Mrt-201095:44 HIP, MIN 2 VIEWS Radiology Report See Note (Normal) Comments: Exam Number: [id number] FIVE VIEW LUMBAR SPINE AP, LATERAL, BOTH [...] degenerative changes. Reported By: REMIGIO PURCELL M.D. 21-Krb-975841:43 CHEST, PA AND LATERAL Radiology Report See Note (Normal) Comments: Exam Number: [id number] PA AND LATERAL CHEST HISTORYShortness of breath. [...] 15, 2005. Reported By: EDVIN MARIE M.D. 61-Euf-792262:25 ALDOLASE 2030 3.0 U/L (Normal) Range: 1.2-7.6 Comments: Performed At: [address] [id number] 36-Lap-594651:25 JOHN-D [id number] JOHN-DIRECT 46 U/mL (Normal) Range: 0-99 Comments: Negative <100 Equivocal 100 - 120 Positive >120 10-Bvk-738584:25 C-REACTIVE PROT 1.07 mg/L (Normal) Range: 0.0-6.0 Comments: Test performed using the Dimension C-Reactive ProteinExtended Range assay method. This assay meets the AHA/CDC 2003 recommendations fordetermining patients at high risk for cardiovasculardisease. Reference: High risk CRP >3.0 mg/L 67-Gmv-340924:25 CBCD BASO% 0.4 % (Normal) Range: 0-1 [...] CPK TOTAL 172 U/L (Normal) Range: 35-232 92-Lxj-325751:25 ESR SED RATE 13 mm/h (Normal) Range: 0-20 58-Jjr-133955:25 RA LATEX 6502 5.2 {IU/mL} (Normal) Range: [...] morphology Planned Observations CBC W/AUTO DIFF WBC (34474)Indication: Hypertension, benign On: 86-Dcy-66381:51 Request METABOLIC PANEL, COMPREHENSIVE (49707)Indication: Hypertension, benign On: 97-Krq-69611:51 Request LIPID PANEL (36613)Indication: Other hyperlipidemia On: :50 Request CULTURE,FUNGUS W/STAIN 433955 (97943)Indication: Bronchiectasis On: :59 Request CULTURE, SPUTUM (81731)Indication: Moderate persistent asthma without complication On: :21 Request HGB A1C (50883)Indication: Abnormal glucose tolerance test On: :10 Request CBC with auto diff (60556)Indication: Abnormal glucose tolerance test On: :10 Request METABOLIC PANEL, COMPREHENSIVE (35085)Indication: Abnormal glucose tolerance test On: : Request LIPID PANEL (68105)Indication: Other hyperlipidemia On: :10 Request PSA (PROSTATE SPECIFIC ANTIGEN) (V76.44)Indication: Encounter for screening for malignant neoplasm of prostate (Renamed from Screening for prostate cancer) On: :09 Request METABOLIC PANEL, COMPREHENSIVE (08306)Indication: Essential hypertension On: 5-Nwv-749413:58 Request CBC with auto diff (16894)Indication: Hypertension, benign On: :53 Request METABOLIC PANEL, COMPREHENSIVE (73514)Indication: Abnormal glucose tolerance test On: :52 Request MICROALBUMIN: CREATININE RATIO (02196) AND (49787)Indication: Abnormal glucose tolerance test On: :52 Request HGB A1C (34485)Indication: Abnormal glucose tolerance test On: :52 Request LIPID PANEL (68380)Indication: Other hyperlipidemia On: :52 Request LIPID PANEL (15776)Indication: Other hyperlipidemia On: 5-Qbu-685614:30 Request CBC W/AUTO DIFF WBC (72607)Indication: Hypertension, benign On: :29 Request METABOLIC PANEL, COMPREHENSIVE (67765)Indication: Hypertension, benign On: 3-Biq-810719:29 Request IMMUNOGLOBULIN G (IgG) (79674)Indication: Abnormal blood chemistry On: 66-Fpm-892633:02 Request Comments: PLEASE DRAW WITH OTHER LABS IN 2016 serum free light chains (78077)Indication: Abnormal blood chemistry On: 40 Request serum immunofixation (04556)Indication: Abnormal blood chemistry On: 40 Request PSA (PROSTATE SPECIFIC ANTIGEN) (V76.44)Indication: Encounter for screening for malignant neoplasm of prostate (Renamed from Screening for prostate cancer) On: 40 Request LIPID PANEL (22817)Indication: Other hyperlipidemia On: Request CBC with auto diff (37066)Indication: Abnormal glucose tolerance test On: :39 Request METABOLIC PANEL, COMPREHENSIVE (48074)Indication: Abnormal glucose tolerance test On: 39 Request MICROALBUMIN: CREATININE RATIO (18775) AND (34023)Indication: Abnormal glucose tolerance test On: 39 Request HGB A1C (70339)Indication: Abnormal glucose tolerance test On: 39 Request LIPID PANEL (20758)Indication: Other hyperlipidemia On: :58 Request urine immunofixation (65056)Indication: Abnormal blood chemistry On: :34 Request serum immunofixation (80435)Indication: Abnormal blood chemistry On: :34 Request MICROALBUMIN: CREATININE RATIO (01671) AND (22196)Indication: Abnormal glucose tolerance test On: :32 Request HGB A1C (96846)Indication: Abnormal glucose tolerance test On: :32 Request CBC W/AUTO DIFF WBC (47740)Indication: Hypertension, benign On: :30 Request METABOLIC PANEL, COMPREHENSIVE (78356)Indication: Hypertension, benign On: :30 Request LIPID PANEL (03623)Indication: Other hyperlipidemia On: :30 Request LIPOPROTEIN, BLD, BY NMR (38787)Indication: Other hyperlipidemia On: 71-Grj-579752:14 Request CBC WITH MANUAL DIFF (07083)Indication: Essential hypertension On: 39-Tgr-941465:14 Request Metabolic Panel, Comprehensive (87614)Indication: Essential hypertension On: 34-Dzj-424672:14 Request CBC W/AUTO DIFF WBC (16796)Indication: Abnormal glucose tolerance test On: : Request LIPOPROTEIN, BLD, BY NMR (80855)Indication: Other hyperlipidemia On: : Request METABOLIC PANEL, COMPREHENSIVE (24561)Indication: Abnormal glucose tolerance test On: : Request Anti-TPO Antibody (95899)Indication: Abnormal blood chemistry On: Request T4, FREE (THYROXINE) (87062)Indication: Abnormal blood chemistry On: Request T3, FREE (TRIDOTHYRONINE) (74331)Indication: Abnormal blood chemistry On: Request TSH (93838)Indication: Abnormal blood chemistry On: : Request P-ANCA & C-ANCA (ANCA PROFILE) 40169 x2 and 12427 q1Pvzimzsdlk: Acute recurrent maxillary sinusitis On: Request JOHN (ANTINUCLEAR ANTIBODY) (82999)Indication: Abnormal blood chemistry On: : Request RHEUMATOID FACTOR-QUANT (39720)Indication: Abnormal blood chemistry On: : Request SED RATE ERYTHROCYTE (30347)Indication: Abnormal blood chemistry On: Request C-REACTIVE PROTEIN (72812)Indication: Abnormal blood chemistry On: :56 Request CBC with auto diff (12970)Indication: Hypertension, benign On: : Request MICROALBUMIN: CREATININE RATIO (67610) AND (42770)Indication: Abnormal glucose tolerance test On: : Request METABOLIC PANEL, COMPREHENSIVE (87286)Indication: Abnormal glucose tolerance test On: : Request HGB A1C (06725)Indication: Abnormal glucose tolerance test On: : Request METABOLIC PANEL, COMPREHENSIVE (13603)Indication: Hypertension, benign On: : Request LIPID PANEL (21035)Indication: Other hyperlipidemia On: : Request PSA (PROSTATE SPECIFIC ANTIGEN) (V76.44)Indication: Encounter for screening for malignant neoplasm of prostate (Renamed from Screening for prostate cancer) On: 13-Aax-783130:59 Request Factor 2 (Prothrombin) Gene Mutation (72811)Indication: Other symptoms involving cardiovascular system On: 4-Yxh-795824:13 Request MICROALBUMIN: CREATININE RATIO (69637) AND (98635)Indication: Abnormal glucose tolerance test On: :53 Request HGB A1C (55365)Indication: Abnormal glucose tolerance test On: :53 Request LIPID PANEL (01785)Indication: Other hyperlipidemia On: :53 Request CBC W/AUTO DIFF WBC (81148)Indication: Hypertension, benign On: :53 Request METABOLIC PANEL, COMPREHENSIVE (60611)Indication: Hypertension, benign On: :53 Request CBC with auto diff (40679)Indication: Hypertension, benign On: 3-Hmd-109532: Request METABOLIC PANEL, COMPREHENSIVE (45764)Indication: Hypertension, benign On: :25 Request LIPID PANEL (12047)Indication: Other hyperlipidemia On: 7-Stp-953677:25 Request Factor V Leiden (59562)Indication: Deep vein thrombosis of lower extremity On: 77-Btb-535372:24 Request CLOTTING FACTOR II (39386)Indication: Deep vein thrombosis of lower extremity On: 39-Zxb-909077:24 Request ANTITHROMBIN III ACTIVTY (75541)Indication: Deep vein thrombosis of lower extremity On: 16-Xhn-315913:24 Request Antiphospholipid atb (85470)Indication: Deep vein thrombosis of lower extremity On: 07-Acc-345794:24 Request Protein C Profile (29127)Indication: Deep vein thrombosis of lower extremity On: 97-Yqs-694227:24 Request Protein S Profile (67999)Indication: Deep vein thrombosis of lower extremity On: 51-Efj-316504:24 Request Hemoglobin Glyclated (HGB A1C) (29983)Indication: Abnormal glucose tolerance test On: 34-Ixm-897649:23 Request CBC W/AUTO DIFF WBC (33899)Indication: Abnormal glucose tolerance test On: 8-Uaf-887277:43 Request MICROALBUMIN: CREATININE RATIO (96324) AND (84280)Indication: Abnormal glucose tolerance test On: :43 Request METABOLIC PANEL, COMPREHENSIVE (17288)Indication: Abnormal glucose tolerance test On: :43 Request LIPID PANEL (46237)Indication: Other hyperlipidemia On: 43 Request DNA ANTIBODY-NATV/DBL ST (07195)Indication: Heart disease, unspecified On: 59-Pye-042155:02 Request METABOLIC PANEL, COMPREHENSIVE (80149)Indication: Essential hypertension On: : Request LIPID PANEL (57593)Indication: Other hyperlipidemia On: :31 Request Hemoglobin Glyclated (HGB A1C) (07778)Indication: Abnormal glucose tolerance test On: :31 Request PSA (PROSTATE SPECIFIC ANTIGEN) (V76.44)Indication: Benign prostatic hyperplasia with lower urinary tract symptoms, unspecified morphology On: 84-Wyj-643406:52 Request MICROALBUMIN: CREATININE RATIO (37553) AND (56688)Indication: Abnormal glucose tolerance test On: :50 Request Hemoglobin Glyclated (HGB A1C) (57032)Indication: Abnormal glucose tolerance test On: :50 Request URINE WARREN CULTURE (MASSIEL COL COUNT) (25484)Indication: Muscle weakness On: :48 Request URINALYSIS, W/ MICRO (15753)Indication: Muscle weakness On: :48 Request CBC with auto diff (51474)Indication: Muscle weakness On: :48 Request JOHN (ANTINUCLEAR ANTIBODY) (58288)Indication: Muscle weakness On: :48 Request SED RATE ERYTHROCYTE (42866)Indication: Muscle weakness On: :48 Request C-REACTIVE PROTEIN (38387)Indication: Muscle weakness On: :48 Request TSH (88584)Indication: Muscle weakness On: :48 Request LIPID PANEL (58379)Indication: Other hyperlipidemia On: :47 Request METABOLIC PANEL, COMPREHENSIVE (79989)Indication: Other hyperlipidemia On: 38-Chf-814939:46 Request URINE WARREN CULTURE-MASSIEL COL COUNT (90554)Indication: Other abnormal finding of urine On: 0-Iby-921481:42 Request LIPID PANEL (90108)Indication: Other hyperlipidemia On: :44 Request CBC W/AUTO DIFF WBC (42446)Indication: Essential hypertension On: :44 Request METABOLIC PANEL, COMPREHENSIVE (26868)Indication: Essential hypertension On: :44 Request URINE WARREN CULTURE-MASSIEL COL COUNT (48275)Indication: Other abnormal finding of urine On: :00 Request Comments: ADD ON MICROALBUMIN: CREATININE RATIO (09419) AND (47299)Indication: Essential hypertension On: : Request URINALYSIS, W/ MICRO (64259)Indication: Essential hypertension On: : Request METABOLIC PANEL, COMPREHENSIVE (37599)Indication: Essential hypertension On: : Request LIPID PANEL (34456)Indication: Other hyperlipidemia On: : Request CBC WITH MANUAL DIFF (66863)Indication: Iron deficiency On: : Request URINE WARREN CULTURE (MASSIEL COL COUNT) (98337)Indication: Fatigue On: :46 Request MICROALBUMIN: CREATININE RATIO (19225) AND (05023)Indication: Abnormal glucose tolerance test On: :46 Request Hemoglobin Glyclated (HGB A1C) (45118)Indication: Abnormal glucose tolerance test On: :46 Request IRON BINDING CAPACITY (TIBC) (18723)Indication: Anemia, unspecified On: :42 Request FERRITIN (64606)Indication: Anemia, unspecified On: :42 Request IRON (76507)Indication: Anemia, unspecified On: :42 Request VITAMIN B-12 (CYANOCOBALAMIN) (52863)Indication: Fatigue On: :42 Request CBC (AUTO) (44301)Indication: Fatigue On: :42 Request TSH (25035)Indication: Fatigue On: :42 Request Vitamin D Hydroxy (47327)Indication: Fatigue On: :42 Request EBV Panel (24211)Indication: Fatigue On: :42 Request FERRITIN (23288)Indication: Anemia, unspecified On: Request IRON (64080)Indication: Anemia, unspecified On: Request MICROALBUMIN: CREATININE RATIO (52442) AND (72711)Indication: Abnormal glucose tolerance test On: Request METABOLIC PANEL, COMPREHENSIVE (62043)Indication: Abnormal glucose tolerance test On: Request LIPID PANEL (16152)Indication: Other hyperlipidemia On: Request CBC WITH MANUAL DIFF (72715)Indication: Anemia, unspecified On: Request FERRITIN (10797)Indication: Anemia, unspecified On: :15 Request IRON (55670)Indication: Anemia, unspecified On: : Request LIPID PANEL (02514)Indication: Essential hypertension On: Request METABOLIC PANEL, COMPREHENSIVE (81283)Indication: Essential hypertension On: : Request CBC WITH MANUAL DIFF (32827)Indication: Essential hypertension On: :14 Request UPEP (27377)Indication: BRONCHITIS, NOT SPECIFIED ACUTE OR CHRONIC (490.) On: Request Protein Electrophoresis, Serum (SPEP) (04876)Indication: BRONCHITIS, NOT SPECIFIED ACUTE OR CHRONIC (490.) On: Request IGA/IGD/IGG/IGM-EACH (82059)Indication: BRONCHITIS, NOT SPECIFIED ACUTE OR CHRONIC (490.) On: Request URINALYSIS, W/ MICRO (25502)Indication: Anemia, unspecified On: Request CBC WITH MANUAL DIFF (24152)Indication: Anemia, unspecified On: Request FOLIC ACID SERUM (25880)Indication: Anemia, unspecified On: Request VITAMIN B-12 (CYANOCOBALAMIN) (74160)Indication: Anemia, unspecified On: Request RETICULOCYTE COUNT MANUL (81536)Indication: Anemia, unspecified On: : Request LDH (LD) (LACTATE DEHYDROGENASE) (77047)Indication: Anemia, unspecified On: Request IRON BINDING CAPACITY (TIBC) (33748)Indication: Anemia, unspecified On: : Request IRON (43724)Indication: Anemia, unspecified On: Request FERRITIN (80816)Indication: Anemia, unspecified On: Request PSA (PROSTATE SPECIFIC ANTIGEN) (V76.44)Indication: Screening for prostate cancer On: :36 Request LIPID PANEL (13177)Indication: Abnormal glucose tolerance test On: :35 Request CBC WITH MANUAL DIFF (18166)Indication: Hypertension, benign On: Request METABOLIC PANEL, COMPREHENSIVE (51835)Indication: Hypertension, benign On: 35 Request SED RATE ERYTHROCYTE (78147)Indication: Rash On: :22 Request C-REACTIVE PROTEIN (74316)Indication: Rash On: :22 Request RHEUMATOID FACTOR-QUANT (70924)Indication: Rash On: : Request JOHN (ANTINUCLEAR ANTIBODY) (83009)Indication: Rash On: :22 Request CULTURE, SPUTUM (55963)Indication: Cough On: 67-Uzt-803465:20 Request HgA1C , Office (79396)Indication: Abnormal glucose tolerance test On: 79-Inj-008504:57 Request CULTURE, SPUTUM (91300)Indication: Cough On: 17-Kjr-490165:39 Request ACID FAST STAIN (AFB) (49122)Indication: Cough On: 29-Pto-372785:38 Request TSH (65594)Indication: Other hyperlipidemia On: :21 Request URINALYSIS, W/ MICRO (51333)Indication: Essential hypertension On: :21 Request CBC WITH MANUAL DIFF (84388)Indication: Abnormal glucose tolerance test On: : Request METABOLIC PANEL, COMPREHENSIVE (44700)Indication: Abnormal glucose tolerance test On: :21 Request MICROALBUMIN: CREATININE RATIO (33030) AND (80979)Indication: Abnormal glucose tolerance test On: 27-Jrb-020145:21 Request LIPID PANEL (32366)Indication: Other hyperlipidemia On: 82-Mhy-650341:20 Request CBC WITH MANUAL DIFF (84591)Indication: Abnormal glucose tolerance test On: :26 Request METABOLIC PANEL, COMPREHENSIVE (24750)Indication: Abnormal glucose tolerance test On: 77-Udw-763987:26 Request CULTURE, SPUTUM (89312)Indication: Cough On: 18-Skx-449279:18 Request LIPID PANEL (54243)Indication: Other hyperlipidemia On: 35-Tuv-172758:14 Request TSH (78098)Indication: Swelling of limb On: 45-Wvf-94112:58 Request METABOLIC PANEL, COMPREHENSIVE (22067)Indication: Swelling of limb On: 21-Nvo-34018:58 Request CBC WITH MANUAL DIFF (57973)Indication: Swelling of limb On: :58 Request BNTP (94051)Indication: Swelling of limb On: 65-Fkj-30234:58 Request CULTURE, SPUTUM (81613)Indication: Cough On: 13-Jka-19408:56 Request PSA (PROSTATE SPECIFIC ANTIGEN) (V76.44)Indication: Screening for prostate cancer On: 72-Uuh-863378:19 Request URINALYSIS, W/ MICRO (92374)Indication: Abnormal glucose tolerance test On: 62-Pph-184826:18 Request MICROALBUMIN: CREATININE RATIO (73476) AND (48031)Indication: Abnormal glucose tolerance test On: 53-Psz-585527:18 Request METABOLIC PANEL, COMPREHENSIVE (87205)Indication: Essential hypertension On: 86-Bhh-621584:18 Request LIPID PANEL (04262)Indication: Other hyperlipidemia On: 15-Exf-669125:18 Request PSA (PROSTATE SPECIFIC ANTIGEN) (V76.44)Indication: Screening for prostate cancer On: 47-Lzq-825367:40 Request MICROALBUMIN: CREATININE RATIO (67956) AND (15141)Indication: Abnormal glucose tolerance test On: 23-Lfk-194118:40 Request METABOLIC PANEL, COMPREHENSIVE (15673)Indication: Abnormal glucose tolerance test On: 40-Bih-000300:40 Request Urine Protein Electrophoresis (UPEP) (32422)Indication: recurrent uri On: :39 Request Serum Protein Electrophoresis (SPEP) (00530)Indication: recurrent uri On: 23-Ibl-690774:39 Request IMMUNOGLOBULIN E (IgE) (17185)Indication: Asthma, intrinsic, with status asthmaticus On: 23-Nmr-569690:39 Request IGA/IGD/IGG/IGM-EACH (56212)Indication: Asthma, intrinsic, with status asthmaticus On: 97-Puk-972550:39 Request LIPID PANEL (63062)Indication: Other hyperlipidemia On: 51-Jiz-946155:38 Request ASPERGILLUS AG, EIA (59773)Indication: Cough On: :58 Request SED RATE ERYTHROCYTE (20198)Indication: Cough On: 51-Yfj-378060:48 Request C-REACTIVE PROTEIN (65053)Indication: Cough On: :48 Request CBC WITH MANUAL DIFF (55437)Indication: Cough On: 58-Rml-510798:47 Request Quantiferron gold test (15158)Indication: Cough On: 55-Fwx-193714:45 Request CULTURE, SPUTUM (07182)Indication: Cough On: 07-Bsk-062441:45 Request VITAMIN B-12 (CYANOCOBALAMIN) (24904)Indication: Fatigue On: :20 Request Vitamin D Hydroxy (85903)Indication: Fatigue On: 57-Jql-843579:20 Request CBC WITH MANUAL DIFF (94310)Indication: Abnormal glucose tolerance test On: :19 Request METABOLIC PANEL, COMPREHENSIVE (18822)Indication: Abnormal glucose tolerance test On: :19 Request LIPID PANEL (82032)Indication: Other hyperlipidemia On: 65-Rqv-189516:19 Request URINALYSIS, W/ MICRO (43228)Indication: Abnormal glucose tolerance test On: :19 Request HEMOGLOBIN GLYCLATED (HGB A1C) (74021)Indication: Abnormal glucose tolerance test On: 02-Upj-481315:19 Request WARREN CULTURE-OTHER (37308)Indication: Pharyngitis, acute On: 64-Xel-730938:05 Request URINE WARREN CULTURE-MASSIEL COL COUNT (01725)Indication: Abdominal pain, acute, right lower quadrant On: :19 Request CBC WITH MANUAL DIFF (41895)Indication: Abnormal glucose tolerance test On: :08 Request METABOLIC PANEL, COMPREHENSIVE (96974)Indication: Abnormal glucose tolerance test On: 06-Kmd-175902:08 Request TSH (61456)Indication: Fatigue On: 93-Gxq-102562:02 Request CBC WITH MANUAL DIFF (80884)Indication: Abnormal glucose tolerance test On: :45 Request METABOLIC PANEL, COMPREHENSIVE (73943)Indication: Hypertension, benign On: 12-Hgi-032355:45 Request LIPID PANEL (29465)Indication: Other hyperlipidemia On: :45 Request METABOLIC PANEL, COMPREHENSIVE (25739)Indication: Essential hypertension On: :16 Request LIPID PANEL (17806)Indication: Other hyperlipidemia On: 20-Czb-963691:15 Request URINE WARREN CULTURE-MASSIEL COL COUNT (54174)Indication: Calcium kidney stone On: 97-Ljb-294384:54 Request PSA (PROSTATE SPECIFIC ANTIGEN) (V76.44)Indication: Enlarged prostate with lower urinary tract symptoms On: 55-Xrc-847120:09 Request METABOLIC PANEL, COMPREHENSIVE ([id number])Indication: Abnormal glucose tolerance test On: 90-Zaf-620666:09 Request CBC WITH MANUAL DIFF ([id number])Indication: Abnormal glucose tolerance test On: 53-Jzb-574544:09 Request LIPID PANEL ([id number])Indication: Other hyperlipidemia On: 64-Fzo-912906:09 Request MICROALBUMIN: CREATININE RATIO ([id number]) AND ([id number])Indication: Abnormal glucose tolerance test On: 25-Cas-863669:09 Request LIPID PANEL ([id number])Indication: Other hyperlipidemia On: :31 Request CBC WITH MANUAL DIFF ([id number])Indication: Abnormal glucose tolerance test On: :31 Request METABOLIC PANEL, COMPREHENSIVE ([id number])Indication: Abnormal glucose tolerance test On: :30 Request MICROALBUMIN: CREATININE RATIO ([id number]) AND ([id number])Indication: Abnormal glucose tolerance test On: 70-Epk-047906:28 Request METABOLIC PANEL, COMPREHENSIVE ([id number])Indication: Abnormal glucose tolerance test On: :07 Request LIPID PANEL ([id number])Indication: Other hyperlipidemia On: 7-Wxq-720348:07 Request PSA (PROSTATE SPECIFIC ANTIGEN) (V76.44)Indication: Enlarged prostate with lower urinary tract symptoms On: :49 Request METABOLIC PANEL, COMPREHENSIVE ([id number])Indication: Essential hypertension On: 4-Cjt-479261:48 Request LIPID PANEL ([id number])Indication: Other hyperlipidemia On: :48 Request HEPATIC FUNCTION PANEL ([id number])Indication: Other hyperlipidemia On: :21 Request LIPID PANEL ([id number])Indication: Other hyperlipidemia On: :21 Request CBC WITH MANUAL DIFF ([id number])Indication: Abnormal glucose tolerance test On: :53 Request METABOLIC PANEL, COMPREHENSIVE ([id number])Indication: Abnormal glucose tolerance test On: :53 Request MICROALBUMIN: CREATININE RATIO ([id number]) AND ([id number])Indication: Abnormal glucose tolerance test On: 9-Fpv-566221:53 Request HEPATIC FUNCTION PANEL ([id number])Indication: Other hyperlipidemia On: :53 Request LIPID PANEL ([id number])Indication: Other hyperlipidemia On: 3-Dhk-647393:53 Request GLUCOSE TOLERANCE TEST (GTT) 2 hour On: 0-Tld-215137:36 Request ([id number]) TSH ([id number])Indication: Dizziness and giddiness On: 08-Dyx-987365:15 Request LIPID PANEL ([id number])Indication: Other hyperlipidemia On: 37-Yvt-473967:15 Request CBC WITH MANUAL DIFF ([id number])Indication: Dizziness and giddiness On: 83-Mve-488309:15 Request METABOLIC PANEL, COMPREHENSIVE ([id number])Indication: Dizziness and giddiness On: 69-Tfn-135338:15 Request HEPATIC FUNCTION PANEL ([id number])Indication: Other hyperlipidemia On: 62-Vkh-416300:39 Request LIPID PANEL ([id number])Indication: Other hyperlipidemia On: 95-Kqd-380727:39 Request HEPATIC FUNCTION PANEL ([id number])Indication: Other hyperlipidemia On: 23-Fyx-868844:31 Request LIPID PANEL ([id number])Indication: Other hyperlipidemia On: 51-Ccu-899103:31 Request WARREN CULTURE-BLOOD ([id number])Indication: fever On: 3-Vre-775591:58 Request METABOLIC PANEL, COMPREHENSIVE ([id number])Indication: fever On: 5-Ibe-296936:58 Request CBC WITH MANUAL DIFF ([id number])Indication: fever On: 2-Fcw-492599:58 Request WARREN CULTURE-OTHER ([id number])Indication: Pharyngitis, acute On: 81-Jpp-380910:35 Request PSA (Prostate Specific Antigen), Screening ([id number])Indication: Other hyperlipidemia On: :32 Request LIPID PANEL ([id number])Indication: Other hyperlipidemia On: : Request URINALYSIS W/O MICRO ([id number])Indication: Hypertension, benign On: :31 Request TSH ([id number])Indication: Hypertension, benign On: : Request CBC WITH MANUAL DIFF ([id number])Indication: Hypertension, benign On: :31 Request METABOLIC PANEL, COMPREHENSIVE ([id number])Indication: Hypertension, benign On: :31 Request Creatine Kinase Total ([id number])Indication: Myalgia and myositis On: :24 Request SED RATE ERYTHROCYTE ([id number])Indication: Arthralgia On: :23 Request C-REACTIVE PROTEIN ([id number])Indication: Arthralgia On: :23 Request RHEUMATOID FACTOR-QUANT ([id number])Indication: Arthralgia On: :23 Request JOHN (ANTINUCLEAR ANTIBODY) ([id number])Indication: Arthralgia On: :23 Request Planned Encounters Medical; [facility] 3 Month FU - On: 21-Mar-2018 8:30 [facility] Fast DO, Adelaida A Fast DO, Adelaida A Planned Procedures PNEUM VAC ADLT/IMUMNOSPR, On: 06-Dec-2017 Intent SBC/INTRM ([id number])By: Flakito ACKERMAN, Comments: lot: [id number]: ite/route: Татьяна del/IMamt: 0.5mLVIS signed when applicableEVER Monroy Adelaida A Fast DO, Adelaida A Cartoid DopplerBy: Fast DO, Adelaida On: 06-Sep-2017 Intent A Fast DO, Adelaida A Radiology - Lumbar SpineBy: Fast On: 06-Jun-2017 Intent DO, Adelaida A Fast DO, Adelaida A ELECTROCARDIOGRAM, COMPLETE (ECG) On: 06-Jun-2017 Intent ([id number])By: Flakito ACKERMAN Adelaida A Flakito Comments: ekg [...] XRAY, PA & LATERAL On: 18-Jan-2017 Intent ([id number])By: Yola Witt Aerosol Treatment ([id number])By: On: 18-Jan-2017 Intent Yola Witt Solu -Medrol Injection, 125 mg On: 18-Jan-2017 Intent ([id number])By: Yola Witt Comments: solumedrol 125mg injectionlot: [id number]: 12/2018L GMpt tolerated wellAD WINDOW CASER ELECTROCARDIOGRAM, COMPLETE (ECG) On: 05-Jan-2016 Intent ([id number])By: Adelaida Fraga DO Comments: ekg showed normal sinus rhythym, normal axis, no acute st/t wave changes irbb DO, Adelaida A Solu -Medrol Injection, 125 mg On: 09-May-2015 Intent ([id number])By: Samantha Grewal CNP Comments: lot: [id number]: ite/route:RGM/IMamt: 2mLVIS signed when applicableEVER Dumont Aerosol Treatment ([id number])By: On: 09-May-2015 Intent Slarb WINDOW CASER, Tracey Radiology - Chest- PA and LatBy: [...] A Fast DO, Adelaida A Pulse Oximetry ([id number])By: Flkaito On: 26-Aug-2014 Intent DO, Adelaida A Fast DO, Adelaida A Comments: 94%- recheck 95 Aerosol Treatment ([id number])By: On: 10-Apr-2014 Intent Tracey Young LPN Eprescribed prescriptions On: 25-Jul-2013 Intent ([id number])By: Fast DO, Adelaida A Fast DO, Adelaida A Pulse Oximetry ([id number])By: Flakito On: 02-Jul-2013 Intent DO, Adelaida A Fast DO, Adelaida A Comments: 97% Aerosol Treatment ([id number])By: On: 25-Jun-2013 Intent Samantha Grewal CNP Eprescribed prescriptions On: 25-Jun-2013 Intent ([id number])By: Samantha Grewal CNP Eprescribed prescriptions On: 02-Apr-2013 Intent (G8553)By: Leigh Ann Polk Aerosol Treatment ([id number])By: On: 26-Mar-2013 Intent Samantha Grewal CNP Eprescribed prescriptions On: 26-Mar-2013 Intent ([id number])By: Eliana Carter Eprescribed prescriptions On: 25-Dec-2012 Intent (G8553)By: Leigh Ann Polk Aerosol Treatment ([id number])By: On: 06-Nov-2012 Intent Samantha Grewal CNP Eprescribed prescriptions On: 06-Nov-2012 Intent (G8553)By: Eliana Carter Ear Irrigation ([id number])By: Carmina On: 25-Sep-2012 Intent Samantha IRVIN Comments: Ear Irrigation performed on:bilateralAmount/color removed cerumen:large amount of dark brown wax removedOUtcome:clear, pt toleratedUsed wax curettes Wax CurettesBy: Samantha Grewal CNP On: 25-Sep-2012 Intent Eprescribed prescriptions On: 22-Sep-2012 Intent ([id number])By: Peter DO, Elizabet Eprescribed prescriptions On: 02-Aug-2012 Intent (G8553)By: Leigh Ann Polk Pulse Oximetry ([id number])By: Flakito On: 30-Jun-2012 Intent DO, Adelaida A Fast DO, Adelaida A Comments: 97% Eprescribed prescriptions On: 12-Jun-2012 Intent (G8553)By: Fast DO, Adelaida A Fast DO, Adelaida A Spirometry ([id number])By: Felicitas, On: 17-Jan-2012 Intent Leigh Ann Comments: good effort and curve mild restriction CT - Sinuses CompleteBy: Fast DO, On: 17-Jan-2012 Intent Adelaida A Fast DO, Adelaida A PNEUM VAC ADLT/IMUMNOSPR, On: 17-Jan-2012 Intent SBC/INTRM ([id number])By: Boris, Comments: Lot:[id number]:04-25-Dose:0.5mLRoute:IMSite:L armGiven By:CHELA signed Julia IMMUNIZ ADMNIN, 1 VAC, SNGL/COMBO On: 17-Jan-2012 Intent ([id number])By: Julia Escalante CT - ChestBy: Fast DO, Adelaida A On: 17-Jan-2012 Intent Fast DO, Adelaida A Eprescribed prescriptions On: 17-Jan-2012 Intent (G8553)By: Leigh Ann Polk Eprescribed prescriptions On: 18-Oct-2011 Intent (G8553)By: Fast DO, Adelaida A Fast DO, Adelaida A EKG ([id number])By: Fast DO, Adelaida A On: 15-Oct-2011 Intent Fast DO, Adelaida A Comments: ekg- sinus with normal axis and nsivcd and no acute changes Eprescribed prescriptions On: 09-Aug-2011 Intent (G8553)By: Fast DO, Adelaida A Fast DO, Adelaida A PFT - CompleteBy: Fast DO, Adelaida On: 08-Mar-2011 Intent A Fast DO, Adelaida A Pulse Oximetry ([id number])By: Carmina On: 02-Feb-2011 Intent Samantha IRVIN Aerosol Treatment ([id number])By: On: 02-Feb-2011 Intent Samantha Grewal CNP Radiology - Chest- PA and LatBy: On: 18-Jan-2011 Intent Fast DO, Adelaida A Fast DO, Adelaida A Pulse Oximetry ([id number])By: On: 18-Jan-2011 Intent Leigh Ann Polk Comments: 93% TDAP VACCINE >7 IM ([id number])By: On: 07-Dec-2010 Intent Leigh Ann Polk Comments: Lot #:[id number] date:mount given:0.5mlRoute: IMSite given:left deltGiven by: DANIEL Zavaleta Eprescribed prescriptions On: 07-Dec-2010 Intent (G8553)By: Fast DO, Adelaida A Fast DO, Adelaida A FLU VAC, SPLIT, >3 YEARS, On: 07-Dec-2010 Intent INTRAMUSC ([id number])By: Felicitas, Comments: received at work Leigh Ann Toradol Injection, 30 mg On: 05-Nov-2010 Intent ([id number])By: Elizabet Green DO Comments: Lot:[id number]:apr 05Amt:30mg/mlRoute:IMSite:left hip Given By: ILDA Tran Ear Irrigation ([id number])By: Peter On: 05-Nov-2010 Intent Elizabet ACKERMAN Comments: Left ear irrigated, large amt of wax removed. pt tolerated well. Eprescribed prescriptions On: 05-Nov-2010 Intent (G8553)By: Elizabet Green DO Wax CurettesBy: Peter ACKERMAN, On: 05-Nov-2010 Intent Elizabet SPECIMEN HNDLNG/TRNSPRT, OFFC > On: 05-Nov-2010 Intent LAB ([id number])By: Elizabet Green DO Nuclear Medicine - HIDA [...] call wet read DO, Adelaida A Spirometry ([id number])By: Flakito ACKERMAN On: 14-Sep-2010 Intent Adelaida A Fast DO, Adelaida A Comments: good effort and curve- mild restriction Eprescribed prescriptions On: 14-Sep-2010 Intent (G8553)By: Flakito DO, Adelaida A Fast DO, Adelaida A Pulse Oximetry ([id number])By: Flakito On: 14-Sep-2010 Intent DO, Adelaida A Fast DO, Adelaida A Comments: 94-95 Radiology - Chest- PA and LatBy: On: 14-Sep-2010 Intent Fast DO, Adelaida A Fast DO, Adelaida A Pulse Oximetry ([id number])By: Ciesa On: 23-Feb-2010 Intent PUBLIC INFORMATION COORDINATOR, Anamaria Aerosol Treatment ([id number])By: On: 23-Feb-2010 Intent Ciesa PUBLIC INFORMATION COORDINATOR, Anamaria Pulse Oximetry ([id number])By: Ciesa On: 26-Jan-2010 Intent PUBLIC INFORMATION COORDINATOR, Anamaria Aerosol Treatment ([id number])By: On: 26-Jan-2010 Intent Ciesa PUBLIC INFORMATION COORDINATOR, Anamaria Spirometry ([id number])By: Felicitas, On: 29-Apr-2008 Intent Leigh Ann Comments: good effort and curve normal EKG ([id number])By: Fast DO, Adelaida A On: 20-Apr-2007 Intent [...] ACKERMAN Adelaida A Flakito Comments: Lot #: [id number] date: 10/30Amount given: 2 gramsRoute: IMSite given: Right hip and left hipGiven by: Calin Townsend LPN DO, Adelaida A Spirometry ([id number])By: Flakito ACKERMAN, On: 27-Mar-2007 Intent Adelaida A Fast DO, Adelaida A Comments: good effort and curve normal EBV SEROLOGIC TESTBy: Mary Ann Salcido On: 17-Feb-2007 Intent RUDY-GUZMAN VCA ANTIBODY On: 16-Feb-2007 Intent MEASUREMENTBy: Mast RN, Negrita SPECIMEN HNDLNG/TRNSPRT, OFFC > On: 06-Feb-2007 Intent LAB ([id number])By: Fast DO, Adelaida A Fast DO, Adelaida A Ultrasound - TesticularBy: Fast On: 13-Oct-2006 Intent DO, Adelaida A Fast DO, Adelaida A Inhaler Demo ([id number])By: Fast DO, On: 26-Sep-2006 Intent Adelaida A Fast DO, Adelaida A Radiology - Hip - LeftBy: Fast On: 26-Sep-2006 Intent DO, Adelaida A Fast DO, Adelaida A Radiology - Hip - RightBy: Fast On: 26-Sep-2006 Intent DO, Adelaida A Fast DO, Adelaida A Bio Z ([id number])By: Fast DO, Adelaida A On: 25-Jul-2006 Intent Fast DO, Adelaida A Comments: normal paremters Six Minute Walk Assessment On: 25-Jul-2006 Intent ([id number])By: Fast DO, Adelaida A Fast DO, Adelaida A Radiology - Chest- PA and LatBy: On: 25-Jul-2006 Intent Fast DO, Adelaida A Fast DO, Adelaida A Spirometry ([id number])By: Fast DO, On: 25-Jul-2006 Intent Adelaida A Fast DO, Adelaida A Comments: good effort and curve- normal EDISON (Ankle Brachial Index) On: 20-Jul-2006 Intent ([id number])By: Leigh Ann Polk Comments: done EDISON (Ankle Brachial Index) On: 17-May-2006 Intent ([id number])By: Fast DO, Adelaida A Fast DO, Adelaida [...] Indication: Neoplasm of uncertain behavior of skin [facility] Wellness Physical : Patient Instructions Indication: [facility] : How to access health information online Indication: [facility] Wellness Physical [facility] Well[facility] Physical : How to access health information online - Detail Ind[facility] Other hyperlipidemia : [...] Advance Directives Name Dates Details Immunization Registry [place] - Effective on Effective: 31-Jan-201701/31/2017. Expiration date [...] days ago- Dr. Fraga called pt in [facility]. 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 for heart cath and discharged sat 06/30/13.- he had heart cath again at [facility] and one vessel which shows 20percent more [...] saw a Dr Barker a psychiatrist in [place]- he thought mostly anxiety so left him [...] gerd- so he is going back to [facility]- mood good with celexa-less tense, [ADDITIONAL [...]
--- OUTSIDE RECORDS SUMMARY | 2018-05-15 01:20 | XMS RPT_ITS | Continuity of Care Document ---
:1950 Author Organization [facility] Address [address] [place] [address] Phone Care Team Providers Name Role Phone Adelaida Fraga DO Unavailable Remigio Lares MD Unavailable Tawanda Alonso Unavailable [facility] Unavailable Eliana Carter Unavailable [...] colonsoocpy 09/05- polyps - repeat 5 years [facility] Status: Active Coronary artery disease (I25.10, [...] Solution daily for 90 days Quantity: 3 {Jennings} Refills: 5 Ordered:31-Oct-2017 Fast DO, Adelaida AFast DO, Adelaida A Start : 31-Oct-2017 Active BusPIRone HCl 10 MG Oral Tablet 2 (two) Tablet tid for 90 days Quantity: 540 {Tablet} Refills: 3 Ordered:09-May-2017 Fast DO, Adealida AFast DO, Adelaida A Start : 09-May-2017 [...] A Start : 02-Nov-2017 Active Comments:sixtyDX: M54.16, M51.33449,411,000 - OD risk 100 Lunesta 3 MG [...] Comments:alternate with 20mg(per hans at [facility] - was not fillable if more than 1qd and would require pa at [phone] or [phone] - sent in this way to see if will process -- no id number was given = Karely Diflucan 150 MG Oral Tablet 1 (one) Tablet daily for 7 days Quantity: 7 {Tablet} Refills: 0 Ordered:28-Jan-2017 Adelaida Fraag DOtesfaye DOAdelaida A Start : 28-Jan-2017 End [...] (Oral Capsule) 1 (one) Capsule Capsule bid h6njnlf for 21 days Quantity: 42 {Capsule} Refills: [...] : 02-Sep-2010 End : 05-Nov-2010 Inactive NYSTATIN, 755524WJEY/ML (Mouth/Throat Suspension) 10 cc tid for 0 [...] : 22-Jun-2013 End : 03-Sep-2013 Inactive ZOSTAVAX, 15853XGK/0.65ML (Subcutaneous Solution Reconstituted) 1 For Solution sc [...] Quantity: 3 {Inhaler} Refills: 3 Ordered:10-Apr-2014 Slarb TEST ENG, Tracey Start : 22-Jun-2013 End : 10-Apr-2014 Discontinued ATENOLOL, 50MG (Oral Tablet) 1 tab Tablet qd for 30 days Quantity: 30 {Tablet} Refills: 0 Ordered:10-Apr-2014 Slarb TEST ENG, Tracey Start : 12-Jun-2012 End : 10-Apr-2014 [...] Quantity: 60 {Capsule} Refills: 3 Ordered:10-Apr-2014 Slarb TEST ENG, Tracey Start : 29-Oct-2013 End : 10-Apr-2014 Discontinued Dymista 137-50 MCG/ACT Nasal Suspension 1 spray each nostril qd for 0 days Quantity: 2 {Jennings} Refills: 0 Ordered:11-Jun-2016 Leigh Ann Polk Start [...] : 05-Jan-2016 End : 06-Apr-2016 Discontinued Comments:Jelani report#[id number]- df viewed and approved- gave scripts to [...] Quantity: 6 {Package} Refills: 0 Ordered:10-Apr-2014 Slarb TEST ENG, Tracey Start : 06-Feb-2014 End : 10-Apr-2014 [...] W/WO Contrast Result: Comments: See Note; NOTES: [facility] Imaging Services [address] [place] [address] Brain W/WO Contrast MR#: [id number] Acct: [id number] Name: YUMIKO LANDRUM Rep #: [id number] : 1950 M 67 From: Rodney Sarah MD PCP: Adelaida Fraga DO Status: REG CLI Study: Brain W/WO Contrast Date of Exam: 09/26/17 Exam# [id number] Ordering Dr: Perico Crowe MD STUDY: MRI [...] CC: Perico Crowe MD; Adelaida Fraga DO Mental Health Clinician: Signed 17-Sep-2017 Carotid Duplex Ultrasound Result: Comments: See Note; NOTES: [facility] Cardiovascular Services [address] [place] [address] Carotid Duplex Ultrasound 09/16/17 1012 MR#: [id number] Acct: [id number] Name: YUMIKO MCCOLLUM Rep #: [id number] : 1950 66 From: Jung Garcia MD Attending Dr: Adelaida Fraag DO Status: REG CLI Ordering Dr: Adelaida [...] the left vertebral artery. Procedure Carotid Duplex 88884. The study was technically difficult. Exam performed [...] Date Dictated: 1012 Date Transcribed: 09/17/17 151 Mental Health Clinician: Signed 17-Aug-2017 History and Physical Exam Result: Comments: See Note; NOTES: [facility] Medical Records Department [address] [place] [address] History and Physical 08/17/17913 MR#: [id number] Acct: [id number] Name: LYON AMBER E Rep #: [id number] : 1950 66 From: Remigio Lares MD PCP: Adelaida Fraga DO Status: REG [facility] Location: [facility] Problem List (1) Abnormal stress test Status: Acute (2) Atherosclerotic heart d isease of pilot [place] coronary artery without angina pectoris Status: Chronic Qualifiers: [place] vs. transplanted heart: pilot station heart Qualified Code(s): I25.10 - Atherosclerotic heart disease of pilot [place] coron elise artery without angina pectoris Comment: [...] was trivial MR and TR and mild DC. His estimated RV systolic pressure was 30 [...] please see previously dictated out the patient [place] from 07/14/2017. Review of systems: Upon review [...] this approach. This note was generated with [employer] dictation software. It may contain incorrect words, spelling, and punctuation that were not noted in checking the note bef ore signing. 08/17/17 0925 <Electronically signed by Remigio Lares MD> Date Remigio Lares MD Cosigner Signature: Date (if applicable) CC: Adelaida Fraga DO; Remigio Lares MD Signed 11-Aug-2017 Chest PA and Lateral Result: Comments: See Note; NOTES: [facility] Imaging Services [address] [place] [address] Chest PA and Lateral MR#: [id number] Acct: [id number] Name: YUMIKO LANDRUM Brandon Rep #: [id number] : 1950 M 66 From: Will Guerrero MD PCP: Adelaida Fraga DO Status: REG CLI Study: Chest PA and Lateral Date of Exam: 08/11/17 Exam# [id number] Ordering Dr: Remigio Lares MD STUDY: X-RAY [...] CC: Adelaida Fraga DO; Remigio Lares MD Mental Health Clinician: Signed 02-Aug-2017 Stress Report Result: Comments: See Note; NOTES: [facility] Cardiovascular Services [address] [place] [address] MR#: [id number] Acct: [id number] Name: YUMIKO LANDRUM Rep #: [id number] : [birth year] 66 From: Remigio Lares MD [...] 72 %. This note was generated with [employer] software. It may contain incorrect words, spelling, and punctuation that were not noted in checking the note before signing. 08/02/17 5508 <Electronically signed by Remigio Lares MD> Date Remigio Lares MD CC: Adelaida Fraga DO; Remigio Lares MD Date Dictate d: 08/02/171638 Date Transcribed: 08/02/171638 Mental Health Clinician: PM Signed 14-Jul-2017 Cardiology Visit Report Result: Comments: See Note; NOTES: [facility] [address] [place] [address] OFFICE VISIT Date of Service: 07/14/17 MR#: [id number] Acct: [id number] Name: YUMIKO LANDRUM Rep #: [id number] : 1950 Provider: Remigio Lares MD Age/Sex: 66/M Location: [facility] Status: Signed HPI HPI Details: YUMIKO LANDRUM, is a 66 M who presents to the office today for outpatient card iovascular consultation for history of underlying CAD status post LAD PCI. He has been cared for in the past both by the [facility] members (Drs. Griggs and Edwin), at [facility] by Dr. Rosales, and at [facility] by Dr. Maury Veliz. He states he lost saw Dr. Veliz approximately 1 year ago. He is now relocating his care locally. He has a history of underlying CAD. He underwent a previous diagnostic car diac catheterization on 08/11/2005 at [facility]. At that point in time he [...] no significant stenosis. In April 2008, at [facility], he had a repeat diagnostic [...] luminal irregularities. He apparently was transferred to [facility] for further evaluation and care. The results [...] an LYNDSEY inhibitor. He believes his former developer evangelist remove these medications from tn s medication list. He does not recall [...] PO QAM cap 07/14/17 [History Confirmed 07/14/17] [facility] Medical History Presence of sten t in coronary artery (Chronic 08/11/05) Hyperlipidemia (Chronic) Hypertension (Chronic) Prinzmetal angina (Acute) Atherosclerotic heart disease of pilot station coronary artery without angina pectoris (Chroni c) [...] affect Assessment AND Plan 1. Atherosclerosis of pilot station coronary artery of pilot [place] heart without angina pectoris I25.10 PTCA/RINA to [...] Code Off vis,new,level 4 Diagnoses Atherosclerosis of pilot station coronary artery of pilot [place] heart without angina pectoris I25.10 [place] vs. transplanted heart: n ative heart Presence of stent in coronary artery Z95.5 Hyperlipidemia, unspecified hyperlipidemia type E78.5 Hyperlipidemia type: unspecified Essential hypertension I10 Hypertension type: essential hype rtension COPD (chronic obstructive pulmonary disease) J44.9 Coding Level of Care Code Off vis,new,level 4 Diagnoses Atherosclerosis of pilot station coronary artery of pilot [place] heart without angina pectoris I 25.10 [place] vs. transplanted heart: pilot [place] heart Presence of stent in coronary artery Z95.5 Hyperlipidemia, unspecified hyperlipidemia type E78.5 Hyperlipidemia type: unspecified Essential hypertension I10 Hypertension type: essential hypertension COPD (chronic obstructive pulmonary disease) J44.9 07/14/17 1558 <Electronically signed by Remigio Lares MD> Date Remigio Lares MD Cosigner Signature: Date (if applicable) CC: Adelaida Fraga DO 14-Jul-2017 12 Lead EKG performed by [facility] Result: Comments: See Note; NOTES: [facility] [address] [place] [address] 12 Lead EKG performed by [facility] 07/14/171435 MR#: [id number] Acct: [id number] Name: YUMIKO LANDRUM Rep #: [id number] : 1950 66 From: Remigio Lares MD Attending Dr: Remigio Lares MD Status: DEP AMB Ordering Dr: Remigio Lares MD Date: 07/14/17 Location: [facility] Sex: M C Admitted: BMS/12 Lead EKG performed by [facility] ECG Report Interpretation Sinus Rhythm Right bundle branch block. ABNORMAL Electronically signed on 07/14/2017 at 17:15 by Remigio Lares 07/14/17 1717 Date Remigio Lares MD CC: Adelaida Fraga DO Date Dictated: 07/14/171435 Date Transcribed: 07/14/171435 Mental Health Clinician: PM Signed 04-Jul-2017 TXT - Blood Flow Screening Result: Comments: See Note; NOTES: [facility] Cardiovascular Services [address] [place] [address] 07/04/17 0840 MR#: [id number] Acct: [id number] Name: YUMIKO LANDRUM Rep #: [id number] : 1950 66 From: Jung Garcia MD Attending Dr: Adelaida Fraga DO Status: REG REF Ordering Dr: Date: 07/04/17 Location: [facility] Sex: M C Admitted: Reason [...] (1.0 or greater). Ordering Physician: Adelaida Fraga [facility] Physician: Adelaida Fraga Performed By: Kayla Kelley, RDCS, RVT 07/04/172221 Date Tyrese Garcia MD CC: Adelaida Fraga DO Date Dictated: 07/04/17 0840 Date Transcribed: 07/04/172221 Mental Health Clinician: Signed 06-Jun-2017 L/S Spine Min 4 Views Result: Comments: See Note; NOTES: [facility] Imaging Services [address] [place] [address] L/S Spine Min 4 Views MR#: [id number] Acct: [id number] Name: YUMIKO LANDRUM Rep #: [id number] : 1950 M 66 From: Rafael Manley DO PCP: Adelaida Fraga DO Status: REG CLI Study: L/S Spine Min 4 Views Date of Exam: 06/06/17 Exam# [id number] Ordering Dr: Adelaida Fraga DO STUDY: X-RAY [...] Rafael Manley DO at 18:01 EDT Tel [phone], Service support , CC: Adelaida Fraga DO Mental Health Clinician: Signed 18-Feb-2017 Ankle min 3 Views Result: Comments: See Note; NOTES: [facility] Imaging Services [address] [place] [address] Ankle min 3 Views MR#: [id number] Acct: [id number] Name: YUMIKO LANDRUM Rep #: [id number] OB: 1950 M 66 From: Trevon Carrillo MD PCP: Adelaida Fraga DO Status: REG CLI Study: Ankle min 3 Views Date of Exam: 02/18/17 Exam# [id number] Ordering Dr: Adelaida Fraga DO STUDY: X-RAY [...] Service support , CC: Adelaida Fraga DO Mental Health Clinician: Signed 18-Feb-2017 Chest without Contrast Result: Comments: See Note; NOTES: [facility] Imaging Services [address] [place] [address] Chest without Contrast MR#: [id number] Acct: [id number] Name: YUMIKO LANDRUM Brandon Rep #: [id number] : 1950 M 66 From: Kaitlin Campoverde PCP: Adelaida Fraga DO Status: REG CLI Study: Chest without Contrast Date of Exam: 02/18/17 Exam# [id number] Ordering Dr: Adelaida Fraga DO STUDY: CT [...] Service support , CC: Adelaida Fraga DO Mental Health Clinician: Signed 10-Feb-2017 Chest PA and Lateral Result: Comments: See Note; NOTES: [facility] Imaging Services [address] [place] [address] Chest PA and Lateral MR#: [id number] Acct: [id number] Name: YUMIKO LANDRUM Rep #: [id number] : 1950 M 66 From: Chava Fu MD PCP: Adelaida Fraga DO Status: REG CLI Study: Chest PA and Lateral Date of Exam: 02/10/17 Exam# [id number] Ordering Dr: Yola Witt STUDY: X-RAY CHEST [...] , CC: COCO Witt; Adelaida Fraga DO Mental Health Clinician: Signed 18-Jan-2017 Chest PA and Lateral Result: Comments: See Note; NOTES: [facility] Imaging Services [address] [place] [address] Chest PA and Lateral MR#: [id number] Acct: [id number] Name: YUMIKO LANDRUM Rep #: [id number] : 1950 M 66 From: Erwin Jiménez MD PCP: Adelaida Fraga DO Status: REG CLI Study: Chest PA and Lateral Date of Exam: 01/18/17 Exam# [id number] Ordering Dr: Yola Witt STUDY: X-RAY CHES [...] EST Tel , Service support , CC: VULCANIZERMayra Witt; Adelaida Fraga DO Mental Health Clinician: Signed 11-Apr-2015 Chest PA and Lateral Result: Comments: See Note; NOTES: [facility] Imaging Services [address] [place] [address] Verdana 4d Chest PA and Lateral MR#: [id number] Acct: [id number] Name: YUMIKO LANDRUM Rep #: [id number] : 1950 M 64 From: Stephen Barba MD PCP: Adelaida Fraga DO Status: REG CLI Study: Chest PA and Lateral Date of Exam: 04/11/15 Exam# [id number] Ordering Dr: Adelaida Fraga DO STUDY: X-RAY [...] FACR at 20:20 EST , Service support [phone], RAD/Chest PA and Lateral IMPRESSION: Normal x-ray examination of the chest. No lingular infiltrate is noted on today's examination Electronically Signed: Stephen Barba MD, FACR at 20:20 EST , Service support [phone], CC: Adelaida Fraga DO Mental Health Clinician: Signed 11-Apr-2015 Hip min 2 Views Result: Comments: See Note; NOTES: [facility] Imaging Services [address] [place] [address] Verda 4d Hip min 2 Views MR#: [id number] Acct: [id number] Name: CITLALLI LANDRUM Rep #: [id number] : 1950 64 From: Stephen Barba MD PCP: Adelaida Fraga DO Status: REG CLI Study: Hip min 2 Views Date of Exam: 04/11/15 Exam# [id number] Ordering Dr: Adelaida Fraga DO UDY: X-RAY [...] FACR at 20:19 EST , Service support [phone], RAD/Hip min 2 Views IMPRESSION: Normal x-ray examination of the pelvis and hip. Electronically Signed: Stephen Barba MD, FACR 201 07/23/18 at 20:19 EST , Service support [phone], CC: Adelaida Fraga DO Mental Health Clinician: Signed 11-Apr-2015 L/S Spine Min 4 Views Result: Comments: See Note; NOTES: [facility] Imaging Services [address] [place] [address] Verda 4d L/S Spine Min 4 Views MR#: [id number] Acct: [id number] Name: YUMIKO LANDRUM Rep #: [id number] : 1950 64 From: Stephen Barba MD PCP: Adelaida Fraga DO Status: REG CLI Study: L/S Spine Min 4 Views Date of Exam: 04/11/15 Exam# [id number] Ordering Dr: Susannah Fraga ra, DO STUDY: [...] FACR at 20:20 EST , Service support [phone], RAD/L/S Spine Min 4 Views IMPRESSION: M ild degenerative disc disease at L2-3 and L5-S1. Facet arthrosis at L4-5 and L5-S1. Mild dextroscoliosis. Electronically Signed: Stephen Barba MD, FACR at 20:20 EST Tel , Service support [phone], CC: Adelaida Fraga DO Mental Health Clinician: Signed 27-Aug-2014 Chest PA and Lateral Result: Comments: See Note; NOTES: [facility] Imaging Services [address] [place] [address] Radiology Report MR#: [id number] Acct: [id number] Name: YUMIKO LANDRUM Rep #: [id number] : 1950 M 63 From: Wilfredo Alvarado MD PCP: Adelaida Fraga DO Status: REG CLI Study: Chest PA and Lateral Date of Exam: 08/27/14 Exam# [id number] Ordering Dr: Adelaida Fraga DO STUDY: X- [...] Wilfredo Alvarado MD at 15:46 EDT Tel [phone], Service support [phone], 0079 RAD/Chest PA and Lateral IMPRESSION: Inc reased markings in the lingular segment of the left upper lobe suggestive of early infiltrate. Followup is recommended. Electronically Signed: Wilfredo Alvarado MD at 15:46 EDT Tel [phone], Service support [phone], CC: Adelaida Fraga DO Mental Health Clinician: Signed 02-Jul-2013 12 Lead Electrocardiogram Result: Comments: See Note; NOTES: [facility] Cardiovascular Services [address] [place] [address] 12 Lead EKG 06/17/13 193 MR#: [id number] Acct: [id number] Name: CITLALLI LANDRUM Rep #: [id number] : 1950 62 From: Remigio Lares MD [...] Abnormal ECG Confirmed by GERDA CALVO, REMIGIO ([id number]), order editor KARYNA RUBALCAVA ([id number]) on 2013 10:04:35 AM Referred By: Jose Fernando Confirmed By:REMIGIO LARES MD CC: Adelaida byrd DO Date Dictated: 06/17/131937 Date Transcribed: 06/17/131937 Mental Health Clinician: Signed 30-Jun-2013 Emergency Department Summary Result: Comments: See Note; NOTES: [facility] Medical Records Department [address] [place] [address] Emergency Department Summary MR#: [id number] Acct: [id number] Name: YUMIKO LANDRUM Rep #: [id number] : 1950 62 From: Jose Fernando MD PCP: Adelaida Fraga DO Status: DEP ER DATE OF SERVICE: 06/28/2013 CHIEF COMPLAINT: Chest pain. HISTORY OF PRESENT ILLNESS: The patient states over the past 8 hours, he has had intermittent discomfort in the chest of burning to ache similar to angina. He had an AL, he thinks, back in 2011 when he had a stent placed by Dr. Mariah carr in [facility]. He has been off his blood [...] sensation, cranial nerve function and treatment. [facility] DEPARTMENT COURSE: Portable one-view chest [...] a 3. He agreed to go to [facility] where his developer evangelist is in case he needs another cath and stent. He was stable for transfer. [facility] Trujillo as veneer gluer accepted the patient after being advised of all the above through the transfer meat service team member. He did not want to talk to me. The patient is stable for transfer, with him. DIAGNOSES: 1. Chest pain. 2. Unstable angina. Jose Fernando MD C C: Adelaida Fraga DO T: [facility] JOB: [id number] 06/30/13 0021 <Electronically signed by Jose Fernando MD> Date Jose Fernando MD CC: Adelaida Fraga DO Date Dictated: 06/28/13 2255 Date Transcribed: 06/28/132254 Mental Health Clinician: Signed 28-Jun-2013 Chest 1 View (Portable) Result: Comments: See Note; NOTES: [facility] Imaging Services [address] [place] [address] Radiology Report MR#: [id number] Acct: [id number] Name: DOMINICKYUMIKO E Rep #: [id number] : 1950 M 62 From: Wilfredo Alvarado MD PCP: Adelaida Fraga DO Status: DEP ER Study: Chest 1 View (Portable) Date of Exam: 06/28/13 Exam# [id number] Ordering Dr: Jose Fernando MD STUDY: X-RAY [...] Wilfredo Alvarado MD at 9:06 EDT Tel [phone], Service support [phone], CC: Adelaida Fraga DO; Jose Fernando MD Mental Health Clinician: Signed Immunization Name Dates Details Influenza vaccine, split, 3yrs &>, IM (AFLURIA) on: Nov-2017 Influenza, inj, MDCK, preservative free, q.valent on: 07-Dec-2016 Comments: Site: Lot #: [id number] Family History Unknown Family Member Name Dates [...] Status: Active 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 criteria.Please note revised GLUCOSE reference range mmvtukknc37/02/2018. 36-Nns-719965:31 Hemoglobin A1c Comments: [facility] [address] [place], [place], [address] HGB A1C 6.0 % (Normal) Range: 4.2-6.3 :31 Lipid Profile Comments: [facility] [address] [place], [place], [id number] VLDL 24 mg/dL (Normal) Range: 5-40 LDL [...] Risk :31 PSA,Total - Annual Screen Comments: [facility] [address] [place], [place], [id number] PSA,TOT SCREEN 0.50 ng/mL (Normal) Range: 0.00-4.00 Comments: This test was performed using the TPSA assay method for the[facility] chemistry system. Values obtained with differentassay methods cannot be used interchangably.When changing PSA assays in the course of monitoring apatient, additional sequential testing should be carriedout to confirm baseline values. 51-Bbm-066969:42 Aspergillus Antibodies Comments: [facility] (refer to report [...] mg/dL (Normal) Range: 700-1600 Comments: Performed at: [address] [id number] Director: Joseph Velez MD, Phone: [phone] at: [address] [address]Lab Director: Hugo Britt PhD, Phone: [phone] 58-Omm-045304:42 Miscellaneous Lab Comments: Comments: [id number],CLIVE,RTTest(s) Ordered: CLIVE Freedman,[facility] [address] [facility] [place], [place], [address] Procedure MISC Comments: TEST RESULT UNITS REFERENCE INTERVALA. fumigatus #1 Abs NEGATIVE NEGATIVE TESTING PERFORMED AT [facility]. O LAB (Normal) RIGINAL REPORT ON FILE IN LAB CONTAINS ADDITIONAL TEST SITE INFORMATION. TEST 5-Diq-927118:28 Acetylcholine Receptor Comments: Has Patient had Radioactive Injection for X-ray?: [facility] (refer to report for specific site)refer to report for address and phone number ACTYL [id number] < 0.03 nmol/L (Normal) Range: 0.00-0.24 Comments: Negative: 0.00 - 0.24 Borderline: 0.25 - 0.40 Positive: > 0.40Performed at: [address] [id number] Director: Joseph Velez MD, Phone: [phone] 7-Izd-112582:28 BUN 9 mg/dL (Normal) Comments: [facility] [address] [place], [id number] Range: 7-18 :28 Serum Creatinine AND GFR Comments: [facility] [address] [place], [id number] EST GFR - AA 100 mL/min (Normal) Comments: GFR Calc EST GFR 83 mL/min (Normal) Comments: Non- GFR Calc CREAT,SERUM 0.97 mg/dL (Normal) Range: 0.70-1.30 Comments: The validity of the calculated GFR AND GFRAA in patients over70 years has not been determined. Clinical correlation isessential. :13 Culture, Fungus 8482 Comments: [facility] [address] [place], [phone] CUF See Note Comments: Cu,Klhnss3726 TESTING PERFORMED AT [facility]. ORIGINAL REPORT ON FILE IN LAB CONTAINS ADDITIONAL TEST SITE INFORMATION. (Normal) ORGANISM 1: Barron albicansAmount Growth Growth ORGANISM 2: Penicillium speciesAmount Growth Growth :13 Culture, Sputum Comments: [facility] [address] [facility] [address] [place], [id number] CUSP See Note (Normal) Comments: Gram StainAcceptable Specimen? Yes (<25 Epithelial cells per/lpf) Gram Stain 2+ White Blood Cells 2+ Epithelial cells 4+ Gram positive cocci 4+ Gram positive rods Resp. CultureNo Haemoph ilus, Streptococcus pneumoniae, beta-hemolytic Streptococcus or Staphylococcus aureus isolated. ORGANISM 1: Yeast Like OrganismAmount Growth Rare ORGANISM 2: Mixed FloraAmount Growth 3+ 61-Kfr-308473:59 CBC W/Diff, Automated Comments: [facility] [address] [place], [address] Absolute Lymph 1.98 {X10_3/ul} (Normal) [...] 4.6-6.2 WBC 10.8 K/mm3 (Normal) Range: 4.4-11.0 82-Ugr-931377:59 Comprehensive Metabolic Profil Comments: [facility] [address] [place], [phone] GAP 10 (Normal) Range: 5-15 CO2 27.0 [...] A.D.A. criteria.Please note revised GLUCOSE reference range zubwsakkv02/02/2018. 15-Cil-093376:59 Hemoglobin A1c Comments: [facility] [facility] Zfkhvluzna7099 [facility]. [place], [place], [address] HGB A1C 6.2 % (Normal) Range: 4.2-6.3 58-Qtc-095391:59 Lipid Profile Comments: [facility] Zrachedgbf9500 [facility] [place], [place], [address] VLDL 13 mg/dL (Normal) Range: 5-40 LDL [...] 200-240 mg/dL Borderline >240 mg/dL High Risk 87-Vxl-054061:59 Microalb:Creat Ratio,Random UR Comments: [facility] Cmnoefvjak[address] [place], [place], [address] MALB:CREAT 10.1 {mg/g_CRE} (Normal) MICROALBUMIN,UR 5.6 mg/L (Normal) UR CREAT 55.70 mg/dL (Normal) :45 Basic Metabolic Profile (BMP) Comments: [facility] Lfqjkcjnnj3532 [address] [place], [place], [address] GAP 6 (Normal) Range: 5-15 CO2 29.0 [...] Comments: Please note revised GLUCOSE reference range fwskasanc11/02/2018. 9-Pfx-881600:45 Lipid Profile Comments: [facility] Iulmdtpodv6357 [address]. [place], [place], [address] VLDL 22 mg/dL (Normal) Range: 5-40 LDL [...] 200-240 mg/dL Borderline >240 mg/dL High Risk 7-Inz-533138:45 Liver Profile Comments: [facility] Ahshvatert4923 [place], [address] D BILI 0.13 mg/dL (Normal) Range: 0.00-0.30 T BILI 0.50 mg/dL (Normal) Range: 0.20-1.00 ALT 27 U/L (Normal) Range: 16-61 ALK P 53 U/L (Normal) Range: 45-117 AST 20 U/L (Normal) Range: 15-37 GLOB 4.3 g/dL (Abnormal) Range: 2.2-4.2 ALB 3.0 g/dL (Abnormal) Range: 3.2-5.0 T PROT 7.3 g/dL (Normal) Range: 6.4-8.2 00-Zit-605811:31 Basic Metabolic Profile (BMP) Comments: [facility] Evjxdhxqgx0588 [address]. [place], [place], [address] GAP 4 (Abnormal) Range: 5-15 CO2 27.0 [...] A.D.A. criteria.Please note revised GLUCOSE reference range qjnqotijn00/02/2018. 43-Exg-094976:31 CBC-Complete Blood Cnt No Diff Comments: [facility] Alkuylsgsi9548 [place], [address] MPV 8.7 fL (Normal) Range: [...] 4.6-6.2 WBC 9.6 K/mm3 (Normal) Range: 4.4-11.0 16-Btm-315182:31 Partial Thromboplast Time Comments: [facility] Juhpdhvvkc1728 [place], [address] PTT 26.1 s (Normal) Range: 24.1-36.2 61-Mbh-917834:31 Prothrombin Time w/INR Comments: [facility] Ckpizldnuk2169 [place], [address] INR 0.9 (Normal) PROTIME 12.5 s (Normal) Range: 11.7-14.9 :00 Culture, Fungus 8482 Comments: [place] [address] [place], [place], [address] CUF See Note Comments: Cu,Dwngkc3230 TESTING PERFORMED AT [facility]. ORIGINAL REPORT ON FILE IN LAB CONTAINS ADDITIONAL TEST SITE INFORMATION. (Normal) ORGANISM 1: Barron albicansAmount Growth Growth ORGANISM 2: Penicillium speciesAmount Growth Growth ORGANISM 3: Aspergillus speciesAmount Growth Growth :00 Culture, Sputum Comments: [address] [place], [place], [address] CUSP See Note (Normal) Comments: Gram StainAcceptable Specimen? Yes (<25 Epithelial cells per/lpf) Gram Stain 1+ White Blood Cells Rare Epithelial cells 4+ Gram positive rods 1+ Gram negative rods Resp. Culture Mixed nor mal respiratory ashkan. No Haemophilus, Streptococcus pneumoniae, beta-hemolytic Streptococcus or Staphylococcus aureus isolated. 67-Olj-981297:00 Culture, Sputum Comments: [address] [place], [place], [address] CUSP See Note (Normal) Comments: Gram StainAcceptable Specimen? Yes (<25 Epithelial cells per/lpf) Gram Stain 1+ White Blood Cells Rare Epithelial cells 3+ Gram positive cocci Resp. CultureMixed normal respiratory ashkan. No Haemophilus, Streptococcus pneumoniae, beta-hemolytic Streptococcus or Staphylococcus aureus isolated. 26-Nuj-844696:44 TESTOSTERONE FREE (11260) Comments: PATIENT NOT FASTINGPERFORMED BY: [facility] Sptlsb9237 [facility] [id number] BY: [address] [id number] Free Testosterone(Direct) 2.6 pg/mL (Abnormal) Range: 6.6-18.1 80-Kch-669885:44 HEPATITIS C ANTIBODY Comments: PATIENT NOT FASTINGPERFORMED BY: [place] [address]14870 [facility] [id number] BY: [address] [id number] ([address]) Hep C Virus Ab 0.1 {s/co_ratio} (Normal) Range: 0.0-0.9 Comments: Negative: < 0.8 Indeterminate: 0.8 - 0.9 Positive: > 0.9 . The CDC recommends that a positive HCV antibody result be followed up with a HCV Nucleic Acid Amplification test (935279). 73-Fqw-420770:44 CBC W/AUTO DIFF WBC Comments: PATIENT NOT FASTINGPERFORMED BY: [facility] CenterPropel FuelsKathryn Ville 8474670 [facility] [id number] BY: [address] [id number] ([address]) Immature Grans (Abs) 0.0 {x10E3/uL} (Normal) Range: [...] 4.14-5.80 WBC 6.1 {x10E3/uL} (Normal) Range: 3.4-10.8 72-Iti-026554:44 METABOLIC PANEL, Comments: PATIENT NOT FASTINGPERFORMED BY: CB [facility] Teybce0629 [facility] [id number] BY: BN [facility] Mzzoxqbgjx3168 [facility] [id number] COMPREHENSIVE (28572) ALT (SGPT) 17 [iU]/L (Normal) Range: 0-44 [...] 8-27 Glucose 102 mg/dL (Abnormal) Range: 65-99 67-Cte-304882:15 HgA1C , Office (30254) HgA1C , Office 5.7 % (Normal) Range: 4.6 - 7.1 :30 CBC W/Diff, Automated Comments: [facility] Hbhwvmekvf1303 [address] [place], [place], [address] Absolute Lymph 1.76 {X10_3/ul} (Normal) Range: 0.83-4.51 [...] 4.6-6.2 WBC 6.7 K/mm3 (Normal) Range: 4.4-11.0 00-Pbq-985289:30 Comprehensive Metabolic Profil Comments: [facility] Emombvduuv2367 [address]. [place], [address] GAP 9 (Normal) Range: 5-15 CO2 25.0 [...] 7-18 GLU 78 mg/dL (Normal) Range: 70-110 66-Nzs-287489:30 Culture, Urine Comments: [facility] Xhdwwraxmj6031 [address]. [place], [address] CUUR See Note (Normal) Comments: Urine CultureCulture exhibits no growth. 21-Zbn-173295:30 Lipid Profile Comments: [facility] Xorpndfljo4526 [address]. [place], [address] VLDL 19 mg/dL (Normal) Range: 5-40 LDL [...] 200-240 mg/dL Borderline >240 mg/dL High Risk 67-Mhc-439106:10 Rapid Strep Test, Office (59874) Comments: Negative Rapid Strep Test, Office Negative (Normal) 28-Ycn-71354:51 THROAT CULTURE (05545) Comments: PATIENT NOT FASTINGPERFORMED BY: [facility] [id number] Information: SRC:TH Result 1 RRF (Normal) Comments: Routine respiratory ashkan Upper Respiratory Culture Final report (Normal) 81-Hxi-182887:02 Rapid Flu (09256 x 2) Comments: Negative Influenza A Ag Negative (Normal) 62-Pzv-664795:45 URINE WARREN CULTURE-IDENTIFICATN Comments: PERFORMED BY: [employer] LabComfyware [facility] [id number] Information: SRC:UC (12051) Result 1 NG36 (Normal) Comments: No growth in 36 - 48 hours. Urine Culture,Comprehensive Final report (Normal) 95-Itm-748362:02 Urinalysis, Office (89674) UA - LEUKOCYTE ESTERASE Negative (Normal) UA - NITRITE Negative (Normal) URINE UROBILINGN MASSIEL TIMED Normal mg/dL (Normal) UA - PROTEIN Negative mg/dL (Normal) UA - PH 7 (Normal) UA - BLOOD Negative (Normal) UA - SPECIFIC GRAVITY 1.020 (Normal) UA - KETONES Negative mg/dL (Normal) UA - BILIRUBIN Negative (Normal) UA - GLUCOSE Negative (Normal) 08-Amf-043367:22 CBC W/Diff, Automated Comments: [facility] Vqjbaeiemu5890 [place], [address] Absolute Lymph 1.50 {X10_3/ul} (Normal) [...] Range: 4.4-11.0 :22 Comprehensive Metabolic Profil Comments: [facility] Lrlsdyktfo3520 [place], [address] ; will review opn 11/10 [...] 7-18 GLU 104 mg/dL (Normal) Range: 70-110 48-Ttr-422676:22 Hemoglobin A1c Comments: [facility] Yvxvzppsmk1401 [place], [address] HGB A1C 5.6 % (Normal) Range: 4.2-6.3 17-Zlb-531248:22 Immunofixation, Serum Comments: [facility] (refer to report for specific site)refer to report for address and phone number PAULA RESULT,S Comment (Normal) Comments: No monoclonality detected. IMMUNOGL M 53 mg/dL (Normal) Range: 20-172 IMMUNO A 169 mg/dL (Normal) Range: 61-437 IMMUNO G 692 mg/dL (Abnormal) Range: 700-1600 61-Xai-456113:22 [place] [employer] Comments: [facility] (refer to report for specific site)refer to report for address and phone number KAPPA/LAMBDA % 1.17 (Normal) Range: 0.26-1.65 Comments: Performed at: - [facility] [address] [id number] Director: Hugo Britt PhD, Phone: [phone] FR LAMBDA LT CH 12.3 mg/L (Normal) Range: 5.7-26.3 FR KAPPA LT CHN 14.4 mg/L (Normal) Range: 3.3-19.4 68-Pjv-518722:22 Lipid Profile Comments: [facility] Pmznzrtoyd6931 [place], [address] VLDL 20 mg/dL (Normal) Range: [...] 200-240 mg/dL Borderline >240 mg/dL High Risk 02-Ywt-811523:22 Microalb:Creat Ratio,Random UR Comments: [facility] Yjqlxuvlub6013 [place], [address] ; will review on 11/10 MALB:CREAT 5.6 {mg/g_CRE} (Normal) MICROALBUMIN,UR 7.2 mg/L (Normal) UR CREAT 128.00 mg/dL (Normal) 32-Qhc-921751:22 PSA,Total - Annual Screen Comments: [facility] Dehfkrpmyn6626 [place], [address] PSA,TOT SCREEN 0.63 ng/mL (Normal) Range: 0.00-4.00 Comments: This test was performed using the TPSA assay method for the[facility] chemistry system. Values obtained with differentassay methods cannot be used interchangably.When changing PSA assays in the course of monitoring apatient, additional sequential testing should be carriedout to confirm baseline values. :07 CBC W/Diff, Automated Comments: [facility] [address] [place], [place], [address] Absolute Lymph 1.42 {X10_3/ul} (Normal) Range: 0.83-4.51 [...] Range: 4.4-11.0 :07 Comprehensive Metabolic Profil Comments: [facility] J[address] [place], [place], [address] GAP 8 (Normal) Range: 5-15 CO2 27.0 [...] 7-18 GLU 104 mg/dL (Normal) Range: 70-110 84-Mnh-316922:07 Hemoglobin A1c Comments: [facility] Xcyblctljo6455 [address] [place], [place], [address] HGB A1C 5.6 % (Normal) Range: 4.2-6.3 99-Uoz-574737:07 PAULA + Protein Elect, Serum Comments: Is Patient F[facility]? [facility] (refer to report for specific site)refer to report for address and phone number NOTE: Comment (Normal) Comments: Protein electrophoresis scan will follow via computer,mail, or agricultural engineering technologist delivery.Performed at: [facility] Lab[address] [id number] Director: Hugo Britt PhD, Phone: [phone] PAULA RESULT,S Comment (Normal) Comments: No monoclonality detected. A/G RATIO 1.2 (Normal) Range: 0.7-1.7 GLOBULIN, TOTAL 3.0 g/dL (Normal) Range: 2.2-3.9 M-SPIKE g/dL (Normal) Comments: Not Observed GAMMA GLOBULIN 0.7 g/dL (Normal) Range: 0.4-1.8 BETA GLOBULIN 1.1 g/dL (Normal) Range: 0.7-1.3 NEHIK-4-BZBH 0.8 g/dL (Normal) Range: 0.4-1.0 PVEVT-9-SATX 0.3 g/dL (Normal) Range: 0.0-0.4 ALBUMIN 3.3 g/dL (Normal) Range: 2.9-4.4 IMMUNOGL M 53 mg/dL (Normal) Range: 20-172 IMMUNO A 177 mg/dL (Normal) Range: 61-437 IMMUNO G 761 mg/dL (Normal) Range: 700-1600 PROTEIN,TOTAL 6.3 g/dL (Normal) Range: 6.0-8.5 57-Ppq-111501:07 Lipid Profile Comments: [facility] [address] [place], [place], [address] VLDL 21 mg/dL (Normal) Range: 5-40 LDL [...] 200-240 mg/dL Borderline >240 mg/dL High Risk 14-Ypp-724394:01 CBC W/Diff, Automated Comments: [facility] Dvog[address]awcf[address] [place], [address] Absolute Lymph 1.62 {X10_3/ul} (Normal) [...] 4.6-6.2 WBC 7.6 K/mm3 (Normal) Range: 4.4-11.0 37-Zie-141508:01 Comprehensive Metabolic Profil Comments: [facility] Stdbknodle9032 Andrea [place], [place], [address] ; has apt today GAP 7 (Normal) [...] 7-18 GLU 96 mg/dL (Normal) Range: 70-110 95-Rxm-130039:01 Lipid Profile Comments: [facility] Toxeggkasj9051 [facility]. [place], [place], [address] VLDL 11 mg/dL (Normal) Range: 5-40 LDL [...] 200-240 mg/dL Borderline >240 mg/dL High Risk 12-Pvf-135361:01 Lipoprotein A 369 nmol/L (Abnormal) Comments: [facility] [...] genetic factors on Lp(a) across ethnicities.Performed at: [employer] [facility] [address] [id number] Director: Hugo Britt PhD, Phone: [phone] 93-Mcc-786402:56 HgA1C , Office (43241) HgA1C , Office 5.6 % (Normal) Range: 4.6 - 7.1 6-Fza-181772:19 ANCA Panel Comments: PATIENT NOT FASTINGPERFORMED BY: [address] [id number] BY: [employer] [address] [id number] Atypical pANCA <1:20 {titer} Comments: The atypical [...] follow up testing ofpositive sera with both DC-3 and MPO-ANCA enzyme immunoassays. Asmany as 5% serum samp les are positive only by EIA.Ref. AM J Clin Pathol 1999;111:507-513. Cytoplasmic (C-ANCA) <1:20 {titer} (Normal) Antiproteinase 3 (DC-3) Abs <3.5 U/mL (Normal) Range: 0.0-3.5 Antimyeloperoxidase (MPO) Abs <9.0 U/mL (Normal) Range: 0.0-9.0 0-Cop-961351:19 Antinuclear Antibodies Comments: PATIENT NOT FASTINGPERFORMED BY: [address] [id number] BY: [facility]6370 [facility] [id number] Direct JOHN Direct Negative (Normal) :1 C-Reactive Protein, 2.1 mg/L (Normal) Comments: PATIENT NOT FASTINGPERFORMED BY: [address] [id number] BY: [facility]6370 [facility] [id number] Quant Range: 0.0-4.9 :19 Rheumatoid Arthritis Comments: PATIENT NOT FASTINGPERFORMED BY: [address] [id number] BY: [place] [address]14870 [facility] [id number] Factor RA Latex Turbid. 7.8 {IU/mL} Range: 0.0-13.9 (Normal) Sedimentation 8 mm/h (Normal) Comments: PATIENT NOT FASTINGPERFORMED BY: [address] [id number] BY: [place] 3314870 [facility] [id number] :19 Rate-Westergren Range: 0-30 Thyroid Peroxidase (TPO) 8 {IU/mL} (Normal) Comments: PATIENT NOT FASTINGPERFORMED BY: [address] [id number] BY: [place] 3314870 [facility] [id number] :19 Ab Range: 0-34 :19 Thyroxine (T4) Free, Comments: PATIENT NOT FASTINGPERFORMED BY: [address] [id number] BY: [place] 3314870 [facility] [id number] Direct, S T4,Free(Direct) 1.11 ng/dL Range: 0.82-1.77 (Normal) Triiodothyronine,Free,Seru 2.5 pg/mL (Normal) Comments: PATIENT NOT FASTINGPERFORMED BY: [facility]1447 [facility] [id number] BY: [facility]6370 [facility] [id number] 2:19 m Range: 2.0-4.4 TSH 3.450 {uIU/mL} Comments: PATIENT NOT FASTINGPERFORMED BY: [facility] [id number] BY: [facility]6370 [facility] [id number] 2:19 (Normal) Range: 0.450-4.500 8-Kys-492022:30 Pathology Report Comments: PERFORMED BY: wmbly [facility] Tymzy89278 [facility] [id number] Information: [id number] See MATER Comments: Material submitted: .FOREHEAD SHAVE [...] IN CASSETTE(S) A./CORCOR/CORPa thologist provided ICD-10:D48.5, L90.9CPT .524258 97-Mdf-70568:22 TESTOSTERONE FREE (94362) Comments: PATIENT WAS FASTINGPERFORMED BY: [facility] [id number] BY: [employer] [id number] Free Testosterone(Direct) 2.5 pg/mL (Abnormal) Range: 6.6-18.1 56-Qqh-38864:22 VITAMIN B-12 (CYANOCOBALAMIN) Comments: PATIENT WAS FASTINGPERFORMED BY: [employer]70 [employer] Caro CenterWeddingfulECU [facility] [id number] BY: [employer] [id number] (73420) Vitamin B12 638 pg/mL (Normal) Range: 211-946 40-Nph-34286:22 CBC W/AUTO DIFF WBC Comments: PATIENT WAS FASTINGPERFORMED BY: [facility] CenterWeddingfulEC[facility] [id number] BY: [employer] [id number] Inf ormation: NURSE DRAW (05677) Immature Grans (Abs) 0.0 {x10E3/uL} (Normal) Range: [...] 4.14-5.80 WBC 7.3 {x10E3/uL} (Normal) Range: 3.4-10.8 77-Gvl-11708:22 METABOLIC PANEL, Comments: PATIENT WAS FASTINGPERFORMED BY: CB [facility] Wmwiml4059 [facility] [id number] BY: [facility] [address] [id number] RUST (54654) ALT (SGPT) 12 [iU]/L (Normal) Range: 0-44 [...] Glucose, Serum 100 mg/dL (Abnormal) Range: 65-99 71-Dev-80888:52 CBC W/Diff, Automated Comments: [facility] Qyskupgdem9[address] [place], [place], [address] Absolute Lymph 1.73 {X10_3/ul} (Normal) Range: 0.83-4.51 [...] 4.6-6.2 WBC 6.0 K/mm3 (Normal) Range: 4.4-11.0 39-Siq-17806:52 Comprehensive Metabolic Profil Comments: [facility] Pydzrjrzgk9517 Andrea [place], [place], [address] GAP 6 (Normal) Range: 5-15 CO2 26.0 [...] (Normal) Range: 70-110 :52 Hemoglobin A1c Comments: [facility] [address] [place], [place], [address] HGB A1C 5.6 % (Normal) Range: 4.2-6.3 :52 Lipid Profile Comments: [facility] K[address] [place], [address] VLDL 21 mg/dL (Normal) Range: [...] High Risk :52 Microalb:Creat Ratio,Random UR Comments: [facility] Z[address] [place], [address] MALB:CREAT 9.1 {mg/g_CRE} (Normal) MICROALBUMIN,UR 9.0 mg/L (Normal) UR CREAT 99.50 mg/dL (Normal) :52 PSA,Total - Annual Screen Comments: [facility] [address] [place], [address] PSA,TOT SCREEN 0.51 ng/mL (Normal) Range: 0.00-4.00 Comments: This test was performed using the TPSA assay method for [facility] chemistry system. Values obtained with differentassay methods cannot be used interchangably.When changing PSA assays in the course of monitoring apatient, additional sequential testing should be carriedout to confirm baseline values. COLON BIOPSY (CHOOSE See Note (Normal) Comments: [facility] Xemuzfdgvu2265 [place], [address] :45 SITE) Comments: Patient: YUMIKO LANDRUM : 1950 (64/M) Acct Num: [id number] Phys: Hugo Bullock Unit Num: [id number] Loc: LABSPEC Specimen: [id number] Received: 09/11/151646 Spec Type: C OLON BX [...] in one cassette. / IRON:momo 09/11 TC:1 CPT:58902 x2 HEADER OPERATION: Colonoscopy with biopsy PRE-OP DIAGNOSIS: Screening/polyp TISSUE SUBMITTED: A - Polyp cecum, R/O adenoma, B - Polyp sigmoid, R/O adenoma MICROSCOP IC DESCRIPTION Slides are reviewed. MICROSCOPIC DIAGNOSIS A. Polyp cecum, biopsy: Fragments of tubular adenoma. B. Polyp sigmoid, biopsy: Fragments of tubular adenoma. SJ:momo 09/15/15 Signed Pamella Son 09/15/15 <signature on file> :37 CBC W/Diff, Automated Comments: [facility] Tdueimmcor70[address] [place], [place], [address] ; noon-emergent till apt Absolute Lymph 1.39 [...] 4.6-6.2 WBC 6.5 K/mm3 (Normal) Range: 4.4-11.0 91-Hta-845599:37 Comprehensive Metabolic Profil Comments: [facility] Gcgadhzgyr3902 [address] [place], [place], [address] GAP 6 (Normal) Range: 5-15 CO2 27.0 [...] <126 mg/dLsuggests IMPAIRED HOMEOSTASIS per A.D.A. criteria. 97-Ece-198435:37 Hemoglobin A1c Comments: [facility] Igjdqdfbgh2997 [facility] [place], [place], [address] HGB A1C 5.6 % (Normal) Range: 4.2-6.3 48-Qim-647088:37 Lipid Profile Comments: [facility] [address] [place], [place], [address] VLDL 17 mg/dL (Normal) Range: 5-40 LDL [...] 200-240 mg/dL Borderline >240 mg/dL High Risk 6-Quk-171271:12 Factor II, DNA Analysis Comments: [facility] (refer to report for specific site)refer to report for address and phone number COMMENT Comment (Normal) Comments: Genetic Counselors are available for health care providersto discuss results at [phone] (4813).Methodology:DNA analysis of the Factor II gene was performed by PCRamplification followed by restric tion analysis. Thediagnostic sensitivity is >99% for both. All the tests mustbe combined with clinical information for the most accurateinterpretation. Molecular-based testing is highly accurate,but as in any laboratory test, diagnostic errors may occur.Matthewt SR, et al. Blood. 1996; 88:6687-1961.Diallo EA. Circulation. 2004; 110:e15-e18.Bobby I, et al. Arterioscler Thromb Vasc Biol. 1999;19:700 -703.Lance Shea, PhDRuthie Cooper, PhDAnahy Delgado, Lorena Beal, Xiomara Easley, PhDKelly Benjamin, PhDPerformed at: TG - [facility] WFF[address] [place], [place] [id number] villa: Vilma Butterfield MD, Phone: [phone] FACTOR II,DNA Comment (Normal) Comments: NEGATIVENo mutation identified.Comment:A point mutation ([id number]) in the factor II (prothrombin)gene is the [...] individual mutations. This assaydetects only the prothrombin V84661Y mutation and doesnot measure genetic abnormalities elsewhere i n thegenome. Other thrombotic risk factors may be pursuedthrough systematic clinical laboratory analysis. Thesefactors include the R506Q (Leiden) mutation in the Factor Vgene, plasma homocysteine levels , as well as testing fordeficiencies of antithrombin III, protein C and protein S. 58-Ums-97089:42 Miscellaneous Comments: Comments: [id number],PLASMA,[facility](s) Ordered: [id number],PLASMA,[facility] [address]owtckiirk[address] [place], [address] Lab Procedure MISC Comments: TEST RESULT UNITS REFERENCE INTERVALAntithrombin III, Func/ImmunolAntithrombin Activity 97 % 75 - 135Antithrombin Antigen 97 % 75 - 130 LAB (Normal) TESTING PERFORMED AT [facility]. ORIGINAL REPORT ON FILE IN LAB CONTAINS ADDITIONAL TEST SITE INFORMATION. TEST 1 Throm 15.9 Comments: [facility] (refer to report for specific site)refer to report for address and phone number 9 bin {sec} Range: 0.0-20.0 - Time (Normal) Comments: Performed at: [address] [place], [place] [id number] Director: Joseph Velez MD, Phone: [phone] F e b - 2 0 1 6 9 : 4 2 :34 CBC W/Diff, Automated Comments: [facility] [address]cf[address] [place], [address] Absolute Lymph 1.34 {X10_3/ul} (Normal) [...] (Normal) Range: 4.4-11.0 :34 Comprehensive Comments: Comments: [id number],ELENO PALMERParkview Health [facility] Hospital [address]vlfxdrlpr[address] [place], [place], [address] ; apt today Metabolic Profil GAP 8 [...] 7-18 GLU 109 mg/dL (Normal) Range: 70-110 96-Xwz-82921:34 Fact V Leiden Mutation Comments: [facility] (refer to report for specific site)refer to report for address and phone number COMMENT Comment (Normal) Comments: Genetic counselors are available for health careproviders to discuss results at [phone]).Methodology:DNA analysis of the Factor V gene was [...] Xiomara lugo, PhDKelly Benjamin, PhDPerformed at: - LabCoMatheny Medical and Educational CenterBvesbfbkkk4771 [place], [place] [address]Apa Director: Joseph Velez MD, Phone: [phone] at: [facility] SUA1790 [place], [place] [address]Jgd Director: Vilma Butterfield MD, Phone: [phone] FACTOR V LEIDEN Comment (Normal) Comments: Result: [...] in the workup for venous thrombosis include [id number] mutation in the factor II (prothrombin) gene,protein S and C deficiency, and antithrombin deficiencies.Anticardiolipin antibody and lupus anticoagu lant analysismay be appropriate for certain patients, as well ashomocysteine levels.Contact your local [facility] for information on how to orderadditional testing if desired. :34 Hemoglobin A1c Comments: [facility] [address] [place], [place], [address] HGB A1C 5.6 % (Normal) Range: 4.2-6.3 :34 Lipid Profile Comments: Comments: [id number],SPENCERSumma Health [address]yyfoyu[address] [place], [address] VLDL 17 mg/dL (Normal) Range: [...] 200-240 mg/dL Borderline >240 mg/dL High Risk 23-Stb-27504:34 Miscellaneous Lab Comments: Comments: [id number],BLUEANDRED,FZTest(s) Ordered: SPENCER Gonsalves FZParkview Health [facility] Hospital Rizvsogfqw1044 [address] [place], [address] Procedure MIS Comments: TEST RESULT UNITS REFERENCE [...] anticoagulant is not de tected. aCL and Z3UC3ndhrcafchf are normal.ANTIPHOSPHOLIPID SYNDROME ASSESSMENT SUMMARY-No evidence of a lupus anticoagulant, B2GP1 or aCLantibodies. As antibody titers may fluctuate with time,repeat te sting may be indicated if antiphospholipid syndromeis suspected.ANTIPHOSPHOLIPID SYNDROME ASSESSMENT DEFINITIONS-aCL- anticardiolipin (antibodies to cardiolipin); M9FN8-jhdykbgpal to Beta-2 Glycoprotein 1; LA- lupus anticoagulant(which is identified with the dRVVT and/or hexagonalphospholipid neutralization assays); aPL- antibodies toprotein/phospholipid complexes such as LA, aCL, and W2RY2tskhoaguxd; APS- antiphospholipid syndrome; DTI-directthrombin inhibitors.-HELIX COIL WINDER:For questions regarding panel interpretation, please contactHalle Arrington [...] V et al. J Thromb Haemost. 2009; 7(10):3584-0295.(2) Tyrone S et al. J Thromb H aemost. 2006;4(2):295-306.(3) Keith DA et al. Blood. 2007;110(9): 3731-0628. [facility] ORIGINAL REPORT ON FILE IN LAB [...] PROTEIN S,TOTAL 136 % (Normal) Range: 58-150 76-Ydy-862865:54 CBC W/Diff, Automated Comments: [facility] [address] [place], [place], [id number] Absolute Lymph 1.61 {X10_3/ul} (Normal) Range: 0.83-4.51 [...] 4.6-6.2 WBC 7.1 K/mm3 (Normal) Range: 4.4-11.0 07-Nuh-326956:54 Comprehensive Metabolic Profil Comments: [facility] [address] [place], [place], [address] GAP 7 (Normal) Range: 5-15 CO2 26.0 [...] 7-18 GLU 98 mg/dL (Normal) Range: 70-110 99-Bwt-648590:54 Lipid Profile Comments: [facility] [address] [facility] [place], [address] ; apt today VLDL 19 [...] :55 Comprehensive Metabolic Profil Comments: Test performed at:[facility] [address] [facility] [place] [address] GAP 7 (Normal) Range: 5-15 [...] 70-110 :55 Hemoglobin A1c Comments: Test performed at:[facility] [address] [place] [address] HGB A1C 6.0 % (Normal) Range: 4.2-6.3 :55 Lipid Profile Comments: Test performed at:[facility] [address] [place] [address] VLDL 17 mg/dL (Normal) Range: 5-40 LDL [...] 200-240 mg/dL Borderline >240 mg/dL High Risk 69-Gye-100183:49 Anti-dsDNA Ab Comments: ADDED PER VERBAL ORDER - FAXED ORDER TO FOLLOWSpecimen Comment: A duplicate report has been generated due to demographicSpecimen Comment: updates.Test performed at:[facility] Laboratory1 [address] [place] [address] dsDNA AB 12 {IU/mL} (Abnormal) Range: 0-9 Comments: Negative <5 Equivocal 5 - 9 Positive >9; ADDENDA: non-emergent because has apt today to discuss. 44-Jei-177045:49 ANTINUCLEAR ANTIBODIES DIRECT Comments: Test performed at:[facility] [address] [place] [address] JOHN-DIRECT Positive (Abnormal) Comments: Performed at: [address] [id number] Director: Reno Yanes PhD, Phone: [phone] 21-Wrd-652219:49 CBC W/Diff, Automated Comments: Test performed at:[facility] [address] [place] [address] Absolute Lymph 1.22 {X10_3/ul} (Normal) [...] 4.6-6.2 WBC 4.9 K/mm3 (Normal) Range: 4.4-11.0 87-Egu-926231:49 Comprehensive Metabolic Profil Comments: Test performed at:[facility] [address] [place] [address] GAP 6 (Normal) Range: 5-15 [...] 7-18 GLU 104 mg/dL (Normal) Range: 70-110 36-Auo-365505:49 CRP Comments: Test performed at:[facility] [address] [facility]. [place], [place] [id number] C-REACTIVE PROT < 2.90 mg/L (Normal) Range: 0.0-3.0 Comments: C-Reactive Protein (CRP) provides useful information for thediagnosis, therapy and monitoring of inflammatory processesand associated diseases. For the evaluation of Relative Riskfor Cardiovascular Dise ase, a High Sensitivity CRP (HSCRP)should be ordered. :49 Culture, Urine Comments: Test performed at:[facility] [address] [place] [address] CUUR See Note (Normal) Comments: Urine CultureCulture exhibits no growth.; ADDENDA: Pt has apt today, will discuss then :49 Erythrocyte Sed Rate Comments: Test performed at:[facility] [address] [place] [address] SED RATE 21 mm/h (Abnormal) Range: 0-20 26-Yld-267105:49 Hemoglobin A1c Comments: Test performed at:[facility] [address] [place] [address] HGB A1C 5.8 % (Normal) Range: 4.2-6.3 93-Hfq-766966:49 Lipid Profile Comments: Test performed at:[facility] [address] [place] [address] VLDL 8 mg/dL (Normal) Range: [...] 200-240 mg/dL Borderline >240 mg/dL High Risk 58-Nvc-895244:49 Microalb:Creat Ratio,Random UR Comments: Test performed at:[facility] [address] [place] [address] MALB:CREAT 12.2 {mg/g_CRE} (Normal) MICROALBUMIN,UR 17.2 mg/L (Normal) UR CREAT 140.0 mg/dL (Normal) :49 PSA,Total - Annual Screen Comments: Test performed at:[facility] [address] [place] [address] PSA,TOT SCREEN 0.47 ng/mL (Normal) Range: 0.00-4.00 Comments: This test was performed using the TPSA assay method for [facility] chemistry system. Values obtained with differentassay methods cannot be used interchangably.When changing PSA assays in the course of monitoring apatient, additional sequential testing should be carriedout to confirm baseline values. :49 Thyroid Stim Hormone (TSH) Comments: Test performed at:[facility] [address] [place] [address] TSH 1.60 {uIU/mL} (Normal) Range: 0.358-3.74 14-Ikg-838126:49 Urinalysis, Complete Comments: How was Urine Obtained? Urine, RandomTest performed at:[facility] [address] [place] [address] MUCUS, URINE 0 SEEN {/hpf} (Normal) BACTERIA [...] How was Urine Obtained? Urine, RandomTest performed at:[facility] [address] [facility] [place] [address] MUCUS, URINE 2+ {/hpf} (Normal) [...] (Normal) CLARITY Clear (Normal) COLOR Yellow (Normal) 76-Dze-579360:07 Comprehensive Metabolic Profil Comments: Test performed at:[facility] [address] [facility]. [place], [place] [address] GAP 6 (Normal) Range: 5-15 CO2 28.0 [...] 7-18 GLU 108 mg/dL (Normal) Range: 70-110 25-Ity-393457:07 CPK Total, Creatine Kinase Comments: Test performed at:[facility] [address] [place], [place] [address] CPK TOTAL 91 U/L (Normal) Range: 39-308 09-Rpy-304472:56 Rapid Flu (33399 x 2) Influenza A Ag negative (Normal) 5-Ydi-196922:28 URINE WARREN CULTURE-MASSIEL COL Comments: PATIENT NOT FASTINGPERFORMED BY: [facility] [address]zt[address] [facility] [id number] Information: SRC:UR [id number] COUNT (11058) Result 1 ECV (Abnormal) Comments: Escherichia coli, [...] R Urine Final report Culture,Comprehensi (Abnormal) ve 7-Fgf-790813:58 Urinalysis, Office (53012) UA - LEUKOCYTE ESTERASE Small (Normal) UA - NITRITE Negative (Normal) URINE UROBILINGN MASSIEL TIMED 2 mg/dL (Normal) UA - PROTEIN 30 mg/dL (Normal) UA - PH 6.0 (Normal) Comments: 5.5 UA - BLOOD Hemolyzed Small (Normal) UA - SPECIFIC GRAVITY 1.030 (Abnormal) UA - KETONES Negative mg/dL (Normal) UA - BILIRUBIN Small (Normal) UA - GLUCOSE Negative (Normal) 9-Olw-296822:41 URINE WARREN CULTURE-MASSIEL COL Comments: PATIENT NOT FASTINGPERFORMED BY: [facility] [facility] [id number] Information: SRC: URINE COUNT (85329) Result 1 ECV (Abnormal) Comments: Escherichia coli, [...] R Urine Final report Culture,Comprehensi (Abnormal) ve 1-Dwh-461225:27 Urinalysis, Office (56728) UA - LEUKOCYTE ESTERASE Trace (Normal) UA - NITRITE Negative (Normal) URINE UROBILINGN MASSIEL TIMED 2 mg/dL (Normal) UA - PROTEIN Negative mg/dL (Normal) UA - PH 6.0 (Normal) UA - BLOOD Negative (Normal) UA - SPECIFIC GRAVITY 1.010 (Normal) UA - KETONES Negative mg/dL (Normal) UA - BILIRUBIN Negative (Normal) UA - GLUCOSE Negative (Normal) 3-Dmd-411983:30 HgA1C , Office (80530) HgA1C , Office 5.7 % (Normal) Range: 4.6 - 7.1 0-Cxs-787605:10 URINE WARREN CULTURE-MASSIEL COL Comments: PATIENT NOT FASTINGPERFORMED BY: [facility]6[address] [facility] [id number] Information: SRC:UR R02284 COUNT (26969) Result 1 NG36 (Normal) Comments: No growth in 36 - 48 hours. Urine Culture,Comprehensive Final report (Normal) 8-Xix-906937:58 CBCD PATHR Reviewed (Normal) RBCM NORM C+C [...] 4.6-6.2 WBC 5.2 K/mm3 (Normal) Range: 4.4-11.0 6-Nap-918329:58 CMP GAP 7 (Normal) Range: 5-15 CO2 [...] CHOL 155 mg/dL (Normal) Comments: <200 mg/dL Ngoymjaab774-100 mg/dL Borderline>240 mg/dL High Risk TRIG 121 [...] (Normal) UCLAR Clear (Normal) UCOL Yellow (Normal) 63-Pyh-563485:20 CUUR URC See Note (Normal) Comments: ESBL+ [...] >=320 R (NF) indicates non-formulary drug at [facility]. Approval by Infectious DiseaseSpecialist required before non-formulary drugs may beordered and/or dispensed. 31-Jyk-209045:20 UA Comments: How was Urine Obtained? CLEAN CATCH ANGE 500 /ul (Abnormal) MICA Negative (Normal) UOB 25 /ul (Abnormal) LEESA 6.0 (Normal) Range: 5.0 - 8.0 uPROTU 30 mg/dL (Abnormal) UROBU 1 mg/dL (Abnormal) KETU Negative mg/dL (Normal) SGU 1.015 (Normal) Range: 1.002-1.030 BILIU Negative mg/dL (Normal) GLUR Normal mg/dL (Normal) UCLAR Cloudy (Normal) UCOL Yellow (Normal) 40-Gym-238957:27 A1C 5.6 % (Normal) Range: 4.2-6.3 36-Uio-127845:27 B12 574 pg/mL (Normal) Range: 211-911 42-Lnc-074858:27 CBC MPV 8.8 fL (Normal) Range: 6.2-12.0 [...] 4.6-6.2 WBC 6.4 K/mm3 (Normal) Range: 4.4-11.0 30-Jvq-802909:27 CUUR URC Culture exhibits no growth. (Normal) 25-Tum-006568:27 EBGM EBNA 81.6 U/mL (Abnormal) Range: 0.0-17.9 Comments: Negative <18.0Equivocal 18.0 - 21.9Positive >21.9 tEBINT Comment (Normal) Comments: EBV Interpretation ChartInterpretation EBV-IgM VCA-IgG EBNA-IgG EA(D)-IgGEBV Seronegative - - - -Early Phase + - - -Acute Primary + + - +or-InfectionConvalescence/Past - + + +or-InfectionReactivated +or- + + +Infection+ Antibody Present - Antibody Absen tPerformed at: [facility] Lab[address] [id number] Director: Melquiades Hector MD, Phone: [phone] EBEAG <9.0 U/mL (Normal) Range: 0.0-8.9 Comments: [...] <0.05 NEGATIVE0.06 - 0.59 AT RISK OF AL> OR = 0.60 SUGGEST AL :47 HgA1C , Office (18269) HgA1C , Office 6.3 % (Normal) Range: [...] CHOL 147 mg/dL (Normal) Comments: <200 mg/dL Qfahbrrbc947-884 mg/dL Borderline>240 mg/dL High Risk 8-Vbc-692302:55 Rapid Flu (26264 x 2) Comments: neg Influenza A Ag negative (Normal) 2-Oel-392158:02 FECAL OCCULT- Tubes sent home (36988) FECAL OCCULT HGB ASSAY, QUAL, 1-3 negative [...] {IU/mL} (Normal) Range: 0-100 Comments: Performed at: [facility] Lab[address] Director: Melquiades Hector MD, Phone: [phone] IMM 55 mg/dL (Normal) Range: 40-230 DEBBY 182 mg/dL (Normal) Range: 91-414 IMG 788 mg/dL (Normal) Range: 700-1600 :39 LDH 190 U/L (Normal) Comments: Serial Specimen #1, #2 or #3? 1Is Patient Taking Vitamins or Folic Acid Supplements? N Range: 84-246 :39 PROEL Comments: Is Patient Fasting? Y m77HHHJHX Comment (Normal) Comments: Protein electrophoresis scan will follow via computer,mail, or agricultural engineering technologist delivery. tPROELAG 1.6 (Normal) Range: 0.7-2.0 tPROELIN [...] Supplements? N Range: 250-450 :56 CULTURE, SPUTUM (42268) Comments: PATIENT NOT FASTINGPERFORMED BY: [facility]Yvqnge0678 [facility] [id number] Information: SRC:[facility] [id number] Result 1 RRF (Normal) Comments: Routine respiratory ashkan Lower Respiratory Culture Final report (Normal) :32 HgA1C , Office (83545) HgA1C , Office 5.9 % (Normal) Range: 4.6 - 7.1 :32 Blood Glucose , Office (48777) Blood Glucose , Office 90 (Normal) :51 [...] 4.6-6.2 WBC 7.2 {k/mm3} (Normal) Range: 4.4-11.0 44-Oqt-515191:51 CMP GAP 9 (Normal) Range: 5-15 CO2 [...] CHOL 149 mg/dL (Normal) Comments: <200 mg/dL Iwdffplfq693-025 mg/dL Borderline>240 mg/dL High Risk :51 PSA 0.51 ng/mL (Normal) Range: 0.00-4.00 Comments: This test was performed using the TPSA assay method for the[employer] chemistry system. Values obtained with differentassay methods cannot be used interchangably.When changing PSA assays in the course of monitoring apatient, additional sequential testing should be carriedout to confirm baseline values. 01-Flh-920962:59 MISC (Normal) Comments: TEST RESULT LIMITSAntinuclear Antibodies, [...] 4.6-6.2 WBC 7.8 {k/mm3} (Normal) Range: 4.4-11.0 76-Mms-271828:32 CMP GAP 10 (Normal) Range: 5-15 CO2 [...] CHOL 154 mg/dL (Normal) Comments: <200 mg/dL Wvmvcbphi051-237 mg/dL Borderline>240 mg/dL High Risk HDL 64 [...] (Normal) UCLAR Clear (Normal) UCOL Yellow (Normal) 92-Kvm-585861:11 AFBCS tAFBC See Note Comments: TESTING PERFORMED AT [facility]. ORIGINAL REPORT ONFILE IN LAB CONTAINS ADDITIONAL TEST SITE INFORMATION. (Normal) CULTURE, ACID FAST FINAL CULTURE REPORT TO FOLLOW IN 6 WEEKS. tAFBSF See Note Comments: TESTING PERFORMED AT [facility]. ORIGINAL REPORT ONFILE IN LAB CONTAINS ADDITIONAL TEST SITE INFORMATION. (Normal) ACID FAST BACILLUS SMEARAcid Fast Smear from Concentrated Specimen :Negative 59-Mwx-859599:11 CUFST FUNST See Note Comments: TESTING PERFORMED AT [facility]. ORIGINAL REPORT ONFILE IN LAB CONTAINS ADDITIONAL TEST SITE INFORMATION. (Normal) FUNGUS STAIN No yeast or mold observed. CUF See Note Comments: TESTING PERFORMED AT [facility]. ORIGINAL REPORT ONFILE IN LAB CONTAINS ADDITIONAL TEST SITE INFORMATION. (Normal) CULTURE, FUNGUSNO YEAST OR MOLD ISOLATED AFTER 4 WEEKS. 37-Ues-367643:11 CUSP RESPC See Note (Normal) Comments: No [...] IN CHAINS AND CLUSTERS1+ GRAM POSITIVE RODS 04-Tey-145231:23 AFBCS tAFBC See Note Comments: TESTING PERFORMED AT [facility]. ORIGINAL REPORT ONFILE IN LAB CONTAINS ADDITIONAL TEST SITE INFORMATION. (Normal) CULTURE, ACID FAST FINAL CULTURE REPORT TO FOLLOW IN 6 WEEKS. tAFBSF See Note Comments: TESTING PERFORMED AT [facility]. ORIGINAL REPORT ONFILE IN LAB CONTAINS ADDITIONAL TEST SITE INFORMATION. (Normal) ACID FAST BACILLUS SMEARNO ACID-FAST BACILLI OBSERVED ON SMEAR. 38-Dsg-897169:23 CUFST FUNST See Note Comments: TESTING PERFORMED AT [facility]. ORIGINAL REPORT ONFILE IN LAB CONTAINS ADDITIONAL TEST SITE INFORMATION. (Normal) FUNGUS STAIN No yeast or mold observed. CUF See Note Comments: TESTING PERFORMED AT [facility]. ORIGINAL REPORT ONFILE IN LAB CONTAINS ADDITIONAL TEST SITE INFORMATION. (Normal) CULTURE, FUNGUSNO YEAST OR MOLD ISOLATED AFTER 4 WEEKS. 36-Vno-084455:21 AFBCS tAFBC See Note Comments: TESTING PERFORMED AT [facility]. ORIGINAL REPORT ONFILE IN LAB CONTAINS ADDITIONAL TEST SITE INFORMATION. (Normal) CULTURE, ACID FAST FINAL CULTURE REPORT TO FOLLOW IN 6 WEEKS. tAFBSF See Note Comments: TESTING PERFORMED AT [facility]. ORIGINAL REPORT ONFILE IN LAB CONTAINS ADDITIONAL TEST SITE INFORMATION. (Normal) ACID FAST BACILLUS SMEARAcid Fast Smear from Concentrated Specimen :Negative 94-Jfv-662327:21 CUFST FUNST See Note Comments: TESTING PERFORMED [...] ay REPORT -2 (Normal) 39 :0 0 74-Jnx-752850:05 WARREN CULTURE-OTHER (44730) Comments: PATIENT NOT FASTINGPERFORMED BY: [facility] Ifgyja1290 [facility] [id number] Information: SRC: THROAT Result 1 RRF (Normal) Comments: Routine respiratory ashkan Upper Respiratory Culture Final report (Normal) 70-Mfq-805376:23 Rapid Strep Test, Office (87702) Rapid Strep Test, Office Negative (Normal) 9-Osh-185904:15 CBCMD RBCM NORM C+C {NORMAL} (Normal) PE [...] 4.6-6.2 WBC 8.3 K/mm3 (Normal) Range: 4.4-11.0 1-Jlc-675833:15 CMP GAP 10 (Normal) Range: 5-15 CO2 [...] 7-18 GLU 81 mg/dL (Normal) Range: 70-110 4-Wgr-185085:15 LIPID VLDL 12 mg/dL (Normal) Range: 5-40 [...] Alvarado M.D.January 27, 2012 at 2:39:03 PM [id number] Signed GP/GP If you are the refe rring physician and would like to consult with theradiologist who provided this interpretation, please contact Itzel Linares at [phone]. If this radiologist is unavailable, youwill be dir ected to another radiologist to assist. If you are a patient with a question regarding this report, pleasecontactyour referring physician directly. Professional Interpretation Provided By: [employer], Phone , These documents contain legally protected [...] Schwarz D.O.January 26, 2012 at 8:55:02 PM [id number] Signed BE/B E If you are the referring physician and would like to consult with theradiologist who provided this interpretation, please contact Yogi Schwarz D.O. at [phone]. If this radiologist is unavailable, yo u will bedirected to another radiologist to assist. If you are a patient with a question regarding this report, pleasecontactyour referring physician directly. Professional Interpretation Provided By: [employer], Phone , These documents contain legally protected [...] 01/26/12 2100 Sign by: Yogi Schwarz MD 26-Xxl-710360:13 CUSP RESPC See Note (Normal) Comments: No [...] GRAM POSITIVE COCCI IN CHAINS AND CLUSTERS 69-Shl-197134:56 HgA1C , Office (10023) HgA1C , Office 6.1 % (Normal) Range: 4.6 - 7.1 :56 Blood Glucose , Office (33478) Blood Glucose , Office 116 (Normal) : [...] 7-18 GLU 107 mg/dL (Normal) Range: 70-110 09-Dvn-725108:25 LIPID VLDL 12 mg/dL (Normal) Range: 5-40 [...] performed using the TPSA assay method for theBaseKit chemistry system. Values obtained with differentassay methods cannot be used interchangably.When ch anging PSA assays in the course of monitoring apatient, additional sequential testing should be carriedout to confirm baseline values. 66-Ukl-040092:25 UAC UMUC 0 SEEN {/hpf} (Normal) UBAC [...] UCOL YELLOW (Normal) :44 HgA1C , Office (07652) HgA1C , Office 6.3 % (Normal) Range: 4.6 - 7.1 :44 Blood Glucose , Office (21955) Blood Glucose , Office 114 (Normal) :13 HgA1C , Office (15996) HgA1C , Office 6.2 % (Normal) Range: 4.6 - 7.1 :13 Blood Glucose , Office (58156) Blood Glucose , Office 100 (Normal) :55 HgA1C , Office (51078) HgA1C , Office 5.8 % (Normal) Range: 4.6 - 7.1 :55 Blood Glucose , Office (51180) Blood Glucose , Office 85 (Normal) :51 WARREN CULTURE-OTHER (95383) Comments: PATIENT NOT FASTINGPERFORMED BY: [facility] [facility] [id number] Information: SRC:THRDaljit [id number] Result 1 Yeast isolated. (Normal) Comments: Heavy growthRequest for further identification must be madewithin 1 week. Upper Respiratory Culture Final report (Normal) :14 Rapid Strep Test, Office (09168) Rapid Strep Test, Office Negative (Normal) :24 [...] serialsampling is recomme nded. TESTING PERFORMED AT [facility]. ORIGINAL REPORT ON FILE IN LAB CONTAINS [...] the productionof interferon gamma.Performed at: [facility] Lab[address] [id number] Director: Joseph Velez MD, Phone: [phone] QFT AG - NIL 0 {IU/mL} (Normal) [...] of Hgb A1C has changed to SIEMENS Globa.liTANo significant changes in patient results are expected. [...] >240 mg/dL High Risk :03 VIT D,25 19789 38.0 ng/mL (Normal) Comments: appt 03-08-10 Range: 32.0-100.0 Comments: Effective January 11, 2011 Vitamin D, 25-Hydroxy reference intervals will be changing to 30-100. .Recent studies consider the lower li chilo of 32.0 ng/mL to be athreshold for optimal health.Mark LUDWIG. J Nutr. 2004;135(2):317-22.Performed at: - Lab[address] Director: Lakshmi Pino MD, Phone: [phone] VITAMIN B12 696 pg/mL (Normal) Range: 254-1320 Comments: There is a low frequency possibility that high titers ofintrinsic blocking antibodies may not be completely inactivated during the reaction pretreatment stepof this testing method. If test results are i n conflictwith the clinical diagnosis, patient should be testedfor the presence of intrinsic factor blocking antibodies. 31-Epx-183628:05 Rapid Strep Test, Office (03690) Rapid Strep Test, Office Negative (Normal) :00 CULTURE, THROAT See Note (Normal) Comments: Normal throat ashkan isolated. No beta-hemolyticstreptococcus isolated. 51-Jjp-38867:00 CHEST WITHOUT CONTRAST Radiology Report See Note [...] 10/11/10 0244 Sign by: Clarke Butt MD 47-Wkx-304099:58 GALLBLADDER Radiology Report See Note (Normal) Comments: [...] 10/08/10 1402 Sign by: Christiano CALVO Rakesh 98-Juq-49789:00 CULTURE, URINE URINE CULTURE See Note {CFU/mL} (Normal) Comments: COLONY COUNT <1000 ORGANISM 1: MIXED GRAM POSITIVE ORGANISMS 04-Vsx-099115:19 Urinalysis, Office (70199) UA - BILIRUBIN Negative (Normal) UA - BLOOD Non Hemolyzed Trace (Normal) UA - GLUCOSE Negative (Normal) UA - KETONES Negative mg/dL (Normal) UA - LEUKOCYTE ESTERASE Negative (Normal) UA - NITRITE Negative (Normal) UA - PH 7.0 (Normal) UA - PROTEIN Negative mg/dL (Normal) UA - SPECIFIC GRAVITY 1.010 (Normal) URINE UROBILINGN MASSIEL TIMED Normal mg/dL (Normal) 47-Tda-95377:00 ABDOMEN/PELVIS WITHOUT CONT Radiology Report See Note [...] on 09/16/101715 Sign by: Cosmo Mahmood MD 43-Afh-269327:11 HgA1C , Office (67758) HgA1C , Office 6.2 % (Normal) Range: 4.6 - 7.1 :11 Blood Glucose , Office (12424) Blood Glucose , Office 90 (Normal) :28 [...] 4.6-6.2 WBC 6.8 K/mm3 (Normal) Range: 4.4-11.0 65-Wdl-92835:28 COMP METABOLIC GAP 5 (Normal) Range: 5-15 [...] mg/dL High Risk :53 HgA1C , Office (62240) HgA1C , Office 6.4 % (Normal) Range: 4.6 - 7.1 :53 Blood Glucose , Office (80899) Blood Glucose , Office 108 (Normal) :39 CULTURE, URINE URINE CULTURE Culture exhibits no growth. (Normal) :54 Urinalysis, Office (25987) UA - BILIRUBIN Negative (Normal) UA - BLOOD Negative (Normal) UA - GLUCOSE Negative (Normal) UA - KETONES Negative mg/dL (Normal) UA - LEUKOCYTE ESTERASE Negative (Normal) UA - NITRITE Negative (Normal) UA - PH 7.0 (Normal) UA - PROTEIN Negative mg/dL (Normal) UA - SPECIFIC GRAVITY 1.010 (Normal) URINE UROBILINGN MASSIEL TIMED Normal mg/dL (Normal) :37 HgA1C , Office (94332) HgA1C , Office 6.1 % (Normal) Range: 4.6 - 7.1 :37 Blood Glucose , Office (95378) Blood Glucose , Office 96 (Normal) :46 [...] 4.6-6.2 WBC 7.5 K/mm3 (Normal) Range: 4.4-11.0 65-Huk-379999:46 COMP METABOLIC GAP 7 (Normal) Range: 5-15 [...] (Normal) Range: 0.0-4.0 :22 HgA1C , Office (37592) HgA1C , Office 6.1 % (Normal) Range: 4.6 - 7.1 :22 Blood Glucose , Office (99699) Blood Glucose , Office 123 (Normal) :47 HgA1C , Office (12941) HgA1C , Office 6.3 % (Normal) Range: 4.6 - 7.1 :47 Blood Glucose , Office (12359) Blood Glucose , Office 103 (Normal) :05 [...] (Normal) GLU 107 mg/dL (Normal) Range: 70-110 43-Xku-89748:05 LIPID HDL 58 mg/dL (Normal) Comments: Reference RangeHDL <40 mg/dL Low HDL CholesterolHDL >or= 60 mg/dL High HDL Cholesterol LDL 77 mg/dL (Normal) Range: 0-130 VLDL 7 mg/dL (Normal) Range: 5-40 CHOL 142 mg/dL (Normal) Comments: <200 mg/dL Clenobkce060-946 mg/dL Borderline>240 mg/dL High Risk TRIG 35 mg/dL (Normal) Comments: Serum Triglycerides Reference IntervalNormal <150 mg/dLBorderline high 150 - 199 mg/dLHigh 200 - 499 mg/ dLVery High > or = 500 mg/dL 6-Kxa-890071:24 HgA1C , Office (20815) HgA1C , Office 6.2 % (Normal) Range: 4.6 - 7.1 1-Vdc-594611:23 Blood Glucose , Office (34434) Blood Glucose , Office 96 (Normal) 90-Nzr-946569:07 GASTRIC EMPTYING STUDY Radiology Report See Note (Normal) Comments: Exam Number: [id number] GASTRIC EMPTYING STUDY A gastric emptying study was performed. The patient ingested 1 mCi rcRc12p Sulfur colloid with oatmeal. HISTORYThis is a 58-year-old male patie nt with hist ory of bloating andgastroesophageal reflux. FINDINGSAt 1 hour, there is complete emptying of the stomach of theradiopharmaceutical. This is a normal study. IMPRESSIONNormal examination. There is no e vidence of gastric retention. Reported By: WILFREDO ALVARADO :33 HgA1C , Office (09067) HgA1C , Office 5.9 % (Normal) Range: 4.6 - 7.1 :33 Blood Glucose , Office (18254) Blood Glucose , Office 111 (Normal) :08 [...] Range: 0.0-4.0 :46 Blood Glucose , Office (36628) Blood Glucose , Office 156 (Normal) :46 HgA1C , Office (11135) HgA1C , Office 5.8 % (Normal) Range: 4.6 - 7.1 :12 HgA1C , Office (95043) Comments: done HgA1C , Office 5.8 % (Normal) Range: 4.6 - 7.1 :12 Blood Glucose , Office (04187) Comments: done Blood Glucose , Office 99 [...] mg/dL (Normal) Range: 200-370 Comments: Performed At: [address] [id number] Blood Glucose , Office (95147) Blood Glucose , Office 92 (Normal) :44 HgA1C , Office (75024) HgA1C , Office 5.7 % (Normal) Range: 4.6 - 7.1 :40 GLU GTT-2 HOUR 191 mg/dL (Abnormal) Comments: 2HR GTT GLU 2 HR GLU GTT-2 HOUR from 216:[id number]. Range: 70-120 :20 GLU GTT-1 HOUR 178 mg/dL (Abnormal) Comments: 2HR GTT GLU 1 HR GLU GTT-1 HOUR from 216:[id number]. Range: 120-170 :40 GLU GTT-30 min. 183 mg/dL (Abnormal) Comments: 2HR GTT GLU 1/2 HR GLU GTT-30 min. from 216:[id number]. Range: 110-170 :01 GLU GTT-FASTING 106 mg/dL (Normal) Comments: 2HR GTT FASTING GLU GTT-FASTING from 216:U77089W. Range: 70-110 Comments: GLUCOSE TOLERANCE TEST Reference [...] was performed using the TPSA method for theBaseKit chemistry system.Values obtained with different assay methods [...] :12 TSH 1.38 {uIU/mL} (Normal) Range: 0.34-4.82 07-Xqc-01324:03 CHEST WITH CONTRAST Radiology Report See Note (Normal) Comments: Exam Number: [id number] CHEST CT WITH INTRAVENOUS CONTRAST. REASON FOR [...] No growth in 5 6:14 days. (Normal) 8-Nwb-414383:14 CBCD,SMEAR DIFF BAND 1 % (Normal) Range: [...] 47-70 WBC 5.6 K/mm3 (Normal) Range: 4.4-11.0 3-Mhy-878607:14 COMP METABOLIC A/G 1.2 {RATIO} (Normal) Range: [...] T PROT 6.3 g/dL (Abnormal) Range: 6.4-8.2 44-Jtg-855089:19 EBVIgG/M 223277 EB-EA IgG 20113 79 AU/mL (Normal) Range: 0-99 Comments: Negative <100 Equivocal 100 - 120 Positive >120 EB-NAg [id number] 656 AU/mL (Abnormal) Range: 0-99 Comments: Negative <100 Equivocal 100 - 120 Positive >120 EB-VCA [id number] 2296 AU/mL (Abnormal) Range: 0-99 Comments: Negative <100 Equivocal 100 - 120 Positive >120 EB-VCA [id number] 9 AU/mL (Normal) Range: 0-99 Comments: Negative [...] Antibody Present - Antibody AbsentPerformed At: [facility] [place], [place] [id number] 74-Tob-173811:00 CULTURE, THROAT See Note (Normal) Comments: Normal throat ashkan isolated. No beta-hemolyticstreptococcus isolated. 37-Dca-592394:35 Rapid Strep Test, Office (27362) Rapid Strep Test, Office Negative (Normal) :40 [...] SJ:rin 11/09/06 TC:5 REPORT SIGNED: PAMELLA SON 11/10/0607-Nov-200697-Hhm-878376:55 ALDOLASE 2030 2.3 U/L (Normal) Range: 1.2-7.6 Comments: Performed At: [facility] [place], [place] [id number] At: [facility] [id number] 09-Twu-511160:55 JOHN-D [id number] JOHN-DIRECT 9 U/mL (Normal) Range: 0-99 Comments: [...] 4.9 {IU/mL} (Normal) Range: 0.0-13.9 :55 TESTOST [id number] TESTOSTER %FREE 2.87 % (Normal) Range: 1.50-4.20 [...] Report See Note (Normal) Comments: Exam Number: [id number] TESTICULAR ULTRASOUND HISTORYTesticular swelling. High resolution real [...] Reported By: MAYELIN DE LA FUENTE M.D. 7-Mey-906082:45 HIP, MIN 2 VIEWS Radiology Report See Note (Normal) Comments: Exam Number: [id number] FIVE VIEW LUMBAR SPINE AP, LATERAL, BOTH [...] Report See Note (Normal) Comments: Exam Number: [id number] FIVE VIEW LUMBAR SPINE AP, LATERAL, BOTH [...] Report See Note (Normal) Comments: Exam Number: [id number] FIVE VIEW LUMBAR SPINE AP, LATERAL, BOTH [...] degenerative changes. Reported By: REMIGIO PURCELL M.D. 44-Ggm-512395:43 CHEST, PA AND LATERAL Radiology Report See Note (Normal) Comments: Exam Number: [id number] PA AND LATERAL CHEST HISTORYShortness of breath. [...] 15, 2005. Reported By: EDVIN MARIE M.D. 51-Nya-592124:25 ALDOLASE 2030 3.0 U/L (Normal) Range: 1.2-7.6 Comments: Performed At: [address] [id number] 08-Ywg-465208:25 JOHN-D [id number] JOHN-DIRECT 46 U/mL (Normal) Range: 0-99 Comments: Negative <100 Equivocal 100 - 120 Positive >120 :25 C-REACTIVE PROT 1.07 mg/L (Normal) Range: 0.0-6.0 Comments: Test performed using the Dimension C-Reactive ProteinExtended Range assay method. This assay meets the AHA/CDC 2003 recommendations fordetermining patients at high risk for cardiovasculardisease. Reference: High risk CRP >3.0 mg/L 49-Toy-201023:25 CBCD BASO% 0.4 % (Normal) Range: 0-1 [...] CPK TOTAL 172 U/L (Normal) Range: 35-232 23-Fya-966856:25 ESR SED RATE 13 mm/h (Normal) Range: [...] morphology Planned Observations CBC W/AUTO DIFF WBC (43839)Indication: Hypertension, benign On: 22-Osv-12454:51 Request METABOLIC PANEL, COMPREHENSIVE (51232)Indication: Hypertension, benign On: 77-Ghi-94392:51 Request LIPID PANEL (80206)Indication: Other hyperlipidemia On: :50 Request CULTURE,FUNGUS W/STAIN 938775 (01754)Indication: Bronchiectasis On: :59 Request CULTURE, SPUTUM (30474)Indication: Moderate persistent asthma without complication On: :21 Request HGB A1C (20989)Indication: Abnormal glucose tolerance test On: :10 Request CBC with auto diff (15931)Indication: Abnormal glucose tolerance test On: :10 Request METABOLIC PANEL, COMPREHENSIVE (38996)Indication: Abnormal glucose tolerance test On: : Request LIPID PANEL (66906)Indication: Other hyperlipidemia On: : Request PSA (PROSTATE SPECIFIC ANTIGEN) (V76.44)Indication: Encounter for screening for malignant neoplasm of prostate (Renamed from Screening for prostate cancer) On: :09 Request METABOLIC PANEL, COMPREHENSIVE (10277)Indication: Essential hypertension On: 9-Cap-507774:58 Request CBC with auto diff (96412)Indication: Hypertension, benign On: :53 Request METABOLIC PANEL, COMPREHENSIVE (58684)Indication: Abnormal glucose tolerance test On: :52 Request MICROALBUMIN: CREATININE RATIO (28446) AND (35995)Indication: Abnormal glucose tolerance test On: :52 Request HGB A1C (16534)Indication: Abnormal glucose tolerance test On: :52 Request LIPID PANEL (92510)Indication: Other hyperlipidemia On: :52 Request LIPID PANEL (95305)Indication: Other hyperlipidemia On: 5-Xxq-465404:30 Request CBC W/AUTO DIFF WBC (66642)Indication: Hypertension, benign On: :29 Request METABOLIC PANEL, COMPREHENSIVE (43572)Indication: Hypertension, benign On: 5-Rmr-904403:29 Request IMMUNOGLOBULIN G (IgG) (21915)Indication: Abnormal blood chemistry On: 35-Hkx-123138:02 Request Comments: PLEASE DRAW WITH OTHER LABS IN 2016 serum free light chains (68123)Indication: Abnormal blood chemistry On: :40 Request serum immunofixation (68975)Indication: Abnormal blood chemistry On: Request PSA (PROSTATE SPECIFIC ANTIGEN) (V76.44)Indication: Encounter for screening for malignant neoplasm of prostate (Renamed from Screening for prostate cancer) On: 40 Request LIPID PANEL (21800)Indication: Other hyperlipidemia On: Request CBC with auto diff (53131)Indication: Abnormal glucose tolerance test On: 39 Request METABOLIC PANEL, COMPREHENSIVE (69717)Indication: Abnormal glucose tolerance test On: Request MICROALBUMIN: CREATININE RATIO (50268) AND (84024)Indication: Abnormal glucose tolerance test On: 39 Request HGB A1C (53715)Indication: Abnormal glucose tolerance test On: Request LIPID PANEL (52467)Indication: Other hyperlipidemia On: :58 Request urine immunofixation (11839)Indication: Abnormal blood chemistry On: :34 Request serum immunofixation (63733)Indication: Abnormal blood chemistry On: :34 Request MICROALBUMIN: CREATININE RATIO (30519) AND (26469)Indication: Abnormal glucose tolerance test On: :32 Request HGB A1C (41228)Indication: Abnormal glucose tolerance test On: :32 Request CBC W/AUTO DIFF WBC (11881)Indication: Hypertension, benign On: :30 Request METABOLIC PANEL, COMPREHENSIVE (90017)Indication: Hypertension, benign On: :30 Request LIPID PANEL (70229)Indication: Other hyperlipidemia On: :30 Request LIPOPROTEIN, BLD, BY NMR (63679)Indication: Other hyperlipidemia On: :14 Request CBC WITH MANUAL DIFF (13041)Indication: Essential hypertension On: 20-Qhi-287528:14 Request Metabolic Panel, Comprehensive (06351)Indication: Essential hypertension On: 39-Mdp-088239:14 Request CBC W/AUTO DIFF WBC (88059)Indication: Abnormal glucose tolerance test On: Request LIPOPROTEIN, BLD, BY NMR (46953)Indication: Other hyperlipidemia On: Request METABOLIC PANEL, COMPREHENSIVE (61259)Indication: Abnormal glucose tolerance test On: : Request Anti-TPO Antibody (97240)Indication: Abnormal blood chemistry On: Request T4, FREE (THYROXINE) (20910)Indication: Abnormal blood chemistry On: Request T3, FREE (TRIDOTHYRONINE) (05283)Indication: Abnormal blood chemistry On: Request TSH (83010)Indication: Abnormal blood chemistry On: Request P-ANCA & C-ANCA (ANCA PROFILE) 04773 x2 and 96623 [id number]: Acute recurrent maxillary sinusitis On: Request JOHN (ANTINUCLEAR ANTIBODY) (24367)Indication: Abnormal blood chemistry On: Request RHEUMATOID FACTOR-QUANT (57072)Indication: Abnormal blood chemistry On: Request SED RATE ERYTHROCYTE (11678)Indication: Abnormal blood chemistry On: Request C-REACTIVE PROTEIN (18157)Indication: Abnormal blood chemistry On: Request CBC with auto diff (14275)Indication: Hypertension, benign On: : Request MICROALBUMIN: CREATININE RATIO (59580) AND (89604)Indication: Abnormal glucose tolerance test On: Request METABOLIC PANEL, COMPREHENSIVE (71458)Indication: Abnormal glucose tolerance test On: : Request HGB A1C (15804)Indication: Abnormal glucose tolerance test On: Request METABOLIC PANEL, COMPREHENSIVE (69924)Indication: Hypertension, benign On: Request LIPID PANEL (43520)Indication: Other hyperlipidemia On: Request PSA (PROSTATE SPECIFIC ANTIGEN) (V76.44)Indication: Encounter for screening for malignant neoplasm of prostate (Renamed from Screening for prostate cancer) On: 86-Qfb-353695:59 Request Factor 2 (Prothrombin) Gene Mutation (69299)Indication: Other symptoms involving cardiovascular system On: 0-Sgo-509490:13 Request MICROALBUMIN: CREATININE RATIO (20318) AND (88737)Indication: Abnormal glucose tolerance test On: :53 Request HGB A1C (67590)Indication: Abnormal glucose tolerance test On: :53 Request LIPID PANEL (31159)Indication: Other hyperlipidemia On: :53 Request CBC W/AUTO DIFF WBC (22387)Indication: Hypertension, benign On: :53 Request METABOLIC PANEL, COMPREHENSIVE (96322)Indication: Hypertension, benign On: :53 Request CBC with auto diff (19111)Indication: Hypertension, benign On: 6-Xsw-349715:25 Request METABOLIC PANEL, COMPREHENSIVE (08605)Indication: Hypertension, benign On: :25 Request LIPID PANEL (98446)Indication: Other hyperlipidemia On: 1-Mnh-835263:25 Request Factor V Leiden (32840)Indication: Deep vein thrombosis of lower extremity On: 85-Aqz-652606:24 Request CLOTTING FACTOR II (37254)Indication: Deep vein thrombosis of lower extremity On: 96-Ear-994265:24 Request ANTITHROMBIN III ACTIVTY (02980)Indication: Deep vein thrombosis of lower extremity On: 38-Cpc-046784:24 Request Antiphospholipid atb (14320)Indication: Deep vein thrombosis of lower extremity On: 27-Iee-342654:24 Request Protein C Profile (72002)Indication: Deep vein thrombosis of lower extremity On: 76-Doj-512478:24 Request Protein S Profile (27335)Indication: Deep vein thrombosis of lower extremity On: 70-Rbr-571363:24 Request Hemoglobin Glyclated (HGB A1C) (59791)Indication: Abnormal glucose tolerance test On: 01-Bst-469533:23 Request CBC W/AUTO DIFF WBC (27386)Indication: Abnormal glucose tolerance test On: :43 Request MICROALBUMIN: CREATININE RATIO (22983) AND (74260)Indication: Abnormal glucose tolerance test On: :43 Request METABOLIC PANEL, COMPREHENSIVE (55576)Indication: Abnormal glucose tolerance test On: :43 Request LIPID PANEL (17812)Indication: Other hyperlipidemia On: :43 Request DNA ANTIBODY-NATV/DBL ST (27031)Indication: Heart disease, unspecified On: 26-Mln-734937:02 Request METABOLIC PANEL, COMPREHENSIVE (79289)Indication: Essential hypertension On: 44-Bop-251088:31 Request LIPID PANEL (21177)Indication: Other hyperlipidemia On: 81-Euj-541325:31 Request Hemoglobin Glyclated (HGB A1C) (08849)Indication: Abnormal glucose tolerance test On: 12-Tii-589275:31 Request PSA (PROSTATE SPECIFIC ANTIGEN) (V76.44)Indication: Benign prostatic hyperplasia with lower urinary tract symptoms, unspecified morphology On: 84-Pvu-662311:52 Request MICROALBUMIN: CREATININE RATIO (74587) AND (89476)Indication: Abnormal glucose tolerance test On: :50 Request Hemoglobin Glyclated (HGB A1C) (37522)Indication: Abnormal glucose tolerance test On: 92-Nka-490192:50 Request URINE WARREN CULTURE (MASSIEL COL COUNT) (97677)Indication: Muscle weakness On: :48 Request URINALYSIS, W/ MICRO (73038)Indication: Muscle weakness On: :48 Request CBC with auto diff (05506)Indication: Muscle weakness On: :48 Request JOHN (ANTINUCLEAR ANTIBODY) (94801)Indication: Muscle weakness On: :48 Request SED RATE ERYTHROCYTE (41181)Indication: Muscle weakness On: :48 Request C-REACTIVE PROTEIN (07838)Indication: Muscle weakness On: :48 Request TSH (01395)Indication: Muscle weakness On: :48 Request LIPID PANEL (43297)Indication: Other hyperlipidemia On: 65-Qhk-410250:47 Request METABOLIC PANEL, COMPREHENSIVE (56531)Indication: Other hyperlipidemia On: 63-Yud-612066:46 Request URINE WARREN CULTURE-MASSIEL COL COUNT (97152)Indication: Other abnormal finding of urine On: :42 Request LIPID PANEL (06868)Indication: Other hyperlipidemia On: :44 Request CBC W/AUTO DIFF WBC (70258)Indication: Essential hypertension On: :44 Request METABOLIC PANEL, COMPREHENSIVE (50342)Indication: Essential hypertension On: :44 Request URINE WARREN CULTURE-MASSIEL COL COUNT (47458)Indication: Other abnormal finding of urine On: 8-Kls-407636:00 Request Comments: ADD ON MICROALBUMIN: CREATININE RATIO (53325) AND (66436)Indication: Essential hypertension On: : Request URINALYSIS, W/ MICRO (99824)Indication: Essential hypertension On: : Request METABOLIC PANEL, COMPREHENSIVE (10698)Indication: Essential hypertension On: :02 Request LIPID PANEL (02957)Indication: Other hyperlipidemia On: : Request CBC WITH MANUAL DIFF (63166)Indication: Iron deficiency On: : Request URINE WARREN CULTURE (MASSIEL COL COUNT) (04602)Indication: Fatigue On: 20-Nky-282997:46 Request MICROALBUMIN: CREATININE RATIO (40703) AND (55805)Indication: Abnormal glucose tolerance test On: 47-Ywb-412517:46 Request Hemoglobin Glyclated (HGB A1C) (39873)Indication: Abnormal glucose tolerance test On: 63-Gqb-182039:46 Request IRON BINDING CAPACITY (TIBC) (58322)Indication: Anemia, unspecified On: 12-Nlz-411020:42 Request FERRITIN (58835)Indication: Anemia, unspecified On: 24-Yqn-588447:42 Request IRON (28158)Indication: Anemia, unspecified On: 99-Pzx-649012:42 Request VITAMIN B-12 (CYANOCOBALAMIN) (78259)Indication: Fatigue On: :42 Request CBC (AUTO) (08445)Indication: Fatigue On: :42 Request TSH (00937)Indication: Fatigue On: :42 Request Vitamin D Hydroxy (12004)Indication: Fatigue On: :42 Request EBV Panel (04578)Indication: Fatigue On: 97-Bhc-274493:42 Request FERRITIN (00402)Indication: Anemia, unspecified On: : Request IRON (03328)Indication: Anemia, unspecified On: : Request MICROALBUMIN: CREATININE RATIO (90831) AND (12540)Indication: Abnormal glucose tolerance test On: : Request METABOLIC PANEL, COMPREHENSIVE (91162)Indication: Abnormal glucose tolerance test On: : Request LIPID PANEL (46735)Indication: Other hyperlipidemia On: : Request CBC WITH MANUAL DIFF (35885)Indication: Anemia, unspecified On: : Request FERRITIN (20695)Indication: Anemia, unspecified On: 9-Ngi-964484:15 Request IRON (34997)Indication: Anemia, unspecified On: :14 Request LIPID PANEL (61821)Indication: Essential hypertension On: : Request METABOLIC PANEL, COMPREHENSIVE (16297)Indication: Essential hypertension On: :14 Request CBC WITH MANUAL DIFF (82488)Indication: Essential hypertension On: :14 Request UPEP (86578)Indication: BRONCHITIS, NOT SPECIFIED ACUTE OR CHRONIC (490.) On: Request Protein Electrophoresis, Serum (SPEP) (04993)Indication: BRONCHITIS, NOT SPECIFIED ACUTE OR CHRONIC (490.) On: Request IGA/IGD/IGG/IGM-EACH (42889)Indication: BRONCHITIS, NOT SPECIFIED ACUTE OR CHRONIC (490.) On: Request URINALYSIS, W/ MICRO (31898)Indication: Anemia, unspecified On: : Request CBC WITH MANUAL DIFF (70814)Indication: Anemia, unspecified On: Request FOLIC ACID SERUM (81042)Indication: Anemia, unspecified On: : Request VITAMIN B-12 (CYANOCOBALAMIN) (54234)Indication: Anemia, unspecified On: Request RETICULOCYTE COUNT MANUL (66233)Indication: Anemia, unspecified On: Request LDH (LD) (LACTATE DEHYDROGENASE) (00119)Indication: Anemia, unspecified On: Request IRON BINDING CAPACITY (TIBC) (48493)Indication: Anemia, unspecified On: : Request IRON (87274)Indication: Anemia, unspecified On: Request FERRITIN (93292)Indication: Anemia, unspecified On: Request PSA (PROSTATE SPECIFIC ANTIGEN) (V76.44)Indication: Screening for prostate cancer On: :36 Request LIPID PANEL (61948)Indication: Abnormal glucose tolerance test On: Request CBC WITH MANUAL DIFF (41001)Indication: Hypertension, benign On: Request METABOLIC PANEL, COMPREHENSIVE (87375)Indication: Hypertension, benign On: Request SED RATE ERYTHROCYTE (03708)Indication: Rash On: : Request C-REACTIVE PROTEIN (67963)Indication: Rash On: : Request RHEUMATOID FACTOR-QUANT (54437)Indication: Rash On: Request JOHN (ANTINUCLEAR ANTIBODY) (14432)Indication: Rash On: :22 Request CULTURE, SPUTUM (97280)Indication: Cough On: 71-Ezi-273018:20 Request HgA1C , Office (12512)Indication: Abnormal glucose tolerance test On: 70-Nvz-169218:57 Request CULTURE, SPUTUM (94275)Indication: Cough On: 98-Fyx-058761:39 Request ACID FAST STAIN (AFB) (24567)Indication: Cough On: 94-Wst-546537:38 Request TSH (17920)Indication: Other hyperlipidemia On: :21 Request URINALYSIS, W/ MICRO (76082)Indication: Essential hypertension On: :21 Request CBC WITH MANUAL DIFF (30597)Indication: Abnormal glucose tolerance test On: : Request METABOLIC PANEL, COMPREHENSIVE (43169)Indication: Abnormal glucose tolerance test On: :21 Request MICROALBUMIN: CREATININE RATIO (28243) AND (78446)Indication: Abnormal glucose tolerance test On: :21 Request LIPID PANEL (23633)Indication: Other hyperlipidemia On: :20 Request CBC WITH MANUAL DIFF (49285)Indication: Abnormal glucose tolerance test On: 93-Xyl-648204:26 Request METABOLIC PANEL, COMPREHENSIVE (87068)Indication: Abnormal glucose tolerance test On: 68-Yvm-369404:26 Request CULTURE, SPUTUM (67841)Indication: Cough On: 24-Gsu-636419:18 Request LIPID PANEL (81554)Indication: Other hyperlipidemia On: 22-Pra-761560:14 Request TSH (30895)Indication: Swelling of limb On: :58 Request METABOLIC PANEL, COMPREHENSIVE (98119)Indication: Swelling of limb On: 65-Tiu-13227:58 Request CBC WITH MANUAL DIFF (00281)Indication: Swelling of limb On: :58 Request BNTP (58310)Indication: Swelling of limb On: :58 Request CULTURE, SPUTUM (74516)Indication: Cough On: 61-Pot-49881:56 Request PSA (PROSTATE SPECIFIC ANTIGEN) (V76.44)Indication: Screening for prostate cancer On: 30-Dmr-351306:19 Request URINALYSIS, W/ MICRO (73962)Indication: Abnormal glucose tolerance test On: 64-Qtr-049918:18 Request MICROALBUMIN: CREATININE RATIO (11157) AND (13868)Indication: Abnormal glucose tolerance test On: 35-Agg-022239:18 Request METABOLIC PANEL, COMPREHENSIVE (23084)Indication: Essential hypertension On: 70-Zwj-374342:18 Request LIPID PANEL (59160)Indication: Other hyperlipidemia On: 93-Qri-874751:18 Request PSA (PROSTATE SPECIFIC ANTIGEN) (V76.44)Indication: Screening for prostate cancer On: :40 Request MICROALBUMIN: CREATININE RATIO (84122) AND (40608)Indication: Abnormal glucose tolerance test On: :40 Request METABOLIC PANEL, COMPREHENSIVE (20899)Indication: Abnormal glucose tolerance test On: :40 Request Urine Protein Electrophoresis (UPEP) (53262)Indication: recurrent uri On: :39 Request Serum Protein Electrophoresis (SPEP) (99635)Indication: recurrent uri On: 32-Usz-254947:39 Request IMMUNOGLOBULIN E (IgE) (43752)Indication: Asthma, intrinsic, with status asthmaticus On: 22-Otw-971106:39 Request IGA/IGD/IGG/IGM-EACH (63287)Indication: Asthma, intrinsic, with status asthmaticus On: 96-Urh-230678:39 Request LIPID PANEL (17242)Indication: Other hyperlipidemia On: 84-Nhf-636245:38 Request ASPERGILLUS AG, EIA (38864)Indication: Cough On: :58 Request SED RATE ERYTHROCYTE (87968)Indication: Cough On: :48 Request C-REACTIVE PROTEIN (00319)Indication: Cough On: :48 Request CBC WITH MANUAL DIFF (35027)Indication: Cough On: :47 Request Quantiferron gold test (78288)Indication: Cough On: :45 Request CULTURE, SPUTUM (73716)Indication: Cough On: 14-Vgw-448517:45 Request VITAMIN B-12 (CYANOCOBALAMIN) (26248)Indication: Fatigue On: :20 Request Vitamin D Hydroxy (75603)Indication: Fatigue On: 06-Jiv-970583:20 Request CBC WITH MANUAL DIFF (14168)Indication: Abnormal glucose tolerance test On: :19 Request METABOLIC PANEL, COMPREHENSIVE (11974)Indication: Abnormal glucose tolerance test On: :19 Request LIPID PANEL (30211)Indication: Other hyperlipidemia On: :19 Request URINALYSIS, W/ MICRO (05396)Indication: Abnormal glucose tolerance test On: :19 Request HEMOGLOBIN GLYCLATED (HGB A1C) (44770)Indication: Abnormal glucose tolerance test On: :19 Request WARREN CULTURE-OTHER (61931)Indication: Pharyngitis, acute On: 68-Qvc-422035:05 Request URINE WARREN CULTURE-MASSIEL COL COUNT (48032)Indication: Abdominal pain, acute, right lower quadrant On: :19 Request CBC WITH MANUAL DIFF (19352)Indication: Abnormal glucose tolerance test On: :08 Request METABOLIC PANEL, COMPREHENSIVE (10576)Indication: Abnormal glucose tolerance test On: :08 Request TSH (17181)Indication: Fatigue On: :02 Request CBC WITH MANUAL DIFF (33192)Indication: Abnormal glucose tolerance test On: :45 Request METABOLIC PANEL, COMPREHENSIVE (85646)Indication: Hypertension, benign On: :45 Request LIPID PANEL (13242)Indication: Other hyperlipidemia On: :45 Request METABOLIC PANEL, COMPREHENSIVE (10821)Indication: Essential hypertension On: :16 Request LIPID PANEL (66607)Indication: Other hyperlipidemia On: :15 Request URINE WARREN CULTURE-MASSIEL COL COUNT (63972)Indication: Calcium kidney stone On: :54 Request PSA (PROSTATE SPECIFIC ANTIGEN) (V76.44)Indication: Enlarged prostate with lower urinary tract symptoms On: :09 Request METABOLIC PANEL, COMPREHENSIVE (96472)Indication: Abnormal glucose tolerance test On: :09 Request CBC WITH MANUAL DIFF (24863)Indication: Abnormal glucose tolerance test On: :09 Request LIPID PANEL (06353)Indication: Other hyperlipidemia On: 33-Ujr-935325:09 Request MICROALBUMIN: CREATININE RATIO (60703) AND (96804)Indication: Abnormal glucose tolerance test On: :09 Request LIPID PANEL (20193)Indication: Other hyperlipidemia On: : Request CBC WITH MANUAL DIFF (81213)Indication: Abnormal glucose tolerance test On: : Request METABOLIC PANEL, COMPREHENSIVE (80449)Indication: Abnormal glucose tolerance test On: :30 Request MICROALBUMIN: CREATININE RATIO (17326) AND (66692)Indication: Abnormal glucose tolerance test On: :28 Request METABOLIC PANEL, COMPREHENSIVE (23154)Indication: Abnormal glucose tolerance test On: : Request LIPID PANEL (12272)Indication: Other hyperlipidemia On: 6-Hcs-911467:07 Request PSA (PROSTATE SPECIFIC ANTIGEN) (V76.44)Indication: Enlarged prostate with lower urinary tract symptoms On: 3-Xct-660490:49 Request METABOLIC PANEL, COMPREHENSIVE (02562)Indication: Essential hypertension On: 5-Lbl-303260:48 Request LIPID PANEL (81779)Indication: Other hyperlipidemia On: :48 Request HEPATIC FUNCTION PANEL (84463)Indication: Other hyperlipidemia On: :21 Request LIPID PANEL (55547)Indication: Other hyperlipidemia On: 03-Awf-537615:21 Request CBC WITH MANUAL DIFF (85661)Indication: Abnormal glucose tolerance test On: :53 Request METABOLIC PANEL, COMPREHENSIVE (94641)Indication: Abnormal glucose tolerance test On: :53 Request MICROALBUMIN: CREATININE RATIO (56737) AND (81626)Indication: Abnormal glucose tolerance test On: :53 Request HEPATIC FUNCTION PANEL (38021)Indication: Other hyperlipidemia On: :53 Request LIPID PANEL (56986)Indication: Other hyperlipidemia On: 7-Nxh-942161:53 Request GLUCOSE TOLERANCE TEST (GTT) 2 hour On: 7-Ysa-029077:36 Request (70378) TSH (19194)Indication: Dizziness and giddiness On: 00-Qlt-395358:15 Request LIPID PANEL (58634)Indication: Other hyperlipidemia On: 06-Pco-562760:15 Request CBC WITH MANUAL DIFF ([id number])Indication: Dizziness and giddiness On: 20-Bpc-867637:15 Request METABOLIC PANEL, COMPREHENSIVE ([id number])Indication: Dizziness and giddiness On: 55-Mim-905325:15 Request HEPATIC FUNCTION PANEL ([id number])Indication: Other hyperlipidemia On: 61-Miz-580769:39 Request LIPID PANEL ([id number])Indication: Other hyperlipidemia On: 23-Too-395555:39 Request HEPATIC FUNCTION PANEL ([id number])Indication: Other hyperlipidemia On: 36-Yld-288587:31 Request LIPID PANEL ([id number])Indication: Other hyperlipidemia On: 01-Mmq-825340:31 Request WARREN CULTURE-BLOOD ([id number])Indication: fever On: 7-Xur-213866:58 Request METABOLIC PANEL, COMPREHENSIVE ([id number])Indication: fever On: 6-Lbt-060744:58 Request CBC WITH MANUAL DIFF ([id number])Indication: fever On: :58 Request WARREN CULTURE-OTHER ([id number])Indication: Pharyngitis, acute On: :35 Request PSA (Prostate Specific Antigen), Screening ([id number])Indication: Other hyperlipidemia On: :32 Request LIPID PANEL ([id number])Indication: Other hyperlipidemia On: :31 Request URINALYSIS W/O MICRO ([id number])Indication: Hypertension, benign On: :31 Request TSH ([id number])Indication: Hypertension, benign On: :31 Request CBC WITH MANUAL DIFF ([id number])Indication: Hypertension, benign On: :31 Request METABOLIC PANEL, COMPREHENSIVE ([id number])Indication: Hypertension, benign On: :31 Request Creatine Kinase Total ([id number])Indication: Myalgia and myositis On: :24 Request SED RATE ERYTHROCYTE ([id number])Indication: Arthralgia On: :23 Request C-REACTIVE PROTEIN ([id number])Indication: Arthralgia On: :23 Request RHEUMATOID FACTOR-QUANT ([id number])Indication: Arthralgia On: :23 Request JOHN (ANTINUCLEAR ANTIBODY) ([id number])Indication: Arthralgia On: :23 Request Planned Encounters Medical; [facility] 3 Month FU - On: 21-Mar-2018 8:30 [facility] Fast DO, Adelaida A Fast DO, Adelaida A Planned Procedures PNEUM VAC ADLT/IMUMNOSPR, On: 06-Dec-2017 Intent SBC/INTRM ([id number])By: Fast DO, Comments: lot: [id number]: ite/route: Татьяна del/IMamt: 0.5mLVIS signed when applicableEVER Monroy Adelaida A Fast DO, Adelaida A Cartoid DopplerBy: Fast DO Adelaida On: 06-Sep-2017 Intent A Fast DO, Adelaida A Radiology - Lumbar SpineBy: Fast On: 06-Jun-2017 Intent DO, Adelaida A Fast DO, Adelaida A ELECTROCARDIOGRAM, COMPLETE (ECG) On: 06-Jun-2017 Intent ([id number])By: Fast DO Adelaida A Flakito Comments: ekg showed normal sinus rhythym, normal axis, no acute st/t wave changes rbbb no change DO, Adelaida A CT - Chest (Without Contrast)By: On: 11-Feb-2017 Intent Fast DO, Adeliada A Fast DO, Adelaida A Comments: high resolution ct of chest rule out interstitial lung disease Radiology - Ankle - LeftBy: Fast On: 11-Feb-2017 Intent DO, Adelaida A Fast DO, Adelaida A Comments: proabable spur Radiology - ChestBy: Fast DO, On: 19-Jan-2017 Intent Adelaida A Fast DO, Adelaida A Comments: PA & LAT CHEST XRAY, PA & LATERAL On: 18-Jan-2017 Intent ([id number])By: Yola Witt Aerosol Treatment ([id number])By: On: 18-Jan-2017 Intent Yola Witt Solu -Medrol Injection, 125 mg On: 18-Jan-2017 Intent ([id number])By: Yola Witt Comments: solumedrol 125mg injectionlot: [id number]: GMpt tolerated wellAD TEST ENG ELECTROCARDIOGRAM, COMPLETE (ECG) On: 05-Jan-2016 Intent ([id number])By: Adelaida Fraga DO A Flakito Comments: ekg showed normal sinus rhythym, normal axis, no acute st/t wave changes irbb DO, Adelaida A Solu -Medrol Injection, 125 mg On: 09-May-2015 Intent ([id number])By: Samantha Grewal CNP Comments: lot: [id number]: ite/route:RGM/IMamt: 2mLVIS signed when applicableEVER Dumont Aerosol Treatment ([id number])By: On: 09-May-2015 Intent Slarb TEST ENG, Tracey Radiology - Chest- PA and LatBy: [...] A Fast DO, Adelaida A Pulse Oximetry ([id number])By: Flakito On: 26-Aug-2014 Intent DO, Adelaida A Fast DO, Adelaida A Comments: 94%- recheck 95 Aerosol Treatment ([id number])By: On: 10-Apr-2014 Intent Tracey Young LPN Eprescribed prescriptions On: 25-Jul-2013 Intent ([id number])By: Fast DO, Adelaida A Fast DO, Adelaida A Pulse Oximetry ([id number])By: Flakito On: 02-Jul-2013 Intent DO, Adelaida A Fast DO, Adelaida A Comments: 97% Aerosol Treatment ([id number])By: On: 25-Jun-2013 Intent Samantha Grewal CNP Eprescribed prescriptions On: 25-Jun-2013 Intent ([id number])By: Samantha Grewal CNP Eprescribed prescriptions On: 02-Apr-2013 Intent ([id number])By: Leigh Ann Polk Aerosol Treatment ([id number])By: On: 26-Mar-2013 Intent Samantha Grewal CNP Eprescribed prescriptions On: 26-Mar-2013 Intent ([id number])By: Eliana Carter Eprescribed prescriptions On: 25-Dec-2012 Intent ([id number])By: Leigh Ann Polk Aerosol Treatment ([id number])By: On: 06-Nov-2012 Intent Samantha Grewal CNP Eprescribed prescriptions On: 06-Nov-2012 Intent ([id number])By: Eliana Carter Ear Irrigation ([id number])By: Carmina On: 25-Sep-2012 Intent Samantha IRVIN Comments: Ear Irrigation performed on:bilateralAmount/color removed cerumen:large amount of dark brown wax removedOUtcome:clear, pt toleratedUsed wax curettes Wax CurettesBy: Samantha Grewal CNP On: 25-Sep-2012 Intent Eprescribed prescriptions On: 22-Sep-2012 Intent ([id number])By: Elizabet Green DO Eprescribed prescriptions On: 02-Aug-2012 Intent ([id number])By: Leigh Ann Polk Pulse Oximetry ([id number])By: Flakito On: 30-Jun-2012 Intent DO, Adelaida A Fast DO, Adelaida A Comments: 97% Eprescribed prescriptions On: 12-Jun-2012 Intent ([id number])By: Fast DO, Adelaida A Fast DO, Adelaida A Spirometry ([id number])By: Felicitas, On: 17-Jan-2012 Intent Leigh Ann Comments: good effort and curve mild restriction CT - Sinuses CompleteBy: Fast DO, On: 17-Jan-2012 Intent Adelaida A Fast DO, Adelaida A PNEUM VAC ADLT/IMUMNOSPR, On: 17-Jan-2012 Intent SBC/INTRM ([id number])By: Boris, Comments: Lot:[id number]:04-25-12Dose:0.5mLRoute:IMSite:L [facility] By:CHELA signed Julia IMMUNIZ ADMNIN, 1 VAC, SNGL/COMBO On: 17-Jan-2012 Intent ([id number])By: Julia Escalante CT - ChestBy: Fast DO, Adelaida A On: 17-Jan-2012 Intent Fast DO, Adelaida A Eprescribed prescriptions On: 17-Jan-2012 Intent ([id number])By: Leigh Ann Polk Eprescribed prescriptions On: 18-Oct-2011 Intent ([id number])By: Fast DO, Adelaida A Fast DO, Adelaida A EKG ([id number])By: Fast DO, Adelaida A On: 15-Oct-2011 Intent Fast DO, Adelaida A Comments: ekg- sinus with normal axis and nsivcd and no acute changes Eprescribed prescriptions On: 09-Aug-2011 Intent ([id number])By: Fast DO, Adelaida A Fast DO, Adelaida A PFT - CompleteBy: Fast DO, Adelaida On: 08-Mar-2011 Intent A Fast DO, Adelaida A Pulse Oximetry ([id number])By: Carmina On: 02-Feb-2011 Intent Samantha IRVIN Aerosol Treatment ([id number])By: On: 02-Feb-2011 Intent Samantha Grewal CNP Radiology - Chest- PA and LatBy: On: 18-Jan-2011 Intent Fast DO, Adelaida A Fast DO, Adelaida A Pulse Oximetry ([id number])By: On: 18-Jan-2011 Intent Leigh Ann Polk Comments: 93% TDAP VACCINE >7 IM ([id number])By: On: 07-Dec-2010 Intent Leigh Ann Polk Comments: Lot #:[id number] date:mount given:0.5mlRoute: IMSite given:left deltGiven by: DANIEL Zavaleta Eprescribed prescriptions On: 07-Dec-2010 Intent (G8553)By: Fast DO, Adelaida A Fast DO, Adelaida A FLU VAC, SPLIT, >3 YEARS, On: 07-Dec-2010 Intent INTRAMUSC ([id number])By: Felicitas, Comments: received at work Leigh Ann Toradol Injection, 30 mg On: 05-Nov-2010 Intent ([id number])By: Elizabet Green DO Comments: Lot:[id number]:apr 05Amt:30mg/mlRoute:IMSite:left hip Given By: ILDA Tran Ear Irrigation ([id number])By: Peter On: 05-Nov-2010 Intent Elizabet ACKERMAN Comments: Left ear irrigated, large amt of wax removed. pt tolerated well. Eprescribed prescriptions On: 05-Nov-2010 Intent (G8553)By: Eliazbet Green DO Wax CurettesBy: Peter ACKERMAN, On: 05-Nov-2010 Intent Elizabet SPECIMEN HNDLNG/TRNSPRT, OFFC > On: 05-Nov-2010 Intent LAB ([id number])By: Elizabet Green DO Nuclear Medicine - HIDA [...] call wet read DO, Adelaida A Spirometry ([id number])By: Fast DO, On: 14-Sep-2010 Intent Adelaida A Fast DO, Adelaida A Comments: good effort and curve- mild restriction Eprescribed prescriptions On: 14-Sep-2010 Intent (G8553)By: Flakito DO, Adelaida A Fast DO, Adelaida A Pulse Oximetry ([id number])By: Flakito On: 14-Sep-2010 Intent DO, Adelaida A Fast DO, Adelaida A Comments: 94-95 Radiology - Chest- PA and LatBy: On: 14-Sep-2010 Intent Fast DO, Adelaida A Fast DO, Adelaida A Pulse Oximetry ([id number])By: Carmina On: 23-Feb-2010 Intent PURCHASE ANALYST, Anamaria Aerosol Treatment ([id number])By: On: 23-Feb-2010 Intent Ciescalin IRVIN, Anamaria Pulse Oximetry ([id number])By: Ciesa On: 26-Jan-2010 Intent PURCHASE ANALYST, Anamaria Aerosol Treatment ([id number])By: On: 26-Jan-2010 Intent Carmina PURCHASE ANALYST, Anamaria Spirometry ([id number])By: Felicitas, On: 29-Apr-2008 Intent Leigh Ann Comments: good effort and curve normal EKG ([id number])By: Flakito DO, Adelaida A On: 20-Apr-2007 Intent Fast DO, Adleaida A Comments: ekg showed normal sinus rhythym, normal axis, no acute st/t wave changes Echo CompleteBy: Fast DO, Adelaida A On: 20-Apr-2007 Intent Fast DO, Adelaida A CT - ChestBy: Fast DO, Adelaida A On: 20-Apr-2007 Intent Fast DO, Adelaida A Comments: please include right axilla Rocephin Injection, 2 Gram On: 27-Mar-2007 Intent ([id number])By: Flakito ACKERMAN Adelaida A Flakito Comments: Lot #: [id number] date: 10/30Amount given: 2 gramsRoute: IMSite given: Right hip and left hipGiven by: Calin Townsend LPN DO Adelaida A Spirometry ([id number])By: Flakito ACKERMAN, On: 27-Mar-2007 Intent Adelaida A Fast DO, Adelaida A Comments: good effort and curve normal EBV SEROLOGIC TESTBy: Mary Ann Salcido On: 17-Feb-2007 Intent RUDY-GUZMAN VCA ANTIBODY On: 16-Feb-2007 Intent MEASUREMENTBy: Mast RN, Negrita SPECIMEN HNDLNG/TRNSPRT, OFFC > On: 06-Feb-2007 Intent LAB ([id number])By: Fast DO, Adelaida A Fast DO, Adelaida A Ultrasound - TesticularBy: Fast On: 13-Oct-2006 Intent DO, Adelaida A Fast DO, Adelaida A Inhaler Demo ([id number])By: Fast DO, On: 26-Sep-2006 Intent Adelaida A Fast DO, Adelaida A Radiology - Hip - LeftBy: Fast On: 26-Sep-2006 Intent DO, Adelaida A Fast DO, Adelaida A Radiology - Hip - RightBy: Fast On: 26-Sep-2006 Intent DO, Adelaida A Fast DO, Adelaida A Bio Z ([id number])By: Fast DO, Adelaida A On: 25-Jul-2006 Intent Fast DO, Adelaida A Comments: normal paremters Six Minute Walk Assessment On: 25-Jul-2006 Intent ([id number])By: Fast DO, Adelaida A Fast DO, Adelaida A Radiology - Chest- PA and LatBy: On: 25-Jul-2006 Intent Fast DO, Adelaida A Fast DO, Adelaida A Spirometry ([id number])By: Fast DO, On: 25-Jul-2006 Intent Adelaida A Fast DO, Adelaida A Comments: good effort and curve- normal EDISON (Ankle Brachial Index) On: 20-Jul-2006 Intent ([id number])By: Leigh Ann Polk Comments: done EDISON (Ankle Brachial Index) On: 17-May-2006 Intent ([id number])By: Fast DO, Adelaida A Fast DO, Adelaida [...] Indication: Neoplasm of uncertain behavior of skin [facility] Wellness Physical : Patient Instructions Indication: [facility] Well[facility] Physical [facility] Wellness Physical : How to access health information online Indication: [facility] Wellness Physical [facility] Wellness Physical : How to access health information online - Detail Indication: [facility] Well[facility] Physical Other hyperlipidemia [...] Advance Directives Name Dates Details Immunization Registry [place] - Effective on Effective: 31-Jan-201701/31/2017. 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. Has [facility]/u with him [...] up hospital : Pt was transfered to [facility] for heart cath and discharged sat 06/30/13.- he had heart cath again at [facility] and one vessel which shows 20percent more [...] saw a Dr Barker a psychiatrist in [place]- he thought mostly anxiety so left him [...]
--- OUTSIDE RECORDS SUMMARY | 2018-05-15 01:21 | XMS RPT_ITS ---
:1950 Author Organization OHIP Support Name Relationship Address Phone R Unavailable Unavailable Unavailable MANUEL TAN Unavailable [address] + [place] [address] DOMINICK, CHRISTAL Unavailable [address] + [place] [address] R Unavailable Unavailable Unavailable MANUEL TAN Unavailable [address] + [place] [address] DOMINICK CHRISTAL Unavailable [address] + [place] [address] R Unavailable Unavailable Unavailable DOMINICKMANUEL QUIÑONEZ Unavailable [address] + [place] [address] DOMINICK, CHRISTAL Unavailable [address] + [place] [address] R Unavailable Unavailable Unavailable DOMINICKMANUEL QUIÑONEZ Unavailable [address] + [place] [address] DOMINICK, CHRISTAL Unavailable [address] + [place] [address] R Unavailable Unavailable Unavailable DOMINICKAMNUEL Unavailable [address] + [place] [address] DOMINICK, CHRISTAL Unavailable [address] + [place] [address] R Unavailable Unavailable Unavailable DOMINICKHANNAHON Unavailable [address] + [place] [address] DOMINICK CHRISTAL Unavailable [address] + [place] [address] R Unavailable Unavailable Unavailable DOMINICKHANNAHON Unavailable [address] + [place] [address] DOMINICK CHRISTAL Unavailable [address] + [place] [address] R Unavailable Unavailable Unavailable MANUEL TAN Unavailable [address] + [place] [address] DOMINICK CHRISTAL Unavailable [address] + [place] [address] R Unavailable Unavailable Unavailable MANUEL TAN Unavailable [address] + [place] [address] MICHAEL TANT Unavailable [address] + [place] [address] R Unavailable Unavailable Unavailable MANUEL TAN Unavailable [address] + [place] [address] DOMINICK CHRISTAL Unavailable [address] + [place] [address] R Unavailable Unavailable Unavailable MANUEL TAN Unavailable [address] + [place] [address] MICHAEL TANT Unavailable [address] + [place] [address] R Unavailable Unavailable Unavailable MANUEL TAN Unavailable [address] + [place] [address] DOMINICK CHRISTAL Unavailable [address] + [place] [address] R Unavailable Unavailable Unavailable MANUEL TAN Unavailable [address] + [place] [address] DOMINICK CHRISTAL Unavailable [address] + [place] [address] R Unavailable Unavailable Unavailable MANUEL TAN Unavailable [address] + [place] [address] DOMINICK CHRISTAL Unavailable [address] + [place] [address] R Unavailable Unavailable Unavailable MANUEL TAN Unavailable [address] + [place] [address] DOMINICK, CHRISTAL Unavailable [address] + [place] [address] R Unavailable Unavailable Unavailable MANUEL TAN Unavailable [address] + [place] [address] DOMINICK CHRISTAL Unavailable [address] + [place] [address] R Unavailable Unavailable Unavailable MANUEL TAN Unavailable [address] + [place] [address] MICHAEL TANT Unavailable [address] + [place] [address] R Unavailable Unavailable Unavailable MANUEL TAN Unavailable [address] + [place] [address] MICHAEL TANT Unavailable [address] + [place] [address] R Unavailable Unavailable Unavailable MANUEL TAN Unavailable [address] + [place] [address] DOMINICK CHRISTAL Unavailable [address] + [place] [address] R Unavailable Unavailable Unavailable MANUEL TAN Unavailable [address] + [place] [address] MICHAEL TANT Unavailable [address] + [place] [address] R Unavailable Unavailable Unavailable MANUEL TAN Unavailable [address] + [place] [address] DOMINICK CHRISTAL Unavailable [address] + [place] [address] R Unavailable Unavailable Unavailable MANUEL TAN Unavailable [address] + [place] [address] MICHAEL TANT Unavailable [address] + [place] [address] R Unavailable Unavailable Unavailable MANUEL TAN Unavailable [address] + [place] [address] DOMINICK CHRISTAL Unavailable [address] + [place] [address] R Unavailable Unavailable Unavailable MANUEL TAN Unavailable [address] + [place] [address] DOMINICK CHRISTAL Unavailable [address] + [place] [address] R Unavailable Unavailable Unavailable MANUEL TAN Unavailable [address] + [place] [address] DOMINICK CHRISTAL Unavailable [address] + [place] [id number] R Unavailable Unavailable Unavailable DOMINICKHANNAHON Unavailable [address] + [place] [id number] CHRISTAL TAN Unavailable [address] + [place] [address] Care Team Providers Name Role Phone Fast DO, Adelaida A Attending Unavailable Fast DO, Adelaida A Referring Unavailable Fast DO, Adelaida A Consulting Unavailable Fast, Adelaida Attending Unavailable Fast, Adelaida Referring Unavailable Fast, Adelaida Primary Care Unavailable Sibilia, Tawanda Attending Unavailable Fast, Adelaida Attending Unavailable Fast, Adelaida Referring Unavailable Fast, Adelaida Primary Care Unavailable Sibafia, Tawanda Attending Unavailable Fast, Adelaida Primary Care Unavailable Sibilia, Tawanda Referring Unavailable Fast, Adelaida Attending Unavailable Fast, Adelaida Primary Care Unavailable Joy, Sabra Attending Unavailable Joy, Sabra Attending Unavailable MoodispaRemigio gaona Attending Unavailable Fast, Adelaida Referring Unavailable Fast, Adelaida Primary Care Unavailable Moodispacandelaria, Remigio Attending Unavailable MoodispawRemigio Referring Unavailable Fast, Adelaida Primary Care Unavailable Sibilia, Tawanda Attending Unavailable Fast, Adelaida Primary Care Unavailable Sibilia, Tawanda Referring Unavailable Fast, Adelaida Referring Unavailable Moodispaw, Remigio Attending Unavailable Moodispaw, Remigio Referring Unavailable Fast, Adelaida Primary Care Unavailable Moodispacandelaria, Remigio Attending Unavailable Fast, Adelaida Referring Unavailable Joy, Sabra Attending Unavailable Moodispaw, Remigio Attending Unavailable MoodispawRemigio Referring Unavailable Fast, Adelaida Primary Care Unavailable Moodispacandelaria, Remigio Attending Unavailable Moodispaw, Remigio Referring Unavailable Fast, Adelaida Primary Care Unavailable Moodispaw Remigio Consulting Unavailable Moodispaw, Remigio Attending Unavailable Moodispaw, Remigio Referring Unavailable Fast, Adelaida Primary Care Unavailable Fast, Adelaida Attending Unavailable Fast, Adelaida Referring Unavailable Fast, Adelaida Primary Care Unavailable Moodispaw, Remigio Attending Unavailable Fast, Adelaida Attending Unavailable Fast, Adelaida Primary Care Unavailable Fast, Adelaida Referring Unavailable Fast, Adelaida Attending Unavailable Fast, Adelaida Referring Unavailable Fast, Adelaida Primary Care Unavailable Perico Crowe Attending Unavailable [place], [place] Referring Unavailable Fast, Adelaida Primary Care Unavailable Perico Crowe Attending Unavailable Miedel, Perico Referring Unavailable Fast, Adelaida Primary Care Unavailable Sibilia, Tawanda Attending Unavailable SibiliaTawanda Referring Unavailable Fast, Adelaida Primary Care Unavailable Fast, Adelaida Attending Unavailable Fast, Adelaida Referring Unavailable Fast, Adelaida Primary Care Unavailable Sabra Leonard Attending Unavailable Fast, Adelaida Referring Unavailable PROBLEMS PROBLEMS DATE TYPE CONDITION / CODE ATTENDING STATUS SOURCE 12/05/2017 Unknown Z12.5 - Encounter for Fast, Adelaida Active [facility] screening for Community malignant neoplasm of Hospital prostate / Repository Z12.5(ICD-10) 12/05/2017 Unknown R73.02 - Impaired Fast, Adelaida Active [facility] glucose tolerance Community (oral) / Hospital R73.02(ICD-10) Repository 12/05/2017 Unknown J45.40 - Moderate Fast, Adelaida Active [facility] persistent asthma, Community uncomplicated / Hospital J45.40(ICD-10) Repository 10/19/2017 Unknown J45.909 - Unspecified Tawanda Alonso Active [facility] asthma, uncomplicated Community / J45.909(ICD-10) Hospital Repository 02/06/2018 Unknown H53.2 - Diplopia / [place]el, [place] Active [facility] H53.2(ICD-10) Community Hospital Repository 09/10/2017 Unknown J47.9 - Fast, Adelaida Active [facility] Bronchiectasis, Community uncomplicated / Hospital J47.9(ICD-10) Repository 08/19/2017 Unknown I25.10 - MoodispaRemigio gaona Active [facility] Atherosclerotic heart [facility] disease of [facility] coronary artery Repository without angina pectoris / I25.10(ICD-10) 08/19/2017 Unknown Z95.5 - Presence of MoodispaRemigio gaona Active [facility] coronary angioplasty Community implant and graft / Hospital Z95.5(ICD-10) Repository 08/19/2017 Unknown I10 - Essential MoodispaRemigio gaona Active [facility] (primary) Community hypertension / Hospital I10(ICD-10) Repository 08/19/2017 Unknown E78.5 - MoodispaRemigio gaona Active [facility] Hyperlipidemia, Community unspecified / Hospital E78.5(ICD-10) Repository 08/19/2017 Unknown R94.39 - Abnormal MoodispaRemigio gaona Active [facility] result of other [facility] cardiovascular Hospital function study / Repository R94.39(ICD-10) 08/19/2017 Unknown R06.02 - Shortness of MoodispaRemigio gaona Active [facility] breath / Community R06.02(ICD-10) Hospital Repository 08/23/2017 Unknown J40 - Bronchitis, not Sibilia, Tawanda Active [facility] specified as acute or Community chronic / J40(ICD-10) Hospital Repository PROCEDURES PROCEDURES No Procedure Records FoundRESULTS RESULTS WRIST MIN 3 VIEWS Observed: 03/10/2018 Status: F Source: [facility] 12:09 PM [facility] REPOSITORY [facility] [address] [place] [address] Wrist min 3 Views MR#: [id number] Acct: [id number] Name: RIGOBERTO TAN Rep #: [id number] : 1950 M 67 From: Donnell Bliss MD PCP: Adelaida Stephens DO Status: REG CLI Study: Wrist min 3 Views Date of Exam: 03/10/18 Exam# [id number] Ordering Dr: Adelaida Stephens DO STUDY: X-RAY - RIGHT WRIST REASON FOR EXAM: Male, 67 years old. Pain. TECHNIQUE: 3 view(s) of the wrist were obtained. COMPARISON: None. FINDINGS: Normal visualized distal radius and ulna. Normal radiocarpal articulation. Normal distal radioulnar articulation. Normal carpal bones. Normal carpal articulations. Normal carpometacarpal articulation of the thumb. Normal second through fifth carpometacarpal articulations. Normal visualized metacarpal bones. The soft tissue structures are unremarkable. Calcified radial and ulnar arteries. RAD/Wrist min 3 Views IMPRESSION: Normal x-ray examination of the wrist. Electronically Signed: Donnell Bliss MD at 14:33 EST , Service support , CC: Adelaida Stephens DO Concrete Worker: Signed KNEE 4 OR MORE Observed: 03/10/2018 Status: F Source: [facility] VIEWS 12:06 PM [facility] REPOSITORY [facility] Services [address] [place] [id number] Knee 4 or More Views MR#: [id number] Acct: [id number] Name: RIGOBERTO TAN Rep #: [id number] : 1950 M 67 From: Donnell Bliss MD PCP: Adelaida Stephens DO Status: REG CLI Study: Knee 4 or More Views Date of Exam: 03/10/18 Exam# [id number] Ordering Dr: Adelaida Stephens DO STUDY: X-RAY - LEFT KNEE REASON FOR EXAM: Male, 67 years old. Pain. TECHNIQUE: 5 view(s) of the knee. COMPARISON: None. FINDINGS: Normal visualized distal femur. Normal visualized proximal tibia and fibula. Normal proximal tibiofibular articulation. There is no demonstrated fracture. Normal medial femorotibial compartment. Normal lateral femorotibial compartment. Normal patellofemoral articulation. There is no demonstrated joint effusion. The soft tissue structures are unremarkable. RAD/Knee 4 or More Views IMPRESSION: Normal x-ray examination of the knee. Electronically Signed: Donnell Bliss MD at 14:04 EST , Service support , CC: Adelaida Stephens DO Concrete Worker: Signed OBSOLETE Observed: 01/15/2018 Status: COMPLETED Source: [place] 12:00 AM [facility] OTHER [facility] REPOSITORY Refill (UROLAE) DOMINICKRIGOBERTO QUIÑONEZ ([id number]) 1950 M Date Time Provider Department 01/15/18 [facility] ([facility]) GUSTABO During your visit today, we recorded the following information about you: Allergies As of Date: 01/15/2018 Noted Allergy Reaction ACTIFED (TRIPROLIDINE-PSEUDOEPHED*08/27/2005 5 - Intolerance IODINE 08/27/2005 5 - Intolerance Date Reviewed: 04/28/2009 Reviewed by: [employer] - Reviewed Reason for Visit: Refill Request [94] Order(s):tamsulosin ER (FLOMAX) 0.4 mg cap1 CAPSULE ONCE A DAYDisp: 30 capsuleRfl: 11 Prescriptions as of 01/15/2018 Sig: TAMSULOSIN 0.4 MG CAPSULE 1 CAPSULE ONCE A DAY * ATENOLOL 25 MG TABLET Take one(1) tablet daily. * LISINOPRIL 5 MG TABLET takes 1/2 tab daily * NITROGLYCERIN 0.4 MG SUBLINGU* Dissolve one(1) tablet under * * FLOVENT HFA 110 MCG/ACTUATION* as needed * PREVACID 30 MG CAPSULE,DELAYE* Take (1) twice daily * CRESTOR 10 MG TABLET takes 3 tabs once a day * NIACIN 100 MG TABLET Take one(1) tablet daily. * MEDICATION, NON-DATABASE Skellaxin 800 mg Take one(1) * * NASACORT AQ 55 MCG NASAL SPRA* as directed * MULTIVITAMIN TABLET Take one(1) tablet daily. * FISH OIL OMEGA 3-6-9 300 MG-1* 200 mg takes 1 daily * TYLENOL EXTRA STRENGTH 500 MG* as needed * ALEVE 220 MG TABLET as needed * MEDICATION, NON-DATABASE Align 17grams takes 1 daily * CELEXA 40 MG TABLET Take one(1) tablet daily. * ECOTRIN LOW STRENGTH 81 MG TA* Take one(1) tablet daily. * SINGULAIR 10 MG TABLET Take one(1) tablet daily. * NITROGLYCERIN 0.6 MG/HR TRANS* as directed * SKELAXIN 800 MG TABLET Take one(1) tablet two(2) morena* * NASACORT AQ 55 MCG NASAL SPRA* Take as directed. * PLAVIX 75 MG TABLET Take one(1) tablet daily. Problem List As Of Date 01/15/2018 Noted Resolved CARPAL TUNNEL SYNDROME [G56.00] More... 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 Encounter Status:Closed by KVNG PANCHAL MD on 01/16/18 CARDIOLOGY VISIT Observed: 01/10/2018 Status: F Source: [place] REPORT 11:04 AM [facility] REPOSITORY [facility] [address] [place] [address]. [address] [place] [address] OFFICE VISIT Date of Service: 01/10/18 MR#: [id number] Acct: [id number] Name: RIGOBERTO TAN Rep #: [id number] : 1950 Provider: Sabra Leonard Age/Sex: 67/M Location: [facility] Status: Signed HPI HPI Details: RIGOBERTO TAN, is a 67 M who presents to [...] not have any orthopnea. He does not have any symptoms of congestive heart failure. He does not have any palpitations that he is aware of. He does not have any lightheadedness or dizziness. He does not have any near-syncope or syncope. He does not have any lower extremity edema. He does not have any symptoms of claudication. Intake Vital Signs01/10/18 Height 5 ft 10 in 01/10/18 Weight: 280 lb 01/10/18 Body Mass Index (BMI) 40.1 01/10/18 Blood Pressure 108/56 L Intake Visit Reasons: 6 M Web Administrator Required: No Accompanied by: None Is patient in pain?: No Allergies iodine Allergy (Verified 01/10/18 10:27) Rash, upset stomach, facial swelling Penicillins Allergy (Verified 01/10/18 10:27) Rash pseudoephedrine HCl [From Actifed] Allergy (Verified 01/10/18 10:27) mood changes triprolidine HCl [From Actifed] Allergy (Verified 01/10/18 10:) mood changes Medications Aspirin [Aspirin, Baby] 81 mg PO DAILY@0800 06/28/13 [History Confirmed 01/10/18] Montelukast [Singulair] 10 mg PO QHS 06/28/13 [History Confirmed 01/10/18] Pantoprazole Sodium [Protonix] 40 mg PO BID 06/28/13 [History Confirmed 01/10/18] Amlodipine [Norvasc] 5 mg PO DAILY 10/18/13 [History Confirmed 01/10/18] albuterol sulfate 2.5 mg/3 mL (0.083 %) solution for nebulization 1.25 mg INHALATION Q4H PRN 07/12/17 [History Confirmed 01/10/18] albuterol sulfate HFA 90 mcg/actuation aerosol inhaler 2 puff INHALATION Q4H PRN 07/12/17 [History Confirmed 01/10/18] azelastine 0.15 % (205.5 mcg) nasal spray [...] PO QDAY PRN tab 07/12/17 [History Confirmed 01/10/18] mirabegron ER 50 mg tablet,extended release 24 hr 50 mg PO QDAY 07/12/17 [History Confirmed 01/10/18] buspirone 10 mg tablet 30 mg PO BID tab 07/14/17 [History Confirmed 01/10/18] cholecalciferol (vitamin D3) 2,000 unit tablet 2,000 unit PO QDAY 07/14/17 [History Confirmed 01/10/18] fluticasone 200 mcg-vilanterol 25 mcg/dose powder for inhalation 1 inh INHALATION QDAY 07/14/17 [History Confirmed 01/10/18] lactobacillus combination no.8 3 billion cell capsule 3,000 mmu cells PO QDAY 07/14/17 [History Confirmed 01/10/18] multivitamin tablet 1 tab PO QDAY 07/14/17 [History Confirmed 01/10/18] rosuvastatin 40 mg tablet 40 mg PO QDAY 07/14/17 [History Confirmed 01/10/18] tamsulosin 0.4 mg capsule 0.4 mg PO DAILY cap 07/14/17 [History Confirmed 01/10/18] venlafaxine ER 150 mg capsule,extended release 24 hr 150 mg PO QHS 07/14/17 [History Confirmed 01/10/18] venlafaxine ER 75 mg capsule,extended release 24 hr 75 mg PO QAM cap 07/14/17 [History Confirmed 01/10/18] ranolazine ER 1,000 mg tablet,extended release,12 hr 1,000 mg PO BID #180 tab 10/27/17 [Rx Confirmed 01/10/18] nitroglycerin 0.6 mg/hr transdermal 24 hour patch 0.6 mg TRANSDERMAL DAILY #30 ea 11/22/17 [Rx Confirmed 01/10/18] metformin ER 500 mg tablet,extended release 24 hr 1,000 mg PO QPM tab 01/10/18 [History Confirmed 01/10/18] Ejection fraction %: 60 to 64 PFSH Medical History SOB (shortness of breath) (Acute) Abnormal stress test (Acute) Hyperlipidemia (Chronic) Hypertension (Chronic) Prinzmetal angina (Acute) Atherosclerotic heart disease of [place] coronary artery without angina pectoris (Chronic) Anxiety (Chronic) Asthma (Chronic) BPH (benign prostatic hyperplasia) (Chronic) Bronchiectasis (Chronic) Depression (Chronic) GERD (gastroesophageal reflux disease) (Chronic) URIEL (obstructive sleep apnea) (Chronic) Surgical History Presence of stent in coronary artery (Chronic 08/11/05) Postsurgical percutaneous transluminal coronary angioplasty (PTCA) status (Chronic) History of carpal tunnel surgery (Resolved) History of lithotripsy (Resolved) History of parathyroid surgery (Resolved) History of rotator cuff surgery (Resolved) History of tonsillectomy (Resolved) Family History Father CAD (coronary artery disease) CVA (cerebral vascular accident) Hypertension Alzheimer's dementia Brother Rheumatoid arthritis Brother Cancer non hodgkins lymphoma Social History Smoking Status: Former smoker how long ago did patient quit smokin years ago alcohol intake: current alcohol intake frequency: a few times a month Alcohol type: beer substance use type: does not use caffeine: Yes Type: coffee Number of servings: 2 ROS Const Const: Negative for weakness, fatigue, fever(s) or headache(s) Eyes Eyes: Negative for blind spots, loss of peripheral vision or transient loss of vision ENT ENT: Negative for headache(s), dizziness, tinnitus or Nosebleed/epistaxis Cardio Chest Pain: No Palpitations: No Edema: None Muscle aches with walking: None Resp Respiratory: Negative for SOB with activity, SOB at rest, SOB orthopnea\SOB lying down [...] Head: normocephalic and atraumatic Mouth: moist mucous membranes Eyes General: appearance normal, both eyes and all related structures Conjunctivae: conjunctivae normal Pupils: PERRL EOM: EOM intact bilaterally Neck Neck: normal visual inspection, no lymphadenopathy and no JVD Carotids: Negative bruit Neck [...] Pulses: Normal: Right Posterior Tibial Pulse, Left Posterior Tibial Pulse, Right Radial Pulse, Left Radial Pulse Lower Extremity Edema: None: Bilateral Psych Psychological: normal affect Supplemental Info Echocardiogram in 2018 demonstrated: The study was technically difficult. Contrast injection was performed. Segmental dysfunction with preserved ejection fraction (see wall motion). The estimated ejection fraction is 60 %. Trivial mitral valve insufficiency. Trivial tricuspid valve insufficiency. Mild (1+) pulmonic valve insufficiency. Right ventricular systolic pressure estimated to be 30 mmHg. Normal diastology for age. Stress test in 2018 demonstrated: Stress nuclear study: imaging concerning for changes in the inferior distribution. Heart cath in 2018 demonstrated: Elevated Left Ventricular End Diastolic Pressure Normal LV size, wall motion,and systolic function LVEF: by LV gram 65 % [place] Multivessel CAD LAD stent: patent DX stent: patent RECOMMENDATIONS Risk factor modification Medical therapy Assessment AND Plan 1. Atherosclerosis of [place] coronary artery of [place] heart without angina pectoris I25.10 PTCA/RINA to Prox LAD 08/11/05 Plan Stable, from a cardiac standpoint patient does not have any symptoms of angina. We recommend that they continue with current aggressive medical management and risk factor modification. 2. Essential hypertension I10 Plan Well controlled on current medications. Will not make any adjustments. 3. Pure hypercholesterolemia E78.00; E78.0 Plan Laboratory [...] reviewing the office note prior to saving. Follow Up 9 Months (MMM) Coding Level of Care Code Off vis,est,level 3 Diagnoses Atherosclerosis of [place] coronary artery of [place] heart without angina pectoris I25.10 [place] vs. 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 01/10/18 1104 <Electronically signed by Sabra KENDALL> Date Sabra KENDALL Cosigner Signature: Date (if applicable) CC: Adelaida Stephens DO CBC W/DIFF, AUTOMATED Collected: 12/05/2017 Status: F Source: [place] 5:31 PM [facility] REPOSITORY TYPE CODE TESTS RESULT OUT OF RANGE REFERENCE UNITS LAB L100.1000 4.4-11.0 K/mm3 Normal WBC 5.7 LAB L100.1200 4.6-6.2 M/mm3 Low RBC 4.25 LAB L100.1300 13.0-16.5 g/dl Normal HGB 13.0 LAB L100.1400 40-54 % Low HCT 39.3 LAB L100.1500 80-94 fL Normal MCV 92.5 LAB L100.1600 27.0-32.0 pg Normal MCH 30.6 LAB L100.1700 32-36 g/gl Normal MCHC 33.1 LAB L100.1810 11.6-14.6 % Normal RDW CV 14.2 LAB L100.1820 35.1-43.9 fl High RDW SD 47.4 LAB L100.1900 150-450 K/mm3 Normal PLT 174 LAB L100.2000 6.2-12.0 fl Normal MPV 8.6 LAB L100.2100 47-70 % Normal NEUT% 55.2 LAB L100.2200 19-41 % Normal LY% 31.2 LAB L100.2300 0-10 % Normal MONO% 9.6 LAB L100.2400 0-5 % Normal EO% 3.4 LAB L100.2500 0-1 % Normal BASO% 0.4 LAB L100.2550 0.0-0.9 % Normal IM GRAN % 0.200 Result Comment: IG% - Immature Granulocytes (promyelocytes, myelocytes and metamyelocytes) > 1% indicates that a LEFT SHIFT is Present. LAB L100.2620 2.0-7.7 X10 3/uL Normal Absolute Neut 3.1 LAB L100.2720 0.83-4.51 X10 3/ul Normal Absolute Lymph 1.76 Performed By: #### L100.0100 #### [facility] [address] [place], [address] HEMOGLOBIN A1C Collected: 12/05/2017 Status: F Source: [place] 5:31 PM [facility] REPOSITORY TYPE CODE TESTS RESULT OUT OF RANGE REFERENCE UNITS [facility] L501.9985 4.2-6.3 % Normal HGB A1C 6.0 Performed By: #### L501.9985 #### [facility] [address] [place], [place], [address] COMPREHENSIVE METABOLIC Collected: 12/05/2017 Status: F Source: [facility] 5:31 PM [facility] REPOSITORY TYPE CODE TESTS RESULT OUT OF RANGE REFERENCE UNITS LAB L501.0100 74-106 mg/dL High GLU 108 Result Comment: Fasting Glucose result from 100 to 125 mg/dL suggests IMPAIRED HOMEOSTASIS per A.D.A. criteria. Please note revised GLUCOSE reference range effective 2017. LAB L501.1000 7-18 mg/dL Normal BUN 13 LAB L501.1100 0.70-1.30 mg/dL Normal CREAT,SERUM 1.12 Result Comment: The validity of the calculated GFR AND GFRAA in patients over 70 years has not been determined. Clinical correlation is essential. LAB L501.1110 >60 mL/min Normal EST GFR 70 Result Comment: Non- GFR Calc LAB L501.1115 >60 mL/min Normal EST GFR - AA 85 Result Comment: GFR Calc LAB L501.1300 10-20 RATIO Normal BUN/CRE 11.6 LAB L501.1500 6.4-8.2 g/dL T Normal PROT 6.7 LAB L501.1800 3.2-5.0 g/dL Normal ALB 3.3 LAB L501.1950 2.2-4.2 g/dL Normal GLOB 3.4 LAB L501.2000 0.9-2.4 RATIO Normal A/G 1.0 LAB L501.2200 8.5-10.1 mg/dL CA Normal 8.5 LAB L501.4100 15-37 U/L Normal AST 17 LAB L501.4305 45-117 U/L Normal ALK P 53 LAB L501.4405 16-61 U/L Normal ALT 27 LAB L501.4600 0.20-1.00 mg/dL T Normal BILI 0.50 LAB L501.5300 136-145 mmol/L NA Normal 137 LAB L501.5600 3.5-5.1 mmol/L K Normal 4.1 LAB L501.5900 98-107 mmol/L CL Normal 100 LAB L501.6100 21.0-32.0 mmol/L Normal CO2 28.0 LAB L501.6200 5-15 Normal GAP 9 Performed By: #### L500.4050, L500.4100, L501.9910 #### [facility] [address] [place], [address] LIPID PROFILE Collected: 12/05/2017 Status: F Source: [place] 5:31 PM [facility] [place] REPOSITORY TYPE CODE TESTS RESULT OUT OF RANGE REFERENCE UNITS LAB L501.4900 200 mg/dL Normal CHOL 145 Result Comment: <200 mg/dL Desirable 200-240 mg/dL Borderline >240 mg/dL High Risk LAB L501.5000 mg/dL Normal TRIG 120 Result Comment: The drugs N-Acetylcysteine and Metamizole may falsely depress this assay. Serum Triglycerides Reference Interval Normal <150 mg/dL Borderline high 150 - 199 mg/dL High 200 - 499 mg/dL Very High > or = 500 mg/dL LAB L501.6400 mg/dL Normal HDL 53 Result Comment: The drugs N-Acetylcysteine and Metamizole may falsely depress this assay. Reference Range HDL <40 mg/dL Low HDL Cholesterol HDL >or= 60 mg/dL High HDL Cholesterol LAB L501.6500 0-130 mg/dL Normal LDL 68 LAB L501.6600 5-40 mg/dL Normal VLDL 24 Performed By: #### L500.4050, L500.4100, L501.9910 #### [facility] [address] [place], [address] PSA,TOTAL - ANNUAL Collected: 12/05/2017 Status: F Source: [place] SCREEN 5:31 PM [facility] [place] REPOSITORY TYPE CODE TESTS RESULT OUT OF RANGE REFERENCE UNITS LAB L501.9910 0.00-4.00 ng/mL Normal PSA,TOT 0.50 SCREEN Result Comment: This test was performed using the TPSA assay method for the Backpack chemistry system. Values obtained with different assay methods cannot be used interchangably. When changing PSA assays in the course of monitoring a patient, additional sequential testing should be carried out to confirm baseline values. Performed By: #### L500.4050, L500.4100, L501.9910 #### [facility] [address] [place], [address] MISCELLANEOUS LAB Collected: 10/08/2017 Status: F Source: [place] PROCEDURE 10:42 AM [facility] [place] REPOSITORY Order Comment: Comments: [id number],TIGER,RT Test(s) Ordered: [id number],TIGER,RT TYPE CODE TESTS RESULT OUT OF RANGE REFERENCE UNITS LAB L801.1541 Normal [facility] [place] Result Comment: TEST RESULT UNITS REFERENCE INTERVAL A. fumigatus #1 Abs NEGATIVE NEGATIVE TESTING PERFORMED AT [facility]. ORIGINAL REPORT ON FILE IN LAB CONTAINS ADDITIONAL TEST SITE INFORMATION. Performed By: #### L801.1541 #### [facility] [address] [place], [place], [address] IMMUNOGLOBULIN G Collected: 10/08/2017 Status: F Source: [place] 10:42 AM [facility] [place] REPOSITORY TYPE CODE TESTS RESULT OUT OF RANGE REFERENCE UNITS LAB L3200.4870 811-0682 mg/dL Normal IMMUNO G 702 Result Comment: Performed at: - [address] [id number] Speech Pathologist Assistant: Joseph Velez MD, Phone: [phone] Performed at: [facility] [address] [id number] Speech Pathologist Assistant: Hugo Britt PhD, Phone: [phone] Performed By: #### L3200.1300, L3200.1600, L3500.3600 #### [facility] (refer to report for specific site) refer to report for address and phone number IMMUNOGLOBULIN E Collected: 10/08/2017 Status: F Source: [place] 10:42 AM [facility] [place] REPOSITORY TYPE CODE TESTS RESULT OUT OF RANGE REFERENCE UNITS LAB L3200.1600 0-100 IU/mL Normal IMMUNO E 19 Performed By: #### L3200.1300, L3200.1600, L3500.3600 #### [facility] (refer to report for specific site) refer to report for address and phone number ASPERGILLUS ANTIBODIES Collected: 10/08/2017 Status: F Source: [place] 10:42 AM [facility] [place] REPOSITORY TYPE CODE TESTS RESULT OUT OF RANGE REFERENCE UNITS LAB L3500.3700 Neg:<1:1 Asp. Normal fumigatus Negative LAB L3500.3800 Neg:<1:1 Asp. Normal flavus Negative LAB L3500.3900 Neg:<1:1 Asp. Normal niger Negative Performed By: #### L3200.1300, L3200.1600, L3500.3600 #### [facility] (refer to report for specific site) refer to report for address and phone number BRAIN W/WO CONTRAST Observed: 09/26/2017 Status: F Source: [place] 1:29 PM [facility] [place] REPOSITORY [facility] [address] [place] [address] Brain W/WO Contrast MR#: [id number] Acct: [id number] Name: RIGOBERTO TAN Rep #: [id number] : 1950 M 67 From: Rodney Sarah MD PCP: Adelaida Stephens DO Status: REG CLI Study: Brain W/WO Contrast Date of Exam: 09/26/17 Exam# [id number] Ordering Dr: Perico Crowe MD STUDY: MRI BRAIN WITH AND WITHOUT CONTRAST REASON FOR EXAM: Male, 67 years old. Diplopia possible brain lesion or luminal mass TECHNIQUE: Standardized multiplanar fat and water weighted pulse sequences were obtained. 12 ml of Gadavist contrast material was administered intravenously for the contrast portion of the examination. COMPARISON: None. FINDINGS: Mild atrophy and minor periventricular white matter ischemic changes without evidence for restricted diffusion... Dilated cavum septum lucidum which is normal developmental variant Normal bilateral basal ganglia. Normal thalami. There is no extra-axial fluid accumulation. Normal flow voids within the major intracranial circulation suggesting patency by spin echo criteria. Normal venous enhancement. There is no enhancing intra-axial or extra-axial abnormality. There is asymmetric tortuosity [...] Normal calvarium and skull base. Normal visualized soft tissue structures. Normal visualized upper cervical spine. MRI/Brain W/WO Contrast IMPRESSION: Mild atrophy and minor periventricular white matter ischemic changes without evidence for acute infarct.. Normal symmetric appearance to the orbits Incidental finding of asymmetric tortuosity of the left cavernous carotid of uncertain clinical significance Electronically Signed: Rodney Sarah MD at 16:39 EDT , Service support , CC: Perico Crowe MD; Adelaida Stephens DO Concrete Worker: Signed BUN Collected: 09/23/2017 Status: F Source: [place] 11:28 AM [facility] [place] REPOSITORY TYPE CODE TESTS RESULT OUT OF RANGE REFERENCE UNITS LAB L501.1000 7-18 mg/dL Normal BUN 9 Performed By: #### L501.1000, L501.1105 #### [facility] [address] [place], [place], [address] SERUM CREATININE AND Collected: 09/23/2017 Status: F Source: [place] GFR 11:28 AM [facility] [place] REPOSITORY TYPE CODE TESTS RESULT OUT OF RANGE REFERENCE UNITS LAB L501.1100 0.70-1.30 mg/dL Normal 0.97 CREAT,SERUM Result Comment: The validity of the calculated GFR AND GFRAA in patients over 70 years has not been determined. Clinical correlation is essential. LAB L501.1110 >60 mL/min Normal EST GFR 83 Result Comment: Non- GFR Calc LAB L501.1115 >60 mL/min Normal EST GFR - AA 100 Result Comment: GFR Calc Performed By: #### L501.1000, L501.1105 #### [facility] [address] [place], [place], [address] ACETYLCHOLINE RECEPTOR Collected: 09/23/2017 Status: F Source: [place] 11:28 AM [facility] [place] REPOSITORY Order Comment: Has Patient had Radioactive Injection for X-ray?: N TYPE CODE TESTS RESULT OUT OF RANGE REFERENCE UNITS LAB L3300.0600 0.00-0.24 nmol/L Normal ACTYL < 0.03 [id number] Result Comment: Negative: 0.00 - 0.24 Borderline: 0.25 - 0.40 Positive: > 0.40 Performed at: [facility] [id number] Speech Pathologist Assistant: Joseph Velez MD, Phone: [phone] Performed By: #### L3300.0600 #### [facility] (refer to report for specific site) refer to report for address and phone number CAROTID DUPLEX Observed: 09/17/2017 Status: F Source: [place] ULTRASOUND 3:12 PM [facility] [place] REPOSITORY [facility] [address] [place] [address] Carotid Duplex Ultrasound 09/16/17 1012 MR#: [id number] Acct: [id number] Name: RIGOBERTO TAN Rep #: [id number] : 1950 66 From: Jung Garcia MD Attending Dr: Adelaida Stephens DO Status: REG CLI Ordering Dr: Adelaida Stephens DO Date: 09/16/17 Location: [facility] Sex: M C Admitted: Reason For Study: stenosis Rt. Velocities/BP Lt. Velocities/BP Prox CCA 82.7/10.6 cm/sec. Prox CCA 76.2/19.36 cm/sec. Mid CCA 75.0/14.7 cm/sec. Mid CCA 68.6/14.7 cm/sec. Dist CCA 48.3/9.82 cm/sec. Dist CCA 63.9/18.8 cm/sec. Prox ICA 39.7/14.1 cm/sec. Prox ICA 53.0/15.7 cm/sec. Mid ICA 55.0/20.8 cm/sec. Mid ICA 63.6/22.8 cm/sec. Dist ICA 64.4/23.2 cm/sec. Dist ICA 66.8/24.4 cm/sec. Rt. ICA/CCA = 64.4/75.0=0.86. Lt. ICA/CCA = 66.8/68.6=0.97. Prox ECA 79.7/10.6 cm/sec. Prox ECA 75.0/12.9 cm/sec. Rt. Vert. 42.0/13.4 cm/sec. Lt. Vert. 38.1/12.2 cm/sec. Right Extracranial There is homogeneous, smooth atherosclerotic plaque noted in the right common carotid artery. There is homogeneous, smooth atherosclerotic plaque noted in the right internal carotid artery. There is intimal thickening but no significant atherosclerotic plaque noted in the right external carotid artery. Antegrade flow is noted in the right vertebral artery. Left Extracranial There is intimal thickening but no significant atherosclerotic plaque noted in the left common carotid artery. There is homogeneous, smooth atherosclerotic plaque noted in the left internal carotid artery. There is homogeneous, smooth atherosclerotic plaque noted in the left external carotid artery. Antegrade flow is noted in the left vertebral artery. Procedure Carotid Duplex [id number]. The study was technically difficult. Exam performed in department. Interpretation Summary Mild (<50%) stenosis right extracranial internal carotid. Mild (<50%) stenosis left extracranial internal carotid. Flow within the vertebral arteries is antegrade bilaterally. Ordering Physician: Adelaida Stephens Referring Physician: Adelaida Stephens V Performed By: Nilda Rahman, MORE, RVT 09/17/17 1511 Date Jung Garcia MD CC: Adelaida Stephens DO Date Dictated: 09/16/17 1012 Date Transcribed: 09/17/171510 Concrete Worker: Signed Observed: 09/09/2017 Status: F Source: [place] CULTURE, [place] 2:13 PM [facility] [place] REPOSITORY Gram Stain Acceptable Specimen? Yes (<25 Epithelial cells per/lpf) Gram Stain 2+ White Blood Cells 2+ Epithelial cells 4+ Gram positive cocci 4+ Gram positive rods Resp. Culture No Haemophilus, Streptococcus pneumoniae, beta-hemolytic Streptococcus or Staphylococcus aureus isolated. ORGANISM 1: Yeast Like Organism Amount Growth Rare ORGANISM 2: Mixed Marisa Amount Growth 3+ Performed By: #### M100.0800 #### [facility] [address] [place], [address] Observed: 09/09/2017 Status: F Source: [place] NICOLAS FUNGUS [id number] 2:13 PM [facility] [place] REPOSITORY Cu,[id number] TESTING PERFORMED AT [facility]. ORIGINAL REPORT ON FILE IN LAB CONTAINS ADDITIONAL TEST SITE INFORMATION. ORGANISM 1: Nusrat albicans Amount Growth Growth ORGANISM 2: Penicillium species Amount Growth Growth Performed By: #### M600.2000 #### [facility] [address] [place], [address] CBC W/DIFF, AUTOMATED Collected: 09/05/2017 Status: F Source: [place] 4:59 PM [facility] [place] REPOSITORY TYPE CODE TESTS RESULT OUT OF RANGE REFERENCE UNITS LAB L100.1000 4.4-11.0 K/mm3 Normal WBC 10.8 LAB L100.1200 4.6-6.2 M/mm3 Low RBC 4.51 LAB L100.1300 13.0-16.5 g/dl Normal HGB 13.7 LAB L100.1400 40-54 % Normal HCT 40.7 LAB L100.1500 80-94 fL Normal MCV 90.2 LAB L100.1600 27.0-32.0 pg Normal MCH 30.4 LAB L100.1700 32-36 g/gl Normal MCHC 33.7 LAB L100.1810 11.6-14.6 % Normal RDW CV 13.9 LAB L100.1820 35.1-43.9 fl High RDW SD 44.7 LAB L100.1900 150-450 K/mm3 Normal PLT 338 LAB L100.2000 6.2-12.0 fl Normal MPV 8.4 LAB L100.2100 47-70 % High NEUT% 75.6 LAB L100.2200 19-41 % Low LY% 18.4 LAB L100.2300 0-10 % Normal MONO% 5.1 LAB L100.2400 0-5 % Normal EO% 0.3 LAB L100.2500 0-1 % Normal BASO% 0.1 LAB L100.2550 0.0-0.9 % Normal IM GRAN % 0.500 Result Comment: IG% - Immature Granulocytes (promyelocytes, myelocytes and metamyelocytes) > 1% indicates that a LEFT SHIFT is Present. LAB L100.2620 2.0-7.7 X10 3/uL High Absolute Neut 8.1 LAB L100.2720 0.83-4.51 X10 3/ul Normal Absolute Lymph 1.98 Performed By: #### L100.0100 #### [facility] [address] [place], [address] COMPREHENSIVE METABOLIC Collected: 09/05/2017 Status: F Source: [facility] 4:59 PM [facility] [place] REPOSITORY TYPE CODE TESTS RESULT OUT OF RANGE REFERENCE UNITS LAB L501.0100 74-106 mg/dL Normal GLU 105 Result Comment: Fasting Glucose result from 100 to 125 mg/dL suggests IMPAIRED HOMEOSTASIS per A.D.A. criteria. Please note revised GLUCOSE reference range effective 2017. LAB L501.1000 7-18 mg/dL Normal BUN 15 LAB L501.1100 0.70-1.30 mg/dL Normal CREAT,SERUM 0.83 Result Comment: The validity of the calculated GFR AND GFRAA in patients over 70 years has not been determined. Clinical correlation is essential. LAB L501.1110 >60 mL/min Normal EST GFR 98 Result Comment: Non- GFR Calc LAB L501.1115 >60 mL/min Normal EST GFR - AA 119 Result Comment: GFR Calc LAB L501.1300 10-20 RATIO Normal BUN/CRE 18.0 LAB L501.1500 6.4-8.2 g/dL T Normal PROT 7.2 LAB L501.1800 3.2-5.0 g/dL Normal ALB 3.4 LAB L501.1950 2.2-4.2 g/dL Normal GLOB 3.8 LAB L501.2000 0.9-2.4 RATIO Normal A/G 0.9 LAB L501.2200 8.5-10.1 mg/dL CA Normal 8.6 LAB L501.4100 15-37 U/L Low AST 13 LAB L501.4305 45-117 U/L Normal ALK P 51 LAB L501.4405 16-61 U/L Normal ALT 28 LAB L501.4600 0.20-1.00 mg/dL T Normal BILI 0.40 LAB L501.5300 136-145 mmol/L NA Normal 137 LAB L501.5600 3.5-5.1 mmol/L K Normal 4.0 LAB L501.5900 98-107 mmol/L CL Normal 100 LAB L501.6100 21.0-32.0 mmol/L Normal CO2 27.0 LAB L501.6200 5-15 Normal GAP 10 Performed By: #### L500.4050, L500.4100 #### [facility] [address] [place], [place], [id number] LIPID PROFILE Collected: 09/05/2017 Status: F Source: [place] 4:59 PM [facility] [place] REPOSITORY TYPE CODE TESTS RESULT OUT OF RANGE REFERENCE UNITS LAB L501.4900 200 mg/dL Normal CHOL 169 Result Comment: <200 mg/dL Desirable 200-240 mg/dL Borderline >240 mg/dL High Risk LAB L501.5000 mg/dL Normal TRIG 67 Result Comment: The drugs N-Acetylcysteine and Metamizole may falsely depress this assay. Serum Triglycerides Reference Interval Normal <150 mg/dL Borderline high 150 - 199 mg/dL High 200 - 499 mg/dL Very High > or = 500 mg/dL LAB L501.6400 mg/dL Normal HDL 70 Result Comment: The drugs N-Acetylcysteine and Metamizole may falsely depress this assay. Reference Range HDL <40 mg/dL Low HDL Cholesterol HDL >or= 60 mg/dL High HDL Cholesterol LAB L501.6500 0-130 mg/dL Normal LDL 86 LAB L501.6600 5-40 mg/dL Normal VLDL 13 Performed By: #### L500.4050, L500.4100 #### [facility] [address] [place], [place], [id number] HEMOGLOBIN A1C Collected: 09/05/2017 Status: F Source: [place] 4:59 PM [facility] [place] REPOSITORY TYPE CODE TESTS RESULT OUT OF RANGE REFERENCE UNITS LAB L501.9985 4.2-6.3 % Normal HGB A1C 6.2 Performed By: #### L501.9985 #### [facility] [address] [place], [address] MICROALB:CREAT Collected: 09/05/2017 Status: F Source: [place] RATIO,RANDOM UR 4:59 PM [facility] [place] REPOSITORY TYPE CODE TESTS RESULT OUT OF RANGE REFERENCE UNITS LAB L501.1200 NO RANGE EST. mg/dL Normal UR CREAT 55.70 LAB L502.0500 NO RANGE EST. mg/L Normal 5.6 MICROALBUMIN ,UR LAB L502.0600 <30 mg/g CRE mg/g CRE Normal 10.1 MALB:CREAT Performed By: #### L502.0250 #### [facility] [address] [place], [address] BASIC METABOLIC Collected: 08/25/2017 Status: F Source: [place] PROFILE (BMP) 2:45 PM [facility] [place] REPOSITORY TYPE CODE TESTS RESULT OUT OF RANGE REFERENCE UNITS LAB L501.0100 74-106 mg/dL Normal GLU 98 Result Comment: Please note revised GLUCOSE reference range effective 2017. LAB L501.1000 7-18 mg/dL Normal BUN 10 LAB L501.1100 0.70-1.30 mg/dL Normal CREAT,SERUM 0.94 Result Comment: The validity of the calculated GFR AND GFRAA in patients over 70 years has not been determined. Clinical correlation is essential. LAB L501.1110 >60 mL/min Normal EST GFR 86 Result Comment: Non- GFR Calc LAB L501.1115 >60 mL/min Normal EST GFR - AA 104 Result Comment: GFR Calc LAB L501.1300 10-20 RATIO Normal BUN/CRE 10.6 LAB L501.2200 8.5-10.1 mg/dL CA Normal 8.6 LAB L501.5300 136-145 mmol/L NA Normal 137 LAB L501.5600 3.5-5.1 mmol/L K Normal 4.1 LAB L501.5900 98-107 mmol/L CL Normal 102 LAB L501.6100 21.0-32.0 mmol/L Normal CO2 29.0 LAB L501.6200 5-15 Normal GAP 6 Performed By: #### L500.2500, L500.3400, L500.4100 #### [facility] [address] [place], [place], [address] LIVER PROFILE Collected: 08/25/2017 Status: F Source: [place] 2:45 PM [facility] [place] REPOSITORY TYPE CODE TESTS RESULT OUT OF RANGE REFERENCE UNITS LAB L501.1500 6.4-8.2 g/dL Normal T PROT 7.3 LAB L501.1800 3.2-5.0 g/dL Low ALB 3.0 LAB L501.1950 2.2-4.2 g/dL High GLOB 4.3 LAB L501.4100 15-37 U/L Normal AST 20 LAB L501.4305 45-117 U/L Normal ALK P 53 LAB L501.4405 16-61 U/L Normal ALT 27 LAB L501.4600 0.20-1.00 mg/dL Normal T BILI 0.50 LAB L501.4700 0.00-0.30 mg/dL Normal D BILI 0.13 Performed By: #### L500.2500, L500.3400, L500.4100 #### [facility] [address] [place] [address], [address] LIPID PROFILE Collected: 08/25/2017 Status: F Source: [place] 2:45 PM [facility] [place] REPOSITORY TYPE CODE TESTS RESULT OUT OF RANGE REFERENCE UNITS LAB L501.4900 200 mg/dL Normal CHOL 145 Result Comment: <200 mg/dL Desirable 200-240 mg/dL Borderline >240 mg/dL High Risk LAB L501.5000 mg/dL Normal TRIG 111 Result Comment: The drugs N-Acetylcysteine and Metamizole may falsely depress this assay. Serum Triglycerides Reference Interval Normal <150 mg/dL Borderline high 150 - 199 mg/dL High 200 - 499 mg/dL Very High > or = 500 mg/dL LAB L501.6400 mg/dL Normal HDL 47 Result Comment: The drugs N-Acetylcysteine and Metamizole may falsely depress this assay. Reference Range HDL <40 mg/dL Low HDL Cholesterol HDL >or= 60 mg/dL High HDL Cholesterol LAB L501.6500 0-130 mg/dL Normal LDL 76 LAB L501.6600 5-40 mg/dL Normal VLDL 22 Performed By: #### L500.2500, L500.3400, L500.4100 #### [facility] [address] [place], [address] HISTORY AND PHYSICAL Observed: 08/17/2017 Status: F Source: [place] EXAM 9:25 AM [facility] REPOSITORY [facility] Medical Records Department [address] [place] [address] History and Physical 08/17/17 0914 MR#: [id number] Acct: [id number] Name: RIGOBERTO TAN Rep #: [id number] : 1950 66 From: Remigio Lares MD PCP: Adelaida Stephens DO Status: REG [facility] Location: [facility] Problem List (1) Abnormal stress test Status: Acute (2) Atherosclerotic heart disease of [place] coronary artery without angina pectoris Status: Chronic Qualifiers: [place] vs. transplanted heart: [place] heart Qualified Code(s): I25.10 - Atherosclerotic heart disease of [place] coronary artery without angina pectoris Comment: PTCA/RINA to Prox LAD 08/11/05 (3) Presence of stent in coronary artery Status: Chronic Comment: PTCA/RINA to Prox LAD 08/11/05 (4) Hyperlipidemia Status: Chronic Qualifiers: (5) Hypertension Status: Chronic Qualifiers: History and Physical Date of Admission: 08/17/17 Date: 08/17/2017 Precardiac catheterization history of present illness: Up-to-date This is a 66-year-old white male with a past medical history of underlying CAD status post LAD PCI who presents for evaluation of his underlying cardiovascular disease, shortness of breath/dyspnea with exertion, and an abnormal exercise tolerance test/imaging study. The patient has previously been diagnosed with CAD. Based upon previous cardiovascular noninvasive and invasive studies he was found to have angiographically significant LAD disease for which she underwent PTCA/stent. He states he has been having shortness of breath and dyspnea with exertion. He recently underwent noninvasive cardiovascular evaluation. He had a transthoracic echocardiogram performed. His left ventricle was noted to have left ventricular regional wall motion abnormalities with an LVEF of 60%. There was trivial MR and TR and mild WV. His estimated RV systolic pressure was 30 mmHg. He underwent a previous exercise tolerance test/imaging study on 08/02/2017. This was a combination exercise tolerance test and subsequent pharmacologic stress nuclear imaging study. His exercise tolerance test demonstrated he had a technically in adequate exercise tolerance test based upon percent predicted maximal heart rate being less than 85%. Thus he underwent a pharmacologic stress nuclear imaging study. His nuclear images demonstrated a discrepancy between pre-attenuation and post attenuation correction. The pre-attenuation correction raise concerns of possible previous myocardial injury/infarction involving portions of the inferior and inferior apical segments as well as findings compatible with associated stress-induced myocardial ischemia and portions of the mid to distal inferior and inferior apical segments with the post attenuation correction imaging suggesting stress- induced myocardial ischemia in the inferior apical segments. His gated LVEF reported at 72%. He was recommended for further evaluation with diagnostic cardiac catheterization. The procedure and risks were discussed with him. He was agreeable to this approach. He has previously denied ongoing chest discomfort orthopnea or PND, near syncope or syncope. He has attributed his symptoms to concerns of underlying COPD. For past medical history, family history, social history, please see previously dictated out the patient YUROK from 07/14/2017. Review of systems: Upon review of systems the patient admitted to shortness of breath/dyspnea with exertion as well as concerns of an underlying activity related dull chest discomfort. Physical examination: HEENT: Pupils equal round reactive to light and extraocular muscles are intact Lungs: Clear to auscultation bilaterally Cardiovascular: Regular rate and rhythm with a normal S1 and S2 Abdomen: Positive bowel sounds, soft, nontender, Extremities: No obvious peripheral pitting edema Laboratory studies: Outpatient ECG demonstrated sinus rhythm with left axis deviation and right bundle branch block pattern Transthoracic echocardiogram as noted above Exercise tolerance test as noted above Impression and plan: 1. Abnormal exercise tolerance test At the present time the patient does have an abnormal exercise tolerance test. This is concerning for his underlying CAD process. He will continue medical management and proceed with further evaluation with diagnostic cardiac catheterization as noted above. 2. CAD status post LAD PCI The patient will need to continue risk factor modification and medical management. Based on his symptoms and his concerning exercise tolerance test he will undergo further evaluation with diagnostic cardiac catheterization. 3. Hyperlipidemia The patient will continue risk factor modification medical management. 4. Hypertension The patient's blood pressures will be monitored. He will continue medical therapy as deemed appropriate. 5. COPD The patient does have underlying COPD. This may be a contributing factor to his oongoing symptoms, etc. However based on the aforementioned concerns he will continue evaluation care as noted above. The above was discussed with the patient. He was agreeable to this approach. This note was generated with XTWIP dictation software. It may contain incorrect words, spelling, and punctuation that were not noted in checking the note before signing. 08/17/17 0925 <Electronically signed by Remigio Lares MD> Date Remigio Lares MD Cosigner Signature: Date (if applicable) CC: Adelaida Stephens DO; Remigio Lares MD Signed OFFICE VISIT REPORT Observed: 08/15/2017 Status: F Source: [place] 5:[address] [place] [address] OFFICE VISIT Date of Service: MR#: [id number] Acct: [id number] Patient: RIGOBERTO TAN Rep #: [id number] : 1950 Provider: Sabra Joy Age/Sex: 66/M [place] [facility] [place] Signed Intake Intake Visit Reasons: Amb Documentation Allergies iodine Allergy (Verified 07/14/17 14:37) Rash, [...] PO QHS 06/28/13 [History Confirmed 07/14/17] Pantoprazole Sodium [Protonix] 40 mg PO BID 06/28/13 [History Confirmed 07/14/17] Ranolazine [Ranexa] 1,000 mg PO BID 06/28/13 [History Confirmed 07/14/17] Amlodipine [Norvasc] 5 mg PO DAILY 10/18/13 [History Confirmed 07/14/17] Nitroglycerin [Nitro-Dur] 0.6 mg TRANSDERM. DAILY 10/18/13 [History Confirmed 07/14/17] albuterol sulfate 2.5 mg/3 mL (0.083 %) solution for nebulization 1.25 mg INHALATION Q4H PRN 07/12/17 [History Confirmed 07/14/17] albuterol sulfate HFA 90 mcg/actuation aerosol inhaler 2 puff INHALATION Q4H PRN 07/12/17 [History Confirmed 07/14/17] azelastine 0.15 % (205.5 mcg) nasal spray 1 spray INTRANASAL BID 07/12/17 [History Confirmed 07/14/17] cyclobenzaprine 10 mg tablet 10 mg PO TID PRN 07/12/17 [History Confirmed 07/14/17] eszopiclone 3 mg tablet 3 mg PO QHS 07/12/17 [History Confirmed 07/14/17] hydrocodone 5 mg-acetaminophen 325 mg tablet 1 tab PO Q6H PRN 07/12/17 [History Confirmed 07/14/17] lorazepam 0.5 mg tablet 0.5 mg PO QDAY PRN tab 07/12/17 [History Confirmed 07/14/17] mirabegron ER 50 mg tablet,extended release 24 hr 50 mg PO QDAY 07/12/17 [History Confirmed 07/14/17] buspirone 10 mg tablet 30 mg PO BID tab 07/14/17 [History Confirmed 07/14/17] cholecalciferol (vitamin D3) 2,000 unit tablet 2,000 unit PO QDAY 07/14/17 [History Confirmed 07/14/17] fluticasone 200 mcg-vilanterol 25 mcg/dose powder for inhalation 1 inh INHALATION QDAY 07/14/17 [History Confirmed 07/14/17] lactobacillus combination no.8 3 billion cell capsule 3,000 mmu cells PO QDAY 07/14/17 [History Confirmed 07/14/17] multivitamin tablet 1 tab PO QDAY 07/14/17 [History Confirmed 07/14/17] rosuvastatin 40 mg tablet 40 mg PO QDAY 07/14/17 [History Confirmed 07/14/17] tamsulosin 0.4 mg capsule 0.4 mg PO DAILY cap 07/14/17 [History Confirmed 07/14/17] venlafaxine ER 150 mg capsule,extended release 24 hr 150 mg PO QHS 07/14/17 [History Confirmed 07/14/17] venlafaxine ER 75 mg capsule,extended release 24 hr 75 mg PO QAM cap 07/14/17 [History Confirmed 07/14/17] diphenhydramine 25 mg capsule 25 mg PO .COMPLEX PRN 08/08/17 [History] clopidogrel 75 mg tablet 75 mg PO .COMPLEX #30 tab 08/11/17 [Rx] prednisone 20 mg tablet 20 mg PO .COMPLEX #9 tab 08/11/17 [Rx] ranitidine 150 mg tablet 150 mg PO .COMPLEX #2 tab 08/11/17 [Rx] Assessment AND Plan Orders Orders: Nursing Note Patient in for cardiac cath teaching and EKG. Cath booklet reviewed with verbal instructions given. Reviewed IVP Dye allergy protocol with prescriptions sent to patient pharmacy. Patient instructed to start plavix with prescription sent to pharmacy. Lab and chest xray orders given. Patient questions answered. 08/15/17 1747 <Electronically signed by Remigio Lares MD> Date Remigio Lares MD Cosigner Signature: Date (if applicable) CC: PROTHROMBIN TIME W/INR Collected: 08/11/2017 Status: F Source: [place] 3:31 PM [facility] [place] REPOSITORY TYPE CODE TESTS RESULT OUT OF RANGE REFERENCE UNITS LAB L300.4150 11.7-14.9 SECONDS Normal PROTIME 12.5 LAB L300.4200 Normal INR 0.9 Performed By: #### L300.3900, L300.4310, L100.0500, L500.2500 #### [facility] [address] [place], [address] PARTIAL THROMBOPLAST Collected: 08/11/2017 Status: F Source: [place] TIME 3:31 PM [facility] [place] REPOSITORY TYPE CODE TESTS RESULT OUT OF RANGE REFERENCE UNITS LAB L300.4310 24.1-36.2 Seconds Normal PTT 26.1 Performed By: #### L300.3900, L300.4310, L100.0500, L500.2500 #### [facility] [address] [place], [address] CBC-COMPLETE BLOOD CNT Collected: 08/11/2017 Status: F Source: [place] NO DIFF 3:31 PM [facility] [place] REPOSITORY TYPE CODE TESTS RESULT OUT OF RANGE REFERENCE UNITS LAB L100.1000 4.4-11.0 K/mm3 Normal WBC 9.6 LAB L100.1200 4.6-6.2 M/mm3 Low RBC 4.17 LAB L100.1300 13.0-16.5 g/dl Low HGB 12.8 LAB L100.1400 40-54 % Low HCT 38.6 LAB L100.1500 80-94 fL Normal MCV 92.6 LAB L100.1600 27.0-32.0 pg Normal MCH 30.7 LAB L100.1700 32-36 g/gl Normal MCHC 33.2 LAB L100.1810 11.6-14.6 % Normal RDW CV 14.0 LAB L100.1820 35.1-43.9 fl High RDW SD 46.0 LAB L100.1900 150-450 K/mm3 Normal PLT 245 LAB L100.2000 6.2-12.0 fl Normal MPV 8.7 Performed By: #### L300.3900, L300.4310, L100.0500, L500.2500 #### [facility] [address] [facility] [place], [place], [address] BASIC METABOLIC Collected: 08/11/2017 Status: F Source: [place] PROFILE (BMP) 3:31 PM [facility] [place] REPOSITORY TYPE CODE TESTS RESULT OUT OF RANGE REFERENCE UNITS LAB L501.0100 74-106 mg/dL High GLU 116 Result Comment: Fasting Glucose result from 100 to 125 mg/dL suggests IMPAIRED HOMEOSTASIS per A.D.A. criteria. Please note revised GLUCOSE reference range effective 2017. LAB L501.1000 7-18 mg/dL Normal BUN 17 LAB L501.1100 0.70-1.30 mg/dL Normal CREAT,SERUM 0.79 Result Comment: The validity of the calculated GFR AND GFRAA in patients over 70 years has not been determined. Clinical correlation is essential. LAB L501.1110 >60 mL/min Normal EST GFR 105 Result Comment: Non- GFR Calc LAB L501.1115 >60 mL/min Normal EST GFR - AA 127 Result Comment: GFR Calc LAB L501.1300 10-20 RATIO High BUN/CRE 21.5 LAB L501.2200 8.5-10.1 mg/dL CA Normal 8.5 LAB L501.5300 136-145 mmol/L Low NA 135 LAB L501.5600 3.5-5.1 mmol/L K Normal 4.3 LAB L501.5900 98-107 mmol/L CL Normal 104 LAB L501.6100 21.0-32.0 mmol/L Normal CO2 27.0 LAB L501.6200 5-15 Low GAP 4 Performed By: #### L300.3900, L300.4310, L100.0500, L500.2500 #### [facility] [address] [facility] [place], [address] CHEST PA AND LATERAL Observed: 08/11/2017 Status: F Source: [place] 3:03 PM [facility] [place] REPOSITORY [facility] [address] [place] [address] Chest PA and Lateral MR#: [id number] Acct: [id number] Name: RIGOBERTO TAN Rep #: [id number] : 1950 M 66 From: Will Guerrero MD PCP: Adelaida Stephens DO Status: REG CLI Study: Chest PA and Lateral Date of Exam: 08/11/17 Exam# [id number] Ordering Dr: Remigio Lares MD STUDY: X-RAY CHEST REASON FOR EXAM: Male, 66 years old. Heart catheterization 08/17/2017. Shortness of breath. TECHNIQUE: PA and lateral chest. COMPARISON: 02/10/2017. FINDINGS: The lungs are clear and expanded. Normal cardiomediastinal silhouette, deborah and pleural margins. No acute osseous or upper abdominal process. RAD/Chest PA and Lateral IMPRESSION: No acute cardiopulmonary process. Electronically Signed: Will Yolanda, at 15:48 EDT Tel , Service support , CC: Adelaida Stephens DO; Remigio Lares MD Concrete Worker: Signed Observed: 08/08/2017 Status: F Source: [place] CULTURE, SPUTUM 12:00 AM [facility] [place] REPOSITORY Gram Stain Acceptable Specimen? Yes (<25 Epithelial cells per/lpf) Gram Stain 1+ White Blood Cells Rare Epithelial cells 4+ Gram positive rods 1+ Gram negative rods Resp. Culture Mixed normal respiratory marisa. No Haemophilus, Streptococcus pneumoniae, beta-hemolytic Streptococcus or Staphylococcus aureus isolated. Performed By: #### M100.0800 #### [facility] [place], [address] Observed: 08/08/2017 Status: F Source: [place] NICOLAS MARIA FERNANDA 8482 12:00 AM [facility] [place] REPOSITORY Cu,[id number] TESTING PERFORMED AT [facility]. ORIGINAL REPORT ON FILE IN LAB CONTAINS ADDITIONAL TEST SITE INFORMATION. ORGANISM 1: Nusrat albicans Amount Growth Growth ORGANISM 2: Penicillium species Amount Growth Growth ORGANISM 3: Aspergillus species Amount Growth Growth Performed By: #### M600.1999 #### [facility] [address] [place], [address] STRESS REPORT Observed: 08/02/2017 Status: F Source: [place] 4:55 PM [facility] [place] REPOSITORY [facility] [address] [place] [address] MR#: [id number] Acct: [id number] Name: RIGOBERTO TAN Rep #: [id number] : 1950 66 From: Remigio Lares MD Primary Care: Aedlaida Stephens DO Status: REG CLI Ordering Dr: Jocelyne: Mery Fernando Stress Test Report Date: 02/09/2018 Procedure: Exercise tolerance test/imaging study Indications: Shortness of breath/dyspnea; CAD; status [...] peak recovery. The functional capacity was considered decreased. There was no complaint of chest discomfort during exercise or recovery. The examination was discontinued secondary to dyspnea and leg discomfort. Impression: 1. Technically inadequate (percent predicted maximal heart rate less than 85%) exercise [...] right bundle branch block pattern. The peak pharmacologic ECG demonstrated no obvious ECG changes. There were no cardiac dysrhythmias pretest, during pharmacologic infusion, or recovery. There was no complaint of chest discomfort during pharmacologic infusion or recovery. The examination was discontinued secondary to completion of protocol. Impression: 1. Pharmacologic (Regadenoson) evaluation 2. Peak pharmacologic ECG with no obvious ECG changes. 3. There were no cardiac dysrhythmias pretest, during pharmacologic infusion, or recovery 4. Nuclear images pending Myocardial perfusion imaging study: Technique: The patient was injected with 14.9 [...] 44.9 millicuries of technetium 99m Cardiolite and subsequently stress SPECT Cardiolite nuclear imaging was obtained in the horizontal long, vertical long, and short axis views. A gated Cardiolite study at peak stress was obtained. Interpretation: Rest and stress SPECT Cardiolite nuclear imaging status post realignment, normalization, and attenuation correction demonstrates areas of diminished myocardial perfusion/tracer uptake in portions of the basal inferoseptal and basal inferior segments extending to the mid inferior segments without significant change between rest and stress, which, status post stress appears to be more prominent in the mid towards distal inferior/inferior apical segments. Status post attenuation correction there appears to be evidence of extra cardiac/gastrointestinal tracer uptake near the inferior segments with otherwise relative uniform tracer uptake at rest and stress with the exception of status post stress and area of diminished tracer uptake in the inferior apical segments. There is end systolic thickening and brightening. The gated Cardiolite study demonstrates myocardial thickening and inward wall motion. The reported LVEF is 72 %. Impression: 1. Rest and stress SPECT Cardiolite nuclear imaging demonstrate, between pre-attenuation and post attenuation correction, a discrepancy with respect to the myocardial perfusion/tracer uptake in portions of the inferior and inferior apical segments at rest and status post stress being more prominent on the pre-attenuation correction images suggesting a potential area of previous myocardial injury/infarction with post stress images appearing compatible with associated stress-induced myocardial ischemia and portions of the mid to distal inferior and inferoapical segments versus the post attenuation correction imaging suggesting a post stress imaging appearing potentially compatible with stress-induced myocardial ischemia in the inferior apical segments. Note, shifting soft tissue/diaphragmatic attenuation cannot necessarily be excluded. 2. The gated Cardiolite study reports an LVEF of 72 %. This note was generated with [employer] software. It may contain incorrect words, spelling, and punctuation that were not noted in checking the note before signing. 08/02/17 1655 <Electronically signed by Remigio Lares MD> Date Remigio Lares MD CC: Adelaida Stephens DO; Remigio Lares MD Date Dictated: 08/02/171638 Date Transcribed: 08/02/171638 Concrete Worker: PM Signed ECHOCARDIOGRAM COMPLETE Observed: 08/02/2017 Status: F Source: [place] 1:36 PM [facility] [place] REPOSITORY [facility] [address] [place] [address] Echo Complete W/ Contrast 08/02/17 1020 MR#: [id number] Acct: [id number] Name: RIGOBERTO TAN Rep #: [id number] : 1950 66 From: Remigio Lares MD Attending Dr: Remigio Lares MD Status: REG CLI Ordering Dr: Remigio Lares MD Date: 08/02/17 Location: [facility] Sex: M C Admitted: Version 2 Reason For Study: CAD Procedure This was a 2D Doppler, Color Flow transthoracic echocardiogram. Contrast injection was performed. The study was technically difficult. Exam performed in department. Left Ventricle Normal LV size. Segmental dysfunction with preserved ejection fraction (see wall motion). The estimated ejection fraction is 60 %. Normal diastology for age. Infero-Basal: Hypokinetic. Right Ventricle Normal RV size. Normal systolic function. Atria Normal left atrium. Normal right atrium. No doppler evidence for ASD. Mitral Valve There is no mitral annular calcification. Normal mitral valve. Trivial mitral valve insufficiency. Tricuspid Valve Normal tricuspid valve. Trivial tricuspid valve insufficiency. Right ventricular systolic pressure estimated to be 30 mmHg. Aortic Valve Trisinus/trileaflet aortic valve. Normal aortic valve. Pulmonic Valve The pulmonic valve is not well visualized. Mild (1+) pulmonic valve insufficiency. Great Vessels Normal sized aortic root. Pericardium/Pleural No pericardial effusion. Medication Diluted definity 6ml given slow IV push to enhance endocardial definition. MMode/2D Measurements AND Calculations LVIDd: 4.5 cm IVSd: 1.00 cm Ao root diam: 3.7 cm LVIDs: 3.2 cm LVPWd: 1.2 cm FS: 29.8 % LAV(MOD-sp4): 51.3 ml EDV(MOD-sp4): 111.3 ml EDV(MOD-sp2): 96.6 ml ESV(MOD-sp4): 36.0 ml EF(MOD-sp2): 72.0 % EF(MOD-sp4): 67.6 % SV(MOD-sp4): 75.2 ml SV(MOD-sp2): 69.5 ml LA A4 area: 19.2 cm2 RA A4 area: 20.2 cm2 Doppler Measurements AND Calculations MV E max [place]: 68.0 cm/sec Lat Peak E' [place]: 10.7 cm/sec Med Peak E' [place]: 8.8 cm/sec MV A max [place]: 53.3 cm/sec E/E' lat: 6.3 E/E' med: 7.7 MV E/A: 1.3 Ao V2 max: 125.6 cm/sec LV V1 max: 116.7 cm/sec PA V2 max: 97.9 cm/sec Ao max P.3 mmHg LV V1 max P.4 mmHg TR max [place]: 261.3 cm/sec TR max P.5 mmHg Interpretation Summary The study was technically difficult. Contrast injection was performed. Segmental dysfunction with preserved ejection fraction (see wall motion). The estimated ejection fraction is 60 %. Trivial mitral valve insufficiency. Trivial tricuspid valve insufficiency. Mild (1+) pulmonic valve insufficiency. Right ventricular systolic pressure estimated to be 30 mmHg. Normal diastology for age. Ordering Physician: Remigio Lares Referring Physician: ADELAIDA STEPHENS Performed By: Barbara Castrejon, YUDELKACS, RVT 08/02/17 1335 Date Remigio Lares MD CC: Adelaida Flakito ; Remigio Lares MD Date Dictated: 08/02/17 1020 Date Transcribed: 08/02/17 1335 Concrete Worker: Signed CARDIOLOGY VISIT Observed: 07/14/2017 Status: F Source: [place] REPORT 3:58 PM [facility] [place] REPOSITORY [facility] [address] [place] [address] OFFICE VISIT Date of Service: 07/14/17 MR#: [id number] Acct: [id number] Name: RIGOBERTO TAN Rep #: [id number] : 1950 Provider: Remigio Lares MD Age/Sex: 66/M Location[place] [facility] [place] Status: Signed HPI HPI Details: RIGOBERTO TAN, is a 66 M who presents to the office today for outpatient cardiovascular consultation for history of underlying CAD status post LAD PCI. He has been cared for in the past both by the [facility] members (Drs. Griggs and Edwin), at [facility] by Dr. Rosales, and at [facility] by Dr. Maury Veliz. He states he lost saw Dr. Veliz approximately 1 year ago. He is now relocating his care locally. He has a history of underlying CAD. He underwent a previous diagnostic cardiac catheterization on 08/11/2005 at [facility]. At that point in time he was evaluated and found to have the left ventricle to be normal with an LVEF of 55%, the left main coronary artery was patent, the LAD had a proximal 90% stenosis, the LCx was considered free of disease, the RCA was considered to have mild luminal irregularities. He subsequently underwent PTCA/stenting of the LAD distribution. It appears that in September 2005 he underwent reevaluation at [facility]. At that time he had an intravascular ultrasound procedure of the LAD that showed no significant stenosis. In April 2008, at [facility], he had a repeat diagnostic cardiac catheterization. At that time the left ventricle was thought to be normal with an LVEF of 60%. The left main coronary artery was patent. The LAD appeared to be patent. The stented area had no high-grade stenosis. Status post a stented area there was a 60-70% stenosis. The LCx and the RCA had minimal luminal irregularities. He apparently was transferred to [facility] for further evaluation and care. The results are unknown at this time. He believes he may have received a second PCI/stenting procedure. The procedure report is unavailable for review. He states he has not been having any ongoing chest discomfort. His main concern is been shortness of breath and dyspnea with exertion. He has been attributing this to his underlying COPD and recurrent pneumonia. He has not had any other additional cardiovascular evaluation. He denies any ongoing palpitations or rapid rates. There has been no near syncope or syncope. He had an ECG today. He was noted to be in sinus rhythm with a left axis deviation and a right bundle branch block pattern. It appears this is not necessarily a new pattern for him based on previous ECGs available for review. He believes he was on other medications in the past. Based on other notes at one point time he was on a beta-alex and an LYNDSEY inhibitor. He believes his former folder machine remove these medications from his medication list. He does not recall why at this time. Intake Vital Signs07/14/17 Height 5 ft 10 in 07/14/17 Weight: 270 lb 07/14/17 Body Mass Index (BMI) 38.7 07/14/17 Blood Pressure 132/70 Intake Visit Reasons: CAD/Ref. Dr. Stephens Allergies iodine Allergy (Verified 07/14/17 14:37) Rash, [...] PO QHS 06/28/13 [History Confirmed 07/14/17] Pantoprazole Sodium [Protonix] 40 mg PO BID 06/28/13 [History Confirmed 07/14/17] Ranolazine [Ranexa] 1,000 mg PO BID 06/28/13 [History Confirmed 07/14/17] Amlodipine [Norvasc] 5 mg PO DAILY 10/18/13 [History Confirmed 07/14/17] Nitroglycerin [Nitro-Dur] 0.6 mg TRANSDERM. DAILY 10/18/13 [History Confirmed 07/14/17] albuterol sulfate 2.5 mg/3 mL (0.083 %) solution for nebulization 1.25 mg INHALATION Q4H PRN 07/12/17 [History Confirmed 07/14/17] albuterol sulfate HFA 90 mcg/actuation aerosol inhaler 2 puff INHALATION Q4H PRN 07/12/17 [History Confirmed 07/14/17] azelastine 0.15 % (205.5 mcg) nasal spray 1 spray INTRANASAL BID 07/12/17 [History Confirmed 07/14/17] cyclobenzaprine 10 mg tablet 10 mg PO TID PRN 07/12/17 [History Confirmed 07/14/17] eszopiclone 3 mg tablet 3 mg PO QHS 07/12/17 [History Confirmed 07/14/17] hydrocodone 5 mg-acetaminophen 325 mg tablet 1 tab PO Q6H PRN 07/12/17 [History Confirmed 07/14/17] lorazepam 0.5 mg tablet 0.5 mg PO QDAY PRN tab 07/12/17 [History Confirmed 07/14/17] mirabegron ER 50 mg tablet,extended release 24 hr 50 mg PO QDAY 07/12/17 [History Confirmed 07/14/17] buspirone 10 mg tablet 30 mg PO BID tab 07/14/17 [History Confirmed 07/14/17] cholecalciferol (vitamin D3) 2,000 unit tablet 2,000 unit PO QDAY 07/14/17 [History Confirmed 07/14/17] fluticasone 200 mcg-vilanterol 25 mcg/dose powder for inhalation 1 inh INHALATION QDAY 07/14/17 [History Confirmed 07/14/17] lactobacillus combination no.8 3 billion cell capsule 3,000 mmu cells PO QDAY 07/14/17 [History Confirmed 07/14/17] levofloxacin 500 mg tablet 500 mg PO QDAY tab 07/14/17 [History Confirmed 07/14/17] multivitamin tablet 1 tab PO QDAY 07/14/17 [History Confirmed 07/14/17] prednisone 10 mg tablet 10 mg PO .COMPLEX 07/14/17 [History Confirmed 07/14/17] rosuvastatin 40 mg tablet 40 mg PO QDAY 07/14/17 [History Confirmed 07/14/17] tamsulosin 0.4 mg capsule 0.4 mg PO DAILY cap 07/14/17 [History Confirmed 07/14/17] venlafaxine ER 150 mg capsule,extended release 24 hr 150 mg PO QHS 07/14/17 [History Confirmed 07/14/17] venlafaxine ER 75 mg capsule,extended release 24 hr 75 mg PO QAM cap 07/14/17 [History Confirmed 07/14/17] [facility] Medical History Presence of stent in coronary artery (Chronic 08/11/05) Hyperlipidemia (Chronic) Hypertension (Chronic) Prinzmetal angina (Acute) Atherosclerotic heart disease of [place] coronary artery without angina pectoris (Chronic) Anxiety (Chronic) Asthma (Chronic) BPH (benign prostatic hyperplasia) (Chronic) Bronchiectasis (Chronic) Depression (Chronic) GERD (gastroesophageal reflux disease) (Chronic) URIEL (obstructive sleep apnea) (Chronic) Surgical History Postsurgical percutaneous transluminal coronary angioplasty (PTCA) status (Chronic) History of carpal tunnel surgery (Resolved) History of lithotripsy (Resolved) History of parathyroid surgery (Resolved) History of rotator cuff surgery (Resolved) History of tonsillectomy (Resolved) Family History Father CAD (coronary artery disease) CVA (cerebral vascular accident) Hypertension Social History Smoking Status: Former smoker alcohol intake: current substance use type: does not use ROS Const Const: Negative for fatigue, weakness, weight gain, weight loss, frequent falls or excessive sweating Eyes Eyes: Negative for change in vision, blurry vision or transient loss of vision ENT ENT: Positive for balance problems (alot of problem with balance); negative for dizziness Cardio Chest Pain: Yes Character: dull Onset: other (stress), at rest Location: left chest, mid sternal Duration: minutes Exacerbation: activity Palpitations: No Edema: None Muscle aches with walking: None Additional Details: Experiences CP all of the time with radiation to neck and left shoulder. Resp Respiratory: Positive for SOB with activity (increased) and wheezing; negative for SOB at rest Additional Details: New DX brochiecstasis, currently on ATB's for pneumonia. Patient follows with Dr. Alonso GI GI: Negative vomiting or vomiting blood/hematemesis : Negative for hematuria Musc Musc: Positive for balance problems (alot of problem with balance), muscle aches/ myalgia (lower back pain) and muscle weakness (bilat LE); negative for joint pain Skin Skin: Negative non-healing lesions or rash Neuro Neuro: Negative for weakness, blurry vision, dizziness, lightheadedness, frequent falls or orthostatic symptoms Compa Hematologic/Lymphatic: Negative for easy bleeding Endo Endo: Negative for fatigue or excessive sweating Psych Psych: Negative for anxiety or depression Allergy Allergy/Immunology: Negative for hives, Negative for rash Cardiology Exam Const Appearance: cooperative, comfortable, well developed and well groomed Nutritional Appearance: obese Orientation: alert, awake and oriented [...] sounds present Neuro General: alert, awake, oriented x3, moves all extremities, no focal sensory deficit and no focal motor deficits Skin Skin: ecchymosis (Scattered) Extremities Pulses: Normal: Right Radial Pulse, Left Radial Pulse Lower Extremity Edema: None: Bilateral Psych Psychological: normal affect Assessment AND Plan 1. Atherosclerosis of holy cross coronary artery of holy cross heart without angina pectoris I25.10 PTCA/RINA to Prox LAD 08/11/05 Plan The patient presents for establishment of outpatient cardiovascular care. At the present time he is without symptoms of acute coronary syndrome, etc. He will continue risk factor modification and medical management. However based on his concerns of shortness of breath and dyspnea, which may be related to his underlying COPD process and recurrent pneumonia, he will be further evaluated from a cardiac standpoint. This will include a follow-up echocardiogram to reassess his left ventricular wall motion and systolic function as well as an exercise tolerance test to evaluate his coronary physiology. Depending upon the findings he may need repeat diagnostic cardiac catheterization. Orders Orders: 2. Presence of stent in coronary artery Z95.5 PTCA/RINA to Prox LAD 08/11/05 Plan He does have a history of previous PCI. The results available are as noted above. There may be more diagnostic studies/intervention reports that are unavailable for review at this time. Orders Orders: 3. Hyperlipidemia, unspecified hyperlipidemia type E78.5 Plan A copy of his lipid profile would be appreciated for continuity of care. 4. Essential hypertension I10 Plan His blood pressure appears to be reasonably well-controlled. He will continue medical management. Orders Orders: 5. COPD (chronic obstructive pulmonary disease) J44.9 Plan He continues to follow with Dr. Alonso for his COPD and pneumonia. Plan Detail Additional Comments The above was discussed with the [...] reviewing the office note prior to saving. Follow Up 6 Months (PFM) Coding Level of Care Code Off vis,new,level 4 Diagnoses Atherosclerosis of holy cross coronary artery of holy cross heart without angina pectoris I25.10 [place] vs. transplanted heart: holy cross heart Presence of stent in coronary artery Z95.5 Hyperlipidemia, unspecified hyperlipidemia type E78.5 Hyperlipidemia type: unspecified Essential hypertension I10 Hypertension type: essential hypertension COPD (chronic obstructive pulmonary disease) J44.9 Coding Level of Care Code Off vis,new,level 4 Diagnoses Atherosclerosis of holy cross coronary artery of holy cross heart without angina pectoris I25.10 [place] vs. transplanted heart: holy cross heart Presence of stent in coronary artery Z95.5 Hyperlipidemia, unspecified hyperlipidemia type E78.5 Hyperlipidemia type: unspecified Essential hypertension I10 Hypertension type: essential hypertension COPD (chronic obstructive pulmonary disease) J44.9 07/14/17 1558 <Electronically signed by Remigio Lares MD> Date Remigio Lares MD Cosigner Signature: Date (if applicable) CC: Adelaida Stephens DO 12 LEAD EKG PERFORMED Observed: 07/14/2017 Status: F Source: [place] [facility] 2:36 PM [facility] REPOSITORY [facility] [address] [place] [address] 12 Lead EKG performed by [facility] 07/14/171435 MR#: [id number] Acct: [id number] Name: RIGOBERTO TAN Brandon Rep #: [id number] : 1950 66 From: Remigio Lares MD Attending Dr: Remigio Lares MD Status: DEP AMB Ordering Dr: Remigio Lares MD Date: 07/14/17 [place] [facility] [place]: M C Admitted: [facility]/12 Lead EKG performed by [facility] ECG Report Interpretation Sinus Rhythm Right bundle branch block. ABNORMAL Electronically signed on 07/14/2017 at 17:15 by Remigio Lares 07/14/17 1717 Date Remigio Lares MD CC: Adelaida Stephens DO Date Dictated: 07/14/171435 Date Transcribed: 07/14/171435 Concrete Worker: PM Signed TXT - BLOOD FLOW Observed: 07/04/2017 Status: F Source: SHAR SCREENING 10:22 PM [facility] REPOSITORY [facility] [address] [place] [address] 07/04/17 0840 MR#: [id number] Acct: [id number] Name: RIGOBERTO TAN Rep #: [id number] : 1950 66 From: Jung Garcia MD Attending Dr: Adelaida Stephens DO Status: REG REF Ordering Dr: Date: 07/04/17 Location: [facility] Sex: M C Admitted: Reason For Study: Blood Flow Screening Carotid Duplex Ultrasound Abdominal Aorta The right maximum ICA velocity is 57/21 cm/s. The maximal outside diameter of the proximal The right ECA velocity is less than 125 cm/s. aorta measures 1.82cm x 1.96 cm in the cross- There is no plaque [...] The heart rhythm is regular. The right blood pressure is 132/80. The left blood pressure is 120/76. 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 RECOMMEND FOLLOW-UP WITH YOUR DOCTOR. Normal aortic ultrasound exam. The ankle/brachial index is normal (1.0 or greater). Ordering Physician: Adelaida Stephens Referring Physician: Adelaida Stephens Performed By: Kayla Kelley, MORE, RVT 07/04/17 2222 Date Jung Garcia MD CC: Adelaida Stephens DO Date Dictated: 07/04/17839 Date Transcribed: 07/04/172221 Concrete Worker: Signed Observed: 06/10/2017 Status: F Source: [place] CULTURE, [place] 12:00 PM [facility] REPOSITORY Gram Stain Acceptable Specimen? Yes (<25 Epithelial cells per/lpf) Gram Stain 1+ White Blood Cells Rare Epithelial cells 3+ Gram positive cocci Resp. Culture Mixed normal respiratory marisa. No Haemophilus, Streptococcus pneumoniae, beta-hemolytic Streptococcus or Staphylococcus aureus isolated. Performed By: #### M100.0800 #### [facility] [address] [facility], [address] L/S SPINE MIN 4 Observed: 06/06/2017 Status: F Source: [place] VIEWS 10:57 AM [facility] REPOSITORY [facility] Imaging Services [address] [place] [address] L/S Spine Min 4 Views MR#: [id number] Acct: [id number] Name: RIGOBERTO TAN Rep #: [id number] : 1950 M 66 From: Rafael Manley DO PCP: Adelaida Stephens DO Status: REG CLI Study: L/S Spine Min 4 Views Date of Exam: 06/06/17 Exam# [id number] Ordering Dr: Adelaida Stephens DO STUDY: X-RAY - LUMBAR SPINE REASON FOR EXAM: Male, 66 years old. Radiculopathy. Pain in the left leg. TECHNIQUE: 4 view(s) of the lumbar spine were obtained. COMPARISON: Lumbar spine, April 11, 2015. FINDINGS: Normal lumbar lordosis. There is a mild dextroscoliosis unchanged from prior study. There is a normal alignment of the vertebrae. Normal vertebral bodies and endplates. There is multi-level degenerative disc disease with multi-level disc space narrowing. This is most marked at L2-3 and L5-S1. This appears unchanged from previous examination There is no evidence of acute fracture or loss of vertebral axial height. There is degenerative disc disease without demonstrated spondylolysis of the pars interarticulares. There is atherosclerotic calcification of the abdominal aorta without a demonstrated aneurysm. RAD/L/S Spine Min 4 Views IMPRESSION: Stable degenerative changes on the lumbar spine. Electronically Signed: Rafael Manley DO at 18:01 EDT Tel [phone], Service support , CC: Adelaida Stephens DO Concrete Worker: Signed Observed: 04/21/2017 Status: F Source: [place] CULTURE, [place] 12:00 AM [facility] REPOSITORY Gram Stain Acceptable Specimen? Yes (<25 Epithelial cells per/lpf) Gram Stain 4+ White Blood Cells No Epithelial cells 3+ Gram positive cocci Resp. Culture PURE CULTURE ORGANISM 1: Staphylococcus aureus Amount Growth 3+ Staphylococcus aureus: REACTION Benzylpenicillin NF <=0.03 R Cefoxitin *NF - Clindamycin $$ <=0.25 S Inducable Clindamycin Resistan - Erythromycin $ <=0.25 S Gentamicin $ <=0.5 S Levofloxacin $ >=8 R Linezolid $$$$ 4 S Moxifloxicin *NF 4 I Oxacillin NF <=0.25 S Tigecycline $$$$ <=0.12 S Rifampin $$ <=0.5 S Tetracycline NF <=1 S Trimethoprim/Sulfametho $ <=10 S Vancomycin $ <=0.5 S (NF) indicates non-formulary drug at [facility]. Approval by Infectious Disease Specialist required before non-formulary drugs may be ordered and/or dispensed. * CLSI guidelines does not recommend testing of cephalosporins. This interpretation is deduced from Beta-lactam/penicillin results. Performed By: #### M100.0800 #### [facility] [address] [place], [address] ALLERGIES ALLERGIES DATE TYPE / NAME / CODE REACTION SEVERITY SOURCE CODE 01/10/2018 Drug pseudoephedrine mood changes Unknown [place] Allergy/41 HCl/[id number](RXNORM Community [id number]([facility]) Repository 01/10/2018 Drug triprolidine mood changes Unknown [place] Allergy/41 HCl/[id number](RXNORM Community 3650089([facility]) Repository 01/10/2018 Drug Penicillins/[id number] Rash Unknown [place] Allergy/41 6(RXNORM) Community 9855539([facility]) Repository 01/10/2018 Drug iodine/[id number](RXN Rash, upset Unknown [place] Allergy/41 ORM) stomach, Community 0654820([facility]) swelling Repository ENCOUNTERS ENCOUNTERS ADMIT/DISCHARGE ACCOUNT ADMITTING ENCOUNTER LOCATION SOURCE NUMBER CLASS 03/10/2018 [id number] Ambulatory [place] 7 [facility] ing:HPRAD Repository 03/10/2018 [id number] Ambulatory Building:[facility] Practices Repository 01/10/2018/ [id number] Ambulatory BMSBuilding:B [facility] 8 4 [facility] Repository 12/05/2017 [id number] Ambulatory [place] [facility] 2 [facility] ing:LAB Repository 10/08/2017 [id number] Ambulatory [place] 8 [facility] ing:LAB Repository 09/26/2017 [id number] Ambulatory [place] 3 [facility] ing:MRI Repository 09/23/2017 [id number] Ambulatory [place] 0 [facility] ing:MTLAB Repository 09/16/2017 [id number] Ambulatory [place] 2 [facility] Hospital ing:CVS Repository 09/09/2017 [id number] Ambulatory [place] 0 [facility] ing:LABSPEC Repository 09/05/2017 [id number] Ambulatory [facility] 6 [facility] Hospital ing:LAB Repository 08/25/2017 [id number] Ambulatory [place] 2 [facility] Hospital ing:LAB Repository 08/17/2017/ [id number] Ambulatory [place] 8 0 [facility] ing:CLSP Repository 08/17/2017 [id number] Ambulatory BMSBuilding:B [place] 1 [facility] Repository 08/11/2017 [id number] Ambulatory [place] 3 [facility] Hospital ing:RAD Repository 08/11/2017 [id number] Ambulatory BMSBuilding:B [facility] 9 [facility] Repository 08/11/2017/ [id number] Ambulatory BMSBuilding:B [place] 8 5 [facility] Repository 08/11/2017 [id number] Ambulatory BMSBuilding:B [facility] 0 [facility] Repository 08/08/2017 [id number] Ambulatory [place] 5 [facility] Hospital ing:LABSPEC Repository 08/02/2017 [id number] Ambulatory [place] 5 [facility] Hospital ing:CVS Repository 08/02/2017 [id number] Ambulatory BMSBuilding:W [place] 8 [facility] Repository 07/14/2017/ [id number] Ambulatory BMSBuilding:B [place] 8 2 [facility] Repository 07/12/2017 [id number] Ambulatory BMSBuilding:B [place] 7 [facility] Repository 07/12/2017 [id number] Ambulatory BMSBuilding:B [facility] 5 [facility] Repository 07/04/2017 [id number] Ambulatory [place] [facility] 8 [facility] Hospital ing:CVS Repository 06/10/2017 [id number] Ambulatory [place] 1 [facility] Hospital ing:LABSPEC Repository 06/06/2017 [id number] Ambulatory [facility] 2 [facility] ing[facility]HPRAD Repository 04/21/2017 [id number] Ambulatory [place] [facility] 9 [facility] Hospital ing:LABSPEC Repository PAYERS PAYERS ENCOUNTER GUARANTOR PAYER SUBSCRIBER SOURCE 03/10/2018 RIGOBERTO Taylor Primary RIGOBERTO [id number] Insurance:MEDICARE RILEYDOB: [place] PART A [facility] [id number] Hospital [address]Oke: (330) Number: Repository [phone] (HP) [id number] Date:2018-03-10 03/10/2018 Secondary RIGOBERTO E [place] Insurance:Primetime RILEYDOB: Community Choices [facility] [id number] [facility] SupplemePolicy Repository Number: [id number] e Date:9587-58-78AM [address], [place] [address]XV: 03/10/2018 Tertiary NOT GIVENUNK [place] Insurance:SELF PAY [facility] Number: Effective Repository Date:2018-03-10 03/10/2018 RIGOBERTO E Primary RIGOBERTO E OHIP Practices RILEYDOB: Insurance:MedicarePol RILEYDOB: Repository W icy Number: [id number] [facility], [id number] [address] [place] [address]Jlb: Date:7573-46-90Btrd [place], [place] Name:[facility] [address]Qzp: ([phone]) ()Tel: [phone] [id number], [place] [phone] (HP) [phone] () 723[address]WS: 03/10/2018 Secondary RIGOBERTO E OHIP Practices Insurance:Primetime RILEYDOB: Repository [facility] [id number] Number: [address] [id number] [facility] [place] e Date:8063-72-88Xorc 9[address]Hyb: [phone]) Name:[facility] [phone] () [place] [id number]: 03/10/2018 Tertiary RIGOBERTO E OHIP Practices Insurance:Medical RILEYDOB: Repository [facility] [id number] Number: [address] [id number] [place], [place] Date: [address]Dgy: [phone]) 1548-44-38Uean [phone] (HP) Name:[facility] [address]Hlps[place]qpi, [place] [id number]: 03/10/2018 Tertiary RIGOBERTO E OHIP Practices Insurance:Medical RILEYDOB: Repository [facility] [id number] Number: [address] [id number] [place], [place] Date: [address]Jdo: [phone] [id number] [phone] () Name:[facility] Dominik [address], [place] [id number]: 01/10/2018 RIGOBERTO E Primary RIGOBERTO E Shar [id number] Insurance:MEDICARE RILEYDOB: [place] PART A [facility] [id number] Hospital [address]Cvy: (330) Number: Repository [phone] () [id number] Date:2017-07-14 01/10/2018 Secondary RIGOBERTO E [place] Insurance:Primetime RILEYDOB: [place] 089013-08-05[facility] Repository Number: [id number] e Date:7177-01-84OP [address] [place] [address]AG: 01/10/2018 Tertiary NOT GIVENUNK [place] Insurance:SELF PAY [facility] Number: Effective Repository Date:2018-01-04 12/05/2017 RIGOBERTO E Primary RIGOBERTO E [place] [id number] Insurance:MEDICARE RILEYDOB: [facility] A [facility] [id number] Hospital [address]Xtl: (772) Number: Repository [phone] () [id number] Date:2017-12-05 12/05/2017 Secondary RIGOBERTO E [place] Insurance:Primetime RILEYDOB: [address] Repository Number: [id number] e Date:3991-93-93TH [facility] [address] [place] [address]IL: 12/05/2017 Tertiary NOT GIVENUNK [place] Insurance:SELF PAY [facility] Number: Effective Repository Date:2017-12-05 10/08/2017 RIGOBERTO E Primary RIGOBERTO E Shar [id number] Insurance:MEDICARE RILEYDOB: [facility] A [facility] [id number] [place] [address] 21995Qbn: (330) Number: Repository [phone] () [id number] Date:2017-09-29 10/08/2017 Secondary RIGOBERTO E [place] Insurance:Primetime RILEYDOB: Community Choices [facility] [id number] Hospital SupplemePolicy Repository Number: [id number] e Date:8118-45-15LW [address], [place] [address]EJ: 10/08/2017 Tertiary NOT GIVENUNK [place] Insurance:SELF PAY [facility] Number: Effective Repository Date:2017-09-29 09/26/2017 RIGOBERTO E Primary RIGOBERTO E [place] [id number] Insurance:MEDICARE RILEYDOB: [place] PART A [facility] [id number] Hospital [address]Uiz: (330) Number: Repository [phone] () [id number] Date:2017-09-20 09/26/2017 Secondary RIGOBERTO E [place] Insurance:AULTCAREPol RILEYDOB: Community ic Number: [id number] Hospital [id number] Repository Date:2951-45-51NQ [address], [place] [address]QL: 09/26/2017 Tertiary NOT GIVENUNK [place] Insurance:SELF PAY [facility] Number: Effective Repository Date:2017-09-20 09/23/2017 RIGOBERTO E Primary RIGOBERTO E [place] [id number] Insurance:MEDICARE RILEYDOB: [place] PART A [facility] [id number] Hospital [address]Ffu: (330) Number: Repository [phone] () [id number] Date:2017-09-23 09/23/2017 Secondary RIGOBERTO E [place] Insurance:Primetime RILEYDOB: Community Choices [facility] [id number] Hospital SupplemePolicy Repository Number: [id number] e Date:5347-75-79WL [address], [place] [address]XF: 09/23/2017 Tertiary NOT GIVENUNK [place] Insurance:SELF PAY [facility] Number: Effective Repository Date:2017-09-23 09/16/2017 RIGOBERTO E Primary RIGOBERTO E [place] [id number] Insurance:AULTCAREPol RILEYDOB: [place] icy Number: [id number] Hospital [address]Yph: 330 [id number] Repository [phone] () Date:1197-83-19WJ [address] [address]DC: 09/16/2017 Secondary NOT GIVENUNK [place] Insurance:SELF PAY [facility] Number: Effective Repository Date:2017-09-06 09/09/2017 RIGOBERTO E Primary RIGOBERTO E [place] [id number] Insurance:AULTCAREPol RILEYDOB: [place] icy Number: [id number] Hospital [address]Niz: 330 [id number] Repository [phone] () Date:9017-60-41IQ[address] [address]BW: 09/09/2017 Secondary NOT GIVENUNK [place] Insurance:SELF PAY [facility] Number: Effective Repository Date:2017-09-09 09/05/2017 RIGOBERTO E Primary RIGOBERTO E Shar [id number] Insurance:AULTCAREPol RILEYDOB: [place] icy Number: [id number] Hospital [address]Xkq: 330 [id number] Repository [phone] () Date:3022-52-27BX [address] [place] [address]CC: 09/05/2017 Secondary NOT GIVENUNK [place] Insurance:SELF PAY [facility] Number: Effective Repository Date:2017-09-05 08/25/2017 RIGOBERTO E Primary RIGOBERTO E [place] [id number] Insurance:AULTCAREPol RILEYDOB: [place] icy Number: [id number] Hospital [address]Pzg: 330 [id number] Repository [phone] (HP) Date:8795-19-13EI [address] [place] [address]GR: 08/25/2017 Secondary NOT GIVENUNK [place] Insurance:SELF PAY [facility] Number: Effective Repository Date:2017-08-25 08/17/2017 RIGOBERTO E Primary RIGOBERTO E [place] [id number] Insurance:AULTCAREPol RILEYDOB: [place] icy Number: [id number] Hospital 104[address]Ave: 330 [id number] Repository [phone] (HP) Date:4457-10-84LR [facility] [address] [place] [address]DG: 08/17/2017 Secondary NOT GIVENUNK [place] Insurance:SELF PAY [facility] Number: Effective Repository Date:2017-08-04 08/17/2017 RIGOBERTO E Primary RIGOBERTO E [place] [id number] Insurance:AULTCAREPol RILEYDOB: [place] icy Number: [id number] Hospital [address]Rsd: [phone]) [id number] Repository [phone] () Date:8785-44-00MT [address] [address]IA: 08/17/2017 Secondary NOT GIVENUNK [place] Insurance:SELF PAY [facility] Number: Effective Repository Date:2017-08-17 08/11/2017 RIGOBERTO E Primary RIGOBERTO E [place] [id number] Insurance:AULTCAREPol RILEYDOB: [place] icy Number: [id number] Hospital [address]Fid: [phone]) [id number] Repository [phone] (HP) Date:2357-72-39OE [address] [place] [address]IY: 08/11/2017 Secondary NOT GIVENUNK [place] Insurance:SELF PAY [facility] Number: Effective Repository Date:2017-08-11 08/11/2017 RIGOBERTO E Primary RIGOBERTO E Shar [id number] Insurance:AULTCAREPol RILEYDOB: [place] icy Number: [id number] Hospital [address]Wtn: 330 [id number] Repository [phone] (HP) Date:9518-97-48SP [address] [place] [address]ZS: 08/11/2017 Secondary NOT GIVENUNK [place] Insurance:SELF PAY [facility] Number: Effective Repository Date:2017-08-11 08/11/2017 RIGOBERTO E Primary RIGOBERTO E [place] [id number] Insurance:AULTCAREPol RILEYDOB: [place] icy Number: [id number] Hospital [address]Avv: 330 [id number] Repository [phone] (HP) Date:0261-32-45ON [address] [address]IV: 08/11/2017 Secondary NOT GIVENUNK [place] Insurance:SELF PAY [facility] Number: Effective Repository Date:2017-08-11 08/11/2017 RIGOBERTO E Primary RIGOBERTO E [place] [id number] Insurance:AULTCAREPol RILEYDOB: [place] icy Number: [id number] Hospital [address]Rdf: 330 [id number] Repository [phone] () Date:1950-76-23XK [facility] [address] [place] [address]DZ: 08/11/2017 Secondary NOT GIVENUNK [place] Insurance:SELF PAY [facility] Number: Effective Repository Date:2017-08-08 08/08/2017 RIGOBERTO E Primary RIGOBERTO E [place] [id number] Insurance:AULTCAREPol RILEYDOB: [place] icy Number: [id number] Hospital [address]Pqr: (662) [id number] Repository [phone] (HP) Date:3389-13-12CU [address] [place] [address]OF: 08/08/2017 Secondary NOT GIVENUNK [place] Insurance:SELF PAY [facility] Number: Effective Repository Date:2017-08-08 08/02/2017 RIGOBERTO E Primary RIGOBERTO E [place] [id number] Insurance:AULTCAREPol RILEYDOB: [place] icy Number: [id number] Hospital [address]Dzz: 330 [id number] Repository [phone] () Date:7875-10-53EE[place] 6191806-09[address]WP: 08/02/2017 Secondary NOT GIVENUNK [place] Insurance:SELF PAY [facility] Number: Effective Repository Date:2017-07-14 08/02/2017 RIGOBERTO E Primary RIGOBERTO E [place] [id number] Insurance:AULTCAREPol RILEYDOB: [place] icy Number: [id number] Hospital [address]Tqp: (876) [id number] Repository [phone] () Date:8227-56-04VDJonathan [place] 6191806-09[address]WP: 08/02/2017 Secondary NOT GIVENUNK [place] Insurance:SELF PAY [facility] Number: Effective Repository Date:2017-08-02 07/14/2017 RIGOBERTO E Primary RIGOBERTO E [place] [id number] Insurance:AULTCAREPol RILEYDOB: [place] icy Number: [id number] Hospital [address]Dto: 330 [id number] Repository [phone] () Date:3198-41-23IV[address] [address]CF: 07/14/2017 Secondary NOT GIVENUNK [place] Insurance:SELF PAY [facility] Number: Effective Repository Date:2017-07-14 07/12/2017 Rigoberto E Primary NOT GIVENUNK [place] [id number] Insurance:SELF PAY [facility] [address]Vzl: (554) Number: Effective Repository [phone] () Date:2017-07-12 07/12/2017 Rigoberto E Primary NOT GIVENUNK [place] [id number] Insurance:SELF PAY [facility] [address]Jjf: (330) Number: Effective Repository [phone] (HP) Date:2017-07-12 07/04/2017 Rigoberto E Primary NOT GIVENUNK [place] [id number] Insurance:SELF PAY [facility] [address]Gqp: (330) Number: Effective Repository [phone] (HP) Date:2017-06-30 06/10/2017 Rigoberto E Primary Rigoberto E [place] [id number] Insurance:AULTCAREPol RileyDOB: [place] icy Number: [id number] Hospital [address]Mne: 330 [id number] Repository [phone] () Date:4672-65-52AX [address] [place] [address]JF: 06/10/2017 Secondary NOT GIVENUNK [place] Insurance:SELF PAY [facility] Number: Effective Repository Date:2017-06-10 06/06/2017 Rigoberto E Primary Rigoberto E [place] [id number] Insurance:AULTCAREPol RileyDOB: [facility] Number: [id number] [address]Xdr: [id number] Repository Date:[id number] BOX (HP) [address] [place] [id number]: 06/06/2017 Secondary NOT GIVENUNK Shar Insurance:SELF PAY [facility] Number: Effective Repository Date:2017-06-06 04/21/2017 Rigoberto E Primary Rigoberto E [place] [id number] [place] Insurance:AULTCAREPol RileyDOB: [facility] Number: [id number] [address]Upp: [id number] Repository Date:[id number] BOX (HP) [address] [place] [id number]: 04/21/2017 Secondary NOT GIVENUNK [place] Insurance:SELF PAY [facility] Number: Effective Repository Date:2017-04-21
== END ==
PROVIDERS: Family Provider Internal Medicine; PCP Internal Medicine; Referring Provider Internal Medicine; Visit Provider Internal Medicine
DX: M25.562 Pain in left knee (principal); M25.531 Pain in right wrist
CPT/HCPCS: 73110; 73564

== ENCOUNTER → 2018-06-08 17:48 | Outpatient (CLI) | payer MEDICARE, OTHER, SELFPAY ==
[2018-01-10 10:18] VITALS: BMI 40.1
--- NOTE | 2018-06-08 18:01 | MRI_ITS ---
STUDY: MRI LUMBAR SPINE WITHOUT CONTRAST REASON FOR EXAM: Male, 67 years old. Lower back pain TECHNIQUE: Standardized fat and water weighted pulse sequences were obtained in the sagittal and axial planes. COMPARISON: None FINDINGS: T12-L1: Endplate spondylosis. Decreased disc height and small circumferential disc bulge. Degenerative changes of the bilateral facet joints. Mild narrowing of the central canal and bilateral intervertebral neural foramina. Normal lumbar lordosis. There is no substantial scoliosis. Normal conus medullaris that terminates at the L1 level. L1-2: Endplate spondylosis. Decreased disc height and small circumferential disc bulge. Degenerative changes of the bilateral facet joints. Mild narrowing of the central canal and bilateral intervertebral neural foramina. L2-3: Normal endplates. Normal disc height, hydration and morphology. Normal bilateral facet joints. Normal central canal and bilateral lateral recesses. Normal bilateral intervertebral neural foramina. L3-4: Endplate spondylosis. Decreased disc height and small circumferential disc bulge. Degenerative changes of the bilateral facet joints. Mild narrowing of the central canal and bilateral intervertebral neural foramina. L4-5: Normal endplates. Normal disc height, hydration and morphology. Degenerative changes in the bilateral facet joints. Normal central canal and bilateral lateral recesses. Normal bilateral intervertebral neural foramina. L5-S1: Normal endplates. Normal disc height, hydration and morphology. Normal bilateral facet joints. Normal central canal and bilateral lateral recesses. Normal bilateral intervertebral neural foramina. Normal visualized sacral ala. Normal visualized paraspinous soft tissue structures. MRI/Spine Lumbar (Routine) IMPRESSION: Multilevel degenerative changes, as described above. Electronically Signed: Carrington Lance, at 5:08 EDT Tel , Service support ,
== END ==
PROVIDERS: Family Provider Internal Medicine; PCP Internal Medicine; Referring Provider Internal Medicine; Visit Provider Internal Medicine
DX: R29.898 Other symptoms and signs involving the musculoskeletal system (principal)
CPT/HCPCS: 72148

== ENCOUNTER → 2018-08-01 16:52 | Outpatient (CLI) | payer MEDICARE, OTHER, SELFPAY ==
[2018-01-10 10:18] VITALS: BMI 40.1
[2018-08-01 17:38] LABS: Bacteria 0 SEEN /hpf (None Seen); Mucous, Urine 0 SEEN /hpf (<or=2+); Red Blood Cells-Urine 0 SEEN /hpf (0-5)
[2018-08-01 17:47] LABS: Color, Urine Yellow (Yellow); Glucose, Dipstick Normal (Normal); Ketone-Dipstick Negative (Negative); Leukocyte Esterase-Dipstick Negative /ul (Negative); Nitrite-Dipstick Negative (Negative); Occult Blood-Urine 50 /ul (Negative); Protein-Dipstick 100 mg/dl (Negative); Specific Gravity, Urine 1.015 (1.002-1.030); Urine Bilirubin Dipstick Negative (Negative); Urine Clarity Clear (Clear); Urine Urobilinogen Normal (Normal)
[2018-08-01 17:54] LABS: White Blood Cells 0-5 SEEN /hpf (0-5)
[2018-08-01 17:55] LABS: Calcium Oxalate Crystals Ur 3+ /hpf (<or=2+); Squamous Epithelial Cells - UA 0-5 SEEN /hpf (0-5)
== END ==
PROVIDERS: Family Provider Internal Medicine; PCP Internal Medicine; Referring Provider Nurse Practitioner Adult Health; Visit Provider Nurse Practitioner Adult Health
DX: R31.29 Other microscopic hematuria (principal)
CPT/HCPCS: 81001

== ENCOUNTER → 2018-08-16 11:58 | Outpatient (CLI) | payer MEDICARE, OTHER, SELFPAY ==
[2018-01-10 10:18] VITALS: BMI 40.1
--- NOTE | 2018-08-16 12:02 | RAD_ITS ---
STUDY: X-RAY CHEST REASON FOR EXAM: Male, 67 years old. TECHNIQUE: 2 views COMPARISON: August 11, 2017 FINDINGS: The lungs are clear and expanded. There is no demonstrated pleural abnormality. Normal size heart. Normal mediastinum and deborah. Normal visualized pulmonary arteries. Normal visualized aortic arch and descending thoracic aorta. Normal visualized thoracic spine. Normal visualized ribs, clavicles, and shoulders. There is no demonstrated abnormality of the visualized soft tissue structures of the upper abdomen. RAD/Chest PA and Lateral IMPRESSION: Normal x-ray examination of the chest unchanged since August 11, 2017. Electronically Signed: Scot Schuler, at 12:20 EDT Tel , Service support ,
== END ==
PROVIDERS: Family Provider Internal Medicine; PCP Internal Medicine; Referring Provider Internal Medicine; Visit Provider Internal Medicine
DX: R05 Cough (principal)
CPT/HCPCS: 71046

== ENCOUNTER → 2018-09-29 13:59 | Outpatient (CLI) | payer MEDICARE, OTHER, SELFPAY ==
[2018-01-10 10:18] VITALS: BMI 40.1
--- NOTE | 2018-09-29 14:02 | CT_ITS ---
STUDY: CT CHEST WITHOUT CONTRAST REASON FOR EXAM: Male, 68 years old. Shortness of breath RADIATION DOSAGE (If Supplied By Facility): CTDIvol = ( 20.15 ) mGy, DLP = ( 803.08 ) mGycm TECHNIQUE: Transaxial imaging was performed without the administration of intravenous contrast material. Individualized dose optimization techniques were used for this CT. COMPARISON: Chest x-ray 16 August 2018, 18 January 2017 FINDINGS: Examination is mildly degraded by motion artifact. Diagnostic information is available. There is a small irregular linear consolidation in the right lower lobe, possibly platelike atelectasis. There is a cluster of groundglass airspace centrilobular nodules in the right middle lobe medial segment. Remainder of the lungs are clear. Central airways are patent. There is a much solitary smaller groundglass nodule in the lingula. There is severe coronary artery disease with possible stents. Cardiac chambers are normal in size and shape. There is mediastinal lipomatosis. There is intra-abdominal intraperitoneal and retroperitoneal lipomatosis. Osseous structures are intact. CT/Chest without Contrast IMPRESSION: 1. Right middle lobe nodular groundglass opacity, possibly infectious pneumonitis such as bronchogenic infection. 2. Presumed right lower lung atelectasis. 3. Severe coronary artery disease. Electronically Signed: Georgia Rico, at 17:01 EDT Tel , Service support ,
== END ==
PROVIDERS: Family Provider Internal Medicine; PCP Internal Medicine; Referring Provider Internal Medicine; Visit Provider Internal Medicine
DX: J84.10 Pulmonary fibrosis, unspecified (principal)
CPT/HCPCS: 71250

== ENCOUNTER → 2018-12-21 09:42 | Outpatient (CLI) | payer MEDICARE, OTHER, SELFPAY ==
[2018-01-10 10:18] VITALS: BMI 40.1
--- NOTE | 2018-12-21 09:50 | BD_ITS ---
STUDY: DUAL ENERGY X-RAY ABSORPTIOMETRY / DXA REASON FOR EXAM: Male, 68 years old. Long-term steroid use. Loss of height. TECHNIQUE: Bone Mineral Density (BMD) measurements of lumbar spine and bilateral hips were obtained. COMPARISON: None. FINDINGS: Lumbar Spine (L1-L4): g/cm2 (1.114) / T-score (-0.9) / Z-score (-0.4) Findings are suggestive of normal bone density with a low fracture risk. Left Femur Total: g/cm2 (0.981) / T-score (-0.8) / Z-score (-0.3) Left Femoral Neck: g/cm2 (0.832) / T-score (-1.8) / Z-score (-0.7) Right Femur Total: g/cm2 (1.022) / T-score (-0.6) / Z-score (0.0) Right Femoral Neck: g/cm2 (0.970) / T-score (-0.8) / Z-score (0.3) BD/Dexa Bone Density Study IMPRESSION: The patient is considered osteopenic as outlined below according to World Marko Organization (WHO) criteria with a moderate fracture risk. Reference Information: The T-score is the number of standard deviations above or below the standard which is normal for young adults at their peak bone mineral density. The World Health Organization (WHO) interprets the T-scores as follows: Above -1 Normal bone density Between -1 and -2.5 Osteopenia Equal to / or below -2.5 Osteoporosis As a practical clinical guideline, osteopenia may be graded as follows: Mild -1 through -1.5 Moderate -1.6 through -2.0 Severe -2.1 through -2.4 The Z-score is the number of standard deviations above or below age-matched controls. A Z-score of less than -1.5 would be considered abnormal. References: 1. NIH Osteoporosis and Related Bone Diseases http://www.osteo.org 2. International Society for Clinical Densitometry http://www.iscd.org 3. National Osteoporosis Foundation http://www.nof.org Electronically Signed: Wilfredo Awan, at 9:52 EDT , Service support ,
== END ==
PROVIDERS: Family Provider Internal Medicine; PCP Internal Medicine; Referring Provider Internal Medicine; Visit Provider Internal Medicine
DX: Z79.51 Long term (current) use of inhaled steroids (principal); M85.80 Other specified disorders of bone density and structure, unspecified site
CPT/HCPCS: 77080

== ENCOUNTER → 2019-01-05 12:07 | Outpatient (CLI) | payer MEDICARE, OTHER, SELFPAY ==
[2018-01-10 10:18] VITALS: BMI 40.1
== END ==
PROVIDERS: Family Provider Internal Medicine; PCP Internal Medicine; Referring Provider Urology; Visit Provider Urology
DX: N39.0 Urinary tract infection, site not specified (principal)
CPT/HCPCS: 36415; 87077; 87086; 87088; 87186

== ENCOUNTER 2019-01-12 11:19 | Day surgery (SDC) | payer MEDICARE, OTHER, SELFPAY ==
[2018-01-10 10:18] VITALS: BMI 40.1
[2019-01-05 11:48] VITALS: BP 107/58; PULSE 76; RESP 18; TEMP 36.6; O2SAT 95; BMI 40.9
--- NOTE | 2019-01-05 12:06 | SDCEKG_ITS ---
Test Reason : Blood Pressure : / mmHG Vent. Rate : 075 BPM Atrial Rate : 075 BPM P-R Int : 184 ms QRS Dur : 168 ms QT Int : 450 ms P-R-T Axes : 023 008 024 degrees QTc Int : 502 ms Normal sinus rhythm Right bundle branch block Abnormal ECG Confirmed by GERDA CALVO, NARESH ([id number]), acquisition editor JAYLIN CASTELLON ([id number]) on 01/10/2019 2:13:21 PM Referred By: Corey Lowe Confirmed By:NARESH LORENZ MD
[2019-01-05 12:29] LABS: International Normalized Ratio 1.1; Partial Thromboplast Time 29.4 Seconds (24.1-36.2); Prothrombin Time (Protime)PT. 13.5 SECONDS (11.7-14.9)
[2019-01-05 12:31] LABS: Hematocrit 36.7 % (40-54); Hemoglobin 11.6 g/dL (13.0-16.5); Mean Corp Hgb Conc 31.6 g/dL (32-36); Mean Corpuscular Volume 91.8 fL (80-94); Mean Platelet Vol. 8.6 fl (6.2-12.0); Platelet Count 259 K/mm3 (150-450); RBC Distribution Width CV 14.2 % (11.6-14.6); RBC Distribution Width SD 48.2 fl (35.1-43.9); White Blood Count 10.5 K/mm3 (4.4-11.0)
[2019-01-05 12:47] LABS: AST(SGOT) 16 U/L (15-37); Alanine Aminotransfer ALT/SGPT 18 U/L (16-61); Albumin, Serum 3.1 g/dL (3.2-5.0); Alkaline Phosphatase 71 U/L (45-117); Anion Gap 7 (5-15); BUN 18 mg/dL (7-18); BUN/Creat Ratio 15.1 RATIO (10-20); Bilirubin, Direct 0.11 mg/dL (0.00-0.30); Calcium,Total 9.1 mg/dL (8.5-10.1); Chloride 100 mmol/L (98-107); Creatinine, Serum 1.19 mg/dL (0.70-1.30); EST Glomerular Filtration Rate 65 mL/min (>60); Est Glom Filt Rate - Afr Amer 79 mL/min (>60); Estimated Creatinine Clearance 61.06 ml/min; Globulin 4.2 g/dL (2.2-4.2); Glucose 126 mg/dL (74-106); Potassium 4.1 mmol/L (3.5-5.1); Protein, Total 7.3 g/dL (6.4-8.2); Sodium Level 134 mmol/L (136-145)
[2019-01-05 13:54] LABS: Hemoglobin A1c 6.1 % (4.2-6.3)
[2019-01-12 11:41] LABS: Bedside Glucose 114 mg/dL (70-110)
[2019-01-12 11:44] VITALS: BP 122/62; PULSE 69; RESP 18; TEMP 36.8; O2SAT 97; BMI 39.7
[2019-01-12] MEDS: Lactated Ringers 1,000 ML 100 ML IV (11:55)
[2019-01-12] MEDS: Cefazolin 2 GM in 0.9% Normal Saline 100 ML IV (13:40)
--- NOTE | 2019-01-12 13:41 | PCM.DC ---
- Discharge Diagnoses Current Active Problems: BPH with obstruction Reason(s) for Visit for Discharge Instructions: Transurethral incision of the prostate with a laser You will use the following diet at home:: Regular Your food should be the consistency of: Regular Your liquids should be the consistency of: Regular/Thin Discharge Activity: Return to Normal Activity Call your doctor if your incision/area has: Continuous Slow Oozing Suture Line Care: Avoid Pulling/Pushing, Avoid Pinching/Bending Catheter: Sierra to leg bag Drain: [place] Allergies/Adverse Reactions: Allergies iodine Allergy (Verified 01/12/19 11:41) Rash, upset stomach, facial swelling Penicillins Allergy (Verified 01/12/19 11:41) Rash pseudoephedrine HCl [From Actifed] Allergy (Verified 01/12/19 11:41) mood changes triprolidine HCl [From Actifed] Allergy (Verified 01/12/19 11:41) mood changes ibuprofen Adverse Reaction (Verified 01/12/19 11:41) not able to use d/t heart condition Medications to take at Discharge Aspirin [Aspirin, Baby] 81 mg PO QHS 06/28/13 Montelukast [Singulair] 10 mg PO QHS 06/28/13 Pantoprazole Sodium [Protonix] 40 mg PO BID 06/28/13 Amlodipine [Norvasc] 5 mg PO DAILY 10/18/13 albuterol sulfate 2.5 mg/3 mL (0.083 %) solution for nebulization 1.25 mg INHALATION Q4H PRN 07/12/17 albuterol sulfate HFA 90 mcg/actuation aerosol inhaler 2 puff INHALATION Q4H PRN 07/12/17 azelastine 0.15 % (205.5 mcg) nasal spray 1 spray INTRANASAL BID 07/12/17 cyclobenzaprine 10 mg tablet 10 mg PO TID PRN 07/12/17 eszopiclone 3 mg tablet 3 mg PO QHS 07/12/17 hydrocodone 5 mg-acetaminophen 325 mg tablet 1 tab PO Q6H PRN 07/12/17 lorazepam 0.5 mg tablet 0.5 mg PO QDAY PRN tab 07/12/17 mirabegron ER 50 mg tablet,extended release 24 hr 50 mg PO QHS 07/12/17 buspirone 10 mg tablet 30 mg PO BID tab 07/14/17 cholecalciferol (vitamin D3) 2,000 unit tablet 2,000 unit PO QDAY 07/14/17 fluticasone furoate 200 mcg-vilanterol 25 mcg/dose inhalation powder 1 inh INHALATION QDAY 07/14/17 lactobacillus combination no.8 3 billion cell capsule 3,000 mmu cells PO QDAY 07/14/17 multivitamin tablet 1 tab PO QDAY 07/14/17 rosuvastatin 40 mg tablet 40 mg PO QHS 07/14/17 tamsulosin 0.4 mg capsule 0.4 mg PO QHS cap 07/14/17 venlafaxine ER 150 mg capsule,extended release 24 hr 150 mg PO QHS 07/14/17 venlafaxine ER 75 mg capsule,extended release 24 hr 75 mg PO QAM cap 07/14/17 metformin ER 500 mg tablet,extended release 24 hr 1,000 mg PO QPM tab 01/10/18 Fesoterodine Fumarate [Toviaz] 4 mg PO QHS 01/05/19 Nitroglycerin [Nitro-Dur] 0.6 mg TRANSDERMAL DAILY PRN 01/05/19 Ranolazine [Ranolazine ER] 500 mg PO BID 01/05/19 Vilazodone Hydrochloride [Viibryd] 40 mg PO DAILY 01/05/19 traMADol [Ultram (G)] 50 mg PO Q6H PRN PRN 01/05/19 Primary Care Physician: Adelaida Fraga DO [Primary Care Provider] - Test Results: Test results from this visit will be discussed in further detail at your follow-up appointment, if applicable. Please Follow Up With: Corey Lowe MD When: Next week to remove the catheter
--- NOTE | 2019-01-12 14:22 | OP.PCM_ITS ---
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 The other possibilities that he may just benefit minimally for this procedure if his bladder is too distended not emptying properly he may have to learn self intermittent catheterization to empty his bladder. He has an atonic poorly functioning bladder. Patient was taken back to the operating room after smooth induction of general anesthesia he was placed in dorsolithotomy position, penis and testicles are prepped and draped in usual sterile fashion, went into the bladder with a 21 Persian rigid cystourethroscope the entire length urethra is normal no scar tissue or abnormalities along the course of the urethra sphincter was intact identified the verumontanum inside the prostate I then used an 800 ?m laser faint fiber and identified the right ureteral orifice and then incised open the bladder neck and prostate from the UO all the way back to the verumontanum by incising the prostate open and open up a nice wide open channel I then went to the left side the same thing using the laser opened up the bladder neck and open of the urinary channel nicely he then had a nice wide open channel I did a flow test had adequate flow. There is no bleeding Sierra catheter was placed in the bladder he will go home with a catheter and then we will see him next week to remove the catheter. We did a laser incision from the bladder neck on the right side and the bladder neck on the left side at the 5 and 7 o'[address] position all the way back to the verumontanum. Type of Anesthesia:: General Drains: 18 fr - Admit VTE Documentation VTE Present on Admission: No VTE Mechan Device Prophylaxis: SCD's
[2019-01-12 14:31] VITALS: BP 122/62; BP 128/73; PULSE 67; RESP 16; TEMP 36.6; O2SAT 98
[2019-01-12 14:41] LABS: Bedside Glucose 116 mg/dL (70-110)
[2019-01-12 14:45] VITALS: BP 113/74; BP 122/62; PULSE 66; RESP 16; O2SAT 95
[2019-01-12 15:00] VITALS: BP 111/76; BP 122/62; PULSE 64; RESP 16; O2SAT 97
[2019-01-12 15:14] VITALS: BP 109/69; BP 122/62; PULSE 62; RESP 16; TEMP 36.5; O2SAT 94
[2019-01-12] MEDS: HYDROcodone Bitartrate/Apap 5/325 Tablet PO (15:52)
[2019-01-12 16:42] VITALS: BP 114/67; BP 122/62; PULSE 65; RESP 16; TEMP 36.7; O2SAT 94
== END 2019-01-12 17:14 | disposition home or self-care (01) ==
LOC: SDC 11:19 → AC 11:22
PROVIDERS: Anesthesiology; Family Provider Internal Medicine; PCP Internal Medicine; Referring Provider Urology; Visit Provider Urology
PROC: 0V508ZZ Destruction of Prostate, Via Natural or Artificial Opening Endoscopic (ICD-10-PCS; CPT 52648; principal; 2019-01-12 13:05)
DX: N40.1 Benign prostatic hyperplasia with lower urinary tract symptoms (principal); N13.8 Other obstructive and reflux uropathy; R35.0 Frequency of micturition; R35.1 Nocturia; N32.81 Overactive bladder; N31.2 Flaccid neuropathic bladder, not elsewhere classified; N32.89 Other specified disorders of bladder; I25.10 Atherosclerotic heart disease of native coronary artery without angina pectoris; E11.9 Type 2 diabetes mellitus without complications; I10 Essential (primary) hypertension; J45.909 Unspecified asthma, uncomplicated; K21.9 Gastro-esophageal reflux disease without esophagitis; F32.9 Major depressive disorder, single episode, unspecified; F41.9 Anxiety disorder, unspecified; E66.9 Obesity, unspecified; Z68.39 Body mass index [BMI] 39.0-39.9, adult; Z79.84 Long term (current) use of oral hypoglycemic drugs; Z79.82 Long term (current) use of aspirin; Z79.899 Other long term (current) drug therapy; Z86.718 Personal history of other venous thrombosis and embolism
CPT/HCPCS: 00910; 52450; 80048; 80076; 82962; 83036; 85027; 85610; 85730; 93005; J7120; J2405

== ENCOUNTER → 2019-03-16 10:12 | Outpatient (CLI) | payer MEDICARE, OTHER, SELFPAY ==
--- NOTE | 2019-03-16 10:16 | CDU_ITS ---
Reason For Study: carotid stenosis Rt. Velocities/BP Lt. Velocities/BP Prox CCA 103.4/9.5 cm/sec. Prox CCA 112.5/26.5 cm/sec. Mid CCA 82.9/19.0 cm/sec. Mid CCA 90.4/23.9 cm/sec. Dist CCA 60.0/14.9 cm/sec. Dist CCA 55.5/19.0 cm/sec. Prox ICA 41.5/12.2 cm/sec. Prox ICA 63.8/24.4 cm/sec. Mid ICA 56.6/19.7 cm/sec. Mid ICA 60.3/20.8 cm/sec. Dist ICA 70.8/21.6 cm/sec. Dist ICA 63.6/23.0 cm/sec. Rt. ICA/CCA = 70.8/82.9=0.85. Lt. ICA/CCA = 60.3/90.4=0.7. Prox ECA 88.6/14.9 cm/sec. Prox ECA 119.8/13.9 cm/sec. Rt. Vert. 50.0/15.0 cm/sec. Lt. Vert. 58.1/17.5 cm/sec. Right Extracranial There is intimal thickening but no significant atherosclerotic plaque noted in the right common carotid artery. There is intimal thickening but no significant atherosclerotic plaque noted in the right internal carotid artery. There is intimal thickening but no significant atherosclerotic plaque noted in the right external carotid artery. Antegrade flow is noted in the right vertebral artery. Left Extracranial There is intimal thickening but no significant atherosclerotic plaque noted in the left common carotid artery. There is heterogeneous, irregular atherosclerotic plaque noted in the left internal carotid artery. There is heterogeneous, irregular atherosclerotic plaque noted in the left external carotid artery. Antegrade flow is noted in the left vertebral artery. Interpretation Summary No significant atherosclerotic plaque or stenosis noted in the right internal carotid artery. Mild (<50%) stenosis left extracranial internal carotid. Flow within the vertebral arteries is antegrade bilaterally. Ordering Physician: Adelaida Fraga Referring Physician: Adelaida Fraga Performed By: Nilda Rahman, MORE, RVT
== END ==
PROVIDERS: PCP Internal Medicine; Referring Provider Internal Medicine; Visit Provider Internal Medicine
DX: I65.23 Occlusion and stenosis of bilateral carotid arteries (principal)
CPT/HCPCS: 93880

== ENCOUNTER → 2019-04-23 14:36 | Outpatient (CLI) | payer MEDICARE, OTHER, SELFPAY ==
--- NOTE | 2019-04-23 14:43 | RAD_ITS ---
STUDY: X-RAY CHEST REASON FOR EXAM: Male, 68 years old. bronchiectasis TECHNIQUE: PA and lateral views of the chest. COMPARISON: 08/16/2018 FINDINGS: The lungs are clear and expanded. There is no demonstrated pleural abnormality. Normal size heart. Normal mediastinum and deborah. Normal visualized pulmonary arteries. Normal visualized aortic arch and descending thoracic aorta. Normal visualized thoracic spine. Normal visualized ribs, clavicles, and shoulders. There is no demonstrated abnormality of the visualized soft tissue structures of the upper abdomen. RAD/Chest PA and Lateral IMPRESSION: Normal x-ray examination of the chest. Electronically Signed: Will Hughes MD at 14:59 EST Tel , Service support ,
== END ==
PROVIDERS: PCP Internal Medicine; Referring Provider Internal Medicine; Visit Provider Internal Medicine
DX: J47.9 Bronchiectasis, uncomplicated (principal)
CPT/HCPCS: 71046

== ENCOUNTER 2019-05-19 18:35 | Emergency (ER) | payer MEDICARE, OTHER, SELFPAY ==
[2019-05-19 18:35] VITALS: BP 123/74; PULSE 87; RESP 20; TEMP 37.1; O2SAT 96; BMI 41.3
--- NOTE | 2019-05-19 19:19 | RAD_ITS ---
STUDY: X-RAY CHEST REASON FOR EXAM: Male, 68 years old. COUGH, SOB FOR COUPLE WKS PROGRESSIVELY WORSE. SWEATS TECHNIQUE: Portable chest. COMPARISON: 04/23/2019. FINDINGS: No pleural effusion. Lung rocha are clear. Normal size heart. Normal mediastinum and deborah. Normal visualized pulmonary arteries. Normal visualized aortic arch and descending thoracic aorta. Degenerative changes of the right shoulder. Soft tissues and bony structures are otherwise unremarkable. RAD/Chest 1 View (Portable) IMPRESSION: Normal x-ray examination of the chest. Electronically Signed: Lucy Dowling MD at 19:59 EDT Tel , Service support ,
--- NOTE | 2019-05-19 19:22 | ED.VIS.DYS ---
History of Present Illness Chief Complaint: Cough Informant: Patient Onset: Weeks - 2-3 Timing: Continuous Quality: Wheezing Current Severity: Moderate Maximum Severity: Moderate Worsened by: Coughing, Exertion Relieved by: Albuterol - until today Associated Symptoms: Cough - [employer] but feels like I have stuff to get out of my chest Chest Pain: Tightness Narrative: Patient has had cough and shortness of breath for 2-3 weeks now, no fevers, no recent travel out of the area, no contact with known patient infected with coronavirus. He has a history of pulmonary fibrosis and bronchiectasis, he states this has felt similar to prior flareups/upper respiratory illnesses, that have improved on antibiotics and prednisone in the past, except for everything feeling worse today, which is the first day of this illness that his albuterol did not help. He tried rescue inhaler and a nebulizer treatment. His doctor referred him to the emergency department for further evaluation especially in context of the current coronavirus pandemic. - Past Medical History (1) Pre-diabetes Status: Chronic (2) Pulmonary fibrosis Status: Chronic (3) Bronchiectasis Status: Chronic (4) Atherosclerotic heart disease of [place] coronary artery without angina pectoris Status: Chronic Comment: PTCA/RINA to Prox LAD 08/11/05 (5) Hyperlipidemia Status: Chronic (6) Hypertension Status: Chronic (7) Presence of stent in coronary artery Status: Chronic Comment: PTCA/RINA to Prox LAD 08/11/05 Past Medical History - Allergies and Home Meds Allergies/Adverse Reactions: Allergies iodine Allergy (Verified 05/19/19 18:54) Rash, upset stomach, facial swelling Penicillins Allergy (Verified 05/19/19 18:54) Rash pseudoephedrine HCl [From Actifed] Allergy (Verified 05/19/19 18:54) mood changes triprolidine HCl [From Actifed] Allergy (Verified 05/19/19 18:54) mood changes ibuprofen Adverse Reaction (Verified 05/19/19 18:54) not able to use d/t heart condition Primary Care Physician: Adelaida Fraga DO [Primary Care Provider] - Smoking Status: Former smoker Review of Systems General: Reports: Sweats. Denies: Chills, Fever Eyes: Denies: Visual changes - bilaterally, Diplopia ENT: Reports: Right ear pain. Denies: Rhinorrhea, Sore throat Cardiovascular: Reports: Chest pain. Denies: Palpitations, Heart racing Respiratory: Reports: Dyspnea, Cough. Denies: Sputum, Orthopnea Gastrointestinal: Denies: Abdominal pain, Nausea, Vomiting, Diarrhea, Melena, Hematochezia Genitourinary: Denies: Dysuria, Hematuria, Frequency Musculoskeletal: Denies: Neck pain, Back pain, Swelling, Extremity Pain Skin: Denies: Rash, Wounds Neurological: Denies: Headache, Weakness, Numbness Physical Exam Vital Signs/Narrative: Vital Signs Temp Pulse Resp BP Pulse Ox 05/19/19 18:35 98.8 F 87 20 H 123/74 H 96 Inital Vital Signs reviewed: Yes General: Well nourished, Well developed, No Acute Distress - speaking in full sentences Head: Normocephalic, Atraumatic Eyes: Perrl, EOMI ENT: Moist mucous membranes, No rhinorrhea, TM's clear, - - cerumen present bilaterally, nonocclusive Neck: Supple, Nontender, No lymphadenopathy Cardiovascular: Regular rate, Regular rhythm, No murmurs Respiratory: No distress, Chest nontender, Rales, Wheezing - insp/exp Abdomen: Soft, Nontender, Nondistended, Normal bowel sounds Back: Nontender, Normal Inspection, CVA tenderness Extremities: Nontender, No edema. Negative for: Calf Tenderness Skin: Normal color, No rash, No Trauma Neurological: Alert, Oriented x3, Cranial nerves II-XII grossly intact, Normal Strength, Normal Sensation, Normal Gait Psychological: Normal affect, Normal Mood Diagnostic/Tx/Re-eval Clinical Impression(s) from Imaging Studies Chest X-Ray 05/19/19 19:19 IMPRESSION: Normal x-ray examination of the chest. Electronically Signed: Lucy Dowling MD at 19:59 EDT Tel , Service support , Treatment - Dyspnea: Albuterol, Atrovent Repeat Evaluation: Improved - Medical Decision Making Chest x-ray is unremarkable. He feels better after a duo nebulizer treatment. His pulse ox is good at 96% in context of his illness, and lack of concerning radiographic findings, I think treating him with steroids and antibiotics would be reasonable, as has been done with him in the past. Patient is comfortable with that plan and we discussed quarantine for possible coronavirus infection which we are not able to test for a rule out here as an outpatient. ED Disposition - Plan for ED Patient: Disposition: Home or Assisted Living Diagnosis: Upper respiratory tract infection, Bronchiectasis with acute exacerbation Instructions: Bronchiectasis Prescriptions: levoFLOXacin tablet [Levaquin tablet] 500 mg PO DAILY #7 tab Transmission Status: Pending to [id number] MethylPREDNISolone DosePak [Medrol DosePak] 4 mg PO UD #1 box Transmission Status: Pending to [id number] Referrals: Fast,Adelaida, DO [Primary Care Provider] - 3-5 Days if not improving
[2019-05-19] MEDS: Ipratropium/Albuterol Sulfate 3 ML AMPUL.NEB INHALATION (19:53)
[2019-05-19 19:55] VITALS: PULSE 88; RESP 20
[2019-05-19] MEDS: predniSONE 20 MG Tablet 40 MG PO (20:29)
[2019-05-19 20:30] VITALS: BP 131/74; PULSE 66; RESP 16
== END 2019-05-19 20:32 | disposition home or self-care (01) ==
PROVIDERS: Emergency Provider Emergency Medicine; PCP Internal Medicine
DX: J47.1 Bronchiectasis with (acute) exacerbation (principal); J06.9 Acute upper respiratory infection, unspecified; J84.10 Pulmonary fibrosis, unspecified; H92.01 Otalgia, right ear; I25.10 Atherosclerotic heart disease of native coronary artery without angina pectoris; I10 Essential (primary) hypertension; E78.5 Hyperlipidemia, unspecified; R73.03 Prediabetes; Z88.6 Allergy status to analgesic agent; Z88.0 Allergy status to penicillin; Z79.84 Long term (current) use of oral hypoglycemic drugs; Z79.82 Long term (current) use of aspirin; Z79.899 Other long term (current) drug therapy; Z87.891 Personal history of nicotine dependence; Z95.5 Presence of coronary angioplasty implant and graft
CPT/HCPCS: 71045; 94640; 99283

== ENCOUNTER → 2019-08-21 06:35 | Outpatient (CLI) | payer MEDICARE, OTHER, SELFPAY ==
[2019-08-16 09:50] VITALS: BMI 39.5
--- NOTE | 2019-08-21 16:00 | STRESSREP ---
Stress Test Report Date: 08-21-2019 Procedure: Pharmacologic stress nuclear imaging study Indications: Chest pain; fatigue; CAD; PCI Consent: Per the patient Procedure: The patient underwent pharmacologic (Regadenoson) evaluation with a peak heart rate of 94 beats per minute (61 %predicted maximal heart rate) and a peak blood pressure of 118/60 mmHg. The baseline ECG demonstrated sinus rhythm; right bundle branch block. The peak pharmacologic ECG demonstrated no obvious ECG changes. There were no cardiac dysrhythmias pretest, during pharmacologic infusion, or recovery. There was no complaint of chest discomfort during pharmacologic infusion or recovery. The examination was discontinued secondary to completion of protocol. Impression: 1. Pharmacologic (Regadenoson) evaluation 2. Peak pharmacologic ECG with continued right bundle branch block with no obvious ECG changes. 3. There were no cardiac dysrhythmias pretest, during pharmacologic infusion, or recovery. 4. Nuclear images pending Myocardial perfusion imaging study: Technique: The patient was injected with 14.8 millicuries of technetium 99m Cardiolite and subsequently rest SPECT Cardiolite nuclear imaging was obtained in the horizontal long, vertical long, and short axis views. The patient underwent pharmacologic (Regadenoson) evaluation with a peak heart rate of 94 beats per minute (61 % percent predicted maximal heart rate) and a peak blood pressure of 118/60 mmHg. The patient was injected with 44.5 millicuries of technetium 99m Cardiolite and subsequently stress SPECT Cardiolite nuclear imaging was obtained in the horizontal long, vertical long, and short axis views. A gated Cardiolite study at peak stress was obtained. Interpretation: Rest and stress SPECT Cardiolite nuclear imaging status post realignment, normalization, and attenuation correction demonstrate a small area of subtle diminished tracer uptake near the apical segments without significant change between rest and stress. There is end systolic thickening and brightening. The gated Cardiolite study demonstrates myocardial thickening and inward wall motion. The reported LVEF is 72 %. Impression: 1. Rest and stress SPECT Cardiolite nuclear imaging demonstrate myocardial perfusion changes appearing compatible with physiologic apical thinning with no myocardial perfusion changes considered diagnostic for associated stress-induced myocardial ischemia. 2. The gated Cardiolite study reports an LVEF of 72 %. This note was generated with eSentireation software. It may contain incorrect words, spelling, and punctuation that were not noted in checking the note before signing.
== END ==
PROVIDERS: PCP Internal Medicine; Referring Provider Physician Assistant Medical; Visit Provider Physician Assistant Medical
DX: R06.02 Shortness of breath (principal); R07.9 Chest pain, unspecified; I25.10 Atherosclerotic heart disease of native coronary artery without angina pectoris; R53.83 Other fatigue
CPT/HCPCS: 78452; 93017; A9500; A4216; J2785

== ENCOUNTER → 2019-08-23 14:13 | Outpatient (CLI) | payer MEDICARE, OTHER, SELFPAY ==
[2019-08-16 09:50] VITALS: BMI 39.5
[2019-08-23 15:17] LABS: Absolute Lymphocyte Count 1.99 X10^3/uL (0.83-4.51); Absolute Neutrophil Count 4.8 X10^3/uL (2.0-7.7); Basophil# 0.03 X10^3/uL; Basophil% 0.4 % (0-1); Eosinophil# 0.18 X10^3/uL; Eosinophils% 2.3 % (0-5); Hematocrit 37.6 % (40-54); Hemoglobin 11.7 g/dL (13.0-16.5); Lymphocyte # 1.99 X10^3/ul (4.0); Lymphocyte % 25.9 % (19-41); Mean Corp Hgb Conc 31.1 g/dL (32-36); Mean Corpuscular Hgb 28.7 pg (27.0-32.0); Mean Corpuscular Volume 92.2 fL (80-94); Mean Platelet Vol. 8.7 fl (6.2-12.0); Monocyte# 0.63 X10^3/uL; Monocyte% 8.2 % (0-10); NRBC Flagged by Analyzer 0 % (0-5); Neutrophil # 4.83 X10^3/uL (2.7-7.7); Neutrophil % 62.8 % (47-70); Platelet Count 201 K/mm3 (150-450); RBC Distribution Width CV 14.8 % (11.6-14.6); RBC Distribution Width SD 49.6 fl (35.1-43.9); Red Blood Count 4.08 M/mm3 (4.6-6.2); White Blood Count 7.7 K/mm3 (4.4-11.0)
[2019-08-23 16:06] LABS: Prothrombin Time (Protime)PT. 12.5 SECONDS (11.7-14.9)
[2019-08-23 16:09] LABS: Partial Thromboplast Time 27.8 Seconds (24.1-36.2)
[2019-08-23 16:41] LABS: Anion Gap 8 (5-15); BUN 17 mg/dL (7-18); BUN/Creat Ratio 16.8 RATIO (10-20); Calcium,Total 8.5 mg/dL (8.5-10.1); Chloride 101 mmol/L (98-107); Creatinine, Serum 1.01 mg/dL (0.70-1.30); EST Glomerular Filtration Rate 78 mL/min (>60); Est Glom Filt Rate - Afr Amer 95 mL/min (>60); Glucose 110 mg/dL (74-106); Potassium 4.3 mmol/L (3.5-5.1); Sodium Level 135 mmol/L (136-145)
== END ==
PROVIDERS: PCP Internal Medicine; Referring Provider Physician Assistant Medical; Visit Provider Physician Assistant Medical
DX: R07.9 Chest pain, unspecified (principal)
CPT/HCPCS: 36415; 80048; 85025; 85610; 85730

== ENCOUNTER 2019-08-28 09:16 | Day surgery (SDC) | payer MEDICARE, OTHER, SELFPAY ==
[2019-08-16 09:50] VITALS: BMI 39.5
--- NOTE | 2019-08-28 07:52 | HP.PCM_ITS ---
Problem List (1) CAD (coronary artery disease) Status: Acute (2) Presence of stent in coronary artery Status: Chronic Comment: PTCA/RINA to Prox LAD 08/11/05 (3) Prinzmetal angina Status: Acute (4) Hyperlipidemia Status: Chronic Qualifiers: (5) Hypertension Status: Chronic Qualifiers: (6) Pulmonary fibrosis Status: Chronic (7) Bronchiectasis Status: Chronic History and Physical Date of Admission: 08/28/19 [facility] [address] [place] [address] OFFICE VISIT Date of Service: 08/16/19 MR#: [id number] Acct: [id number] Name: YUMIKO TAN Rep #: [id number] : 1950 Provider: ENOCH Leonard Age/Sex: 68/M Location: [facility] [place] Status: Signed HPI HPI History of Present Illness Details: YUMIKO TAN, is a 68 M who presents to the office today for an urgent appt for increased n fatigue and CP. He was last in to see us in 2018. He has a history of underlying CAD status post LAD PCI in 2005. He also has a history of hypertension, prinzmetal angina and hyperlipidemia. Pt sts that over the last few months he has noted a decreased in his exercise tolerance to where it is noticeable for him. He finds that he does not have any energy to so yard work, this is not typical when compared to last year. He finds that he has been more SOB with exertion. He sts that over the last 2 years he has not needed to use his NTG patch that he was using for his prinzmental angina. He now notes that over the last 2 months he has needed to use his patch. He was treated for a URI in the past month- this has not helped his feeling that he is here for today. Intake Vital Signs 08/16/19 Height 5 ft 9 in 08/16/19 Weight: 268 lb 08/16/19 BP 104/69 08/16/19 Blood Pressure Location Lt brachial 08/16/19 Position Sitting 08/16/19 Respiration 20 H 08/16/19 Pulse 88 08/16/19 Pulse Source Monitor 08/16/19 Pulse Oximetry (%) 95 Intake Visit Reasons: CP, LOSS OF ENERGY/COMING IN Board Certified Arts Therapist Required: No Accompanied by: None Is patient in pain?: Yes Allergies iodine Allergy (Verified 08/16/19 14:40) Rash, upset stomach, facial swelling Penicillins Allergy (Verified 08/16/19 14:40) Rash pseudoephedrine HCl [From Actifed] Allergy (Verified 08/16/19 14:40) mood changes triprolidine HCl [From Actifed] Allergy (Verified 08/16/19 14:40) mood changes ibuprofen Adverse Reaction (Verified 08/16/19 14:40) not able to use d/t heart condition Medications Aspirin [Aspirin, Baby] 81 mg PO QHS 06/28/13 [History Confirmed 08/16/19] Montelukast [Singulair] 10 mg PO QHS 06/28/13 [History Confirmed 08/16/19] Pantoprazole Sodium [Protonix] 40 mg PO BID 06/28/13 [History Confirmed 08/16/19] albuterol sulfate 1.25 mg INHALATION Q4H PRN 07/12/17 [History Confirmed 08/16/19] albuterol sulfate 90 mcg/actuation aerosol inhaler 2 puff INHALATION Q4H PRN 07/12/17 [History Confirmed 08/16/19] azelastine 0.15 % (205.5 mcg) nasal spray 1 spray INTRANASAL BID 07/12/17 [History Confirmed 08/16/19] eszopiclone 3 mg tablet 3 mg PO QHS 07/12/17 [History Confirmed 08/16/19] lorazepam 0.5 mg tablet 0.5 mg PO QDAY PRN tab 07/12/17 [History Confirmed 08/16/19] mirabegron 50 mg tablet,extended release 24 hr 50 mg PO QHS 07/12/17 [History Confirmed 08/16/19] buspirone 10 mg tablet 30 mg PO BID tab 07/14/17 [History Confirmed 08/16/19] cholecalciferol (vitamin D3) 50 mcg (2,000 unit) tablet 2,000 unit PO QDAY 07/14/17 [History Confirmed 08/16/19] fluticasone furoate 200 mcg-vilanterol 25 mcg/dose inhalation powder 1 inh INHALATION QDAY 07/14/17 [History Confirmed 08/16/19] lactobacillus combination no.8 3 billion cell capsule 3,000 mmu cells PO QDAY 07/14/17 [History Confirmed 08/16/19] multivitamin 1 tab PO QDAY 07/14/17 [History Confirmed 08/16/19] rosuvastatin 40 mg tablet 40 mg PO QHS 07/14/17 [History Confirmed 08/16/19] tamsulosin 0.4 mg capsule 0.4 mg PO QHS cap 07/14/17 [History Confirmed 08/16/19] venlafaxine 150 mg capsule,extended release 24 hr 150 mg PO QHS 07/14/17 [History Confirmed 08/16/19] venlafaxine 75 mg capsule,extended release 24 hr 75 mg PO QAM cap 07/14/17 [History Confirmed 08/16/19] metformin 500 mg tablet,extended release 24 hr 1,000 mg PO QPM tab 01/10/18 [History Confirmed 08/16/19] Fesoterodine Fumarate [Toviaz] 4 mg PO QHS 01/05/19 [History Confirmed 08/16/19] Vilazodone Hydrochloride [Viibryd] 40 mg PO DAILY 01/05/19 [History Confirmed 08/16/19] nitroglycerin 0.6 mg/hr transdermal 24 hour patch 0.6 mg TRANSDERMAL DAILY PRN #30 ea 02/06/19 [Rx Confirmed 08/16/19] amlodipine 5 mg tablet 5 mg PO DAILY #90 tab 05/14/19 [Rx Confirmed 08/16/19] ranolazine 1,000 mg tablet,extended release,12 hr 1,000 mg PO BID #180 tab 08/16/19 [Rx Confirmed 08/16/19] [facility] Medical History SOB (shortness of breath) (Acute) Abnormal stress test (Acute) Hyperlipidemia (Chronic) Hypertension (Chronic) Prinzmetal angina (Acute) Atherosclerotic heart disease of [place] coronary artery without angina pectoris (Chronic) Anxiety (Chronic) Asthma (Chronic) BPH (benign prostatic hyperplasia) (Chronic) Bronchiectasis (Chronic) Depression (Chronic) GERD (gastroesophageal reflux disease) (Chronic) URIEL (obstructive sleep apnea) (Chronic) Surgical History Presence of stent in coronary artery (Chronic ~08/11/05) Postsurgical percutaneous transluminal coronary angioplasty (PTCA) status (Chronic) History of carpal tunnel surgery (Resolved) History of lithotripsy (Resolved) History of parathyroid surgery (Resolved) History of rotator cuff surgery (Resolved) History of tonsillectomy (Resolved) Family History Father CAD (coronary artery disease) CVA (cerebral vascular accident) Hypertension Alzheimer's dementia Brother Rheumatoid arthritis Brother Cancer non hodgkins lymphoma Social History (Updated 08/19/19 @ 11:05 by ENOCH Mix) Smoking Status: Former smoker how long ago did patient quit smokin years ago alcohol intake: current alcohol intake frequency: a few times a month Alcohol type: beer substance use type: does not use caffeine: Yes Type: coffee Number of servings: 2 ROS Const Const: Positive for fatigue; negative for weakness, fever(s) or headache(s) Eyes Eyes: Negative for blind spots, loss of peripheral vision or transient loss of vision ENT ENT: Negative for headache(s), dizziness, tinnitus or Nosebleed/epistaxis Cardio Chest Pain: Yes Palpitations: Yes Edema: None Muscle aches with walking: None Resp Respiratory: Positive for SOB with activity; negative for SOB at rest, SOB orthopnea\SOB lying down or Cough GI GI: Negative nausea, vomiting, heartburn or vomiting blood/hematemesis : Negative for hematuria Musc Musc: Negative for muscle aches/ myalgia Neuro Neuro: Negative for dizziness, lightheadedness, near syncope, syncope, orthostat ic symptoms, headache(s) or weakness Compa Hematologic/Lymphatic: Negative for easy bleeding Endo Endo: Positive for fatigue Cardiology Exam Const Appearance: cooperative, no acute distress and well developed Orientation: alert, awake and oriented x3 Head Head: normocephalic and atraumatic Mouth: moist mucous membranes Eyes General: appearance normal, both eyes and all related structures Conjunctivae: conjunctivae normal Pupils: PERRL EOM: EOM intact bilaterally Neck Neck: normal visual inspection, no lymphadenopathy and no JVD Carotids: Negative bruit Neck Mass: Negative Neck mass Chest Chest inspection: normal inspection of the chest and symmetric chest movement Auscultation: Bilateral: Clear to Auscultation Cardio Palpation: normal PMI Rate: regular rate Rhythm: regular rhythm Heart sounds: S1 normal and S2 normal; negative rub, gallop or murmur GI GI: normal to inspection, soft, no hepatosplenomegaly and bowel sounds present; negative tender Neuro General: alert, awake, oriented x3, CN's II-XI intact bilaterally and moves all extremities Extremities Pulses: Normal: Right Posterior Tibial Pulse, Left Posterior Tibial Pulse, Right Radial Pulse, Left Radial Pulse Lower Extremity Edema: None: Bilateral Psych Psychological: normal affect Assessment & Plan 1. Atherosclerosis of [place] coronary artery of [place] heart without angina pectoris I25.10 PTCA/RINA to Prox LAD 08/11/05 Plan Patient does have symptoms that are concerning for angina. Would like to obtain a stress test to further evaluate. 2. Prinzmetal angina I20.1 Plan Patient is on Ranexa, he is having worsening symptoms. It appears that he is on 500 mg twice daily. We will have him increase this to thousand milligrams twice daily. Would like to obtain a stress test. Did consider increasing his amlodipine however his blood pressure is on the low side. 3. Essential hypertension I10 Plan Blood pressure is on the low side. We are trying to adjust his Ranexa. Choosing to increase this over his amlodipine due to his lower blood pressure readings. 4. Hyperlipidemia, unspecified hyperlipidemia type E78.5 Plan This is managed by his primary care doctor. He will continue with current high intensity statin. Plan Detail Other Orders Orders: 12 Lead EKG performed by [facility] 08/16/19 R07.9 Nuclear Stress Test - Chemical 08/16/19 R06.02 Other Medications Changed: From: ranolazine ER 500 mg PO BID heart To: ranolazine ER 1,000 mg PO BID 180 tabs 3RF heart Follow Up 2 Months (MMM) Coding Level of Care Code Off vis,est,level 4 Diagnoses Atherosclerosis of [place] coronary artery of [place] heart without angina pectoris I25.10 ??[place] vs. transplanted heart: [place] heart Prinzmetal angina I20.1 Essential hypertension I10 ??Hypertension type: essential hypertension Hyperlipidemia, unspecified hyperlipidemia type E78.5 ??Hyperlipidemia type: unspecified Coding Level of Care Code Off vis,est,level 4 Diagnoses Atherosclerosis of [place] coronary artery of [place] heart without angina pectoris I25.10 ??[place] vs. transplanted heart: [place] heart Prinzmetal angina I20.1 Essential hypertension I10 ??Hypertension type: essential hypertension Hyperlipidemia, unspecified hyperlipidemia type E78.5 ??Hyperlipidemia type: unspecified Supplemental Info Supplemental Information Echocardiogram in 2018 demonstrated: The study was technically difficult. Contrast injection was performed. Segmental dysfunction with preserved ejection fraction (see wall motion). The estimated ejection fraction is 60 %. Trivial mitral valve insufficiency. Trivial tricuspid valve insufficiency. Mild (1+) pulmonic valve insufficiency. Right ventricular systolic pressure estimated to be 30 mmHg. Normal diastology for age. Stress test in 2018 demonstrated: Stress nuclear study: imaging concerning for changes in the inferior distribution. Heart cath in 2018 demonstrated: Elevated Left Ventricular End Diastolic Pressure Normal LV size, wall motion,and systolic function LVEF: by LV gram 65 % [place] Multivessel CAD LAD stent: patent DX stent: patent RECOMMENDATIONS Risk factor modification Medical therapy CORONARY ANGIOGRAPHY DOMINANCE: Right Dominant LEFT HEART ASSESSMENT Left Ventricular Ejection Fraction: by LV Gram 65 % Normal LV wall motion Elevated Left Ventricular End Diastolic Pressure LVEDP: 25 mmHg LEFT MAIN: Angiographically normal LEFT ANTERIOR DECENDING ARTERY: MID LAD: Previously placed stent appears oversized and is patent with minimal luminal irregularities. DIAGONAL 1: Proximal - Previously placed stent is patent with minimal luminal irregularities CIRCUMFLEX ARTERY: PROX CIRC: Mild calcification, Mild luminal irregularities RIGHT CORONARY ARTERY: Mild luminal irregularities VALVE FINDINGS: Normal Aortic Valve function Normal Mitral Valve function AORTIC ROOT: Angiographically normal Diagnostics Electrocardiogram 08/16/19 Chest X-Ray 05/19/19 08/19/19 1105 <Electronically signed by Sabra Matthew> Date _ Sabra KENDALL I have examined the patient the following changes are noted: The patient subsequently underwent additional evaluation with an exercise tole pat test/nuclear imaging study. The results are as noted below. Stress Test Report Date: 08-21-2019 Procedure: Pharmacologic stress nuclear imaging study Indications: Chest pain; fatigue; CAD; PCI Consent: Per the patient Procedure: The patient underwent pharmacologic (Regadenoson) evaluation with a peak heart rate of 94 beats per minute (61 %predicted maximal heart rate) and a peak blood pressure of 118/60 mmHg. The baseline ECG demonstrated sinus rhythm; right bundle branch block. The peak pharmacologic ECG demonstrated no obvious ECG changes. There were no cardiac dysrhythmias pretest, during pharmacologic infusion, or recovery. There was no complaint of chest discomfort during pharmacologic infusion or recovery. The examination was discontinued secondary to completion of protocol. Impression: 1. Pharmacologic (Regadenoson) evaluation 2. Peak pharmacologic ECG with continued right bundle branch block with no obvious ECG changes. 3. There were no cardiac dysrhythmias pretest, during pharmacologic infusion, or recovery. 4. Nuclear images pending Myocardial perfusion imaging study: Technique: The patient was injected with 14.8 millicuries of technetium 99m Cardiolite and subsequently rest SPECT Cardiolite nuclear imaging was obtained in the horizontal long, vertical long, and short axis views. The patient underwent pharmacologic (Regadenoson) evaluation with a peak heart rate of 94 beats per minute (61 % percent predicted maximal heart rate) and a peak blood pressure of 118/60 mmHg. The patient was injected with 44.5 millicuries of technetium 99m Cardiolite and subsequently stress SPECT Cardiolite nuclear imaging was obtained in the horizontal long, vertical long, and short axis views. A gated Cardiolite study at peak stress was obtained. Interpretation: Rest and stress SPECT Cardiolite nuclear imaging status post realignment, normalization, and attenuation correction demonstrate a small area of subtle diminished tracer uptake near the apical segments without significant change between rest and stress. There is end systolic thickening and brightening. The gated Cardiolite study demonstrates myocardial thickening and inward wall motion. The reported LVEF is 72 %. Impression: 1. Rest and stress SPECT Cardiolite nuclear imaging demonstrate myocardial perfusion changes appearing compatible with physiologic apical thinning with no myocardial perfusion changes considered diagnostic for associated stress-induced myocardial ischemia. 2. The gated Cardiolite study reports an LVEF of 72 %. This note was generated with [employer] software. It may contain incorrect words, spelling, and punctuation that were not noted in checking the note before signing. 08/21/19 9113 <Electronically signed by Remigio gaona MD> Date _ Remigio Lares MD The patient continues with concerns of chest discomfort, dyspnea on exertion, and fatigue, despite medical adjustment. Thus based upon the patient's clinical course, his previous diagnosis, despite his stress nuclear findings demonstrating a lack of obvious evidence of stress-induced myocardial ischemia, with no other etiology for his symptoms, it was elected to consider further evaluation with diagnostic cardiac catheterization. The procedure and risks were discussed with the patient. He was agreeable to this approach. Procedure Criteria Procedure Type: Elective COVID Risk Discussion: The surgeon/proceduralist and patient have discussed in detail the risk of exposure to and/or potential harm posed by the COVID-19 virus with having a surgery/procedure at this time versus the risk of delaying the surgery/procedure. It is not possible to know either the risk of delaying the surgery or procedure or chance of getting an infection with perfect accuracy, but a joint decision was made between the patient and the surgeon/proceduralist to proceed at this time with the scheduled surgery/procedure as indicated on the consent form.
[2019-08-28 09:21] VITALS: BMI 39.5
--- NOTE | 2019-08-28 11:24 | CL.D_ITS ---
Patient Name: YUMIKO TAN Study Date: 08/28/2019 Performing: Remigio Lares MD Ht: 68.89 inches 175 cm : 1950 Wt: 268.96 lbs 122 kg Age: 68 Gender: male BSA: 2.34 PROCEDURE(S) PERFORMED YH95-PIU/COR/LV CLINICAL PROFILE AND INDICATIONS Indications: Worsening Angina Heart Failure: None Stress/Imaging Date: 08/21/2019Stress Test with SPECT MPI: Negative Angina Classification Anginal Classification w/in 2 Weeks: CCS IV CAD Presentations: Unstable angina. CONCLUSIONS Elevated Left Ventricular End Diastolic Pressure Normal LV size, wall motion,and systolic function LVEF: by LV gram 65 % [place] Multivessel CAD LAD stent: patent DX1 stent: patent RECOMMENDATIONS Risk factor modification Medical therapy Case discussed / reviewed with Quique Le MD, of interventional cardiology DESCRIPTION OF PROCEDURE The patient arrived to the procedure lab. The risks and benefits of the procedure as well as a full d escription of our services here and current unavailability of surgical backup were fully explained to the patient and/or their significant other prior to the catheterization. The Timeout was completed, verifying the correct patient and procedure. The patient's procedural site was prepped and draped in the usual fashion. Local anesthetic was given subcutaneously to right groin region with Lidocaine 2%. Using a modified Seldinger technique, arterial access was obtained via the right femoral artery, a 4 Fr sheath was inserted Left Coronary Artery selective angiography was performed in multiple views us ing a 4 Fr. JL5 catheter. Right Coronary Artery selective angiography was then performed in multiple views using a 4 Fr. 3DRC catheter. Left Ventriculography was performed in MELLO projection using a 4 Fr . Pigtail catheter. LV to AO pullback pressures were then recorded.The arterial sheath was pulled and manual compression applied until hemostasis is achieved. CORONARY ANGIOGRAPHY DOMINANCE: Right Dominant LEFT HEART ASSESSMENT Left Ventricular Ejection Fraction: by LV Gram 65 % Normal LV wall motion Elevated Left Ventricular End Diastolic Pressure LVEDP: 19 mmHg LEFT MAIN: Angiographically normal LEFT ANTERIOR DESCENDING ARTERY: PROX LAD: Mild calcification MID LAD: Previously placed stent is patent with angiographic evidence of ectatic / aneurysmal areas DIAGONAL 1: Proximal - Previously placed stent is patent with mild luminal irregularities CIRCUMFLEX ARTERY: Mild luminal irregularities PROX CIRC: Mild calcification RIGHT CORONARY ARTERY: Mild luminal irregularities AORTIC ROOT: Angiographically normal COMPLICATIONS No Complications PROCEDURE MEDICATIONS Versed 1 mg IV Oxygen: 2 L/min via nasal cannula Solu-medrol 125 mg IV 08/28/2019 10:35:20 SUMMARY OF HEMODYNAMIC DATA Time AIR REST ECG 09:36:49 AO 116/68 (90) SA 10:50:59 LV 152/-8, 19 10:58:43 LV 147/-10, 15 10:58:48 LV 147/1, 25 10:59:49 LV 145/-11, 19 10:59:55 LVp 145/-12, 19 11:00:02 AOp 148/68 (97) 11:00:07 Signed By Remigio Lares MD On 08/28/2019 11:23:23 Remigio Lares MD
== END 2019-08-28 15:40 | disposition home or self-care (01) ==
LOC: CLSP 09:17
PROVIDERS: PCP Internal Medicine; Referring Provider Internal Medicine Cardiovascular Disease; Visit Provider Internal Medicine Cardiovascular Disease
DX: I25.111 Atherosclerotic heart disease of native coronary artery with angina pectoris with documented spasm (principal); I10 Essential (primary) hypertension; E78.5 Hyperlipidemia, unspecified; R73.03 Prediabetes; Z95.5 Presence of coronary angioplasty implant and graft; J84.10 Pulmonary fibrosis, unspecified; J47.9 Bronchiectasis, uncomplicated; N40.0 Benign prostatic hyperplasia without lower urinary tract symptoms; G47.33 Obstructive sleep apnea (adult) (pediatric); K21.9 Gastro-esophageal reflux disease without esophagitis; F32.9 Major depressive disorder, single episode, unspecified; F41.9 Anxiety disorder, unspecified; Z79.82 Long term (current) use of aspirin; Z79.84 Long term (current) use of oral hypoglycemic drugs; Z79.899 Other long term (current) drug therapy; Z87.891 Personal history of nicotine dependence
CPT/HCPCS: 93458; 99152; 99153; J7040; Q9967; C1769; C1894

== ENCOUNTER → 2019-08-30 12:04 | Outpatient (CLI) | payer MEDICARE, OTHER, SELFPAY ==
[2019-08-28 09:21] VITALS: BMI 39.5
[2019-08-30 13:31] LABS: Anion Gap 7 (5-15); BUN 18 mg/dL (7-18); BUN/Creat Ratio 19.8 RATIO (10-20); Calcium,Total 8.4 mg/dL (8.5-10.1); Chloride 102 mmol/L (98-107); Creatinine, Serum 0.91 mg/dL (0.70-1.30); EST Glomerular Filtration Rate 88 mL/min (>60); Est Glom Filt Rate - Afr Amer 107 mL/min (>60); Glucose 104 mg/dL (74-106); Potassium 3.7 mmol/L (3.5-5.1); Sodium Level 136 mmol/L (136-145)
== END ==
PROVIDERS: PCP Internal Medicine; Referring Provider Internal Medicine Cardiovascular Disease; Visit Provider Internal Medicine Cardiovascular Disease
DX: I25.10 Atherosclerotic heart disease of native coronary artery without angina pectoris (principal); I10 Essential (primary) hypertension; E78.5 Hyperlipidemia, unspecified; R73.03 Prediabetes; Z95.5 Presence of coronary angioplasty implant and graft
CPT/HCPCS: 36415; 80048

== ENCOUNTER 2019-11-05 07:54 | Day surgery (SDC) | payer MEDICARE, OTHER, SELFPAY ==
[2019-10-24 15:14] VITALS: BMI 39.5
--- NOTE | 2019-10-25 01:48 | HP_ITS ---
Intake Vital Signs 10/24/19 BMI 39.5 10/24/19 Height 5 ft 9.5 in 10/24/19 Weight: 267 lb 10/24/19 BMI 38.8 10/24/19 BP 132/68 H 10/24/19 Blood Pressure Location Rt brachial 10/24/19 Position Sitting 10/24/19 Respiration 16 10/24/19 Pulse 87 10/24/19 Pulse Source Monitor 10/24/19 Temp 97.1 F L 10/24/19 Temp Source Temporal 10/24/19 Pulse Oximetry (%) 93 10/24/19 Oxygen Delivery Method room air Intake Visit Reasons: C-Scope Consult Anemia & Abdominal Pain Loan Expeditor Required: No Is patient in pain?: No Allergies iodine Allergy (Verified 10/24/19 15:11) Rash, upset stomach, facial swelling Penicillins Allergy (Verified 10/24/19 15:11) Rash pseudoephedrine HCl [From Actifed] Allergy (Verified 10/24/19 15:11) mood changes triprolidine HCl [From Actifed] Allergy (Verified 10/24/19 15:11) mood changes ibuprofen Adverse Reaction (Verified 10/24/19 15:11) not able to use d/t heart condition Medications Aspirin [Aspirin, Baby] 81 mg PO QHS 06/28/13 [History Confirmed 10/24/19] Montelukast [Singulair] 10 mg PO QHS 06/28/13 [History Confirmed 10/24/19] Pantoprazole Sodium [Protonix] 40 mg PO BID 06/28/13 [History Confirmed 10/24/19] albuterol sulfate 1.25 mg INHALATION Q4H PRN 07/12/17 [History Confirmed 10/24/19] albuterol sulfate 90 mcg/actuation aerosol inhaler 2 puff INHALATION Q4H PRN 07/12/17 [History Confirmed 10/24/19] azelastine 0.15 % (205.5 mcg) nasal spray 1 spray INTRANASAL BID 07/12/17 [History Confirmed 10/24/19] eszopiclone 3 mg tablet 3 mg PO QHS 07/12/17 [History Confirmed 10/24/19] lorazepam 0.5 mg tablet 0.5 mg PO QDAY PRN tab 07/12/17 [History Confirmed 10/24/19] mirabegron 50 mg tablet,extended release 24 hr 50 mg PO QHS 07/12/17 [History Confirmed 10/24/19] buspirone 10 mg tablet 30 mg PO BID tab 07/14/17 [History Confirmed 10/24/19] cholecalciferol (vitamin D3) 50 mcg (2,000 unit) tablet 2,000 unit PO QDAY 07/14/17 [History Confirmed 10/24/19] fluticasone furoate 200 mcg-vilanterol 25 mcg/dose inhalation powder 1 inh INHALATION QDAY 07/14/17 [History Confirmed 10/24/19] lactobacillus combination no.8 3 billion cell capsule 3,000 mmu cells PO QDAY 07/14/17 [History Confirmed 10/24/19] multivitamin 1 tab PO QDAY 07/14/17 [History Confirmed 10/24/19] rosuvastatin 40 mg tablet 40 mg PO QHS 07/14/17 [History Confirmed 10/24/19] tamsulosin 0.4 mg capsule 0.4 mg PO QHS cap 07/14/17 [History Confirmed 10/24/19] venlafaxine 150 mg capsule,extended release 24 hr 150 mg PO QHS 07/14/17 [History Confirmed 10/24/19] venlafaxine 75 mg capsule,extended release 24 hr 75 mg PO QAM cap 07/14/17 [History Confirmed 10/24/19] metformin 500 mg tablet,extended release 24 hr 1,000 mg PO QPM tab 01/10/18 [History Confirmed 10/24/19] Fesoterodine Fumarate [Toviaz] 4 mg PO QHS 01/05/19 [History Confirmed 10/24/19] Vilazodone Hydrochloride [Viibryd] 40 mg PO DAILY 01/05/19 [History Confirmed 10/24/19] ranolazine 1,000 mg tablet,extended release,12 hr 1,000 mg PO BID #180 tab 08/16/19 [Rx Confirmed 10/24/19] amlodipine 5 mg tablet 5 mg PO BID #180 tab 08/22/19 [Rx Confirmed 10/24/19] isosorbide mononitrate 30 mg tablet,extended release 24 hr 30 mg PO DAILY #90 tab 08/28/19 [Rx Confirmed 10/24/19] nitroglycerin 0.4 mg sublingual tablet 0.4 mg SUBLINGUAL Q5-15M PRN #25 tab 10/17/19 [Rx Confirmed 10/24/19] [facility] Medical History BPH (benign prostatic hyperplasia) (Chronic) Anxiety (Chronic) Depression (Chronic) Bronchiectasis (Chronic) History of left heart catheterization (LHC) (Resolved ~08/28/19) Type 2 diabetes mellitus (Chronic) Essential hypertension (Chronic) GERD (gastroesophageal reflux disease) (Chronic) Asthma (Chronic) URIEL (obstructive sleep apnea) (Chronic) Pulmonary fibrosis (Chronic) Bronchiectasis (Chronic) SOB (shortness of breath) (Acute) Abnormal stress test (Acute) Presence of stent in coronary artery (Chronic ~08/11/05) Hyperlipidemia (Chronic) 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 Quique Pemberton MD) Smoking Status: Former smoker how long ago did patient quit smokin years ago alcohol intake: current alcohol intake frequency: a few times a month Alcohol type: beer substance use type: does not use caffeine: Yes Type: coffee Number of servings: 2 HPI HPI Surgical H&P: Yes HPI: YUMIKO TAN, is a 69 M who presents to the office today for Evaluation of heme positive stools. Over the last month the patient has noticed that his stools have been much darker. He has had them tested and they have come back as heme positive. In addition his hemoglobin is 11.8. He had a colonoscopy that was completed back in August 2015 he had some small polyps at that time which were benign. Patient has also had some mid abdominal discomfort no nausea or vomiting he is currently taking aspirin without foods. ROS General General: Yes weight change, appetite and fatigue; no colon cancer, breast cancer or weakness HEENT HEENT: No difficulty swallowing, eye injury, eye surgery, swollen glands or hoarseness Endo Endocrine: Yes diabetes mellitus; no thyroid disease, thyroid cancer, Hair loss, heat intolerance or cold intolerance Skin Skin: No rash or changing moles Musc Musculoskeletal: Yes back problems; no arthritis, rheumatoid arthritis, gout or joint pain Cardio Cardiovascular: Yes heart disease, high blood pressure and heart stent; no murmur, pacemaker, atrial fibrillation, heart attack, palpitations, shortness of breat with exertion or chest pain Psych Psychiatric: Yes depression and anxiety; no hearing voices Resp Respiratory: Yes shortness of breath, Yes sleep apnea, Yes cough, Yes COPD, Yes asthma Gastro Gastrointestinal: Yes abdominal pain, No nausea or vomiting, No diarrhea, Yes constipation, Yes blood in stool, Yes acid reflux, No hemorrhoids, No ulcers, No gallbladder problem, No black,tarry stools Compa Hematologic: Yes blood thinners, No blood disorders, No bleeding, Yes anemia, No blood clots Neuro Neurologic: No weakness Exam Const General: no acute distress, well developed, well hydrated Orientation: oriented to person, oriented to place, oriented to time [facility] Head: normocephalic, atraumatic Ears: external ears normal Mouth: moist mucous membranes Eyes Sclera: sclerae normal Pupils: normal by confrontation Neck Neck: no lymphadenopathy noted Neck mass: No Thyroid: thyroid normal, symmetrical Chest Chest palpation & inspection: normal inspection of the chest Resp Effort & Inspection: normal respiratory effort Auscultation: wheezes expiratory wheezes Percussion: percussion normal Cardio Rate: regular rate Rhythm: regular rhythm Heart Sounds: no murmurs GI Palpation: soft, no hepatosplenomegaly, no masses, nontender Rectal Exam: other Other: Rectal exam deferred. Extrem General: normal to inspection, no clubbing, cyanosis or edema Assessment & Plan Problems 1. Iron deficiency anemia due to chronic blood loss D50.0 2. Heme positive stool R19.5 3. Generalized abdominal pain R10.84 Plan I have discussed the above with the patient. I have offered the patient colonoscopy As well as an EGD for evaluation. I have explained the risks/benefits of the procedure and described the procedure. I have discussed the risks with the patient, including but not limited to: infection, bleeding, perforation of the GI tract requiring emergency surgery, inability to complete the procedure, injury to any internal organs, complications of anesthesia, etc. - the patient understands and agrees to proceed. I have answered all the patient's questions to the patient's satisfaction and the patient has no further questions. The patient has been given instructions for the colon cleansing preparation. Coding Level of Care Code Off vis,new,level 3 Diagnoses Iron deficiency anemia due to chronic blood loss D50.0 ??Anemia type: iron deficiency ??Iron deficiency anemia type: chronic blood loss Heme positive stool R19.5 Generalized abdominal pain R10.84 COVID (Procedure Consent) Procedure Criteria Procedure Criteria: Yes Elective The surgeon/proceduralist and patient have discussed in detail the risk of exposure to and/or potential harm posed by the COVID-19 virus with having a surgery/procedure at this time versus the risk of? delaying the surgery/procedure. It is not possible to know either the risk of delaying the surgery or procedure or chance of getting an infection with perfect accuracy, but a joint decision was made between the patient and the surgeon/proceduralist ?to proceed at this time with the scheduled surgery/procedure as indicated on the consent form. 10/25/19 1348 <Electronically signed by Quique liriano MD> Date _ Quique Pemberton MD I have re-examined the patient. There are no clinical changes since date of exam.
[2019-11-05] VITALS (7 sets, daily range): BP systolic 100–105; BP diastolic 67–71; PULSE 71–82; RESP 16–18; TEMP 36.2–36.7; O2SAT 92–95; BMI 38.6
[2019-11-05] MEDS: Lactated Ringers 1,000 ML 100 ML IV (08:31)
--- NOTE | 2019-11-05 08:45 | COLBX_PTH ---
PATIENT: YUMIKO TAN LOC: EN U#:[id number] AGE/SX: 69/M ROOM: RE11/05/[address]: Dr. Quique Pemberton MD : 1950 BED: DIS: 11/05/2019 SPEC #: [id number] RECD: 11/05/19 09:59 STATUS: SWETHA SIMRAN #: [id number] EYAD: 11/05/19 08:[address]: Quique Pemberton DEPT: SURGICAL PATHOLOGY RECD BY: Alecia Villa ENTERED: 11/05/19 10:15 SP TYPE: COLON BX OTHR DR: Dr. Adelaida Fraga DO Tissues: Transverse colon Procedures: Surgery Specimen Level IV HEADER OPERATION: Colonoscopy, EGD ([facility]) PRE-OP DIAGNOSIS: Iron deficiency anemia, heme-positive stool, generalized abdomen pain TISSUE SUBMITTED: Transverse polyp MICROSCOPIC DIAGNOSIS Transverse colon polyp, biopsy: Tubular adenoma. AM:momo 9/15/20 MICROSCOPIC DESCRIPTION Slides are reviewed. GROSS DESCRIPTION Received in fixative is one container labeled with the patient's name and designated transverse colon polyp. The specimen consists of one irregular fragment of light jorge soft tissue that measures 0.2 x 0.1 x 0.1 cm. The specimen is totally submitted in one cassette. / AM:momo 11/05/19 TC:5 CPT: 08468
--- NOTE | 2019-11-05 09:15 | OP.CCLET_ITS ---
11/05/2019 Adelaida Fraga Re : Upper GI endoscopy procedure for Rigoberto Fraga This procedure was performed on Tuesday, November 05, 2019. My impressions and recommendations are as follows: Impressions : - Normal esophagus. No specimens collected. - Normal stomach. No specimens collected. - Normal examined duodenum. No specimens collected. Recommendations : - Discharge patient to home. - Resume previous diet. - Continue present medications. - Repeat upper endoscopy (date not yet determined) for surveillance. - Return to my office in 1 week. My findings are described in the full procedure note, which is enclosed. If I can be of further assistance, please feel free to contact me at Doctor phone number(s): , Fax: [phone], Work: . Sincerely, MD Quique Ghosh MD 11/05/2019 9:14:35 AM This report has been signed electronically.
--- NOTE | 2019-11-05 09:15 | OP.EGD_ITS ---
Patient Name: Rigoberto Landrum Procedure Date: 11/05/2019 8:36 AM Date of : 1950 Age: 69 Procedure: Upper GI endoscopy Indications: Generalized abdominal pain, Iron deficiency anemia, Heme positive stool Providers: Quique Pemberton MD Referring MD: Adelaida Fraga Medicines: See the Anesthesia note for documentation of the administered medications Patient Profile: This is a 69 year old male. Refer to note in patient chart for documentation of history and physical. Complications: No immediate complications. Procedure: Pre-Anesthesia Assessment: - Prior to the procedure, a History and Physical was performed, and patient medications and allergies were reviewed. The patient's tolerance of previous anesthesia was also reviewed. The risks and benefits of the procedure and the sedation options and risks were discussed with the patient. All questions were answered, and informed consent was obtained. Prior Anticoagulants: The patient has taken aspirin, last dose was 7 days prior to procedure. ASA Grade Assessment: III - A patient with severe systemic disease. After reviewing the risks and benefits, the patient was deemed in satisfactory condition to undergo the procedure. After obtaining informed consent, the endoscope was passed under direct vision. Throughout the procedure, the patient's blood pressure, pulse, and oxygen saturations were monitored continuously. The gastroscope was introduced through the mouth, and advanced to the second part of duodenum. The upper GI endoscopy was accomplished without difficulty. The patient tolerated the procedure well. Scope In: 8:47:35 AM Scope Out: 8:49:44 AM Total Procedure Duration Time 0 hours 2 minutes 9 seconds Findings: The examined esophagus was normal. No biopsies or other specimens were collected for this exam. The entire examined stomach was normal. No biopsies or other specimens were collected for this exam. The examined duodenum was normal. No biopsies or other specimens were collected for this exam. Impression: - Normal esophagus. No specimens collected. - Normal stomach. No specimens collected. - Normal examined duodenum. No specimens collected. Recommendation: - Discharge patient to home. - Resume previous diet. - Continue present medications. - Repeat upper endoscopy (date not yet determined) for surveillance. - Return to my office in 1 week. Procedure Code(s): --- Professional --- 16227, Esophagogastroduodenoscopy, flexible, transoral; diagnostic, including collection of specimen(s) by brushing or washing, when performed (separate procedure) Diagnosis Code(s): --- Professional --- R10.84, Generalized abdominal pain D50.9, Iron deficiency anemia, unspecified R19.5, Other fecal abnormalities CPT copyright 2017 [employer]. All rights reserved. The codes documented in this report are preliminary and upon firefighter type one review may be revised to meet current compliance requirements. MD Quique Ghosh MD 11/05/2019 9:14:35 AM This report has been signed electronically. Number of Addenda: 0 Note Initiated On: 11/05/2019 8:36 AM
--- NOTE | 2019-11-05 09:18 | OP.COLON_ITS ---
Patient Name: Rigoberto Landrum Procedure Date: 11/05/2019 8:50 AM Date of : 1950 Age: 69 Procedure: Colonoscopy Indications: Generalized abdominal pain, Heme positive stool Providers: Quique Pemberton MD Referring MD: Adelaida Fraga Medicines: See the Anesthesia note for documentation of the administered medications Patient Profile: This is a 69 year old male. Refer to note in patient chart for documentation of history and physical. Last Colonoscopy: 2015. Complications: No immediate complications. Procedure: Pre-Anesthesia Assessment: - Prior to the procedure, a History and Physical was performed, and patient medications and allergies were reviewed. The patient's tolerance of previous anesthesia was also reviewed. The risks and benefits of the procedure and the sedation options and risks were discussed with the patient. All questions were answered, and informed consent was obtained. Prior Anticoagulants: The patient has taken aspirin, last dose was 7 days prior to procedure. ASA Grade Assessment: III - A patient with severe systemic disease. After reviewing the risks and benefits, the patient was deemed in satisfactory condition to undergo the procedure. After I obtained informed consent, the scope was passed under direct vision. Throughout the procedure, the patient's blood pressure, pulse, and oxygen saturations were monitored continuously. The adult colonoscope was introduced through the anus with the intention of advancing to the cecum. The scope was advanced to the hepatic flexure before the procedure was aborted. Medications were given. The colonoscopy was aborted due to the extreme difficulty of the procedure. Scope In: 8:52:16 AM Scope Withdrawal Time 0 hours 4 minutes 2 seconds Scope Out: 9:09:18 AM Total Procedure Duration Time 0 hours 17 minutes 2 seconds Findings: Copious quantities of semi-liquid semi-solid stool was found in the entire colon, precluding visualization. Lavage of the area was performed using a small amount of normal saline, resulting in incomplete clearance with continued poor visualization. A 10 mm polyp was found in the transverse colon. The polyp was sessile. The polyp was removed with a hot snare. Resection and retrieval were complete. Impression: - The procedure was aborted due to the extreme difficulty of the procedure. - Stool in the entire examined colon. - One 10 mm polyp in the transverse colon, removed with a hot snare. Resected and retrieved. Recommendation: - Await pathology results. - Repeat colonoscopy at appointment to be scheduled because the examination was incomplete. - Return to my office in 1 week. - Continue present medications. Procedure Code(s): --- Professional --- 70914, 52, Colonoscopy, flexible; with removal of tumor(s), polyp(s), or other lesion(s) by snare technique Diagnosis Code(s): --- Professional --- Z53.8, Procedure and treatment not carried out for other reasons D12.3, Benign neoplasm of transverse colon (hepatic flexure or splenic flexure) R10.84, Generalized abdominal pain R19.5, Other fecal abnormalities CPT copyright 2017 [employer]. All rights reserved. The codes documented in this report are preliminary and upon professional fee coder review may be revised to meet current compliance requirements. MD Quique Ghosh MD 11/05/2019 9:17:57 AM This report has been signed electronically. Number of Addenda: 0 Note Initiated On: 11/05/2019 8:50 AM
--- NOTE | 2019-11-05 09:18 | OP.CCLET_ITS ---
11/05/2019 Adelaida Fraga Re : Colonoscopy procedure for Rigoberto Fraga This procedure was performed on Tuesday, November 05, 2019. My impressions and recommendations are as follows: Impressions : - The procedure was aborted due to the extreme difficulty of the procedure. - Stool in the entire examined colon. - One 10 mm polyp in the transverse colon, removed with a hot snare. Resected and retrieved. Recommendations : - Await pathology results. - Repeat colonoscopy at appointment to be scheduled because the examination was incomplete. - Return to my office in 1 week. - Continue present medications. My findings are described in the full procedure note, which is enclosed. If I can be of further assistance, please feel free to contact me at Doctor phone number(s): , Fax: [phone], Work: . Sincerely, MD Quique Ghosh MD 11/05/2019 9:17:57 AM This report has been signed electronically.
[2019-11-05 09:26] LABS: Bedside Glucose 130 mg/dL (70-110)
== END 2019-11-05 10:26 | disposition home or self-care (01) ==
LOC: EN 07:54 → AC 07:54
PROVIDERS: Anesthesiology; PCP Internal Medicine; Referring Provider Internal Medicine; Visit Provider Surgery
PROC: 0DJD8ZZ Inspection of Lower Intestinal Tract, Via Natural or Artificial Opening Endoscopic (ICD-10-PCS; CPT 45378; principal; 2019-11-05 08:40)
DX: D12.3 Benign neoplasm of transverse colon (principal); D50.0 Iron deficiency anemia secondary to blood loss (chronic); R19.5 Other fecal abnormalities; Z11.59 Encounter for screening for other viral diseases; I25.118 Atherosclerotic heart disease of native coronary artery with other forms of angina pectoris; I20.1 Angina pectoris with documented spasm; J47.9 Bronchiectasis, uncomplicated; E11.9 Type 2 diabetes mellitus without complications; I10 Essential (primary) hypertension; E78.5 Hyperlipidemia, unspecified; J45.909 Unspecified asthma, uncomplicated; K21.9 Gastro-esophageal reflux disease without esophagitis; G47.33 Obstructive sleep apnea (adult) (pediatric); N40.0 Benign prostatic hyperplasia without lower urinary tract symptoms; F32.9 Major depressive disorder, single episode, unspecified; F41.9 Anxiety disorder, unspecified; Z79.82 Long term (current) use of aspirin; Z79.84 Long term (current) use of oral hypoglycemic drugs; Z87.19 Personal history of other diseases of the digestive system; Z87.891 Personal history of nicotine dependence; Z95.5 Presence of coronary angioplasty implant and graft; Z79.51 Long term (current) use of inhaled steroids; Z79.52 Long term (current) use of systemic steroids; Z79.899 Other long term (current) drug therapy; Z53.9 Procedure and treatment not carried out, unspecified reason
CPT/HCPCS: 43235; 45385; 82962; 87635; 88305; C9803; J7120; J2405; U0003

== ENCOUNTER → 2019-11-15 14:37 | Outpatient (CLI) | payer MEDICARE, OTHER, SELFPAY ==
[2019-11-05 08:12] VITALS: BMI 38.6
--- NOTE | 2019-11-15 14:40 | CT_ITS ---
STUDY: CT ABDOMEN AND PELVIS WITHOUT CONTRAST REASON FOR EXAM: Male, 69 years old. ANEMIC. BLOOD IN STOOL WITH CRAMPING X 6 MONTHS. HAD COLONOSCOPY LAST WEEK FOUND POLYP RADIATION DOSAGE (If Supplied By Facility): CTDIvol = ( 22.82 ) mGy, DLP = ( 1185.65 ) mGycm TECHNIQUE: Transaxial images were obtained from the dome of the diaphragm to the symphysis pubis without oral contrast, and without intravenous contrast. Sagittal and coronal images were reconstructed. Individualized dose optimization techniques were used for this CT. COMPARISON: Comparison is made with prior study dated 10/05/2010. FINDINGS: Bibasilar scarring with bronchiectasis. This is more prominent at the right lung base. Coronary artery calcification. Normal liver. Normal gallbladder and extrahepatic biliary system. Normal spleen. Normal pancreas. Normal bilateral adrenal glands. 2 mm nonobstructive calculus in the mid posterior pole calyx of the right kidney. Normal left kidney. Normal visualized stomach. Normal small intestine. Large amount of fecal material is seen in the right hemicolon. The appendix is visualized and appears normal. There is diffuse atherosclerotic calcification of the abdominal aorta and the major visceral branches, without a demonstrated aneurysm. Normal inferior vena cava. Normal retroperitoneum. Normal urinary bladder. Normal abdominal wall. The space narrowing at the L5-S1 level. CT/Abdomen/Pel W ORAL Cont Only IMPRESSION: Large amount of fecal material is seen in the right hemicolon. Tiny nonobstructive intrarenal calcification on the right side. Findings suggestive of bibasilar scarring and bronchiectasis more prominent on the right side. Electronically Signed: Wilfredo Awan, at 15:07 EDT , Service support ,
== END ==
PROVIDERS: PCP Internal Medicine; Referring Provider Surgery; Visit Provider Surgery
DX: R10.9 Unspecified abdominal pain (principal)
CPT/HCPCS: 74176

== ENCOUNTER → 2019-11-26 13:34 | Outpatient (CLI) | payer MEDICARE, OTHER, SELFPAY ==
[2019-11-05 08:12] VITALS: BMI 38.6
[2019-11-26 14:57] LABS: Absolute Lymphocyte Count 2.49 X10^3/uL (0.83-4.51); Absolute Neutrophil Count 4.5 X10^3/uL (2.0-7.7); Basophil# 0.03 X10^3/uL; Basophil% 0.4 % (0-1); Eosinophil# 0.13 X10^3/uL; Eosinophils% 1.7 % (0-5); Hematocrit 36.6 % (40-54); Hemoglobin 11.3 g/dL (13.0-16.5); Lymphocyte # 2.49 X10^3/ul (4.0); Mean Corp Hgb Conc 30.9 g/dL (32-36); Mean Corpuscular Hgb 27.5 pg (27.0-32.0); Mean Corpuscular Volume 89.1 fL (80-94); Mean Platelet Vol. 8.3 fl (6.2-12.0); Monocyte# 0.51 X10^3/uL; Monocyte% 6.6 % (0-10); NRBC Flagged by Analyzer 0 % (0-5); Neutrophil # 4.47 X10^3/uL (2.7-7.7); Neutrophil % 57.5 % (47-70); Platelet Count 370 K/mm3 (150-450); RBC Distribution Width CV 15.9 % (11.6-14.6); RBC Distribution Width SD 52.3 fl (35.1-43.9); Red Blood Count 4.11 M/mm3 (4.6-6.2); White Blood Count 7.8 K/mm3 (4.4-11.0)
[2019-11-26 14:58] LABS: Erythrocyte Sedimentation Rate 114 mm/hr (0-20)
[2019-11-26 15:15] LABS: Hemoglobin A1c 6.5 % (3.8-5.6)
[2019-11-26 16:28] LABS: ALB/GLOB Ratio 0.6 RATIO (0.9-2.4); AST(SGOT) 9 U/L (15-37); Alanine Aminotransfer ALT/SGPT 14 U/L (16-61); Albumin, Serum 2.9 g/dL (3.2-5.0); Alkaline Phosphatase 58 U/L (45-117); Anion Gap 7 (5-15); BUN 13 mg/dL (7-18); BUN/Creat Ratio 14.2 RATIO (10-20); CRP 6.44 mg/L (0.0-3.0); Calcium,Total 8.9 mg/dL (8.5-10.1); Chloride 104 mmol/L (98-107); Cholesterol 139 mg/dL (200); Creatinine, Serum 0.92 mg/dL (0.70-1.30); EST Glomerular Filtration Rate 88 mL/min (>60); Est Glom Filt Rate - Afr Amer 106 mL/min (>60); Ferritin 28 ng/mL (26-388); Globulin 4.5 g/dL (2.2-4.2); Glucose 96 mg/dL (74-106); High Density Lipoprotein 58 mg/dL; Iron 46 ug/dL (65-175); LDH 152 U/L (87-241); Potassium 3.7 mmol/L (3.5-5.1); Protein, Total 7.4 g/dL (6.4-8.2); Rheumatoid Factor < 10.0 IU/mL (<15); Sodium Level 138 mmol/L (136-145); Triglycerides 114 mg/dL; Very Low Density Lipoprotein 23 mg/dL (5-40)
[2019-11-28 09:01] LABS: Vitamin B12 389 pg/mL (211-911)
[2019-11-29 14:08] LABS: ANTINUCLEAR ANTIBODIES DIRECT Negative (Negative)
[2019-11-29 16:08] LABS: PROEL- A/G Ratio 0.8 (0.7-1.7); PROEL- Alpha-1 Globulin 0.3 g/dL (0.0-0.4); PROEL- Alpha-2 Globulin 1.4 g/dL (0.4-1.0); PROEL- Beta Globulin 1.1 g/dL (0.7-1.3); PROEL- Gamma Globulin 0.9 g/dL (0.4-1.8); PROEL- Globulin, Total 3.7 g/dL (2.2-3.9); PROEL- TOTAL PROTEIN 6.7 g/dL (6.0-8.5); PROELU- Albumin, Urine 22.9 % (.); PROELU- Alpha-1-Globulin,Ur 7.1 % (.); PROELU- Alpha-2-Globulin,Ur 23.9 % (.); PROELU- Beta Globulin, Ur 29.8 % (.); PROELU- Gamma Globulin, Ur 16.3 % (.)
== END ==
PROVIDERS: PCP Internal Medicine; Visit Provider Internal Medicine
DX: E78.49 Other hyperlipidemia (principal); E03.9 Hypothyroidism, unspecified; D50.9 Iron deficiency anemia, unspecified; R73.09 Other abnormal glucose; R79.9 Abnormal finding of blood chemistry, unspecified
CPT/HCPCS: 36415; 80053; 80061; 82607; 82728; 83036; 83540; 83615; 84165; 84166; 84443; 85025; 85652; 86038; 86140; 86431

== ENCOUNTER → 2019-12-17 08:33 | Outpatient (CLI) | payer MEDICARE, OTHER, SELFPAY ==
[2019-11-05 08:12] VITALS: BMI 38.6
--- NOTE | 2019-12-17 08:35 | RAD_ITS ---
STUDY: BARIUM ENEMA. REASON FOR EXAM: Male, 69 years old. Incomplete colonoscopy stopped at hepatic flexure x 1.5 months ago, -- biopsy at transverse colon x 1.5 months, pt c/o blood in stool x 6 months, abdomen pain x 3 months FLUOROSCOPY TIME (if supplied): ( 2 minutes and 26 seconds ) minutes/seconds. 15 images were obtained. TECHNIQUE: A road hogger operator view was obtained. Following this, barium was introduced retrograde through the rectum. The entire colon was opacified. COMPARISON: None. FINDINGS: There is redundancy of the sigmoid colon. There is no obstruction to the full of contrast in the antegrade or retrograde fashion. No mass lesion is seen. No intraluminal filling defect is present. RAD/Barium Enema w/Air Contrast IMPRESSION: Redundancy of the sigmoid colon. Electronically Signed: Wilfredo Awan, at 12:32 EDT , Service support ,
== END ==
PROVIDERS: PCP Internal Medicine; Referring Provider Surgery; Visit Provider Surgery
DX: K92.1 Melena (principal); R10.9 Unspecified abdominal pain
CPT/HCPCS: 74280

== ENCOUNTER → 2019-12-19 08:40 | Outpatient (CLI) | payer MEDICARE, OTHER, SELFPAY ==
[2019-11-05 08:12] VITALS: BMI 38.6
[2019-12-19 09:11] VITALS: BP 118/66; PULSE 81; RESP 18; TEMP 37; O2SAT 98; BMI 39.1
== END ==
PROVIDERS: PCP Internal Medicine; Referring Provider Internal Medicine; Visit Provider Internal Medicine
DX: Z45.2 Encounter for adjustment and management of vascular access device (principal)
CPT/HCPCS: 36569

== ENCOUNTER → 2019-12-20 08:04 | Outpatient (CLI) | payer MEDICARE, OTHER, SELFPAY ==
[2019-12-19 09:11] VITALS: BMI 39.1
[2019-12-20 08:17] VITALS: BP 124/68; PULSE 67; RESP 16; TEMP 36.1; O2SAT 98; BMI 38.8
[2019-12-20] MEDS: 0.9% NaCl PICC Flush IV ×4 (08:55→19:50)
[2019-12-20] MEDS: 0.9% NaCl IVPB Med Flush (250 mL) 15 ML IV ×2 (08:56→19:03)
[2019-12-20 09:57] VITALS: BP 99/52; PULSE 69; RESP 16; TEMP 36.4; O2SAT 95
[2019-12-20 19:10] VITALS: BP 138/67; PULSE 80; RESP 16; TEMP 36.8; O2SAT 100; BMI 38.8
== END ==
PROVIDERS: PCP Internal Medicine; Referring Provider Internal Medicine; Visit Provider Internal Medicine
DX: J18.9 Pneumonia, unspecified organism (principal)
CPT/HCPCS: 96365 ×2; J7050; A4216

== ENCOUNTER → 2019-12-21 08:02 | Outpatient (CLI) | payer MEDICARE, OTHER, SELFPAY ==
[2019-12-20 08:17] VITALS: BMI 38.8
[2019-12-20 14:05] VITALS: BMI 38.6
[2019-12-21 08:09] VITALS: BP 114/47; PULSE 73; RESP 18; TEMP 36.1; BMI 38.7
[2019-12-21] MEDS: 0.9% NaCl IVPB Med Flush (250 mL) 15 ML IV ×2 (08:16→19:01)
[2019-12-21] MEDS: 0.9% NaCl PICC Flush IV ×4 (08:17→19:45)
[2019-12-21 09:27] VITALS: BP 109/63; PULSE 76; RESP 18; TEMP 37
[2019-12-21 19:07] VITALS: BP 136/59; PULSE 75; RESP 16; TEMP 36.1; O2SAT 97; BMI 38.7
[2019-12-21 19:52] VITALS: BP 129/70; PULSE 77; RESP 16; TEMP 36.1
== END ==
PROVIDERS: PCP Internal Medicine; Referring Provider Internal Medicine; Visit Provider Internal Medicine
DX: J18.9 Pneumonia, unspecified organism (principal)
CPT/HCPCS: 96365 ×2; J7050; A4216

== ENCOUNTER → 2019-12-22 08:04 | Outpatient (CLI) | payer MEDICARE, OTHER, SELFPAY ==
[2019-12-20 14:05] VITALS: BMI 38.6
[2019-12-21 19:07] VITALS: BMI 38.7
[2019-12-22 08:12] VITALS: BP 118/57; PULSE 70; RESP 16; TEMP 35.9; O2SAT 95; BMI 38.8
[2019-12-22] MEDS: 0.9% NaCl PICC Flush IV ×4 (08:16→19:37)
[2019-12-22] MEDS: 0.9% NaCl IVPB Med Flush (250 mL) 15 ML IV ×2 (08:16→18:59)
[2019-12-22 09:03] VITALS: BP 107/54; PULSE 67; RESP 16; O2SAT 96
[2019-12-22 18:50] VITALS: BP 130/63; PULSE 66; RESP 16; TEMP 35.9; O2SAT 97; BMI 38.8
[2019-12-22 19:44] VITALS: BP 128/67; PULSE 68; TEMP 36.1
== END ==
PROVIDERS: PCP Internal Medicine; Referring Provider Internal Medicine; Visit Provider Internal Medicine
DX: J18.9 Pneumonia, unspecified organism (principal)
CPT/HCPCS: 96365; J7050; A4216

== ENCOUNTER → 2019-12-23 07:29 | Outpatient (CLI) | payer MEDICARE, OTHER, SELFPAY ==
[2019-12-20 14:05] VITALS: BMI 38.6
[2019-12-22 18:50] VITALS: BMI 38.8
[2019-12-23] MEDS: 0.9% NaCl IVPB Med Flush (250 mL) 15 ML IV ×2 (08:14→19:07)
[2019-12-23 08:23] VITALS: BP 114/63; PULSE 67; RESP 16; TEMP 36.2; O2SAT 95; BMI 38.7
[2019-12-23] MEDS: 0.9% NaCl PICC Flush IV ×4 (08:28→19:44)
[2019-12-23 09:10] VITALS: BP 114/61; PULSE 70; RESP 16; TEMP 36.2; O2SAT 95
[2019-12-23 19:08] VITALS: BP 119/71; PULSE 70; RESP 16; TEMP 36.3; O2SAT 96; BMI 38.7
== END ==
PROVIDERS: PCP Internal Medicine; Referring Provider Internal Medicine; Visit Provider Internal Medicine
DX: J18.9 Pneumonia, unspecified organism (principal)
CPT/HCPCS: 96365; J7050; A4216

== ENCOUNTER → 2019-12-24 08:05 | Outpatient (CLI) | payer MEDICARE, OTHER, SELFPAY ==
[2019-12-20 14:05] VITALS: BMI 38.6
[2019-12-23 19:08] VITALS: BMI 38.7
[2019-12-24 08:17] VITALS: BP 120/69; PULSE 69; RESP 16; TEMP 36.4; O2SAT 95
[2019-12-24] MEDS: 0.9% NaCl IVPB Med Flush (250 mL) 15 ML IV ×2 (08:22→19:04)
[2019-12-24] MEDS: 0.9% NaCl PICC Flush IV ×4 (08:22→19:53)
[2019-12-24 19:00] VITALS: BP 135/63; PULSE 82; RESP 16; TEMP 36.3; O2SAT 96; BMI 38.8
[2019-12-24 19:55] VITALS: BP 122/47; PULSE 72; RESP 16
== END ==
PROVIDERS: PCP Internal Medicine; Referring Provider Internal Medicine; Visit Provider Internal Medicine
DX: J18.9 Pneumonia, unspecified organism (principal)
CPT/HCPCS: 96365; 96366; J7050; A4216

== ENCOUNTER → 2019-12-25 08:11 | Outpatient (CLI) | payer MEDICARE, OTHER, SELFPAY ==
[2019-12-20 14:05] VITALS: BMI 38.6
[2019-12-24 19:00] VITALS: BMI 38.8
[2019-12-25 08:19] VITALS: BP 110/73; PULSE 70; RESP 16; TEMP 35.7; O2SAT 95; BMI 38.8
[2019-12-25] MEDS: 0.9% NaCl IVPB Med Flush (250 mL) 15 ML IV ×2 (08:24→19:01)
[2019-12-25] MEDS: 0.9% NaCl PICC Flush IV ×4 (08:24→19:50)
[2019-12-25 09:12] VITALS: BP 102/57; PULSE 73; RESP 16; TEMP 36.2; O2SAT 95
[2019-12-25 19:11] VITALS: BP 113/70; PULSE 73; RESP 16; TEMP 36.4; O2SAT 94; BMI 38.8
[2019-12-25 19:51] VITALS: BP 112/59; PULSE 77; RESP 16; TEMP 36.2; O2SAT 92
== END ==
PROVIDERS: PCP Internal Medicine; Referring Provider Internal Medicine; Visit Provider Internal Medicine
DX: J18.9 Pneumonia, unspecified organism (principal)
CPT/HCPCS: 96365; 96366; J7050; A4216

== ENCOUNTER → 2019-12-26 08:20 | Outpatient (CLI) | payer MEDICARE, OTHER, SELFPAY ==
[2019-12-20 14:05] VITALS: BMI 38.6
[2019-12-25 19:11] VITALS: BMI 38.8
[2019-12-26] MEDS: 0.9% NaCl PICC Flush IV ×4 (08:52→19:45)
[2019-12-26] MEDS: 0.9% NaCl IVPB Med Flush (250 mL) 15 ML IV ×2 (08:52→19:04)
[2019-12-26 08:59] VITALS: BP 121/65; PULSE 65; RESP 16; TEMP 36.5; O2SAT 97; BMI 38.8
[2019-12-26 10:20] VITALS: BP 111/57; PULSE 71; RESP 16; TEMP 36.5; O2SAT 97
[2019-12-26 19:09] VITALS: BP 119/76; PULSE 74; RESP 16; TEMP 36.1; O2SAT 95; BMI 38.8
== END ==
PROVIDERS: PCP Internal Medicine; Referring Provider Internal Medicine; Visit Provider Internal Medicine
DX: J18.9 Pneumonia, unspecified organism (principal)
CPT/HCPCS: 96365 ×2; J7050; A4216

== ENCOUNTER → 2020-01-03 | Outpatient (CLI) | payer MEDICARE, OTHER, SELFPAY ==
[2019-12-26 19:09] VITALS: BMI 38.8
== END | disposition home or self-care (01) ==
LOC: LABSPEC 16:13
PROVIDERS: PCP Internal Medicine; Visit Provider Internal Medicine Pulmonary Disease
DX: J47.9 Bronchiectasis, uncomplicated (principal); B96.5 Pseudomonas (aeruginosa) (mallei) (pseudomallei) as the cause of diseases classified elsewhere
CPT/HCPCS: 87070; 87205

== ENCOUNTER → 2020-01-08 09:54 | Outpatient (CLI) | payer MEDICARE, OTHER, SELFPAY ==
[2019-12-26 19:09] VITALS: BMI 38.8
[2020-01-08 11:37] LABS: Erythrocyte Sedimentation Rate 33 mm/hr (0-20)
[2020-01-08 11:39] LABS: Absolute Lymphocyte Count 1.76 X10^3/uL (0.83-4.51); Absolute Neutrophil Count 5.8 X10^3/uL (2.0-7.7); Basophil# 0.02 X10^3/uL; Basophil% 0.2 % (0-1); Eosinophil# 0.02 X10^3/uL; Eosinophils% 0.2 % (0-5); Hematocrit 40.6 % (40-54); Lymphocyte # 1.76 X10^3/ul (4.0); Lymphocyte % 21.7 % (19-41); Mean Corpuscular Hgb 28.6 pg (27.0-32.0); Mean Corpuscular Volume 89.4 fL (80-94); Mean Platelet Vol. 8.9 fl (6.2-12.0); Monocyte# 0.38 X10^3/uL; Monocyte% 4.7 % (0-10); NRBC Flagged by Analyzer 0 % (0-5); Neutrophil # 5.83 X10^3/uL (2.7-7.7); Platelet Count 296 K/mm3 (150-450); RBC Distribution Width CV 16.2 % (11.6-14.6); RBC Distribution Width SD 52.8 fl (35.1-43.9); Red Blood Count 4.54 M/mm3 (4.6-6.2); White Blood Count 8.1 K/mm3 (4.4-11.0)
[2020-01-08 12:03] LABS: ALB/GLOB Ratio 0.9 RATIO (0.9-2.4); AST(SGOT) 9 U/L (15-37); Alanine Aminotransfer ALT/SGPT 19 U/L (16-61); Albumin, Serum 3.5 g/dL (3.2-5.0); Alkaline Phosphatase 64 U/L (45-117); Anion Gap 6 (5-15); BUN 16 mg/dL (7-18); BUN/Creat Ratio 18.5 RATIO (10-20); CRP < 2.90 mg/L (0.0-3.0); Calcium,Total 8.7 mg/dL (8.5-10.1); Chloride 104 mmol/L (98-107); Creatinine, Serum 0.86 mg/dL (0.70-1.30); EST Glomerular Filtration Rate 94 mL/min (>60); Est Glom Filt Rate - Afr Amer 113 mL/min (>60); Ferritin 9 ng/mL (26-388); Globulin 3.7 g/dL (2.2-4.2); Glucose 104 mg/dL (74-106); Iron 38 ug/dL (65-175); Iron Binding Capacity,Total 461 ug/dL (250-450); Protein, Total 7.2 g/dL (6.4-8.2); Sodium Level 138 mmol/L (136-145)
== END ==
PROVIDERS: PCP Internal Medicine; Referring Provider Internal Medicine; Visit Provider Internal Medicine
DX: I10 Essential (primary) hypertension (principal); D50.9 Iron deficiency anemia, unspecified; R19.5 Other fecal abnormalities
CPT/HCPCS: 36415; 80053; 82728; 83540; 83550; 85025; 85652; 86140

== ENCOUNTER → 2020-01-11 16:22 | Outpatient (CLI) | payer MEDICARE, OTHER, SELFPAY ==
[2019-12-26 19:09] VITALS: BMI 38.8
== END ==
PROVIDERS: PCP Internal Medicine; Visit Provider Internal Medicine Pulmonary Disease
DX: J47.9 Bronchiectasis, uncomplicated (principal)
CPT/HCPCS: 87070; 87205

== ENCOUNTER → 2020-01-14 13:42 | Outpatient (CLI) | payer MEDICARE, OTHER, SELFPAY ==
[2019-12-26 19:09] VITALS: BMI 38.8
--- NOTE | 2020-01-14 13:44 | CT_ITS ---
STUDY: CT ABDOMEN AND PELVIS WITH CONTRAST REASON FOR EXAM: Male, 69 years old. ACUTE ABD PAIN, BILAT FLANK PAIN,IODINE ALLERGY-PREMEDICATED RADIATION DOSAGE (If Supplied By Facility): CTDIvol = ( 21.77 ) mGy, DLP = ( 1324.07 ) mGycm TECHNIQUE: Transaxial images were obtained from the dome of the diaphragm to the symphysis pubis without oral contrast. Oral and amp; IV Gastrografin and amp; 100mL Isovue-300 was administered. Sagittal and coronal images were reconstructed. Individualized dose optimization techniques were used for this CT. COMPARISON: 11/15/2019. FINDINGS: The visualized lung bases are unremarkable. The visualized portions of the heart are within normal limits. Normal liver. Normal gallbladder and extrahepatic biliary system. Normal spleen. Normal pancreas. Normal bilateral adrenal glands. Punctate nonobstructive stone in the right kidney. Normal left kidney. Normal visualized stomach. Normal small intestine. Fecal retention in the colon. The appendix is not visualized. Calcified abdominal aorta. Normal inferior vena cava. Normal retroperitoneum. Normal urinary bladder. Normal abdominal wall. Normal osseous structures. CT/Abdomen/Pelvis WITH Contrast IMPRESSION: Nonobstructing right renal stone. Colonic fecal retention Electronically Signed: Roldan Osorio DO at 16:50 EST Tel [phone], Service support ,
[2020-01-14 14:33] VITALS: BP 109/61; PULSE 72; RESP 14; TEMP 37.1; O2SAT 97; BMI 39.9
[2020-01-14] MEDS: DiphenhydrAMINE 50 MG/ML Syringe IV (14:56)
[2020-01-14] MEDS: MethylPREDNISolone 125 MG/2 ML Vial 60 MG IV (14:57)
[2020-01-14] MEDS: 0.9% Saline Lock 10 ML Syringe IV (15:01)
--- NOTE | 2020-01-14 15:02 | NURSING ---
PT MEDICATED FOR CONTRAST ALLERGY PER ORDER. PT FINISHED ORAL CONTRAST.
== END ==
PROVIDERS: PCP Internal Medicine; Referring Provider Internal Medicine; Visit Provider Internal Medicine
DX: R10.9 Unspecified abdominal pain (principal); Z91.041 Radiographic dye allergy status
CPT/HCPCS: 96374; 96375; 74177; 80053; 85025; 85652; 86140; Q9967; A4216

== ENCOUNTER → 2020-01-14 | Outpatient (CLI) | payer MEDICARE, OTHER, SELFPAY ==
[2019-12-26 19:09] VITALS: BMI 38.8
[2020-01-14 13:54] LABS: Absolute Lymphocyte Count 1.99 X10^3/uL (0.83-4.51); Absolute Neutrophil Count 7.7 X10^3/uL (2.0-7.7); Basophil# 0.02 X10^3/uL; Basophil% 0.2 % (0-1); Eosinophils% 1.9 % (0-5); Hematocrit 40.4 % (40-54); Hemoglobin 12.5 g/dL (13.0-16.5); Lymphocyte # 1.99 X10^3/ul (4.0); Lymphocyte % 18.8 % (19-41); Mean Corp Hgb Conc 30.9 g/dL (32-36); Mean Corpuscular Volume 90.6 fL (80-94); Mean Platelet Vol. 8.7 fl (6.2-12.0); Monocyte# 0.65 X10^3/uL; Monocyte% 6.1 % (0-10); NRBC Flagged by Analyzer 0 % (0-5); Neutrophil # 7.68 X10^3/uL (2.7-7.7); Neutrophil % 72.3 % (47-70); Platelet Count 197 K/mm3 (150-450); RBC Distribution Width CV 16.4 % (11.6-14.6); RBC Distribution Width SD 55.2 fl (35.1-43.9); Red Blood Count 4.46 M/mm3 (4.6-6.2); White Blood Count 10.6 K/mm3 (4.4-11.0)
[2020-01-14 13:59] LABS: Erythrocyte Sedimentation Rate 42 mm/hr (0-20)
[2020-01-14 14:13] LABS: ALB/GLOB Ratio 0.9 RATIO (0.9-2.4); AST(SGOT) 10 U/L (15-37); Alanine Aminotransfer ALT/SGPT 21 U/L (16-61); Albumin, Serum 3.1 g/dL (3.2-5.0); Alkaline Phosphatase 65 U/L (45-117); Anion Gap 5 (5-15); BUN 11 mg/dL (7-18); BUN/Creat Ratio 11.4 RATIO (10-20); Calcium,Total 8.7 mg/dL (8.5-10.1); Chloride 102 mmol/L (98-107); Creatinine, Serum 0.97 mg/dL (0.70-1.30); EST Glomerular Filtration Rate 82 mL/min (>60); Est Glom Filt Rate - Afr Amer 99 mL/min (>60); Globulin 3.3 g/dL (2.2-4.2); Glucose 133 mg/dL (74-106); Potassium 4.4 mmol/L (3.5-5.1); Protein, Total 6.4 g/dL (6.4-8.2); Sodium Level 137 mmol/L (136-145)
== END | disposition home or self-care (01) ==
PROVIDERS: PCP Internal Medicine; Referring Provider Internal Medicine; Visit Provider Internal Medicine
DX: R10.9 Unspecified abdominal pain (principal)
CPT/HCPCS: 80053; 85025; 85652; 86140

== ENCOUNTER → 2020-01-15 15:40 | Outpatient (CLI) | payer MEDICARE, OTHER, SELFPAY ==
[2019-12-26 19:09] VITALS: BMI 38.8
[2020-01-14 14:33] VITALS: BMI 39.9
[2020-01-15 15:49] VITALS: BP 131/79; PULSE 94; RESP 16; TEMP 36.1; O2SAT 96
[2020-01-15 16:00] VITALS: BP 107/69; PULSE 82; RESP 16
[2020-01-15 16:30] VITALS: BP 111/62; PULSE 77; RESP 16; O2SAT 99
== END ==
PROVIDERS: PCP Internal Medicine; Referring Provider Internal Medicine Pulmonary Disease; Visit Provider Internal Medicine Pulmonary Disease
DX: Z45.2 Encounter for adjustment and management of vascular access device (principal)

== ENCOUNTER 2020-04-29 13:20 | Outpatient (RCR) | payer MEDICARE, OTHER, SELFPAY ==
[2020-04-09 13:14] VITALS: BMI 39.4
[2020-04-29] MEDS: COVID-19 VACC, MRNA(PFIZER)/PF 30 MCG/0.3 ML SYRINGE IM (12:05)
[2020-05-20] MEDS: COVID-19 VACC, MRNA(PFIZER)/PF 30 MCG/0.3 ML SYRINGE IM (12:07)
== END 2020-07-29 23:59 ==
LOC: IMMUN 13:20
PROVIDERS: PCP Internal Medicine; Visit Provider Family Medicine
DX: Z23 Encounter for immunization (principal)
CPT/HCPCS: 0001A; 0002A; 91300

== ENCOUNTER 2020-06-18 11:30 | Outpatient (RCR) | payer OTHER, SELFPAY ==
[2020-04-09 13:14] VITALS: BMI 39.4
--- NOTE | 2020-06-03 10:00 | HP.OTEVAL_ITS ---
Patient's Visit Information YUMIKO TAN is a 69 year old M, referred to Occupational Therapy by Dr. Trevon John MD, with a diagnosis of left elbow sprain. Date of Evaluation: 06/03/20 Occupational Therapist: Sabra Sanchez, MATILDE/Татьяна, CHT - Subjective This 69 year old male was seen for OT eval with dx of left elbow sprain due to fall 05/01/20. pt states he suffed fall on steps. 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 pt is right handed- pt states he as trouble with pain around the biceps tendon with full elbow ROM. pt states he has been using a sling when pain increases. states this helps- pt denies using ice or heat. 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 with ALDs and IADLs by d/c Goal:: pt will demo full ROM of left elbow without pain limiting pts full ROM by d/c Goal:: pt will report no pain greater than 2/10 with use of left UE with ADLs and IADls by d/c - Rehabilitation General Assessment: pt demo with painful left elbow motion and weakness of left UE limiting pts ind. with ADls and work tasks. pt would benefit from skilled OT services 2-3x week for 3 weeks to return pt to PLOF. Rehabilitation Potential: Good - Anticipated Interventions A/AAROM/PROM, Strengthening, Triggerpoint Release, Modalities, Joint Protection/Energy Conservation, Ergonomic Education - Visit Plan Frequency: 2-3x /Week Duration: 3 Weeks General Plan: therapy will initiate AROM, isometric triceps, US to biceps tendon and follow with isometric biceps at visit 3- pt ed. on ice/heat to decrease pain TEXT: Thank you for the opportunity to evaluate your patient. For Medicare and Medicare HMO plans, please review the plan of care and approve it. It will need to be FAXED BACK to us at [phone] for Medicare purposes. Please let me know if there are questions or concerns regarding this plan of care. Physician Signature: Date:
--- NOTE | 2020-10-13 15:08 | HP.OTDCNRP_ITS ---
YUMIKO TAN was seen in my office for initial evaluation on 06/03/20. The following Plan of Care was established for this patient: Initial Frequency: 2-3x /Week Initial Duration: 3 Weeks Plan: cont POC Anticipated Interventions: A/AAROM/PROM, Strengthening, Triggerpoint Release, M odalities, Joint Protection/Energy Conservation, Ergonomic Education This patient was last seen in our office 06/18/20. Pertinent comments regarding their Occupational therapy will appear below: pt was seen for 4 OT visits- pt was making gains with ROM but returned to Dr due to falls- at this time pt did not schedule further apts. pt d/c at this time. At this point I will be discontinuing this patient from occupational therapy. I would be happy to see this patient again in the future if found appropriate by the physician. Thank you! Sabra Sanchez, OTR/L, CHT
== END 2020-06-18 19:00 | disposition home or self-care (01) ==
LOC: OT 11:30
PROVIDERS: PCP Internal Medicine; Referring Provider Orthopaedic Surgery; Visit Provider Orthopaedic Surgery
DX: S53.402D Unspecified sprain of left elbow, subsequent encounter (principal)
CPT/HCPCS: 97035; 97110; 97166; 97530

== ENCOUNTER → 2020-06-30 06:51 | Outpatient (CLI) | payer MEDICARE, OTHER, SELFPAY ==
[2020-04-09 13:14] VITALS: BMI 39.4
--- NOTE | 2020-06-30 06:57 | MRI_ITS ---
STUDY: MRI BRAIN WITH AND WITHOUT CONTRAST REASON FOR EXAM: Male, 69 years old. DOUBLE VISION, NYSTAGMUS BALANCE DISORDER -- ASSESS CEREBELLUM TECHNIQUE: Standardized multiplanar fat and water weighted pulse sequences were obtained. IV Yes YES was administered for the contrast portion of the examination. COMPARISON: None. FINDINGS: There is mild cerebral atrophy with widening of the extra-axial spaces and ventricular dilatation. Normal white matter tracts of the supratentorial brain. Cavum septum lucidum per day which is a normal variant. There is no evidence for recent intracranial ischemia or other cause of cytotoxic edema on diffusion weighted imaging (DWI). Normal T2* images of the brain without demonstrated susceptibility artifact. There is no demonstrated hemosiderin stain. Normal bilateral basal ganglia. Normal thalami. There is no extra-axial fluid accumulation. Normal flow voids within the major intracranial circulation suggesting patency by spin echo criteria. Normal venous enhancement. There is no enhancing intra-axial or extra-axial abnormality. Normal sella turcica, pituitary gland, infundibular stalk, optic chiasm and hypothalamus. Normal tectal plate and pineal gland. Normal midbrain, seymour and medulla. Normal cerebellum. Normal basal cisterns. Normal bilateral temporal bones. Normal bilateral internal auditory canals. No demonstrated orbital abnormality, within the constraints of a routine brain study. Normal visualized paranasal sinuses. Normal calvarium and skull base. Normal visualized soft tissue structures. Normal visualized upper cervical spine. MRI/Brain W/WO Contrast IMPRESSION: Involutional changes of the brain, as described above. Electronically Signed: Will Hughes MD at 9:01 EDT Tel , Service support ,
[2020-06-30 07:53] LABS: AST(SGOT) 9 U/L (15-37); Alanine Aminotransfer ALT/SGPT 17 U/L (16-61); Albumin, Serum 3.4 g/dL (3.2-5.0); Alkaline Phosphatase 68 U/L (45-117); Anion Gap 8 (5-15); BUN 19 mg/dL (7-18); BUN/Creat Ratio 16.5 RATIO (10-20); Calcium,Total 9.2 mg/dL (8.5-10.1); Chloride 103 mmol/L (98-107); Creatinine, Serum 1.15 mg/dL (0.70-1.30); EST Glomerular Filtration Rate 67 mL/min (>60); Est Glom Filt Rate - Afr Amer 81 mL/min (>60); Globulin 3.3 g/dL (2.2-4.2); Glucose 110 mg/dL (74-106); Potassium 4.1 mmol/L (3.5-5.1); Protein, Total 6.7 g/dL (6.4-8.2); Sodium Level 138 mmol/L (136-145)
[2020-06-30 09:47] LABS: Absolute Neutrophil Count 3.5 X10^3/uL (2.0-7.7); Basophil# 0.04 X10^3/uL; Basophil% 0.7 % (0-1); Eosinophil# 0.22 X10^3/uL; Eosinophils% 3.6 % (0-5); Hematocrit 40.1 % (40-54); Hemoglobin 12.9 g/dL (13.0-16.5); Lymphocyte % 29.5 % (19-41); Mean Corp Hgb Conc 32.2 g/dL (32-36); Mean Corpuscular Hgb 31.1 pg (27.0-32.0); Mean Corpuscular Volume 96.6 fL (80-94); Mean Platelet Vol. 8.7 fl (6.2-12.0); Monocyte# 0.53 X10^3/uL; Monocyte% 8.7 % (0-10); NRBC Flagged by Analyzer 0 % (0-5); Neutrophil # 3.48 X10^3/uL (2.7-7.7); Neutrophil % 56.8 % (47-70); Platelet Count 213 K/mm3 (150-450); RBC Distribution Width CV 13.8 % (11.6-14.6); Red Blood Count 4.15 M/mm3 (4.6-6.2); White Blood Count 6.1 K/mm3 (4.4-11.0)
[2020-06-30 10:06] LABS: Hemoglobin A1c 5.6 % (3.8-5.6)
[2020-06-30 10:30] LABS: Vitamin B12 244 pg/mL (211-911)
[2020-06-30 12:30] LABS: Cholesterol 151 mg/dL (200); Ferritin 24 ng/mL (26-388); High Density Lipoprotein 64 mg/dL; Iron 84 ug/dL (65-175); Thyroid Stim Hormone (TSH) 3.91 uIU/mL (0.358-3.74); Triglycerides 90 mg/dL; Very Low Density Lipoprotein 18 mg/dL (5-40)
== END ==
PROVIDERS: PCP Internal Medicine; Referring Provider Internal Medicine; Visit Provider Internal Medicine
DX: R26.89 Other abnormalities of gait and mobility (principal); E11.9 Type 2 diabetes mellitus without complications; D64.9 Anemia, unspecified; E78.49 Other hyperlipidemia
CPT/HCPCS: 36415; 70553; 80053; 80061; 82607; 82728; 83036; 83540; 84443; 85025; A9575

== ENCOUNTER → 2020-07-02 08:01 | Outpatient (CLI) | payer MEDICARE, OTHER, SELFPAY ==
[2020-04-09 13:14] VITALS: BMI 39.4
--- NOTE | 2020-07-02 08:03 | CDU_ITS ---
Reason For Study: Carotid stenosis Rt. Velocities/BP Lt. Velocities/BP Prox CCA 87.8/8.2 cm/sec. Prox CCA 85/14.6 cm/sec. Mid CCA 68.2/12.1 cm/sec. Mid CCA 66.3/11.3 cm/sec. Dist CCA 60.4/12.1 cm/sec. Dist CCA 63/11.3 cm/sec. Prox ICA 39.9/12.4 cm/sec. Prox ICA 64.1/14.6 cm/sec. Mid ICA 47.6/11.3 cm/sec. Mid ICA 56.4/14.6 cm/sec. Dist ICA 57.5/16.8 cm/sec. Dist ICA 64.1/22.3 cm/sec. Rt. ICA/CCA = 0.84. Lt. ICA/CCA = 0.97. Prox ECA 78.6/9.5 cm/sec. Prox ECA 63/6.9 cm/sec. Rt. Vert. 38.8/11.3 cm/sec. Lt. Vert. 43.7/12.6 cm/sec. Right Extracranial There is intimal thickening but no significant atherosclerotic plaque noted in the right common carotid artery. There is intimal thickening but no significant atherosclerotic plaque noted in the right internal carotid artery. There is intimal thickening but no significant atherosclerotic plaque noted in the right external carotid artery. Antegrade flow is noted in the right vertebral artery. Left Extracranial There is intimal thickening but no significant atherosclerotic plaque noted in the left common carotid artery. There is heterogeneous, irregular atherosclerotic plaque noted in the left internal carotid artery. There is heterogeneous, irregular atherosclerotic plaque noted in the left external carotid artery. Antegrade flow is noted in the left vertebral artery. Procedure Carotid Duplex 78534. This is a Carotid Duplex examination using B-mode, color flow and specral Doppler. Exam performed in department. VL/Carotid Duplex Ultrasound Interpretation Summary No significant atherosclerotic plaque or stenosis noted in the right internal c arotid artery. Mild (<50%) stenosis left extracranial internal carotid. Flow within the vertebral a rteries is antegrade bilaterally. Ordering Physician: Adelaida Fraga Referring Physician: Adelaida Fraga Performed By: Shena Clements RVT
== END ==
PROVIDERS: PCP Internal Medicine; Referring Provider Internal Medicine; Visit Provider Internal Medicine
DX: I65.23 Occlusion and stenosis of bilateral carotid arteries (principal)
CPT/HCPCS: 93880

== ENCOUNTER → 2020-12-19 14:45 | Outpatient (CLI) | payer MEDICARE, OTHER, SELFPAY ==
--- NOTE | 2020-12-19 14:48 | RAD_ITS ---
STUDY: X-RAY - LUMBAR SPINE REASON FOR EXAM: Male, 70 years old. PAIN IN LEFT HIP TECHNIQUE: 5 view(s) of the lumbar spine were obtained. COMPARISON: None FINDINGS: Normal lumbar lordosis. There is no substantial scoliosis. There is a normal alignment of the vertebrae. Transitional anatomy of S1. There is multilevel endplate spondylosis of the lumbar vertebrae. Loss of disc height at L1-L2 and L2-L3. Remaining disc levels are preserved. Moderate facet arthropathy at L3-L4 and L4-L5 as well as the lumbosacral junction. There is no demonstrated fracture. There is no demonstrated spondylolysis of the pars interarticulares. There is atherosclerotic calcification of the abdominal aorta without a demonstrated aneurysm. RAD/L/S Spine Min 4 Views IMPRESSION: Degenerative disc disease and facet arthropathy, as above. Electronically Signed: Shree Marquez MD ([place]) at 15:26 EDT , Service support ,
--- NOTE | 2020-12-19 14:48 | RAD_ITS ---
STUDY: X-RAY - PELVIS AND LEFT HIP REASON FOR EXAM: Male, 70 years old. PAIN IN HIP TECHNIQUE: 3 views of the pelvis and hip. COMPARISON: None. FINDINGS: There is a non-specific bowel gas pattern. Normal visualized soft tissue structures. Normal bilateral iliac wings, sacroiliac joints and visualized sacrum. Normal bilateral superior and inferior pubic rami. Normal pubic symphysis. Normal bilateral ischial tuberosities. Normal visualized femoral head. Normal acetabulum. Normal hip joint. RAD/HIP, UNI W/ Pelvis 2-3 Views IMPRESSION: Normal x-ray examination of the pelvis and hip. Electronically Signed: Shree Marquez MD ([place]) at 15:27 EDT , Service support ,
== END ==
PROVIDERS: PCP Internal Medicine; Referring Provider Internal Medicine; Visit Provider Internal Medicine
DX: M25.552 Pain in left hip (principal); G89.29 Other chronic pain
CPT/HCPCS: 72110; 73502

== ENCOUNTER 2021-05-05 06:18 | Outpatient (CLI) | payer MEDICARE, OTHER, SELFPAY ==
--- NOTE | 2021-05-05 07:58 | STRESSREP ---
Stress Test Report Date: 05-05-2021 Procedure: Pharmacologic stress nuclear imaging study Indications: Chest pain; CAD; PCI Consent: Per the patient Procedure: The patient underwent pharmacologic (Regadenoson 0.4mg ) evaluation with a peak heart rate of 82 beats per minute (53%predicted maximal heart rate) and a peak blood pressure of 128/72 mmHg. The baseline ECG demonstrated normal sinus rhythm; right bundle branch block. The peak pharmacologic ECG demonstrated no obvious ECG changes. There were no cardiac dysrhythmias pretest, during pharmacologic infusion, or recovery. There was no complaint of chest discomfort during pharmacologic infusion or recovery. The examination was discontinued secondary to completion of protocol. Impression: 1. Pharmacologic (Regadenoson) evaluation 2. Peak pharmacologic ECG with continued right bundle branch block with no obvious ECG changes. 3. There were no cardiac dysrhythmias pretest, during pharmacologic infusion, or recovery. 4. Nuclear images pending Myocardial perfusion imaging study: Technique: The patient was injected with millicuries of technetium 99m Cardiolite and subsequently rest SPECT Cardiolite nuclear imaging was obtained in the horizontal long, vertical long, and short axis views. The patient underwent pharmacologic (Regadenoson) evaluation with a peak heart rate of 82 beats per minute (53% percent predicted maximal heart rate) and a peak blood pressure of 128/72 mmHg. The patient was injected with millicuries of technetium 99m Cardiolite and subsequently stress SPECT Cardiolite nuclear imaging was obtained in the horizontal long, vertical long, and short axis views. A gated Cardiolite study at peak stress was obtained. Interpretation: Rest and stress SPECT Cardiolite nuclear imaging status post realignment, normalization, and attenuation correction demonstrate a small area of diminished tracer uptake in the mid anterior segments which appears to be somewhat more prominent following stress. There is end systolic thickening and brightening. The gated Cardiolite study demonstrates myocardial thickening and inward wall motion. The reported LVEF is 66%. Impression: 1. Rest and stress SPECT Cardiolite nuclear imaging demonstrate a small area of diminished tracer uptake in the mid anterior segments which appears to be somewhat more prominent following stress potentially compatible with an area of previous myocardial injury/infarction with ashlee-infarct related myocardial ischemia. 2. The gated Cardiolite study reports an LVEF of 66%. This note was generated with [employer] software. It may contain incorrect words, spelling, and punctuation that were not noted in checking the note before signing.
== END 2021-05-05 23:59 | disposition home or self-care (01) ==
LOC: CVS 06:21
PROVIDERS: PCP Internal Medicine; Referring Provider Nurse Practitioner Gerontology; Visit Provider Nurse Practitioner Gerontology
DX: R07.9 Chest pain, unspecified (principal)
CPT/HCPCS: 78452; 93017; A9500; A4216; J2785

== ENCOUNTER 2021-05-19 14:00 | Outpatient (CLI) | payer MEDICARE, OTHER, SELFPAY ==
--- NOTE | 2021-05-19 14:01 | RAD_ITS ---
EXAM: XR CHEST, 2 VIEWS CLINICAL INDICATION: Cardioversion TECHNIQUE: Frontal and lateral views of the chest. This report was created using [employer] report generation technology. COMPARISON: None. FINDINGS: LUNGS AND PLEURAL SPACES: Unremarkable. No consolidation or edema. No pneumothorax. No effusion. HEART: Unremarkable. Cardiac silhouette not enlarged. MEDIASTINUM: Central airways and mediastinal contour are unremarkable. BONES/JOINTS: Redemonstration of suture anchors projecting over the right glenohumeral joint. Degenerative changes of the spine. SOFT TISSUES: Unremarkable. VASCULATURE: Atherosclerotic calcifications of the nonenlarged thoracic aortic arch. RAD/Chest PA and Lateral IMPRESSION: No acute findings in the chest. Electronically Signed: Ambrosio Mckeon MD at 23:48 EDT ,
[2021-05-19 15:31] LABS: Absolute Lymphocyte Count 2.49 X10^3/uL (0.83-4.51); Absolute Neutrophil Count 3.2 X10^3/uL (2.0-7.7); Basophil# 0.04 X10^3/uL; Basophil% 0.6 % (0-1); Eosinophil# 0.35 X10^3/uL; Eosinophils% 5.2 % (0-5); Hematocrit 39.6 % (40-54); Hemoglobin 13.6 g/dL (13.0-16.5); Lymphocyte # 2.49 X10^3/ul (0.83-4.51); Lymphocyte % 37.3 % (19-41); Mean Corp Hgb Conc 34.3 g/dL (32-36); Mean Corpuscular Volume 96.1 fL (80-94); Mean Platelet Vol. 9.4 fl (6.2-12.0); Monocyte# 0.59 X10^3/uL; Monocyte% 8.8 % (0-10); NRBC Flagged by Analyzer 0 % (0-5); Neutrophil # 3.18 X10^3/uL (2.7-7.7); Neutrophil % 47.7 % (47-70); Platelet Count 220 K/mm3 (150-450); RBC Distribution Width CV 13.2 % (11.6-14.6); RBC Distribution Width SD 46.8 fl (35.1-43.9); Red Blood Count 4.12 M/mm3 (4.6-6.2); White Blood Count 6.7 K/mm3 (4.4-11.0)
[2021-05-19 16:01] LABS: Prothrombin Time (Protime)PT. 12.7 SECONDS (11.7-14.9)
[2021-05-19 16:02] LABS: Anion Gap 7 (5-15); BUN 10 mg/dL (7-18); BUN/Creat Ratio 10.7 RATIO (10-20); Calcium,Total 8.9 mg/dL (8.5-10.1); Chloride 104 mmol/L (98-107); Creatinine, Serum 0.94 mg/dL (0.70-1.30); EST Glomerular Filtration Rate 85 mL/min (>60); Est Glom Filt Rate - Afr Amer 103 mL/min (>60); Glucose 110 mg/dL (74-106); Potassium 4.1 mmol/L (3.5-5.1); Sodium Level 138 mmol/L (136-145)
[2021-05-19 16:10] LABS: Partial Thromboplast Time 27.6 Seconds (24.1-36.2)
== END 2021-05-19 23:59 | disposition home or self-care (01) ==
LOC: MTLAB 14:01
PROVIDERS: PCP Internal Medicine; Referring Provider Nurse Practitioner Gerontology; Visit Provider Nurse Practitioner Gerontology
DX: R94.39 Abnormal result of other cardiovascular function study (principal); R06.02 Shortness of breath; I25.10 Atherosclerotic heart disease of native coronary artery without angina pectoris
CPT/HCPCS: 36415; 71046; 80048; 85025; 85610; 85730

== ENCOUNTER 2021-05-22 08:36 | Day surgery (SDC) | payer MEDICARE, OTHER, SELFPAY ==
[2021-05-21 07:07] VITALS: BMI 39.2
--- NOTE | 2021-05-21 11:51 | HP.PCM_ITS ---
History and Physical Date of Admission: 05/22/21 [facility] [address] [place] [address] [phone] OFFICE VISITDate of Service: 05/18/21 MR#:[id number]: YUMIKO TAN [facility] #:[id number]:[id number] Provider: COCO Rodarte/Sex: 70/M [facility] HPI HPI History of Present Illness Surgical H&P: Yes Details: YUMIKO TAN, is a 70 year old white male who presents to the office today for a cardiovascular follow up. His stress test from 05/05/2021 was abnormal, he will be scheduled for a cardiac catheterization. He has a history of underlying CAD status post LAD PCI in 2005, reported Prinzmetal angina, hyperlipidemia, and hypertension superimposed upon his underlying chronic pulmonary disease process. From a cardiac standpoint, the patient is doing well. He denies any palpitations, chest pain, pressure or heaviness. He does state that he will have an occasional ache/pressure in his left shoulder and into his neck. He states that he does have an occasional SOB with exertion. He attributes this to his asthma. He denies Orthopnea, and PND. He does not have bleeding issues; no blood in urine, stool or nosebleeds. He states that he does have fatigue, this has been ongoing for the last 3 months. He denies myalgias, or claudication. He states that he does have bilateral lower extremity edema that goes away with elevation. He denies sudden weight gain. He does have an occasional dizziness with positional changes. He denies lightheadedness, syncopal or near syncopal episodes, and headaches. 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: No Accompanied by: None Is patient in pain?: No Allergies iodine Allergy (Verified 05/18/21 14:01) Rash, upset stomach, facial swelling Penicillins Allergy (Verified 05/18/21 14:01) Rash pseudoephedrine HCl [From Actifed] Allergy (Verified 05/18/21 14:01) mood changes Sulfa (Sulfonamide Antibiotics) Allergy (Verified 05/18/21 14:01) Rash triprolidine HCl [From Actifed] Allergy (Verified 05/18/21 14:01) mood changes ibuprofen Adverse Reaction (Verified 05/18/21 14:01) not able to use d/t heart condition Medications aspirin 81 mg PO DAILY 06/28/13 [History Confirmed 05/18/21] montelukast 10 mg PO QHS 06/28/13 [History Confirmed 05/18/21] pantoprazole 40 mg PO BID 06/28/13 [History Confirmed 05/18/21] albuterol sulfate 1.25 mg INHALATION Q4H PRN 07/12/17 [History Confirmed 05/18/21] albuterol sulfate 90 mcg/actuation aerosol inhaler 2 puff INHALATION Q4H PRN 07/12/17 [History Confirmed 05/18/21] eszopiclone 3 mg tablet 3 mg PO QHS 07/12/17 [History Confirmed 05/18/21] lorazepam 0.5 mg tablet 0.5 mg PO QDAY PRN tab 07/12/17 [History Confirmed 05/18/21] mirabegron 50 mg tablet,extended release 24 hr 50 mg PO QHS 07/12/17 [History Confirmed 05/18/21] buspirone 10 mg tablet 30 mg PO BID tab 07/14/17 [History Confirmed 05/18/21] lactobacillus combination no.8 3 billion cell capsule 3,000 mmu cells PO QDAY 07/14/17 [History Confirmed 05/18/21] multivitamin 1 tab PO QDAY 07/14/17 [History Confirmed 05/18/21] rosuvastatin 40 mg tablet 40 mg PO QHS 07/14/17 [History Confirmed 05/18/21] tamsulosin 0.4 mg capsule 0.4 mg PO QHS cap 07/14/17 [History Confirmed 05/18/21] venlafaxine 75 mg capsule,extended release 24 hr 75 mg PO QAM cap 07/14/17 [History Confirmed 05/18/21] metformin 500 mg tablet,extended release 24 hr 1,000 mg PO QHS tab 01/10/18 [History Confirmed 05/18/21] vilazodone 40 mg PO DAILY 01/05/19 [History Confirmed 05/18/21] nitroglycerin 0.4 mg sublingual tablet 0.4 mg SUBLINGUAL Q5-15M PRN #25 tab 10/17/19 [Rx Confirmed 05/18/21] iron, carbonyl 65 mg PO DAILY 10/26/19 [History Confirmed 05/18/21] cyclobenzaprine 10 mg tablet 10 mg PO DAILY PRN tab 04/09/20 [History Confirmed 05/18/21] omega-3 fatty acids 1,000 mg capsule 1,000 mg PO DAILY 04/09/20 [History Confirmed 05/18/21] isosorbide mononitrate 30 mg tablet,extended release 24 hr 30 mg PO DAILY #90 tab 08/29/20 [Rx Confirmed 05/18/21] ranolazine 1,000 mg tablet,extended release,12 hr 1,000 mg PO BID #180 tab 09/05/20 [Rx Confirmed 05/18/21] amlodipine 5 mg tablet 5 mg PO BID tab 04/07/21 [History Confirmed 05/18/21] levothyroxine 50 mcg tablet 50 mcg PO DAILY 04/07/21 [History Confirmed 05/18/21] diphenhydramine HCl 25 mg capsule 25 mg PO QHS #4 cap 05/18/21 [Rx Confirmed 05/18/21] famotidine 20 mg tablet 20 mg PO DAILY #2 tab 05/18/21 [Rx Confirmed 05/18/21] gabapentin 600 mg tablet 600 mg PO DAILY tab 05/18/21 [History Confirmed 0 05/18/21] prednisone 20 mg tablet 20 mg PO DAILY #9 tab 05/18/21 [Rx Confirmed 05/18/21] [facility] Medical History Abnormal stress test Anxiety Asthma Atherosclerotic heart disease of [place] coronary artery without angina pectoris BPH (benign prostatic hyperplasia) Bronchiectasis Bronchiectasis Depression Essential hypertension GERD (gastroesophageal reflux disease) History of left heart catheterization (LHC) (~08/28/19) Hyperlipidemia URIEL (obstructive sleep apnea) Pre-diabetes Presence of stent in coronary artery (~08/11/05) Prinzmetal angina Pulmonary fibrosis SOB (shortness of breath) Type 2 diabetes mellitus Surgical History History of carpal tunnel surgery History of esophagogastroduodenoscopy (EGD) History of lithotripsy History of parathyroid surgery History of rotator cuff surgery History of tonsillectomy Hx of colonoscopy Postsurgical percutaneous transluminal coronary angioplasty (PTCA) status Family History Father CAD (coronary artery disease) CVA (cerebral vascular accident) Hypertension Alzheimer's dementia Brother Rheumatoid arthritis Brother Cancer non hodgkins lymphoma Social History Smoking Status: Former smoker how long ago did patient quit smokin years ago alcohol intake: current alcohol intake frequency: a few times a month Alcohol type: beer substance use type: does not use caffeine: Yes Type: coffee Number of servings: 2 ROS Const Const: Positive for fatigue (ongoing for the last 3 months); Negative for weakness, fever(s), headache(s), chills, frequent falls, weight gain or weight loss Eyes Eyes: Negative for blind spots, loss of peripheral vision, transient loss of vision, blurry vision, change in vision, double vision, floaters or tunnel vision ENT ENT: Positive for dizziness (occasional with positional changes); Negative for headache(s), Nosebleed/epistaxis, balance problems or neck pain Cardio Chest Pain: Yes (occasional left shoulder ache with radiation up the left side of his neck ) Frequency: weekly Character: other (ache/pressure) Onset: at rest Location: other (left shoulder radiates to his left neck) Duration: minutes Exacerbation: activity and rest Relieving: other (rest or nitroglycerin) Palpitations: No Edema: Bilateral (improves with elevation) and None Muscle aches with walking: None Resp Respiratory: Positive for SOB with activity (occasional-attributes this asthma. ); Negative for SOB at rest or SOB orthopnea\SOB lying down GI GI: Negative nausea, vomiting, heartburn, bloating, vomiting blood/hematemesis, bright, red blood in stools or black,tarry stools Musc Musc: Negative for muscle aches/ myalgia, muscle weakness, joint pain or balance problems Neuro Neuro: Positive for dizziness (occasional with positional changes); Negative for lightheadedness, near syncope, syncope, orthostatic symptoms, frequent falls, headache(s), weakness, blurry vision or double vision Compa Hematologic/Lymphatic: Negative for easy bleeding or easy bruising Endo Endo: Positive for fatigue (ongoing for the last 3 months) Cardiology Exam Const Appearance: cooperative and no acute distress Nutritional Appearance: obese Orientation: alert and oriented x3 Head Head: normal to inspection Ears: hearing grossly normal bilaterally Nose: external nose normal Face and Sinus: face symmetric Eyes General: appearance normal, both eyes and all related structures Eyelids: eyelids normal Conjunctivae: conjunctivae normal Pupils: PERRL and pupil size EOM: EOM intact bilaterally Neck Neck: normal visual inspection Carotids: Negative bruit Chest Chest inspection: normal inspection of the chest and normal respiratory effort Auscultation: Bilateral: Clear to Auscultation Cardio Palpation: normal PMI Rate: regular rate Rhythm: regular rhythm Heart sounds: S1 normal and S2 normal; Negative rub, gallop or murmur GI GI: normal to inspection, soft and obese; Negative no hepatosplenomegaly Neuro General: patient alert, patient oriented x3 and CN's II-XI intact bilaterally Skin Skin: no rashes or lesions noted Extremities Pulses: Normal: Right Posterior Tibial Pulse, Left Posterior Tibial Pulse, Right Radial Pulse and Left Radial Pulse Lower Extremity Edema: None: Bilateral Psych Psychological: normal affect Supplemental Info Supplemental Information Stress Test 05/05/2021: Procedure: Pharmacologic stress nuclear imaging study Indications: Chest pain; CAD; PCI Consent: Per the patient Procedure: The patient underwent pharmacologic (Regadenoson 0.4mg ) evaluation with a peak heart rate of 82 beats per minute (53%predicted maximal heart rate) and a peak blood pressure of 128/72 mmHg. The baseline ECG demonstrated normal sinus rhythm; right bundle branch block. The peak pharmacologic ECG demonstrated no obvious ECG changes. There were no cardiac dysrhythmias pretest, during pharmacologic infusion, or recovery. There was no complaint of chest discomfort during pharmacologic infusion or recovery. The examination was discontinued secondary to completion of protocol. Impression: 1. Pharmacologic (Regadenoson) evaluation 2. Peak pharmacologic ECG with continued right bundle branch block with no obvious ECG changes. 3. There were no cardiac dysrhythmias pretest, during pharmacologic infusion, or recovery. 4. Nuclear images pending Myocardial perfusion imaging study: Technique: The patient was injected with millicuries of technetium 99m Cardiolite and subsequently rest SPECT Cardiolite nuclear imaging was obtained in the horizontal long, vertical long, and short axis views. The patient underwent pharmacologic (Regadenoson) evaluation with a peak heart rate of 82 beats per minute (53% percent predicted maximal heart rate) and a peak blood pressure of 128/72 mmHg. The patient was injected with millicuries of technetium 99m Cardiolite and subsequently stress SPECT Cardiolite nuclear imaging was obtained in the horizontal long, vertical long, and short axis views. A gated Cardiolite study at peak stress was obtained. Interpretation: Rest and stress SPECT Cardiolite nuclear imaging status post realignment, normalization, and attenuation correction demonstrate a small area of diminished tracer uptake in the mid anterior segments which appears to be somewhat more prominent following stress. There is end systolic thickening and brightening. The gated Cardiolite study demonstrates myocardial thickening and inward wall motion. The reported LVEF is 66%. Impression: 1. Rest and stress SPECT Cardiolite nuclear imaging demonstrate a small area of diminished tracer uptake in the mid anterior segments which appears to be somewhat more prominent following stress potentially compatible with an area of previous myocardial injury/infarction with ashlee-infarct related myocardial ischemia. 2. The gated Cardiolite study reports an LVEF of 66%. Echocardiogram 08/02/2017: Interpretation Summary The study was technically difficult. Contrast injection was performed. Segmental dysfunction with preserved ejection fraction (see wall motion). The estimated ejection fraction is 60 %. Trivial mitral valve insufficiency. Trivial tricuspid valve insufficiency. Mild (1+) pulmonic valve insufficiency. Right ventricular systolic pressure estimated to be 30 mmHg. Normal diastology for age. Cardiac catheterization 08/28/2019: PROCEDURE(S) PERFORMED [id number]/COR/LV CLINICAL PROFILE AND INDICATIONS Indications: Worsening Angina Heart Failure: None Stress/Imaging Date: 08/21/2019Stress Test with SPECT MPI: Negative Angina Classification Anginal Classification w/in 2 Weeks: CCS IV CAD Presentations: Unstable angina. CONCLUSIONS Elevated Left Ventricular End Diastolic Pressure Normal LV size, wall motion,and systolic function LVEF: by LV gram 65 % [place] Multivessel CAD LAD stent: patent DX1 stent: patent RECOMMENDATIONS Risk factor modification Medical therapy Case discussed / reviewed with Quique Le MD, of interventional cardiology DESCRIPTION OF PROCEDURE The patient arrived to the procedure lab. The risks and benefits of the procedure as well as a full description of our services here and current unavailability of surgical backup were fully explained to the patient and/or their significant other prior to the catheterization. The Timeout was completed, verifying the correct patient and procedure. The patient's procedural site was prepped and draped in the usual fashion. Local anesthetic was given subc utaneously to right groin region with Lidocaine 2%. Using a modified Seldinger technique, arterial access was obtained via the right femoral artery, a 4Fr sheath was inserted Left Coronary Artery selective angiography was performed in multiple views using a 4 Fr. JL5 catheter. Right Coronary Artery selective angiography was then performed in multiple views using a 4 Fr. 3DRC catheter. Left Ventriculography was performed in MELLO projection using a 4 Fr. Pigtail catheter. LV to AO pullback pressures were then recorded.The arterial sheath was pulled and manual compression applied until hemostasis is achieved. CORONARY ANGIOGRAPHY DOMINANCE: Right Dominant LEFT HEART ASSESSMENT Left Ventricular Ejection Fraction: by LV Gram 65 % Normal LV wall motion Elevated Left Ventricular End Diastolic Pressure LVEDP: 19 mmHg LEFT MAIN: Angiographically normal LEFT ANTERIOR DESCENDING ARTERY: PROX LAD: Mild calcification MID LAD: Previously placed stent is patent with angiographic evidence of ectatic / aneurysmal areas DIAGONAL 1: Proximal - Previously placed stent is patent with mild luminal irregularities CIRCUMFLEX ARTERY: Mild luminal irregularities PROX CIRC: Mild calcification RIGHT CORONARY ARTERY: Mild luminal irregularities AORTIC ROOT: Angiographically normal Stress test 08/21/2019: Procedure: Pharmacologic stress nuclear imaging study Indications: Chest pain; fatigue; CAD; PCI Consent: Per the patient Procedure: The patient underwent pharmacologic (Regadenoson) evaluation with a peak heart rate of 94 beats per minute (61 %predicted maximal heart rate) and a peak blood pressure of 118/60 mmHg. The baseline ECG demonstrated sinus rhythm; right bundle branch block. The peak pharmacologic ECG demonstrated no obvious ECG changes. There were no cardiac dysrhythmias pretest, during pharmacologic infusion, or recovery. There was no complaint of chest discomfort during pharmacologic infusion or recovery. The examination was discontinued secondary to completion of protocol. Impression: 1. Pharmacologic (Regadenoson) evaluation 2. Peak pharmacologic ECG with continued right bundle branch block with no obvious ECG changes. 3. There were no cardiac dysrhythmias pretest, during pharmacologic infusion, or recovery. 4. Nuclear images pending Myocardial perfusion imaging study: Technique: The patient was injected with 14.8 millicuries of technetium 99m Cardiolite and subsequently rest SPECT Cardiolite nuclear imaging was obtained in the horizontal long, vertical long, and short axis views. The patient underwent pharmacologic (Regadenoson) evaluation with a peak heart rate of 94 beats per minute (61 % percent predicted maximal heart rate) and a peak blood pressure of 118/60 mmHg. The patient was injected with 44.5 millicuries of technetium 99m Ca rdiolite and subsequently stress SPECT Cardiolite nuclear imaging was obtained in the horizontal long, vertical long, and short axis views. A gated Cardiolite study at peak stress was obtained. Interpretation: Rest and stress SPECT Cardiolite nuclear imaging status post realignment, normalization, and attenuation correction demonstrate a small area of subtle diminished tracer uptake near the apical segments without significant change between rest and stress. There is end systolic thickening and brightening. The gated Cardiolite study demonstrates myocardial thickening and inward wall malka on. The reported LVEF is 72 %. Impression: 1. Rest and stress SPECT Cardiolite nuclear imaging demonstrate myocardial perfusion changes appearing compatible with physiologic apical thinning with no myocardial perfusion changes considered diagnostic for associated stress-induced myocardial ischemia. 2. The gated Cardiolite study reports an LVEF of 72 %. Labs: LDL Cholesterol 69 mg/dL (0-130) HDL Cholesterol 64 mg/dL (40-) Triglycerides 90 mg/dL (-199) VLDL Cholesterol 18 mg/dL (5-40) Diagnostics: Electrocardiogram Stress Test Pulmonary: No Data to Display Assessment and Plan Assessment and Plan (1) Chest pain: Status: Acute Orders: Orders: 12 Lead EKG [place] [facility] [place] Plan - Yola Witt INTERIOR DESIGN CONSULTANT, INTERIOR DESIGN CONSULTANT-C: Patient has complaints of have an occasional ache/pressure in his left shoulder and into his neck. His EKG from today demonstrates sinus rhythm, heart rate 68, and right bundle branch block. With his symptoms, and recent abnormal stress test he will undergo a cardiac catheterization on 05/22/2021. He will continue isosorbide 30mg daily, and Ranexa 1,000mg twice daily. (2) Abnormal stress test: Status: Acute Orders: Orders: Left Heart Cath/COR/LV Percut 05/22/21 Basic Metabolic Profile (BMP) 05/18/21 Partial Thromboplast Time 05/18/21 Prothrombin Time w/INR 05/18/21 CBC W/Diff, Automated 05/18/21 Chest PA and Lateral 05/18/21 Valeria Witt NP, INTERIOR DESIGN CONSULTANT-C: Patient's most recent stress test from 05/05/2021 was abnormal. His EKG from today demonstrated sinus rhythm, heart rate 68, and right bundle branch block. He will be scheduled for a cardiac catheterization on 05/22/2021. (3) Atherosclerotic heart disease of [place] coronary artery without angina pectoris: Status: Chronic Qualifiers: [place] vs. transplanted heart: [place] heart Qualified Code(s): I25.10 - Atherosclerotic heart disease of [place] coronary artery without angina pectoris Comment: PTCA/RINA to Prox LAD 08/11/05 Orders: Orders: Prothrombin Time w/INR 05/18/21 Valeria Witt NP, INTERIOR DESIGN CONSULTANT-C: Patient has a history of coronary artery disease. His most recent stress test from 05/05/2021 demonstrated a small area of diminished tracer uptake in the mid anterior segments which appears to be somewhat more prominent following stress potentially compatible with an area of previous myocardial injury/infarction with ashlee-infarct related myocardial ischemia. He will be scheduled for a cardiac catheterization to evaluate this. At this time, he will continue with his current medical therapy, along with aggressive risk factor and lifestyle modifications. (4) Presence of stent in coronary artery: Status: Chronic Comment: PTCA/RINA to Prox LAD 08/11/05 Valeria Witt NP, INTERIOR DESIGN CONSULTANT-C: Patient has a history of coronary artery disease with stent placement in July of 2005. His most recent stress test from 05/05/2021 demonstrated a small area of diminished tracer uptake in the mid anterior segments which appears to be somewhat more prominent following stress potentially compatible with an area of previous myocardial injury/infarction with ashlee-infarct related myocardial ischemia. He will be scheduled for a cardiac catheterization to evaluate this. At this time, he will continue with his current medical therapy, along with aggressive risk factor and lifestyle modifications. (5) Essential hypertension: Status: Chronic Valeria Witt NP, INTERIOR DESIGN CONSULTANT-C: Patient has a history of hypertension. His blood pressure is well controlled at this time. He will continue amlodipine 5mg daily, and isosorbide 30mg daily. He will continue to monitor his blood pressures at home, and notify our office of any persistent high or low blood pressure readings. (6) Hyperlipidemia: Status: Chronic Qualifiers: Hyperlipidemia type: unspecified Qualified Code(s): E78.5 - Hyperlipidemia, unspecified Plan - Yola Witt INTERIOR DESIGN CONSULTANT, INTERIOR DESIGN CONSULTANT-C: Patient has a history of hyperlipidemia. His PCP monitors this. He will continue rosuvastatin 40mg daily, along with aggressive risk factor and lifestyle modifications. Plan Details Other Medications: New: prednisone Take three 20mg tablets by mouth at noon the day before your cath, Take three 20mg tablets by mouth at bedtime the day before your cath, Take three 20mg tablets by mouth the morning of your cath, 20 mg PO DAILY 9 tabs 0RF diphenhydramine HCl (Benadryl) Take two 25mg capsules at bedtime the day before your cath, Take two 25mg capsules the morning of your cath 25 mg PO QHS 4 caps 0RF famotidine (Pepcid) Take one 20mg tablet at bedtime the day before your cath, Take one 20mg tablet the morning of your cath 20 mg PO DAILY 2 tabs 0RF Other Orders: Orders: Partial Thromboplast Time 05/18/21 R06.02 Additional Comments: Patient will follow up in 5 months, or sooner if needed. Thank you for allowing me to participate in the care of your patient. Please don't hesitate to call if any issues arise. This note was generated using a voice recognition system and there may be incorrect words, spelling, or punctuation that were not noted when reviewing the office note prior to saving. Follow Up: Keep as is (PFM) COVID (Procedure Consent) Procedure Criteria Procedure Criteria: Yes Elective The surgeon/proceduralist and patient have discussed in detail the risk of exposure to and/or potential harm posed by the COVID-19 virus with having a surgery/procedure at this time versus the risk of delaying the surgery/procedure. It is not possible to know either the risk of delaying the surgery or procedure or chance of getting an infection with perfect accuracy, but a joint decision was made between the patient and the surgeon/proceduralist to proceed at this time with the scheduled surgery/procedure as indicated on the consent form. Coding Level of Care Code Off vis,est,level 4 Diagnoses Chest pain R07.9 Abnormal stress test R94.39 Atherosclerotic heart disease of [place] coronary artery without angina pectoris I25.10 [place] vs. transplanted heart: [place] heart Presence of stent in coronary artery Z95.5 Essential hypertension I10 Hyperlipidemia E78.5 Hyperlipidemia type: unspecified Coding Level of Care Code Off vis,est,level 4 Diagnoses Chest pain R07.9 Abnormal stress test R94.39 Atherosclerotic heart disease of [place] coronary artery without angina pectoris I25.10 [place] vs. transplanted heart: [place] heart Presence of stent in coronary artery Z95.5 Essential hypertension I10 Hyperlipidemia E78.5 Hyperlipidemia type: unspecified 05/19/21 0937<Electronically signed by Yola Witt NP INTERIOR DESIGN CONSULTANT-C>Date Yola Witt NP INTERIOR DESIGN CONSULTANT-C Cosigner Signature:Date (if applicable) CC: Dr. Adelaida Fraga, DO ~ Assessment & Plan Addt'l Comments I have re-examined the patient. There are no clinical changes since date of exam
--- NOTE | 2021-05-22 11:37 | CL.D_ITS ---
Patient Name: YUMIKO TAN Study Date: 05/22/2021 Performing: Remigio Lares MD Ht: 70.07 inches 178 cm : 1950 Wt: 273.37 lbs 124 kg Age: 70 Gender: male BSA: 2.39 PROCEDURE(S) PERFORMED [id number])LHC/COR/LV CLINICAL PROFILE AND INDICATIONS Indications: Suspected CAD Heart Failure: None Stress/Imaging Date: 05/05/2021tress Test with SPECT MPI: Positive Intermediate Risk Angina Classification Anginal Classification w/in 2 Weeks: CCS III CAD Presentations: Other: worsening angina CONCLUSIONS Elevated Left Ventricular End Diastolic Pressure Normal LV size, wall motion,and systolic function LVEF: by LV gram 60 % [place] Multivessel CAD LAD: stent: patent DX1: stent: patent RECOMMENDATIONS Risk factor modification Medical therapy DESCRIPTION OF PROCEDURE The patient arrived to the procedure lab. The risks and benefits of the procedure as well as a full d escription of our services here and current unavailability of surgical backup were fully explained to the patient and/or their significant other prior to the catheterization. The Timeout was completed, verifying the correct patient and procedure. The patient's procedural site was prepped and draped in the usual fashion. Local anesthetic was given subcutaneously to right radial region with Lidocaine 2% . Using a modified Seldinger technique, arterial access was obtained via the right radial artery, a 6 Fr sheath was inserted. Right Coronary Artery selective angiography was then performed in multiple v iews using a 5 Fr. 4.0 Brenham catheter. Left Coronary Artery selective angiography was performed in mu ltiple views using a 5 Fr. 4.0 Brenham catheter. Left Coronary Artery selective angiography was perform ed in multiple views using a 5 Fr. JL3.5 catheter. Left Ventriculography was performed in MELLO projection using a 5 Fr. Pigtail catheter. LV to AO pullback pressures were then recorded.The art erial sheath was pulled and a TR Band was applied for hemostasis w/ 10ml air CORONARY ANGIOGRAPHY DOMINANCE: Right Dominant LEFT HEART ASSESSMENT Left Ventricular Ejection Fraction: by LV Gram 60 % Normal LV wall motion Elevated Left Ventricular End Diastolic Pressure LVEDP: 26 mmHg LEFT MAIN: Angiographically normal LEFT ANTERIOR DESCENDING ARTERY: PROX LAD: Mild calcification MID LAD: Previously placed stent is patent with angiographic evidence of ectatic / aneurysmal areas w ith no angiographic significant appearing stenosis DIAGONAL 1: Proximal - Previously placed stent is patent with mild luminal irregularities CIRCUMFLEX ARTERY: Mild luminal irregularities PROX CIRC: Mild calcification RIGHT CORONARY ARTERY: Mild luminal irregularities AORTIC ROOT: Angiographically normal COMPLICATIONS No Complications PROCEDURE MEDICATIONS Fentanyl 50 mcg IV Versed 1 mg IV Versed 1 mg IV Fentanyl 50 mcg IV Oxygen: 2 L/min via nasal cannula Heparin given IA 05/22/2021 10:58:06 Solu-medrol 125 mg IV 05/22/2021 10:33:24 SUMMARY OF HEMODYNAMIC DATA Time AIR REST ECG 09:07:07 AO 107/59 (91) SA 11:00:13 LV 147/-6, 26 11:13:31 LV 148/-3, 26 11:13:38 LV 148/-3, 28 11:14:15 LV 149/-1, 30 11:14:21 LVp 150/-5, 32 11:14:30 AOp 146/71 (101) 11:14:36 Signed By Remigio Lares MD On 05/22/2021 11:36:13 Remigio Lares MD
== END 2021-05-22 23:59 | disposition home or self-care (01) ==
LOC: CLSP 08:41
PROVIDERS: PCP Internal Medicine; Visit Provider Internal Medicine Cardiovascular Disease
DX: R07.9 Chest pain, unspecified (principal); J47.9 Bronchiectasis, uncomplicated; E11.9 Type 2 diabetes mellitus without complications; I10 Essential (primary) hypertension; E78.5 Hyperlipidemia, unspecified; J45.909 Unspecified asthma, uncomplicated; I45.10 Unspecified right bundle-branch block; R94.39 Abnormal result of other cardiovascular function study; G47.33 Obstructive sleep apnea (adult) (pediatric); Z79.82 Long term (current) use of aspirin; Z79.890 Hormone replacement therapy; Z79.899 Other long term (current) drug therapy; Z79.84 Long term (current) use of oral hypoglycemic drugs; Z87.891 Personal history of nicotine dependence
CPT/HCPCS: 93458; 99152; 99153; J7040; Q9967; C1769

== ENCOUNTER 2021-09-08 10:00 | Outpatient (RCR) | payer MEDICARE, OTHER, SELFPAY ==
--- NOTE | 2021-08-06 17:26 | HP.PTEVAL ---
Patient's Visit Information YUMIKO TAN is a 70 year old M referred to Physical Therapy by Dr. Adelaida Fraga DO with a diagnosis of DDD LUMBAR. Date of Evaluation: 08/06/21 Physical Therapist: Jose Gonzáles, PT, Cert MDT, OCS - Visit Plan Frequency: 2x /Week Duration: 4 Weeks Plan: PT INTERVETIONS POSTURAL EX'S, DLS , LUMBAR FLEXION ,FUNCTIONAL STRENGTHENING AND MODLATIES (PRN) - Subjective This 70 male presents to physical therapy with LBP . Patient has had lumbar pain many years. Patient symptoms have been intermittent. Patient has noticed spasms in low back worse in past month . Patient seen DR and recommended PT . Patient has no recent x-rays and no medications. Patient normally occur LS region. Patient has seen prior chiropractors many years ago. Patient noticed weakness in legs especially when attempting to get off of floor. Aggravating carrying ,walking . Alleviating factors sitting . Patient has diagnosis with stenosis per patient . Denies paresthesia/tingling. Bowel/bladder -. Coughing/sneezing -. Patient sleeping good . Major issue issue is weakness. Patient condition affects QOL and function. SOCIAL: . VOCATION: retired - Objective POSTURE: mild forward posture. GAIT: reciprocal posture mild forward. NEUR0: denies paresthesia/tingling ,reflexes L3-4,L4-5,L5-S1 2/3. MMT: quads/hamstrings 4/5, hip flexion 4/5,(peak force) 25.6 hip flexion left. LUMBAR ROM : flexion mod loss ,extension min ,side glides min. FLEXABLITY: hamstrings min - Special Tests L/S Slump test left side: Negative L/S Slump test right side: Negative L/S Left Straight Leg Raise: Negative L/S Right Straight Leg Raise: Negative - Balance/Special Test Scores Oswestry Low Back Score: 21 - Goals Goal 1:: I with HEP Goal Time Frame: 4-6 Weeks Goal 2:: Patient to demonstrate 50% improvement with increase function with less pain Goal Time Frame: 4-6 Weeks Goal 3:: Patient to improve strength of left hip peak force by 5-10 to improve transfers with arms and tall kneeling Goal Time Frame: 4-6 Weeks Goal 4:: Patient to improve lumbar ROM for function of recovery to tie shoes Goal Time Frame: 4-6 Weeks Goal 5:: Patient to improve back oswestry score by 5 points to improve QOL and function Goal Time Frame: 4-6 Weeks - Rehabilitation Potential Physical Therapy Diagnosis: This patient has lumbar pain with possible stenosis with weakness left hip ,pain with movement and extended walking ,better with sitting thus benefit from skilled PT Rehabilitation Potential: Good - Anticipated Interventions Patient/Client Instruction: Educate patient on: Condition, Plan of Care For the Purpose of:: To decrease pain, To increase ROM, To improve muscle performance and motor function, To improve ability to perform ADL's, To increase tolerance to activity/condition/position, To improve ability of physical actions for home/community/work/leisure, To improve health of tissue, To decrease soft tissue restriction, To increase flexibility/ROM, To reduce risk of recurrence Therapeutic Exercise to Include: Strength training, Body mechanics, Postural training, Flexibilty training, Active ROM, Dynamic Lumbar Stabilization For the Purpose of:: To decrease pain, To increase ROM, To improve muscle performance and motor function, To increase tolerance to activity/condition/position, To improve ability of physical actions for home/community/work/leisure, To improve health of tissue, To decrease soft tissue restriction, To increase flexibility/ROM TENS: Yes IF ES: Yes Cryotherapy (ice pack, ice massage): Yes Thermo therapy (hot pack): Yes For the Purpose of:: To decrease pain, To improve nutrient delivery to tissue, To increase oxygenation perfusion, To improve health of tissue, To decrease soft tissue restriction Thank you for the opportunity to evaluate your patient. For Medicare and Medicare HMO plans, please review the plan of care and approve it. It will need to be FAXED BACK to us at [phone] for Medicare purposes. For Medicare only, by signing this I certify the plan of care. Please let me know if there are questions or concerns regarding this plan of care. Physician Signature: Date:
--- NOTE | 2021-09-08 11:08 | HP.PTDCSUM ---
It has been my pleasure to treat YUMIKO TAN referred by Dr. Adelaida Fraga DO, with the diagnosis of DDD LUMBAR for a total of 9 visit(s). Discharge Date: 09/08/21 Please see the following information for a summary of their discharge status. Subjective: Seen DR last .. Plan for MRI Carrying things around and lifting Bilateral Back Pain Intensity (Out of 10): 1 % Improvement: 25 Objective/Function: POSTURE: mild forward posture. GAIT: reciprocal pattern mild forward posture. NEURO: denies paresthesia/tingling. MMT: WFL 4/5. LUMBAR ROM: flexion min loss ,extension min loss ,side glides Goal 1:: I with HEP Goal Progress: Goal Met Goal 2:: Patient to demonstrate 50% improvement with increase function with less pain Goal Progress: Progressing Goal 3:: Patient to improve strength of left hip peak force by 5-10 to improve transfers with arms and tall kneeling Goal Progress: Progressing Goal 4:: Patient to improve lumbar ROM for function of recovery to tie shoes Goal Progress: Goal Met Goal 5:: Patient to improve back oswestry score by 5 points to improve QOL and function Goal Progress: Progressing Plan: D/C Discharge Comments: hep and Possible MRI If there are questions or concerns regarding this patient's physical therapy, please feel free to call me at [phone]. Thank you for the referral of this patient. Sincerely, Jose Gonzáles, PT, Cert MDT, OCS Balance/Gait/Functional tests - Balance/Special Test Scores Oswestry Low Back Score: 9
== END 2021-09-08 19:00 | disposition home or self-care (01) ==
LOC: PT 10:00
PROVIDERS: PCP Internal Medicine; Referring Provider Internal Medicine; Visit Provider Internal Medicine
DX: M51.36 Other intervertebral disc degeneration, lumbar region (principal)
CPT/HCPCS: 97110; 97162

== ENCOUNTER → 2021-10-30 | Outpatient (CLI) | payer MEDICARE, OTHER, SELFPAY ==
--- NOTE | 2021-10-30 08:02 | MRI_ITS ---
HISTORY: lumbar radiculopathy, numbness and tingling, did PT with no improvement. TECHNIQUE: Multiplanar and multisequence MR images of the lumbar spine were obtained without intravenous contrast. 120 images. COMPARISON: XR 12/19/2020, MR 06/08/2018. FINDINGS: VERTEBRAE: Vertebral body heights maintained. Mild degenerative bone marrow endplate changes at L1-2. Transitional lumbosacral anatomy noted with a rudimentary disc at S1-2. ALIGNMENT: No significant anterior or posterior subluxation. CONUS: Normal morphology and position of the conus medullaris at L1. INTERVERTEBRAL DISCS: L1-2, L2-3: Mild disc bulges with facet arthropathy. Minimal narrowing of the thecal sac. No significant foraminal narrowing. L3-4: Minimal narrowing of the thecal sac secondary to prominent dorsal epidural fat. No significant posterior disc protrusion or foraminal narrowing. L4-5: Minimal disc bulge with facet arthropathy and developmental narrowing of the spinal canal resulting in mild central canal stenosis and bilateral foraminal narrowing. L5-S1: No significant posterior disc protrusion, central canal stenosis, or foraminal narrowing. Facet arthropathy noted. SOFT TISSUES: Mild posterior subcutaneous edema. MRI/Spine Lumbar (Routine) IMPRESSION: Mild degenerative disc disease of the lumbar spine as above. Electronically Signed: Ethel Burch MD at 8:44 EDT ,
== END | disposition home or self-care (01) ==
LOC: MRI 08:02
PROVIDERS: PCP Internal Medicine; Referring Provider Internal Medicine; Visit Provider Internal Medicine
DX: M54.16 Radiculopathy, lumbar region (principal)
CPT/HCPCS: 72148

== ENCOUNTER → 2021-12-10 | Outpatient (CLI) | payer MEDICARE, OTHER, SELFPAY ==
--- NOTE | 2021-12-10 09:44 | CDU_ITS ---
Reason For Study: CAROTID STENOSIS Rt. Velocities/BP Lt. Velocities/BP Prox CCA 74.3/11.7 cm/sec. Prox CCA 80.1/18.6 cm/sec. Mid CCA 61.1/9.5 cm/sec. Mid CCA 73.5/17.5 cm/sec. Dist CCA 43.9/9.8 cm/sec. Dist CCA 66.9/17.5 cm/sec. Prox ICA 37.9/11.5 cm/sec. Prox ICA 63.6/13.1 cm/sec. Mid ICA 54.1/15.6 cm/sec. Mid ICA 40.9/13.4 cm/sec. Dist ICA 60.7/16.7 cm/sec. Dist ICA 48.6/16.7 cm/sec. Rt. ICA/CCA = 60.7/61.1=1.0. Lt. ICA/CCA = 63.6/73.5=0.9. Prox ECA 70.2/10.9 cm/sec. Prox ECA 72.4/9.8 cm/sec. Rt. Vert. 45.3/9.0 cm/sec. Lt. Vert. 45.3/13.4 cm/sec. Right Extracranial There is intimal thickening but no significant atherosclerotic plaque noted in the right common carotid artery. There is no significant atherosclerotic plaque noted in the right internal carotid artery. There is no significant atherosclerotic plaque noted in the right external carotid artery. Antegrade flow is noted in the right vertebral artery. Left Extracranial There is intimal thickening but no significant atherosclerotic plaque noted in the left common carotid artery. There is heterogeneous, irregular atherosclerotic plaque noted in the left internal carotid artery. There is intimal thickening but no significant atherosclerotic plaque noted in the left external carotid artery. Antegrade flow is noted in the left vertebral artery. Procedure Carotid Duplex [id number]. This is a Carotid Duplex examination using B-mode, color flow and specral Doppler. Exam performed in department. VL/Carotid Duplex Ultrasound Interpretation Summary Normal right extracranial internal carotid. Mild (<50%) stenosis left extracranial internal carotid. Patent and antegrade vertebrals bilaterally. Ordering Physician: Adelaida Fraga Referring Physician: Adelaida Fraga Performed By: Nilda Rahman, MORE, RVT
== END | disposition home or self-care (01) ==
LOC: CVS 09:43
PROVIDERS: PCP Internal Medicine; Referring Provider Internal Medicine; Visit Provider Internal Medicine
DX: I65.23 Occlusion and stenosis of bilateral carotid arteries (principal)
CPT/HCPCS: 93880

== ENCOUNTER → 2022-03-15 | Outpatient (CLI) | payer MEDICARE, OTHER, SELFPAY ==
[2022-03-15 15:01] LABS: Absolute Neutrophil Count 4.1 X10^3/uL (2.0-7.7); Basophil# 0.04 X10^3/uL; Basophil% 0.6 % (0-1); Eosinophil# 0.25 X10^3/uL; Eosinophils% 3.6 % (0-5); Hematocrit 41.5 % (40-54); Hemoglobin 13.9 g/dL (13.0-16.5); Lymphocyte % 30.2 % (19-41); Mean Corp Hgb Conc 33.5 g/dL (32-36); Mean Corpuscular Hgb 31.8 pg (27.0-32.0); Mean Platelet Vol. 8.8 fl (6.2-12.0); Monocyte# 0.49 X10^3/uL; Monocyte% 7.1 % (0-10); NRBC Flagged by Analyzer 0 % (0-5); Neutrophil # 4.05 X10^3/uL (2.7-7.7); Neutrophil % 58.2 % (47-70); Platelet Count 217 K/mm3 (150-450); RBC Distribution Width CV 13.4 % (11.6-14.6); RBC Distribution Width SD 46.9 fl (35.1-43.9); Red Blood Count 4.37 M/mm3 (4.6-6.2)
[2022-03-15 16:05] LABS: Vitamin B12 409 pg/mL (211-911); Vitamin D,25 Hydroxy 54.5 ng/mL
[2022-03-15 16:11] LABS: ALB/GLOB Ratio 0.9 RATIO (0.9-2.4); AST(SGOT) 19 U/L (15-37); Alanine Aminotransfer ALT/SGPT 24 U/L (16-61); Albumin, Serum 3.3 g/dL (3.2-5.0); Alkaline Phosphatase 45 U/L (45-117); Anion Gap 8 (5-15); BUN 17 mg/dL (7-18); BUN/Creat Ratio 13.5 RATIO (10-20); Chloride 102 mmol/L (98-107); Cholesterol 127 mg/dL (200); Creatinine, Serum 1.26 mg/dL (0.70-1.30); EST Glomerular Filtration Rate 60 mL/min (>60); Est Glom Filt Rate - Afr Amer 73 mL/min (>60); Globulin 3.5 g/dL (2.2-4.2); Glucose 115 mg/dL (74-106); High Density Lipoprotein 57 mg/dL; Potassium 3.8 mmol/L (3.5-5.1); Protein, Total 6.8 g/dL (6.4-8.2); Sodium Level 137 mmol/L (136-145); Triglycerides 122 mg/dL; Very Low Density Lipoprotein 24 mg/dL (5-40)
[2022-03-15 16:49] LABS: Hemoglobin A1c 6.1 % (3.8-5.6)
== END | disposition home or self-care (01) ==
LOC: LAB 13:18
PROVIDERS: PCP Internal Medicine; Referring Provider Internal Medicine; Visit Provider Internal Medicine
DX: E11.9 Type 2 diabetes mellitus without complications (principal); E78.49 Other hyperlipidemia; F34.1 Dysthymic disorder; E53.8 Deficiency of other specified B group vitamins
CPT/HCPCS: 36415; 80053; 80061; 82306; 82607; 82746; 83036; 85025

== ENCOUNTER → 2022-05-12 | Outpatient (CLI) | payer MEDICARE, OTHER, SELFPAY ==
--- NOTE | 2022-05-12 15:40 | NEURO ---
NCS and/or EMG Patient Report Ordering Doctor: Adelaida Fraga DATE OF SERVICE: 05/12/22 Rigoberto presents for electrodiagnostic testing of the lower limbs. He reports weakness in both legs, worse on the right side. He reports this is intermittent. Electrodiagnostic findings: Right peroneal motor nerve demonstrates normal distal latency, amplitude and conduction velocity. Left peroneal motor nerve demonstrates normal distal latency, amplitude and conduction velocity. Normal tibial motor response bilaterally. Prolonged H reflex bilaterally. Prolonged tibial F wave bilaterally. Prolonged left peroneal F-wave. Prolonged sural latency is noted bilaterally. Superficial peroneal response within normal limits bilaterally. On needle EMG, all muscles tested in the lower limbs showed no evidence of denervation with normal motor action potentials. Electrodiagnostic impression: This is an abnormal study in the lower limbs 1. Electrodiagnostic findings suggestive of peripheral polyneuropathy, sensory greater than motor, mild in nature. 2. No electrodiagnostic evidence for lumbosacral radiculopathy or myopathy.
== END | disposition home or self-care (01) ==
LOC: PSN 07:06
PROVIDERS: PCP Internal Medicine; Visit Provider Internal Medicine
DX: R29.898 Other symptoms and signs involving the musculoskeletal system (principal)
CPT/HCPCS: 95886; 95910

== ENCOUNTER 2022-06-28 14:42 | Emergency (ER) | payer MEDICARE, OTHER, SELFPAY ==
[2022-06-28 14:44] VITALS: BP 134/87; PULSE 86; RESP 18; TEMP 36.7; O2SAT 97
[2022-06-28 16:47] VITALS: BMI 38.6
[2022-06-28 17:02] LABS: Bacteria 0 SEEN /hpf (None Seen); Mucous, Urine 0 SEEN /hpf (<or=2+)
[2022-06-28 17:16] LABS: Color, Urine Yellow (Yellow); Glucose, Dipstick Normal (Normal); Ketone-Dipstick 15 mg/dl (Negative); Leukocyte Esterase-Dipstick 25 /ul (Negative); Nitrite-Dipstick Negative (Negative); Occult Blood-Urine 250 /ul (Negative); Protein-Dipstick 30 mg/dl (Negative); Specific Gravity, Urine 1.025 (1.002-1.030); Urine Bilirubin Dipstick Negative (Negative); Urine Clarity Sl. Cloudy (Clear); Urine Urobilinogen Normal (Normal)
[2022-06-28 17:31] LABS: Red Blood Cells-Urine 50-100 SEEN /hpf (0-5); Squamous Epithelial Cells - UA 0-5 SEEN /hpf (0-5); White Blood Cells 0-5 SEEN /hpf (0-5)
--- NOTE | 2022-06-28 17:59 | CT_ITS ---
STUDY: CT Abdomen And Pelvis W/O Contrast Injection 06/28/2022 7:05 PM REASON FOR EXAM: Male, 71 years old. Abdominal pain right flank pain Individualized dose optimization techniques were used for this CT. Comparison: 01.14.20 TECHNIQUE: CT Abdomen And Pelvis W/O Contrast Injection FINDINGS: There are atherosclerotic calcifications of visualized coronary arteries. The visualized portions of the heart are within normal limits. Normal liver. Normal gallbladder and extrahepatic biliary system. Normal spleen. Normal pancreas. Normal bilateral adrenal glands. Moderate hydronephrosis caused by right 5.2 mm distal ureteral stone. Non obstructive 2 mm left renal parenchymal stones. Normal visualized stomach. Normal small intestine. There are multiple colonic diverticula consistent with diverticulosis. There is non-visualization of the appendix. There are calcifications of the abdominal aorta. This is consistent for atherosclerotic disease. There is NO abdominal aortic aneurysm. Vascular workup can be obtained based on clinical correlation. Normal inferior vena cava. Subcentimeter mesenteric lymph nodes. Normal urinary bladder. There are prostatic calcifications. There is an umbilical hernia containing fat. There are diffuse degenerative changes of the visualized lumbar spine. CT/Abdomen/Pelvis without Cont IMPRESSION: (NOT LISTED IN ORDER OF SIGNIFICANCE) Moderate hydronephrosis caused by right 5.2 mm distal ureteral stone. Other findings as above. Electronically Signed: Chava Fu MD at 19:20 EDT ,
[2022-06-28 18:25] VITALS: BP 106/64; PULSE 66; RESP 14; O2SAT 96
[2022-06-28] MEDS: Ondansetron 4 MG/2 ML Vial IV (18:33)
[2022-06-28] MEDS: Morphine 4 MG/ML Syringe IV (18:34)
[2022-06-28 18:41] LABS: Absolute Lymphocyte Count 1.71 X10^3/uL (0.83-4.51); Absolute Neutrophil Count 6.5 X10^3/uL (2.0-7.7); Basophil# 0.03 X10^3/uL; Basophil% 0.3 % (0-1); Eosinophil# 0.13 X10^3/uL; Eosinophils% 1.4 % (0-5); Hematocrit 40.5 % (40-54); Hemoglobin 13.9 g/dL (13.0-16.5); Lymphocyte # 1.71 X10^3/ul (0.83-4.51); Lymphocyte % 18.8 % (19-41); Mean Corp Hgb Conc 34.3 g/dL (32-36); Mean Corpuscular Hgb 31.8 pg (27.0-32.0); Mean Corpuscular Volume 92.7 fL (80-94); Mean Platelet Vol. 8.6 fl (6.2-12.0); Monocyte# 0.67 X10^3/uL; Monocyte% 7.4 % (0-10); NRBC Flagged by Analyzer 0 % (0-5); Neutrophil # 6.54 X10^3/uL (2.7-7.7); Neutrophil % 71.8 % (47-70); Platelet Count 206 K/mm3 (150-450); RBC Distribution Width CV 13.1 % (11.6-14.6); RBC Distribution Width SD 44.2 fl (35.1-43.9); Red Blood Count 4.37 M/mm3 (4.6-6.2); White Blood Count 9.1 K/mm3 (4.4-11.0)
[2022-06-28 18:50] LABS: Anion Gap 8 (5-15); BUN 18 mg/dL (7-18); Chloride 99 mmol/L (98-107); EST Glomerular Filtration Rate 64 mL/min (>60); Est Glom Filt Rate - Afr Amer 77 mL/min (>60); Estimated Creatinine Clearance 59.99 ml/min; Glucose 114 mg/dL (74-106); Potassium 4.2 mmol/L (3.5-5.1); Sodium Level 134 mmol/L (136-145)
--- NOTE | 2022-06-28 19:44 | EDS_ITS ---
HPI History of Present Illness Chief Complaint: Flank Pain Narrative Narrative: 71-year-old male presenting with right flank pain. He states it feels consistent with previous kidney stones that he had. He has mild nausea. He states the pain comes and goes. Sharp in nature. It radiates to the right inguinal region. To have instrumentation before for large kidney stones. He states he does follow with Dr. Lowe. [facility] Medical History Abnormal stress test Anxiety Asthma Atherosclerotic heart disease of [place] coronary artery without angina pectoris BPH (benign prostatic hyperplasia) Bronchiectasis Bronchiectasis Depression Essential hypertension GERD (gastroesophageal reflux disease) History of left heart catheterization (LHC) (~05/22/21) Hyperlipidemia URIEL (obstructive sleep apnea) Pre-diabetes Presence of stent in coronary artery (~08/11/05) Prinzmetal angina Pulmonary fibrosis SOB (shortness of breath) Type 2 diabetes mellitus Home Medications aspirin 81 mg chewable tablet 81 mg PO DAILY heart health 06/28/13 [History Last Taken 05/22/21] montelukast 10 mg tablet 10 mg PO QHS copd 06/28/13 [History Last Taken 10/17/13] pantoprazole 40 mg tablet,delayed release 40 mg PO BID gerd 06/28/13 [History Last Taken 05/22/21] albuterol sulfate 2.5 mg/3 mL (0.083 %) solution for nebulization 1.25 mg inhalation Q4H PRN Bronchodialation 07/12/17 [History Last Taken Unknown] albuterol sulfate 90 mcg/actuation aerosol inhaler (Proventil HFA) 2 puff inhalation Q4H PRN Bronchodialation 07/12/17 [History Last Taken Unknown] eszopiclone 3 mg tablet (Lunesta) 3 mg PO QHS sleep 07/12/17 [History Last Taken Unknown] lorazepam 0.5 mg tablet (Ativan) 0.5 mg PO QDAY PRN Anxiety 07/12/17 [History Last Taken Unknown] buspirone 10 mg tablet 30 mg PO BID depression 07/14/17 [History Last Taken 11/05/19] rosuvastatin 40 mg tablet 40 mg PO QHS cholesterol 07/14/17 [History Last Taken Unknown] tamsulosin 0.4 mg capsule 0.4 mg PO QHS prostate 07/14/17 [History Last Taken Unknown] metformin 500 mg tablet,extended release 24 hr 1,000 mg PO QHS 01/10/18 [History Last Taken 08/27/19] vilazodone 40 mg tablet 40 mg PO DAILY antidepressant 01/05/19 [History Last Taken Unknown] levothyroxine 50 mcg tablet 50 mcg PO DAILY 04/07/21 [History Last Taken Unknown] amlodipine 5 mg tablet 5 mg PO BID #180 tabs 10/12/21 [Rx Last Taken Unknown] venlafaxine 75 mg capsule,extended release 24 hr (Effexor XR) 75 mg PO .COMPLEX depression 10/12/21 [History Last Taken Unknown] ranolazine 1,000 mg tablet,extended release,12 hr 1,000 mg PO BID heart #180 tabs 10/21/21 [Rx Last Taken Unknown] isosorbide mononitrate 60 mg tablet,extended release 24 hr 60 mg PO DAILY #90 tabs 04/07/22 [Rx Last Taken Unknown] nitroglycerin 0.4 mg sublingual tablet 0.4 mg sublingual Q5-15M PRN chest pain #25 tabs 05/20/22 [Rx Last Taken Unknown] montelukast 10 mg tablet (Singulair) 10 mg PO DAILY 06/28/22 [History Last Taken Unknown] Allergy/AdvReac Type Severity Reaction Status Date / Time iodine Allergy Rash, Verified 06/28/22 14:43 upset stomach, facial swelling Penicillins Allergy Rash Verified 06/28/22 14:43 pseudoephedrine HCl Allergy mood Verified 06/28/22 14:43 [From Actifed] changes Sulfa (Sulfonamide Allergy Rash Verified 06/28/22 14:43 Antibiotics) triprolidine HCl Allergy mood Verified 06/28/22 14:43 [From Actifed] changes ibuprofen AdvReac not able Verified 06/28/22 14:43 to use d/t heart condition Family History Father CAD (coronary artery disease) CVA (cerebral vascular accident) Hypertension Alzheimer's dementia Brother Rheumatoid arthritis Brother Cancer non hodgkins lymphoma Surgical History History of carpal tunnel surgery History of esophagogastroduodenoscopy (EGD) History of lithotripsy History of parathyroid surgery History of rotator cuff surgery History of tonsillectomy Hx of colonoscopy Postsurgical percutaneous transluminal coronary angioplasty (PTCA) status Social History Smoking Status: Former smoker how long ago did patient quit smokin years ago alcohol intake: current alcohol intake frequency: a few times a month Alcohol type: beer substance use type: does not use caffeine: Yes Type: coffee Number of servings: 2 ROS ROS ED Constitutional Constitutional ED: Denies chills, fever(s) or sweats Eyes Eyes: Denies blurry vision or change in vision ENT ENT ED: Denies ear pain or sore throat Cardiovascular Cardiovascular: Denies chest pain, palpitations or racing heartbeat Respiratory/Chest Respiratory/Chest: Denies cough, dyspnea or sputum Gastrointestinal Gastrointestinal: Reports abdominal pain and nausea; Denies constipation, diarrhea or vomiting Genitourinary Genitourinary ED: Reports dysuria; Denies hematuria or urinary frequency Musculoskeletal Musculoskeletal: Denies arthralgias, myalgias or neck pain Integumentary Denies abscess, Abrasions or rash Neurologic Neurologic: Denies headache(s), paresthesias or weakness Psychiatric Psychiatric: Denies anxiety, depression, suicidal ideation or suicidal thoughts Endocrine Endocrinology: Denies polydipsia or polyuria EXAM Physical Exam Const Vital Signs: 06/28/22 14:44 06/28/22 18:25 Temperature 98.1 F Temperature Source Temporal Pulse Rate 86 66 Respiratory Rate 18 14 Blood Pressure 134/87 H 106/64 Blood Pressure Mean 102 78 Pulse Ox 97 96 Oxygen Delivery Method Room Air Positive well nourished General Appearance ED: NAD; Negative for pallor HEENT Reports moist mucous membranes normocephalic and atraumatic Eyes PERRL and EOMs intact bilaterally Resp normal respiratory effort Effort and Inspection: Negative for retractions Cardio regular rate and regular rhythm GI non-tender Bladder / Kidney Exam: CVA tenderness right Neuro oriented x3 and CN's II-XII intact bilaterally Sensorium / Orientation: alert and oriented to person Motor Exam: strength 5/5 throughout Psych mental status grossly normal Skin General Skin Exam: Negative for jaundice or pallor MDM MDM MDM Narrative Medical decision making narrative: Patient presenting with right flank pain. States that sharp. Is consistent with previous kidney stone pain. Differential includes kidney stone, pyelonephritis. Patient medicated with morphine, Zofran. CBC was obtained and shows a white cell count of 9.1. Hemoglobin stable 13.9. BMP shows normal renal function and electrolytes. Urinalysis negative for infection but does have [address] of the abdomen pelvis was obtained which shows a right-sided 5.2 distal ureteral stone. Patient counseled on findings. He is counseled he will need to follow-up with urology. He will be given [place] and Zofran for home. Return precautions discussed. Impression: 1. 5.2 mm ureteral stone 2. Hematuria 3. Right-sided hydronephrosis Lab Data Labs: Laboratory Results - last 24 hr 06/28/22 06/28/22 06/28/22 16:00 16:00 16:55 WBC 9.1 RBC 4.37 L Hgb 13.9 Hct 40.5 MCV 92.7 MCH 31.8 MCHC 34.3 RDW Std Deviation 44.2 H RDW Coeff of Carla 13.1 Plt Count 206 MPV 8.6 Immature Gran % (Auto) 0.300 Neut % (Auto) 71.8 H Lymph % (Auto) 18.8 L [place] % (Auto) 7.4 Eos % (Auto) 1.4 Baso % (Auto) 0.3 Absolute Neuts (auto) 6.5 Absolute Lymphs (auto) 1.71 Nucleated RBC % 0 Sodium 134 L Potassium 4.2 Chloride 99 Carbon Dioxide 27.0 Anion Gap 8 BUN 18 Creatinine 1.20 Estim Creat Clear Calc 59.99 Est GFR (MDRD) Af Amer 77 Est GFR (MDRD) Non-Af 64 BUN/Creatinine Ratio 15.0 Glucose 114 H Calcium 9.0 Urine Color Yellow Urine Clarity Sl. Cloudy Urine pH 5.0 Ur Specific [place] 1.025 Urine Protein 30 H Urine Glucose (UA) Normal Urine Ketones 15 H Urine Occult Blood 250 H Urine Nitrite Negative Urine Bilirubin Negative Urine Urobilinogen Normal Ur Leukocyte Esterase 25 H Urine RBC 50-100 SEEN Urine WBC 0-5 SEEN Ur Squamous Epith Cells 0-5 SEEN Urine Bacteria 0 SEEN Urine Mucus 0 SEEN Radiography Diagnostic Testing: Clinical Impression(s) from Imaging Studies Abdomen/Pelvis CT 06/28/22 17:59 IMPRESSION: (NOT LISTED IN ORDER OF SIGNIFICANCE) Moderate hydronephrosis caused by right 5.2 mm distal ureteral stone. Other findings as above. Electronically Signed: Chava Fu MD at 19:20 EDT , Discharge Plan Triage Chief Complaint: Flank Pain Other Complaint: Abd Pain ED Provider: Jimmy Rincon Dx/Rx/DC Orders Prescriptions: No Action rosuvastatin 40 mg tablet 40 mg PO QHS eszopiclone [Lunesta] 3 mg tablet 3 mg PO QHS lorazepam [Ativan] 0.5 mg tablet 0.5 mg PO QDAY PRN (Reason: Anxiety) albuterol sulfate 2.5 mg /3 mL (0.083 %) solution for nebulization 1.25 mg INHALATION Q4H PRN (Reason: Bronchodialation) albuterol sulfate [Proventil HFA] 90 mcg/actuation HFA aerosol inhaler 2 puff INHALATION Q4H PRN (Reason: Bronchodialation) buspirone 10 mg tablet 30 mg PO BID venlafaxine [Effexor XR] 75 mg capsule,extended release 24hr 75 mg PO .COMPLEX Rx Instructions: 75 mg orally 75 mg in the am and 2 tab 150mg in the evening; metformin 500 mg tablet extended release 24 hr 1,000 mg PO QHS levothyroxine 50 mcg tablet 50 mcg PO DAILY amlodipine 5 mg tablet 5 mg PO BID Qty: 180 4RF isosorbide mononitrate 60 mg tablet extended release 24 hr 60 mg PO DAILY Qty: 90 3RF aspirin 81 MG tablet,chewable 81 mg PO DAILY Label Comments: heart Rx Instructions: will stop 5 days prior montelukast 10 MG tablet 10 mg PO QHS Label Comments: allergies pantoprazole 40 MG tablet 40 mg PO BID Label Comments: acid reflux tamsulosin 0.4 mg capsule,extended release 24hr 0.4 mg PO QHS Label Comments: INCREAS URINE FLOW vilazodone 40 MG tablet 40 mg PO DAILY montelukast [Singulair] 10 mg Tablet 10 mg PO DAILY ranolazine 1,000 mg tablet extended release 12 hr 1,000 mg PO BID Qty: 180 3RF nitroglycerin 0.4 mg tablet, sublingual 0.4 mg SUBLINGUAL Q5-15M PRN (Reason: chest pain) Qty: 25 3RF Rx Instructions: do not exceed 3 doses per episode Primary Care Provider: Adelaida Fraga Referrals: Adelaida rFaga DO [Primary Care Provider] -
== END 2022-06-28 21:33 | disposition home or self-care (01) ==
PROVIDERS: Emergency Provider Student in an Organized Health Care Education/Training Program; PCP Internal Medicine; Visit Provider Student in an Organized Health Care Education/Training Program
DX: R10.9 Unspecified abdominal pain (principal); E11.9 Type 2 diabetes mellitus without complications; N13.2 Hydronephrosis with renal and ureteral calculous obstruction; I25.10 Atherosclerotic heart disease of native coronary artery without angina pectoris; R31.9 Hematuria, unspecified; E78.5 Hyperlipidemia, unspecified; Z87.891 Personal history of nicotine dependence; I10 Essential (primary) hypertension; Z87.442 Personal history of urinary calculi; R30.0 Dysuria
CPT/HCPCS: 74176; 80048; 81001; 85025; 96374; 96375; 99282; A4216; J2405

== ENCOUNTER → 2022-07-08 | Outpatient (CLI) | payer MEDICARE, OTHER, SELFPAY ==
--- NOTE | 2022-07-08 12:50 | MRI_ITS ---
INDICATION: DX: M54.2 neck pain and R29.898 bilateral leg weakness. Has compl -- DX: M54.2 neck pain and R29.898 bilateral leg weakness. Has compl -- DX: M54.2 neck pain and R29.898 bilateral leg weakness. Has compl EXAMINATION: MRI - MR Spine Cervical W/O Contrast TECHNIQUE: Multiplanar and multisequence MR images of the cervical spine were performed. IV Contrast Dosage and Agent: None. COMPARISON: None. FINDINGS: VERTEBRAE: Normal vertebral bodies and posterior elements. VERTEBRAL ALIGNMENT: Straightening of cervical lordosis due to degenerative disc disease detailed below. CERVICAL SPINAL CORD: Mild flattening the cord anteriorly at C3-4, C4-5, and C5-6 due to pathology detailed below. Normal cord signal intensity. C2/C3: Moderate disc desiccation. C3/C4: Moderate disc desiccation, mild disc osteophyte, bilateral facet arthropathy and uncovertebral joint disease with severe bilateral neural foraminal encroachment. C4/C5: Moderate disc desiccation, severe loss of disc space height, mild disc osteophyte, bilateral facet arthropathy and uncovertebral joint disease with severe bilateral neural foraminal encroachment. C5/C6: Severe disc desiccation and loss of disc space height, mild disc osteophyte, mild central stenosis, bilateral facet arthropathy and uncovertebral joint disease with severe bilateral neural foraminal encroachment. C6/C7: Severe disc desiccation and loss of disc space height, mild disc osteophyte, bilateral facet arthropathy and uncovertebral joint disease with severe bilateral neural foraminal encroachment. C7/T1: Moderate disc desiccation, moderate loss of disc space height, mild disc osteophyte. NECK SOFT TISSUES: No prevertebral soft tissue swelling. There is no cervical adenopathy. MRI/Spine Cervical (Routine) IMPRESSION: Mild disc osteophyte C3-T1. Multilevel degenerative disc disease, flattening the cord anteriorly, facet arthropathy, uncovertebral joint disease and neural foraminal encroachment as above. Electronically Signed: Jaison Rivero MD, GRACIELA at 21:25 EDT ,
== END | disposition home or self-care (01) ==
LOC: MRI 12:41
PROVIDERS: PCP Internal Medicine; Referring Provider Internal Medicine; Visit Provider Internal Medicine
DX: M54.2 Cervicalgia (principal)
CPT/HCPCS: 72141

== ENCOUNTER 2022-07-14 08:01 | Outpatient (RCR) | payer MEDICARE, OTHER, SELFPAY ==
--- NOTE | 2022-07-14 10:01 | HP.PTEVAL_ITS ---
Patient's Visit Information YUMIKO TAN is a 71 year old M referred to Physical Therapy by Dr. Adelaida Fraga DO with a diagnosis of Lumbar radiculopathy. Date of Evaluation: 07/14/22 Physical Therapist: Chava Hwang PT, ATC - Visit Plan Frequency: 1x/Week Duration: 1 Week Plan: Pt was evaluated for a power scooter at this time. Pt has lumbar spine radiculopathy which results in LE weakness and intolerance to prolonged ambulation. Pt would benefit from an electric scooter to aid with home and community mobility at this time as he is limited with all ADL's and IADL's that either require prolonged standing or consists of a mobility component - Subjective Pt reports he has noticed increased difficulty for the last 5-6 years. Pt notes he developed LBP at that time which would radiate down his LE's. Pt reports this pain has progressively worsened over this time span which has made ambulation very difficult. Pt notes he has fallen several times over the last year, noting he has fallen 2 times this week already. Pt notes he is able to walk for a bit, but slowly notices his LBP increases which ultimately results in his LB and legs getting weak. Pt reports he is able to negotiate room to room at home on occasion, but often finds that he has to place chairs throughout his home secondary to legs wanting to give out. Pt reports he has to sit in order to perform most of his IADL's and ADL's secondary to his legs wanting to give out on him including bathing, brushing teeth, getting dressed, preparing food, and washing dishes. Pt reports sitting does not bother him at all. Pt notes he has had xrays of his LB which revealed degenerative changes in his spine. Pt reports he lives at home with his who has dementia. LBP is 1/10 at this time. - Pain LBP Pain Intensity (Out of 10): 1 Pain Intensity Range: 2 - Objective Neuro: Pt is hyposensitive to light touch at L4 level bilaterally. All other B LE sensation is WNL to light touch. MMT: B hips are grossly 4+/5 throughout. B knee flex= 4-/5, B knee ext= 4/5. ROM: B LE's are WFL when compared bilaterally. Pt is severely limited with L/S extension and sidebending. Flexion is moderately limited. Gait: Pt is able to ambulate approximately 70 feet until wanting to sit down secondary to LB and LE weakness. Pt ambulates with a very slow cadance. Pt experienced no LOB, but displayed very unsteady gait. Posture: Pt sits and stands with decreased L/S lordosis, increased T/S kyphosis, and forward head posture. Pt sits and stands with right sidebending for comfort. - Goals Goal 1:: NA - Rehabilitation Potential Physical Therapy Diagnosis: Pt has LE weakness, difficulty with ADLS and IADLS, and limited ambulatory tolerance secondary to lumbar radiculothpy Rehabilitation Potential: Good - Anticipated Interventions Patient/Client Instruction: Educate patient on: Condition, Plan of Care For the Purpose of:: To improve self management Thank you for the opportunity to evaluate your patient. For Medicare and Medicare HMO plans, please review the plan of care and approve it. It will need to be FAXED BACK to us at [phone] for Medicare purposes. For Medicare only, by signing this I certify the plan of care. Please let me know if there are questions or concerns regarding this plan of care. Physician Signature: Date:
== END 2022-07-14 19:00 | disposition home or self-care (01) ==
LOC: PT 08:01
PROVIDERS: PCP Internal Medicine; Referring Provider Internal Medicine; Visit Provider Internal Medicine
DX: M54.16 Radiculopathy, lumbar region (principal)
CPT/HCPCS: 97161

== ENCOUNTER 2022-09-15 13:30 | Outpatient (RCR) | payer MEDICARE, OTHER, SELFPAY ==
--- NOTE | 2022-08-12 14:08 | HP.PTEVAL ---
Patient's Visit Information YUMIKO TAN is a 71 year old M referred to Physical Therapy by Dr. Jose Burton MD with a diagnosis of CERVICAL SPONDYLOSIS. Date of Evaluation: 08/12/22 Physical Therapist: Melvina Kinney, PT, Cert MDT - Visit Plan Frequency: 2-3x /Week Duration: 4-6 Months Plan: *USE GAIT BELT FOR SAFETY*. STS AND TUG TESTS NEXT VISIT. ANY NEW SX'S OR INCREASE IN SX'S HOLD PT AND REFER BACK TO DOC. GAIT TRAINING. POSTURE CORRECTION/STRENGTHENING, INSTRUCTION IN APPROPRIATE BODY MECHANICS AND ACTIVITY MODIFICATIONS. ANG UE AND LE ROM, STRETCHING AND STRENGTHENING. HEP INSTRUCTION. CORE STRENGTHENING WITH NEUTRAL SPINE ONLY. NO PASSIVE NECK MANUAL THERAPY AND NO NECK SELF STRETCHING. INSTRUCT IN SUBMAX CERVICAL ISOMETRICS AND KEEP NECK IN NEUTRAL POSITION WITH EX. - Subjective Diagnosis: CERVICAL SPONDYLOSIS WITH MYELOPATHY. Work/Leisure: RETIRED. Present symptoms: NECK PAIN. ANG SHLD PAIN. PATIENT DENIES RADIATING PAIN, NUMBNESS OR TINGLING DOWN ARMS INTO HANDS OR FINGERS STATING THE PAIN STOPS AT HIS SHLD'S. ANG LE WEAKNESS. SEVERAL FALLS SINCE LAST SUMMER WITH MOST RECENT FALL BEING ABOUT 3 MONTHS AGO. DENIES SIGNIFICANT INJURIES FROM FALLS. INTERMITTENT LBP. ANG LOWER LEG AND FEET NUMBNESS. Present since: ABOUT 3 MONTHS AGO - NECK PAIN. Pain Scale: Worst - 5/10 Least - 0/10. Currently: 2/10 - L ROTATOR CUFF. Commenced as a result of: NO APPARENT REASON. Symptoms at onset: NECK PAIN. Worse: I DON'T KNOW. IT JUST COMES ON. IF I MOVE MY NECK JUST SO IT IS A STABBING PAIN THAT STARTS IN MY NECK AND GOES DOWN TOWARD SHOULDER ON RIGHT OR LEFT. Better: NOTHING - JUST GOES AWAY WITH TIME. Disturbed sleep: NO. Previous history/Previous treatment: NO NECK SURGERY. R ROTATOR CUFF REPAIR YEARS AGO. NO NECK OR SHLD INJECTIONS. NO PT. NO CHIROPRACTIC. This episode: NONE. Dizziness: SOMETIMES - NOT NEW. Tinnitis: YES - NOT NEW. Nausea: YES - FOR ABOUT A MONTH NOW. THIS PT RECOMMENDS PATIENT MAKE HIS DOCTOR AWARE. Shortness of Breath: YES WITH exertion - x 6 months or more. Difficulty Swollowing: No. Gait: WALKING WITH CANE X 6 MONTHS. NO AD PRIOR TO 6 MONTHS AGO. NEVER USES WALKER. Accidents: NO. Unexplained weight loss: NO. Imaging: MRI AND X-RAY AT [facility]. 06/23/22: NECK X-RAY: Degenerative disc and endplate disease without finding of significant. spinal canal stenosis. 07/08/22: CERVICAL MRI: MPRESSION: Mild disc osteophyte C3-T1. Multilevel degenerative disc disease, flattening the cord anteriorly, facet. arthropathy, uncovertebral joint disease and neural foraminal encroachment. as above. PMH/Recent major surgery: SEE BELOW. 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 STATES THAT GRADUALLY HE STARTED HAVING TROUBLE WALKING APPROX LAST FALL. OTHER: PATIENT REPORTS THE ONLY THING HE HAS BEEN TOLD IS THAT HE HAS NEUROPATHY AND THE DOCTORS HAVE NOT INDICATED IF HIS CONDITION WITH GET BETTER, GET WORSE OR STAY THE SAME. OTHER: PATIENT REPORTS DR. BURTON WANTS HIM TO HAVE A BLOOD FLOW TEST ON HIS LEGS BUT HE DOES NOT HAVE AN LORENA'T YET. PATIENT ALSO REPORTS DR. BURTON DISCUSSED SENDING HIM TO A NECK NEURO SURGEON BUT HAS NOT DONE SO YET. - Objective Sitting Posture/Standing Posture: POOR. FH. RSH'S. DECREASED LORDOSIS. RIGHT LATERAL LUMBAR SHIFT. Other Observations: THIS PATIENT AMBULATES INDEP'LY INTO PT X APPROX 300 FEET WITH STRAIGHT CANE WITH R LATERAL LUMBAR SHIFT AND MILD LIMP ON L LE. STANDS WITH BACKWARD LEAN. Sensory deficit: ANG LE LIGHT TOUCH SENSATION GROSSLY INTACT AND SYMMETRICAL. ROM deficit: TIGHT ANG HIP FLEXORS, HS'S AND GASTROC SOLEUS COMPLEX'S. 125 DEG FLEX R SHLD ACTIVE, 165 DEG ACTIVE FLEX LEFT. APPOX 50% DECREASED R SHLD ER. Motor deficit: LEFT LE WEAKNESS > RIGHT. R HIP 4/5, KNEE 4/5, ANKLE 5/5. L HIP 4-/5, KNEE 4-/5, ANKLE 4/5. ANG SLIDE FORMING MACHINE TENDER STRENGTH 60 LBS. ANG UE WEAKNESS GROSSLY 3+/5. Reflexes: ANG UE DTR'S 1/2. ANG QUADS 2/3. UNABLE TO ELICIT ANG ACHILLES DTR'S. Dural Signs: NEGATIVE ANG UE'S. NEGATIVE ANG LE'S. LUMBAR MVMT LOSS: FLEX - MOD - DENIES ANY PAIN. EXT - JASPER - LB PRESSURE - GOES AWAY. R SG - MOD. L SG - MOD. Cervical Mvmt Loss: Flex: NIL. Pro: NIL. Ext: JASPER. Ret: JASPER. RSB: MOD. LSB: MOD. R Rot: MIN. L Rot: MIN. PATIENT C/O L NECK PAIN WITH CERCIAL ROM TESTING ALL PLANES. NO WORSE A RESULT. Postural strength: POOR. CORE STRENGTH: POOR. Palpation: NO ACUTE TENDERNESS OF SPINE, SHLD'S OR HIPS. - Balance/Special Test Scores Oswestry Neck Score: 18 - Goals Goal 1:: DECREASE C/O NECK PAIN Goal Time Frame: 4-6 Weeks Goal 2:: IMPROVE PERSONAL CARE, STANDING, WALKING, LIFTING, SLEEP, WORK, AND RECREATIONAL FUNCTION Goal Time Frame: 4-6 Weeks Goal 3:: INSTRUCT IN PROPHYLAXIS Goal Time Frame: 4-6 Weeks - Anticipated Interventions Patient/Client Instruction: Educate patient on: Condition, Plan of Care, Risk Factors For the Purpose of:: To improve self management Therapeutic Exercise to Include: Strength training, Body mechanics, Postural training, Flexibilty training, Neuromotor development, Scapular Strength/Stabilization For the Purpose of:: To decrease pain, To increase ROM, To improve muscle performance and motor function, To increase tolerance to activity/condition/position, To improve ability of physical actions for home/community/work/leisure, To improve gait and locomotor functions Thank you for the opportunity to evaluate your patient. For Medicare and Medicare HMO plans, please review the plan of care and approve it. It will need to be FAXED BACK to us at [phone] for Medicare purposes. For Medicare only, by signing this I certify the plan of care. Please let me know if there are questions or concerns regarding this plan of care. Physician Signature: Date:
--- NOTE | 2022-09-15 14:27 | HP.PTREVAL_ITS ---
Re-Evaluation Intro: Dr. Jose Paredes MD, It has been my pleasure to treat YUMKIO TAN over the last 9 visits for CERVICAL SPONDYLOSIS. Please see the progress note below for an update on the physical therapy plan of care! Subjective Subjective: STATES HE STILL HASN'T RECOVED FROM FALL 09/03/22. PATIENT REPORTS INCREASED NECK SORENESS, PAIN GOING DOWN LEFT ARM TO THE ELBOW, INCREASED WEAKNESS IN LEGS AND DECREASED STAMINA IN GENERAL. PATIENT DENIES ANY INCREASED SYMPTOMS AFTER LAST PT SESSION. PATIENT STATES HE REPORTED HIS FALL TO HIS counselor and then HIS FAMILY DOCTOR - DR. STEPHENS - THE FOLLOWING WEEK AND ASKED ABOUT BEING REFERRED TO A NEUROSURGEON. STATES DR. STEPHENS SPOKE WITH HIS NEUROLOGIST DR. PAREDES AND LORENA'T WITH NEUROSURGEON NOW PENDING 10/05/22. PATIENT DENIES PAIN WALKING INTO PT TODAY AND SITTING IN TREATMENT ROOM RIGHT NOW. Objective Objective/Function: PATIENT WAS SEEN TODAY FOR RE-ASSESSMENT OF PROGRESS TOWARD THE SET PT GOALS AND THE NEED FOR FURTHER PHYSICAL THERAPY VS READINESS FOR DISCHARGE. PATIENT HAD A FALL AND HAS C/O INCREASED PAIN AND WEAKNESS SINCE THE FALL. ALL TESTING TODAY IS THE SAME OR BETTER THAN COMPARED TO INITIAL EVAL THOUGH. UPON EXAM TODAY: 138 DEG FLEX R SHLD ACTIVE, 164 DEG ACTIVE FLEX LEFT. Motor deficit: LEFT LE WEAKNESS > RIGHT. R HIP 4/5, KNEE 4+/5, ANKLE 5/5. L HIP 4-/5, KNEE 4/5, ANKLE 4/5. R TAX REPRESENTATIVE STRENGTH 65 LBS. L TAX REPRESENTATIVE STRENGTH 68 LBS. ANG UE WEAKNESS GROSSLY 4- /5. Reflexes: ANG UE DTR'S 1/2. ANG QUADS 2/3. UNABLE TO ELICIT ANG ACHILLES DTR'S. Dural Signs: NEGATIVE ANG UE'S. NEGATIVE ANG LE'S. LUMBAR MVMT LOSS: FLEX - MOD, EXT - JASPER R SG - MOD. L SG - MOD. PATIENT C/O LBP WITH LUMBAR EXT AND FLEXION TESTING BUT DOES NOT REMAIN WORSE A RESULT. Cervical Mvmt Loss: Flex: NIL. Pro: NIL. Ext: MOD Ret: JASPER. RSB: MOD. LSB: MOD. R Rot: MIN. L Rot: MIN. PATIENT C/O L NECK PAIN WITH CERCIAL ROM TESTING ALL PLANES. INCREASED NECK PAIN REMAINED AFTER TESTING AND REPORTED AT 04/02. Plan Plan Plan: HOLD PT PENDING NEUROSURGEON CONSULT. PATIENT IS AGREEABLE. Balance/Gait/Functional tests Balance/Special Test Scores Oswestry Neck Score: 20 TUG Test Time Seconds: 21.23 Tug Test: 20-30sec.=variable mobility 30 Second Chair Rise Test Seconds: 5 Goals Goals Goal 1:: DECREASE C/O NECK PAIN Goal Time Frame: 4-6 Weeks Goal Progress: Not Progressing Goal 2:: IMPROVE PERSONAL CARE, STANDING, WALKING, LIFTING, SLEEP, WORK, AND RECREATIONAL FUNCTION Goal Time Frame: 4-6 Weeks Goal Progress: Not Progressing Goal 3:: INSTRUCT IN PROPHYLAXIS Goal Time Frame: 4-6 Weeks Goal Progress: Not Progressing Anticipated Interventions Anticipated Interventions Patient/Client Instruction: Educate patient on: Condition, Plan of Care and Risk Factors For the Purpose of:: To improve self management Therapeutic Exercise to Include: Strength training, Body mechanics, Postural training, Flexibilty training, Neuromotor development and Scapular Strength/Stabilization For the Purpose of:: To decrease pain, To increase ROM, To improve muscle performance and motor function, To increase tolerance to activity/condition/position, To improve ability of physical actions for home/community/work/leisure and To improve gait and locomotor functions Re-Evaluation Ending Re-evaluation ending: Please do not hesitate to contact me at [phone] by phone or if you have questions or concerns regarding this new plan of care! Sincerely, Melvina Kinney, PT, Cert MDT
--- NOTE | 2022-11-12 07:46 | HP.PTDCNRP_ITS ---
Patient Information Patient Information: YUMIKO TAN was seen in my office for initial evaluation on 08/12/22. The following Plan of Care was established for this patient: POC Established Initial Frequency: 2-3x /Week Initial Duration: 4-6 Months Anticipated Interventions Patient/Client Instruction: Educate patient on: Condition, Plan of Care and Risk Factors For the Purpose of:: To improve self management Therapeutic Exercise to Include: Strength training, Body mechanics, Postural training, Flexibilty training, Neuromotor development and Scapular Strength/Stabilization For the Purpose of:: To decrease pain, To increase ROM, To improve muscle performance and motor function, To increase tolerance to activity/conditio n/position, To improve ability of physical actions for home/community/work/leisure and To improve gait and locomotor functions Last Seen Last Seen: This patient was last seen in our office 09/15/22. Pertinent comments regarding their Physical therapy will appear below: This patient has not returned to Physical Therapy and is appropriate to return to MD for further follow-up as needed. At this point I will be discontinuing this patient from physical therapy. I would be happy to see this patient again in the future if found appropriate by the physician. Thank you! Melvina Kinney, PT, Cert MDT Balance/Gait/Functional tests Balance/Special Test Scores Oswestry Neck Score: 20 TUG Test Time Seconds: 21.23 Tug Test: 20-30sec.=variable mobility 30 Second Chair Rise Test Seconds: 5
== END 2022-09-15 19:00 | disposition home or self-care (01) ==
LOC: PT 13:30
PROVIDERS: PCP Internal Medicine; Referring Provider Psychiatry & Neurology Neurology; Visit Provider Psychiatry & Neurology Neurology
DX: M47.12 Other spondylosis with myelopathy, cervical region (principal)
CPT/HCPCS: 97110; 97162; 97164

== ENCOUNTER → 2022-10-14 | Outpatient (CLI) | payer MEDICARE, OTHER, SELFPAY ==
--- NOTE | 2022-10-14 07:34 | MRI_ITS ---
INDICATION: WEAKNESS BOTH LOWER EXTREMITIES, LBP EXAMINATION: MRI - MR Spine Lumbar W/O Contrast TECHNIQUE: Multiplanar and multisequence MR images of the lumbar spine. IV Contrast Dosage and Agent: None. COMPARISON: 10/30/2021 FINDINGS: VERTEBRAE: Vertebral body heights are preserved. No acute fracture or pathologic marrow replacement. VERTEBRAL ALIGNMENT: No spondylolisthesis. There is preservation of the normal lumbar lordosis. CORD: Normal position and signal intensity of the conus medullaris. L1/L2: Minimal circumferential annular bulge without significant central or foraminal stenosis. L2/L3: Minimal circumferential annular bulge without significant central or foraminal stenosis. L3/L4: Bilateral facet joint hypertrophy with minimal annular bulge. No significant central or foraminal stenosis. L4/L5: Bilateral facet joint hypertrophy with minimal annular bulge. Mild central and bilateral foraminal encroachment. L5/S1: Normal disc height and morphology. Normal spinal canal, lateral recesses and neuroforamina. SOFT TISSUES: Unremarkable. MRI/Spine Lumbar (Routine) IMPRESSION: Stable mild degenerative disc disease of the lumbar spine. Most severe findings at the L4-5 level. Electronically Signed: Marc Patel MD at 16:59 EDT ,
--- NOTE | 2022-10-14 07:34 | MRI_ITS ---
STUDY: MRI THORACIC SPINE WITHOUT CONTRAST REASON FOR EXAM: Male, 72 years old. WEAKNESS Extremities, mid BACK PAIN TECHNIQUE: Standardized fat and water weighted pulse sequences were obtained in the sagittal and axial planes. COMPARISON: None. FINDINGS: Normal kyphosis of the thoracic spine. There is no substantial scoliosis. T1-2, T2-3, T3-4, T4-5, T5-6, T6-7, T7-8, T8-9, T9-10, T10-11, T11-12: Slight anterior wedging of the superior endplates of T6, T7, T8 and T12 vertebral bodies are presumably from remote injury. Minimal ventral extradural defect at T5-T6, T6-T7, T 78 and T8-T9 disc space levels are small posterior bulging annulus. Normal remaining thoracic disc space heights. Normal remaining thoracic vertebral body heights. Normal central canal and bilateral intervertebral neural foramina. Small midline intramedullary syrinx extending from the T6-T7 disc space level down to the T8-T9 disc space level. The syrinx is maximal at the T7-T8 disc space level down to the upper T8 vertebral body level. Normal remainder of the thoracic spinal cord. Normal conus medullaris that terminates at the T12-L1 disc space level. The soft tissue structures are unremarkable. MRI/Spine Thoracic (Routine) IMPRESSION: 1. Small midline thoracic spinal cord syrinx without cord expansion from T6-T7 down to T8-T9 disc space levels. The spinal cord syrinx is more prominent at the T7-T8 disc space level down to the upper T8 vertebral body level.. There is no associated Chiari anomaly when correlated with the MRI of the cervical spine. 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 MRI of the thoracic spine with intravenous contrast will help confirm benign nonneoplastic syrinx. 2. No MRI evidence of thoracic extruded disc fragment or spinal stenosis. Electronically Signed: Mac Cardona MD at 15:26 EDT ,
--- NOTE | 2022-10-14 09:12 | MRI_ITS ---
EXAM: MR HEAD WITHOUT AND WITH INTRAVENOUS CONTRAST CLINICAL INDICATION: Facial paresthesia. TECHNIQUE: Multiplanar and multisequence MR images of the brain were obtained without and with intravenous contrast. CONTRAST: 23 mL of IV Clariscan. COMPARISON: MRI brain with and without contrast 06/30/2020. FINDINGS: BRAIN AND EXTRA-AXIAL SPACES: Prominent midline caval septum pellucidum and cavum vergae are unchanged. Following IV contrast administration, there are no abnormal enhancing lesions intra-axially and extra-axially. No intra- or extra-axial hemorrhage. Posterior fossa structures are unremarkable. Basal cisterns are patent. No diffusion restriction throughout the brain parenchyma to suspect acute or subacute ischemic infarct. No remote cortical-based ischemic infarct. SELLA: Unremarkable. Normal sella turcica, pituitary gland, infundibular stalk, optic chiasm and hypothalamus. AUDITORY SYSTEM: Unremarkable. The internal auditory canals are patent. BONES/JOINTS: Unremarkable. No discrete lytic or blastic abnormalities. SINUSES: Unremarkable as visualized. Clear. MASTOID AIR CELLS: Unremarkable as visualized. Clear. ORBITS: Unremarkable as visualized. Both globes, extraocular muscles, optic nerves and retrobulbar fat appear unremarkable. VASCULATURE: Unremarkable as visualized. Normal flow voids in the major intracranial circulation. MRI/Brain W/WO Contrast IMPRESSION: 1. No MRI evidence of acute or subacute ischemic infarct or any abnormal enhancing lesions intra-axially and extra-axially. 2. No significant interval change when compared to 06/30/2020. Electronically Signed: Mac Cardona MD at 15:32 EDT ,
== END | disposition home or self-care (01) ==
PROVIDERS: PCP Internal Medicine
DX: R29.898 Other symptoms and signs involving the musculoskeletal system (principal); G95.9 Disease of spinal cord, unspecified; M54.50 Low back pain, unspecified
CPT/HCPCS: 70553; 72146; 72148; A9575

== ENCOUNTER → 2023-01-18 | Outpatient (CLI) | payer MEDICARE, OTHER, SELFPAY ==
--- NOTE | 2023-01-18 14:00 | CDU_ITS ---
Reason For Study: Carotid Stenosis Rt. Velocities/BP Lt. Velocities/BP Prox CCA 72.4/11.9 cm/sec. Prox CCA 62.0/12.8 cm/sec. Mid CCA 60.9/10.4 cm/sec. Mid CCA 62.0/11.9 cm/sec. Dist CCA 57.4/11.1 cm/sec. Dist CCA 45.9/10.0 cm/sec. Prox ICA 51.5/11.6 cm/sec. Prox ICA 59.1/9.1 cm/sec. Mid ICA 52.2/12.6 cm/sec. Mid ICA 57.2/18.5 cm/sec. Dist ICA 39.0/9.7 cm/sec. Dist ICA 58.2/19.5 cm/sec. Rt. ICA/CCA = 0.9. Lt. ICA/CCA = 1.0. Prox ECA 78.7/10.7 cm/sec. Prox ECA 114.3/15.7 cm/sec. Rt. Vert. 74.3/12.8 cm/sec. Lt. Vert. 34.6/11.9 cm/sec. Right Extracranial There is intimal thickening but no significant atherosclerotic plaque noted in the right common carotid artery. There is intimal thickening but no significant atherosclerotic plaque noted in the right internal carotid artery. There is intimal thickening but no significant atherosclerotic plaque noted in the right external carotid artery. Antegrade flow is noted in the right vertebral artery. Left Extracranial There is intimal thickening but no significant atherosclerotic plaque noted in the left common carotid artery. There is intimal thickening but no significant atherosclerotic plaque noted in the left internal carotid artery. The left external carotid artery is not well visualized. Antegrade flow is noted in the left vertebral artery. Procedure Carotid Duplex 88629. This is a Carotid Duplex examination using B-mode, color flow and specral Doppler. The exam was diagnostic. Exam performed in department. VL/Carotid Duplex Ultrasound Interpretation Summary Intimal thickening bilateral extracranial internal carotid arteries with less t ramirez 50% stenosis Less than 50% stenosis bilateral external carotid arteries Patent and antegrade bilateral vertebrals No change from the previous examination of December 10, 2021 Ordering Physician: Adelaida Fraga Referring Physician: Adelaida Fraga Performed By: Marco Us RVT
== END | disposition home or self-care (01) ==
LOC: CVS 13:58
PROVIDERS: PCP Internal Medicine; Referring Provider Internal Medicine; Visit Provider Internal Medicine
DX: I65.23 Occlusion and stenosis of bilateral carotid arteries (principal)
CPT/HCPCS: 93880

== ENCOUNTER → 2023-02-11 | Outpatient (CLI) | payer MEDICARE, OTHER, SELFPAY ==
[2023-02-11 15:32] LABS: ALB/GLOB Ratio 0.9 RATIO (0.9-2.4); Globulin 3.3 g/dL (2.2-4.2); Protein, Total 6.4 g/dL (6.4-8.2)
[2023-02-15 13:07] LABS: Albumin 3.4 g/dL (2.9-4.4); Alpha-1-Globulins 0.2 g/dL (0.0-0.4); Alpha-2-Globulins 0.9 g/dL (0.4-1.0); Gamma Globulin 0.5 g/dL (0.4-1.8); Immunoglobulin A 171 mg/dL (61-437); Immunoglobulin G 593 mg/dL (603-1613); Immunoglobulin M 62 mg/dL (20-172); PROEL- TOTAL PROTEIN 5.8 g/dL (6.0-8.5)
== END | disposition home or self-care (01) ==
PROVIDERS: PCP Internal Medicine; Referring Provider Psychiatry & Neurology Neurology; Visit Provider Psychiatry & Neurology Neurology
DX: R29.898 Other symptoms and signs involving the musculoskeletal system (principal); G72.9 Myopathy, unspecified; G62.9 Polyneuropathy, unspecified
CPT/HCPCS: 36415; 82784; 84156; 84165; 86334

== ENCOUNTER → 2023-04-11 | Outpatient (CLI) | payer MEDICARE, OTHER, SELFPAY ==
[2023-04-11 18:01] LABS: Absolute Lymphocyte Count 2.58 X10^3/uL (0.83-4.51); Absolute Neutrophil Count 4.5 X10^3/uL (2.0-7.7); Basophil# 0.05 X10^3/uL; Basophil% 0.6 % (0-1); Eosinophil# 0.28 X10^3/uL; Eosinophils% 3.5 % (0-5); Hemoglobin 12.7 g/dL (13.0-16.5); Lymphocyte # 2.58 X10^3/ul (0.83-4.51); Lymphocyte % 32.4 % (19-41); Mean Corp Hgb Conc 31.8 g/dL (32-36); Mean Corpuscular Volume 97.6 fL (80-94); Mean Platelet Vol. 9.1 fl (6.2-12.0); Monocyte# 0.57 X10^3/uL; Monocyte% 7.2 % (0-10); NRBC Flagged by Analyzer 0 % (0-5); Neutrophil # 4.46 X10^3/uL (2.7-7.7); Neutrophil % 55.9 % (47-70); Platelet Count 225 K/mm3 (150-450); RBC Distribution Width CV 13.2 % (11.6-14.6); RBC Distribution Width SD 47.7 fl (35.1-43.9)
[2023-04-11 18:24] LABS: Hemoglobin A1c 5.6 % (3.8-5.6)
[2023-04-11 19:35] LABS: AST(SGOT) 16 U/L (15-37); Alanine Aminotransfer ALT/SGPT 24 U/L (16-61); Albumin, Serum 3.3 g/dL (3.2-5.0); Alkaline Phosphatase 51 U/L (45-117); Anion Gap 5 (5-15); BUN 16 mg/dL (7-18); BUN/Creat Ratio 13.3 RATIO (10-20); Calcium,Total 9.1 mg/dL (8.5-10.1); Chloride 107 mmol/L (98-107); Cholesterol 125 mg/dL (200); EST Glomerular Filtration Rate 64 mL/min (>60); Est Glom Filt Rate - Afr Amer 77 mL/min (>60); Globulin 3.4 g/dL (2.2-4.2); Glucose 101 mg/dL (74-106); High Density Lipoprotein 65 mg/dL; Potassium 4.1 mmol/L (3.5-5.1); Protein, Total 6.7 g/dL (6.4-8.2); Sodium Level 138 mmol/L (136-145); Triglycerides 81 mg/dL; Very Low Density Lipoprotein 16 mg/dL (5-40)
== END | disposition home or self-care (01) ==
PROVIDERS: PCP Internal Medicine; Referring Provider Internal Medicine; Visit Provider Internal Medicine
DX: I10 Essential (primary) hypertension (principal); E11.42 Type 2 diabetes mellitus with diabetic polyneuropathy; E78.49 Other hyperlipidemia; E03.9 Hypothyroidism, unspecified
CPT/HCPCS: 36415; 80053; 80061; 83036; 84443; 85025

== ENCOUNTER → 2023-10-15 | Outpatient (CLI) | payer MEDICARE, OTHER, SELFPAY ==
[2023-10-15 10:39] LABS: Absolute Lymphocyte Count 2.42 X10^3/uL (0.83-4.51); Absolute Neutrophil Count 3.9 X10^3/uL (2.0-7.7); Basophil# 0.04 X10^3/uL; Basophil% 0.6 % (0-1); Eosinophil# 0.28 X10^3/uL; Eosinophils% 3.9 % (0-5); Hematocrit 37.4 % (40-54); Hemoglobin 12.1 g/dL (13.0-16.5); Lymphocyte # 2.42 X10^3/ul (0.83-4.51); Lymphocyte % 33.7 % (19-41); Mean Corp Hgb Conc 32.4 g/dL (32-36); Mean Corpuscular Hgb 30.6 pg (27.0-32.0); Mean Corpuscular Volume 94.7 fL (80-94); Mean Platelet Vol. 8.9 fl (6.2-12.0); Monocyte# 0.55 X10^3/uL; Monocyte% 7.7 % (0-10); NRBC Flagged by Analyzer 0 % (0-5); Neutrophil # 3.85 X10^3/uL (2.7-7.7); Neutrophil % 53.5 % (47-70); Platelet Count 198 K/mm3 (150-450); RBC Distribution Width CV 13.9 % (11.6-14.6); RBC Distribution Width SD 48.3 fl (35.1-43.9); Red Blood Count 3.95 M/mm3 (4.6-6.2); White Blood Count 7.2 K/mm3 (4.4-11.0)
[2023-10-15 10:53] LABS: Hemoglobin A1c 5.4 % (3.8-5.6)
[2023-10-15 11:05] LABS: ALB/GLOB Ratio 0.9 RATIO (0.9-2.4); AST(SGOT) 11 U/L (15-37); Alanine Aminotransfer ALT/SGPT 18 U/L (16-61); Albumin, Serum 3.1 g/dL (3.2-5.0); Alkaline Phosphatase 50 U/L (45-117); Anion Gap 7 (5-15); BUN 16 mg/dL (7-18); BUN/Creat Ratio 11.1 RATIO (10-20); Calcium,Total 8.9 mg/dL (8.5-10.1); Chloride 104 mmol/L (98-107); Cholesterol 131 mg/dL (200); Creatinine, Serum 1.44 mg/dL (0.70-1.30); EST Glomerular Filtration Rate 51 mL/min (>60); Est Glom Filt Rate - Afr Amer 62 mL/min (>60); Globulin 3.6 g/dL (2.2-4.2); Glucose 112 mg/dL (74-106); High Density Lipoprotein 71 mg/dL; Potassium 4.4 mmol/L (3.5-5.1); Protein, Total 6.7 g/dL (6.4-8.2); Sodium Level 136 mmol/L (136-145); Triglycerides 55 mg/dL; Very Low Density Lipoprotein 11 mg/dL (5-40)
[2023-10-17 18:07] LABS: PSA, Total 0.5 ng/mL (0.0-4.0)
== END | disposition home or self-care (01) ==
LOC: LAB 10:05
PROVIDERS: PCP Internal Medicine; Referring Provider Internal Medicine; Visit Provider Internal Medicine
DX: E03.9 Hypothyroidism, unspecified (principal); E11.42 Type 2 diabetes mellitus with diabetic polyneuropathy; I10 Essential (primary) hypertension; Z12.5 Encounter for screening for malignant neoplasm of prostate; E78.49 Other hyperlipidemia
CPT/HCPCS: 36415; 80053; 80061; 83036; 84153; 84443; 85025

== ENCOUNTER → 2023-12-27 | Outpatient (CLI) | payer MEDICARE, OTHER, SELFPAY ==
--- NOTE | 2023-12-27 09:50 | CDU_ITS ---
Reason For Study: BILATERAL CAROTID STENOSIS Rt. Velocities/BP Lt. Velocities/BP Prox CCA 62.9/9.1 cm/sec. Prox CCA 77.9/15.3 cm/sec. Mid CCA 67.6/7.2 cm/sec. Mid CCA 82.3/9.8 cm/sec. Dist CCA 50.6/7.2 cm/sec. Dist CCA 73.5/10.9 cm/sec. Prox ICA 50.4/8.7 cm/sec. Prox ICA 78.4/14.4 cm/sec. Mid ICA 58.1/14.2 cm/sec. Mid ICA 52.7/15.8 cm/sec. Dist ICA 50.4/13.1 cm/sec. Dist ICA 53.7/16.4 cm/sec. Rt. ICA/CCA = 58.1/67.6=0.9. Lt. ICA/CCA = 78.4/82.3=1.0. Prox ECA 88.6/6.2 cm/sec. Prox ECA 93.0/10.8 cm/sec. Rt. Vert. 46.1/8.7 cm/sec. Lt. Vert. 43.4/12.2 cm/sec. Right Extracranial There is intimal thickening but no significant atherosclerotic plaque noted in the right common carotid artery. There is intimal thickening but no significant atherosclerotic plaque noted in the right internal carotid artery. There is intimal thickening but no significant atherosclerotic plaque noted in the right external carotid artery. Antegrade flow is noted in the right vertebral artery. Left Extracranial There is intimal thickening but no significant atherosclerotic plaque noted in the left common carotid artery. There is intimal thickening but no significant atherosclerotic plaque noted in the left internal carotid artery. There is intimal thickening but no significant atherosclerotic plaque noted in the left external carotid artery. Antegrade flow is noted in the left vertebral artery. Procedure Carotid Duplex [id number]. This is a Carotid Duplex examination using B-mode, color flow and specral Doppler. Exam performed in department. VL/Carotid Duplex Ultrasound Interpretation Summary No significant atherosclerotic plaque or stenosis noted in the internal carotid arteries bilaterally. Flow within the vertebral arteries is antegrade bilaterally. Ordering Physician: Adelaida Fraga Referring Physician: Adelaida Fraga Performed By: Nilda Rahman, MORE, RVT
== END | disposition home or self-care (01) ==
LOC: CVS 09:49
PROVIDERS: PCP Internal Medicine; Referring Provider Internal Medicine; Visit Provider Internal Medicine
DX: I65.23 Occlusion and stenosis of bilateral carotid arteries (principal)
CPT/HCPCS: 93880

== ENCOUNTER 2024-01-06 09:00 | Outpatient (RCR) | payer MEDICARE, OTHER, SELFPAY ==
--- NOTE | 2023-12-16 13:55 | HP.PTEVAL_ITS ---
Patient's Visit Information Visit Information Visit Information: YUMIKO TAN is a 73 year old M referred to Physical Therapy by Dr. Adelaida Fraga DO with a diagnosis of LEG WEAKNESS ,NEUROPATHY ,FALLS ,COCCYX PAIN Date of Evaluation: 12/16/23 Physical Therapist: Jose Gonzáles, PT, Cert MDT, OCS Visit Plan Frequency: 2x /Week Duration: 4 Weeks Plan: PT INTERVENTIONS BLE STRENGTHENING ,FUNCTIONAL STRENGTHENING ,AEROBIC EX'S AND BALANCE TRAINING Subjective Subjective: This 73 y/o male presents to physical therapy with leg weakness and neuropathy /falls. Patient fell 2 weeks in house out of bedroom did not using cane and fell to floor ,then patient had another fall trying to step back and fell. Patient seen DR x-rays - . Recommended PT . Patient has no dizziness . Patient has weakness in legs which main problem. Patient lives apartment no steps . Bathroom set up walk in shower and tube shower set up. Patient multiple complexity issues to influence condition. Patient has scooter for home .Patient has h/o falls in past.Patient condition affects QOL and function/ADLS . Patient condition affects QOL and function. Patient goals to improve strength and gait,. SOCIAL: VOCATION: retired Objective Objective: POSTURE: mild forward posture PALAPTION: unremarkable FLEXABILITY: mod tight GAIT: reciprocal pattern 2 point gait with cane slow johnny mild forward posture MMT: (peak force) quads right 21.7 ,left 22.8 , hamstrings right18.9 ,left 18 .9 ,hip flexion right 21.9 ,left 23.2 BALANCE: fair+ with cane Balance/Special Test Scores Functional Gait Assessment Score: 8 % Disability: 73.3400 CATSIB Score (Max score 120 seconds): 58 Lower Extremity Functional Score: 23 30 Second Chair Rise Test Seconds: 5 Goals Goal 1:: Patient to be I with HEP for strengthening and balance Goal Time Frame: 4-6 Weeks Goal 2:: Patient to improve 30 sec sit-stand by 3-reps to improve functional strength Goal 3:: Patient to improve peak force quads/hams/hip by 5-10# strength to improve function Goal Time Frame: 4-6 Weeks Goal 4:: Patient to improve CATSIBE by 5 points om improve balance and decrease risk of falls Goal Time Frame: 4-6 Weeks Goal 5:: Patient to improve LFES score by 5-10 points to improve function and gait Goal Time Frame: 4-6 Weeks Rehabilitation Potential Physical Therapy Diagnosis: Patient presents with falling and weakness in legs and decrease score with balance assessment thus benefit from skilled PT Rehabilitation Potential: Good Anticipated Interventions Patient/Client Instruction: Educate patient on: Condition and Plan of Care For the Purpose of:: To decrease pain, To increase ROM, To improve muscle performance and motor function, To improve ability to perform ADL's, To increase tolerance to activity/condition/position, To improve ability of physical actions for home/community/work/leisure, To improve health of tissue, To decrease soft tissue restriction, To increase flexibility/ROM and To improve tolerance to AD L's Therapeutic Exercise to Include: Strength training, Endurance training, Balance training and Flexibilty training Comment: BLE For the Purpose of:: To increase ROM, To improve muscle performance and motor function, To improve ability to perform ADL's, To increase tolerance to activity/condition/position, To improve ability of physical actions for home/community/work/leisure, To improve health of tissue, To decrease soft tissue restriction, To increase flexibility/ROM, To improve endurance, To improve balance and To improve tolerance to ADL's Text: Thank you for the opportunity to evaluate your patient. For Medicare and Medicare HMO plans, please review the plan of care and approve it. It will need to be FAXED BACK to us at [phone] for Medicare purposes. For Medicare only, by signing this I certify the plan of care. Please let me know if there are questions or concerns regarding this plan of care. Physician Signature: Date:
--- NOTE | 2024-02-24 10:50 | HP.PT.NRP ---
Patient Information Patient Information: YUMIKO TAN was seen in my office for initial evaluation on 12/16/23. The following Plan of Care was established for this patient: POC Established Initial Frequency: 2x /Week Initial Duration: 4 Weeks Anticipated Interventions Patient/Client Instruction: Educate patient on: Condition and Plan of Care For the Purpose of:: To decrease pain, To increase ROM, To improve muscle performance and motor function, To improve ability to perform ADL's, To increase tolerance to activity/condition/position, To improve ability of physical actions for home/community/work/leisure, To improve health of tissue, To decrease soft tissue restriction, To increase flexibility/ROM and To improve tolerance to ADL's Therapeutic Exercise to Include: Strength training, Endurance training, Balance training and Flexibilty training For the Purpose of:: To increase ROM, To improve muscle performance and motor function, To improve ability to perform ADL's, To increase tolerance to activity/condition/position, To improve ability of physical actions for home/community/work/leisure, To improve health of tissue, To decrease soft tissue restriction, To increase flexibility/ROM, To improve endurance, To improve balance and To improve tolerance to ADL's Last Seen Last Seen: This patient was last seen in our office . Pertinent comments regarding their Physical therapy will appear below: This patient seen for PT for leg weakness and falls ,patient seen for PT for strengthening doing better thus is d/c At this point I will be discontinuing this patient from physical therapy. I would be happy to see this patient again in the future if found appropriate by the physician. Thank you! Jose Gonzáles, PT, Cert MDT, OCS Balance/Gait/Functional tests Balance/Special Test Scores Functional Gait Assessment Score: 8 % Disability: 73.3400 CATSIB Score (Max score 120 seconds): 58 Lower Extremity Functional Score: 23 30 Second Chair Rise Test Seconds: 5
== END 2024-01-06 19:00 | disposition home or self-care (01) ==
LOC: PT 09:00
PROVIDERS: PCP Internal Medicine; Referring Provider Internal Medicine; Visit Provider Internal Medicine
DX: R29.898 Other symptoms and signs involving the musculoskeletal system (principal); M53.3 Sacrococcygeal disorders, not elsewhere classified; R29.6 Repeated falls; Z91.81 History of falling
CPT/HCPCS: 97110; 97162

== ENCOUNTER → 2024-03-01 | Outpatient (CLI) | payer MEDICARE, OTHER, SELFPAY ==
[2024-03-01 12:16] LABS: Absolute Lymphocyte Count 2.19 X10^3/uL (0.83-4.51); Absolute Neutrophil Count 4.1 X10^3/uL (2.0-7.7); Basophil# 0.05 X10^3/uL; Basophil% 0.7 % (0-1); Eosinophil# 0.32 X10^3/uL; Eosinophils% 4.4 % (0-5); Hematocrit 36.2 % (40-54); Hemoglobin 11.7 g/dL (13.0-16.5); Lymphocyte # 2.19 X10^3/ul (0.83-4.51); Lymphocyte % 30.2 % (19-41); Mean Corp Hgb Conc 32.3 g/dL (32-36); Mean Corpuscular Hgb 30.6 pg (27.0-32.0); Mean Corpuscular Volume 94.8 fL (80-94); Mean Platelet Vol. 9.3 fl (6.2-12.0); Monocyte# 0.52 X10^3/uL; Monocyte% 7.2 % (0-10); NRBC Flagged by Analyzer 0 % (0-5); Neutrophil # 4.14 X10^3/uL (2.7-7.7); Neutrophil % 56.9 % (47-70); Platelet Count 192 K/mm3 (150-450); RBC Distribution Width CV 14.5 % (11.6-14.6); RBC Distribution Width SD 49.1 fl (35.1-43.9); Red Blood Count 3.82 M/mm3 (4.6-6.2); White Blood Count 7.3 K/mm3 (4.4-11.0)
[2024-03-01 12:34] LABS: Vitamin B12 630 pg/mL (211-911)
[2024-03-01 12:54] LABS: ALB/GLOB Ratio 0.9 RATIO (0.9-2.4); AST(SGOT) 10 U/L (15-37); Alanine Aminotransfer ALT/SGPT 15 U/L (16-61); Albumin, Serum 3.1 g/dL (3.2-5.0); Alkaline Phosphatase 52 U/L (45-117); Anion Gap 8 (5-15); BUN 17 mg/dL (7-18); BUN/Creat Ratio 11.2 RATIO (10-20); Calcium,Total 9.4 mg/dL (8.5-10.1); Chloride 107 mmol/L (98-107); Cholesterol 116 mg/dL (200); Creatinine, Serum 1.52 mg/dL (0.70-1.30); EST Glomerular Filtration Rate 48 mL/min (>60); Est Glom Filt Rate - Afr Amer 58 mL/min (>60); Ferritin 10 ng/mL (26-388); Globulin 3.6 g/dL (2.2-4.2); Glucose 114 mg/dL (74-106); High Density Lipoprotein 59 mg/dL; Iron 73 ug/dL (65-175); Iron Binding Capacity,Total 404 ug/dL (250-450); PERCENT IRON SATURATION 18.1 % (15.0-55.0); PSA,Total- Diagnostic 0.48 ng/mL (0.0-4.0); Potassium 3.9 mmol/L (3.5-5.1); Protein, Total 6.7 g/dL (6.4-8.2); Sodium Level 139 mmol/L (136-145); Triglycerides 68 mg/dL; Very Low Density Lipoprotein 14 mg/dL (5-40)
[2024-03-01 13:04] LABS: Microalbumin:Creatinine Ratio 143.9 mg/g CRE (<30 mg/g CRE)
[2024-03-01 14:29] LABS: Hemoglobin A1c 5.8 % (3.8-5.6)
== END | disposition home or self-care (01) ==
PROVIDERS: PCP Internal Medicine; Referring Provider Internal Medicine; Visit Provider Internal Medicine
DX: E53.8 Deficiency of other specified B group vitamins (principal); E11.42 Type 2 diabetes mellitus with diabetic polyneuropathy; D50.9 Iron deficiency anemia, unspecified; E78.49 Other hyperlipidemia; N40.1 Benign prostatic hyperplasia with lower urinary tract symptoms
CPT/HCPCS: 36415; 80053; 80061; 82043; 82570; 82607; 82728; 82746; 83036; 83540; 83550; 84153; 84443; 85025

== ENCOUNTER 2024-04-24 16:02 | Observation (INO) | payer MEDICARE, OTHER, SELFPAY ==
[2024-04-24] VITALS (10 sets, daily range): BP systolic 110–151; BP diastolic 53–103; PULSE 58–91; RESP 10–26; TEMP 36.1–36.6; O2SAT 95–98; BMI 42.0; BMI 43.8
--- NOTE | 2024-04-24 16:12 | EKG12_ITS ---
Test Reason : CP/SOB Blood Pressure : */* mmHG Vent. Rate : 68 BPM Atrial Rate : 68 BPM P-R Int : 218 ms QRS Dur : 174 ms QT Int : 454 ms P-R-T Axes : 53 28 60 degrees QTcB Int : 482 ms Sinus rhythm with 1st degree A-V block Right bundle branch block Abnormal ECG Confirmed by Roland Espinosa ([id number]), newspaper editor MIGUEL WILKINSON ([id number]) on 04/26/2024 6:56:24 AM Referred By: ES/UG Confirmed By: Roland Espinosa
[2024-04-24 16:36] LABS: Absolute Lymphocyte Count 1.78 X10^3/uL (0.83-4.51); Absolute Neutrophil Count 4.7 X10^3/uL (2.0-7.7); Basophil# 0.03 X10^3/uL; Basophil% 0.4 % (0-1); Eosinophil# 0.43 X10^3/uL; Eosinophils% 5.7 % (0-5); Hematocrit 33.8 % (40-54); Hemoglobin 11.1 g/dL (13.0-16.5); Lymphocyte # 1.78 X10^3/ul (0.83-4.51); Lymphocyte % 23.6 % (19-41); Mean Corp Hgb Conc 32.8 g/dL (32-36); Mean Corpuscular Hgb 30.7 pg (27.0-32.0); Mean Corpuscular Volume 93.6 fL (80-94); Mean Platelet Vol. 9.1 fl (6.2-12.0); Monocyte# 0.55 X10^3/uL; Monocyte% 7.3 % (0-10); NRBC Flagged by Analyzer 0 % (0-5); Neutrophil % 62.5 % (47-70); Platelet Count 185 K/mm3 (150-450); RBC Distribution Width CV 14.8 % (11.6-14.6); Red Blood Count 3.61 M/mm3 (4.6-6.2); White Blood Count 7.5 K/mm3 (4.4-11.0)
--- NOTE | 2024-04-24 16:40 | RAD_ITS ---
PROCEDURE: CHEST 1 VIEW (PORTABLE) REASON FOR EXAM: Chest pain TECHNIQUE: Frontal view of the chest. COMPARISON: 05/19/2021 FINDINGS: The heart size is normal. There are atherosclerotic calcifications of the thoracic aorta. The lungs are clear. The bones are unremarkable. RAD/Chest 1 View (Portable) IMPRESSION: No radiographic evidence of acute cardiopulmonary disease Reading Location: [facility]
--- NOTE | 2024-04-24 16:43 | ED.VIS.CHEST ---
HPI History of Present Illness Chief Complaint: Chest Pain Informant: patient Onset/Context/Timing Onset: Days Activity at onset: gradual Timing: Continuous Quality: Positive for Dull Location: Left Chest and - (Left shoulder) Worsened By: Exertion Relieved By: Rest Associated Symptoms: Positive for Diaphoresis, Dyspnea and Palpitations; Negative for Nausea, Vomiting, Cough, Fever, Lightheadedness or Acid Reflux Narrative Narrative: Patient presents with chest pain and shortness of breath that has been getting worse over the past few days. Patient states that his breathing is worse with any activity. Patient states he had some pain in his left chest that radiated to his left shoulder. Patient describes his pain as dull. Patient admits to lower extremity swelling. Patient admits to some palpitations. Patient denies any lightheadedness. Patient denies any nausea or vomiting. Patient denies any cough. Patient states he used his albuterol inhaler with minimal relief. CVD Risk Factors: Positive for Hypertension, Diabetes and Hypercholesterolemia; Negative for Smoking PE Risk Factors: Negative for Recent Travel/Surgery, Recent Immobilization, Prior DVT or PE, Cancer or OCP + Smoking + >/=35 PFSH PFSH Medical History (Updated 04/24/24 @ 20:[address] 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 Asthma GERD (gastroesophageal reflux disease) BPH (benign prostatic hyperplasia) Home Medications ?Medication ?Instructions ?Recorded ?Last Taken ?Type aspirin 81 mg chewable tablet 81 mg PO DAILY heart health 06/28/13 05/22/21 History pantoprazole 40 mg tablet,delayed 40 mg PO BID gerd 06/28/13 05/22/21 History release albuterol sulfate 2.5 mg/3 mL 1.25 mg inhalation Q4H PRN 07/12/17 Unknown History (0.083 %) solution for nebulization Bronchodialation albuterol sulfate 90 mcg/actuation 2 puff inhalation Q4H PRN 07/12/17 Unknown History aerosol inhaler (Proventil HFA) Bronchodialation eszopiclone 3 mg tablet (Lunesta) 3 mg PO QHS sleep 07/12/17 Unknown History rosuvastatin 40 mg tablet 40 mg PO QHS cholesterol 07/14/17 Unknown History tamsulosin 0.4 mg capsule 0.4 mg PO QHS prostate 07/14/17 Unknown History metformin 500 mg tablet,extended 1,000 mg PO QHS 01/10/18 08/27/19 History release 24 hr levothyroxine 50 mcg tablet 50 mcg PO DAILY 04/07/21 Unknown History montelukast 10 mg tablet 10 mg PO DAILY 06/28/22 Unknown History ([place]) azelastine 137 mcg (0.1 %) nasal 1 spray intranasal ONCE 12/06/22 Unknown History spray cyanocobalamin (vitamin B-12) 500 500 mcg PO DAILY 12/06/22 Unknown History mcg tablet (Vitamin B-12) gabapentin 600 mg tablet 600 mg PO TID 12/06/22 Unknown History omeprazole 20 mg capsule,delayed mg PO DAILY 12/06/22 Unknown History release venlafaxine 150 mg mg PO DAILY 12/06/22 Unknown History capsule,extended release 24 hr buspirone 30 mg tablet 30 mg PO BID 06/07/23 Unknown History lorazepam 0.5 mg tablet mg PO 07/14/23 Unknown History ranolazine 1,000 mg 1,000 mg PO BID #180 tabs 11/25/23 Unknown Rx tablet,extended release,12 hr isosorbide mononitrate 60 mg 60 mg PO DAILY #90 tabs 11/28/23 Unknown Rx tablet,extended release 24 hr bupropion HCl 150 mg 24 hr tablet, See Rx Instructions .Route 12/23/23 Unknown Rx extended release .COMPLEX #90 tabs amlodipine 5 mg tablet 5 mg PO BID #180 tabs 01/16/24 Unknown Rx Allergy/AdvReac Type Severity Reaction Status Date / Time iodine Allergy Rash, Verified 04/24/24 16:03 upset stomach, facial swelling Penicillins Allergy Rash Verified 04/24/24 16:03 pseudoephedrine HCl (From Allergy mood Verified 04/24/24 16:03 Actifed) changes Sulfa (Sulfonamide Allergy Rash Verified 04/24/24 16:03 Antibiotics) triprolidine HCl (From Allergy mood Verified 04/24/24 16:03 Actifed) changes ibuprofen AdvReac not able Verified 04/24/24 16:03 to use d/t heart condition Family History Father CAD (coronary artery disease) CVA (cerebral vascular accident) Hypertension Alzheimer's dementia Brother Rheumatoid arthritis Brother Cancer non hodgkins lymphoma Surgical History History of esophagogastroduodenoscopy (EGD) Hx of colonoscopy Postsurgical percutaneous transluminal coronary angioplasty (PTCA) status History of lithotripsy History of carpal tunnel surgery History of parathyroid surgery History of rotator cuff surgery History of tonsillectomy Social History (Updated 04/24/24 @ 20:[address] Valorie Hickman MD) household members: spouse Smoking Status: Former smoker how long ago did patient quit smokin years ago alcohol intake: current alcohol intake frequency: a few times a month Alcohol type: beer substance use type: does not use caffeine: Yes Type: coffee Number of servings: 2 ROS ROS ED Constitutional Constitutional ED: Reports sweats; Denies chills or fever(s) Eyes Eyes: Denies blurry vision or change in vision ENT ENT ED: Denies rhinorrhea or sore throat Cardiovascular Cardiovascular: Reports chest pain; Denies palpitations Respiratory/Chest Respiratory/Chest: Reports dyspnea; Denies cough Gastrointestinal Gastrointestinal: Denies nausea or vomiting Genitourinary Genitourinary ED: Denies dysuria or hematuria Musculoskeletal Musculoskeletal: Denies back pain or neck pain Integumentary Denies abscess or rash Neurologic Neurologic: Denies headache(s) or weakness Allergic/Immunologic Allergic/Immunologic ED: Denies mouth swelling or urticaria EXAM Physical Exam Const Vital Signs: 04/24/24 16:03 04/24/24 16:36 04/24/24 16:53 Temperature 97 F L Temperature Source Temporal Pulse Rate 73 63 Respiratory Rate 26 H Blood Pressure 130/53 H 141/103 H Blood Pressure Mean 78 Pulse Ox 98 Oxygen Delivery Method Room Air Room Air 04/24/24 17:02 04/24/24 18:00 04/24/24 18:54 Temperature Temperature Source Pulse Rate 61 91 61 Respiratory Rate 16 19 H 15 Blood Pressure 110/55 L 134/60 H 116/59 L Blood Pressure Mean 73 84 78 Pulse Ox 95 95 96 Oxygen Delivery Method Room Air Room Air Room Air 04/24/24 20:00 Temperature Temperature Source Pulse Rate 61 Respiratory Rate 12 Blood Pressure 133/65 H Blood Pressure Mean 87 Pulse Ox 98 Oxygen Delivery Method Positive well nourished and well developed Constitutional Narrative: BMI is 42.0 General Appearance ED: well developed and NAD HEENT Reports moist mucous membranes Neck supple and no JVD Resp normal respiratory effort Auscultation: diminished lung sounds bilateral lower Cardio regular rate and regular rhythm GI soft to palpation, non-tender and non-distended Extremity General Extremety ED: Yes edema; Negative for tenderness General Extremity: edema Neuro oriented x3, CN's II-XII intact bilaterally and no sensory deficits noted Sensorium / Orientation: awake and alert Motor Exam: strength 5/5 throughout Psych mental status grossly normal Heart Score History: Moderately Suspicious ECG: Nonspecific Repolarization Age: >/= 65 years Risk Factors: >/= 3 Risk Factors or History of CAD Troponin: </= Normal Limit Score: 6 MDM MDM MDM Narrative Medical decision making narrative: Differential diagnosis includes cardiac dysrhythmia, cardiac ischemia, congestive heart failure, pneumonia, bronchitis, viral illness, and electrolyte abnormality. EKG will be obtained to assess for cardiac dysrhythmia and cardiac ischemia. Chest x-ray will be obtained to assess for congestive heart failure, pneumonia, and bronchitis. CBC will be obtained to assess for leukocytosis and anemia. Basic metabolic profile will be obtained to assess for electrolyte abnormality and renal function. High-sensitivity troponin will be obtained to assess for cardiac ischemia. 2-hour repeat high-sensitivity troponin will be obtained to assess for ongoing cardiac ischemia. BNP will be obtained to assess for congestive heart failure. History & Record Review Additional record(s) reviewed:: Prior outpatient record (Patient had a cardiac catheterization on 05/22/2021. Patient has not had a stress test or cardiac catheterization since that time.) Lab Data Attestation: I reviewed the patient's lab results. Lab results narrative: CBC was reviewed. There is a mild anemia with a hemoglobin of 11.1 and hematocrit of 33.8. Basic metabolic profile was reviewed. Creatinine was slightly elevated at 1.35. Glucose was slightly elevated at 153. Initial high-sensitivity troponin was reviewed and was normal at 34. 2-hour repeat high-sensitivity troponin was reviewed and was normal at 32. BNP was reviewed and was normal at 171. Labs: Laboratory Results - last 24 hr 04/24/24 04/24/24 16:29 18:12 WBC 7.5 RBC 3.61 L Hgb 11.1 L Hct 33.8 L MCV 93.6 MCH 30.7 MCHC 32.8 RDW Std Deviation 51.0 H RDW Coeff of Carla 14.8 H Plt Count 185 MPV 9.1 Immature Gran % (Auto) 0.500 Neut % (Auto) 62.5 Lymph % (Auto) 23.6 Mora % (Auto) 7.3 Eos % (Auto) 5.7 H Baso % (Auto) 0.4 Absolute Neuts (auto) 4.7 Absolute Lymphs (auto) 1.78 Nucleated RBC % 0 Sodium 135 Potassium 4.0 Chloride 101 Carbon Dioxide 20.7 L Anion Gap 13 BUN 16 Creatinine 1.35 H Estim Creat Clear Calc 68.80 Est GFR (MDRD) Non-Af 56 L BUN/Creatinine Ratio 11.9 Glucose 153 H Calcium 8.9 Troponin T High Sens 34 H Troponin T Hi Sens 2 Hr 32 H Troponin T Hi Sens 2Hr Delta 1 NT pro BNP II 171 Radiography Chest X-Ray - ED: 1 View, Read by ED Physician, Read by Radiologist and No Acute Disease Diagnostic Testing: Clinical Impression(s) from Imaging Studies Chest X-Ray 04/24/24 16:40 IMPRESSION: No radiographic evidence of acute cardiopulmonary disease Reading Location: [facility] Portable 1 view chest x-ray was obtained. On my independent interpretation, lung rocha are clear. There is normal cardiac silhouette. Bony thorax is normal. There is no acute process noted. Radiologist also interpreted the x-ray and agrees. EKG Initial EKG: Attestation: I personally reviewed and interpreted this EKG as follows: Interpretation: Sinus Rhythm (With first-degree AV block with a rate of 68), RBBB and AV Block (First-degree) Comments: EKG was obtained. On my independent interpretation, it showed a sinus rhythm with a first-degree AV block with a rate of 68. WV interval normal was prolonged at 238 ms. QRS interval was prolonged at 174 ms QTc interval is normal at 482 ms. Bone Gap was normal. There is a right bundle branch block pattern. There are n nonspecific ST-T wave changes. Prior EKG tracings: available for review Prior: Unchanged (04/07/2022) Management Discussion w/another healthcare provider: Hospitalist and Test Engineering Intern Treatment and Re-Evaluation :: Patient was given aspirin. Patient was ordered sublingual nitroglycerin as needed for chest pain. Patient was still having some shortness of breath on reevaluation. Patient was advised of his findings. Patient has a HEART score of 6. Case was discussed with Dr. Espinosa. He recommended admission for pharmacologic nuclear stress test. Case was discussed with the hospitalist. She will admit the patient to her service. Patient understood and was agreeable with the plan. All questions were answered. Discharge Plan Triage Chief Complaint: Chest Pain Other Complaint: Shortness of Breath ED Provider: Mac García Dx/Rx/DC Orders Clinical Impression: Chest pain, Essential hypertension, Type 2 diabetes mellitus Prescriptions: No Action rosuvastatin 40 mg tablet 40 mg PO QHS eszopiclone [Lunesta] 3 mg tablet 3 mg PO QHS albuterol sulfate 2.5 mg /3 mL (0.083 %) solution for nebulization 1.25 mg INHALATION Q4H PRN (Reason: Bronchodialation) albuterol sulfate [Proventil HFA] 90 mcg/actuation HFA aerosol inhaler 2 puff INHALATION Q4H PRN (Reason: Bronchodialation) metformin 500 mg tablet extended release 24 hr 1,000 mg PO QHS levothyroxine 50 mcg tablet 50 mcg PO DAILY gabapentin 600 mg tablet 600 mg PO TID venlafaxine 150 mg capsule,extended release 24hr PO DAILY cyanocobalamin (vitamin B-12) [Vitamin B-12] 500 mcg tablet 500 mcg PO DAILY omeprazole 20 mg capsule,delayed release(DR/EC) PO DAILY azelastine 137 mcg (0.1 %) aerosol,spray 1 spray intranasal ONCE buspirone 30 mg tablet 30 mg PO BID lorazepam 0.5 mg tablet PO aspirin 81 MG tablet,chewable 81 mg PO DAILY Patient Comments: heart Rx Instructions: will stop 5 days prior pantoprazole 40 MG tablet 40 mg PO BID Patient Comments: acid reflux tamsulosin 0.4 mg capsule,extended release 24hr 0.4 mg PO QHS Patient Comments: INCREAS URINE FLOW montelukast [Singulair] 10 mg Tablet 10 mg PO DAILY ranolazine 1,000 mg tablet extended release 12 hr 1,000 mg PO BID Qty: 180 3RF isosorbide mononitrate 60 mg tablet extended release 24 hr 60 mg PO DAILY Qty: 90 3RF bupropion HCl 150 mg tablet extended release 24 hr See Rx Instructions .ROUTE .COMPLEX Qty: 90 1RF Dose Instruction: TAKE 1 TABLET BY MOUTH EVERY DAY IN THE MORNING Rx Instructions: TAKE 1 TABLET BY MOUTH EVERY DAY IN THE MORNING amlodipine 5 mg tablet 5 mg PO BID Qty: 180 4RF Primary Care Provider: Adelaida Fraga Referrals: Adelaida Fraga DO [Primary Care Provider] - Print Language: Bengali Disposition Disposition: Acute Care Hospital [facility]
[2024-04-24] MEDS: Aspirin 81 MG TAB.CHEW 324 MG PO (16:53)
[2024-04-24] MEDS: Nitroglycerin SL (ED/IMG/CATH) 0.4 MG TABLET SL (16:53)
[2024-04-24 17:29] LABS: Anion Gap 13 (5-15); BUN 16 mg/dL (4-19); BUN/Creat Ratio 11.9 RATIO (10-20); Calcium,Total 8.9 mg/dL (7.6-11.0); Carbon Dioxide 20.7 mmol/L (21.0-32.0); Chloride 101 mmol/L (98-108); Creatinine, Serum 1.35 mg/dL (0.70-1.20); EST Glomerular Filtration Rate 56 (>60); Glucose 153 mg/dL (70-99); Sodium Level 135 mmol/L (133-145); Troponin T High Sensitivity 34 ng/L (<=22)
[2024-04-24 17:55] LABS: Pro- Brain NATRIURETIC PEPTIDE 171 pg/mL (<=900)
[2024-04-24 19:11] LABS: TROPONIN VARIANCE 2 HR 1; Troponin T High Sens 2 HR 32 ng/L (<=22)
--- NOTE | 2024-04-24 20:30 | PCM.HP.STD ---
HPI - General General Date of Admission: 04/24/24 Date of Service: 04/24/24 Chief Complaint: Chest pain, dyspnea. HPI Narrative The patient is a 73 y/o M w/ PMHx: Hypothyroidism, CKD stage III unclear subtype per GFR trending, Chronic anemia, Morbid obesity, BPH with obstructive pathology, URIEL on CPAP with 2L NC bled in, Asthma with allergic rhinitis/Pulmonary fibrosis/Bronchiectasis, GERD, Anxiety and Depression, CAD s/p PCI, Diabetes mellitus type II with chronic neuropathy, Former tobacco use who presents to the [facility] ED on 04/24/24 with history of dyspnea intermittently over the last week worse today on day of presentation with onset of left-sided dull-heavy chest discomfort radiating into his neck with associated diaphoresis, dyspnea send sensation of palpitations with self administration prior to arrival 1 nitroglycerin at approximately 1515. He notes the symptoms are worse with activity. In the ED patient following nitroglycerin administration notes chest discomfort 3 out of 10 in severity. Upon hospitalist evaluation patient notes heaviness primarily in the chest across the entire chest currently with no radiation to his neck or arms or shoulders with associated dyspnea only rating it now 6-7 out of 10 in severity. Workup in the ED included T97, heart rate 73, BP 130/53, respiratory rate 26, 98% on room air with most recent repeat vitals heart rate 61, BP 133/65, respiratory rate 12, 98% on room air, CBC with WBC 7.5, hemoglobin 11.1, MCV 93.6, platelet 185 without shift, BMP with carbon oxide 20.7, BUN/creatinine 16/1.35, GFR 56, glucose 153, troponin 34, 2-hour 32, 2-hour delta 1, NT proBNP 171, chest x-ray with no acute cardiopulmonary findings, EKG with sinus rhythm with first-degree AV block with no acute evidence of ischemia with nonspecific changes unchanged from previous. In the ED patient instructed full-strength aspirin therapy as well as sublingual nitroglycerin. Given concern and heart score elevated to 6 ED physician discussed case with cardiology Dr. Espinosa who recommended pursuing pharmacological nuclear stress test. FOR[facility], [facility] Medical History CKD (chronic kidney disease), stage III Neuropathy WILFRID (generalized anxiety disorder) MDD (major depressive disorder) Type 2 diabetes mellitus Essential hypertension History of left heart catheterization (LHC) (~05/22/21) Bronchiectasis Pulmonary fibrosis Pre-diabetes SOB (shortness of breath) Abnormal stress test Bronchiectasis Presence of stent in coronary artery (~08/11/05) Hyperlipidemia Depression Anxiety URIEL (obstructive sleep apnea) Prinzmetal angina Atherosclerotic heart disease of [place] coronary artery without angina pectoris Asthma GERD (gastroesophageal reflux disease) BPH (benign prostatic hyperplasia) Home Medications ?Medication ?Instructions ?Recorded ?Last Taken ?Type aspirin 81 mg chewable tablet 81 mg PO DAILY heart health 06/28/13 05/22/21 History albuterol sulfate 2.5 mg/3 mL 1.25 mg inhalation Q4H PRN 07/12/17 Unknown History (0.083 %) solution for nebulization Bronchodialation albuterol sulfate 90 mcg/actuation 2 puff inhalation Q4H PRN 07/12/17 Unknown History aerosol inhaler (Proventil HFA) Bronchodialation rosuvastatin 40 mg tablet 40 mg PO QHS cholesterol 07/14/17 Unknown History tamsulosin 0.4 mg capsule 0.4 mg PO QHS prostate 07/14/17 Unknown History metformin 500 mg tablet,extended 1,000 mg PO QHS 01/10/18 08/27/19 History release 24 hr levothyroxine 50 mcg tablet 50 mcg PO DAILY 04/07/21 Unknown History montelukast 10 mg tablet 10 mg PO DAILY 06/28/22 Unknown History (Singulair) cyanocobalamin (vitamin B-12) 500 500 mcg PO DAILY 12/06/22 Unknown History mcg tablet (Vitamin B-12) gabapentin 600 mg tablet 600 mg PO DAILY 12/06/22 Unknown History omeprazole 20 mg capsule,delayed 20 mg PO DAILY 12/06/22 Unknown History release venlafaxine 150 mg 150 mg PO QHS 12/06/22 Unknown History capsule,extended release 24 hr buspirone 30 mg tablet 30 mg PO BID 06/07/23 Unknown History lorazepam 0.5 mg tablet 0.5 mg PO DAILY PRN anxiety 07/14/23 Unknown History ranolazine 1,000 mg 1,000 mg PO BID #180 tabs 11/25/23 Unknown Rx tablet,extended release,12 hr isosorbide mononitrate 60 mg 60 mg PO DAILY #90 tabs 11/28/23 Unknown Rx tablet,extended release 24 hr bupropion HCl 150 mg 24 hr tablet, See Rx Instructions .Route 12/23/23 Unknown Rx extended release .COMPLEX #90 tabs amlodipine 5 mg tablet 5 mg PO BID #180 tabs 01/16/24 Unknown Rx acidophilus 100 million cap PO DAILY 04/24/24 Unknown History cell-pectin, citrus 10 mg capsule (Probiotic Acidophilus-Pectin) cholecalciferol (vitamin D3) 50 2,000 unit PO DAILY 04/24/24 Unknown History mcg (2,000 unit) capsule linaclotide 72 mcg capsule 72 mcg PO DAILY 04/24/24 Unknown History (Linzess) mirabegron 25 mg tablet,extended 25 mg PO DAILY 04/24/24 Unknown History release 24 hr (Myrbetriq) mirtazapine 7.5 mg tablet 3.75 - 7.5 mg PO QHS 04/24/24 Unknown History venlafaxine 75 mg capsule,extended 75 mg PO DAILY 04/24/24 Unknown History release 24 hr Allergy/AdvReac Type Severity Reaction Status Date / Time iodine Allergy Rash, Verified 04/24/24 16:03 upset stomach, facial swelling Penicillins Allergy Rash Verified 04/24/24 16:03 pseudoephedrine HCl (From Allergy mood Verified 04/24/24 16:03 Actifed) changes Sulfa (Sulfonamide Allergy Rash Verified 04/24/24 16:03 Antibiotics) triprolidine HCl (From Allergy mood Verified 04/24/24 16:03 Actifed) changes ibuprofen AdvReac not able Verified 04/24/24 16:03 to use d/t heart condition Family History (Updated 04/24/24 @ 21:[address] Valorie Hickman MD) Father CAD (coronary artery disease) CVA (cerebral vascular accident) Hypertension Alzheimer's dementia Brother Rheumatoid arthritis Brother Cancer non hodgkins lymphoma Mother Heart disease Surgical History History of esophagogastroduodenoscopy (EGD) Hx of colonoscopy Postsurgical percutaneous transluminal coronary angioplasty (PTCA) status History of lithotripsy History of carpal tunnel surgery History of parathyroid surgery History of rotator cuff surgery History of tonsillectomy Social History household members: spouse Smoking Status: Former smoker how long ago did patient quit smokin years ago alcohol intake: current alcohol intake frequency: a few times a month Alcohol type: beer substance use type: does not use caffeine: Yes Type: coffee Number of servings: 2 ROS ROS Narrative Admission Review of Systems: CONSTITUTIONAL: No weight loss, fever, chills, + weakness or fatigue. HEENT: Eyes: No visual loss, blurred vision, double vision or yellow sclerae. Ears, Nose, Throat: No hearing loss, sneezing, congestion, runny nose or sore throat. SKIN: No rash or itching, lesions, wounds. CARDIOVASCULAR: + Chest pain, palpitations, chronic edema. No orthopnea, syncopal events. RESPIRATORY: + Dyspnea, worse with exertion. No cough or sputum, wheezing, hemoptysis. GASTROINTESTINAL: No anorexia, nausea, vomiting or diarrhea, abdominal pain, melena, BRBPR. GENITOURINARY: No dysuria, frequency, urgency or retention. NEUROLOGICAL: No headache, dizziness, syncope, paralysis, ataxia, numbness or tingling in the extremities, focal weakness, change in bowel or bladder control, seizure. MUSCULOSKELETAL: + muscle, back pain, joint pain or stiffness. HEMATOLOGIC: + Chronic anemia. No reported easy history of bleeding or bruising. LYMPHATICS: No enlarged nodes. No history of splenectomy. PSYCHIATRIC: + History of anxiety and depression. ENDOCRINOLOGIC: No reports of sweating, cold or heat intolerance. No polyuria or polydipsia. ALLERGIES: + History of asthma with allergic rhinitis. Vital Signs Vital Signs Vital Signs: 04/24/24 16:03 04/24/24 16:36 04/24/24 16:53 Temperature 97 F L Temperature Source Temporal Pulse Rate 73 63 Respiratory Rate 26 H Blood Pressure 130/53 H 141/103 H Blood Pressure Mean 78 Pulse Ox 98 Oxygen Delivery Method Room Air Room Air 04/24/24 17:02 04/24/24 18:00 04/24/24 18:54 Temperature Temperature Source Pulse Rate 61 91 61 Respiratory Rate 16 19 H 15 Blood Pressure 110/55 L 134/60 H 116/59 L Blood Pressure Mean 73 84 78 Pulse Ox 95 95 96 Oxygen Delivery Method Room Air Room Air Room Air 04/24/24 20:00 Temperature Temperature Source Pulse Rate 61 Respiratory Rate 12 Blood Pressure 133/65 H Blood Pressure Mean 87 Pulse Ox 98 Oxygen Delivery Method Weight Weight: 292 lb 12.382 oz Body Mass Index (BMI) 42.0 Physical Exam Narrative Physical Examination: General: Awake, alert, oriented x 3 and cooperative, laying in the ED bed, talking with his , comfortable appearing but he does report ongoing worsening heaviness across his chest rating it 6 out of 10 in severity. Skin: Normal color, normal turgor, no icterus, no cyanosis except occasional stage ecchymoses, abrasion. HEENT: AT/NC, EOMI, PERRLA, MMM, thickened neck with difficulty discerning carotid bruit or JVD. Lungs: Mildly diminished, greater bases, proper effort, no evidence of any distress, no rales, ronchi or wheezing. Heart: Mildly bradycardic with regular rhythm; no gallop, rub audible. Abdomen: Soft, morbidly obese NTTP, distant BS, difficult discern distention HSM given habitus. Extremities: No cyanosis, no clubbing, ankle to distal martinez 1-2+ pitting edema which patient notes is chronic and usually resolves by morning. Neurological: Patient awake, alert, oriented as noted, cognitive function intact; pupils equally reactive to light and accommodation, cranial nerves grossly normal, moving all 4 extremities, no focal deficits, strength moderately global decrease secondary to acute presentation complaints. Psychiatric: Affect appears fatigued otherwise normal, no acute evidence of depressive or anxiety feelings but does have underlying history. Results Lab / Micro Data 04/24/24 16:29 04/24/24 16:29 Labs: Laboratory Results - last 24 hr 04/24/24 16:29: WBC 7.5, RBC 3.61 L, Hgb 11.1 L, Hct 33.8 L, MCV 93.6, MCH 30.7, MCHC 32.8, RDW Std Deviation 51.0 H, RDW Coeff of Carla 14.8 H, Plt Count 185, MPV 9.1, Immature Gran % (Auto) 0.500, Neut % (Auto) 62.5, Lymph % (Auto) 23.6, [place] % (Auto) 7.3, Eos % (Auto) 5.7 H, Baso % (Auto) 0.4, Absolute Neuts (auto) 4.7, Absolute Lymphs (auto) 1.78, Nucleated RBC % 0, Sodium 135, Potassium 4.0, Chloride 101, Carbon Dioxide 20.7 L, Anion Gap 13, BUN 16, Creatinine 1.35 H, Estim Creat Clear Calc 68.80, Est GFR (MDRD) Non-Af 56 L, BUN/Creatinine Ratio 11.9, Glucose 153 H, Calcium 8.9, Troponin T High Sens 34 H, NT pro BNP II 171 04/24/24 18:12: Troponin T Hi Sens 2 Hr 32 H, Troponin T Hi Sens 2Hr Delta 1 Imaging Radiology Impression Chest X-Ray 04/24/24 16:40 IMPRESSION: No radiographic evidence of acute cardiopulmonary disease Reading Location: [facility] Assessment & Plan Assessment/Plan (1) Chest pain: PLAN: Plan The patient is a 73 y/o M w/ PMHx: Hypothyroidism, CKD stage III unclear subtype per GFR trending, Chronic anemia, Morbid obesity, BPH with obstructive pathology, URIEL on CPAP with 2L NC bled in, Asthma with allergic rhinitis/Pulmonary fibrosis/Bronchiectasis, GERD, Anxiety and Depression, CAD s/p PCI, Diabetes mellitus type II with chronic neuropathy, Former tobacco use who presents to the [facility] ED on 04/24/24 with history of dyspnea intermittently over the last week worse today on day of presentation with onset of left-sided dull chest discomfort radiating into his neck with associated diaphoresis, dyspnea send sensation of palpitations with self administration prior to arrival 1 nitroglycerin at approximately 1515. #1. Chest Pain, dyspnea, concerning for ACS: EKG with sinus rhythm with first-degree AV block with no acute evidence of ischemia with nonspecific changes unchanged from previous, CXR w/ no acute cardiopulmonary findings, initial trop indeterminant with initial 34, 2-hour 32, 2-hour delta 1. Will admit to PCU, place on a monitored bed to assure no acute myocardial infarction with serial cardiac enzymes and EKGs. If repeat serial cardiac enzymes and EKGs remain unremarkable will pursue a.m. cardiac stress testing however given underlying history if any concerning EKG changes occur or troponins rise low threshold to involve cardiology with judicious fluids and n.p.o. status after midnight. ED did discuss case with cardiology upon presentation who recommended the stress test thus if needed they are already aware of the patient but formal consult has not been placed. ASA, NG, morphine. #2. CAD: Status post PCI proximal LAD (2 stents per patient report) 08/11/2005, will continue aspirin, statin, per current list does not appear to be on beta-alex therapy nor LYNDSEY inhibitor/ARB but clarifying to be certain, continue Ranexa. #3. Chronic anemia, currently normocytic appearing: Admission hemoglobin 11.1, MCV 93.6, baseline MCV does vary and has appeared macrocytic previously, baseline hemoglobin appears similar 11-12, stable, continue to trend. #4. Chronic Kidney Disease Stage III, unclear subtype per GFR trend: Admission BUN/Cr 16/1.35, GFR 56, baseline renal function more recently appears 1.4-1.52, last lab noted 03/01/2024 with creatinine 1.52 at that time and appears to be increasing from previously, repeat BMP in AM. #5. Chronic asthma with allergic rhinitis/pulmonary fibrosis complicated by history of bronchiectasis as well as former tobacco use: Per current list does not appear to be on any chronic inhalers, will have as needed PRN albuterol, HOB, IS parameters, continue patient home montelukast, intranasal spray regimen. #6. Diabetes mellitus type II with chronic neuropathy: Hold oral home regimen, ADA diet until n.p.o. status, accu checks w/ ISS, continue home gabapentin regimen. #7. Hypertension: Continue home regimen including amlodipine, isosorbide, PRN hydralazine. #8. Hyperlipidemia: Continue home statin regimen. AM FLP. #9. Hypothyroidism: We will continue patient home levothyroxine regimen. #10. Anxiety and depression: We will continue patient home venlafaxine and bupropion as well as BuSpar and lorazepam regimen but clarifying to be certain. Also clarifying as patient also listed on q HS mirtazapine. #11. BPH with obstructive pathology: We will continue patient on Flomax regimen. #12. Morbid Obesity: Weight loss and lifestyle changes encouraged. #13. GERD: We will continue patient on PPI. #14. URIEL: CPAP q HS. #15. DVT prophylaxis: Lovenox. #16. CODE status: Patient HCPOA and living will are not in place but he notes his would be his medical decision-maker if necessary or his son who lives locally. Discussed CODE status at length including difference between FULL code, DNR-CCA and DNR-CC status. Following discussions about the differences in these status, requested Full Code status. Advanced Care Planning Face to Face Time: 16 minutes. Charges/Coding Visit Charges Inpatient E&M: 68819 Init Hosp L2 Procedures Hospitalists Procedures: 13264 Advncd Care Plan 30 Min
[2024-04-24 22:26] LABS: Magnesium 2.1 mg/dL (1.5-2.2); TROPONIN VARIANCE 4 HR 2; Troponin T High Sens 4 HR 31 ng/L (<=22)
[2024-04-24 23:44] LABS: Bedside Glucose 96 mg/dL (74-106)
[2024-04-24] MEDS: busPIRone 15 MG TABLET 30 MG PO (23:52)
[2024-04-24] MEDS: 0.9% Normal Saline (1000mL) 1,000 ML 75 ML IV (23:52)
[2024-04-24] MEDS: Venlafaxine XR 150 MG Capsule PO (23:53)
[2024-04-24] MEDS: Tamsulosin HCl 0.4 MG Capsule PO (23:54)
[2024-04-24] MEDS: Atorvastatin Calcium 80 MG Tablet PO (23:54)
[2024-04-24] MEDS: Ranolazine 500 MG Tablet 1000 MG PO (23:55)
[2024-04-24] MEDS: amLODIPine 5 MG Tablet PO (23:55)
[2024-04-24] MEDS: Mirtazapine 15 MG Tablet 7.5 MG PO (23:55)
[2024-04-24] MEDS: CLARIFY ORDER NOTE (23:59)
[2024-04-25 00:11] VITALS: O2SAT 93
[2024-04-25 03:07] VITALS: BP 155/57; PULSE 68; RESP 18; TEMP 36.8; O2SAT 97
[2024-04-25 05:52] LABS: Absolute Lymphocyte Count 1.62 X10^3/uL (0.83-4.51); Absolute Neutrophil Count 4.2 X10^3/uL (2.0-7.7); Basophil# 0.03 X10^3/uL; Basophil% 0.4 % (0-1); Eosinophil# 0.39 X10^3/uL; Eosinophils% 5.8 % (0-5); Hematocrit 32.7 % (40-54); Hemoglobin 10.7 g/dL (13.0-16.5); Lymphocyte # 1.62 X10^3/ul (0.83-4.51); Lymphocyte % 23.9 % (19-41); Mean Corp Hgb Conc 32.7 g/dL (32-36); Mean Corpuscular Hgb 30.6 pg (27.0-32.0); Mean Corpuscular Volume 93.4 fL (80-94); Mean Platelet Vol. 9.6 fl (6.2-12.0); Monocyte# 0.49 X10^3/uL; Monocyte% 7.2 % (0-10); NRBC Flagged by Analyzer 0 % (0-5); Neutrophil # 4.21 X10^3/uL (2.7-7.7); Neutrophil % 62.1 % (47-70); Platelet Count 183 K/mm3 (150-450); RBC Distribution Width CV 14.7 % (11.6-14.6); RBC Distribution Width SD 49.6 fl (35.1-43.9); White Blood Count 6.8 K/mm3 (4.4-11.0)
[2024-04-25] MEDS: Levothyroxine 50 MCG Tablet PO (06:04)
[2024-04-25 06:07] VITALS: BMI 43.0
[2024-04-25 06:09] LABS: ALB/GLOB Ratio 1.7 RATIO (0.9-2.4); AST(SGOT) 15 U/L (<=37); Alanine Aminotransfer ALT/SGPT 16 U/L (<=46); Albumin, Serum 3.5 g/dL (3.4-4.8); Alkaline Phosphatase 53 U/L (40-129); Anion Gap 10 (5-15); BUN 16 mg/dL (4-19); BUN/Creat Ratio 12.6 RATIO (10-20); Calcium,Total 8.8 mg/dL (7.6-11.0); Carbon Dioxide 23.7 mmol/L (21.0-32.0); Chloride 105 mmol/L (98-108); Cholesterol 115 mg/dL (<=200); Creatinine, Serum 1.25 mg/dL (0.70-1.20); EST Glomerular Filtration Rate 62 (>60); Estimated Creatinine Clearance 72.97 ml/min (50-250); Glucose 125 mg/dL (70-99); High Density Lipoprotein 55 mg/dL; Low Density Lipoprotein Calc. 48 mg/dL; Protein, Total 5.6 g/dL (5.9-8.4); Sodium Level 139 mmol/L (133-145); Triglycerides 58 mg/dL; Very Low Density Lipoprotein 12 mg/dL (5-40); cholesterol:hdl ratio screen 2.09
[2024-04-25 06:22] LABS: Bedside Glucose 113 mg/dL (74-106)
[2024-04-25 08:00] VITALS: PULSE 61
[2024-04-25] MEDS: Venlafaxine XR 75 MG Capsule PO (09:33)
[2024-04-25] MEDS: amLODIPine 5 MG Tablet PO (09:33)
[2024-04-25] MEDS: Enoxaparin 40 MG/0.4 ML Syringe SC (09:33)
[2024-04-25] MEDS: Isosorbide Mononitrate 60 MG Tablet PO (09:33)
[2024-04-25] MEDS: Aspirin E.C. 81 MG Tablet PO (09:34)
[2024-04-25] MEDS: busPIRone 15 MG TABLET 30 MG PO (09:34)
[2024-04-25] MEDS: buPROPion (XL) 150 MG TABLET.XL PO (09:34)
[2024-04-25] MEDS: Vibegron 75 MG TABLET PO (09:34)
[2024-04-25] MEDS: Montelukast 10 MG Tablet PO (09:34)
[2024-04-25] MEDS: Ranolazine 500 MG Tablet 1000 MG PO (09:34)
[2024-04-25] MEDS: Pantoprazole Sodium 20 MG Tablet PO (09:34)
--- NOTE | 2024-04-25 09:36 | STRESSREP ---
Stress Test Report Date: 04/25/2024 Procedure: Pharmacologic stress nuclear imaging study Indications: Chest pain Consent: Per the patient Procedure: The patient underwent pharmacologic (Regadenoson 0.4mg ) evaluation with a peak heart rate of 68 beats per minute (45%predicted maximal heart rate) and a peak blood pressure of 130/84 mmHg. The baseline ECG demonstrated sinus rhythm with right bundle branch block. The peak pharmacologic ECG demonstrated no ischemic changes. There were no cardiac dysrhythmias pretest, during pharmacologic infusion, or recovery. Patient had baseline complaints of chest heaviness which remained unchanged during and post pharmacological stress. The patient was injected with 15.0 millicuries of technetium 99m Cardiolite and subsequently rest SPECT Cardiolite nuclear imaging was obtained in the horizontal long, vertical long, and short axis views. The patient underwent pharmacologic (Regadenoson) evaluation. The patient was injected with 45.0 millicuries of technetium 99m Cardiolite and subsequently stress SPECT Cardiolite nuclear imaging was obtained in the horizontal long, vertical long, and short axis views. A gated Cardiolite study at peak stress was obtained. The examination was stopped secondary to completion of protocol. Rest and stress SPECT Cardiolite nuclear imaging status post realignment, normalization, and attenuation correction demonstrate a small perfusion defect of the apex at rest which actually looks better on poststress images. Likely attenuation artifact. There is end systolic thickening and brightening. The gated Cardiolite study demonstrates myocardial thickening and inward wall motion. The reported LVEF is 75%. Impression: 1. Pharmacologic (Regadenoson) evaluation 2. Peak pharmacologic ECG with no diagnostic changes. Patient's baseline complaint of chest heaviness remained unchanged during and after post pharmacological stress. 3. There were no cardiac dysrhythmias pretest, during pharmacologic infusion, or recovery. 5. Rest and stress SPECT Cardiolite nuclear imaging demonstrate relative uniform tracer uptake and myocardial perfusion appearing within normal limits. 6. The gated Cardiolite study reports an LVEF of 75%. This note was generated with [employer] software. It may contain incorrect words, spelling, and punctuation that were not noted in checking the note before signing.
[2024-04-25 09:49] VITALS: BP 124/60; PULSE 62; RESP 14; TEMP 37; O2SAT 99
[2024-04-25] MEDS: Gabapentin 600 MG Tablet PO (09:52)
--- NOTE | 2024-04-25 12:37 | PCM.PN.HOSP ---
Reason for Visit Reason for Visit: Diagnoses Chest pain, unspecified (04/24/24) Subjective Subjective Patient is a 73-year-old gentleman who presented with chest pain Objective Data Objective Data Vital Signs: Vital Signs Temp Pulse Resp BP Pulse Ox O2 Del Method O2 Flow Rate 98.6 F 62 14 124/60 H 99 Room Air 2 04/25/24 09:49 04/25/24 09:49 04/25/24 09:49 04/25/24 09:49 04/25/24 09:49 04/25/24 09:49 04/25/24 03:07 Oxygen Flow Rate (L/min) 2 Oxygen Delivery Method Room Air Weight: 131.9 kg Body Mass Index (BMI) 43.0 Intake & Output: Intake and Output for Last 24 Hours 04/23/24 04/24/24 04/25/24 23:59 23:59 23:59 Intake Total 500 / 500 Output Total 1800 / 1800 Balance -1300 / -1300 Lab / Micro Data 04/25/24 04:53 04/25/24 04:53 Labs: Laboratory Results - last 24 hr 04/24/24 16:29: WBC 7.5, RBC 3.61 L, Hgb 11.1 L, Hct 33.8 L, MCV 93.6, MCH 30.7, MCHC 32.8, RDW Std Deviation 51.0 H, RDW Coeff of Carla 14.8 H, Plt Count 185, MPV 9.1, Immature Gran % (Auto) 0.500, Neut % (Auto) 62.5, Lymph % (Auto) 23.6, [place] % (Auto) 7.3, Eos % (Auto) 5.7 H, Baso % (Auto) 0.4, Absolute Neuts (auto) 4.7, Absolute Lymphs (auto) 1.78, Nucleated RBC % 0, Sodium 135, Potassium 4.0, Chloride 101, Carbon Dioxide 20.7 L, Anion Gap 13, BUN 16, Creatinine 1.35 H, Estim Creat Clear Calc 68.80, Est GFR (MDRD) Non-Af 56 L, BUN/Creatinine Ratio 11.9, Glucose 153 H, Calcium 8.9, Troponin T High Sens 34 H, NT pro BNP II 171 04/24/24 18:12: Troponin T Hi Sens 2 Hr 32 H, Troponin T Hi Sens 2Hr Delta 1 04/24/24 21:44: Magnesium 2.1, Troponin T Hi Sens 4Hr 31 H, Troponin T Hi Sens 4Hr Delta 2 04/24/24 23:26: POC Glucose 96 04/25/24 04:53: WBC 6.8, RBC 3.50 L, Hgb 10.7 L, Hct 32.7 L, MCV 93.4, MCH 30.6, MCHC 32.7, RDW Std Deviation 49.6 H, RDW Coeff of Carla 14.7 H, Plt Count 183, MPV 9.6, Immature Gran % (Auto) 0.600, Neut % (Auto) 62.1, Lymph % (Auto) 23.9, [place] % (Auto) 7.2, Eos % (Auto) 5.8 H, Baso % (Auto) 0.4, Absolute Neuts (auto) 4.2, Absolute Lymphs (auto) 1.62, Nucleated RBC % 0, Sodium 139, Potassium 4.0, Chloride 105, Carbon Dioxide 23.7, Anion Gap 10, BUN 16, Creatinine 1.25 H, Estim Creat Clear Calc 72.97, Est GFR (MDRD) Non-Af 62, BUN/Creatinine Ratio 12.6, Glucose 125 H, Calcium 8.8, Total Bilirubin 0.30, AST 15, ALT 16, Alkaline Phosphatase 53, Total Protein 5.6 L, Albumin 3.5, Globulin 2.0 L, Albumin/Globulin Ratio 1.7, Triglycerides 58, Cholesterol 115, LDL Cholesterol, Calc 48, VLDL Cholesterol 12, HDL Cholesterol 55, Cholesterol/HDL Ratio 2.09 04/25/24 06:03: POC Glucose 113 H Radiography Diagnostic Testing: Radiology Impression Chest X-Ray 04/24/24 16:40 IMPRESSION: No radiographic evidence of acute cardiopulmonary disease Reading Location: [facility] Physical Exam Narrative GENERAL: cooperative HEENT: Atraumatic; normocephalic EYES; Anicteric, Normal Conjunctiva NECK; supple, normal thyroid, RESPIRATORY: Diminished to auscultation CARDIOVASCULAR: Regular S1 S2, GI: soft, normoactive bowel sounds, : No Renal angle tenderness; EXTREMITIES: No edema, no clubbing, MUSCULOSKELETAL: no muscle wasting NEURO: Awake; no lateralizing signs. SKIN: No Rash PSYCH; Flat affect Assessment & Plan Assessment/Plan (1) Chest pain: PLAN: Plan Patient is a 73-year-old gentleman who presented with chest pain 1. Chest pain Patient placed on a monitored bed CT was ruled out with serial cardiac enzymes underwent subsequent evaluation with a stress echo results of which is currently pending 2. Coronary artery disease ? With previous PCI in July 2005 remains on guideline directed medical therapy 3. Hypertension ? Blood pressure controlled, home medications continued with dose adjustment as needed 4. Dyslipidemia ?Patient is on statin therapy, continued at home dose 5. Class III obesity with BMI of 43 ? Complicating care weight loss advised 6. Diabetes mellitus type 2 ? Patient is on metformin held on admission placed on Accu-Cheks before meals and at bedtime with sliding scale coverage 7. Depression with anxiety ? Patient is on venlafaxine continue. Patient is on lorazepam as needed 8. BPH with lower urinary obstructive symptoms - Patient treated with tamsulosin 9. Obstructive sleep apnea ? Consistent use of CPAP encouraged 10. Pulmonary fibrosis ? Per history 11. Bronchiectasis ? Per history 12. GERD ? Patient is on PPI 13. Mild intermittent asthma ? Currently not in exacerbation aerosol treatment as needed 14. Hypothyroidism ? Patient is on levothyroxine home dose continued 15. DVT prophylaxis ? On enoxaparin Time spent in the patient's overall evaluation,decision-making process, review of diagnostic data, adjustment of management, discussion with other providers, nursing nursing and ancillary staff involved in patient's care documentation, 50 Minutes Charges/Coding Visit Charges Inpatient E&M: [address] [place] [id number]
[2024-04-25 14:49] LABS: Bedside Glucose 113 mg/dL (74-106)
[2024-04-25 15:17] VITALS: BP 102/64; PULSE 54; RESP 16; TEMP 36.4; O2SAT 98
--- NOTE | 2024-04-25 15:34 | DS.PCM_ITS ---
Providers Date of Admission: 04/24/24 Date of Discharge: 04/25/24 Primary Care Physician: Dr. Adelaida Fraga, DO Reason For Visit: CHEST PAIN Diagnosis Discharge Diagnosis (1) Chest pain: Status: Acute Code(s): R07.9 - Chest pain, unspecified Plan Patient is a 73-year-old gentleman who presented with chest pain 1. Chest pain Patient placed on a monitored bed CT was ruled out with serial cardiac enzymes underwent subsequent evaluation with a stress echo results of which is currently pending ? Patient nuclear stress test was negative for stress-induced ischemia patient was discharged home instructed to follow-up with primary care physician as well as primary narcotics investigator for subsequent care 2. Coronary artery disease ? With previous PCI in July 2005 remains on guideline directed medical therapy 3. Hypertension ? Blood pressure controlled, home medications continued with dose adjustment as needed 4. Dyslipidemia ?Patient is on statin therapy, continued at home dose 5. Class III obesity with BMI of 43 ? Complicating care weight loss advised 6. Diabetes mellitus type 2 ? Patient is on metformin held on admission placed on Accu-Cheks before meals and at bedtime with sliding scale coverage 7. Depression with anxiety ? Patient is on venlafaxine continue. Patient is on lorazepam as needed 8. BPH with lower urinary obstructive symptoms - Patient treated with tamsulosin 9. Obstructive sleep apnea ? Consistent use of CPAP encouraged 10. Pulmonary fibrosis ? Per history 11. Bronchiectasis ? Per history 12. GERD ? Patient is on PPI 13. Mild intermittent asthma ? Currently not in exacerbation aerosol treatment as needed 14. Hypothyroidism ? Patient is on levothyroxine home dose continued 15. DVT prophylaxis ? On enoxaparin Time spent in the patient's overall evaluation,decision-making process, review of diagnostic data, adjustment of management, discussion with other providers, nursing nursing and ancillary staff involved in patient's care documentation, 50 Minutes Medications at Discharge Home Medications aspirin 81 mg chewable tablet 81 mg PO DAILY [facility] 06/28/13 albuterol sulfate 2.5 mg/3 mL (0.083 %) solution for nebulization 1.25 mg inhalation Q4H PRN Bronchodialation 07/12/17 albuterol sulfate 90 mcg/actuation aerosol inhaler (Proventil HFA) 2 puff inhalation Q4H PRN Bronchodialation 07/12/17 rosuvastatin 40 mg tablet 40 mg PO QHS cholesterol 07/14/17 tamsulosin 0.4 mg capsule 0.4 mg PO QHS prostate 07/14/17 metformin 500 mg tablet,extended release 24 hr 1,000 mg PO QHS 01/10/18 levothyroxine 50 mcg tablet 50 mcg PO DAILY 04/07/21 montelukast 10 mg tablet (Singulair) 10 mg PO DAILY 06/28/22 cyanocobalamin (vitamin B-12) 500 mcg tablet (Vitamin B-12) 500 mcg PO DAILY 12/06/22 gabapentin 600 mg tablet 600 mg PO DAILY 12/06/22 omeprazole 20 mg capsule,delayed release 20 mg PO DAILY 12/06/22 venlafaxine 150 mg capsule,extended release 24 hr 150 mg PO QHS 12/06/22 buspirone 30 mg tablet 30 mg PO BID 06/07/23 lorazepam 0.5 mg tablet 0.5 mg PO DAILY PRN anxiety 07/14/23 ranolazine 1,000 mg tablet,extended release,12 hr 1,000 mg PO BID #180 tabs 11/25/23 isosorbide mononitrate 60 mg tablet,extended release 24 hr 60 mg PO DAILY #90 tabs 11/28/23 bupropion HCl 150 mg 24 hr tablet, extended release See Rx Instructions .Route .COMPLEX #90 tabs 12/23/23 amlodipine 5 mg tablet 5 mg PO BID #180 tabs 01/16/24 acidophilus 100 million cell-pectin, citrus 10 mg capsule (Probiotic Acidophilus-Pectin) 1 cap PO DAILY 04/24/24 cholecalciferol (vitamin D3) 50 mcg (2,000 unit) capsule 2,000 unit PO DAILY 04/24/24 linaclotide 72 mcg capsule (Linzess) 72 mcg PO DAILY 04/24/24 mirabegron 25 mg tablet,extended release 24 hr (Myrbetriq) 25 mg PO DAILY 04/24/24 mirtazapine 7.5 mg tablet 3.75 - 7.5 mg PO QHS 04/24/24 venlafaxine 75 mg capsule,extended release 24 hr 75 mg PO DAILY 04/24/24 Physical Exam Narrative GENERAL: cooperative HEENT: Atraumatic; normocephalic EYES; Anicteric, Normal Conjunctiva NECK; supple, normal thyroid, RESPIRATORY: Diminished to auscultation CARDIOVASCULAR: Regular S1 S2, GI: soft, normoactive bowel sounds, : No Renal angle tenderness; EXTREMITIES: No edema, no clubbing, MUSCULOSKELETAL: no muscle wasting NEURO: Awake; no lateralizing signs. SKIN: No Rash PSYCH; Flat affect Weight / BMI Weight Weight: 131.9 kg Body Mass Index (BMI) 43.0 ABG / Lab / Microbiology Data 04/25/24 04:53 04/25/24 04:53 Laboratory: Laboratory Results - last 24 hr 04/24/24 16:29: WBC 7.5, RBC 3.61 L, Hgb 11.1 L, Hct 33.8 L, MCV 93.6, MCH 30.7, MCHC 32.8, RDW Std Deviation 51.0 H, RDW Coeff of Calra 14.8 H, Plt Count 185, MPV 9.1, Immature Gran % (Auto) 0.500, Neut % (Auto) 62.5, Lymph % (Auto) 23.6, [place] % (Auto) 7.3, Eos % (Auto) 5.7 H, Baso % (Auto) 0.4, Absolute Neuts (auto) 4.7, Absolute Lymphs (auto) 1.78, Nucleated RBC % 0, Sodium 135, Potassium 4.0, Chloride 101, Carbon Dioxide 20.7 L, Anion Gap 13, BUN 16, Creatinine 1.35 H, Estim Creat Clear Calc 68.80, Est GFR (MDRD) Non-Af 56 L, BUN/Creatinine Ratio 11.9, Glucose 153 H, Calcium 8.9, Troponin T High Sens 34 H, NT pro BNP II 171 04/24/24 18:12: Troponin T Hi Sens 2 Hr 32 H, Troponin T Hi Sens 2Hr Delta 1 04/24/24 21:44: Magnesium 2.1, Troponin T Hi Sens 4Hr 31 H, Troponin T Hi Sens 4Hr Delta 2 04/24/24 23:26: POC Glucose 96 04/25/24 04:53: WBC 6.8, RBC 3.50 L, Hgb 10.7 L, Hct 32.7 L, MCV 93.4, MCH 30.6, MCHC 32.7, RDW Std Deviation 49.6 H, RDW Coeff of Carla 14.7 H, Plt Count 183, MPV 9.6, Immature Gran % (Auto) 0.600, Neut % (Auto) 62.1, Lymph % (Auto) 23.9, [place] % (Auto) 7.2, Eos % (Auto) 5.8 H, Baso % (Auto) 0.4, Absolute Neuts (auto) 4.2, Absolute Lymphs (auto) 1.62, Nucleated RBC % 0, Sodium 139, Potassium 4.0, Chloride 105, Carbon Dioxide 23.7, Anion Gap 10, BUN 16, Creatinine 1.25 H, Estim Creat Clear Calc 72.97, Est GFR (MDRD) Non-Af 62, BUN/Creatinine Ratio 12.6, Glucose 125 H, Calcium 8.8, Total Bilirubin 0.30, AST 15, ALT 16, Alkaline Phosphatase 53, Total Protein 5.6 L, Albumin 3.5, Globulin 2.0 L, Albumin/Globulin Ratio 1.7, Triglycerides 58, Cholesterol 115, LDL Cholesterol, Calc 48, VLDL Cholesterol 12, HDL Cholesterol 55, Cholesterol/HDL Ratio 2.09 04/25/24 06:03: POC Glucose 113 H 04/25/24 12:50: POC Glucose 113 H Radiography Diagnostic Testing: Radiology Impression Chest X-Ray 04/24/24 16:40 IMPRESSION: No radiographic evidence of acute cardiopulmonary disease Reading Location: [facility] Instructions Discharge Diet: Low fat / Low cholesterol and 1800 Calorie Control Diet Discharge Activity: Return to Normal Activity Call your doctor if you observe: Fever of 101 or Higher, Shortness of breath, Fainting spells and Chest pain DC O2, CPAP, BIPAP Needs Home O2 Discharge instructions: No Meaningful Use Info Meaningful Use Meaningful Use Diagnoses (Choose all that apply): None applicable Ischemic Stroke Statin Dosing Therapy Reference: STATIN DOSE THERAPY REFERENCE: * Patients > 75 years receive moderate or high dose statin therapy. * Patients 75 years or YOUNGER should receive HIGH intensity statin dose unless contraindicated. You will be required to document reason for non-treatment if statin daily dose does not meet guidelines. HIGH DOSE STATIN THERAPY DAILY Atorvastatin > than or = to 40 mg Rosuvastatin > than or = to 20 mg Amlodipine + Atorvastatin > than or = to 2.5/40 mg Ezetimibe + Simvastatin 10/80 mg Simvastatin 80mg Discharge Plan Admission Admit Date/Time: 04/24/24 20:53 Attending Provider: Evens Hough Primary Care Provider: Adelaida Fraga Consulting Providers: Valorie Hickman Discharge Orders/Prescriptions Prescriptions: Continued rosuvastatin 40 mg tablet 40 mg PO QHS albuterol sulfate 2.5 mg /3 mL (0.083 %) solution for nebulization 1.25 mg INHALATION Q4H PRN (Reason: Bronchodialation) albuterol sulfate [Proventil HFA] 90 mcg/actuation HFA aerosol inhaler 2 puff INHALATION Q4H PRN (Reason: Bronchodialation) metformin 500 mg tablet extended release 24 hr 1,000 mg PO QHS levothyroxine 50 mcg tablet 50 mcg PO DAILY gabapentin 600 mg tablet 600 mg PO DAILY venlafaxine 150 mg capsule,extended release 24hr 150 mg PO QHS cyanocobalamin (vitamin B-12) [Vitamin B-12] 500 mcg tablet 500 mcg PO DAILY omeprazole 20 mg capsule,delayed release(DR/EC) 20 mg PO DAILY buspirone 30 mg tablet 30 mg PO BID lorazepam 0.5 mg tablet 0.5 mg PO DAILY PRN (Reason: anxiety) aspirin 81 MG tablet,chewable 81 mg PO DAILY Patient Comments: heart Rx Instructions: will stop 5 days prior tamsulosin 0.4 mg capsule,extended release 24hr 0.4 mg PO QHS Patient Comments: INCREAS URINE FLOW montelukast [Singulair] 10 mg Tablet 10 mg PO DAILY acidophilus-pectin, citrus [Probiotic Acidophilus-Pectin] 100 million cell-10 mg capsule 1 cap PO DAILY mirabegron [Myrbetriq] 25 mg tablet extended release 24 hr 25 mg PO DAILY cholecalciferol (vitamin D3) 50 mcg (2,000 unit) capsule 2,000 unit PO DAILY venlafaxine 75 mg capsule,extended release 24hr 75 mg PO DAILY mirtazapine 7.5 mg tablet 3.75 - 7.5 mg PO QHS Linzess 72 mcg capsule 72 mcg PO DAILY ranolazine 1,000 mg tablet extended release 12 hr 1,000 mg PO BID Qty: 180 3RF isosorbide mononitrate 60 mg tablet extended release 24 hr 60 mg PO DAILY Qty: 90 3RF bupropion HCl 150 mg tablet extended release 24 hr See Rx Instructions .ROUTE .COMPLEX Qty: 90 1RF Dose Instruction: TAKE 1 TABLET BY MOUTH EVERY DAY IN THE MORNING Rx Instructions: TAKE 1 TABLET BY MOUTH EVERY DAY IN THE MORNING amlodipine 5 mg tablet 5 mg PO BID Qty: 180 4RF Referrals / Follow Up: Flakito,Adelaida, [Primary Care Provider] - Within 2 Weeks Disposition Disposition (needs filled in before D/C Order can be placed): Home, Self Care Charges/Coding Visit Charges Inpatient E&M: 68001 Disch Hosp >30min
[2024-04-25 15:39] VITALS: BP 101/54; PULSE 60; RESP 14; O2SAT 96
== END 2024-04-25 15:46 | disposition home or self-care (01) ==
LOC: ED 21:14 → PCU 22:14
PROVIDERS: Admitting Provider Family Medicine; Emergency Provider Emergency Medicine; PCP Internal Medicine; Visit Provider Internal Medicine
DX: R07.89 Other chest pain (principal); J84.10 Pulmonary fibrosis, unspecified; E66.813 Obesity, class 3; Z68.41 Body mass index [BMI] 40.0-44.9, adult; E11.22 Type 2 diabetes mellitus with diabetic chronic kidney disease; E11.40 Type 2 diabetes mellitus with diabetic neuropathy, unspecified; N18.30 Chronic kidney disease, stage 3 unspecified; E78.00 Pure hypercholesterolemia, unspecified; Z87.891 Personal history of nicotine dependence; F41.1 Generalized anxiety disorder; I25.10 Atherosclerotic heart disease of native coronary artery without angina pectoris; R06.02 Shortness of breath; M79.89 Other specified soft tissue disorders; R00.2 Palpitations; K21.9 Gastro-esophageal reflux disease without esophagitis; G47.33 Obstructive sleep apnea (adult) (pediatric); Z79.899 Other long term (current) drug therapy; Z79.82 Long term (current) use of aspirin; Z79.84 Long term (current) use of oral hypoglycemic drugs; F32.9 Major depressive disorder, single episode, unspecified; N40.1 Benign prostatic hyperplasia with lower urinary tract symptoms; N13.8 Other obstructive and reflux uropathy; D64.9 Anemia, unspecified; J45.20 Mild intermittent asthma, uncomplicated; E03.9 Hypothyroidism, unspecified; Z79.890 Hormone replacement therapy
CPT/HCPCS: 36415; 71045; 78452; 80048; 80053; 80061; 82962; 83735; 83880; 84484; 85025; 93005; 93017; 96360; 96361; 96372; 99221; 99285; A9500; A4216; G0378; J2785

== ENCOUNTER 2024-05-07 11:00 | Outpatient (RCR) | payer MEDICARE, OTHER, SELFPAY ==
--- NOTE | 2024-04-02 18:41 | HP.PTEVAL_ITS ---
Patient's Visit Information Visit Information Visit Information: YUMIKO TAN is a 73 year old M referred to Physical Therapy by Dr. Jose Burton MD with a diagnosis of B LBP W/SCIATICA & SENSORIMOTOR NEUROPATHY. Date of Evaluation: 03/30/24 Physical Therapist: Melvina Kinney PT, Cert MDT Visit Plan Frequency: 2-3x /Week Duration: 4-6 Weeks Plan: Gait and Balance Training. Neutral Spine Core Stability Exercises and Ang LE Hip Flexor, Hamstring and Calf Stretching to help reduce stress to the Lumbar Spine with all Daily Activities. Ang LE Strengthening. Instruction in Proper Posture Control, Body Mechanics, and Appropriate Activity Modifications. HEP Instruction. Subjective Subjective: Work/Leisure: RETIRED Present symptoms: ANG LOW BACK PAIN R>L. ANG LE PAIN. ANG LOWER LEG AND FEET NUMBNESS. ANG LE WEAKNESS. Present since: ABOUT A YEAR AGO Pain Scale: WORST 5/10, LEAST 0/10 Currently: 0/10 Is it getting better, worse or staying the same: STAYING THE SAME Commenced as a result of: NO APPARENT REASON Symptoms at onset: ANG LEG WEAKNESS Worse: R SDLY INCREASES BACK PAIN AND WAKES HIM UP, LIFTING MORE THAN 20 OR 25 LBS INCREASES PAIN. TRYING TO CARRY 8-10 LBS (GALLON OF MILK) ANY DISTANCE PULLS ON BACK AND LEGS GET WEAK. Better: RESTING IN SITTING. Disturbed sleep: AT TIMES Previous history/Previous treatment: PHYSICAL THERAPY AT [facility] A FEW MONTHS AGO - DIDN'T FEEL IT HELPED AT THE TIME BUT AFTER FELT IT DID. DOESN'T REMEMBER GETTING A HOME PROGRAM AND HAD TO STOP DUE TO GETTING COVID AND HERNANDEZ VING ISSUES. NO SURGERY, INJECTIONS OR CHIROPRACTIC. Coughing/sneezing/straining: NEGATIVE FOR INCREASED PAIN Gait: USING A CANE AT ALL TIMES. DOES NOT USE A WALKER. HAS FALLEN. LAST FALL WAS ABOUT 6 MONTHS AGO WHEN WASN'T USING CANE AT ALL TIMES THEN. Bowel or Bladder Dysfunction: SOME UI AND STATES HIS PHYSICIAN IS AWARE Accidents: NO Unexplained weight loss: NO Imaging: [facility] IMAGING OF LOW BACK AND HIPS SHOWING STENOSIS THAT ISN'T BAD ENOUGH TO DO SURGERY PER PATIENT REPORT. 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 FH. ROUNDED SHOULDERS. DECREASED LORDOSIS. INCREASED TRUNK FLEXION. Active Correction of posture: ABLE TO PARTIALLY CORRECT. WEIGHT ON HEELS AND RELUCTANT TO TRANSFER WEIGHT FORWARD. Other Observations: PURSE LIP BREATHING BUT WHEN QUESTIONED PATIENT DENIES NEED TO REST OR EVEN FEELING SHORT OF BREATHE. Sensory deficit: PATIENT REPORTS ALTERED LIGHT TOUCH SENSATION ANG LE'S AND POSITIVE NCT'S. ROM deficit: ANG LE HIP FLEXOR, HS, AND CALF TIGHTNESS. Motor deficit: R LE WEAKER THAN L. Reflexes: UNABLE TO ELICIT ANG LE DTR'S. Dural Signs: NEGATIVE ANG LE'S. Lumbar mvmt loss: flex - MIN ext - JASPER R SG - MOD L SG - MOD PATIENT DENIES INCREASED PAIN WITH LUMBAR ROM TESTING ALL PLANES EXCEPT LUMBAR EXTENSION. NW A RESULT. Core strength: POOR Palpation: PATIENT DENIES LOWER THORACIC, LUMBAR AND HIP TENDERNESS WITH PALPATION. SLS AND TANDEM STANCE: PATIENT UNABLE ANG WITHOUT UE ASSIST FOR MORE THAN 1-2 SEC. TUG TIME: 22.98 SEC WITH CANE AND SUPERVISION. 30 SEC STS TEST WITH 2 UE ASSIST: 5 REPS WITH SUPERVISION ISSUED UNDERSTANDING BALANCE HANDOUT AND EMPHASIZED SECTION ON AVOIDING RISK SECTION AND ENCOURAGED CONTINUED USE OF CANE AT ALL TIMES FOR SAFETY. Balance/Special Test Scores Oswestry Low Back Score: 16 Goals Goal 1:: DECREASE C/O LBP AND LE PAIN BY AT LEAST 50% TO EASE ADL'S Goal Time Frame: 4-6 Weeks Goal 2:: IMPROVE STANDING, ADL, HOUSEWORK AND WALKING FUNCTION WITH AT LEAST 5 POINT IMPROVEMENT IN BACK OSWESTRY SCORE Goal Time Frame: 4-6 Weeks Goal 3:: PATIENT WILL COMPLETE 10 STANDS IN 30 SECS WITH ONE UE ASSIST TO DEMONSTRATE IMPROVED FUNCTIONAL STRENGTH Goal Time Frame: 4-6 Weeks Goal 4:: PATIENT WILL COMPLETE TUG IN < 20 SECS TO DEMONSTRATE IMPROVED GAIT STABILITY Goal Time Frame: 4-6 Weeks Goal 5:: INDEP HEP Goal Time Frame: 4-6 Weeks Rehabilitation Potential Physical Therapy Diagnosis: CORE AND LE STIFFNESS AND WEAKNESS WITH GAIT AND BALANCE DIFFICULTY. Rehabilitation Potential: Good Anticipated Interventions Patient/Client Instruction: Educate patient on: Condition, Plan of Care and Risk Factors For the Purpose of:: To improve self management Therapeutic Exercise to Include: Strength training, Body mechanics, Postural training, Flexibilty training, Gait and locomotor training, Neuromotor development and Dynamic Lumbar Stabilization For the Purpose of:: To decrease pain, To improve muscle performance and motor function, To improve ability to perform ADL's, To increase tolerance to activity/condition/position, To improve ability of physical actions for home/community/work/leisure, To improve gait and locomotor functions, To increase flexibility/ROM and To improve self management Text: Thank you for the opportunity to evaluate your patient. For Medicare and Medicare HMO plans, please review the plan of care and approve it. It will need to be FAXED BACK to us at [phone] for Medicare purposes. For Medicare only, by signing this I certify the plan of care. Please let me know if there are questions or concerns regarding this plan of care. Physician Signature: Date:
--- NOTE | 2024-05-07 11:46 | HP.PTDCSUM ---
Discharge Summary D/C summary: It has been my pleasure to treat YUMIKO TAN referred by Dr. Jose Burton MD, with the diagnosis of B LBP W/SCIATICA & SENSORIMOTOR NEUROPATHY for a total of 8 visit(s). Discharge Date: 05/07/24 Please see the following information for a summary of their discharge status. Subjective Subjective: PATIENT DENIES ANY FALLS SINCE STARTING PT. TODAY HAS BEEN GOOD SO FAR. ABLE TO GET UP AND GO. NO PAIN RIGHT NOW. WALKING AROUND [employer] THE OTHER THE DAY PICKING THINGS UP AND PUTTING THINGS IN THE CART. HAD TO SIT BEFORE GOING TO THE CAR BECAUSE OF LEG WEAKNESS. I THINK THERAPY HAS MADE ME STRONGER. I CAN GET UP OUT OF THE CHAIR EASIER. PATIENT REPORTS HE CAN KEEP WORKING ON HIS OWN NOW AND DOES NOT WANT TO CONTINUE PT. Pain LB: Pain Intensity (Out of 10): 0 Overall Improvement % Improvement: 25 Objective Objective/Function: PATIENT WAS SEEN TODAY FOR RE-ASSESSMENT OF PROGRESS TOWARD THE SET PT GOALS AND THE NEED FOR FURTHER PHYSICAL THERAPY VS READINESS FOR DISCHARGE. THIS PATIENT IS MAKING SLOW PROGRESS WITH PT AND IS A GOOD CANDIDATE TO CONTINUE PT BUT HE WANTS TO TAKE A BREAK. UPON EXAM TODAY: Lumbar mvmt loss: flex - MIN ext - JASPER R SG - MOD L SG - MOD PATIENT DENIES INCREASED PAIN WITH LUMBAR ROM TESTING ALL PLANES EXCEPT LUMBAR EXTENSION. NW A RESULT. Core strength: POOR Palpation: PATIENT DENIES LOWER THORACIC, LUMBAR AND HIP TENDERNESS WITH PALPATION. SLS AND TANDEM STANCE: ABLE TO TANDEM STANCE WITH R LEG IN FRONT X > 1 MIN AND X ~10 SEC WITH L LEG IN FRONT. PATIENT ABLE TO SLS ON L LE X 8 SEC WITHOUT UE ASSIST AND X 3 SEC ON L LE. TUG TIME: 19.[address] CANE. 30 SEC STS TEST: 4 REPS W/HANDS ON THIGHS AND NO FOAM ON CHAIR. Goals Goal 1:: DECREASE C/O LBP AND LE PAIN BY AT LEAST 50% TO EASE ADL'S Goal Progress: Progressing Goal 2:: IMPROVE STANDING, ADL, HOUSEWORK AND WALKING FUNCTION WITH AT LEAST 5 POINT IMPROVEMENT IN BACK OSWESTRY SCORE Goal Progress: Progressing Goal 3:: PATIENT WILL COMPLETE 10 STANDS IN 30 SECS WITH ONE UE ASSIST TO DEMONSTRATE IMPROVED FUNCTIONAL STRENGTH Goal Progress: Progressing Goal 4:: PATIENT WILL COMPLETE TUG IN < 20 SECS TO DEMONSTRATE IMPROVED GAIT STABILITY Goal Progress: Goal Met Goal 5:: INDEP HEP Goal Progress: Progressing Plan Plan: D/C TO HOME EX PER PATIENT REQUEST. D/C Information d/c sentence: If there are questions or concerns regarding this patient's physical therapy, please feel free to call me at [phone]. Thank you for the referral of this patient. Sincerely, Melvina Kinney, PT, Cert MDT Balance/Gait/Functional tests Balance/Special Test Scores Oswestry Low Back Score: 19 Improvement % Improvement: 25
== END 2024-05-07 19:00 | disposition home or self-care (01) ==
LOC: PT 11:00
PROVIDERS: PCP Internal Medicine; Referring Provider Psychiatry & Neurology Neurology; Visit Provider Psychiatry & Neurology Neurology
DX: M54.40 Lumbago with sciatica, unspecified side (principal); G62.9 Polyneuropathy, unspecified
CPT/HCPCS: 97110; 97162; 97530

== ENCOUNTER → 2024-05-16 | Outpatient (CLI) | payer MEDICARE, OTHER, SELFPAY ==
--- NOTE | 2024-05-16 09:15 | US_ITS ---
EXAM: Ultrasound abdomen complete CLINICAL HISTORY: Rule out ascites, increased abdominal girth COMPARISON: CT abdomen and pelvis 06/28/2022 TECHNIQUE: Ultrasound abdomen complete FINDINGS: Study is limited by bowel gas and body habitus. Proximal abdominal aorta measures 2.8 x 2.3 cm, mid 2.2 x 1.7 cm, distal 1.8 x 1.9 cm. The aortic bifurcation is obscured by bowel gas. Inferior vena cava appears patent as visualized. The pancreas appears diffusely increased in echogenicity without focal lesion or ductal dilation identified. The liver measures 17.4 cm and appears within limits for echogenicity. Flow within the portal vein appears hepatopetal as expected. The gallbladder appears within limits without stones, wall thickening or pericholecystic free fluid. Report of a negative sonographic Resendez's sign. Wall measures 3 mm. CBD 3 mm. The right kidney measures 11.7 x 5.7 x 6 cm with a cortical thickness of 1.5 cm. The left kidney measures 12.3 x 6 x 5.5 cm with a cortical thickness of 1 cm. No hydronephrosis, renal stone or perinephric edema identified. The spleen measures 11.1 x 5.2 x 5 cm. No free fluid seen. US/Abdomen Complete IMPRESSION: Study is limited by bowel gas and body habitus. Findings as above. No free fl uid/ascites identified. Reading Location: [id number]
== END | disposition home or self-care (01) ==
PROVIDERS: PCP Internal Medicine; Referring Provider Internal Medicine; Visit Provider Internal Medicine
DX: R19.8 Other specified symptoms and signs involving the digestive system and abdomen (principal)
CPT/HCPCS: 76700

== ENCOUNTER → 2024-06-18 | Outpatient (CLI) | payer MEDICARE, OTHER, SELFPAY ==
[2024-06-18 18:06] LABS: Absolute Lymphocyte Count 1.87 X10^3/uL (0.83-4.51); Absolute Neutrophil Count 3.7 X10^3/uL (2.0-7.7); Basophil# 0.04 X10^3/uL; Basophil% 0.6 % (0-1); Eosinophils% 4.7 % (0-5); Hematocrit 36.2 % (40-54); Hemoglobin 11.8 g/dL (13.0-16.5); Lymphocyte # 1.87 X10^3/ul (0.83-4.51); Mean Corp Hgb Conc 32.6 g/dL (32-36); Mean Corpuscular Hgb 30.9 pg (27.0-32.0); Mean Corpuscular Volume 94.8 fL (80-94); Mean Platelet Vol. 9.4 fl (6.2-12.0); Monocyte# 0.49 X10^3/uL; Monocyte% 7.6 % (0-10); NRBC Flagged by Analyzer 0 % (0-5); Neutrophil # 3.71 X10^3/uL (2.7-7.7); Neutrophil % 57.5 % (47-70); Platelet Count 211 K/mm3 (150-450); RBC Distribution Width CV 14.6 % (11.6-14.6); RBC Distribution Width SD 50.7 fl (35.1-43.9); Red Blood Count 3.82 M/mm3 (4.6-6.2); White Blood Count 6.5 K/mm3 (4.4-11.0)
[2024-06-18 19:07] LABS: ALB/GLOB Ratio 1.4 RATIO (0.9-2.4); AST(SGOT) 17 U/L (<=37); Alanine Aminotransfer ALT/SGPT 19 U/L (<=46); Albumin, Serum 3.7 g/dL (3.4-4.8); Alkaline Phosphatase 52 U/L (40-129); Anion Gap 12 (5-15); BUN 13 mg/dL (4-19); BUN/Creat Ratio 11.5 RATIO (10-20); Calcium,Total 8.9 mg/dL (7.6-11.0); Carbon Dioxide 25.3 mmol/L (21.0-32.0); Chloride 102 mmol/L (98-108); Creatinine, Serum 1.16 mg/dL (0.70-1.20); EST Glomerular Filtration Rate 67 (>60); Ferritin 33 ng/mL (37-417); Globulin 2.6 g/dL (2.2-4.2); Glucose 119 mg/dL (70-99); Iron 55 ug/dL (65-175); Potassium 3.9 mmol/L (3.3-5.1); Protein, Total 6.3 g/dL (5.9-8.4); Sodium Level 139 mmol/L (133-145); Total Bilirubin 0.35 mg/dL (0.00-1.30)
[2024-06-18 19:39] LABS: Cholesterol 127 mg/dL (<=200); High Density Lipoprotein 52 mg/dL; Low Density Lipoprotein Calc. 59 mg/dL; Triglycerides 83 mg/dL; Very Low Density Lipoprotein 17 mg/dL (5-40); cholesterol:hdl ratio screen 2.47
== END | disposition home or self-care (01) ==
LOC: MTLAB 14:24
PROVIDERS: PCP Internal Medicine; Referring Provider Internal Medicine; Visit Provider Internal Medicine
DX: E11.21 Type 2 diabetes mellitus with diabetic nephropathy (principal); D50.9 Iron deficiency anemia, unspecified; E55.9 Vitamin D deficiency, unspecified; E78.49 Other hyperlipidemia
CPT/HCPCS: 36415; 80053; 80061; 82306; 82728; 83036; 83540; 85025

== ENCOUNTER → 2024-06-21 | Outpatient (CLI) | payer MEDICARE, OTHER, SELFPAY ==
--- NOTE | 2024-06-21 06:40 | MRI_ITS ---
PROCEDURE: BRAIN W/WO CONTRAST, 06/21/2024 REASON FOR EXAM: FACIAL PARASTHESIA COMPARISON: 10/14/2022 TECHNIQUE: Multisequence multiplanar MRI brain was performed with and without intravenous contrast. Contrast: 25 mL Clariscan. FINDINGS: Cerebrum: No acute infarct, mass, or appreciable acute intracranial hemorrhage is identified. Minimal largely periventricular supratentorial white matter abnormalities slightly increased from prior, nonspecific but compatible with chronic microvascular ischemic changes. Mild cerebral volume loss. Similar prominent perivascular space in the RIGHT basal ganglia. Cerebellum: Unremarkable. Brainstem: Unremarkable. Ventricles/extra-axial spaces: Cavum septum pellucidum and cavum vergae, normal variants.. Prominence of the 3rd and lateral ventricles bilateral cerebral convexity extra-axial spaces, grossly proportionate to the degree of volume loss. Major flow voids: Grossly unremarkable within limits of nondedicated technique. Paranasal sinuses: Similar trace mastoid effusions.. Scalp/calvarium: Unremarkable. Orbits: Grossly unremarkable within limits of nondedicated technique. Other: No abnormal enhancement. MRI/Brain W/WO Contrast IMPRESSION: 1. No acute or suspicious abnormality identified. 2. Additional description as above. Reading Location: [id number]
== END | disposition home or self-care (01) ==
PROVIDERS: PCP Internal Medicine; Referring Provider Internal Medicine; Visit Provider Internal Medicine
DX: R20.2 Paresthesia of skin (principal)
CPT/HCPCS: 70553; A9575

== ENCOUNTER → 2024-09-10 | Outpatient (CLI) | payer MEDICARE, OTHER, SELFPAY ==
--- NOTE | 2024-09-10 10:38 | CT_ITS ---
PROCEDURE: CHEST WITHOUT CONTRAST 09/10/2024 REASON FOR EXAM: ASTHMA TECHNIQUE: Chest CT without contrast. Coronal and Sagittal reconstruction series were provided. One or more dose reduction techniques were used (e.g., Automated exposure control, adjustment of the mA and/or kV according to patient size, use of iterative reconstruction technique RADIATION DOSE SUMMARY: CTDlvol: 18.87 mGy DLP: 688.48 mGycm COMPARISON: None. FINDINGS: LUNGS: No pulmonary mass. No focal airspace consolidation. Minimal atelectasis/scarring in the left upper and bilateral lower lobes. PLEURAL SPACES: No pleural effusion. No pneumothorax. HEART: No cardiomegaly. No significant pericardial effusion. Multivessel coronary artery calcification/stents. MEDIASTINUM/HILUM: No significant lymphadenopathy. AORTA: No aneurysm. Scattered calcified atherosclerosis. ESOPHAGUS: Unremarkable. CHEST WALL: Mild left-sided gynecomastia. BONES: No acute osseous abnormality. Degenerative changes of the spine. UPPER ABDOMEN: The upper abdominal solid organs are unremarkable. CT/Chest without Contrast IMPRESSION: 1. No acute intrathoracic finding. 2. Coronary artery calcification (CAC) is is present Reading Location: [id number]
== END | disposition home or self-care (01) ==
LOC: CT 10:13
PROVIDERS: PCP Internal Medicine; Referring Provider Internal Medicine Pulmonary Disease; Visit Provider Internal Medicine Pulmonary Disease
DX: J47.9 Bronchiectasis, uncomplicated (principal); J45.909 Unspecified asthma, uncomplicated
CPT/HCPCS: 71250

== ENCOUNTER 2024-10-15 11:28 | Outpatient (RCR) | payer MEDICARE, OTHER, SELFPAY ==
--- NOTE | 2024-10-19 15:30 | HP.PTEVAL_ITS ---
Patient's Visit Information Visit Information Visit Information: YUMIKO TAN is a 74 year old M referred to Physical Therapy by Dr. Adelaida Stephens DO with a diagnosis of MUSCLE WEAKNESS AND BALANCE DISORDER. Date of Evaluation: 10/15/24 Physical Therapist: Melvina Kinney PT, Cert MDT Visit Plan Frequency: 2x /Week Duration: 6-8 WKS Plan: STRENGTH, GAIT AND BALANCE TRAINING TO HELP MEET SET GOALS. HEP INSTRUCTION. Subjective Subjective: PATIENT REPORTS ABOUT 3 WKS AGO HE WENT TO [employer] WITHOUT HIS CANE WITH HIS AND HAD TO STAND LONGER THAN EXPECTED. HE STATES HE WAS LEAVING HE COULD FEEL HIS LEGS GETTING WEAK AND IT GOT TO THE POINT HE COULDN'T WALK. SOMEONE HAD TO GET HIM A CHAIR. HIS HAD WAITED FOR HIM IN THE CAR SO HE WAS STUCK HOLDING ICE CREAM NOT ABLE TO MOVE FOR AWHILE. EVEN AFTER RESTING AND HIS BRINGING HIM THE CANE HE STATES HE BARELY MADE IT TO THE CAR. HE STATES HE CAN DRIVE FINE BUT HE HAS A LOT OF TROUBLE GETTING TO THE CAR AND IN/OUT OF THE CAR. PATIENT REPORTS THE LAST TIME HE FELL WAS ABOUT A MONTH AGO. HIS FALLS HAVE ALMOST ALWAYS BEEN AT THE HOUSE AND HE USUALLY GETS HIMSELF UP. BUT SOMETIMES HE STATES HE FALLS TWICE A WEEK. HE STATES HE HAS A WALKER, A CANE AND A SCOOTER THAT HE USES TO TAKE THE TRASH UP AND GET THE MAIL. HE DENIES PAIN. Present since: 2-3 YEARS. Is it getting better, worse or staying the same: GETTING WORSE Commenced as a result of: PATIENT REPORTS DR. STEPHENS DX'D HIM WITH PERIPHERAL NEUROPATHY. HE STATES HE HAS ALSO BEEN DX'D WITH STENOSIS AND HAS SEEN DR. PAREDES AND A NEURO SURGEON IN [place]. NO SURGERY RECOMMENDED AFTER MRI'S. Symptoms at onset: LEG WEAKNESS. Treatment this episode: PATIENT REPORTS 2 PRIOR EPISODES OF PHYSICAL THERAPY. Bowel or Bladder Dysfunction: BLADDER DYSFUNCTION - STATES DR. STEPHENS HAS HIM ON MEDICATION FOR IT AND HE HAS BEEN TO A UROLOGIST FOR IT. PATIENT DENIES BOWEL INCONTINENCE. THIS PT INFORMED PATIENT TO SEEK MEDICAL ATTENTION IF BOWEL INCONTINENCE DEVELOPS OR URINE INCONTINIENCE CHANGES. Unexplained weight loss: NO Imaging: CERVICAL MRI JUNE 2022: IMPRESSION: Mild disc osteophyte C3-T1. Multilevel degenerative disc disease, flattening the cord anteriorly, facet arthropathy, uncovertebral joint disease and neural foraminal encroachment as above. THORACIC MRI SEP 2022: MPRESSION: 1. Small midline thoracic spinal cord syrinx without cord expansion from T6-T7 down to T8-T9 disc space levels. The spinal cord syrinx is more prominent at the T7-T8 disc space level down to the upper T8 vertebral body level.. There is no associated Chiari anomaly when correlated with the MRI of the cervical spine. 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 MRI of the thoracic spine with intravenous contrast will help confirm benign nonneoplastic syrinx. 2. No MRI evidence of thoracic extruded disc fragment or spinal stenosis. LUMBAR MRI SEP 2022: IMPRESSION: Stable mild degenerative disc disease of the lumbar spine. Most severe findings at the L4-5 level. PMH/Recent major surgery: WILFRID (generalized anxiety disorder) MDD (major depressive disorder) Type 2 diabetes mellitus Essential hypertension History of left heart catheterization (LHC) ~05/22/21 Bronchiectasis Pulmonary fibrosis Pre-diabetes SOB (shortness of breath) Abnormal stress test Bronchiectasis Presence of stent in coronary artery ~08/11/05 Hyperlipidemia Depression Anxiety URIEL (obstructive sleep apnea) Prinzmetal angina Atherosclerotic heart disease of [place] coronary artery without angina pectoris Asthma GERD (gastroesophageal reflux disease) BPH (benign prostatic hyperplasia) Objective Objective: Sitting/Standing Posture: POOR. FLEXED POSTURE. UNABLE TO SLS ON EITHER LE WITHOUT UE ASSIST. Other Observations: THIS PATIENT CAME TO PT WITH A ST. CANE WITH UNSTEADY GAIT. HE WAS TAKEN BACK TO PT ROOM IN A W/C AND BACK OUT TO CAR IN W/C. HE IS A HIGH FALL RISK AND THIS PT RECOMMENDS WALKER FOR SAFETY AT ALL TIMES. Sensory deficit: ANG LE LIGHT TOUCH SENSATION GROSSLY INTACT. FEET NT. ROM deficit: ANG HIP FLEX, HIP ROTATORS, HS AND CALF TIGHTNESS. Motor deficit: ANG LE STRENGTH GROSSLY 4/5 Reflexes: UNABLE TO ELICIT ANG LE DTR'S. Dural Signs: NEGATIVE ANG LE'S. Lumbar mvmt loss: flex - MOD ext - JASPER R SG - JASPER L SG - JASPER PATIENT DENIES PAIN WITH TESTING TODAY BUT HE IS UNSTEADY AND HAS UE ASSIST WITH TESTING. TUG TIME: 41.[address] CANE AND CONTACT GUARD +1. 30 STS: 4 WITH ANG UE ASSIST. Core strength: POOR. Palpation: ANG L345 REGION TENDERNESS. OTHERWISE NOT TENDER IN THE SPINE. Balance/Special Test Scores Lower Extremity Functional Score: 19 Goals Goal 1:: PATIENT WILL COMPLETE 8 STANDS IN 30 SECS WITH ONE UE ASSIST INDEP'LY AND SAFELY TO DEMONSTRATE IMPROVED FUNCTIONAL STRENGTH Goal Time Frame: 6-8 Weeks Goal 2:: PATIENT WILL COMPLETE TUG IN < 25 SECS WITH LEAST AD INDEP'LY AND SAFELY TO DEMONSTRATE IMPROVED GAIT STABILITY Goal Time Frame: 6-8 Weeks Goal 3:: PATIENT WILL AMBULATE 500 FEET WITH LEAST AD INDEP'LY AND SAFELY TO IMPROVE ACTIVITY TOLERANCE. Goal Time Frame: 8-12 Weeks Goal 4:: PATIENT WILL BE INDEP WITH A HEP FOR CONTINUED IMPROVEMENT ONCE FORMAL PHYSICAL THERAPY CONCLUDES. Goal Time Frame: 8-12 Weeks Rehabilitation Potential Physical Therapy Diagnosis: THIS PATIENT PRESENTS TO PT WITH UNSTEADY GAIT, TRUNK AND ANG LE WEAKNESS AND STIFFNESS. HE IS A HIGH FALL RISK AND UNSAFE WITH CANE THAT HE CAME WITH TODAY. HE IS PLEASANT AND COOPERATIVE TO WORK WITH. HE IS A GOOD CANDIDATE FOR STRENGTH AND BALANCE TRAINING. Rehabilitation Potential: Fair Anticipated Interventions Patient/Client Instruction: Educate patient on: Condition, Plan of Care and Risk Factors For the Purpose of:: To improve self management Therapeutic Exercise to Include: Strength training, Endurance training, Balance training, Postural training, Flexibilty training, Gait and locomotor training and Neuromotor development For the Purpose of:: To improve muscle performance and motor function, To improve ability to perform ADL's, To increase tolerance to activity/condition/position, To improve ability of physical actions for home/community/work/leisure, To improve gait and locomotor functions, To increase flexibility/ROM, To improve endurance, To improve balance, To improve safety with gait, To improve safety and To improve self management Text: Thank you for the opportunity to evaluate your patient. For Medicare and Medicare HMO plans, please review the plan of care and approve it. It will need to be FAXED BACK to us at [phone] for Medicare purposes. For Medicare only, by signing this I certify the plan of care. Please let me know if there are questions or concerns regarding this plan of care. Physician Signature: Date:
== END 2024-10-15 19:00 | disposition home or self-care (01) ==
LOC: PT 11:28
PROVIDERS: PCP Internal Medicine; Referring Provider Internal Medicine; Visit Provider Internal Medicine
DX: M62.81 Muscle weakness (generalized) (principal); R26.89 Other abnormalities of gait and mobility
CPT/HCPCS: 97162; 97530

== ENCOUNTER 2024-10-29 09:15 | Emergency (ER) | payer MEDICARE, OTHER, SELFPAY ==
[2024-10-29 09:15] VITALS: BP 130/67; PULSE 65; RESP 18; O2SAT 98
[2024-10-29 09:16] VITALS: BP 130/67; PULSE 66; RESP 18; TEMP 36.6; O2SAT 98; BMI 41.5
--- NOTE | 2024-10-29 09:49 | CASEMGMT ---
Social Work SW responded to [employer] OPERATOR and met pt in ER room. Introduced self and role. Offered to contact any family/friends for him. Pt denied, stating he was okay. Pt denied any needs. SW offered to remain available for any upcoming needs. SW provided verbal hand off to ED SW. Neema Tamez PROCESS EXPERT P[employer]IC DIE MAKER APPRENTICE
--- NOTE | 2024-10-29 10:00 | CT_ITS ---
PROCEDURE: BRAIN/HEAD WITHOUT CONTRAST 10/29/2024 REASON FOR EXAM: INJURY/PAIN TECHNIQUE: Procedure Code: CTBR Modality: CT Procedure: BRAIN/HEAD WITHOUT CONTRAST Coronal and Sagittal reconstruction series were provided. One or more dose reduction techniques were used (e.g., Automated exposure control, adjustment of the mA and/or kV according to patient size, use of iterative reconstruction technique. RADIATION DOSE SUMMARY: CTDlvol: 44.99 mGy DLP: 846 mGycm COMPARISON: Previous MRI of the brain dated 06/21/2024. FINDINGS: Brain: No acute intracranial hemorrhage midline shift or mass effect. No midline shift. Normal ferrell-white matter differentiation. Prominent Virchow John space in the right basal ganglia. Ventricles are normal in size and contour. Cavum septum pellucidum at vergae present. Sinuses/Mastoids: Sinuses and mastoid air cells are clear Bones: No fracture or destructive process CT/Brain/Head without Contrast IMPRESSION: No acute intracranial abnormality. Reading Location: [id number]
--- NOTE | 2024-10-29 10:00 | CT_ITS ---
PROCEDURE: SPINE CERVICAL WITHOUT CONTRAS 10/29/2024 REASON FOR EXAM: INJURY/PAIN TECHNIQUE: Procedure Code: CTSPC Modality: CT Procedure: SPINE CERVICAL WITHOUT CONTRAS Coronal and Sagittal reconstruction series were provided. One or more dose reduction techniques were used (e.g., Automated exposure control, adjustment of the mA and/or kV according to patient size, use of iterative reconstruction technique. RADIATION DOSE SUMMARY: CTDlvol: 70 mGy DLP: 1375 mGycm COMPARISON: June 23, 2022 FINDINGS: Alignment: Straightening of the normal cervical lordosis. Vertebrae: No fracture. Moderate disc space narrowing, marginal endplate spurring from C3-C7 with endplate spurring and uncinate spurring. Facet hypertrophy C2/3 on the left. Soft Tissues: Atherosclerosis of the common carotid and proximal internal carotid on the left and on the proximal internal carotid on the right. No lymphadenopathy. Cerumen is seen in the left external auditory canal. CT/Spine Cervical without Contras IMPRESSION: 1. Straightening of the cervical spine. Consider spasm. 2. Multilevel degenerative changes. 3. No fracture seen. Reading Location: [id number]
[2024-10-29 10:15] VITALS: BP 126/63; O2SAT 98
--- NOTE | 2024-10-29 10:19 | EX.ED.GENINJ ---
HPI History of Present Illness Chief Complaint: Fall Informant: patient Narrative Narrative: Patient is 74-year-old male with history of spinal stenosis, neuropathy, diabetes mellitus, hypertension and coronary artery disease presenting after mechanical fall. Patient was going to an appointment this morning and was trying to get his walker out of the backseat. He states his legs got weak (this happens to him if he is on them for too long and he is currently under evaluation by this with Dr. Dubois and PCP) and he could not grab the walker or door in time which caused him to fall. He did hit his head on the rocks next to where he was parked. Denies any loss of conscious. Is not on any blood thinners. Rapid response was called and patient sent to the ER for evaluation as he did hit his head on the rocks. Patient denies any acute pain from the fall. He states he has chronic weakness of his legs he can only walk/stand for couple minutes before he has to sit down and take a rest before he go further. He states this has been going on for 2 to 3 years and has been told that there is not much they can do about it. He is currently getting second opinion from spine surgery. He states is otherwise been in his normal state of health and has no acute complaints at this time. 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 Asthma GERD (gastroesophageal reflux disease) BPH (benign prostatic hyperplasia) Home Medications ?Medication ?Instructions ?Recorded ?Last Taken ?Type aspirin 81 mg chewable tablet 81 mg PO DAILY heart health 06/28/13 05/22/21 History albuterol sulfate 2.5 mg/3 mL 1.25 mg inhalation Q4H PRN 07/12/17 Unknown History (0.083 %) solution for nebulization Bronchodialation albuterol sulfate 90 mcg/actuation 2 puff inhalation Q4H PRN 07/12/17 Unknown History aerosol inhaler (Proventil HFA) Bronchodialation rosuvastatin 40 mg tablet 40 mg PO QHS cholesterol 07/14/17 Unknown History tamsulosin 0.4 mg capsule 0.4 mg PO QHS prostate 07/14/17 Unknown History metformin 500 mg tablet,extended 1,000 mg PO QHS 01/10/18 08/27/19 History release 24 hr levothyroxine 50 mcg tablet 50 mcg PO DAILY 04/07/21 Unknown History montelukast 10 mg tablet 10 mg PO DAILY 06/28/22 Unknown History (Singulair) cyanocobalamin (vitamin B-12) 500 500 mcg PO DAILY 12/06/22 Unknown History mcg tablet (Vitamin B-12) gabapentin 600 mg tablet 600 mg PO DAILY 12/06/22 Unknown History omeprazole 20 mg capsule,delayed 20 mg PO DAILY 12/06/22 Unknown History release venlafaxine 150 mg 150 mg PO QHS 12/06/22 Unknown History capsule,extended release 24 hr buspirone 30 mg tablet 30 mg PO BID 06/07/23 Unknown History lorazepam 0.5 mg tablet 0.5 mg PO DAILY PRN anxiety 07/14/23 Unknown History isosorbide mononitrate 60 mg 60 mg PO DAILY #90 tabs 11/28/23 Unknown Rx tablet,extended release 24 hr amlodipine 5 mg tablet 5 mg PO BID #180 tabs 01/16/24 Unknown Rx acidophilus 100 million 1 cap PO DAILY 04/24/24 Unknown History cell-pectin, citrus 10 mg capsule (Probiotic Acidophilus-Pectin) cholecalciferol (vitamin D3) 50 2,000 unit PO DAILY 04/24/24 Unknown History mcg (2,000 unit) capsule mirabegron 25 mg tablet,extended 25 mg PO DAILY 04/24/24 Unknown History release 24 hr (Myrbetriq) venlafaxine 75 mg capsule,extended 75 mg PO DAILY 04/24/24 Unknown History release 24 hr eszopiclone 3 mg tablet mg PO QHS PRN 06/05/24 Unknown History nitroglycerin 0.4 mg sublingual 0.4 mg sublingual Q5-15M PRN chest 06/05/24 Unknown Rx tablet pain #25 tabs ranolazine 1,000 mg 1,000 mg PO BID #180 tabs 10/23/24 Unknown Rx tablet,extended release,12 hr azelastine 137 mcg (0.1 %) nasal intranasal 10/29/24 Unknown History spray bupropion HCl 150 mg tablet,12 hr mg PO 10/29/24 Unknown History sustained-release Allergy/AdvReac Type Severity Reaction Status Date / Time iodine Allergy Rash, Verified 10/29/24 09:15 upset stomach, facial swelling Penicillins Allergy Rash Verified 10/29/24 09:15 pseudoephedrine HCl (From Allergy mood Verified 10/29/24 09:15 Actifed) changes Sulfa (Sulfonamide Allergy Rash Verified 10/29/24 09:15 Antibiotics) triprolidine HCl (From Allergy mood Verified 10/26/24 13:33 Actifed) changes ibuprofen AdvReac not able Verified 10/29/24 09:15 to use d/t heart condition Family History Father CAD (coronary artery disease) CVA (cerebral vascular accident) Hypertension Alzheimer's dementia Brother Rheumatoid arthritis Brother Cancer non hodgkins lymphoma Mother Heart disease Surgical History History of esophagogastroduodenoscopy (EGD) Hx of colonoscopy Postsurgical percutaneous transluminal coronary angioplasty (PTCA) status History of lithotripsy History of carpal tunnel surgery History of parathyroid surgery History of rotator cuff surgery History of tonsillectomy Social History household members: spouse Smoking Status: Former smoker how long ago did patient quit smokin years ago alcohol intake: current alcohol intake frequency: a few times a month Alcohol type: beer substance use type: does not use caffeine: Yes Type: coffee Number of servings: 2 ROS ROS ED Constitutional Constitutional ED: Denies chills or fever(s) Eyes Eyes: Denies change in vision Respiratory/Chest Respiratory/Chest: Denies cough or dyspnea Gastrointestinal Gastrointestinal: Denies nausea or vomiting Musculoskeletal Musculoskeletal: Denies back pain or neck pain Integumentary Denies rash Neurologic Neurologic: Reports paresthesias and weakness; Denies headache(s) Hematologic/Lymphatic Hematologic/Lymphatic: Denies easy bleeding or easy bruising EXAM Physical Exam Const Vital Signs: 10/29/24 09:15 10/29/24 09:15 10/29/24 09:16 Temperature 98 F Temperature Source Oral Pulse Rate 65 66 Respiratory Rate 18 18 Respiratory Effort Normal Respiratory Depth Normal Respiratory Pattern Normal Blood Pressure 130/67 H 130/67 H Blood Pressure Mean 88 88 Pulse Ox 98 98 Oxygen Delivery Method Room Air Room Air Room Air 10/29/24 10:15 10/29/24 11:00 10/29/24 11:02 Temperature 98 F Temperature Source Pulse Rate 58 L 58 L Respiratory Rate 18 18 Respiratory Effort Respiratory Depth Respiratory Pattern Blood Pressure 126/63 H 113/52 L 113/52 L Blood Pressure Mean 84 72 72 Pulse Ox 98 98 98 Oxygen Delivery Method Room Air Room Air Positive well nourished and well developed General Appearance ED: well developed and NAD HEENT HEENT Narrative: Small abrasion to the vertex of the scalp consistent with his recent head injury. No cephalhematoma or palpable skull fracture present. No hemotympanum appreciated. No trismus. No trauma to the face appreciated. Eyes PERRL and EOMs intact bilaterally Neck full ROM Neck Narrative: No step-off sign. General: Negative for tenderness Chest Wall inspection of chest normal Resp normal respiratory effort and clear to auscultation bilaterally Cardio regular rhythm Cardio Narrative: 2+ radial pulses. 1+ DP pulses. Good capillary refill. Rate: regular rate GI non-tender and non-distended Back/Spine normal to inspection and no thoracic nor lumbar tenderness Thoracic Spine / Upper Back: Negative for thoracic spinal tenderness Extremity normal to inspection and full ROM Extremity Narrative: Some chronic skin changes to the lower extremities/feet. No active wound or cellulitic changes General Extremety ED: Negative for deformity or edema General Extremity: Negative for deformity or edema Neuro oriented x3, moves all extremities, no focal motor deficits and no sensory deficits noted Christopher Coma Scale: document GCS findings Spontaneous Obeys Commands Oriented 15 Psych mental status grossly normal and thought process normal Skin no rashes or lesions noted MDM MDM MDM Narrative Medical decision making narrative: Patient is evaluated after mechanical fall with head injury. Will obtain CT of the brain and cervical spine to rule out intracranial hemorrhage, skull fracture or cervical spine fracture. Patient overall well-appearing and at his baseline. Hemodynamically stable. Do not think he requires workup for syncope or generalized weakness. I did discuss with patient that given that he has profound leg weakness after couple minutes of activity will refer to vascular surgery in case he has some type of vascular insufficiency that is contribute to his leg weakness. He is amenable with that. He has distal pulses and I do not think requires any emergent vascular workup at this time. CT imaging does not show any acute traumatic process. Patient comfortable with discharge and follow-up. Given return precautions. Radiography Diagnostic Testing: Clinical Impression(s) from Imaging Studies Brain CT 10/29/24 10:00 IMPRESSION: No acute intracranial abnormality. Reading Location: [facility] Cervical Spine CT 10/29/24 10:00 IMPRESSION: 1. Straightening of the cervical spine. Consider spasm. 2. Multilevel degenerative changes. 3. No fracture seen. Reading Location: [facility] Discharge Plan Triage Chief Complaint: Fall ED Provider: Hoa Farmer Dx/Rx/DC Orders Clinical Impression: Closed head injury, Bilateral leg weakness Instructions: ED Head Injury (Adult) Prescriptions: No Action rosuvastatin 40 mg tablet 40 mg PO QHS albuterol sulfate 2.5 mg /3 mL (0.083 %) solution for nebulization 1.25 mg INHALATION Q4H PRN (Reason: Bronchodialation) albuterol sulfate [Proventil HFA] 90 mcg/actuation HFA aerosol inhaler 2 puff INHALATION Q4H PRN (Reason: Bronchodialation) metformin 500 mg tablet extended release 24 hr 1,000 mg PO QHS levothyroxine 50 mcg tablet 50 mcg PO DAILY gabapentin 600 mg tablet 600 mg PO DAILY venlafaxine 150 mg capsule,extended release 24hr 150 mg PO QHS cyanocobalamin (vitamin B-12) [Vitamin B-12] 500 mcg tablet 500 mcg PO DAILY omeprazole 20 mg capsule,delayed release(DR/EC) 20 mg PO DAILY buspirone 30 mg tablet 30 mg PO BID lorazepam 0.5 mg tablet 0.5 mg PO DAILY PRN (Reason: anxiety) eszopiclone 3 mg tablet PO QHS PRN nitroglycerin 0.4 mg tablet, sublingual 0.4 mg SUBLINGUAL Q5-15M PRN (Reason: chest pain) Qty: 25 3RF Rx Instructions: do not exceed 3 doses per episode aspirin 81 MG tablet,chewable 81 mg PO DAILY Patient Comments: heart Rx Instructions: will stop 5 days prior tamsulosin 0.4 mg capsule,extended release 24hr 0.4 mg PO QHS Patient Comments: INCREAS URINE FLOW montelukast [Singulair] 10 mg Tablet 10 mg PO DAILY bupropion HCl 150 mg tablet sustained-release 12 hr PO Patient Comments: [NO ORIGINAL SIG] azelastine 137 mcg (0.1 %) spray,non-aerosol INTRANASAL Patient Comments: [NO ORIGINAL SIG] acidophilus-pectin, citrus [Probiotic Acidophilus-Pectin] 100 million cell-10 mg capsule 1 cap PO DAILY mirabegron [Myrbetriq] 25 mg tablet extended release 24 hr 25 mg PO DAILY cholecalciferol (vitamin D3) 50 mcg (2,000 unit) capsule 2,000 unit PO DAILY venlafaxine 75 mg capsule,extended release 24hr 75 mg PO DAILY isosorbide mononitrate 60 mg tablet extended release 24 hr 60 mg PO DAILY Qty: 90 3RF amlodipine 5 mg tablet 5 mg PO BID Qty: 180 4RF ranolazine 1,000 mg tablet extended release 12 hr 1,000 mg PO BID Qty: 180 3RF Primary Care Provider: Adelaida Fraga Referrals: Adelaida Fraga DO [Primary Care Provider] - Mac Alvarado MD [Med Staff - Active Staff] - Print Language: Icelandic Disposition Disposition: Home, Self Care Discharge Date/Time: 10/29/24 11:07
[2024-10-29 11:00] VITALS: BP 113/52; PULSE 58; RESP 18; O2SAT 98
[2024-10-29 11:02] VITALS: BP 113/52; PULSE 58; RESP 18; TEMP 36.6; O2SAT 98
== END 2024-10-29 11:07 | disposition home or self-care (01) ==
PROVIDERS: Emergency Provider Emergency Medicine; PCP Internal Medicine; Visit Provider Emergency Medicine
DX: S09.90XA Unspecified injury of head, initial encounter (principal); E11.22 Type 2 diabetes mellitus with diabetic chronic kidney disease; E11.40 Type 2 diabetes mellitus with diabetic neuropathy, unspecified; N18.30 Chronic kidney disease, stage 3 unspecified; I25.10 Atherosclerotic heart disease of native coronary artery without angina pectoris; G47.33 Obstructive sleep apnea (adult) (pediatric); Z87.891 Personal history of nicotine dependence; W19.XXXA Unspecified fall, initial encounter
CPT/HCPCS: 70450; 72125; 99282

== ENCOUNTER → 2024-11-08 | Outpatient (CLI) | payer MEDICARE, OTHER, SELFPAY ==
--- NOTE | 2024-11-08 17:08 | MRI_ITS ---
PROCEDURE: SPINE LUMBAR (ROUTINE) 11/08/2024 REASON FOR EXAM: PAIN, STENOSIS, DECREASED WALKING TOLERANCE. TECHNIQUE: Procedure Code: MRISPL Modality: MR Procedure: SPINE LUMBAR (ROUTINE) COMPARISON: MRI lumbar spine 10/14/2022. FINDINGS: Vertebrae: Preserved in height and signal. Alignment: Retrolisthesis L1 on L2 by 1 mm. Conus Medullaris: Unremarkable. L1-2: Disc desiccation. No significant foraminal or canal stenosis. L2-3: Disc bulge. Facet joint arthropathy. Ligamentum flavum hypertrophy. Facet joint effusion. Mild inferior bilateral foramina stenosis. Mild canal stenosis. L3-4: Disc desiccation. Disc bulge. Facet joint arthropathy. Ligamentum flavum hypertrophy. Right facet joint effusion. Mild inferior bilateral foramina stenosis. Moderate canal stenosis. L4-5: Facet joint arthropathy. Disc bulge. No foramina stenosis. No canal stenosis. L5-S1: No foraminal or canal stenosis. Sacrum: No acute findings. MRI/Spine Lumbar (Routine) IMPRESSION: Degenerate changes predominantly at L3-L4 where there is moderate canal stenosi s. These findings have mildly worsened compared to MRI 10/14/2022. Bilateral facet joint arthropathy with corresponding mild foramina stenosis at L2-L3 and L3-L4. Reading Location: [id number]
== END | disposition home or self-care (01) ==
LOC: MRI 16:32
PROVIDERS: PCP Internal Medicine; Referring Provider Student in an Organized Health Care Education/Training Program; Visit Provider Student in an Organized Health Care Education/Training Program
DX: M48.062 Spinal stenosis, lumbar region with neurogenic claudication (principal); M51.362 Other intervertebral disc degeneration, lumbar region with discogenic back pain and lower extremity pain
CPT/HCPCS: 72148

== ENCOUNTER → 2024-11-09 | Outpatient (CLI) | payer MEDICARE, OTHER, SELFPAY ==
--- NOTE | 2024-11-09 12:53 | ECHOD_ITS ---
Reason For Study Reason For Study: SHORTNESS OF BREATH Procedure This was a 2D Doppler, Color Flow transthoracic echocardiogram. The study was technically difficult. Exam performed in department. Left Ventricle Normal LV size. Moderate concentric left ventricular hypertrophy. The left ventricular ejection fraction is 60 %. No regional wall motion abnormalities noted. Right Ventricle Normal RV size. Normal systolic function. Atria Normal left atrium. Mitral Valve Normal mitral valve. Tricuspid Valve Normal tricuspid valve. Mild tricuspid valve insufficiency. Pulmonary artery systolic pressure is 25 mmHg. Aortic Valve Trisinus/trileaflet aortic valve. Pulmonic Valve Normal pulmonic valve. Great Vessels Mildly dilated aortic root. The pulmonary artery is normal size. Inferior vena cava collapse with respiration. Pericardium/Pleural No pericardial effusion. MMode/2D Measurements & Calculations LVIDd: 5.4 cm IVSd: 1.5 cm LVOT diam: 2.3 cm LVIDs: 2.8 cm LVPWd: 1.3 cm LVOT area: 4.1 cm2 RVDd: 3.7 cm FS: 47.6 % asc Aorta Diam: 3.8 cm LAV(MOD-bp): 48.6 ml LVAd ap4: 23.6 cm2 LAV(MOD-bp) Indexed: 20.4 ml/m2 LVLd ap4: 8.4 cm LAV(MOD-sp2): 56.5 ml EDV(MOD-sp4): 55.1 ml LAV(MOD-sp4): 41.0 ml EDV(sp4-el): 56.6 ml LVAs ap4: 13.8 cm2 LVLs ap4: 7.2 cm ESV(MOD-sp4): 22.1 ml ESV(sp4-el): 22.6 ml EF(MOD-sp4): 60.0 % EF(sp4-el): 60.0 % LVAd ap2: 22.7 cm2 SV(MOD-sp4): 33.1 ml SV(MOD-sp2): 38.3 ml LVLd ap2: 8.0 cm SI(MOD-sp4): 13.9 ml/m2 SI(MOD-sp2): 16.1 ml/m2 EDV(MOD-sp2): 54.3 ml EDV(sp2-el): 54.8 ml LVAs ap2: 11.2 cm2 LVLs ap2: 7.0 cm ESV(MOD-sp2): 16.0 ml ESV(sp2-el): 15.1 ml EF(MOD-sp2): 70.5 % SV(sp4-el): 34.0 ml Ao sinus diam: 4.[address] Junction: 3.2 cm LA dimension(2D): 4.1 cm LA A4 area: 18.0 cm2 RA A4 area: 15.9 cm2 TAPSE: 3.1 cm Time Measurements MV dec time: 0.23 sec Doppler Measurements & Calculations MV E max st[place]: 91.1 cm/sec Lat Peak E' Stanford: 13.0 cm/sec Med Peak E' [place]: 11.4 cm/sec MV A max [place]: 82.9 cm/sec E/E' lat: 7.0 E/E' med: 8.0 MV E/A: 1.1 MV dec slope: 398.0 cm/sec2 Ao V2 max: 144.9 cm/sec LV V1 max: 110.3 cm/sec Ao max P.4 mmHg LV V1 max P.9 mmHg Ao V2 mean: 97.3 cm/sec LV V1 mean P.2 mmHg Ao mean P.4 mmHg LV V1 mean: 86.2 cm/sec Ao V2 VTI: 32.2 cm LV V1 VTI: 22.2 cm AV (velocity ratio): 0.69 SHARLA(I,D): 2.8 cm2 SHARLA(V,D): 3.1 cm2 SV(LVOT): 91.6 ml PA V2 max: 103.4 cm/sec TR max stanford: 231.1 cm/sec TR max P.4 mmHg ECHO/Echo Complete Interpretation Summary Normal LV size. The left ventricular ejection fraction is 60 %. Moderate concentric left ventricular hypertrophy. Structurally normal valves. Ordering Physician: Yola Witt Referring Physician: Adelaida Fraga D.O. Performed By: Yolanda Hector RDCS
== END | disposition home or self-care (01) ==
LOC: CVS 12:52
PROVIDERS: PCP Internal Medicine; Referring Provider Nurse Practitioner Gerontology; Visit Provider Nurse Practitioner Gerontology
DX: R06.02 Shortness of breath (principal)
CPT/HCPCS: 93306

== ENCOUNTER → 2024-11-12 | Outpatient (CLI) | payer MEDICARE, OTHER, SELFPAY ==
--- NOTE | 2024-11-12 08:58 | US_ITS ---
PROCEDURE: BREAST LIMITED UNILATERAL 11/12/2024 REASON FOR EXAM: M, Age 74 y/o , BREAST MASS, L BREAST - BREAST US COMPARISON: Prior mammogram done earlier in the day.. TECHNIQUE: Procedure Code: USBRSTLIMIT Modality: US Procedure: BREAST LIMITED UNILATERAL FINDINGS: The retroareolar region of the left breast was examined with ultrasound. There is evidence of retroareolar glandular tissue. Dilated retroareolar ducts. Findings suggestive of gynecomastia. US/Breast Limited Unilateral IMPRESSION: Findings suggestive of gynecomastia. BI-RADS 2: BENIGN RECOMMENDATION: Routine annual follow-up in 1 Year Reading Location: [place] [id number]
--- NOTE | 2024-11-12 09:00 | BI_ITS ---
EXAM: DIAG MAMM W/CAD, BILAT 11/12/2024 CLINICAL HISTORY: M, Age 74 y/o , BILATERAL DIAGNOSTIC MAMMOGRAM - BILATERAL BREAST MASS, L WORSE T TECHNIQUE: Procedure Code: [id number] Modality: MG Procedure: DIAG MAMM W/CAD, BILAT. COMPARISON: This is a baseline study. FINDINGS: TISSUE DENSITY: The breasts are almost entirely fatty. Bilateral Breast Mammographic Findings: No significant masses, calcifications or other abnormalities are identified. Asymmetrical breast tissue were more breast tissue is seen in the left retroareolar region as compared to the right side. Disc correlates with the patient's history of left palpable mass. Ultrasound recommended BI/DIAG MAMM W/CAD, BILAT IMPRESSION: Asymmetrical breast tissue were more breast tissue is seen in the left retroare olar region as described. This corresponds with the palpable lump. Correlation with ultrasound recommended. OVERALL FINAL ASSESSMENT BI-RADS 0: INCOMPLETE - NEED ADDITIONAL IMAGING EVALUATION. RECOMMENDATION: Ultrasound Recommended Additional Recommendation none A letter with findings and recommendations will be mailed to the patient. Reading Location: [place] [address]
== END | disposition home or self-care (01) ==
LOC: OPBI 08:57
PROVIDERS: PCP Internal Medicine; Referring Provider Internal Medicine; Visit Provider Internal Medicine
DX: N63.42 Unspecified lump in left breast, subareolar (principal); N64.4 Mastodynia
CPT/HCPCS: 76642; 77062; 77066; G0279

== ENCOUNTER → 2024-11-26 | Outpatient (CLI) | payer MEDICARE, OTHER, SELFPAY ==
[2024-11-26 15:45] LABS: Creatinine, Urine (random) 130.00 mg/dL (39.00-259.00); Microalbumin,Random Urine 21.4 mg/L (<20 mg/L)
[2024-11-26 15:46] LABS: Hematocrit 35.7 % (40-54); Hemoglobin 12.3 g/dL (13.0-16.5); Immature Granulocytes Count 0.040 X10^3/uL (0.0-0.0); Mean Corp Hgb Conc 34.5 g/dL (32-36); Mean Corpuscular Volume 93.2 fL (80-94); Mean Platelet Vol. 9.7 fl (6.2-12.0); NRBC Flagged by Analyzer 0 % (0-5); Platelet Count 210 K/mm3 (150-450); RBC Distribution Width CV 13.5 % (11.6-14.6); RBC Distribution Width SD 45.7 fl (35.1-43.9); Red Blood Count 3.83 M/mm3 (4.6-6.2); White Blood Count 8.7 K/mm3 (4.4-11.0)
[2024-11-26 16:33] LABS: AST(SGOT) 15 U/L (<=37); Alanine Aminotransfer ALT/SGPT 18 U/L (<=46); Albumin, Serum 3.6 g/dL (3.4-4.8); Alkaline Phosphatase 45 U/L (40-129); Anion Gap 13 (5-15); BUN 17 mg/dL (4-19); BUN/Creat Ratio 16.5 RATIO (10-20); Calcium,Total 9.2 mg/dL (7.6-11.0); Carbon Dioxide 22.7 mmol/L (21.0-32.0); Chloride 101 mmol/L (98-108); Cholesterol 126 mg/dL (<=200); Ferritin 65 ng/mL (37-417); Globulin 2.5 g/dL (2.2-4.2); Glucose 99 mg/dL (70-99); Low Density Lipoprotein Calc. 62 mg/dL; Potassium 4.8 mmol/L (3.3-5.1); Triglycerides 64 mg/dL; Very Low Density Lipoprotein 13 mg/dL (5-40); Vitamin B12 651 pg/mL (180-914); cholesterol:hdl ratio screen 2.47
[2024-11-26 16:37] LABS: CRP < 3.00 mg/L (0.0-3.0)
[2024-11-26 16:49] LABS: Iron 79 ug/dL (65-175)
[2024-11-26 17:06] LABS: FOLATES,SERUM (FOLIC ACID) 32.30 ng/mL (4.60-34.80)
[2024-11-28 13:08] LABS: ANTINUCLEAR ANTIBODIES DIRECT Positive (Negative)
[2024-11-28 16:56] LABS: Vitamin D,25 Hydroxy 48.9 ng/mL (30-100)
[2024-11-29 16:09] LABS: Immunoglobulin A 168 mg/dL (61-437); Immunoglobulin G 619 mg/dL (603-1613); Immunoglobulin M 59 mg/dL (15-143); PROEL- A/G Ratio 1.0 (0.7-1.7); PROEL- Albumin 2.9 g/dL (2.9-4.4); PROEL- Alpha-1 Globulin 0.2 g/dL (0.0-0.4); PROEL- Alpha-2 Globulin 1.0 g/dL (0.4-1.0); PROEL- Beta Globulin 0.9 g/dL (0.7-1.3); PROEL- Gamma Globulin 0.6 g/dL (0.4-1.8); PROEL- Globulin, Total 2.8 g/dL (2.2-3.9); PROEL- TOTAL PROTEIN 5.7 g/dL (6.0-8.5); PROEL-M-Spike Not Observed g/dL (Not Observed); PROELU- Albumin, Urine 38.0 % (.); PROELU- Alpha-1-Globulin,Ur 1.9 % (.); PROELU- Alpha-2-Globulin,Ur 12.6 % (.); PROELU- Beta Globulin, Ur 30.7 % (.); PROELU- Gamma Globulin, Ur 16.8 % (.); Total Protein, Ur 15.9 mg/dL (Not Estab.)
== END | disposition home or self-care (01) ==
LOC: MTLAB 12:25
PROVIDERS: PCP Internal Medicine; Referring Provider Internal Medicine; Visit Provider Internal Medicine
DX: E11.21 Type 2 diabetes mellitus with diabetic nephropathy (principal); E11.42 Type 2 diabetes mellitus with diabetic polyneuropathy; R77.8 Other specified abnormalities of plasma proteins; E78.49 Other hyperlipidemia; E53.8 Deficiency of other specified B group vitamins; E03.9 Hypothyroidism, unspecified; D50.9 Iron deficiency anemia, unspecified; E55.9 Vitamin D deficiency, unspecified; M25.50 Pain in unspecified joint
CPT/HCPCS: 36415; 80053; 80061; 82043; 82306; 82570; 82607; 82728; 82746; 82784; 83036; 83540; 83883; 84165; 84166; 84443; 85025; 85652; 86038; 86140; 86334; 86431

== ENCOUNTER → 2024-12-25 | Outpatient (CLI) | payer MEDICARE, OTHER, SELFPAY ==
--- NOTE | 2024-12-25 13:01 | CDU_ITS ---
Reason For Study VL/Carotid Duplex Ultrasound
== END | disposition home or self-care (01) ==
LOC: CVS 12:59
PROVIDERS: PCP Internal Medicine; Referring Provider Internal Medicine; Visit Provider Internal Medicine
DX: I65.23 Occlusion and stenosis of bilateral carotid arteries (principal)
CPT/HCPCS: 93880

== ENCOUNTER → 2025-02-06 | Outpatient (CLI) | payer MEDICARE, OTHER, SELFPAY ==
[2025-02-06 15:36] LABS: Hematocrit 40.7 % (40-54); Hemoglobin 13.6 g/dL (13.0-16.5); Immature Granulocytes Count 0.080 X10^3/uL (0.0-0.0); Mean Corp Hgb Conc 33.4 g/dL (32-36); Mean Corpuscular Volume 97.8 fL (80-94); Mean Platelet Vol. 9.1 fl (6.2-12.0); NRBC Flagged by Analyzer 0 % (0-5); Platelet Count 252 K/mm3 (150-450); RBC Distribution Width CV 13.7 % (11.6-14.6); RBC Distribution Width SD 49.7 fl (35.1-43.9); Red Blood Count 4.16 M/mm3 (4.6-6.2); White Blood Count 7.0 K/mm3 (4.4-11.0)
[2025-02-06 16:18] LABS: AST(SGOT) 20 U/L (<=37); Alanine Aminotransfer ALT/SGPT 17 U/L (<=46); Albumin, Serum 3.9 g/dL (3.4-4.8); Alkaline Phosphatase 41 U/L (40-129); Anion Gap 11 (5-15); BUN 12 mg/dL (4-19); BUN/Creat Ratio 12.2 RATIO (10-20); Calcium,Total 9.0 mg/dL (7.6-11.0); Carbon Dioxide 23.5 mmol/L (21.0-32.0); Chloride 100 mmol/L (98-108); Cholesterol 138 mg/dL (<=200); Ferritin 65 ng/mL (37-417); Globulin 2.6 g/dL (2.2-4.2); Glucose 109 mg/dL (70-99); Low Density Lipoprotein Calc. 65 mg/dL; Potassium 3.9 mmol/L (3.3-5.1); Triglycerides 118 mg/dL; Very Low Density Lipoprotein 24 mg/dL (5-40); Vitamin D,25 Hydroxy 49.0 ng/mL (30-100); cholesterol:hdl ratio screen 2.66
[2025-02-06 17:21] LABS: Iron 93 ug/dL (65-175)
== END | disposition home or self-care (01) ==
LOC: CIMLAB 13:16
PROVIDERS: PCP Internal Medicine; Referring Provider Internal Medicine; Visit Provider Internal Medicine
DX: E78.49 Other hyperlipidemia (principal); E11.42 Type 2 diabetes mellitus with diabetic polyneuropathy; R39.15 Urgency of urination; I10 Essential (primary) hypertension; D50.9 Iron deficiency anemia, unspecified; E55.9 Vitamin D deficiency, unspecified; E03.9 Hypothyroidism, unspecified
CPT/HCPCS: 36415; 80053; 80061; 82306; 82728; 83036; 83540; 84443; 85025; 87086; 87088